=== PATIENT | female | born 1965 | race African-American/Black ===

== ENCOUNTER 2017-07-03 15:04 | Emergency (ER) | payer MEDICAID ==
--- OUTSIDE RECORDS SUMMARY | 2017-07-03 15:06 | XMS REPORT | Clinical Summary ---
:1965 Author Organization [facility] Address [address] [place] [address] Phone Care Team Providers Name Role Phone Unavailable Primary Care Provider Unavailable Allergies Active Allergy Reactions Severity Noted Date Comments Morphine Rash Low Sulfa (Sulfonamide Antibiotics) Rash Low Current Medications Prescription Sig. Disp. Refills Start Date End Date Status amLODIPine (NORVASC) Take 10 mg by Active 10 MG tablet mouth daily. metFORMIN Take 500 mg by Active (GLUCOPHAGE) 500 MG mouth 2 (two) tablet times daily with breakfast and dinner. DULoxetine Take 30 mg by Active (CYMBALTA) 30 MG mouth every capsule morning. DULoxetine Take 60 mg by Active (CYMBALTA) 60 MG mouth nightly. capsule aspirin 81 MG EC Take 81 mg by Active tablet mouth daily. atorvastatin Take 1 tablet (40 90 tablet 1 09/01/2015 08/31/2016 (LIPITOR) 40 MG mg total) by tablet mouth daily. Active Problems Problem Noted Date CVA (cerebral vascular accident) (HCC) 09/08/2015 Right-sided muscle weakness 09/01/2015 Aphasia 09/01/2015 Type 2 diabetes mellitus (HCC) 08/31/2015 HTN (hypertension) 08/31/2015 Metabolic syndrome 08/31/2015 Morbid obesity ([facility]) 08/31/2015 History of gastric surgery 08/31/2015 History of MA (myocardial infarction) 08/31/2015 H/O section 08/31/2015 Smoking history 08/31/2015 Acute CVA (cerebrovascular accident) ([facility]) 08/30/2015 Social History Tobacco Use Types Packs/Day Years Used Date Never Smoker Alcohol Use Drinks/Week oz/Week Comments No Sex Assigned at Date Recorded Not on file Last Filed Vital Signs Not on file Plan of Treatment Not on file Results RHYTHM STRIP - SCAN (11/22/2016 7:50 AM)after 07/02/2016
--- NOTE | 2017-07-03 15:47 | EKG ---
Test Date: 2017-07-03 Test Time: 15:30:56 Inventory Planner: TAJ MEASUREMENT RESULTS: Intervals: Rate: 67 [place]: 178 QRSD: 102 QT: 458 QTc: 483 [place]: P: 57 IL: 178 QRS: 0 T: 92 INTERPRETIVE STATEMENTS: Normal sinus rhythm Voltage criteria for left ventricular hypertrophy Non specific ST abnormality T wave abnormality, consider lateral ischemia Prolonged QT Abnormal ECG Compared to ECG 05/09/2017 16:43:22 no significant change from previous ECG Electronically Signed On 07-03-17 15:46:33 CDT by Jamal Alvarado
[2017-07-03 15:48] LABS: Absolute Lymphocytes (CBC) 2.3 K/uL (0.7-4.9); Absolute Monocytes 0.3 K/uL (0.1-1.3); Absolute Neutrophil 4.2 K/uL (1.8-8.0); Basophils % 0.9 % (0-1.3); Eosinophils % 1.6 % (0-4.4); Hematocrit 38.9 % (36.0-45.0); Lymphocytes % 32.4 % (15.3-44.8); MCV 84.7 fL (80-100)
[2017-07-03 15:56] LABS: Protime INR 1.06
[2017-07-03 15:57] LABS: Bicarbonate 23 mEq/L (21-31); Glucose Level 94 mg/dL (65-120); Potassium 3.8 mEq/L (3.6-5.0); Sodium Level 140 mEq/L (135-145)
[2017-07-03 16:01] LABS: BUN Blood Urea Nitrogen 13 mg/dL (6-20); Creatine Phosphokinase 176 IU/L (22-269)
--- NOTE | 2017-07-03 16:03 | RAD REPORT ---
EXAM DESCRIPTION: RAD - Chest Single View - 07/03/2017 3:42 pm CLINICAL HISTORY: Chest pain COMPARISON: May 09 TECHNIQUE: AP portable chest image was obtained 1536 hours . FINDINGS: Lungs are clear. Heart and vasculature are normal. No measurable pleural effusion and no p neumothorax. No gross bony abnormality seen. No acute aortic findings suspected. IMPRESSION: No acute cardiopulmonary process. No significant interval change.
[2017-07-03 16:06] LABS: CKMB Creatine Kinase MB 2.3 ng/ml (0.3-4.0)
[2017-07-03] MEDS ORDERED: NITROGLYCERIN 0.4 MG/TAB SL ONE (16:26)
[2017-07-03] MEDS ORDERED: ONDANSETRON 4 MG/2 ML VIAL ONE (16:27)
[2017-07-03] MEDS ORDERED: FENTANYL CITR 100 MCG/2 ML ONE (17:15)
--- NOTE | 2017-07-03 17:54 | ER ---
Nurse's Notes [facility] Name: Che Helton Age: 51 yrs Sex: Female : 1965 Arrival Date: 07/03/2017 Time: 15:08 Bed 30 Private MD: Diagnosis: Chest pain, unspecified Presentation: 07/03 15:12 Presenting complaint: Patient states: chest pain for the past 3 days with sob, worse ch when laying flat. Transition of care: patient was not received from another setting of care. Onset of symptoms was June 30, 2017. Initial Sepsis Screen: Does the patient meet any 2 criteria? No. Patient's initial sepsis screen is negative. Does the patient have a suspected source of infection? No. Patient's initial sepsis screen is negative. Care prior to arrival: None. 15:12 Method Of Arrival: Ambulatory 15:12 Acuity: NELY 3 ch Triage Assessment: 15:15 General: Appears in no apparent distress. comfortable, Behavior is calm, cooperative, ch appropriate for age. Pain: Complains of pain in chest. 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 ch Historical: - Allergies: 15:15 Morphine; ch 15:15 Sulfa (Sulfonamide Antibiotics); ch - Home Meds: 15:15 amlodipine 10 mg tab 1 tab once daily [Active]; metformin 500 mg Oral tab 1 tab 2 times ch per day [Active]; aspirin 81 mg Oral chew 1 tab once daily [Active]; Cymbalta oral 30mg in the morning, 60mg at night oral [Active]; Plavix oral [Active]; carvedilol oral oral [Active]; multivitamin with minerals oral oral [Active]; b 12 [Active]; - PMHx: 15:15 ADD/ADHD; Anxiety; Depression; Diabetes - NIDDM; Hyperlipidemia; Hypertension; ch Myocardial infarction; stroke; 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 - Social history:: Smoking status: Patient uses tobacco products, smokes one-half pack cigarettes per day. Screenin:28 Abuse screen: Denies threats or abuse. Nutritional screening: No deficits noted. mb3 Tuberculosis screening: No symptoms or risk factors identified. Fall Risk IV access (20 points). Total Faulkner Fall Scale indicates No Risk (0-24 pts). Assessment: 16:15 General: Appears in no apparent distress. comfortable, Behavior is calm, cooperative, mb3 appropriate for age. Pain: Complains of pain in chest Pain radiates to left arm Pain currently is 10 out of 10 on a pain scale. Pain began 2-3 days ago. Neuro: No deficits noted. Cardiovascular: Reports chest pain, Heart tones S1 S2 present Capillary refill < 3 seconds Pulses are all present. Rhythm is regular Chest pain. Respiratory: No deficits noted. Airway is patent Breath sounds are clear bilaterally. GI: Abdomen is flat, Bowel sounds present X 4 quads. Abd is soft Abd is non tender X 4 quads Reports nausea. : No signs and/or symptoms were reported regarding the genitourinary system. EENT: No signs and/or symptoms were reported regarding the EENT system. 16:15 Musculoskeletal: No signs and/or symptoms reported regarding the musculoskeletal system.mb3 18:03 Reassessment: Patient and/or family updated on plan of care and expected duration. Pain mb3 level reassessed. Patient is alert, oriented x 3, equal unlabored respirations, skin warm/dry/pink. Patient states feeling better. Patient states symptoms have improved. Vital Signs: 15:15 BP 151 / 79; Pulse 72; Resp 16; Temp 97.2; Pulse Ox 100% on R/A; Weight 95.25 kg; ch Height 5 ft. 3 in. (160.02 cm); Pain 10/10; 16:30 BP 126 / 78; Pulse 83; Resp 16; Pulse Ox 100% ; Pain 10/10; mb3 17:26 BP 140 / 87; Pulse 78; Resp 16; Pulse Ox 97% on R/A; mb3 18:03 BP 139 / 62; Pulse 72; Resp 18; Pulse Ox 97% on R/A; Pain 3/10; mb3 15:15 Body Mass Index 37.20 (95.25 kg, 160.02 cm) ED Course: 15:08 Patient arrived in ED. sb2 15:13 Triage completed. 15:15 Arm band placed on left wrist. Patient placed in an exam room, on a stretcher. 15:21 Berta Morgan FNP-C is [facility]. kb 15:21 Michele Adams MD is Attending Physician. kb 15:30 Patient has correct armband on for positive identification. Placed in gown. Bed in low mb3 position. Call light in reach. Side rails up X 1. director biologics on. Pulse ox on. NIBP on. 15:41 X-ray completed. Portable x-ray completed in exam room. Patient tolerated procedure jb2 well. 15:42 XRAY Chest (1 view) In Process Unspecified. EDMS 15:49 Gentry Vernon, RN is Primary Nurse. mb3 16:15 Inserted saline lock: 20 gauge in left forearm, using aseptic technique. Patient mb3 maintains SpO2 saturation greater than 95% on room air. 17:25 EKG done, by alternative energy technician. reviewed by Michele Adams MD. dt2 18:26 No provider procedures requiring assistance completed. mb3 18:26 IV discontinued, intact, bleeding controlled, No redness/swelling at site. Pressure mb3 dressing applied. Administered Medications: 16:27 Drug: Nitroglycerin 0.4 mg Route: Sublingual; mb3 18:05 Follow up: Response: No adverse reaction mb3 16:30 Drug: Zofran 4 mg Route: IVP; Site: left forearm; mb3 18:05 Follow up: Response: No adverse reaction; Nausea is decreased mb3 17:25 Not Given (Patient Refused): Nitroglycerin 0.4 mg Sublingual once mb3 17:25 Drug: fentaNYL (PF) 50 mcg Route: IVP; Site: left forearm; mb3 18:04 Follow up: Response: No adverse reaction; Pain is decreased mb3 Outcome: 17:53 Discharge ordered by . kb 18:27 Discharged to home ambulatory, with family. mb3 18:27 Condition: stable 18:27 Discharge instructions given to patient, family, Instructed on discharge instructions, follow up and referral plans. Demonstrated understanding of instructions, follow-up care. 18:27 Patient left the ED. mb3 Signatures: Dispatcher [employer] EDMS Berta Morgan, YONATHAN ALVES-Sena Grimes, RN RN Lei Jay jb2 Symone Paez sb2 Jackeline Kaplan dt2 Gentry Vernon, RN RN mb3
--- NOTE | 2017-07-03 17:54 | EDPHYS ---
Physician Documentation [facility] Name: Che Helton Age: 51 yrs Sex: Female : 1965 Arrival Date: 07/03/2017 Time: 15:08 Bed 30 Private MD: ED Physician Michele Adams HPI: 07/03 17:00 This 51 yrs old Black Female presents to ER via Ambulatory with complaints of Chest kb Pain, Shortness Of Breath. 17:00 The patient or guardian reports chest pain that is located primarily in the substernal kb area. Onset: 3 day(s) ago, and became worse today. The pain does not radiate. Associated signs and symptoms: Pertinent positives: shortness of breath. The chest pain is described as aching. Duration: The patient or guardian reports a single episode, that is still ongoing. Modifying factors: The symptoms are alleviated by nothing. the symptoms are aggravated by laying flat. Severity of pain: At its worst the pain was moderate in the emergency department the pain is unchanged. The patient has not experienced similar symptoms in the past. The patient has not recently seen a physician. 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 ch Historical: - Allergies: 15:15 Morphine; ch 15:15 Sulfa (Sulfonamide Antibiotics); ch - Home Meds: 15:15 amlodipine 10 mg tab 1 tab once daily [Active]; metformin 500 mg Oral tab 1 tab 2 times ch per day [Active]; aspirin 81 mg Oral chew 1 tab once daily [Active]; Cymbalta oral 30mg in the morning, 60mg at night oral [Active]; Plavix oral [Active]; carvedilol oral oral [Active]; multivitamin with minerals oral oral [Active]; b 12 [Active]; - PMHx: 15:15 ADD/ADHD; Anxiety; Depression; Diabetes - NIDDM; Hyperlipidemia; Hypertension; ch Myocardial infarction; stroke; 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 - Social history:: Smoking status: Patient uses tobacco products, smokes one-half pack cigarettes per day. ROS: 16:59 Constitutional: Negative for fever, chills, and weight loss, Abdomen/GI: Negative for kb abdominal pain, nausea, vomiting, diarrhea, and constipation, Back: Negative for injury and pain, : Negative for injury, bleeding, discharge, and swelling, MS/Extremity: Negative for injury and deformity, Skin: Negative for injury, rash, and discoloration, Neuro: Negative for headache, weakness, numbness, tingling, and seizure. 16:59 Cardiovascular: Positive for chest pain, Negative for edema, orthopnea, palpitations, paroxysmal nocturnal dyspnea. 16:59 Respiratory: Positive for shortness of breath, Negative for cough, dyspnea on exertion, hemoptysis, orthopnea, pleurisy, sputum production, wheezing. Exam: 16:59 Constitutional: This is a well developed, well nourished patient who is awake, alert, kb and in no acute distress. Head/Face: Normocephalic, atraumatic. ENT: Nares patent. No nasal discharge, no septal abnormalities noted. Tympanic membranes are normal and external auditory canals are clear. Oropharynx with no redness, swelling, or masses, exudates, or evidence of obstruction, uvula midline. Mucous membranes moist. Neck: Trachea midline, no thyromegaly or masses palpated, and no cervical lymphadenopathy. Supple, full range of motion without nuchal rigidity, or vertebral point tenderness. No Meningismus. Chest/axilla: Normal chest wall appearance and motion. Nontender with no deformity. No lesions are appreciated. Cardiovascular: Regular rate and rhythm with a normal S1 and S2. No gallops, murmurs, or rubs. Normal PMI, no JVD. No pulse deficits. Respiratory: Lungs have equal breath sounds bilaterally, clear to auscultation and percussion. No rales, rhonchi or wheezes noted. No increased work of breathing, no retractions or nasal flaring. Abdomen/GI: Soft, non-tender, with normal bowel sounds. No distension or tympany. No guarding or rebound. No evidence of tenderness throughout. Skin: Warm, dry with normal turgor. Normal color with no rashes, no lesions, and no evidence of cellulitis. MS/ Extremity: Pulses equal, no cyanosis. Neurovascular intact. Full, normal range of motion. Neuro: Awake and alert, GCS 15, oriented to person, place, time, and situation. Cranial nerves II-XII grossly intact. Motor strength 5/5 in all extremities. Sensory grossly intact. Cerebellar exam normal. Normal gait. Vital Signs: 15:15 BP 151 / 79; Pulse 72; Resp 16; Temp 97.2; Pulse Ox 100% on R/A; Weight 95.25 kg; ch Height 5 ft. 3 in. (160.02 cm); Pain 10/10; 16:30 BP 126 / 78; Pulse 83; Resp 16; Pulse Ox 100% ; Pain 10/10; mb3 17:26 BP 140 / 87; Pulse 78; Resp 16; Pulse Ox 97% on R/A; mb3 18:03 BP 139 / 62; Pulse 72; Resp 18; Pulse Ox 97% on R/A; Pain 3/10; mb3 15:15 Body Mass Index 37.20 (95.25 kg, 160.02 cm) ch MDM: 15:21 Patient medically screened. kb 16:59 Data reviewed: vital signs, nurses notes. Data interpreted: Pulse oximetry: on room air kb is 100 %. Interpretation: normal. 17:01 The patient was not given aspirin in the Emergency Department. Patient reports taking kb aspirin within the past 24 hours. Counseling: I had a detailed discussion with the patient and/or guardian regarding: the historical points, exam findings, and any diagnostic results supporting the discharge/admit diagnosis, lab results, radiology results, the need for further work-up and treatment in the hospital. ED course: Pt would rather go home, does not want to be admitted. Will repeat EKG and cardiac enzymes. . 17:54 ED course: Pt reports that she feels better after fentanyl.. kb 07/03 15:22 Order name: Basic Metabolic Panel kb 07/03 15:22 Order name: BNP kb 07/03 15:22 Order name: CBC with Diff; Complete Time: 15:50 kb 07/03 15:22 Order name: Ckmb; Complete Time: 16:07 kb 07/03 15:22 Order name: CPK; Complete Time: 16:07 kb 07/03 15:22 Order name: Magnesium; Complete Time: 16:07 kb 07/03 15:22 Order name: PT-INR; Complete Time: 16:12 kb 07/03 15:22 Order name: Ptt, Activated; Complete Time: 16:12 kb 07/03 15:22 Order name: Troponin (emerg Dept Use Only); Complete Time: 16:05 kb 07/03 15:22 Order name: XRAY Chest (1 view); Complete Time: 16:04 kb 07/03 15:23 Order name: Basic Metabolic Panel; Complete Time: 16:07 EDMS 07/03 15:23 Order name: BNP B-Type Natriuretic Peptide; Complete Time: 16:20 EDMS 07/03 17:03 Order name: Troponin (emerg Dept Use Only); Complete Time: 17:53 kb 07/03 15:22 Order name: EKG; Complete Time: 15:23 kb 07/03 15:22 Order name: Cardiac monitoring; Complete Time: 16:00 kb 07/03 15:22 Order name: EKG - Nurse/Tech; Complete Time: 16:00 kb 07/03 15:22 Order name: IV Saline Lock; Complete Time: 15:59 kb 07/03 15:22 Order name: Labs collected and sent; Complete Time: 15:59 kb 07/03 15:22 Order name: O2 Per Protocol; Complete Time: 15:59 kb 07/03 15:22 Order name: O2 Sat Monitoring; Complete Time: 15:59 kb 07/03 15:22 Order name: Urine Dipstick-Ancillary (obtain specimen) kb 07/03 17:03 Order name: EKG; Complete Time: 17:03 kb 07/03 17:03 Order name: EKG - Nurse/Tech; Complete Time: 17:26 kb Administered Medications: 16:27 Drug: Nitroglycerin 0.4 mg Route: Sublingual; mb3 18:05 Follow up: Response: No adverse reaction mb3 16:30 Drug: Zofran 4 mg Route: IVP; Site: left forearm; mb3 18:05 Follow up: Response: No adverse reaction; Nausea is decreased mb3 17:25 Not Given (Patient Refused): Nitroglycerin 0.4 mg Sublingual once mb3 17:25 Drug: fentaNYL (PF) 50 mcg Route: IVP; Site: left forearm; mb3 18:04 Follow up: Response: No adverse reaction; Pain is decreased mb3 Disposition: 22:34 Co-signature as Attending Physician, Michele Adams MD I agree with the assessment and kdr plan of care. Disposition: 07/03/17 17:53 Discharged to Home. Impression: Chest pain, unspecified. - Condition is Stable. - Discharge Instructions: Nonspecific Chest Pain, [id number]. - Medication Reconciliation Form, Thank You Letter, Antibiotic Education, Prescription Opioid Use form. - Follow up: Emergency Department; When: As needed; Reason: Worsening of condition. Follow up: Private Physician; When: 2 - 3 days; Reason: Recheck today's complaints, Continuance of care, Re-evaluation by your physician. Signatures: Dispatcher [employer] EDWY Berta Morgan, KETTLE OPERATOR HEAD-C KETTLE OPERATOR HEAD-Ckb Sena Beck, RN RN Michele Adams MD MD [facility] Gentry Vernon RN RN mb3 Corrections: (The following items were deleted from the chart) 18:27 17:53 07/03/2017 17:53 Discharged to Home. Impression: Chest pain, unspecified. mb3 Condition is Stable. Forms are Medication Reconciliation Form, Thank You Letter, Antibiotic Education, Prescription Opioid Use. Follow up: Emergency Department; When: As needed; Reason: Worsening of condition. Follow up: Private Physician; When: 2 - 3 days; Reason: Recheck today's complaints, Continuance of care, Re-evaluation by your physician. kb
[2017-07-03 18:40] VITALS: TEMP 97.2
[2017-07-03 18:43] VITALS: O2SAT 97
[2017-07-03 18:45] VITALS: BP 139/62
--- NOTE | 2017-07-04 06:06 | EKG ---
Test Date: 2017-07-03 Test Time: 17:11:28 Economics Faculty Member: TAJ MEASUREMENT RESULTS: Intervals: Rate: 73 [place]: 170 QRSD: 80 QT: 452 QTc: 497 [place]: P: 63 [place]: 170 QRS: -5 T: 81 INTERPRETIVE STATEMENTS: Normal sinus rhythm Voltage criteria for left ventricular hypertrophy Prolonged QT Abnormal ECG Compared to ECG 07/03/2017 15:30:56 ST (T wave) deviation no longer present T-wave abnormality no longer present Possible ischemia no longer present Electronically Signed On 07-04-17 06:05:24 CDT by Jamal Alvarado
== END 2017-07-03 18:27 | disposition home or self-care (01) ==
LOC: ER 15:04
DX: R07.9 Chest pain, unspecified (principal); I10 Essential (primary) hypertension; E11.9 Type 2 diabetes mellitus without complications; E78.5 Hyperlipidemia, unspecified; I25.2 Old myocardial infarction; F17.210 Nicotine dependence, cigarettes, uncomplicated; F41.9 Anxiety disorder, unspecified; F32.9 Major depressive disorder, single episode, unspecified; Z79.01 Long term (current) use of anticoagulants; Z79.82 Long term (current) use of aspirin; Z88.2 Allergy status to sulfonamides; Z88.5 Allergy status to narcotic agent
CPT/HCPCS: 36415; 71045; 80048; 82550; 82553; 83735; 83880; 84484; 85025; 85610; 85730; 93005; 96374; 96375; 99285; J2405; J3010

== ENCOUNTER 2017-08-21 21:43 | Emergency (ER) | payer MEDICAID ==
--- OUTSIDE RECORDS SUMMARY | 2017-08-21 21:45 | XMS REPORT | Clinical Summary ---
:1965 Author Organization [facility] Address [address] [place] [address] Phone Care Team Providers Name Role Phone [...] (hypertension) 08/31/2015 Metabolic syndrome 08/31/2015 Morbid obesity ([facility]) 08/31/2015 History of gastric surgery 08/31/2015 History of [place] (myocardial infarction) 08/31/2015 H/O section 08/31/2015 Smoking history 08/31/2015 Acute CVA (cerebrovascular accident) ([facility]) 08/30/2015 Social History Tobacco Use Types Packs/Day Years Used Date Never Smoker Alcohol Use Drinks/Week oz/Week Comments No Sex Assigned at Date Recorded Not on file Last Filed Vital Signs Not on file Plan of Treatment Not on file Results RHYTHM STRIP - SCAN (11/22/2016 7:50 AM)after 08/20/2016
[2017-08-21 22:37] LABS: Absolute Lymphocytes (CBC) 3.4 K/uL (0.7-4.9); Absolute Monocytes 0.5 K/uL (0.1-1.3); Absolute Neutrophil 9.3 K/uL (1.8-8.0); Basophils % 0.8 % (0-1.3); Eosinophils % 0.7 % (0-4.4); Hematocrit 38.4 % (36.0-45.0); Lymphocytes % 25.3 % (15.3-44.8); MCH 28.3 pg (27.0-35.0); MCV 84.7 fL (80-100); MPV 9.2 fL (7.6-11.3); RBC Red Blood Cell Count 4.54 M/uL (3.86-4.86)
[2017-08-21 22:38] LABS: Protime INR 1.03
[2017-08-21 22:49] LABS: Potassium 3.9 mmol/L (3.5-5.1)
[2017-08-21] MEDS ORDERED: NA CHLORIDE 0.9% 50 ML IV ONE (22:57)
[2017-08-21] MEDS ORDERED: MORPHINE 4 MG/ML SYR ONE (22:57)
--- NOTE | 2017-08-22 01:35 | EDPHYS ---
Physician Documentation [facility] Name: Che Helton Age: 51 yrs Sex: Female : 1965 Arrival Date: 08/21/2017 Time: 21:46 Bed 28 Private MD: Davis Cosme E ED Physician Tom Domínguez HPI: 08/22 01:27 This 51 yrs old Black Female presents to ER via EMS with complaints of Chest Pain > 30 gs y/o. 01:27 The patient or guardian reports chest pain that is located primarily in the anterior gs chest wall. Onset: just prior to arrival, 1 hour(s) ago. The pain does not radiate. Associated signs and symptoms: Pertinent negatives: diaphoresis, nausea, vomiting. The chest pain is described as a heaviness. Duration: The patient or guardian reports multiple episodes, that are intermittent, that wax and wane, with no pattern. Severity of pain: At its worst the pain was moderate in the emergency department the pain has improved markedly. The patient has experienced similar episodes in the past, a few times, says recent cath negative. 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 - Hysterectomy mb3 Historical: - Allergies: 21:54 Sulfa (Sulfonamide Antibiotics); mb3 - Home Meds: 21:54 amlodipine 25 mg tab 1 tab once daily [Active]; aspirin 81 mg Oral chew 1 tab once mb3 daily [Active]; Cymbalta 30mg in the morning, 60mg at night Oral [Active]; multivitamin with minerals Oral [Active]; metformin 500 mg Oral tab 1 tab 2 times per day [Active]; Plavix 150 mg Oral 1 tab once daily [Active]; - PMHx: 21:54 ADD/ADHD; Anxiety; Depression; Diabetes - NIDDM; Hyperlipidemia; Hypertension; stroke; mb3 Myocardial infarction; - PSHx: 21:54 Hysterectomy; Gastric Bypass; mb3 - Immunization history:: Adult Immunizations up to date. - Social history:: Smoking status: Patient uses tobacco products, smokes one-half pack cigarettes per day. - Ebola Screening: : Patient denies travel to an Ebola-affected area in the 21 days before illness onset No symptoms or risks identified at this time. ROS: 08/22 01:27 All other systems are negative. gs Exam: 01:27 Head/Face: Normocephalic, atraumatic. Eyes: Pupils equal round and reactive to light, gs extra-ocular motions intact. Lids and lashes normal. Conjunctiva and sclera are non-icteric and not injected. Cornea within normal limits. Periorbital areas with no swelling, redness, or edema. ENT: Nares patent. No nasal discharge, no septal abnormalities noted. Tympanic membranes are normal and external auditory canals are clear. Oropharynx with no redness, swelling, or masses, exudates, or evidence of obstruction, uvula midline. Mucous membranes moist. Neck: Trachea midline, no thyromegaly or masses palpated, and no cervical lymphadenopathy. Supple, full range of motion without nuchal rigidity, or vertebral point tenderness. No Meningismus. Chest/axilla: Normal chest wall appearance and motion. Nontender with no deformity. No lesions are appreciated. Cardiovascular: Regular rate and rhythm with a normal S1 and S2. No gallops, murmurs, or rubs. Normal PMI, no JVD. No pulse deficits. Respiratory: Lungs have equal breath sounds bilaterally, clear to auscultation and percussion. No rales, rhonchi or wheezes noted. No increased work of breathing, no retractions or nasal flaring. Abdomen/GI: Soft, non-tender, with normal bowel sounds. No distension or tympany. No guarding or rebound. No evidence of tenderness throughout. Back: No spinal tenderness. No costovertebral tenderness. Full range of motion. Skin: Warm, dry with normal turgor. Normal color with no rashes, no lesions, and no evidence of cellulitis. MS/ Extremity: Pulses equal, no cyanosis. Neurovascular intact. Full, normal range of motion. Neuro: Awake and alert, GCS 15, oriented to person, place, time, and situation. Cranial nerves II-XII grossly intact. Motor strength 5/5 in all extremities. Sensory grossly intact. Cerebellar exam normal. Normal gait. : Constitutional: The patient appears alert, awake. : ECG was reviewed by the Attending Physician. Vital Signs: 08/21 21:55 BP 119 / 66; Pulse 66; Resp 18; Temp 98.6; Pulse Ox 99% on R/A; Weight 97.52 kg; Height mb3 5 ft. 3 in. (160.02 cm); Pain 9/10; 23:40 BP 128 / 67; Pulse 58; Resp 18; Pulse Ox 100% on R/A; 3 08/22 00:22 BP 141 / 67; Pulse 58; Resp 18; Pulse Ox 100% on R/A; 3 01:50 BP 142 / 69; Pulse 62; Resp 18; Pulse Ox 100% on R/A; Pain 0/10; 3 08/21 21:55 Body Mass Index 38.09 (97.52 kg, 160.02 cm) [facility] MDM: 08/21 22:03 Patient medically screened. 08/22 01:27 Differential diagnosis: abnormal EKG, acute myocardial infarction, chest wall pain, gs pleurisy. Data reviewed: vital signs, nurses notes. Response to treatment: the patient's symptoms have resolved after treatment, and as a result, I will discharge patient. 08/21 22:04 Order name: Basic Metabolic Panel; Complete Time: 23:14 08/21 22:04 Order name: CBC with Diff; Complete Time: 23:14 08/21 22:04 Order name: PT-INR; Complete Time: 23:14 08/21 22:04 Order name: Troponin (emerg Dept Use Only); Complete Time: 23:14 08/21 22:04 Order name: XRAY Chest (1 view) 08/21 23:36 Order name: Troponin (emerg Dept Use Only); Complete Time: 01:20 08/21 22:04 Order name: EKG; Complete Time: 22:04 08/21 22:04 Order name: Cardiac monitoring; Complete Time: 22:14 08/21 22:04 Order name: EKG - Nurse/Tech; Complete Time: 22:14 08/21 22:04 Order name: IV Saline Lock; Complete Time: 22:14 08/21 22:04 Order name: Labs collected and sent; Complete Time: 22:14 08/21 22:04 Order name: O2 Per Protocol; Complete Time: 22:14 08/21 22:04 Order name: O2 Sat Monitoring; Complete Time: 22:14 EC: Rate is 69 beats/min. Rhythm is regular. [place] interval is normal. QRS interval is normal. QT interval is prolonged. Clinical impression: NSR w/ Non-specific ST/T Changes. No change from previous ECG on July 03, 2017. Interpreted by me. Administered Medications: 08/21 23:02 Drug: morphine 4 mg Route: IVP; Site: left forearm; mb3 08/22 01:49 Follow up: Response: No adverse reaction mb3 Disposition: 08/22/17 01:34 Discharged to Home. Impression: Chest pain, unspecified. - Condition is Stable. - Discharge Instructions: Nonspecific Chest Pain, Managing Your High Blood Pressure. - Medication Reconciliation Form, Thank You Letter, Antibiotic Education, Prescription Opioid Use, Family Work Release form. - Follow up: Private Physician; When: 1 - 2 days; Reason: Re-evaluation by your physician. Signatures: Dispatcher [employer] EDMS Tom Domínguez MD MD Gentry Vernon RN RN mb3 Corrections: (The following items were deleted from the chart) 01:52 01:34 08/22/2017 01:34 Discharged to Home. Impression: Chest pain, unspecified. mb3 Condition is Stable. Forms are Medication Reconciliation Form, Thank You Letter, Antibiotic Education, Prescription Opioid Use. Follow up: Private Physician; When: 1 - 2 days; Reason: Re-evaluation by your physician. gs
--- NOTE | 2017-08-22 01:35 | ER ---
Nurse's Notes [facility] Name: Che Helton Age: 51 yrs Sex: Female : 1965 Arrival Date: 08/21/2017 Time: 21:46 Bed 28 Private MD: Davis Cosme E Diagnosis: Chest pain, unspecified Presentation: 08/21 21:47 Presenting complaint: Patient states: Chest pain started at 2100, radiating to left mb3 arm, does c/o nausea at the time of onset, ems gave meds. Transition of care: patient was not received from another setting of care. Onset of symptoms was August 21, 2017 at 21:00. Risk Assessment: Do you want to hurt yourself or someone else? Patient reports no desire to harm self or others. Initial Sepsis Screen: Does the patient meet any 2 criteria? No. Patient's initial sepsis screen is negative. Does the patient have a suspected source of infection? No. Patient's initial sepsis screen is negative. Care prior to arrival: Medication(s) given: zofran 4 mg, Morphine 4 mg IV initiated. 20 GA, in the left forearm, Glucose check: 111. 21:47 Method Of Arrival: EMS: [facility] mb3 21:47 Acuity: NELY 3 mb3 Triage Assessment: 21:57 General: Appears uncomfortable, obese, well groomed, Behavior is calm, cooperative, mb3 appropriate for age. Pain: Complains of pain in chest Pain radiates to left arm Pain currently is 9 out of 10 on a pain scale. EENT: No signs and/or symptoms were reported regarding the EENT system. Neuro: Level of Consciousness is awake, alert, obeys commands, Oriented to person, place, time, situation, Appropriate for age. Cardiovascular: Reports chest pain, nausea, Heart tones S1 S2 present Capillary refill < 3 seconds Patient's skin is warm and dry. Pulses are all present. Rhythm is regular. Respiratory: No deficits noted. Airway is patent Respiratory effort is even, unlabored, Respiratory pattern is regular, symmetrical, Breath sounds are clear bilaterally. GI: Abdomen is round obese, Bowel sounds present X 4 quads. Abd is soft and non tender X 4 quads. Reports nausea. : No signs and/or symptoms were reported regarding the genitourinary system. Derm: No signs and/or symptoms reported regarding the dermatologic system. Musculoskeletal: No signs and/or symptoms reported regarding the musculoskeletal system. 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 - Hysterectomy mb3 Historical: - Allergies: 21:54 Sulfa (Sulfonamide Antibiotics); mb3 - Home Meds: 21:54 amlodipine 25 mg tab 1 tab once daily [Active]; aspirin 81 mg Oral chew 1 tab once mb3 daily [Active]; Cymbalta 30mg in the morning, 60mg at night Oral [Active]; multivitamin with minerals Oral [Active]; metformin 500 mg Oral tab 1 tab 2 times per day [Active]; Plavix 150 mg Oral 1 tab once daily [Active]; - PMHx: 21:54 ADD/ADHD; Anxiety; Depression; Diabetes - NIDDM; Hyperlipidemia; Hypertension; stroke; mb3 Myocardial infarction; - PSHx: 21:54 Hysterectomy; Gastric Bypass; mb3 - Immunization history:: Adult Immunizations up to date. - Social history:: Smoking status: Patient uses tobacco products, smokes one-half pack cigarettes per day. - Ebola Screening: : Patient denies travel to an Ebola-affected area in the 21 days before illness onset No symptoms or risks identified at this time. Screenin:07 Abuse screen: Denies threats or abuse. Nutritional screening: No deficits noted. mb3 Tuberculosis screening: No symptoms or risk factors identified. Fall Risk None identified. Assessment: 22:04 Reassessment: see triage assessment. Pain: Pain began suddenly, 1 hour ago. mb3 23:45 Reassessment: Patient and/or family updated on plan of care and expected duration. Pain mb3 level reassessed. Patient is alert, oriented x 3, equal unlabored respirations, skin warm/dry/pink. Patient states feeling better. Patient states symptoms have improved. 08/22 00:23 Reassessment: Patient and/or family updated on plan of care and expected duration. Pain mb3 level reassessed. Patient is alert, oriented x 3, equal unlabored respirations, skin warm/dry/pink. Patient states symptoms have improved. Vital Signs: 08/21 21:55 BP 119 / 66; Pulse 66; Resp 18; Temp 98.6; Pulse Ox 99% on R/A; Weight 97.52 kg; Height mb3 5 ft. 3 in. (160.02 cm); Pain 9/10; 23:40 BP 128 / 67; Pulse 58; Resp 18; Pulse Ox 100% on R/A; mb3 08/22 00:22 BP 141 / 67; Pulse 58; Resp 18; Pulse Ox 100% on R/A; mb3 01:50 BP 142 / 69; Pulse 62; Resp 18; Pulse Ox 100% on R/A; Pain 0/10; mb3 08/21 21:55 Body Mass Index 38.09 (97.52 kg, 160.02 cm) mb3 ED Course: 08/21 21:46 Patient arrived in ED. mb3 21:50 Triage completed. mb3 22:03 Tom Domínguez MD is Attending Physician. gs 22:07 Patient has correct armband on for positive identification. Bed in low position. Call mb3 light in reach. Side rails up X 1. personnel monitor on. Pulse ox on. NIBP on. 22:07 Maintain EMS IV. Dressing intact. Good blood return noted. Site clean \T\ dry. Gauge \T\ mb 3 site: 20 ga to left forearm. Patient maintains SpO2 saturation greater than 95% on room air. 22:13 Gentry Vernon, JULIEN is Primary Nurse. mb3 22:14 XRAY Chest (1 view) Sent. mb3 22:18 Davis Cosme MD is Private Physician. am2 22:18 X-ray completed. Portable x-ray completed in exam room. Patient tolerated procedure kc2 well. 22:19 XRAY Chest (1 view) In Process Unspecified. EDUT 08/22 01:51 Arm band placed on right wrist. mb3 01:51 No provider procedures requiring assistance completed. IV discontinued, intact, mb3 bleeding controlled, No redness/swelling at site. Pressure dressing applied. Administered Medications: 08/21 23:02 Drug: morphine 4 mg Route: IVP; Site: left forearm; mb3 08/22 01:49 Follow up: Response: No adverse reaction mb3 Outcome: 01:34 Discharge ordered by . gs 01:49 Discharged to home ambulatory, with family. mb3 01:49 Condition: stable 01:49 Discharge instructions given to patient, Instructed on discharge instructions, follow up and referral plans. Demonstrated understanding of instructions, follow-up care. 01:52 Patient left the ED. mb3 Signatures: Dispatcher [employer] EDUT Senia Manzanares kc2 Katey Donis am2 Tom Domínguez MD MD gs Gnetry Vernon, JULIEN RN mb3
[2017-08-22 01:55] VITALS: TEMP 98.6
[2017-08-22 01:57] VITALS: O2SAT 100
[2017-08-22 01:59] VITALS: BP 142/69
--- NOTE | 2017-08-22 06:54 | EKG ---
Test Date: 2017-08-21 Test Time: 21:46:07 Business Services Director: MERRILL MEASUREMENT RESULTS: Intervals: Rate: 69 CA: 152 QRSD: 90 QT: 458 QTc: 490 Dresher: P: 58 CA: 152 QRS: -10 T: 95 INTERPRETIVE STATEMENTS: Normal sinus rhythm Possible Left atrial enlargement Left ventricular hypertrophy T wave abnormality, consider lateral ischemia Abnormal ECG Compared to ECG 07/03/2017 17:11:28 T-wave abnormality now present Possible ischemia now present Prolonged QT interval no longer present Electronically Signed On 08-22-17 06:54:06 CDT by Jamal Alvarado
--- NOTE | 2017-08-22 08:14 | RAD REPORT ---
EXAM DESCRIPTION: RAD - Chest Single View - 08/21/2017 10:20 pm CLINICAL HISTORY: Chest pain radiating to the left arm COMPARISON: July 03 TECHNIQUE: AP portable chest image was obtained 2208 hours . FINDINGS: Lungs are clear. Heart is upper normal. Pulmonary vasculature within normal limits. Heart size is fractionally increased over the comparison. No measurable pleural effusion and no pneumothora x. No gross bony abnormality seen. No acute aortic findings suspected. IMPRESSION: No acute cardiopulmonary process. Heart size is fractionally increased over comparison. No other findings of failure or volume overload .
== END 2017-08-22 01:52 | disposition home or self-care (01) ==
LOC: ER 21:43
DX: R07.9 Chest pain, unspecified (principal); Z88.2 Allergy status to sulfonamides; I25.2 Old myocardial infarction; F17.210 Nicotine dependence, cigarettes, uncomplicated; I10 Essential (primary) hypertension; E11.9 Type 2 diabetes mellitus without complications; Z79.84 Long term (current) use of oral hypoglycemic drugs; E78.5 Hyperlipidemia, unspecified
CPT/HCPCS: 36415; 71045; 80048; 84484; 85025; 85610; 93005; 96374; 99285

== ENCOUNTER 2017-11-04 19:37 | Observation (INO) | payer MEDICAID ==
--- OUTSIDE RECORDS SUMMARY | 2017-11-04 19:39 | XMS REPORT | Clinical Summary ---
:1965 Author Organization [facility] Address [address] [place] [address] Phone Care Team Providers Name Role Phone Unavailable Primary Care Provider Unavailable Allergies Active Allergy Reactions Severity Noted Date Comments Morphine Rash Low Sulfa (Sulfonamide Antibiotics) Rash Low Current Medications Prescription Sig. Disp. Refills Start Date End Date Status amLODIPine (NORVASC) 10 Take 10 mg by mouth Active MG tablet daily. metFORMIN (GLUCOPHAGE) Take 500 mg by mouth Active 500 MG tablet 2 (two) times daily with breakfast and dinner. DULoxetine (CYMBALTA) 30 Take 30 mg by mouth Active MG capsule every morning. DULoxetine (CYMBALTA) 60 Take 60 mg by mouth Active MG capsule nightly. aspirin 81 MG EC tablet Take 81 mg by mouth Active daily. Active Problems Problem Noted Date CVA (cerebral vascular accident) (HCC) 09/08/2015 Right-sided muscle weakness 09/01/2015 Aphasia 09/01/2015 Type 2 diabetes mellitus (HCC) 08/31/2015 HTN (hypertension) 08/31/2015 Metabolic syndrome 08/31/2015 Morbid obesity (HCC) 08/31/2015 History of gastric surgery 08/31/2015 History of W[place] (myocardial infarction) 08/31/2015 H/O section 08/31/2015 Smoking history 08/31/2015 Acute CVA (cerebrovascular accident) (HCC) 08/30/2015 Social History Tobacco Use Types Packs/Day Years Used Date Never Smoker Alcohol Use Drinks/Week oz/Week Comments No Sex Assigned at Date Recorded Not on file Last Filed Vital Signs Not on file Plan of Treatment Not on file Results RHYTHM STRIP - SCAN (11/22/2016 7:50 AM)after 11/03/2016
[2017-11-04] MEDS ORDERED: ONDANSETRON 4 MG/2 ML VIAL ONE (20:53)
[2017-11-04] MEDS ORDERED: MORPHINE 4 MG/ML SYR ONE (20:53)
--- NOTE | 2017-11-04 21:00 | RAD REPORT ---
EXAM DESCRIPTION: RAD - Chest Single View - 11/04/2017 8:54 pm CLINICAL HISTORY: Cough;Chest pain Chest pain. COMPARISON: Chest Single View dated 08/21/2017; Chest Single View dated 07/03/2017; Chest Single View d ated 05/09/2017; Chest Single View dated 03/12/2017 FINDINGS: Portable technique limits examination quality. Ill-defined opacity is present in the right lung base, suspicious for developing pneumonia. The heart is mildly prominent size. No displaced fractures. IMPRESSION: Mild right lung base pulmonary opacity is suspicious for a developing pneumonia.
[2017-11-04 21:02] LABS: Absolute Lymphocytes (CBC) 2.3 K/uL (0.7-4.9); Absolute Monocytes 0.3 K/uL (0.1-1.3); Absolute Neutrophil 4.1 K/uL (1.8-8.0); Basophils % 0.7 % (0-1.3); Eosinophils % 2.5 % (0-4.4); Lymphocytes % 33.6 % (15.3-44.8); MCH 28.9 pg (27.0-35.0); MCV 86.7 fL (80-100); MPV 8.7 fL (7.6-11.3); Monocytes % 4.1 % (3.3-12.3); RBC Red Blood Cell Count 4.39 M/uL (3.86-4.86)
[2017-11-04 21:06] LABS: Protime INR 0.97
--- NOTE | 2017-11-04 21:08 | ER ---
Nurse's Notes [facility] Name: Che Helton Age: 51 yrs Sex: Female : 1965 Arrival Date: 11/04/2017 Time: 19:41 Bed 30 Private MD: Cassidy Lnua C Diagnosis: Chest pain on breathing;Fever, unspecified;Pneumonia due to other specified bacteria;Type 2 diabetes mellitus Presentation: 11/04 19:48 Presenting complaint: Patient states: that she is having cough, congestion with green sputum, runny nose, sneezing, left ear pain, sore throat and fever. States that she is having chest pain with deep breathing and also a headache. Transition of care: patient was not received from another setting of care. Onset of symptoms was November 01, 2017. Risk Assessment: Do you want to hurt yourself or someone else? Patient reports no desire to harm self or others. Initial Sepsis Screen: Does the patient meet any 2 criteria? No. Patient's initial sepsis screen is negative. Does the patient have a suspected source of infection? No. Patient's initial sepsis screen is negative. Care prior to arrival: Medication(s) given: Tylenol, last at 1830. 19:48 Method Of Arrival: Ambulatory 19:48 Acuity: NELY 3 Triage Assessment: 19:52 Headache History: The patient has had previous headaches and this one is similar to previous episodes. General: Appears uncomfortable, Behavior is calm, cooperative, appropriate for age. Pain: Complains of pain in right ear, left ear, chest and neck Pain currently is 10 out of 10 on a pain scale. Quality of pain is described as aching, Pain began 2-3 days ago. Is continuous, Also complains of nausea. EENT: Reports pain in left ear and right ear and throat. Neuro: Level of Consciousness is awake, alert, obeys commands, Oriented to person, place, time, situation, Reports headache. Cardiovascular: Reports chest pain, with deep breathing only. Respiratory: Reports shortness of breath cough that is pain with cough pain with respiration Airway is patent Trachea midline Respiratory effort is even, unlabored, Respiratory pattern is regular, symmetrical. GI: Reports diarrhea, nausea, vomiting. : No deficits noted. Derm: Skin is pink, warm \T\ dry. Musculoskeletal: Circulation, motion, and sensation intact. Capillary refill < 3 seconds. 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 fc Historical: - Allergies: :52 Sulfa (Sulfonamide Antibiotics); fc - Home Meds: :52 amlodipine 25 mg tab 1 tab once daily [Active]; aspirin 81 mg Oral chew 1 tab once fc daily [Active]; Cymbalta 30mg in the morning, 60mg at night Oral [Active]; metformin 500 mg Oral tab 1 tab 2 times per day [Active]; multivitamin with minerals Oral daily [Active]; Plavix 75 mg oral tab 1 tab once daily [Active]; Seroquel 25 mg Oral tab 1 tab nightly [Active]; - PMHx: 19:52 ADD/ADHD; Anxiety; Depression; Diabetes - NIDDM; Hyperlipidemia; Hypertension; stroke; fc Myocardial infarction; - PSHx: :52 Hysterectomy; Gastric Bypass; left foot surg; ; Knee surgery; fc - Immunization history:: Last tetanus immunization: unknown. - Social history:: Smoking status: Patient uses tobacco products, smokes one-half pack cigarettes per day. - Ebola Screening: : Patient negative for fever greater than or equal to 101.5 degrees Fahrenheit, and additional compatible Ebola Virus Disease symptoms Patient denies exposure to infectious person Patient denies travel to an Ebola-affected area in the 21 days before illness onset. Screenin:08 Abuse screen: Denies threats or abuse. Denies injuries from another. Nutritional kr2 screening: No deficits noted. Tuberculosis screening: No symptoms or risk factors identified. Fall Risk None identified. Assessment: 20:00 General: Appears in no apparent distress. uncomfortable, well groomed, Behavior is kr2 calm, cooperative. Pain: Complains of pain in chest Pain does not radiate. Pain currently is 4 out of 10 on a pain scale. at worst was 8 out of 10 on a pain scale. Quality of pain is described as sharp, Is intermittent, Alleviated by rest, Aggravated by laughing, breathing. Neuro: Level of Consciousness is awake, alert, obeys commands, Oriented to person, place, time, situation. Cardiovascular: Capillary refill < 3 seconds in bilateral fingers Patient's skin is warm and dry. Respiratory: Reports cough that is productive, pain with cough pain with respiration Airway is patent Respiratory effort is even, unlabored, Respiratory pattern is regular, symmetrical. GI: Abdomen is non-distended, obese. : Denies burning with urination. EENT: Oral mucosa is moist. Derm: Skin is intact, is healthy with good turgor, Skin is pink, warm \T\ dry. Musculoskeletal: Circulation, motion, and sensation intact. 21:00 Reassessment: Patient appears in no apparent distress at this time. Patient and/or kr2 family updated on plan of care and expected duration. Pain level reassessed. Patient is alert, oriented x 3, equal unlabored respirations, skin warm/dry/pink. Patient states feeling better. Patient states symptoms have improved. 21:51 Reassessment: Patient appears in no apparent distress at this time. Patient and/or kr2 family updated on plan of care and expected duration. Pain level reassessed. Patient is alert, oriented x 3, equal unlabored respirations, skin warm/dry/pink. Patient taken to CT via stretcher by bench technician, Rocephin infusion paused. 22:48 Reassessment: Patient appears in no apparent distress at this time. Patient and/or kr2 family updated on plan of care and expected duration. Pain level reassessed. Patient is alert, oriented x 3, equal unlabored respirations, skin warm/dry/pink. Patient denies pain at this time. Vital Signs: 19:54 BP 132 / 74; Pulse 72; Resp 20; Temp 98.7(O); Pulse Ox 100% on R/A; Weight 99.79 kg fc (R); Height 5 ft. 3 in. (160.02 cm) (R); Pain 10/10; 21:00 BP 166 / 66; Pulse 70; Resp 17; Pulse Ox 97% on R/A; kr2 22:38 BP 142 / 76; Pulse 72; Resp 18; Temp 98.6; Pulse Ox 97% on R/A; kr2 19:54 Body Mass Index 38.97 (99.79 kg, 160.02 cm) ED Course: 19:41 Patient arrived in ED. am2 19:41 Cassidy Luna FNP is Private Physician. am2 19:50 Triage completed. 19:54 Arm band placed on Patient placed in an exam room, on a stretcher. 20:00 Patient has correct armband on for positive identification. Placed in gown. Bed in low kr2 position. Call light in reach. Side rails up X 1. rn recovery on. Pulse ox on. NIBP on. Door closed. Lights dimmed. Warm blanket given. Head of bed elevated. 20:03 Wang Olivas MD is Attending Physician. [facility] 20:40 EKG done, by ED staff, reviewed by Wang Olivas MD. Inserted saline lock: 22 gauge in kr2 left antecubital area, using aseptic technique. Blood collected. 20:54 XRAY Chest (1 view) In Process Unspecified. EDMS 20:55 X-ray completed. Portable x-ray completed in exam room. Patient tolerated procedure bb2 well. 21:00 Urine collected: clean catch specimen, clear. kr2 21:06 True Vazquez MD is Hospitalizing Provider. [facility] 21:23 Venus Tran RN is Primary Nurse. kr2 22:01 CT completed. Patient tolerated procedure well. Patient moved to CT. Patient moved back jg6 from CT. 22:43 No provider procedures requiring assistance completed. Patient admitted, IV remains in kr2 place. Administered Medications: 20:55 Drug: Zofran 4 mg Route: IVP; Site: left antecubital; kr2 21:48 Follow up: Response: No adverse reaction kr2 20:58 Drug: morphine 4 mg Route: IVP; Site: left antecubital; kr2 21:48 Follow up: Response: No adverse reaction; Pain is decreased kr2 21:40 Drug: Rocephin - (cefTRIAXone) 2 grams Route: IVPB; Infused Over: 30 mins; Site: left kr2 antecubital; 22:40 Follow up: Response: No adverse reaction; IV Status: Completed infusion kr2 22:41 Drug: Zithromax 500 mg Route: IVPB; Infused Over: 1 hrs; Site: right antecubital; kr2 22:47 Follow up: IV Status: Infusion continued upon admission kr2 Outcome: 21:06 Decision to Hospitalize by Provider. [facility] 22:44 Admitted to Tele kr2 22:44 Condition: stable 22:44 Instructed on the need for admit, Demonstrated understanding of instructions. 22:49 Patient left the ED. kr2 Signatures: Dispatcher [employer] EDWang Xiao MD MD cha Chretien, Felicia, RN RN Katey Acosta formerly [facility] Venus Tran, JULIEN RN kr2 Catherine Arellano bb2 Yasmine Hernandez6
--- NOTE | 2017-11-04 21:08 | EDPHYS ---
Physician Documentation [facility] Name: Che Helton Age: 51 yrs Sex: Female : 1965 Arrival Date: 11/04/2017 Time: 19:41 Bed 30 Private MD: Cassidy Luna C ED Physician Wang Olivas HPI: 11/04 20:24 This 51 yrs old Black Female presents to ER via Ambulatory with complaints of Headache, ernie Chest Congestion, Back Pain, Fever. 20:24 The patient complains of pain to the forehead. 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/A - Hysterectomy fc Historical: - Allergies: 19:52 Sulfa (Sulfonamide Antibiotics); fc - Home Meds: 19:52 amlodipine 25 mg tab 1 tab once daily [Active]; aspirin 81 mg Oral chew 1 tab once fc daily [Active]; Cymbalta 30mg in the morning, 60mg at night Oral [Active]; metformin 500 mg Oral tab 1 tab 2 times per day [Active]; multivitamin with minerals Oral daily [Active]; Plavix 75 mg oral tab 1 tab once daily [Active]; Seroquel 25 mg Oral tab 1 tab nightly [Active]; - PMHx: 19:52 ADD/ADHD; Anxiety; Depression; Diabetes - NIDDM; Hyperlipidemia; Hypertension; stroke; fc Myocardial infarction; - PSHx: 19:52 Hysterectomy; Gastric Bypass; left foot surg; ; Knee surgery; fc - Immunization history:: Last tetanus immunization: unknown. - Social history:: Smoking status: Patient uses tobacco products, smokes one-half pack cigarettes per day. - Ebola Screening: : Patient negative for fever greater than or equal to 101.5 degrees Fahrenheit, and additional compatible Ebola Virus Disease symptoms Patient denies exposure to infectious person Patient denies travel to an Ebola-affected area in the 21 days before illness onset. ROS: 20:25 Constitutional: Negative for fever, chills, and weight loss, Eyes: Negative for injury, ernie pain, redness, and discharge, ENT: Negative for injury, pain, and discharge, Neck: Negative for injury, pain, and swelling, Cardiovascular: Negative for chest pain, palpitations, and edema, Abdomen/GI: Negative for abdominal pain, nausea, vomiting, diarrhea, and constipation, Back: Negative for injury and pain, : Negative for injury, bleeding, discharge, and swelling, MS/Extremity: Negative for injury and deformity, Skin: Negative for injury, rash, and discoloration, Psych: Negative for depression, anxiety, suicide ideation, homicidal ideation, and hallucinations, Allergy/Immunology: Negative for hives, rash, and allergies, Endocrine: Negative for neck swelling, polydipsia, polyuria, polyphagia, and marked weight changes, Hematologic/Lymphatic: Negative for swollen nodes, abnormal bleeding, and unusual bruising. 20:25 Respiratory: Positive for dyspnea on exertion, pleurisy, shortness of breath. 20:25 MS/extremity: Negative for Exam: 20:28 Constitutional: This is a well developed, well nourished patient who is awake, alert, ernie and in no acute distress. Head/Face: Normocephalic, atraumatic. Eyes: Pupils equal round and reactive to light, extra-ocular motions intact. Lids and lashes normal. Conjunctiva and sclera are non-icteric and not injected. Cornea within normal limits. Periorbital areas with no swelling, redness, or edema. ENT: Nares patent. No nasal discharge, no septal abnormalities noted. Tympanic membranes are normal and external auditory canals are clear. Oropharynx with no redness, swelling, or masses, exudates, or evidence of obstruction, uvula midline. Mucous membranes moist. Chest/axilla: Normal chest wall appearance and motion. Nontender with no deformity. No lesions are appreciated. Cardiovascular: Regular rate and rhythm with a normal S1 and S2. No gallops, murmurs, or rubs. Normal PMI, no JVD. No pulse deficits. Respiratory: Lungs have equal breath sounds bilaterally, clear to auscultation and percussion. No rales, rhonchi or wheezes noted. No increased work of breathing, no retractions or nasal flaring. Abdomen/GI: Soft, non-tender, with normal bowel sounds. No distension or tympany. No guarding or rebound. No evidence of tenderness throughout. Back: No spinal tenderness. No costovertebral tenderness. Full range of motion. Skin: Warm, dry with normal turgor. Normal color with no rashes, no lesions, and no evidence of cellulitis. MS/ Extremity: Pulses equal, no cyanosis. Neurovascular intact. Full, normal range of motion. Neuro: Awake and alert, GCS 15, oriented to person, place, time, and situation. Cranial nerves II-XII grossly intact. Motor strength 5/5 in all extremities. Sensory grossly intact. Cerebellar exam normal. Normal gait. Psych: Awake, alert, with orientation to person, place and time. Behavior, mood, and affect are within normal limits. 20:28 Neck: External neck: is normal, no acute changes, ROM/movement: is normal, no acute changes, Meningeal signs: are not present, Kernig's sign is negative, Brudzinski's sign is negative, nuchal rigidity, is not appreciated, is present. Vital Signs: 19:54 BP 132 / 74; Pulse 72; Resp 20; Temp 98.7(O); Pulse Ox 100% on R/A; Weight 99.79 kg fc (R); Height 5 ft. 3 in. (160.02 cm) (R); Pain 10/10; 21:00 BP 166 / 66; Pulse 70; Resp 17; Pulse Ox 97% on R/A; kr2 22:38 BP 142 / 76; Pulse 72; Resp 18; Temp 98.6; Pulse Ox 97% on R/A; kr2 19:54 Body Mass Index 38.97 (99.79 kg, 160.02 cm) MDM: 20:[address] [facility] 20:[address] [facility] 20:29 Data reviewed: vital signs, nurses notes, lab test result(s), EKG, radiologic studies, [facility] CT scan, plain films. 11/04 20:24 Order name: Basic Metabolic Panel [facility] 11/04 20:24 Order name: CBC with Diff [facility] 11/04 20:24 Order name: Ckmb [facility] 11/04 20:24 Order name: CPK [facility] 11/04 20:24 Order name: LFT's [facility] 11/04 20:24 Order name: Magnesium [facility] 11/04 20:24 Order name: NT PRO-BNP [facility] 11/04 20:24 Order name: PT-INR; Complete Time: 21:15 [facility] 11/04 20:24 Order name: Ptt, Activated; Complete Time: 21:15 [facility] 11/04 20:24 Order name: Troponin (emerg Dept Use Only) [facility] 11/04 20:24 Order name: Blood Culture Adult (2) [facility] 11/04 20:24 Order name: Lipase [facility] 11/04 20:24 Order name: Urine Culture [facility] 11/04 20:24 Order name: Basic Metabolic Panel EDDC 11/04 20:24 Order name: XRAY Chest (1 view); Complete Time: 21:15 [facility] 11/04 20:24 Order name: CT Chest For PE Angio [facility] 11/04 20:24 Order name: CBC with Automated Diff EDMS 11/04 21:10 Order name: Urine Dipstick--Ancillary (enter results) rg2 11/04 21:21 Order name: CBC with Automated Diff EDMS 11/04 21:21 Order name: CBC with Automated Diff EDMS 11/04 21:21 Order name: Comprehensive Metabolic Panel EDMS 11/04 21:21 Order name: Comprehensive Metabolic Panel EDDC 11/04 21:21 Order name: Lipid Profile EDMS 11/04 21:21 Order name: Lipid Profile EDMS 11/04 21:21 Order name: Magnesium EDMS 11/04 21:21 Order name: Magnesium EDMS 11/04 21:21 Order name: Phosphorus EDMS 11/04 21:21 Order name: Phosphorus EDMS 11/04 21:21 Order name: Chest Pa And Lat (2 Views) EDDC 11/04 21:56 Order name: CBC Smear Scan EDDC 11/04 20:24 Order name: EKG; Complete Time: 20:25 [facility] 11/04 20:24 Order name: Cardiac monitoring; Complete Time: 20:58 [facility] 11/04 20:24 Order name: EKG - Nurse/Tech; Complete Time: 20:58 [facility] 11/04 20:24 Order name: IV Saline Lock; Complete Time: 20:58 [facility] 11/04 20:24 Order name: Labs collected and sent; Complete Time: 20:58 [facility] 11/04 20:24 Order name: O2 Per Protocol; Complete Time: 20:58 [facility] 11/04 20:24 Order name: O2 Sat Monitoring; Complete Time: 20:58 [facility] 11/04 20:24 Order name: Urine Dipstick-Ancillary (obtain specimen); Complete Time: 21:06 [facility] 11/04 21:21 Order name: Chest Pa And Lat (2 Views) [facility] 11/04 22:13 Order name: CT EDMS Administered Medications: 20:55 Drug: Zofran 4 mg Route: IVP; Site: left antecubital; kr2 21:48 Follow up: Response: No adverse reaction kr2 20:58 Drug: morphine 4 mg Route: IVP; Site: left antecubital; kr2 21:48 Follow up: Response: No adverse reaction; Pain is decreased kr2 21:40 Drug: Rocephin - (cefTRIAXone) 2 grams Route: IVPB; Infused Over: 30 mins; Site: left kr2 antecubital; 22:40 Follow up: Response: No adverse reaction; IV Status: Completed infusion kr2 22:41 Drug: Zithromax 500 mg Route: IVPB; Infused Over: 1 hrs; Site: right antecubital; kr2 22:47 Follow up: IV Status: Infusion continued upon admission kr2 Disposition: 11/04/17 21:06 Hospitalization ordered by True Vazquez for Observation. Preliminary diagnosis are Chest pain on breathing, Fever, unspecified, Pneumonia due to other specified bacteria, Type 2 diabetes mellitus. - Bed requested for Telemetry/MedSurg (observation). - Status is Observation. kr2 - Condition is Fair. - Problem is new. - Symptoms have improved. UTI on Admission? No Signatures: Dispatcher [employer] EDMS Vargas Medrano rg2 Wang Olivas MD MD cha Chretien, Felicia, RN RN Venus Tran RN RN kr2 Corrections: (The following items were deleted from the chart) 21:07 21:06 Hospitalization Ordered by True Vazquez MD for Inpatient Admission. Preliminary ernie diagnosis is Chest pain on breathing; Fever, unspecified; Pneumonia due to other specified bacteria. Bed requested for Telemetry/MedSurg (Inpatient). Status is Inpatient Admission. Condition is Fair. Problem is new. Symptoms have improved. UTI on Admission? No. ernie 21:15 21:07 11/04/2017 21:06 Hospitalization Ordered by True Vazquez MD for Inpatient ernie Admission. Preliminary diagnosis is Chest pain on breathing; Fever, unspecified; Pneumonia due to other specified bacteria; Type 2 diabetes mellitus. Bed requested for Telemetry/MedSurg (Inpatient). Status is Inpatient Admission. Condition is Fair. Problem is new. Symptoms have improved. UTI on Admission? No. ernie 21:59 21:15 11/04/2017 21:06 Hospitalization Ordered by True Vazquez MD for Observation. rg2 Preliminary diagnosis is Chest pain on breathing; Fever, unspecified; Pneumonia due to other specified bacteria; Type 2 diabetes mellitus. Bed requested for Telemetry/MedSurg (observation). Status is Observation. Condition is Fair. Problem is new. Symptoms have improved. UTI on Admission? No. ernie 22:49 21:59 11/04/2017 21:06 Hospitalization Ordered by True Vazquez MD for Observation. kr2 Preliminary diagnosis is Chest pain on breathing; Fever, unspecified; Pneumonia due to other specified bacteria; Type 2 diabetes mellitus. Bed requested for Telemetry/MedSurg (observation). Status is Observation. Condition is Fair. Problem is new. Symptoms have improved. UTI on Admission? No. rg2
[2017-11-04] MEDS ORDERED: ACETAMINOPHEN 500 MG TAB PO PRN (21:16)
[2017-11-04] MEDS ORDERED: ONDANSETRON 4 MG/2 ML VIAL IV PRN (21:16)
[2017-11-04] MEDS ORDERED: GABAPENTIN 400 MG CAP PO PRN (21:19)
[2017-11-04 21:33] LABS: ALT/SGPT 21 U/L (12-78); AST/SGOT 15 U/L (15-37); Albumin 3.8 g/dL (3.4-5.0); Alkaline Phosphatase 114 U/L (45-117); BUN Blood Urea Nitrogen 11 mg/dL (7-18); Bicarbonate 28 mmol/L (21-32); Bilirubin Direct < 0.1 mg/dL (0-0.2); Bilirubin Total 0.2 mg/dL (0.2-1.0); CKMB Creatine Kinase MB 1.8 ng/mL (0.3-3.6); Creatine Phosphokinase 216 U/L (26-192); Glucose Level 87 mg/dL (74-106); Lipase 253 U/L (73-393); Magnesium 2.2 mg/dL (1.8-2.4); NT PRO-BNP 43 pg/mL (<125); Protein, Total 8.3 g/dL (6.4-8.2); Sodium Level 143 mmol/L (136-145); Troponin (Emerg Dept Use Only) < 0.02 ng/mL (0.0-0.045)
[2017-11-04 21:35] LABS: Urine Blood NEGATIVE (NEG); Urine Glucose NEGATIVE (NEG); Urine Protein NEGATIVE (NEG); Urine Specific Gravity 1.025 (1.005-1.030); Urine pH 6.5 (5.0-7.0)
[2017-11-04] MEDS ORDERED: NA CHLORIDE 0.9% 100 ML IV ONE (21:39)
[2017-11-04] MEDS ORDERED: CEFTRIAXONE/SWI 1gm 2 GM/20 ML SYR ONE (21:39)
[2017-11-04] MEDS ORDERED: AZITHROMYCIN 500 MG/250 ML BAG ONE (21:39)
[2017-11-04 21:56] LABS: Anisocytosis 1+; Blood Morphology Comment NOTED (NOT SEEN); Platelet Estimate ADEQ; Urine White Blood Cell Casts OK
[2017-11-04] MEDS ORDERED: NA CHLORIDE 0.9% 1,000 ML IV SCH (22:00)
--- NOTE | 2017-11-04 22:12 | RAD REPORT ---
EXAM DESCRIPTION: CT - Chest For Pe Angio - 11/04/2017 10:01 pm CLINICAL HISTORY: Chest pain. Chest pain;Cough COMPARISON: CTANGIO CHEST FOR PE dated 01/17/2015 TECHNIQUE: CT angiogram of the pulmonary arteries was performed with MIP. All CT scans are performed using dose optimization technique as appropriate and may include automated exposure control or mA/KV adjustment according to patient size. FINDINGS: No evidence of pulmonary thromboembolism. No acute aortic finding demonstrated. Mild linear atelectasis is present in the left lung base anteriorly. No focal consolidation typical o f pneumonia seen. No significant pericardial or pleural fluid. No concerning bony finding. IMPRESSION: No evidence of pulmonary thromboembolism. Mild linear subsegmental atelectasis in the anterior left lung base.
[2017-11-05 00:21] VITALS: TEMP 97.8; BMI 38.7
[2017-11-05] MEDS: HYDROCODONE/APAP 10/325 TAB PO PRN ×2 (00:31→06:53)
[2017-11-05 03:15] VITALS: O2SAT 95
[2017-11-05 04:23] LABS: Absolute Monocytes 0.4 K/uL (0.1-1.3); Absolute Neutrophil 3.9 K/uL (1.8-8.0); Basophils % 1.3 % (0-1.3); Eosinophils % 2.6 % (0-4.4); Hematocrit 34.4 % (36.0-45.0); Lymphocytes % 39.8 % (15.3-44.8); MCH 28.7 pg (27.0-35.0); MCV 85.7 fL (80-100); MPV 9.2 fL (7.6-11.3); Monocytes % 4.7 % (3.3-12.3); RBC Red Blood Cell Count 4.02 M/uL (3.86-4.86)
[2017-11-05 04:43] LABS: Albumin 3.4 g/dL (3.4-5.0); Bilirubin Total 0.1 mg/dL (0.2-1.0); Magnesium 2.3 mg/dL (1.8-2.4); Phosphorus 2.9 mg/dL (2.5-4.9); Potassium 3.9 mmol/L (3.5-5.1); Protein, Total 7.4 g/dL (6.4-8.2)
[2017-11-05] MEDS: AZITHROMYCIN IV 250 MG in NA CHLORIDE 0.9% 250 ML IVPB SCH ×2 (06:00→09:00)
[2017-11-05] MEDS ORDERED: QUETIAPINE 25 MG TAB PO PRN (08:00)
[2017-11-05] MEDS ORDERED: CEFTRIAXONE 1 GM/NS 50 ML 1 GM/50 ML BAG IV SCH (08:00)
[2017-11-05] MEDS ORDERED: HYDROCODONE/APAP 7.5/325 MG TAB PO PRN (08:00)
[2017-11-05] MEDS ORDERED: CEFTRIAXONE/SWI 1gm 1 GM/10 ML SYR IV SCH (08:00)
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
[2017-11-05] MEDS ORDERED: METFORMIN HCL 500 MG TAB PO SCH (09:00)
[2017-11-05] MEDS ORDERED: CARVEDILOL 25 MG TAB PO SCH (09:00)
[2017-11-05] MEDS ORDERED: MULTIVITAMIN TAB PO SCH (09:00)
[2017-11-05] MEDS ORDERED: DULOXETINE 30 MG CAP PO SCH ×2 (09:00→21:00)
[2017-11-05] MEDS ORDERED: AMLODIPINE 10 MG TAB PO SCH (09:00)
[2017-11-05] MEDS ORDERED: ENOXAPARIN 40 MG/0.4 ML SQ SCH (09:00)
[2017-11-05] MEDS ORDERED: CLOPIDOGREL 75 MG TABLET PO SCH (09:00)
[2017-11-05] MEDS ORDERED: ASPIRIN 81 MG CHEWABLE TABLET PO SCH (09:00)
[2017-11-05] MEDS ORDERED: POTASSIUM CL SA 10 MEQ TAB PO ONE (09:00)
--- NOTE | 2017-11-05 11:03 | EKG ---
Test Date: 2017-11-04 Test Time: 20:53:26 Deputy Fire Marshal: JESSICA MEASUREMENT RESULTS: Intervals: Rate: 61 AL: 184 QRSD: 102 QT: 458 QTc: 461 Colton: P: 43 AL: 184 QRS: -13 T: 84 INTERPRETIVE STATEMENTS: Normal sinus rhythm Voltage criteria for left ventricular hypertrophy ST elevation, consider early repolarization, pericarditis, or injury T wave abnormality, consider lateral ischemia Abnormal ECG Compared to ECG 08/21/2017 21:46:07 ST (T wave) deviation now present T-wave abnormality still present Possible ischemia still present Electronically Signed On 11-05-17 11:00:47 CDT by Giovanni Brewster
[2017-11-05 11:05] VITALS: BP 164/80
[2017-11-05] MEDS ORDERED: ATORVASTATIN 20 MG TAB PO SCH (21:00)
--- NOTE | 2017-11-06 05:26 | DS ---
Date of Discharge: 11/05/2017 Admitting Diagnoses: 1.Chest pain. 2.Costochondritis. 3.Depressive disorder. 4.Gastroesophageal reflux disease. 5.Essential hypertension. 6.History of cerebrovascular accident. 7.History of coronary artery disease. 8.Morbid obesity. 9.Tobacco abuse. 10.Diabetes mellitus type 2. 11.Transient ischemic attack. Discharge Diagnoses: 1.Chest pain, acute coronary syndrome ruled out, atypical chest pain. 2.Costochondritis. 3.Obesity, BMI 38.8. 4.Major depressive disorder. 5.Gastroesophageal reflux disease without esophagitis. 6.Essential hypertension. 7.History of transient ischemic attack, cerebrovascular accident. No residual deficit. 8.History of coronary artery disease, [place] artery, and [place] heart without angina. 9.Nicotine dependence with cigarette smoking. 10.Diabetes mellitus type 2, non-insulin requiring with hyperglycemia. Hospital Course: The patient is a 51-year-old female who comes in with multiple admissions for [facility] complaints of chest pain on inspiration. The patient had some musculoskeletal pain on the right s paz underneath her right breast with deep inspiration. The patient had a CT angio done, which showed no evidence of PE. Did show some mild linear subsegmental atelectasis in the anterior left lung bas e. Chest x-ray showed mild right lung base pulmonary opacity suspicion for developing pneumonia. Th e patient was started on IV antibiotics. Her troponin level was negative. This was not felt to be a cute coronary syndrome or CT. The patient did have improvement in her condition. Her white count re mained stable. Her UA was negative. Blood cultures pending at the time of discharge, however, no si gns of fever or sepsis. The patient otherwise was doing well, saturating well on room air. Her coug h and congestion had improved. No longer having any cough. The patient was then cleared for dischar ge. Followup: To followup with her PCP in 2-3 days. Return to ER for worsening condition. Have repeat chest x-ray in 1 to 2 weeks. Medications: As per medication reconciliation list. Diet: Diabetic diet. Activity: As tolerated. Physical Examination: General: Awake, alert, oriented x3, not in any acute distress. Obese female. CV: S1, S2. No murmurs. Respiratory: Moving air well bilaterally. No wheezing. Gastrointestinal: Abdomen is soft, nontender, nondistended. Positive bowel sounds. Extremities: No clubbing, cyanosis, or edema. Neurologic: Nonfocal. SA/MODL Voice ID: [id number] Report ID: [id number]
== END 2017-11-05 11:30 | disposition home or self-care (01) ==
LOC: ER 19:37 → ERHOLD 21:22 → INTOOBSV 21:22 → 4TH 22:05
PROVIDERS: ADMIT Hospitalist; ATTEND Hospitalist
DX: M94.0 Chondrocostal junction syndrome [Tietze] (principal); E66.9 Obesity, unspecified; Z68.38 Body mass index [BMI] 38.0-38.9, adult; F32.9 Major depressive disorder, single episode, unspecified; K21.9 Gastro-esophageal reflux disease without esophagitis; I10 Essential (primary) hypertension; I25.10 Atherosclerotic heart disease of native coronary artery without angina pectoris; E11.9 Type 2 diabetes mellitus without complications; Z86.73 Personal history of transient ischemic attack (TIA), and cerebral infarction without residual deficits; F17.210 Nicotine dependence, cigarettes, uncomplicated; Z88.2 Allergy status to sulfonamides
CPT/HCPCS: 36415; 71045; 71275; 80048; 80053; 80061; 80076; 81003; 82550; 82553; 82962; 83690; 83735; 83880; 84100; 84484; 85025; 85610; 85730; 87040; 87086; 87088; 93005; 94760; 99285; G0378; J0456; J0696; J1650; J2405; J7030; Q9967

== ENCOUNTER 2017-12-12 14:33 | Emergency (ER) | payer MEDICAID ==
--- OUTSIDE RECORDS SUMMARY | 2017-12-12 14:34 | XMS REPORT | Clinical Summary ---
:1965 Author Organization [facility] Address [address] [place] [address] Phone Care Team Providers Name Role Phone [...] (hypertension) 08/31/2015 Metabolic syndrome 08/31/2015 Morbid obesity ([facility]) 08/31/2015 History of gastric surgery 08/31/2015 History of NH (myocardial infarction) 08/31/2015 H/O section 08/31/2015 Smoking history 08/31/2015 Acute CVA (cerebrovascular accident) ([facility]) 08/30/2015 Social History Tobacco Use Types Packs/Day Years Used Date Never Smoker Alcohol Use Drinks/Week oz/Week Comments No Sex Assigned at Date Recorded Not on file Last Filed Vital Signs Not on file Plan of Treatment Not on file Results Not on fileafter 12/11/2016
--- NOTE | 2017-12-12 14:58 | RAD REPORT ---
EXAM DESCRIPTION: CT - Ct Stroke Brain Wo Cont - 12/12/2017 2:47 pm CLINICAL HISTORY: Left-sided numbness/weakness since 9:30 a.m. COMPARISON: April 2017 TECHNIQUE: Computed axial tomography of the head was obtained. IV contrast was not requested. All CT scans are performed using dose optimization technique as appropriate and may include automated exposure control or mA/KV adjustment according to patient size. FINDINGS: An intracranial bleed is not seen . The ventricles are normal in caliber. No extra-axial fluid collection is noted. Fluid within the sinuses/ mastoids is not seen. IMPRESSION: No acute intracranial abnormality is seen. If patient's symptoms persist MRI of the bra in would be recommended. Exam was discussed with Dr Xiong in the Emergency Room at 2:50 p.m. 12/12/2017
[2017-12-12 15:03] LABS: Absolute Lymphocytes (CBC) 2.4 K/uL (0.7-4.9); Absolute Monocytes 0.3 K/uL (0.1-1.3); Absolute Neutrophil 4.9 K/uL (1.8-8.0); Basophils % 0.7 % (0-1.3); Eosinophils % 2.1 % (0-4.4); Hematocrit 35.2 % (36.0-45.0); Lymphocytes % 30.6 % (15.3-44.8); MCH 28.9 pg (27.0-35.0); MCV 85.9 fL (80-100); MPV 8.6 fL (7.6-11.3); Monocytes % 3.8 % (3.3-12.3)
[2017-12-12 15:10] LABS: Protime INR 1.03
[2017-12-12] MEDS ORDERED: NA CHLORIDE 0.9% 1,000 ML ONE (15:18)
[2017-12-12 15:25] LABS: BUN Blood Urea Nitrogen 10 mg/dL (7-18); Bicarbonate 25 mmol/L (21-32); Glucose Level 94 mg/dL (74-106); Sodium Level 144 mmol/L (136-145); Troponin (Emerg Dept Use Only) 0.02 ng/mL (0.0-0.045)
--- NOTE | 2017-12-12 15:27 | RAD REPORT ---
EXAM DESCRIPTION: Justin Single View12/12/2017 3:13 pm CLINICAL HISTORY: Cardiomegaly/code stroke COMPARISON: none FINDINGS: The lungs appear clear of acute infiltrate. The heart is mildly to moderately enlarged IMPRESSION: No acute abnormalities displayed
[2017-12-12] MEDS ORDERED: DEXAMETHASONE 10 MG/ML VIAL ONE (15:57)
[2017-12-12] MEDS ORDERED: MORPHINE 4 MG/ML SYR ONE (15:57)
--- NOTE | 2017-12-12 17:12 | EDPHYS ---
Physician Documentation [facility] Name: Che Helton Age: 52 yrs Sex: Female : 1965 Arrival Date: 12/12/2017 Time: 14:36 Bed 25 Private MD: ED Physician Giovanni Xiong HPI: 12/12 14:54 This 52 yrs old Black Female presents to ER via EMS with complaints of weakness. rn 14:54 The patient presents to the emergency department with weakness of the left upper rn extremity, left lower extremity. Onset: The symptoms/episode began/occurred this morning, at an unknown time. Associated signs and symptoms: Pertinent positives: headache, weakness, Pertinent negatives: fever, neck stiffness, syncope, double vision, visual field changes, loss of vision. Severity of symptoms: At their worst the symptoms were moderate in the emergency department the symptoms are unchanged. Current symptoms: paralysis or paresis, that is moderate. The patient has experienced a previous episode. Reports woke up this morning around 0930 with headache, weakness of left arm and leg, no trauma, no syncope, reports previous stroke with right sided weakness. Also reports pain to LUE and LLE. No back pain. . 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 LMP N/A - Post-menopause tl3 Historical: - Allergies: 14:42 Sulfa (Sulfonamide Antibiotics); tl3 - Home Meds: 14:42 amlodipine 25 mg tab 1 tab once daily [Active]; aspirin 81 mg Oral chew 1 tab once tl3 daily [Active]; Cymbalta 30mg in the morning, 60mg at night Oral [Active]; metformin 500 mg Oral tab 1 tab 2 times per day [Active]; multivitamin with minerals Oral daily [Active]; Plavix 75 mg Oral tab 1 tab once daily [Active]; Seroquel 25 mg Oral tab 1 tab nightly [Active]; - PMHx: 14:42 ADD/ADHD; Depression; Anxiety; Diabetes - NIDDM; Hypertension; Hyperlipidemia; tl3 Myocardial infarction; stroke; - Immunization history:: Adult Immunizations up to date. - Social history:: Smoking status: unknown. - Ebola Screening: : No symptoms or risks identified at this time. - Family history:: not pertinent. - Hospitalizations: : No recent hospitalization is reported. ROS: 14:54 Constitutional: Negative for fever, chills, and weight loss, Eyes: Negative for injury, rn pain, redness, and discharge, Neck: Negative for injury, pain, and swelling, Cardiovascular: Negative for chest pain, palpitations, and edema, Respiratory: Negative for shortness of breath, cough, wheezing, and pleuritic chest pain, Abdomen/GI: Negative for abdominal pain, nausea, vomiting, diarrhea, and constipation, MS/Extremity: Negative for injury and deformity, Skin: Negative for injury, rash, and discoloration, Neuro: Negative for seizure Exam: 14:54 Constitutional: This is a well developed, well nourished patient who is awake, alert, rn and in no acute distress. Head/Face: Normocephalic, atraumatic. Eyes: Pupils equal round and reactive to light, extra-ocular motions intact. Lids and lashes normal. Conjunctiva and sclera are non-icteric and not injected. Cornea within normal limits. Periorbital areas with no swelling, redness, or edema. Cardiovascular: Regular rate and rhythm with a normal S1 and S2. No gallops, murmurs, or rubs. Normal PMI, no JVD. No pulse deficits. Respiratory: Lungs have equal breath sounds bilaterally, clear to auscultation and percussion. No rales, rhonchi or wheezes noted. No increased work of breathing, no retractions or nasal flaring. Abdomen/GI: Soft, non-tender MS/ Extremity: Pulses equal, no cyanosis. Neuro: Awake and alert, GCS 15, oriented to person, place, time, and situation. Cranial nerves II-XII grossly intact. Motor strength 4/5 LUE and LLE with drift, 5/5 RUE/RLE. Sensory grossly intact. Vital Signs: 14:42 BP 146 / 81; Pulse 62; Resp 18; Pulse Ox 99% on R/A; tl3 15:38 BP 143 / 73; Pulse 64; Resp 18; Pulse Ox 100% on R/A; tl3 17:01 BP 149 / 60; Pulse 64; Resp 18; Pulse Ox 99% ; tl3 NIH Stroke Scale Scores: 14:35 NIHSS Score: 0 tl3 MDM: 14:40 Patient medically screened. rn 14:50 ED course: NIH 2 for LUE/LLE weakness. CT head no acute findings per radiology. Onset rn was when awoke this morning, around 0930, outside of TPA window, no TPA indicated.. 15:39 ED course: Spoke again with patient to update her of her studies, she has now changed rn her story after telling her ct head looks ok and I recommend transfer to [facility] for further neurological evaluation. Patient states "I am not having a stroke", states that ROM limited due to pain, when forces through pain, no weakness exhibited on reeval, states that only needs pain meds and she will be better. Told her we could try and get MRI brain and if normal, possibly radiculopathy. No change in ECG compared to previous and normal trop. Denies chest pain. I do not feel at this time this is radiated cardiac pain. . 17:08 Data reviewed: vital signs, nurses notes, lab test result(s), EKG, radiologic studies, rn CT scan, and as a result, I will discharge patient. Counseling: I had a detailed discussion with the patient and/or guardian regarding: the historical points, exam findings, and any diagnostic results supporting the discharge/admit diagnosis, lab results, radiology results, the need for outpatient follow up, to return to the emergency department if symptoms worsen or persist or if there are any questions or concerns that arise at home. Response to treatment: the patient's symptoms have resolved after treatment, the patient's condition has returned to base line, the patient is now symptom free, and as a result, I will discharge patient. Special discussion: I discussed with the patient/guardian in detail that at this point there is no indication for admission to the hospital. It is understood, however, that if the symptoms persist or worsen the patient needs to return immediately for re-evaluation. ED course: Pt refuses MRI, states steroids and morphine resolved pain and she is claustrophobic, refuses MRI, states wants to go home, will dc with steroids and pain meds. . 12/12 14:38 Order name: Troponin (emerg Dept Use Only) rn 12/12 14:38 Order name: Basic Metabolic Panel; Complete Time: 15:34 rn 12/12 14:38 Order name: CBC with Diff; Complete Time: 15:15 rn 12/12 14:38 Order name: Protime (+inr); Complete Time: 15:15 rn 12/12 14:38 Order name: Ptt, Activated; Complete Time: 15:15 rn 12/12 14:39 Order name: Troponin (Emerg Dept Use Only); Complete Time: 15:34 EDMS 12/12 14:38 Order name: CT Stroke Brain w/o Contrast; Complete Time: 15:10 rn 12/12 14:38 Order name: EKG; Complete Time: 14:39 rn 12/12 15:11 Order name: Chest Single View; Complete Time: 15:34 EDMS 12/12 14:38 Order name: Accucheck; Complete Time: 15:00 rn 12/12 14:38 Order name: Cardiac monitoring; Complete Time: 15:00 rn 12/12 14:38 Order name: EKG - Nurse/Tech; Complete Time: 15:00 rn 12/12 14:38 Order name: IV Saline Lock; Complete Time: 15:00 rn 12/12 14:38 Order name: Labs collected and sent; Complete Time: 15:01 rn 12/12 14:38 Order name: NPO; Complete Time: 15:01 rn 12/12 14:38 Order name: O2 Per Protocol; Complete Time: 15:01 rn 12/12 14:38 Order name: O2 Sat Monitoring; Complete Time: 15:01 rn Administered Medications: 15:15 Drug: NS 0.9% 500 ml Route: IV; Rate: bolus; Site: left antecubital; Delivery: Primary tl3 tubing; 15:40 Follow up: Rate change 124 ml/hr; IV Status: Completed infusion; IV Intake: 500ml tl3 16:03 Drug: morphine 4 mg Route: IVP; Infused Over: 2 mins; Site: left antecubital; tl3 17:03 Follow up: Response: Pain is decreased tl3 16:04 Drug: Decadron - Dexamethasone 10 mg Route: IVP; Infused Over: 2 mins; Site: left tl3 antecubital; 17:03 Follow up: Response: No adverse reaction tl3 Point of Care Testing: Blood Glucose: 14:50 Blood Glucose: 102 mg/dL; tl3 Ranges: Critical Glucose Levels:Adult <50 mg/dl or >400 mg/dl <40 mg/dl or >180 mg/dl Disposition: 12/12/17 17:11 Discharged to Home. Impression: Radiculopathy, Paresthesia of skin. - Condition is Stable. - Discharge Instructions: Paresthesia, Peripheral Neuropathy, Radicular Pain. - Prescriptions for Tylenol- Codeine #3 300-30 mg Oral Tablet - take 1 tablet by ORAL route every 6 hours As needed; 15 tablet. Medrol (Galileo) 4 mg Oral Tablets, Dose Pack - take 1 tablet by ORAL route as directed - follow package instructions; 1 packet. - Medication Reconciliation Form, Thank You Letter, Antibiotic Education, Prescription Opioid Use, Family Work Release form. - Follow up: Private Physician; When: As needed; Reason: Recheck today's complaints, Re-evaluation by your physician. - Problem is new. - Symptoms have improved. NIH Stroke Scale - NIH Stroke Score Date: 12/12/2017 Time: 14:35 Total Score = 0 1a. Level of Consciousness (LOC) - 0(Alert) 1b. Level of Consciousness (LOC) (Year \\T\\ Age) - 0(Both) 1c. LOC Commands (Open \\T\\ Closes Eyes/Engineering Lecturer) - 0(Both) 2. Best Gaze (Lateral Gaze Paresis) - 0(Normal) 3. Visual Field Loss - 0(No visual loss) 4. Facial Palsy - 0(Normal) 5a. Left Arm: Motor (10-second hold) - 0(No drift) 5b. Right Arm: Motor (10-second hold) - 0(No drift) 6a. Left Leg: Motor (5-second hold - always test supine) - 0(No drift) 6b. Right Leg: Motor (5-second hold - always test supine) - 0(No drift) 7. Limb Ataxia (finger/nose \\T\\ heel/ron - test with eyes open) - 0(Absent) 8. Sensory Loss (pinprick arms/legs/face) - 0(Normal) 9. Best Language: Aphasia (description/naming/reading) - 0(No aphasia) 10. Dysarthria (speech clarity - read or repeat words) - 0(Normal) 11. Extinction and Inattention (visual/tactile/auditory/spatial/personal) - 0(No abnormality) Initials: tl3 Signatures: Dispatcher [employer] Giovanni Burton MD MD rn Lowrey, Tammy, RN RN tl3 Corrections: (The following items were deleted from the chart) 17:25 17:11 12/12/2017 17:11 Discharged to Home. Impression: Radiculopathy; tl3 Paresthesia of skin. Condition is Stable. Forms are Medication Reconciliation Form, Thank You Letter, Antibiotic Education, Prescription Opioid Use. Follow up: Private Physician; When: As needed; Reason: Recheck today's complaints, Re-evaluation by your physician. Problem is new. Symptoms have improved. rn
--- NOTE | 2017-12-12 17:12 | ER ---
Nurse's Notes [facility] Name: Che Helton Age: 52 yrs Sex: Female : 1965 Arrival Date: 12/12/2017 Time: 14:36 Bed 25 Private MD: Diagnosis: Radiculopathy;Paresthesia of skin Presentation: 12/12 14:37 Presenting complaint: EMS states: pt woke up with a headache with left sided pain and tl3 weakness. Transition of care: patient was not received from another setting of care. Onset of symptoms was December 12, 2017 at 09:30. Risk Assessment: Do you want to hurt yourself or someone else? Patient reports no desire to harm self or others. Initial Sepsis Screen: Does the patient meet any 2 criteria? No. Patient's initial sepsis screen is negative. Does the patient have a suspected source of infection? No. Patient's initial sepsis screen is negative. Care prior to arrival: None. 14:37 Method Of Arrival: EMS: [facility] tl3 14:37 Acuity: NELY 2 tl3 Triage Assessment: 14:42 General: Appears uncomfortable, Behavior is calm, cooperative, appropriate for age. tl3 Pain: Complains of pain in left arm Pain began 3 hours ago. EENT: No signs and/or symptoms were reported regarding the EENT system. Neuro: Level of Consciousness is awake, alert, obeys commands, Oriented to person, place, time, situation, Appropriate for age Speech is normal, Facial symmetry appears normal. Cardiovascular: Patient's skin is warm and dry. Respiratory: Airway is patent Respiratory effort is even, unlabored, Respiratory pattern is regular, symmetrical. GI: No signs and/or symptoms were reported involving the gastrointestinal system. : No signs and/or symptoms were reported regarding the genitourinary system. Derm: No signs and/or symptoms reported regarding the dermatologic system. Musculoskeletal: No signs and/or symptoms reported regarding the musculoskeletal system. ADZ WORKER: 14:42 LMP N/A - Post-menopause tl3 Historical: - Allergies: 14:42 Sulfa (Sulfonamide Antibiotics); tl3 - Home Meds: 14:42 amlodipine 25 mg tab 1 tab once daily [Active]; aspirin 81 mg Oral chew 1 tab once tl3 daily [Active]; Cymbalta 30mg in the morning, 60mg at night Oral [Active]; metformin 500 mg Oral tab 1 tab 2 times per day [Active]; multivitamin with minerals Oral daily [Active]; Plavix 75 mg Oral tab 1 tab once daily [Active]; Seroquel 25 mg Oral tab 1 tab nightly [Active]; - PMHx: 14:42 ADD/ADHD; Depression; Anxiety; Diabetes - NIDDM; Hypertension; Hyperlipidemia; tl3 Myocardial infarction; stroke; - Immunization history:: Adult Immunizations up to date. - Social history:: Smoking status: unknown. - Ebola Screening: : No symptoms or risks identified at this time. - Family history:: not pertinent. - Hospitalizations: : No recent hospitalization is reported. Screenin:46 Abuse screen: Denies threats or abuse. Nutritional screening: No deficits noted. tl3 Tuberculosis screening: No symptoms or risk factors identified. Fall Risk None identified. 15:08 Patient has been NPO before screening. The patient is alert, able to follow commands. tl3 The patient does not exhibit slurred or garbled speech The patient is not exhibiting difficulty speaking. The patient does not exhibit difficulty understanding words. The patient is able to swallow own secretions with no drooling or need for suction. Patient tolerated one teaspoon of water. No drooling, immediate coughing, gurgling, or clearing of the throat was noted. The patient tolerated 90mL of water. No drooling, immediate coughing, gurgling, or clearing of the throat was noted. The patient passed the bedside swallow screening. Oral medications may be given as ordered. Contact Physician for further diet orders. Provider notified of bedside swallow screening results: Giovanni Xiong MD. Assessment: 14:46 Reassessment: No changes from previously documented assessment. tl3 15:38 Reassessment: Patient appears in no apparent distress at this time. No changes from tl3 previously documented assessment. Patient and/or family updated on plan of care and expected duration. Pain level reassessed. Patient is alert, oriented x 3, equal unlabored respirations, skin warm/dry/pink. pt has no needs at this time, Dr Xiong at bedside discussing POC. 17:01 Reassessment: Patient appears in no apparent distress at this time. No changes from tl3 previously documented assessment. Patient and/or family updated on plan of care and expected duration. Pain level reassessed. Patient is alert, oriented x 3, equal unlabored respirations, skin warm/dry/pink. pt reported that her IV site was becoming painful, IV removed, dressing placed. Vital Signs: 14:42 BP 146 / 81; Pulse 62; Resp 18; Pulse Ox 99% on R/A; tl3 15:38 BP 143 / 73; Pulse 64; Resp 18; Pulse Ox 100% on R/A; tl3 17:01 BP 149 / 60; Pulse 64; Resp 18; Pulse Ox 99% ; tl3 NIH Stroke Scale Scores: 14:35 NIHSS Score: 0 tl3 ED Course: 14:[address] tl3 14:36 Patient arrived in ED. rn 14:37 Hannah Rosales, JULIEN is Primary Nurse. tl3 14:40 Triage completed. tl3 14:40 Giovanni Xiong MD is Attending Physician. rn 14:42 Arm band placed on left wrist. tl3 14:45 CT Stroke Brain w/o Contrast In Process Unspecified. EDMS 14:46 Patient has correct armband on for positive identification. Placed in gown. Bed in low tl3 position. sharepoint web developer on. Pulse ox on. NIBP on. 14:54 Inserted saline lock: 22 gauge in left antecubital area, using aseptic technique. Blood ss collected. 15:04 EKG done, by waste transportation technician. reviewed by Giovanni Xiong MD. at1 15:08 Warm blanket given. tl3 15:08 No provider procedures requiring assistance completed. tl3 15:13 Chest Single View In Process Unspecified. EDMS 17:01 IV discontinued, intact, bleeding controlled, No redness/swelling at site. Pressure tl3 dressing applied. Administered Medications: 15:15 Drug: NS 0.9% 500 ml Route: IV; Rate: bolus; Site: left antecubital; Delivery: Primary tl3 tubing; 15:40 Follow up: Rate change 124 ml/hr; IV Status: Completed infusion; IV Intake: 500ml tl3 16:03 Drug: morphine 4 mg Route: IVP; Infused Over: 2 mins; Site: left antecubital; tl3 17:03 Follow up: Response: Pain is decreased tl3 16:04 Drug: Decadron - Dexamethasone 10 mg Route: IVP; Infused Over: 2 mins; Site: left tl3 antecubital; 17:03 Follow up: Response: No adverse reaction tl3 Point of Care Testing: Blood Glucose: 14:50 Blood Glucose: 102 mg/dL; tl3 Ranges: Intake: 15:40 IV: 500ml; Total: 500ml. tl3 Outcome: 17:11 Discharge ordered by . rn 17:20 Discharged to home ambulatory. tl3 17:20 Condition: stable 17:20 Discharge instructions given to patient, Instructed on discharge instructions, follow up and referral plans. medication usage, Demonstrated understanding of instructions, follow-up care, medications, Prescriptions given X 2. 17:25 Patient left the ED. tl3 NIH Stroke Scale - NIH Stroke Score Date: 12/12/2017 Time: 14:35 Total Score = 0 1a. Level of Consciousness (LOC) - 0(Alert) 1b. Level of Consciousness (LOC) (Year \T\ Age) - 0(Both) 1c. LOC Commands (Open \T\ Closes Eyes/Vice President Risk Management) - 0(Both) 2. Best Gaze (Lateral Gaze Paresis) - 0(Normal) 3. Visual Field Loss - 0(No visual loss) 4. Facial Palsy - 0(Normal) 5a. Left Arm: Motor (10-second hold) - 0(No drift) 5b. Right Arm: Motor (10-second hold) - 0(No drift) 6a. Left Leg: Motor (5-second hold - always test supine) - 0(No drift) 6b. Right Leg: Motor (5-second hold - always test supine) - 0(No drift) 7. Limb Ataxia (finger/nose \T\ heel/ron - test with eyes open) - 0(Absent) 8. Sensory Loss (pinprick arms/legs/face) - 0(Normal) 9. Best Language: Aphasia (description/naming/reading) - 0(No aphasia) 10. Dysarthria (speech clarity - read or repeat words) - 0(Normal) 11. Extinction and Inattention (visual/tactile/auditory/spatial/personal) - 0(No abnormality) Initials: tl3 Signatures: Dispatcher [employer] EDMS Giovanni Xiong MD MD rn Smirch, Shelby, RN RN ss Katey Rodriguez, instructor painting EKG Tat1 Hannah Rosales RN RN tl3 Corrections: (The following items were deleted from the chart) 14:48 14:[address] tl3 tl3 14:58 14:57 Inserted saline lock: 22 gauge in left antecubital area, using aseptic ss technique. Blood collected. ss
[2017-12-12 17:31] VITALS: BP 149/60; O2SAT 99
--- NOTE | 2017-12-13 06:51 | EKG ---
Test Date: 2017-12-12 Test Time: 15:02:01 Carbon Lamp Cleaner: JACQUELINE MEASUREMENT RESULTS: Intervals: Rate: 61 DC: 178 QRSD: 104 QT: 498 QTc: 501 [place]: P: 47 DC: 178 QRS: -9 T: 114 INTERPRETIVE STATEMENTS: Normal sinus rhythm Voltage criteria for left ventricular hypertrophy ST elevation, consider early repolarization, pericarditis, or injury T wave abnormality, consider lateral ischemia Prolonged QT Abnormal ECG Compared to ECG 11/04/2017 20:53:26 Prolonged QT interval now present ST (T wave) deviation still present T-wave abnormality still present Possible ischemia still present Electronically Signed On 12-13-17 06:49:15 CDT by Giovanni Brewster
== END 2017-12-12 17:25 | disposition home or self-care (01) ==
LOC: ER 14:33
DX: M54.10 Radiculopathy, site unspecified (principal); I10 Essential (primary) hypertension; E78.5 Hyperlipidemia, unspecified; E11.9 Type 2 diabetes mellitus without complications; I25.2 Old myocardial infarction; F32.9 Major depressive disorder, single episode, unspecified; F41.9 Anxiety disorder, unspecified; Z79.01 Long term (current) use of anticoagulants; Z79.82 Long term (current) use of aspirin; Z88.2 Allergy status to sulfonamides; Z86.73 Personal history of transient ischemic attack (TIA), and cerebral infarction without residual deficits
CPT/HCPCS: 36415; 70450; 71045; 80048; 82962; 84484; 85025; 85610; 85730; 93005; 96374; 96375; 99285; J1100; J7030

== ENCOUNTER 2018-01-29 13:47 | Emergency (ER) | payer MEDICAID ==
--- OUTSIDE RECORDS SUMMARY | 2018-01-29 13:55 | XMS REPORT | Clinical Summary ---
:1965 Author Organization [facility] Address [address] [place] [address] Care Team Providers Name Role Phone Jael Lozano MD Primary Care Provider Allergies Active Allergy Reactions Severity Noted Date Comments Morphine Rash Low Sulfa (Sulfonamide Antibiotics) Rash Low Medications Medication Sig Dispensed Refills Start Date End Date Status amLODIPine (NORVASC) Take 10 mg by mouth 0 Active 10 MG tablet daily. metFORMIN Take 500 mg by 0 Active (GLUCOPHAGE) 500 MG mouth 2 (two) times tablet daily with breakfast and dinner. DULoxetine (CYMBALTA) Take 30 mg by mouth 0 Active 30 MG capsule every morning. DULoxetine (CYMBALTA) Take 60 mg by mouth 0 Active 60 MG capsule nightly. aspirin 81 MG EC Take 81 mg by mouth 0 Active tablet daily. Active Problems Problem Noted Date CVA (cerebral vascular accident) 09/08/2015 Right-sided muscle weakness 09/01/2015 Aphasia 09/01/2015 Type 2 diabetes mellitus 08/31/2015 HTN (hypertension) 08/31/2015 Metabolic syndrome 08/31/2015 Morbid obesity 08/31/2015 History of gastric surgery 08/31/2015 History of MO (myocardial infarction) 08/31/2015 H/O section 08/31/2015 Smoking history 08/31/2015 Acute CVA (cerebrovascular accident) 08/30/2015 Social History Tobacco Use Types Packs/Day Years Used Date Never Smoker Alcohol Use Drinks/Week oz/Week Comments No Sex Assigned at Date Recorded Not on file Job Start Date Occupation Industry Not on file Not on file Not on file Travel History Travel Start Travel End No recent travel history available. Last Filed Vital Signs Not on file Plan of Treatment Not on file Results Not on fileafter 01/28/2017 Insurance Payer Benefit Plan / Group Subscriber ID Type Phone Address [place] xxxxxxxxx Advance Directives For more information, please contact:[address] [phone] Code Status Date Activated Date Inactivated Comments Full Code 09/07/2015 9:59 PM 09/08/2015 3:23 PM This code status was determined by: Patient Full Code 08/30/2015 7:48 PM 09/01/2015 2:01 PM This code status was determined by: Patient
[2018-01-29] MEDS ORDERED: MEPERIDINE HCL 25 MG/0.5 ML ONE (14:29)
[2018-01-29] MEDS ORDERED: CYCLOBENZAPRINE 10 MG TAB ONE (14:29)
[2018-01-29] MEDS ORDERED: DEXAMETHASONE 10 MG/ML VIAL ONE (14:30)
--- NOTE | 2018-01-29 15:33 | EKG ---
Test Date: 2018-01-29 Test Time: 13:47:33 Merchandising Director: AG/V MEASUREMENT RESULTS: Intervals: Rate: 72 OR: 180 QRSD: 98 QT: 452 QTc: 494 [place]: P: 60 OR: 180 QRS: -12 T: 76 INTERPRETIVE STATEMENTS: Normal sinus rhythm Voltage criteria for left ventricular hypertrophy Prolonged QT Abnormal ECG Compared to ECG 12/12/2017 15:02:01 ST (T wave) deviation no longer present T-wave abnormality no longer present Possible ischemia no longer present Electronically Signed On 01-29-18 15:32:46 LIVESTOCK SPECULATOR by Jamal Alvarado
--- NOTE | 2018-01-29 16:12 | RAD REPORT ---
EXAM DESCRIPTION: RAD - Chest Single View - 01/29/2018 3:47 pm CLINICAL HISTORY: Chest pain COMPARISON: December 12 TECHNIQUE: AP portable chest image was obtained 1515 hours . FINDINGS: Lungs are clear. Lung markings are similar to comparison. Heart and vasculature are normal . No measurable pleural effusion and no pneumothorax. No acute bony abnormality seen. No acute aortic findings suspected. IMPRESSION: No acute cardiopulmonary process. No significant interval change.
--- NOTE | 2018-01-29 16:15 | RAD REPORT ---
EXAM DESCRIPTION: RAD - Lumbar Spine 3 Views - 01/29/2018 3:47 pm CLINICAL HISTORY: Back pain radiating to the left lower extremity COMPARISON: June 2016 FINDINGS: A three-view lumbar spine examination was performed. Lumbar bodies are normal in height an d alignment. No fracture or acute bony process seen. No disc space narrowing. Mid and lower lumbar fa cet degenerative change present. This is not substantially different from comparison. No pars defects identified. IMPRESSION: No acute bone or disc finding. Facet degenerative changes present in the lower lumbar sp ine. Concerns for disc herniation, central canal abnormality or occult bone process can be addressed with MR imaging.
--- NOTE | 2018-01-29 16:30 | ER ---
Nurse's Notes [facility] Name: Che Helton Age: 52 yrs Sex: Female : 1965 Arrival Date: 01/29/2018 Time: 13:49 Bed 24 Private MD: Diagnosis: Chest pain, unspecified;Radiculopathy, lumbar region Presentation: 01/29 13:50 Presenting complaint: EMS states: Intermittent substernal chest pain since she woke up aj1 this morning at 0745. Patient also reports lower back pain that radiates down the left leg that started after she was lifting something. Transition of care: patient was not received from another setting of care. Onset of symptoms was January 29, 2018 at 07:45. Risk Assessment: Do you want to hurt yourself or someone else? Patient reports no desire to harm self or others. Initial Sepsis Screen: Does the patient meet any 2 criteria? No. Patient's initial sepsis screen is negative. Does the patient have a suspected source of infection? No. Patient's initial sepsis screen is negative. Care prior to arrival: None. 13:50 Method Of Arrival: EMS: [facility] 13:50 Acuity: NELY 3 aj1 Triage Assessment: 13:54 General: Appears in no apparent distress. comfortable, Behavior is calm, cooperative, aj1 appropriate for age. Pain: Complains of pain in low back area and mid-sternal area Pain radiates to left leg Pain currently is 10 out of 10 on a pain scale. Quality of pain is described as sharp, Pain began 6 hours ago Is intermittent. EENT: No signs and/or symptoms were reported regarding the EENT system. Cardiovascular: Patient's skin is warm and dry. Historical: - Allergies: 13:54 Sulfa (Sulfonamide Antibiotics); aj1 - Home Meds: 13:54 amlodipine 25 mg tab 1 tab once daily [Active]; aspirin 81 mg Oral chew 1 tab once aj1 daily [Active]; Cymbalta 30mg in the morning, 60mg at night Oral [Active]; metformin 500 mg Oral tab 1 tab 2 times per day [Active]; multivitamin with minerals Oral daily [Active]; Plavix 75 mg Oral tab 1 tab once daily [Active]; Seroquel 25 mg Oral tab 1 tab nightly [Active]; - PMHx: 13:54 ADD/ADHD; Anxiety; Depression; Diabetes - NIDDM; Hyperlipidemia; Hypertension; aj1 Myocardial infarction; stroke; - PSHx: 13:54 gastric sleeve; amputation left great toe; ; foot surgery; aj1 - Immunization history:: Flu vaccine is not up to date. - Social history:: Smoking status: Patient uses tobacco products, 4 cigarettes per day. - Ebola Screening: : Patient denies travel to an Ebola-affected area in the 21 days before illness onset. - Family history:: not pertinent. - Hospitalizations: : No recent hospitalization is reported. Screenin:56 Abuse screen: Denies threats or abuse. Denies injuries from another. Nutritional aj1 screening: No deficits noted. Tuberculosis screening: No symptoms or risk factors identified. 16:38 Fall Risk None identified. aj1 Assessment: 13:56 General: Appears in no apparent distress. comfortable, Behavior is calm, cooperative, aj1 appropriate for age. Pain: Complains of pain in mid-sternal area and low back area Pain radiates to left leg Pain currently is 10 out of 10 on a pain scale. Quality of pain is described as sharp, Pain began 6 hours ago Is intermittent. Neuro: Level of Consciousness is awake, alert, obeys commands. Cardiovascular: Reports chest pain, Heart tones S1 S2 present Patient's skin is warm and dry. Rhythm is sinus rhythm. Respiratory: Airway is patent Respiratory effort is even, unlabored, Respiratory pattern is regular, symmetrical, Breath sounds with wheezes bilaterally. GI: No signs and/or symptoms were reported involving the gastrointestinal system. : No signs and/or symptoms were reported regarding the genitourinary system. EENT: No signs and/or symptoms were reported regarding the EENT system. Derm: No signs and/or symptoms reported regarding the dermatologic system. Skin is pink, warm \T\ dry. normal. Musculoskeletal: No signs and/or symptoms reported regarding the musculoskeletal system. Circulation, motion, and sensation intact. 15:02 Reassessment: Patient appears in no apparent distress at this time. No changes from aj1 previously documented assessment. Patient and/or family updated on plan of care and expected duration. Pain level reassessed. Patient is alert, oriented x 3, equal unlabored respirations, skin warm/dry/pink. 16:15 Reassessment: Patient appears in no apparent distress at this time. No changes from aj1 previously documented assessment. Patient and/or family updated on plan of care and expected duration. Pain level reassessed. Patient is alert, oriented x 3, equal unlabored respirations, skin warm/dry/pink. 17:16 Reassessment: Patient appears in no apparent distress at this time. No changes from aj1 previously documented assessment. Patient and/or family updated on plan of care and expected duration. Pain level reassessed. Patient is alert, oriented x 3, equal unlabored respirations, skin warm/dry/pink. Vital Signs: 13:54 BP 121 / 81; Pulse 65; Resp 16; Temp 98.4; Pulse Ox 99% on R/A; Weight 99.79 kg (R); aj1 Height 5 ft. 3 in. (160.02 cm) (R); Pain 10/10; 15:02 BP 122 / 70; Pulse 72; Resp 18; Pulse Ox 100% on R/A; aj1 16:15 BP 131 / 60; Pulse 65; Resp 18; Pulse Ox 100% on R/A; aj1 13:54 Body Mass Index 38.97 (99.79 kg, 160.02 cm) aj1 ED Course: 13:49 Patient arrived in ED. aj1 13:51 Triage completed. aj1 13:54 Arm band placed on. aj1 13:56 Patient has correct armband on for positive identification. desk monitor on. Pulse aj1 ox on. NIBP on. 13:56 No provider procedures requiring assistance completed. Initial lab(s) drawn, by co, aj1 sent to lab. Inserted saline lock: 20 gauge in left antecubital area, using aseptic technique. Blood collected. Patient maintains SpO2 saturation greater than 95% on room air. 14:00 Giovanni Xinog MD is Attending Physician. rn 14:00 EKG done, by design technician. 14:10 Tessa Dos Santos, JULIEN is Primary Nurse. aj1 17:16 IV discontinued, intact, bleeding controlled, No redness/swelling at site. Pressure aj1 dressing applied. Administered Medications: 14:37 Drug: Decadron - Dexamethasone 10 mg Route: IVP; Site: left antecubital; aj1 16:39 Follow up: Response: No adverse reaction aj1 14:38 Drug: Flexeril 10 mg Route: PO; aj1 16:39 Follow up: Response: No adverse reaction aj1 14:38 Drug: Demerol 25 mg Route: IVP; Site: left antecubital; aj1 16:39 Follow up: Response: No adverse reaction aj1 Outcome: 16:30 Discharge ordered by . rn 17:17 Discharged to home ambulatory. aj1 17:17 Condition: good 17:17 Discharge instructions given to patient, Instructed on discharge instructions, follow up and referral plans. no drinking with medication, no driving heavy equipment, medication usage, Demonstrated understanding of instructions, follow-up care, medications, Prescriptions given X 3. 17:18 Patient left the ED. aj1 Signatures: Tessa Dos Santos RN RN aj1 Giovanni Xiong MD MD rn Harrell, Venessa
--- NOTE | 2018-01-29 16:31 | EDPHYS ---
Physician Documentation [facility] Name: Che Helton Age: 52 yrs Sex: Female : 1965 Arrival Date: 01/29/2018 Time: 13:49 Bed 24 Private MD: ED Physician Giovanni Xiong HPI: 01/29 14:22 This 52 yrs old Black Female presents to ER via EMS with complaints of Chest Pain. rn 14:22 The patient or guardian reports chest pain that is located primarily in the chest rn diffusely. Onset: today. The pain does not radiate. The chest pain is described as aching. Severity of pain: At its worst the pain was mild in the emergency department the pain has improved. The patient has experienced similar episodes in the past. The patient has not recently seen a physician. 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 + low back pain that radiates down left leg, no weakness or bowel/bladder issues. . Historical: - Allergies: 13:54 Sulfa (Sulfonamide Antibiotics); aj1 - Home Meds: 13:54 amlodipine 25 mg tab 1 tab once daily [Active]; aspirin 81 mg Oral chew 1 tab once aj1 daily [Active]; Cymbalta 30mg in the morning, 60mg at night Oral [Active]; metformin 500 mg Oral tab 1 tab 2 times per day [Active]; multivitamin with minerals Oral daily [Active]; Plavix 75 mg Oral tab 1 tab once daily [Active]; Seroquel 25 mg Oral tab 1 tab nightly [Active]; - PMHx: 13:54 ADD/ADHD; Anxiety; Depression; Diabetes - NIDDM; Hyperlipidemia; Hypertension; aj1 Myocardial infarction; stroke; - PSHx: 13:54 gastric sleeve; amputation left great toe; ; foot surgery; aj1 - Immunization history:: Flu vaccine is not up to date. - Social history:: Smoking status: Patient uses tobacco products, 4 cigarettes per day. - Ebola Screening: : Patient denies travel to an Ebola-affected area in the 21 days before illness onset. - Family history:: not pertinent. - Hospitalizations: : No recent hospitalization is reported. ROS: 14:22 Constitutional: Negative for fever, chills, and weight loss, Eyes: Negative for injury, rn pain, redness, and discharge, Cardiovascular: Negative for palpitations, and edema, Respiratory: Negative for shortness of breath, cough, wheezing, and pleuritic chest pain, Abdomen/GI: Negative for abdominal pain, nausea, vomiting, diarrhea, and constipation, Back: + low back pain MS/Extremity: Negative for injury and deformity, Skin: Negative for injury, rash, and discoloration, Neuro: Negative for headache, weakness, numbness, tingling, and seizure. Exam: 14:22 Constitutional: This is a well developed, well nourished patient who is awake, alert, rn and in no acute distress. Head/Face: Normocephalic, atraumatic. Eyes: Pupils equal round and reactive to light, extra-ocular motions intact. Lids and lashes normal. Conjunctiva and sclera are non-icteric and not injected. Cornea within normal limits. Periorbital areas with no swelling, redness, or edema. Cardiovascular: Regular rate and rhythm with a normal S1 and S2. No pulse deficits. Respiratory: Lungs have equal breath sounds bilaterally, clear to auscultation. No increased work of breathing, no retractions or nasal flaring. Abdomen/GI: soft, non-tender Back: No spinal tenderness. Skin: Warm, dry MS/ Extremity: Pulses equal, no cyanosis. Neurovascular intact. Full, normal range of motion. Equal circumference. Neuro: Awake and alert, GCS 15, oriented to person, place, time, and situation. Cranial nerves II-XII grossly intact. Motor strength 5/5 in all extremities. Sensory grossly intact. Vital Signs: 13:54 BP 121 / 81; Pulse 65; Resp 16; Temp 98.4; Pulse Ox 99% on R/A; Weight 99.79 kg (R); aj1 Height 5 ft. 3 in. (160.02 cm) (R); Pain 10/10; 15:02 BP 122 / 70; Pulse 72; Resp 18; Pulse Ox 100% on R/A; aj1 16:15 BP 131 / 60; Pulse 65; Resp 18; Pulse Ox 100% on R/A; aj1 13:54 Body Mass Index 38.97 (99.79 kg, 160.02 cm) aj1 MDM: 14:00 Patient medically screened. rn 16:29 Differential diagnosis: anxiety, costochondritis, gastroesophageal reflux disease rn (GERD), pleurisy, pneumothorax. Data reviewed: vital signs, nurses notes, lab test result(s), EKG, radiologic studies, plain films, and as a result, I will discharge patient. Counseling: I had a detailed discussion with the patient and/or guardian regarding: the historical points, exam findings, and any diagnostic results supporting the discharge/admit diagnosis, lab results, radiology results, the need for outpatient follow up, to return to the emergency department if symptoms worsen or persist or if there are any questions or concerns that arise at home. Special discussion: Based on the patient's history, exam, and Dx evaluation, there is no indication for emergent intervention or inpatient Tx. It is understood by the patient/guardian that if the Sx's persist or worsen they need to return immediately for re-evaluation. I discussed with the patient/guardian in detail that at this point there is no indication for admission to the hospital. It is understood, however, that if the symptoms persist or worsen the patient needs to return immediately for re-evaluation. 01/29 14:03 Order name: Troponin (emerg Dept Use Only) rn 01/29 15:04 Order name: Troponin (Emerg Dept Use Only); Complete Time: 15:24 EDIN 01/29 16:11 Order name: Urine Dipstick--Ancillary (enter results) 01/29 16:11 Order name: Urine --Ancillary (enter results) 01/29 16:49 Order name: Urine --Ancillary EDIN 01/29 16:49 Order name: Urine Dipstick-Ancillary EDIN 01/29 14:03 Order name: EKG; Complete Time: 14:03 rn 01/29 14:03 Order name: XRAY Chest (1 view) rn 01/29 14:07 Order name: XRAY Lumbar Spine (3 Views) rn 01/29 16:14 Order name: RAD; Complete Time: 16:28 EDIN 01/29 16:15 Order name: RAD; Complete Time: 16:28 EDIN 01/29 14:03 Order name: IV Start; Complete Time: 14:10 rn 01/29 14:03 Order name: EKG - Nurse/Tech; Complete Time: 14:10 rn Administered Medications: 14:37 Drug: Decadron - Dexamethasone 10 mg Route: IVP; Site: left antecubital; aj1 16:39 Follow up: Response: No adverse reaction aj1 14:38 Drug: Flexeril 10 mg Route: PO; aj1 16:39 Follow up: Response: No adverse reaction aj1 14:38 Drug: Demerol 25 mg Route: IVP; Site: left antecubital; aj1 16:39 Follow up: Response: No adverse reaction aj1 Disposition: 01/29/18 16:30 Discharged to Home. Impression: Chest pain, unspecified, Radiculopathy, lumbar region. - Condition is Stable. - Discharge Instructions: Nonspecific Chest Pain, Lumbosacral Radiculopathy. - Prescriptions for Tylenol- Codeine #3 300-30 mg Oral Tablet - take 1 tablet by ORAL route every 6 hours As needed; 15 tablet. Cyclobenzaprine 10 mg Oral Tablet - take 1 tablet by ORAL route every 8 hours As needed; 20 tablet. Medrol (Galileo) 4 mg Oral Tablets, Dose Pack - take 1 tablet by ORAL route as directed - follow package instructions; 1 packet. - Medication Reconciliation Form, Thank You Letter, Antibiotic Education, Prescription Opioid Use form. - Follow up: Private Physician; When: As needed; Reason: Recheck today's complaints, Re-evaluation by your physician. - Problem is new. - Symptoms have improved. Signatures: Dispatcher [employer] Tessa Spencer RN RN aj1 Giovanni Xiong MD MD yarn texture machine operator: (The following items were deleted from the chart) 17:18 16:30 01/29/2018 16:30 Discharged to Home. Impression: Chest pain, unspecified; aj1 Radiculopathy, lumbar region. Condition is Stable. Forms are Medication Reconciliation Form, Thank You Letter, Antibiotic Education, Prescription Opioid Use. Follow up: Private Physician; When: As needed; Reason: Recheck today's complaints, Re-evaluation by your physician. Problem is new. Symptoms have improved. rn
[2018-01-29 16:48] LABS: Urine Blood NEGATIVE (NEG); Urine Glucose NEGATIVE (NEG); Urine Protein NEGATIVE (NEG); Urine pH 5.5 (5.0-7.0)
[2018-01-29 17:38] VITALS: TEMP 98.4
[2018-01-29 17:39] VITALS: O2SAT 100
[2018-01-29 17:40] VITALS: BP 131/60
== END 2018-01-29 17:18 | disposition home or self-care (01) ==
LOC: ER 13:47
DX: M54.16 Radiculopathy, lumbar region (principal); R07.9 Chest pain, unspecified; R94.31 Abnormal electrocardiogram [ECG] [EKG]; E11.9 Type 2 diabetes mellitus without complications; E78.5 Hyperlipidemia, unspecified; I10 Essential (primary) hypertension; I25.2 Old myocardial infarction; F32.9 Major depressive disorder, single episode, unspecified; F41.9 Anxiety disorder, unspecified; F90.9 Attention-deficit hyperactivity disorder, unspecified type; F17.210 Nicotine dependence, cigarettes, uncomplicated; Z79.84 Long term (current) use of oral hypoglycemic drugs; Z79.02 Long term (current) use of antithrombotics/antiplatelets; Z79.82 Long term (current) use of aspirin; Z79.899 Other long term (current) drug therapy; Z86.73 Personal history of transient ischemic attack (TIA), and cerebral infarction without residual deficits
CPT/HCPCS: 36415; 71045; 72100; 81003; 81025; 84484; 93005; 96374; 96375; 99285; J1100; J2175

== ENCOUNTER 2018-03-04 14:46 | Emergency (ER) | payer MEDICAID, OTHER ==
--- OUTSIDE RECORDS SUMMARY | 2018-03-04 14:50 | XMS REPORT | Clinical Summary ---
:1965 Author Organization [facility] Address [address] [place] [address] Care Team Providers Name Role Phone Jael [...] History of gastric surgery 08/31/2015 History of [place] (myocardial infarction) 08/31/2015 H/O section 08/31/2015 Smoking [...] Not on file Results Not on fileafter 03/03/2017 Insurance Payer Benefit Plan / Group Subscriber ID Type Phone Address [place] xxxxxxxxx Advance Directives For more information, please contact:[address] [phone] Code Status Date Activated Date Inactivated Comments Full Code 09/07/2015 9:59 PM 09/08/2015 3:23 PM This code status was determined by: Patient Full Code 08/30/2015 7:48 PM 09/01/2015 2:01 PM This code status was determined by: Patient
--- OUTSIDE RECORDS SUMMARY | 2018-03-04 14:50 | XMS REPORT ---
:1965 Author Organization [employer] Care Team Providers Name Role Phone Orlando Burnett Provider Role Unavailable Allergies No Known Allergies Problems Problem Type Condition Code Onset Dates Condition Status Problem Mixed hyperlipidemia E78.2 Active Problem Depression with anxiety F41.8 Active Problem Seasonal allergies J30.2 Active Problem GERD without esophagitis K21.9 Active Problem Controlled type 2 diabetes mellitus E11.9 Active without complication, without long-term current use of insulin Problem History of CVA (cerebrovascular Z86.73 Active accident) without residual deficits Problem HTN (hypertension), benign I10 Active Problem Chronic pain syndrome G89.4 Active Problem Bipolar affective disorder, current F31.30 Active episode depressed, current episode severity unspecified Problem Neuropathy G62.9 Active Medications No Known Medications Results No Known Results Summary Purpose [employer] Submission
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
[2018-03-04] MEDS ORDERED: KETOROLAC 30 MG/ML INJ ONE (15:56)
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
[2018-03-04 17:53] VITALS: TEMP 98.2
[2018-03-04 17:54] VITALS: O2SAT 100
[2018-03-04 17:56] VITALS: BP 146/94
== END 2018-03-04 16:23 | disposition home or self-care (01) ==
LOC: ER 14:46
DX: M54.2 Cervicalgia (principal); M54.5 Low back pain; V49.40XA Driver injured in collision with unspecified motor vehicles in traffic accident, initial encounter; Y92.481 Parking lot as the place of occurrence of the external cause; E11.9 Type 2 diabetes mellitus without complications; E78.5 Hyperlipidemia, unspecified; I10 Essential (primary) hypertension; I25.2 Old myocardial infarction; F32.9 Major depressive disorder, single episode, unspecified; F41.9 Anxiety disorder, unspecified; Z79.82 Long term (current) use of aspirin; Z79.84 Long term (current) use of oral hypoglycemic drugs; Z79.02 Long term (current) use of antithrombotics/antiplatelets; Z79.899 Other long term (current) drug therapy; Z86.73 Personal history of transient ischemic attack (TIA), and cerebral infarction without residual deficits; Z72.0 Tobacco use
CPT/HCPCS: 72125; 72131; 96372; 99284

== ENCOUNTER 2018-04-14 17:14 | Observation (INO) | payer OTHER ==
--- OUTSIDE RECORDS SUMMARY | 2018-04-14 17:16 | XMS REPORT | Clinical Summary ---
:1965 Author Organization [facility] Address [address] [place] [address] Care Team Providers Name Role Phone Jael [...] History of gastric surgery 08/31/2015 History of RI (myocardial infarction) 08/31/2015 H/O section 08/31/2015 Smoking [...] Not on file Results Not on fileafter 04/13/2017 Insurance Payer Benefit Plan / Group Subscriber ID Type Phone Address [place] xxxxxxxxx Advance Directives For more information, please contact:[address] [phone] Code Status Date Activated Date Inactivated Comments Full Code 09/07/2015 9:59 PM 09/08/2015 3:23 PM This code status was determined by: Patient Full Code 08/30/2015 7:48 PM 09/01/2015 2:01 PM This code status was determined by: Patient
[2018-04-14 17:59] LABS: Absolute Lymphocytes (CBC) 2.4 K/uL (0.7-4.9); Absolute Monocytes 0.3 K/uL (0.1-1.3); Absolute Neutrophil 4.8 K/uL (1.8-8.0); Basophils % 0.6 % (0-1.3); Hematocrit 37.6 % (36.0-45.0); Lymphocytes % 31.5 % (15.3-44.8); MPV 8.8 fL (7.6-11.3); Monocytes % 3.8 % (3.3-12.3); RBC Red Blood Cell Count 4.43 M/uL (3.86-4.86)
[2018-04-14 18:08] LABS: Protime INR 1.05
[2018-04-14 18:19] LABS: ALT/SGPT 17 U/L (12-78); AST/SGOT 12 U/L (15-37); Albumin 3.4 g/dL (3.4-5.0); Alkaline Phosphatase 102 U/L (45-117); BUN Blood Urea Nitrogen 9 mg/dL (7-18); Bicarbonate 24 mmol/L (21-32); Bilirubin Direct < 0.1 mg/dL (0-0.2); Bilirubin Total 0.3 mg/dL (0.2-1.0); Glucose Level 95 mg/dL (74-106); Magnesium 1.7 mg/dL (1.8-2.4); NT PRO-BNP 57 pg/mL (<125); Potassium 3.6 mmol/L (3.5-5.1); Protein, Total 7.3 g/dL (6.4-8.2); Sodium Level 142 mmol/L (136-145); Troponin (Emerg Dept Use Only) < 0.02 ng/mL (0.0-0.045)
--- NOTE | 2018-04-14 18:30 | EDPHYS ---
Physician Documentation [facility] Name: Che Helton Age: 52 yrs Sex: Female : 1965 Arrival Date: 04/14/2018 Time: 17:17 Bed 8 Private MD: ED Physician Wang Olivas HPI: 04/14 18:25 This 52 yrs old Black Female presents to ER via EMS with complaints of Chest Pain > 30 ernie y/o, Shortness Of Breath. 18:25 The patient or guardian reports chest pain that is located primarily in the substernal ernie area. Onset: this morning. The pain does not radiate. Associated signs and symptoms: The patient has no apparent associated signs or symptoms. The chest pain is described as a heaviness. Modifying factors: The symptoms are alleviated by nothing. the symptoms are aggravated by nothing. Severity of pain: At its worst the pain was mild moderate in the emergency department the pain has improved mildly. 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 tw2 Historical: - Allergies: 17:28 Sulfa (Sulfonamide Antibiotics); tw2 - Home Meds: 17:28 Seroquel 25 mg Oral tab 1 tab nightly [Active]; amlodipine 25 mg tab 1 tab once daily tw2 [Active]; aspirin 81 mg Oral chew 1 tab once daily [Active]; Cymbalta 30mg in the morning, 60mg at night Oral [Active]; metformin 500 mg Oral tab 1 tab 2 times per day [Active]; multivitamin with minerals Oral daily [Active]; Plavix 75 mg Oral tab 1 tab once daily [Active]; - PMHx: 17:28 ADD/ADHD; Anxiety; Depression; Diabetes - NIDDM; Hyperlipidemia; Hypertension; tw2 Myocardial infarction; stroke; - PSHx: 17:28 amputation left great toe; ; gastric sleeve; foot surgery; tw2 - Immunization history:: Adult Immunizations. - Social history:: Smoking status: . - Ebola Screening: : Patient denies travel to an Ebola-affected area in the 21 days before illness onset. - Family history:: not pertinent. ROS: 18:25 Constitutional: Negative for fever, chills, and weight loss, Eyes: Negative for injury, ernie pain, redness, and discharge, ENT: Negative for injury, pain, and discharge, Neck: Negative for injury, pain, and swelling, Respiratory: Negative for shortness of breath, cough, wheezing, and pleuritic chest pain, Abdomen/GI: Negative for abdominal pain, nausea, vomiting, diarrhea, and constipation, Back: Negative for injury and pain, : Negative for injury, bleeding, discharge, and swelling, MS/Extremity: Negative for injury and deformity, Skin: Negative for injury, rash, and discoloration, Neuro: Negative for headache, weakness, numbness, tingling, and seizure, Psych: Negative for depression, anxiety, suicide ideation, homicidal ideation, and hallucinations, Allergy/Immunology: Negative for hives, rash, and allergies, Endocrine: Negative for neck swelling, polydipsia, polyuria, polyphagia, and marked weight changes, Hematologic/Lymphatic: Negative for swollen nodes, abnormal bleeding, and unusual bruising. 18:25 Cardiovascular: Positive for chest pain, of the chest. Exam: 18:25 Constitutional: This is a well developed, well nourished patient who is awake, alert, ernie and in no acute distress. Head/Face: Normocephalic, atraumatic. Eyes: Pupils equal round and reactive to light, extra-ocular motions intact. Lids and lashes normal. Conjunctiva and sclera are non-icteric and not injected. Cornea within normal limits. Periorbital areas with no swelling, redness, or edema. ENT: Nares patent. No nasal discharge, no septal abnormalities noted. Tympanic membranes are normal and external auditory canals are clear. Oropharynx with no redness, swelling, or masses, exudates, or evidence of obstruction, uvula midline. Mucous membranes moist. Neck: Trachea midline, no thyromegaly or masses palpated, and no cervical lymphadenopathy. Supple, full range of motion without nuchal rigidity, or vertebral point tenderness. No Meningismus. Chest/axilla: Normal chest wall appearance and motion. Nontender with no deformity. No lesions are appreciated. Cardiovascular: Regular rate and rhythm with a normal S1 and S2. No gallops, murmurs, or rubs. Normal PMI, no JVD. No pulse deficits. Respiratory: Lungs have equal breath sounds bilaterally, clear to auscultation and percussion. No rales, rhonchi or wheezes noted. No increased work of breathing, no retractions or nasal flaring. Abdomen/GI: Soft, non-tender, with normal bowel sounds. No distension or tympany. No guarding or rebound. No evidence of tenderness throughout. Back: No spinal tenderness. No costovertebral tenderness. Full range of motion. Skin: Warm, dry with normal turgor. Normal color with no rashes, no lesions, and no evidence of cellulitis. MS/ Extremity: Pulses equal, no cyanosis. Neurovascular intact. Full, normal range of motion. Neuro: Awake and alert, GCS 15, oriented to person, place, time, and situation. Cranial nerves II-XII grossly intact. Motor strength 5/5 in all extremities. Sensory grossly intact. Cerebellar exam normal. Normal gait. Psych: Awake, alert, with orientation to person, place and time. Behavior, mood, and affect are within normal limits. Vital Signs: 17:19 BP 137 / 86; Pulse 65; Resp 19; Temp 98.4(O); Pulse Ox 95% on R/A; Pain 10/10; tw2 18:08 BP 116 / 76; Pulse 78; Resp 17; Pulse Ox 98% on R/A; tw2 18:28 Weight 99.79 kg (R); tw2 19:00 BP 108 / 88; Pulse 70; Resp 18; Pulse Ox 97% on R/A; Pain 0/10; aa1 20:23 BP 109 / 61; Pulse 74; Resp 20; Temp 98.5; Pulse Ox 96% on R/A; aa1 MDM: 18:15 Patient medically screened. [facility] 18:25 Data reviewed: vital signs, nurses notes, lab test result(s), EKG, radiologic studies, ernie plain films. 04/14 17:41 Order name: Basic Metabolic Panel; Complete Time: 18:23 tw2 04/14 17:41 Order name: CBC with Diff; Complete Time: 18:18 tw2 04/14 17:41 Order name: LFT's; Complete Time: 18:23 tw2 04/14 17:41 Order name: Magnesium; Complete Time: 18:23 tw2 04/14 17:41 Order name: NT PRO-BNP; Complete Time: 18:23 tw2 04/14 17:41 Order name: PT-INR; Complete Time: 18:53 tw2 04/14 17:41 Order name: Troponin (emerg Dept Use Only); Complete Time: 18:23 tw2 04/14 17:41 Order name: XRAY Chest (1 view); Complete Time: 18:53 tw2 04/14 17:41 Order name: EKG; Complete Time: 17:43 tw2 04/14 17:41 Order name: Cardiac monitoring; Complete Time: 17:42 tw2 04/14 17:41 Order name: EKG - Nurse/Tech; Complete Time: 17:42 tw2 04/14 17:41 Order name: IV Saline Lock; Complete Time: 17:42 tw2 04/14 17:41 Order name: Labs collected and sent; Complete Time: 17:50 tw2 04/14 17:41 Order name: O2 Per Protocol; Complete Time: 17:42 tw2 04/14 17:41 Order name: O2 Sat Monitoring; Complete Time: 17:42 tw2 Administered Medications: 18:33 Drug: Lopressor 25 mg Route: PO; tw2 18:44 Follow up: Response: No adverse reaction tw2 18:33 Drug: Zofran 4 mg Route: IVP; Site: left forearm; tw2 18:43 Follow up: Response: No adverse reaction tw2 18:35 Drug: morphine 4 mg Route: IVP; Site: left forearm; tw2 18:43 Follow up: Response: No adverse reaction; Pain is decreased tw2 18:42 Drug: Magnesium Sulfate 1 grams Route: IVPB; Infused Over: 1 hrs; Site: left forearm; tw2 19:40 Follow up: IV Status: Completed infusion aa1 18:42 Drug: Lovenox 1 mg/kg Route: Sub-Q; Site: left lower abdomen; tw2 18:44 Follow up: Response: No adverse reaction tw2 Disposition: 04/14/18 18:29 Hospitalization ordered by Celestine Donohue for Observation. Preliminary diagnosis are Other chest pain, Type 2 diabetes mellitus, Essential (primary) hypertension, Obesity, unspecified, Hypomagnesemia. - Bed requested for Telemetry/MedSurg (observation). - Status is Observation. aa1 - Condition is Fair. - Problem is new. - Symptoms have improved. UTI on Admission? No Signatures: Dispatcher [employer] EDMS Quita Alex RN RN mw Kern, Alissa, RN RN aa1 Wang Olivas MD MD cha Wise, Tara, RN RN tw2 Corrections: (The following items were deleted from the chart) 18:38 18:29 Hospitalization Ordered by [facility] for Observation. Preliminary ernie diagnosis is Other chest pain; Type 2 diabetes mellitus; Essential (primary) hypertension; Obesity, unspecified. Bed requested for Telemetry/MedSurg (observation). Status is Observation. Condition is Fair. Problem is new. Symptoms have improved. UTI on Admission? No. ernie 19:24 18:38 04/14/2018 18:29 Hospitalization Ordered by [facility] for Observation. mw Preliminary diagnosis is Other chest pain; Type 2 diabetes mellitus; Essential (primary) hypertension; Obesity, unspecified; Hypomagnesemia. Bed requested for Telemetry/MedSurg (observation). Status is Observation. Condition is Fair. Problem is new. Symptoms have improved. UTI on Admission? No. ernie 20:54 19:24 04/14/2018 18:29 [facility] aa1 Preliminary diagnosis is Other chest pain; Type 2 diabetes mellitus; Essential (primary) hypertension; Obesity, unspecified; Hypomagnesemia. Bed requested for Telemetry/MedSurg (observation). Status is Observation. Condition is Fair. Problem is new. Symptoms have improved. UTI on Admission? No. mw
--- NOTE | 2018-04-14 18:30 | ER ---
Nurse's Notes [facility] Name: Che Helton Age: 52 yrs Sex: Female : 1965 Arrival Date: 04/14/2018 Time: 17:17 Bed 8 Private MD: Diagnosis: Other chest pain;Type 2 diabetes mellitus;Essential (primary) hypertension;Obesity, unspecified;Hypomagnesemia Presentation: 04/14 17:07 Presenting complaint: EMS states: pt started having a headache last night, started tw2 having chest pain this morning and is feeling SOB, she has htn, takes her medication she states, we gave 81mg x4. Transition of care: patient was not received from another setting of care. Onset of symptoms was April 14, 2018. Risk Assessment: Do you want to hurt yourself or someone else? Patient reports no desire to harm self or others. Initial Sepsis Screen: Does the patient meet any 2 criteria? No. Patient's initial sepsis screen is negative. Does the patient have a suspected source of infection? No. Patient's initial sepsis screen is negative. Care prior to arrival: Medication(s) given: ASA, 81 mg, x 4, IV initiated. 20 GA, in the left forearm. 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 tw2 Historical: - Allergies: 17:28 Sulfa (Sulfonamide Antibiotics); tw2 - Home Meds: 17:28 Seroquel 25 mg Oral tab 1 tab nightly [Active]; amlodipine 25 mg tab 1 tab once daily tw2 [Active]; aspirin 81 mg Oral chew 1 tab once daily [Active]; Cymbalta 30mg in the morning, 60mg at night Oral [Active]; metformin 500 mg Oral tab 1 tab 2 times per day [Active]; multivitamin with minerals Oral daily [Active]; Plavix 75 mg Oral tab 1 tab once daily [Active]; - PMHx: 17:28 ADD/ADHD; Anxiety; Depression; Diabetes - NIDDM; Hyperlipidemia; Hypertension; tw2 Myocardial infarction; stroke; - PSHx: 17:28 amputation left great toe; ; gastric sleeve; foot surgery; tw2 - Immunization history:: Adult Immunizations. - Social history:: Smoking status: . - Ebola Screening: : Patient denies travel to an Ebola-affected area in the 21 days before illness onset. - Family history:: not pertinent. Screenin:26 Abuse screen: Denies threats or abuse. Denies injuries from another. Nutritional tw2 screening: No deficits noted. Tuberculosis screening: No symptoms or risk factors identified. Fall Risk None identified. Assessment: 17:19 General: Appears in no apparent distress. obese, Behavior is cooperative, appropriate tw2 for age. Pain: Complains of pain in chest. Pain: Pain does not radiate. Pain began suddenly. Neuro: Level of Consciousness is awake, alert, obeys commands, Oriented to person, place, time, situation. Cardiovascular: Reports chest pain, shortness of breath, Heart tones S1 S2 Capillary refill < 3 seconds. Respiratory: Airway is patent Respiratory effort is even, unlabored, Respiratory pattern is regular, symmetrical, Breath sounds are clear bilaterally. GI: No signs and/or symptoms were reported involving the gastrointestinal system. Abdomen is round non-distended, obese, Reports nausea. : No signs and/or symptoms were reported regarding the genitourinary system. EENT: No signs and/or symptoms were reported regarding the EENT system. Derm: No signs and/or symptoms reported regarding the dermatologic system. 18:09 Reassessment: Patient appears in no apparent distress at this time. No changes from tw2 previously documented assessment. Patient and/or family updated on plan of care and expected duration. Pain level reassessed. Patient is alert, oriented x 3, equal unlabored respirations, skin warm/dry/pink. 19:05 Reassessment: Patient appears in no apparent distress at this time. Patient and/or aa1 family updated on plan of care and expected duration. Pain level reassessed. Patient is alert, oriented x 3, equal unlabored respirations, skin warm/dry/pink. Awaiting bed assignment Patient denies pain at this time. 20:35 Reassessment: Patient appears in no apparent distress at this time. Patient is alert, aa1 oriented x 3, equal unlabored respirations, skin warm/dry/pink. Report given to JULIEN Faustin on 2nd floor Patient states feeling better. Vital Signs: 17:19 BP 137 / 86; Pulse 65; Resp 19; Temp 98.4(O); Pulse Ox 95% on R/A; Pain 10/10; tw2 18:08 BP 116 / 76; Pulse 78; Resp 17; Pulse Ox 98% on R/A; tw2 18:28 Weight 99.79 kg (R); tw2 19:00 BP 108 / 88; Pulse 70; Resp 18; Pulse Ox 97% on R/A; Pain 0/10; aa1 20:23 BP 109 / 61; Pulse 74; Resp 20; Temp 98.5; Pulse Ox 96% on R/A; aa1 ED Course: 17:10 Placed in gown. Bed in low position. Side rails up X2. laboratory monitor on. Pulse ox on. tw2 NIBP on. Warm blanket given. 17:10 Maintain EMS IV. Dressing intact. Good blood return noted. Site clean \T\ dry. Gauge \T\ tw 2 site: 20 g LEFT FA. Patient maintains SpO2 saturation greater than 95% on room air. 17:17 Patient arrived in ED. tw2 17:19 Triage completed. tw2 17:19 Arm band placed on. tw2 17:25 Adamaris Escamilla RN is Primary Nurse. tw2 18:15 Wang Olivas MD is Attending Physician. ernie 18:28 Celestine Donohue DO is Hospitalizing Provider. ernie 18:29 XRAY Chest (1 view) In Process Unspecified. EDMS 19:07 Report given to JULIEN Vaughan. tw2 20:25 No provider procedures requiring assistance completed. Patient admitted, IV remains in aa1 place. Administered Medications: 18:33 Drug: Lopressor 25 mg Route: PO; tw2 18:44 Follow up: Response: No adverse reaction tw2 18:33 Drug: Zofran 4 mg Route: IVP; Site: left forearm; tw2 18:43 Follow up: Response: No adverse reaction tw2 18:35 Drug: morphine 4 mg Route: IVP; Site: left forearm; tw2 18:43 Follow up: Response: No adverse reaction; Pain is decreased tw2 18:42 Drug: Magnesium Sulfate 1 grams Route: IVPB; Infused Over: 1 hrs; Site: left forearm; tw2 19:40 Follow up: IV Status: Completed infusion aa1 18:42 Drug: Lovenox 1 mg/kg Route: Sub-Q; Site: left lower abdomen; tw2 18:44 Follow up: Response: No adverse reaction tw2 Outcome: 18:29 Decision to Hospitalize by Provider. ernie 20:54 Admitted to Tele accompanied by tech, via wheelchair, room 211, with chart, Report aa1 called to JULIEN Faustin 20:54 Condition: stable 20:54 Discharge instructions given to patient, Instructed on the need for admit, Demonstrated understanding of instructions. 20:54 Patient left the ED. aa1 Signatures: Dispatcher [employer] EDAlexus Gonsalez, RN RN aa1 Wang Olivas MD MD cha Wise, Tara, RN RN tw2
--- NOTE | 2018-04-14 18:34 | RAD REPORT ---
EXAM DESCRIPTION: RAD - Chest Single View - 04/14/2018 6:28 pm CLINICAL HISTORY: CHEST PAIN Chest pain. COMPARISON: Chest Single View dated 01/29/2018; Chest Single View dated 12/12/2017; Chest Single View dated 11/04/2017; Chest Single View dated 08/21/2017 FINDINGS: Portable technique limits examination quality. The lungs are grossly clear. The heart is normal in size. No displaced fractures. IMPRESSION: No acute intrathoracic process suspected.
[2018-04-14] MEDS ORDERED: ONDANSETRON 4 MG/2 ML VIAL ONE (18:43)
[2018-04-14] MEDS ORDERED: ENOXAPARIN 100 MG/ML SYR SQ ONE (18:43)
[2018-04-14] MEDS ORDERED: METOPROLOL TAR 25 MG TAB ONE (18:43)
[2018-04-14] MEDS ORDERED: MORPHINE 4 MG/ML SYR ONE (18:43)
[2018-04-14] MEDS ORDERED: MAGNESIUM SULFATE 1 gm IVPB 1 GM/100 ML BAG IV ONE (18:43)
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
[2018-04-14] MEDS ORDERED: GLUCAGON 1 MG/VIAL IM PRN (20:53)
[2018-04-14] MEDS ORDERED: D50W 25 GM/50 ML SYRINGE IV PRN (20:53)
[2018-04-14] MEDS ORDERED: ATORVASTATIN 80 MG TAB PO SCH (21:00)
[2018-04-14] MEDS: INSULIN -REGULAR HUMAN 50 UNIT/0.5 ML ML SQ SCH (21:00)
[2018-04-14] MEDS: TRAMADOL HCL 50 MG TAB PO PRN (21:49)
[2018-04-14 22:00] VITALS: BMI 43.7
[2018-04-15 00:40] LABS: Urine Appearance CLEAR; Urine Bilirubin NEGATIVE (NEG); Urine Blood NEGATIVE (NEG); Urine Color YELLOW; Urine Glucose NEGATIVE (NEG); Urine Protein NEGATIVE (NEG); Urine Urobilinogen 0.2 mg/dL (0.2-1.0)
[2018-04-15 01:08] LABS: Urine Microscopic Reflex NO UMIC
[2018-04-15] MEDS: TRAMADOL HCL 50 MG TAB PO PRN (02:51)
[2018-04-15] MEDS ORDERED: KETOROLAC 30 MG/ML INJ IV ONE (04:15)
[2018-04-15] MEDS ORDERED: INFLUENZA VACCINE (for 3y+) 0.5 ML DOSE IMVAC ONE (06:00)
[2018-04-15 06:17] LABS: Absolute Lymphocytes (CBC) 2.9 K/uL (0.7-4.9); Absolute Monocytes 0.3 K/uL (0.1-1.3); Absolute Neutrophil 4.1 K/uL (1.8-8.0); Basophils % 0.4 % (0-1.3); Hematocrit 34.5 % (36.0-45.0); Lymphocytes % 38.6 % (15.3-44.8); Monocytes % 4.1 % (3.3-12.3); RBC Red Blood Cell Count 3.97 M/uL (3.86-4.86)
[2018-04-15 06:31] LABS: ALT/SGPT 16 U/L (12-78); AST/SGOT 13 U/L (15-37); Albumin 3.3 g/dL (3.4-5.0); Alkaline Phosphatase 91 U/L (45-117); BUN Blood Urea Nitrogen 15 mg/dL (7-18); Bicarbonate 27 mmol/L (21-32); Glucose Level 116 mg/dL (74-106); HDL Cholesterol 34 mg/dL (40-60); LDL Cholesterol, Calculated 114 (<130); Magnesium 2.2 mg/dL (1.8-2.4); Potassium 3.9 mmol/L (3.5-5.1); Protein, Total 6.8 g/dL (6.4-8.2); Sodium Level 144 mmol/L (136-145)
[2018-04-15 06:45] LABS: Bilirubin Total < 0.1 mg/dL (0.2-1.0)
[2018-04-15] MEDS: INSULIN -REGULAR HUMAN 50 UNIT/0.5 ML ML SQ SCH ×2 (07:30→11:30)
--- NOTE | 2018-04-15 08:46 | EKG ---
Test Date: 2018-04-15 Test Time: 03:25:01 Centrifugal Supervisor: GREGORIO MEASUREMENT RESULTS: Intervals: Rate: 66 CA: 190 QRSD: 110 QT: 454 QTc: 475 Huntley: P: 66 CA: 190 QRS: 20 T: 88 INTERPRETIVE STATEMENTS: Normal sinus rhythm Voltage criteria for left ventricular hypertrophy T wave abnormality, consider lateral ischemia Prolonged QT Abnormal ECG Compared to ECG 04/14/2018 17:21:17 Atrial premature complex(es) no longer present Ventricular premature complex(es) no longer present T-wave abnormality still present Possible ischemia still present Electronically Signed On 04-15-18 08:45:50 FIRESTOP/CONTAINMENT WORKER by Giovanni Brewster
--- NOTE | 2018-04-15 08:49 | EKG ---
Test Date: 2018-04-14 Test Time: 17:21:17 Carpenters Helper: RED MEASUREMENT RESULTS: Intervals: Rate: 71 OH: 176 QRSD: 96 QT: 448 QTc: 486 Doucette: P: 22 OH: 176 QRS: 1 T: 88 INTERPRETIVE STATEMENTS: Sinus rhythm with premature supraventricular complexes with occasional premature ventricular complexes Voltage criteria for left ventricular hypertrophy T wave abnormality, consider lateral ischemia Prolonged QT Abnormal ECG Compared to ECG 01/29/2018 13:47:33 Atrial premature complex(es) now present Ventricular premature complex(es) now present T-wave abnormality now present Possible ischemia now present Electronically Signed On 04-15-18 08:46:12 SENIOR SALES ASSOCIATE by Giovanni Brewster
[2018-04-15] MEDS ORDERED: ENOXAPARIN 40 MG/0.4 ML SQ SCH ×2 (09:00→17:00)
[2018-04-15] MEDS ORDERED: ASPIRIN 81 MG CHEWABLE TABLET PO SCH (09:00)
[2018-04-15] MEDS ORDERED: POTASSIUM CL SA 10 MEQ TAB PO ONE (09:00)
--- NOTE | 2018-04-15 10:36 | ECHO ---
HEIGHT: 5 ft 3 in WEIGHT: 246 lb 13 oz DATE OF STUDY: 04/15/[address]: Geetha Centeno MD 2-DIMENSIONAL: YES M.MODE: YES DOPPLER: YES COLOR FLOW: YES TDS: NO PORTABLE: NO DEFINITY: NO BUBBLE STUDY: NO DIAGNOSIS: CHEST PAIN CARDIAC HISTORY: CATHERIZATION: NO SURGERY: NO PROSTHETIC VALVE: NO PACEMAKER: NO MEASUREMENTS (cm) DIASTOLIC (NORMALS) SYSTOLIC (NORMALS) IVSd 1.4 (0.6-1.2) LA Diam 4.1 (1.9-4.0) LVEF 69% LVIDd 3.9 (3.5-5.7) LVIDs 2.5 (2.0-3.5) %FS 38% LVPWd 1.5 (0.6-1.2) Ao Diam 2.7 (2.0-3.7) 2 DIMENSIONAL ASSESSMENT: RIGHT ATRIUM: NORMAL LEFT ATRIUM: DILATED RIGHT VENTRICLE: NORMAL LEFT VENTRICLE: LEFT VENTRICULAR HYPERTROPHY TRICUSPID VALVE: NORMAL MITRAL VALVE: NORMAL PULMONIC VALVE: NORMAL AORTIC VALVE: NORMAL PERICARDIAL EFFUSION: NONE AORTIC ROOT: NORMAL LEFT VENTRICULAR WALL MOTION: DECREASED LEFT VENTRICULAR COMPLIANCE. DOPPLER/COLOR FLOW: MILD MITRAL REGURGITATION AND TRICUSPID REGURGITATION. COMMENTS: MILD MITRAL REGURGITATION AND TRICUSPID REGURGITATION. LEFT VENTRICULAR HYPERTROPHY. NORMAL EJECTION FRACTION. LEFT ATRIAL ENLARGEMENT. DECREASED LEFT VENTRICULAR COMPLIANCE. TECHNOLOGIST: DAVE MCNEILL RDCS
[2018-04-15] MEDS ORDERED: MORPHINE 2 MG/ML SYR IV ONE (10:37)
[2018-04-15] MEDS ORDERED: CLOPIDOGREL 75 MG TABLET PO SCH (11:00)
[2018-04-15 11:47] VITALS: O2SAT 93
[2018-04-15 12:31] VITALS: BP 104/61; TEMP 97.3
--- NOTE | 2018-04-15 22:43 | CON ---
Date of Consultation: 04/15/2018 Reason For Consultation: Shortness of breath and chest pain. History Of Present Illness: Ms. Helton is a 52-year-old woman. She has a history of myocardial infa rction, CVA, diabetes, hypertension, dyslipidemia, gastric sleeve, left toe amputation, ADD, anxiety, and depression. Had a normal cardiac workup in February of 2017 including an echocardiogram and a st ress test. Came in with chest pain over the left anterior chest and shoulder area with some shortnes s of breath but no nausea, vomiting, diaphoresis, PND, orthopnea, pedal edema, palpitations, or synco pe. She has already ruled out for CT. Allergies: INCLUDE SULFA. Past Medical History: As stated above. Review of Systems: Negative. Social History: Negative. Family History: Negative. Medications: Include Norvasc, Seroquel, aspirin, Cymbalta, metformin, and Plavix. Physical Examination: Vital Signs: Ms. Helton's vital signs were stable. She was afebrile. HEENT: Negative. Neck: Supple without bruit. Chest: Clear. Cardiac: Exam revealed a regular rhythm and rate with an S4 gallops. No murmurs or rubs. Abdomen: Benign. Extremities: Revealed no clubbing, cyanosis. She had trace edema. Diagnostic Data: As stated earlier. Impression And Plan: Congestive heart failure, possibly diastolic, acute on chronic. I think she ne eds to continue her Norvasc, but also think she needs to be on a daily Lasix. I do not see the need of repeating another Lexiscan based on her EKG and troponin and her symptoms. She had a negative one approximately 1 year ago. Echocardiogram is still pending. Her other issues include hypertension, which is well controlled; diabetes, well controlled; dyslipidemia, well controlled. I do not have an y details about her myocardial infarction or stroke, but I will investigate that further. I would li ke to see her and follow her in the office in the next 2 weeks if she goes home today. LISA/SELENA Voice ID: [id number] Report ID: [id number]
--- NOTE | 2018-04-16 00:28 | DS ---
Date of Discharge: 04/15/2018 Appellate Conferee: Dr. Brewster with Cardiology. Procedures: None. Discharge Diagnoses: 1.Chest pain. Acute coronary syndrome ruled out. 2.Dyslipidemia. 3.Morbid obesity, body mass index 43.7. 4.Shortness of breath. 5.Diabetes mellitus type 2, with long-term use of insulin, with hyperglycemia. 6.Essential hypertension, stable. 7.Nicotine dependence with cigarette smoking. Counseled. Hospital Course: The patient is a 52-year-old female with past medical history of diabetes, dyslipid emia, hypertension, tobacco use, comes in with chest pain. The patient was admitted to the hospital for further workup. Her cardiac enzymes were negative. Her cholesterol panel showed mildly elevated triglyceride levels. Told that she did not have any electrolyte abnormalities. Echocardiogram was done to rule out wall motion abnormalities and showed EF of 69%. She did have some mild mitral regur gitation and tricuspid regurgitation. She was found to have left ventricular hypertrophy, left atria l enlargement, and decreased left ventricular compliance. She had mild diastolic dysfunction. EKG d id not show any acute ST elevation. The patient was evaluated by Cardiology and was then cleared for discharge. The patient was counseled regarding her weight and need for changes in her diet and exer cise regimen. She may benefit from gastric bypass surgery as her BMI is over 43. Overall, the patie nt did well. Her symptoms resolved. She was feeling significantly better and did not have any furth er chest pain. The patient's medications were adjusted due to findings on the echocardiogram. She w as then cleared for discharge by Cardiology and was sent home in a stable condition. Activity: As tolerated. Medications: As per medication reconciliation list. Followup: Follow up with primary care physician in 2 to 3 days. Follow up with r d internship, Dr. Jah garner, in 2 weeks. Return to ER for worsening condition. Diet: Diabetic, 1500 mL fluid restriction. Activity: As tolerated. Physical Examination: General: Awake, alert, and oriented x3. No acute distress. CV: S1, S2. No murmurs. Respiratory: Moving air well bilaterally. No wheezing or stridor. Gastrointestinal: Abdomen is soft, nontender, and nondistended. Positive bowel sounds. Extremities: No clubbing, cyanosis, or edema. Neurologic: Nonfocal. SA/MODL Voice ID: [id number] Report ID: [id number]
[2018-04-16] MEDS ORDERED: QUETIAPINE 25 MG TAB PO SCH (09:00)
[2018-04-16] MEDS ORDERED: AMLODIPINE 10 MG TAB PO SCH (09:00)
[2018-04-16] MEDS ORDERED: DULOXETINE 30 MG CAP PO SCH (09:00)
== END 2018-04-15 12:40 | disposition home or self-care (01) ==
LOC: ER 17:14 → ERHOLD 18:56 → 2ND 20:41
PROVIDERS: ADMIT Family Medicine; ATTEND Internal Medicine
DX: R07.9 Chest pain, unspecified (principal); E78.5 Hyperlipidemia, unspecified; E66.01 Morbid (severe) obesity due to excess calories; Z68.41 Body mass index [BMI] 40.0-44.9, adult; R06.02 Shortness of breath; E11.65 Type 2 diabetes mellitus with hyperglycemia; I10 Essential (primary) hypertension; F17.210 Nicotine dependence, cigarettes, uncomplicated; Z88.2 Allergy status to sulfonamides; Z23 Encounter for immunization; Z98.84 Bariatric surgery status; Z86.73 Personal history of transient ischemic attack (TIA), and cerebral infarction without residual deficits
CPT/HCPCS: 36415; 71045; 80048; 80053; 80061; 80076; 81003; 82962; 83036; 83735; 83880; 84100; 84484; 85025; 85610; 93005; 93306; 94760; 96365; 96372; 96375; 99285; G0008; G0378; J1650; J2270; J2405; J3475; Q2035

== ENCOUNTER 2018-05-02 00:12 | Emergency (ER) | payer OTHER ==
--- OUTSIDE RECORDS SUMMARY | 2018-05-02 00:15 | XMS REPORT | Clinical Summary ---
:1965 Author Organization [facility] Address [address] [place] [address] Care Team Providers Name Role Phone Jael [...] History of gastric surgery 08/31/2015 History of IA (myocardial infarction) 08/31/2015 H/O section 08/31/2015 Smoking [...] Not on file Results Not on fileafter 05/01/2017 Insurance Payer Benefit Plan / Group Subscriber ID Type Phone Address [place] xxxxxxxxx Advance Directives For more information, please contact:[address] [phone] Code Status Date Activated Date Inactivated Comments Full Code 09/07/2015 9:59 PM 09/08/2015 3:23 PM This code status was determined by: Patient Full Code 08/30/2015 7:48 PM 09/01/2015 2:01 PM This code status was determined by: Patient
--- OUTSIDE RECORDS SUMMARY | 2018-05-02 00:15 | XMS REPORT ---
:1965 Author Organization [facility] Address [address] [place] [address] [address] [place] [address] Care Team Providers Name Role Phone Unavailable Unavailable Unavailable Problems This patient has no known problems. Allergies, Adverse Reactions, Alerts This patient has no known allergies or adverse reactions. Medications This patient has no known medications.
[2018-05-02] MEDS ORDERED: HYDROCODONE/APAP 7.5/325 MG TAB ONE (01:51)
--- NOTE | 2018-05-02 02:11 | ER ---
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 Pt states that she has dizzy spells for the last two months, was hospitalized here overnight on the 15 of April. Transition of care: patient was not received from another setting of care. Onset of symptoms was May 02, 2018 at 00:41. Risk Assessment: Do you want to hurt yourself or someone else? Patient reports no desire to harm self or others. Initial Sepsis Screen: Does the patient meet any 2 criteria? No. Patient's initial sepsis screen is negative. Does the patient have a suspected source of infection? No. Patient's initial sepsis screen is negative. Care prior to arrival: None. 00:39 Method Of Arrival: Wheelchair tl3 00:39 Acuity: NELY 3 tl3 Triage Assessment: 00:44 General: Appears uncomfortable, well groomed, well developed, Behavior is cooperative, tl3 appropriate for age, anxious. Pain: Complains of pain in left knee. PSYCHOLOGICAL STRESS EVALUATOR: 00:44 LMP N/A - Hysterectomy tl3 Historical: - Allergies: 00:44 Sulfa (Sulfonamide Antibiotics); tl3 - Home Meds: 00:44 amlodipine 25 mg tab 1 tab once daily [Active]; aspirin 81 mg Oral chew 1 tab once tl3 daily [Active]; Cymbalta 30mg in the morning, 60mg at night Oral [Active]; metformin 500 mg Oral tab 1 tab 2 times per day [Active]; multivitamin with minerals Oral daily [Active]; Plavix 75 mg Oral tab 1 tab once daily [Active]; Seroquel 25 mg Oral tab 1 tab nightly [Active]; metoprolol tartrate 25 mg Oral tab 1 tab once daily [Active]; - PMHx: 00:44 ADD/ADHD; Anxiety; Depression; Diabetes - NIDDM; Hyperlipidemia; Hypertension; tl3 Myocardial infarction; stroke; - PSHx: 00:44 amputation left great toe; gastric sleeve; ; tl3 - Immunization history:: Adult Immunizations up to date. - Social history:: Smoking status: Patient uses tobacco products, smokes one-half pack cigarettes per day. - Ebola Screening: : No symptoms or risks identified at this time. Screenin:53 Abuse screen: Denies threats or abuse. Denies injuries from another. Nutritional mg2 screening: No deficits noted. Tuberculosis screening: No symptoms or risk factors identified. Fall Risk Fall in past 12 months (25 points). Gait- Weak (10 pts.). Assessment: 01:49 General: Appears in no apparent distress. comfortable, Behavior is calm, cooperative. mg2 Pain: Complains of pain in left third toe and left knee Pain does not radiate. Pain currently is 5 out of 10 on a pain scale. Quality of pain is described as aching, Pain began gradually, Is intermittent, Alleviated by rest, cold application. Neuro: Level of Consciousness is awake, alert, obeys commands, Oriented to person, place, time, situation. Neuro: Reports dizziness. Cardiovascular: Capillary refill < 3 seconds Patient's skin is warm and dry. Respiratory: Airway is patent Respiratory effort is even, unlabored, Respiratory pattern is regular, symmetrical. GI: No signs and/or symptoms were reported involving the gastrointestinal system. : No signs and/or symptoms were reported regarding the genitourinary system. EENT: No signs and/or symptoms were reported regarding the EENT system. Derm: Skin is intact, is healthy with good turgor, Skin is pink, warm \T\ dry. normal. Musculoskeletal: Circulation, motion, and sensation intact. Capillary refill < 3 seconds, Swelling present in left knee. Injury Description: swelling. Vital Signs: 00:44 BP 120 / 79; Pulse 78; Resp 18; Temp 98.1(O); Pulse Ox 100% ; Weight 102.06 kg; Height tl3 5 ft. 3 in. (160.02 cm); 01:54 BP 119 / 80; Pulse 78; Resp 18; Pulse Ox 98% on R/A; Pain 5/10; mg2 02:39 BP 122 / 77; Pulse 78; Resp 18; Pulse Ox 100% on R/A; Pain 2/10; mg2 00:44 Body Mass Index 39.86 (102.06 kg, 160.02 cm) tl3 ED Course: 00:13 Patient arrived in ED. am2 00:13 Davis Cosme MD is Private Physician. am2 00:41 Triage completed. tl3 00:44 Arm band placed on left wrist. tl3 01:23 Ottoniel Ray, RN is Primary Nurse. mg2 01:25 [facility]orro [facility]C [facility] snw 01:25 True Gutierrez MD is Attending Physician. snw 01:46 Knee Left 3 View XRAY In Process Unspecified. EDMS 01:47 Foot Left 3 View XRAY In Process Unspecified. EDMS 01:54 Patient has correct armband on for positive identification. Door closed. Warm blanket mg2 given. Ice pack to injury. 01:54 No provider procedures requiring assistance completed. Patient did not have IV access mg2 during this emergency room visit. 02:09 Davis Cosme MD is Referral Physician. snw 02:39 Lico wrap to left knee. mg2 Administered Medications: 01:44 Drug: Evans (7.5 mg-325 mg) 1 tabs Route: PO; mg2 02:23 Follow up: Response: No adverse reaction; Marked relief of symptoms mg2 Outcome: 02:11 Discharge ordered by . snw 02:40 Discharged to home via wheelchair, with friend. mg2 02:40 Condition: stable 02:40 Discharge instructions given to patient, friend, Instructed on discharge instructions, follow up and referral plans. medication usage, Demonstrated understanding of instructions, follow-up care, medications, Prescriptions given X 1. 02:40 Patient left the ED. mg2 Signatures: Dispatcher [employer] EDMS Llay Chamorro FNP-C MARKING MACHINE TENDER-Csnw Katey Donis am2 Hannah Rosales RN RN tl3 Ottoniel Ray, JULIEN RN mg2
--- NOTE | 2018-05-02 02:12 | EDPHYS ---
Physician Documentation [facility] Name: Che Helton Age: 52 yrs Sex: Female : 1965 Arrival Date: 05/02/2018 Time: 00:13 Bed 27 Private MD: Davis Cosme E ED Physician True Gutierrez HPI: 05/02 02:12 This 52 yrs old Black Female presents to ER via Wheelchair with complaints of Knee Pain.snw 02:12 The patient presents with an injury, pain, tenderness. The complaints affect the left snw knee and dorsum of left foot. Context: The problem was sustained at home, resulted from the patient falling, while walking, the patient can partially bear weight, the patient is able to ambulate. Onset: The symptoms/episode began/occurred suddenly, just prior to arrival. Associated signs and symptoms: The patient has no apparent associated signs or symptoms. Severity of symptoms: At their worst the symptoms were moderate. It is unknown whether or not the patient has had similar symptoms in the past. The patient has been recently seen by a physician:. Pt alert and Ox3, GCS 15, no LOC. 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:44 LMP N/A - Hysterectomy tl3 Historical: - Allergies: 00:44 Sulfa (Sulfonamide Antibiotics); tl3 - Home Meds: 00:44 amlodipine 25 mg tab 1 tab once daily [Active]; aspirin 81 mg Oral chew 1 tab once tl3 daily [Active]; Cymbalta 30mg in the morning, 60mg at night Oral [Active]; metformin 500 mg Oral tab 1 tab 2 times per day [Active]; multivitamin with minerals Oral daily [Active]; Plavix 75 mg Oral tab 1 tab once daily [Active]; Seroquel 25 mg Oral tab 1 tab nightly [Active]; metoprolol tartrate 25 mg Oral tab 1 tab once daily [Active]; - PMHx: 00:44 ADD/ADHD; Anxiety; Depression; Diabetes - NIDDM; Hyperlipidemia; Hypertension; tl3 Myocardial infarction; stroke; - PSHx: 00:44 amputation left great toe; gastric sleeve; ; tl3 - Immunization history:: Adult Immunizations up to date. - Social history:: Smoking status: Patient uses tobacco products, smokes one-half pack cigarettes per day. - Ebola Screening: : No symptoms or risks identified at this time. ROS: 01:33 Constitutional: Negative for fever, chills, and weight loss, Eyes: Negative for injury, snw pain, redness, and discharge, ENT: Negative for injury, pain, and discharge, Neck: Negative for injury, pain, and swelling, Cardiovascular: Negative for chest pain, palpitations, and edema, Respiratory: Negative for shortness of breath, cough, wheezing, and pleuritic chest pain, Abdomen/GI: Negative for abdominal pain, nausea, vomiting, diarrhea, and constipation, Back: Negative for injury and pain, : Negative for injury, bleeding, discharge, and swelling, Skin: Negative for injury, rash, and discoloration, Neuro: Negative for headache, weakness, numbness, tingling, and seizure, Psych: Negative for depression, anxiety, suicide ideation, homicidal ideation, and hallucinations. 01:33 MS/extremity: Positive for injury or acute deformity, contusion, pain, of the left third toe and left knee. Exam: 01:32 Constitutional: This is a well developed, well nourished patient who is awake, alert, snw and in no acute distress. Head/Face: Normocephalic, atraumatic. Eyes: Pupils equal round and reactive to light, extra-ocular motions intact. Lids and lashes normal. Conjunctiva and sclera are non-icteric and not injected. Cornea within normal limits. Periorbital areas with no swelling, redness, or edema. ENT: Nares patent. No nasal discharge, no septal abnormalities noted. Tympanic membranes are normal and external auditory canals are clear. Oropharynx with no redness, swelling, or masses, exudates, or evidence of obstruction, uvula midline. Mucous membranes moist. Neck: Trachea midline, no thyromegaly or masses palpated, and no cervical lymphadenopathy. Supple, full range of motion without nuchal rigidity, or vertebral point tenderness. No Meningismus. Chest/axilla: Normal chest wall appearance and motion. Nontender with no deformity. No lesions are appreciated. Cardiovascular: Regular rate and rhythm with a normal S1 and S2. No gallops, murmurs, or rubs. Normal PMI, no JVD. No pulse deficits. Respiratory: Lungs have equal breath sounds bilaterally, clear to auscultation and percussion. No rales, rhonchi or wheezes noted. No increased work of breathing, no retractions or nasal flaring. Abdomen/GI: Soft, non-tender, with normal bowel sounds. No distension or tympany. No guarding or rebound. No evidence of tenderness throughout. Back: No spinal tenderness. No costovertebral tenderness. Full range of motion. Skin: Warm, dry with normal turgor. Normal color with no rashes, no lesions, and no evidence of cellulitis. Neuro: Awake and alert, GCS 15, oriented to person, place, time, and situation. Cranial nerves II-XII grossly intact. Motor strength 5/5 in all extremities. Sensory grossly intact. Cerebellar exam normal. Normal gait. Psych: Awake, alert, with orientation to person, place and time. Behavior, mood, and affect are within normal limits. 01:32 Musculoskeletal/extremity: Extremities: grossly normal except: noted in the left knee: contusion, ecchymosis, tenderness, noted in the left third toe: contusion, ecchymosis, swelling, tenderness, ROM: intact in all extremities, Circulation is intact in all extremities. Compartment Syndrome exam of affected extremity: is normal. Vital Signs: 00:44 BP 120 / 79; Pulse 78; Resp 18; Temp 98.1(O); Pulse Ox 100% ; Weight 102.06 kg; Height tl3 5 ft. 3 in. (160.02 cm); 01:54 BP 119 / 80; Pulse 78; Resp 18; Pulse Ox 98% on R/A; Pain 5/10; mg2 02:39 BP 122 / 77; Pulse 78; Resp 18; Pulse Ox 100% on R/A; Pain 2/10; mg2 00:44 Body Mass Index 39.86 (102.06 kg, 160.02 cm) tl3 MDM: 01:40 Patient medically screened. snw 02:12 Data reviewed: vital signs, nurses notes. Data interpreted: Pulse oximetry: on room air snw is 98 %. Interpretation: normal. Counseling: I had a detailed discussion with the patient and/or guardian regarding: the historical points, exam findings, and any diagnostic results supporting the discharge/admit diagnosis, the presence of at least one elevated blood pressure reading (>120/80) during this emergency department visit, radiology results, the need for outpatient follow up, to return to the emergency department if symptoms worsen or persist or if there are any questions or concerns that arise at home. Special discussion: I have referred the patient to see his PCP for further evaluation of high blood pressure. Based on the history and exam findings, there is no indication for further emergent testing or inpatient evaluation. I discussed with the patient/guardian the need to see the orthopedic surgeon for further evaluation of the symptoms. I discussed with the patient/guardian the need to see the primary care provider for further evaluation of the symptoms. 05/02 01:26 Order name: Knee Left 3 View XRAY snw 05/02 01:32 Order name: Foot Left 3 View XRAY snw 05/02 01:32 Order name: Ice pack; Complete Time: 01:38 snw 05/02 02:09 Order name: Lico wrap-joint; Complete Time: 02:39 snw Administered Medications: 01:44 Drug: [place] (7.5 mg-325 mg) 1 tabs Route: PO; mg2 02:23 Follow up: Response: No adverse reaction; Marked relief of symptoms mg2 Disposition: 05/02/18 02:11 Discharged to Home. Impression: Pain in left knee, Contusion of toe without damage to nail, Fall on same level from slipping, tripping and stumbling with subsequent striking against other object. - Condition is Stable. - Discharge Instructions: Elastic Bandage and RICE, Musculoskeletal Pain, Knee Pain, Cryotherapy, [id number], Heat Therapy. - Prescriptions for Tylenol- Codeine #3 300-30 mg Oral Tablet - take 2 tablets by ORAL route every 6 hours As needed; 14 tablet. - Work release form, Medication Reconciliation Form, Thank You Letter, Antibiotic Education, Prescription Opioid Use form. - Follow up: Davis Cosme MD; When: 1 - 2 days; Reason: Recheck today's complaints, Continuance of care, Re-evaluation by your physician. Follow up: Emergency Department; When: As needed; Reason: Worsening of condition. Addendum: 05/06/2018 20:38 Co-signature as Attending Physician, True Gutierrez MD. m a2 Signatures: Dispatcher [employer] EDMS Laly Chamorro, PCA ASSISTED LIVING-C PCA ASSISTED LIVING-Csnw True Gutierrez MD MD ma2 Hannah Rosales RN RN tl3 [place], Ottoniel, RN RN mg2 Corrections: (The following items were deleted from the chart) 05/02 02:40 02:11 05/02/2018 02:11 Discharged to Home. Impression: Pain in left knee; Contusion of mg2 toe without damage to nail; Fall on same level from slipping, tripping and stumbling with subsequent striking against other object. Condition is Stable. Forms are Medication Reconciliation Form, Thank You Letter, Antibiotic Education, Prescription Opioid Use. Follow up: Davis Cosme; When: 1 - 2 days; Reason: Recheck today's complaints, Continuance of care, Re-evaluation by your physician. Follow up: Emergency Department; When: As needed; Reason: Worsening of condition. snw
[2018-05-02 02:46] VITALS: TEMP 98.1
[2018-05-02 02:48] VITALS: BP 122/77; O2SAT 100
--- NOTE | 2018-05-02 08:18 | RAD REPORT ---
EXAM DESCRIPTION: RAD - Knee Left 3 View - 05/02/2018 1:49 am CLINICAL HISTORY: Pain;Smash injury COMPARISON: Knee Left 3 View dated 07/12/2016; Knee Left 3 View dated 06/25/2016 FINDINGS: Small suprapatellar joint effusion is noted. Medial joint compartment space arthritic denise ges are present. No acute fracture or dislocation evident.
--- NOTE | 2018-05-02 08:20 | RAD REPORT ---
EXAM DESCRIPTION: RAD - Foot Left 3 View - 05/02/2018 1:52 am CLINICAL HISTORY: SMASH INJURY Pain and swelling COMPARISON: Foot Left 3 View dated 12/20/2015; Foot Left 3 View dated 09/27/2013 FINDINGS: Prior partial amputation of the first and second toes noted. Old healed traumatic findings involving the second and third metatarsal seen with extensive radiopaque foreign bodies present, unc hanged. Prominent posterior and plantar calcaneal spurs. No acute fracture seen.
== END 2018-05-02 02:40 | disposition home or self-care (01) ==
LOC: ER 00:12
DX: S90.122A Contusion of left lesser toe(s) without damage to nail, initial encounter (principal); W01.10XA Fall on same level from slipping, tripping and stumbling with subsequent striking against unspecified object, initial encounter; Y93.9 Activity, unspecified; Y92.9 Unspecified place or not applicable; E11.9 Type 2 diabetes mellitus without complications; F41.8 Other specified anxiety disorders; I10 Essential (primary) hypertension; E78.5 Hyperlipidemia, unspecified; F17.210 Nicotine dependence, cigarettes, uncomplicated
CPT/HCPCS: 99284

== ENCOUNTER 2018-05-13 20:22 | Emergency (ER) | payer OTHER ==
--- OUTSIDE RECORDS SUMMARY | 2018-05-13 20:24 | XMS REPORT | Clinical Summary ---
:1965 Author Organization [facility] Address [address] [place] [address] Care Team Providers Name Role Phone Jael [...] Not on file Results Not on fileafter 05/12/2017 Insurance Payer Benefit Plan / Group Subscriber ID Type Phone Address [place] MED[place]ID [place] xxxxxxxxx Advance Directives For more information, please contact:[address] [phone] Code Status Date Activated Date Inactivated Comments Full Code 09/07/2015 9:59 PM 09/08/2015 3:23 PM This code status was determined by: Patient Full Code 08/30/2015 7:48 PM 09/01/2015 2:01 PM This code status was determined by: Patient
--- OUTSIDE RECORDS SUMMARY | 2018-05-13 20:25 | XMS REPORT ---
:1965 Author Organization [facility] Address [address] [place] [address] [address] [place] [address] Care Team Providers Name Role Phone Unavailable Unavailable Unavailable Problems This patient has no known problems. Allergies, Adverse Reactions, Alerts This patient has no known allergies or adverse reactions. Medications This patient has no known medications.
[2018-05-13 21:40] LABS: Absolute Lymphocytes (CBC) 2.2 K/uL (0.7-4.9); Absolute Monocytes 0.3 K/uL (0.1-1.3); Absolute Neutrophil 4.9 K/uL (1.8-8.0); Basophils % 0.9 % (0-1.3); Eosinophils % 1.4 % (0-4.4); Hematocrit 38.6 % (36.0-45.0); Lymphocytes % 28.8 % (15.3-44.8); MPV 8.9 fL (7.6-11.3); Monocytes % 3.9 % (3.3-12.3); RBC Red Blood Cell Count 4.44 M/uL (3.86-4.86)
[2018-05-13 21:41] LABS: Protime INR 0.98
--- NOTE | 2018-05-13 21:41 | RAD REPORT ---
EXAM DESCRIPTION: Justin Single View05/13/2018 9:14 pm CLINICAL HISTORY: Chest pain COMPARISON: March 2018 FINDINGS: The lungs appear clear of acute infiltrate. The heart is mildly enlarged IMPRESSION: No acute abnormalities displayed
[2018-05-13 21:50] LABS: ALT/SGPT 18 U/L (12-78); AST/SGOT 14 U/L (15-37); Albumin 3.7 g/dL (3.4-5.0); Alkaline Phosphatase 112 U/L (45-117); BUN Blood Urea Nitrogen 8 mg/dL (7-18); Bicarbonate 26 mmol/L (21-32); Bilirubin Direct < 0.1 mg/dL (0-0.2); Bilirubin Total 0.2 mg/dL (0.2-1.0); Glucose Level 112 mg/dL (74-106); Magnesium 1.9 mg/dL (1.8-2.4); NT PRO-BNP 33 pg/mL (<125); Potassium 4.2 mmol/L (3.5-5.1); Protein, Total 7.7 g/dL (6.4-8.2); Sodium Level 143 mmol/L (136-145); Troponin (Emerg Dept Use Only) < 0.02 ng/mL (0.0-0.045)
[2018-05-13] MEDS ORDERED: NITROGLYCERIN 1 GM PKT TD ONE (22:02)
[2018-05-13] MEDS ORDERED: MORPHINE 4 MG/ML SYR ONE (22:35)
[2018-05-13] MEDS ORDERED: ONDANSETRON 4 MG/2 ML VIAL ONE (22:35)
--- NOTE | 2018-05-13 23:58 | EDPHYS ---
Physician Documentation [facility] Name: Che Helton Age: 52 yrs Sex: Female : 1965 Arrival Date: 05/13/2018 Time: 20:40 Bed 26 Private MD: Davis oCsme E ED Physician Rene Blank HPI: 05/14 06:15 This 52 yrs old Black Female presents to ER via Wheelchair with complaints of Chest tw4 Pain. 06:15 The patient or guardian reports chest pain that is located primarily in the anterior tw4 chest wall, left. Onset: today. The pain does not radiate. Associated signs and symptoms: The patient has no apparent associated signs or symptoms. The chest pain is described as dull, a heaviness. Duration: The patient or guardian reports a single episode. Modifying factors: The symptoms are alleviated by nothing. the symptoms are aggravated by nothing. Severity of pain: At its worst the pain was moderate in the emergency department the pain is unchanged. The patient has experienced similar episodes in the past, chronically. 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: 05/13 21:12 LMP N/A - Hysterectomy mg2 Historical: - Allergies: 21:29 Sulfa (Sulfonamide Antibiotics); mg2 - Home Meds: 21:29 amlodipine 25 mg tab 1 tab once daily [Active]; aspirin 81 mg Oral chew 1 tab once mg2 daily [Active]; Cymbalta 30mg in the morning, 60mg at night Oral [Active]; metformin 500 mg Oral tab 1 tab 2 times per day [Active]; metoprolol tartrate 25 mg Oral tab 1 tab once daily [Active]; multivitamin with minerals Oral daily [Active]; Plavix 75 mg Oral tab 1 tab once daily [Active]; Seroquel 25 mg Oral tab 1 tab nightly [Active]; - PMHx: 21:29 ADD/ADHD; Anxiety; Depression; Diabetes - NIDDM; Hyperlipidemia; Hypertension; mg2 Myocardial infarction; stroke; - PSHx: 21:29 Hysterectomy; gastric sleeve; left big toe amputation; mg2 - Immunization history:: Flu vaccine is up to date. - Social history:: Smoking status: Patient uses tobacco products, 5 sticks a day, Patient/guardian denies using alcohol, street drugs, IV drugs. - Ebola Screening: : No symptoms or risks identified at this time. ROS: 05/14 06:15 Constitutional: Negative for fever, chills, and weight loss, ENT: Negative for injury, tw4 pain, and discharge, Respiratory: Negative for shortness of breath, cough, wheezing, and pleuritic chest pain, Abdomen/GI: Negative for abdominal pain, nausea, vomiting, diarrhea, and constipation. Back: Negative for injury and pain, MS/Extremity: Negative for injury and deformity, Skin: Negative for injury, rash, and discoloration, Neuro: Negative for headache, weakness, numbness, tingling, and seizure. Cardiovascular: Positive for chest pain, Negative for edema. Exam: 06:15 Constitutional: This is a well developed, well nourished patient who is awake, alert, tw4 and in no acute distress. Head/Face: Normocephalic, atraumatic. Chest/axilla: Normal chest wall appearance and motion. Nontender with no deformity. No lesions are appreciated. Cardiovascular: Regular rate and rhythm with a normal S1 and S2. No gallops, murmurs, or rubs. Normal PMI, no JVD. No pulse deficits. Respiratory: Lungs have equal breath sounds bilaterally, clear to auscultation and percussion. No rales, rhonchi or wheezes noted. No increased work of breathing, no retractions or nasal flaring. Abdomen/GI: Soft, non-tender, with normal bowel sounds. No distension or tympany. No guarding or rebound. No evidence of tenderness throughout. Back: No spinal tenderness. No costovertebral tenderness. Full range of motion. MS/ Extremity: Pulses equal, no cyanosis. Neurovascular intact. Full, normal range of motion. Neuro: Awake and alert, GCS 15, oriented to person, place, time, and situation. Cranial nerves II-XII grossly intact. Motor strength 5/5 in all extremities. Sensory grossly intact. Cerebellar exam normal. Normal gait. Vital Signs: 05/13 21:12 BP 128 / 75; Pulse 88; Resp 18; Pulse Ox 94% ; Weight 102.06 kg; Height 5 ft. 3 in. mg2 (160.02 cm); Pain 10/10; 22:36 BP 103 / 62; Pulse 88; Resp 18; Temp 98.7; Pulse Ox 98% ; lt1 23:02 BP 99 / 67; Pulse 77; Resp 20; Pulse Ox 95% on R/A; ca1 23:21 BP 107 / 69; Pulse 70; Resp 18; Pulse Ox 95% on R/A; Pain 2/10; mg2 21:12 Body Mass Index 39.86 (102.06 kg, 160.02 cm) mg2 MDM: 20:57 Patient medically screened. 05/14 06:15 Differential diagnosis: acute myocardial infarction, pulmonary embolus, stable angina. Data reviewed: vital signs, nurses notes. Data interpreted: cardiac monitor technician: rhythm is normal sinus rhythm, Pulse oximetry:. Counseling: I had a detailed discussion with the patient and/or guardian regarding: the historical points, exam findings, and any diagnostic results supporting the discharge/admit diagnosis, lab results, radiology results. Refusal of service: The patient/guardian displays adequate decision making capability and despite a detailed discussion of alternatives, benefits, risks, and consequences refuses: Admission to the hospital for further work-up and treatment. 05/13 20:49 Order name: Basic Metabolic Panel; Complete Time: 23:18 [facility] 05/13 23:18 Interpretation: GLUC 112. tw4 05/13 20:49 Order name: CBC with Diff; Complete Time: 21:58 mg2 05/13 20:49 Order name: LFT's; Complete Time: 21:58 [facility] 05/13 21:58 Interpretation: Normal except: AST 14; GLOB 4.0; A/G 0.9. tw4 05/13 20:49 Order name: Magnesium [facility] 05/13 20:49 Order name: NT PRO-BNP [facility] 05/13 20:49 Order name: PT-INR [facility] 05/13 20:49 Order name: Troponin (emerg Dept Use Only) [facility] 05/13 20:49 Order name: XRAY Chest (1 view) [facility] 05/13 20:49 Order name: EKG; Complete Time: 20:50 mg2 05/13 21:58 Order name: Extremity Venous Uni Ltd US tw4 05/13 20:49 Order name: Cardiac monitoring; Complete Time: 21:23 mg2 05/13 20:49 Order name: EKG - Nurse/Tech; Complete Time: 21:23 mg2 05/13 20:49 Order name: IV Saline Lock; Complete Time: 21:23 mg2 05/13 20:49 Order name: Labs collected and sent; Complete Time: 21:23 mg2 05/13 20:49 Order name: O2 Per Protocol; Complete Time: 21:23 mg2 05/13 20:49 Order name: O2 Sat Monitoring; Complete Time: :23 mg2 EC:18 Rate is 94 beats/min. Rhythm is regular with Unifocal PVCs. QRS [place] is Normal. AR tw4 interval is normal. QRS interval is normal. QT interval is normal. No Q waves. T waves are Normal. No ST changes noted. Clinical impression: Normal ECG. Interpreted by me. Reviewed by me. Administered Medications: 05/13 21:54 Drug: Nitro-Bid Ointment 2 % 0.5 inches Route: Transdermal; Site: anterior chest wall; mg2 23:40 Follow up: Response: No adverse reaction; Marked relief of symptoms mg2 21:58 Not Given (Duplicate Order): Nitro-Bid Ointment 2 % 0.5 inches Transdermal once mg2 22:33 Drug: Zofran 4 mg Route: IVP; Site: left antecubital; mg2 23:39 Follow up: Response: No adverse reaction; Marked relief of symptoms mg2 22:34 Drug: morphine 4 mg Route: IVP; Site: left antecubital; mg2 23:39 Follow up: Response: No adverse reaction; Marked relief of symptoms mg2 Disposition: 05/13/18 23:57 Patient has left against medical advice. Impression: Other chest pain. - Patients states they are going to Home. - Condition is Stable. - Discharge Instructions: Nonspecific Chest Pain. Follow up: Davis Cosme MD; When: Upon discharge from the Emergency Department; Reason: If symptoms return, Recheck today's complaints, Continuance of care. - Problem is new. - Symptoms have improved. Signatures: Dispatcher [employer] Rene Lynch MD MD tw4 Ottoniel Ray RN RN mg2 Corrections: (The following items were deleted from the chart) 05/14 00:03 05/13 23:57 05/13/2018 23:57 Patients has left against medical advice. Impression: mg2 Other chest pain. Patient states they are going to Home. Condition is Stable. Follow up: Davis Cosme; When: Upon discharge from the Emergency Department; Reason: If symptoms return, Recheck today's complaints, Continuance of care. Problem is new. Symptoms have improved. tw4
--- NOTE | 2018-05-13 23:58 | ER ---
Nurse's Notes [facility] Name: Che Helton Age: 52 yrs Sex: Female : 1965 Arrival Date: 05/13/2018 Time: 20:40 Bed 26 Private MD: Davis Cosme E Diagnosis: Other chest pain Presentation: 05/13 21:10 Presenting complaint: Patient states: i have chest pain since 6 pm radiating to my left mg2 arm. i was here last week for fall and today i noticed swelling at the back of my left knee. Transition of care: patient was not received from another setting of care. Onset of symptoms was May 13, 2018 at 18:00. Risk Assessment: Do you want to hurt yourself or someone else? Patient reports no desire to harm self or others. Initial Sepsis Screen: Does the patient meet any 2 criteria? No. Patient's initial sepsis screen is negative. Does the patient have a suspected source of infection? No. Patient's initial sepsis screen is negative. Care prior to arrival: None. 21:10 Method Of Arrival: Wheelchair mg2 21:10 Acuity: NELY 2 mg2 Triage Assessment: 21:30 General: Appears in no apparent distress. comfortable, Behavior is calm, cooperative. mg2 Pain: Complains of pain in chest and left knee Pain radiates to left arm Pain currently is 10 out of 10 on a pain scale. Quality of pain is described as aching, Pain began gradually, 3 hours ago. Is intermittent. EENT: No signs and/or symptoms were reported regarding the EENT system. Neuro: Level of Consciousness is awake, alert, obeys commands, Oriented to person, place, time, situation. Cardiovascular: Capillary refill < 3 seconds Patient's skin is warm and dry. Cardiovascular: Chest pain is described as severe. Respiratory: Airway is patent Respiratory effort is even, unlabored, Respiratory pattern is regular, symmetrical. GI: No signs and/or symptoms were reported involving the gastrointestinal system. : No signs and/or symptoms were reported regarding the genitourinary system. Derm: Skin is intact, is healthy with good turgor, Skin is pink, warm \T\ dry. normal. Musculoskeletal: Circulation, motion, and sensation intact. Capillary refill < 3 seconds. 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 LMP N/A - Hysterectomy mg2 Historical: - Allergies: 21:29 Sulfa (Sulfonamide Antibiotics); mg2 - Home Meds: 21:29 amlodipine 25 mg tab 1 tab once daily [Active]; aspirin 81 mg Oral chew 1 tab once mg2 daily [Active]; Cymbalta 30mg in the morning, 60mg at night Oral [Active]; metformin 500 mg Oral tab 1 tab 2 times per day [Active]; metoprolol tartrate 25 mg Oral tab 1 tab once daily [Active]; multivitamin with minerals Oral daily [Active]; Plavix 75 mg Oral tab 1 tab once daily [Active]; Seroquel 25 mg Oral tab 1 tab nightly [Active]; - PMHx: 21:29 ADD/ADHD; Anxiety; Depression; Diabetes - NIDDM; Hyperlipidemia; Hypertension; mg2 Myocardial infarction; stroke; - PSHx: 21:29 Hysterectomy; gastric sleeve; left big toe amputation; mg2 - Immunization history:: Flu vaccine is up to date. - Social history:: Smoking status: Patient uses tobacco products, 5 sticks a day, Patient/guardian denies using alcohol, street drugs, IV drugs. - Ebola Screening: : No symptoms or risks identified at this time. Screenin:13 Abuse screen: Denies threats or abuse. Denies injuries from another. Nutritional mg2 screening: No deficits noted. Tuberculosis screening: No symptoms or risk factors identified. Fall Risk IV access (20 points). Assessment: 21:31 Reassessment: pls see triage assessment. mg2 23:59 Reassessment: patient is for admission but she refused because she has a cardiology mg2 appointment on May 16, 2018. . AMA form signed by the patient. risk explained. discharged in stable condition. Patient denies pain at this time. Patient states feeling better. Vital Signs: 21:12 BP 128 / 75; Pulse 88; Resp 18; Pulse Ox 94% ; Weight 102.06 kg; Height 5 ft. 3 in. mg2 (160.02 cm); Pain 10/10; 22:36 BP 103 / 62; Pulse 88; Resp 18; Temp 98.7; Pulse Ox 98% ; lt1 23:02 BP 99 / 67; Pulse 77; Resp 20; Pulse Ox 95% on R/A; ca1 23:21 BP 107 / 69; Pulse 70; Resp 18; Pulse Ox 95% on R/A; Pain 2/10; mg2 21:12 Body Mass Index 39.86 (102.06 kg, 160.02 cm) mg2 ED Course: 20:40 Patient arrived in ED. es 20:41 Davis Cosme MD is Private Physician. es 20:48 Ottoniel Ray RN is Primary Nurse. mg2 20:57 Rene Blank MD is Attending Physician. tw4 21:12 Triage completed. mg2 21:12 X-ray completed. Portable x-ray completed in exam room. Patient tolerated procedure ml well. 21:13 Arm band placed on. mg2 21:14 XRAY Chest (1 view) In Process Unspecified. EDMS 21:29 No provider procedures requiring assistance completed. Inserted saline lock: 22 gauge mg2 in left forearm, using aseptic technique. Blood collected. 21:32 Patient has correct armband on for positive identification. nuclear monitoring technician on. Pulse mg2 ox on. NIBP on. 22:14 Extremity Venous Uni Ltd US In Process Unspecified. EDMS 23:56 Davis Cosme MD is Referral Physician. tw4 05/14 00:02 IV discontinued, intact, bleeding controlled, No redness/swelling at site. Pressure mg2 dressing applied. Patient maintains SpO2 saturation greater than 95% on room air. Administered Medications: 05/13 21:54 Drug: Nitro-Bid Ointment 2 % 0.5 inches Route: Transdermal; Site: anterior chest wall; mg2 23:40 Follow up: Response: No adverse reaction; Marked relief of symptoms mg2 21:58 Not Given (Duplicate Order): Nitro-Bid Ointment 2 % 0.5 inches Transdermal once mg2 22:33 Drug: Zofran 4 mg Route: IVP; Site: left antecubital; mg2 23:39 Follow up: Response: No adverse reaction; Marked relief of symptoms mg2 22:34 Drug: morphine 4 mg Route: IVP; Site: left antecubital; mg2 23:39 Follow up: Response: No adverse reaction; Marked relief of symptoms mg2 Outcome: 05/14 00:02 AMA AMA form signed mg2 Condition: stable Discharge instructions given to patient, Instructed on discharge instructions, follow up and referral plans. Demonstrated understanding of instructions, follow-up care. 00:03 Patient left the ED. mg2 Signatures: Dispatcher [employer] EDMS Letitia Skinner Melissa Rene Blank MD MD tw4 Ottoniel Ray RN RN mg2 Acob, Ethel, RN RN ca1 Ward, Dalia lt1
[2018-05-14 00:37] VITALS: TEMP 98.7
[2018-05-14 00:38] VITALS: O2SAT 95
[2018-05-14 00:39] VITALS: BP 107/69
--- NOTE | 2018-05-14 07:42 | EKG ---
Test Date: 2018-05-13 Test Time: 20:48:31 Embossograph Operator: BRADEN MEASUREMENT RESULTS: Intervals: Rate: 94 NJ: 176 QRSD: 100 QT: 386 QTc: 482 [place]: P: 71 NJ: 176 QRS: -16 T: 82 INTERPRETIVE STATEMENTS: Sinus rhythm with occasional premature supraventricular complexes Voltage criteria for left ventricular hypertrophy Prolonged QT Abnormal ECG Compared to ECG 04/15/2018 03:25:01 Supreventricular premature complex(es) now present T-wave abnormality no longer present Possible ischemia no longer present Electronically Signed On 05-14-18 07:42:11 CDT by Jamal Alvarado
--- NOTE | 2018-05-14 08:17 | RAD REPORT ---
EXAM DESCRIPTION: USExtremvic Venous Uni Ltd3 10:14 pm CLINICAL HISTORY: left leg pain COMPARISON: 2014 FINDINGS: Left common femoral, superficial femoral, popliteal and posterior tibial veins are compre ssible and demonstrate augmentation. Doppler demonstrates good flow. IMPRESSION: No evidence of deep venous thrombosis involving the left lower extremity.
== END 2018-05-14 00:03 | disposition left against medical advice (07) ==
LOC: ER 20:22
DX: R07.89 Other chest pain (principal); I10 Essential (primary) hypertension; E11.9 Type 2 diabetes mellitus without complications; E78.5 Hyperlipidemia, unspecified; F41.9 Anxiety disorder, unspecified; F32.9 Major depressive disorder, single episode, unspecified; F90.9 Attention-deficit hyperactivity disorder, unspecified type; I25.2 Old myocardial infarction; Z72.0 Tobacco use; Z79.01 Long term (current) use of anticoagulants; Z79.82 Long term (current) use of aspirin
CPT/HCPCS: 36415; 71045; 80048; 80076; 83735; 83880; 84484; 85025; 85610; 93005; 93971; 96374; 96375; 99285; J2405

== ENCOUNTER 2018-06-01 10:26 | Emergency (ER) | payer OTHER ==
[2018-06-01] MEDS ORDERED: HYDROCODONE/APAP 10/325 TAB ONE (11:23)
[2018-06-01] MEDS ORDERED: ONDANSETRON 4 MG (ODT) TAB ONE (11:24)
--- NOTE | 2018-06-01 12:27 | EDPHYS ---
Physician Documentation [facility] Name: Che Helton Age: 52 yrs Sex: Female : 1965 Arrival Date: 06/01/2018 Time: 10:29 Bed 19 Private MD: Unknown, Unknown ED Physician Wang Olivas HPI: 06/01 11:00 This 52 yrs old Black Female presents to ER via Ambulatory with complaints of Knee ernie Pain, Toe Injury. 11:00 The patient presents with pain, that is acute. The complaints affect the left foot, ernie plantar aspect of left second toe. Context: The problem was sustained at an unknown location, resulted from a chronic condition, secondary to an old injury. Onset: The symptoms/episode began/occurred 3 week(s) ago. Modifying factors: The symptoms are alleviated by elevation of extremity, the symptoms are aggravated by movement, wearing shoes, walking. Associated signs and symptoms: The patient has no apparent associated signs or symptoms. Severity of symptoms: At their worst the symptoms were mild, moderate, in the emergency department the symptoms are unchanged. Historical: - Allergies: 10:34 Sulfa (Sulfonamide Antibiotics); la1 - PMHx: 10:34 ADD/ADHD; Anxiety; Depression; Diabetes - NIDDM; Hyperlipidemia; Hypertension; la1 Myocardial infarction; stroke; - Immunization history:: Adult Immunizations up to date. - Social history:: Smoking status: Patient uses tobacco products, smokes one-half pack cigarettes per day. - Ebola Screening: : No symptoms or risks identified at this time. ROS: 11:02 Constitutional: Negative for fever, chills, and weight loss, Eyes: Negative for injury, ernie pain, redness, and discharge, ENT: Negative for injury, pain, and discharge, Neck: Negative for injury, pain, and swelling, Cardiovascular: Negative for chest pain, palpitations, and edema, Respiratory: Negative for shortness of breath, cough, wheezing, and pleuritic chest pain, Abdomen/GI: Negative for abdominal pain, nausea, vomiting, diarrhea, and constipation, Back: Negative for injury and pain, : Negative for injury, bleeding, discharge, and swelling, Skin: Negative for injury, rash, and discoloration, Neuro: Negative for headache, weakness, numbness, tingling, and seizure, Psych: Negative for depression, anxiety, suicide ideation, homicidal ideation, and hallucinations, Allergy/Immunology: Negative for hives, rash, and allergies, Endocrine: Negative for neck swelling, polydipsia, polyuria, polyphagia, and marked weight changes, Hematologic/Lymphatic: Negative for swollen nodes, abnormal bleeding, and unusual bruising. 11:02 MS/extremity: Positive for laceration, tenderness, of the posterior aspect of left knee and dorsum of left foot. Exam: 11:02 Constitutional: This is a well developed, well nourished patient who is awake, alert, ernie and in no acute distress. Head/Face: Normocephalic, atraumatic. Eyes: Pupils equal round and reactive to light, extra-ocular motions intact. Lids and lashes normal. Conjunctiva and sclera are non-icteric and not injected. Cornea within normal limits. Periorbital areas with no swelling, redness, or edema. ENT: Nares patent. No nasal discharge, no septal abnormalities noted. Tympanic membranes are normal and external auditory canals are clear. Oropharynx with no redness, swelling, or masses, exudates, or evidence of obstruction, uvula midline. Mucous membranes moist. Neck: Trachea midline, no thyromegaly or masses palpated, and no cervical lymphadenopathy. Supple, full range of motion without nuchal rigidity, or vertebral point tenderness. No Meningismus. Chest/axilla: Normal chest wall appearance and motion. Nontender with no deformity. No lesions are appreciated. Cardiovascular: Regular rate and rhythm with a normal S1 and S2. No gallops, murmurs, or rubs. Normal PMI, no JVD. No pulse deficits. Respiratory: Lungs have equal breath sounds bilaterally, clear to auscultation and percussion. No rales, rhonchi or wheezes noted. No increased work of breathing, no retractions or nasal flaring. Abdomen/GI: Soft, non-tender, with normal bowel sounds. No distension or tympany. No guarding or rebound. No evidence of tenderness throughout. Back: No spinal tenderness. No costovertebral tenderness. Full range of motion. Skin: Warm, dry with normal turgor. Normal color with no rashes, no lesions, and no evidence of cellulitis. Neuro: Awake and alert, GCS 15, oriented to person, place, time, and situation. Cranial nerves II-XII grossly intact. Motor strength 5/5 in all extremities. Sensory grossly intact. Cerebellar exam normal. Normal gait. Psych: Awake, alert, with orientation to person, place and time. Behavior, mood, and affect are within normal limits. 11:02 Musculoskeletal/extremity: ROM: intact in all extremities, full active range of motion, full passive range of motion, Circulation is intact in all extremities. Sensation intact. Compartment Syndrome exam of affected extremity: is normal. DVT Exam: negative Homans' sign noted on exam, no appreciated bluish discoloration, no erythema, no increased warmth, pain, swelling, tenderness. Vital Signs: 10:34 BP 121 / 79; Pulse 95; Resp 18; Temp 97.6; Pulse Ox 98% on R/A; Weight 102.97 kg; la1 Height 5 ft. 3 in. (160.02 cm); Pain 10/10; 12:00 BP 116 / 68; Pulse 80; Resp 18; Pulse Ox 99% on R/A; em 10:34 Body Mass Index 40.21 (102.97 kg, 160.02 cm) la1 MDM: 10:37 Patient medically screened. [facility] 11:50 Data reviewed: vital signs, nurses notes, lab test result(s), radiologic studies, plain [facility] films, ultrasound. 06/01 11:44 Order name: Glucose, Ancillary Testing; Complete Time: 11:50 EDCO 06/01 11:06 Order name: US Extremity Venous Unilateral Ltd [facility] 06/01 11:09 Order name: Blood Glucose Level; Complete Time: 11:42 [facility] Administered Medications: 11:14 Drug: [place] 10 mg-325 mg 1 tabs Route: PO; em 12:00 Follow up: Response: No adverse reaction; Pain is decreased em 11:14 Drug: Zofran 4 mg Route: PO; em 12:56 Follow up: Response: No adverse reaction; Nausea is decreased em Point of Care Testing: Blood Glucose: 11:41 Blood Glucose: 108 mg/dL; em Ranges: Critical Glucose Levels:Adult <50 mg/dl or >400 mg/dl <40 mg/dl or >180 mg/dl Disposition: 06/01/18 12:26 Discharged to Home. Impression: Pain in left toe(s) - 2nd, callus formation, Type 2 diabetes mellitus, Lipomatosis, not elsewhere classified. - Condition is Stable. - Discharge Instructions: Corns and Calluses, Type 2 Diabetes Mellitus, Diagnosis, Adult, Musculoskeletal Pain, Type 2 Diabetes Mellitus, Diagnosis, Adult, [id number], Foot Pain. - Prescriptions for Tylenol- Codeine #3 300-30 mg Oral Tablet - take 2 tablets by ORAL route every 6 hours As needed; 26 tablet. - Medication Reconciliation Form, Thank You Letter, Antibiotic Education, Prescription Opioid Use form. - Follow up: Private Physician; When: 2 - 3 days; Reason: Recheck today's complaints, Continuance of care, Re-evaluation by your physician. Follow up: Dr. Trip Carson; When: 2 - 3 days; Reason: Recheck today's complaints, Continuance of care, Re-evaluation by your physician. - Problem is new. - Symptoms have improved. Signatures: Dispatcher [employer] Wang Woo MD MD cha Munoz, Edgar, SUPERVISOR TILE AND MOTTLE SUPERVISOR TILE AND MOTTLE Cristian Grace RN RN la1 Corrections: (The following items were deleted from the chart) 12:57 12:26 06/01/2018 12:26 Discharged to Home. Impression: Pain in left toe(s) - 2nd, em callus formation; Type 2 diabetes mellitus; Lipomatosis, not elsewhere classified. Condition is Stable. Discharge Instructions: Corns and Calluses, Type 2 Diabetes Mellitus, Diagnosis, Adult, Musculoskeletal Pain, Type 2 Diabetes Mellitus, Diagnosis, Adult, [id number], Foot Pain. Prescriptions for Tylenol-Codeine #3 300-30 mg Oral Tablet - take 2 tablets by ORAL route every 6 hours As needed; 26 tablet. and Forms are Medication Reconciliation Form, Thank You Letter, Antibiotic Education, Prescription Opioid Use. Follow up: Private Physician; When: 2 - 3 days; Reason: Recheck today's complaints, Continuance of care, Re-evaluation by your physician. Follow up: Dr. Trip Carson; When: 2 - 3 days; Reason: Recheck today's complaints, Continuance of care, Re-evaluation by your physician. Problem is new. Symptoms have improved. ernie
--- NOTE | 2018-06-01 12:27 | ER ---
Nurse's Notes [facility] Name: Che Helton Age: 52 yrs Sex: Female : 1965 Arrival Date: 06/01/2018 Time: 10:29 Bed 19 Private MD: Unknown, Unknown Diagnosis: Pain in left toe(s)-2nd, callus formation;Type 2 diabetes mellitus;Lipomatosis, not elsewhere classified Presentation: 06/01 10:33 Presenting complaint: Patient states: I have had my left great toe amputated in 2004 la1 and now my second toe is turning black, also, I was here a few weeks ago after a fall and had a hematoma to my left knee and now there is a knot behind it. Transition of care: patient was not received from another setting of care. Onset of symptoms was June 01, 2018. Risk Assessment: Do you want to hurt yourself or someone else? Patient reports no desire to harm self or others. Initial Sepsis Screen: Does the patient meet any 2 criteria? No. Patient's initial sepsis screen is negative. Does the patient have a suspected source of infection? No. Patient's initial sepsis screen is negative. Care prior to arrival: None. 10:33 Method Of Arrival: Ambulatory la1 10:33 Acuity: NELY 3 la1 Historical: - Allergies: 10:34 Sulfa (Sulfonamide Antibiotics); la1 - PMHx: 10:34 ADD/ADHD; Anxiety; Depression; Diabetes - NIDDM; Hyperlipidemia; Hypertension; la1 Myocardial infarction; stroke; - Immunization history:: Adult Immunizations up to date. - Social history:: Smoking status: Patient uses tobacco products, smokes one-half pack cigarettes per day. - Ebola Screening: : No symptoms or risks identified at this time. Screenin:49 Abuse screen: Denies threats or abuse. Nutritional screening: No deficits noted. em Tuberculosis screening: No symptoms or risk factors identified. Fall Risk None identified. Assessment: 11:00 General: Appears in no apparent distress. comfortable, Behavior is calm, cooperative, em Denies fever. Pain: Complains of pain in plantar aspect of left second toe Pain currently is 10 out of 10 on a pain scale. Neuro: Level of Consciousness is awake, alert, obeys commands, Oriented to person, place, time, situation. Cardiovascular: Capillary refill < 3 seconds Patient's skin is warm and dry. Respiratory: Airway is patent Respiratory effort is even, unlabored, Respiratory pattern is regular, symmetrical, Breath sounds are clear bilaterally. Derm: Skin is intact, is healthy with good turgor, Skin is pink, warm \T\ dry. Musculoskeletal: Amputation of left first toe. Capillary refill < 3 seconds, Range of motion: intact in all extremities. 11:15 Reassessment: I agree with previous assessment. hb 12:00 Reassessment: Patient appears in no apparent distress at this time. Patient and/or em family updated on plan of care and expected duration. Pain level reassessed. Patient is alert, oriented x 3, equal unlabored respirations, skin warm/dry/pink. rates pain 7/10 Patient states feeling better. Vital Signs: 10:34 BP 121 / 79; Pulse 95; Resp 18; Temp 97.6; Pulse Ox 98% on R/A; Weight 102.97 kg; la1 Height 5 ft. 3 in. (160.02 cm); Pain 10/10; 12:00 BP 116 / 68; Pulse 80; Resp 18; Pulse Ox 99% on R/A; em 10:34 Body Mass Index 40.21 (102.97 kg, 160.02 cm) la1 ED Course: 10:29 Patient arrived in ED. ag5 10:30 Unknown, Unknown is Private Physician. ag5 10:34 Triage completed. la1 10:35 Arm band placed on left wrist. la1 10:36 Wang Olivas MD is Attending Physician. ernie 10:49 Patient has correct armband on for positive identification. Bed in low position. Call em light in reach. Side rails up X2. 10:57 Braydon Gamino LVN is Primary Nurse. em 12:24 Trip Carson DPM is Referral Physician. ernie 12:29 US Extremity Venous Unilateral Ltd In Process Unspecified. EDMS 12:33 Ultrasound completed. Patient tolerated well. Notified ED Physician jae. sg3 12:52 No provider procedures requiring assistance completed. Patient did not have IV access em during this emergency room visit. Administered Medications: 11:14 Drug: [place] 10 mg-325 mg 1 tabs Route: PO; em 12:00 Follow up: Response: No adverse reaction; Pain is decreased em 11:14 Drug: Zofran 4 mg Route: PO; em 12:56 Follow up: Response: No adverse reaction; Nausea is decreased em Point of Care Testing: Blood Glucose: 11:41 Blood Glucose: 108 mg/dL; em Ranges: Outcome: 12:26 Discharge ordered by MD. klein 12:52 Discharged to home ambulatory. em 12:52 Condition: good 12:52 Discharge instructions given to patient, Instructed on discharge instructions, follow up and referral plans. medication usage, Demonstrated understanding of instructions, follow-up care, medications, Prescriptions given X 1. 12:57 Patient left the ED. em Signatures: Dispatcher [employer] Wang Woo MD MD cha Munoz, Edgar, MAT REPAIRER MAT REPAIRER em Cristian Ratliff RN RN la1 Estefanía Silver RN RN Sherin Meyers 3 Jeff Perry 5
[2018-06-01 13:03] VITALS: TEMP 97.6
[2018-06-01 13:04] VITALS: BP 116/68; O2SAT 99
--- NOTE | 2018-06-01 15:07 | RAD REPORT ---
EXAM DESCRIPTION: US - Extremity Venous Uni Ltd - 06/01/2018 12:30 pm CLINICAL HISTORY: PAIN Leg swelling and edema. COMPARISON: <Comparisons> FINDINGS: Left lower extremity venous system was interrogated with Doppler technique. Normal flow, c ompressibility and augmentation was noted. There is no DVT present. IMPRESSION: No evidence of left lower extremity deep venous thrombosis.
== END 2018-06-01 12:57 | disposition home or self-care (01) ==
LOC: ER 10:26
DX: M79.675 Pain in left toe(s) (principal); L84 Corns and callosities; E11.9 Type 2 diabetes mellitus without complications; E88.2 Lipomatosis, not elsewhere classified; E78.5 Hyperlipidemia, unspecified; F90.9 Attention-deficit hyperactivity disorder, unspecified type; F41.9 Anxiety disorder, unspecified; F32.9 Major depressive disorder, single episode, unspecified; I10 Essential (primary) hypertension; I25.2 Old myocardial infarction; Z88.2 Allergy status to sulfonamides; F17.210 Nicotine dependence, cigarettes, uncomplicated
CPT/HCPCS: 82962; 93971; 99283

== ENCOUNTER 2018-06-24 19:17 | Emergency (ER) | payer OTHER ==
--- OUTSIDE RECORDS SUMMARY | 2018-06-24 19:19 | XMS REPORT | Clinical Summary ---
:1965 Author Organization [facility] Address [address] [place] [address] Care Team Providers Name Role Phone Jael [...] History of gastric surgery 08/31/2015 History of [place] (myocardial infarction) 08/31/2015 H/O section 08/31/2015 Smoking [...] Not on file Results Not on fileafter 06/23/2017 Insurance Payer Benefit Plan / Group Subscriber ID Type Phone Address [place] xxxxxxxxx Advance Directives For more information, please contact:[address] [phone] Code Status Date Activated Date Inactivated Comments Full Code 09/07/2015 9:59 PM 09/08/2015 3:23 PM This code status was determined by: Patient Full Code 08/30/2015 7:48 PM 09/01/2015 2:01 PM This code status was determined by: Patient
--- OUTSIDE RECORDS SUMMARY | 2018-06-24 19:19 | XMS REPORT ---
:1965 Author Organization [facility] Address [address] [place] [place] [address] Care Team Providers Name Role Phone Unavailable Unavailable Unavailable Problems This patient has no known problems. Allergies, Adverse Reactions, Alerts This patient has no known allergies or adverse reactions. Medications This patient has no known medications.
[2018-06-24 20:55] LABS: Absolute Lymphocytes (CBC) 0.8 K/uL (0.7-4.9); Absolute Monocytes 0.1 K/uL (0.1-1.3); Absolute Neutrophil 4.8 K/uL (1.8-8.0); Basophils % 0.3 % (0-1.3); Eosinophils % 1.4 % (0-4.4); Hematocrit 39.8 % (36.0-45.0); Lymphocytes % 13.2 % (15.3-44.8); Monocytes % 2.6 % (3.3-12.3); RBC Red Blood Cell Count 4.55 M/uL (3.86-4.86)
[2018-06-24 20:58] LABS: Protime INR 1.06
[2018-06-24 21:13] LABS: ALT/SGPT 21 U/L (12-78); AST/SGOT 15 U/L (15-37); Albumin 3.9 g/dL (3.4-5.0); Alkaline Phosphatase 113 U/L (45-117); BUN Blood Urea Nitrogen 8 mg/dL (7-18); Bicarbonate 24 mmol/L (21-32); Bilirubin Direct < 0.1 mg/dL (0-0.2); Bilirubin Total 0.4 mg/dL (0.2-1.0); CKMB Creatine Kinase MB < 1.0 ng/mL (0.3-3.6); Creatine Phosphokinase 179 U/L (26-192); Glucose Level 85 mg/dL (74-106); NT PRO-BNP 37 pg/mL (<125); Potassium 3.9 mmol/L (3.5-5.1); Protein, Total 8.2 g/dL (6.4-8.2); Sodium Level 142 mmol/L (136-145); Troponin (Emerg Dept Use Only) < 0.02 ng/mL (0.0-0.045)
[2018-06-24] MEDS ORDERED: IBUPROFEN 400 MG TAB ONE (21:32)
[2018-06-24] MEDS ORDERED: MORPHINE 2 MG/ML SYR ONE (21:32)
--- NOTE | 2018-06-24 22:14 | EDPHYS ---
Physician Documentation [facility] Name: Che Helton Age: 52 yrs Sex: Female : 1965 Arrival Date: 06/24/2018 Time: 19:20 Bed 8 Private MD: ED Physician Rene Blank HPI: 06/25 01:48 This 52 yrs old Black Female presents to ER via EMS with complaints of Non-Productive tw4 Cough, Fever, Headache. 01:48 The patient or guardian reports cough, with no sputum. tw4 01:49 Onset: The symptoms/episode began/occurred this morning. Severity of symptoms: At their tw4 worst the symptoms were very mild, in the emergency department the symptoms are unchanged. Modifying factors: The symptoms are alleviated by nothing, the symptoms are aggravated by nothing. Associated signs and symptoms: The patient has no apparent associated signs or symptoms. The patient has not experienced similar symptoms in the past. 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:24 LMP N/A - Hysterectomy aa1 Historical: - Allergies: 19:29 Sulfa (Sulfonamide Antibiotics); aa1 - Home Meds: 19:29 amlodipine 25 mg tab 1 tab once daily [Active]; aspirin 81 mg Oral chew 1 tab once aa1 daily [Active]; Cymbalta 30mg in the morning, 60mg at night Oral [Active]; metformin 500 mg Oral tab 1 tab 2 times per day [Active]; metoprolol tartrate 25 mg Oral tab 1 tab once daily [Active]; multivitamin with minerals Oral daily [Active]; Plavix 75 mg Oral tab 1 tab once daily [Active]; Seroquel 25 mg Oral tab 1 tab nightly [Active]; Nitrostat 0.4 mg SL subl 1 tab every 5 minutes [Active]; [place] Oral as needed [Active]; atorvastatin oral oral nightly [Active]; - PMHx: 19:29 ADD/ADHD; Anxiety; Depression; Diabetes - NIDDM; Hyperlipidemia; Hypertension; aa1 Myocardial infarction; stroke; - PSHx: 19:29 Hysterectomy; gastric sleeve; L great toe amputation; aa1 - Immunization history:: Pneumococcal vaccine is up to date, Flu vaccine is up to date. - Social history:: Smoking status: Patient uses tobacco products, smokes one-half pack cigarettes per day. - Ebola Screening: : Patient denies exposure to infectious person Patient denies travel to an Ebola-affected area in the 21 days before illness onset. ROS: 06/25 01:49 Constitutional: Negative for fever, chills, and weight loss, Eyes: Negative for injury, tw4 pain, redness, and discharge. Exam: 03:57 Constitutional: This is a well developed, well nourished patient who is awake, alert, tw4 and in no acute distress. Head/Face: Normocephalic, atraumatic. Chest/axilla: Normal chest wall appearance and motion. Nontender with no deformity. No lesions are appreciated. Cardiovascular: Regular rate and rhythm with a normal S1 and S2. No gallops, murmurs, or rubs. Normal PMI, no JVD. No pulse deficits. Respiratory: Lungs have equal breath sounds bilaterally, clear to auscultation and percussion. No rales, rhonchi or wheezes noted. No increased work of breathing, no retractions or nasal flaring. Abdomen/GI: Soft, non-tender, with normal bowel sounds. No distension or tympany. No guarding or rebound. No evidence of tenderness throughout. Back: No spinal tenderness. No costovertebral tenderness. Full range of motion. MS/ Extremity: Pulses equal, no cyanosis. Neurovascular intact. Full, normal range of motion. Neuro: Awake and alert, GCS 15, oriented to person, place, time, and situation. Cranial nerves II-XII grossly intact. Motor strength 5/5 in all extremities. Sensory grossly intact. Cerebellar exam normal. Normal gait. Vital Signs: 06/24 19:24 BP 138 / 71; Pulse 94; Resp 18; Temp 98.9(O); Pulse Ox 98% on R/A; Weight 105.23 kg; aa1 Height 5 ft. 3 in. (160.02 cm); Pain 10/10; 21:03 BP 150 / 107; Pulse 94; Resp 18; Temp 100.2(O); Pulse Ox 100% on R/A; Pain 10/10; aa1 21:38 BP 139 / 78; Pulse 95; Resp 20; Pulse Ox 95% on R/A; Pain 7/10; aa1 22:36 BP 116 / 66; Pulse 94; Resp 18; Temp 98.7; Pulse Ox 96% on R/A; Pain 6/10; aa1 19:24 Body Mass Index 41.10 (105.23 kg, 160.02 cm) aa1 MDM: 19:30 Patient medically screened. tw4 06/25 03:57 Differential Diagnosis: Bronchitis Influenza. Data reviewed: vital signs, nurses notes. tw4 Data interpreted: Pulse oximetry: Interpretation: normal. Counseling: I had a detailed discussion with the patient and/or guardian regarding: the historical points, exam findings, and any diagnostic results supporting the discharge/admit diagnosis, lab results, radiology results. Special discussion: I discussed with the patient/guardian in detail that at this point there is no indication for admission to the hospital. It is understood, however, that if the symptoms persist or worsen the patient needs to return immediately for re-evaluation. 04:26 Test interpretation: by ED physician or midlevel provider: ECG. Medication response: tw4 morphine relieved the patient's pain. Symptoms have resolved. Response to treatment: the patient's symptoms have mildly improved after treatment, and as a result, I will discharge patient. 06/24 19:34 Order name: Troponin (emerg Dept Use Only) tw 06/24 19:34 Order name: Blood Culture Adult (2) tw4 06/24 19:34 Order name: BMP tw 06/24 19:34 Order name: CBC with Diff tw4 06/24 19:34 Order name: Ckmb; Complete Time: 22:10 tw 06/24 19:34 Order name: CPK tw 06/24 19:34 Order name: Hepatic Function tw 06/24 19:34 Order name: Magnesium tw 06/24 19:34 Order name: NT PRO-BNP; Complete Time: 22:10 tw4 06/24 19:34 Order name: PT-INR; Complete Time: 22:10 tw4 06/24 19:34 Order name: Ptt, Activated tw 06/24 19:35 Order name: Troponin (Emerg Dept Use Only) EDOH 06/24 19:35 Order name: Blood Culture EDOH 06/24 19:35 Order name: Basic Metabolic Panel; Complete Time: 22:09 EDOH 06/24 19:34 Order name: XRAY Chest Pa And Lat (2 Views) tw 06/24 19:34 Order name: Cardiac monitoring; Complete Time: 20:03 tw4 06/24 19:34 Order name: EKG - Nurse/Tech; Complete Time: 20:03 tw4 06/24 19:34 Order name: IV Saline Lock; Complete Time: 20:48 tw4 06/24 19:34 Order name: Labs collected and sent; Complete Time: 20:48 tw4 06/24 19:34 Order name: O2 Per Protocol; Complete Time: 20:04 tw4 06/24 19:34 Order name: O2 Sat Monitoring; Complete Time: 20:04 tw4 06/24 19:35 Order name: CBC with Automated Diff; Complete Time: 22:10 EDMS 06/24 21:24 Order name: Flu mt EC:57 Rate is 91 beats/min. Rhythm is regular. QRS [place] is Normal. [place] interval is normal. QRS tw4 interval is normal. QT interval is normal. No Q waves. T waves are Normal. No ST changes noted. Clinical impression: NSR w/ Non-specific ST/T Changes. Interpreted by me. Reviewed by me. Administered Medications: 06/24 21:22 Drug: Motrin 800 mg Route: PO; aa1 22:22 Follow up: Response: No adverse reaction; Temperature is decreased aa1 21:22 Drug: morphine 2 mg Route: IVP; Site: left forearm; aa1 22:22 Follow up: Response: No adverse reaction; Pain is decreased aa1 Disposition: 06/25 04:27 Chart complete. tw4 Disposition: 06/24/18 22:13 Discharged to Home. Impression: Bronchitis, not specified as acute or chronic. - Condition is Stable. - Discharge Instructions: Acute Bronchitis, Adult, Upper Respiratory Infection, Adult. - Prescriptions for Tessalon Perles 100 mg Oral Capsule - take 1 capsule by ORAL route every 8 hours As needed; 15 capsule. Zithromax Z- [place] 250 mg Oral Tablet - take 1 tablet by ORAL route as directed for 5 days Day 1 - take two (2) tablets one time. Day 2, 3, 4 , 5 take one (1) tablet once daily.; 6 tablet. - Medication Reconciliation Form, Thank You Letter, Antibiotic Education, Prescription Opioid Use form. - Follow up: Private Physician; When: Upon discharge from the Emergency Department; Reason: If symptoms return, Recheck today's complaints, Continuance of care. - Problem is new. - Symptoms have improved. Signatures: Dispatcher [employer] EDAlexus Paz RN RN aa1 Rene Blank MD MD tw4 Corrections: (The following items were deleted from the chart) 06/24 22:48 22:13 06/24/2018 22:13 Discharged to Home. Impression: Bronchitis, not specified as aa1 acute or chronic. Condition is Stable. Forms are Medication Reconciliation Form, Thank You Letter, Antibiotic Education, Prescription Opioid Use. Follow up: Private Physician; When: Upon discharge from the Emergency Department; Reason: If symptoms return, Recheck today's complaints, Continuance of care. Problem is new. Symptoms have improved. tw4
--- NOTE | 2018-06-24 22:14 | ER ---
Nurse's Notes [facility] Name: Che Helton Age: 52 yrs Sex: Female : 1965 Arrival Date: 06/24/2018 Time: 19:20 Bed 8 Private MD: Diagnosis: Bronchitis, not specified as acute or chronic Presentation: 06/24 19:23 Presenting complaint: Patient states: she woke up this am with a severe headache and a aa1 dry cough. States she then began running fever as well and temp at home of 101.1. Describes headache as pressure behind her eyes. Reports her chest also began to hurt so she took NTG SL x 2 at approx 1400. Also reports taking ASA 81 mg PO and Tylenol 1 gm PO. Upon arrival to ED pt reports pain still 10/10 and reports she feels like her head is going to explode. Transition of care: patient was not received from another setting of care. Onset of symptoms was June 24, 2018. Risk Assessment: Do you want to hurt yourself or someone else? Patient reports no desire to harm self or others. Initial Sepsis Screen: Does the patient meet any 2 criteria? HR > 90 bpm. Does the patient have a suspected source of infection? No. Patient's initial sepsis screen is negative. Care prior to arrival: None. 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 LMP N/A - Hysterectomy aa1 Historical: - Allergies: 19:29 Sulfa (Sulfonamide Antibiotics); aa1 - Home Meds: 19:29 amlodipine 25 mg tab 1 tab once daily [Active]; aspirin 81 mg Oral chew 1 tab once aa1 daily [Active]; Cymbalta 30mg in the morning, 60mg at night Oral [Active]; metformin 500 mg Oral tab 1 tab 2 times per day [Active]; metoprolol tartrate 25 mg Oral tab 1 tab once daily [Active]; multivitamin with minerals Oral daily [Active]; Plavix 75 mg Oral tab 1 tab once daily [Active]; Seroquel 25 mg Oral tab 1 tab nightly [Active]; Nitrostat 0.4 mg SL subl 1 tab every 5 minutes [Active]; [place] Oral as needed [Active]; atorvastatin oral oral nightly [Active]; - PMHx: 19:29 ADD/ADHD; Anxiety; Depression; Diabetes - NIDDM; Hyperlipidemia; Hypertension; aa1 Myocardial infarction; stroke; - PSHx: 19:29 Hysterectomy; gastric sleeve; L great toe amputation; aa1 - Immunization history:: Pneumococcal vaccine is up to date, Flu vaccine is up to date. - Social history:: Smoking status: Patient uses tobacco products, smokes one-half pack cigarettes per day. - Ebola Screening: : Patient denies exposure to infectious person Patient denies travel to an Ebola-affected area in the 21 days before illness onset. Screenin:24 Abuse screen: Denies threats or abuse. Denies injuries from another. Nutritional aa1 screening: No deficits noted. Tuberculosis screening: No symptoms or risk factors identified. Fall Risk None identified. Assessment: 19:24 General: Appears in no apparent distress. comfortable, Behavior is calm, cooperative, aa1 appropriate for age. Pain: Complains of pain in face and scalp Pain currently is 10 out of 10 on a pain scale. Quality of pain is described as pressure, throbbing, Pain began this morning Is continuous. Neuro: Level of Consciousness is awake, alert, obeys commands, Oriented to person, place, time, situation, Moves all extremities. Full function Speech is normal. Cardiovascular: Heart tones S1 S2 present Capillary refill < 3 seconds Clubbing of nail beds is absent JVD is absent Patient's skin is warm and dry. Rhythm is regular Chest pain is described as vague, is located in anterior chest wall began 8 hrs ago is aggravated by cough. Respiratory: Reports cough that is non-productive, Airway is patent Respiratory effort is even, unlabored, Respiratory pattern is regular, symmetrical, Breath sounds are clear bilaterally. GI: No signs and/or symptoms were reported involving the gastrointestinal system. : No signs and/or symptoms were reported regarding the genitourinary system. EENT: No signs and/or symptoms were reported regarding the EENT system. Derm: Skin is intact, is healthy with good turgor, Skin is pink, warm \T\ dry. Musculoskeletal: Circulation, motion, and sensation intact. Capillary refill < 3 seconds. 20:29 Reassessment: Patient appears in no apparent distress at this time. Patient and/or aa1 family updated on plan of care and expected duration. Pain level reassessed. Patient is alert, oriented x 3, equal unlabored respirations, skin warm/dry/pink. Pt taken to x-ray at this time. Labs sent. 21:03 Reassessment: Patient appears in no apparent distress at this time. Patient and/or aa1 family updated on plan of care and expected duration. Pain level reassessed. Patient is alert, oriented x 3, equal unlabored respirations, skin warm/dry/pink. Pt back from x-ray. Requesting pain medication for headache; MD notified. 21:37 Reassessment: Patient appears in no apparent distress at this time. Patient and/or aa1 family updated on plan of care and expected duration. Pain level reassessed. Patient is alert, oriented x 3, equal unlabored respirations, skin warm/dry/pink. Awaiting lab results. 21:44 Reassessment: Pt states she is hungry and requesting sandwich. aa1 22:36 Reassessment: Patient appears in no apparent distress at this time. Patient is alert, aa1 oriented x 3, equal unlabored respirations, skin warm/dry/pink. Discussed d/c \T\ f/u instructions with pt \T\ family; denies questions or concerns at this time. Ambulates to lobby with steady gait. Patient states feeling better. Patient states symptoms have improved. Vital Signs: 19:24 BP 138 / 71; Pulse 94; Resp 18; Temp 98.9(O); Pulse Ox 98% on R/A; Weight 105.23 kg; aa1 Height 5 ft. 3 in. (160.02 cm); Pain 10/10; 21:03 BP 150 / 107; Pulse 94; Resp 18; Temp 100.2(O); Pulse Ox 100% on R/A; Pain 10/10; aa1 21:38 BP 139 / 78; Pulse 95; Resp 20; Pulse Ox 95% on R/A; Pain 7/10; aa1 22:36 BP 116 / 66; Pulse 94; Resp 18; Temp 98.7; Pulse Ox 96% on R/A; Pain 6/10; aa1 19:24 Body Mass Index 41.10 (105.23 kg, 160.02 cm) aa ED Course: 19:20 Patient arrived in ED. aa1 19:24 Arm band placed on right wrist. aa1 19:24 Patient has correct armband on for positive identification. Bed in low position. Call aa1 light in reach. Side rails up X2. whey department operator on. Pulse ox on. NIBP on. Warm blanket given. 19:24 EKG done, by ED staff, reviewed by Rene Blank MD. aa1 19:26 Triage completed. aa1 19:30 Rene Blank MD is Attending Physician. tw4 20:03 Alexus Mahmood RN is Primary Nurse. aa1 20:12 Missed attempt(s): 22 gauge in left forearm. Bleeding controlled, band aid applied, oe catheter tip intact. 20:13 Missed attempt(s): 22 gauge in right antecubital area. Bleeding controlled, band aid oe applied, catheter tip intact. 20:19 Missed attempt(s): 20 gauge in left antecubital area. Bleeding controlled, band aid aa1 applied, catheter tip intact. 20:24 Initial lab(s) drawn, by me, sent to lab. First set of blood cultures drawn by me. aa1 Inserted saline lock: 22 gauge in left forearm, using aseptic technique. Blood collected. 20:37 XRAY Chest Pa And Lat (2 Views) In Process Unspecified. EDMS 22:36 No provider procedures requiring assistance completed. IV discontinued, intact, aa1 bleeding controlled, No redness/swelling at site. Pressure dressing applied. Administered Medications: 21:22 Drug: Motrin 800 mg Route: PO; aa1 22:22 Follow up: Response: No adverse reaction; Temperature is decreased aa1 21:22 Drug: morphine 2 mg Route: IVP; Site: left forearm; aa1 22:22 Follow up: Response: No adverse reaction; Pain is decreased aa1 Outcome: 22:13 Discharge ordered by . tw4 22:36 Discharged to home ambulatory, with family. aa1 22:36 Condition: good 22:36 Discharge instructions given to patient, family, Instructed on discharge instructions, follow up and referral plans. medication usage, Demonstrated understanding of instructions, follow-up care, medications, Prescriptions given X 2. 22:38 Patient left the ED. aa1 Signatures: Dispatcher [employer] EDMS Alexus Mahmood, JULIEN VICTORIA aa1 Gil Shelley Terrence, MD MD tw4 Corrections: (The following items were deleted from the chart) 22:52 22:48 Patient left the ED. aa1 aa1
[2018-06-25 00:46] VITALS: TEMP 100.2
[2018-06-25 00:48] VITALS: BP 139/78; O2SAT 95
--- NOTE | 2018-06-25 07:27 | RAD REPORT ---
EXAM DESCRIPTION: RAD - Chest Pa And Lat (2 Views) - 06/24/2018 8:38 pm CLINICAL HISTORY: Cough, shortness of breath COMPARISON: May 13 TECHNIQUE: PA and lateral views of the chest were obtained. FINDINGS: The lungs are clear. Heart size is normal and central vasculature is within normal limit s. No pleural effusion or pneumothorax seen. No acute bony finding noted. No aortic abnormality. IMPRESSION: No acute cardiopulmonary process.
--- NOTE | 2018-06-25 16:51 | EKG ---
Test Date: 2018-06-24 Test Time: 19:21:46 Supervisor Yard: DEVAN MEASUREMENT RESULTS: Intervals: Rate: 91 OK: 174 QRSD: 92 QT: 386 QTc: 474 [place]: P: 68 OK: 174 QRS: -2 T: 87 INTERPRETIVE STATEMENTS: Normal sinus rhythm Biatrial enlargement Left ventricular hypertrophy T wave abnormality, consider lateral ischemia Abnormal ECG Compared to ECG 05/13/2018 20:48:31 Atrial abnormality now present Atrial premature complex(es) no longer present Prolonged QT interval no longer present Electronically Signed On 06-25-18 16:50:55 CDT by Jamal Alvarado
== END 2018-06-24 22:48 | disposition home or self-care (01) ==
LOC: ER 19:17
DX: J40 Bronchitis, not specified as acute or chronic (principal); I10 Essential (primary) hypertension; E11.9 Type 2 diabetes mellitus without complications; E78.5 Hyperlipidemia, unspecified; F32.9 Major depressive disorder, single episode, unspecified; F41.9 Anxiety disorder, unspecified; F90.9 Attention-deficit hyperactivity disorder, unspecified type; I25.2 Old myocardial infarction; F17.210 Nicotine dependence, cigarettes, uncomplicated; Z79.01 Long term (current) use of anticoagulants; Z79.82 Long term (current) use of aspirin; Z88.2 Allergy status to sulfonamides; Z86.73 Personal history of transient ischemic attack (TIA), and cerebral infarction without residual deficits
CPT/HCPCS: 36415; 71046; 80048; 80076; 82550; 82553; 83735; 83880; 84484; 85025; 85610; 85730; 87040; 87804; 93005; 96374; 99285; J2270

== ENCOUNTER 2018-10-07 16:39 | Emergency (ER) | payer OTHER ==
--- OUTSIDE RECORDS SUMMARY | 2018-10-07 16:43 | XMS REPORT | Clinical Summary ---
:1965 Author Organization [facility] Address [address] [place] [address] Care Team Providers Name Role Phone Jael [...] History of gastric surgery 08/31/2015 History of DE (myocardial infarction) 08/31/2015 H/O section 08/31/2015 Smoking [...] Not on file Results Not on fileafter 10/06/2017 Insurance Payer Benefit Plan / Group Subscriber ID Type Phone Address [place] xxxxxxxxx Advance Directives For more information, please contact:[address] [phone] Code Status Date Activated Date Inactivated Comments Full Code 09/07/2015 9:59 PM 09/08/2015 3:23 PM This code status was determined by: Patient Full Code 08/30/2015 7:48 PM 09/01/2015 2:01 PM This code status was determined by: Patient
--- OUTSIDE RECORDS SUMMARY | 2018-10-07 16:43 | XMS REPORT ---
:1965 [facility] Address [address] [place] [address] [address] [place] [address] Care Team Providers Name Role Phone Unavailable Unavailable Unavailable Problems This patient has no known problems. Allergies, Adverse Reactions, Alerts This patient has no known allergies or adverse reactions. Medications This patient has no known medications.
[2018-10-07] MEDS ORDERED: LEVALBUTEROL 1.25 MG/3 ML NEB ONE (17:08)
[2018-10-07] MEDS ORDERED: HYDROCODONE/CHLORPHEN 5 ML/OSYR ONE (17:46)
--- NOTE | 2018-10-07 17:56 | EDPHYS ---
Physician Documentation [facility] Name: Che Helton Age: 52 yrs Sex: Female : 1965 Arrival Date: 10/07/2018 Time: 16:42 Bed 8 Private MD: ED Physician Giovanni Xiong HPI: 10/07 17:07 This 52 yrs old Black Female presents to ER via Ambulatory with complaints of Headache, rn Congestion, cough. 17:07 The patient or guardian reports cough. Onset: The symptoms/episode began/occurred 2 rn week(s) ago. Severity of symptoms: At their worst the symptoms were moderate, in the emergency department the symptoms are unchanged. Modifying factors: The symptoms are alleviated by nothing, the symptoms are aggravated by nothing. The patient has experienced similar episodes in the past. Reports cough, green sputum, began 2 weeks ago, smokes, significant other with similar cough and got better. Feels generalized weakness and fatigue. No hemoptysis. . Historical: - Allergies: 16:56 Sulfa (Sulfonamide Antibiotics); la1 - PMHx: 16:56 ADD/ADHD; Anxiety; Depression; Diabetes - NIDDM; Hyperlipidemia; Hypertension; la1 Myocardial infarction; stroke; - Immunization history:: Adult Immunizations up to date. - Social history:: Smoking status: Patient uses tobacco products, smokes one-half pack cigarettes per day. - Ebola Screening: : No symptoms or risks identified at this time. - Family history:: not pertinent. - Hospitalizations: : No recent hospitalization is reported. ROS: 17:09 Constitutional: + subjective fever and chills Eyes: Negative for injury, pain, redness, rn and discharge, Neck: Negative for injury, pain, and swelling, Cardiovascular: Negative for chest pain, palpitations, and edema, Respiratory: + cough Abdomen/GI: Negative for abdominal pain, diarrhea, and constipation, + post-tussive emesis MS/Extremity: Negative for injury and deformity, Skin: Negative for injury, rash, and discoloration, Neuro: Negative for headache, numbness, tingling, and seizure. Exam: 17:09 Constitutional: This is a well developed, well nourished patient who is awake, alert, rn and in no acute distress. Head/Face: Normocephalic, atraumatic. Eyes: Pupils equal round and reactive to light, extra-ocular motions intact. Lids and lashes normal. Conjunctiva and sclera are non-icteric and not injected. Cornea within normal limits. Periorbital areas with no swelling, redness, or edema. ENT: MMM, no stridor, mild pharyngeal erythema Neck: Trachea midline, no thyromegaly or masses palpated, and no cervical lymphadenopathy. Supple, full range of motion without nuchal rigidity, or vertebral point tenderness. No Meningismus. Cardiovascular: Regular rate and rhythm. No pulse deficits. Respiratory: No increased work of breathing, no retractions or nasal flaring. Faint wheezing. Abdomen/GI: soft, non-tender MS/ Extremity: Pulses equal, no cyanosis. Neurovascular intact. Full, normal range of motion. Equal circumference. Neuro: Awake and alert, GCS 15 Vital Signs: 16:56 Pulse 98; Resp 16; Temp 98.4; Pulse Ox 99% on R/A; Weight 104.33 kg; Height 5 ft. 3 in. la1 (160.02 cm); 16:57 BP 168 / 99; la1 18:17 BP 145 / 88; Pulse 91; Resp 17; Temp 98; Pulse Ox 99% on R/A; rv 16:56 Body Mass Index 40.74 (104.33 kg, 160.02 cm) la1 MDM: 17:02 Patient medically screened. rn 17:53 Differential Diagnosis: Bronchitis Upper Respiratory Infection Pneumonia. Differential rn Diagnosis: Viral Syndrome. Data reviewed: vital signs, nurses notes, radiologic studies, plain films, and as a result, I will discharge patient. Test interpretation: by ED physician or midlevel provider: plain radiologic studies, CXR without focal consolidation/pneumonia, negative for pneumothorax. Counseling: I had a detailed discussion with the patient and/or guardian regarding: the historical points, exam findings, and any diagnostic results supporting the discharge/admit diagnosis, the presence of at least one elevated blood pressure reading (>120/80) during this emergency department visit, radiology results, the need for outpatient follow up, to return to the emergency department if symptoms worsen or persist or if there are any questions or concerns that arise at home. Response to treatment: the patient's symptoms have mildly improved after treatment, and as a result, I will discharge patient. Special discussion: I discussed with the patient/guardian in detail that at this point there is no indication for admission to the hospital. It is understood, however, that if the symptoms persist or worsen the patient needs to return immediately for re-evaluation. 10/07 17:07 Order name: XRAY Chest Pa And Lat (2 Views); Complete Time: 18:17 rn 10/07 17:44 Order name: EKG Electrocardiogram EDMS Administered Medications: 07:50 Drug: Tussionex Pennkinetic ER 5 ml Route: PO; rv 18:16 Follow up: Response: No adverse reaction; Marked relief of symptoms rv 17:10 Drug: Xopenex 1.25 mg Route: Inhalation; rv 18:17 Follow up: Response: Marked relief of symptoms rv Disposition: 10/07/18 17:55 Discharged to Home. Impression: Bronchitis, not specified as acute or chronic, Cough. - Condition is Stable. - Discharge Instructions: Steps to Quit Smoking, Cough, Adult. - Prescriptions for Zithromax Z- Galileo 250 mg Oral Tablet - take 1 tablet by ORAL route as directed for 5 days Day 1 - take two (2) tablets one time. Day 2, 3, 4 , 5 take one (1) tablet once daily.; 6 tablet. Albuterol Sulfate 90 mcg/actuation - inhale 1-2 puff by INHALATION route every 4-6 hours; 1 Inhaler. Guaifenesin AC 10- 100 mg/5 mL Oral Liquid - take 10 milliliter by ORAL route every 4 hours As needed; 240 milliliter. - Medication Reconciliation Form, Thank You Letter, Antibiotic Education, Prescription Opioid Use form. - Follow up: Private Physician; When: As needed; Reason: Recheck today's complaints, Re-evaluation by your physician. - Problem is an ongoing problem. - Symptoms have improved. Signatures: Dispatcher [employer] EDMS Giovanni Xiong MD MD rn Attema, Lee RN RN la1 Foster Mcdonald RN RN rv Corrections: (The following items were deleted from the chart) 18:18 17:55 10/07/2018 17:55 Discharged to Home. Impression: Bronchitis, not specified as rv acute or chronic; Cough. Condition is Stable. Discharge Instructions: Steps to Quit Smoking, Cough, Adult. Prescriptions for Zithromax Z-Galileo 250 mg Oral Tablet - take 1 tablet by ORAL route as directed for 5 days Day 1 - take two (2) tablets one time. Day 2, 3, 4 , 5 take one (1) tablet once daily.; 6 tablet, Albuterol Sulfate 90 mcg/actuation - inhale 1-2 puff by INHALATION route every 4-6 hours; 1 Inhaler, Guaifenesin AC 10-100 mg/5 mL Oral Liquid - take 10 milliliter by ORAL route every 4 hours As needed; 240 milliliter. and Forms are Medication Reconciliation Form, Thank You Letter, Antibiotic Education, Prescription Opioid Use. Follow up: Private Physician; When: As needed; Reason: Recheck today's complaints, Re-evaluation by your physician. Problem is an ongoing problem. Symptoms have improved. rn
--- NOTE | 2018-10-07 17:56 | ER ---
Nurse's Notes [facility] Name: Che Helton Age: 52 yrs Sex: Female : 1965 Arrival Date: 10/07/2018 Time: 16:42 Bed 8 Private MD: Diagnosis: Bronchitis, not specified as acute or chronic;Cough Presentation: 10/07 16:55 Presenting complaint: Patient states: Cough, congestion, OLSON, vomiting, symptoms started la1 2 weeks ago. Transition of care: patient was not received from another setting of care. Onset of symptoms was October 07, 2018. Risk Assessment: Do you want to hurt yourself or someone else? Patient reports no desire to harm self or others. Initial Sepsis Screen: Does the patient meet any 2 criteria? No. Patient's initial sepsis screen is negative. Does the patient have a suspected source of infection? No. Patient's initial sepsis screen is negative. Care prior to arrival: None. 16:55 Method Of Arrival: Ambulatory la1 16:55 Acuity: NELY 3 la1 Triage Assessment: 17:25 Headache History: Denies prior headaches. General: Appears in no apparent distress. rv comfortable. Pain: Pain currently is 5 out of 10 on a pain scale. Pain began suddenly, Also complains of no other associated symptoms. Historical: - Allergies: 16:56 Sulfa (Sulfonamide Antibiotics); la1 - PMHx: 16:56 ADD/ADHD; Anxiety; Depression; Diabetes - NIDDM; Hyperlipidemia; Hypertension; la1 Myocardial infarction; stroke; - Immunization history:: Adult Immunizations up to date. - Social history:: Smoking status: Patient uses tobacco products, smokes one-half pack cigarettes per day. - Ebola Screening: : No symptoms or risks identified at this time. - Family history:: not pertinent. - Hospitalizations: : No recent hospitalization is reported. Screenin:24 Abuse screen: Denies threats or abuse. Denies injuries from another. Nutritional rv screening: No deficits noted. Tuberculosis screening: No symptoms or risk factors identified. Fall Risk None identified. Assessment: 17:23 General: Appears in no apparent distress. comfortable, Behavior is calm, cooperative. rv Pain: Complains of pain in HEAD. Neuro: Level of Consciousness is awake, alert, obeys commands, Oriented to person, place, time, situation, Reports headache. Cardiovascular: Patient's skin is warm and dry. Respiratory: Airway is patent. Respiratory: Reports cough that is. GI: No signs and/or symptoms were reported involving the gastrointestinal system. : No signs and/or symptoms were reported regarding the genitourinary system. EENT: No signs and/or symptoms were reported regarding the EENT system. Derm: Skin is intact. Musculoskeletal: No signs and/or symptoms reported regarding the musculoskeletal system. Vital Signs: 16:56 Pulse 98; Resp 16; Temp 98.4; Pulse Ox 99% on R/A; Weight 104.33 kg; Height 5 ft. 3 in. la1 (160.02 cm); 16:57 BP 168 / 99; la1 18:17 BP 145 / 88; Pulse 91; Resp 17; Temp 98; Pulse Ox 99% on R/A; rv 16:56 Body Mass Index 40.74 (104.33 kg, 160.02 cm) la1 ED Course: 16:42 Patient arrived in ED. as 16:44 Laly Chamorro FNP-C is PHCP. snw 16:44 Giovanni Xiong MD is Attending Physician. snw 16:55 Arm band placed on left wrist. la1 16:56 Triage completed. la1 17:02 Giovanni Xiong MD is Attending Physician. rn 17:08 Foster Mcdonald RN is Primary Nurse. rv 17:25 Patient has correct armband on for positive identification. Bed in low position. Call rv light in reach. Side rails up X2. Adult w/ patient. credentialer on. Pulse ox on. NIBP on. 17:34 EKG done, by neurology technologist. reviewed by Giovanni Xiong MD. at1 17:45 XRAY Chest Pa And Lat (2 Views) In Process Unspecified. EDMS 18:17 No provider procedures requiring assistance completed. Patient did not have IV access rv during this emergency room visit. Administered Medications: 07:50 Drug: Tussionex Pennkinetic ER 5 ml Route: PO; rv 18:16 Follow up: Response: No adverse reaction; Marked relief of symptoms rv 17:10 Drug: Xopenex 1.25 mg Route: Inhalation; rv 18:17 Follow up: Response: Marked relief of symptoms rv Outcome: 17:55 Discharge ordered by . rn 18:17 Discharged to home ambulatory, with family. rv 18:17 Condition: improved 18:17 Discharge instructions given to patient, family, Instructed on discharge instructions, follow up and referral plans. medication usage, Demonstrated understanding of instructions, follow-up care, medications, Prescriptions given X 3. 18:18 Patient left the ED. rv Signatures: Dispatcher [employer] EDMS Laly Chamorro, EPOXY FABRICATION SUPERVISOR-C EPOXY FABRICATION SUPERVISOR-Csnw Rowan Hernandez Roman, MD MD rn Gonzales, Amanda, entry level mechanical engineer EKG Tat1 Cristian Ratliff RN RN la1 Foster Mcdonald, RN RN rv
--- NOTE | 2018-10-07 18:08 | RAD REPORT ---
EXAM DESCRIPTION: RAD - Chest Pa And Lat (2 Views) - 10/07/2018 5:43 pm CLINICAL HISTORY: COUGH Chest pain. COMPARISON: <Comparisons> FINDINGS: The lungs are clear. The heart is normal in size. No displaced fractures. IMPRESSION: No acute or concerning finding suspected.
[2018-10-07 21:00] VITALS: O2SAT 99
[2018-10-07 21:02] VITALS: BP 145/88; TEMP 98
--- NOTE | 2018-10-08 09:50 | EKG ---
Test Date: 2018-10-07 Test Time: 17:26:39 Mica Splitter: TAJ MEASUREMENT RESULTS: Intervals: Rate: 69 TN: 174 QRSD: 98 QT: 456 QTc: 488 [place]: P: 62 TN: 174 QRS: -13 T: 94 INTERPRETIVE STATEMENTS: Normal sinus rhythm Voltage criteria for left ventricular hypertrophy T wave abnormality, consider lateral ischemia Prolonged QT Abnormal ECG Compared to ECG 06/24/2018 19:21:46 Prolonged QT interval now present Atrial abnormality no longer present T-wave abnormality still present Possible ischemia still present Electronically Signed On 10-08-18 09:49:34 CDT by Jamal Alvarado
== END 2018-10-07 18:18 | disposition home or self-care (01) ==
LOC: ER 16:39
DX: J40 Bronchitis, not specified as acute or chronic (principal); F41.9 Anxiety disorder, unspecified; F32.9 Major depressive disorder, single episode, unspecified; E11.9 Type 2 diabetes mellitus without complications; E78.5 Hyperlipidemia, unspecified; I10 Essential (primary) hypertension; I25.2 Old myocardial infarction; F17.210 Nicotine dependence, cigarettes, uncomplicated; Z88.2 Allergy status to sulfonamides
CPT/HCPCS: 71046; 93005; 99285

== ENCOUNTER 2018-10-26 01:14 | Emergency (ER) | payer OTHER ==
--- OUTSIDE RECORDS SUMMARY | 2018-10-26 01:16 | XMS REPORT | Clinical Summary ---
:1965 Author Organization [facility] Address [address] [place] [address] Care Team Providers Name Role Phone Jael [...] History of gastric surgery 08/31/2015 History of MT (myocardial infarction) 08/31/2015 H/O section 08/31/2015 Smoking [...] Not on file Results Not on fileafter 10/25/2017 Insurance Payer Benefit Plan / Group Subscriber ID Type Phone Address [place] MED[place]ID [place] xxxxxxxxx Advance Directives For more information, please contact:[address] [phone] Code Status Date Activated Date Inactivated Comments Full Code 09/07/2015 9:59 PM 09/08/2015 3:23 PM This code status was determined by: Patient Full Code 08/30/2015 7:48 PM 09/01/2015 2:01 PM This code status was determined by: Patient
--- OUTSIDE RECORDS SUMMARY | 2018-10-26 01:16 | XMS REPORT ---
:1965 Author [facility] Address [address] [place] [address] [address] [place] [address] Care Team Providers Name Role Phone Unavailable Unavailable Unavailable Problems This patient has no known problems. Allergies, Adverse Reactions, Alerts This patient has no known allergies or adverse reactions. Medications This patient has no known medications.
--- OUTSIDE RECORDS SUMMARY | 2018-10-26 01:16 | XMS REPORT | Summary of Care ---
:1965 Author Organization [facility] Address [address] [place] [address] Care Team Providers Name Role Phone Edmund Perez Unavailable Alexus Traore Primary Care Provider Reason for Visit Reason Comments Refill Request Rx Concern/Question Encounter Details Date Type Department Care Team Description 10/15/2018 Telephone [facility] Cristina Short MD Refill Request; Rx Cardiology- [address] Concern/Question [address] [place] [phone] Allergies Active Allergy Reactions Severity Noted Date Comments Sulfa (Sulfonamide Antibiotics) Anaphylaxis 01/10/2016 documented as of this encounter (statuses as of 10/16/2018) Medications Medication Sig Dispensed Refills Start Date End Date Status aspirin 81 mg Take 81 mg by 0 Active chewable tablet mouth daily. atorvastatin Take 40 mg by 0 Active (LIPITOR) 40 mg mouth at tablet bedtime. DULoxetine Take 30 mg by 0 Active (CYMBALTA) 30 mg mouth daily. capsule metFORMIN Take 500 mg 0 Active (GLUCOPHAGE) 1,000 by mouth 2 mg tablet (two) times daily with meals. clopidogrel Take 1 tablet 30 tablet 0 01/12/2016 Active (PLAVIX) 75 mg by mouth tablet daily. gabapentin Take 1 90 capsule 0 01/12/2016 Active (NEURONTIN) 300 mg capsule by capsule mouth 3 (three) times daily. amitriptyline 25 mg Take 25 mg by 0 Active tablet mouth at bedtime as needed for Insomnia. HYDROcodone-acetami Take 1 tablet 0 Active nophen (NORCO) by mouth 10-325 mg tablet every 6 (six) hours as needed for Pain (scale 7-10). QUEtiapine Take 50 mg by 0 Active (SEROQUEL) 50 mg mouth daily. tablet nitroglycerin 0.[address] Place 1 1 Bottle 5 04/18/2018 Active mg sublingual tablet under tabletIndications: the tongue Chest pain, every 5 unspecified type (five) minutes as needed for Chest pain. diltiazem (CARDIZEM Take 1 30 capsule 3 10/16/2018 Active CD) 180 mg 24 hr capsule by capsuleIndications: mouth daily. Chest pain, unspecified type diltiazem (CARDIZEM Take 1 30 capsule 3 04/18/2018 10/16/2018 Discontinued CD) 180 mg 24 hr capsule by capsuleIndications: mouth daily. Chest pain, unspecified type documented as of this encounter (statuses as of 10/16/2018) Active Problems Problem Noted Date Essential hypertension 03/17/2016 Dyslipidemia 03/17/2016 Coronary-myocardial bridge 03/17/2016 Type 2 diabetes mellitus without complication, without long-term current 03/17 use of insulin Tobacco abuse 03/17/2016 Morbid obesity with body mass index of 40.0-49.9 01/11/2016 Chest pain 01/10/2016 documented as of this encounter (statuses as of 10/16/2018) Resolved Problems Problem Noted Date Resolved Date Obesity (BMI 30-39.9) 02/13/2016 07/02/2018 Morbid obesity with body mass index of 50 or higher 01/11/2016 07/02/2018 documented as of this encounter (statuses as of 10/16/2018) Social History Tobacco Use Types Packs/Day Years Used Date Current Every Day Smoker Cigarettes 0.25 8 Smokeless Tobacco: Never Used Alcohol Use Drinks/Week oz/Week Comments No 0 Standard drinks or equivalent 0.0 Sex Assigned at Date Recorded Not on file Job Start Date Occupation Industry Not on file Not on file Not on file Travel History Travel Start Travel End No recent travel history available. documented as of this encounter Last Filed Vital Signs Not on filedocumented in this encounter Plan of Treatment Date Type Specialty Care Team Description 01/05/2019 Office Visit Cardiology Cristina Short MD [address] [place] [address] [place] [id number] [phone] Health Maintenance Due Date Last Done Comments PNEUMOCOCCAL 0-64 YEARS COMBINED 12/02/1971 SERIES (1 of 1 - PPSV23) EYE EXAM 12/02/1975 URINE MICROALBUMIN 12/02/1975 FOOT EXAM 12/02/1983 DTaP,Tdap,and Td Vaccines (1 - 1984 Tdap) PAP SMEAR 1986 MAMMOGRAM 2005 COLONOSCOPY 12/02/2015 Zoster Recombinant Vaccine 12/02/2015 (SHINGRIX) (1 of 2) HgA1C 07/09/2016 01/10/2016 LDL-C 01/10/2017 01/11/2016 INFLUENZA VACCINE (#1) 2018 CREATININE (SERUM) 07/17/2019 07/16/2018, 09/30/2017, 12/19/2016, Additional history exists documented as of this encounter Implants Implanted Type Area Mobile Equipment Mechanic Device Shelf Model / Identifier Expiration Date Serial / Lot Phalinx Cannulated [facility] [id number] / Implanted: Qty: 1 on 07/22/2018 by Andrew Romero Jr., DPM at [facility] [employer] 0 / 0 Kwire 0.9mm X 102mm [facility] [id number] / Implanted: Qty: 1 on 07/22/2018 by Andrew Romero Jr., DPM at [facility] [employer] 0 / 0 documented as of this encounter Results Not on filedocumented in this encounter Visit Diagnoses Diagnosis Chest pain, unspecified type documented in this encounter Insurance Payer Benefit Plan / Subscriber ID Effective Dates Phone Address Type Group [facility] [id number] 2018-Presen PPO/POS HEALTHCARE t PPO/POS [facility] xxxxxxxxx 2018-[place]en Medicaid COMM PLAN - PLUS t MANAGED MEDICAID documented as of this encounter
[2018-10-26] MEDS ORDERED: NA CHLORIDE 0.9% 1,000 ML ONE (01:18)
[2018-10-26] MEDS ORDERED: ONDANSETRON 4 MG/2 ML VIAL ONE (01:32)
[2018-10-26] MEDS ORDERED: MORPHINE 4 MG/ML SYR ONE (01:32)
[2018-10-26 01:43] LABS: Absolute Lymphocytes (CBC) 2.7 K/uL (0.7-4.9); Basophils % 0.9 % (0-1.3); Hematocrit 38.1 % (36.0-45.0); Lymphocytes % 34.3 % (15.3-44.8); MPV 9.6 fL (7.6-11.3); RBC Red Blood Cell Count 4.45 M/uL (3.86-4.86)
[2018-10-26 01:57] LABS: Albumin 4.5 g/dL (3.4-5.0); Bilirubin Direct 0.1 mg/dL (0-0.2); Bilirubin Total 0.3 mg/dL (0.2-1.0); Potassium 3.6 mmol/L (3.5-5.1); Protein, Total 8.3 g/dL (6.4-8.2)
[2018-10-26] MEDS ORDERED: MEPERIDINE HCL 50 MG/ML ONE ×2 (02:02→03:13)
--- NOTE | 2018-10-26 03:04 | ER ---
Nurse's Notes [facility] Name: Che Helton Age: 52 yrs Sex: Female : 1965 Arrival Date: 10/26/2018 Time: 01:16 Bed 8 Private MD: Diagnosis: Lower abdominal pain, unspecified Presentation: 10/26 01:00 Presenting complaint: EMS states: Reports right lower abdominal pain that started at ea midnight. Pt reports pain is sharp and constant. Reports urinary frequency and pain radiates to back. Transition of care: patient was not received from another setting of care. Onset of symptoms was October 26, 2018. Risk Assessment: Do you want to hurt yourself or someone else? Patient reports no desire to harm self or others. Initial Sepsis Screen: Does the patient meet any 2 criteria? No. Patient's initial sepsis screen is negative. Does the patient have a suspected source of infection? No. Patient's initial sepsis screen is negative. Care prior to arrival: Medication(s) given: Nalbuphine 10 mg IV initiated. 20 GA, in the left antecubital area. 01:00 Method Of Arrival: EMS: [facility] ea 01:00 Acuity: NELY 3 ea Triage Assessment: 01:00 General: Appears uncomfortable, Behavior is appropriate for age. Pain: Complains of ea pain in right lower quadrant Pain radiates to low back area. Neuro: Level of Consciousness is awake, alert, obeys commands, Oriented to person, place, time, situation. Cardiovascular: Patient's skin is warm and dry. Respiratory: Airway is patent Respiratory effort is even, unlabored, Respiratory pattern is regular, symmetrical. GI: Abdomen is non-distended, Reports lower abdominal pain. Derm: Skin is normal, Skin temperature is warm. Historical: - Allergies: 01:32 Sulfa (Sulfonamide Antibiotics); ea - Home Meds: 01:32 amlodipine 25 mg tab 1 tab once daily [Active]; aspirin 81 mg Oral chew 1 tab once ea daily [Active]; atorvastatin Oral nightly [Active]; Cymbalta 30mg in the morning, 60mg at night Oral [Active]; metformin 500 mg Oral tab 1 tab 2 times per day [Active]; metoprolol tartrate 25 mg Oral tab 1 tab once daily [Active]; multivitamin with minerals Oral daily [Active]; Nitrostat 0.4 mg SL subl 1 tab every 5 minutes [Active]; [place] Oral as needed [Active]; Plavix 75 mg Oral tab 1 tab once daily [Active]; Seroquel 25 mg Oral tab 1 tab nightly [Active]; - PMHx: 01:32 stroke; Myocardial infarction; Hypertension; Hyperlipidemia; Diabetes - NIDDM; ea Depression; Anxiety; ADD/ADHD; - PSHx: 01:32 Hysterectomy; gastric sleeve; ea - Immunization history:: Adult Immunizations up to date. - Social history:: Smoking status: unknown. - Family history:: not pertinent. - Ebola Screening: : No symptoms or risks identified at this time. - Hospitalizations: : No recent hospitalization is reported. Screenin:29 Abuse screen: Denies threats or abuse. Nutritional screening: No deficits noted. ea Tuberculosis screening: No symptoms or risk factors identified. Fall Risk IV access (20 points). Assessment: 01:00 Reassessment: see triage assessment. ea 02:35 Reassessment: Patient and/or family updated on plan of care and expected duration. Pain ea level reassessed. Patient is alert, oriented x 3, equal unlabored respirations, skin warm/dry/pink. 03:26 Reassessment: Patient and/or family updated on plan of care and expected duration. Pain ea level reassessed. Patient is alert, oriented x 3, equal unlabored respirations, skin warm/dry/pink. Discharge instruction given to patient, verbalized the understanding of instruction. Pt left ED per wheelchair, accompanied by significant other, pt tolerating well. Vital Signs: 01:00 BP 109 / 75; Pulse 78; Resp 20; Temp 97.9; Pulse Ox 100% ; Weight 107.95 kg; Height 5 ea ft. 3 in. (160.02 cm); Pain 10/10; 02:30 BP 116 / 78; Pulse 87; Resp 18; Pulse Ox 99% ; ea 03:15 BP 123 / 77; Pulse 90; Resp 18; Pulse Ox 100% ; ea 03:20 Temp 98; ea 01:00 Body Mass Index 42.16 (107.95 kg, 160.02 cm) ea ED Course: 01:00 Patient has correct armband on for positive identification. Bed in low position. Call ea light in reach. Side rails up X2. 01:16 Patient arrived in ED. rv 01:18 Giovanni Xiong MD is Attending Physician. rn 01:28 Sapna Torres RN is Primary Nurse. ea 01:28 Inserted saline lock: 20 gauge in right antecubital area, using aseptic technique. IV ea inserted per Nicolas VICTORIA. 01:33 Arm band placed on right wrist. Patient placed in an exam room, on a stretcher, on ea pulse oximetry. 01:37 Triage completed. ea 01:37 Radiology exam delayed due to lab results not completed at this time. (BUN/Creatinine). nj 02:[address] nj 02:15 CT completed. Patient tolerated procedure well. Patient moved back from CT. nj 02:29 CT Abd/Pelvis - IV Contrast Only In Process Unspecified. EDMS 03:20 IV discontinued, intact, bleeding controlled, No redness/swelling at site. Pressure ea dressing applied. 03:27 No provider procedures requiring assistance completed. ea Administered Medications: 01:30 Drug: NS 0.9% 1000 ml Route: IV; Rate: 1000 ml; Site: right antecubital; rv 03:10 Follow up: Response: No adverse reaction; IV Status: Completed infusion; IV Intake: ea 1000ml 01:33 Drug: Zofran 4 mg Route: IVP; Site: right antecubital; rv 03:05 Follow up: Response: No adverse reaction ea 01:34 Drug: morphine 4 mg Route: IVP; Site: right antecubital; rv 01:34 Follow up: rass 0 rv 02:04 Follow up: Response: No adverse reaction; Pain is unchanged, physician notified; RASS: rv Alert and Calm (0) 02:04 Drug: Demerol 50 mg {Note: rass 0.} Route: IVP; Site: right antecubital; rv 03:05 Follow up: Response: No adverse reaction; RASS: Alert and Calm (0) ea 03:12 Drug: Demerol 50 mg Route: IVP; Site: right antecubital; ea 03:12 Follow up: Response: RASS: Alert and Calm (0) ea 03:25 Follow up: Response: No adverse reaction; RASS: Alert and Calm (0) ea Intake: 03:10 IV: 1000ml; Total: 1000ml. ea Outcome: 03:02 Discharge ordered by . rn 03:27 Discharged to home via wheelchair, with significant other. ea 03:27 Condition: stable 03:27 Discharge instructions given to patient, Instructed on discharge instructions, follow up and referral plans. Demonstrated understanding of instructions, follow-up care. 03:29 Patient left the ED. ea Signatures: Dispatcher [employer] Giovanni Burton MD MD rn Jordan, Nathan nj Antunez, Elena, RN RN ea Vicente, Ronaldo, RN RN rv
--- NOTE | 2018-10-26 03:05 | EDPHYS ---
Physician Documentation [facility] Name: Che Helton Age: 52 yrs Sex: Female : 1965 Arrival Date: 10/26/2018 Time: 01:16 Bed 8 Private MD: ED Physician Giovanni Xiong HPI: 10/26 01:19 This 52 yrs old Black Female presents to ER via Unassigned with complaints of abdominal rn pain. 01:19 The patient presents with abdominal pain right lower quadrant. Onset: The rn symptoms/episode began/occurred 1 hour(s) ago. The symptoms do not radiate. Associated signs and symptoms: Pertinent positives: nausea and vomiting, Pertinent negatives: blood in stools, constipation, diarrhea, dysuria, fever. The symptoms are described as sharp, stabbing. Modifying factors: The symptoms are alleviated by nothing, the symptoms are aggravated by movement, touching the area. Severity of pain: At its worst the pain was moderate in the emergency department the pain is unchanged. The patient has experienced similar episodes in the past. The patient has not recently seen a physician. Reports sudden onset RLQ abd pain, began 1 hour [employer], reports chronic nausea/vomiting, attributes it to gastric sleeve. Significant other reports "has been like this whole time i've known her". States RLQ pain is new, no blood in stool. No diarrhea/constipation.. Historical: - Allergies: 01:32 Sulfa (Sulfonamide Antibiotics); ea - Home Meds: 01:32 amlodipine 25 mg tab 1 tab once daily [Active]; aspirin 81 mg Oral chew 1 tab once ea daily [Active]; atorvastatin Oral nightly [Active]; Cymbalta 30mg in the morning, 60mg at night Oral [Active]; metformin 500 mg Oral tab 1 tab 2 times per day [Active]; metoprolol tartrate 25 mg Oral tab 1 tab once daily [Active]; multivitamin with minerals Oral daily [Active]; Nitrostat 0.4 mg SL subl 1 tab every 5 minutes [Active]; [place] Oral as needed [Active]; Plavix 75 mg Oral tab 1 tab once daily [Active]; Seroquel 25 mg Oral tab 1 tab nightly [Active]; - PMHx: 01:32 stroke; Myocardial infarction; Hypertension; Hyperlipidemia; Diabetes - NIDDM; ea Depression; Anxiety; ADD/ADHD; - PSHx: 01:32 Hysterectomy; gastric sleeve; ea - Immunization history:: Adult Immunizations up to date. - Social history:: Smoking status: unknown. - Family history:: not pertinent. - Ebola Screening: : No symptoms or risks identified at this time. - Hospitalizations: : No recent hospitalization is reported. ROS: 01:19 Constitutional: Negative for fever, chills, and weight loss, Eyes: Negative for injury, rn pain, redness, and discharge, Neck: Negative for injury, pain, and swelling, Cardiovascular: Negative for chest pain, palpitations, and edema, Respiratory: Negative for shortness of breath, cough, wheezing, and pleuritic chest pain, Abdomen/GI: + abd pain, nausea/vomiting : Negative for injury, bleeding, discharge, and swelling, MS/Extremity: Negative for injury and deformity, Skin: Negative for injury, rash, and discoloration, Neuro: Negative for headache, weakness, numbness, tingling, and seizure. Exam: 01:19 Constitutional: This is a well developed, well nourished patient who is awake, alert rn Head/Face: Normocephalic, atraumatic. Eyes: Pupils equal round and reactive to light, extra-ocular motions intact. Lids and lashes normal. Conjunctiva and sclera are non-icteric and not injected. Cornea within normal limits. Periorbital areas with no swelling, redness, or edema. ENT: dry MM Cardiovascular: Regular rate and rhythm. No pulse deficits. Respiratory: No increased work of breathing, no retractions or nasal flaring. Abdomen/GI: Soft, + RLQ tenderness, no rebound MS/ Extremity: Pulses equal, no cyanosis. Neurovascular intact. Full, normal range of motion. Equal circumference. Neuro: Awake and alert, GCS 15, oriented to person, place, time, and situation. Cranial nerves II-XII grossly intact. Motor strength 5/5 in all extremities. Sensory grossly intact. Cerebellar exam normal. Vital Signs: 01:00 BP 109 / 75; Pulse 78; Resp 20; Temp 97.9; Pulse Ox 100% ; Weight 107.95 kg; Height 5 ea ft. 3 in. (160.02 cm); Pain 10/10; 02:30 BP 116 / 78; Pulse 87; Resp 18; Pulse Ox 99% ; ea 03:15 BP 123 / 77; Pulse 90; Resp 18; Pulse Ox 100% ; ea 03:20 Temp 98; ea 01:00 Body Mass Index 42.16 (107.95 kg, 160.02 cm) ea MDM: 01:18 Patient medically screened. rn 03:01 Differential diagnosis: appendicitis, diverticulitis, non-specific abd pain, rn pancreatitis, Ureterolithiasis. Data reviewed: vital signs, nurses notes, lab test result(s), radiologic studies, CT scan, and as a result, I will discharge patient. Counseling: I had a detailed discussion with the patient and/or guardian regarding: the historical points, exam findings, and any diagnostic results supporting the discharge/admit diagnosis, lab results, radiology results, the need for outpatient follow up, to return to the emergency department if symptoms worsen or persist or if there are any questions or concerns that arise at home. Response to treatment: the patient's symptoms have mildly improved after treatment, and as a result, I will discharge patient. Special discussion: Based on the patient's Hx, exam, and Dx evaluation, there is no indication for emergent surgery or inpatient Tx. It is understood by the patient/guardian that if the Sx's persist or worsen they need to return immediately for re-evaluation. I discussed with the patient/guardian in detail that at this point there is no indication for admission to the hospital. It is understood, however, that if the symptoms persist or worsen the patient needs to return immediately for re-evaluation. 03:01 ED course: CT no acute findings, normal vitals, improved with pain meds. . rn 10/26 01:19 Order name: Basic Metabolic Panel; Complete Time: rn 10/26 01:19 Order name: CBC with Diff; Complete Time: rn 10/26 01:19 Order name: Creatinine for Radiology; Complete Time: : rn 10/26 01:19 Order name: Hepatic Function; Complete Time: rn 10/26 01:19 Order name: Lipase; Complete Time: rn 10/26 01:19 Order name: IV Saline Lock; Complete Time: rn 10/26 01:19 Order name: Labs collected and sent; Complete Time: rn 10/26 01:19 Order name: CT Abd/Pelvis - IV Contrast Only rn Administered Medications: 01:30 Drug: NS 0.9% 1000 ml Route: IV; Rate: 1000 ml; Site: right antecubital; rv 03:10 Follow up: Response: No adverse reaction; IV Status: Completed infusion; IV Intake: ea 1000ml 01:33 Drug: Zofran 4 mg Route: IVP; Site: right antecubital; rv 03:05 Follow up: Response: No adverse reaction ea 01:34 Drug: morphine 4 mg Route: IVP; Site: right antecubital; rv 01:34 Follow up: rass 0 rv 02:04 Follow up: Response: No adverse reaction; Pain is unchanged, physician notified; RASS: rv Alert and Calm (0) 02:04 Drug: Demerol 50 mg {Note: rass 0.} Route: IVP; Site: right antecubital; rv 03:05 Follow up: Response: No adverse reaction; RASS: Alert and Calm (0) ea 03:12 Drug: Demerol 50 mg Route: IVP; Site: right antecubital; ea 03:12 Follow up: Response: RASS: Alert and Calm (0) ea 03:25 Follow up: Response: No adverse reaction; RASS: Alert and Calm (0) ea Disposition: 10/26/18 03:02 Discharged to Home. Impression: Lower abdominal pain, unspecified. - Condition is Stable. - Discharge Instructions: Abdominal Pain, Adult, Pain Without a Known Cause. - Medication Reconciliation Form, Thank You Letter, Antibiotic Education, Prescription Opioid Use form. - Follow up: Private Physician; When: As needed; Reason: Recheck today's complaints, Re-evaluation by your physician. - Problem is new. - Symptoms have improved. Signatures: Dispatcher [employer] EDMS Giovanni Xiong MD MD rn Antunez, Elena, RN RN Foster Pemberton RN RN rv Corrections: (The following items were deleted from the chart) 01:22 01:19 Constitutional: Negative for fever, chills, and weight loss, Eyes: Negative for rn injury, pain, redness, and discharge, Neck: Negative for injury, pain, and swelling, Cardiovascular: Negative for chest pain, palpitations, and edema, Respiratory: Negative for shortness of breath, cough, wheezing, and pleuritic chest pain, Abdomen/GI: + abd pain, nausea/vomiting MS/Extremity: Negative for injury and deformity, Skin: Negative for injury, rash, and discoloration, Neuro: Negative for headache, weakness, numbness, tingling, and seizure, rn 03:29 03:02 10/26/2018 03:02 Discharged to Home. Impression: Lower abdominal pain, ea unspecified. Condition is Stable. Forms are Medication Reconciliation Form, Thank You Letter, Antibiotic Education, Prescription Opioid Use. Follow up: Private Physician; When: As needed; Reason: Recheck today's complaints, Re-evaluation by your physician. Problem is new. Symptoms have improved. rn
[2018-10-26 04:03] VITALS: BP 123/77; O2SAT 100
[2018-10-26 04:04] VITALS: TEMP 98
--- NOTE | 2018-10-27 11:10 | RAD REPORT ---
EXAM DESCRIPTION: CT - Abdomen Pelvis W Contrast - 10/26/2018 6:40 am CLINICAL HISTORY: The patient is 52 years old and is Female; RLQ abd pain TECHNIQUE: Axial computed tomography images of the abdomen and pelvis with intravenous contrast. S agittal and coronal reformatted images were created and reviewed. This CT exam was performed using one or more of the following dose reduction techniques: automated exposure control, adjustment of t he mA and/or kV according to patient size, and/or use of iterative reconstruction technique. COMPARISON: No relevant prior studies available. FINDINGS: LUNG BASES: Unremarkable. No mass. No consolidation. ABDOMEN: LIVER: The liver is mildly fatty. GALLBLADDER AND BILE DUCTS: No calcified stones. No ductal dilation. PANCREAS: No ductal dilation. No mass. SPLEEN: Unremarkable. ADRENALS: Unremarkable. No mass. KIDNEYS AND URETERS: Unremarkable. No solid mass. No hydronephrosis. STOMACH AND BOWEL: Postsurgical change of the stomach is noted. The small bowel is normal in elizabeth iber. The distal small bowel is fluid-filled. Stool is noted throughout the colon. There is no mucosa l thickening or evidence of bowel obstruction. PELVIS: APPENDIX: The appendix is normal in caliber without surrounding inflammation. BLADDER: Unremarkable. No mass. REPRODUCTIVE: Unremarkable as visualized. ABDOMEN and PELVIS: INTRAPERITONEAL SPACE: Unremarkable. No free air. No significant fluid collection. BONES/JOINTS: No acute fracture. SOFT TISSUES: The soft tissues are normal. VASCULATURE: Unremarkable. No abdominal aortic aneurysm. LYMPH NODES: Unremarkable. No enlarged lymph nodes. IMPRESSION: No acute findings on this contrasted CT of the abdomen and pelvis to explain the patient 's symptoms. Electronically signed by: Loulou Crespo MD 10/26/2018 2:42 AM CDT Due to temporary technical issues with the PACS/Fluency reporting system, reports are being signed by the in house radiologist as a courtesy to ensure prompt reporting. The interpreting radiologist is f ully responsible for the content of the report.
== END 2018-10-26 03:29 | disposition home or self-care (01) ==
LOC: ER 01:14
DX: R10.30 Lower abdominal pain, unspecified (principal); I25.2 Old myocardial infarction; I10 Essential (primary) hypertension; E78.5 Hyperlipidemia, unspecified; E11.9 Type 2 diabetes mellitus without complications; F41.8 Other specified anxiety disorders; Z88.2 Allergy status to sulfonamides
CPT/HCPCS: 96361; 85025; 80048; 36415; 80076; 83690; 74177; 96375; 96374; 99284; Q9967; J2175 ×2; J7030; J2405

== ENCOUNTER 2018-12-12 16:00 | Emergency (ER) | payer OTHER ==
[2018-12-12] MEDS ORDERED: ASPIRIN 81 MG CHEWABLE TABLET ONE (16:28)
[2018-12-12] MEDS ORDERED: DIAZEPAM 2 MG TABLET ONE (16:28)
--- NOTE | 2018-12-12 17:18 | EKG ---
Test Date: 2018-12-12 Test Time: 16:07:49 Mac Operator: RED MEASUREMENT RESULTS: Intervals: Rate: 91 WI: 182 QRSD: 98 QT: 412 QTc: 506 [place]: P: 76 WI: 182 QRS: 5 T: 81 INTERPRETIVE STATEMENTS: Sinus rhythm with occasional premature atrial complexes Right atrial enlargement Moderate voltage criteria for LVH, may be normal variant Prolonged QT Abnormal ECG Compared to ECG 10/07/2018 17:26:39 Atrial premature complex(es) now present Atrial abnormality now present Electronically Signed On 12-12-18 17:17:59 CDT by Jamal Alvarado
--- NOTE | 2018-12-12 17:36 | RAD REPORT ---
EXAM DESCRIPTION: US - Extremity Venous Uni Ltd - 12/12/2018 5:01 pm CLINICAL HISTORY: SWELLING Leg swelling and edema. COMPARISON: <Comparisons> FINDINGS: Left lower extremity venous system was interrogated with Doppler technique. Normal flow, c ompressibility and augmentation was noted. There is no DVT present. IMPRESSION: No evidence of left lower extremity deep venous thrombosis.
--- NOTE | 2018-12-12 17:37 | RAD REPORT ---
EXAM DESCRIPTION: RAD - Chest Pa And Lat (2 Views) - 12/12/2018 5:14 pm CLINICAL HISTORY: CHEST PAIN Chest pain. COMPARISON: Chest Pa And Lat (2 Views) dated 10/07/2018; Chest Pa And Lat (2 Views) dated 06/24/2018; Chest Single View dated 05/13/2018; Chest Single View dated 04/14/2018 FINDINGS: The lungs are clear. The heart is normal in size. No displaced fractures. IMPRESSION: No acute or concerning finding suspected.
--- NOTE | 2018-12-12 18:22 | ER ---
Nurse's Notes [facility] Name: Che Helton Age: 53 yrs Sex: Female : 1965 Arrival Date: 12/12/2018 Time: 16:02 Bed 5 Private MD: Diagnosis: Pain in left leg;Chest pain, unspecified Presentation: 12/12 16:10 Presenting complaint: Patient states: bump behind L knee that began 1 month ago, but ss began hurting 1 week ago when another bump appeared. Pt states, "I also have a little bit of chest pain, but I don't know if that's because of this going on, or what.". Transition of care: patient was not received from another setting of care. Onset of symptoms is unknown. Risk Assessment: Do you want to hurt yourself or someone else? Patient reports no desire to harm self or others. Initial Sepsis Screen: Does the patient meet any 2 criteria? No. Patient's initial sepsis screen is negative. Does the patient have a suspected source of infection? No. Patient's initial sepsis screen is negative. Care prior to arrival: None. 16:10 Acuity: NELY 3 ss 16:10 Method Of Arrival: Ambulatory ss Historical: - Allergies: 16:14 Sulfa (Sulfonamide Antibiotics); ss - Home Meds: 16:14 amlodipine 25 mg tab 1 tab once daily [Active]; aspirin 81 mg Oral chew 1 tab once ss daily [Active]; atorvastatin Oral nightly [Active]; Cymbalta 30mg in the morning, 60mg at night Oral [Active]; metformin 500 mg Oral tab 1 tab 2 times per day [Active]; metoprolol tartrate 25 mg Oral tab 1 tab once daily [Active]; multivitamin with minerals Oral daily [Active]; Nitrostat 0.4 mg SL subl 1 tab every 5 minutes [Active]; Gantt Oral as needed [Active]; Plavix 75 mg Oral tab 1 tab once daily [Active]; Seroquel 25 mg Oral tab 1 tab nightly [Active]; - PMHx: 16:14 ADD/ADHD; Anxiety; Diabetes - NIDDM; Hyperlipidemia; Depression; Hypertension; ss Myocardial infarction; stroke; - PSHx: 16:14 Hysterectomy; gastric sleeve; ss - Immunization history:: Adult Immunizations up to date. - Social history:: Smoking status: Patient uses tobacco products, smokes one-half pack cigarettes per day. - Ebola Screening: : Patient denies exposure to infectious person Patient denies travel to an Ebola-affected area in the 21 days before illness onset. Screenin:43 Abuse screen: Denies threats or abuse. Denies injuries from another. Nutritional ph screening: No deficits noted. Tuberculosis screening: No symptoms or risk factors identified. Fall Risk None identified. Assessment: 16:41 General: Appears in no apparent distress. comfortable, obese, well groomed, Behavior is ph calm, cooperative, appropriate for age, Denies fever. Pain: Complains of pain in posterior aspect of left knee Pain does not radiate. Neuro: Level of Consciousness is awake, alert, obeys commands, Oriented to person, place, time, situation. Cardiovascular: Reports chest pain, Denies lightheadedness, nausea, shortness of breath, Capillary refill < 3 seconds in bilateral fingers Patient's skin is warm and dry. Chest pain is described as mild, is located in substernal area. Respiratory: Airway is patent Respiratory effort is even, unlabored, Respiratory pattern is regular, symmetrical. Derm: Skin is intact, is healthy with good turgor, Skin is pink, warm \\T\\ dry. Musculoskeletal: Circulation, motion, and sensation intact. Range of motion: intact in all extremities, Swelling present in posterior aspect of left knee. 17:40 Reassessment: Patient appears in no apparent distress at this time. Patient and/or hb family updated on plan of care and expected duration. Pain level reassessed. Patient is alert, oriented x 3, equal unlabored respirations, skin warm/dry/pink. Vital Signs: 16:14 BP 152 / 61; Pulse 87; Resp 17; Pulse Ox 100% on R/A; Weight 105.23 kg; Height 5 ft. 3 ss in. (160.02 cm); Pain 9/10; 17:30 BP 99 / 71; Pulse 81; Resp 16; Pulse Ox 100% on R/A; hb 18:30 BP 127 / 68; Pulse 84; Resp 18; Temp 97.9; Pulse Ox 100% on R/A; ph 16:14 Body Mass Index 41.10 (105.23 kg, 160.02 cm) ED Course: 16:02 Patient arrived in ED. as 16:07 Laly Chamorro FNP-C [facility]. snw 16:07 Tom Domínguez MD is Attending Physician. snw 16:10 Yanna Mays, RN is Primary Nurse. ph 16:13 Triage completed. ss 16:14 Arm band placed on right wrist. ss 16:27 EKG done, by electrical assembly technician. reviewed by Laly MCMANUS. 3 16:43 Patient has correct armband on for positive identification. Placed in gown. Bed in low ph position. Side rails up X 1. Pulse ox on. NIBP on. Door closed. Noise minimized. Warm blanket given. Head of bed elevated. 16:48 Patient maintains SpO2 saturation greater than 95% on room air. ph 17:02 US Extremity Venous Unilateral Ltd In Process Unspecified. EDMS 17:14 Chest Pa And Lat (2 Views) XRAY In Process Unspecified. EDMS 18:42 No provider procedures requiring assistance completed. Patient did not have IV access ph during this emergency room visit. Administered Medications: 16:36 Drug: Valium 2 mg Route: PO; ph 18:41 Follow up: Response: No adverse reaction ph 16:37 Drug: Aspirin Chewable Tablet 324 mg Route: PO; ph 18:41 Follow up: Response: No adverse reaction ph 18:35 Drug: Gantt 5 mg-325 mg 1 tabs Route: PO; ph 18:42 Follow up: Response: No adverse reaction ph Outcome: 18:21 Discharge ordered by MD. snw 18:43 Discharged to home ambulatory, with significant other. ph 18:43 Condition: good 18:43 Discharge instructions given to patient, Instructed on discharge instructions, follow up and referral plans. Demonstrated understanding of instructions, follow-up care. 18:44 Patient left the ED. ph Signatures: Dispatcher [employer] EDMS Laly Chamorro FNP-C APPLICATION ASSISTANT-Csnw Rowan Hernandez Shelby, RN RN Yanna Mays, JULIEN RN ph Estefanía Silver, JULIEN RN Naya Clay 3
--- NOTE | 2018-12-12 18:22 | EDPHYS ---
Physician Documentation [facility] Name: Che Helton Age: 53 yrs Sex: Female : 1965 Arrival Date: 12/12/2018 Time: 16:02 Bed 5 Private MD: ED Physician Tom Domínguez HPI: 12/12 16:20 This 53 yrs old Black Female presents to ER via Ambulatory with complaints of Leg Pain, snw Chest Pain. 16:20 The patient presents with pain, that is acute, tenderness. The complaints affect the snw posterior aspect of left knee. Context: The problem was sustained at an unknown site, resulted from an unknown cause, the patient can fully bear weight, the patient is able to ambulate. Onset: The symptoms/episode began/occurred gradually, 1 week(s) ago, and became persistent. Associated signs and symptoms: The patient has no apparent associated signs or symptoms. Severity of symptoms: At their worst the symptoms were mild. It is unknown whether or not the patient has had similar symptoms in the past. It is unknown whether or not the patient has recently seen a physician. Historical: - Allergies: 16:14 Sulfa (Sulfonamide Antibiotics); ss - Home Meds: 16:14 amlodipine 25 mg tab 1 tab once daily [Active]; aspirin 81 mg Oral chew 1 tab once ss daily [Active]; atorvastatin Oral nightly [Active]; Cymbalta 30mg in the morning, 60mg at night Oral [Active]; metformin 500 mg Oral tab 1 tab 2 times per day [Active]; metoprolol tartrate 25 mg Oral tab 1 tab once daily [Active]; multivitamin with minerals Oral daily [Active]; Nitrostat 0.4 mg SL subl 1 tab every 5 minutes [Active]; [place] Oral as needed [Active]; Plavix 75 mg Oral tab 1 tab once daily [Active]; Seroquel 25 mg Oral tab 1 tab nightly [Active]; - PMHx: 16:14 ADD/ADHD; Anxiety; Diabetes - NIDDM; Hyperlipidemia; Depression; Hypertension; ss Myocardial infarction; stroke; - PSHx: 16:14 Hysterectomy; gastric sleeve; ss - Immunization history:: Adult Immunizations up to date. - Social history:: Smoking status: Patient uses tobacco products, smokes one-half pack cigarettes per day. - Ebola Screening: : Patient denies exposure to infectious person Patient denies travel to an Ebola-affected area in the 21 days before illness onset. ROS: 16:19 Constitutional: Negative for fever, chills, and weight loss, Eyes: Negative for injury, snw pain, redness, and discharge, ENT: Negative for injury, pain, and discharge, Neck: Negative for injury, pain, and swelling, Respiratory: Negative for shortness of breath, cough, wheezing, and pleuritic chest pain, Abdomen/GI: Negative for abdominal pain, nausea, vomiting, diarrhea, and constipation, Back: Negative for injury and pain, : Negative for injury, bleeding, discharge, and swelling, Skin: Negative for injury, rash, and discoloration, Neuro: Negative for headache, weakness, numbness, tingling, and seizure. 16:19 Cardiovascular: Positive for chest pain. 16:19 MS/extremity: Positive for tenderness, swelling posterior to left knee. Exam: 16:18 Constitutional: This is a well developed, well nourished patient who is awake, alert, snw and in no acute distress. Head/Face: Normocephalic, atraumatic. Eyes: Pupils equal round and reactive to light, extra-ocular motions intact. Lids and lashes normal. Conjunctiva and sclera are non-icteric and not injected. Cornea within normal limits. Periorbital areas with no swelling, redness, or edema. ENT: Nares patent. No nasal discharge, no septal abnormalities noted. Tympanic membranes are normal and external auditory canals are clear. Oropharynx with no redness, swelling, or masses, exudates, or evidence of obstruction, uvula midline. Mucous membranes moist. Neck: Trachea midline, no thyromegaly or masses palpated, and no cervical lymphadenopathy. Supple, full range of motion without nuchal rigidity, or vertebral point tenderness. No Meningismus. Chest/axilla: Normal chest wall appearance and motion. Nontender with no deformity. No lesions are appreciated. Cardiovascular: Regular rate and rhythm with a normal S1 and S2. No gallops, murmurs, or rubs. Normal PMI, no JVD. No pulse deficits. Respiratory: Lungs have equal breath sounds bilaterally, clear to auscultation and percussion. No rales, rhonchi or wheezes noted. No increased work of breathing, no retractions or nasal flaring. Abdomen/GI: Soft, non-tender, with normal bowel sounds. No distension or tympany. No guarding or rebound. No evidence of tenderness throughout. Back: No spinal tenderness. No costovertebral tenderness. Full range of motion. Skin: Warm, dry with normal turgor. Normal color with no rashes, no lesions, and no evidence of cellulitis. Neuro: Awake and alert, GCS 15, oriented to person, place, time, and situation. Cranial nerves II-XII grossly intact. Motor strength 5/5 in all extremities. Sensory grossly intact. Cerebellar exam normal. Normal gait. Psych: Awake, alert, with orientation to person, place and time. Behavior, mood, and affect are within normal limits. 16:18 Musculoskeletal/extremity: Extremities: grossly normal except: noted in the posterior aspect of left knee: swelling, tenderness, + pedal pulse, + surgical changes, left great toe amputation, ROM: intact in all extremities, Circulation is intact in all extremities. Sensation intact. Vital Signs: 16:14 BP 152 / 61; Pulse 87; Resp 17; Pulse Ox 100% on R/A; Weight 105.23 kg; Height 5 ft. 3 ss in. (160.02 cm); Pain 9/10; 17:30 BP 99 / 71; Pulse 81; Resp 16; Pulse Ox 100% on R/A; hb 18:30 BP 127 / 68; Pulse 84; Resp 18; Temp 97.9; Pulse Ox 100% on R/A; ph 16:14 Body Mass Index 41.10 (105.23 kg, 160.02 cm) ss MDM: 16:07 Patient medically screened. snw 18:23 Data reviewed: vital signs, nurses notes. Data interpreted: Pulse oximetry: on room air snw is 100 %. Interpretation: normal. Counseling: I had a detailed discussion with the patient and/or guardian regarding: the historical points, exam findings, and any diagnostic results supporting the discharge/admit diagnosis, radiology results, the need for outpatient follow up, to return to the emergency department if symptoms worsen or persist or if there are any questions or concerns that arise at home. Special discussion: Based on the history and exam findings, there is no indication for further emergent testing or inpatient evaluation. I discussed with the patient/guardian the need to see the primary care provider for further evaluation of the symptoms. 12/12 16:17 Order name: Flu; Complete Time: 17:08 snw 12/12 16:17 Order name: US Extremity Venous Unilateral Ltd; Complete Time: 18:09 snw 12/12 16:17 Order name: Chest Pa And Lat (2 Views) XRAY; Complete Time: 18:09 snw 12/12 16:55 Order name: EKG Electrocardiogram; Complete Time: 16:56 EDMS Administered Medications: 16:36 Drug: Valium 2 mg Route: PO; ph 18:41 Follow up: Response: No adverse reaction ph 16:37 Drug: Aspirin Chewable Tablet 324 mg Route: PO; ph 18:41 Follow up: Response: No adverse reaction ph 18:35 Drug: [place] 5 mg-325 mg 1 tabs Route: PO; ph 18:42 Follow up: Response: No adverse reaction ph Disposition: 12/13 15:10 Co-signature as Attending Physician, Tom Domínguez MD. Disposition: 12/12/18 18:21 Discharged to Home. Impression: Pain in left leg, Chest pain, unspecified. - Condition is Stable. - Discharge Instructions: Nonspecific Chest Pain, Leg Cramps, Heat Therapy. - Medication Reconciliation Form, Thank You Letter, Antibiotic Education, Prescription Opioid Use form. - Follow up: Emergency Department; When: As needed; Reason: Worsening of condition. Signatures: Dispatcher [employer] EDMS Laly Chamorro, GROCERY WORKER-C GROCERY WORKER-Csnw Jessi Becker RN RN Yanna Mays RN RN ph Starr, Gregory, MD MD Corrections: (The following items were deleted from the chart) 12/12 18:44 18:21 12/12/2018 18:21 Discharged to Home. Impression: Pain in left leg; Chest pain, ph unspecified. Condition is Stable. Forms are Medication Reconciliation Form, Thank You Letter, Antibiotic Education, Prescription Opioid Use. Follow up: Emergency Department; When: As needed; Reason: Worsening of condition. snw
[2018-12-12] MEDS ORDERED: HYDROCODONE/APAP 5/325 MG TAB ONE (18:25)
[2018-12-12 18:52] VITALS: O2SAT 100
[2018-12-12 18:55] VITALS: BP 127/68; TEMP 97.9
== END 2018-12-12 18:44 | disposition home or self-care (01) ==
LOC: ER 16:00
DX: R07.9 Chest pain, unspecified (principal); M79.605 Pain in left leg; E11.9 Type 2 diabetes mellitus without complications; I10 Essential (primary) hypertension; F41.8 Other specified anxiety disorders; I25.2 Old myocardial infarction; F17.210 Nicotine dependence, cigarettes, uncomplicated; Z88.2 Allergy status to sulfonamides
CPT/HCPCS: 71046; 87804; 93005; 93971; 99284

== ENCOUNTER 2019-02-14 19:19 | Emergency (ER) | payer OTHER ==
--- OUTSIDE RECORDS SUMMARY | 2019-02-14 19:22 | XMS REPORT ---
:1965 Author Organization [employer] Care Team Providers Name Role Phone Long Sullivan Provider Role Unavailable Allergies No Known Allergies Problems Problem Type Condition Code Onset Dates Condition Status Problem Depression with anxiety F41.8 Active Problem HTN (hypertension), benign I10 Active Problem Chronic pain syndrome G89.4 Active Problem Constipation, unspecified K59.00 Active constipation type Problem History of CVA (cerebrovascular Z86.73 Active accident) without residual deficits Problem Primary osteoarthritis of left knee M17.12 Active Problem Bipolar affective disorder, current F31.30 Active episode depressed, current episode severity unspecified Problem Neuropathy G62.9 Active Problem GERD without esophagitis K21.9 Active Problem Controlled type 2 diabetes mellitus E11.9 Active without complication, without long-term current use of insulin Assessment Synovial cyst of popliteal space M71.22 Active [Razo], left knee Problem Mixed hyperlipidemia E78.2 Active Assessment Primary osteoarthritis of left knee M17.12 Active Problem Seasonal allergies J30.2 Active Medications No Known Medications Results No Known Results Summary Purpose [facility] Submission
--- OUTSIDE RECORDS SUMMARY | 2019-02-14 19:22 | XMS REPORT ---
:1965 Author Organization [employer] Care Team Providers Name Role Phone Jayleen Burnetth Provider Role Unavailable Allergies, Adverse Reactions, Alerts Substance Reaction Event Type N.K.D.A. Info Not Available Non Drug Allergy Problems Problem Type Condition Code Onset Dates Condition Status Problem Seasonal allergies J30.2 Active Problem Chronic pain syndrome G89.4 Active Problem Depression with anxiety F41.8 Active Problem History of CVA (cerebrovascular Z86.73 Active accident) without residual deficits Assessment Neuropathy G62.9 Active Problem GERD without esophagitis K21.9 Active Assessment History of CVA (cerebrovascular Z86.73 Active accident) without residual deficits Assessment Constipation, unspecified K59.00 Active constipation type Problem Constipation, unspecified K59.00 Active constipation type Problem Neuropathy G62.9 Active Problem HTN (hypertension), benign I10 Active Problem Controlled type 2 diabetes mellitus E11.9 Active without complication, without long-term current use of insulin Problem Bipolar affective disorder, current F31.30 Active episode depressed, current episode severity unspecified Assessment Seasonal allergies J30.2 Active Assessment Mixed hyperlipidemia E78.2 Active Assessment Chronic pain syndrome G89.4 Active Assessment Controlled type 2 diabetes mellitus E11.9 Active without complication, without long-term current use of insulin Assessment Depression with anxiety F41.8 Active Assessment Bipolar affective disorder, current F31.30 Active episode depressed, current episode severity unspecified Assessment GERD without esophagitis K21.9 Active Assessment HTN (hypertension), benign I10 Active Problem Mixed hyperlipidemia E78.2 Active Medications Medication Code Code Instructions Start End Status Dosage System Date Date Amlodipine ND 26950740530 10 MG Orally Active 1 tablet Besylate Once a day Cyclobenzaprine ND 49666704404 10 MG Orally Active 1 tablet HCl Three times a as needed day Simvastatin ND 68074718995 20 MG Orally Active 1 tablet Once a day in the evening Metformin HCl ND 29191054660 1000 MG Orally Active 1 tablet Twice a day with a meal Alprazolam ND 07716058910 2 MG Orally Active 1 tablet Twice a day Diclofenac Sodium [facility] [address]-14 100 MG Orally Active 1 tablet Once a day with food or milk Oxcarbazepine [facility] 93985583737 300 MG Orally Active 1 tablet Twice a day Linzess [facility] 60261270718 290 MCG Orally Feb 05April Active 1 capsule Once a day 2018 11, at least 2020 30 minutes before the first meal of the day on an empty stomach Plavix [facility] 02285644758 75 MG Orally Active 1 tablet Once a day Nexium [facility] 73276986598 40 MG Orally Active 1 capsule Once a day Duloxetine HCl [facility] 62284531834 30 MG Orally Active 1 capsule Once a day Hydrocodone-Acetam [facility] [address]-54 7.5-500 MG Active as inophen Orally directed Quetiapine [facility] 00069522782 100 MG Orally Active 1 tablet Fumarate Once a day Results No Known Results Summary Purpose [employer] Submission
--- OUTSIDE RECORDS SUMMARY | 2019-02-14 19:22 | XMS REPORT ---
:1965 Author Organization [employer] Care Team Providers Name Role Phone SullivanLong Provider Role Unavailable Allergies, Adverse Reactions, Alerts Substance Reaction Event Type Sulfa Info Not Available Drug Allergy Problems Problem Type Condition Code [...] without long-term current use of insulin Assessment Primary osteoarthritis of left knee M17.12 Active Assessment Acute pain of left knee M25.562 Active Problem Mixed hyperlipidemia E78.2 Active Assessment Synovial cyst of popliteal space M71.22 Active [Razo], left knee Problem Seasonal allergies J30.2 Active Medications Medication Code Code Instructions Start End Status Dosage System Date Date Gabapentin [facility] [address]-93 Active not defined Linzess [facility] 92990267085 290 MCG Orally Feb 05April Active 1 capsule Once a day 2018 at least 2020 30 minutes before the first meal of the day on an empty stomach Oxcarbazepine [facility] 71646283097 300 MG Orally Active 1 tablet Twice a day Quetiapine [facility] 79625789251 100 MG Orally Active 1 tablet Fumarate Once a day Diclofenac Sodium [facility] [address]-80 100 MG Orally Active 1 tablet Once a day with food or milk Plavix [facility] 38182957957 75 MG Orally Active 1 tablet Once a day Cyclobenzaprine [facility] 52250186478 10 MG Orally Active 1 tablet HCl Three times a as needed day Simvastatin [facility] 12260792388 20 MG Orally Active 1 tablet Once a day in the evening Amoxicillin-Pot [facility] [address]-81 Active not Clavulanate defined Alprazolam [facility] 68688204682 2 MG Orally Active 1 tablet Twice a day Amlodipine [facility] 46819314071 10 MG Orally Active 1 tablet Besylate Once a day Hydrocodone-Acetam [facility] [address]-24 7.5-500 MG Active as inophen Orally directed Duloxetine HCl [facility] 48210304039 30 MG Orally Active 1 capsule Once a day Meloxicam [facility] 95322403008 7.5 MG Orally Feb 09Mar 11, Active 1 tablet Once a day 2018 2019 Metformin HCl [facility] 85635660141 1000 MG Orally Active 1 tablet Twice a day with a meal Nexium [facility] 05205110063 40 MG Orally Active 1 capsule Once a day Diltiazem HCl ER [facility] [address]-87 Active not Coated Beads defined Results No Known Results Summary Purpose [employer] Submission
--- OUTSIDE RECORDS SUMMARY | 2019-02-14 19:22 | XMS REPORT ---
:1965 [facility] Address [address] [place] [address] [address] [place] [address] Care Team Providers Name Role Phone Unavailable Unavailable Unavailable Problems This patient has no known problems. Allergies, Adverse Reactions, Alerts This patient has no known allergies or adverse reactions. Medications This patient has no known medications.
--- OUTSIDE RECORDS SUMMARY | 2019-02-14 19:22 | XMS REPORT ---
:1965 Author Organization [employer] Care Team Providers Name Role Phone Lex Orlando Provider Role Unavailable Allergies, Adverse Reactions, Alerts Substance Reaction Event Type N.K.D.A. Info Not Available Non Drug Allergy Problems Problem Type Condition Code Onset Dates Condition Status Problem Mixed hyperlipidemia E78.2 Active Problem Depression with anxiety F41.8 Active Problem Seasonal allergies J30.2 Active Assessment Acute non-recurrent maxillary J01.00 Active sinusitis Assessment Synovial cyst of popliteal space M71.22 Active [Razo], left knee Problem GERD without esophagitis K21.9 Active Problem Controlled type 2 diabetes mellitus E11.9 Active without complication, without long-term current use of insulin Problem History of CVA (cerebrovascular Z86.73 Active accident) without residual deficits Problem HTN (hypertension), benign I10 Active Problem Chronic pain syndrome G89.4 Active Problem Bipolar affective disorder, current F31.30 Active episode depressed, current episode severity unspecified Problem Neuropathy G62.9 Active Medications Medication Code Code Instructions Start End Status Dosage System Date Date Oxcarbazepine [facility] 64607247530 300 MG Orally Active 1 tablet Twice a day Cyclobenzaprine ND 23022937952 10 MG Orally Active 1 tablet HCl Three times a as needed day Plavix ND 53206222372 75 MG Orally Active 1 tablet Once a day Metformin HCl ND 12630605618 1000 MG Orally Active 1 tablet Twice a day with a meal Alprazolam ND 01624555506 2 MG Orally Active 1 tablet Twice a day Quetiapine ND 24812660980 100 MG Orally Active 1 tablet Fumarate Once a day Diclofenac Sodium [facility] [address]-93 100 MG Orally Active 1 tablet Once a day with food or milk Amoxicillin-Pot ND 37224297027 875-125 MG Jan 21Jan Active 1 tablet Clavulanate Orally every 2018 07, 12 hrs 2019 Nexium ND 81398013516 40 MG Orally Active 1 capsule Once a day Simvastatin ND 04855563822 20 MG Orally Dec 30, Active 1 tablet Once a day 2017 in the evening Duloxetine HCl [facility] 66361683737 30 MG Orally Active 1 capsule Once a day Hydrocodone-Acetam [facility] [address]-68 7.5-500 MG Active as inophen Orally directed Amlodipine [facility] 20665168082 10 MG Orally Active 1 tablet Besylate Once a day Results No Known Results Summary Purpose [employer]ClinicalWorks Submission
--- OUTSIDE RECORDS SUMMARY | 2019-02-14 19:23 | XMS REPORT ---
:1965 Author Organization eClinicalWorks Care Team Providers Name Role Phone Orlando Burnett Provider Role Unavailable Allergies No Known Allergies Problems Problem Type Condition Code Onset Dates Condition Status Problem Depression with anxiety F41.8 Active Problem HTN (hypertension), benign I10 Active Problem Chronic pain syndrome G89.4 Active Assessment Constipation, unspecified K59.00 Active constipation type Problem Mixed hyperlipidemia E78.2 Active Problem Seasonal allergies J30.2 Active Problem Constipation, unspecified K59.00 Active constipation [...] complication, without long-term current use of insulin Medications Medication Code Code Instructions Start End Date Status Dosage System Date Amitiza [facility][NOTE 3] 80280105098 24 MCG Orally Feb 13, Active 1 capsule Twice a day 2018 with food and water Linzess [facility][NOTE 3] 79255747342 290 MCG Orally Feb 05April Inactive 1 capsule Once a day 2018 at least 30 minutes before the first meal of the day on an empty stomach Results No Known Results Summary Purpose eClinicalWorks Submission
--- NOTE | 2019-02-14 20:28 | ER ---
Nurse's Notes [facility] Name: Che Helton Age: 53 yrs Sex: Female : 1965 Arrival Date: 02/14/2019 Time: 19:22 Bed 8 Private MD: Diagnosis: Chest pain, unspecified;Type 2 diabetes mellitus;Dyspnea Presentation: 02/14 19:32 Presenting complaint: Patient states: Chest pain and shortness of breath since 1400 aj1 today. Patient also reports pain to left arm. Transition of care: patient was not received from another setting of care. Onset of symptoms was February 14, 2019. Risk Assessment: Do you want to hurt yourself or someone else? Patient reports no desire to harm self or others. Initial Sepsis Screen: Does the patient meet any 2 criteria? HR > 90 bpm. No. Patient's initial sepsis screen is negative. Does the patient have a suspected source of infection? No. Patient's initial sepsis screen is negative. Care prior to arrival: None. 19:32 Method Of Arrival: Wheelchair aj1 19:32 Acuity: NELY 3 aj1 Triage Assessment: 19:34 General: Appears in no apparent distress. comfortable, Behavior is calm, cooperative, aj1 appropriate for age. Pain: Complains of pain in chest and left arm Pain currently is 9 out of 10 on a pain scale. Neuro: Level of Consciousness is awake, alert, obeys commands. Cardiovascular: Patient's skin is warm and dry. Respiratory: Airway is patent Respiratory effort is even, unlabored, Respiratory pattern is regular, symmetrical. CREDIT INTERN: 19:34 LMP N/A - Hysterectomy aj1 Historical: - Allergies: 19:34 Sulfa (Sulfonamide Antibiotics); aj1 - Home Meds: 19:34 amlodipine 25 mg tab 1 tab once daily [Active]; aspirin 81 mg Oral chew 1 tab once aj1 daily [Active]; atorvastatin Oral nightly [Active]; Cymbalta 30mg in the morning, 60mg at night Oral [Active]; metformin 500 mg Oral tab 1 tab 2 times per day [Active]; metoprolol tartrate 25 mg Oral tab 1 tab once daily [Active]; multivitamin with minerals Oral daily [Active]; Nitrostat 0.4 mg SL subl 1 tab every 5 minutes [Active]; [place] Oral as needed [Active]; Plavix 75 mg Oral tab 1 tab once daily [Active]; Seroquel 25 mg Oral tab 1 tab nightly [Active]; - PMHx: 19:34 ADD/ADHD; Anxiety; Depression; Diabetes - NIDDM; Hyperlipidemia; Hypertension; aj1 Myocardial infarction; stroke; - Immunization history:: Flu vaccine is not up to date. - Social history:: Smoking status: Patient uses tobacco products, smokes one-half pack cigarettes per day. - Ebola Screening: : Patient denies travel to an Ebola-affected area in the 21 days before illness onset. - Family history:: not pertinent. Screenin:55 Abuse screen: Denies threats or abuse. Nutritional screening: No deficits noted. jd3 Tuberculosis screening: No symptoms or risk factors identified. Fall Risk Ambulatory Aid- None/Bed Rest/Nurse Assist (0 pts). Gait- Normal/Bed Rest/Wheelchair (0 pts) Mental Status- Oriented to own ability (0 pts). Total Faulkner Fall Scale indicates No Risk (0-24 pts). Assessment: 19:54 General: Appears in no apparent distress. uncomfortable, Behavior is calm, cooperative, jd3 appropriate for age. Pain: Complains of pain in chest Pain radiates to head and left arm Pain began 30 min ago. Neuro: Level of Consciousness is awake, alert, obeys commands, Oriented to person, place, time, situation. Cardiovascular: Heart tones S1 S2 present Capillary refill < 3 seconds Patient's skin is warm and dry. Respiratory: Airway is patent Respiratory effort is even, unlabored, Respiratory pattern is regular, symmetrical, Breath sounds are clear bilaterally. Denies cough, shortness of breath. GI: Abdomen is round non-distended, Reports nausea, Patient currently denies diarrhea, vomiting. : No signs and/or symptoms were reported regarding the genitourinary system. EENT: No signs and/or symptoms were reported regarding the EENT system. Derm: Skin is intact, Skin is dry, Skin is normal, Skin temperature is warm. Musculoskeletal: Circulation, motion, and sensation intact. Range of motion: intact in all extremities. 20:55 Reassessment: Patient appears in no apparent distress at this time. No changes from jd3 previously documented assessment. Patient and/or family updated on plan of care and expected duration. Pain level reassessed. Patient is alert, oriented x 3, equal unlabored respirations, skin warm/dry/pink. 22:08 Reassessment: Patient appears in no apparent distress at this time. Patient and/or jd3 family updated on plan of care and expected duration. Pain level reassessed. Patient is alert, oriented x 3, equal unlabored respirations, skin warm/dry/pink. pt reported she wanted to leave AMA. provider notified. pt signed AMA form. Vital Signs: 19:34 BP 127 / 87; Pulse 100; Resp 20; Temp 98.2; Pulse Ox 100% on R/A; Weight 109.32 kg (R); aj1 Height 5 ft. 3 in. (160.02 cm) (R); Pain 9/10; 22:10 BP 122 / 64; Pulse 82; Resp 19 S; Pulse Ox 97% on R/A; jd3 19:34 Body Mass Index 42.69 (109.32 kg, 160.02 cm) aj1 ED Course: 19:22 Patient arrived in ED. cf2 19:33 Triage completed. aj1 19:34 Arm band placed on Patient placed in an exam room. aj1 19:53 True Gutierrez MD is Attending Physician. ma2 19:53 Paul Willoughby, JULIEN is Primary Nurse. jd3 19:56 Patient has correct armband on for positive identification. Bed in low position. Call jd3 light in reach. Side rails up X 1. Adult w/ patient. monitor car operator on. Pulse ox on. NIBP on. 19:56 Patient maintains SpO2 saturation greater than 95% on room air. jd3 19:59 Attending Physician role handed off by True Gutierrez MD ernie 19:59 Wang Olivas MD is Attending Physician. ernie 20:26 True Vazquez MD is Hospitalizing Provider. ernie 20:35 XRAY Chest (1 view) In Process Unspecified. EDMS 21:55 Missed attempt(s): 20 gauge Bleeding controlled, band aid applied, catheter tip intact. oe 22:10 No provider procedures requiring assistance completed. Patient did not have IV access jd3 during this emergency room visit. 22:10 Missed attempt(s): 22 gauge in left forearm. Bleeding controlled, band aid applied, oe catheter tip intact. Administered Medications: 22:12 Not Given (pt left AMA): NS 0.9% 1000 ml IV at 125 ml/hr continuous jd3 22:12 Not Given (pt left AMA): NS 0.9% 500 ml IV at bolus once jd3 22:12 Not Given (pt left AMA): Aspirin Chewable Tablet 162 mg PO once jd3 22:12 Not Given (pt left AMA): Zofran 4 mg IVP once; over 2 minutes jd3 22:12 Not Given (pt left AMA): morphine 4 mg IVP once; RASS on ADMIN: Combtv4, Very Agttd3, jd3 Agttd2, Rstlss1, AlertClm0, Drwsy-1, Lt Sdtn-2, Mod Sdtn-3, Dp Sdtn-4, UnArsble-5 Outcome: 20:28 Decision to Hospitalize by Provider. [facility] 22:10 AMA AMA form signed j 22:10 Condition: stable 22:10 Instructed on follow up and referral plans. Demonstrated understanding of instructions. 22:12 Patient left the ED. jd3 Signatures: Dispatcher [employer] EDTessa Sheridan, RN RN aj1 Wang Olivas MD MD cha Espinosa, Orlando oe Davies, Jonathon, RN RN jd3 True Gutierrez MD MD ky2 Nalini Shen2 Corrections: (The following items were deleted from the chart) 22:12 21:55 Missed attempt(s): 20 gauge Bleeding controlled, band aid applied, catheter tip oe intact. oe
--- NOTE | 2019-02-14 20:29 | EDPHYS ---
Physician Documentation [facility] Name: Che Helton Age: 53 yrs Sex: Female : 1965 Arrival Date: 02/14/2019 Time: 19:22 Bed 8 Private MD: ED Physician Wang Olivas HPI: 02/14 20:09 This 53 yrs old Black Female presents to ER via Wheelchair with complaints of Chest ernie Pain, Arm Pain, Leg Pain, Headache. 20:09 The patient or guardian reports chest pain that is located primarily in the substernal ernie area, anterior chest wall. Onset: 6 hour(s) ago. The pain does not radiate. Associated signs and symptoms: Pertinent positives: shortness of breath. The chest pain is described as a pressure. Duration: The patient or guardian reports a single episode, that is still ongoing. Severity of pain: At its worst the pain was mild moderate in the emergency department the pain is unchanged. The patient has not experienced similar symptoms in the past. 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 LMP N/A - Hysterectomy aj1 Historical: - Allergies: 19:34 Sulfa (Sulfonamide Antibiotics); aj1 - Home Meds: 19:34 amlodipine 25 mg tab 1 tab once daily [Active]; aspirin 81 mg Oral chew 1 tab once aj1 daily [Active]; atorvastatin Oral nightly [Active]; Cymbalta 30mg in the morning, 60mg at night Oral [Active]; metformin 500 mg Oral tab 1 tab 2 times per day [Active]; metoprolol tartrate 25 mg Oral tab 1 tab once daily [Active]; multivitamin with minerals Oral daily [Active]; Nitrostat 0.4 mg SL subl 1 tab every 5 minutes [Active]; [place] Oral as needed [Active]; Plavix 75 mg Oral tab 1 tab once daily [Active]; Seroquel 25 mg Oral tab 1 tab nightly [Active]; - PMHx: 19:34 ADD/ADHD; Anxiety; Depression; Diabetes - NIDDM; Hyperlipidemia; Hypertension; aj1 Myocardial infarction; stroke; - Immunization history:: Flu vaccine is not up to date. - Social history:: Smoking status: Patient uses tobacco products, smokes one-half pack cigarettes per day. - Ebola Screening: : Patient denies travel to an Ebola-affected area in the 21 days before illness onset. - Family history:: not pertinent. ROS: 20:09 Constitutional: Negative for fever, chills, and weight loss, Eyes: Negative for injury, ernie pain, redness, and discharge, ENT: Negative for injury, pain, and discharge, Neck: Negative for injury, pain, and swelling, Respiratory: Negative for shortness of breath, cough, wheezing, and pleuritic chest pain, Abdomen/GI: Negative for abdominal pain, nausea, vomiting, diarrhea, and constipation, Back: Negative for injury and pain, : Negative for injury, bleeding, discharge, and swelling, MS/Extremity: Negative for injury and deformity, Skin: Negative for injury, rash, and discoloration, Neuro: Negative for headache, weakness, numbness, tingling, and seizure, Psych: Negative for depression, anxiety, suicide ideation, homicidal ideation, and hallucinations, Allergy/Immunology: Negative for hives, rash, and allergies, Endocrine: Negative for neck swelling, polydipsia, polyuria, polyphagia, and marked weight changes, Hematologic/Lymphatic: Negative for swollen nodes, abnormal bleeding, and unusual bruising. 20:09 Cardiovascular: Positive for chest pain. Exam: 20:09 Constitutional: This is a well developed, well nourished patient who is awake, alert, ernie and in no acute distress. Head/Face: Normocephalic, atraumatic. Eyes: Pupils equal round and reactive to light, extra-ocular motions intact. Lids and lashes normal. Conjunctiva and sclera are non-icteric and not injected. Cornea within normal limits. Periorbital areas with no swelling, redness, or edema. ENT: Nares patent. No nasal discharge, no septal abnormalities noted. Tympanic membranes are normal and external auditory canals are clear. Oropharynx with no redness, swelling, or masses, exudates, or evidence of obstruction, uvula midline. Mucous membranes moist. Neck: Trachea midline, no thyromegaly or masses palpated, and no cervical lymphadenopathy. Supple, full range of motion without nuchal rigidity, or vertebral point tenderness. No Meningismus. Chest/axilla: Normal chest wall appearance and motion. Nontender with no deformity. No lesions are appreciated. Cardiovascular: Regular rate and rhythm with a normal S1 and S2. No gallops, murmurs, or rubs. Normal PMI, no JVD. No pulse deficits. Respiratory: Lungs have equal breath sounds bilaterally, clear to auscultation and percussion. No rales, rhonchi or wheezes noted. No increased work of breathing, no retractions or nasal flaring. Abdomen/GI: Soft, non-tender, with normal bowel sounds. No distension or tympany. No guarding or rebound. No evidence of tenderness throughout. Back: No spinal tenderness. No costovertebral tenderness. Full range of motion. Female : Normal external genitalia. Skin: Warm, dry with normal turgor. Normal color with no rashes, no lesions, and no evidence of cellulitis. MS/ Extremity: Pulses equal, no cyanosis. Neurovascular intact. Full, normal range of motion. Neuro: Awake and alert, GCS 15, oriented to person, place, time, and situation. Cranial nerves II-XII grossly intact. Motor strength 5/5 in all extremities. Sensory grossly intact. Cerebellar exam normal. Normal gait. Psych: Awake, alert, with orientation to person, place and time. Behavior, mood, and affect are within normal limits. 20:09 Musculoskeletal/extremity: DVT Exam: No signs of deep vein thrombosis. no pain, no swelling, no tenderness, negative Homans' sign noted on exam, no appreciated bluish discoloration, no erythema, no increased warmth. Vital Signs: 19:34 BP 127 / 87; Pulse 100; Resp 20; Temp 98.2; Pulse Ox 100% on R/A; Weight 109.32 kg (R); aj1 Height 5 ft. 3 in. (160.02 cm) (R); Pain 9/10; 22:10 BP 122 / 64; Pulse 82; Resp 19 S; Pulse Ox 97% on R/A; jd3 19:34 Body Mass Index 42.69 (109.32 kg, 160.02 cm) aj1 MDM: 19:59 Patient medically screened. [facility] 20:11 Data reviewed: vital signs, nurses notes, lab test result(s), EKG, radiologic studies, ernie plain films. 02/14 20: Order name: Basic Metabolic Panel [facility] 02/14 20: Order name: CBC with Diff [facility] 02/14 20: Order name: LFT's [facility] 02/14 20: Order name: Magnesium [facility] 02/14 20:01 Order name: NT PRO-BNP [facility] 02/14 20:01 Order name: PT-INR [facility] 02/14 20:01 Order name: Troponin (emerg Dept Use Only) [facility] 02/14 20: Order name: XRAY Chest (1 view); Complete Time: 21:26 [facility] 02/14 20: Order name: Blood Culture Adult (2) [facility] 02/14 20:01 Order name: Lipase [facility] 02/14 20: Order name: EKG; Complete Time: 20:03 [facility] 02/14 20: Order name: Cardiac monitoring; Complete Time: 21:29 [facility] 02/14 20: Order name: EKG - Nurse/Tech; Complete Time: 21:30 [facility] 02/14 20: Order name: IV Saline Lock; Complete Time: 21:30 [facility] 02/14 20: Order name: Labs collected and sent; Complete Time: 21:30 [facility] 02/14 20: Order name: O2 Per Protocol; Complete Time: 21:30 [facility] 02/14 20: Order name: O2 Sat Monitoring; Complete Time: 21:30 [facility] Administered Medications: 22:12 Not Given (pt left AMA): NS 0.9% 1000 ml IV at 125 ml/hr continuous jd3 22:12 Not Given (pt left AMA): NS 0.9% 500 ml IV at bolus once jd3 22:12 Not Given (pt left AMA): Aspirin Chewable Tablet 162 mg PO once jd3 22:12 Not Given (pt left AMA): Zofran 4 mg IVP once; over 2 minutes jd3 22:12 Not Given (pt left AMA): morphine 4 mg IVP once; RASS on ADMIN: Combtv4, Very Agttd3, jd3 Agttd2, Rstlss1, AlertClm0, Drwsy-1, Lt Sdtn-2, Mod Sdtn-3, Dp Sdtn-4, UnArsble-5 Disposition: 02/14/19 22:10 Patient has left against medical advice. Impression: Chest pain, unspecified, Type 2 diabetes mellitus, Dyspnea. - Patients states they are going to Home. - Condition is Undetermined. - Discharge Instructions: Nonspecific Chest Pain, Type 2 Diabetes Mellitus, Diagnosis, Adult, Nonspecific Chest Pain, [id number], Aspirin and Your Heart, Type 2 Diabetes Mellitus, Diagnosis, Adult, [id number]. Follow up: Private Physician; When: Upon discharge from the Emergency Department; Reason: Recheck today's complaints, Continuance of care, Re-evaluation by your physician. - Problem is new. - Symptoms have improved. Signatures: Dispatcher [employer] Tessa Spencer RN RN aj1 Quita Alex RN Wang Auguste MD MD cha Davies, Jonathon, RN RN jd3 Corrections: (The following items were deleted from the chart) 21:22 20:28 Hospitalization Ordered by True Vazquez MD for Observation. Preliminary diagnosis is Chest pain, unspecified; Type 1 diabetes mellitus; Essential (primary) hypertension. Bed requested for Telemetry/MedSurg (observation). Status is Observation. Condition is Stable. Problem is new. Symptoms have improved. UTI on Admission? No. ernie 22:09 21:22 02/14/2019 20:28 Hospitalization Ordered by True Vazquez MD for Observation. ernie Preliminary diagnosis is Chest pain, unspecified; Type 1 diabetes mellitus; Essential (primary) hypertension. Bed requested for Telemetry/MedSurg (observation). Status is Observation. Condition is Stable. Problem is new. Symptoms have improved. UTI on Admission? No. mw 22:12 22:10 02/14/2019 22:10 Patients has left against medical advice. Impression: Chest jd3 pain, unspecified; Type 2 diabetes mellitus; Dyspnea. Patient states they are going to Home. Condition is Undetermined. Follow up: Private Physician; When: Upon discharge from the Emergency Department; Reason: Recheck today's complaints, Continuance of care, Re-evaluation by your physician. Problem is new. Symptoms have improved. ernie
--- NOTE | 2019-02-14 20:56 | RAD REPORT ---
EXAM DESCRIPTION: Justin Single View02/14/2019 8:34 pm CLINICAL HISTORY: Chest pain COMPARISON: November 2018 FINDINGS: Lungs appear grossly clear. Heart is normal size
[2019-02-14 22:05] LABS: Absolute Lymphocytes (CBC) 3.1 K/uL (0.7-4.9); Basophils % 0.9 % (0-1.3); Hematocrit 42.5 % (36.0-45.0); Lymphocytes % 34.2 % (15.3-44.8); MPV 8.7 fL (7.6-11.3); RBC Red Blood Cell Count 4.89 M/uL (3.86-4.86)
[2019-02-14 22:20] LABS: ALT/SGPT 22 U/L (12-78); AST/SGOT 12 U/L (15-37); Albumin 3.8 g/dL (3.4-5.0); Alkaline Phosphatase 122 U/L (45-117); BUN Blood Urea Nitrogen 16 mg/dL (7-18); Bicarbonate 24 mmol/L (21-32); Bilirubin Direct < 0.1 mg/dL (0-0.2); Bilirubin Total 0.1 mg/dL (0.2-1.0); Glucose Level 106 mg/dL (74-106); Lipase 242 U/L (73-393); Magnesium 2.5 mg/dL (1.8-2.4); NT PRO-BNP 80 pg/mL (<125); Potassium 4.3 mmol/L (3.5-5.1); Sodium Level 141 mmol/L (136-145); Troponin (Emerg Dept Use Only) < 0.02 ng/mL (0.0-0.045)
[2019-02-14 22:36] VITALS: BP 122/64; O2SAT 97
--- NOTE | 2019-02-16 20:50 | EKG ---
Test Date: 2019-02-14 Test Time: 20:50:11 Dominatrix: DEVAN MEASUREMENT RESULTS: Intervals: Rate: 86 NH: 166 QRSD: 104 QT: 418 QTc: 500 [place]: P: 70 NH: 166 QRS: -16 T: 107 INTERPRETIVE STATEMENTS: Sinus rhythm with occasional premature ventricular complexes Biatrial enlargement Left ventricular hypertrophy T wave abnormality, consider lateral ischemia Prolonged QT Abnormal ECG Compared to ECG 12/12/2018 16:07:49 Ventricular premature complex(es) now present T-wave abnormality now present Possible ischemia now present Atrial premature complex(es) no longer present Electronically Signed On 02-16-19 20:47:02 [employer] by Giovanni Brewster
== END 2019-02-14 22:12 | disposition left against medical advice (07) ==
LOC: ER 19:19 → ERHOLD 21:10 → UNDOADMOB 21:10 → UNDODISOB 23:43
DX: R07.9 Chest pain, unspecified (principal); E11.9 Type 2 diabetes mellitus without complications; R06.00 Dyspnea, unspecified; Z88.2 Allergy status to sulfonamides; E78.5 Hyperlipidemia, unspecified; F41.8 Other specified anxiety disorders
CPT/HCPCS: 36415; 71045; 80048; 80076; 83690; 83735; 83880; 84484; 85025; 85610; 93005; 99284

== ENCOUNTER 2019-03-25 04:09 | Emergency (ER) | payer OTHER ==
--- OUTSIDE RECORDS SUMMARY | 2019-03-25 04:11 | XMS REPORT ---
:1965 [facility] Address [address] [place] [address] [address] [place] [address] Care Team Providers Name Role Phone Unavailable Unavailable Unavailable Problems This patient has no known problems. Allergies, Adverse Reactions, Alerts This patient has no known allergies or adverse reactions. Medications This patient has no known medications.
--- OUTSIDE RECORDS SUMMARY | 2019-03-25 04:12 | XMS REPORT ---
[...] End Status Dosage System Date Date Oxcarbazepine [facility] 19181797185 300 MG Orally Active 1 tablet Twice a day Cyclobenzaprine ND 15139868613 10 MG Orally Active 1 tablet HCl Three times a as needed day Plavix ND 43400596969 75 MG Orally Active 1 tablet Once a day Metformin HCl ND 12507179361 1000 MG Orally Active 1 tablet Twice a day with a meal Alprazolam ND 94528963879 2 MG Orally Active 1 tablet Twice a day Quetiapine ND 45348478727 100 MG Orally Active 1 tablet Fumarate Once a day Diclofenac Sodium [facility] [address]-88 100 MG Orally Active 1 tablet Once a day with food or milk Amoxicillin-Pot ND 43751655720 875-125 MG Jan 21Jan Active 1 tablet Clavulanate Orally every 2018 07, 12 hrs 2019 Nexium ND 35788575235 40 MG Orally Active 1 capsule Once a day Simvastatin ND 59906823599 20 MG Orally Dec 30, Active 1 tablet Once a day 2017 in the evening Duloxetine HCl [facility] 33000090944 30 MG Orally Active 1 capsule Once a day Hydrocodone-Acetam [facility] [address]-57 7.5-500 MG Active as inophen Orally directed Amlodipine [facility] 41010659141 10 MG Orally Active 1 tablet Besylate Once a day Results No Known Results Summary Purpose eClinicalWorks Submission
--- OUTSIDE RECORDS SUMMARY | 2019-03-25 04:12 | XMS REPORT ---
[...] Status Dosage System Date Date Amlodipine ND 77503712988 10 MG Orally Active 1 tablet Besylate Once a day Cyclobenzaprine ND 24024028157 10 MG Orally Active 1 tablet HCl Three times a as needed day Simvastatin ND 80038987998 20 MG Orally Active 1 tablet Once a day in the evening Metformin HCl ND 83417196869 1000 MG Orally Active 1 tablet Twice a day with a meal Alprazolam ND 20091501919 2 MG Orally Active 1 tablet Twice a day Diclofenac Sodium [facility] [address]-58 100 MG Orally Active 1 tablet Once a day with food or milk Oxcarbazepine [facility] 70965950649 300 MG Orally Active 1 tablet Twice a day Linzess [facility] 26655045470 290 MCG Orally Feb 05April Active 1 capsule Once a day 2018 11, at least 2020 30 minutes before the first meal of the day on an empty stomach Plavix [facility] 02716191855 75 MG Orally Active 1 tablet Once a day Nexium [facility] 21823779287 40 MG Orally Active 1 capsule Once a day Duloxetine HCl [facility] 04677189187 30 MG Orally Active 1 capsule Once a day Hydrocodone-Acetam [facility] [address]-05 7.5-500 MG Active as inophen Orally directed Quetiapine [facility] 46308808037 100 MG Orally Active 1 tablet Fumarate Once a day Results No Known Results Summary Purpose eClinicalWorks Submission
--- OUTSIDE RECORDS SUMMARY | 2019-03-25 04:13 | XMS REPORT ---
:1965 Author Organization eClinicalWorks Care Team Providers Name Role Phone Long Sullivan Provider Role Unavailable Allergies, Adverse Reactions, Alerts [...] without long-term current use of insulin Assessment Lipoma of left lower extremity D17.24 Active Assessment Synovial cyst of popliteal space M71.22 Active [Razo], left knee Assessment Acute pain of left knee M25.562 Active Problem Mixed hyperlipidemia E78.2 Active Assessment Primary osteoarthritis of left knee M17.12 Active Problem Seasonal allergies J30.2 Active Medications Medication Code Code Instructions Start End Status Dosage System Date Date Diclofenac Sodium [facility] [address]-57 100 MG Orally Active 1 tablet Once a day with food or milk Simvastatin [facility] 30551053594 20 MG Orally Active 1 tablet Once a day in the evening Gabapentin [facility] [address]-74 Active not defined Diltiazem HCl ER [facility] [address]-90 Active not Coated Beads defined Oxcarbazepine [facility] 97677376510 300 MG Orally Active 1 tablet Twice a day Hydrocodone-Acetam [facility] [address]-97 7.5-500 MG Active as inophen Orally directed Nexium [facility] 18750115705 40 MG Orally Active 1 capsule Once a day Metformin HCl [facility] 35724891995 1000 MG Orally Active 1 tablet Twice a day with a meal Amitiza [facility] 81482693985 24 MCG Orally Dec 20, Active 1 capsule Twice a day 2018 with food and water Amoxicillin-Pot [facility] [address]-39 Active not Clavulanate defined Meloxicam [facility] 16353575435 7.5 MG Orally Feb 09Feb Active 1 tablet Once a day 2018 Quetiapine [facility] 73471642650 100 MG Orally Active 1 tablet Fumarate Once a day Cyclobenzaprine [facility] 84038769743 10 MG Orally Active 1 tablet HCl Three times a as needed day Duloxetine HCl [facility] 02807463388 30 MG Orally Active 1 capsule Once a day Plavix [facility] 55985065868 75 MG Orally Active 1 tablet Once a day Results No Known Results Summary Purpose eClinicalWorks Submission
--- OUTSIDE RECORDS SUMMARY | 2019-03-25 04:13 | XMS REPORT ---
[...] End Status Dosage System Date Date Gabapentin [facility] [address]-34 Active not defined Linzess [facility] 60641417523 290 MCG Orally Feb 05April Active 1 capsule Once a day 2018 at least 2020 30 minutes before the first meal of the day on an empty stomach Oxcarbazepine [facility] 62542385211 300 MG Orally Active 1 tablet Twice a day Quetiapine [facility] 55505340991 100 MG Orally Active 1 tablet Fumarate Once a day Diclofenac Sodium [facility] [address]-90 100 MG Orally Active 1 tablet Once a day with food or milk Plavix [facility] 34912718708 75 MG Orally Active 1 tablet Once a day Cyclobenzaprine [facility] 20181040121 10 MG Orally Active 1 tablet HCl Three times a as needed day Simvastatin [facility] 99079680736 20 MG Orally Active 1 tablet Once a day in the evening Amoxicillin-Pot [facility] [address]-63 Active not Clavulanate defined Alprazolam [facility] 65758260073 2 MG Orally Active 1 tablet Twice a day Amlodipine [facility] 61381237066 10 MG Orally Active 1 tablet Besylate Once a day Hydrocodone-Acetam [facility] [address]-28 7.5-500 MG Active as inophen Orally directed Duloxetine HCl [facility] 37034345932 30 MG Orally Active 1 capsule Once a day Meloxicam [facility] 36351716155 7.5 MG Orally Feb 09Mar 11, Active 1 tablet Once a day 2018 2019 Metformin HCl [facility] 47390181599 1000 MG Orally Active 1 tablet Twice a day with a meal Nexium [facility] 11878620842 40 MG Orally Active 1 capsule Once a day Diltiazem HCl ER [facility] [address]-16 Active not Coated Beads defined Results No Known Results Summary Purpose eClinicalWorks Submission
--- OUTSIDE RECORDS SUMMARY | 2019-03-25 04:13 | XMS REPORT ---
:1965 Author Organization eClinicalWorks Care Team Providers Name Role Phone Long Sullivan Provider Role Unavailable Allergies No Known Allergies Problems Problem Type Condition Code Onset Dates Condition Status Problem Depression with anxiety F41.8 Active Problem HTN (hypertension), benign I10 Active Problem Chronic pain syndrome G89.4 Active Problem Mixed hyperlipidemia E78.2 Active Problem Seasonal [...] without long-term current use of insulin Medications No Known Medications Results No Known Results Summary Purpose eClinicalWorks Submission
--- OUTSIDE RECORDS SUMMARY | 2019-03-25 04:13 | XMS REPORT ---
[...] Medications Results No Known Results Summary Purpose eClinicalPurpleTeal Submission
--- OUTSIDE RECORDS SUMMARY | 2019-03-25 04:13 | XMS REPORT ---
[...] End Date Status Dosage System Date Amitiza [facility] 94480664573 24 MCG Orally Feb 13, Active 1 capsule Twice a day 2018 with food and water Linzess [facility] 65309065526 290 MCG Orally Feb 05April Inactive 1 capsule Once a day 2018 at least 30 minutes before the first meal of the day on an empty stomach Results No Known Results Summary Purpose eClinicalWorks Submission
[2019-03-25 04:41] LABS: Absolute Lymphocytes (CBC) 2.2 K/uL (0.7-4.9); Basophils % 0.5 % (0-1.3); Hematocrit 37.9 % (36.0-45.0); Lymphocytes % 29.2 % (15.3-44.8); MPV 8.9 fL (7.6-11.3); RBC Red Blood Cell Count 4.42 M/uL (3.86-4.86)
[2019-03-25 04:50] LABS: Protime INR 1.04
[2019-03-25] MEDS ORDERED: KETOROLAC 30 MG/ML INJ ONE (04:56)
[2019-03-25] MEDS ORDERED: ONDANSETRON 4 MG (ODT) TAB ONE (04:56)
[2019-03-25 04:57] LABS: ALT/SGPT 30 U/L (12-78); AST/SGOT 16 U/L (15-37); Alkaline Phosphatase 114 U/L (45-117); BUN Blood Urea Nitrogen 10 mg/dL (7-18); Bicarbonate 26 mmol/L (21-32); Bilirubin Direct 0.1 mg/dL (0-0.2); Bilirubin Total 0.2 mg/dL (0.2-1.0); Glucose Level 110 mg/dL (74-106); Magnesium 2.1 mg/dL (1.8-2.4); NT PRO-BNP 223 pg/mL (<125); Potassium 3.9 mmol/L (3.5-5.1); Protein, Total 8.2 g/dL (6.4-8.2); Sodium Level 143 mmol/L (136-145); Troponin (Emerg Dept Use Only) < 0.02 ng/mL (0.0-0.045)
--- NOTE | 2019-03-25 06:33 | EKG ---
Test Date: 2019-03-25 Test Time: 04:15:51 [employer] Brusher: MERRILL MEASUREMENT RESULTS: Intervals: Rate: 72 [place]: 178 QRSD: 106 QT: 436 QTc: 477 [place]: P: 76 [place]: 178 QRS: -7 T: 95 INTERPRETIVE STATEMENTS: Normal sinus rhythm LVH with secondary repolarization changes Prolonged QT Abnormal ECG Compared to ECG 02/14/2019 20:50:11 Atrial premature complex(es) no longer present Electronically Signed On 03-25-19 06:33:23 [employer]GRAM[employer] by Jamal Alvarado
--- NOTE | 2019-03-25 06:50 | EDPHYS ---
Physician Documentation [facility] Name: Che Helton Age: 53 yrs Sex: Female : 1965 Arrival Date: 03/25/2019 Time: 04:12 Bed 23 Private MD: ED Physician Rene Blank HPI: 03/25 04:48 This 53 yrs old Black Female presents to ER via EMS with complaints of Chest Pain > 30 tw4 y/o. 04:48 The patient or guardian reports chest pain that is located primarily in the anterior tw4 chest wall. Onset: today. The pain does not radiate. Associated signs and symptoms: Pertinent positives: headache, Pertinent negatives: None. The chest pain is described as dull. Duration: The patient or guardian reports multiple episodes, that are intermittent. Modifying factors: The symptoms are alleviated by nothing. the symptoms are aggravated by nothing. Severity of pain: At its worst the pain was moderate in the emergency department the pain has improved. The patient has experienced similar episodes in the past, chronically. DEVELOPMENT ENG: 06:59 LMP N/A - Post-menopause ch Historical: - Allergies: 04:16 Sulfa (Sulfonamide Antibiotics); ch - Home Meds: 04:16 amlodipine 25 mg tab 1 tab once daily [Active]; aspirin 81 mg Oral chew 1 tab once ch daily [Active]; atorvastatin Oral nightly [Active]; Cymbalta 30mg in the morning, 60mg at night Oral [Active]; metformin 500 mg Oral tab 1 tab 2 times per day [Active]; metoprolol tartrate 25 mg Oral tab 1 tab once daily [Active]; multivitamin with minerals Oral daily [Active]; Nitrostat 0.4 mg SL subl 1 tab every 5 minutes [Active]; [place] Oral as needed [Active]; Plavix 75 mg Oral tab 1 tab once daily [Active]; Seroquel 25 mg Oral tab 1 tab nightly [Active]; - PMHx: 04:16 ADD/ADHD; Anxiety; Depression; Diabetes - NIDDM; Hyperlipidemia; Hypertension; ch Myocardial infarction; stroke; Bipolar disorder; - Immunization history:: Adult Immunizations up to date, Flu vaccine is up to date. - Coronavirus screen:: The patient has NOT traveled to [place], [place], or [place] in the past 14 days. The patient has NOT had contact with known/suspected case of Coronavirus?. - Social history:: Smoking status: Patient reports the use of cigarette tobacco products, Patient/guardian denies using alcohol, street drugs. - Ebola Screening: : Patient negative for fever greater than or equal to 101.5 degrees Fahrenheit, and additional compatible Ebola Virus Disease symptoms Patient denies exposure to infectious person Patient denies travel to an Ebola-affected area in the 21 days before illness onset No symptoms or risks identified at this time. ROS: 04:48 Constitutional: Negative for fever, chills, and weight loss, Eyes: Negative for injury, tw4 pain, redness, and discharge, Neck: Negative for injury, pain, and swelling, Respiratory: Negative for shortness of breath, cough, wheezing, and pleuritic chest pain, Abdomen/GI: Negative for abdominal pain, nausea, vomiting, diarrhea, and constipation, : Negative for injury, bleeding, discharge, and swelling, MS/Extremity: Negative for injury and deformity, Skin: Negative for injury, rash, and discoloration. 04:48 Cardiovascular: Positive for chest pain, Negative for edema, orthopnea, palpitations, paroxysmal nocturnal dyspnea. 04:48 Neuro: Positive for headache, Negative for altered mental status, dizziness, gait disturbance, hearing loss, loss of consciousness, numbness, seizure activity, speech changes, syncope, near syncope, tingling, tinnitus, tremor, visual changes. Exam: 04:48 Constitutional: This is a well developed, well nourished patient who is awake, alert, tw4 and in no acute distress. Head/Face: Normocephalic, atraumatic. Chest/axilla: Normal chest wall appearance and motion. Nontender with no deformity. No lesions are appreciated. Cardiovascular: Regular rate and rhythm with a normal S1 and S2. No gallops, murmurs, or rubs. Normal PMI, no JVD. No pulse deficits. Respiratory: Lungs have equal breath sounds bilaterally, clear to auscultation and percussion. No rales, rhonchi or wheezes noted. No increased work of breathing, no retractions or nasal flaring. Abdomen/GI: Soft, non-tender, with normal bowel sounds. No distension or tympany. No guarding or rebound. No evidence of tenderness throughout. Back: No spinal tenderness. No costovertebral tenderness. Full range of motion. MS/ Extremity: Pulses equal, no cyanosis. Neurovascular intact. Full, normal range of motion. Neuro: Awake and alert, GCS 15, oriented to person, place, time, and situation. Cranial nerves II-XII grossly intact. Motor strength 5/5 in all extremities. Sensory grossly intact. Cerebellar exam normal. Normal gait. Vital Signs: 04:16 BP 159 / 90; Pulse 78; Resp 16; Temp 98.8; Pulse Ox 99% on R/A; Pain 10/10; ch 05:06 BP 170 / 86; Pulse 71; Resp 16; Pulse Ox 98% on R/A; Pain 8/10; ch 05:32 BP 176 / 111; Pulse 89; Resp 20; Pulse Ox 95% on R/A; Pain 10/10; ch 06:11 BP 151 / 67; Pulse 89; Resp 20; Pulse Ox 100% on R/A; ch 06:53 Temp 98.8(O); ch 06:58 BP 158 / 76; Pulse 90; Resp 16; Temp 98.8; Pulse Ox 99% on R/A; Pain 4/10; ch MDM: 04:17 Patient medically screened. tw4 03/26 05:31 Differential diagnosis: acute pericarditis, coronary artery disease pulmonary embolus, tw4 stable angina, thoracic aortic disection. HEART Score: History: Moderately Suspicious (1), ECG: Non specific repolarization disturbance / LBTB / PM (1), Age: > 45 and < 65 years (1), Risk Factors: 1 or 2 risk factors (1), Troponin: < or = 1 x Normal Limit (0), Total Score = 4. The patient was given aspirin in the Emergency Department. Data reviewed: vital signs, nurses notes. Data interpreted: Pulse oximetry: Interpretation: normal. Test interpretation: by ED physician or midlevel provider: ECG, plain radiologic studies. Counseling: I had a detailed discussion with the patient and/or guardian regarding: the historical points, exam findings, and any diagnostic results supporting the discharge/admit diagnosis, lab results, radiology results. Medication response: Toradol relieved patient's pain. The symptoms have resolved. Response to treatment: and as a result, I will discharge patient. Special discussion: Based on the patient's history, exam, and Dx evaluation, there is no indication for emergent intervention or inpatient Tx. It is understood by the patient/guardian that if the Sx's persist or worsen they need to return immediately for re-evaluation. I discussed with the patient/guardian in detail that at this point there is no indication for admission to the hospital. It is understood, however, that if the symptoms persist or worsen the patient needs to return immediately for re-evaluation. ED course: repeat troponin #2 negative. 03/25 04:31 Order name: Basic Metabolic Panel in 03/25 04:31 Order name: CBC with Diff in 03/25 04:31 Order name: LFT's in 03/25 04:31 Order name: Magnesium in 03/25 04:31 Order name: NT PRO-BNP in 03/25 04:31 Order name: PT-INR in 03/25 04:31 Order name: Troponin (emerg Dept Use Only) in 03/25 04:31 Order name: XRAY Chest (1 view) in 03/25 04:31 Order name: EKG; Complete Time: 04:32 in 03/25 06:14 Order name: Troponin (emerg Dept Use Only) 03/25 04:31 Order name: Cardiac monitoring; Complete Time: 04:32 in 03/25 04:31 Order name: EKG - Nurse/Tech; Complete Time: 04:31 in 03/25 04:31 Order name: Labs collected and sent; Complete Time: 04:31 in 03/25 04:31 Order name: O2 Per Protocol; Complete Time: 04:31 in 03/25 04:31 Order name: O2 Sat Monitoring; Complete Time: 04:31 mt EC/29 04:48 Rate is 72 beats/min. Rhythm is regular. QRS [place] is Normal. OK interval is normal. QRS tw4 interval is normal. QT interval is normal. No Q waves. T waves are Inverted in leads I, aVL. No ST changes noted. Clinical impression: NSR w/ Non-specific ST/T Changes, Abnormal EKG without significant change, and No change from prior ECG. Interpreted by me. Reviewed by me. Administered Medications: 04:55 Drug: Zofran 4 mg Route: PO; ch 05:50 Follow up: Response: No adverse reaction ch 04:55 Drug: TORadol 30 mg Route: IM; Site: right vastus lateralis; ch 05:50 Follow up: Response: No adverse reaction; No change in condition 05:02 Not Given (no IV access): Zofran 4 mg IVP once; over 2 minutes 05:03 Not Given (no IV access): TORadol 30 mg IVP once Disposition: 03/25/19 06:49 Discharged to Home. Impression: Other chest pain, Migraine with aura, not intractable. - Condition is Stable. - Discharge Instructions: Migraine Headache, Pain Without a Known Cause, Nonspecific Chest Pain, [id number]. - Prescriptions for Fiorinal 50- 325-40 mg Oral Capsule - take 1 capsule by ORAL route every 4 hours As needed - not to exceed 6 capsules per day; 20 capsule. Imitrex 25 mg Oral Tablet - take 1 tablet by ORAL route one time - x 1 dose with fluids as early as possible after the onset of a migraine attack; if headache returns, the dose may be repeated after 2 hours, not to exceed a total daily dose of 8 tablets;. Zofran 4 mg Oral Tablet - take 1 tablet by ORAL route every 12 hours As needed; 6 tablet. - Family Work Release, SBAR form, Medication Reconciliation Form, Thank You Letter, Antibiotic Education, Prescription Opioid Use form. - Follow up: Private Physician; When: Upon discharge from the Emergency Department; Reason: Recheck today's complaints, Continuance of care. - Problem is new. - Symptoms have improved. Signatures: Dispatcher [employer] EDSena Borges, JULIEN Silva, [place] Rene Horner MD MD tw4 Corrections: (The following items were deleted from the chart) 06:59 06:49 03/25/2019 06:49 Discharged to Home. Impression: Other chest pain; Migraine with ch aura, not intractable. Condition is Stable. Discharge Instructions: Migraine Headache, Pain Without a Known Cause, Nonspecific Chest Pain, [id number]. Prescriptions for Fiorinal 50-325-40 mg Oral Capsule - take 1 capsule by ORAL route every 4 hours As needed - not to exceed 6 capsules per day; 20 capsule, Imitrex 25 mg Oral Tablet - take 1 tablet by ORAL route one time - x 1 dose with fluids as early as possible after the onset of a migraine attack; if headache returns, the dose may be repeated after 2 hours, not to exceed a total daily dose of 8 tablets;, Zofran 4 mg Oral Tablet - take 1 tablet by ORAL route every 12 hours As needed; 6 tablet. and Forms are SBAR form, Medication Reconciliation Form, Thank You Letter, Antibiotic Education, Prescription Opioid Use. Follow up: Private Physician; When: Upon discharge from the Emergency Department; Reason: Recheck today's complaints, Continuance of care. Problem is new. Symptoms have improved. tw4
--- NOTE | 2019-03-25 06:50 | ER ---
Nurse's Notes [facility] Name: Che Helton Age: 53 yrs Sex: Female : 1965 Arrival Date: 03/25/2019 Time: 04:12 Bed 23 Private MD: Diagnosis: Other chest pain;Migraine with aura, not intractable Presentation: 03/25 04:12 Presenting complaint: Patient states: headache for two days, tonight having chest ch pains. has had two NM before. Transition of care: patient was not received from another setting of care. Onset of symptoms was March 23, 2019. Risk Assessment: Do you want to hurt yourself or someone else? Patient reports no desire to harm self or others. Initial Sepsis Screen: Does the patient meet any 2 criteria? No. Patient's initial sepsis screen is negative. Does the patient have a suspected source of infection? No. Patient's initial sepsis screen is negative. Care prior to arrival: None. 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: 06:59 LMP N/A - Post-menopause Historical: - Allergies: 04:16 Sulfa (Sulfonamide Antibiotics); ch - Home Meds: 04:16 amlodipine 25 mg tab 1 tab once daily [Active]; aspirin 81 mg Oral chew 1 tab once ch daily [Active]; atorvastatin Oral nightly [Active]; Cymbalta 30mg in the morning, 60mg at night Oral [Active]; metformin 500 mg Oral tab 1 tab 2 times per day [Active]; metoprolol tartrate 25 mg Oral tab 1 tab once daily [Active]; multivitamin with minerals Oral daily [Active]; Nitrostat 0.4 mg SL subl 1 tab every 5 minutes [Active]; [place] Oral as needed [Active]; Plavix 75 mg Oral tab 1 tab once daily [Active]; Seroquel 25 mg Oral tab 1 tab nightly [Active]; - PMHx: 04:16 ADD/ADHD; Anxiety; Depression; Diabetes - NIDDM; Hyperlipidemia; Hypertension; ch Myocardial infarction; stroke; Bipolar disorder; - Immunization history:: Adult Immunizations up to date, Flu vaccine is up to date. - Coronavirus screen:: The patient has NOT traveled to [place], [place], or [place] in the past 14 days. The patient has NOT had contact with known/suspected case of Coronavirus?. - Social history:: Smoking status: Patient reports the use of cigarette tobacco products, Patient/guardian denies using alcohol, street drugs. - Ebola Screening: : Patient negative for fever greater than or equal to 101.5 degrees Fahrenheit, and additional compatible Ebola Virus Disease symptoms Patient denies exposure to infectious person Patient denies travel to an Ebola-affected area in the 21 days before illness onset No symptoms or risks identified at this time. Screenin:06 Abuse screen: Denies threats or abuse. Denies injuries from another. Nutritional ch screening: No deficits noted. Tuberculosis screening: No symptoms or risk factors identified. Fall Risk None identified. Assessment: 05:06 Reassessment: Patient appears in no apparent distress at this time. Patient and/or ch family updated on plan of care and expected duration. Pain level reassessed. Patient is alert, oriented x 3, equal unlabored respirations, skin warm/dry/pink. General: Appears in no apparent distress. uncomfortable, Behavior is calm, cooperative, appropriate for age. Pain: Complains of pain in head and chest Pain does not radiate. Pain currently is 8 out of 10 on a pain scale. Pain began gradually, 2-3 days ago. Neuro: No deficits noted. Level of Consciousness is awake, alert, obeys commands, Oriented to person, place, time, situation, Coining Press Operator are equal bilaterally Moves all extremities. Full function Speech is normal, Facial symmetry appears normal, Facial symmetry: tongue is midline, Pupils are PERRLA, Reports headache. Cardiovascular: Heart tones S1 S2 present Capillary refill < 3 seconds in bilateral fingers toes Clubbing of nail beds is absent Patient's skin is warm and dry. Pulses are all present. Edema is absent. Rhythm is sinus rhythm Chest pain is described as Pain is 7 out of 10 on a pain scale. began 1 day ago. Respiratory: Airway is patent Respiratory effort is even, unlabored, Breath sounds are clear bilaterally. GI: No signs and/or symptoms were reported involving the gastrointestinal system. Abdomen is round obese. : No signs and/or symptoms were reported regarding the genitourinary system. Derm: Skin is intact, Skin is dry, Skin is normal, black. Musculoskeletal: No signs and/or symptoms reported regarding the musculoskeletal system. 05:32 Reassessment: Patient appears in no apparent distress at this time. No changes from previously documented assessment. Patient and/or family updated on plan of care and expected duration. Pain level reassessed. pt states she feels the same. 06:11 Reassessment: Patient appears in no apparent distress at this time. ch 06:29 Reassessment: Patient appears in no apparent distress at this time. repeat troponin ch drawn now. pt verb understanding of wait for results. Vital Signs: 04:16 BP 159 / 90; Pulse 78; Resp 16; Temp 98.8; Pulse Ox 99% on R/A; Pain 10/10; ch 05:06 BP 170 / 86; Pulse 71; Resp 16; Pulse Ox 98% on R/A; Pain 8/10; ch 05:32 BP 176 / 111; Pulse 89; Resp 20; Pulse Ox 95% on R/A; Pain 10/10; ch 06:11 BP 151 / 67; Pulse 89; Resp 20; Pulse Ox 100% on R/A; ch 06:53 Temp 98.8(O); ch 06:58 BP 158 / 76; Pulse 90; Resp 16; Temp 98.8; Pulse Ox 99% on R/A; Pain 4/10; ch ED Course: 04:12 Patient arrived in ED. ch 04:13 Triage completed. ch 04:16 Rene Blank MD is Attending Physician. tw4 04:20 Arm band placed on left wrist. Patient placed in an exam room, on a stretcher, on patient monitor, on pulse oximetry. EKG completed in triage. Results shown to MD. 04:30 Missed attempt(s): 20 gauge in left antecubital area. mt 04:30 EKG done, by ED staff, reviewed by Rene Blank MD. mt 04:34 No provider procedures requiring assistance completed. Missed attempt(s): 22 gauge in left antecubital area. 04:45 Missed attempt(s): 24 gauge in right forearm. antecubital area. Bleeding controlled, band aid applied, catheter tip intact. 04:45 Patient maintains SpO2 saturation greater than 95% on room air. ch 04:49 Sena Beck, RN is Primary Nurse. ch 05:06 Patient has correct armband on for positive identification. Bed in low position. Call light in reach. Side rails up X2. Adult w/ patient. bus driver/monitor on. Pulse ox on. NIBP on. Warm blanket given. Pillow given. 05:14 XRAY Chest (1 view) In Process Unspecified. EDMS 06:29 Repeat lab(s) drawn. by me, sent to lab. Inserted saline lock: 24 gauge in right hand, ch using aseptic technique. Blood collected. 06:58 No apparent distress. Resting quietly. ch 06:58 IV discontinued, intact, bleeding controlled, No redness/swelling at site. Pressure ch dressing applied. Administered Medications: 04:55 Drug: Zofran 4 mg Route: PO; ch 05:50 Follow up: Response: No adverse reaction ch 04:55 Drug: TORadol 30 mg Route: IM; Site: right vastus lateralis; ch 05:50 Follow up: Response: No adverse reaction; No change in condition ch 05:02 Not Given (no IV access): Zofran 4 mg IVP once; over 2 minutes ch 05:03 Not Given (no IV access): TORadol 30 mg IVP once ch Outcome: 06:49 Discharge ordered by MD. abbott 06:58 Discharged to home via wheelchair, with family. 06:58 Condition: stable 06:58 Discharge instructions given to patient, family, Instructed on discharge instructions, follow up and referral plans. medication usage, Demonstrated understanding of instructions, follow-up care, medications, Prescriptions given X 3. 06:59 Patient left the ED. Signatures: Dispatcher [employer] Sena Dominguez, Lynn Morrison RN, ch, mt, Terrence, MD MD tw4
[2019-03-25 07:24] VITALS: TEMP 98.8
[2019-03-25 07:29] VITALS: BP 158/76; O2SAT 99
--- NOTE | 2019-03-25 08:00 | RAD REPORT ---
EXAM DESCRIPTION: Justin Single View03/25/2019 5:13 am CLINICAL HISTORY: Chest pain COMPARISON: January 2019 FINDINGS: The upper lobe vessels are prominent indicative of pulmonary venous hypertension The lungs appear clear of acute infiltrate. The heart is borderline enlarged
== END 2019-03-25 06:59 | disposition home or self-care (01) ==
LOC: ER 04:09
DX: G43.109 Migraine with aura, not intractable, without status migrainosus (principal); I10 Essential (primary) hypertension; E11.9 Type 2 diabetes mellitus without complications; E78.5 Hyperlipidemia, unspecified; F31.9 Bipolar disorder, unspecified; F90.9 Attention-deficit hyperactivity disorder, unspecified type; I25.2 Old myocardial infarction; Z79.01 Long term (current) use of anticoagulants; Z79.82 Long term (current) use of aspirin
CPT/HCPCS: 36415; 71045; 80048; 80076; 83735; 83880; 84484; 85025; 85610; 93005; 96372; 99285

== ENCOUNTER 2019-11-14 04:31 | Emergency (ER) | payer OTHER ==
--- OUTSIDE RECORDS SUMMARY | 2019-11-14 04:32 | XMS REPORT | Clinical Summary ---
:1965 Author Organization [facility] Address [address] [place] [address] Care Team Providers Name Role Phone Lynnette Lozano MD Primary Care Provider Allergies Active Allergy Reactions Severity Noted Date Comments Morphine Rash Low Sulfa (Sulfonamide Antibiotics) Rash Low Medications Medication Sig Dispensed Refills Start Date End Date Status amLODIPine (NORVASC) Take 10 mg by mouth 0 Active 10 MG tablet daily. metFORMIN Take 500 mg by 0 Activ e (GLUCOPHAGE) 500 MG mouth 2 (two) times [...] History of gastric surgery 08/31/2015 History of [place] (myocardial infarction) 08/31/2015 H/O section 08/31/2015 Smoking [...] Not on file Results Not on fileafter 11/13/2018 Insurance Payer Benefit Plan / Group Subscriber ID Type Phone A sergio BELLE MEDICAID MEDICAID BELLE xxxxxxxxx Advance Directives For more information, please contact:[address] [phone] Code Status Date Activated Date Inactivated Comments Full Code 09/07/2015 9:59 PM 09/08/2015 3:23 PM This code status was determined by: Patient Full Code 08/30/2015 7:48 PM 09/01/2015 2:01 PM This code status was determined by: Patient
--- OUTSIDE RECORDS SUMMARY | 2019-11-14 04:33 | XMS REPORT | Continuity of Care Document ---
:1965 Author Organization [facility] t Address [address] [place] [address] Care Team Providers Name Role Phone Lynnette Lozano MD Primary Care Physician Srinivasa FRANCISCO S Attending Clinician Han DOTY Attending Clinician Yasmeen DOTY T Attending Clinician Doctor Unassigned, Name Attending Clinician Unavailable Problems Condition Condition Condition Status Onset Resolution Last Treating Co mments Source Name Details Category Date Date Treatment Clinician Date CVA CVA Disease Active [facility] (cerebral (cerebral 09-07 [facility] - vascular vascular 00:00: Medica l accident) accident) 00 Cent er Right-side Right-side Disease Active [facility] d muscle d muscle 08-31kes - weakness weakness 00:00: Medica l 00 Center Aphasia Aphasia Disease Active [facility] 08-31 [facility] Type 2 Type [address] [facility] diabetes diabetes 08-30kes - mellitus mellitus 00:00: Medica l 00 Center HTN HTN Disease Active [facility] (hypertens (hypertens 08-30 [place] kes - ion) ion) 00:00: Medical 00 Center Metabolic Metabolic Disease Active [facility] syndrome syndrome 7-06 [facility] - 00:[facility] Medical 00 Center Morbid Morbid Disease Active [facility] obesity obesity 08-30 [facility] - 00:[facility]: Medical 00 Center History of History of Disease Active [facility] gastric gastric 08-30 [facility] - surgery surgery 00:00: Medical 00 [place] History of History of Disease Active [facility] MT MT 08-30 [facility] - (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 00:00: Pa dical l l 00 Center infarction infarction ) ) H/O H/O Disease Active [facility] 08[facility]30 [facility] - section section 00:00: Medical 00 [place] Smoking Smoking Disease Active [facility] history history 08-30 [facility] - 00:00: Medical 00 [place] Acute CVA Acute CVA Disease Active [facility] (cerebrova (cerebrova 08-29 [place] kes - scular scular 00:00: Medical accident) accident) 00 Cent er Mixed Mixed Diagnosis Active [facility] hyperlipid hyperlipid [place] kes - emia emia [facility] Depression Depression Diagnosis Active [facility] with [facility] Seasonal Seasonal Diagnosis Active [facility] allergies allergies [facility] - Memoria [facility] GERD GERD Diagnosis Active [facility] without without [facility] - esophagiti esophagiti Me moria s s l [facility] Controlled Controlled Problem Active [facility] type 2 type 2 [facility] - diabetes diabetes Memori a mellitus mellitus l without without Outpati complicati complicati en t on, on, Clinics without without long-term long-term current current use of use of insulin insulin History of History of Problem Active [facility] CVA CVA [facility] - (cerebrova (cerebrova Me moria scular scular l accident) accident) Outp ati without without ent residual residual Clinic s deficits deficits HTN HTN Diagnosis Active [facility] (hypertens (hypertens [place] kes - ion), ion), Memoria benign benign l [facility] Chronic Chronic Diagnosis Active [facility] t pain pain [facility] - syndrome syndrome Memori a [facility] Bipolar Bipolar Diagnosis Active [facility] t affective affective [facility] - disorder, disorder, [place] current current l episode episode Outpati depressed, depressed, en t current current Clinics episode episode severity severity unspecifie unspecifie d d Neuropathy Neuropathy Problem Active [facility] - [facility] Outpat[facility] ent Clinics Constipati Constipati Problem Active [facility] on, on, [facility]ukes - unspecifie unspecifie Me moria d d l constipati constipati Ou tpati on type on type ent Clinics Primary Primary Problem Active [facility] osteoarthr osteoarthr [place] kes - itis of itis of [facility] left knee left knee l Outpati ent Clinics Need for Need for Diagnosis Active [facility] influenza influenza Luke s - vaccinatio vaccinatio Me moria n n l Outpati ent Clinics Noncomplia Noncomplia Diagnosis Active [facility] nce nce [facility]ukes - w/medicati w/medicati Me moria on on l treatment treatment Outp ati due to due to ent intermit intermit Clinic s use of use of medication medication Nonintract Nonintract Diagnosis Active [facility] able able [facility] - headache, headache, [place] unspecifie unspecifie l d d Outpati chronicity chronicity en t pattern, pattern, Clinic s unspecifie unspecifie d headache d headache type type Allergies, Adverse Reactions, Alerts Allergy Allergy Status Severity Reaction(s) Onset Inactive Treating Comm ents Source Name Type Date Date Clinician Sulfa Adverse Active Info Not [facility] Reaction Available [facility] Morphine Drug Active Rash [facility] Allergy [facility] Sulfa Drug Active Rash [facility] (Sulfona Allergy [facility] ics) Social History Social Habit Start Date Stop Date Quantity Comments Source Sex Assigned At [facility] Smoking Status Start Date Stop Date Source Never smoker [facility] edical [place] Medications Ordered Filled Start Stop Current Ordering Indication Dosage Frequency Signature Comments Components Source Medication Medication Date Date Medication? Clinician (SIG) Name Name aspirin 81 Yes 81mg QD Take [address] MG EC - by mouth [facility] - tablet 10:46: daily. Medical 19 Center amLODIPine Yes 10mg QD Take [address] (NORVASC) 7- by mouth [facility] - 10 MG 15:50: daily. Medical tablet 02 Center metFORMIN Yes 500mg Take [address] [facility] (GLUCOPHAGE 7-06 mg by [facility]ukes - ) 500 MG 15:50: mouth 2 Medica l tablet 02 (two) Center times daily with breakfast and dinner. DULoxetine Yes 30mg QD Take [address] (CYMBALTA) 7-06 by mouth [facility] - 30 MG 15:50: every Medical capsule 02 morning. [place] DULoxetine Yes 60mg QD Take [address] (CYMBALTA) 7 by mouth [facility] - 60 MG 15:50: nightly. Medical capsule 02 Center Metformin Metformin Yes [place] [address] [facility] HCl HCl [place] with a [facility] - meal Memoria l Outpati ent Clinics Diltiazem Diltiazem Yes [place] TK [address] HCl ER HCl ER [place] D [facility] - Coated Coated Memoria [place] Outpati ent Clinics Oxcarbazepi Oxcarbazepi Yes [place] [address] ne ne [place] [facility] - Memoria l Outpati ent Clinics Duloxetine Duloxetine Yes [place] [address] [facility] HCl HCl [place] [facility] - Memoria l Outpati ent Clinics Sumatriptan Sumatriptan Yes [place] [address] [facility] Succinate Succinate [place] at least 2 Lukes - hours Memoria between l doses as Outpati needed ent Clinics Nexium Nexium Yes [place] [address] [facility] [place] [facility] - Memoria l Outpati ent Clinics Butalbital- Butalbital- Yes [place] [address] [facility] ASA-Caffein ASA-Caffein [place] as needed [facility]ukes - e e Memoria l Outpati ent Clinics Quetiapine Quetiapine Yes [place] [address] [facility] Fumarate Fumarate [place] [facility] - Memoria l Outpati ent Clinics Plavix Plavix Yes [place] 1 tablet [facility] [place] [facility] ent Clinics Hydrocodone Hydrocodone Yes [place] as [facility] -Acetaminop -Acetaminop [place] directed Lukes - hen hen Memoria l Outpati ent Clinics Diclofenac Diclofenac Yes [place] [address] [facility] Sodium Sodium [place] with food [facility]ukes - or milk Memoria l Outpati ent Clinics Ondansetron Ondansetron Yes [place] [address] [facility] [place] on the Lukes - tongue and Memoria allow to l dissolve Outpati ent Clinics Cyclobenzap Cyclobenzap Yes [place] [address] rine HCl rine HCl [place] as needed L ukes - Memoria l Outpati ent Clinics Gabapentin Gabapentin Yes [place] [address] [facility] [place] [facility] - Memoria l Outpati ent Clinics Dyazide Dyazide Yes [place] [address] [place] in the Lukes - morning [facility] l [facility] Amitriptyli Amitriptyli Yes [place] [address] [facility] ne HCl ne HCl [place] at bedtime [place] [facility] Atorvastati Atorvastati Yes [place] [address] [facility] n Calcium n Calcium [place] Lu s - [facility] l [facility] Linzess Linzess Yes [place] [address] [place] at least [facility]ukes - 30 minutes Memoria before the l first meal Outpati of the day ent on an Clinics empty stomach Amitiza Amitiza Yes [place] [address] [place] with food [facility] Alprazolam Alprazolam Yes [place] [address] [facility] [place] [facility]ukes - [facility] Immunizations Ordered Filled Immunization Date Status Comments Sour e Immunization Name Name Flucelvax - Flucelvax - 2019-04-[address] [facility] [address] [facility] - multidose vial multidose vial 00:00:00 [facility] Outpatient Clinics Procedures This patient has no known procedures. Encounters Start End Encounter Admission Attending Care Care Encounter Source Date/Time Date/Time Type Type Clinicians Facility Department ID 2019-11-01 2019-11-01 Emergency Srinivasa RUST [id number] 21:14:00 22:39:00 Jennifer Guevara [id number] [place] [id number] [place] [id number] 2019-08-10 2019-08-10 Refill Han RIMARQUITA [id number] 00:00:00 00:00:00 Cristina Guevara [id number] [place] [id number] Professio [phone] [address] 2019-07-15 2019-07-15 [facility] [id number] 13:15:00 13:15:00 3FLOZ [place] [facility] Family Medicine [facility] 2019-07-14 2019-07-14 Telemedici Han RUST [id number] 07:59:51 08:19:51 ne Visit Cristina Guevara [id number] [place] [id number] Professio [phone] [facility]9 [facility] 2019-06-25 2019-06-25 Telephone [facility] [id number] 00:00:00 00:00:00 Cristina Guevara [id number] [place] [id number] Professio [phone] [address] 2019-06-24 2019-06-24 [facility] [id number] 09:31:59 09:46:59 ne Visit Jfl Willem Guevara [id number] [place] [id number] Professio [id number] [address] 2019-06-24 2019-06-24 Telephone [facility] [id number] 00:00:00 00:00:00 Cristina Guevara [id number] [place] [id number] Professio [phone] [address] 2019-06-19 2019-06-19 Orders Doctor REDDY [id number] 00:00:00 00:00:00 Only Unassigned, WILLIE [id number] [place] [facility] [id number] [facility] 2019-06-17 2019-06-17 [facility] [id number] 07:59:54 08:29:54 ne Visit Strahil T Ismael [id number] [place] [id number] Professio [id number] [address] 2019-05-11 2019-05-11 Outpatient [place] [id number] CED[facility]IC 15:30:00 15:30:00 t [facility] Clin[facility] 2019-05-04 2019-05-04 Out[place] [id number] [address] 09:30:00 09:30:00 t [facility] - [facility] ent [facility] 2019-04-30 2019-04-30 Refill [facility] [id number] 00:00:00 00:00:00 Fabriziojimenez Ismael [id number] [place] [id number] Profess [id number] [address] 2019-04-27 2019-04-27 [facility] [place] [id number] 15:30:00 15:30:00 t [facility] 2019-04-20 2019-04-20 Telephone [facility] [id number] 00:00:00 00:00:00 Cristina Guevara [id number] [place] [id number] [facility] [phone] [address] 2019-04-16 2019-04-16 Outpatient [facility] [place] [id number] 13:00:00 13:00:00 t [employer] [place] [facility] 2019-04-15 2019-04-15 Office [facility] [id number] 13:55:26 14:36:48 Visit Cristina Guevara [id number] [place] [id number] [facility] [phone] [address] 2019-04-15 2019-04-15 Orders Doctor BLAKELY [id number] 00:00:00 00:00:00 Only Unassigned, WILLIE [id number] [place] [facility] [id number] [facility] 2019-04-08 2019-04-08 [facility] [id number] 16:19:00 16:19:00 t [facility] ent Clinics 2019-04-07 2019-04-07 [facility] [id number] 08:00:00 08:00:00 t [facility] ent [facility] 2019-04-02 2019-04-02 [facility] [id number] 11:30:00 11:30:00 t [facility] 2019-03-31 2019-03-31 [facility] [id number] 16:13:00 16:13:00 t [facility] 2019-03-26 2019-03-26 [facility] [id number] 13:16:00 13:16:00 t [facility] 2019-03-26 2019-03-26 [facility] [id number] 12:59:00 12:59:00 t [facility] Clinic of [facility] 2019-03-05 2019-03-05 [facility] [id number] 08:38:00 08:38:00 t [facility] Clinic of [facility] 2019-03-04 2019-03-04 [facility] [id number] 09:30:00 09:30:00 t [facility] Clinic of [facility] 2019-03-03 2019-03-03 [facility] [id number] 16:25:00 16:25:00 t [facility] Clinic of Clinic of [facility] 2019-02-26 2019-02-26 [facility] [id number] 09:10:00 09:10:00 t [facility] ent Clinics 2019-02-13 2019-02-13 [facility] [id number] 13:36:00 13:36:00 t [facility] 2019-02-11 2019-02-11 [facility] [id number] 11:21:00 11:21:00 t [facility] Clinic of [facility] Clinics 2019-02-09 2019-02-09 [facility] [id number] 14:30:00 14:30:00 t [facility] ent [facility] 2019-02-05 2019-02-05 [facility] [id number] 13:45:00 13:45:00 t [facility] 2019-01-28 2019-01-28 [facility] [id number] 07:54:00 07:54:00 t [facility] ent Clinics 2019-01-26 2019-01-26 [facility] [id number] 15:10:00 15:10:00 [facility] ent [facility] 2019-01-21 2019-01-21 [facility] [id number] 13:00:00 13:00:00 [facility] ent [facility] 2018-12-24 2018-12-24 Refjj Short RUST [id number] 00:00:00 00:00:00 Cristina Guevara [id number] [place] [id number] [facility] [phone] [address] 2018-02-03 2018-02-03 [facility] [id number] 16:06:00 16:06:[address] Luke s - Drive Family Memoria Family Medicine l Medicine Outpati ent Clinics Results This patient has no known results.
--- OUTSIDE RECORDS SUMMARY | 2019-11-14 04:33 | XMS REPORT | Summary of Care ---
:1965 Author Organization [facility] Address [address] [place] [address] Care Team Providers Name Role Phone Ana Unavailable Shanon Traore Primary Care Provider Reason for Visit Reason Comments Refill Request Encounter Details Date Type Department Care Team Description 08/10/2019 Refill [facility] Cardiology- Amrit Short MD Refill Request [address] [facility], [address] [place] [address] [place] [address] [phone] Allergies Active Allergy Reactions Severity Noted Date Comments Sulfa (Sulfonamide Antibiotics) Anaphylaxis 6 documented as of this encounter (statuses as of 08/18/2019) Medications Medication Sig Dispensed Refills Start Date End Date Status aspirin 81 mg chewable Take 81 mg by 0 Active tablet mouth daily. atorvastatin (LIPITOR) Take 40 mg by 0 Active 40 mg tablet mouth at bedtime. DULoxetine (CYMBALTA) Take 30 mg by 0 Active 30 mg capsule mouth daily. metFORMIN (GLUCOPHAGE) Take 500 mg by 0 Active 1,000 mg tablet mouth 2 (two) times daily with meals. gabapentin (NEURONTIN) Take 1 capsule by 90 capsule 0 01/12/20 16 Active 300 mg capsule mouth 3 (three) times daily. Additional information Patient taking differently: 300 mg Oral TIDPRN, Pain (scale 1-3), Pain (scale 4-6), Neuropathy pain, Reported on 12/18/2016 2:03 PM amitriptyline 25 mg Take 25 mg by 0 Active tablet mouth at bedtime as needed for Insomnia. HYDROcodone-acetamino Take 1 tablet by 0 Active phen (NORCO) 10-325 mouth every 6 mg tablet (six) hours as needed for Pain (scale 7-10). QUEtiapine (SEROQUEL) Take 50 mg by 0 Active 50 mg tablet mouth daily. nitroglycerin 0.[address] 1 tablet 1 Bottle 5 04/18/19 Active sublingual under the tongue 19 tabletIndications: every 5 (five) Chest pain, minutes as needed unspecified type for Chest pain. diclofenac 75 mg EC Take 1 tablet by 60 tablet 1 12/25/19 Active tabletIndications: mouth 2 (two) 19 Acute pain of left times daily with knee meals. clopidogreL 75 mg Take 1 tablet by 30 tablet 5 04/30/19 Active tablet mouth daily. 20 diltiazem 360 mg 24 Take 1 capsule by 30 capsule 5 06/25/19 Active hr mouth daily. 20 capsuleIndications: Chest pain, unspecified type triamterene-hydrochlo Take 1 capsule by 90 capsule 0 08/18/19 Active rothiazide 37.5-25 mg mouth every 20 per morning. capsuleIndications: Essential hypertension triamterene-hydrochlo Take 1 capsule by 30 capsule 3 04/15/19 Discontinued rothiazide 37.5-25 mg mouth every 20 020 (Reorder) per morning. capsuleIndications: Essential hypertension documented as of this encounter (statuses as of 08/18/2019) Active Problems Problem Noted Date LEN (obstructive sleep apnea) 07/14/2019 Essential hypertension 03/17/2016 Dyslipidemia 03/17/2016 Coronary-myocardial bridge 03/17/2016 Type 2 diabetes mellitus without complication, without long-term current 03/17/2016 use of insulin Tobacco abuse 03/17/2016 Morbid obesity with body mass index of 40.0-49.9 01/10 Chest pain 01/10/2016 documented as of this encounter (statuses as of 08/18/2019) Resolved Problems Problem Noted Date Resolved Date Obesity (BMI 30-39.9) 02/13/2016 07/02/2018 Morbid obesity with body mass index of 50 or higher 01/11/20 16 07/02/2018 documented as of this encounter (statuses as of 08/18/2019) Social History Tobacco Use Types Packs/Day Years [...] filedocumented in this encounter Plan of Treatment Health Maintenance Due Date Last Done Comments PNEUMOCOCCAL 0-64 YEARS COMBINED 12/02/1971 SERIES (1 of 1 - PPSV23) EYE EXAM 12/02/1975 URINE MICROALBUMIN 12/02/1975 DTaP,Tdap,and Td Vaccines (1 - 1976 Tdap) Depression Screening 1977 FOOT EXAM 12/02/1983 PAP SMEAR 1986 Breast Cancer Screening 2005 (MAMMOGRAM) COLONOSCOPY 12/02/2015 Zoster Recombinant Vaccine 12/02/2015 (SHINGRIX) (1 of 2) HgA1C 07/09/2016 01/10/2016 LDL-C 01/10/2017 01/11/2016 INFLUENZA VACCINE (Season Ended) 2019 CREATININE (SERUM) 12/21/2019 12/20/2018, 07/16/2018, 09/30/2017, Additional history exists documented as of this encounter Implants Implanted Type Area Deli Cutter Slicer Device Shelf Model / Identifier Expiration Date Ser ial / Lot Phalinx Cannulated [facility] [id number] / Implanted: Qty: 1 on 07/22/2018 by Andrew Romero Jr., DPM at [facility] [employer] 0 / [address] Kwire 0[address] [facility] [id number] / Implanted: Qty: 1 on 07/22/2018 by Andrew Romero Jr., DPM at [facility] [employer] 0 / 0 documented as of this encounter Results Not on filedocumented in this encounter Visit Diagnoses Diagnosis Essential hypertension Unspecified essential hypertension documented in this encounter Insurance Payer Benefit Plan / Subscriber ID Effective Dates Phone Addre [facility] xxxxxxxxx 2018-Present Medicaid COMM PLAN - PLUS MANAGED MEDICAID [facility] xxxxxxxxx 2019-Present Medicaid COMM PLAN - MANAGED MEDICAID documented as of this encounter
--- OUTSIDE RECORDS SUMMARY | 2019-11-14 04:33 | XMS REPORT | Summary of Care ---
:1965 Author Organization [facility] - Health Address [address] [place] [id number] Care Team Providers Name Role Phone Ana Unavailable Shanon Traore Primary Care Provider Reason for Visit Reason Comments Abscess right axilla Auth/Cert Status Reason Specialty Diagnoses / Referred By Referred To Procedures Contact Contact Emergency Medicine [facility] Em ergency Dept [address] [place] [address] Fax: Encounter Details Date Type Department Care Team Description 11/01/2019 Emergency [facility]-Emergency Jennifer Bernabe S, PAC Abscess of right Department [address] [facility] [facility] [address] gage (Primary Dx) [address] [place], [place] [address] [address] [address] [phone] [place] [id number] [phone] Allergies Active Allergy Reactions Severity Noted Date Comments Sulfa (Sulfonamide Antibiotics) Anaphylaxis 6 documented as of this encounter (statuses as of 11/01/2019) Medications Medication Sig Dispensed Refills Start Date [...] capsule mouth 3 (three) times daily. Additional Information Patient taking differently: 300 mg Oral TIDPRN, Pain (scale 1-3), Pain (scale 4-6), Neuropathy pain, Reported on 12/18/2016 2:03 PM amitriptyline 25 mg Take 25 mg by mouth 0 Active tablet at bedtime as needed for Insomnia. HYDROcodone-acetaminophe Take 1 tablet by 0 Active n (NORCO) 10-325 mg mouth every 6 (six) tablet hours as needed for Pain (scale 7-10). QUEtiapine (SEROQUEL) 50 Take 50 mg by mouth 0 Active mg tablet daily. nitroglycerin 0.[address] 1 tablet under 1 Bottle 5 04/18/19 19 Active sublingual the tongue every 5 tabletIndications: Chest (five) minutes as pain, unspecified type needed for Chest pain. diclofenac 75 mg EC Take 1 tablet by 60 tablet 1 12/24/2018 Active tabletIndications: Acute mouth 2 (two) times pain of left knee daily with meals. clopidogreL 75 mg tablet Take 1 tablet by 30 tablet 5 04/30/19 20 Active mouth daily. diltiazem 360 mg 24 hr Take 1 capsule by 30 capsule 5 06/25/19 20 Active capsuleIndications: mouth daily. Chest pain, unspecified type triamterene-hydrochlorot Take 1 capsule by 90 capsule 0 2019 Active hiazide 37.5-25 mg per mouth every morning. capsuleIndications: Essential hypertension clindamycin 150 mg Take 3 capsules by 90 capsule 0 11/01/2019 11/11/2019 Active capsuleIndications: mouth 3 (three) Abscess of right axilla times daily for 10 days. documented as of this encounter (statuses as of 11/01/2019) Active Problems Problem Noted Date LEN (obstructive sleep apnea) 07/14/2019 Essential hypertension 03/17/2016 Dyslipidemia 03/17/2016 Coronary-myocardial bridge 03/17/2016 Type 2 diabetes mellitus without complication, without long-term current 03/17/2016 use of insulin Tobacco abuse 03/17/2016 Morbid obesity with body mass index of 40.0-49.9 01/10 Chest pain 01/10/2016 documented as of this encounter (statuses as of 11/01/2019) Resolved Problems Problem Noted Date Resolved Date Obesity (BMI 30-39.9) 02/13/2016 07/02/2018 Morbid obesity with body mass index of 50 or higher 01/11/20 16 07/02/2018 documented as of this encounter (statuses as of 11/01/2019) Social History Tobacco Use Types Packs/Day Years Used Date Current Every Day Smoker Cigarettes 0.25 8 Smokeless Tobacco: Never Used Alcohol Use Drinks/Week oz/Week Comments No 0 Standard drinks or equivalent 0.0 Sex Assigned at Date Recorded Not on file COVID-19 Exposure Response Date Recorded In the last month, have you been in contact with No / Unsure 11/01/2019 9:06 PM CDT someone who was confirmed or suspected to have Coronavirus / COVID-19? documented as of this encounter Last Filed Vital Signs Vital Sign Reading Time Taken Comments Blood Pressure 155/95 11/01/2019 9:11 PM CDT Pulse 93 11/01/2019 9:11 PM CDT Temperature 37.3 C (99.2 F) 11/01/2019 9:11 PM CDT Respiratory Rate 17 11/01/2019 9:11 PM CDT Oxygen Saturation 99% 11/01/2019 9:11 PM CDT Inhaled Oxygen Concentration - - Weight 111.1 kg (245 lb) 11/01/2019 9:11 PM CDT Height 160 cm (5' 3") 11/01/2019 9:11 PM CDT Body Mass Index 43.4 11/01/2019 9:11 PM CDT documented in this encounter Discharge Instructions Jennifer Flower, PAC - 11/01/2019DIAGNOSIS 1. Right armpit abscess NO LIFE-THREATENING FINDINGS ON TODAY'S EXAM. PROCEDURES IN THE ER TODAY: none MEDICATIONS ADMINISTERED IN THE ER TODAY: Clindamycin 450mg [place] 5/325mg YOUR PRESCRIPTIONS AND [id number] MEDICATION RECOMMENDATIONS: Clindamycin 450 mg SPECIAL CARE INSTRUCTIONS: 1. Keep wound clean and dry, and keep it covered until it has completely healed. 2. Clean wound and change bandage 2-3 times a day. 3. Continue taking antibiotics until they are completed. 4. Follow up with a surgeon if you don't feel like the abscess is healing. 5. Return to the ER if your abscess starts getting worse again or if you develop fever or vomiting. FOLLOW-UP RECOMMENDATIONS: RECOMMEND FOLLOW-UP WITH A PRIMARY CARE PROVIDER OR SPECIALIST IN 2-5 DAYS, ESPECIALLY IF NO IMPROVEMENT IN SYMPTOMS. TO FOLLOW-UP WITHIN THE [facility], TRY THESE OPTIONS (CLINIC APPOINTMENTS AVAILABLE ON KRBO-HA-BYET BASIS): 1. SCHEDULE AN APPOINTMENT ONLINE AT [email or web address] 2. OR CALL THE [facility] AT OR 3. OR CALL YOUR [facility] PHYSICIAN'S OFFICE DIRECTLY IF YOU ARE ALREADY AN ESTABLISHED [facility] PATIENT. OR, YOU MAY FOLLOW-UP WITH A PROVIDER OF YOUR CHOICE, SUCH : 1. A PHYSICIAN OF YOUR CHOICE 2. [facility], . LOCATIONS IN [facility] 3. [facility], [address] [place], [place]; [phone] RETURN TO ER FOR WORSENING OF SYMPTOMS. AttachmentsThe following attachments cannot be sent through Care Everywhere. Abscess, Antibiotic Treatment Only ([place] Citizen)documented in this encounter ED Notes Karlie Kapadia RN - 11/01/2019 9:07 PM CDTCC: Pt presents to ER with abscess on right axillary. Pt stated she noticed it Saturday and it has just gotten worse. Painful to touch. Pt denies any drainage or fever. 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 MEDS: See hx LMP: Hysterectomy Tetanus: Not UTD Awake, alert, oriented, resp reg unlabored, skin warm, color appropriate for race, moves all ext without difficulty, amb without assist Appears in no distress documented in this encounter Miscellaneous Notes ED Nurse Note - Melani Ndiaye RN - 11/01/2019 10:28 PM CDTPt given printed and verbal discharge instructions regarding abscess, encouraged hydration, Prescriptions provided Clindamycin Discussed ibuprofen and to take with food to avoid GI distress. Discussed antibiotic therapy and to take until all completed unless adverse reaction occurs - if occurs, discontinue medication and follow up with pcp/seek medical attention Pt verbalized understanding of instructions, pt awake alert oriented, resp reg unlabored, skin w/d, color appropriate for race, moves all ext well,pt encouraged to follow up with PCP. Advised to seek medical attention for new/prolonged/worsening of symptoms, Symptoms stable No adverse reaction to meds given in ER noted upon discharge Awake, alert oriented, resp reg unlabored, skin w/d, pt leaving amb with steady gait, in no apparent distress, documented in this encounter Plan of Treatment Health Maintenance Due Date Last Done Comments PNEUMOCOCCAL 0-64 YEARS COMBINED 12/02/1971 SERIES (1 of 1 - PPSV23) EYE EXAM 12/02/1975 URINE MICROALBUMIN 12/02/1975 Depression Screening 1977 FOOT EXAM 12/02/1983 DTaP,Tdap,and Td Vaccines (1 - 1984 Tdap) PAP SMEAR 1986 Breast Cancer Screening 2005 (MAMMOGRAM) COLON CANCER SCREENING ANNUAL 12/02/2015 FIT/FOBT COLON CANCER SCREENING FIT DNA 12/02/2015 EVERY 3 YEARS COLON CANCER SCREENING 12/02/2015 SIGMOIDOSCOPY EVERY 5 YEARS COLONOSCOPY 12/02/2015 Colorectal Cancer Screening 12/02/2015 Zoster Recombinant Vaccine 12/02/2015 (SHINGRIX) (1 of 2) HgA1C 07/09/2016 01/10/2016 LDL-C 01/10/2017 01/11/2016 INFLUENZA VACCINE (#1) 2019 CREATININE (SERUM) 12/21/2019 12/20/2018, 07/16/2018, 09/30/2017, Additional history exists documented as of this encounter Implants Implanted Type Area 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 Device Shelf Model / Identifier Expiration Date Ser ial / Lot Phalinx Cannulated [facility] [id number] / Implanted: Qty: 1 on 07/22/2018 by Andrew Romero Jr., DPM at [facility] [employer] 0 / 0 Kwire 0.9mm X 102mm [facility] [id number] / Implanted: Qty: 1 on 07/22/2018 by Andrew Romero Jr., DPM at [facility] [employer] 0 / 0 documented as of this encounter Procedures Procedure Name Priority Date/Time Associated Diagnosis Comme nts NOTICE OF PRIVACY Routine 11/01/2019 9:02 PM CDT PRACTICES CONSENT/REFUSAL FOR Routine 11/01/2019 9:02 PM CDT DIAGNOSIS AND TREATMENT documented in this encounter Results Not on filedocumented in this encounter Visit Diagnoses Diagnosis Abscess of right axilla - Primary Cellulitis and abscess of upper arm and forearm documented in this encounter Administered Medications Medication Order MAR Action Action Date Dose Rate Site clindamycin (CLEOCIN HCL) capsule Given 11/01/2019 10:29 PM CDT 450 mg 450 mg 450 mg, Oral, ONCE, 1 dose, 11/01/19 at 2330, THEODORE, Reason for Anti-Infective: Documented Infection, Documented Infection Site: Skin / Soft Tissue, Duration of Therapy: 10 days, Restricted use approved by: ADC PROVIDER HYDROcodone-acetaminophen (NORCO 5) 5-325 Given 2019 10:29 PM CDT 1 tablet mg tablet 1 tablet 1 tablet, Oral, ONCE, 1 dose, 11/01/19 at 2330, THEODORE documented in this encounter Insurance Payer Benefit Plan / Subscriber ID Effective Dates Phone Addre ss Type Group [facility] [id number] 2018-Present Medicaid COMM PLAN - PLUS MANAGED MEDICAID documented as of this encounter
[2019-11-14] MEDS ORDERED: NA CHLORIDE 0.9% 1,000 ML ONE (05:23)
[2019-11-14] MEDS ORDERED: MORPHINE 4 MG/ML SYR ONE (05:23)
[2019-11-14] MEDS ORDERED: ONDANSETRON 4 MG/2 ML VIAL ONE (05:23)
[2019-11-14 05:31] LABS: Absolute Lymphocytes (CBC) 3.2 K/uL (0.7-4.9); Basophils % 0.7 % (0-1.3); Hematocrit 36.5 % (36.0-45.0); Lymphocytes % 41.1 % (15.3-44.8); MPV 8.9 fL (7.6-11.3); RBC Red Blood Cell Count 4.25 M/uL (3.86-4.86)
[2019-11-14 05:50] LABS: ALT/SGPT 35 U/L (12-78); AST/SGOT 23 U/L (15-37); Alkaline Phosphatase 120 U/L (45-117); BUN Blood Urea Nitrogen 18 mg/dL (7-18); Bicarbonate 25 mmol/L (21-32); Bilirubin Direct < 0.1 mg/dL (0-0.2); Bilirubin Total 0.2 mg/dL (0.2-1.0); Glucose Level 96 mg/dL (74-106); Lipase 198 U/L (73-393); Potassium 3.8 mmol/L (3.5-5.1); Protein, Total 8.8 g/dL (6.4-8.2); Sodium Level 142 mmol/L (136-145)
[2019-11-14 06:06] LABS: Urine Blood NEGATIVE (NEG); Urine Glucose NEGATIVE (NEG); Urine Protein NEGATIVE (NEG); Urine Specific Gravity >1.030 (1.005-1.030); Urine pH 5.5 (5.0-7.0)
--- NOTE | 2019-11-14 06:26 | ER ---
[facility]'s [facility] Name: Che Hel[facility] Age: 53 yrs Sex: Female : 1965 Arrival Date: 11/14/2019 Time: 04:32 Bed 17 Private MD: Orlando Burnett Diagnosis: Sciatica;Flank Pain Presentation: 11/13 04:45 Chief complaint: Patient states: low back pain that shoots down her legs that started wh today. Coronavirus screen: Client denies travel out of the [place] in the last 14 days. At this time, the client does not indicate any symptoms associated with coronavirus-19. Ebola Screen: Patient negative for fever greater than or equal to 101.5 degrees Fahrenheit, and additional compatible Ebola Virus Disease symptoms Patient denies exposure to infectious person. Initial Sepsis Screen: Does the patient meet any 2 criteria? No. Patient's initial sepsis screen is negative. Does the patient have a suspected source of infection? No. Patient's initial sepsis screen is negative. Risk Assessment: Do you want to hurt yourself or someone else? Patient reports no desire to harm self or others. Onset of symptoms was November 14, 2019. 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 - Social history:: Smoking status: Patient reports the use of cigarette tobacco products, smokes one-half pack cigarettes per day. Screenin:47 Abuse screen: Denies threats or abuse. Denies injuries from another. Nutritional screening: No deficits noted. Tuberculosis screening: No symptoms or risk factors identified. Fall Risk None identified. Assessment: 04:48 General: Appears in no apparent distress. Behavior is calm, cooperative, appropriate for age. Pain: Complains of pain in low back Pain radiates to legs Pain currently is 9 out of 10 on a pain scale. Quality of pain is described as shooting. Neuro: Level of Consciousness is awake, alert, obeys commands, Oriented to person, place, time, situation, Appropriate for age. Cardiovascular: Capillary refill < 3 seconds. Respiratory: Airway is patent Respiratory effort is even, unlabored, Respiratory pattern is regular, symmetrical. GI: Abdomen is round non-distended. : No signs and/or symptoms were reported regarding the genitourinary system. EENT: No signs and/or symptoms were reported regarding the EENT system. Derm: Skin is intact, is healthy with good turgor, Skin is pink, warm \T\ dry. normal. Musculoskeletal: Circulation, motion, and sensation intact. 06:06 Reassessment: Patient appears in no apparent distress at this time. No changes from previously documented assessment. Patient and/or family updated on plan of care and expected duration. Pain level reassessed. Patient is alert, oriented x 3, equal unlabored respirations, skin warm/dry/pink. Vital Signs: 04:45 BP 117 / 81; Pulse 82; Resp 18; Temp 98.2; Pulse Ox 99% ; Weight 106.59 kg; Height 5 wh ft. 3 in. (160.02 cm); Pain 9/10; 06:07 BP 135 / 70; Pulse 68; Resp 18; Pulse Ox 97% ; wh 04:45 Body Mass Index 41.63 (106.59 kg, 160.02 cm) ED Course: 04:32 Patient arrived in ED. am2 04:32 Orlando Burnett DO is Private Physician. am2 04:38 Tonny Ronquillo MD is Attending Physician. [facility] 04:45 Isa Gray is Primary Nurse. 04:46 Triage completed. 04:48 Patient has correct armband on for positive identification. Bed in low position. Call light in reach. Side rails up X 1. Pulse ox on. NIBP on. 04:49 Arm band placed on right wrist. 05:09 Radiology exam delayed due to ER attempting to start an IV at this time. kw1 05:10 Missed attempt(s): 20 gauge in right antecubital area. Bleeding controlled, band aid wh applied, catheter tip intact. 05:17 Radiology exam delayed due to ER still attempting to start an IV for pain medication. [address] when the patient is ready to be transported. 05:46 CT Abd/Pelvis - Without Contrast In Process Unspecified. EDMS 06:40 No provider procedures requiring assistance completed. IV discontinued, intact, wh bleeding controlled, No redness/swelling at site. Administered Medications: 05:19 Drug: NS 0.9% 1000 ml Route: IV; Rate: 1000 ml; Site: left antecubital; 06:41 Follow up: Response: No adverse reaction; IV Status: Completed infusion 05:21 Drug: morphine 4 mg {Note: RASS 0.} Route: IVP; Site: left antecubital; 05:47 Follow up: Response: No adverse reaction; Pain is decreased; RASS: Alert and Calm (0) 05:23 Drug: Zofran (Ondansetron) 4 mg Route: IVP; Site: left antecubital; 05:47 Follow up: Response: No adverse reaction; Nausea is decreased Outcome: 06:25 Discharge ordered by mh7 06:41 Discharged to home via wheelchair, with family. 06:41 Condition: stable 06:41 Discharge instructions given to patient, Instructed on discharge instructions, follow up and referral plans. medication usage, POC Demonstrated understanding of instructions, follow-up care, medications, POC Prescriptions given X 1. 06:41 Patient left the ED. Signatures: Dispatcher [employer] EDMS Katey Donis Winsy Елена Arthur1 Tonny Ronquillo MD MD mh7 Corrections: (The following items were deleted from the chart) 05:24 05:10 Missed attempt(s): 20 gauge in left antecubital area. Bleeding controlled, band wh aid applied, catheter tip intact.
--- NOTE | 2019-11-14 06:26 | EDPHYS ---
Physician Documentation [facility] Name: Che Helton Age: 53 yrs Sex: Female : 1965 Arrival Date: 11/14/2019 Time: 04:32 Bed 17 Private MD: Jayleen Burnetth ED Physician Tonny Ronquillo HPI: 11/13 05:02 This 53 yrs old Black Female presents to ER via Wheelchair with complaints of Low Back mh7 Pain. 05:02 The patient presents with pain. mh7 05:02 The patient presents with pain that is acute, with no known mechanism of injury. The mh7 symptoms are located in the lumbar area and right flank. The pain radiates to the right leg. The problem was sustained from unknown cause. Onset: The symptoms/episode began/occurred 2 day(s) ago. Modifying factors: The patient symptoms are alleviated by nothing, the patient symptoms are aggravated by movement, walking. Associated signs and symptoms: Pertinent negatives: abdominal pain, chest pain, constipation, dysuria, fever, headache, hematuria, incontinence, nausea, numbness, tingling, urinary retention, vomiting, weakness. Severity of symptoms: At their worst the symptoms were moderate, yesterday, in the emergency department the symptoms have improved, moderately. 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 - Social history:: Smoking status: Patient reports the use of cigarette tobacco products, smokes one-half pack cigarettes per day. ROS: 05:02 Constitutional: Negative for fever, chills, and weight loss, Eyes: Negative for injury, mh7 pain, redness, and discharge, ENT: Negative for injury, pain, and discharge, Neck: Negative for injury, pain, and swelling, Cardiovascular: Negative for chest pain, palpitations, and edema, Respiratory: Negative for shortness of breath, cough, wheezing, and pleuritic chest pain, Abdomen/GI: Negative for abdominal pain, nausea, vomiting, diarrhea, and constipation, : Negative for injury, bleeding, discharge, and swelling, Skin: Negative for injury, rash, and discoloration, Neuro: Negative for headache, weakness, numbness, tingling, and seizure, Psych: Negative for depression, anxiety, suicide ideation, homicidal ideation, and hallucinations, Allergy/Immunology: Negative for hives, rash, and allergies, Endocrine: Negative for neck swelling, polydipsia, polyuria, polyphagia, and marked weight changes, Hematologic/Lymphatic: Negative for swollen nodes, abnormal bleeding, and unusual bruising. Exam: 05:02 Head/Face: Normocephalic, atraumatic. Eyes: Pupils equal round and reactive to light, mh7 extra-ocular motions intact. Lids and lashes normal. Conjunctiva and sclera are non-icteric and not injected. Cornea within normal limits. Periorbital areas with no swelling, redness, or edema. Neck: Trachea midline, no thyromegaly or masses palpated, and no cervical lymphadenopathy. Supple, full range of motion without nuchal rigidity, or vertebral point tenderness. No Meningismus. Chest/axilla: Normal chest wall appearance and motion. Nontender with no deformity. No lesions are appreciated. Cardiovascular: Regular rate and rhythm with a normal S1 and S2. No gallops, murmurs, or rubs. Normal PMI, no JVD. No pulse deficits. Respiratory: Lungs have equal breath sounds bilaterally, clear to auscultation and percussion. No rales, rhonchi or wheezes noted. No increased work of breathing, no retractions or nasal flaring. 05:02 Abdomen/GI: Soft, non-tender, with normal bowel sounds. No distension or tympany. No guarding or rebound. No evidence of tenderness throughout. 05:02 Skin: Warm, dry with normal turgor. Normal color with no rashes, no lesions, and no evidence of cellulitis. MS/ Extremity: Pulses equal, no cyanosis. Neurovascular intact. Full, normal range of motion. Neuro: Awake and alert, GCS 15, oriented to person, place, time, and situation. Cranial nerves II-XII grossly intact. Motor strength 5/5 in all extremities. Sensory grossly intact. Cerebellar exam normal. Normal gait. Psych: Awake, alert, with orientation to person, place and time. Behavior, mood, and affect are within normal limits. 05:02 Constitutional: The patient appears in no acute distress, alert, awake, uncomfortable. 05:02 Back: pain, that is mild, of the lumbar area, ROM is normal, normal spinal alignment noted, CVA tenderness, that is moderate, is noted on the right, vertebral tenderness, is appreciated at lumbar area, muscle spasm, is appreciated in the lumbar area and right low back, Straight leg raises: pain bilaterally. Vital Signs: 04:45 BP 117 / 81; Pulse 82; Resp 18; Temp 98.2; Pulse Ox 99% ; Weight 106.59 kg; Height 5 wh ft. 3 in. (160.02 cm); Pain 9/10; 06:07 BP 135 / 70; Pulse 68; Resp 18; Pulse Ox 97% ; wh 04:45 Body Mass Index 41.63 (106.59 kg, 160.02 cm) wh MDM: 04:[address] [facility] 06:22 Differential diagnosis: arthritis, strain, fracture, sciatica, contusion, Herniated mh7 disc UTI, Nephrolithiasis, Pyelonephritis. Data reviewed: vital signs, nurses notes, old medical records, lab test result(s), CBC, electrolytes, urinalysis, radiologic studies, CT scan. Data interpreted: Pulse oximetry: on room air is 97 %. Interpretation: normal. Counseling: I had a detailed discussion with the patient and/or guardian regarding: the historical points, exam findings, and any diagnostic results supporting the discharge/admit diagnosis, lab results, radiology results, the need for outpatient follow up, to return to the emergency department if symptoms worsen or persist or if there are any questions or concerns that arise at home. Response to treatment: the patient's symptoms have resolved after treatment, the patient's blood pressure is in an acceptable range, mental status has returned to baseline, the patient no longer shows bradycardia, the patient is not short of breath, the patient is not tachycardic, the patient's pain is gone, the patient's temperature has normalized. 11/13 04:55 Order name: Basic Metabolic Panel; Complete Time: 06:08 [facility] 11/13 04:55 Order name: CBC with Diff; Complete Time: 05:43 [facility] 11/13 04:55 Order name: Hepatic Function; Complete Time: 06: [facility] 11/13 04:55 Order name: Lipase; Complete Time: 06:08 [facility] 11/13 05:01 Order name: CT Abd/Pelvis - Without Contrast [facility] 11/13 05:47 Order name: Urine Dipstick--Ancillary (enter results); Complete Time: 06:08 3 11/13 04:55 Order name: IV Saline Lock; Complete Time: 05:24 [facility] 11/13 04:55 Order name: Labs collected and sent; Complete Time: 05:24 [facility] 11/13 04:55 Order name: Urine Dipstick-Ancillary (obtain specimen); Complete Time: 05:47 [facility] Administered Medications: 05:19 Drug: NS 0.9% 1000 ml Route: IV; Rate: 1000 ml; Site: left antecubital; 06:41 Follow up: Response: No adverse reaction; IV Status: Completed infusion 05:21 Drug: morphine 4 mg {Note: RASS 0.} Route: IVP; Site: left antecubital; 05:47 Follow up: Response: No adverse reaction; Pain is decreased; RASS: Alert and Calm (0) 05:23 Drug: Zofran (Ondansetron) 4 mg Route: IVP; Site: left antecubital; 05:47 Follow up: Response: No adverse reaction; Nausea is decreased Disposition: 11/14/19 06:25 Discharged to Home. Impression: Sciatica, Flank Pain. - Condition is Stable. - Discharge Instructions: Sciatica, [id number], Flank Pain, [id number]. - Prescriptions for Robaxin 500 mg Oral Tablet - take 2 tablet by ORAL route every 6 hours As needed; 40 tablet. - Medication Reconciliation Form, Thank You Letter, Antibiotic Education, Prescription Opioid Use form. - Follow up: Private Physician; When: 1 - 2 days; Reason: Worsening of condition, Recheck today's complaints, Continuance of care, Re-evaluation by your physician. - Problem is an acute exacerbation. - Symptoms have improved. Signatures: Dispatcher [employer] Isa Benoit Maurice, MD MD mh7 Corrections: (The following items were deleted from the chart) 06:41 06:25 11/14/2019 06:25 Discharged to Home. Impression: Sciatica; Flank Pain. Condition wh is Stable. Forms are Medication Reconciliation Form, Thank You Letter, Antibiotic Education, Prescription Opioid Use. Follow up: Private Physician; When: 1 - 2 days; Reason: Worsening of condition, Recheck today's complaints, Continuance of care, Re-evaluation by your physician. Problem is an acute exacerbation. Symptoms have improved. mh7
[2019-11-14 06:58] VITALS: TEMP 98.2
[2019-11-14 07:02] VITALS: BP 135/70; O2SAT 97
--- NOTE | 2019-11-14 11:28 | RAD REPORT ---
EXAM DESCRIPTION: CT - Abdomen Pelvis Wo Contrast - 11/14/2019 6:19 am CLINICAL HISTORY: FLANK PAIN COMPARISON: 10/26/2018 TECHNIQUE: CT of the abdomen and pelvis without IV contrast. Evaluation of the solid organs and vasc ulature is suboptimal due to lack of IV contrast. FINDINGS: Lung Bases: The visualized lung bases are clear. Bones: No destructive bone lesions identified. Abdomen: Liver: The liver has normal size and decreased density. Gallbladder: No calcified gallstones. Spleen, Pancreas, and Adrenal Glands: The spleen, pancreas, and adrenal glands are unremarkable. Kidneys: The kidneys have normal size without evidence of hydronephrosis. No obstructing ureteral elizabeth culi. Vasculature: The aorta and IVC have normal caliber and position. Stomach: Prior gastric bypass. Other: No free intraperitoneal air. No free fluid or lymphadenopathy. Pelvis: Bladder: Urinary bladder is unremarkable. Bowel: No dilated loops of large or small bowel. Appendix: Normal appendix. Pelvis: Prior hysterectomy. IMPRESSION: 1. No acute inflammatory or obstructive process identified. This exam was performed according to our departmental dose-optimization program, which includes autom ated exposure control, adjustment of the mA and/or kV according to patient size and/or use of iterati ve reconstruction technique. Electronically signed by: Nilton Little 11/14/2019 6:11 AM CDT Due to temporary technical issues with the PACS/Fluency reporting system, reports are being signed by the in house radiologist without review as a courtesy to ensure prompt reporting. The interpreting r adiologist is fully responsible for the content of the report.
== END 2019-11-14 06:41 | disposition home or self-care (01) ==
LOC: ER 04:31
DX: M54.30 Sciatica, unspecified side (principal); R10.9 Unspecified abdominal pain; I10 Essential (primary) hypertension; F17.210 Nicotine dependence, cigarettes, uncomplicated; Z88.2 Allergy status to sulfonamides; Z98.84 Bariatric surgery status
CPT/HCPCS: 96361; 85025; 80048; 36415; 80076; 81003; 83690; 74176; 96375; 96374; 99284; J7030; J2405

== ENCOUNTER 2019-12-08 16:27 | Emergency (ER) | payer OTHER ==
--- OUTSIDE RECORDS SUMMARY | 2019-12-08 16:39 | XMS REPORT | Clinical Summary ---
:1965 Author Organization [facility] Address [address] [place] [address] Care Team Providers Name Role Phone Lynnette [...] History of gastric surgery 08/31/2015 History of [place] (myocardial infarction) 08/31/2015 H/O section 08/31/2015 Smoking history 08/31/2015 Acute CVA (cerebrovascular accident) 08/30/2015 Social History Tobacco Use Types Packs/Day Years Used Date Never Smoker Alcohol Use Drinks/Week oz/Week Comments No Sex Assigned at Date Recorded Not on file Last Filed Vital Signs Not on file Plan of Treatment Not on file Results Not on fileafter 12/07/2018 Insurance Payer Benefit Plan / Subscriber ID Effective Dates Phone Addre ss Type Group BELLE MEDICAID MEDICAID BELLE [id number] 2015-Present Advance Directives For more information, please contact: [phone] Code Status Date Activated Date Inactivated Comments Full Code 09/07/2015 9:59 PM 09/08/2015 3:23 PM This code status was determined by: Patient Full Code 08/30/2015 7:48 PM 09/01/2015 2:01 PM This code status was determined by: Patient
--- OUTSIDE RECORDS SUMMARY | 2019-12-08 16:40 | XMS REPORT | Continuity of Care Document ---
:1965 Author Organization [facility] t Address [address] [place] [address] Care Team Providers Name Role Phone Lynnette Lozano MD Primary Care Physician Srinivasa FRANCISCO S Attending Clinician Han DOTY Attending Clinician Yasmeen DOTY, T Attending Clinician Doctor Unassigned, Name Attending [...] [facility] - surgery surgery 00:00: Medical 00 [place] History of History of Disease Active [facility] [place] [facility] - (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 00:00: Mt dical l l 00 Center infarction infarction ) ) H/O H/O Disease Active [facility]30 [facility] - section section 00:00: Medical 00 [place] Smoking Smoking Disease Active [facility] history history 08-30 [facility] - 00:00: Medical 00 [place] Acute CVA Acute CVA Disease Active [facility] (cerebrova (cerebrova 08-29 [place] kes - scular scular 00:00: Medical accident) accident) 00 Cent er Mixed Mixed Diagnosis Active [facility] hyperlipid hyperlipid [place] kes - emia emia [facility] Depression Depression Diagnosis Active [facility] Seasonal Seasonal Diagnosis Active [facility] allergies allergies Luke s - Memoria [facility] GERD GERD Diagnosis Active [facility] without without Lukes - esophagiti esophagiti Me moria s s l [facility] Controlled Controlled Problem Active [...] - ion), ion), Memoria benign benign l [facility] Chronic Chronic Diagnosis Active [facility] pain pain [facility] - syndrome syndrome Memori a [facility] Bipolar Bipolar Diagnosis Active [...] [place] kes - itis of itis of [facility] left knee left knee l [...] Not [facility] Reaction [facility] Morphine Drug Active Rash [facility] Allergy [facility] Sulfa Drug Active Rash [facility] (Sulfona [facility] ics) Social History Social Habit Start Date Stop Date Quantity Comments Source Sex Assigned At [facility] Alcohol intake 2015-09-08 2015-09-08 Current [facility] es - 00:00:00 00:00:00 non-drinker of Medical Ce nter alcohol (finding) Smoking Status Start Date Stop Date Source Never smoker [facility] edical [place] Medications Ordered Filled Start Stop Current Ordering Indication Dosage Frequency Signature Comments Components Source Medication Medication Date Date Medication? Clinician (SIG) Name Name amLODIPine Yes 10mg QD Take [address] (NORVASC) 7-14 by mouth L[facility] - 10 MG 13:23: daily. Medical tablet 19 Center metFORMIN Yes 500mg Take [address] [facility] [address] (GLUCOPHAGE 7-14 mg by Lukes - ) 500 MG 13:23: mouth 2 Medica l tablet 19 (two) Center times daily with breakfast and dinner. DULoxetine Yes 30mg QD Take [address] (CYMBALTA) 7-14 by mouth [facility] - 30 MG 13:23: every Medical capsule 19 morning. Center DULoxetine 0 Yes 60mg QD Take [address] (CYMBALTA) 7-14 by mouth [facility] - 60 MG 13:23: nightly. Medical capsule 19 Center aspirin 81 Yes 81mg QD Take [address] MG EC 7-14 by mouth [facility] - tablet 13:23: daily. Medical 19 Center Metformin Metformin Yes [place] 1 tablet [...] ne ne [place] [facility] - [facility] l [facility] Duloxetine Duloxetine Yes [place] [address] [facility] HCl HCl [place] [facility] - [facility] l [facility] Sumatriptan Sumatriptan Yes [place] [address] [facility] Succinate Succinate [place] at least 2 [facility] - hours Memoria between l doses as Outpati needed ent Clinics Nexium Nexium Yes [place] [address] [facility] [place] [facility] - [facility] l Outpati ent Clinics Butalbital- Butalbital- Yes [place] [address] ASA-Caffein ASA-Caffein [place] as needed [facility] - e e [facility]oria l [facility] Quetiapine Quetiapine Yes [place] [address] [facility] Fumarate Fumarate [place] [facility] - [facility] l Outpati ent Clinics Plavix Plavix Yes [place] 1 tablet [facility] [place] [facility] Hydrocodone Hydrocodone Yes [place] as [facility] -Acetaminop -Acetaminop [place] directed [facility] - hen hen Memoria l [facility] Diclofenac Diclofenac Yes [place] [address] [facility] Sodium Sodium [place] with food [facility]ukes - or milk Memoria l Outpati ent Clinics Ondansetron Ondansetron Yes [place] [address] [facility] [place] on the Lukes - tongue and Memoria allow to l dissolve [facility] Cyclobenzap Cyclobenzap Yes [place] [address] [address] rine HCl rine HCl [place] as needed L ukes - Memoria l [facility] Gabapentin Gabapentin Yes [place] [address] [facility] [place] [facility] - [facility] Dyazide Dyazide Yes [place] [address] [place] in the [facility] - morning Memoria l [facility] Amitriptyli Amitriptyli Yes [place] [address] [facility] ne HCl ne HCl [place] at bedtime [facility] Atorvastati Atorvastati Yes [place] [address] [facility] n Calcium n Calcium [place] Luke s - [facility] l [facility]ics Linzess Linzess Yes [place] [address] [place] at least [facility]ukes - 30 minutes Memoria before the l first meal Outpati of the day ent on an Clinics empty stomach Amitiza Amitiza Yes [place] [address] [place] with food [facility]ukes - and water Memoria l [facility] Alprazolam Alprazolam Yes [place] [address] [facility] [place] [facility] - [facility]oria l [facility] Immunizations Ordered Filled Immunization Date Status Comments [facility] e Immunization Name Name Flucelvax - Flucelvax - 2019-04-[address] [facility] - multidose vial multidose vial 00:00:00 [facility] Outpatient Clinics Procedures This patient has no known procedures. Encounters Start End Encounter Admission Attending Care Care Encounter Source Date/Time Date/Time Type Type Clinicians Facility Department ID 2019-11-01 2019-11-01 Emergency Srinivasa [facility] [id number] 21:14:00 22:39:00 Jennifer Guevara [id number] [place] [id number] [employer] [id number] 2019-08-10 2019-08-10 Refill Han [facility] [id number] 00:00:00 00:00:00 Cristina Guevara [id number] [place] [id number] [facility] [phone] [address] 2019-07-15 2019-07-15 [facility] [id number] 13:15:00 13:15:00 t [facility] Medicine Outpati ent Clinics 2019-07-14 2019-07-14 Telemedici [facility] [id number] 07:59:51 08:19:51 ne Visit Cristina Guevara [id number] [place] [id number] Professio [phone] formerly [facility] 059 [facility] 2019-06-25 2019-06-25 Telephone [facility] [id number] 00:00:00 00:00:00 Amritzoltanjimenez [place] [id number] [place] [id number] Professio [phone] [facility] 2019-06-24 2019-06-24 [facility] [id number] 09:31:59 09:46:59 ne Visit Mamadou Willem Ismael [id number] [place] [id number] Professio [phone] [address] 2019-06-24 2019-06-24 [facility] [id number] 00:00:00 00:00:00 Fabriziojimenez Ismael [id number] [place] [id number] Professio [phone] [facility] 2019-06-19 2019-06-19 Orders Doctor REDDY [id number] 00:00:00 00:00:00 Only Unassigned, WILLIE [id number] [place] [facility] [id number] 2019-06-17 2019-06-17 [facility]ic [facility] [id number] 07:59:54 08:29:54 ne Visit Mamadou Guevara [id number] [place] [id number] Professio [phone] [facility] 2019-05-11 2019-05-11 [facility] [id number] 15:30:00 15:30:00 t [facility] - [facility] ent Clinics 2019-05-04 2019-05-04 Outpatient [facility] [place] [id number] 09:30:00 09:30:00 t [facility] - [facility] 2019-04-30 2019-04-30 Refill [facility] [id number] 00:00:00 00:00:00 Cristina Castilloton [id number] [place] [id number] Professio [phone] nal 059 [facility] 2019-04-27 2019-04-27 Outpatient [facility] [place] [id number] [facility] [address] 15:30:00 15:30:00 t [facility] 2019-04-20 2019-04-20 [facility]phone [facility] [id number] 00:00:00 00:00:00 Fabriziojimenez [place] [id number] [place] [id number] Professio [phone] [address] 2019-04-16 2019-04-16 [facility] [id number] [facility] [address] 13:00:00 13:00:00 t Tirendo Armstrong s [facility] ent [facility] 2019-04-15 2019-04-15 Office [facility] [id number] 13:55:26 14:36:48 Visit Fabriziojimenez Ismael [id number] [place] [id number] Professio [phone] [facility] 2019-04-15 2019-04-15 Orders Doctor BLAKELY [id number] 00:00:00 00:00:00 Only Unassigned, WILLIE [id number] [place] [facility] [phone] [facility] 2019-04-08 2019-04-08 [facility] [id number] 16:19:00 16:19:00 t [facility] 2019-04-07 2019-04-07 [facility] [id number] 08:00:00 08:00:00 t [facility] 2019-04-02 2019-04-02 [facility] [id number] [address] 11:30:00 11:30:00 t [facility] 2019-03-31 2019-03-31 [facility] [id number] 16:13:00 16:13:00 t [facility] 2019-03-26 2019-03-26 [facility] [id number] 13:16:00 13:16:00 t [facility] 2019-03-26 2019-03-26 [facility] [id number] 12:59:00 12:59:00 t [facility] 2019-03-05 2019-03-05 [facility] [id number] 08:38:00 08:38:00 t [facility] 2019-03-04 2019-03-04 [facility] [id number] 09:30:00 09:30:00 t [facility] 2019-03-03 2019-03-03 [facility] [id number] 16:25:00 16:25:00 t Bone [facility] 2019-02-26 2019-02-26 [facility] [id number] 09:10:00 09:10:00 t [facility] ent Clinics 2019-02-13 2019-02-13 [facility] [id number] 13:36:00 13:36:00 t [facility] 2019-02-11 2019-02-11 [facility] [id number] 11:21:00 11:21:00 t [facility] ent Clinics 2019-02-09 2019-02-09 [facility] [id number] 14:30:00 14:30:00 t [facility] Clinics 2019-02-05 2019-02-05 [facility] [id number] 13:45:00 13:45:00 t [facility] 2019-01-28 2019-01-28 [facility] [id number] 07:54:00 07:54:00 t [facility] 2019-01-26 2019-01-26 [facility] [id number] 15:10:00 15:10:00 t [facility] 2019-01-21 2019-01-21 [facility] [id number] 13:00:00 13:00:00 [facility] 2018-12-24 2018-12-24 VIDA Feng [id number] 00:00:00 00:00:00 Cristina Guevara [id number] [place] [id number] [facility] [phone] [address] 2018-02-03 2018-02-03 Outpatient [place] [place] [id number] 16:06:00 16:06:00 t Tirendo Armstrong s invino [facility] Medicine Outpati ent Clinics Results This patient has no known results.
--- NOTE | 2019-12-08 17:53 | ER ---
Nurse's Notes [facility] Name: Che Helton Age: 54 yrs Sex: Female : 1965 Arrival Date: 12/08/2019 Time: 16:30 Bed Waiting Private MD: Orlando Burnett Diagnosis: Presentation: 12/07 16:31 Chief complaint: Patient states: "I am having chest pain that started today. worse when jd3 I get up and am moving.". Coronavirus screen: At this time, the client does not indicate any symptoms associated with coronavirus-19. Ebola Screen: Patient negative for fever greater than or equal to 101.5 degrees Fahrenheit, and additional compatible Ebola Virus Disease symptoms. Initial Sepsis Screen: Does the patient meet any 2 criteria? No. Patient's initial sepsis screen is negative. Does the patient have a suspected source of infection? No. Patient's initial sepsis screen is negative. Risk Assessment: Do you want to hurt yourself or someone else? Patient reports no desire to harm self or others. Onset of symptoms was December 07, 2019. 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 - Social history:: Smoking status: Patient reports the use of cigarette tobacco products, smokes one-half pack cigarettes per day. Vital Signs: 16:33 BP 119 / 82; Pulse 92; Resp 20 S; Temp 98.2(O); Pulse Ox 100% on R/A; Weight 104.33 kg jd3 (R); Height 5 ft. 3 in. (160.02 cm) (R); Pain 10/10; 16:33 Body Mass Index 40.74 (104.33 kg, 160.02 cm) jd3 ED Course: 16:30 Patient arrived in ED. mr 16:30 Orlando Burnett DO is Private Physician. mr 16:32 Triage completed. jd3 16:36 Arm band placed on. jd3 16:43 EKG completed in triage. Results shown to MD. jd3 17:45 Patient's name was called from ER lobby. No response. jd3 17:52 Patient's name was called from ER lobby. No response. jd3 Administered Medications: No medications were administered Outcome: 17:52 Patient left the ED. jd3 Signatures: Christy Bonilla Jonathon, RN RN jd3
[2019-12-08 17:59] VITALS: BP 119/82; TEMP 98.2; O2SAT 100
--- NOTE | 2019-12-10 07:07 | EKG ---
Test Date: 2019-12-08 Test Time: 16:44:27 Cat Hooker: GOVIND MEASUREMENT RESULTS: Intervals: Rate: 89 FL: 170 QRSD: 98 QT: 394 QTc: 479 [place]: P: 72 FL: 170 QRS: 3 T: 78 INTERPRETIVE STATEMENTS: Normal sinus rhythm Biatrial enlargement Left ventricular hypertrophy Prolonged QT Abnormal ECG Compared to ECG 03/25/2019 04:15:51 Atrial abnormality now present Electronically Signed On 12-10-19 07:04:11 CDT by Giovanni Brewster
== END 2019-12-08 17:52 | disposition left against medical advice (07) ==
LOC: ER 16:27
DX: Z53.21 Procedure and treatment not carried out due to patient leaving prior to being seen by health care provider (principal)
CPT/HCPCS: 93005; 99281

== ENCOUNTER 2020-02-23 16:41 | Emergency (ER) | payer OTHER ==
--- OUTSIDE RECORDS SUMMARY | 2020-02-23 16:44 | XMS REPORT | Clinical Summary ---
:1965 Author Organization [facility] Address [address] [place] [address] Care Team Providers Name Role Phone Lynnette [...] Not on file Results Not on fileafter 02/22/2019 Insurance Payer Benefit Plan / Subscriber ID Effective Dates Phone Addre ss Type Group BEL[place] MEDICAID MEDICAID [place] [id number] 2015-Present Advance Directives For more information, please contact: [phone] Code Status Date Activated Date Inactivated Comments Full Code 09/07/2015 9:59 PM 09/08/2015 3:23 PM This code status was determined by: Patient Full Code 08/30/2015 7:48 PM 09/01/2015 2:01 PM This code status was determined by: Patient
--- OUTSIDE RECORDS SUMMARY | 2020-02-23 16:44 | XMS REPORT | Continuity of Care Document ---
:1965 Author Organization [facility] t Address [address] [place] [address] Care Team Providers Name Role Phone Lynnette Lozano MD Primary Care Physician aHn DOTY Attending Clinician Problems Condition Condition Condition Status Onset Resolution Last Treating Co mments Source Name Details Category Date Date Treatment Clinician Date CVA CVA Disease Active [facility] ([facility]rebral (cerebral 09-07 [facility] - vascular vascular 00:00: Medica l accident) accident) 00 Cent er Right-side Right-side Disease Active [facility] muscle d muscle 08-31 [facility] weakness weakness 00:[facility]: Medica l 00 [place] Aphasia Aphasia Disease Active [facility] 08[facility]31 [facility] Center Type 2 Type [address] [facility] diabetes diabetes 08-30 [facility] - mellitus mellitus 00:00: Medica l 00 Center HTN HTN Disease Active [facility] (hypertens (hypertens 08-30 [facility] - ion) ion) 00:00: Medical 00 Center Metabolic Metabolic Disease Active [facility] syndrome syndrome 08-30 [facility] - 00:[facility]: Medical 00 [place] Morbid Morbid Disease Active [facility] obesity obesity 08-30 [facility] - 00:00: Medical 00 [place] History of History of Disease Active [facility] gastric gastric 08-30 [facility] - surgery surgery 00:00: Medical 00 [place] History of History of Disease Active [facility] HI HI 08-30 [facility] (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 00:00: Pa dical [facility] 00 [place] infarction infarction ) ) H/O H/O Disease Active [facility] 08-30 [facility] section section 00:00: Medical 00 [place] Smoking Smoking Disease Active [facility] history history 08-30 [facility] - 00:00: Medical [address] [place] [address] Acute CVA Acute CVA Disease Active [facility] (cerebrova (cerebrova 08-29 [facility] - scular scular 00:00: Medical accident) accident) 00 Cent er Allergies, Adverse Reactions, Alerts Allergy Allergy Status Severity Reaction(s) Onset Inactive Treating Comm ents Source Name Type Date Date Clinician Sulfa Adverse Active Info Not [facility] Reaction Available [facility] Morphine Drug Active Rash [facility] Allergy [facility] Sulfa Drug Active Rash [facility] (Sulfona Allergy [facility] Antibiot [place] ics) Social History Social Habit Start Date Stop Date Quantity Comments Source Sex Assigned At [facility] Alcohol intake 2015-09-08 2015-09-08 Current [facility] es - 00:00:00 00:00:00 non-drinker of Medical Ce nter alcohol (finding) Smoking Status Start Date Stop Date Source Never smoker [facility] edical [place] Medications Ordered Filled Start Stop Current Ordering [...] every Medical capsule 19 morning. Center DULoxetine Yes 60mg QD Take 60 mg [...] [facility] ent Clinics Dyazide Dyazide Yes [place] [address] [place] in the [facility] - morning [facility] ent Clinics Amitriptyli Amitriptyli Yes [place] [address] ne HCl ne HCl [place] at bedtime [place] - [facility] ent Clinics Atorvastati Atorvastati Yes [place] [address] [facility] n Calcium n Calcium [place] Lu s - [facility] l [facility] ent Clinics Linzess Linzess Yes [place] [address] [place] at least [facility] - 30 minutes Memoria before the l first meal Outpati of the day ent on an Clinics empty stomach Amitiza Amitiza Yes [place] [address] [place] with food [facility] - and water Memoria l [facility] ent Clinics Alprazolam Alprazolam Yes [place] [address] [facility] ent Clinics Immunizations Ordered Filled Immunization Date Status Comments [facility] e Immunization Name Name Flucelvax - Flucelvax - 2019-04-[address] [facility] - multidose vial multidose vial 00:00:00 [facility] Outpatient Clinics Procedures This patient has no known procedures. Encounters Start End Encounter Admission Attending Care Care Encounter Source Date/Time Date/Time Type Type Clinicians Facility Department ID 2020-02-01 2020-02-01 Outpatient [facility] [id number] [facility] 2020-01-29 2020-01-29 Outpatient [facility] [id number] [facility] 2020-01-27 2020-01-27 Outpatient [facility] [id number] [facility] 2020-01-26 2020-01-26 Outpatient [facility] [id number] [facility] 2020-01-07 2020-01-07 Outpatient [facility] [id number] [facility] 2020-01-06 2020-01-06 Outpatient [facility] [id number] [facility] 2019-12-24 2019-12-24 Telephone [facility] [id number] 00:00:00 00:00:00 Cristina Guevara [id number] [place] [id number] Professio [id number] [address] 2019-12-22 2019-12-22 Office [facility] [id number] 16:16:32 16:44:34 Visit Cristina Guevara [id number] [place] [id number] Professio [id number] [address] 2019-12-17 2019-12-17 Outpatient [facility] [id number] [facility] 2019-12-14 2019-12-14 Outpatient [facility] [id number] [facility] ent Clinics 2019-07-15 2019-07-15 [facility] [id number] 13:15:00 13:15:00 t [employer] [place] [employer] [facility] ent Clinics 2019-05-11 2019-05-11 [facility] [id number] 15[facility]30:00 15:30:00 t [facility] ent Clinics 2019-05-04 2019-05-04 [facility] [id number] 09:30:00 09:30:00 t [facility] ent [facility] 2019-04-27 2019-04-27 [facility] [id number] 15:30:00 15:30:00 t [facility] 2019-04-16 2019-04-16 [facility] [id number] 13:00:00 13:00:00 t [employer] [facility] 2019-04-08 2019-04-08 [facility] [id number] 16:19:00 16:19:00 t [facility] ent [facility] 2019-04-07 2019-04-07 [facility] [id number] 08:00:00 08:00:00 t [facility] 2019-04-02 2019-04-02 [facility] [id number] 11:30:00 11:30:00 t [place] [facility] 2019-03-31 2019-03-31 [facility] [id number] 16:13:00 16:13:00 t [facility] 2019-03-26 2019-03-26 [facility] [id number] 13:16:00 13:16:00 [facility] 2019-03-26 2019-03-26 [facility] [id number] 12:59:00 12:59:00 t [facility] ent [facility] 2019-03-05 2019-03-05 [facility] [id number] 08:38:00 08:38:00 t [facility] 2019-03-04 2019-03-04 [facility] [id number] 09:30:00 09:30:00 t [facility] ent Clinics 2019-03-03 2019-03-03 [facility] [id number] 16:25:00 16:25:00 t [facility] ent [facility] 2019-02-26 2019-02-26 [facility] [id number] 09:10:00 09:10:00 t [facility] ent Clinics 2019-02-13 2019-02-13 [facility] [id number] 13:36:00 13:36:00 t [employer] [facility] 2019-02-11 2019-02-11 [facility] [id number] 11:21:00 11:21:00 t [facility] ent Clinics 2019-02-09 2019-02-09 [facility] [id number] 14:30:00 14:30:00 t [facility] ent [facility] 2019-02-05 2019-02-05 [facility] [id number] 13:45:00 13:45:00 t [place] [employer] [facility] ent [facility] 2019-01-28 2019-01-28 [facility] [id number] 07:54:00 07:54:00 t [facility] ent [facility] 2019-01-26 2019-01-26 [facility] [id number] 15:10:00 15:10:00 t [employer] [facility] [facility] ent [facility] 2019-01-21 2019-01-21 [facility] [id number] 13:00:00 13:00:00 t [employer] [facility] ent Clinics 2018-02-03 2018-02-03 Outpatient [place] [id number] 16:06:00 16:06:00 t [facility] [place] t3[place] [facility] Outpati ent Clinics Results This patient has no known results.
--- OUTSIDE RECORDS SUMMARY | 2020-02-23 16:45 | XMS REPORT | Summary of Care ---
:1965 Author Organization [facility] Address [address] [place] [address] Care Team Providers Name Role Phone Ana Unavailable Shanon Traore Primary Care Provider Encounter Details Date Type Department Care Team Description 12/08/2019 Orders Only [facility] Doctor Unassigned, No [address] [facility] [place] [address] [address] [place] [address] Allergies Active Allergy Reactions Severity Noted Date Comments Sulfa (Sulfonamide Antibiotics) Anaphylaxis 6 documented as of this encounter (statuses as of 12/08/2019) Medications Medication Sig Dispensed Refills Start Date [...] on 12/18/2016 2:03 PM amitriptyline 25 mg tablet Take 25 mg by mouth at 0 Active bedtime as needed for Insomnia. HYDROcodone-acetaminophen Take 1 tablet by mouth 0 Active (NORCO) 10-325 mg tablet every 6 (six) hours as needed for Pain (scale 7-10). QUEtiapine (SEROQUEL) 50 mg Take 50 mg by mouth 0 Active tablet daily. nitroglycerin 0.[address] 1 tablet under the 1 Bottle 5 03/29 Active sublingual tongue every 5 (five) tabletIndications: Chest minutes as needed for pain, unspecified type Chest pain. diclofenac 75 mg EC Take 1 tablet by mouth 2 60 tablet 1 12/24 Active tabletIndications: Acute (two) times daily with pain of left knee meals. clopidogreL 75 mg tablet Take 1 tablet by mouth 30 tablet 5 Active daily. diltiazem 360 mg 24 hr Take 1 capsule by mouth 30 capsule 5 Active capsuleIndications: Chest daily. pain, unspecified type triamterene-hydrochlorothiaz Take 1 capsule by mouth 90 capsule 0 08/18/2019 Active paz 37.5-25 mg per every morning. capsuleIndications: Essential hypertension documented as of this encounter (statuses as of 12/08/2019) Active Problems Problem Noted Date LEN (obstructive sleep apnea) 07/14/2019 Essential hypertension 03/17/2016 Dyslipidemia 03/17/2016 Coronary-myocardial bridge 03/17/2016 Type 2 diabetes mellitus without complication, without long-term current 03/17/2016 use of insulin Tobacco abuse 03/17/2016 Morbid obesity with body mass index of 40.0-49.9 01/10 Chest pain 01/10/2016 documented as of this encounter (statuses as of 12/08/2019) Resolved Problems Problem Noted Date Resolved Date Obesity (BMI 30-39.9) 02/13/2016 07/02/2018 Morbid obesity with body mass index of 50 or higher 01/11/20 16 07/02/2018 documented as of this encounter (statuses as of 12/08/2019) Social History Tobacco Use Types Packs/Day Years Used Date Current Every Day Smoker Cigarettes 0.25 8 Smokeless Tobacco: Never Used Alcohol Use Drinks/Week oz/Week Comments No 0 Standard drinks or equivalent 0.0 Sex Assigned at Date Recorded Not on file documented as of this encounter Last Filed [...] of this encounter Implants Implanted Type Area Histology Assistant Device Shelf Model / Identifier Expiration Date Ser ial / Lot Phalinx Cannulated [facility] [id number] / Implanted: Qty: 1 on 07/22/2018 by Andrew Romero Jr., DPM at [facility] [employer] 0 / 0 Kwire 0.9mm X 102mm [facility] [id number] / Implanted: Qty: 1 on 07/22/2018 by Andrew Romero Jr., DPM at [facility] [employer] 0 / 0 documented as of this encounter Procedures Procedure Name Priority Date/Time Associated Diagnosis Comme nts CONSENT/REFUSAL FOR Routine 12/08/2019 6:07 PM CDT DIAGNOSIS AND TREATMENT documented in this encounter Results Not on filedocumented in this encounter Insurance Payer Benefit Plan / Subscriber ID Effective Dates Phone Addre ss Type Group [facility] [id number] 2018-Present Medicaid COMM PLAN - PLUS MANAGED MEDICAID [facility] [id number] 2019-Present Medicaid COMM PLAN - MANAGED MEDICAID documented as of this encounter
--- OUTSIDE RECORDS SUMMARY | 2020-02-23 16:46 | XMS REPORT ---
:1965 Author Organization [facility] Address [address] , [address] [place] [address] Care Team Providers Name Role Phone [place] Unavailable [phone] PROBLEMS Type Condition ICD9-CM AST20-GR Onset Condition SNOMED Code Notes Code Code Dates Status Problem Controlled type 2 E11.9 Active 562724475 diabetes mellitus without complication, without long-term current use of insulin Problem Bipolar affective F31.30 Active 160140328 disorder, current episode depressed, current episode severity unspecified Problem Depression with F41.8 Active 86887451 anxiety Problem Chronic pain G89.4 Active 086589740 syndrome Problem HTN I10 Active 87105240 (hypertension), benign Problem Primary M17.12 Active 931879521702988 osteoarthritis of left knee Problem Seasonal J30.2 Active 504705547 allergies Problem Hypercalcemia E83.52 Active 40538237 Problem Mixed E78.2 Active 158004998 hyperlipidemia Problem Neuropathy G62.9 Active 752130400 Problem GERD without K21.9 Active 864403623 esophagitis Problem History of CVA Z86.73 Active 663378279 (cerebrovascular accident) without residual deficits Problem Constipation, K59.00 Active 00017327 unspecified constipation type ALLERGIES Allergen (clinical drug Drug/Non Drug Allergy Reaction Allergy Type Onset Date Status ingredient) documented on EMR Sulfa Unknown Drug Allergy Active ENCOUNTERS from 1965 to 2019-12-21 Encounter Location Date Provider Diagnosis [facility] [address] Nov, Long khoury oste[facility] [address] of left knee M17.12 ; [place], [place] Acute pain of l eft knee [address] M25.562 ; Synov ial cyst of popliteal sp joseph [Razo], left k nee M71.22 and Lipo ma of left lower extr emity D17.24 IMMUNIZATIONS Vaccine Route Administration Date Status Flucelvax - multidose vial IM Intramuscular Apr 16, 2019 Admi nistered Euflexxa Unknown May 11, 2019 Administered Euflexxa Unknown May 04, 2019 Administered Euflexxa Unknown April 27, 2019 Administered Kenalog (Triamcinolone) IM Intramuscular Jan 21, 2019 Adminis tered Kenalog (Triamcinolone) IM Intramuscular Dec 30, 2017 Adminis tered SOCIAL HISTORY Tobacco Use: Social History Observation Description Date Details (start date - stop date) Current Smoker Sex Assigned At : Social History Observation Description Sex Assigned At Unknown PHQ9 Question Answer Notes Little interest or pleasure in doing things Several days Feeling down, depressed, or hopeless Several days Trouble falling or staying asleep or sleeping too much Sever al days Feeling tired or having little energy Several days Poor appetite or overeating More than half the days Feeling bad about yourself, or that you are a failure, More than half the days or have let yourself or your family down Trouble concentrating on things, such as reading the Several days newspaper or watching television Moving or speaking so slowly that other people could Not at all have noticed; or the opposite, being so fidgety or restless that you have been moving around a lot more than usual Total Score 9 Interpretation Mild Depression Thoughts that you would be better off or of Not at all hurting yourself in some way Alcohol Screen Question Answer Notes Did you have a drink containing alcohol in the past Yes year? Points 1 Interpretation Negative How often did you have 6 or more drinks on one Never (0 poin ts) occasion in the past year? How many drinks did you have on a typical day when 1 or 2 (0 points) you were drinking in the past year? How often did you have a drink containing alcohol in Monthly or less (1 point) the past year? Tobacco Use/Smoking Question Answer Notes Additional Findings: Tobacco User Moderate cigarette smoker (10-19 cigs/day) Are you a current smoker How many cigarettes a day do you smoke? 6-10 How often do you smoke cigarettes? every day REASON FOR REFERRAL No Information VITAL SIGNS Height 63 in 22 Oct, 2020 Weight 258 lbs Nov, Temperature 96.9 degrees Fahrenheit Nov, BMI 45.70 kg/m2 Nov, Blood pressure systolic 136 mm Hg Nov, Blood pressure diastolic 84 mm Hg Nov, MEDICATIONS Medication SIG (Take, Route, Start Date End Date Status Frequency, Duration) Metformin HCl 1000 MG 1 tablet with a meal Active Orally Twice a day for 30 days Clopidogrel Bisulfate Active Plavix 75 MG 1 tablet Orally Once a Activ e day for 30 days Cyclobenzaprine HCl 10 MG 1 tablet as needed Active Orally Three times a day Amitiza 24 MCG 1 capsule with food and Ac tive water Orally Twice a day Nexium 40 MG 1 capsule Orally Once a Acti ve day for 30 days Clindamycin HCl Not-Taking Gabapentin 300 MG 1 capsule Orally TID Ac tive Amitriptyline HCl 25 MG 1 tablet at bedtime Active Orally Once a day Duloxetine HCl 30 MG 1 capsule Orally Once a Active day Hydrocodone-Acetaminophen as directed Orally Active 7.5-500 MG Atorvastatin Calcium 40 MG 1 tablet Orally Once a Active day for 30 Diclofenac Sodium 100 MG 1 tablet with food or Active milk Orally Once a day Lidocaine Active Dyazide 37.5-25 MG 1 capsule in the morning Active Orally Once a day Quetiapine Fumarate 100 MG 1 tablet Orally Once a Active day Triamterene-HCTZ Active Diltiazem HCl ER Beads Activ e Diltiazem HCl ER Coated Beads TK 1 C PO D Oral Active 180 MG Amitiza 24 MCG TAKE ONE CAPSULE BY Active MOUTH TWICE DAILY WITH FOOD AND WATER for 30 Sumatriptan Succinate 25 MG 1 tablet at least 2 Active hours between doses as needed Orally Twice a day Ondansetron 4 MG 1 tablet on the tongue A ctive and allow to dissolve Orally Once a day for 30 day(s) Whfttnyjlh-DNR-Zyjqbtdc 1 capsule as needed Active 50-325-40 MG Orally every 4 hrs Linzess 290 MCG 1 capsule at least 30 Act alf minutes before the first meal of the day on an empty stomach Orally Once a day for 90 Oxcarbazepine 300 MG 1 tablet Orally Twice a Active day PROCEDURES No Information RESULTS No Results REASON FOR VISIT left knee pain MEDICAL (GENERAL) HISTORY Type Description Date Medical History Bipolar affective disorder, current epis ode depressed, current episode severity unsp ecified Medical History Depression with anxiety Medical History HTN (hypertension), benign Medical History GERD without esophagitis Medical History Mixed hyperlipidemia Medical History Seasonal allergies Medical History Controlled type 2 diabetes mellitus with out complication, without long-term current use of insulin Medical History Chronic pain syndrome Medical History Neuropathy Medical History history of stroke Medical History history of heart attack Medical History sees pain management Surgical History Gastric Sleeve 2015 Surgical History Left Foot 2018 Surgical History Fibroid Cysts 2017 Surgical History left knee(Jenny) 2011 Surgical History left foot Jenny 2013 Hospitalization History chest pain 03/2018 Hospitalization History [facility] -chest pains 12/08/19 Goals Section No Information Health Concerns No Information MEDICAL EQUIPMENT No Information MENTAL STATUS No Information FUNCTIONAL STATUS No Information ASSESSMENTS Encounter Date Diagnosis Notes Nov, Primary osteoarthritis of left knee (ICD -10 - M17.12) Nov, Synovial cyst of popliteal space [Razo] , left knee (ICD-10 - M71.22) Nov, Acute pain of left knee (ICD-10 - M25.56 2) Nov, Lipoma of left lower extremity (ICD-10 - D17.24) PLAN OF TREATMENT Medication Medication Name Sig Start Date Stop Date Atorvastatin Calcium 40 MG 1 tablet Orally Once a day for 30 Treatment Notes Assessment Notes Clinical Notes Primary osteoarthritis of left knee -continue with conservat alf treatment measures including NSAIDs and home exercise program-MRI negative for meniscal pathology and demonstrates possible lipoma in area of swelling/mass-will proceed with kenalog/viscosupplementation injections of the left knee-f/u when approved for the visco injections Lipoma of left lower extremity -with continue with observati on at this time Next Appt Details f/u for left knee kenalog/viscosupplemen tation Reason: Provider Name:Orlando Burnett 2020-01-05 1 0:45:00 AM, [address], [address], [place], [address], Provider Name:Orlando Burnett 2020-01-12 0 2:30:00 PM, [address], [address], [place], [address], Insurance Providers Payer Name Payer Payer Insured Patient Coverage Coverage End Address Phone Name Relationship to Start Date Godfrey e Insured [facility] [phone] [facility] [address] [address] [facility] [phone]
--- OUTSIDE RECORDS SUMMARY | 2020-02-23 16:46 | XMS REPORT | Summary of Care ---
:1965 Author Organization [facility] Address [address] [place] [id number] Care Team Providers Name Role Phone Ana Unavailable Shanon Traore Primary Care Provider Reason for Referral MRI/CAT Scan (Routine) Status Reason Specialty Diagnoses / Referred By Referred To Procedures Contact Contact New Request Diagnostic Diagnoses Chest pain, unspecified type Cristina Short, Radiology Procedures CT CHEST PULMONARY ANGIOGRAM [address] [place] [address] [address] [place] [address] Reason for Visit Reason Comments Follow-up 5mo/ Hospital Follow up Encounter Details Date Type Department Care Team Description 12/22/2019 Office Visit [facility] Cristina Short M D Chest pain, unspecified type (Primary Dx ); Cardiology- [address] Essential hypertension; [address] [place] [address] Coronary-myocardial bridge; [facility], [address] Morbid obesity with body mass index of 4 0.0-49.9; [place], [place] [address] Dyslipidemia; [id number] LEN (obstructive sleep apnea); [phone] Type 2 di abetes mellitus without complication, without long-term current use of insulin Allergies Active Allergy Reactions Severity Noted Date Comments Sulfa (Sulfonamide Antibiotics) Anaphylaxis 6 documented as of this encounter (statuses as of 12/22/2019) Medications Medication Sig Dispensed Refills Start Date [...] 0 Active 50 mg tablet mouth daily. diclofenac 75 mg EC Take 1 tablet [...] every 20 per morning. capsuleIndications: Essential hypertension oxcarbazepine Take by mouth. 0 Active (TRILEPTAL ORAL) nitroglycerin 0.[address] 1 tablet 1 Bottle 5 12/22/19 Active sublingual under the tongue 20 tabletIndications: every 5 (five) Chest pain, minutes as needed unspecified type for Chest pain. pantoprazole 40 mg EC Take 1 tablet by 30 tablet 3 12/22/19 Active tabletIndications: mouth daily. 20 Chest pain, unspecified type nitroglycerin 0.[address] 1 tablet 1 Bottle 5 04/18/1911/26 Discontinued sublingual under the tongue 19 020 (R eorder) tabletIndications: every 5 (five) Chest pain, minutes as needed unspecified type for Chest pain. documented as of this encounter (statuses as of 12/22/2019) Active Problems Problem Noted Date LEN (obstructive sleep apnea) 07/14/2019 Essential hypertension 03/17/2016 Dyslipidemia 03/17/2016 Coronary-myocardial bridge 03/17/2016 Type 2 diabetes mellitus without complication, without long-term current 03/17/2016 use of insulin Tobacco abuse 03/17/2016 Morbid obesity with body mass index of 40.0-49.9 01/10 Chest pain 01/10/2016 documented as of this encounter (statuses as of 12/22/2019) Resolved Problems Problem Noted Date Resolved Date Obesity (BMI 30-39.9) 02/13/2016 07/02/2018 Morbid obesity with body mass index of 50 or higher 01/11/20 16 07/02/2018 documented as of this encounter (statuses as of 12/22/2019) Social History Tobacco Use Types Packs/Day Years Used Date Current Every Day Smoker Cigarettes 0.25 8 Smokeless Tobacco: Never Used Alcohol Use Drinks/Week oz/Week Comments No 0 Standard drinks or equivalent 0.0 Financial Resource Strain Answer Date Recorded How hard is it for you to pay for the very basics like Not h pretty at all 12/09/2019 food, housing, medical care, and heating? Food Insecurity Answer Date Recorded Within the past 12 months, you worried that your food would Never true 12/09/2019 run out before you got money to buy more. Within the past 12 months, the food you bought just didn't N ever true 12/09/2019 last and you didn't have money to get more. Transportation Needs Answer Date Recorded In the past 12 months, has lack of transportation kept you f rom No 12/09/2019 medical appointments or from getting medications? In the past 12 months, has lack of transportation kept you f rom No 12/09/2019 meetings, work, or getting things needed for daily living? Sex Assigned at Date Recorded Not on file COVID-19 Exposure Response Date Recorded In the last month, have you been in contact with No / Unsure 12/22/2019 4:16 PM CDT someone who was confirmed or suspected to have Coronavirus / COVID-19? documented as of this encounter Last Filed Vital Signs Vital Sign Reading Time Taken Comments Blood Pressure 131/76 12/22/2019 4:22 PM CDT Pulse 77 12/22/2019 4:22 PM CDT Temperature - - Respiratory Rate 19 12/22/2019 4:22 PM CDT Oxygen Saturation 100% 12/22/2019 4:22 PM CDT Inhaled Oxygen Concentration - - Weight 118.3 kg (260 lb 12.8 oz) 12/22/2019 4:22 PM CDT Height 160 cm (5' 3") 12/22/2019 4:22 PM CDT Body Mass Index 46.2 12/22/2019 4:22 PM CDT documented in this encounter Progress Notes Cristina Short MD - 12/22/2019 4:40 PM CDT CARDIOLOGY CLINIC NOTE 12/22/2019 Reason for Referral/Presenting Complaint: HTN, chest pain PCP: Alexus Traore History of Present Illness: Che Helton is a 54 years old female with history of morbid obesity, stroke, HTN, HLD, DM, and myocardial bridge. She has been seen by [facility] cardiology for chest pain with [facility] in 2016 showing LAD myocardial bridge. She has been having chronic intermittent chest pain. She was admitted to [facility] for chest pain. We stopped metoprolol and started cardizem. Stopped amlodipine. She was doing well for a while. Previous visit her BP was elevated. We increased cardizem and added dyazide. Her BP is normal now. BP 120-130s/60s. Not getting C-PAP yet. In 11/2019 she was admitted to [facility] for chest pain. ID ruled out. Yesterday she started to have chestpain at night, intermittent, pressure, radiating to the left arm, rated 9/10, worse with deep breath, dyspnea when lying flat, associated with headache. Review of Systems: General: (-) fever, (-) chills, (+) weight change, (-) dizziness, (-) fatigue Skin: (-) rash HEENT: (+) headache, (-) change in vision Neck: (-) difficulty swallowing Heme: negative Resp: (-) cough, (+) dyspnea on exertion Cardio: (-) chest pain, (-) palpitations, (-) syncope GI: (-) vomiting, (-) diarrhea : negative Endo: (+) diabetes, (-) thyroid disease Neuro: (-) numbness, (-) tingling, (-) weakness Back: (-) pain TIFFANIE: (-) muscle pain, (-) claudication Psych: (-) anxiety, (-) depression Past Medical History: Past Medical History: Diagnosis Date Coronary-myocardial bridge DM (diabetes mellitus) High cholesterol HTN (hypertension) Obesity (BMI 30-39.9) Stroke august 2015 tPa was given Current Medications: Current Outpatient Medications Medication Sig Dispense Refill nitroglycerin 0.[address] 1 tablet under the tongue every 5 (five) minutes as needed for Chest pain. 1 Bottle 5 pantoprazole 40 mg EC tablet Take 1 tablet by mouth daily. 30 tablet 3 triamterene-hydrochlorothiazide 37.5-25 mg per capsule Take 1 capsule by mouth every morning. 90capsule 0 diltiazem 360 mg 24 hr capsule Take 1 capsule by mouth daily. 30 capsule 5 clopidogreL 75 mg tablet Take 1 tablet by mouth daily. 30 tablet 5 diclofenac 75 mg EC tablet Take 1 tablet by mouth 2 (two) times daily with meals. 60 tablet 1 QUEtiapine (SEROQUEL) 50 mg tablet Take 50 mg by mouth daily. amitriptyline 25 mg tablet Take 25 mg by mouth at bedtime as needed for Insomnia. gabapentin (NEURONTIN) 300 mg capsule Take 1 capsule by mouth 3 (three) times daily. (Patient taking differently: Take 300 mg by mouth 3 (three) times daily as needed for Pain (scale 1-3) or Pain (scale 4-6) (Neuropathy pain).) 90 capsule 0 aspirin 81 mg chewable tablet Take 81 mg by mouth daily. atorvastatin (LIPITOR) 40 mg tablet Take 40 mg by mouth at bedtime. DULoxetine (CYMBALTA) 30 mg capsule Take 30 mg by mouth daily. metFORMIN (GLUCOPHAGE) 1,000 mg tablet Take 500 mg by mouth 2 (two) times daily with meals. oxcarbazepine (TRILEPTAL ORAL) Take by mouth. HYDROcodone-acetaminophen (NORCO) 10-325 mg tablet Take 1 tablet by mouth every 6 (six) hours asneeded for Pain (scale 7-10). No current facility-administered medications for this visit. Social History: Social History Socioeconomic History Marital status: Spouse name: Not on file Number of children: Not on file Years of education: Not on file Highest education level: Not on file Occupational History Not on file Social Needs Financial resource strain: Not hard at all Food insecurity Worry: Never true Inability: Never true Transportation needs Medical: No Non-medical: No Tobacco Use Smoking status: Current Every Day Smoker Packs/day: 0.25 Years: 8.00 Pack years: 2.00 Types: Cigarettes Smokeless tobacco: Never Used Substance and Sexual Activity Alcohol use: No Alcohol/week: 0.0 standard drinks Drug use: No Sexual activity: Yes control/protection: Other-see comments Comment: Hysterectomy Lifestyle Physical activity Days per week: Not on file Minutes per session: Not on file Stress: Not on file Relationships Social connections Talks on phone: Not on file Gets together: Not on file Attends yazidi service: Not on file Active member of club or organization: Not on file Attends meetings of clubs or organizations: Not on file Relationship status: Not on file Intimate partner violence Fear of current or ex partner: Not on file Emotionally abused: Not on file Physically abused: Not on file Forced sexual activity: Not on file Other Topics Concern Not on file Social History Narrative Not on file Family History Family History Problem Relation Age of Onset Hypertension Mother Diabetes Mother CHF (congestive heart failure) Father 68 ID Arrhythmia Daughter 20 of "QT" Physical Examination: Vitals: 12/22/19 1622 BP: 131/76 BP Location: Left arm Patient Position: Sitting BP CUFF SIZE: Adult Large Pulse: 77 Resp: 19 SpO2: 100% Weight: 260 lb 12.8 oz (118.3 kg) Height: 5' 3" (1.6 m) Constitutional: alert and oriented x 3 (person, place and date/time); no apparent distress, obese ENT: normocephalic atraumatic, supple, no lymphadenopathy, no bruits, no JVD Lungs: clear to auscultation bilaterally Cardiovascular: S1, S2 normal, regular; no murmurs, rubs or gallops GI: soft; non-tender; non-distended; normoactive bowel sounds : not examined Musculoskeletal: Extremities: no clubbing, cyanosis, or edema Skin: no rashes Neuro: no focal deficits Cardiovascular testing: EKG: Normal sinus rhythm. LVH. Echocardiogram: Normal LV size with moderate LVH Preserved LV systolic function. Diastolic function is pseudonormal Mild LA enlargement Insufficient Tricuspid regurgitation jet to estimate RVSP. Cardiac Cath: 2015 No obstructive CAD. LAD bridge. [place]--04/2018 Chest pain--Venous duplex neg Assessment/Plan: ICD-10-CM ICD-9-CM 1. Chest pain, unspecified type R07.9 786.50 2. Essential hypertension I10 401.9 3. Coronary-myocardial bridge Q24.5 746.85 4. Morbid obesity with body mass index of 40.0-49.9 E66.01 278.01 5. Dyslipidemia E78.5 272.4 6. LEN (obstructive sleep apnea) G47.33 327.23 7. Type 2 diabetes mellitus without complication, without long-term current use of insulin E11.9 250.00 Chest pain--uncertain etiology. Worse with deep breath. Will get CT chest angiogram to assess pulmonary etiology. Will add Protonix. Advised non cardiac evaluation--GI. PRN NTG--did not help during last admission. If NTG helps, will add Imdur. Myocardial bridge--continue cardizem. LEN--refer to sleep clinic. C-PAP will help with BP control. HTN--Now controlled. Will continue cardizem at 360 mg daily. Will continue dyazide 37.5/25 mg daily.Daily BP log. Low salt diet. HLD--on lipitor Morbid obesity--discussed diet, exercise and weight loss. RTC 3 months. Patient was counseled for lifestyle modifications including: diet, exercise and weight loss. Cristina Short MD, FACC, SIOBHAN Redevelopment Manager, Division of Cardiology [facility] documented in this encounter Plan of Treatment Date Type Specialty Care Team Description 03/23/2020 Office Visit Cardiology Cristina Short M D [address] [facility] [address] [place] [address] [phone] Name Type Priority Associated Diagnoses Order S chedule CT CHEST PULMONARY IMAGING Routine Chest pain, unspecifie d 1 Occurrences starting ANGIOGRAM type 12/22/2019 unti l 02/21/2020 Health Maintenance Due Date Last Done Comments [...] Recombinant Vaccine 12/02/2015 (SHINGRIX) (1 of 2) LDL-C 01/10/2017 01/11/2016 INFLUENZA VACCINE (#1) 2019 HgA1C 06/07/2020 12/08/2019, 01/10/2016 CREATININE (SERUM) 12/08/2020 12/09/2019, 12/08/2019, 12/20/2018, Additional history exists documented as of this encounter Implants Implanted Type Area Product Development Engineer Device Shelf Model / Identifier Expiration Date Ser ial / Lot Phalinx Cannulated [facility] [id number] / Implanted: Qty: 1 on 07/22/2018 by Andrew Romero Jr., DPM at [facility] [employer] 0 / 0 Kwire 0.9mm X 102mm [facility] [id number] / Implanted: Qty: 1 on 07/22/2018 by Andrew Romero Jr., DPM at [facility] [employer] 0 / 0 documented as of this encounter Results Not on filedocumented in this encounter Visit Diagnoses Diagnosis Chest pain, unspecified type - Primary Essential hypertension Unspecified essential hypertension 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
--- OUTSIDE RECORDS SUMMARY | 2020-02-23 16:46 | XMS REPORT ---
:[address] [facility] Address [address], [address] [place] [address] Care Team Providers Name Role Phone Burnett Unavailable [phone] PROBLEMS Type Condition ICD9-CM [id number] Onset Condition SNOMED Code Notes Code Code Dates Status Problem Controlled type 2 E11.9 Active 861063889 diabetes mellitus without complication, without long-term current use of insulin Problem Bipolar affective F31.30 Active 911110308 disorder, current episode depressed, current episode severity unspecified Problem Depression with F41.8 Active 70827701 anxiety Problem Chronic pain G89.4 Active 907740861 syndrome Problem HTN I10 Active 59968350 (hypertension), benign Problem Primary M17.12 Active [id number] osteoarthritis of left knee Problem Seasonal J30.2 Active 731468736 allergies Problem Hypercalcemia E83.52 Active 75522113 Problem Mixed E78.2 Active 337257955 hyperlipidemia Problem Neuropathy G62.9 Active 762930278 Problem GERD without K21.9 Active 595422450 esophagitis Problem History of CVA Z86.73 Active 268306500 (cerebrovascular accident) without residual deficits Problem Constipation, K59.00 Active 45235825 unspecified constipation type ALLERGIES Allergen (clinical drug Drug/Non Drug Allergy Reaction Allergy Type Onset Date Status ingredient) documented on EMR Sulfa Unknown Drug Allergy Active ENCOUNTERS from 1965 to 2019-12-14 Encounter Location Date Provider Diagnosis [facility] [address] [place] Nov, Orlando Burnett Bipolar a [address] [place], disorder, [place] [address] episode depres sed, current episode severity unspec ified F31.30 ; Nonint ractable headache, unspe cified chronicity shira wilson, unspecified hea dache type R51 ; Depr ession with anxiety F4 1.8 ; HTN (hypertensi on), benign I10 ; Co ntrolled type 2 diabetes mellitus withou t complication, w ithout long-term curre nt use of insulin E11. 9 ; Mixed hyperlipi demia E78.2 ; Seasona l allergies J30.2 ; Chronic pain sy ndrome G89.4 ; Neuropa thy G62.9 ; History of CVA (cerebrovascula r accident) witho ut residual defici ts Z86.73 ; GERD w ithout esophagitis K21 .9 ; Constipation, unspecified constipation ty pe K59.00 ; Noncom pliance w/medication tr eatment due to intermit use of medication Z91. 14 and Hypercalcemia E 83.52 IMMUNIZATIONS Vaccine Route Administration Date Status Flucelvax [...] No Information VITAL SIGNS Height 63 in Nov, Weight 258.9 lbs Nov, Temperature 96.8 degrees Fahrenheit Nov, BMI 45.86 kg/m2 Nov, Oximetry 96 % Nov, Respiratory Rate 18 /min Nov, Blood pressure systolic 134 mm Hg Nov, Blood pressure diastolic 60 mm Hg Nov, MEDICATIONS Medication SIG (Take, Route, Start Date End Date Status Frequency, Duration) Sumatriptan Succinate 25 MG 1 tablet at least 2 hours Active between doses as needed Orally Twice a day Amitiza 24 MCG TAKE ONE CAPSULE BY MOUTH Active TWICE DAILY WITH FOOD AND WATER for 30 Ondansetron 4 MG 1 tablet on the tongue and Active allow to dissolve Orally Once a day for 30 day(s) Diltiazem HCl ER Coated Beads TK 1 C PO D Oral Active 180 MG Pcqsmrnhhp-YSM-Bliprpmq 1 capsule as needed Orally Active 50-325-40 MG every 4 hrs Gabapentin 300 MG 1 capsule Orally TID Ac tive Linzess 290 MCG 1 capsule at least 30 Act alf minutes before the first meal of the day on an empty stomach Orally Once a day for 90 Hydrocodone-Acetaminophen as directed Orally Active 7.5-500 MG Amitiza 24 MCG 1 capsule with food and Ac tive water Orally Twice a day Quetiapine Fumarate 100 MG 1 tablet Orally Once a day Active Dyazide 37.5-25 MG 1 capsule in the morning Active Orally Once a day Plavix 75 MG 1 tablet Orally Once a day A ctive for 30 days Metformin HCl 1000 MG 1 tablet with a meal Active Orally Twice a day for 30 days Cyclobenzaprine HCl 10 MG 1 tablet as needed Orally Active Three times a day Duloxetine HCl 30 MG 1 capsule Orally Once a Active day Diclofenac Sodium 100 MG 1 tablet with food or milk Active Orally Once a day Oxcarbazepine 300 MG 1 tablet Orally Twice a Active day Atorvastatin Calcium 40 MG 1 tablet Orally Once a day Active for 90 days Nexium 40 MG 1 capsule Orally Once a Acti ve day for 30 days Amitriptyline HCl 25 MG 1 tablet at bedtime Orally Active Once a day PROCEDURES No Information RESULTS No Results REASON FOR VISIT [facility], f/u for chest pain & stress. In office. MEDICAL (GENERAL) HISTORY Type Description Date Medical [...] stroke Medical History history of heart attack Surgical History Gastric Sleeve 2015 Surgical History Left Foot 2017 Surgical History Fibroid Cysts 2017 Surgical History left knee(Jenny) 2012 Surgical History left foot [place] 2014 Hospitalization History chest pain 03/2018 Goals Section No Information Health Concerns No Information MEDICAL EQUIPMENT No Information MENTAL STATUS No Information FUNCTIONAL STATUS No Information ASSESSMENTS Encounter Date Diagnosis Notes Nov, Bipolar affective disorder, current epis ode depressed, current episode severity unspecified (ICD-10 - F 31.30) Nov, Constipation, unspecified constipation t ype (ICD-10 - K59.00) Nov, GERD without esophagitis (ICD-10 - K21.9 ) Nov, Depression with anxiety (ICD-10 - F41.8) Nov, Hypercalcemia (ICD-10 - E83.52) Nov, Nonintractable headache, unspecified chr onicity pattern, unspecified headache type (ICD-10 - R51) Nov, Noncompliance w/medication treatment due to intermit use of medication (ICD-10 - Z91.14) Nov, Chronic pain syndrome (ICD-10 - G89.4) Nov, History of CVA (cerebrovascular accident ) without residual deficits (ICD-10 - Z86.73) Nov, Neuropathy (ICD-10 - G62.9) Nov, Controlled type 2 diabetes mellitus with out complication, without long-term current use of insulin (ICD-10 - E11.9) Nov, HTN (hypertension), benign (ICD-10 - I10 ) Nov, Seasonal allergies (ICD-10 - J30.2) Nov, Mixed hyperlipidemia (ICD-10 - E78.2) PLAN OF TREATMENT Medication Medication Name Sig Start Date Stop Date Quetiapine Fumarate 100 MG 1 tablet Orally Once a day Atorvastatin Calcium 40 MG 1 tablet Orally Once a day for 90 days Amitiza 24 MCG 1 capsule with food and water Orally Twice a day Hydrocodone-Acetaminophen 7.5-500 MG as directed Orally Plavix 75 MG 1 tablet Orally Once a day for 30 days Diltiazem HCl ER Coated Beads 180 MG TK 1 C PO D Oral Metformin HCl 1000 MG 1 tablet with a meal Orally Twice a day for 30 days Gabapentin 300 MG 1 capsule Orally TID Duloxetine HCl 30 MG 1 capsule Orally Once a day Nexium 40 MG 1 capsule Orally Once a day for 30 days Dyazide 37.5-25 MG 1 capsule in the morning Orally Once a day Cyclobenzaprine HCl 10 MG 1 tablet as needed Orally Three times a day Diclofenac Sodium 100 MG 1 tablet with food or milk Orally Once a day Oxcarbazepine 300 MG 1 tablet Orally Twice a day Amitriptyline HCl 25 MG 1 tablet at bedtime Orally Once a day Treatment Notes Assessment Notes Clinical Notes Bipolar affective disorder, current Managed by [facility]. episode depressed, current episode severity unspecified Nonintractable headache, ED Course reviewed with patient. unspecified chronicity pattern, Education given. Keep OLSON Abiola ry. unspecified headache type Discussed medication overuse OLSON. Monitor medications intake. Discussed DDX. F/u Cardio, BP adjustments. Depression with anxiety Managed by [facility]. No rx for Benzo from [facility]. Patient verbalized understnading. Last Xanax >30 days ago. , -- Depression Education: Depression is a brain disease that makes you sad, but it is different than normal sadness. Depressed people feel down most of the time for at least 2 weeks. They also have at least one of these 2 symptoms: 1. They no longer enjoy or care about doing the things they used to like to do. 2. They feel sad, down, hopeless, or cranky most of the day, almost every day. It can also make you: lose or gain weight; sleep too much or too little; fell tired or like you have no energy; feel guilty or like you are worth nothing; forget things or feel confused; and think about or suicide. Medication and/or seeing a counselor (such as a psychiatrist, psychologist, nurse or social sciences department chair) may be necessary to treat depression. Both treatments take time to work. If you ever feel like you might hurt yourself or some else, then call your doctor or call 911 or go to the ER. HTN (hypertension), benign Instructed to measure BP at home and bring in log. Education given. Managed by Cardio. Education given. Controlled type 2 diabetes mellitus Controlled. Continue cu rrent without complication, without regimen. Diabetes Education long-term current use of insulin Diabetes is a disorder that disrupts the way your body uses glucose (sugar). It is a chronic medication condition that requires regular monitoring and treatment throughout your life. Treatment includes: lifestyle modification, self-care measures, and medication. Fortunately, these treatments can keep the blood sugar levels close to normal and minimize the risk of developing complications. The primary blood test to measure the progress of diabetes is the Hemoglobin A1c. Normal levels is less than 7.0 but less than 6.5 is considered excellent control. Fasting blood sugars should be in the range of 80-120 while random blood sugars should range below 200 especially after meals. Carbohydrate (sugar) intake for diabetics should be below 45 grams per meal and 15 grams per snack. Diabetic preventive care is vital to prevent complications, so it is important to have yearly diabetic eye and foot exams with specialists. If your diabetes is not controlled, then contact your doctor to further address.Medication may need to be adjusted and/or added. Mixed hyperlipidemia Changed to Lipitor. Tolerating well. Education given. Hyperlipidemia Education: Hyperlipidemia refers to increased levels of lipids(fats) in the blood, including cholesterol and triglycerides. This can significantly increase your risk of developing coronary artery disease and peripheral artery disease. This can cause chest pain, heart attack, stroke, and fatigue. Treatment is recommended to decrease your risk. Treatment includes: lifestyle modification, low salt/low fat diet, exercise, tobacco cessation, low alcohol intake and sometimes medication. Blood tests (TC,TG, HDL, LDL) are utilized to determine treatment regimens. TC(Total cholesterol) should be below 200. TG(Total Triglycerides) should be below 150. HDL(Good cholesterol) should be above 40. LDL(Bad Cholesterol) should be below 130(if you have one risk factor) or less than 100( if you have more than one risk factor or have DM/CAD/PVD). Compliance with medication and treatment is vital. If you have questions, talk to your doctor. Chronic pain syndrome Managed by [facility]. Neuropathy Managed by [facility]. GERD without esophagitis Refill given. 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 Patient verbalized understanding. Constipation, unspecified Refill given. Samples given. Side constipation type effect discussed. Hypercalcemia Discussed DDX. Education givne. Asymptomatic. Encouraged to make dietary changes. Will repeat Treatment Notes Test Name Order Date Lipid Panel With LDL/HDL Ratio 2019-12-14 PTH, Intact 2019-12-14 Calcium, Ionized, Serum 2019-12-14 Microalbumin/Creat Ratio, Random Ur 2019-12-14 Hemoglobin A1c 2019-12-14 Comp. Metabolic Panel (14) (CMP) 2019-12-14 CBC With Differential/Platelet 2019-12-14 TSH reflex to T4F 2019-12-14 Next Appt Details 4 Weeks + Labs 1 week Reason: Provider Name:Long Sullivan 2019-12-17 0 2:00:00 PM, [address] [facility] , [address], [place], [address], Provider Name:Orlando Burnett 2020-01-05 1 0:45:00 AM, [address], [address], [place], [address], Provider Name:Orlando Burnett 2020-01-12 0 2:30:00 PM, [address], [address], [place], [address], Insurance Providers Payer Name Payer Payer Insured Patient Coverage Coverage End Address Phone Name Relationship to Start Date Godfrey e Insured [facility] [phone] [facility] [id number] [address] [facility] [id number]
--- OUTSIDE RECORDS SUMMARY | 2020-02-23 16:46 | XMS REPORT | Summary of Care ---
:1965 Author Organization [facility] Address [address] [place] [address] Care Team Providers Name Role Phone Ana Unavailable Shanon Traore Primary Care Provider Reason for Referral MRI/CAT Scan (Routine) Status Reason Specialty Diagnoses / Referred By Referred To Procedures Contact Contact New Request Diagnostic Diagnoses Chest pain, unspecified type Cristina Short, Radiology Procedures CT CHEST PULMONARY ANGIOGRAM [address] [place] [address] [address] [place] [address] Reason for Visit Reason Comments Follow-up 5mo/ Hospital Follow up Encounter Details Date Type Department Care Team Description 12/22/2019 Office Visit [facility] Cristina Short M D Chest pain, unspecified type (Primary Dx ); Cardiology- [address] Essential hypertension; [address] [place] [address] Coronary-myocardial bridge; [facility], [address] Morbid obesity with body mass index of 4 0.0-49.9; [place], [place] [address] Dyslipidemia; [address] LEN (obstructive sleep apnea); [phone] Type 2 di abetes mellitus without complication, [...] myocardial bridge. She has been seen by [facility] cardiology for chest pain with [facility] in 2016 showing LAD myocardial bridge. She has been having chronic intermittent chest pain. She was admitted to [facility] for chest pain. We stopped metoprolol and started cardizem. Stopped amlodipine. She was doing well for a while. Previous visit her BP was elevated. We increased cardizem and added dyazide. Her BP is normal now. BP 120-130s/60s. Not getting C-PAP yet. In 11/2019 she was admitted to [facility] for chest pain. AR ruled out. Yesterday she started to have [...] file Gets together: Not on file Attends gnosticist service: Not on file Active member of [...] Mother CHF (congestive heart failure) Father 68 [place] Arrhythmia Daughter 20 of "QT" Physical Examination: [...] weight loss. Cristina Short MD, FACC, SIOBHAN Environmental Engineer Scientist, Division of Cardiology [facility] documented in this encounter Plan of Treatment Date Type Specialty Care Team Description 03/23/2020 Office Visit Cardiology Cristina Short M D [address] [facility] [address] [place] [address] [phone] Name Type Priority Associated Diagnoses Order S [...] of this encounter Implants Implanted Type Area Credit Analyst Device Shelf Model / Identifier Expiration Date Ser ial / Lot Phalinx Cannulated [facility] [id number] / Implanted: Qty: 1 on 07/22/2018 by Andrew Romero Jr., DPM at [facility] [employer] 0 / 0 Kwire 0.9mm X 102mm [facility] [id number] / Implanted: Qty: 1 on 07/22/2018 by Andrew Romero Jr., DPM at [facility] [employer] 0 / 0 [...] Effective Dates Phone Addre ss Type Group [facility] STAR [id number] 2018-Present Medicaid COMM PLAN - PLUS MANAGED MEDICAID documented as of this encounter
--- OUTSIDE RECORDS SUMMARY | 2020-02-23 16:46 | XMS REPORT | Summary of Care ---
:1965 Author Organization [facility] [employer] Address [address] [place] [address] Care Team Providers Name Role Phone Ana Unavailable Shanon Traore Primary Care Provider Reason for Visit Reason Comments Results echo Encounter Details Date Type Department Care Team Description 12/10/2019 Telephone [facility] Cardiology- Amrit Short MD Results (echo) [place] [address] [facility] [address] [facility], [address] [place] [address] [place] [address] [phone] Allergies Active Allergy Reactions Severity Noted Date Comments Sulfa (Sulfonamide Antibiotics) Anaphylaxis 6 documented as of this encounter (statuses as of 12/10/2019) Medications Medication Sig Dispensed Refills Start Date [...] mg per every morning. capsuleIndications: Essential hypertension oxcarbazepine (TRILEPTAL Take by mouth. 0 Active ORAL) documented as of this encounter (statuses as of 12/10/2019) Active Problems Problem Noted Date LEN (obstructive sleep apnea) 07/14/2019 Essential hypertension 03/17/2016 Dyslipidemia 03/17/2016 Coronary-myocardial bridge 03/17/2016 Type 2 diabetes mellitus without complication, without long-term current 03/17/2016 use of insulin Tobacco abuse 03/17/2016 Morbid obesity with body mass index of 40.0-49.9 01/10 Chest pain 01/10/2016 documented as of this encounter (statuses as of 12/10/2019) Resolved Problems Problem Noted Date Resolved Date Obesity (BMI 30-39.9) 02/13/2016 07/02/2018 Morbid obesity with body mass index of 50 or higher 01/11/20 16 07/02/2018 documented as of this encounter (statuses as of 12/10/2019) Social History Tobacco Use Types Packs/Day Years [...] been in contact with No / Unsure 12/08/2019 6:07 PM CDT someone who was confirmed or suspected to have Coronavirus / COVID-19? documented as of this encounter Last Filed Vital Signs Not on filedocumented in this encounter Miscellaneous Notes Telephone Encounter - Shayy Monroy RN - 12/10/2019 4:16 PM CDT Patient notified of results/recommendations, understanding was verbalized via teach back. Appointment scheduled for 12/21. ECHO showed septum thickening. Recommend f/u with me in weeks. documented in this encounter Plan of Treatment Date Type Specialty Care Team Description 12/22/2019 Office Visit Cardiology Cristina Short M D [address] [place] [address] [phone] Health Maintenance Due Date Last Done Comments [...] of this encounter Implants Implanted Type Area Motor Equipment Sergeant Device Shelf Model / Identifier Expiration Date Ser ial / Lot Phalinx Cannulated [facility] [id number] / Implanted: Qty: 1 on 07/22/2018 by Andrew Romero Jr., DPM at [facility] [employer] 0 / 0 Kwire 0.9mm X 102mm [facility] [id number] / Implanted: Qty: 1 on 07/22/2018 by Andrew Romero Jr., DPM at [facility] [employer] 0 / 0 documented as of this encounter Results Not on filedocumented in this encounter Insurance Payer Benefit Plan / Subscriber ID Effective Dates Phone Addre ss Type Group [facility] STAR [id number] 2018-Present Medicaid COMM PLAN - PLUS MANAGED MEDICAID [facility] STAR [id number] 2019-Present Medicaid COMM PLAN - MANAGED MEDICAID documented as of this encounter
--- OUTSIDE RECORDS SUMMARY | 2020-02-23 16:46 | XMS REPORT | Summary of Care ---
:1965 Author Organization [facility] - [facility] Address [address] [place] [address] Care Team Providers Name Role Phone Ana Unavailable Shanon Traore Primary Care Provider Reason for Referral (Routine) Status Reason Specialty Diagnoses / Referred By Referred To Procedures Contact Contact New Request Echocardiograph Diagnoses Chest pain, unspecified type Han, Qiangjun, Procedures ECHO ROUTINE W/DOPPLER COLOR [address] [facility] [address] [place] [address] Radiology Services (STAT) Status Reason Specialty Diagnoses / Referred By Referred To Procedures Contact Contact New Request Diagnostic Diagnoses Chest pain, unspecified type Louisa Fulton, Radiology Procedures XR CHEST [address] [facility]. [address] [place] [address] Reason for Visit Reason Comments Chest Pain Auth/Cert Status Reason Specialty Diagnoses / Referred By Referred To Procedures Contact Contact Emergency Medicine Adc Em ergency Dept [address] [place] [address] Fax: Encounter Details Date Type Department Care Team Description 12/08/2019 - Emergency ADC Medicine Surgery Gaurav Fulton lluma, DO [address] [facility]. [address] [place], [place] [id number] Chest pain 12/09/2019 Unit Ilana Beal MD [address] [place] [id number] [phone] [place] [address] [place], [place] [id number] Allergies Active Allergy Reactions Severity Noted Date Comments Sulfa (Sulfonamide Antibiotics) Anaphylaxis 6 documented as of this encounter (statuses as of 12/09/2019) Medications Medication Sig Dispensed Refills Start Date [...] as of this encounter (statuses as of 12/09/2019) Active Problems Problem Noted Date LEN (obstructive sleep apnea) 07/14/2019 Essential hypertension 03/17/2016 Dyslipidemia 03/17/2016 Coronary-myocardial bridge 03/17/2016 Type 2 diabetes mellitus without complication, without long-term current 03/17/2016 use of insulin Tobacco abuse 03/17/2016 Morbid obesity with body mass index of 40.0-49.9 01/10 Chest pain 01/10/2016 documented as of this encounter (statuses as of 12/09/2019) Resolved Problems Problem Noted Date Resolved Date Obesity (BMI 30-39.9) 02/13/2016 07/02/2018 Morbid obesity with body mass index of 50 or higher 01/11/20 16 07/02/2018 documented as of this encounter (statuses as of 12/09/2019) Social History Tobacco Use Types Packs/Day Years Used Date Current Every Day Smoker Cigarettes 0.25 8 Smokeless Tobacco: Never Used Tobacco Cessation: Ready to Quit: Yes; C ounseling Given: Yes Alcohol Use Drinks/Week oz/Week Comments No 0 [...] Sign Reading Time Taken Comments Blood Pressure 101/51 12/09/2019 11:26 AM CDT Pulse 75 12/09/2019 11:26 AM CDT Temperature 36.4 C (97.5 F) 12/09/2019 11:26 AM CDT Respiratory Rate 20 12/09/2019 11:26 AM CDT Oxygen Saturation 100% 12/09/2019 11:26 AM CDT Inhaled Oxygen Concentration - - Weight 118 kg (260 lb 1.6 oz) 12/09/2019 3:40 AM CDT Height - - Body Mass Index 46.07 11/01/2019 9:11 PM CDT documented in this encounter Discharge Instructions AttachmentsThe following attachments cannot be sent through Care Everywhere. Angina, Unstable (Egyptian)Chest Pain, Uncertain Cause (Egyptian)documented in this encounter Progress Notes Sheila Raphael, TIFFANIE - 12/09/2019 9:05 AM CDTSubjective Patient ID: Che Helton is a 54 year old female. Care Management Social Functional Assessment Patient Name: Che Helton Age: [age] year old Sex: female Previous admit date: N/A Current diagnosis and co-morbidities: Chest pain Readmission Questions: Was patient discharged from any acute care hospital within the last 30 days: No Social Functional Assessment: Primary language spoken/preferred: Egyptian Mental Status: Alert & Oriented to Person,Place & Time Information given by: Self Patient's support system: Child Name and number of support system: Nafisa Logan dtr [phone] Primary Director Social: Self MPOA: No Living Arrangement: Home Address of living arrangement : [address] [place] [address] [id number] [facility] [address] Persons living in home: Self Barriers to returning home: None Baseline functional status- ambulation: Independent Functional status-baseline personal care: Independent Baseline functional status- driving: Independent Baseline functional status- grocery shopping: Requires minimal to moderate assistance Functional status-baseline housekeeping: Requires minimal to moderate assistance Functional status-baseline meal prep: Requires minimal to moderate assistance Current functional status same as prior: Yes Do you have a PCP?: Yes Name of PCP: Dr Burnett [facility] Agency: No Provider Services: Yes Provider Agency: Assurance Provider agency days and hours: 54 hours per week, daily care DME Company: No Equipment: None Hemodialysis: No Community resources utilized: None Funding Resources: Medicaid HMO Prescription coverage plan: Medicaid unlimited slots Pharmacy where meds are filled: Other Other pharmacy: [facility] Anticipated services prior to disharge: Continue Medical Eval Expected mode of discharge transportation: Same as support system Additional Recommendations for DC: Medical clearance Additional info required for discharge planning: Pending medical evaluation Recommended discharge plan: Home SFA Complete: Social Functional Assessment complete: Yes Alcohol Use Screening (AUDIT-C) How often do you have a drink containing alcohol?: Never SCORE: 0 Did patient elect to have resources provided: No Role of Care Management explained. Any issues or concerns with obtaining/affording your medications at home: no. Are you or your support system able to cone picker medications at discharge: yes. Review of Systems Objective Physical Exam Assessment/Plan Home. Provider services will resume TIFFANIE Rogers Software Architect - Care Management [facility] [phone] [email or web address] documented in this encounter H&P Notes Ilana Beal MD - 12/08/2019 9:44 PM CDT MEDICINE ADMIT H&P Date of Service: 12/08/2019 CHIEF COMPLAINT: chest pain History of Present Illness Patient is a 54 year old Black or female who presents with complaints of chest paindescribed as pressure and is similar to chest pain with last myocardial infarction. Symptoms started on today at 4 pm. Symptoms occurring at rest and with exertion. Pain with radiation to left arm.Patient has not attempted self treatment. Symptoms are worse with exertion. Other symptoms includediaphoresis, nausea, palpitations and shortness of breath. Patient denies vomiting. Symptoms are unchanged. [facility] in [address] Short. PAST MEDICAL HISTORY Past Medical History: Diagnosis Date Coronary-myocardial bridge DM (diabetes mellitus) High cholesterol HTN (hypertension) Obesity (BMI 30-39.9) Stroke august 2015 tPa was given Past Surgical History: Procedure Laterality Date SECTION HAMMERTOE CORRECTION Left 07/22/2018 Surgeon: Andrew Romero Jr., DPM; Location: [facility] OR [facility] LAPAROSCOPIC GASTRIC SLEEVE (SHX) February 2015 OTHER Uterine ablation WOUND DEBRIDEMENT N/A 10/02/2017 Surgeon: Chris Alvarado MD; Location: [facility] OR [facility] Family History Problem Relation Age of Onset Hypertension Mother Diabetes Mother CHF (congestive heart failure) Father 68 [place] Arrhythmia Daughter 20 of "QT" ALLERGIES Allergies Allergen Reactions Sulfa (Sulfonamide Antibiotics) Anaphylaxis MEDICATIONS No current facility-administered medications on file prior to encounter. Current Outpatient Medications on File Prior to Encounter Medication Sig Dispense Refill triamterene-hydrochlorothiazide 37.5-25 mg per capsule Take 1 capsule by mouth every morning. 90capsule 0 diltiazem 360 mg 24 hr capsule Take 1 capsule by mouth daily. 30 capsule 5 clopidogreL 75 mg tablet Take 1 tablet by mouth daily. 30 tablet 5 diclofenac 75 mg EC tablet Take 1 tablet by mouth 2 (two) times daily with meals. 60 tablet 1 nitroglycerin 0.[address] 1 tablet under the tongue every 5 (five) minutes as needed for Chest pain. 1 Bottle 5 QUEtiapine (SEROQUEL) 50 mg tablet Take 50 mg by mouth daily. amitriptyline 25 mg tablet Take 25 mg by mouth at bedtime as needed for Insomnia. HYDROcodone-acetaminophen (NORCO) 10-325 mg tablet Take 1 tablet by mouth every 6 (six) hours asneeded for Pain (scale 7-10). gabapentin (NEURONTIN) 300 mg capsule Take 1 [...] mouth 2 (two) times daily with meals. SOCIAL HISTORY Social History Socioeconomic History Marital status: Spouse name: Not on file Number of children: Not on file Years of education: Not on file Highest education level: Not on file Occupational History Not on file Social Needs Financial resource strain: Not on file Food insecurity Worry: Not on file Inability: Not on file Transportation needs Medical: Not on file Non-medical: Not on file Tobacco Use Smoking status: Current Every Day [...] file Gets together: Not on file Attends [employer] service: Not on file Active member of [...] file Social History Narrative Not on file REVIEW OF SYSTEMS (-)=Negative,(+)=Positive General: (-) fever, (-) chills, (-) fatigue, (-) malaise Skin: (-) rash HEENT: (-) headache, (-) nasal discharge, (-) sore throat Neck: (-) difficulty swallowing Heme: (-) bleeding disorder Resp: as stated in the HPI Cardio: as stated in the HPI GI: (+) nausea, (-) abdominal pain, (-) diarrhea, (-) constipation : (-) dysuria Endo: (-) diabetes, (-) thyroid disease Neuro: (-) numbness, (-) tingling Back: (-) pain TIFFANIE: (-) muscle pain, (-) joint pain Psych: (-) anxiety, (-) depression PHYSICAL EXAMINATION Vitals: 12/08/19 1930 12/08/19199912/08/19 2100 12/08/192123 BP: 130/72 133/69 111/60 124/70 Pulse: 77 77 83 82 Resp: 18 13 21 21 Temp: 35.9 C (96.7 F) TempSrc: Temporal Artery SpO2: 97% 95% 94% 98% Weight: General: alert and oriented; no apparent distress HEENT: normocephalic atraumatic Lungs: clear to auscultation bilaterally Cardio: S1, S2 normal; no murmurs, rubs or gallops Abdomen: soft; non-tender; non-distended; normoactive bowel sounds : not examined Rectal: not examined Extremities: no clubbing, cyanosis, or edema, left first toe amputation Skin: no rashes Neuro: cranial nerves II through XII grossly intact LABS - reviewed IMAGING - reviewed EKG- reviewed ASSESSMENT/PLAN Assessment: Chest pain r/o ACS H/O CAD Diabetes Mellitus type 2, controlled Hypertension, controlled Transaminitis Morbid Obesity with BMI of 40.74 Plan: Place in obs tele Consult cardiology Serial troponins ASA Oxygen, NITRO and MORPHINE PRN CMP in AM Reconcile home medications. Hold metformin and diclofenac. NSAIDs contraindicated in this patient SSI as needed for glucose control Further recommendations will depend on patient's hospital course Above assessment and plan discussed at length with the patient, patient expressed full understanding. Questions and concerns addressed. Advanced Care Planning The surrogate decision maker: Nafisa Schultz [phone] Code Status: home health care worker spent:16 minutes Tobacco user: Nicotine patch offered documented in this encounter Consult Notes Cristina Short MD - 12/09/2019 8:53 AM CDTAssociated Order(s): CONSULT CARDIOLOGY [facility] Cardiology Consult PCP: Alexus Traore Date of Service: 12/09/2019 CHIEF COMPLAINT/reason for consult: chest pain HISTORY OF PRESENT ILLNESS Che Helton is a 54 years old female with history of morbid obesity, stroke, HTN, HLD, DM, and myocardial bridge. She has been seen by [facility] cardiology for chest pain with [facility] in 2016 showing LAD myocardial bridge. She has been doing well with PO Cardizem. Yesterday while at rest, she experienced left sided chest pain, pressure, 10/10, radiating to the left arm, associated with SOB and sweating, lasting hours, improved with pain medication in ER. Tried NTG but without any improvement. C/o worsening chest pain with activity. No acute EKG changes. Troponin negative x 3. PAST MEDICAL HISTORY Past Medical History: Diagnosis Date Coronary-myocardial bridge DM (diabetes mellitus) High cholesterol HTN (hypertension) Obesity (BMI 30-39.9) Stroke august 2015 tPa was given Past Surgical History: Procedure Laterality Date SECTION HAMMERTOE CORRECTION Left 07/22/2018 Surgeon: Andrew Romero Jr., EMERY; Location: [facility] OR [facility] LAPAROSCOPIC GASTRIC SLEEVE (SHX) February 2015 OTHER Uterine ablation WOUND DEBRIDEMENT N/A 10/02/2017 Surgeon: Chris Alvarado MD; Location: [facility] OR [facility] Family History Problem Relation Age of Onset Hypertension Mother Diabetes Mother CHF (congestive heart failure) Father 68 [place] Arrhythmia Daughter 20 of "QT" ALLERGIES Allergies Allergen Reactions Sulfa (Sulfonamide Antibiotics) Anaphylaxis MEDICATIONS No current facility-administered medications on file prior to encounter. Current Outpatient Medications on File Prior to Encounter Medication Sig Dispense Refill oxcarbazepine (TRILEPTAL ORAL) Take by mouth. triamterene-hydrochlorothiazide 37.5-25 mg per capsule Take 1 capsule by mouth every morning. 90capsule 0 diltiazem 360 mg 24 hr capsule Take 1 capsule by mouth daily. 30 capsule 5 clopidogreL 75 mg tablet Take 1 tablet by mouth daily. 30 tablet 5 diclofenac 75 mg EC tablet Take 1 tablet by mouth 2 (two) times daily with meals. 60 tablet 1 nitroglycerin 0.[address] 1 tablet under the tongue every 5 (five) minutes as needed for Chest pain. 1 Bottle 5 QUEtiapine (SEROQUEL) 50 mg tablet Take 50 mg by mouth daily. amitriptyline 25 mg tablet Take 25 mg by mouth at bedtime as needed for Insomnia. HYDROcodone-acetaminophen (NORCO) 10-325 mg tablet Take 1 tablet by mouth every 6 (six) hours asneeded for Pain (scale 7-10). gabapentin (NEURONTIN) 300 mg capsule Take 1 [...] mouth 2 (two) times daily with meals. SOCIAL HISTORY Social History Socioeconomic History Marital status: Spouse [...] file Gets together: Not on file Attends [employer] service: Not on file Active member of [...] file Social History Narrative Not on file REVIEW OF SYSTEMS General: (-) fever, (-) chills, (-) weight change, (-) dizziness, (-) fatigue Skin: (-) rash HEENT: (-) headache, (-) change in vision Neck: (-) difficulty swallowing Heme: negative Resp: (-) cough, (-) dyspnea on exertion Cardio: (+) chest pain, (-) palpitations, (-) syncope GI: (-) vomiting, (-) diarrhea : negative Endo: (+) diabetes, (-) thyroid disease Neuro: (-) numbness, (-) tingling, (-) weakness Back: (-) pain TIFFANIE: (-) muscle pain, (-) claudication Psych: (-) anxiety, (-) depression PHYSICAL EXAMINATION Vitals: 12/08/19 2124 12/08/19 2304 12/09/19 0340 12/09/19 0747 BP: 124/70 112/50 92/41 109/48 Pulse: 82 105 89 78 Resp: Temp: 35.9 C (96.7 F) 36.2 C (97.2 F) 36.1 C (97 F) 36.2 C (97.2 F) TempSrc: Temporal Artery Temporal Artery Temporal Artery Tympanic SpO2: 98% 94% 96% 94% Weight: 118 kg (260 lb 1.6 oz) Constitutional: alert and oriented x 3 (person, place and date/time); no apparent distress, obese ENT: normocephalic atraumatic, supple, no lymphadenopathy, no bruits, no JVD Lungs: clear to auscultation bilaterally Cardiovascular: S1, S2 normal, regular; no murmurs, rubs or gallops GI: soft; non-tender; non-distended; normoactive bowel sounds : not examined Musculoskeletal: Extremities: no clubbing, cyanosis, or edema Skin: no rashes Neuro: no focal deficits LABS - reviewed pertinent labs as below: CBC BMP PT/INR WBC (10*3/L) Date Value 12/08/2019 6.33 NA (mmol/L) Date Value 12/09/2019 140 No results found for: PT PLT (10*3/L) Date Value 12/08/2019 287 K (mmol/L) Date Value 12/09/2019 3.7 INR (no units) Date Value 12/08/2019 1.1 HGB (g/dL) Date Value 12/08/2019 12.3 BUN (mg/dL) Date Value 12/09/2019 16 HCT (%) Date Value 12/08/2019 38.1 CREATININE (mg/dL) Date Value 12/09/2019 1.06 (H) LIPID PROFILE GLUCOSE (mg/dL) Date Value 12/09/2019 143 (H) CHOL (mg/dL) Date Value 01/11/2016 160 TSH LDL CHOL (mg/dL) Date Value 01/11/2016 96 TSH (mIU/L) Date Value 12/18/2016 3.87 CARDIAC ENZYMES HDL (mg/dL) Date Value 01/11/2016 30 (L) CK (U/L) Date Value 01/29/2015 151 (H) TRIG (mg/dL) Date Value 01/11/2016 171 (H) LFTs CK-MB (ng/mL) Date Value 01/29/2015 0.63 AST(SGOT) (U/L) Date Value 12/09/2019 40 TROPONIN I (ng/mL) Date Value 12/09/2019 <0.012 ALT(SGPT) (U/L) Date Value 07/16/2018 31 ALTv (U/L) Date Value 12/09/2019 44 (H) No results found for: BNP IMAGING - reviewed, pertinent results as below: CXR--clear EKG: normal sinus rhythm, ?lateral infarct, LVH ASSESSMENT/PLAN Principal Problem: Chest pain Active Problems: Morbid obesity with body mass index of 40.0-49.9 Essential hypertension Dyslipidemia Coronary-myocardial bridge Type 2 diabetes mellitus without complication, without long-term current use of insulin Tobacco abuse LEN (obstructive sleep apnea) Chest pain--Atypical, no response to NTG. Chest pain lasting hours without acute EKG changes or troponin elevation. Will get ECHO to assess LVEF and wall motion. Consider pain control per primary team.Doubt angina. LEN--referred to sleep clinic. HTN--Now controlled. Will continue cardizem at 360 mg daily. Will continue dyazide 37.5/25 mg daily.Daily BP log. Low salt diet. HLD--on lipitor Myocardial bridge--continue cardizem. Morbid obesity--discussed diet, exercise and weight loss. Thank you for allowing us to participate in the care of your patient. Please feel free to contact usfor any questions or if we can be of further assistance. Cristina Short MD, FACC, SIOBHAN Breaker Mechanic, Division of Cardiology [facility] documented in this encounter ED Notes Torri Monroy, - 12/08/2019 7:55 PM CDT Patient signed out pending results of labs and reeval. Patient states her chest pain is improving.. Was worse with activity when it started around 1600 today. Has h/o htn, dm, lipids, obesity, tobacco abuse and h/o CAD but no stents. Last had cardiac cath in December 2015. Patient had asa 81mg captain assistant so given 81mg x 3 here in the EC. Given ntg for pain as well. She is a patient of Dr. Short. Initial troponin negative. Creatinine and glucose ok. Will admit to medicine for continued management. Recent Results (from the past 24 hour(s)) TROPONIN I Collection Time: 12/08/19 6:34 PM Result Value Ref Range TROPONIN I <0.012 <=0.034 ng/mL aPTT Collection Time: 12/08/19 6:34 PM Result Value Ref Range APTT Patient 25 23 - 38 Seconds PROTHROMBIN TIME / INR Collection Time: 12/08/19 6:34 PM Result Value Ref Range PROTIME PATIENT 13.3 12.0 - 14.7 Seconds INR 1.1 COMP. METABOLIC PANEL (16259) Collection Time: 12/08/19 6:34 PM Result Value Ref Range NA 139 135 - 145 mmol/L K 4.1 3.5 - 5.0 mmol/L CL 105 98 - 108 mmol/L CO2 TOTAL 25 23 - 31 mmol/L AGAP 9 2 - 16 BUN 13 7 - 23 mg/dL GLUCOSE 103 70 - 110 mg/dL CREATININE 0.87 0.50 - 1.04 mg/dL TOTAL BILI 0.6 0.1 - 1.1 mg/dL CALCIUM 10.2 8.6 - 10.6 mg/dL T PROTEIN 8.6 (H) 6.3 - 8.2 g/dL ALBUMIN 4.4 3.5 - 5.0 g/dL ALK PHOS 113 34 - 122 U/L ALTv 55 (H) 5 - 35 U/L AST(SGOT) 59 (H) 13 - 40 U/L eGFR Calculation (Non-) 67.9 mL/min/1.73m2 eGFR Calculation () 82.2 mL/min/1.73m2 LIPASE, SERUM Collection Time: 12/08/19 6:34 PM Result Value Ref Range LIPASE 202 0 - 220 U/L CBC WITH DIFF Collection Time: 12/08/19 6:34 PM Result Value Ref Range WBC 6.33 4.30 - 11.10 10*3/L RBC 4.38 3.93 - 5.25 10*6/L HGB 12.3 11.6 - 15.0 g/dL HCT 38.1 35.7 - 45.2 % MCV 87.0 80.6 - 95.5 fL MCH 28.1 25.9 - 32.8 pg MCHC 32.3 31.6 - 35.1 g/dL RDW-SD 45.6 39.0 - 49.9 fL RDW-CV 14.3 12.0 - 15.5 % PLT 287 166 - 358 10*3/L MPV 10.3 9.5 - 12.9 fL NRBC/100 WBC 0.0 0.0 - 10.0 /100 WBCs NRBC x10^3 <0.01 10*3/L GRAN MAT (NEUT) % 59.8 % IMM GRAN % 0.30 % LYMPH % 33.3 % MONO % 4.4 % EOS % 1.7 % BASO % 0.5 % GRAN MAT x10^3(ANC) 3.78 1.88 - 7.09 10*3/uL IMM GRAN x10^3 <0.03 0.00 - 0.06 10*3/uL LYMPH x10^3 2.11 1.32 - 3.29 10*3/uL MONO x10^3 0.28 (L) 0.33 - 0.92 10*3/uL EOS x10^3 0.11 0.03 - 0.39 10*3/uL BASO x10^3 0.03 0.01 - 0.07 10*3/uL Hannah Gallegos RN - 12/08/2019 6:21 PM CDTPatient states she takes ASA 81mg daily Hannah Gallegos RN - 12/08/2019 6:16 PM CDTPatient arrived via private car with c/o CP that started today at about 4pm. Patient states that the pain is going down her left arm. Patient describes the CP as a "pressure". Louisa Nuñez DO - 12/08/2019 6:07 PM CDT EMERGENCY DEPARTMENT ENCOUNTER [facility] Patient Name: Che Helton Date of : 1965 54 year old Exam Room:TX6/TX6 Primary Care Physician: Alexus Traore Pre- Hospital Patient Escorted by: Self [9] Mode of Arrival: Personal means [1] EMS Treatment Prior to ED Arrival: Chief Complaint Chief Complaint Patient presents with Chest Pain HPI 54-year-old female with a past medical history of hypertension, CAD with DE at age 24, hyperlipidemia, diabetes presenting with chest pain that started at 4 PM. Patient states the pain is substernal with radiation down the left arm. She additionally attests to tingling in the lower extremities. Patient states that she sees Dr. Short for cardiology. She hasn't had a heart catheterization in greater than3 years or stress test greater than 2 years. She still has persistent chest pain. Rated as mild to moderate described as pressure. Past Medical History / Immunizations Past Medical History: Diagnosis Date Coronary-myocardial bridge DM (diabetes mellitus) High cholesterol HTN (hypertension) Obesity (BMI 30-39.9) Stroke august 2015 tPa was given Past Surgical History Past Surgical History: Procedure Laterality Date SECTION HAMMERTOE CORRECTION Left 07/22/2018 Surgeon: Andrew Romero Jr., DPM; Location: [facility] OR [facility] LAPAROSCOPIC GASTRIC SLEEVE (SHX) February 2015 OTHER Uterine ablation WOUND DEBRIDEMENT N/A 10/02/2017 Surgeon: Chris Alvarado MD; Location: [facility] OR [facility] Allergies Allergies Allergen Reactions Sulfa (Sulfonamide Antibiotics) Anaphylaxis Social History Tobacco Use Current Every Day Smoker; Smoked an average of 0.25 packs/day for 8 years; Smoked: Cigarettes. Smokeless Tobacco: Never used smokeless tobacco. Alcohol Use No. Drug Use No. Sexual Activity Sexually active; Control/Protection: Other-see comments. Comments: Hysterectomy Review of Systems Review of Systems Constitutional: Negative for chills, fatigue and fever. HENT: Negative for sore throat. Eyes: Negative for pain. Respiratory: Positive for chest tightness. Negative for cough, shortness of breath and stridor. Breasts: Negative for pain. Cardiovascular: Positive for chest pain. Negative for palpitations. Gastrointestinal: Negative for abdominal pain, constipation and diarrhea. Genitourinary: Negative for bladder incontinence, vaginal discharge and difficulty urinating. Musculoskeletal: Negative for back pain. Skin: Negative for color change and wound. Neurological: Negative for dizziness, seizures, weakness, light-headedness and headaches. Physical Exam BP 122/82 | Pulse 86 | Temp 36.4 C (97.6 F) (Oral) | Resp 20 | Wt 104.3 kg (230 lb) | SpO2 98% | BMI 40.74 kg/m Physical Exam Vitals signs and nursing note reviewed. Constitutional: General: She is not in acute distress. Appearance: She is well-developed. She is obese. She is not diaphoretic. HENT: Head: Normocephalic and atraumatic. Right Ear: External ear normal. Left Ear: External ear normal. Nose: Nose normal. Eyes: General: No scleral icterus. Conjunctiva/sclera: Conjunctivae normal. Pupils: Pupils are equal, round, and reactive to light. Neck: Musculoskeletal: Normal range of motion and neck supple. Cardiovascular: Rate and Rhythm: Normal rate and regular rhythm. Occasional extrasystoles are present. Heart sounds: Normal heart sounds. Pulmonary: Effort: Pulmonary effort is normal. Breath sounds: Normal breath sounds. Abdominal: General: Bowel sounds are normal. Palpations: Abdomen is soft. Tenderness: There is no abdominal tenderness. Musculoskeletal: Normal range of motion. Skin: General: Skin is warm and dry. Neurological: Mental Status: She is alert and oriented to person, place, and time. Cranial Nerves: No cranial nerve deficit. Deep Tendon Reflexes: Reflexes are normal and symmetric. Psychiatric: Behavior: Behavior normal. Thought Content: Thought content normal. Labs No results found for this or any previous visit (from the past 24 hour(s)). Imaging No results found for this visit on 12/08/19. Orders and Treatments Orders Placed This Encounter Procedures XR CHEST 1 VW TROPONIN I aPTT PROTHROMBIN TIME / INR COMP. METABOLIC PANEL (09972) LIPASE, SERUM CBC WITH DIFF O2 Per Protocol No orders of the defined types were placed in this encounter. Procedures See ED Procedure Note Notes & MDM Patient was evaluated for an emergency medical condition related to Chest Pain . Differential diagnoses considered by presenting complaints but not limited to: ACS, Chest pain, atypical angina, PE and others. EKG: Time 1821. Rate 87. Sinus rhythm with PVCs and PACs. QTC prolonged at 510, right atrial enlargement possible T-wave abnormalities in lateral leads. Interpreted Rhythm Strip Interpretation: 86 Normal Sinus Rhythm Pulse Oximetry room air Assessment: 54-year-old female with multiple risk factors for ACS. Labs and imaging ordered. Patient signed out to Dr. Monroy at shift change. Plan for ACS rule out. Diagnosis ICD-10-CM ICD-9-CM 1. Chest pain, unspecified type R07.9 786.50 Disposition & Follow Up ED Disposition None Patient's Medications START taking these medications No medications on file CONTINUE taking these medications which have NOT CHANGED AMITRIPTYLINE 25 MG TABLET Take 25 mg by mouth at bedtime as needed for Insomnia. ASPIRIN 81 MG CHEWABLE TABLET Take 81 mg by mouth daily. ATORVASTATIN (LIPITOR) 40 MG TABLET Take 40 mg by mouth at bedtime. CLOPIDOGREL 75 MG TABLET Take 1 tablet by mouth daily. DICLOFENAC 75 MG EC TABLET Take 1 tablet by mouth 2 (two) times daily with meals. DILTIAZEM 360 MG 24 HR CAPSULE Take 1 capsule by mouth daily. DULOXETINE (CYMBALTA) 30 MG CAPSULE Take 30 mg by mouth daily. GABAPENTIN (NEURONTIN) 300 MG CAPSULE Take 1 capsule by mouth 3 (three) times daily. HYDROCODONE-ACETAMINOPHEN (NORCO) 10-325 MG TABLET Take 1 tablet by mouth every 6 (six) hours asneeded for Pain (scale 7-10). METFORMIN (GLUCOPHAGE) 1,000 MG TABLET Take 500 mg by mouth 2 (two) times daily with meals. NITROGLYCERIN 0.[address] 1 tablet under the tongue every 5 (five) minutes as needed for Chest pain. QUETIAPINE (SEROQUEL) 50 MG TABLET Take 50 mg by mouth daily. TRIAMTERENE-HYDROCHLOROTHIAZIDE 37.5-25 MG PER CAPSULE Take 1 capsule by mouth every morning. START taking Modified Medications as Prescribed No medications on file STOP taking these medications No medications on file Louisa Fulton DO 12/08/2019 6:33 PM ACTIVE COVID-19 PANDEMIC. documented in this encounter Miscellaneous Notes Care Plan - Hailey Meza RN - 12/09/2019 11:27 AM CDT Problem: Discharge Planning Goal: Absence of venous thromboembolism Outcome: Progressing as expected Goal: Adequate for discharge Outcome: Progressing as expected Goal: Adequate to move to next level of care Outcome: Progressing as expected Goal: Knowledge of medication management Outcome: Progressing as expected Problem: Cardiac Output - Decreased Goal: Absence of signs and symptoms of decreased cardiac output Outcome: Progressing as expected Problem: Falls, Risk of Goal: Absence of falls Outcome: Progressing as expected Problem: Pain Goal: Control of pain at or below patient's documented comfort goal Outcome: Progressing as expected Goal: Reduction in pain sensation Outcome: Progressing as expected Problem: Skin integrity Impaired (Risk or Actual) Goal: Wound healing Outcome: Progressing as expected Goal: Prevention of new skin breakdown Outcome: Progressing as expected Problem: Tissue Perfusion, Cardiopulmonary - Altered Goal: Circulatory function within specified parameters Outcome: Progressing as expected are Plan - Megan Garcia RN - 12/09/2019 1:39 AM CDT Problem: Discharge Planning Goal: Absence of venous thromboembolism Outcome: Progressing as expected Goal: Adequate for discharge Outcome: Progressing as expected Goal: Adequate to move to next level of care Outcome: Progressing as expected Goal: Knowledge of medication management Outcome: Progressing as expected Problem: Cardiac Output - Decreased Goal: Absence of signs and symptoms of decreased cardiac output Outcome: Progressing as expected Problem: Falls, Risk of Goal: Absence of falls Outcome: Progressing as expected Problem: Pain Goal: Control of pain at or below patient's documented comfort goal Outcome: Progressing as expected Goal: Reduction in pain sensation Outcome: Progressing as expected Problem: Skin integrity Impaired (Risk or Actual) Goal: Wound healing Outcome: Progressing as expected Goal: Prevention of new skin breakdown Outcome: Progressing as expected Problem: Tissue Perfusion, Cardiopulmonary - Altered Goal: Circulatory function within specified parameters Outcome: Progressing as expected D Nurse Note - Eleonora Hoskins RN - 12/08/2019 9:13 PM CDTPatient [facility]. Patient agrees to admission, discussed plan of care with patient. Patient is awake, A&Ox4, resp reg unlabored on RA, color appropriate for race, PIV intact x1 to left AC. No adverse reaction to medications administered while in ED. Belongings with patient to unit. D Nurse Note - Eleonora Hoskins RN - 12/08/2019 8:58 PM CDTNurse Report Report given to JULIEN Guzman on Med Surg. Chief complaint, assessment findings and orders reviewed.Plan of care discussed with nurse. ELEONORA HOSKINS RN D Nurse Note - Eleonora Hoskins RN - 12/08/2019 8:42 PM CDT Attempted to call patient report at this time, receiving nurse unavailable. Was advised nurse was inanother patients room and would call back for report shortly. documented in this encounter Plan of Treatment Name Type Priority Associated Diagnoses Date/Ti me LAB ONLY COVID LAB Routine Chest pain, unspecified 7:34 PM INTERPRETATION type CDT Name Type Priority Associated Diagnoses Order S chedule LAB ONLY COVID LAB Routine Chest pain, unspecified ON CE for 1 Occurrences INTERPRETATION type starting 11/25 until 0, 1 completed TROPONIN I LAB Routine EVERY 6 HOURS ( START TIME ADJUSTABLE ) START TIME ADJUSTABLE for 3 Occurrences sta rting 12/08/2019 unti l 12/09/2019, 2 completed Health Maintenance Due Date Last Done Comments [...] 01/11/2016 INFLUENZA VACCINE (#1) 2019 CREATININE (SERUM) 12/07/2020 12/08/2019, 12/20/2018, 07/16/2018, Additional history exists documented as of this encounter Implants Implanted Type Area General Ophthalmologist Device Shelf Model / Identifier Expiration Date Ser ial / Lot Phalinx Cannulated [facility] [id number] / Implanted: Qty: 1 on 07/22/2018 by Andrew Romero Jr., DPM at [facility] [employer] 0 / 0 Kwire 0.9mm X 102mm [facility] [id number] / Implanted: Qty: 1 on 07/22/2018 by Andrew Romero Jr., DPM at [facility] [employer] 0 / 0 documented as of this encounter Procedures Procedure Name Priority Date/Time Associated Diagnosis Comme nts POCT GLUCOSE Routine 12/09/2019 11:26 Results for this (AUTOMATED) AM CDT procedure are i n the results section. POCT GLUCOSE Routine 12/09/2019 7:47 Results for this (AUTOMATED) AM CDT procedure are i n the results section. COMP. METABOLIC PANEL Routine 12/09/2019 5:15 Re sults for this ([id number]) AM CDT procedure are i n the results section. TROPONIN I Routine 12/09/2019 5:15 Results for this AM CDT procedure are i n the results section. TROPONIN I Routine 12/09/2019 12:40 Results for this AM CDT procedure are i n the results section. COVID-19 (ID NOW STAT 12/08/2019 7:34 Chest pain, Results for this RAPID TESTING) PM CDT unspecified type procedure are in the results section. XR CHEST 1 VW STAT 12/08/2019 6:46 Chest pain, Results fo r this PM CDT unspecified type procedure a re in the results section. ACTIVATED PARTIAL STAT 12/08/2019 6:34 Chest pain, Result s for this THRMPLAS NEERAJ PM CDT unspecified type procedure a re in the results section. PROTHROMBIN TIME / STAT 12/08/2019 6:34 Chest pain, Resul ts for this INR PM CDT unspecified type procedure a re in the results section. GLYCOSYLATED Add-on 12/08/2019 6:34 Results for this HEMOGLOBIN (A1C) PM CDT procedure a re in the results section. CBC WITH DIFF STAT 12/08/2019 6:34 Chest pain, Results fo r this PM CDT unspecified type procedure a re in the results section. COMP. METABOLIC PANEL STAT 12/08/2019 6:34 Chest pain, Re sults for this ([id number]) PM CDT unspecified type procedure a re in the results section. TROPONIN I STAT 12/08/2019 6:34 Chest pain, Results for this PM CDT unspecified type procedure a re in the results section. LIPASE STAT 12/08/2019 6:34 Chest pain, Results for this PM CDT unspecified type procedure a re in the results section. EKG-12 LEAD STAT 12/08/2019 6:21 PM CDT NOTICE OF PRIVACY Routine 12/08/2019 6:09 PRACTICES PM CDT documented in this encounter Results POCT GLUCOSE (AUTOMATED) (12/09/2019 11:26 AM CDT) Pathologist Sig nature POCT GLU 138 (H) 70 - 110 mg/dL [facility] Specimen Blood Performing Organization Address City/[facility] Phone Number [facility] CLIA: [id number] [place] [address] POCT GLUCOSE (AUTOMATED) (12/09/2019 7:47 AM CDT) Pathologist Sig nature POCT GLU 149 (H) 70 - 110 mg/dL [facility] Specimen Blood Performing Organization Address [facility] Phone Number [facility] CLIA: [id number] [place], [place] [address] LABORATORY [address] [facility] COMP. METABOLIC PANEL ([id number]) (12/09/2019 5:15 AM CDT) NA 140 135 - 145 [facility] mmol/L [facility] K 3.7 3.5 - 5.0 [facility] mmol/L [facility] CL 106 98 - 108 mmol/L [facility] CO2 TOTAL 25 23 - 31 mmol/L [facility] AGAP 9 2 - 16 [facility] BUN 16 7 - 23 mg/dL [facility] GLUCOSE 143 (H) 70 - 110 mg/dL [facility] CREATININE 1.06 (H) 0.50 - 1.04 [facility] mg/dL HOSPITAL LAB[facility]ATORY TOTAL BILI 0.3 0.1 - 1.1 mg/dL [facility] CALCIUM 9.7 8.6 - 10.6 [facility] mg/dL [facility] T PROTEIN 7.1 6.3 - 8.2 g/dL [facility] ALBUMIN 3.7 3.5 - 5.0 g/dL [facility] ALK PHOS 92 34 - 122 U/L [facility] ALTv 44 (H) 5 - 35 U/L [facility] AST(SGOT) 40 13 - 40 U/L [facility] eGFR Calculation 54.0 mL/min/1.73m2 [facility] (Non-[facility] LABORATORY Citizen Of [place]) eGFR Calculation 65.5 mL/min/1.73m2 [facility] () [facility] Specimen Blood - LINE, VENOUS Narrative Performed At Association of Glomerular Filtration Rate (GFR) [facility] and Staging of Kidney Disease* + + +- + | GFR (mL/min/1.73 m2) | With Kidney Damage | Without Kidney Damage + + +- + | >90 | Stage one | Normal + + +- + | 60-89 | Stage two | Decreased GFR + + +- + | 30-59 | Stage three | Stage three + + +- + | 15-29 | Stage four | Stage four + + +- + | <15 (or dialysis) | Stage five | Stage five + + +- + *Each stage assumes the associated GFR level has been in effect for at least three months. Stages 1 to 5, with or without kidney disease, indicate chronic kidney disease. Notes: Determination of stages one and two (with eGFR >59mL/min/1.73 m2) requires estimation of kidney damage for at least three months as defined by structural or functional abnormalities of the kidney, manifested by either: Pathological abnormalities or Markers of kidney damage (including abnormalities in the composition of the blood or urine or abnormalities in imaging tests). Performing Organization Address City/State/Zipcode Phone Number [facility] CLIA: [id number] [place] [address] TROPONIN I (12/09/2019 5:15 AM CDT) Pathologist Sig nature TROPONIN I <0.012 <=0.034 ng/mL [facility] Specimen Blood - LINE, VENOUS Narrative Performed At Equal or Less than 0.034 ng/ml---Normal [facility] Note: Cardiac troponin begins to rise 3-4 hours after the onset of ischemia. Repeat in 4-6 hours if the sample was drawn within 3-4 hours of the onset of the symptom and found normal. Between 0.035 and 0.120 ng/mL--- Borderline. Questionable myocardial injury or necros is Note: Serial measurement may be necessary to confirm or exclude the diagnosis of myocardial injury or necrosis; Clinical correlation (symptoms, EKGs, imaging studies, and others) required; Repeat in 4-6 hours if clinically indicated. Equal or Higher than 0.121 ng/mL---Abnormal. Myocardial Injury or Necrosis Likely Biotin has been reported to cause a negative bias, interpret results relative to patient's use of biotin. Performing Organization Address [facility] Phone Number [facility] CLIA: [id number] [place] [address] [place] [address] Drive TROPONIN I (12/09/2019 12:40 AM CDT) [facility] TROPONIN I <0.012 <=0.034 ng/mL [facility] Specimen Blood - LINE, VENOUS Narrative Performed At Equal or Less than 0.034 ng/ml---Normal [facility] Note: Cardiac troponin begins to rise 3-4 hours after the onset of ischemia. Repeat in 4-6 hours if the sample was drawn within 3-4 hours of the onset of the symptom and found normal. Between 0.035 and 0.120 ng/mL--- Borderline. Questionable myocardial injury or necros is Note: Serial measurement may be necessary to confirm or exclude the diagnosis of myocardial injury or necrosis; Clinical correlation (symptoms, EKGs, imaging studies, and others) required; Repeat in 4-6 hours if clinically indicated. Equal or Higher than 0.121 ng/mL---Abnormal. Myocardial Injury or Necrosis Likely Biotin has been reported to cause a negative bias, interpret results relative to patient's use of biotin. Performing Organization Address [facility] Phone Number [facility] CLIA: [id number] [place] [address] [place] [address] Drive COVID-19 (ID NOW RAPID TESTING) (12/08/2019 7:34 PM CDT) SARS-CoV-2 Rapid ID Not Detected Not Detected [facility] Specimen Swab - NASOPHARYNGEAL SWAB Narrative Performed At ID NOW COVID-19 Assay is an isothermal nucleic [facility] acid amplification test intended for the qualitative detection of nucleic acid from SARS-CoV-2 viral RNA in nasopharyngeal (PROPOSAL ANALYST) specimens. It is used under Emergency Use Authorization (EUA) by FDA. The limit of detection (LOD) of the assay is 125 Genome Equivalents/mL. A positive result is indicative of the presence of SARS-CoV-2 RNA. Clinical correlation with patient history and other diagnostic information is necessary to determine patient infection status. A negative (Not Detected) result does not preclude SARS-CoV-2 infection. In patients with clinical symptoms and other tests that are consistent with SARS-CoV-2 infection, negative results should be treated as presumptive negative and a new specimen should be tested with alternative PCR molecular test. Invalid: Please collect a new specimen for repeat patient testing if clinically indicated. Performing Organization Address City/State/Zipcode Phone Number [facility] CLIA: [id number] [place] [address] XR CHEST 1 VW (12/08/2019 6:46 PM CDT) Specimen Impressions Performed At Impression: PACS/VR/DOSE No acute abnormalities evident. RL: [id number] End of Report Electronically signed by Trip Alvarez MD at 020 8:08 PM Narrative Performed At Ordering Physician: LOUISA FULTON PACS/VR/DOSE History: Chest pain Technique: Chest, single view Comparison: December 20, 2018 Findings: The lungs are clear. No pleural effusion s are evident. Heart size is normal, allowing for the AP technique. The superior me diastinal silhouette is unremarkable for age and projection. No acute bony abnormalities are evident. Procedure Note [facility], Radiant Results Inft User - 2019 8:10 PM CDT Ordering Physician: LOUISA FULTON History: Chest pain Technique: Chest, single view Comparison: December 20, 2018 Findings: The lungs are clear. No pleural effusion s are evident. Heart size is normal, allowing for the AP technique. T he superior mediastinal silhouette is unremarkable for age and projection. No acute bony abnormalities are evident. IMPRESSION Impression: No acute abnormalities evident. RL: [id number] End of Report Performing Organization Address City/State/Zipcode Phone Number PACS/VR/DOSE GLYCOSYLATED HEMOGLOBIN (A1C) (12/08/2019 6:34 PM CDT) Pathologist Sig nature HGB A1C 6.7 (H) 4.0 - 6.0 % [facility] Specimen Blood - VENOUS Narrative Performed At %A1C (NGSP) Interpretation (ADA) [facility] 4.8-5.6 Normal or (Non-Diabetic Ra nge) 5.7-6.4 Increased Risk (Pre-Diabet ic) >6.5 Diabetes Indicated Performing Organization Address City/[facility]/Zipcode Phone Number [facility] CLIA: [id number] [place] [address] CBC WITH DIFF (12/08/2019 6:34 PM CDT) Pathologist Sig nature WBC 6.33 4.30 - 11.10 [facility] 10*3/L [facility] RBC 4.38 3.93 - 5.25 [facility] 10*6/L [facility] HGB 12.3 11.6 - 15.0 [facility] g/dL [facility] HCT 38.1 35.7 - 45.2 % [facility] MCV 87.0 80.6 - 95.5 fL [facility] MCH 28.1 25.9 - 32.8 pg [facility] MCHC 32.3 31.6 - 35.1 [facility] g/dL [facility] RDW-SD 45.6 39.0 - 49.9 fL [facility] RDW-CV 14.3 12.0 - 15.5 % [facility] PLT 287 166 - 358 [facility] 10*3/L [facility] MPV 10.3 9.5 - 12.9 fL [facility] NRBC/100 WBC 0.0 0.0 - 10.0 /100 [facility] WBCs [facility] NRBC x10^3 <0.01 10*3/L [facility] GRAN MAT (NEUT) % 59.8 % [facility] IMM GRAN % 0.30 % [facility] LYMPH % 33.3 % [facility] MONO % 4.4 % [facility] EOS % 1.7 % [facility] BASO % 0.5 % [facility] GRAN MAT x10^3(ANC) 3.78 1.88 - 7.09 [facility] 10*3/uL HOSPITAL LAB[facility]ATORY IMM GRAN x10^3 <0.03 0.00 - 0.06 [facility] 10*3/uL HOS[facility]ITAL LAB[facility]ORY LYMPH x10^3 2.11 1.32 - 3.29 [facility] 10*3/uL HOSPITAL LAB[facility]ORY MONO x10^3 0.28 (L) 0.33 - 0.92 [facility] 10*3/uL [facility] EOS x10^3 0.11 0.03 - 0.39 [facility] 10*3/uL HOSPITAL LAB[facility]ATORY BASO x10^3 0.03 0.01 - 0.07 [facility] 10*3/uL [facility] Specimen Blood - VENOUS Performing Organization Address City/[facility]/Zipcode Phone Number [facility] CLIA: [id number] [place] [address] [place] [address] LIPASE, SERUM (12/08/2019 6:34 PM CDT) Pathologist Sig [place] LIPASE 202 0 - 220 U/L [facility] Specimen Blood - VENOUS Performing Organization Address City/[facility] Phone Number [facility] CLIA: [id number] [place] [address] [place] [address] COMP. METABOLIC PANEL ([id number]) (12/08/2019 6:34 PM CDT) Pathologist Sig [place] NA 139 135 - 145 [facility] mmol/L [facility] K 4.1 3.5 - 5.0 [facility] mmol/L [facility] CL 105 98 - 108 mmol/L [facility] CO2 TOTAL 25 23 - 31 mmol/L [facility] AGAP 9 2 - 16 [facility] BUN 13 7 - 23 mg/dL [facility] GLUCOSE 103 70 - 110 mg/dL [facility] CREATININE 0.87 0.50 - 1.04 [facility] mg/dL [facility] TOTAL BILI 0.6 0.1 - 1.1 mg/dL [facility] CALCIUM 10.2 8.6 - 10.6 [facility] mg/dL [facility] T PROTEIN 8.6 (H) 6.3 - 8.2 g/dL [facility] ALBUMIN 4.4 3.5 - 5.0 g/dL [facility] ALK PHOS 113 34 - 122 U/L [facility] ALTv 55 (H) 5 - 35 U/L [facility] AST(SGOT) 59 (H) 13 - 40 U/L [facility] eGFR Calculation 67.9 mL/min/1.73m2 [facility] (Non-[facility] LABORATORY Citizen Of [place]) eGFR Calculation 82.2 mL/min/1.73m2 [facility] () [facility] Specimen Blood - VENOUS Narrative Performed At [facility] [place] of Glomerular Filtration Rate (GFR) [facility] and Staging of Kidney Disease* + + +- + | GFR (mL/min/1.73 m2) | With Kidney Damage | Without Kidney Damage + + +- + | >90 | Stage one | Normal + + +- + | 60-89 | Stage two | Decreased GFR + + +- + | 30-59 | Stage three | Stage three + + +- + | 15-29 | Stage four | Stage four + + +- + | <15 (or dialysis) | Stage five | Stage five + + +- + *Each stage assumes the associated GFR level has been in effect for at least three months. Stages 1 to 5, with or without kidney disease, indicate chronic kidney disease. Notes: Determination of stages one and two (with eGFR >59mL/min/1.73 m2) requires estimation of kidney damage for at least three months as defined by structural or functional abnormalities of the kidney, manifested by either: Pathological abnormalities or Markers of kidney damage (including abnormalities in the composition of the blood or urine or abnormalities in imaging tests). Performing Organization Address City/State/Zipcode Phone Number [facility] CLIA: [id number] [place] [address] PROTHROMBIN TIME / INR (12/08/2019 6:34 PM CDT) Pathologist [facility] PROTIME PATIENT 13.3 12.0 - 14.7 [facility] LABORATORY INR 1.1Comment: Normal [facility] INR <1.1; Warfarin [facility] Therapeutic range LABORATORY 2.0 to 3.0 or 2.5 to 3.5, depending upon the indications. Specimen Blood - VENOUS Performing Organization Address [facility] Phone Number [facility] CLIA: [id number] [place] [address] aPTT (12/08/2019 6:34 PM CDT) Pathologist Sig nature APTT Patient 25 23 - 38 Seconds [facility] Specimen Blood - VENOUS Narrative Performed At The [facility] patient population mean normal value [facility] for aPTT is 30 seconds. Performing Organization Address [facility] Phone Number [facility] CLIA: [id number] [place] [address] TROPONIN I (12/08/2019 6:34 PM CDT) Pathologist Sig nature TROPONIN I <0.012 <=0.034 ng/mL [facility] Specimen Blood - VENOUS Narrative Performed At Equal or Less than 0.034 ng/ml---Normal [facility] Note: Cardiac troponin begins to rise 3-4 hours after the onset of ischemia. Repeat in 4-6 hours if the sample was drawn within 3-4 hours of the onset of the symptom and found normal. Between 0.035 and 0.120 ng/mL--- Borderline. Questionable myocardial injury or necros is Note: Serial measurement may be necessary to confirm or exclude the diagnosis of myocardial injury or necrosis; Clinical correlation (symptoms, EKGs, imaging studies, and others) required; Repeat in 4-6 hours if clinically indicated. Equal or Higher than 0.121 ng/mL---Abnormal. Myocardial Injury or Necrosis Likely Biotin has been reported to cause a negative bias, interpret results relative to patient's use of biotin. 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 Dyslipidemia Other and unspecified hyperlipidemia Essential hypertension Unspecified essential hypertension Morbid obesity with body mass index of 4 0.0-49.9 LEN (obstructive sleep apnea) Obstructive sleep apnea (adult) (pediatr ic) Tobacco abuse Tobacco use disorder Type 2 diabetes mellitus without complic ation, without long-term current use of insulin documented in this encounter Administered Medications Medication Order MAR Action Action Date Dose Rate Site acetaminophen (TYLENOL) tablet 650 mg 650 mg, Oral, Q6HPRN, Starting 12/07 at 2213, Until Discontinued, Routine, Pain (scale 1-3) aspirin chewable tablet 81 mg Given 12/09/2019 8:25 AM CDT 81 mg 81 mg, Oral, DAILY, First dose on Sat12/09/19 at 0900, Until Discontinued, Routine clopidogreL (PLAVIX) tablet 75 mg Given 12/09/2019 8:25 AM CDT 75 mg 75 mg, Oral, DAILY, First dose on Sat12/09/19 at 0900, Until Discontinued, Routine dextrose 50 % in water (D50W) injection 25 mL 25 mL, Slow IV Push, PRN, Starting Sat at 2227, Until Discontinued, THEODORE, Blood Glucose < or = 70 mg/dL and patien t is unable to swallow or has mental status changes. diltiazem XR (DILT-XR) capsule 360 mg Given 12/09/2019 8:26 AM CDT 360 mg 360 mg, Oral, DAILY, First dose on Sat12/09/19 at 0900, Until Discontinued DULoxetine (CYMBALTA) capsule 30 mg Given 12/09/2019 8:25 AM CDT 30 mg 30 mg, Oral, DAILY, First dose on Sat12/09/19 at 0900, Until Discontinued, Routine gabapentin (NEURONTIN) capsule 300 mg Given 12/09/2019 8:25 AM CDT 300 mg 300 mg, Oral, TIDPRN, Starting Sat12/09/19 at 0210, Until Discontinued, Routine, Neuropathy pain glucagon (GLUCAGEN DIAGNOSTIC KIT) injec tion 1 mg 1 mg, Intramuscular, PRN, Starting Sat at 2227, Until Discontinued, THEODORE, Blood Glucose < or = 70 mg/dL and patient is unable to swallow or has mental changes. HYDROcodone-acetaminophen (NORCO 5) 5-325 Given 2019 8:28 AM CDT 1 tablet mg tablet 1 tablet 1 tablet, Oral, Q6HPRN, Starting Sat12/08/19 at 2213, Until Sat12/10/19 at 2212, Routine, Pain (scale 4-6), Hold for SBP<110, DBP<60, RR<12, and/or drowsiness/sedation Given 12/09/2019 1:06 AM CDT 1 tablet morpHINE injection 2 mg 2 mg, Slow IV Push, Q4HPRN, Starting Sat12/08/19 at 2214, Until Sat12/09/19 at 2213, Routine, Pain (scale 7-10), Hold for SBP<110, DB P<60, RR<12, and/or drowsiness/sedation nicotine (NICODERM) 14 mg/24 hr patch 1 Patch 1 Patch, Topical, Administer over 24 Sean rs, [id number], Starting Sat12/08/19 at 2246, Until Discontinued, Routine, smoking cessation nitroglycerin (NITROSTAT) sublingual tablet Given 11/25 7:36 PM CDT 0.4 mg 0.4 mg 0.4 mg, Sublingual, Q5MIN PRN, 3 doses, Starting Sat12/08/19 at 1929, Until Discontinued, THEODORE, Chest pain nitroglycerin (NITROSTAT) sublingual tab let 0.4 mg 0.4 mg, Sublingual, Q5MIN PRN, Starting Sat12/08/19 at 2230, Until Discontinued, Routine, Chest pain ondansetron (ZOFRAN (PF)) injection 4 mg 4 mg, Slow IV Push, Q6HPRN, Starting Sat12/08/19 at 2 214, Until Discontinued, Routine, Nausea and Vomiting (N/V) QUEtiapine (SEROQUEL) tablet 50 mg 50 mg, Oral, DAILY, First dose on Sat at 0900, Until Discontinued, Routine Sliding Scale Insulin-Regular + Fsbg April ting Subcutaneous, AC+HS, First dose on Sat12/09/19 at 073 0, Until Discontinued, Routine triamterene-hydrochlorothiazid (MAXZIDE-25) Given 11/25 8:25 AM CDT 1 tablet 37.5-25 mg tablet 1 tablet 1 tablet, Oral, DAILY, First dose on Sat12/09/19 at 0900, Until Discontinued Medication Order MAR Action Action Date Dose Rate Site aspirin chewable tablet 243 mg Given 12/08/2019 7:34 PM CDT 243 mg 243 mg, Oral, ONCE, 1 dose, 12/08/19 at 2030, Routine morpHINE injection 2 mg Given 12/08/2019 9:58 PM CDT 2 mg 2 mg, Slow IV Push, ONCE, 1 dose, 12/08/19 at 2245, Routine morpHINE injection 4 mg Given 12/08/2019 6:51 PM CDT 4 mg 4 mg, Slow IV Push, ONCE, 1 dose, 12/08/19 at 2000, STAT ondansetron (ZOFRAN (PF)) injection 4 mg Given 12/08/2019 6:51 PM CDT 4 mg 4 mg, Slow IV Push, ONCE, 1 dose, 12/08/19 at 2000, THEODORE documented in this encounter Additional Health Concerns Infection Onset Date Last Indicated Resolved Time COVID-19 Rule Out 12/08/2019 12/08/2019 12/08/2019 8: 01 PM CDT documented as of this encounter Insurance Payer Benefit Plan / Subscriber ID Effective Dates Phone Addre ss Type Group [facility] [id number] 2018-Present Medicaid COMM PLAN - PLUS MANAGED MEDICAID documented as of this encounter
--- OUTSIDE RECORDS SUMMARY | 2020-02-23 16:47 | XMS REPORT | Summary of Care ---
:1965 Author Organization [facility] Address [address] [place] [id number] Care Team Providers Name Role Phone Ana Unavailable Shanon Traore Primary Care Provider Reason for Visit Reason Comments Refill Request Encounter Details Date Type Department Care Team Description 12/24/2019 Telephone [facility] Cardiology- Amrit Pimentel MD Refill Request [address] [facility], [address] [place] [address] [place] [address] [phone] Allergies Active Allergy Reactions Severity Noted Date Comments Sulfa (Sulfonamide Antibiotics) Anaphylaxis 6 documented as of this encounter (statuses as of 12/25/2019) Medications Medication Sig Dispensed Refills Start Date [...] mouth at bedtime as needed for Insomnia. HYDROcodone-acetaminoph Take 1 tablet by 0 Active en (NORCO) 10-325 mg mouth every 6 tablet (six) hours as needed for Pain (scale 7-10). QUEtiapine (SEROQUEL) Take 50 mg by 0 Active 50 mg tablet mouth daily. diclofenac 75 mg EC Take 1 tablet by 60 tablet 1 Active tabletIndications: mouth 2 (two) 9 Acute pain of left knee times daily with meals. diltiazem 360 mg 24 hr Take 1 capsule by 30 capsule 5 06/25/19 2 Active capsuleIndications: mouth daily. 0 Chest pain, unspecified type triamterene-hydrochloro Take 1 capsule by 90 capsule 0 02 Active thiazide 37.5-25 mg per mouth every 0 capsuleIndications: morning. Essential hypertension oxcarbazepine Take by mouth. 0 Active (TRILEPTAL ORAL) nitroglycerin 0.[address] 1 tablet 1 Bottle 5 Active sublingual under the tongue 0 tabletIndications: every 5 (five) Chest pain, unspecified minutes as needed type for Chest pain. pantoprazole 40 mg EC Take 1 tablet by 30 tablet 3 Active tabletIndications: mouth daily. 0 Chest pain, unspecified type clopidogreL 75 mg Take 1 tablet by 30 tablet 5 Active tablet mouth daily. 0 clopidogreL 75 mg Take 1 tablet by 30 tablet 5 12/24 Discontinued tablet mouth daily. 0 0 documented as of this encounter (statuses as of 12/25/2019) Active Problems Problem Noted Date LEN (obstructive sleep apnea) 07/14/2019 Essential hypertension 03/17/2016 Dyslipidemia 03/17/2016 Coronary-myocardial bridge 03/17/2016 Type 2 diabetes mellitus without complication, without long-term current 03/17/2016 use of insulin Tobacco abuse 03/17/2016 Morbid obesity with body mass index of 40.0-49.9 01/10 Chest pain 01/10/2016 documented as of this encounter (statuses as of 12/25/2019) Resolved Problems Problem Noted Date Resolved Date Obesity (BMI 30-39.9) 02/13/2016 07/02/2018 Morbid obesity with body mass index of 50 or higher 01/11/20 16 07/02/2018 documented as of this encounter (statuses as of 12/25/2019) Social History Tobacco Use Types Packs/Day Years [...] this encounter Miscellaneous Notes Telephone Encounter - Alfred Pryor RN - 12/25/2019 2:02 PM CDT Requested Prescriptions Signed Prescriptions Disp Refills clopidogreL 75 mg tablet 30 tablet 5 Sig: Take 1 tablet by mouth daily. Authorizing Provider: MARIANELA PIMENTEL Ordering User: ALFRED PRYOR Sent per guidelines. elephone Encounter - Jackeline Manzanares - 12/24/2019 3:33 PM CDT Che Helton is a 54 year old female Pharmacy is calling to get a refill on the following rx: Disp Refills Start End WAQAS clopidogreL 75 mg tablet 30 tablet 5 04/30/2019 -- Sig: Take 1 tablet by mouth daily. Sent to pharmacy as: clopidogreL 75 mg tablet (PLAVIX) Class: eRX Route: Oral Order: [id number] Date/Time Signed: 04/30/2019 15:45 E-Prescribing Status: Receipt confirmed by pharmacy (04/30/2019 3:45 PM TACO MAKER) Pharmacy [id number] - [place], [place] - [address] documented in this encounter Plan of Treatment Date Type Specialty Care Team Description 12/28/2019 Hospital Encounter Radiology Marianela Pimentel MD [address] [phone] 03/23/2020 Office Visit Cardiology Marianela Pimentel M D [address] [address] [phone] Health Maintenance Due Date Last Done Comments [...] of this encounter Implants Implanted Type Area Compliance And Control Analyst Device Shelf Model / Identifier Expiration Date Ser ial / Lot Phalinx Cannulated [facility] [id number] / Implanted: Qty: 1 on 07/22/2018 by Andrew Romero Jr., DPM at [facility] [employer] 0 / 0 Kwire 0.9mm X 102mm [facility] [id number] / Implanted: Qty: 1 on 07/22/2018 by Andrew Romero Jr., DPM at [facility] [employer] 0 / 0 documented as of this encounter Results Not on filedocumented in this encounter Insurance Payer Benefit Plan / Subscriber ID Effective Dates Phone Addre ss Type Group [facility] [id number] 2018-Present Medicaid COMM PLAN - PLUS MANAGED MEDICAID documented as of this encounter
--- OUTSIDE RECORDS SUMMARY | 2020-02-23 16:47 | XMS REPORT ---
:1965 Author Organization [facility] Address [address] [place] [address] Care Team Providers Name Role Phone Sullivan Unavailable [phone] PROBLEMS Type Condition ICD9-CM [id number] Onset Condition SNOMED Code Notes Code Code Dates Status Problem Controlled type 2 E11.9 Active 216832967 diabetes mellitus without complication, without long-term current use of insulin Problem Bipolar affective F31.30 Active 568627484 disorder, current episode depressed, current episode severity unspecified Problem Depression with F41.8 Active 75730317 anxiety Problem Chronic pain G89.4 Active 972124162 syndrome Problem HTN I10 Active 34853477 (hypertension), benign Problem Primary M17.12 Active 221854951654833 osteoarthritis of left knee Problem Seasonal J30.2 Active 587028035 allergies Problem Hypercalcemia E83.52 Active 22218711 Problem Mixed E78.2 Active 939749838 hyperlipidemia Problem Neuropathy G62.9 Active 716781699 Problem GERD without K21.9 Active 697199960 esophagitis Problem History of CVA Z86.73 Active 468149994 (cerebrovascular accident) without residual deficits Problem Constipation, K59.00 Active 10888939 unspecified constipation type ALLERGIES Allergen (clinical drug Drug/Non Drug Allergy Reaction Allergy Type Onset Date Status ingredient) documented on EMR Sulfa Unknown Drug Allergy Active ENCOUNTERS from 1965 to 2020-01-27 Encounter Location Date Provider Diagnosis [facility] [address], [place] [address] IMMUNIZATIONS Vaccine Route Administration Date Status Flucelvax [...] REASON FOR REFERRAL No Information VITAL SIGNS No information MEDICATIONS Medication SIG (Take, Route, Notes Start Date End Date Status Frequency, Duration) Amitiza 24 MCG TAKE ONE CAPSULE BY A ctive MOUTH TWICE DAILY WITH FOOD AND WATER for 30 Amitriptyline HCl 25 MG 1 tablet at bedtime Active Orally Once a day Zqklbcmqae-JBQU-Xwbdnlgz 1 tablet as needed Jan, Active 50-325-40 MG Orally every 8 hrs PRN Severe OLSON Dyazide 37.5-25 MG 1 capsule in the Active morning Orally Once a day Diltiazem HCl ER Beads Ac tive Oxcarbazepine 300 MG 1 tablet Orally Active Twice a day Lidocaine Active Hydrocodone-Acetaminophen as directed Orally Active 7.5-500 MG Plavix 75 MG 1 tablet Orally Once Ac tive a day for 30 days Cyclobenzaprine HCl 10 MG 1 tablet as needed Active Orally Three times a day Triamterene-HCTZ Active Quetiapine Fumarate 100 MG 1 tablet Orally Once Active a day Ondansetron 4 MG 1 tablet on the Act alf tongue and allow to dissolve Orally Once a day for 30 day(s) Atorvastatin Calcium 40 MG 1 tablet Orally Once Active a day for 30 Duloxetine HCl 30 MG 1 capsule Orally Active Once a day Diltiazem HCl ER Coated TK 1 C PO D Oral Active Beads 180 MG Atorvastatin Calcium 80 MG 1 tablet Orally Once Active a day for 90 days Clindamycin HCl Not-Takin g Amitiza 24 MCG 1 capsule with food A ctive and water Orally Twice a day Linzess 290 MCG 1 capsule at least A ctive 30 minutes before the first meal of the day on an empty stomach Orally Once a day for 90 Gabapentin 300 MG 1 capsule Orally TID Active Clopidogrel Bisulfate Act alf Nudzahvfyi-FRA-Ylfjabbd 1 capsule as needed Active 50-325-40 MG Orally every 4 hrs Nexium 40 MG 1 capsule Orally Active Once a day for 30 days Metformin HCl 1000 MG 1 tablet with a meal Active Orally Twice a day for 30 days Diclofenac Sodium 100 MG 1 tablet with food Active or milk Orally Once a day Sumatriptan Succinate 25 1 tablet at least 2 Active MG hours between doses as needed Orally Twice a day PROCEDURES No Information RESULTS No Results REASON FOR VISIT injection MEDICAL (GENERAL) HISTORY Type Description Date Medical [...] sees pain management Surgical History Gastric Sleeve 2016 Surgical History Left Foot 2018 Surgical History Fibroid Cysts 2017 Surgical History left knee([place]) 2012 Surgical History left foot Jenny 2014 Hospitalization History chest pain 03/2018 Hospitalization History [facility] -chest pains 12/08/19 Goals Section No Information Health Concerns No Information MEDICAL EQUIPMENT No Information MENTAL STATUS No Information FUNCTIONAL STATUS No Information ASSESSMENTS No Information PLAN OF TREATMENT Medication Medication Name Sig Start Date Stop Date Nexium 40 MG 1 capsule Orally Once a day for 30 days Diclofenac Sodium 100 MG 1 tablet with food or milk Orally Once a day Diltiazem HCl ER Coated Beads 180 TK 1 C PO D Oral MG Metformin HCl 1000 MG 1 tablet with a meal Orally Twice a day for 30 days Duloxetine HCl 30 MG 1 capsule Orally Once a day Plavix 75 MG 1 tablet Orally Once a day for 30 days Cyclobenzaprine HCl 10 MG 1 tablet as needed Orally Three times a day Atorvastatin Calcium 80 MG 1 tablet Orally Once a day for 90 days Quetiapine Fumarate 100 MG 1 tablet Orally Once a day Jipldoqkat-CRQQ-Njazxaqg 50-325-40 1 tablet as needed Orally Jan, MG every 8 hrs PRN Severe OLSON Gabapentin 300 MG 1 capsule Orally TID Amitiza 24 MCG 1 capsule with food and water Orally Twice a day Amitriptyline HCl 25 MG 1 tablet at bedtime Orally Once a day Dyazide 37.5-25 MG 1 capsule in the morning Orally Once a day Oxcarbazepine 300 MG 1 tablet Orally Twice a day Hydrocodone-Acetaminophen 7.5-500 as directed Orally MG Next Appt Details Provider Name:Long Sullivan 2020-01-29 1 0:00:00 AM, [address], [place], [address], Provider Name:Long Sullivan 2020-02-02 0 9:30:00 AM, [address], [place], [address], Provider Name:Orlando Burnett, 2020-04-19 0 1:20:00 PM, [address], [address], [place], [address], Provider Name:Orlando Burnett, 2020-04-26 0 1:10:00 PM, [address], [address], [place], [address], Insurance Providers Payer Name Payer Payer Insured Patient Coverage Coverage End Address Phone Name Relationship to Start Date Godfrey e Insured [facility] [phone] [facility] [id number] [facility] [address] [facility] [address]
--- OUTSIDE RECORDS SUMMARY | 2020-02-23 16:47 | XMS REPORT ---
:1965 Author Organization [facility] Address [address], [address] [place] [address] Care Team Providers Name Role Phone Sullivan Unavailable [phone] PROBLEMS Type Condition ICD9-CM [id number] Onset Condition SNOMED Code Notes Code Code Dates Status Problem Controlled type 2 E11.9 Active 930298924 diabetes mellitus without complication, without long-term current use of insulin Problem Bipolar affective F31.30 Active 308319906 disorder, current episode depressed, current episode severity unspecified Problem Depression with F41.8 Active 04981152 anxiety Problem Chronic pain G89.4 Active 742679825 syndrome Problem HTN I10 Active 00153081 (hypertension), benign Problem Primary M17.12 Active 693641373276708 osteoarthritis of left knee Problem Seasonal J30.2 Active 108462997 allergies Problem Hypercalcemia E83.52 Active 42261584 Problem Mixed E78.2 Active 992818372 hyperlipidemia Problem Neuropathy G62.9 Active 357079257 Problem GERD without K21.9 Active 838103435 esophagitis Problem History of CVA Z86.73 Active 368513467 (cerebrovascular accident) without residual deficits Problem Constipation, K59.00 Active 79948109 unspecified constipation type ALLERGIES Allergen (clinical drug Drug/Non Drug Allergy Reaction Allergy Type Onset Date Status ingredient) documented on EMR Sulfa Unknown Drug Allergy Active ENCOUNTERS from 1965 to 2020-01-06 Encounter Location Date Provider Diagnosis [facility] [address], [place] [address] IMMUNIZATIONS Vaccine Route Administration Date Status Flucelvax [...] No information MEDICATIONS Medication SIG (Take, Route, Start Date [...] Orally Once a day for 30 day(s) Bpzxlkhelz-SNX-Livaeuyf 1 capsule as needed Active 50-325-40 MG Orally every 4 hrs Linzess 290 MCG 1 capsule at least 30 Act alf minutes before the first meal of the day on an empty stomach Orally Once a day for 90 Oxcarbazepine 300 MG 1 tablet Orally Twice a Active day PROCEDURES No Information RESULTS No Results REASON FOR VISIT Update MEDICAL (GENERAL) HISTORY Type Description Date Medical [...] History Fibroid Cysts 2017 Surgical History left knee([place]) 2011 Surgical History left foot [place] 2013 Hospitalization History chest pain 03/2018 Hospitalization History [facility] -chest pains 12/08/19 Goals Section No Information Health Concerns No Information MEDICAL EQUIPMENT No Information MENTAL STATUS No Information FUNCTIONAL STATUS No Information ASSESSMENTS No Information PLAN OF TREATMENT Medication Medication Name Sig Start Date Stop Date Atorvastatin Calcium 40 MG 1 tablet Orally Once a day for 30 Next Appt Details Provider Name:Long Beckhamga, 2020-01-08 0 9:00:00 AM, [address], [place], [address], Provider Name:Orlando Lex, 2020-01-12 0 2:30:00 PM, [address], [place], [address], Insurance Providers Payer Name Payer Payer Insured Patient Coverage Coverage End Address Phone Name Relationship to Start Date Godfrey e Insured [facility] [phone] [facility] [address] [place] [facility] [address]
--- OUTSIDE RECORDS SUMMARY | 2020-02-23 16:47 | XMS REPORT ---
:1965 Author Organization [facility] Address [address], [address] [place] [address] Care Team Providers Name Role Phone Sullivan Unavailable [phone] PROBLEMS Type Condition ICD9-CM [id number] Onset Condition SNOMED Code Notes Code Code Dates Status Problem Controlled type 2 E11.9 Active 383712161 diabetes mellitus without complication, without long-term current use of insulin Problem Bipolar affective F31.30 Active 601876042 disorder, current episode depressed, current episode severity unspecified Problem Depression with F41.8 Active 68500406 anxiety Problem Chronic pain G89.4 Active 601282176 syndrome Problem HTN I10 Active 61582796 (hypertension), benign Problem Primary M17.12 Active 841517340321599 osteoarthritis of left knee Problem Seasonal J30.2 Active 889529370 allergies Problem Hypercalcemia E83.52 Active 69704124 Problem Mixed E78.2 Active 148562240 hyperlipidemia Problem Neuropathy G62.9 Active 805104012 Problem GERD without K21.9 Active 525909519 esophagitis Problem History of CVA Z86.73 Active 525020498 (cerebrovascular accident) without residual deficits Problem Constipation, K59.00 Active 47068097 unspecified constipation type ALLERGIES Allergen (clinical drug Drug/Non Drug Allergy Reaction Allergy Type Onset Date Status ingredient) documented on EMR Sulfa Unknown Drug Allergy Active ENCOUNTERS from 1965 to 2020-02-01 Encounter Location Date Provider Diagnosis [facility] [address] Jan, [place] [address] IMMUNIZATIONS Vaccine Route Administration Date Status Flucelvax [...] Start Date End Date Status Frequency, Duration) Atorvastatin Calcium 80 MG 1 tablet Orally Once Active a day for 90 days Dyazide 37.5-25 MG 1 capsule in the Active morning Orally Once a day Quetiapine Fumarate 100 MG 1 tablet Orally Once Active a day Amitiza 24 MCG 1 capsule with food A ctive and water Orally Twice a day Linzess 290 MCG 1 capsule at least A ctive 30 minutes before the first meal of the day on an empty stomach Orally Once a day for 90 Amitiza 24 MCG TAKE ONE CAPSULE BY A ctive MOUTH TWICE DAILY WITH FOOD AND WATER for 30 Ondansetron 4 MG 1 tablet on the Act laf tongue and allow to dissolve Orally Once a day for 30 day(s) Hydrocodone-Acetaminophen as directed Orally Active 7.5-500 MG Sumatriptan Succinate 25 1 tablet at least 2 Active MG hours between doses as needed Orally Twice a day Lidocaine Active Clopidogrel Bisulfate Act alf Ccekmfcsnj-OGDI-Kdbzczai 1 tablet as needed Jan, Active 50-325-40 MG Orally every 8 hrs PRN Severe OLSON Metformin HCl 1000 MG 1 tablet with a meal Active Orally Twice a day for 30 days Triamterene-HCTZ Active Amitriptyline HCl 25 MG 1 tablet at bedtime Active Orally Once a day Atorvastatin Calcium 40 MG 1 tablet Orally Once Active a day for 30 Oxcarbazepine 300 MG 1 tablet Orally Active Twice a day Hhjqawqaof-TDN-Ybtyghfp 1 capsule as needed Active 50-325-40 MG Orally every 4 hrs Duloxetine HCl 30 MG 1 capsule Orally Active Once a day Cyclobenzaprine HCl 10 MG 1 tablet as needed Active Orally Three times a day Gabapentin 300 MG 1 capsule Orally TID Active Diclofenac Sodium 100 MG 1 tablet with food Active or milk Orally Once a day Clindamycin HCl Not-Takin g Diltiazem HCl ER Coated TK 1 C PO D Oral Active Beads 180 MG Nexium 40 MG 1 capsule Orally Active Once a day for 30 days Plavix 75 MG 1 tablet Orally Once Ac tive a day for 30 days Diltiazem HCl ER Beads Ac tive PROCEDURES No Information RESULTS No Results REASON FOR VISIT Doppler calf MEDICAL (GENERAL) HISTORY Type Description Date Medical [...] History Fibroid Cysts 2017 Surgical History left knee([place]) 2012 Surgical History left foot [place] 2014 Hospitalization History chest pain 03/2018 Hospitalization History [facility] -chest pains 12/08/19 Goals Section No Information Health Concerns No Information MEDICAL EQUIPMENT No Information MENTAL STATUS No Information FUNCTIONAL STATUS No Information ASSESSMENTS No Information PLAN OF TREATMENT Next Appt Details Provider Name:Orlando Burnett, 2020-04-19 0 1:20:00 PM, [address], [address], [place], [address], Provider Name:Orlando Burnett, 2020-04-26 0 1:10:00 PM, [address], [address], [place], [address], Insurance Providers Payer Name Payer Payer Insured Patient Coverage Coverage End Address Phone Name Relationship to Start Date Godfrey e Insured [facility] [phone] [facility] [address] [facility] [address] formerly [facility] [phone]
--- OUTSIDE RECORDS SUMMARY | 2020-02-23 16:47 | XMS REPORT ---
:1965 Author Organization [facility] Address [address], [address] [place] [address] Care Team Providers Name Role Phone Sullivan Unavailable [phone] PROBLEMS Type Condition ICD9-CM [id number] Onset Condition SNOMED Code Notes Code Code Dates Status Problem Controlled type 2 E11.9 Active 199852625 diabetes mellitus without complication, without long-term current use of insulin Problem Bipolar affective F31.30 Active 733530455 disorder, current episode depressed, current episode severity unspecified Problem Depression with F41.8 Active 93840745 anxiety Problem Chronic pain G89.4 Active 607461913 syndrome Problem HTN I10 Active 75595449 (hypertension), benign Problem Primary M17.12 Active 715762694343573 osteoarthritis of left knee Problem Seasonal J30.2 Active 179665872 allergies Problem Hypercalcemia E83.52 Active 54612366 Problem Mixed E78.2 Active 540603092 hyperlipidemia Problem Neuropathy G62.9 Active 180272619 Problem GERD without K21.9 Active 879219336 esophagitis Problem History of CVA Z86.73 Active 716933256 (cerebrovascular accident) without residual deficits Problem Constipation, K59.00 Active 44221064 unspecified constipation type ALLERGIES Allergen (clinical drug Drug/Non Drug Allergy Reaction Allergy Type Onset Date Status ingredient) documented on EMR Sulfa Unknown Drug Allergy Active ENCOUNTERS from 1965 to 2020-02-01 Encounter Location Date Provider Diagnosis [facility] [address] Jan, Long Sullivan Pain in joint of left [facility] [address] [place] knee M25.562 ; Primary [place], [place] osteoarthritis of left [address] knee M17.12 ; A cute pain of left kn ee M25.562 ; Synov ial cyst of popliteal [...] No Information VITAL SIGNS Height 63 in Jan, Weight 258 lbs Jan, BMI 45.7 kg/m2 Jan, Blood pressure systolic 120 mm Hg Jan, Blood pressure diastolic 85 mm Hg Jan, MEDICATIONS Medication SIG (Take, Route, Notes Start [...] day Lidocaine Active Clopidogrel Bisulfate Act alf Ghffbijfvk-YQDI-Gjyglyra 1 tablet as needed Jan, Active 50-325-40 [...] 1 tablet Orally Active Twice a day Oxqcgrslux-UKE-Nkovorgm 1 capsule as needed Active 50-325-40 MG [...] Information RESULTS No Results REASON FOR VISIT FU LEFT KNEE PAIN- WANTS BURSA DRAINED MEDICAL (GENERAL) HISTORY Type Description Date Medical [...] left knee([place]) 2011 Surgical History left foot [place] 2013 Hospitalization History chest pain 03/2018 Hospitalization History [facility] -chest pains 12/08/19 Goals Section No Information Health Concerns No Information MEDICAL EQUIPMENT No Information MENTAL STATUS No Information FUNCTIONAL STATUS No Information ASSESSMENTS Encounter Date Diagnosis Assessment Notes Treatment Notes Treatm ent Clinical Notes Jan, Pain in joint of left knee (ICD-10 - M25.562) Jan, Primary -continue with osteoarthritis of conservative left knee (ICD-10 - treatment measures M17.12) including NSAIDs and home exercise program -past MRI negative for meniscal pathology and demonstrates possible lipoma in area of swelling/mass -will work up new mass/cyst of the posterior leg at this time Jan, Acute pain of left knee (ICD-10 - M25.562) Jan, Synovial cyst of popliteal space [Razo], left knee (ICD-10 - M71.22) Jan, Lipoma of left lower -given smaller extremity (ICD-10 - mass, cyst noted D17.24) at this time, will further evaluate starting with ultrasound and possible repeat MRI of the left knee, calf -f/u after completion of the studies to discuss definitive treatment PLAN OF TREATMENT Treatment Notes Assessment Notes Clinical Notes Primary osteoarthritis of left knee -continue with conservat alf treatment measures including NSAIDs and home exercise program-past MRI negative for meniscal pathology and demonstrates possible lipoma in area of swelling/mass-will work up new mass/cyst of the posterior leg at this time Lipoma of left lower extremity -given smaller mass, cyst not ed at this time, will further evaluate starting with ultrasound and possible repeat MRI of the left knee, calf-f/u after completion of the studies to discuss definitive treatment Treatment Notes Test Name Order Date X-RAY EXAM KNEE 1 OR 2 VIEWS ([id number]) 2020-02-01 X-RAY EXAM KNEE STANDING VIEW ([id number]) 2020-02-01 Extremity Venous [facility] 2020-02-01 Next Appt Details f/u after ultrasound of left leg Reason: Provider Name:Orlando Burnett, 2020-04-19 0 1:20:00 PM, [address], [address], [place], [address], Provider Name:Orlando Burnett, 2020-04-26 0 1:10:00 PM, [address], [address], [place], [address], Insurance Providers Payer Name Payer Payer Insured Patient Coverage Coverage End Address Phone Name Relationship to Start Date Godfrey e Insured [phone] [facility] [address] [facility] [id number]
--- OUTSIDE RECORDS SUMMARY | 2020-02-23 16:47 | XMS REPORT ---
:1965 Author Organization [facility] Address [address], [address] [place] [address] Care Team Providers Name Role Phone Burnett Unavailable [phone] PROBLEMS Type Condition ICD9-CM [id number] Onset Condition SNOMED Code Notes Code Code Dates Status Problem Controlled type 2 E11.9 Active 727451931 diabetes mellitus without complication, without long-term current use of insulin Problem Bipolar affective F31.30 Active 305701723 disorder, current episode depressed, current episode severity unspecified Problem Depression with F41.8 Active 22445845 anxiety Problem Chronic pain G89.4 Active 331325551 syndrome Problem HTN I10 Active 91925480 (hypertension), benign Problem Primary M17.12 Active 776061896485428 osteoarthritis of left knee Problem Seasonal J30.2 Active 654813271 allergies Problem Hypercalcemia E83.52 Active 17714304 Problem Mixed E78.2 Active 962580040 hyperlipidemia Problem Neuropathy G62.9 Active 536852301 Problem GERD without K21.9 Active 198942914 esophagitis Problem History of CVA Z86.73 Active 176755064 (cerebrovascular accident) without residual deficits Problem Constipation, K59.00 Active 54848344 unspecified constipation type ALLERGIES Allergen (clinical drug Drug/Non Drug Allergy Reaction Allergy Type Onset Date Status ingredient) documented on EMR Sulfa Unknown Drug Allergy Active ENCOUNTERS from 1965 to 2020-01-26 Encounter Location Date Provider Diagnosis [facility] [address] Jan, Orlando Burnett Bipolar a [address] [place], [place] [address] episode depres sed, current episode severity unspec [...] VITAL SIGNS Height 63 in Jan, Weight 263.0 lbs Jan, Temperature 98.1 degrees Fahrenheit Jan, BMI 46.58 kg/m2 Jan, Oximetry 98 % Jan, Respiratory Rate 18 /min Jan, Blood pressure systolic 132 mm Hg Jan, Blood pressure diastolic 65 mm Hg Jan, MEDICATIONS Medication SIG (Take, Route, Notes Start Date End Date Status Frequency, Duration) Amitiza 24 MCG TAKE ONE CAPSULE BY A ctive MOUTH TWICE DAILY WITH FOOD AND WATER for 30 Amitriptyline HCl 25 MG 1 tablet at bedtime Active Orally Once a day Wgoirlckpi-NUGK-Jnfbukuj 1 tablet as needed Jan, Active 50-325-40 [...] Orally TID Active Clopidogrel Bisulfate Act alf Ibdfmepxbh-YXT-Pbpnnbma 1 capsule as needed Active 50-325-40 MG [...] Information RESULTS No Results REASON FOR VISIT Follow up with lab/s MEDICAL (GENERAL) HISTORY Type Description Date Medical [...] knee([place]) 2011 Surgical History left foot [place] 2014 Hospitalization History chest pain 03/2018 Hospitalization History [facility] -chest pains 12/08/19 Goals Section No Information Health Concerns No Information MEDICAL EQUIPMENT No Information MENTAL STATUS No Information FUNCTIONAL STATUS No Information ASSESSMENTS Encounter Date Diagnosis Assessment Notes Treatment Notes Treatm ent Clinical Notes Jan, Bipolar affective Managed by [facility] disorder, [facility]. episode depressed, current episode severity unspecified (ICD-10 - F31.30) Jan, Nonintractable ED Course reviewed headache, with patient. unspecified Education given. chronicity pattern, Keep OLSON Diary. unspecified headache Discussed medication type (ICD-10 - R51) overuse OLSON. Monitor medications intake. Discussed DDX. F/u Cardio, BP adjustments. Rx for Butal/APAP/Caff given. Side effect discussed. Jan, Depression with Managed by [facility] anxiety (ICD-10 - [place]. No rx for F41.8) [place] [facility] Patient verbalized understnading. Last Xanax >30 days [...] as a psychiatrist, psychologist, nurse or social work lecturer) may be necessary to treat depression. Both treatments take time to work. If you ever feel like you might hurt yourself or some else, then call your doctor or call 911 or go to the ER. Jan, HTN (hypertension), Instructed to benign (ICD-10 - measure BP at home I10) and bring in log. Education given. Managed by Cardio. Education given. Jan, Controlled type 2 Controlled. diabetes mellitus Continue current without regimen. Diabetes complication, Education Diabetes without long-term is a disorder that current use of disrupts the way insulin (ICD-10 - your body uses E11.9) glucose (sugar). It is a chronic medication [...] may need to be adjusted and/or added. Jan, Mixed hyperlipidemia Changed to Lipitor. (ICD-10 - E78.2) Tolerating well. Education given. Hyperlipidemia Education: Hyperlipidemia [...] you have questions, talk to your doctor. Jan, Seasonal allergies (ICD-10 - J30.2) Jan, Chronic pain Managed by [facility]. syndrome (ICD-10 - G89.4) Jan, Neuropathy (ICD-10 - Managed by [facility]. G62.9) Jan, History of CVA (cerebrovascular accident) without residual deficits (ICD-10 - Z86.73) Jan, GERD without Refill given. esophagitis (ICD-10 Educated on long - K21.9) term impact. Patient verbalized understanding. Jan, Constipation, Refill given. unspecified Samples given. Side constipation type effect discussed. (ICD-10 - K59.00) Jan, Noncompliance w/medication treatment due to intermit use of medication (ICD-10 - Z91.14) Jan, Hypercalcemia Discussed DDX. (ICD-10 - E83.52) Education givne. Asymptomatic. Encouraged to make dietary changes. Will repeat Jan, Other -- Medication reviewed and updated. -- Dietary and Lifestyle modifications addressed regarding diet, exercise and weight managemen t. -- Treatment options, risks and benefits, side effects reviewed in detail. -- Advised on signs/symptoms to monitor and when to call clinic and/or visit the nearest ER. Patient verbalized understanding and agreeable with plan. PLAN OF TREATMENT Medication Medication Name Sig [...] MG 1 tablet Orally Once a day Oumgjyyrce-MMYJ-Czwoduit 50-325-40 1 tablet as needed Orally Jan, 2020 MG every 8 hrs PRN Severe OLSON [...] day Hydrocodone-Acetaminophen 7.5-500 as directed Orally MG Treatment Notes Assessment Notes Clinical Notes Bipolar affective disorder, current Managed by [facility]. episode depressed, current episode severity unspecified Nonintractable headache, ED Course reviewed with patient. unspecified chronicity pattern, Education given. Keep OLSON Abiola ry. unspecified headache type Discussed medication overuse OLSON. Monitor medications intake. Discussed DDX. F/u Cardio, BP adjustments. Rx for Butal/APAP/Caff given. Side effect discussed. Depression with anxiety Managed by [facility]. No rx for [place] from [facility]. Patient verbalized understnading. Last Xanax >30 days [...] as a psychiatrist, psychologist, nurse or social work lecturer) may be necessary to treat depression. Both [...] GERD without esophagitis Refill given. Educated on prison impact. Patient verbalized understanding. Constipation, unspecified Refill given. Samples given. Side constipation type effect discussed. Hypercalcemia Discussed DDX. Education givne. Asymptomatic. Encouraged to make dietary changes. Will repeat Treatment Notes Test Name Order Date Lipid Panel With LDL/HDL Ratio 2020-01-26 PTH, Intact 2020-01-26 Calcium, Ionized, Serum 2020-01-26 Microalbumin/Creat Ratio, Random Ur 2020-01-26 Hemoglobin A1c 2020-01-26 Comp. Metabolic Panel (14) (CMP) 2020-01-26 CBC With Differential/Platelet 2020-01-26 TSH reflex to T4F 2020-01-26 Next Appt Details 3 month TV + Labs 1 week before Reason: Provider Name:Long Sullivan, 2020-02-02 0 9:30:00 AM, [address] [facility] , [address], [place], [address], Provider Name:Orlnado Lex, 2020-04-19 0 1:20:00 PM, [address], [address], [place], [address], Provider Name:Orlandomargarita Burnett, 2020-04-26 0 1:10:00 PM, [address], [address], [place], [address], Insurance Providers Payer Name Payer Payer Insured Patient Coverage Coverage End Address Phone Name Relationship to Start Date Godfrey e Insured [facility] [phone] [facility] [address] [address] [facility] [phone]
--- OUTSIDE RECORDS SUMMARY | 2020-02-23 16:47 | XMS REPORT ---
:1965 Author Organization [facility] Address [address] [place] [address] Care Team Providers Name Role Phone Sullivan Unavailable [phone] PROBLEMS Type Condition ICD9-CM [id number] Onset Condition SNOMED Code Notes Code Code Dates Status Problem Controlled type 2 E11.9 Active 610582332 diabetes mellitus without complication, without long-term current use of insulin Problem Bipolar affective F31.30 Active 189684373 disorder, current episode depressed, current episode severity unspecified Problem Depression with F41.8 Active 13574433 anxiety Problem Chronic pain G89.4 Active 534952297 syndrome Problem HTN I10 Active 17007758 (hypertension), benign Problem Primary M17.12 Active 839624560185321 osteoarthritis of left knee Problem Seasonal J30.2 Active 085446547 allergies Problem Hypercalcemia E83.52 Active 99262424 Problem Mixed E78.2 Active 145262330 hyperlipidemia Problem Neuropathy G62.9 Active 442936370 Problem GERD without K21.9 Active 525034062 esophagitis Problem History of CVA Z86.73 Active 219044419 (cerebrovascular accident) without residual deficits Problem Constipation, K59.00 Active 92290736 unspecified constipation type ALLERGIES Allergen (clinical drug Drug/Non Drug Allergy Reaction Allergy Type Onset Date Status ingredient) documented on EMR Sulfa Unknown Drug Allergy Active ENCOUNTERS from 1965 to 2020-01-28 Encounter Location Date Provider Diagnosis [facility] [address] Jan, [place] [address] IMMUNIZATIONS Vaccine Route Administration Date Status Flucelvax [...] at bedtime Active Orally Once a day Ssvqguwxjl-ICOD-Bhlojybk 1 tablet as needed Jan, Active 50-325-40 [...] Orally TID Active Clopidogrel Bisulfate Act alf Hdaypnbmlw-RZF-Sjqasaam 1 capsule as needed Active 50-325-40 MG [...] Information RESULTS No Results REASON FOR VISIT Pain/Bursa MEDICAL (GENERAL) HISTORY Type Description Date Medical [...] History Fibroid Cysts 2017 Surgical History left knee([place]) 2012 Surgical History left foot [place] 2014 [...] MG 1 tablet Orally Once a day Sogrgguzuv-TZBL-Xozsndcg 50-325-40 1 tablet as needed Orally Jan, [...] AM, [address], [place], [address], Provider Name:Long Sullivan 2020-02-02 0 9:30:00 AM, [address], [place], [address], Provider Name:Orlando Burnett, 2020-04-19 0 1:20:00 PM, [address], [address], [place], [address], Provider Name:Orlando Burnett 2020-04-26 0 1:10:00 PM, [address], [address], [place], [address], Insurance Providers Payer Name Payer Payer Insured Patient Coverage Coverage End Address Phone Name Relationship to Start Date Godfrey e Insured [facility] [phone] [facility] [address] [address] [facility] [address]
--- NOTE | 2020-02-23 17:34 | RAD REPORT ---
EXAM DESCRIPTION: RAD - C Spine Ap/Lat - 02/23/2020 5:22 pm CLINICAL HISTORY: Neck pain FINDINGS: No fracture or dislocation is seen. Minimal spondylosis involves mid and distal cervical spine
--- NOTE | 2020-02-23 17:35 | RAD REPORT ---
EXAM DESCRIPTION: RAD - Shoulder Right 2 View - 02/23/2020 5:21 pm CLINICAL HISTORY: Right shoulder pain FINDINGS: No fracture or dislocation is seen. Mild to moderate osteoarthritis involves the AC joint consisting of osteophytes and joint space narrowing
[2020-02-23] MEDS ORDERED: MORPHINE 4 MG/ML SYR ONE (17:41)
[2020-02-23] MEDS ORDERED: dexAMETHasone 10 MG/ML VIAL ONE (17:41)
--- NOTE | 2020-02-23 17:43 | EDPHYS ---
Physician Documentation [facility] Name: Che Helton Age: 54 yrs Sex: Female : 1965 Arrival Date: 02/23/2020 Time: 16:44 Bed 26 Private MD: ED Physician Giovanni Xiong HPI: 02/22 17:02 This 54 yrs old Black Female presents to ER via Unassigned with complaints of right arm rn pain. 17:02 The patient or guardian complains of pain, that is acute. The complaints affect the rn anterior aspect of right shoulder, right bicep, right antecubital area and dorsal aspect of right forearm. 17:05 Onset: The symptoms/episode began/occurred yesterday. Modifying factors: The symptoms rn are alleviated by remaining still, the symptoms are aggravated by movement, lifting weight. Severity of symptoms: At their worst the symptoms were moderate, in the emergency department the symptoms are unchanged. The patient has not experienced similar symptoms in the past. The patient has not recently seen a physician. Reports began yesterday with right shoulder and upper arm pain, no pain when at rest, worse and pain comes on with rotation and lifting right arm. No injury or recent overuse that patient can recall. No weakness. No chest pain or sob. + hx of back problems and radiculopathy but states no previous problems with right arm in past. . Historical: - Allergies: 17:05 Sulfa (Sulfonamide Antibiotics); vg1 17:05 PENICILLINS; vg1 - Home Meds: 17:05 atorvastatin Oral nightly [Active]; Cymbalta 30mg in the morning, 60mg at night Oral vg1 [Active]; metformin 500 mg Oral tab 1 tab 2 times per day [Active]; Seroquel 25 mg Oral tab 1 tab nightly [Active]; Plavix 75 mg Oral tab 1 tab once daily [Active]; [place] Oral as needed [Active]; multivitamin with minerals Oral daily [Active]; metoprolol tartrate 25 mg Oral tab 1 tab once daily [Active]; - PMHx: 17:05 ADD/ADHD; Bipolar disorder; Anxiety; Depression; Diabetes - NIDDM; Hyperlipidemia; vg1 Hypertension; Myocardial infarction; stroke; - Immunization history:: Adult Immunizations up to date, Flu vaccine status is unknown. - Social history:: Smoking status: unknown. - Family history:: not pertinent. - Hospitalizations: : No recent hospitalization is reported. ROS: 17:05 Constitutional: Negative for fever, chills, and weight loss, Eyes: Negative for injury, rn pain, redness, and discharge, Neck: Negative for injury, pain, and swelling, Cardiovascular: Negative for chest pain, palpitations, and edema, Respiratory: Negative for shortness of breath, cough, wheezing, and pleuritic chest pain, Abdomen/GI: Negative for abdominal pain, nausea, vomiting, diarrhea, and constipation, Back: Negative for injury and pain, MS/Extremity: Negative for injury and deformity, Skin: Negative for injury, rash, and discoloration, Neuro: Negative for headache, weakness, numbness, tingling, and seizure. Exam: 17:05 Constitutional: This is a well developed, well nourished patient who is awake, alert, rn and in no acute distress. Head/Face: Normocephalic, atraumatic. Neck: Trachea midline, no masses palpated, and no cervical lymphadenopathy. Supple, full range of motion without nuchal rigidity, or vertebral point tenderness. No Meningismus. Chest/axilla: Normal chest wall appearance and motion. Nontender with no deformity. No lesions are appreciated. Cardiovascular: Regular rate and rhythm. No pulse deficits. Respiratory: No increased work of breathing, no retractions or nasal flaring. Abdomen/GI: soft, non-tender Skin: Warm, dry MS/ Extremity: Pulses equal, no cyanosis. NV intact. No focal tenderness. + painful ROM with rotation of right shoulder and elevation. No pain with ROM or palpation of wrist or elbow. No skin changes. Neuro: Awake and alert, GCS 15, oriented to person, place, time, and situation. Cranial nerves II-XII grossly intact. Motor strength 5/5 in all extremities. Sensory grossly intact. 17:09 ECG was reviewed by the Attending Physician. rn Vital Signs: 16:50 BP 131 / 59; Pulse 85; Resp 18; Pulse Ox 96% on R/A; Weight 109.77 kg; Height 5 ft. 3 vg1 in. (160.02 cm); Pain 10/10; 16:50 Body Mass Index 42.87 (109.77 kg, 160.02 cm) vg1 MDM: 16:47 Patient medically screened. rn 17:40 Differential diagnosis: arthritis, radiculopathy. Data reviewed: vital signs, nurses rn notes, radiologic studies, plain films, and as a result, I will discharge patient. Counseling: I had a detailed discussion with the patient and/or guardian regarding: the historical points, exam findings, and any diagnostic results supporting the discharge/admit diagnosis, radiology results, the need for outpatient follow up, to return to the emergency department if symptoms worsen or persist or if there are any questions or concerns that arise at home. Response to treatment: the patient's symptoms have mildly improved after treatment, and as a result, I will discharge patient. Special discussion: I discussed with the patient/guardian in detail that at this point there is no indication for admission to the hospital. It is understood, however, that if the symptoms persist or worsen the patient needs to return immediately for re-evaluation. 02/22 16:46 Order name: XRAY Shoulder RIGHT 2 view; Complete Time: 17:40 rn 02/22 16:46 Order name: XRAY C Spine Ap/lat; Complete Time: 17:40 rn 02/22 16:46 Order name: EKG; Complete Time: 16:47 rn 02/22 16:46 Order name: EKG - Nurse/Tech; Complete Time: 17:05 rn EC:09 Rate is 83 beats/min. Rhythm is regular. QRS [place] is Normal. NV interval is normal. QRS rn interval is normal. QT interval is normal. No Q waves. T waves are Normal. No ST changes noted. Clinical impression: NSR w/ Non-specific ST/T Changes. Interpreted by me. Reviewed by me. Administered Medications: 17:37 Drug: morphine 4 mg {Note: rass 0.} Route: IM; Site: right vastus lateralis; vg1 18:19 Follow up: Response: RASS: Alert and Calm (0) vg1 17:38 Drug: Decadron 10 mg Route: IM; Site: right vastus lateralis; vg1 18:19 Follow up: Response: No adverse reaction vg1 Disposition: 02/23/20 17:42 Discharged to Home. Impression: Primary osteoarthritis, right shoulder, Radiculopathy, cervical region. - Condition is Stable. - Discharge Instructions: Arthritis, Cervical Radiculopathy. - Prescriptions for Medrol ([place]) 4 mg Oral Tablets, Dose Pack - take 1 tablet by ORAL route as directed - follow package instructions; 1 packet. - Medication Reconciliation Form, Thank You Letter, Antibiotic Education, Prescription Opioid Use form. - Follow up: Private Physician; When: As needed; Reason: Recheck today's complaints, Re-evaluation by your physician. - Problem is new. - Symptoms have improved. Signatures: Dispatcher [employer] EDGiovanni Howell MD MD rn David, JULIEN Cavanaugh RN vg1 Corrections: (The following items were deleted from the chart) 18:22 17:42 02/23/2020 17:42 Discharged to Home. Impression: Primary osteoarthritis, right vg1 shoulder; Radiculopathy, cervical region. Condition is Stable. Forms are Medication Reconciliation Form, Thank You Letter, Antibiotic Education, Prescription Opioid Use. Follow up: Private Physician; When: As needed; Reason: Recheck today's complaints, Re-evaluation by your physician. Problem is new. Symptoms have improved. rn
--- NOTE | 2020-02-23 17:43 | ER ---
Nurse's Notes [facility] Name: Che Helton Age: 54 yrs Sex: Female : 1965 Arrival Date: 02/23/2020 Time: 16:44 Bed 26 Private MD: Diagnosis: Primary osteoarthritis, right shoulder;Radiculopathy, cervical region Presentation: 02/22 16:50 Chief complaint: EMS states: Numbness and weakness in Right shoulder that radiates to vg1 right of neck. Limited ROM in right shoulder. Pain began yesterday around 1500 and is gradually becoming worse. 16:50 Method Of Arrival: EMS: [facility] vg1 16:50 Coronavirus screen: Client denies travel out of the [place] in the last 14 days. Ebola vg1 Screen: Patient negative for fever greater than or equal to 101.5 degrees Fahrenheit, and additional compatible Ebola Virus Disease symptoms. Initial Sepsis Screen: Does the patient meet any 2 criteria? No. Patient's initial sepsis screen is negative. Does the patient have a suspected source of infection? No. Patient's initial sepsis screen is negative. Risk Assessment: Do you want to hurt yourself or someone else? Patient reports no desire to harm self or others. Onset of symptoms was February 22, 2020. 16:50 Acuity: NELY 3 vg1 Triage Assessment: 16:50 General: Appears in no apparent distress. comfortable, Behavior is calm, cooperative. vg1 Historical: - Allergies: 17:05 Sulfa (Sulfonamide Antibiotics); vg1 17:05 PENICILLINS; vg1 - Home Meds: 17:05 atorvastatin Oral nightly [Active]; Cymbalta 30mg in the morning, 60mg at night Oral vg1 [Active]; metformin 500 mg Oral tab 1 tab 2 times per day [Active]; Seroquel 25 mg Oral tab 1 tab nightly [Active]; Plavix 75 mg Oral tab 1 tab once daily [Active]; [place] Oral as needed [Active]; multivitamin with minerals Oral daily [Active]; metoprolol tartrate 25 mg Oral tab 1 tab once daily [Active]; - PMHx: 17:05 ADD/ADHD; Bipolar disorder; Anxiety; Depression; Diabetes - NIDDM; Hyperlipidemia; vg1 Hypertension; Myocardial infarction; stroke; - Immunization history:: Adult Immunizations up to date, Flu vaccine status is unknown. - Social history:: Smoking status: unknown. - Family history:: not pertinent. - Hospitalizations: : No recent hospitalization is reported. Screenin:50 Abuse screen: Denies threats or abuse. Nutritional screening: No deficits noted. vg1 Tuberculosis screening: No symptoms or risk factors identified. Fall Risk No fall in past 12 months (0 pts). No secondary diagnosis (0 pts). No IV (0 pts). Ambulatory Aid- None/Bed Rest/Nurse Assist (0 pts). Gait- Normal/Bed Rest/Wheelchair (0 pts) Mental Status- Oriented to own ability (0 pts). Total Faulkner Fall Scale indicates No Risk (0-24 pts). Assessment: 16:50 General: Appears in no apparent distress. comfortable, Behavior is calm, cooperative. vg1 Pain: Complains of pain in Right shoulder and right side of neck Pain radiates to to right side of neck Pain currently is 10 out of 10 on a pain scale. 16:50 Neuro: Level of Consciousness is awake, alert, obeys commands, Oriented to person, vg1 place, time, situation, [employer] Sales Representative are equal bilaterally. Cardiovascular: Capillary refill < 3 seconds in bilateral fingers. Respiratory: Airway is patent Respiratory effort is even, unlabored, Respiratory pattern is regular, symmetrical. GI: No signs and/or symptoms were reported involving the gastrointestinal system. : No signs and/or symptoms were reported regarding the genitourinary system. EENT: No signs and/or symptoms were reported regarding the EENT system. Derm: Skin is intact, is healthy with good turgor. Musculoskeletal: Range of motion: limited in right shoulder. Vital Signs: 16:50 BP 131 / 59; Pulse 85; Resp 18; Pulse Ox 96% on R/A; Weight 109.77 kg; Height 5 ft. 3 vg1 in. (160.02 cm); Pain 10/10; 16:50 Body Mass Index 42.87 (109.77 kg, 160.02 cm) vg1 ED Course: 16:44 Patient arrived in ED. rn 16:47 Giovanni Xiong MD is Attending Physician. rn 16:50 Arm band placed on. vg1 16:50 Patient has correct armband on for positive identification. Placed in gown. Call light vg1 in reach. Side rails up X 1. Adult w/ patient. Pulse ox on. NIBP on. 17:00 Afshan Hernandez, RN is Primary Nurse. vg1 17:03 Triage completed. vg1 17:05 EKG done, by ED staff, reviewed by Giovanni Xiong MD. jb1 17:10 Patient moved to radiology via wheelchair. vg1 17:18 XRAY Shoulder RIGHT 2 view In Process Unspecified. EDMS 17:18 XRAY C Spine Ap/lat In Process Unspecified. EDMS 17:23 Patient moved back from radiology. vg1 18:19 No provider procedures requiring assistance completed. Patient did not have IV access vg1 during this emergency room visit. Administered Medications: 17:37 Drug: morphine 4 mg {Note: rass 0.} Route: IM; Site: right vastus lateralis; vg1 18:19 Follow up: Response: RASS: Alert and Calm (0) vg1 17:38 Drug: Decadron 10 mg Route: IM; Site: right vastus lateralis; vg1 18:19 Follow up: Response: No adverse reaction vg1 Outcome: 17:42 Discharge ordered by . rn 18:19 Discharged to home via wheelchair, with family. vg1 18:19 Condition: stable 18:19 Discharge instructions given to patient, Instructed on discharge instructions, follow up and referral plans. medication usage, Demonstrated understanding of instructions, follow-up care, medications, Prescriptions given X 1. 18:22 Patient left the ED. vg1 Signatures: Dispatcher [employer] ED Gabino Gallegos jb1 Giovanni Xiong MD MD rn Garcia, Victoria RN RN vg1 Corrections: (The following items were deleted from the chart) 30 00:31 12 18:19 Discharge instructions given to patient, Instructed on discharge vg1 instructions, follow up and referral plans. medication usage, Demonstrated understanding of instructions, follow-up care, medications, vg1
[2020-02-23 18:29] VITALS: BP 131/59; O2SAT 96
--- NOTE | 2020-02-26 16:17 | EKG ---
Test Date: 2020-02-23 Test Time: 16:55:27 Software Architect: MANGO MEASUREMENT RESULTS: Intervals: Rate: 83 [place]: 172 QRSD: 102 QT: 408 QTc: 479 [place]: P: 59 [place]: 172 QRS: -16 T: 80 INTERPRETIVE STATEMENTS: Sinus rhythm with sinus arrhythmia with occasional premature ventricular complexes Voltage criteria for left ventricular hypertrophy Abnormal ECG Compared to ECG 12/08/2019 16:44:27 Ventricular premature complex(es) now present Atrial abnormality no longer present Prolonged QT interval no longer present Electronically Signed On 02-26-20 16:10:15 PHYSICIAN SUPPORT COORDINATOR by Giovanni Brewster
== END 2020-02-23 18:22 | disposition home or self-care (01) ==
LOC: ER 16:41
DX: M19.011 Primary osteoarthritis, right shoulder (principal); M54.12 Radiculopathy, cervical region; I10 Essential (primary) hypertension; F31.9 Bipolar disorder, unspecified; E11.9 Type 2 diabetes mellitus without complications; Z79.01 Long term (current) use of anticoagulants; Z88.0 Allergy status to penicillin; Z88.2 Allergy status to sulfonamides
CPT/HCPCS: 93005; 72040; 73030; 96372; 99284; J1100

== ENCOUNTER 2020-04-17 15:11 | Emergency (ER) | payer OTHER ==
--- OUTSIDE RECORDS SUMMARY | 2020-04-17 15:24 | XMS REPORT | Clinical Summary ---
:1965 Author Organization [facility] Address [address] [place] [address] Care Team Providers Name Role Phone Lynnette [...] History of gastric surgery 08/31/2015 History of [place] (myocardial infarction) 08/31/2015 H/O section 08/31/2015 Smoking history 08/31/2015 Acute CVA (cerebrovascular accident) 08/30/2015 Social History Tobacco Use Types Packs/Day Years Used Date Never Smoker Alcohol Use Drinks/Week oz/Week Comments No Sex Assigned at Date Recorded Not on file Last Filed Vital Signs Not on file Plan of Treatment Not on file Results Not on fileafter 04/17/2019 Insurance Payer Benefit Plan / Subscriber ID Effective Dates Phone Addre ss Type Group [place] MED[place] MEDICAID [place] [id number] 2015-Present Advance Directives For more information, please contact: [phone] Code Status Date Activated Date Inactivated Comments Full Code 09/07/2015 9:59 PM 09/08/2015 3:23 PM This code status was determined by: Patient Full Code 08/30/2015 7:48 PM 09/01/2015 2:01 PM This code status was determined by: Patient
--- OUTSIDE RECORDS SUMMARY | 2020-04-17 15:25 | XMS REPORT | Continuity of Care Document ---
:1965 Author Organization [facility] t Address [address] [place] [address] Care Team Providers Name Role Phone Lynnette Lozano MD Primary Care Physician Han DOTY Attending Clinician Problems Condition Condition Condition [...] Center Aphasia Aphasia Disease Active [facility] 00 Center HTN HTN Disease Active [facility] (hypertens (hypertens 08-30 [facility] kes - ion) ion) 00:00: Medical 00 Center Metabolic Metabolic Disease Active [facility] syndrome syndrome 08-30 [facility] Morbid Morbid Disease Active [facility] obesity obesity 08-30kes - 00:00: Medical 00 [place] History of History of Disease Active [facility] gastric gastric 08-30 [facility] - surgery surgery 00:00: Medical [address] [place] [address] History of History of Disease Active [facility] UT UT 08-30 [facility] (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 00:00: Vt dical l l 00 Pimento infarction infarction ) ) H/O H/O Disease Active [facility]30 [facility] - section section 00:00: Medical [address] [place] [address] Smoking Smoking Disease Active [facility] history history 08-30 kes - 00:00: Medical 00 [place]imento Type 2 Type [address] [facility] diabetes diabetes 08-30 [facility] mellitus mellitus 00:00: Medica l 00 [place]imento Acute CVA Acute CVA Disease Active [facility] (cerebrova (cerebrova 08-29 [facility] scular 00:00: Medical accident) accident) 00 Cent er Allergies, Adverse Reactions, Alerts Allergy Allergy Status Severity Reaction(s) Onset Inactive Treating Comm ents Source Name Type Date Date Clinician Morphine Drug Active Rash [facility] Sulfa Drug Active Rash [facility] St (Sulfona Allergy [facility] Antibiot Pimento ics) Sulfa Adverse Active Info Not [facility] Reaction Available [facility] ent Clinics Social History Social Habit Start Date Stop Date Quantity Comments Source Sex Assigned At [facility] Alcohol intake 2015-09-08 2015-09-08 Current [facility] es - 00:00:00 00:00:00 non-drinker of Medical Ce nter alcohol (finding) Smoking Status Start Date Stop Date Source Never smoker [facility] edical Pimento Medications Ordered Filled Start Stop Current Ordering [...] mouth [facility] 13:[facility] Metformin Metformin Yes [place] 1 tablet [...] [address] [facility] ent Clinics Dyazide Dyazide Yes [place] [address] [facility] in the [facility] - morning [facility] ent Clinics Amitriptyli Amitriptyli Yes [place] [address] ne HCl ne HCl Burn[place] at bedtime Salix s [facility] ent Clinics Atorvastati Atorvastati Yes [place] [address] n Calcium n Calcium Burnett Salix s [facility] ent Clinics Linzess Linzess Yes [place] [address] [facility] at least [facility] - 30 minutes Memoria before the l first meal Outpati of the day ent on an Clinics empty stomach Amitiza Amitiza Yes [place] [address] [facility] with food [facility] - and water [facility] ent Clinics Alprazolam Alprazolam Yes [place] [address] ent Clinics Immunizations Ordered Filled Immunization Date Status Comments [facility] e Immunization Name Name Flucelvax - Flucelvax - 2019-04-[address] - multidose vial multidose vial 00:00:00 [facility] Outpatient Clinics Procedures This patient has no known procedures. Encounters Start End Encounter Admission Attending Care Care Encounter Source Date/Time Date/Time Type Type Clinicians Facility Department ID 2020-03-21 2020-03-21 Outpatient [facility] [id number] [facility] 2020-03-21 2020-03-21 Outpatient [facility] [id number] [facility] 2020-02-01 2020-02-01 Out[facility] [id number] [facility] 2020-01-29 2020-01-29 Outpatient [facility] [id number] [facility] 2020-01-27 2020-01-27 Out[facility] [id number] [facility] 2020-01-26 2020-01-26 Out[facility] [id number] [facility] 2020-01-07 2020-01-07 Out[facility] [id number] [facility] 2020-01-06 2020-01-06 Outpatient [facility] [id number] [facility] 2019-12-24 2019-12-24 Telephone [facility] [id number] 00:00:00 00:00:00 Cristina Guevara [id number] [place] [id number] Professio [id number] [address] 2019-12-22 2019-12-22 Office [facility] [id number] 16:16:32 16:44:34 Visit Cristina Guevara [id number] [place] [id number] Professio [id number] [address] 2019-12-17 2019-12-17 Outpatient [facility] [id number] [facility] 2019-12-14 2019-12-14 Outpatient [facility] [id number] [facility] 2019-07-15 2019-07-15 [facility] [id number] [address] 13:15:00 13:15:00 t DNA Direct [facility] Outpati ent Clinics 2019-05-11 2019-05-11 [facility] [id number] 15:30:00 15:30:00 t Bone Bone and [facility] Clinic of [facility] ent Clinics 2019-05-04 2019-05-04 [facility] [id number] 09:30:00 09:30:00 t Bone Bone and [facility] 2019-04-27 2019-04-27 [facility] [id number] 15:30:00 15:30:00 t Bone Bone and [facility] ent [facility] 2019-04-16 2019-04-16 [facility] [id number] 13:00:00 13:00:00 t Wisner [employer] [facility] 2019-04-08 2019-04-08 [facility] [id number] 16:19:00 16:19:00 t Bone Bone and [facility] - [facility] ent [facility] 2019-04-07 2019-04-07 [facility] [id number] 08:00:00 08:00:00 t Bone Bone and [facility] ent [facility] 2019-04-02 2019-04-02 [facility] [id number] 11:30:00 11:30:00 t Wisner Wisner [facility] 2019-03-31 2019-03-31 [facility] [id number] 16:13:00 16:13:00 t Bone Bone and [facility] ent [facility] 2019-03-26 2019-03-26 [facility] [id number] 13:16:00 13:16:00 t [facility] [employer] [facility] 2019-03-26 2019-03-26 [facility] [id number] 12:59:00 12:59:00 t Bone Bone and [facility] 2019-03-05 2019-03-05 [facility] [id number] 08:38:00 08:38:00 t Bone Bone and [facility] ent [facility] 2019-03-04 2019-03-04 [facility] [id number] 09:30:00 09:30:00 t Bone Bone and [facility] 2019-03-03 2019-03-03 [facility] [id number] 16:25:00 16:25:00 t Bone Bone and [facility] 2019-02-26 2019-02-26 [facility] [id number] 09:10:00 09:10:00 t Bone Bone and [facility] 2019-02-13 2019-02-13 [facility] [id number] 13:36:00 13:36:00 t ICONOGRAFICO [employer] [facility] 2019-02-11 2019-02-11 [facility] [id number] 11:21:00 11:21:00 t Bone Bone and [facility] 2019-02-09 2019-02-09 [facility] [id number] 14:30:00 14:30:00 t Bone Bone and [facility] 2019-02-05 2019-02-05 [facility] [id number] 13:45:00 13:45:00 t Audioms [facility] 2019-01-28 2019-01-28 [facility] [id number] 07:54:00 07:54:00 t Bone Bone and [facility] ent Clinics 2019-01-26 2019-01-26 [facility] [id number] 15:10:00 15:10:00 t DNA Direct [facility] 2019-01-21 2019-01-21 Outpatient [facility] [id number] 13:00:00 13:00:00 Strategic [employer] [facility] 2018-02-03 2018-02-03 Out[facility] [place] [id number] 16:06:00 16:06:00 Strategic [employer] [facility] Results This patient has no known results.
--- NOTE | 2020-04-17 17:14 | ER ---
Nurse's Notes [facility] Name: Che Helton Age: 54 yrs Sex: Female : 1965 Arrival Date: 04/17/2020 Time: 15:14 Bed 18 Private MD: Orlando Burnett Diagnosis: Sciatica, right side Presentation: 04/17 15:24 Chief complaint: Patient states: Lower back pain, more on the R, radiating on the R ca1 leg, toes tingling since yesterday. Coronavirus screen: Client denies travel out of the [place] in the last 14 days. At this time, the client does not indicate any symptoms associated with coronavirus-19. Ebola Screen: Patient negative for fever greater than or equal to 101.5 degrees Fahrenheit, and additional compatible Ebola Virus Disease symptoms Patient denies exposure to infectious person. Patient denies travel to an Ebola-affected area in the 21 days before illness onset. No symptoms or risks identified at this time. Initial Sepsis Screen: Does the patient meet any 2 criteria? No. Patient's initial sepsis screen is negative. Does the patient have a suspected source of infection? No. Patient's initial sepsis screen is negative. Risk Assessment: Do you want to hurt yourself or someone else? Patient reports no desire to harm self or others. Onset of symptoms was April 17, 2020. 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 - Social history:: Smoking status: Patient reports the use of cigarette tobacco products, smokes one-half pack cigarettes per day. Screenin:55 Abuse screen: Denies threats or abuse. Nutritional screening: No deficits noted. jd3 Tuberculosis screening: No symptoms or risk factors identified. Fall Risk None identified. Assessment: 17:13 Reassessment: got an appointment for her PCP tomorrow. iw 18:30 General: Appears in no apparent distress. comfortable, Behavior is calm, cooperative, jd3 appropriate for age. Pain: Complains of pain in right leg Quality of pain is described as aching. Neuro: Level of Consciousness is awake, alert, obeys commands, Oriented to person, place, time, situation. Cardiovascular: Denies chest pain, Capillary refill < 3 seconds Patient's skin is warm and dry. Respiratory: Airway is patent Respiratory effort is even, unlabored, Respiratory pattern is regular, symmetrical, Denies cough, shortness of breath. GI: No signs and/or symptoms were reported involving the gastrointestinal system. : No signs and/or symptoms were reported regarding the genitourinary system. EENT: No signs and/or symptoms were reported regarding the EENT system. Derm: Skin is intact, Skin is dry, Skin is normal, Skin temperature is warm. Musculoskeletal: Circulation, motion, and sensation intact. Range of motion: intact in all extremities. 18:55 Reassessment: Patient and/or family updated on plan of care and expected duration. Pain jd3 level reassessed. Patient is alert, oriented x 3, equal unlabored respirations, skin warm/dry/pink. even and steady gait to meet up with family at front of ER for discharge. Vital Signs: 15:24 BP 139 / 64; Pulse 80; Resp 16 S; Temp 97.4(TE); Pulse Ox 99% on R/A; Weight 105.69 kg ca1 (R); Height 5 ft. 3 in. (160.02 cm) (R); Pain 10/10; 18:56 Pulse 80; Resp 16 S; Pulse Ox 99% on R/A; jd3 15:24 Body Mass Index 41.27 (105.69 kg, 160.02 cm) ca1 ED Course: 15:14 Patient arrived in ED. ag5 15:14 Orlando Burnett DO is Private Physician. ag5 15:25 Triage completed. ca1 15:26 Arm band placed on right wrist. ca1 17:51 Jam Bates PA is PHCP. jmm 17:51 Giovanni Xiong MD is Attending Physician. jmm 18:30 Paul Willoughby RN is Primary Nurse. jd3 18:56 Patient has correct armband on for positive identification. Bed in low position. Call jd3 light in reach. Side rails up X 1. Pulse ox on. NIBP on. 18:56 No provider procedures requiring assistance completed. Patient did not have IV access jd3 during this emergency room visit. Administered Medications: 18:37 Drug: Dilaudid 1 mg Route: IM; Site: right deltoid; jd3 18:57 Follow up: Response: No adverse reaction; RASS: Alert and Calm (0) jd3 18:37 Drug: Zofran (Ondansetron) 4 mg Route: PO; jd3 18:57 Follow up: Response: No adverse reaction jd3 Outcome: 17:13 Patient left the ED. iw 18:32 Discharge ordered by . flako 18:56 Discharged to home ambulatory, with family. jd3 18:56 Condition: stable 18:56 Discharge instructions given to patient, Instructed on discharge instructions, follow up and referral plans. medication usage, Demonstrated understanding of instructions, follow-up care, medications, Prescriptions given X 1. 18:57 Patient left the ED. jd3 Signatures: Jam Bates PA PA jmm Williams, Irene, RN RN iw Davies, Jonathon, RN RN jd3 Acob, Cheryl, RN RN ca1 Gaskin, Ajare [facility]
[2020-04-17 17:53] VITALS: BP 139/64; TEMP 97.4; O2SAT 99
--- NOTE | 2020-04-17 18:33 | EDPHYS ---
Physician Documentation [facility] Name: Che Helton Age: 54 yrs Sex: Female : 1965 Arrival Date: 04/17/2020 Time: 15:14 Bed 18 Private MD: Orlando Burnett ED Physician Giovanni Xiong HPI: 04/17 18:25 This 54 yrs old Black Female presents to ER via Ambulatory with complaints of Back jmm Pain, Leg Pain. 18:25 The patient presents with pain that is acute. Onset: The symptoms/episode jmm began/occurred 1 day(s) ago. The pain radiates to the right leg. Associated signs and symptoms: Pertinent negatives: abdominal pain, chest pain, constipation, dysuria, fever, headache, hematuria, incontinence, nausea, numbness, tingling, urinary retention, vomiting, weakness. Modifying factors: The patient symptoms are alleviated by nothing, the patient symptoms are aggravated by movement. This is a 54 years old female with a history of anxiety, bipolar, depression, DM, that presents to the ED with complaints of right sided back pain which radiates down her right leg. Patient denies injury, bowel or bladder issue. 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 - Social history:: Smoking status: Patient reports the use of cigarette tobacco products, smokes one-half pack cigarettes per day. ROS: 18:25 Constitutional: Negative for fever, chills, and weight loss, Cardiovascular: Negative jmm for chest pain, palpitations, and edema, Respiratory: Negative for shortness of breath, cough, wheezing, and pleuritic chest pain. 18:25 Back: Positive for pain with movement. 18:25 All other systems are negative. Exam: 18:25 Constitutional: This is a well developed, well nourished patient who is awake, alert, jmm and in no acute distress. Head/Face: atraumatic. Eyes: EOMI, no conjunctival erythema appreciated ENT: Moist Mucus Membranes Neck: Trachea midline, Supple Chest/axilla: Normal chest wall appearance and motion. Cardiovascular: Regular rate and rhythm. No edema appreciated Respiratory: Normal respirations, no respiratory distress appreciated Abdomen/GI: Non distended, soft 18:25 Back: right lower lumbar pain on palpation. 18:25 Musculoskeletal/extremity: ROM: intact in all extremities. 18:25 Skin: Appearance: Color: normal in color. 18:25 Neuro: Orientation: is normal, Mentation: is normal, Memory: is normal. 18:25 Psych: Behavior/mood is pleasant, cooperative. Vital Signs: 15:24 BP 139 / 64; Pulse 80; Resp 16 S; Temp 97.4(TE); Pulse Ox 99% on R/A; Weight 105.69 kg ca1 (R); Height 5 ft. 3 in. (160.02 cm) (R); Pain 10/10; 18:56 Pulse 80; Resp 16 S; Pulse Ox 99% on R/A; jd3 15:24 Body Mass Index 41.27 (105.69 kg, 160.02 cm) ca1 MDM: 18:23 Patient medically screened. [facility] 18:31 Data reviewed: vital signs, nurses notes. Counseling: I had a detailed discussion with flako the patient and/or guardian regarding: the historical points, exam findings, and any diagnostic results supporting the discharge/admit diagnosis, the need for outpatient follow up, to return to the emergency department if symptoms worsen or persist or if there are any questions or concerns that arise at home. ED course: I do not suspect cord compression or cauda equina. Patient is advised to follow up with pcp and otherwise given strict return precautions. Patient understood and agrees with the plan of care. . Administered Medications: 18:37 Drug: Dilaudid 1 mg Route: IM; Site: right deltoid; jd3 18:57 Follow up: Response: No adverse reaction; RASS: Alert and Calm (0) jd3 18:37 Drug: Zofran (Ondansetron) 4 mg Route: PO; jd3 18:57 Follow up: Response: No adverse reaction jd3 Disposition: 04/18 08:18 Co-signature as Attending Physician, Giovanni Xiong MD. rn Disposition: 04/17/20 18:32 Discharged to Home. Impression: Sciatica, right side. - Condition is Stable. - Discharge Instructions: Sciatica. - Prescriptions for Zanaflex 4 mg Oral Tablet - take 1 tablet by ORAL route every 8 hours As needed; 20 tablet. - Work release form, Family Work Release, Medication Reconciliation Form, Thank You Letter, Antibiotic Education, Prescription Opioid Use form. - Follow up: Private Physician; When: 2 - 3 days; Reason: Recheck today's complaints, Continuance of care, Re-evaluation by your physician. Signatures: Jam Bates PA PA jmm Williams, Irene, RN RN iw Giovanni Xiong MD MD rn Davies, Jonathon, RN RN jd3 Accleo, Ethel RN RN ca1 Corrections: (The following items were deleted from the chart) 04/17 17:13 17:13 04/17/2020 17:13 Patient left the facility before being seen by provider. Reason iw stated they are leaving due to (see nurse's notes). iw 17:46 17:13 04/17/2020 17:13 Patient left the facility before being seen by provider. Reason iw stated they are leaving due to (see nurse's notes). iw 18:57 18:32 04/17/2020 18:32 Discharged to Home. Impression: Sciatica, right side. Condition jd3 is Stable. Forms are Medication Reconciliation Form, Thank You Letter, Antibiotic Education, Prescription Opioid Use. Follow up: Private Physician; When: 2 - 3 days; Reason: Recheck today's complaints, Continuance of care, Re-evaluation by your physician. flako
[2020-04-17] MEDS ORDERED: HYDROMORPHONE HCL 1 MG/ML INJ ONE (18:50)
[2020-04-17] MEDS ORDERED: ONDANSETRON 4 MG (ODT) TAB ONE (18:50)
== END 2020-04-17 18:57 | disposition home or self-care (01) ==
LOC: ER 15:11
DX: M54.31 Sciatica, right side (principal); I10 Essential (primary) hypertension; F17.210 Nicotine dependence, cigarettes, uncomplicated; Z88.0 Allergy status to penicillin; Z88.2 Allergy status to sulfonamides
CPT/HCPCS: 96372; 99283; J1170

== ENCOUNTER 2020-05-14 05:32 | Emergency (ER) | payer OTHER ==
--- OUTSIDE RECORDS SUMMARY | 2020-05-14 05:35 | XMS REPORT | Continuity of Care Document ---
:1965 Author Organization [facility] t Address [address] [place] [address] Care Team Providers Name Role Phone Lynnette [...] Metabolic Disease Active [facility] syndrome syndrome 08-30kes - 00:00: Medical 00 Center Morbid Morbid Disease Active [facility] obesity obesity 08-30 - 00:00: Medical 00 [place] History of History of Disease Active [facility] gastric gastric 08-30 [facility] - surgery surgery 00:00: Medical [address] [place] [address] History of History of Disease Active [facility] [place] 08-30 [facility] (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 00:00: Me dical l l 00 [place] infarction infarction ) ) H/O H/O Disease Active [facility]30 [facility] - section section 00:00: Medical [address] [place] [address] Smoking Smoking Disease Active [facility] history history 08-30 kes - 00:00: Medical 00 [place] Type 2 Type [address] [facility] diabetes diabetes 08-30 [facility] mellitus mellitus 00:00: Medica l 00 [place] Acute CVA Acute CVA Disease Active [facility] (cerebrova (cerebrova 08-29 [facility] scular scular 00:00: Medical accident) accident) 00 Cent er Allergies, Adverse Reactions, Alerts Allergy Allergy Status Severity Reaction(s) Onset Inactive Treating Comm ents Source Name Type Date Date Clinician Morphine Drug Active Rash [facility] Allergy [facility] Sulfa Drug Active Rash [facility] St (Sulfona Allergy [facility] Antibiot [place] ics) Sulfa Adverse Active Info Not [facility] Reaction Available [facility] Clinics Social History Social Habit Start Date Stop Date Quantity Comments Source Sex Assigned At [facility] Alcohol intake 2015-09-08 2015-09-08 Current [facility] es - 00:00:00 00:00:00 non-drinker of Medical Ce nter alcohol (finding) Smoking Status Start Date Stop Date Source Never smoker [facility] edical [place] Medications Ordered Filled Start Stop Current Ordering [...] [place] [address] [facility] HCl HCl Burntet with a [facility] - meal Memoria l [...] [place] [address] ASA-Caffein ASA-Caffein Bunrett as needed [facility] - e e Memoria [...] [address] [facility] Clinics Dyazide Dyazide Yes [place] [address] Burnett in the [facility]ukes - morning [facility] ent Clinics Amitriptyli Amitriptyli Yes [place] [address] ne HCl ne HCl Burnett at bedtime [place] - [facility] ent Clinics Atorvastati Atorvastati Yes [place] [address] n Calcium n Calcium Burnett Lu s - [facility] l [facility] ent Clinics Linzess Linzess Yes [place] [address] Burnett at least [facility] - 30 minutes Memoria before the l first meal Outpati of the day ent on an Clinics empty stomach Amitiza Amitiza Yes [place] [address] [facility]ett with food [facility] - and water [facility]ics Alprazolam Alprazolam Yes [place] [address] [facility]ett [facility] l [facility] ent Clinics Immunizations Ordered Filled Immunization Date Status Comments [facility] e Immunization Name Name Flucelvax - Flucelvax - 2019-04-[address] [facility] - multidose vial multidose vial 00:00:00 [facility] Outpatient Clinics Procedures This patient has no known procedures. Encounters Start End Encounter Admission Attending Care Care Encounter Source Date/Time Date/Time Type Type Clinicians Facility Department ID 2020-05-11 2020-05-11 Outpatient [facility] [id number] [facility] 2020-05-10 2020-05-10 Outpatient [facility] [id number] [facility] 2020-05-02 2020-05-02 Outpatient [facility] [id number] [facility] 2020-04-26 2020-04-[address] [facility] [id number] 00:00:00 00:00:00 Cristina Guevara [id number] [place] [id number] Professio [phone] nal 059 [facility] 2020-04-26 2020-04-26 [facility] [id number] 00:00:00 00:00:00 Cristina Castilloton [id number] [place] [id number] Proflouiseio [phone] nal 059 [facility] 2020-03-31 2020-03-31 Outpatient [facility] [id number] [facility] 2020-03-21 2020-03-21 Outpatient [facility] [id number] [facility] 2020-03-21 2020-03-21 Outpatient [facility] [id number] [facility] 2020-02-01 2020-02-01 Outpatient [facility] [id number] [facility] 2020-01-29 2020-01-29 Outpatient [facility] [id number] [facility] 2020-01-27 2020-01-27 Outpatient [facility] [id number] [facility] 2020-01-26 2020-01-26 Outpatient [facility] [id number] [facility] 2020-01-07 2020-01-07 Outpatient [facility] [id number] [facility] 2020-01-06 2020-01-06 Outpatient [facility] [id number] [facility] 2019-12-24 2019-12-24 [facility] [id number] 00:00:00 00:00:00 Cristina Guevara [id number] [place] [id number] Professio [phone] [address] 2019-12-22 2019-12-22 Office [facility], [facility] [id number] 16:16:32 16:44:34 Visit Cristina Guevara [id number] [place] [id number] Professio [phone] [address] 2019-12-17 2019-12-17 [facility] [id number] [facility] 00[facility]:[address] [facility] 2019-12-14 2019-12-14 [facility] [id number] [facility] 00:[facility]00 kes - [facility] 2019-07-15 2019-07-15 [facility] [id number] 13:15:00 13:15:00 t [place] [facility] 2019-05-11 2019-05-11 [facility] [id number] 15:30:00 15:30:00 t [facility] 2019-05-04 2019-05-04 [facility] [id number] 09:30:00 09:30:00 t [facility] 2019-04-27 2019-04-27 [facility] [id number] 15:30:00 15:30:00 t [facility] 2019-04-16 2019-04-16 [facility] [id number] 13:00:00 13:00:00 t [employer] [facility] 2019-04-08 2019-04-08 [facility] [id number] 16:19:00 16:19:00 t [facility] 2019-04-07 2019-04-07 [facility] [id number] 08:00:00 08:00:00 t Bone [facility] 2019-04-02 2019-04-02 [facility] [id number] 11:30:00 11:30:00 t [employer] [facility] 2019-03-31 2019-03-31 [facility] [id number] 16:13:00 16:13:00 t [facility] 2019-03-26 2019-03-26 [facility] [id number] 13:16:00 13:16:00 t [employer] [facility] 2019-03-26 2019-03-26 [facility] [id number] 12:59:00 12:59:00 t Bone [facility] 2019-03-05 2019-03-05 [facility] [id number] 08:38:00 08:38:00 t Bone [facility] 2019-03-04 2019-03-04 [facility] [id number] 09:30:00 09:30:00 t Bone [facility] 2019-03-03 2019-03-03 [facility] [id number] 16:25:00 16:25:00 t Bone [facility] 2019-02-26 2019-02-26 [facility] [id number] 09:10:00 09:10:00 t Bone [facility] ent Clinics 2019-02-13 2019-02-13 [facility] [id number] 13:36:00 13:36:00 t [facility] Clinics 2019-02-11 2019-02-11 [facility] [id number] 11:21:00 11:21:00 t Bone [facility] ent Clinics 2019-02-09 2019-02-09 [facility] [id number] 14:30:00 14:30:00 t Bone [facility] Clin[facility] 2019-02-05 2019-02-05 [facility] [id number] 13:45:00 13:45:00 t [facility] ent Clinics 2019-01-28 2019-01-28 [facility] [id number] 07:54:00 07:54:00 t Bone [facility] and [facility] ent Clinics 2019-01-26 2019-01-26 [facility] [id number] 15:10:00 15:10:00 t [facility] ent Clinics 2019-01-21 2019-01-21 [facility] [id number] 13:00:00 13:00:00 t [facility] ent Clinics 2018-02-03 2018-02-03 [facility] [id number] 16:06:00 16:06:00 [facility] Results This patient has no known results.
--- NOTE | 2020-05-14 07:28 | ER ---
Nurse's Notes [facility] Name: Che Helton Age: 54 yrs Sex: Female : 1965 Arrival Date: 05/14/2020 Time: 05:35 Bed 5 Private MD: Orlando Burnett Diagnosis: Fall due to bumping against object;Pain in left knee;Low back pain;Obesity, unspecified Presentation: 05/14 05:48 Chief complaint: Patient states: fell getting out of bed this morning. Pt states left dm5 knee and back hurt. pain rated at 9/10. Pt states that she normally has sciatic pain and it has been doing better until this morning. Coronavirus screen: Client denies travel out of the [place] in the last 14 days. At this time, the client does not indicate any symptoms associated with coronavirus-19. Ebola Screen: Patient negative for fever greater than or equal to 101.5 degrees Fahrenheit, and additional compatible Ebola Virus Disease symptoms Patient denies exposure to infectious person. Patient denies travel to an Ebola-affected area in the 21 days before illness onset. No symptoms or risks identified at this time. Initial Sepsis Screen: Does the patient meet any 2 criteria? No. Patient's initial sepsis screen is negative. Does the patient have a suspected source of infection? No. Patient's initial sepsis screen is negative. Risk Assessment: Do you want to hurt yourself or someone else? Patient reports no desire to harm self or others. Onset of symptoms was May 14, 2020. 05:48 Method Of Arrival: Ambulatory 5 05:48 Acuity: NELY 4 dm5 Triage Assessment: 05:52 General: Appears in no apparent distress. Behavior is calm, cooperative. Pain: dm5 Complains of pain in low back area and left knee Pain currently is 9 out of 10 on a pain scale. Neuro: No deficits noted. Cardiovascular: No deficits noted. Respiratory: Airway is patent Respiratory effort is even, unlabored, Respiratory pattern is regular, symmetrical. Derm: Skin is pink, warm \T\ dry. 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 N/A - Hysterectomy jd3 Historical: - Allergies: 05:52 PENICILLINS; dm5 05:52 Sulfa (Sulfonamide Antibiotics); dm5 05:53 PENICILLINS; ea 05:53 Sulfa (Sulfonamide Antibiotics); ea - Home Meds: 05:52 Cymbalta 30mg in the morning, 60mg at night Oral [Active]; metformin 500 mg Oral tab 1 dm5 tab 2 times per day [Active]; amlodipine 25 mg tab 1 tab once daily [Active]; aspirin 81 mg Oral chew 1 tab once daily [Active]; atorvastatin Oral nightly [Active]; metoprolol tartrate 25 mg Oral tab 1 tab once daily [Active]; multivitamin with minerals Oral daily [Active]; Winfield Oral as needed [Active]; Plavix 75 mg Oral tab 1 tab once daily [Active]; Seroquel 25 mg Oral tab 1 tab nightly [Active]; 05:53 Seroquel 25 mg Oral tab 1 tab nightly [Active]; Plavix 75 mg Oral tab 1 tab once daily ea [Active]; Winfield Oral as needed [Active]; multivitamin with minerals Oral daily [Active]; Nitrostat 0.4 mg SL subl 1 tab every 5 minutes [Active]; metoprolol tartrate 25 mg Oral tab 1 tab once daily [Active]; metformin 500 mg Oral tab 1 tab 2 times per day [Active]; Cymbalta 30mg in the morning, 60mg at night Oral [Active]; atorvastatin Oral nightly [Active]; aspirin 81 mg Oral chew 1 tab once daily [Active]; amlodipine 25 mg tab 1 tab once daily [Active]; - PMHx: 05:52 ADD/ADHD; Anxiety; Bipolar disorder; Depression; Diabetes - NIDDM; Hyperlipidemia; dm5 Hypertension; Myocardial infarction; stroke; 05:53 stroke; Myocardial infarction; Hypertension; Hyperlipidemia; Diabetes - NIDDM; ea Depression; Bipolar disorder; Anxiety; ADD/ADHD; - PSHx: 05:52 Gastric Sleeve; Left greater toe amputation; ; Hysterectomy; dm5 - Immunization history:: Adult Immunizations unknown, Pneumococcal vaccine is up to date, Flu vaccine is not up to date. It has been more than one year since last vaccine. - Social history:: Smoking status: Patient denies any tobacco usage or history of. Screenin:50 Abuse screen: Denies threats or abuse. Nutritional screening: No deficits noted. ea Tuberculosis screening: No symptoms or risk factors identified. Fall Risk Fall in past 12 months (25 points). Assessment: 05:54 General: Appears in no apparent distress. Behavior is calm, cooperative, appropriate ea for age. Neuro: Level of Consciousness is awake, alert, obeys commands, Oriented to person, place, time. Cardiovascular: Patient's skin is warm and dry. Respiratory: Airway is patent Respiratory effort is even, unlabored, Respiratory pattern is regular, symmetrical. Derm: Skin is pink, warm \T\ dry. 07:27 General: Appears in no apparent distress. Behavior is calm, cooperative, appropriate jd3 for age. Pain: Complains of pain in back and left knee Quality of pain is described as aching, tender. Neuro: Level of Consciousness is awake, alert, obeys commands, Oriented to person, place, time, situation. Cardiovascular: Denies chest pain, Capillary refill < 3 seconds Patient's skin is warm and dry. Respiratory: Airway is patent Respiratory effort is even, unlabored, Respiratory pattern is regular, symmetrical. GI: No signs and/or symptoms were reported involving the gastrointestinal system. : No signs and/or symptoms were reported regarding the genitourinary system. EENT: No signs and/or symptoms were reported regarding the EENT system. Derm: Skin is intact, Skin is dry, Skin is normal, Skin temperature is warm. Musculoskeletal: Circulation, motion, and sensation intact. Range of motion: intact in all extremities. 09:06 Reassessment: Patient appears in no apparent distress at this time. Patient and/or jd3 family updated on plan of care and expected duration. Pain level reassessed. Patient is alert, oriented x 3, equal unlabored respirations, skin warm/dry/pink. Vital Signs: 05:54 BP 140 / 92; Pulse 80; Resp 18; Temp 97.8; Pulse Ox 98% ; ea 07:28 BP 142 / 89; Pulse 92; Resp 17 S; Pulse Ox 97% on R/A; jd3 09:10 BP 139 / 90; Pulse 88; Resp 16 S; Pulse Ox 97% on R/A; jd3 ED Course: 05:35 Patient arrived in ED. am4 05:35 Orlando Burnett DO is Private Physician. am4 05:50 Triage completed. dm5 05:51 Arm band placed on right wrist. Patient placed in an exam room, on a stretcher, on ea pulse oximetry. 05:51 Patient has correct armband on for positive identification. Bed in low position. Call ea light in reach. Side rails up X2. 06:21 Tonny Ronquillo MD is Attending Physician. [facility] 07:11 Attending Physician role handed off by Tonny Ronquillo MD [facility] 07:11 Wang Olivas MD is Attending Physician. ernie 07:22 Paul Willoughby, RN is Primary Nurse. jd3 07:26 Orlando Burnett DO is Referral Physician. ernie 07:35 CT Lumbar Spine Wo Con In Process Unspecified. EDMS 07:37 Knee Left 3 View XRAY In Process Unspecified. EDMS 09:10 No provider procedures requiring assistance completed. Patient did not have IV access jd3 during this emergency room visit. Administered Medications: 07:27 Drug: Winfield 5 mg-325 mg 1 tabs Route: PO; jd3 09:11 Follow up: Response: No adverse reaction; RASS: Alert and Calm (0) jd3 Outcome: 07:27 Discharge ordered by MD. ernie 09:10 Discharged to home via wheelchair, with friend. jd3 09:10 Condition: stable 09:10 Discharge instructions given to patient, Instructed on discharge instructions, follow up and referral plans. Demonstrated understanding of instructions, follow-up care. 09:11 Patient left the ED. jd3 Signatures: Dispatcher [employer] Cyndy Stringer, RN RN dm5 Wang Olivas MD MD cha Antunez, Elena, RN RN ea Davies, Jonathon, Tonny Arvizu RN, MD MD Milly Evans [facility]
--- NOTE | 2020-05-14 07:29 | EDPHYS ---
Physician Documentation [facility] Name: Che Helton Age: 54 yrs Sex: Female : 1965 Arrival Date: 05/14/2020 Time: 05:35 Bed 5 Private MD: Orlando Burnett ED Physician Wang Olivas HPI: 05/14 07:02 This 54 yrs old Black Female presents to ER via Ambulatory with complaints of Fall mh7 Injury. 07:02 Details of fall: The patient fell from an upright position, while walking. Onset: The mh7 symptoms/episode began/occurred this morning, today. Associated injuries: The patient sustained injury to the low back, pain, pain with movement, tenderness, left knee, painful injury. Severity of symptoms: At their worst the symptoms were moderate, earlier today, in the emergency department the symptoms are unchanged. 07:03 States that she fell after getting out of bed this morning. She states that she was mh7 walking and her left knee gave out causing her to fall to the floor. She has had similar problems with the knee in the past.. 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 LMP N/A - Hysterectomy jd3 Historical: - Allergies: 05:52 PENICILLINS; dm5 05:52 Sulfa (Sulfonamide Antibiotics); dm5 05:53 PENICILLINS; ea 05:53 Sulfa (Sulfonamide Antibiotics); ea - Home Meds: 05:52 Cymbalta 30mg in the morning, 60mg at night Oral [Active]; metformin 500 mg Oral tab 1 dm5 tab 2 times per day [Active]; amlodipine 25 mg tab 1 tab once daily [Active]; aspirin 81 mg Oral chew 1 tab once daily [Active]; atorvastatin Oral nightly [Active]; metoprolol tartrate 25 mg Oral tab 1 tab once daily [Active]; multivitamin with minerals Oral daily [Active]; Brentford Oral as needed [Active]; Plavix 75 mg Oral tab 1 tab once daily [Active]; Seroquel 25 mg Oral tab 1 tab nightly [Active]; 05:53 Seroquel 25 mg Oral tab 1 tab nightly [Active]; Plavix 75 mg Oral tab 1 tab once daily ea [Active]; Brentford Oral as needed [Active]; multivitamin with minerals Oral daily [Active]; Nitrostat 0.4 mg SL subl 1 tab every 5 minutes [Active]; metoprolol tartrate 25 mg Oral tab 1 tab once daily [Active]; metformin 500 mg Oral tab 1 tab 2 times per day [Active]; Cymbalta 30mg in the morning, 60mg at night Oral [Active]; atorvastatin Oral nightly [Active]; aspirin 81 mg Oral chew 1 tab once daily [Active]; amlodipine 25 mg tab 1 tab once daily [Active]; - PMHx: 05:52 ADD/ADHD; Anxiety; Bipolar disorder; Depression; Diabetes - NIDDM; Hyperlipidemia; dm5 Hypertension; Myocardial infarction; stroke; 05:53 stroke; Myocardial infarction; Hypertension; Hyperlipidemia; Diabetes - NIDDM; ea Depression; Bipolar disorder; Anxiety; ADD/ADHD; - PSHx: 05:52 Gastric Sleeve; Left greater toe amputation; ; Hysterectomy; dm5 - Immunization history:: Adult Immunizations unknown, Pneumococcal vaccine is up to date, Flu vaccine is not up to date. It has been more than one year since last vaccine. - Social history:: Smoking status: Patient denies any tobacco usage or history of. ROS: 07:03 Constitutional: Negative for fever, chills, and weight loss, Eyes: Negative for injury, mh7 pain, redness, and discharge, ENT: Negative for injury, pain, and discharge, Neck: Negative for injury, pain, and swelling, Cardiovascular: Negative for chest pain, palpitations, and edema, Respiratory: Negative for shortness of breath, cough, wheezing, and pleuritic chest pain, Abdomen/GI: Negative for abdominal pain, nausea, vomiting, diarrhea, and constipation, : Negative for injury, bleeding, discharge, and swelling, Skin: Negative for injury, rash, and discoloration, Neuro: Negative for headache, weakness, numbness, tingling, and seizure, Psych: Negative for depression, anxiety, suicide ideation, homicidal ideation, and hallucinations, Allergy/Immunology: Negative for hives, rash, and allergies, Endocrine: Negative for neck swelling, polydipsia, polyuria, polyphagia, and marked weight changes, Hematologic/Lymphatic: Negative for swollen nodes, abnormal bleeding, and unusual bruising. Exam: 07:03 Constitutional: This is a well developed, well nourished patient who is awake, alert, mh7 and in no acute distress. Head/Face: Normocephalic, atraumatic. Eyes: Pupils equal round and reactive to light, extra-ocular motions intact. Lids and lashes normal. Conjunctiva and sclera are non-icteric and not injected. Cornea within normal limits. Periorbital areas with no swelling, redness, or edema. Neck: Trachea midline, no thyromegaly or masses palpated, and no cervical lymphadenopathy. Supple, full range of motion without nuchal rigidity, or vertebral point tenderness. No Meningismus. Chest/axilla: Normal chest wall appearance and motion. Nontender with no deformity. No lesions are appreciated. Cardiovascular: Regular rate and rhythm with a normal S1 and S2. No gallops, murmurs, or rubs. Normal PMI, no JVD. No pulse deficits. Respiratory: Lungs have equal breath sounds bilaterally, clear to auscultation and percussion. No rales, rhonchi or wheezes noted. No increased work of breathing, no retractions or nasal flaring. Abdomen/GI: Soft, non-tender, with normal bowel sounds. No distension or tympany. No guarding or rebound. No evidence of tenderness throughout. 07:03 Neuro: Awake and alert, GCS 15, oriented to person, place, time, and situation. Cranial nerves II-XII grossly intact. Motor strength 5/5 in all extremities. Sensory grossly intact. Cerebellar exam normal. Normal gait. Psych: Awake, alert, with orientation to person, place and time. Behavior, mood, and affect are within normal limits. 07:03 Back: pain, that is moderate, ROM is painful, with all movement, normal spinal alignment noted, CVA tenderness, is absent, vertebral tenderness, is appreciated at lumbar, muscle spasm, is not present, Straight leg raises: of both lower extremities does not illicit pain. 07:03 Musculoskeletal/extremity: Extremities: noted in the left knee: pain, tenderness, ROM: intact in all extremities, Circulation is intact in all extremities. Pulses: are normal with no appreciated deficits, Sensation intact. Compartment Syndrome exam of affected extremity: is normal. no numbness, no tingling, no sensation deficit, no palor, no weak pulses, Joints: the left knee displays painful range of motion, tenderness, Weight bearing: able to fully bear weight, Tendon exam: specific tendon testing normal through active and passive range of motion Vital Signs: 05:54 BP 140 / 92; Pulse 80; Resp 18; Temp 97.8; Pulse Ox 98% ; ea 07:28 BP 142 / 89; Pulse 92; Resp 17 S; Pulse Ox 97% on R/A; jd3 09:10 BP 139 / 90; Pulse 88; Resp 16 S; Pulse Ox 97% on R/A; jd3 MDM: 07:11 Patient medically screened. [facility] 07:28 Differential diagnosis: contusion, fracture, sprain, strain. Data reviewed: vital ernie signs, nurses notes, radiologic studies, CT scan, plain films. Data interpreted: tanner rotary drum continuous process: rate is 80 beats/min, rhythm is regular, Pulse oximetry: on room air is 98 %. Test interpretation: by ED physician or midlevel provider: plain radiologic studies. Counseling: I had a detailed discussion with the patient and/or guardian regarding: the historical points, exam findings, and any diagnostic results supporting the discharge/admit diagnosis, radiology results, the need for outpatient follow up, for definitive care, a family practitioner, a orthopedic surgeon. 05/14 07:01 Order name: Knee Left 3 View XRAY 7 05/14 07:02 Order name: CT Lumbar Spine Wo Con 7 Administered Medications: 07:27 Drug: Brentford 5 mg-325 mg 1 tabs Route: PO; jd3 09:11 Follow up: Response: No adverse reaction; RASS: Alert and Calm (0) jd3 Disposition: 05/14/20 07:27 Discharged to Home. Impression: Fall due to bumping against object, Pain in left knee, Low back pain, Obesity, unspecified. - Condition is Stable. - Discharge Instructions: Joint Pain, Arthritis, Obesity, Adult, Knee Pain, Back Injury Prevention, [id number], Cryotherapy, Obesity, Adult, [id number]. - Medication Reconciliation Form, Thank You Letter, Antibiotic Education, Prescription Opioid Use, Family Work Release form. - Follow up: Orlando Burnett, ; When: 2 - 3 days; Reason: Recheck today's complaints, Continuance of care, Re-evaluation by your physician. - Problem is new. - Symptoms have improved. Signatures: Dispatcher [employer] EDMS Cyndy Zurita, JULIEN RN dm5 Wang Olivas MD MD cha Antunez, Elena, RN RN ea Davies, Jonathon, RN RN jd3 Tonny Ronquillo MD MD mh7 Corrections: (The following items were deleted from the chart) 09:11 07:27 05/14/2020 07:27 Discharged to Home. Impression: Fall due to bumping against jd3 object; Pain in left knee; Low back pain; Obesity, unspecified. Condition is Stable. Forms are Medication Reconciliation Form, Thank You Letter, Antibiotic Education, Prescription Opioid Use. Follow up: Orlando Burnett; When: 2 - 3 days; Reason: Recheck today's complaints, Continuance of care, Re-evaluation by your physician. Problem is new. Symptoms have improved. ernie
[2020-05-14] MEDS ORDERED: HYDROCODONE/APAP 5/325 MG TAB ONE (07:40)
--- NOTE | 2020-05-14 07:49 | RAD REPORT ---
EXAM DESCRIPTION: CT - Spine Lumbar Wo Con - 05/14/2020 7:36 am CLINICAL HISTORY: Radiculopathy. trauma COMPARISON: Spine Lumbar Wo Con dated 03/04/2018; Spine Lumbar Wo Con dated 07/12/2016 TECHNIQUE: Axial noncontrast CT imaging of the lumbar spine was performed with coronal and sagittal re-formatted images. All CT scans are performed using dose optimization technique as appropriate and may include automated exposure control or mA/KV adjustment according to patient size. FINDINGS: No acute lumbar spine fracture seen. No aggressive marrow pattern or malalignment. Paraspinal tissues are normal in thickness. No paraspinal abscess or hematoma seen. Moderate lower lumbar spondylosis with facet hypertrophy seen. No severe canal stenosis identified. IMPRESSION: No acute lumbar spine abnormality is detected. Consider MRI follow-up for assessment of disc disease if clinically desired.
[2020-05-14 09:35] VITALS: BP 139/90; O2SAT 97
--- NOTE | 2020-05-14 11:31 | RAD REPORT ---
EXAM DESCRIPTION: RAD - Knee Left 3 View - 05/14/2020 7:37 am CLINICAL HISTORY: trauma Pain and swelling COMPARISON: Knee Left 3 View dated 05/02/2018; Knee Left 3 View dated 07/12/2016; Shoulder Right 2 Vie w dated 02/23/2020 FINDINGS: No acute fracture or dislocation seen. No significant joint effusion.
== END 2020-05-14 09:11 | disposition home or self-care (01) ==
LOC: ER 05:32
DX: M25.562 Pain in left knee (principal); E66.9 Obesity, unspecified; W18.30XA Fall on same level, unspecified, initial encounter; Y93.01 Activity, walking, marching and hiking; Y92.003 Bedroom of unspecified non-institutional (private) residence as the place of occurrence of the external cause; Z88.0 Allergy status to penicillin; Z88.2 Allergy status to sulfonamides; Z79.01 Long term (current) use of anticoagulants; Z79.82 Long term (current) use of aspirin; I10 Essential (primary) hypertension; F31.9 Bipolar disorder, unspecified; E11.9 Type 2 diabetes mellitus without complications; I25.2 Old myocardial infarction; E78.5 Hyperlipidemia, unspecified
CPT/HCPCS: 72131; 99283

== ENCOUNTER 2020-06-13 17:33 | Emergency (ER) | payer OTHER ==
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
[2020-06-13 20:59] LABS: Urine Blood Negative (Negative); Urine Glucose Negative (Negative); Urine Protein 1+ (Negative); Urine Specific Gravity >=1.030 (1.005-1.030)
[2020-06-13] MEDS ORDERED: HYDROCODONE/APAP 10/325 TAB ONE (21:00)
[2020-06-13] MEDS ORDERED: IBUPROFEN 200 MG TAB PO ONE (21:22)
[2020-06-13] MEDS ORDERED: DIAZEPAM 5 MG TABLET ONE (21:22)
[2020-06-13] MEDS ORDERED: IBUPROFEN 400 MG TAB ONE (21:22)
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
[2020-06-13 22:41] VITALS: TEMP 98.5; O2SAT 99
[2020-06-13 22:46] VITALS: BP 151/79
== END 2020-06-13 21:42 | disposition home or self-care (01) ==
LOC: ER 17:33
DX: S16.1XXA Strain of muscle, fascia and tendon at neck level, initial encounter (principal); S29.012A Strain of muscle and tendon of back wall of thorax, initial encounter; V49.49XA Driver injured in collision with other motor vehicles in traffic accident, initial encounter; Z88.0 Allergy status to penicillin; Z88.2 Allergy status to sulfonamides; I10 Essential (primary) hypertension; F17.210 Nicotine dependence, cigarettes, uncomplicated
CPT/HCPCS: 70450; 71250; 72125; 81003; 99284

== ENCOUNTER 2020-08-18 16:24 | Emergency (ER) | payer OTHER ==
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
--- NOTE | 2020-08-18 19:07 | EDPHYS ---
Physician Documentation [facility] Name: Che Helton Age: 54 yrs Sex: Female : 1965 Arrival Date: 08/18/2020 Time: 16:28 Bed 13 Private MD: ED Physician True Gutierrez HPI: 08/18 18:50 This 54 yrs old Black Female presents to ER via Ambulatory with complaints of Suture jmm Recheck - PAIN. 18:50 The patient presents with pain. Onset: The symptoms/episode began/occurred gradually. jmm Patient is s/p bakers cyst removal. Believes she has 3 sutures retained causing her pain. Denies fever, redness, swelling. . 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 - Social history:: Smoking status: Patient reports the use of cigarette tobacco products, smokes one-half pack cigarettes per day. ROS: 18:50 Constitutional: Negative for fever, chills, and weight loss, Cardiovascular: Negative jmm for chest pain, palpitations, and edema, Respiratory: Negative for shortness of breath, cough, wheezing, and pleuritic chest pain. 18:50 MS/extremity: Positive for pain. 18:50 All other systems are negative. Exam: 18:50 Constitutional: This is a well developed, well nourished patient who is awake, alert, jmm and in no acute distress. Head/Face: atraumatic. Eyes: EOMI, no conjunctival erythema appreciated ENT: Moist Mucus Membranes Neck: Trachea midline, Supple Chest/axilla: Normal chest wall appearance and motion. Cardiovascular: Regular rate and rhythm. No edema appreciated Respiratory: Normal respirations, no respiratory distress appreciated Abdomen/GI: Non distended, soft Back: Normal ROM Skin: General appearance color normal 18:50 Neuro: Awake and alert, normal gait Psych: Behavior is normal, Mood is normal, Patient is cooperative and pleasant 18:50 Musculoskeletal/extremity: healing surgical incision noted to the left popliteal region, retained sutures palpated. Vital Signs: 16:34 BP 163 / 97; Pulse 100; Resp 18 S; Temp 98.5(TE); Pulse Ox 98% on R/A; Weight 107.95 kg jd3 (R); Height 5 ft. 3 in. (160.02 cm) (R); Pain 10/10; 16:34 Body Mass Index 42.16 (107.95 kg, 160.02 cm) jd3 Procedures: 19:04 Foreign Body Removal: suture, from the left leg, by tweezers, The patient tolerated the jmm removal well. MDM: 18:50 Patient medically screened. jmm 19:04 Data reviewed: vital signs, nurses notes. Counseling: I had a detailed discussion with jmm the patient and/or guardian regarding: the historical points, exam findings, and any diagnostic results supporting the discharge/admit diagnosis. 19:04 Counseling: I had a detailed discussion with the patient and/or guardian regarding: the jmm need for outpatient follow up, to return to the emergency department if symptoms worsen or persist or if there are any questions or concerns that arise at home. ED course: A small amout of purulent drainage expressed upon removal of sutures. 08/18 18:51 Order name: Wound Care; Complete Time: 18:56 [facility] Administered Medications: No medications were administered Disposition: 08/18/20 19:07 Discharged to Home. Impression: Encounter for removal of sutures. - Condition is Stable. - Discharge Instructions: Suture Removal, Care After. - Prescriptions for Clindamycin HCl 300 mg Oral Capsule - take 1 capsule by ORAL route every 6 hours for 10 days; 40 capsule. - Medication Reconciliation Form, Thank You Letter, Antibiotic Education, Prescription Opioid Use form. - Follow up: Private Physician; When: 2 - 3 days; Reason: Recheck today's complaints, Continuance of care, Re-evaluation by your physician. Signatures: Jam Bates PA PA jmm Davies, Jonathon, RN RN jd3 Alexia Vaughn RN RN tr6 Corrections: (The following items were deleted from the chart) 19:18 19:07 08/18/2020 19:07 Discharged to Home. Impression: Encounter for removal of tr6 sutures. Condition is Stable. Forms are Medication Reconciliation Form, Thank You Letter, Antibiotic Education, Prescription Opioid Use. Follow up: Private Physician; When: 2 - 3 days; Reason: Recheck today's complaints, Continuance of care, Re-evaluation by your physician. flako
--- NOTE | 2020-08-18 19:07 | ER ---
Nurse's Notes [facility] Name: Che Helton Age: 54 yrs Sex: Female : 1965 Arrival Date: 08/18/2020 Time: 16:28 Bed 13 Private MD: Diagnosis: Encounter for removal of sutures Presentation: 08/18 16:31 Chief complaint: Patient states: "I had surgery on the back of my left knee and they jd3 took out sutures and left some in and now they have grown over and are causing some pain.". Coronavirus screen: At this time, the client does not indicate any symptoms associated with coronavirus-19. Ebola Screen: Patient negative for fever greater than or equal to 101.5 degrees Fahrenheit, and additional compatible Ebola Virus Disease symptoms. Initial Sepsis Screen: Does the patient meet any 2 criteria? No. Patient's initial sepsis screen is negative. Does the patient have a suspected source of infection? No. Patient's initial sepsis screen is negative. Risk Assessment: Do you want to hurt yourself or someone else? Patient reports no desire to harm self or others. Onset of symptoms was August 16, 2020. 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 - Social history:: Smoking status: Patient reports the use of cigarette tobacco products, smokes one-half pack cigarettes per day. Screenin:55 Abuse screen: Denies threats or abuse. Denies injuries from another. Nutritional tr6 screening: No deficits noted. Tuberculosis screening: No symptoms or risk factors identified. Fall Risk None identified. Assessment: 18:53 General: Appears in no apparent distress. Behavior is calm, cooperative, appropriate tr6 for age. Pain: Complains of pain in behind left knee. Neuro: No deficits noted. Cardiovascular: No deficits noted. Respiratory: No deficits noted. GI: No deficits noted. : No deficits noted. EENT: No deficits noted. Derm: Skin is intact, Wound noted behind left knee, surgical incision. Musculoskeletal: No deficits noted. Vital Signs: 16:34 BP 163 / 97; Pulse 100; Resp 18 S; Temp 98.5(TE); Pulse Ox 98% on R/A; Weight 107.95 kg jd3 (R); Height 5 ft. 3 in. (160.02 cm) (R); Pain 10/10; 16:34 Body Mass Index 42.16 (107.95 kg, 160.02 cm) [facility] ED Course: 16:28 Patient arrived in ED. 16:32 Triage completed. jd3 16:35 Arm band placed on. j 18:38 Jam Bates PA is PHCP. [facility] 18:38 True Gutierrez MD is Attending Physician. hernán 18:50 Alexia Vaughn, JULIEN is Primary Nurse. tr6 18:55 Patient has correct armband on for positive identification. Bed in low position. Side tr6 rails up X 1. Door closed. Noise minimized. Visitors limited. Lights dimmed. Moved to private room. Diet: Patient is NPO. 18:55 No provider procedures requiring assistance completed. Patient did not have IV access tr6 during this emergency room visit. Dressings: 4X4s X 1; behind left knee. Administered Medications: No medications were administered Outcome: 19:07 Discharge ordered by . flako 19:17 Discharged to home ambulatory. tr6 19:17 Condition: good 19:17 Discharge instructions given to patient, Instructed on discharge instructions, follow up and referral plans. medication usage, safety practices, Demonstrated understanding of instructions, follow-up care, medications, Prescriptions given X 1. 19:18 Patient left the ED. tr6 Signatures: Jam Bates PA PA jmm Davies, Jonathon, RN RN Alexia Croft RN RN trRaquel Cherry Corrections: (The following items were deleted from the chart) 16:33 16:31 Onset of symptoms was August 18, 2020 [place] [id number]
[2020-08-18 19:28] VITALS: BP 163/97; TEMP 98.5; O2SAT 98
== END 2020-08-18 19:18 | disposition home or self-care (01) ==
LOC: ER 16:24
DX: Z48.02 Encounter for removal of sutures (principal)

== ENCOUNTER 2020-09-19 14:54 | Emergency (ER) | payer OTHER ==
[2011-11-07 15:55] VITALS: BP 150/80
--- OUTSIDE RECORDS SUMMARY | 2020-09-19 15:01 | XMS REPORT | Continuity of Care Document ---
:1965 Author Organization [facility] t Address [address] [place] [address] Care Team Providers Name Role Phone Lynnette Lozano MD Primary Care Physician Han DOTY Attending Clinician Yvonne SMYTH R Attending Clinician Jazz DOTY, K Attending Clinician Problems Condition [...] syndrome 08-30 [facility] 00 [place] Morbid Morbid Disease Active [facility] obesity obesity 08-30 [facility] - 00:00: Medical 00 [place] History of History of Disease Active [facility] gastric gastric 08-30 [facility] - surgery surgery 00:00: Medical 00 [place] History of History of Disease Active [facility] ND ND 08-30 [facility] (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 00:00: Nh dical l l 00 [place] infarction infarction ) ) H/O H/O Disease Active [facility] 08-30 [facility] - section section 00:00: Medical [address] [place] [address] Smoking Smoking Disease Active [facility] history history 08-30 [facility] - 00:00: Medical 00 [place] Type 2 Type [address] [facility] diabetes diabetes 08-30 [facility] mellitus mellitus 00:00: Medica [address] Acute CVA Acute CVA Disease Active [facility] (cerebrova (cerebrova 08-29 [facility] scular scular 00:00: Medical accident) accident) 00 [facility] Allergies, Adverse Reactions, Alerts Allergy Allergy Status Severity Reaction(s) Onset Inactive Treating Comm ents Source Name Type Date Date Clinician Morphine Drug Active Rash [facility] Allergy [facility] Sulfa Drug Active Rash [facility] (Sulfona Allergy [facility] Antibiot [place] ics) Sulfa Adverse Active Info Not [facility] Reaction Available [facility] Social History Social Habit Start Date Stop Date Quantity Comments Source Sex Assigned At [facility] Alcohol intake 2015-09-08 2015-09-08 Current [facility] es - 00:00:00 00:00:00 non-drinker of Medical Ce nter alcohol (finding) Smoking Status Start Date Stop Date Source Never smoker [facility] edical [place] Medications Ordered Filled Start Stop Current Ordering Indication Dosage Frequency Signature Comments Components Source Medication Medication Date Date Medication? Clinician (SIG) Name Name amLODIPine Yes 10mg QD Take [address] (NORVASC) 7-14 by mouth [facility] - 10 MG 13:23: daily. Medical tablet [address] [place] [address] metFORMIN Yes 500mg Take [address] [...] nightly. Medical capsule 19 Center aspirin 81 2015-0 Yes 81mg QD Take [address] MG EC 7-14 by mouth [facility] - tablet 13:23: daily. [address] Alprazolam Alprazolam Yes [place] 1 tablet [facility] [...] tongue and Memoria allow to l dissolve [facility] Cyclobenzap Cyclobenzap Yes [place] [address] rine HCl rine HCl [place] as needed [facility] Gabapentin Gabapentin Yes [place] [address] [facility] [place] [facility] Dyazide Dyazide Yes [place] [address] [place] in the [facility] - morning [facility] Amitriptyli Amitriptyli Yes [place] [address] ne HCl ne HCl [place] at bedtime [place] [facility] Atorvastati Atorvastati Yes [place] [address] [facility] [facility] n Calcium n Calcium [place] Lu s - [facility] Linzess Linzess Yes [place] [address] [place] at least [facility] - 30 minutes Memoria before the l first meal Outpati of the day ent on an Clinics empty stomach Amitiza Amitiza Yes [place] [address] [place] with food [facility] - and water [facility] l [facility] Immunizations Ordered Filled Immunization Date Status Comments [facility] e Immunization Name Name Flucelvax - Flucelvax - 2019-04-[address] [facility] - multidose vial multidose vial 00:00:00 [facility] Procedures This patient has no known procedures. Encounters Start End Encounter Admission Attending Care Care Encounter Source Date/Time Date/Time Type Type Clinicians Facility Department ID 2020-09-12 2020-09-12 Telephone [facility] [id number] 00:00:00 00:00:00 Cristina Guevara [id number] [place] [id number] Professio [id number] [facility] 059 [facility] 2020-08-01 2020-08-01 [facility] [id number] 16:53:00 20:11:00 Cassandra Guevara [id number] [place] [id number] [place] [id number] 2020-08-01 2020-08-01 Telephone GAGAN Schulz [id number] 00:00:00 00:00:00 [facility] [id number] [facility] [id number] 2020-07-20 2020-07-20 [address]med[id number] 12:21:31 12:36:31 ne Visit [facility] [id number] [facility] [id number] 2020-05-19 2020-05-19 Outpatient [facility] [id number] [facility] 2020-05-11 2020-05-11 Outpatient [facility] [id number] [facility] 2020-05-10 2020-05-10 Out[facility] [id number] [facility] 2020-05-09 2020-05-09 Out[facility] [id number] [facility] 2020-05-02 2020-05-02 Out[facility] [id number] [facility] 2020-03-31 2020-03-31 Outpatient [facility] [id number] [facility] 2020-03-21 2020-03-21 Outpatient [facility] [id number] [facility] 2020-03-21 2020-03-21 Outpatient [facility] [id number] [facility] 2020-02-01 2020-02-01 [id number] 2020-01-29 2020-01-29 Outpatient [facility] [id number] [facility] 2020-01-27 2020-01-27 Outpatient [facility] [id number] [facility] 2020-01-26 2020-01-26 Outpatient [facility] [id number] [facility] 2020-01-07 2020-01-07 Outpatient [facility] [id number] [facility] 2020-01-06 2020-01-06 Outpatient [facility] [id number] [facility] 2019-12-17 2019-12-17 Outpatient [facility] [id number] [facility] 2019-12-14 2019-12-14 Outpatient [facility] [id number] [facility] 2019-07-15 2019-07-15 [facility] [id number] 13:15:00 13:15:00 t Manifact [facility] Clinics 2019-05-11 2019-05-11 [facility] [id number] 15:30:00 15:30:00 t [facility] 2019-05-04 2019-05-04 [facility] [id number] 09:30:00 09:30:00 t [facility] 2019-04-27 2019-04-27 [facility] [id number] 15:30:00 15:30:00 t [facility] 2019-04-16 2019-04-16 [facility] [id number] 13:00:00 13:00:00 [place] [facility] 2019-04-08 2019-04-08 [facility] [id number] 16:19:00 16:19:00 t [facility] 2019-04-07 2019-04-07 [facility] [id number] 08:00:00 08:00:00 t [facility] 2019-04-02 2019-04-02 [facility] [id number] 11:30:00 11:30:00 t [place] [facility] 2019-03-31 2019-03-31 [facility] [id number] 16:13:00 16:13:00 t [facility] 2019-03-26 2019-03-26 [facility] [id number] 13:16:00 13:16:00 [facility] 2019-03-26 2019-03-26 [facility] [id number] 12:59:00 12:59:00 t [facility] 2019-03-05 2019-03-05 [facility] [id number] 08:38:00 08:38:00 t [facility] 2019-03-04 2019-03-04 [facility] [id number] 09:30:00 09:30:00 t [facility] ent [facility] 2019-03-03 2019-03-03 [facility] [id number] 16:25:00 16:25:00 t [facility] 2019-02-26 2019-02-26 [facility] [id number] 09:10:00 09:10:00 t [facility] ent Clinics 2019-02-13 2019-02-13 [facility] [id number] 13:36:00 13:36:00 t [place] [facility] 2019-02-11 2019-02-11 [facility] [id number] 11:21:00 11:21:00 t [facility] ent Clinics 2019-02-09 2019-02-09 [facility] [id number] 14:30:00 14:30:00 t [facility] ent Clinics 2019-02-05 2019-02-05 [facility] [id number] 13:45:00 13:45:00 [facility] 2019-01-28 2019-01-28 [facility] [id number] 07:54:00 07:54:00 t [facility] ent Clinics 2019-01-26 2019-01-26 [facility] [id number] 15:10:00 15:10:00 [facility] 2019-01-21 2019-01-21 [facility] [id number] 13:00:00 13:00:00 t [facility] 2018-02-03 2018-02-03 Outpatient [facility] Corm[facility] [id number] [facility] 16:06:00 16:06:00 t Convert[facility] ent Clinics Results This patient has no known results.
[2020-09-19 15:47] LABS: Protime INR 1.08
[2020-09-19 15:48] LABS: Absolute Lymphocytes (CBC) 1.9 K/uL (0.7-4.9); Hematocrit 37.9 % (36.0-45.0); Lymphocytes % 35.6 % (15.3-44.8); MPV 8.3 fL (7.6-11.3); RBC Red Blood Cell Count 4.53 M/uL (3.86-4.86)
[2020-09-19 15:56] LABS: BUN Blood Urea Nitrogen 8 mg/dL (7-18); Bicarbonate 25 mmol/L (21-32); Glucose Level 151 mg/dL (74-106); NT PRO-BNP 85 pg/mL (<125); Potassium 3.6 mmol/L (3.5-5.1); Sodium Level 142 mmol/L (136-145); Troponin (Emerg Dept Use Only) 0.03 ng/mL (0.0-0.045)
--- NOTE | 2020-09-19 16:08 | RAD REPORT ---
EXAM DESCRIPTION: RAD - Chest Single View - 09/19/2020 3:56 pm CLINICAL HISTORY: CHEST PAIN COMPARISON: February 2019 TECHNIQUE: AP portable chest image was obtained 09/19/2020 3:56 pm . FINDINGS: Lungs are clear. Heart and vasculature are normal. No measurable pleural effusion and no p neumothorax. No acute bony abnormality seen. No acute aortic findings suspected. IMPRESSION: No acute cardiopulmonary process. No significant change from comparison study.
[2020-09-19] MEDS ORDERED: HYDROCODONE/APAP 10/325 TAB ONE (17:34)
--- NOTE | 2020-09-20 12:39 | EKG ---
Test Date: 2020-09-19 Test Time: 15:02:00 Confectionery Cooker: KYLER MEASUREMENT RESULTS: Intervals: Rate: 102 ID: [id number] QRSD: 86 QT: 402 QTc: 523 [place]: P: 74 ID: [id number] QRS: -6 T: 79 INTERPRETIVE STATEMENTS: Sinus tachycardia with premature supraventricular complexes and fusion complexes Right atrial enlargement Voltage criteria for left ventricular hypertrophy Cannot rule out Septal infarct, age undetermined Prolonged QT Abnormal ECG Compared to ECG 02/23/2020 16:55:27 Atrial premature complex(es) now present Fusion complex(es) now present Atrial abnormality now present Myocardial infarct finding now present Prolonged QT interval now present Sinus rhythm no longer present Sinus arrhythmia no longer present Ventricular premature complex(es) no longer present Electronically Signed On 09-20-20 12:37:39 CDT by Giovanni Brewster
--- NOTE | 2020-09-20 17:29 | ER ---
Nurse's Notes [facility] Name: Che Helton Age: 54 yrs Sex: Female : 1965 Arrival Date: 09/19/2020 Time: 14:58 Bed 17 Private MD: Diagnosis: Chest pain, unspecified;Radiculopathy, lumbosacral region Presentation: 09/19 15:31 Chief complaint: EMS states: they were called to patients residence for chest pain. ap3 Coronavirus screen: At this time, the client does not indicate any symptoms associated with coronavirus-19. Ebola Screen: No symptoms or risks identified at this time. Initial Sepsis Screen: Does the patient meet any 2 criteria? No. Patient's initial sepsis screen is negative. Does the patient have a suspected source of infection? No. Patient's initial sepsis screen is negative. Risk Assessment: Do you want to hurt yourself or someone else? Patient reports no desire to harm self or others. Onset of symptoms was September 19, 2020. 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 LMP N/A - Post-menopause ap3 Historical: - Allergies: 15:36 PENICILLINS; ap3 15:36 Sulfa (Sulfonamide Antibiotics); ap3 - Home Meds: 15:36 amlodipine 25 mg tab 1 tab once daily [Active]; aspirin 81 mg Oral chew 1 tab once ap3 daily [Active]; atorvastatin Oral nightly [Active]; Cymbalta 30mg in the morning, 60mg at night Oral [Active]; metformin 500 mg Oral tab 1 tab 2 times per day [Active]; metoprolol tartrate 25 mg Oral tab 1 tab once daily [Active]; multivitamin with minerals Oral daily [Active]; Nitrostat 0.4 mg SL subl 1 tab every 5 minutes [Active]; [place] Oral as needed [Active]; Plavix 75 mg Oral tab 1 tab once daily [Active]; Seroquel 25 mg Oral tab 1 tab nightly [Active]; - PMHx: 15:36 ADD/ADHD; Anxiety; Bipolar disorder; Depression; Diabetes - NIDDM; Hyperlipidemia; ap3 Hypertension; Myocardial infarction; stroke; - Immunization history:: Adult Immunizations up to date, Client reports receiving the 2nd dose of the Covid vaccine, last week. - Family history:: not pertinent. - Social history:: Smoking status: unknown. - Hospitalizations: : No recent hospitalization is reported. Screenin:33 Abuse screen: Denies threats or abuse. Nutritional screening: No deficits noted. ap3 Tuberculosis screening: No symptoms or risk factors identified. Fall Risk None identified. Assessment: 15:33 General: Appears in no apparent distress. comfortable, Behavior is calm, cooperative, ap3 appropriate for age. Pain: Complains of pain in mid-sternal area Pain radiates to left arm Quality of pain is described as pressure, Pain began 2-3 days ago. Is continuous, Alleviated by rest. Neuro: Level of Consciousness is awake, alert, obeys commands, Oriented to person, place, time, situation, Appropriate for age. Cardiovascular: Reports chest pain, Denies shortness of breath, Capillary refill < 3 seconds Patient's skin is warm and dry. Respiratory: Airway is patent Respiratory effort is even, unlabored, Respiratory pattern is regular, symmetrical, Breath sounds are clear bilaterally. GI: No signs and/or symptoms were reported involving the gastrointestinal system. : No signs and/or symptoms were reported regarding the genitourinary system. EENT: No signs and/or symptoms were reported regarding the EENT system. Derm: No signs and/or symptoms reported regarding the dermatologic system. Vital Signs: 15:31 BP 160 / 80; Pulse 106; Resp 17; Pulse Ox 97% on R/A; ap3 16:03 Pulse 84; Resp 19; Pulse Ox 100% on R/A; ap3 ED Course: 14:58 Patient arrived in ED. em1 15:03 Giovanni Xiong MD is Attending Physician. rn 15:08 Katey Chiang RN is Primary Nurse. ap3 15:33 Triage completed. ap3 15:35 Arm band placed on right wrist. ap3 15:37 Patient has correct armband on for positive identification. Bed in low position. Call ap3 light in reach. Side rails up X2. regional marketing manager on. Pulse ox on. NIBP on. Door closed. Noise minimized. Warm blanket given. 15:47 Inserted saline lock: 20 gauge in right antecubital area, using aseptic technique. ap3 Blood collected. 15:56 XRAY Chest (1 view) In Process Unspecified. EDMS 17:31 No provider procedures requiring assistance completed. Patient did not have IV access ph during this emergency room visit. Administered Medications: 17:30 Drug: [place] (HYDROcodone-acetaminophen) 10 mg-325 mg 1 tabs Route: PO; ph Outcome: 16:26 Discharge ordered by . rn 17:31 Discharged to home via wheelchair, with significant other. ph 17:31 Condition: good 17:31 Discharge instructions given to patient, Instructed on discharge instructions, follow up and referral plans. Demonstrated understanding of instructions, follow-up care. 17:31 Patient left the ED. ph Signatures: Dispatcher [employer] EDMS Giovanni Xiong MD MD rn Benoit Hernandez em1 Yanna Mays RN RN ph Katey Chiang RN RN ap3
--- NOTE | 2020-09-20 17:29 | EDPHYS ---
Physician Documentation [facility] Name: Che Helton Age: 54 yrs Sex: Female : 1965 Arrival Date: 09/19/2020 Time: 14:58 Bed 17 Private MD: ED Physician Giovanni Xiong HPI: 09/19 15:10 This 54 yrs old Black Female presents to ER via Unassigned with complaints of chest rn pain. 15:10 The patient or guardian reports chest pain that is located primarily in the substernal rn area. Onset: 2 day(s) ago. The pain does not radiate. Associated signs and symptoms: Pertinent positives: None. Pertinent negatives: abdominal pain, cough, headache, shortness of breath, syncope, vomiting. 15:11 The chest pain is described as aching, a heaviness. Duration: The patient or guardian rn reports multiple episodes, that are intermittent. Modifying factors: The symptoms are alleviated by nothing. the symptoms are aggravated by nothing. Severity of pain: At its worst the pain was moderate in the emergency department the pain has improved. The patient has experienced similar episodes in the past. The patient has not recently seen a physician. Patient reports 2 days of central chest pain, no radiation, does feel tingling in left fingers but no pain in the arm. Denies trauma. Denies infection. Reports just had a second Moderna vaccine shot last week. 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 LMP N/A - Post-menopause ap3 Historical: - Allergies: 15:36 PENICILLINS; ap3 15:36 Sulfa (Sulfonamide Antibiotics); ap3 - Home Meds: 15:36 amlodipine 25 mg tab 1 tab once daily [Active]; aspirin 81 mg Oral chew 1 tab once ap3 daily [Active]; atorvastatin Oral nightly [Active]; Cymbalta 30mg in the morning, 60mg at night Oral [Active]; metformin 500 mg Oral tab 1 tab 2 times per day [Active]; metoprolol tartrate 25 mg Oral tab 1 tab once daily [Active]; multivitamin with minerals Oral daily [Active]; Nitrostat 0.4 mg SL subl 1 tab every 5 minutes [Active]; [place] Oral as needed [Active]; Plavix 75 mg Oral tab 1 tab once daily [Active]; Seroquel 25 mg Oral tab 1 tab nightly [Active]; - PMHx: 15:36 ADD/ADHD; Anxiety; Bipolar disorder; Depression; Diabetes - NIDDM; Hyperlipidemia; ap3 Hypertension; Myocardial infarction; stroke; - Immunization history:: Adult Immunizations up to date, Client reports receiving the 2nd dose of the Covid vaccine, last week. - Family history:: not pertinent. - Social history:: Smoking status: unknown. - Hospitalizations: : No recent hospitalization is reported. ROS: 15:11 Constitutional: Negative for fever, chills, and weight loss, Eyes: Negative for injury, rn pain, redness, and discharge, Neck: Negative for injury, pain, and swelling, Cardiovascular: Negative for palpitations, and edema, Respiratory: Negative for cough, wheezing Abdomen/GI: Negative for abdominal pain, nausea, vomiting, diarrhea, and constipation, Back: Negative for injury and pain, : Negative for injury, bleeding, discharge, and swelling, MS/Extremity: Negative for injury and deformity, Skin: Negative for injury, rash, and discoloration, Neuro: Negative for headache, weakness, numbness, tingling, and seizure. 15:11 All other systems are negative. rn Exam: 15:11 Constitutional: This is a well developed, well nourished patient who is awake, alert, rn and in no acute distress. Head/Face: Normocephalic, atraumatic. Eyes: Periorbital areas with no swelling, redness, or edema. Cardiovascular: Regular rate and rhythm, no pulse deficits. Respiratory: Speaking full sentences, unlabored. No increased work of breathing, no retractions or nasal flaring. Abdomen/GI: Soft, nontender, nondistended Skin: Warm, dry MS/ Extremity: Pulses equal, no cyanosis. Neuro: Awake and alert, GCS 15 Vital Signs: 15:31 BP 160 / 80; Pulse 106; Resp 17; Pulse Ox 97% on R/A; ap3 16:03 Pulse 84; Resp 19; Pulse Ox 100% on R/A; ap3 MDM: 15:03 Patient medically screened. rn 16:24 Differential diagnosis: acute pericarditis, anxiety, coronary artery disease chest wall rn pain, costochondritis, esophagitis, gastritis, gastroesophageal reflux disease (GERD), pleurisy, pneumothorax. Data reviewed: vital signs, nurses notes, lab test result(s), EKG, radiologic studies, plain films, and as a result, I will. 16:25 Counseling: I had a detailed discussion with the patient and/or guardian regarding: the rn historical points, exam findings, and any diagnostic results supporting the discharge/admit diagnosis, lab results, radiology results, the need for outpatient follow up, to return to the emergency department if symptoms worsen or persist or if there are any questions or concerns that arise at home. Response to treatment: the patient's symptoms have mildly improved after treatment, and as a result, I will discharge patient. Special discussion: Based on the patient's history, exam, and Dx evaluation, there is no indication for emergent intervention or inpatient Tx. It is understood by the patient/guardian that if the Sx's persist or worsen they need to return immediately for re-evaluation. I discussed with the patient/guardian in detail that at this point there is no indication for admission to the hospital. It is understood, however, that if the symptoms persist or worsen the patient needs to return immediately for re-evaluation. ED course: No acute finding on EKG or blood work or chest x-ray. Similar complaints in the past without acute findings on chart review. No oxygen requirement, stable vitals, will DC home with return precautions. 09/19 15:08 Order name: Basic Metabolic Panel 09/19 15:08 Order name: CBC with Diff rn 09/19 15:08 Order name: NT PRO-BNP; Complete Time: 16: 09/19 15:08 Order name: PT-INR; Complete Time: 16: 09/19 15:08 Order name: Troponin (emerg Dept Use Only); Complete Time: 16:17 rn 09/19 15:09 Order name: Basic Metabolic Panel; Complete Time: 16:17 EDMS 09/19 15:08 Order name: XRAY Chest (1 view); Complete Time: 16:17 09/19 15:08 Order name: EKG; Complete Time: 15: 09/19 15:08 Order name: Cardiac monitoring; Complete Time: 15: rn 09/19 15:08 Order name: EKG - Nurse/Tech; Complete Time: 15: 09/19 15:08 Order name: IV Saline Lock; Complete Time: 15: rn 09/19 15:08 Order name: Labs collected and sent; Complete Time: 15:30 rn 09/19 15:09 Order name: CBC with Automated Diff; Complete Time: 16:17 EDMS 09/19 15:08 Order name: O2 Per Protocol; Complete Time: 15:09 rn 09/19 15:08 Order name: O2 Sat Monitoring; Complete Time: 15:09 rn Administered Medications: 17:30 Drug: [place] (HYDROcodone-acetaminophen) 10 mg-325 mg 1 tabs Route: PO; ph Disposition Summary: 09/19/20 16:26 Discharge Ordered Location: Home rn Problem: new rn Symptoms: have improved rn Condition: Stable rn Diagnosis - Chest pain, unspecified rn - Radiculopathy, lumbosacral region rn Followup: rn - With: Private Physician - When: As needed - Reason: Recheck today's complaints, Re-evaluation by your physician Discharge Instructions: - Discharge Summary Sheet rn - Nonspecific Chest Pain, Adult rn - Lumbosacral Radiculopathy rn - Pain Without a Known Cause rn Forms: - Medication Reconciliation Form rn - Thank You Letter rn - Antibiotic alternative energy technician - Prescription Opioid Use rn Signatures: Dispatcher [employer] Giovanni Burton MD MD rn Hall, Patricia RN RN ph Katey Chiang, RN RN ap3
== END 2020-09-19 17:31 | disposition home or self-care (01) ==
LOC: ER 14:54
DX: M54.17 Radiculopathy, lumbosacral region (principal); I10 Essential (primary) hypertension; E11.9 Type 2 diabetes mellitus without complications; F31.9 Bipolar disorder, unspecified; Z79.01 Long term (current) use of anticoagulants; Z79.82 Long term (current) use of aspirin; Z88.0 Allergy status to penicillin; Z88.2 Allergy status to sulfonamides
CPT/HCPCS: 36415; 71045; 80048; 83880; 84484; 85025; 85610; 93005

== ENCOUNTER 2021-01-21 16:07 | Emergency (ER) | payer OTHER ==
--- OUTSIDE RECORDS SUMMARY | 2021-01-21 16:10 | XMS REPORT | Continuity of Care Document ---
:1965 Author Organization [facility] [place] t Address [address] [place] [address] [place] [address] Care Team Providers Name Role Phone Chayito Dickey Primary Care Physician Vicky SCHULZ Attending Clinician Unavailable LOREN Attending Clinician Unavailable Leroy NICHOLSON Attending Clinician Unavailable Chayito Dickey Attending Clinician Chayito TOMAS Attending Clinician Unavailable Raquel LYMAN Attending Clinician Unavailable Loren DOTY Attending Clinician Shanon Fragoso Attending Clinician Vicky Schluz MD Attending Clinician AME, K.H. Attending Clinician Unavailable Willem BADILLO Attending Clinician Unavailable Willem BADILLO Attending Clinician Unavailable Chayito SANCHEZ III Attending Clinician Unavailable Vicky SCHULZ Admitting Clinician Unavailable Payers Payer Name Policy Type Policy Number Effective Date Expiration Date S ronnell [facility] [id number] 2018 PLUS 00:00:00 [facility] [id number] 2010 2018 MEDICAID 00:00:00 00:00:00 Problems Condition Condition Condition Status Onset Resolution Last Treating Co mments Source Name Details Category Date Date Treatment Clinician Date Knee mass, Knee mass, Disease Active Overview : [facility] left 4-28 Formattin ity of 00:00: g of this [place] 00 note Medical might be Branch different from the original. Added automatic ally from request for surgery [id number] LEN LEN Disease Active Univers (obstructi (obstructi -19 it y of ve sleep ve sleep 00:00: [place] apnea) apnea) 00 Medical Branch Essential Essential Disease Active Uni vers hypertensi hypertensi -21 it y of on on 00:: Medical Branch Dyslipidem Dyslipidem Disease Active U nivers ia ia - ity of 00:00: [place] [facility] Coronary-m Coronary-m Disease Active U nivers yocardial yocardial - ity of bridge bridge 00:00: [place] [facility] Type 2 Type 2 Disease Active Univers diabetes diabetes 21 ity of mellitus mellitus 00:00: [place] without without 00 Medical complicati complicati Br anch on, on, without without long-term long-term current current use of use of insulin insulin Tobacco Tobacco Disease Active Univers abuse abuse - ity of 00:00: [place] [facility] Morbid Morbid Disease Active 2015-02 Univers obesity obesity 1-16 ity of with body with body 00:00: [facility] s mass index mass index 00 Me dical of of Branch 40.0-49.9 40.0-49.9 Chest pain Chest pain Disease Active 2015-02 U nivers 1-15 ity of 00:00: [place] [facility] Aphasia Aphasia Disease Active Univers 08-31 ity of 00:00: [place] [facility] Right-side Right-side Disease Active U nivers d muscle d muscle 08-31 ity of weakness weakness 00:00: [place] [facility] H/O H/O Disease Active Univers 08-30 ity of section section 00:00: [place] [facility] History of History of Disease Active U nivers [place] 08-30 ity of (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 Medical infarction infarction Br anch ) ) Metabolic Metabolic Disease Active Uni vers syndrome syndrome 08-30 ity of 00:00: [place] 00 Medical Branch Acute CVA Acute CVA Disease Active Uni vers (cerebrova (cerebrova 08-29 it y of scular scular 00:00: [place] accident) accident) 00 [facility] Branch Allergies, Adverse Reactions, Alerts Allergy Allergy Status Severity Reaction(s) Onset Inactive Treating Comm ents Source Name Type Date Date Clinician Morphine Propensi Active Itching 2015-02 Unive rs ty to 1-15 ity of adverse 00:00: [place] reaction 00 Medical s Branch SULFA Drug Active Anaphylaxis 2015-02 Unive rs (SULFONA Class 1-15 ity of MIDE 00:00: [place] ANTIBIOT 00 Medical ICS) Branch MORPHINE DRUG Active ITCHING 2015-02 Univers INGREDI 1-15 ity of 00:00: [place] 00 Medical Branch Sulfa Propensi Active Anaphylaxis 2015-02 Uni vers (Sulfona ty to 1-15 ity of mide adverse 00:00: [place] Antibiot reaction 00 Medica l ics) s Branch Sulfa Adverse Active Info Not [facility] Reaction Available [facility] Social History Social Habit Start Date Stop Date Quantity Comments Source History of tobacco Cigarette Smoker University of use [facility] Exposure to Not sure University of SARS-CoV-2 (event) [facility] Alcohol intake 2020-12-08 2020-12-08 0 /d University of 00:00:00 00:00:00 [facility] Branch History SDOH 2019-12-09 2019-12-09 5 University o f Financial 00:00:00 00:00:00 [place] [facility] History SDWV Food 2019-12-09 2019-12-09 1 Univers ity of Worry 00:00:00 00:00:00 [facility] History [facility] Food 2019-12-09 2019-12-09 1 Univers ity of Scarcity 00:00:00 00:00:00 [place] [facility] History SDOH 2019-12-09 2019-12-09 2 University o f Transport Med 00:00:00 00:00:00 [facility] al Branch History SDOH 2019-12-09 2019-12-09 2 University o f Transport Non-Med 00:00:00 00:00:00 [facility] [place] Branch Cigarettes smoked 2016-01-10 2016-01-10 Univers ity of current (pack per 00:00:00 00:00:00 [facility] [place] ) - Reported Branch Cigarette 2016-01-10 2016-01-10 University of pack-years 00:00:00 00:00:00 [facility] Tobacco use and 2016-01-10 2016-01-10 Never used Universit y of exposure 00:00:00 00:00:00 [facility] Sex [birth year] Universit y of 00:00:00 00:00:00 [facility] Smoking Status Start Date Stop Date Source Current every day smoker 2016-01-10 00:00:00 Uni versity of [facility] Medications Ordered Filled Start Stop Current Ordering Indication Dosage Frequency Signature Comments Components Source Medication Medication Date Date Medication? Clinician (SIG) Name Name gustavo 2020-02 Yes [id number] Apply to Univers ne 0-14 area(s) 2 ity of acetonide 00:00: (two) [place] 0.1 % cream 00 times Medical daily. Branch naziaamcinolo 2020-02 Yes [id number] Apply to Univers ne 0-14 area(s) 2 ity of acetonide 00:00: (two) [place] 0.1 % cream 00 times Medical daily. Branch triamterene 2020-02 Yes [id number] 1{capsu Take 1 Univers -hydrochlor 0-12 le} capsule by it y of othiazide 00:00: mouth [place] 37.5-25 mg 00 every Medical per capsule morning. Bran ch triamterene 2020-02 Yes [id number] 1{capsu Take 1 Univers -hydrochlor 0-12 le} capsule by it y of othiazide 00:00: mouth [place] 37.5-25 mg 00 every Medical per capsule morning. Bran ch aspirin 81 Yes 81mg Take 81 mg U nivers mg chewable 9-28 by mouth ity of tablet 16:55: daily. [address] atorvastati Yes 40mg Take 40 mg Univers n (LIPITOR) 9-28 by mouth ity of 40 mg 16:55: at [place] [address] bedtime. Medical Branch DULoxetine Yes 30mg Take 30 mg U nivers (CYMBALTA) 9-28 by mouth ity o f 30 mg 16:55: daily. [address] amitriptyli Yes 25mg Take 25 mg Univers ne 25 mg 9-28 by mouth ity of tablet 16:55: at bedtime [place] [id number] as needed Medical for Branch Insomnia. QUEtiapine Yes 50mg Take 50 mg U nivers (SEROQUEL) 9 by mouth ity o f 50 mg 16:55: daily. [place] tablet Medical Branch oxcarbazepi Yes Take by Un ines ne 9 mouth. ity of (TRILEPTAL 16:55: [place] ORAL) Medical Branch DULoxetine Yes 60mg Take 60 mg U nivers (CYMBALTA) 11-22 by mouth ity o f 60 mg 16:55: daily. [place] capsule Medical Branch aspirin 81 Yes 81mg Take 81 mg U nivers mg chewable 11-22 by mouth ity of tablet 16:55: daily. [place] [address] Medical Branch atorvastati Yes 40mg Take 40 mg Univers n (LIPITOR) 11-22 by mouth ity of 40 mg 16:55: at [place] [address] bedtime. Medical Branch DULoxetine Yes 30mg Take 30 mg U nivers (CYMBALTA) 11-22 by mouth ity o f 30 mg 16:55: daily. [place] [address] Medical Branch amitriptyli Yes 25mg Take 25 mg Univers ne 25 mg 11-22 by mouth ity of tablet 16:55: at bedtime [place] [address] as needed Medical for Branch Insomnia. QUEtiapine Yes 50mg Take 50 mg U nivers (SEROQUEL) 11-22 by mouth ity o f 50 mg 16:55: daily. [place] tablet Medical Branch oxcarbazepi Yes Take by Un ines ne 11-22 mouth. ity of (TRILEPTAL 16:55: [place] ORAL) Medical Branch DULoxetine Yes 60mg Take 60 mg U nivers (CYMBALTA) 28 by mouth ity o f 60 mg 16:55: daily. [place] capsule Medical Branch metFORMIN Yes [id number] 1000mg Take 1 Univers 1,000 mg 9-03 tablet by ity of tablet 00:00: mouth 2 [place] (two) Medical times Branch daily with meals. metFORMIN Yes [id number] 1000mg Take 1 Univers 1,000 mg 9-03 tablet by ity of tablet 00:00: mouth 2 [place] 00 (two) Medical times Branch daily with meals. diltiazem Yes [id number] 360mg Take 1 U nivers 360 mg 24 3-03 capsule by ity of hr capsule 00:00: mouth [place] 00 daily. Medical Branch diltiazem Yes [id number] 360mg Take 1 U nivers 360 mg 24 3-03 capsule by ity of hr capsule 00:00: mouth [place] 00 daily. Medical Branch nitroglycer 2019-[id number] 1 Univers in 0.4 mg 0-27 tablet ity of sublingual 00:00: [place] 00 tongue Medical every 5 Branch (five) minutes as needed for Chest pain. pantoprazol 2019-02 Yes [id number] 40mg Take 1 Univers e 40 mg EC 0-27 tablet by ity of tablet 00:00: mouth [place] 00 daily. Medical Branch nitroglycer 2019-[id number] 1 Univers in 0.4 mg 0-27 tablet ity of sublingual 00:00: [place] 00 tongue Medical every 5 Branch (five) minutes as needed for Chest pain. pantoprazol 2019-02 Yes [id number] 40mg Take 1 Univers e 40 mg EC 0-27 tablet by ity of tablet 00:00: mouth [place] 00 daily. Medical Branch gabapentin 2015-02 Yes 300mg Take 1 Univ ers (NEURONTIN) 1-17 capsule by it y of 300 mg 00:00: mouth 3 [place] capsule 00 (three) Medical times Branch daily. gabapentin 2015-02 Yes 300mg Take 1 Univ ers (NEURONTIN) 1-17 capsule by it y of 300 mg 00:00: mouth 3 [place] capsule 00 (three) Medical times Branch daily. Ondansetron Ondansetron Yes [place] 1 tablet [facility] [...] Calcium [facility] Jeanniezess Cocos Yes [place] [address] [facility] at least [facility] - 30 minutes Memoria before the l first meal Outpati of the day ent on an Clinics empty stomach Amitiza Amitiza Yes [place] [address] [facility] with food [facility] - and water [facility] Clinics Alprazolam Alprazolam Yes [place] [address] [facility] Metformin Metformin Yes [place] [address] HCl HCl [place] with a [facility] - meal [facility] Diltiazem Diltiazem Yes [place] TK [address] HCl ER HCl ER [place] D [facility] Coated Coated [facility]s [facility] Oxcarbazepi Oxcarbazepi Yes [place] 1 [...] S t [place] [facility] Hydrocodone Hydrocodone Yes [place] as [facility] -Acetaminop -Acetaminop [place] directed [facility] Diclofenac Diclofenac Yes [place] [address] Sodium Sodium [place] with food [facility] - or milk [facility] Immunizations Ordered Filled Immunization Date Status Comments Sourc e Immunization Name Name SARS-COV-2 COVID-19 2020-09-07 Completed Unive rsity of MODERNA VACCINE 00:00:00 [facility] SARS-COV-2 COVID-19 2020-09-07 Completed Unive rsity of MODERNA VACCINE 00:00:00 [facility] SARS-COV-2 COVID-19 2020-08-08 Completed Unive rsity of MODERNA VACCINE 00:00:00 [facility] SARS-COV-2 COVID-19 2020-08-08 Completed Unive rsity of MODERNA VACCINE 00:00:00 [facility] Flucelvax - Flucelvax - 2019-04-[address] [facility] - multidose vial multidose vial 00:00:00 [facility] Vital Signs Vital Name Observation Time Observation Value Comments Source Systolic blood 2020-12-08 17:48:00 149 mm[Hg] Univer sity of pressure [facility] Diastolic blood 2020-12-08 17:48:00 81 mm[Hg] Unive rsity of pressure [facility] Heart rate 2020-12-08 17:47:00 82 /min [facility] Body temperature 2020-12-08 17:47:00 36.94 [place] [facility] Body height 2020-12-08 17:47:00 160 cm [facility] Body weight 2020-12-08 17:47:00 124.694 kg [facility] BMI 2020-12-08 17:47:00 48.70 kg/m2 [facility] Oxygen saturation in 2020-12-08 17:47:00 98 /min [facility] blood by [facility] Pulse oximetry Branch Procedures This patient has no known procedures. Encounters Start End Encounter Admission Attending Care Care Encounter Source Date/Time Date/Time Type Type Clinicians Facility Department ID 2020-12-25 Emergency [facility] [id number] Univers 23:42:02 [facility] 2020-12-[address] [facility] SPL [id number] Univers 17:18:11 [facility] Emergency [facility] [id number] Univers 22:47:17 [facility] 2020-12-23 Emergency [facility] [id number] Univers 16:11:18 [facility] 2021-06-07 2021-06-07 Outpatient R LOREN, [facility] [id number] Univers 15:40:00 15:40:00 CRISTINA [id number] [facility] 2021-01-13 2021-01-13 Outpatient R BHARAT, [facility] [id number] Univers 10:00:00 10:00:00 SUDHIR [id number] [facility] 2020-12-08 2020-12-08 Office Thom, [facility] [id number] Univers 12:34:35 13:29:[address] [facility] [id number] i Tiesha [id number] Emmanuel as Too?Blea [id number] [address] Medical Office Building 2020-12-08 2020-12-08 Outpatient R THOM, [facility] [id number] Univers 12:30:00 12:30:00 LACIE [id number] [facility] 2020-12-08 2020-12-08 Outpatient R THOM, [facility] [id number] Univers 12:30:00 12:30:00 LACIE [facility] 2020-12-06 2020-12-06 Outpatient R LOREN, [facility] [id number] Univers 16:00:00 16:00:00 CRISTINA [id number] [facility] 2020-12-06 2020-12-06 Outpatient R LOREN, [facility] [id number] Univers 16:00:00 16:00:00 CRISTINA [facility] 2020-12-05 2020-12-05 Outpatient R LOREN, [facility] [id number] Univers 14:20:00 14:20:00 CRISTINA [id number] [facility] 2020-12-05 2020-12-05 Outpatient R LOREN, [facility] [id number] Univers 14:20:00 14:20:00 CRISTINA [facility] 2020-11-30 2020-11-30 Outpatient R LOREN, [facility] [id number] Univers 13:40:00 13:40:00 CRISTINA [id number] vic o f [facility] 2020-11-22 2020-11-22 Outpatient R [facility] [id number] Univers 17:00:00 17:00:00 [id number] [facility] 2020-11-22 2020-11-22 Outpatient R NURA, [facility] [id number] Univers 17:00:00 17:00:00 JONNA ho o hong [facility] 2020-11-03 2020-11-03 Outpatient R [facility] [id number] Univers 19:25:00 19:25:00 [id number] [facility] 2020-11-03 2020-11-03 Outpatient R NURA, [facility] [id number] Univers 19:25:00 19:25:00 JONNA ho o hong [facility] 2020-10-27 2020-10-27 Outpatient R THOM, [facility] [id number] Univers 13:30:00 13:30:00 LACIE [id number] [facility] 2020-10-27 2020-10-27 Outpatient R THOM, [facility] [id number] Univers 13:30:00 13:30:00 LACIE [facility] 2020-09-12 2020-09-12 [facility] [id number] 00:00:00 00:00:00 Cristina Guevara [id number] [place] [id number] Professio [id number] [facility] 059 [facility] 2020-08-01 2020-08-01 Emergency [facility] [id number] 16:53:00 20:11:00 Cassandra Guevara [id number] [place] [id number] [place] [id number] 2020-08-01 2020-08-01 Telephone GAGAN Schulz [id number] 00:00:00 00:00:00 Jacknevicky Robison [facility] [id number] CLINICS [id number] 2020-07-20 2020-07-20 TelemedicGAGAN Van [id number] 12:21:31 12:36:31 [facility] [id number] CLINICS [id number] 2020-07-20 2020-07-20 [facility] [id number] Univers 11:45:00 11:45:00 [facility] 2020-07-13 2020-07-13 Outpatient [facility] [id number] Univers 13:30:00 13:30:00 [id number] [facility] 2020-07-13 2020-07-13 Outpatient R [facility] [id number] Univers 13:30:00 13:30:00 [facility] 2020-06-22 2020-06-22 [facility] [id number] Univers 11:30:00 11:30:00 [facility] [id number] 2020-06-22 2020-06-22 [facility] [id number] Univers 11:30:00 11:30:00 [facility] 2020-06-14 2020-06-14 Outpatient R LOREN [facility] [id number] Univers 13:40:00 13:40:00 CRISTINA [id number] ity o f [facility] 2020-06-13 2020-06-13 [facility] [id number] Univers 13:06:54 13:06:54 [facility] 2020-05-31 2020-05-31 [facility] [id number] Univers 14:00:00 14:00:00 SENDIL [id number] [facility] 2020-05-31 2020-05-31 [facility] [id number] Univers 14:00:00 14:00:00 SENDIL [facility] 2020-05-19 2020-05-19 Outpatient Shanon KUSUM [facility] [id number] Univers 13:15:00 13:15:00 KATIE [id number] [facility] 2020-05-19 2020-05-19 Outpatient Shanon KUSUM [facility] [id number] Univers 13:15:00 13:15:00 KATIE [facility] 2020-05-19 2020-05-19 Outpatient [facility]LMLC [facility] [id number] [facility] 2020-05-11 2020-05-11 Outpatient STLMLC [facility] [id number] [facility] 2020-05-10 2020-05-10 Outpatient STLMLC [facility] [id number] [facility] 2020-05-09 2020-05-09 Outpatient STLMLC [facility] [id number] [facility] 2020-05-02 2020-05-02 Outpatient STLMLC [facility] [id number] [facility] 2020-03-31 2020-03-31 Outpatient STLMLC [facility]LMLC [id number] [facility] 2020-03-23 2020-03-23 Outpatient LOREN [facility] [id number] Univers 15:00:00 15:00:00 [facility] [id number] [facility] 2020-03-23 2020-03-23 Outpatient Shanon PIMENTEL [facility] [id number] Univers 15:00:00 15:00:00 [facility]INA [facility] 2020-03-21 2020-03-21 Outpatient STLMLC STL[facility] [id number] [facility] 2020-03-21 2020-03-21 Outpatient STLMLC [facility] [id number] [facility] 2020-02-01 2020-02-01 Outpatient STLMLC [facility] [id number] [facility] 2020-01-29 2020-01-29 Outpatient STLMLC [facility] [id number] [facility] 2020-01-27 2020-01-27 Outpatient STLMLC [facility] [id number] [facility] 2020-01-26 2020-01-26 Outpatient STLMLC [facility] [id number] [facility] 2020-01-07 2020-01-07 Outpatient [facility]LMLC [facility] [id number] [facility] 2020-01-06 2020-01-06 Outpatient STLMLC [facility] [id number] [facility] 2020-01-04 2020-01-04 Outpatient R LOREN, [facility] [id number] Univers 00:00:00 00:00:00 [facility]STINA [facility] 2020-01-04 2020-01-04 Outpatient R LOREN, [facility] [id number] Univers 00:00:00 00:00:00 [facility]RISTINA [facility] 2019-12-28 2019-12-28 Outpatient R LOREN, [facility] [id number] Univers 15:30:00 15:30:00 CRISTINA [facility] 2019-12-28 2019-12-28 Outpatient R LOREN, [facility] [id number] Univers 00:00:00 00:00:00 ALLYNINA [facility]otiperry [facility] 2019-12-22 2019-12-22 Outpatient R LOREN [facility] [id number] Univers 16:40:00 16:40:00 CRISTINA [id number] vic pitts [facility] 2019-12-22 2019-12-22 Outpatient R LOREN, [facility] [id number] Univers 16:40:00 16:40:00 ALLYNINA ho o f [facility] 2019-12-17 2019-12-17 Outpatient STLMLC [facility] [id number] [facility] 2019-12-14 2019-12-14 Outpatient STLMLC [facility] [id number] [facility] 2019-07-15 2019-07-15 [facility] [id number] 13:15:00 13:15:00 t wishkicker [facility] Outpat[facility] ent Clinics 2019-07-14 2019-07-14 Outpatient R LOREN, [facility] [id number] Univers 13:20:00 13:20:00 CRISTINA [id number] vic pitts [facility] 2019-07-14 2019-07-14 Outpatient R LOREN [facility] [id number] Univers 13:20:00 13:20:00 ALLYHARRYCODY vic pitts [facility] 2019-06-24 2019-06-24 Outpatient R LIAN BADILLO [facility] [id number] Univers 13:30:00 13:30:00 LIAN BADILLO 2003 [id number] [facility] 2019-06-24 2019-06-24 Outpatient R LIAN BADILLO [facility] [id number] Univers 13:30:00 13:30:00 LIAN BADILLO [facility] 2019-06-17 2019-06-17 Outpatient R LIAN BADILLO [facility] [id number] Univers 10:00:00 10:00:00 LIAN BADILLO 2003 [id number] [facility] 2019-06-17 2019-06-17 Outpatient R LIAN BADILLO [facility] [id number] Univers 10:00:00 10:00:00 LIAN BADILLO [facility] 2019-05-11 2019-05-11 [facility] [id number] 15:30:00 15:30:00 t [facility] 2019-05-04 2019-05-04 [facility] [id number] 09:30:00 09:30:00 t [facility] 2019-04-27 2019-04-27 [facility] [id number] 15:30:00 15:30:00 t [facility] 2019-04-16 2019-04-16 [facility] [id number] 13:00:00 13:00:00 t wishkicker [facility] 2019-04-08 2019-04-08 [facility] [id number] 16:19:00 16:19:00 t [facility] 2019-04-07 2019-04-07 [facility] [id number] 08:00:00 08:00:00 t [facility] 2019-04-02 2019-04-02 [facility] [id number] 11:30:00 11:30:00 t wishkicker [facility] 2019-03-31 2019-03-31 [facility] [id number] 16:13:00 16:13:00 t [facility] 2019-03-26 2019-03-26 Outpatient [facility] [place] [id number] [facility] 13:16:00 13:16:[address] [facility] - [facility] 2019-03-26 2019-03-26 [facility] [id number] 12:59:00 12:59:00 t [facility] 2019-03-05 2019-03-05 [facility] [id number] 08:38:00 08:38:00 t [facility] 2019-03-04 2019-03-04 [facility] [id number] 09:30:00 09:30:00 t [facility] 2019-03-03 2019-03-03 [facility] [id number] 16:25:00 16:25:00 t [facility] 2019-02-26 2019-02-26 [facility] [id number] 09:10:00 09:10:00 t [facility] 2019-02-13 2019-02-13 [facility] [id number] 13:36:00 13:36:00 t [facility] 2019-02-11 2019-02-11 [facility] [id number] 11:21:00 11:21:00 t [facility] 2019-02-09 2019-02-09 [facility] [id number] 14:30:00 14:30:00 t [facility] 2019-02-05 2019-02-05 [facility] [id number] 13:45:00 13:45:00 t wishkicker [facility] 2019-01-28 2019-01-28 [facility] [id number] 07:54:00 07:54:00 t [facility] Joint [facility] Clinic of [facility] of [facility] ent Clinics 2019-01-26 2019-01-26 [facility] [id number] 15:10:00 15:10:00 t wishkicker [facility] ent Clinics 2019-01-21 2019-01-21 [facility] [id number] 13:00:00 13:00:00 t wishkicker [facility] ent Clinics 2018-02-03 2018-02-03 [facility] [id number] 16:06:00 16:06:00 t wishkicker [facility] 2015-01-29 2015-01-29 Emergency X DANIEL III, [facility] ERT [id number] [facility] 15:16:12 17:44:00 CHARLEEN ho of [facility] Results This patient has no known results.
[2021-01-21 17:23] LABS: Absolute Lymphocytes (CBC) 2.3 K/uL (0.7-4.9); Basophils % 0.6 % (0-1.3); Hematocrit 37.7 % (36.0-45.0); Lymphocytes % 32.9 % (15.3-44.8); MPV 8.7 fL (7.6-11.3); RBC Red Blood Cell Count 4.42 M/uL (3.86-4.86)
[2021-01-21 17:29] LABS: Protime INR 1.02
[2021-01-21 17:36] LABS: Potassium 3.8 mmol/L (3.5-5.1)
[2021-01-21] MEDS ORDERED: FENTANYL CITR 100 MCG/2 ML ONE (17:38)
[2021-01-21] MEDS ORDERED: ONDANSETRON 4 MG/2 ML VIAL ONE (17:40)
--- NOTE | 2021-01-21 17:52 | RAD REPORT ---
EXAM DESCRIPTION: CT - Head C Spine Cap W Con - 01/21/2021 5:31 pm CLINICAL HISTORY: Trauma, head and neck injury. Chest, abdomen and pelvis pain. slip and fall COMPARISON: Head C Spine Cap Wo Con dated 06/13/2020 TECHNIQUE: CT head without contrast. CT cervical spine without contrast with coronal and sagittal reformatted images. CT chest, abdomen and pelvis with coronal and sagittal reformatted images of the spine. All CT scans are performed using dose optimization technique as appropriate and may include automated exposure control or mA/KV adjustment according to patient size. FINDINGS: CT HEAD WITHOUT CONTRAST: No intracranial hemorrhage, hydrocephalus or extra-axial fluid collection. No acute large vascular te rritory infarct. The paranasal sinuses and mastoids are clear. The calvarium is intact. CT CERVICAL SPINE WITHOUT CONTRAST: No fracture or subluxation. The prevertebral soft tissues are normal in thickness. CT CHEST, ABDOMEN, PELVIS: Thorax: Chest Wall: No abnormal mass Lungs: No acute abnormality. Pleura: No effusions or pneumothorax. Inessa/Mediastinum: No lymphadenopathy. Aorta/Pulmonary Arteries: Unremarkable Heart: Normal size. Abdomen/Pelvis: Liver: Hepatic steatosis. Biliary: No biliary ductal dilatation. Stomach: Partial gastrectomy. Duodenum: No significant focal abnormality. Pancreas: No significant abnormality. Spleen: No significant abnormality. Adrenal: No suspicious lesions. Kidney/ureter: No hydronephrosis. No renal calculi. Retroperitoneum: No retroperitoneal adenopathy. Vascular: No aneurysm. Bowel: No significant focal abnormality. Peritoneum: No ascites or free air. Bladder: Grossly unremarkable. Reproductive: No adnexal masses. Bones: No acute fracture. Other: n/a IMPRESSION: 1. No evidence of significant trauma to the head or neck. 2. No evidence of significant trauma to the chest, abdomen, or pelvis.
--- NOTE | 2021-01-21 18:22 | EDPHYS ---
Physician Documentation [facility] Name: Che Helton Age: 55 yrs Sex: Female : 1965 Arrival Date: 01/21/2021 Time: 16:12 Bed 19 Private MD: ED Physician Wang Olivas HPI: 01/21 16:20 This 55 yrs old Black Female presents to ER via EMS with complaints of Fall. cp 16:20 Details of fall: The patient fell from an upright position, while walking, and struck a cp tile surface. Onset: The symptoms/episode began/occurred just prior to arrival. Associated injuries: The patient sustained upper back injury, pain, injury to the low back, pain. Patient brought to ED by EMS after reported slip and fall in bathroom at home. Patient reports striking back of head and back. 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 - Social history:: Smoking status: Patient reports the use of cigarette tobacco products, Patient/guardian denies using alcohol, street drugs, IV drugs, caffeine. ROS: 16:25 Back: Positive for pain at rest, pain with movement. cp 16:25 Constitutional: Negative for body aches, chills, fever, poor PO intake. cp 16:25 Respiratory: Negative for cough, shortness of breath, wheezing. 16:25 Abdomen/GI: Negative for abdominal pain, nausea, vomiting, and diarrhea. 16:25 Neuro: Negative for altered mental status, numbness, syncope, weakness. 16:25 All other systems are negative. Exam: 16:30 Constitutional: The patient appears in no acute distress, alert, awake, non-toxic, well cp developed, well nourished, obese. 16:30 Head/Face: Normocephalic, atraumatic. cp 16:30 Eyes: Periorbital structures: appear normal, Pupils: equal, round, and reactive to light and accomodation, Extraocular movements: intact throughout, Conjunctiva: normal, no exudate, no injection, Lids and lashes: appear normal, bilaterally. 16:30 ENT: External ear(s): are unremarkable, Nose: is normal, Mouth: Lips: moist, Oral mucosa: moist, Posterior pharynx: Airway: no evidence of obstruction, patent. 16:30 Neck: C-spine: vertebral tenderness, that is mild, appreciated at C6 and C7, crepitus, is not appreciated, ROM/movement: limited range of motion, is not appreciated, nuchal rigidity, is not appreciated. 16:30 Chest/axilla: Inspection: normal. 16:30 Cardiovascular: Rate: normal, Rhythm: regular. 16:30 Respiratory: the patient does not display signs of respiratory distress, Respirations: normal, no use of accessory muscles, no retractions, labored breathing, is not present, Breath sounds: are clear throughout, no decreased breath sounds, no stridor, no wheezing. 16:30 Abdomen/GI: Inspection: obese Palpation: abdomen is soft and non-tender, in all quadrants. 16:30 Back: pain, that is moderate, of the thoracic area and lumbar area, ROM is painful, with all movement. 16:30 Musculoskeletal/extremity: Exam is negative for decreased range of motion, deformity, injury, Extremities: all appear grossly normal, with no appreciated pain with palpation. 16:30 Neuro: Orientation: to person, place \T\ time. Mentation: is normal, Motor: moves all fours, strength is normal, Sensation: is normal. Vital Signs: 14:08 BP 134 / 78; Pulse 86; Resp 18; Temp 98.4; Pulse Ox 100% ; Weight 117.93 kg; Height 5 sl2 ft. 3 in. (160.02 cm); 16:30 BP 120 / 67; Pulse 74; Resp 18; Pulse Ox 100% on R/A; sl2 17:00 BP 132 / 54; Pulse 74; Resp 18; Temp 98.4; Pulse Ox 100% ; sl2 18:00 BP 138 / 61; Pulse 82; Resp 18; Pulse Ox 99% on R/A; sl2 14:08 Body Mass Index 46.06 (117.93 kg, 160.02 cm) 2 MDM: 16:17 Patient medically screened. cp 17:00 Differential diagnosis: closed head injury, contusion, fracture, laceration, multiple cp trauma. 18:20 Data reviewed: vital signs, nurses notes, lab test result(s), radiologic studies, CT cp scan. 18:20 Counseling: I had a detailed discussion with the patient and/or guardian regarding: the cp historical points, exam findings, and any diagnostic results supporting the discharge/admit diagnosis, lab results, radiology results. ED course: VSS. Radiology studies negative for acute trauma. Will discharge to home for continued monitoring. 01/21 16:18 Order name: Basic Metabolic Panel; Complete Time: 18:02 01/21 18:02 Interpretation: Normal except: CL 110; GLUC 119; GFR 80. cp 01/21 16:18 Order name: CBC with Diff; Complete Time: 18:02 01/21 16:18 Order name: Type And Screen 01/21 16:20 Order name: PT-INR 01/21 16:20 Order name: Ptt, Activated cp 01/21 16:20 Order name: Protime (+INR); Complete Time: 18:02 EDMS 01/21 16:18 Order name: CT Traumagram (Head C Spine CAP W Con); Complete Time: 18:02 01/21 16:18 Order name: Labs collected and sent; Complete Time: 17:14 01/21 16:20 Order name: PTT, Activated Partial Thromb; Complete Time: 18:02 EDMS 01/21 18:33 Order name: Antibody Identification EDMS Administered Medications: 17:38 Drug: Zofran (Ondansetron) 4 mg Route: IVP; Site: right hand; sl2 17:40 Drug: fentaNYL (PF) 25 mcg Route: IVP; Site: right hand; sl2 17:57 Drug: fentaNYL (PF) 25 mcg Route: IVP; Site: right hand; sl2 Disposition: 18:30 Chart complete. 01/22 09:23 Co-signature as Attending Physician, Wang Olivas MD I agree with the assessment and ernie plan of care. Disposition Summary: 01/21/21 18:21 Discharge Ordered Location: Home cp Problem: new cp Symptoms: have improved cp Condition: Stable cp Diagnosis - Fall on same level, unspecified cp - Dorsalgia, unspecified cp Followup: cp - With: Private Physician - When: 2 - 3 days - Reason: Recheck today's complaints Discharge Instructions: - Discharge Summary Sheet cp - Acute Back Pain, Adult cp - Fall Prevention in the Home, Adult cp Forms: - Medication Reconciliation Form cp - Thank You Letter cp - Antibiotic Education cp - Prescription Opioid Use cp Prescriptions: - Lidoderm 5 % Topical adhesive patch,medicated - apply 1 patch by TOPICAL route once daily; 1 box; Refills: 0, Product Selection cp Permitted - Cyclobenzaprine 10 mg Oral Tablet - take 1 tablet by ORAL route every 8 hours As needed; 15 tablet; Refills: 0, cp Product Selection Permitted - Diclofenac Sodium 75 mg Oral Tablet Sustained Release - take 1 tablet by ORAL route 2 times per day; 30 tablet; Refills: 0, Product cp Selection Permitted Signatures: Dispatcher [employer] EDMS Wang Olivas MD MD cha Page, Corey PA PA cp Floridalma Olson RN RN sl2 Corrections: (The following items were deleted from the chart) 01/21 18:17 18:14 This 55 yrs old Black Female presents to ER via EMS with complaints of Fall. cp cp
--- NOTE | 2021-01-21 18:22 | ER ---
Nurse's Notes [facility] Name: Che Helton Age: 55 yrs Sex: Female : 1965 Arrival Date: 01/21/2021 Time: 16:12 Bed 19 Private MD: Diagnosis: Fall on same level, unspecified;Dorsalgia, unspecified Presentation: 01/21 14:08 Chief complaint: Patient states: SLIP AND FALL - MID BACK PAIN, HEAD PAIN: Patient AAO sl2 x 3, presents to ED via [facility] - slip and fell at home - hit her head - denies LOC. 14:08 Coronavirus screen: Vaccine status: Patient reports receiving the 2nd dose of the covid sl2 vaccine. Ebola Screen: Patient negative for fever greater than or equal to 101.5 degrees Fahrenheit, and additional compatible Ebola Virus Disease symptoms Patient denies exposure to infectious person. Patient denies travel to an Ebola-affected area in the 21 days before illness onset. No symptoms or risks identified at this time. Initial Sepsis Screen: Does the patient meet any 2 criteria? No. Patient's initial sepsis screen is negative. Does the patient have a suspected source of infection? No. Patient's initial sepsis screen is negative. Risk Assessment: Do you want to hurt yourself or someone else? Patient reports no desire to harm self or others. Onset of symptoms was January 21, 2021. 14:08 Method Of Arrival: EMS: [facility] 14:08 Acuity: NELY 2 sl2 Triage Assessment: 16:21 General: Appears uncomfortable, obese, well groomed, well developed, Behavior is calm, sl2 cooperative, appropriate for age. Pain: Complains of pain in Back Pain does not radiate. Pain currently is 8 out of 10 on a pain scale. Quality of pain is described as aching, sharp, Pain began suddenly. 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 - Social history:: Smoking status: Patient reports the use of cigarette tobacco products, Patient/guardian denies using alcohol, street drugs, IV drugs, caffeine. Screenin:48 Abuse screen: Denies threats or abuse. Denies injuries from another. Nutritional iw screening: No deficits noted. Tuberculosis screening: No symptoms or risk factors identified. Fall Risk None identified. Assessment: 18:47 Reassessment: Patient appears in no apparent distress at this time. Patient and/or iw family updated on plan of care and expected duration. Pain level reassessed. Patient is alert, oriented x 3, equal unlabored respirations, skin warm/dry/pink. Patient states feeling better. Patient states symptoms have improved. Vital Signs: 14:08 BP 134 / 78; Pulse 86; Resp 18; Temp 98.4; Pulse Ox 100% ; Weight 117.93 kg; Height 5 2 ft. 3 in. (160.02 cm); 16:30 BP 120 / 67; Pulse 74; Resp 18; Pulse Ox 100% on R/A; sl2 17:00 BP 132 / 54; Pulse 74; Resp 18; Temp 98.4; Pulse Ox 100% ; sl2 18:00 BP 138 / 61; Pulse 82; Resp 18; Pulse Ox 99% on R/A; sl2 14:08 Body Mass Index 46.06 (117.93 kg, 160.02 cm) 2 ED Course: 16:12 Patient arrived in ED. 2 16:14 Floridalma Olson, JULIEN is Primary Nurse. 2 16:17 Wang Blackmon PA is PHCP. cp 16:17 Wang Olivas MD is Attending Physician. cp 16:20 Triage completed. 2 16:21 Arm band placed on. sl2 17:14 Patient has correct armband on for positive identification. Placed in gown. Bed in low mh5 position. Call light in reach. Side rails up X2. Adult w/ patient. Warm blanket given. athletic monitor on. Pulse ox on. NIBP on. 17:14 PTT, Activated Partial Thromb Sent. mh5 17:14 Protime (+INR) Sent. 5 17:14 Ptt, Activated Sent. 5 17:14 PT-INR Sent. 5 17:14 Basic Metabolic Panel Sent. 5 17:14 CBC with Diff Sent. mh5 17:14 Type And Screen Sent. [facility] 17:15 Initial lab(s) drawn, by ED staff, sent to lab. T\T\S collected, blood band applied to mh5 patient. Inserted saline lock: 22 gauge in right wrist, using aseptic technique. Blood collected. 17:31 CT Traumagram (Head C Spine CAP W Con) In Process Unspecified. EDMS 18:47 No provider procedures requiring assistance completed. IV discontinued, intact, iw bleeding controlled, No redness/swelling at site. Pressure dressing applied. Administered Medications: 17:38 Drug: Zofran (Ondansetron) 4 mg Route: IVP; Site: right hand; sl2 17:40 Drug: fentaNYL (PF) 25 mcg Route: IVP; Site: right hand; sl2 17:57 Drug: fentaNYL (PF) 25 mcg Route: IVP; Site: right hand; sl2 Outcome: 18:21 Discharge ordered by MD. cp 18:47 Discharged to home via wheelchair, with friend. iw 18:47 Condition: good 18:47 Discharge instructions given to patient, Instructed on discharge instructions, follow up and referral plans. medication usage, Demonstrated understanding of instructions, follow-up care, medications, Prescriptions given X 3. 18:48 Patient left the ED. iw Signatures: Dispatcher [employer] EDStarr Killian, RN RN iw Wang Blackmon PA PA cp Martinez, Maria [facility] Floridalma Olson, RN RN sl2
[2021-01-21 18:56] VITALS: TEMP 98.4
[2021-01-21 18:58] VITALS: BP 138/61; O2SAT 99
== END 2021-01-21 18:48 | disposition home or self-care (01) ==
LOC: ER 16:07
DX: M54.50 Low back pain, unspecified (principal); W01.0XXA Fall on same level from slipping, tripping and stumbling without subsequent striking against object, initial encounter; Y92.002 Bathroom of unspecified non-institutional (private) residence as the place of occurrence of the external cause
CPT/HCPCS: 85025; 80048; 36415; 86900; 86850; 85610; 82565; 86870; 86901; 85730; 70450; 72125; 71260; 74177; 96375; 96374; 99285; Q9967; J3010; J2405

== ENCOUNTER 2021-03-16 14:37 | Observation (INO) | payer OTHER ==
--- OUTSIDE RECORDS SUMMARY | 2021-03-16 14:42 | XMS REPORT | Continuity of Care Document ---
:1965 Author Organization [facility] t Address [address] [place] [address] [place] [address] Care Team Providers Name Role Phone THOM, Chayito Primary Care Physician Unavailable Nickie SCHULZ Attending Clinician Unavailable LOREN Attending Clinician Unavailable Chayito TOMAS Attending Clinician Unavailable Leroy NICHOLSON Attending Clinician Unavailable Chayito Dickey Attending Clinician Raquel LYMAN Attending Clinician Unavailable Loren DOTY Attending Clinician Shanon Fragoso Attending Clinician Nickie Schulz MD Attending Clinician AME, K.H. Attending Clinician Unavailable Willem BADILLO Attending Clinician Unavailable Willem BADILLO Attending Clinician Unavailable Chayito SANCHEZ III Attending Clinician Unavailable Nickie SCHULZ Admitting Clinician Unavailable Payers Payer Name Policy Type Policy Number Effective Date Expiration Date [facility] [id number] 2018 PLUS 00:00:00 [facility] [id number] 2010 2018 MEDICAID 00:00:00 00:00:00 Problems Condition Condition Condition Status Onset Resolution Last Treating Co mments Source Name Details Category Date Date Treatment Clinician Date Knee mass, Knee mass, Disease Active Overview : Univers left left 4-28 Formattin ity of 00:00: g of this [place] note Medical might be Branch different from the original. Added automatic ally from request for surgery [id number] LEN LEN Disease Active Univers (obstructi (obstructi 5-19 it y of ve sleep ve sleep 00:00: [place] apnea) apnea) 00 Medical Branch Essential Essential Disease Active Uni vers hypertensi hypertensi -21 it y of on on 00:00: [place] 00 Medical Branch Dyslipidem Dyslipidem Disease Active U nivers ia ia -21 ity of 00:00: [place] [facility] Coronary-m Coronary-m Disease Active U nivers yocardial yocardial -21 ity of bridge bridge 00:00: [place] [facility] Type 2 Type 2 Disease Active Univers diabetes diabetes -21 ity of mellitus mellitus 00:00: [place] without without 00 Medical complicati complicati Br anch on, on, without without long-term long-term current current use of use of insulin insulin Tobacco Tobacco Disease Active Univers abuse abuse -21 ity of 00:00: [place] [facility] Morbid Morbid Disease Active 2015-02 Univers obesity obesity 1-16 ity of with body with body 00:00: [facility] s mass index mass index 00 Me dical of of Branch 40.0-49.9 40.0-49.9 Chest pain Chest pain Disease Active 2015-02 U nivers 1-15 ity of 00:00: [place] [facility] Aphasia Aphasia Disease Active Univers 07 ity of 00:00: [place] 00 Medical Branch Right-side Right-side Disease Active U nivers d muscle d muscle 08-31 ity of weakness weakness 00:00: [place] [facility] H/O H/O Disease Active Univers 08-30 ity of section section 00:00: [place] 00 Medical Branch History of History of Disease Active U nivers IA IA 08-30 ity of (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 Medical infarction infarction Br anch ) ) Metabolic Metabolic Disease Active Uni vers syndrome syndrome 08-30 ity of 00:00: [place] 00 Medical Branch Acute CVA Acute CVA Disease Active Uni vers (cerebrova (cerebrova 08-29 it y of scular scular 00:00: [place] accident) accident) 00 Medi elizabeth Branch Allergies, Adverse Reactions, Alerts Allergy Allergy [...] Not [facility] Reaction Available [facility] Social History Social Habit Start Date Stop Date Quantity Comments Source History of tobacco Cigarette Smoker University of use [facility] Exposure to Not sure University of SARS-CoV-2 (event) [facility] Alcohol intake 2020-12-08 2020-12-08 0 /d University of 00:00:00 00:00:00 [place] [facility] History SDOH 2019-12-09 2019-12-09 5 University o f Financial 00:00:00 00:00:00 [place] [facility] History SDOH Food 2019-12-09 2019-12-09 1 Univers ity of Worry 00:00:00 00:00:00 [place] [facility] [place] History SDOH Food 2019-12-09 2019-12-09 1 Univers ity of Scarcity 00:00:00 00:00:00 [place] [facility] History SDOH 2019-12-09 2019-12-09 2 University o f Transport Med 00:00:00 00:00:00 [facility] [place] [facility] al Branch History SDOH 2019-12-09 2019-12-09 2 University o f Transport Non-Med 00:00:00 00:00:00 [facility] Cigarettes smoked 2016-01-10 2016-01-10 Univers ity of current (pack per 00:00:00 00:00:00 [facility] ) - Reported Branch Cigarette 2016-01-10 2016-01-10 University of pack-years 00:00:00 00:00:00 [facility] Tobacco use and 2016-01-10 2016-01-10 Never used Universit y of exposure 00:00:00 00:00:00 [facility] Sex [birth year] Universit y of 00:00:00 00:00:00 [facility] Smoking Status Start Date Stop Date Source Current every day smoker 2016-01-10 00:00:00 Uni versity of [facility] Medications Ordered Filled Start Stop Current Ordering Indication Dosage Frequency Signature Comments Components Source Medication Medication Date Date Medication? Clinician (SIG) Name Name gustavo 2020-02 Yes [id number] Apply to [facility] ne 0-14 area(s) 2 ity of acetonide 00:00: (two) [place] 0.1 % cream 00 times Medical daily. Branch triamcinolo 2020-02 Yes [id number] Apply to [facility] ne 0-14 area(s) 2 ity of acetonide 00:00: (two) [place] 0.1 % cream 00 times Medical daily. Branch triamterene 2020-02 Yes [id number] 1{capsu Take 1 Univers -hydrochlor 0-12 le} capsule by it y of othiazide 00:00: mouth [place] 37.5-25 mg 00 every Medical per capsule morning. Bran ch triamterene 2020-02 Yes [id number] 1{capsu Take 1 Univers -hydrochlor 0-12 le} capsule by it y of othiazide 00:00: mouth [place] 37.5-25 mg 00 every Medical per capsule morning. Bran ch aspirin 81 Yes 81mg Take 81 mg U nivers mg chewable 9-28 by mouth ity of tablet 16:55: daily. [address] atorvastati Yes 40mg Take 40 mg Univers n (LIPITOR) 9-28 by mouth ity of 40 mg 16:55: at [place] [address] bedtime. Medical Branch DULoxetine Yes 30mg Take 30 mg U nivers (CYMBALTA) 9-28 by mouth ity o f 30 mg 16:55: daily. [place] [address] Medical Branch amitriptyli Yes 25mg Take 25 mg Univers ne 25 mg 9-28 by mouth ity of tablet 16:55: at bedtime [place] [address] as needed Medical for Branch Insomnia. QUEtiapine 2021-0 Yes 50mg Take 50 mg U nivers (SEROQUEL) 11-22 by mouth ity o f 50 mg 16:55: daily. [place] tablet Medical Branch oxcarbazepi Yes Take by Un ines ne 11-22 mouth. ity of (TRILEPTAL 16:55: [place] ORAL) Medical Branch DULoxetine Yes 60mg Take 60 mg U nivers (CYMBALTA) 11-22 by mouth ity o f 60 mg 16:55: daily. [place] capsule Medical Branch aspirin 81 0 Yes 81mg Take 81 mg U nivers mg chewable 11-22 by mouth ity of tablet 16:55: daily. [place] [address] Medical Branch atorvastati Yes 40mg Take 40 mg Univers n (LIPITOR) 11-22 by mouth ity of 40 mg 16:55: at [place] [address] bedtime. Medical Branch DULoxetine Yes 30mg Take 30 mg U nivers (CYMBALTA) 11-22 by mouth ity o f 30 mg 16:55: daily. [place] capsule Medical Branch amitriptyli Yes 25mg Take 25 mg Univers ne 25 mg 11-22 by mouth ity of tablet 16:55: at bedtime [place] [address] as needed Medical for Branch Insomnia. QUEtiapine Yes 50mg Take 50 mg U nivers (SEROQUEL) 11-22 by mouth ity o f 50 mg 16:55: daily. [place] tablet Medical Branch oxcarbazepi Yes Take by Un ines ne 11-22 mouth. ity of (TRILEPTAL 16:55: [place] ORAL) Medical Branch DULoxetine Yes 60mg Take 60 mg U nivers (CYMBALTA) 11-22 by mouth ity o f 60 mg 16:55: daily. [place] capsule Medical Branch metFORMIN 0 Yes [id number] 1000mg Take 1 Univers 1,000 mg 9-03 tablet by ity of tablet 00:00: mouth 2 (two) Medical times Branch daily with meals. metFORMIN 0 Yes [id number] 1000mg Take 1 Univers 1,000 mg 9-03 tablet by ity of tablet 00:00: mouth 2 (two) Medical times Branch daily with meals. diltiazem Yes [id number] 360mg Take 1 U nivers 360 mg 24 3-03 capsule by ity of hr capsule 00:00: mouth [place] 00 daily. Medical Branch diltiazem Yes [id number] 360mg Take 1 U nivers 360 mg 24 3-03 capsule by ity of hr capsule 00:00: mouth [place] 00 daily. Medical Branch nitroglycer 2019-[id number] 1 Univers in 0.4 mg 0-27 tablet ity of sublingual 00:00: [place] tablet 00 tongue Medical every 5 Branch (five) minutes as needed for Chest pain. pantoprazol 2019-02 Yes [id number] 40mg Take 1 Univers e 40 mg EC 0-27 tablet by ity of tablet 00:00: mouth [place] 00 daily. Medical Branch nitroglycer 2019-[id number] 1 Univers in 0.4 mg 0-27 tablet ity of sublingual 00:00: [place] tablet 00 tongue Medical every 5 Branch (five) minutes as needed for Chest pain. pantoprazol 2019-02 Yes [id number] 40mg Take 1 Univers e 40 mg [...] s [facility] Henry Sepulvedas Yes [place] [address] [...] or milk Memoria [facility] Outpat[facility] ent Clinics Immunizations Ordered Filled Immunization Date Status Comments Sourc e Immunization Name Name SARS-COV-2 COVID-19 2020-09-07 Completed Unive rsity of MODERNA VACCINE 00:00:00 [facility] SARS-COV-2 COVID-19 2020-09-07 Completed Unive rsity of MODERNA VACCINE 00:00:00 [facility] SARS-COV-2 COVID-19 2020-08-08 Completed Unive rsity of MODERNA VACCINE 00:00:00 [facility] SARS-COV-2 COVID-19 2020-08-08 Completed Unive rsity of MODERNA VACCINE 00:00:00 [facility] Flucelvax - Flucelvax - 2019-04-[address] [facility] - multidose vial multidose vial 00:00:00 [facility] Vital Signs Vital Name Observation Time Observation Value Comments Source Systolic blood 2020-12-08 17:48:00 149 mm[Hg] Univer sity of pressure [facility] Diastolic blood 2020-12-08 17:48:00 81 mm[Hg] Unive rsity of pressure [facility] Heart rate 2020-12-08 17:47:00 82 /min [facility] Body temperature 2020-12-08 17:47:00 36.94 [facility] height 2020-12-08 17:47:00 160 cm [facility] Body weight 2020-12-08 17:47:00 124.694 kg [facility] BMI 2020-12-08 17:47:00 48.70 kg/m2 [facility] Oxygen saturation in 2020-12-08 17:47:00 98 /min [facility] blood by [facility] Pulse oximetry Branch Procedures This patient has no known procedures. Encounters Start End Encounter Admission Attending Care Care Encounter Source Date/Time Date/Time Type Type Clinicians Facility Department ID 2020-12-25 Emergency [facility] [id number] Univers 23:42:02 [facility] 2020-12-25 Outpatient JAZZ [facility] SPL [id number] Univers 17:18:11 [facility] 2020-12-23 Emergency [facility] [id number] Univers 22:47:17 [facility] 2020-12-23 Emergency [facility] [id number] Univers 16:11:18 [facility] 2021-06-07 2021-06-07 Outpatient R LOREN, [facility] [id number] Univers 15:40:00 15:40:00 CRISTINA [id number] ity o [facility] 2021-01-25 2021-01-25 Outpatient R THOM, [facility] [id number] Univers 11:00:00 11:00:00 LACIE [id number] [facility] 2021-01-25 2021-01-25 Outpatient R TOHM, [facility] [id number] Univers 11:00:00 11:00:00 LACIE [facility] 2021-01-13 2021-01-13 Outpatient Shanon NICHOLSON, [facility] [id number] Univers 10:00:00 10:00:00 SUDHIR [id number] [facility] 2020-12-08 2020-12-08 [facility] [id number] Univers 12:34:35 13:29:22 Visit Lacie Stratton Yovigo [id number] i [facility] [place] [id number] Emmanuel as Too?Blea [phone] In shakir [address] Medical Office Building 2020-12-08 2020-12-08 Outpatient R THOM, [facility] [id number] Univers 12:30:00 12:30:00 LACIE [id number] [facility] 2020-12-08 2020-12-08 Outpatient R THOM, [facility] [id number] Univers 12:30:00 12:30:00 LACIE [facility] 2020-12-06 2020-12-06 Outpatient R LOREN, [facility] [id number] Univers 16:00:00 16:00:00 CRISTINA [id number] [facility] o [facility] 2020-12-06 2020-12-06 Outpatient R LOREN, [facility] [id number] Univers 16:00:00 16:00:00 CRISTINA ho o [facility] 2020-12-05 2020-12-05 Outpatient R LOREN, [facility] [id number] Univers 14:20:00 14:20:00 CRISTINA [id number] ity o [facility] 2020-12-05 2020-12-05 Outpatient R LOREN, [facility] [id number] Univers 14:20:00 14:20:00 CRISTINA ho o [facility] 2020-11-30 2020-11-30 Outpatient R LOREN, [facility] [id number] Univers 13:40:00 13:40:00 CRISTINA [id number] ity o [facility] 2020-11-22 2020-11-22 Outpatient R [facility] [id number] Univers 17:00:00 17:00:00 [id number] [facility] 2020-11-22 2020-11-22 Outpatient R NURA, [facility] [id number] Univers 17:00:00 17:00:00 JONNA perry o [facility] 2020-11-03 2020-11-03 Outpatient R [facility] [id number] Univers 19:25:00 19:25:00 [id number] [facility] 2020-11-03 2020-11-03 Outpatient R NURA, [facility] [id number] Univers 19:25:00 19:25:00 JONNA ho o [facility] 2020-10-27 2020-10-27 Outpatient R THOM, [facility] [id number] Univers 13:30:00 13:30:00 LACIE [id number] [facility] 2020-10-27 2020-10-27 Outpatient R THOM, [facility] [id number] Univers 13:30:00 13:30:00 LACIE [facility] 2020-09-12 2020-09-12 [place] [facility] [id number] 00:00:00 00:00:00 Cristina Guevara [id number] [place] [id number] [place] [id number] [facility] [address] [facility] 2020-08-01 2020-08-01 Emergency [facility] [id number] 16:53:00 20:11:00 Cassandra Guevara [id number] [place] [id number] [place] [id number] 2020-08-01 2020-08-01 Telephone VIKAS Schulz [id number] 00:00:00 00:00:00 [facility] [employer] [id number] [facility] [id number] 201 2020-07-20 2020-07-20 [employer] [facility] [id number] 12:21:31 12:36:31 ne Visit [facility] [id number] [facility] [id number] 2020-07-20 2020-07-20 Outpatient R JAZZ [facility] [id number] Univers 11:45:00 11:45:00 KATIE [facility] 2020-07-13 2020-07-13 Outpatient [facility] [id number] Univers 13:30:00 13:30:00 [id number] [facility] 2020-07-13 2020-07-13 Outpatient R [facility] [id number] Univers 13:30:00 13:30:00 [facility] 2020-06-22 2020-06-22 Outpatient R JAZZ [facility] [id number] Univers 11:30:00 11:30:00 KATIE [id number] [facility] 2020-06-22 2020-06-22 Outpatient R JAZZ [facility] [id number] Univers 11:30:00 11:30:00 KATIE [facility] 2020-06-14 2020-06-14 Outpatient R LOREN [facility] [id number] Univers 13:40:00 13:40:00 CRISTINA [id number] ity o f [facility] 2020-06-13 2020-06-13 Outpatient R JAZZ [facility] [id number] Univers 13:06:54 13:06:54 LUDWIK [facility] 2020-05-31 2020-05-31 Outpatient Shanon AME [facility] [id number] Univers 14:00:00 14:00:00 SENDIL [id number] [facility] 2020-05-31 2020-05-31 Outpatient Shanon MCCLOUD, [facility] [id number] Univers 14:00:00 14:00:00 SENDIL [facility] 2020-05-19 2020-05-19 Outpatient Shanon JAZZ [facility] [id number] Univers 13:15:00 13:15:00 [facility] [id number] [facility] 2020-05-19 2020-05-19 [facility] [id number] Univers 13:15:00 13:15:00 KATIE [facility] 2020-05-19 2020-05-19 Outpatient [facility] [id number] [facility] 2020-05-11 2020-05-11 Outpatient [facility]LML[facility] [id number] [facility] 2020-05-10 2020-05-10 Outpatient [facility]ML[facility] [id number] [facility] 2020-05-09 2020-05-09 Outpatient [facility]ML[facility] [id number] [facility] 2020-05-02 2020-05-02 Outpatient [facility]ML[facility] [id number] [facility] 2020-03-31 2020-03-31 Outpatient [facility]ML[facility] [id number] [facility] 2020-03-23 2020-03-23 Outpatient LOREN [facility] [id number] Univers 15:00:00 15:00:00 CRISTINA [id number] [facility] 2020-03-23 2020-03-23 Outpatient R LOREN, [facility] [id number] Univers 15:00:00 15:00:00 CRISTINA ho [facility] 2020-03-21 2020-03-21 Outpatient [facility]LMLC [facility] [id number] [facility] 2020-03-21 2020-03-21 Outpatient [facility]LMLC [facility] [id number] [facility] 2020-02-01 2020-02-01 Outpatient [facility]LMLC [facility] [id number] [facility] 2020-01-29 2020-01-29 Outpatient [facility]ML[facility] [id number] [facility] 2020-01-27 2020-01-27 Outpatient [facility]LMLC [facility] [id number] [facility] 2020-01-26 2020-01-26 Outpatient [facility]LMLC [facility] [id number] [facility] 2020-01-07 2020-01-07 Outpatient [facility]LMLC [facility] [id number] [facility] 2020-01-06 2020-01-06 Outpatient [facility]LMLC [facility] [id number] [facility] 2020-01-04 2020-01-04 Outpatient R LOREN, [facility] [id number] Univers 00:00:00 00:00:00 CRISTINA [id number] [place] [facility] 2020-01-04 2020-01-04 Outpatient R LOREN, [facility] [id number] Univers 00:00:00 00:00:00 ALLYNINA ho [facility] 2019-12-28 2019-12-28 Outpatient R LOREN, [facility] [id number] Univers 15:30:00 15:30:00 CRISTINA ity o [facility] 2019-12-28 2019-12-28 Outpatient R LOREN, [facility] [id number] Univers 00:00:00 00:00:00 CRISTINA ho o [facility] 2019-12-22 2019-12-22 Outpatient R LOREN, [facility] [id number] Univers 16:40:00 16:40:00 CRISTINA [id number] vic o [facility] 2019-12-22 2019-12-22 Outpatient R LOREN, [facility] [id number] Univers 16:40:00 16:40:00 CRISTINA ho o [facility] 2019-12-17 2019-12-17 Outpatient [facility]LMLC [facility] [id number] [facility]00 [facility] Outpati ent Clinics 2019-12-14 2019-12-14 Outpatient STLMLC [facility]ML[facility] [id number] [facility] 2019-07-15 2019-07-15 [facility] [id number] 13:15:00 13:15:00 Roomtag [facility] Medicine Medicine Outpati ent Clinics 2019-07-14 2019-07-14 Outpatient R LOREN, [facility] [id number] Univers 13:20:00 13:20:00 CRISTINA [id number] jyotiperry o [facility] 2019-07-14 2019-07-14 Outpatient R LOREN, [facility] [id number] Univers 13:20:00 13:20:00 CRISTINA ho o [facility] 2019-06-24 2019-06-24 Outpatient R LIAN BADILLO [facility] [id number] Univers 13:30:00 13:30:00 LIAN BADILLO 2003 [facility] 2019-06-24 2019-06-24 Outpatient R LIAN BADILLO [facility] [id number] Univers 13:30:00 13:30:00 LIAN BADILLO [facility] 2019-06-17 2019-06-17 Outpatient R LIAN BADILLO [facility] [id number] Univers 10:00:00 10:00:00 LIAN BADILLO 2003 [facility] 2019-06-17 2019-06-17 Outpatient R LIAN BADILLO [facility] [id number] Univers 10:00:00 10:00:00 LIAN BADILLO [facility] 2019-05-11 2019-05-11 [facility] [id number] 15:30:00 15:30:00 [facility] ent Clinics 2019-05-04 2019-05-04 [facility] [id number] 09:30:00 09:30:00 t [facility] ent Clinics 2019-04-27 2019-04-27 [facility] [id number] 15:30:00 15:30:00 t [facility] ent [facility] 2019-04-16 2019-04-16 [facility] [id number] 13:00:00 13:00:00 t [employer] [facility] 2019-04-08 2019-04-08 [facility] [id number] 16:19:00 16:19:00 t [facility] ent [facility] 2019-04-07 2019-04-07 [facility] [id number] 08:00:00 08:00:00 t [facility] ent [facility] 2019-04-02 2019-04-02 [facility] [id number] 11:30:00 11:30:00 t [employer] [facility] ent [facility] 2019-03-31 2019-03-31 [facility] [id number] 16:13:00 16:13:00 t [facility] 2019-03-26 2019-03-26 [facility] [id number] 13:16:00 13:16:00 [facility] [employer] [facility] 2019-03-26 2019-03-26 [facility] [id number] 12:59:00 12:59:00 t [facility] 2019-03-05 2019-03-05 [facility] [id number] 08:38:00 08:38:00 t [facility] ent [facility] 2019-03-04 2019-03-04 [facility] [id number] 09:30:00 09:30:00 t [facility] ent [facility] 2019-03-03 2019-03-03 [facility] [id number] 16:25:00 16:25:00 t [facility] ent [facility] 2019-02-26 2019-02-26 [facility] [id number] 09:10:00 09:10:00 t [facility] ent Clinics 2019-02-13 2019-02-13 [facility] [id number] 13:36:00 13:36:00 t [facility] [employer] [facility] 2019-02-11 2019-02-11 [facility] [id number] 11:21:00 11:21:00 [facility] ent Clinics 2019-02-09 2019-02-09 [facility] [id number] [address] 14:30:00 14:30:00 [facility] ent Clinics 2019-02-05 2019-02-05 [facility] [id number] 13:45:00 13:45:00 t [place] [facility] ent Clinics 2019-01-28 2019-01-28 [facility] [id number] [address] 07:54:00 07:54:00 t [facility] [place] ent Clinics 2019-01-26 2019-01-26 [facility] [id number] 15:10:00 15:10:00 t [facility] ent Clinics 2019-01-21 2019-01-21 [facility] [id number] 13:00:00 13:00:00 t [employer] [facility] ent Clinics 2018-02-03 2018-02-03 [facility] [id number] 16:06:00 16:06:00 t [employer] [facility] ent Clinics 2015-01-29 2015-01-29 Emergency X DANIEL III, [facility] ERT [id number] [employer] 15:16:12 17:44:00 CHARLEEN ho of [facility] Results This patient has no known results.
[2021-03-16] MEDS ORDERED: NA CHLORIDE 0.9% 1,000 ML ONE (15:07)
[2021-03-16] MEDS ORDERED: NA CHLORIDE 0.9% 500 ML ONE (15:08)
--- NOTE | 2021-03-16 15:20 | RAD REPORT ---
EXAM DESCRIPTION: CT - Head Brain Wo Cont - 03/16/2021 3:08 pm CLINICAL HISTORY: Dizziness;Headache Headache, drowsiness COMPARISON: Ct Stroke Brain Wo Cont dated 12/12/2017; Ct Stroke Brain Wo Cont dated 05/09/2017 TECHNIQUE: All CT scans are performed using dose optimization technique as appropriate and may inclu de automated exposure control or mA/KV adjustment according to patient size. FINDINGS: No intracranial hemorrhage, hydrocephalus or extra-axial fluid collection.No areas of brai n edema or evidence of midline shift. The paranasal sinuses and mastoids are clear. The calvarium is intact. IMPRESSION: No acute intracranial abnormality.
--- NOTE | 2021-03-16 15:31 | RAD REPORT ---
EXAM DESCRIPTION: RAD - Chest Single View - 03/16/2021 3:25 pm CLINICAL HISTORY: CHEST PAIN Chest pain. COMPARISON: Chest Single View dated 09/19/2020; Chest Single View dated 03/25/2019; Chest Single View dated 02/14/2019; Chest Pa And Lat (2 Views) dated 12/12/2018 FINDINGS: Portable technique limits examination quality. The lungs are grossly clear. The heart is upper limit of normal in size. No displaced fractures. IMPRESSION: No acute intrathoracic process suspected.
[2021-03-16] MEDS ORDERED: MORPHINE 4 MG/ML SYR ONE (15:45)
[2021-03-16] MEDS ORDERED: ONDANSETRON 4 MG/2 ML VIAL ONE (15:45)
[2021-03-16 15:46] LABS: Absolute Lymphocytes (CBC) 2.2 K/uL (0.7-4.9); Hematocrit 35.9 % (36.0-45.0); Lymphocytes % 29.9 % (15.3-44.8); MPV 8.1 fL (7.6-11.3); RBC Red Blood Cell Count 4.18 M/uL (3.86-4.86)
[2021-03-16 15:56] LABS: Protime INR 1.03
[2021-03-16 16:03] LABS: ALT/SGPT 46 U/L (12-78); AST/SGOT 26 U/L (15-37); Albumin 3.6 g/dL (3.4-5.0); Alkaline Phosphatase 132 U/L (45-117); BUN Blood Urea Nitrogen 14 mg/dL (7-18); Bicarbonate 23 mmol/L (21-32); Bilirubin Direct < 0.1 mg/dL (0-0.2); Bilirubin Total 0.3 mg/dL (0.2-1.0); Glucose Level 146 mg/dL (74-106); Magnesium 2.1 mg/dL (1.8-2.4); NT PRO-BNP 51 pg/mL (<125); Potassium 3.8 mmol/L (3.5-5.1); Sodium Level 139 mmol/L (136-145)
--- NOTE | 2021-03-16 17:12 | EDPHYS ---
Physician Documentation [facility] Name: Che Helton Age: 55 yrs Sex: Female : 1965 Arrival Date: 03/16/2021 Time: 14:40 Bed 16 Private MD: ED Physician Wang Olivas HPI: 03/16 17:04 This 55 yrs old Black Female presents to ER via Ambulatory with complaints of Chest ernie Pain, Headache. 17:04 The patient or guardian reports chest pain that is located primarily in the substernal ernie area. Onset: 1 day(s) ago. The pain does not radiate. Associated signs and symptoms: Pertinent positives: dizziness, headache, lightheadedness, nausea. The chest pain is described as a heaviness, a pressure. Duration: The patient or guardian reports a single episode, that is still ongoing, but improving. Modifying factors: The symptoms are alleviated by nothing. the symptoms are aggravated by nothing. Severity of pain: At its worst the pain was moderate in the emergency department the pain has improved mildly. The patient has experienced similar episodes in the past, several times. 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 - Social history:: Smoking status: Patient reports the use of cigarette tobacco products, smokes one-half pack cigarettes per day. - Family history:: not pertinent. ROS: 17:04 Constitutional: Negative for fever, chills, and weight loss, Eyes: Negative for injury, ernie pain, redness, and discharge, ENT: Negative for injury, pain, and discharge, Neck: Negative for injury, pain, and swelling, Respiratory: Negative for shortness of breath, cough, wheezing, and pleuritic chest pain, Abdomen/GI: Negative for abdominal pain, nausea, vomiting, diarrhea, and constipation, Back: Negative for injury and pain, : Negative for injury, bleeding, discharge, and swelling, Skin: Negative for injury, rash, and discoloration, Neuro: Negative for headache, weakness, numbness, tingling, and seizure, Psych: Negative for depression, anxiety, suicide ideation, homicidal ideation, and hallucinations, Allergy/Immunology: Negative for hives, rash, and allergies, Endocrine: Negative for neck swelling, polydipsia, polyuria, polyphagia, and marked weight changes, Hematologic/Lymphatic: Negative for swollen nodes, abnormal bleeding, and unusual bruising. 17:04 Cardiovascular: Positive for chest pain, of the chest. 17:04 MS/extremity: Positive for decreased range of motion, pain, swelling, tenderness, of the anterior aspect of right shoulder and posterior aspect of right shoulder, sp covid vaccine yesterday. Exam: 17:04 Constitutional: This is a well developed, well nourished patient who is awake, alert, ernie and in no acute distress. Head/Face: Normocephalic, atraumatic. Eyes: Pupils equal round and reactive to light, extra-ocular motions intact. Lids and lashes normal. Conjunctiva and sclera are non-icteric and not injected. Cornea within normal limits. Periorbital areas with no swelling, redness, or edema. ENT: Nares patent. No nasal discharge, no septal abnormalities noted. Tympanic membranes are normal and external auditory canals are clear. Oropharynx with no redness, swelling, or masses, exudates, or evidence of obstruction, uvula midline. Mucous membranes moist. Neck: Trachea midline, no thyromegaly or masses palpated, and no cervical lymphadenopathy. Supple, full range of motion without nuchal rigidity, or vertebral point tenderness. No Meningismus. Chest/axilla: Normal chest wall appearance and motion. Nontender with no deformity. No lesions are appreciated. Cardiovascular: Regular rate and rhythm with a normal S1 and S2. No gallops, murmurs, or rubs. Normal PMI, no JVD. No pulse deficits. Respiratory: Lungs have equal breath sounds bilaterally, clear to auscultation and percussion. No rales, rhonchi or wheezes noted. No increased work of breathing, no retractions or nasal flaring. Abdomen/GI: Soft, non-tender, with normal bowel sounds. No distension or tympany. No guarding or rebound. No evidence of tenderness throughout. Back: No spinal tenderness. No costovertebral tenderness. Full range of motion. Female : Normal external genitalia. Skin: Warm, dry with normal turgor. Normal color with no rashes, no lesions, and no evidence of cellulitis. Neuro: Awake and alert, GCS 15, oriented to person, place, time, and situation. Cranial nerves II-XII grossly intact. Motor strength 5/5 in all extremities. Sensory grossly intact. Cerebellar exam normal. Normal gait. Psych: Awake, alert, with orientation to person, place and time. Behavior, mood, and affect are within normal limits. 17:04 Musculoskeletal/extremity: ROM: limited active range of motion due to pain, limited passive range of motion due to pain, in the anterior aspect of right shoulder and posterior aspect of right shoulder, Sensation intact. Compartment Syndrome exam of affected extremity: is normal. DVT Exam: negative Homans' sign noted on exam, no appreciated bluish discoloration, no erythema, no increased warmth, pain, swelling, tenderness. 17:15 ECG was reviewed by the Attending Physician. ernie Vital Signs: 14:51 BP 140 / 75; Pulse 87; Resp 20; Temp 98.8; Pulse Ox 97% on R/A; Weight 110.22 kg; ll1 Height 5 ft. 3 in. (160.02 cm); Pain 10/10; 15:20 BP 155 / 100; Pulse 87; Resp 20 S; Pulse Ox 100% on R/A; jg9 15:30 BP 167 / 93; Pulse 78; Resp 13 S; Pulse Ox 100% on R/A; jg9 16:00 BP 161 / 96; Pulse 80; Resp 22 S; Pulse Ox 98% on R/A; jg9 16:30 BP 160 / 88; Pulse 77; Resp 21 S; Pulse Ox 97% on R/A; jg9 17:00 BP 162 / 80; Pulse 81; Resp 17 S; Pulse Ox 100% on R/A; jg9 17:30 BP 164 / 86; Pulse 82; Resp 19 S; Pulse Ox 100% on R/A; jg9 18:30 BP 143 / 80; Pulse 68; Resp 14 S; Pulse Ox 98% on R/A; jg9 18:45 BP 149 / 70; Pulse 66; Resp 15 S; Pulse Ox 99% on R/A; jg9 14:51 Body Mass Index 43.05 (110.22 kg, 160.02 cm) ll1 NIH Stroke Scale Scores: 17:04 NIHSS Score: 0 ernie MDM: 14:58 Patient medically screened. ernie 17:07 Differential diagnosis: abnormal EKG, acute myocardial infarction, anxiety, chest wall ernie pain, costochondritis, pancreatitis, pneumonia, pneumothorax, pulmonary embolus, stable angina, unstable angina. HEART Score: History: Moderately Suspicious (1), ECG: Non specific repolarization disturbance / LBTB / PM (1), Age: > 45 and < 65 years (1), Risk Factors: > or = 3 Risk factors for atherosclerotic disease (2), [Hypercholesterolemia] [Hypertension] [DM] [+ Family HX] [Obesity] Troponin: < or = 1 x Normal Limit (0), Total Score = 5. The patient was given aspirin in the Emergency Department. The patient's deep vein thrombosis risk score was calculated as follows: Total Score: 0. This patient was found to be at low risk for a deep vein thrombosis by using the Well's assessment criteria. The patient's pulmonary embolism risk score was calculated as follows: Total Score: 0-2 points. This patient was found to be at low risk for a pulmonary embolism by using the Well's assessment criteria. PENNY Risk Score: 1 - Three or more CAD risk factors, 1 - ASA use in past 7 days, 1 - Recent [<24hrs] Severe Angina, TOTAL SCORE = 3. Data reviewed: vital signs, nurses notes, lab test result(s), EKG, radiologic studies, plain films. 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 Test interpretation: by ED physician or midlevel provider: ECG, plain radiologic studies. Counseling: I had a detailed discussion with the patient and/or guardian regarding: the historical points, exam findings, and any diagnostic results supporting the discharge/admit diagnosis, lab results, radiology results, the need for further work-up and treatment in the hospital. 03/16 14:57 Order name: Basic Metabolic Panel; Complete Time: 16:46 ernie 03/16 14:57 Order name: CBC with Diff; Complete Time: 16:46 ernie 03/16 14:57 Order name: LFT's; Complete Time: 16:46 ernie 03/16 14:57 Order name: Magnesium; Complete Time: 16:46 [facility] 03/16 14:57 Order name: NT PRO-BNP; Complete Time: 16:46 [facility] 03/16 14:57 Order name: Troponin HS; Complete Time: 16:46 [facility] 03/16 14:57 Order name: XRAY Chest (1 view); Complete Time: 16:46 [facility] 03/16 14:58 Order name: CT Head Brain wo Cont; Complete Time: 16:46 [facility] 03/16 14:58 Order name: D-Dimer; Complete Time: 16:46 [facility] 03/16 15:51 Order name: Protime (+INR); Complete Time: 16:46 [facility] 03/16 17:04 Order name: SARS-COV-2 RT PCR (Document "Date of Onset" if Symptomatic) [facility] 03/16 14:57 Order name: EKG; Complete Time: 14:57 [facility] 03/16 14:57 Order name: Cardiac monitoring; Complete Time: 15:02 [facility] 03/16 14:57 Order name: EKG - Nurse/Tech; Complete Time: 15:02 [facility] 03/16 14:57 Order name: IV Saline Lock; Complete Time: 15:35 [facility] 03/16 14:57 Order name: Labs collected and sent; Complete Time: 15:35 [facility] 03/16 14:57 Order name: O2 Per Protocol; Complete Time: 19:55 [facility] 03/16 14:57 Order name: O2 Sat Monitoring; Complete Time: 15:02 [facility] EC:15 Rate is 87 beats/min. Rhythm is regular. QRS Jackson is Normal. IN interval is normal. QRS ernie interval is normal. QT interval is prolonged at 519 msec. No Q waves. T waves are Normal. No ST changes noted. Clinical impression: NSR w/ Non-specific ST/T Changes and No evidence of ischemia. Interpreted by me. Reviewed by me. Administered Medications: 15:35 Drug: NS 0.9% 500 ml Route: IV; Rate: bolus; Site: left forearm; jg9 16:10 Follow up: IV Status: Completed infusion; IV Intake: 500ml jg9 15:46 Drug: Zofran (Ondansetron) 4 mg Route: IVP; Site: left forearm; jg9 16:57 Follow up: Response: No adverse reaction jg9 15:48 Drug: morphine 4 mg Route: IVP; Site: left forearm; jg9 16:57 Follow up: Response: No adverse reaction; Pain is decreased jg9 16:10 Drug: NS 0.9% 1000 ml Route: IV; Rate: 125 ml/hr; Site: left forearm; jg9 17:30 Drug: Tylenol 650 mg Route: PO; jg9 18:33 Follow up: Response: No adverse reaction jg9 17:30 Drug: morphine 2 mg Route: IVP; Site: left forearm; jg9 18:33 Follow up: Response: No adverse reaction; Pain is decreased jg9 17:31 Drug: Lovenox (enoxaparin) 100 mg Route: Sub-Q; Site: left lower abdomen; jg9 18:34 Follow up: Response: No adverse reaction jg9 17:32 Drug: Lopressor (metoprolol TARTRATE) 50 mg Route: PO; jg9 18:34 Follow up: Response: Blood pressure is unchanged jg9 17:33 Drug: Aspirin Chewable Tablet 243 mg Route: PO; jg9 18:34 Follow up: Response: No adverse reaction jg9 17:34 Not Given (Patient Refused): Zofran (Ondansetron) 4 mg IVP once; over 2 minutes jg9 17:34 Drug: Pepcid (famotidine) 20 mg Route: IVP; Site: left forearm; jg9 18:32 Follow up: Response: No adverse reaction jg9 18:51 Drug: morphine 2 mg {Note: RASS-0.} Route: IVP; Site: left forearm; jg9 Disposition Summary: 03/16/21 17:11 Hospitalization Ordered Hospitalization Status: Observation ernie Provider: Celestine Donohue cha Location: Telemetry/MedSurg (observation) ernie Condition: Fair ernie Problem: new ernie Symptoms: have improved ernie Bed/Room Type: Standard ernie Room Assignment: 214(03/16/21 20:10) cg Diagnosis - Chest pain, unspecified ernie - Type 2 diabetes mellitus with hyperglycemia ernie - Obesity, unspecified ernie - Abnormal electrocardiogram [ECG] [EKG] ernie - Abnormal levels of other serum enzymes - troponin ernie Forms: - Medication Reconciliation Form ernie - SBAR form ernie NIH Stroke Scale - NIH Stroke Score Date: 03/16/2021 Time: 17:04 Total Score = 0 1a. Level of Consciousness (LOC) - 0(Alert) 1b. Level of Consciousness (LOC) (Month \\T\\ Age) - 0(Both) 1c. LOC Commands (Open \\T\\ Closes Eyes/Transitional Care Liaison) - 0(Both) 2. Best Gaze (Lateral Gaze Paresis) - 0(Normal) 3. Visual Field Loss - 0(No visual loss) 4. Facial Palsy - 0(Normal) 5a. Left Arm: Motor (10-second hold) - 0(No drift) 5b. Right Arm: Motor (10-second hold) - 0(No drift) 6a. Left Leg: Motor (5-second hold - always test supine) - 0(No drift) 6b. Right Leg: Motor (5-second hold - always test supine) - 0(No drift) 7. Limb Ataxia (finger/nose \\T\\ heel/ron - test with eyes open) - 0(Absent) 8. Sensory Loss (pinprick arms/legs/face) - 0(Normal) 9. Best Language: Aphasia (description/naming/reading) - 0(No aphasia) 10. Dysarthria (speech clarity - read or repeat words) - 0(Normal) 11. Extinction and Inattention (visual/tactile/auditory/spatial/personal) - 0(No abnormality) Initials: ernie Signatures: Dispatcher [employer] EDMS Wang Olivas MD MD cha Garcia, Cindy, RN RN cg Jigar Hall RN RN ll1 Hope Meier RN RN jg9 Corrections: (The following items were deleted from the chart) 15:51 14:57 PROTIME (+INR)+COAG.LAB.BRZ ordered. [facility] EDMS 20:10 17:11 [facility]
--- NOTE | 2021-03-16 17:12 | ER ---
Nurse's Notes [facility] Name: Che Helton Age: 55 yrs Sex: Female : 1965 Arrival Date: 03/16/2021 Time: 14:40 Bed 16 Private MD: Diagnosis: Chest pain, unspecified;Type 2 diabetes mellitus with hyperglycemia;Obesity, unspecified;Abnormal electrocardiogram [ECG] [EKG];Abnormal levels of other serum enzymes-troponin Presentation: 03/16 14:51 Chief complaint: Patient states: Got 3rd covid shot to R arm yesterday. Started having ll1 body aches, OLSON, SOB, fatigue, CP, low grade fever last night. Lump noted to R arm where she got her shot. Coronavirus screen: Vaccine status: Patient reports receiving the 2nd dose of the covid vaccine. Client denies travel out of the [place] in the last 14 days. difficulty breathing, fatigue, fever, headache, muscle pain, Client presents with at least one sign or symptom that may indicate coronavirus-19. Standard/surgical mask placed on the client. Ebola Screen: Patient denies travel to an Ebola-affected area in the 21 days before illness onset. Initial Sepsis Screen: Does the patient meet any 2 criteria? No. Patient's initial sepsis screen is negative. Does the patient have a suspected source of infection? Yes: Productive cough/pneumonia. Risk Assessment: Do you want to hurt yourself or someone else? Patient reports no desire to harm self or others. Onset of symptoms was March 15, 2021. 14:51 Method Of Arrival: Ambulatory ll1 14:51 Acuity: NELY 3 ll1 Triage Assessment: 15:25 General: Appears in no apparent distress. Behavior is calm. jg9 15:25 Pain: Complains of pain in chest. 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 - Social history:: Smoking status: Patient reports the use of cigarette tobacco products, smokes one-half pack cigarettes per day. - Family history:: not pertinent. Screenin:37 Abuse screen: Denies threats or abuse. Denies injuries from another. Nutritional jg9 screening: No deficits noted. Tuberculosis screening: No symptoms or risk factors identified. Fall Risk None identified. Assessment: 15:00 Pain: Complains of pain in chest Pain radiates to left arm Pain currently is 8 out of jg9 10 on a pain scale. Pain began during the night pain woke her up. Cardiovascular: Reports chest pain, diaphoresis, shortness of breath. 16:14 Reassessment: Patient reports mild improvement in chest discomfort. jg9 20:42 Reassessment: Attempted to give report, told to call back. ll3 Vital Signs: 14:51 BP 140 / 75; Pulse 87; Resp 20; Temp 98.8; Pulse Ox 97% on R/A; Weight 110.22 kg; ll1 Height 5 ft. 3 in. (160.02 cm); Pain 10/10; 15:20 BP 155 / 100; Pulse 87; Resp 20 S; Pulse Ox 100% on R/A; jg9 15:30 BP 167 / 93; Pulse 78; Resp 13 S; Pulse Ox 100% on R/A; jg9 16:00 BP 161 / 96; Pulse 80; Resp 22 S; Pulse Ox 98% on R/A; jg9 16:30 BP 160 / 88; Pulse 77; Resp 21 S; Pulse Ox 97% on R/A; jg9 17:00 BP 162 / 80; Pulse 81; Resp 17 S; Pulse Ox 100% on R/A; jg9 17:30 BP 164 / 86; Pulse 82; Resp 19 S; Pulse Ox 100% on R/A; jg9 18:30 BP 143 / 80; Pulse 68; Resp 14 S; Pulse Ox 98% on R/A; jg9 18:45 BP 149 / 70; Pulse 66; Resp 15 S; Pulse Ox 99% on R/A; jg9 14:51 Body Mass Index 43.05 (110.22 kg, 160.02 cm) ll1 NIH Stroke Scale Scores: 17:04 NIHSS Score: 0 ernie ED Course: 14:40 Patient arrived in ED. 14:46 Hope Meier, RN is Primary Nurse. jg9 14:51 Arm band placed on Patient placed in an exam room, on a stretcher. ll1 14:53 Triage completed. ll1 14:56 Wang Olivas MD is Attending Physician. ernie 15:08 CT Head Brain wo Cont In Process Unspecified. EDMS 15:25 XRAY Chest (1 view) In Process Unspecified. EDMS 15:30 Patient requests pain medication. jg9 15:30 Inserted saline lock: 22 gauge in left forearm, using aseptic technique. jg9 15:38 Patient has correct armband on for positive identification. conveyor monitor on. jg9 16:14 Resting quietly. jg9 16:14 Patient maintains SpO2 saturation greater than 95% on room air. jg9 16:56 Resting quietly. jg9 16:56 Verbal reassurance given. patient reported some change in pain. jg9 17:10 Celestine Donohue DO is Hospitalizing Provider. ernie 21:19 No provider procedures requiring assistance completed. tk1 21:19 Patient admitted, IV remains in place. No redness/swelling at site. tk1 Administered Medications: 15:35 Drug: NS 0.9% 500 ml Route: IV; Rate: bolus; Site: left forearm; jg9 16:10 Follow up: IV Status: Completed infusion; IV Intake: 500ml jg9 15:46 Drug: Zofran (Ondansetron) 4 mg Route: IVP; Site: left forearm; jg9 16:57 Follow up: Response: No adverse reaction jg9 15:48 Drug: morphine 4 mg Route: IVP; Site: left forearm; jg9 16:57 Follow up: Response: No adverse reaction; Pain is decreased jg9 16:10 Drug: NS 0.9% 1000 ml Route: IV; Rate: 125 ml/hr; Site: left forearm; jg9 17:30 Drug: Tylenol 650 mg Route: PO; jg9 18:33 Follow up: Response: No adverse reaction jg9 17:30 Drug: morphine 2 mg Route: IVP; Site: left forearm; jg9 18:33 Follow up: Response: No adverse reaction; Pain is decreased jg9 17:31 Drug: Lovenox (enoxaparin) 100 mg Route: Sub-Q; Site: left lower abdomen; jg9 18:34 Follow up: Response: No adverse reaction jg9 17:32 Drug: Lopressor (metoprolol TARTRATE) 50 mg Route: PO; jg9 18:34 Follow up: Response: Blood pressure is unchanged jg9 17:33 Drug: Aspirin Chewable Tablet 243 mg Route: PO; jg9 18:34 Follow up: Response: No adverse reaction jg9 17:34 Not Given (Patient Refused): Zofran (Ondansetron) 4 mg IVP once; over 2 minutes jg9 17:34 Drug: Pepcid (famotidine) 20 mg Route: IVP; Site: left forearm; jg9 18:32 Follow up: Response: No adverse reaction jg9 18:51 Drug: morphine 2 mg {Note: RASS-0.} Route: IVP; Site: left forearm; jg9 Intake: 16:10 IV: 500ml; Total: 500ml. jg9 Outcome: 17:11 Decision to Hospitalize by Provider. ernie 21:19 Admitted to Med/surg accompanied by tech, via stretcher, room 214, with chart, Report tk1 called to julien Mendez 21:20 Patient left the ED. tk1 NIH Stroke Scale - NIH Stroke Score Date: 03/16/2021 Time: 17:04 Total Score = 0 1a. Level of Consciousness (LOC) - 0(Alert) 1b. Level of Consciousness (LOC) (Month \T\ Age) - 0(Both) 1c. LOC Commands (Open \T\ Closes Eyes/Apparel Fashion Designer) - 0(Both) 2. Best Gaze (Lateral Gaze Paresis) - 0(Normal) 3. Visual Field Loss - 0(No visual loss) 4. Facial Palsy - 0(Normal) 5a. Left Arm: Motor (10-second hold) - 0(No drift) 5b. Right Arm: Motor (10-second hold) - 0(No drift) 6a. Left Leg: Motor (5-second hold - always test supine) - 0(No drift) 6b. Right Leg: Motor (5-second hold - always test supine) - 0(No drift) 7. Limb Ataxia (finger/nose \T\ heel/ron - test with eyes open) - 0(Absent) 8. Sensory Loss (pinprick arms/legs/face) - 0(Normal) 9. Best Language: Aphasia (description/naming/reading) - 0(No aphasia) 10. Dysarthria (speech clarity - read or repeat words) - 0(Normal) 11. Extinction and Inattention (visual/tactile/auditory/spatial/personal) - 0(No abnormality) Initials: ernie Signatures: Dispatcher [employer] EDWang Xiao MD MD cha Rivera, Christy mr Jigar Hall, RN RN ll1 Itzel Restrepo, JULIEN RN ll3 Hope Meier, RN RN jg9 Rossana Goddard tk1
[2021-03-16] MEDS ORDERED: METOPROLOL TAR 50 MG TAB ONE (17:22)
[2021-03-16] MEDS ORDERED: ACETAMINOPHEN 325 MG TABLET ONE (17:22)
[2021-03-16] MEDS ORDERED: MORPHINE 2 MG/ML SYR ONE ×2 (17:22→18:50)
[2021-03-16] MEDS ORDERED: FAMOTIDINE 20 MG/2 ML VIAL IV ONE (17:23)
[2021-03-16] MEDS ORDERED: ENOXAPARIN 100 MG/ML SYR SQ ONE (17:23)
[2021-03-16] MEDS ORDERED: ASPIRIN 81 MG CHEWABLE TABLET ONE (17:24)
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
[2021-03-16] MEDS ORDERED: TRAMADOL HCL 50 MG TAB PO PRN (21:28)
[2021-03-16] MEDS ORDERED: ATORVASTATIN 40 MG TAB PO SCH (21:28)
[2021-03-16] MEDS ORDERED: LORAZEPAM 0.5 MG TABLET PO PRN (21:28)
[2021-03-16] MEDS: INSULIN -REGULAR HUMAN 50 UNIT/0.5 ML ML SQ SCH (21:28)
[2021-03-16] MEDS ORDERED: ONDANSETRON 4 MG/2 ML VIAL IV PRN (21:28)
[2021-03-16] MEDS ORDERED: ACETAMINOPHEN 500 MG TAB PO PRN (21:28)
[2021-03-16] MEDS ORDERED: HYDROCODONE/APAP 7.5/325 MG TAB PO PRN (21:28)
[2021-03-16] MEDS: METOPROLOL TAR 25 MG TAB PO SCH (21:28)
[2021-03-16 23:09] LABS: CKMB Creatine Kinase MB 1.8 ng/mL (1.0-3.6)
[2021-03-16 23:15] LABS: Troponin High Sensitivity 111.1 pg/mL (<58.9)
[2021-03-17] MEDS ORDERED: MORPHINE 2 MG/ML SYR IV PRN (03:16)
[2021-03-17 04:01] LABS: Absolute Lymphocytes (CBC) 2.6 K/uL (0.7-4.9); Hematocrit 34.2 % (36.0-45.0); Lymphocytes % 42.6 % (15.3-44.8); MPV 8.7 fL (7.6-11.3); RBC Red Blood Cell Count 3.92 M/uL (3.86-4.86)
[2021-03-17 04:24] LABS: CKMB Creatine Kinase MB 2.2 ng/mL (1.0-3.6)
[2021-03-17 04:42] LABS: ALT/SGPT 45 U/L (12-78); AST/SGOT 28 U/L (15-37); Albumin 3.2 g/dL (3.4-5.0); Alkaline Phosphatase 123 U/L (45-117); BUN Blood Urea Nitrogen 15 mg/dL (7-18); Bicarbonate 25 mmol/L (21-32); Bilirubin Total 0.1 mg/dL (0.2-1.0); Glucose Level 136 mg/dL (74-106); HDL Cholesterol 30 mg/dL (40-60); Magnesium 2.1 mg/dL (1.8-2.4); Potassium 4.1 mmol/L (3.5-5.1); Protein, Total 7.5 g/dL (6.4-8.2); Sodium Level 140 mmol/L (136-145)
[2021-03-17 04:56] LABS: LDL, Direct 91 mg/dL (100-129)
--- NOTE | 2021-03-17 06:00 | P.DS ---
Admission Date: 03/16/21 Discharge Date: 03/17/21 Primary Care Provider: Dr. Han Sood cardiology Disposition: ROUTINE DISCHARGE Discharge Condition: GOOD Reason for Admission: Chest pain Consultations: Cardiology-Dr. Brewster Procedures: COVID: negative CXR: COMPARISON: Chest Single View dated 09/19/2020; Chest Single View dated 03/25/2019; Chest Single View dated 02/14/2019; Chest Pa And Lat (2 Views) dated 12/12/2018 FINDINGS: Portable technique limits examination quality. The lungs are grossly clear. The heart is upper limit of normal in size. No displaced fractures. IMPRESSION: No acute intrathoracic process suspected. CT Head: COMPARISON: Ct Stroke Brain Wo Cont dated 12/12/2017; Ct Stroke Brain Wo Cont dated 05/09/2017 TECHNIQUE: All CT scans are performed using dose optimization technique as appropriate and may include automated exposure control or mA/KV adjustment according to patient size. FINDINGS: No intracranial hemorrhage, hydrocephalus or extra-axial fluid collection.No areas of brain edema or evidence of midline shift. The paranasal sinuses and mastoids are clear. The calvarium is intact. IMPRESSION: No acute intracranial abnormality. Medical Problem list: Chest pain Status post COVID-vaccine to the right arm with some induration Diabetes mellitus type 2 [id number] Hypertension Hyperlipidemia BPD History of CVA Brief History of Present Illness: 55-year-old -[place] female with history of diabetes most type II, hypertension, hyperlipidemia, bipolar disorder, previous CVA presents emergency department for chest pain. Patient reports that she received her third COVID booster yesterday to her right arm ever since then has been having headache followed by tightness in the chest radiating to left arm. Patient was evaluated in the emergency department labs were significant for initial high-sensitivity troponin 130.2 glucose 146 COVID-negative chest x-ray unremarkable CT head brain negative. Patient was admitted for further evaluation.. Hospital Course: Patient presented with chest pain. Patient had elevated troponin likely inflammatory and ischemic demand. Patient was monitored overnight. Troponin improved. Case discussed with cardiology. Patient with prior heart catheterization in 2019 which showed normal coronaries. Cardiology reported recent echocardiogram unremarkable. No need for further intervention at this ti me. Patient can be discharged home. At discharge patient will continue with aspirin 81 mg daily, Plavix 75 mg daily, Lipitor 40 mg daily, Norvasc 10 mg daily, and metoprolol 12.5 mg 1 pill twice daily. Recommend follow-up with cardiology in 1 to 2 weeks to follow-up this hospitalization. Patient with hypertension. Blood pressure stable. At discharge she will continue with Norvasc 10 mg daily and metoprolol 12.5 mg 1 pill twice daily. Recommend to maintain blood pressure less than 130/80. Further adjustment may be required if blood pressure remains above 140/90. This can be done with the help of her PCP or cardiology. Patient had Moderna COVID-vaccine shot to the right arm. Some pain and induration noted to the area. Patient may take ibuprofen 400 mg and/or Tylenol up to 3 times a day as needed for pain. Patient may place ice to the area to help with swelling. This can be monitored as an outpatient. Patient with diabetes mellitus type 2. Overall stable. At discharge she will continue with metformin 500 mg 1 pill twice daily. Patient with depression. At discharge we will continue with Cymbalta 30 mg daily and Seroquel 25 mg daily. Patient with hyperlipidemia. At discharge patient will continue with Lipitor 40 mg daily. Vital Signs/Physical Exam: Temp Pulse Resp BP Pulse Ox 97.6 F 77 18 129/60 98 03/17/21 00:00 03/17/21 00:00 03/17/21 05:17 03/17/21 00:00 03/17/21 05:17 General: Alert, In no apparent distress, Oriented x3, Cooperative HEENT: Atraumatic Neck: Supple Respiratory: Clear to auscultation bilaterally, Normal air movement Cardiovascular: Normal pulses, Regular rate/rhythm Gastrointestinal: Normal bowel sounds, No tenderness, No masses, No rebound, No guarding Musculoskeletal: No erythema, No tenderness, No warmth Integumentary: No erythema, No warmth, No cyanosis, Other (Mild tenderness to the area of COVID shot on the right side) Neurological: Normal speech, Normal strength at 5/5 x4 extr, Normal tone, Normal affect Laboratory Data at Discharge: WBC 6.10 K/uL (4.3-10.9) D 03/17/21 03:18 Hgb 11.0 g/dL (12.0-15.0) L 03/17/21 03:18 Hct 34.2 % (36.0-45.0) L 03/17/21 03:18 Plt Count 249 K/uL (152-406) 03/17/21 03:18 PT 11.9 SECONDS (9.5-12.5) 03/16/21 15:30 PT Cancelled 03/16/21 15:30 INR 1.03 03/16/21 15:30 INR Cancelled 03/16/21 15:30 Sodium 140 mmol/L (136-145) 03/17/21 03:18 Potassium 4.1 mmol/L (3.5-5.1) 03/17/21 03:18 BUN 15 mg/dL (7-18) 03/17/21 03:18 Creatinine 1.05 mg/dL (0.55-1.3) 03/17/21 03:18 Glucose 136 mg/dL (74-106) H 03/17/21 03:18 Magnesium 2.1 mg/dL (1.8-2.4) 03/17/21 03:18 Total Bilirubin 0.1 mg/dL (0.2-1.0) L 03/17/21 03:18 AST 28 U/L (15-37) 03/17/21 03:18 ALT 45 U/L (12-78) 03/17/21 03:18 Alkaline Phosphatase 123 U/L (45-117) H 03/17/21 03:18 Triglycerides 411 mg/dL (<150) H 03/17/21 03:18 Cholesterol 165 mg/dL (<200) 03/17/21 03:18 LDL Cholesterol Direct 91 mg/dL (100-129) L 03/17/21 03:18 HDL Cholesterol 30 mg/dL (40-60) L 03/17/21 03:18 Cholesterol/HDL Ratio 5.50 03/17/21 03:18 Home Medications: Aspirin Chewable [Aspirin Chewable*] 81 mg PO DAILY 04/14/18 Clopidogrel Bisulfate [Plavix*] 75 mg PO DAILY 04/14/18 Duloxetine HCl [Cymbalta] 30 mg PO DAILY 04/14/18 Metformin ER [Glucophage ER*] 500 mg PO BID 04/14/18 Multivitamin [Multivitamins] 1 cap PO DAILY 04/14/18 Quetiapine Fumarate [Seroquel] 25 mg PO DAILY 04/14/18 Atorvastatin Calcium 40 mg PO BEDTIME #30 tablet 04/15/18 Metoprolol Tartrate [Lopressor*] 12.5 mg PO BID #30 tab 04/15/18 Amlodipine [Norvasc*] 10 mg PO DAILY #30 tab 03/17/21 New Medications: Amlodipine [Norvasc*] 10 mg PO DAILY #30 tab Physician Discharge Instructions: Patient presented with chest pain. Patient had elevated troponin likely inflammatory and ischemic demand. Patient was monitored overnight. Troponin improved. Case discussed with cardiology. Patient with prior heart catheterization in 2019 which showed normal coronaries. Cardiology reported recent echocardiogram unremarkable. No need for further intervention at this time. Patient can be discharged home. At discharge patient will continue with aspirin 81 mg daily, Plavix 75 mg daily, Lipitor 40 mg daily, Norvasc 10 mg daily, and metoprolol 12.5 mg 1 pill twice daily. Recommend follow-up with cardiology in 1 to 2 weeks to follow-up this hospitalization. Patient with hypertension. Blood pressure stable. At discharge she will continue with Norvasc 10 mg daily and metoprolol 12.5 mg 1 pill twice daily. Recommend to maintain blood pressure less than 130/80. Further adjustment may be required if blood pressure remains above 140/90. This can be done with the help of her PCP or cardiology. Patient had Moderna COVID-vaccine shot to the right arm. Some pain and induration noted to the area. Patient may take ibuprofen 400 mg and/or Tylenol up to 3 times a day as needed for pain. Patient may place ice to the area to help with swelling. This can be monitored as an outpatient. Patient with diabetes mellitus type 2. Overall stable. At discharge she will continue with metformin 500 mg 1 pill twice daily. Patient with depression. At discharge we will continue with Cymbalta 30 mg daily and Seroquel 25 mg daily. Patient with hyperlipidemia. At discharge patient will continue with Lipitor 40 mg daily. Diet: ADA Activity: Ad huber Followup: ARMANDO ROBERTS [Primary Care Provider] - Time spent managing pt's care (in minutes): 55
[2021-03-17] MEDS: INSULIN -REGULAR HUMAN 50 UNIT/0.5 ML ML SQ SCH (07:30)
[2021-03-17] MEDS: METOPROLOL TAR 25 MG TAB PO SCH (07:42)
[2021-03-17] MEDS ORDERED: ENOXAPARIN 40 MG/0.4 ML SQ SCH (09:00)
[2021-03-17] MEDS ORDERED: ASPIRIN EC 81 MG TAB PO SCH (09:00)
[2021-03-17 09:51] VITALS: BP 130/68; TEMP 97.3
[2021-03-17 11:48] VITALS: O2SAT 95
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
--- NOTE | 2021-03-18 15:18 | EKG ---
Test Date: 2021-03-16 Test Time: 15:01:50 [employer] Professor: EVELYN MEASUREMENT RESULTS: Intervals: Rate: 87 GA: 182 QRSD: 98 QT: 432 QTc: 519 [place]: P: 67 GA: 182 QRS: -8 T: 45 INTERPRETIVE STATEMENTS: Sinus rhythm with occasional premature ventricular complexes Right atrial enlargement Voltage criteria for left ventricular hypertrophy T wave abnormality, consider lateral ischemia Prolonged QT Abnormal ECG Compared to ECG 09/19/2020 15:02:00 Ventricular premature complex(es) now present T-wave abnormality now present Possible ischemia now present Sinus tachycardia no longer present Atrial premature complex(es) no longer present Fusion complex(es) no longer present Myocardial infarct finding no longer present Electronically Signed On 03-18-21 15:15:01 MENTAL HEALTH PRACTITIONER by Giovanni Brewster
--- NOTE | 2021-03-20 07:19 | ECHO ---
HEIGHT: 5 ft 3 in WEIGHT: 243 lb 0 oz DATE OF STUDY: 02/14/[address]: Celestine Donohue DO 2-DIMENSIONAL: YES M.MODE: YES DOPPLER: YES COLOR FLOW: YES TDS: PORTABLE: DEFINITY: BUBBLE STUDY: DIAGNOSIS: CHEST PAIN CARDIAC HISTORY: CATHERIZATION: SURGERY: PROSTHETIC VALVE: PACEMAKER: MEASUREMENTS (cm) DIASTOLIC (NORMALS) SYSTOLIC (NORMALS) IVSd 1.4 (0.6-1.2) LA Diam 3.9 (1.9-4.0) LVEF 63% LVIDd 4.3 (3.5-5.7) LVIDs 2.9 (2.0-3.5) %FS 34% LVPWd 1.3 (0.6-1.2) Ao Diam 2.7 (2.0-3.7) 2 DIMENSIONAL ASSESSMENT: RIGHT ATRIUM: NORMAL LEFT ATRIUM: NORMAL RIGHT VENTRICLE: NORMAL LEFT VENTRICLE: LEFT VENTRICULAR HYPERTROPHY TRICUSPID VALVE: NORMAL MITRAL VALVE: NORMAL PULMONIC VALVE: NORMAL AORTIC VALVE: NORMAL PERICARDIAL EFFUSION: NONE AORTIC ROOT: NORMAL LEFT VENTRICULAR WALL MOTION: NORMAL DOPPLER/COLOR FLOW: NORMAL COMMENTS: LEFT VENTRICULAR HYPERTROPHY. NORMAL EJECTION FRACTION. NO WALL MOTION ABNORMALITY. TECHNOLOGIST: JAMIE WHELAN
== END 2021-03-17 11:05 | disposition home or self-care (01) ==
LOC: ER 14:37 → ERHOLD 17:36 → 2ND 20:12
PROVIDERS: ADMIT Family Medicine; ATTEND Family Medicine
DX: R07.9 Chest pain, unspecified (principal); E11.9 Type 2 diabetes mellitus without complications; I10 Essential (primary) hypertension; E78.5 Hyperlipidemia, unspecified; M79.601 Pain in right arm; R23.4 Changes in skin texture; F31.9 Bipolar disorder, unspecified; I69.951 Hemiplegia and hemiparesis following unspecified cerebrovascular disease affecting right dominant side; R51.9 Headache, unspecified; G47.30 Sleep apnea, unspecified; I25.10 Atherosclerotic heart disease of native coronary artery without angina pectoris; I25.2 Old myocardial infarction; F41.8 Other specified anxiety disorders; J44.9 Chronic obstructive pulmonary disease, unspecified; F17.210 Nicotine dependence, cigarettes, uncomplicated; Z71.6 Tobacco abuse counseling; Z79.02 Long term (current) use of antithrombotics/antiplatelets; Z79.82 Long term (current) use of aspirin; Z79.899 Other long term (current) drug therapy; Z88.2 Allergy status to sulfonamides; Z86.711 Personal history of pulmonary embolism; Z89.412 Acquired absence of left great toe; Z98.84 Bariatric surgery status; Z20.822 Contact with and (suspected) exposure to COVID-19; Z82.49 Family history of ischemic heart disease and other diseases of the circulatory system; Z83.3 Family history of diabetes mellitus
CPT/HCPCS: 96361; 93005; 93306; 85025 ×2; 80048; 36415; 83721; 83735 ×2; 82550 ×2; 85610; 80061; 82947 ×2; 85379; 80076; 84443; 83036; 84484 ×2; 82553 ×2; 84439; 80053; 83880; 70450; 71045; 96375; 96372; 96374; 99285; U0003; J1650 ×2; J2270 ×3; J7040; J7030; J2405; G0378

== ENCOUNTER 2021-05-09 20:40 | Emergency (ER) | payer OTHER ==
--- OUTSIDE RECORDS SUMMARY | 2021-05-09 20:46 | XMS REPORT | Continuity of Care Document ---
:1965 Author Organization [facility] t Address [address] [place] [address] Care Team Providers Name Role Phone THOM, Chayito Primary Care Physician Unavailable Jean Burnett Attending Clinician Unavailable CAROLINE Attending Clinician Unavailable Chayito GARCIA Attending Clinician Unavailable Chayito Dickey Attending Clinician Han DOTY Attending Clinician Shanon Fragoso Attending Clinician Jazz DOTY, K Attending Clinician Payers Payer Name Policy Type Policy Number Effective Date Expiration Date Sawyer reynaga [facility] [id number] 2018 00:00:00 PLUS Problems Condition Condition Condition Status Onset Resolution Last Treating Co mments Source Name Details Category Date Date Treatment Clinician Date Knee mass, Knee mass, Disease Active Overview : Univers left left 4-28 Formattin ity of 00:00: g of this [place] 00 note Medical might be Branch different from the original. Added automatic ally from request for surgery [id number] LEN LEN Disease Active Univers (obstructi (obstructi 5-19 it y of ve sleep ve sleep 00:00: [place] apnea) apnea) 00 Medical Branch Essential Essential Disease Active Uni vers hypertensi hypertensi 1-21 it y of on on 00:00: [place] 00 Medical Branch Dyslipidem Dyslipidem Disease Active U nivers ia ia 03-17 ity of 00:00: [place] 00 Medical Branch Coronary-m Coronary-m Disease Active U nivers yocardial yocardial 03-17 ity of bridge bridge 00:00: 00 Medical Branch Type 2 Type 2 Disease Active Univers diabetes diabetes 03-17 ity of mellitus mellitus 00:00: [place] without without 00 Medical complicati complicati Br anch on, on, without without long-term long-term current current use of use of insulin insulin Tobacco Tobacco Disease Active Univers abuse abuse 03-17 ity of 00:00: [place] 00 Medical Branch Morbid Morbid Disease Active 2015-02 Univers obesity obesity 16 ity of with [facility] mass index 00 Me dical of of Branch 40.0-49.9 40.0-49.9 Chest pain Chest pain Disease Active 2015-02 U nivers 15 ity of 00:00: [place] [facility] Aphasia Aphasia Disease Active Univers 08-31 ity of 00:00: [place] 00 Medical Branch Right-side Right-side Disease Active U nivers d muscle d muscle 08-31 ity of weakness weakness 00:00: Medical Branch H/O H/O Disease Active Univers 08-30 ity of section section 00:00: [place] 00 Medical Branch History of History of Disease Active [place]ivers [place] 08-30 ity of (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 Medical infarction infarction Br anch ) ) Metabolic Metabolic Disease Active Uni vers syndrome syndrome 08-30 ity of 00:00: [place] 00 Medical Branch Acute CVA Acute CVA Disease Active Uni vers (cerebrova (cerebrova 08-29 it y of scular scular 00:00: [place] accident) accident) 00 [facility] Branch Allergies, Adverse Reactions, Alerts Allergy Allergy Status Severity Reaction(s) Onset Inactive Treating Comm ents Source Name Type Date Date Clinician Morphine Propensi Active Itching 2015-02 Unive rs ty to 1-15 ity of adverse 00:00: [place] reaction 00 Medical s Branch MORPHINE DRUG Active ITCHING 2015-02 Univers INGREDI 115 ity of 00:00: [place] 00 [facility] Branch SULFA Drug Active Anaphylaxis 2015- Unive rs (SULFONA Class 1-15 ity of MIDE 00:00: [place] ANTIBIOT 00 Medical ICS) Branch Sulfa Propensi Active Anaphylaxis 2015-02 Uni vers (Sulfona ty to 1-15 ity of mide adverse 00:00: [place] Antibiot reaction 00 Medica l ics) s Branch Sulfa Adverse Active Info Not [facility] Reaction Available [facility] Social History Social Habit Start Date Stop Date Quantity Comments Source History of tobacco Cigarette Smoker [facility] Exposure to Not sure University of SARS-CoV-2 (event) [facility] Alcohol intake 2021-04-06 2021-04-06 0 /d University of 00:00:00 00:00:00 [facility] Branch History SDOH 2019-12-09 2019-12-09 5 University o f Financial 00:00:00 00:00:00 [place] [facility] History SDMD Food 2019-12-09 2019-12-09 1 Univers ity of Worry 00:00:00 00:00:00 [place] [facility] History SDOH Food 2019-12-09 2019-12-09 1 Univers ity of Scarcity 00:00:00 00:00:00 [place] [facility] History SDOH 2019-12-09 2019-12-09 2 University o f Transport Med 00:00:00 00:00:00 [facility] Branch History SDOH 2019-12-09 2019-12-09 2 University o f Transport Non-Med 00:00:00 00:00:[address] [facility] [place] Branch Cigarettes smoked 2016-01-10 2016-01-10 Univers ity of current (pack per 00:00:00 00:00:[address] [facility]) - Reported Branch Cigarette 2016-01-10 2016-01-10 University of pack-years 00:00:00 00:00:00 [facility] Tobacco use and 2016-01-10 2016-01-10 Never used Universit y of exposure 00:00:00 00:00:00 [facility] Sex Ass[birth year] Universit y of 00:00:00 00:00:00 [facility] Smoking Status Start Date Stop Date Source Current every day smoker 2016-01-10 00:00:00 Uni versity of [place] [facility] Medications Ordered Filled Start Stop Current Ordering Indication Dosage Frequency Signature Comments Components Source Medication Medication Date Date Medication? Clinician (SIG) Name Name atorvastati 2021- No 40mg Take 40 mg Univers n (LIPITOR) 2-10 -10 by mouth ity of 40 mg 14:41: 00:00 at [place] tablet 54 :00 bedtime. Medical Branch QUEtiapine 2021- No 50mg Take 50 mg Univers (SEROQUEL) 2-10 10 by mouth ity of 50 mg 14:04: 00:00 daily. [place] tablet 31 :00 Medical Branch oxcarbazepi 2021- No Take by U nivers ne -10 -10 mouth. ity of (TRILEPTAL 14:04: 00:00 [place] ORAL) 31 :00 Medical Branch metFORMIN Yes [id number] 1000mg Take 1 Univers 1,000 mg 2-10 tablet by ity of tablet 00:00: mouth 2 [place] 00 (two) Medical times Branch daily with meals. atorvastati Yes [id number] 40mg Take 1 Univers n (LIPITOR) 2-10 tablet by ity of 40 mg 00:00: mouth at [place] tablet 00 bedtime. Medical Branch OXcarbazepi Yes Univer s ne 300 mg 2-07 ity of tablet 00:00: [place] 00 Medical Branch QUEtiapine 0 Yes Univers 200 mg 2-07 ity of tablet 00:00: [place] 00 Medical Branch Diclofenac Yes APPLY Univer s Sodium 1 % 1-25 TOPICALLY ity of gel 00:00: TO THE [place] 00 AFFECTED Medical AREA FOUR Branch TIMES DAILY FOR 25 DAYS HYDROcodone Yes 1{tbl} Take 1 Un ines -acetaminop 1-25 tablet by ity of hen 7.5-325 00:00: mouth 2 [place] as mg per 00 (two) Medical tablet times Branch daily. amLODIPine Yes TAKE 1 Unive rs 10 mg 1-21 TABLET BY ity of tablet 00:00: MOUTH [place] 00 DAILY FOR Medical HYPERTENSI Branch ON cyclobenzap 2020-02 Yes TAKE 1 Univ ers rine 10 mg 1-30 TABLET BY ity of tablet 00:00: MOUTH [place] 00 TWICE Medical DAILY FOR Branch 14 DAYS triamcinolo 2020-02 Yes [id number] Apply to Univers ne 0-14 area(s) 2 ity of acetonide 00:00: (two) [place] 0.1 % cream 00 times Medical daily. Branch triamterene 2020-02 Yes [id number] 1{capsu Take 1 Univers -hydrochlor 0-12 le} capsule by it y of othiazide 00:00: mouth [place] 37.5-25 mg 00 every Medical per capsule morning. [facility] aspirin 81 Yes 81mg Take 81 mg U nivers mg chewable 928 by mouth ity of tablet 16:55: daily. [address] DULoxetine Yes 30mg Take 30 mg U nivers (CYMBALTA) 9 by mouth ity o f 30 mg 16:55: daily. [address] amitriptyli Yes 25mg Take 25 mg Univers ne 25 mg 11-22 by mouth ity of tablet 16:55: at bedtime [place] [id number] as needed Medical for Branch Insomnia. DULoxetine Yes 60mg Take 60 mg U nivers (CYMBALTA) 9 by mouth ity o f 60 mg 16:55: daily. [address] Branch metFORMIN 2021- No [id number] 1000mg Take 1 Univers 1,000 mg 9-03 02-10 tablet by ity o f tablet 00:00: 00:00 mouth 2 [place] 00 :00 (two) Medical times Branch daily with meals. diltiazem Yes [id number] 360mg Take 1 U nivers 360 mg 24 3-03 capsule by ity of hr capsule 00:00: mouth [place] 00 daily. Medical Branch nitroglycer 2019-[id number] 1 Univers in 0.4 mg 0-27 tablet ity of sublingual 00:00: [place] 00 tongue Medical every 5 Branch (five) minutes as needed for Chest pain. pantoprazol 2019-02 Yes [id number] 40mg Take 1 Univers e 40 mg EC 0-27 tablet by ity of tablet 00:00: mouth [place] 00 daily. Medical Branch gabapentin 2015-02 Yes 300mg Take 1 Univ ers (NEURONTIN) 1-17 capsule by it y of 300 mg 00:00: mouth 3 [place] capsule 00 (three) Medical times Branch daily. Metformin Metformin Yes [place] 1 tablet [facility] Linzess Jeanniezess Yes [place] [address] [facility] Immunizations Ordered Filled Immunization Date Status Comments [facility] e Immunization Name Name Influenza Virus 2021-04-06 Completed Universit y of Vaccine Quad IM, 00:00:00 [facility] dical Preserv and ABX Branch Free 6 MO-64 YRS SARS-COV-2 COVID-19 2021-03-15 Completed Unive rsity of MODERNA VACCINE 00:00:00 [facility] SARS-COV-2 COVID-19 2020-09-07 Completed Unive rsity of MODERNA VACCINE 00:00:00 [facility] SARS-COV-2 COVID-19 2020-08-08 Completed Unive rsity of MODERNA VACCINE 00:00:00 [facility] Flucelvax - Flucelvax - 2019-04-[address] [facility] - multidose vial multidose vial 00:00:00 [facility] Vital Signs Vital Name Observation Time Observation Value Comments Source Systolic blood 2021-04-06 20:11:00 141 mm[Hg] Univer sity of pressure [facility] Diastolic blood 2021-04-06 20:11:00 71 mm[Hg] Unive rsity of pressure [facility] Heart rate 2021-04-06 20:10:00 81 /min [facility] Body temperature 2021-04-06 20:10:00 36.89 [facility] Body height 2021-04-06 20:10:00 160 cm [facility] Body weight 2021-04-06 20:10:00 124.921 kg [facility] BMI 2021-04-06 20:10:00 48.78 kg/m2 [facility] Oxygen saturation in 2021-04-06 20:10:00 99 /min University Arterial blood by [facility] Pulse oximetry Branch Procedures Procedure Date / Time Performed Performing Clinician Lizandro e FLU VACC ([id number]), 2021-04-06 20:43:21 Lacie Garcia [facility] 2-64 YRS, .5ML, IM, Medical Bran ch QUAD (FLUCELVAX) Encounters Start End Encounter Admission Attending Care Care Encounter Source Date/Time Date/Time Type Type Clinicians Facility Department ID 2021-03-22 [facility] 12:[facility] [place] [address] [facility] 2021-03-22 [facility] 12:34:26 [place] [address] [facility] 2021-03-22 [facility] 12:07:[facility] [place] [address] [facility] 2021-03-22 [facility] [id number] 11:56:38 [place] [address] [facility] 2021-03-22 [facility] 11:36:33 [place] [address] [facility] 2021-03-22 [facility] [id number] 11:21:57 [place] [address] [facility] 2021-03-22 [facility] [id number] 11:08:32 [place] [address] [facility] 2021-03-22 [facility], [facility] [id number] 11:07:34 [place] [address] [facility] 2021-03-22 [facility], [facility] [id number] 11:05:30 [place] [address] [facility] 2021-03-22 Outpatient Burnett, [facility]LMLC [facility] [id number] 11:04:[facility] [address] [facility]pat[facility] Clinics 2021-05-04 2021-05-04 Outpatient Shanon VELAZQUEZ [facility] [id number] Univers 10:30:00 10:30:00 [place] [id number] [facility] 2021-05-04 2021-05-04 Outpatient Shanon VELAZQUEZ [facility] [id number] Univers 10:30:00 10:30:00 [place] [facility] 2021-05-03 2021-05-03 Outpatient Shanon VELAZQUEZ [facility] [id number] Univers 13:00:00 13:00:00 [place] [id number] [facility] 2021-05-03 2021-05-03 Outpatient Shanon VELAZQUEZ [facility] [id number] Univers 13:00:00 13:00:00 SPRING [facility] 2021-04-28 2021-04-28 Outpatient Shanon GARCIA [facility] [id number] Univers 13:00:00 13:00:00 LACIE [id number] [facility] 2021-04-28 2021-04-28 Outpatient Shanon GARCIA [facility] [id number] Univers 13:00:00 13:00:00 LACIE [facility] 2021-04-27 2021-04-27 Outpatient Shanon GARCIA [facility] [id number] Univers 14:30:00 15:19:29 LACIE [facility] 2021-04-27 2021-04-27 Outpatient Shanon GARCIA [facility] [id number] Univers 14:00:00 14:00:00 LACIE [id number] [facility] 2021-04-26 2021-04-26 Outpatient Shanon GARCIA [facility] [id number] Univers 12:30:00 12:30:00 LACIE [id number] [facility] 2021-04-26 2021-04-26 Outpatient Shanon GARCIA [facility] [id number] Univers 12:30:00 12:30:00 LACIE [facility] 2021-04-06 2021-04-[address] [facility] [id number] Univers 14:00:00 15:51:55 Visit Lacie RODRIGUEZ [id number] [place] [id number] [place] as DINORAH?BLEA [id number] [facility] [address] MEDICAL OFFICE BUILDING 2021-04-06 2021-04-06 [facility] [id number] Univers 14:00:00 15:51:55 LACIE ho [facility] 2020-09-12 2020-09-12 Telephone [facility] [id number] 00:00:00 00:00:00 Cristina Guevara [id number] [place] [id number] [facility] [id number] [facility] 2020-08-01 2020-08-01 Emergency [facility] [id number] 16:53:00 20:11:00 Cassandra Guevara [id number] [place] [id number] [place] [id number] 2020-08-01 2020-08-01 Telephone Jazz [place] [id number] 00:00:00 00:00:00 [employer] HE[facility] [id number] [facility] [id number] 2020-07-20 2020-07-20 Telemedici Jazz [facility] [id number] 12:21:31 12:36:31 ne Visit Rapportv[employer] [address] [employer] HEALTH [id number] [facility] [id number] 2020-05-19 2020-05-19 [address] [facility] [id number] [facility]00 Wei Oliavres ent Clinics 2020-05-11 2020-05-[address] [facility] [id number] [facility] 2020-05-10 2020-05-10 Outpatient [facility] [id number] [facility] 2020-05-09 2020-05-09 Outpatient [facility] [id number] [facility] 2020-05-02 2020-05-02 Outpatient [facility] [id number] [facility] 2020-03-31 2020-03-31 Outpatient [facility] [id number] [facility] 2020-03-21 2020-03-21 Outpatient [facility] [id number] [facility] 2020-03-21 2020-03-21 Outpatient [facility] [id number] [facility] 2020-02-01 2020-02-01 Outpatient [facility] [id number] [facility] 2020-01-29 2020-01-29 Outpatient [facility] [id number] [facility] 2020-01-27 2020-01-27 Outpatient [facility] [id number] [facility] 2020-01-26 2020-01-26 Outpatient [facility] [id number] [facility] 2020-01-07 2020-01-07 Outpatient [facility] [id number] [facility] 2020-01-06 2020-01-06 [facility] [id number] [facility] 2019-12-17 2019-12-[address] [facility] [id number] [facility] 00[facility]00 [facility] 2019-12-14 2019-12-14 [facility] [id number] [facility] 00:[facility]00 [facility] 2019-07-15 2019-07-15 [facility] [id number] 13:15:00 13:15:00 t [employer] [facility] 2019-05-11 2019-05-11 [facility] [id number] 15:30:00 15:30:00 t Bone [facility] 2019-05-04 2019-05-04 [facility] [id number] 09:30:00 09:30:00 t [facility] 2019-04-27 2019-04-27 [facility] [id number] 15:30:00 15:30:00 t Bone [facility] 2019-04-16 2019-04-16 [facility] [id number] 13:00:00 13:00:00 t [employer] [facility] 2019-04-08 2019-04-08 [facility] [id number] 16:19:00 16:19:00 t Bone [facility] 2019-04-07 2019-04-07 [facility] [id number] 08:00:00 08:00:00 t Bone [facility] 2019-04-02 2019-04-02 [facility] [id number] 11:30:00 11:30:[address] [facility] 2019-03-31 2019-03-31 [facility] [id number] 16:13:00 16:13:00 t Bone [facility] 2019-03-26 2019-03-26 [facility] [id number] 13:16:00 13:16:[address] [facility] 2019-03-26 2019-03-26 [facility] [id number] 12:59:00 12:59:00 t Bone [facility] and [facility] 2019-03-05 2019-03-05 [facility] [id number] 08:38:00 08:38:00 t Bone [facility] and [facility] 2019-03-04 2019-03-04 [facility] [id number] 09:30:00 09:30:00 t Bone [facility] 2019-03-03 2019-03-03 [facility] [id number] 16:25:00 16:25:00 t Bone [facility] and [facility] 2019-02-26 2019-02-26 [facility] [id number] 09:10:00 09:10:00 t Bone Bone and [facility] 2019-02-13 2019-02-13 [facility] [id number] 13:36:00 13:36:00 t Panther [employer] [facility] 2019-02-11 2019-02-11 [facility] [id number] 11:21:00 11:21:00 t Bone [facility] 2019-02-09 2019-02-09 [facility] [id number] 14:30:00 14:30:00 t Bone [facility] and [facility] 2019-02-05 2019-02-05 [facility] [id number] 13:45:00 13:45:00 t [employer] [facility] ent [facility] 2019-01-28 2019-01-28 [facility] [id number] 07:54:00 07:54:00 t Bone [facility] and [facility] 2019-01-26 2019-01-26 [facility] [id number] 15:10:00 15:10:00 t [employer] [facility] ent Clinics 2019-01-21 2019-01-21 [facility] [id number] 13:00:00 13:00:00 t [employer] [facility] ent Clinics 2018-02-03 2018-02-03 [facility] [id number] 16:06:00 16:06:00 t [employer] [facility] ent Clinics Results This patient has no known results.
--- NOTE | 2021-05-09 21:32 | RAD REPORT ---
EXAM DESCRIPTION: CT - Head Brain Wo Cont - 05/09/2021 9:20 pm CLINICAL HISTORY: DIZZINESS Headache, drowsiness COMPARISON: Head Brain Wo Cont dated 03/16/2021; Ct Stroke Brain Wo Cont dated 12/12/2017 TECHNIQUE: All CT scans are performed using dose optimization technique as appropriate and may inclu de automated exposure control or mA/KV adjustment according to patient size. FINDINGS: No intracranial hemorrhage, hydrocephalus or extra-axial fluid collection.No areas of brai n edema or evidence of midline shift. The paranasal sinuses and mastoids are clear. The calvarium is intact. IMPRESSION: No acute intracranial abnormality.
--- NOTE | 2021-05-09 22:03 | RAD REPORT ---
EXAM DESCRIPTION: RAD - Chest Single View - 05/09/2021 9:41 pm CLINICAL HISTORY: CHEST PAIN Chest pain. COMPARISON: Chest Single View dated 03/16/2021; Chest Single View dated 09/19/2020; Chest Single View dated 03/25/2019; Chest Single View dated 02/14/2019 FINDINGS: Portable technique limits examination quality. The lungs are grossly clear. The heart is mildly enlarged in size. No displaced fractures. IMPRESSION: No acute intrathoracic process suspected.
--- NOTE | 2021-05-09 22:03 | RAD REPORT ---
EXAM DESCRIPTION: RAD - Sacrum And Coccyx - 05/09/2021 9:41 pm CLINICAL HISTORY: PAIN COMPARISON: Lumbar Spine 3 Views dated 01/29/2018; Lumbar Spine 3 Views dated 06/26/2016; Lumbar Spine 3 Views dated 06/27/2015; Lumbar Spine 3 Views dated 06/06/2015 FINDINGS: No acute fracture is suspected.
[2021-05-09] MEDS ORDERED: MORPHINE 4 MG/ML SYR ONE (22:12)
[2021-05-09] MEDS ORDERED: ONDANSETRON 4 MG/2 ML VIAL ONE (22:12)
[2021-05-09] MEDS ORDERED: MECLIZINE HCL 12.5 MG TAB ONE (22:12)
[2021-05-09 22:13] LABS: Absolute Lymphocytes (CBC) 2.9 K/uL (0.7-4.9); Hematocrit 36.6 % (36.0-45.0); Lymphocytes % 27.5 % (15.3-44.8); RBC Red Blood Cell Count 4.27 M/uL (3.86-4.86)
[2021-05-09 22:19] LABS: Protime INR 1.03
[2021-05-09 22:36] LABS: ALT/SGPT 41 U/L (12-78); AST/SGOT 26 U/L (15-37); Albumin 3.8 g/dL (3.4-5.0); Alkaline Phosphatase 129 U/L (45-117); BUN Blood Urea Nitrogen 19 mg/dL (7-18); Bicarbonate 23 mmol/L (21-32); Bilirubin Direct < 0.1 mg/dL (0-0.2); Bilirubin Total 0.2 mg/dL (0.2-1.0); Glucose Level 104 mg/dL (74-106); Magnesium 2.3 mg/dL (1.8-2.4); NT PRO-BNP 89 pg/mL (<125); Potassium 4.1 mmol/L (3.5-5.1); Protein, Total 8.4 g/dL (6.4-8.2); Sodium Level 141 mmol/L (136-145)
[2021-05-09] MEDS ORDERED: ASPIRIN 81 MG CHEWABLE TABLET ONE (23:36)
--- NOTE | 2021-05-09 23:51 | EDPHYS ---
Physician Documentation [facility] Name: Che Helton Age: 55 yrs Sex: Female : 1965 Arrival Date: 05/09/2021 Time: 20:43 Bed 16 Private MD: ED Physician Tonny Ronquillo HPI: 05/09 21:05 This 55 yrs old Black Female presents to ER via Wheelchair with complaints of Numbness cp Of Hand, Fall Injury, Chest Pain, Dizziness. 21:05 The patient or guardian reports chest pain that is located primarily in the substernal cp area. 21:05 Onset: 2 hour(s) ago. The pain does not radiate. Associated signs and symptoms: cp Pertinent positives: dizziness, headache, shortness of breath, Pertinent negatives: abdominal pain, cough, diaphoresis, lower extremity pain, lower extremity swelling, syncope. 21:05 The chest pain is described as a heaviness. Duration: The patient or guardian reports a cp single episode, that is still ongoing, and unchanged. 21:05 Patient reports episode of dizziness that caused her to fall and land onto buttocks. cp Patient c/o pain to coccyx area. 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/A - unknown sm5 Historical: - Allergies: 05/09 20:53 PENICILLINS; ab2 20:53 Sulfa (Sulfonamide Antibiotics); ab2 - Home Meds: 22:04 amlodipine 25 mg tab 1 tab once daily [Active]; aspirin 81 mg Oral chew 1 tab once sm5 daily [Active]; atorvastatin Oral nightly [Active]; Cymbalta 30mg in the morning, 60mg at night Oral [Active]; metformin 500 mg Oral tab 1 tab 2 times per day [Active]; metoprolol tartrate 25 mg Oral tab 1 tab once daily [Active]; multivitamin with minerals Oral daily [Active]; Nitrostat 0.4 mg SL subl 1 tab every 5 minutes [Active]; [place] Oral as needed [Active]; Plavix 75 mg Oral tab 1 tab once daily [Active]; Seroquel 25 mg Oral tab 1 tab nightly [Active]; - PMHx: 20:53 ADD/ADHD; stroke; Myocardial infarction; Hypertension; Hyperlipidemia; Diabetes - ab2 NIDDM; Depression; Bipolar disorder; Anxiety; - PSHx: 20:53 gastric sleeve; knee sx; section; ab2 - Immunization history:: Adult Immunizations up to date. - Social history:: Smoking status: Patient reports the use of cigarette tobacco products, denies chronic smoking, but will smoke occasionally. ROS: 21:10 Constitutional: Negative for body aches, chills, fever, poor PO intake. cp 21:10 Eyes: Negative for injury, pain, redness, and discharge. cp 21:10 Neck: Negative for pain with movement, pain at rest, stiffness. 21:10 Cardiovascular: Positive for chest pain, Negative for edema, palpitations. 21:10 Respiratory: Positive for shortness of breath, at rest. Negative for cough, wheezing. 21:10 Abdomen/GI: Negative for abdominal pain, nausea, vomiting, and diarrhea. 21:10 Back: Negative for pain at rest, pain with movement. 21:10 : Negative for urinary symptoms. 21:10 Neuro: Positive for dizziness, headache, Negative for altered mental status, loss of consciousness, syncope, weakness. 21:10 All other systems are negative. Exam: 21:10 ECG was reviewed by the Attending Physician. cp 21:15 Constitutional: The patient appears in no acute distress, alert, awake, cp non-diaphoretic, non-toxic, well developed, well nourished, obese, uncomfortable. 21:15 Head/Face: Normocephalic, atraumatic. cp 21:15 Eyes: Periorbital structures: appear normal, Conjunctiva: normal, no exudate, no injection, Sclera: no appreciated abnormality, Lids and lashes: appear normal, bilaterally. 21:15 ENT: External ear(s): are unremarkable, Nose: is normal, Mouth: Lips: moist, Oral mucosa: moist, Posterior pharynx: Airway: no evidence of obstruction, patent. 21:15 Neck: ROM/movement: is normal, is supple, without pain, no range of motions limitations. 21:15 Chest/axilla: Inspection: normal. 21:15 Cardiovascular: Rate: normal, Rhythm: regular, Edema: is not appreciated, JVD: is not appreciated. 21:15 Respiratory: the patient does not display signs of respiratory distress, Respirations: normal, no use of accessory muscles, no retractions, labored breathing, is not present, Breath sounds: are clear throughout, no decreased breath sounds, no stridor, no wheezing. 21:15 Abdomen/GI: Inspection: abdomen appears normal, Palpation: abdomen is soft and non-tender, in all quadrants. 21:15 Back: vertebral tenderness, is appreciated at sacrum and coccyx. 21:15 Neuro: Orientation: to person, place \\T\\ time. Mentation: is normal, Cerebellar function: is grossly normal, Motor: moves all fours, strength is normal, Sensation: is normal. Vital Signs: 20:50 BP 134 / 64; Pulse 90; Resp 16; Temp 98.1(TE); Pulse Ox 100% on R/A; Weight 121.56 kg; ab2 Height 5 ft. 3 in. (160.02 cm); Pain 9/10; 22:28 BP 118 / 61; Pulse 81; Resp 18 S; Pulse Ox 94% on R/A; as6 05/10 00:04 BP 149 / 97; Pulse 85; Resp 18; Pulse Ox 99% on R/A; sm5 05/09 20:50 Body Mass Index 47.47 (121.56 kg, 160.02 cm) ab2 MDM: 05/09 21:05 Patient medically screened. cp 22:00 Differential diagnosis: acute myocardial infarction, pericarditis, pleurisy, pneumonia, cp pneumothorax, pulmonary embolus, stable angina, unstable angina. 05/10 00:12 The patient was given aspirin in the Emergency Department. cp 00:12 Data reviewed: vital signs, nurses notes, lab test result(s), EKG, radiologic studies, cp plain films. Test interpretation: by ED physician or midlevel provider: ECG, plain radiologic studies. Counseling: I had a detailed discussion with the patient and/or guardian regarding: the historical points, exam findings, and any diagnostic results supporting the discharge/admit diagnosis, lab results, radiology results, recommendation to admit for observation due to elevated troponin and symptom of chest pain. Discussed risks of without further evaluation. 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 Response to treatment: Pain improved with meds. 05/09 21:03 Order name: Basic Metabolic Panel cp 05/09 21: Order name: CBC with Diff; Complete Time: 23:29 cp 05/09 21:03 Order name: LFT's; Complete Time: 23:29 cp 05/09 23:29 Interpretation: Normal except: ALK 129; TP 8.4; GLOB 4.6; A/G 0.8. cp 05/09 21:03 Order name: Magnesium; Complete Time: 23:29 cp 05/09 21:03 Order name: NT PRO-BNP; Complete Time: 23:29 cp 05/09 21:03 Order name: PT-INR; Complete Time: 23:29 cp 05/09 21:03 Order name: Troponin HS; Complete Time: 22:43 cp 05/09 23:30 Interpretation: Abnormal: Troponin HS 140.60. cp 05/09 21:03 Order name: XRAY Chest (1 view); Complete Time: 23:29 cp 05/09 21:03 Order name: XRAY Sacrum And Coccyx; Complete Time: 23:29 cp 05/09 21:03 Order name: CT Head Brain wo Cont; Complete Time: 23:29 cp 05/09 21:04 Order name: Basic Metabolic Panel; Complete Time: 23:29 EDMS 05/09 23:29 Interpretation: Normal except: CL 113; BUN 19; GFR 55. cp 05/09 23:45 Order name: COVID-19/FLU A+B (Document "Date of Onset" if Symptomatic) sm5 05/09 23:48 Order name: COVID-19/FLU A+B EDMS 05/09 21:03 Order name: EKG; Complete Time: 21:04 cp 05/09 21:03 Order name: Cardiac monitoring; Complete Time: 21:06 cp 05/09 21:03 Order name: EKG - Nurse/Tech; Complete Time: 21:06 cp 05/09 21:03 Order name: IV Saline Lock; Complete Time: 22:15 cp 05/09 21:03 Order name: Labs collected and sent; Complete Time: 22:15 cp 05/09 21:03 Order name: O2 Per Protocol; Complete Time: 21:06 cp 05/09 21:03 Order name: O2 Sat Monitoring; Complete Time: 21:06 cp EC/15 21:10 Rate is 84 beats/min. Rhythm is regular. TN interval is normal. QRS interval is normal. cp QT interval is prolonged at 416 msec. T waves are Inverted in leads I, aVL, aVR. Interpreted by me. Reviewed by me. Administered Medications: 22:16 Drug: Meclizine 25 mg Route: PO; 5 22:16 Drug: Zofran (Ondansetron) 4 mg Route: IVP; Site: right hand; sm5 22:16 Drug: morphine 4 mg Route: IVP; Site: right hand; sm5 23:35 Drug: Aspirin Chewable Tablet 324 mg Route: PO; 5 Disposition: 05/10 01:08 Co-signature as Attending Physician, Tonny Ronquillo MD. [facility] Disposition Summary: 05/10/21 00:15 Left Against Medical Advice Location: Home(05/10/21 00:15) cp Problem: new(05/10/21 00:15) cp Symptoms: have improved(05/10/21 00:15) cp Condition: Stable(05/10/21 00:15) cp Diagnosis - Angina pectoris, unspecified(05/10/21 00:15) cp - Fall on same level, unspecified(05/10/21 00:15) cp - Dizziness and giddiness(05/10/21 00:15) cp Followup: cp - With: Private Physician - When: Today - Reason: Recheck today's complaints Signatures: Dispatcher [employer] EDMS Cristian Ratliff, CLAYTONC IT PORTFOLIO MANAGER-Cla1 Wang Blackmon PA PA cp Tonny Ronquillo MD MD [facility] Sherin Salcedo RN RN 5 Doyle Aldridge2 Corrections: (The following items were deleted from the chart) 05/09 23:51 23:50 Cristian Ratliff cp la1 05/10 00:05/09 23:50 Observation cp cp 05/10 00:05/09 23:50 Telemetry/MedSurg (observation) cp cp 05/10 00:11 05/09 23:50 Stable cp cp 05/10 00:05/09 23:50 new cp cp 05/10 00:05/09 23:50 have improved cp cp 05/10 00:11 05/09 23:50 Standard cp cp 05/10 00:11 05/09 23:50 cp cp 05/10 00:11 05/09 23:50 Angina pectoris, unspecified cp cp 05/10 00:11 05/09 23:50 Fall on same level, unspecified cp cp 05/10 00:11 05/09 23:50 Dizziness and giddiness cp cp 05/10 00:11 05/09 23:51 SamanthasoniaderrickPrince laMilan cp 05/10 18:19 05/09 21:05 Associated signs and symptoms: Pertinent positives: dizziness, Pertinent cp negatives: abdominal pain, cough, diaphoresis, lower extremity pain, lower extremity swelling, shortness of breath, syncope, cp
--- NOTE | 2021-05-09 23:51 | ER ---
Nurse's Notes [facility] Name: Che Helton Age: 55 yrs Sex: Female : 1965 Arrival Date: 05/09/2021 Time: 20:43 Bed 16 Private MD: Diagnosis: Angina pectoris, unspecified;Fall on same level, unspecified;Dizziness and giddiness Presentation: 05/09 20:50 Chief complaint: Patient states: "I have had a headache and chest pain for a few hours ab2 and I fell about 45 minutes ago because I got dizzy and I think I broke my butt." Pt c/o chest pain, SOB and coccyx pain. Pt denies hitting head when falling or LOC. Coronavirus screen: Vaccine status: Patient reports receiving the 2nd dose of the covid vaccine. Client denies travel out of the [place] in the last 14 days. At this time, the client does not indicate any symptoms associated with coronavirus-19. Ebola Screen: Patient negative for fever greater than or equal to 101.5 degrees Fahrenheit, and additional compatible Ebola Virus Disease symptoms Patient denies exposure to infectious person. Patient denies travel to an Ebola-affected area in the 21 days before illness onset. No symptoms or risks identified at this time. Initial Sepsis Screen: Does the patient meet any 2 criteria? No. Patient's initial sepsis screen is negative. Does the patient have a suspected source of infection? No. Patient's initial sepsis screen is negative. Risk Assessment: Do you want to hurt yourself or someone else? Patient reports no desire to harm self or others. Onset of symptoms is unknown. 20:50 Method Of Arrival: Wheelchair ab2 20:50 Acuity: NELY 3 ab2 Triage Assessment: 20:54 General: Appears in no apparent distress. comfortable, Behavior is calm, cooperative, ab2 appropriate for age. Pain: Complains of pain in head and chest. Neuro: Reports dizziness, headache. Cardiovascular: Reports chest pain, shortness of breath. Injury Description: Pt fell onto coccyx. 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 N/A - unknown sm5 Historical: - Allergies: 05/09 20:53 PENICILLINS; ab2 20:53 Sulfa (Sulfonamide Antibiotics); ab2 - Home Meds: 22:04 amlodipine 25 mg tab 1 tab once daily [Active]; aspirin 81 mg Oral chew 1 tab once sm5 daily [Active]; atorvastatin Oral nightly [Active]; Cymbalta 30mg in the morning, 60mg at night Oral [Active]; metformin 500 mg Oral tab 1 tab 2 times per day [Active]; metoprolol tartrate 25 mg Oral tab 1 tab once daily [Active]; multivitamin with minerals Oral daily [Active]; Nitrostat 0.4 mg SL subl 1 tab every 5 minutes [Active]; [place] Oral as needed [Active]; Plavix 75 mg Oral tab 1 tab once daily [Active]; Seroquel 25 mg Oral tab 1 tab nightly [Active]; - PMHx: 20:53 ADD/ADHD; stroke; Myocardial infarction; Hypertension; Hyperlipidemia; Diabetes - ab2 NIDDM; Depression; Bipolar disorder; Anxiety; - PSHx: 20:53 gastric sleeve; knee sx; section; ab2 - Immunization history:: Adult Immunizations up to date. - Social history:: Smoking status: Patient reports the use of cigarette tobacco products, denies chronic smoking, but will smoke occasionally. Screenin:03 Abuse screen: Denies threats or abuse. Denies injuries from another. Nutritional sm5 screening: No deficits noted. Tuberculosis screening: No symptoms or risk factors identified. Fall Risk Fall in past 12 months (25 points). No secondary diagnosis (0 pts). IV access (20 points). Ambulatory Aid- None/Bed Rest/Nurse Assist (0 pts). Gait- Normal/Bed Rest/Wheelchair (0 pts) Mental Status- Oriented to own ability (0 pts). Total Faulkner Fall Scale indicates High Risk Score (45 or more points). Fall prevention measures have been instituted. Side Rails Up X 2 Placed Close to Nursing Station Frequent Obs/Assessments Occuring. Assessment: 22:50 General: Appears in no apparent distress. Behavior is cooperative, appropriate for age. sm5 Pain: Complains of pain in chest and head. Neuro: Level of Consciousness is awake, alert, obeys commands, Oriented to person, place, time, situation, Reports dizziness, headache. Cardiovascular: Reports chest pain, Capillary refill < 3 seconds Patient's skin is warm and dry. Rhythm is regular. Respiratory: No deficits noted. Airway is patent Trachea midline Respiratory effort is even, unlabored. Musculoskeletal: Reports pain in sacrum. 05/10 00:15 Reassessment: pt stating she does not want to be admitted to the hospital and will call [facility] her dr in the morning. DANA Aburto made aware. AMA paperwork signed, IV removed. pt instructed to return back to the emergency room if she has continuing symptoms. Vital Signs: 05/09 20:50 BP 134 / 64; Pulse 90; Resp 16; Temp 98.1(TE); Pulse Ox 100% on R/A; Weight 121.56 kg; ab2 Height 5 ft. 3 in. (160.02 cm); Pain 9/10; 22:28 BP 118 / 61; Pulse 81; Resp 18 S; Pulse Ox 94% on R/A; as6 05/10 00:04 BP 149 / 97; Pulse 85; Resp 18; Pulse Ox 99% on R/A; sm5 05/09 20:50 Body Mass Index 47.47 (121.56 kg, 160.02 cm) ab2 ED Course: 05/09 20:43 Patient arrived in ED. kc5 20:53 Triage completed. ab2 20:55 Sherin Salcedo, JULIEN is Primary Nurse. sm5 20:55 Arm band placed on right wrist. ab2 20:56 Wang Blackmon PA is PHCP. cp 20:56 Tonny Ronquillo MD is Attending Physician. cp 21:20 CT Head Brain wo Cont In Process Unspecified. EDMS 21:22 Missed attempt(s): 22 gauge in left hand. Bleeding controlled, band aid applied, sm5 catheter tip intact. 21:41 XRAY Chest (1 view) In Process Unspecified. EDMS 21:41 XRAY Sacrum And Coccyx In Process Unspecified. EDMS 22:03 Patient has correct armband on for positive identification. Placed in gown. Bed in low sm5 position. Call light in reach. Side rails up X2. 22:03 Inserted saline lock: 22 gauge in right hand, using aseptic technique. Blood collected. sm5 22:15 Troponin HS Sent. sm5 22:15 PT-INR Sent. sm5 22:15 NT PRO-BNP Sent. sm5 22:15 Magnesium Sent. sm5 22:15 LFT's Sent. sm5 22:15 CBC with Diff Sent. sm5 22:15 Basic Metabolic Panel Sent. sm5 22:16 Basic Metabolic Panel Sent. sm5 23:49 Cristian Ratliff is Hospitalizing Provider. cp 23:51 Prince Matthews MD is Hospitalizing Provider. la1 23:56 COVID-19/FLU A+B (Document "Date of Onset" if Symptomatic) Sent. sm5 23:56 COVID-19/FLU A+B Sent. sm5 05/10 00:17 No provider procedures requiring assistance completed. IV discontinued, intact, sm5 bleeding controlled, No redness/swelling at site. Pressure dressing applied. Administered Medications: 05/09 22:16 Drug: Meclizine 25 mg Route: PO; sm5 22:16 Drug: Zofran (Ondansetron) 4 mg Route: IVP; Site: right hand; sm5 22:16 Drug: morphine 4 mg Route: IVP; Site: right hand; sm5 23:35 Drug: Aspirin Chewable Tablet 324 mg Route: PO; 5 Outcome: 23:50 Decision to Hospitalize by Provider. cp 05/10 00:17 AMA AMA form signed 5 Condition: stable Instructed on need to return to emergency department if she has continuing symptoms 00:18 Patient left the ED. 5 Signatures: Dispatcher [employer] EDMS Cristian Ratliff, SPRAY DRIER OPERATOR-C SPRAY DRIER OPERATOR-Cla1 Wang Blackmon PA PA cp Slawson, Ashby, RN RN as6 Ai Phillips kc5 Sherin Salcedo RN RN sm5 Doyle Aldridge ab2 Corrections: (The following items were deleted from the chart) 05/09 20:55 20:50 Chief complaint: Patient states: "I have had a headache and chest pain for a few ab2 hours and I fell about 45 minutes ago because I got dizzy and I think I broke my butt." Pt c/o chest pain, SOB and coccyx pain. ab2
[2021-05-10 00:33] VITALS: BP 149/97; O2SAT 99
[2021-05-10 00:38] VITALS: TEMP 98.1
[2021-05-10 01:02] LABS: SARS-COV-2 RT PCR NEGATIVE (NEGATIVE)
--- NOTE | 2021-05-10 07:23 | EKG ---
Test Date: 2021-05-09 Test Time: 21:04:41 Cl[place] In: MEASUREMENT RESULTS: Intervals: Rate: 84 WA: 168 QRSD: 94 QT: 416 QTc: 491 [place]: P: 71 WA: 168 QRS: 17 T: 52 INTERPRETIVE STATEMENTS: Sinus rhythm with occasional premature ventricular complexes Right atrial enlargement Voltage criteria for left ventricular hypertrophy Prolonged QT Abnormal ECG Compared to ECG 03/16/2021 15:01:50 T-wave abnormality no longer present Possible ischemia no longer present Electronically Signed On 05-10-21 07:21:58 CDT by Giovanni Brewster
== END 2021-05-10 00:18 | disposition left against medical advice (07) ==
LOC: ER 20:40
DX: R20.0 Anesthesia of skin (principal); R42 Dizziness and giddiness; I20.8 Other forms of angina pectoris; W18.30XA Fall on same level, unspecified, initial encounter; Z88.1 Allergy status to other antibiotic agents; Z88.0 Allergy status to penicillin; F17.210 Nicotine dependence, cigarettes, uncomplicated
CPT/HCPCS: 0240U; 36415; 70450; 71045; 72220; 80048; 80076; 83735; 83880; 84484; 85025; 85610; 93005; 96374; 96375; 99284; J2405; J8597

== ENCOUNTER 2021-05-10 10:28 | Inpatient (IN) | payer OTHER ==
--- OUTSIDE RECORDS SUMMARY | 2021-05-10 10:32 | XMS REPORT | Continuity of Care Document ---
:1965 Author Organization [facility] t Address [address] [place] [address] Care Team Providers Name Role Phone THOM, Chayito Primary Care Physician Unavailable Jean Burnett Attending Clinician Unavailable CAROLINE Attending Clinician Unavailable Chayito GARCIA Attending Clinician Unavailable Chayito Dickey Attending Clinician Han DOTY Attending Clinician Shanon Fragoso Attending Clinician Jazz DOTY, K Attending Clinician Payers Payer Name Policy Type Policy Number Effective Date Expiration Date Sawyer reynaga [facility] [id number] 2018 00:00:00 PLUS Problems Condition Condition Condition Status Onset Resolution Last Treating Co mments Source Name Details Category Date Date Treatment Clinician Date Knee mass, Knee mass, Disease Active Overview : Univers left left 4-28 Formattin ity of 00:00: g of this [place] 00 note Medical might be Branch different from the original. Added automatic ally from request for surgery [id number] LEN LEN Disease Active Univers (obstructi (obstructi 5-19 it y of ve sleep ve sleep 00:00: [place] apnea) apnea) 00 Medical Branch Essential Essential Disease Active Uni vers hypertensi hypertensi 1-21 it y of on on 00:00: [place] 00 Medical Branch Dyslipidem Dyslipidem Disease Active [...] ity of with body with [facility] mass index mass index 00 Me [...] of History of Disease Active U nivers SC SC 08-30 ity of (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 00 Medical infarction infarction Br anch ) ) Metabolic Metabolic Disease Active Uni vers syndrome syndrome 08-30 ity of 00:00: [place] 00 Medical Branch Acute CVA Acute CVA Disease Active Uni vers (cerebrova (cerebrova 08-29 it y of scular scular 00:00: [place] accident) accident) 00 [facility] Branch Allergies, Adverse Reactions, Alerts Allergy Allergy Status Severity Reaction(s) Onset Inactive Treating Comm ents Source Name Type Date Date Clinician Morphine Propensi Active Itching 2015-02 Unive rs ty to 1-15 ity of adverse 00:00: [place] reaction 00 Medical s Branch MORPHINE DRUG Active ITCHING 2015-02 Univers INGREDI 115 ity of 00:00: [place] 00 [facility] Branch SULFA Drug Active Anaphylaxis 2015- Unive [...] History of tobacco Cigarette Smoker [facility] Exposure to Not sure University of SARS-CoV-2 (event) [facility] Alcohol intake 2021-04-06 2021-04-06 0 /d University of 00:00:00 00:00:00 [facility] Branch History SDOH 2019-12-09 2019-12-09 5 University o f Financial 00:00:00 00:00:00 [place] [facility] History SDAL Food 2019-12-09 2019-12-09 1 Univers ity of Worry 00:00:00 00:00:00 [place] [facility] History SDOH Food 2019-12-09 2019-12-09 1 Univers ity of Scarcity 00:00:00 00:00:00 [place] [facility] History SDOH 2019-12-09 2019-12-09 2 University o f Transport Med 00:00:00 00:00:00 [facility] Branch History SDOH 2019-12-09 2019-12-09 2 University o f Transport Non-Med 00:00:00 00:00:00 [facility] Branch Cigarettes smoked 2016-01-10 2016-01-10 Univers ity of current (pack per 00:00:00 00:00:00 [facility]) - Reported Branch Cigarette 2016-01-10 2016-01-10 University of pack-years 00:00:00 00:00:00 [facility] Tobacco use and 2016-01-10 2016-01-10 Never used Universit y of exposure 00:00:00 00:00:00 [facility] Sex [birth year] Universit y of 00:00:00 00:00:00 [facility] Smoking Status Start Date Stop [...] ORAL) 31 :00 Medical Branch metFORMIN Yes [id number] 1000mg Take 1 Univers 1,000 mg 2-10 tablet by ity of tablet 00:00: mouth 2 [place] 00 (two) Medical times Branch daily with meals. atorvastati Yes [id number] 40mg Take 1 Univers n (LIPITOR) 2-10 tablet by ity of 40 mg 00:00: mouth at [place] tablet 00 bedtime. Medical Branch OXcarbazepi Yes Univer s ne 300 mg 2-07 ity of tablet 00:00: [place] 00 Medical Branch QUEtiapine 0 Yes Univers 200 mg 2-07 ity of tablet 00:00: [place] 00 Medical Branch Diclofenac Yes APPLY Univer s Sodium 1 % 1-25 TOPICALLY ity of gel 00:00: TO THE [place] 00 AFFECTED Medical AREA FOUR Branch TIMES [...] TABLET BY ity of tablet 00:00: MOUTH [place] 00 TWICE Medical DAILY FOR Branch 14 DAYS triamcinolo 2020-02 Yes [id number] Apply to Univers ne 0-14 area(s) 2 ity of acetonide 00:00: (two) [place] 0.1 % cream 00 times Medical daily. Branch triamterene 2020-02 Yes [id number] 1{capsu Take 1 Univers -hydrochlor 0-12 le} capsule by it y of othiazide 00:00: mouth [place] 37.5-25 mg 00 every Medical per capsule morning. [facility] aspirin 81 Yes 81mg Take 81 mg U nivers mg chewable 928 by mouth ity of tablet 16:55: daily. [address] DULoxetine Yes 30mg Take 30 mg U nivers (CYMBALTA) 9 by mouth ity o f 30 mg 16:55: daily. [address] amitriptyli Yes 25mg Take 25 mg Univers ne 25 mg 11-22 by mouth ity of tablet 16:55: at bedtime [place] [id number] as needed Medical for Branch Insomnia. DULoxetine Yes 60mg Take 60 mg U nivers (CYMBALTA) 9 by mouth ity o f 60 mg 16:55: daily. [address] Branch metFORMIN 2021- No [id number] 1000mg Take 1 Univers 1,000 mg 9-03 02-10 tablet by ity o f tablet 00:00: 00:00 mouth 2 [place] 00 :00 (two) Medical times Branch daily with meals. diltiazem Yes [id number] 360mg Take 1 U nivers 360 mg 24 3-03 capsule by ity of hr capsule 00:00: mouth [place] 00 daily. Medical Branch nitroglycer 2019-[id number] 1 Univers in 0.4 mg 0-27 tablet ity of sublingual 00:00: [place] the [place] tablet 00 tongue Medical every 5 Branch (five) minutes as needed for Chest pain. pantoprazol 2019-02 Yes [id number] 40mg Take 1 Univers e 40 mg [...] Filled Immunization Date Status Comments [facility] e Immunization Name Name Influenza Virus 2021-04-06 Completed Universit y of Vaccine Quad IM, 00:00:00 [facility] dical Preserv and ABX Branch Free 6 MO-64 YRS SARS-COV-2 COVID-19 2021-03-15 Completed Unive rsity of MODERNA VACCINE 00:00:00 [facility] SARS-COV-2 COVID-19 2020-09-07 Completed Unive rsity of MODERNA VACCINE 00:00:00 [facility] SARS-COV-2 COVID-19 2020-08-08 Completed Unive rsity of MODERNA VACCINE 00:00:00 [facility] Flucelvax - Flucelvax - 2019-04-[address] [facility] - multidose vial multidose vial 00:00:00 [facility] Vital Signs Vital Name Observation Time Observation Value Comments Source Systolic blood 2021-04-06 20:11:00 141 mm[Hg] Univer sity of pressure [facility] Diastolic blood 2021-04-06 20:11:00 71 mm[Hg] Unive rsity of pressure [facility] Heart rate 2021-04-06 20:10:00 81 /min [facility] Body temperature 2021-04-06 20:10:00 36.89 Crystal [facility] height 2021-04-06 20:10:00 160 cm [facility] Body weight 2021-04-06 20:10:00 124.921 kg [facility] BMI 2021-04-06 20:10:00 48.78 kg/m2 [facility] Oxygen saturation in 2021-04-06 20:10:00 99 /min University Arterial blood by [facility] Pulse oximetry Branch Procedures Procedure Date / Time Performed Performing Clinician Lizandro e FLU VACC ([id number]), 2021-04-06 20:43:21 Lacie Garcia [facility] 2-64 YRS, .5ML, IM, Medical Bran ch QUAD (FLUCELVAX) Encounters Start End Encounter Admission Attending Care Care Encounter Source Date/Time Date/Time Type Type Clinicians Facility Department ID 2021-03-22 Out[facility] Burn[facility], [facility] 12:[facility] [place] [address] [facility] 2021-03-22 [facility] Burn[facility], [facility] 12[facility]34:26 [place] [address] [facility] 2021-03-22 [facility] 12:07:40 [place] [address] [facility] 2021-03-22 Out[facility] Burn[facility], [facility] [id number] [facility] 11:56:38 [place] [address] [facility] 2021-03-22 Out[facility] Burn[facility], [facility] 11:36:33 [place] [address] [facility] 2021-03-22 Out[facility] Burn[facility], [facility] [id number] 11:21:57 [place] [address] [facility] 2021-03-22 Out[facility] Burn[facility], [facility] [id number] 11:08:32 [place] [address] [facility] 2021-03-22 Out[facility] Burnett, [facility] [id number] 11:07:34 [place] [address] [facility] 2021-03-22 Outpatient Burnett, [facility] [id number] 11:05:30 [place] [address] [facility] 2021-03-22 Outpatient Burnett, [facility] [id number] 11:04:39 [facility] [address] [facility] 2021-05-04 2021-05-04 Outpatient Shanon VELAZQUEZ [facility] [id number] Univers 10:30:00 10:30:00 [place] [id number] [facility] 2021-05-04 2021-05-04 Outpatient Shanon VELAZQUEZ [facility] [id number] Univers 10:30:00 10:30:00 [facility] 2021-05-03 2021-05-03 Outpatient Shanon VELAZQUEZ [facility] [id number] Univers 13:00:00 13:00:00 [place] [id number] [facility] 2021-05-03 2021-05-03 Outpatient Shanon VELAZQUEZ [facility] [id number] Univers 13:00:00 13:00:00 [facility] 2021-04-28 2021-04-28 Outpatient Shanon GARCIA [facility] [id number] Univers 13:00:00 13:00:00 LACIE [id number] [facility] 2021-04-28 2021-04-28 Outpatient Shanon GARCIA [facility] [id number] Univers 13:00:00 13:00:00 LACIE [facility] 2021-04-27 2021-04-27 Outpatient Shanon GARCIA [facility] [id number] Univers 14:30:00 15:19:29 LACIE [facility] 2021-04-27 2021-04-27 Outpatient Shanon GARCIA [facility] [id number] Univers 14:00:00 14:00:00 LACIE [id number] [facility] 2021-04-26 2021-04-26 Outpatient Shanon GARCIA [facility] [id number] Univers 12:30:00 12:30:00 LACIE [id number] [facility] 2021-04-26 2021-04-26 Outpatient Shanon GARCIA [facility] [id number] Univers 12:30:00 12:30:00 LACIE [facility] 2021-04-06 2021-04-06 [email or web address] [id number] Univers 14:00:00 15:51:55 Visit Lacie RODRIGUEZ [id number] [place] [id number] Emmanuel as DINORAH?BLEA [id number] [facility] [address] MEDICAL OFFICE BUILDING 2021-04-06 2021-04-06 [facility] [id number] Univers 14:00:00 15:51:55 LACIE ho [facility] 2020-09-12 2020-09-12 Telephone [facility] [id number] 00:00:00 00:00:00 Cristina Guevara [id number] [place] [id number] [facility] [id number] [facility] 2020-08-01 2020-08-01 Emergency [facility] [id number] 16:53:00 20:11:00 Cassandra Guevara [id number] [place] [id number] [place] [id number] 2020-08-01 2020-08-01 Telephone Jazz [place] [id number] 00:00:00 00:00:00 [employer] HEALTH [id number] [facility] [id number] 2020-07-20 2020-07-[address] [facility] [id number] 12:21:31 12:36:31 ne [facility] HE[facility] [id number] [facility] [id number] 2020-05-19 2020-05-19 [facility] [id number]00 Wei Olivares [facility] Clinics 2020-05-11 2020-05-11 [facility] [id number] [facility] 2020-05-10 2020-05-10 Outpatient [facility] [id number] [facility] 2020-05-09 2020-05-09 Outpatient [facility] [id number] [facility] 2020-05-02 2020-05-02 Outpatient [facility] [id number] [facility] 2020-03-31 2020-03-31 Outpatient [facility] [id number] [facility] 2020-03-21 2020-03-21 Outpatient [facility] [id number] [facility] 2020-03-21 2020-03-21 Outpatient [facility] [id number] [facility] 2020-02-01 2020-02-01 Outpatient [facility] [id number] [facility] 2020-01-29 2020-01-29 Outpatient [facility] [id number] [facility] 2020-01-27 2020-01-27 Outpatient [facility] [id number] [facility] 2020-01-26 2020-01-26 Outpatient [facility] [id number] [facility] 2020-01-07 2020-01-07 Outpatient [facility] [id number] [facility] 2020-01-06 2020-01-06 Out[facility] [id number] 2019-12-17 2019-12-17 [facility] [id number] [facility]00 [facility] 2019-12-14 2019-12-14 [facility] [id number] [facility] 00[facility]00 [facility] 2019-07-15 2019-07-15 [facility] [id number] 13:15:00 13:15:[address] [facility] 2019-05-11 2019-05-11 [facility] [id number] 15:30:00 15:30:00 [facility] [place] 2019-05-04 2019-05-04 [facility] [id number] 09:30:00 09:30:00 t [facility] 2019-04-27 2019-04-27 [facility] [id number] 15:30:00 15:30:00 t [facility] [place] 2019-04-16 2019-04-16 [facility] [id number] 13:00:00 13:00:[address] [facility] 2019-04-08 2019-04-08 [facility] [id number] 16:19:00 16:19:00 t [facility] 2019-04-07 2019-04-07 [facility] [id number] 08:00:00 08:00:00 t [facility] [place] 2019-04-02 2019-04-02 [facility] [id number] 11:30:00 11:30:00 t [employer] 2019-03-31 2019-03-31 [facility] [id number] 16:13:00 16:13:00 t [facility] 2019-03-26 2019-03-26 [facility] [id number] 13:16:00 13:16:00 t [employer] [facility] 2019-03-26 2019-03-26 [facility] [id number] 12:59:00 12:59:00 t [facility] 2019-03-05 2019-03-05 [facility] [id number] 08:38:00 08:38:00 t [facility] 2019-03-04 2019-03-04 [facility] [id number] 09:30:00 09:30:00 t [facility] 2019-03-03 2019-03-03 [facility] [id number] 16:25:00 16:25:00 t [facility] 2019-02-26 2019-02-26 [facility] [id number] 09:10:00 09:10:00 t [facility] 2019-02-13 2019-02-13 [facility] [id number] 13:36:00 13:36:00 t [place] [facility] 2019-02-11 2019-02-11 [facility] [id number] 11:21:00 11:21:00 t Bone [facility] [place] 2019-02-09 2019-02-09 [facility] [id number] 14:30:00 14:30:00 t Bone [facility] [place] 2019-02-05 2019-02-05 [facility] [id number] 13:45:00 13:45:00 t jigl s [employer] [facility] 2019-01-28 2019-01-28 [facility] [id number] 07:54:00 07:54:00 t [facility] [place] 2019-01-26 2019-01-26 [facility] [id number] 15:10:00 15:10:00 t jigl s [employer] [facility] Clinics 2019-01-21 2019-01-21 [facility] [id number] 13:00:00 13:00:00 t jigl s [employer] [facility] ent Clinics 2018-02-03 2018-02-03 [facility] [id number] 16:06:00 16:06:00 t [employer] [facility] ent Clinics Results This patient has no known results.
[2021-05-10] MEDS ORDERED: ASPIRIN 81 MG CHEWABLE TABLET ONE (10:50)
[2021-05-10 10:57] LABS: Absolute Lymphocytes (CBC) 2.6 K/uL (0.7-4.9); Hematocrit 35.7 % (36.0-45.0); Lymphocytes % 28.2 % (15.3-44.8); MPV 8.1 fL (7.6-11.3)
[2021-05-10] MEDS ORDERED: MORPHINE 2 MG/ML SYR ONE (11:23)
[2021-05-10 12:04] LABS: Potassium 4.3 mmol/L (3.5-5.1)
[2021-05-10 12:05] LABS: Troponin High Sensitivity 131.2 pg/mL (<58.9)
--- NOTE | 2021-05-10 12:29 | ER ---
Nurse's Notes [facility] Name: Che Helton Age: 55 yrs Sex: Female : 1965 Arrival Date: 05/10/2021 Time: 10:31 Bed 6 Private MD: Diagnosis: Chest pain, unspecified;Elevated troponin;Obesity due to excess calories;Diabetes;History of HTN;History of HLD Presentation: 05/10 10:40 Chief complaint: Patient states: "Chest pain that started yesterday". Coronavirus ag7 screen: Client denies travel out of the [place] in the last 14 days. At this time, the client does not indicate any symptoms associated with coronavirus-19. Ebola Screen: No symptoms or risks identified at this time. Initial Sepsis Screen: Does the patient meet any 2 criteria? No. Patient's initial sepsis screen is negative. Does the patient have a suspected source of infection? No. Patient's initial sepsis screen is negative. Risk Assessment: Do you want to hurt yourself or someone else? Patient reports no desire to harm self or others. Onset of symptoms was May 09, 2021. 10:40 Method Of Arrival: Ambulatory ag7 10:40 Acuity: NELY 3 ag7 Historical: - Allergies: 10:42 PENICILLINS; ag7 10:42 Sulfa (Sulfonamide Antibiotics); ag7 - Home Meds: 10:42 amlodipine 25 mg tab 1 tab once daily [Active]; aspirin 81 mg Oral chew 1 tab once ag7 daily [Active]; atorvastatin Oral nightly [Active]; Cymbalta 30mg in the morning, 60mg at night Oral [Active]; metformin 500 mg Oral tab 1 tab 2 times per day [Active]; metoprolol tartrate 25 mg Oral tab 1 tab once daily [Active]; multivitamin with minerals Oral daily [Active]; Nitrostat 0.4 mg SL subl 1 tab every 5 minutes [Active]; [place] Oral as needed [Active]; Plavix 75 mg Oral tab 1 tab once daily [Active]; Seroquel 25 mg Oral tab 1 tab nightly [Active]; - PMHx: 10:42 ADD/ADHD; Anxiety; Bipolar disorder; Depression; Diabetes - NIDDM; Hyperlipidemia; ag7 Hypertension; Myocardial infarction; stroke; - PSHx: 10:42 section; gastric sleeve; knee sx; ag7 - Immunization history:: Adult Immunizations up to date, Client reports receiving the 2nd dose of the Covid vaccine, Flu vaccine is up to date. - Social history:: Smoking status: Patient reports the use of cigarette tobacco products, denies chronic smoking, but will smoke occasionally. Screenin:40 Abuse screen: Denies threats or abuse. Nutritional screening: No deficits noted. tw2 Tuberculosis screening: No symptoms or risk factors identified. Fall Risk None identified. Assessment: 11:54 Reassessment: Patient appears in no apparent distress at this time. Patient and/or tw2 family updated on plan of care and expected duration. Pain level reassessed. Patient is alert, oriented x 3, equal unlabored respirations, skin warm/dry/pink. 12:33 Reassessment: Patient and/or family updated on plan of care and expected duration. Pain ap3 level reassessed. Patient is alert, oriented x 3, equal unlabored respirations, skin warm/dry/pink. 14:10 Reassessment: Patient and/or family updated on plan of care and expected duration. Pain ap3 level reassessed. Patient is alert, oriented x 3, equal unlabored respirations, skin warm/dry/pink. 14:28 Reassessment: attempted report to the receiving unit. Receiving nurse will return call [facility] for report. Vital Signs: 10:40 BP 135 / 51; Pulse 72; Resp 20 S; Temp 97.7; Pulse Ox 94% on R/A; Weight 121.56 kg; ag7 Height 5 ft. 3 in. (160.02 cm); Pain 10/10; 10:55 BP 135 / 51; Pulse 66; Pulse Ox 96% on R/A; ap3 11:53 BP 112 / 64; Pulse 66; Resp 20; Pulse Ox 97% on R/A; tw2 12:33 BP 104 / 69; Pulse 75; Pulse Ox 95% on R/A; ap3 14:10 BP 132 / 46; Pulse 70; Pulse Ox 97% on R/A; ap3 10:40 Body Mass Index 47.47 (121.56 kg, 160.02 cm) ag7 ED Course: 10:31 Patient arrived in ED. ds1 10:36 Redd Hathaway DO is Attending Physician. ms3 10:38 Prokisch, Katey, RN is Primary Nurse. ap3 10:40 Bed in low position. thinner sprayer on. Pulse ox on. NIBP on. tw2 10:42 Triage completed. ag7 10:44 Arm band placed on right wrist. ag7 10:49 Patient maintains SpO2 saturation greater than 95% on room air. tw2 12:27 Prince Matthews MD is Hospitalizing Provider. ms3 14:38 Report given to jeff. ap3 Administered Medications: 10:49 Drug: Aspirin Chewable Tablet 324 mg Route: PO; tw2 12:34 Follow up: Response: No adverse reaction ap3 11:23 Drug: morphine 2 mg Route: IVP; Site: right hand; ap3 12:34 Follow up: Response: No adverse reaction; Pain is decreased ap3 Outcome: 12:28 Decision to Hospitalize by Provider. ms3 15:15 Patient left the ED. aa5 Signatures: Maddison De La Garza ds1 Samantha Guerra RN RN aa5 Adamaris Escamilla RN RN tw2 Katey Chiang RN RN ap3 Redd Hathaway DO DO ms3 Tessa Mcgee, JULIEN RN ag7 Corrections: (The following items were deleted from the chart) 10:44 10:40 BP 135 / 51; Pulse 72bpm; Pulse Ox 94% RA; Temp 97.7F; 121.56 kg; Height 5 ft. 3 ag7 in.; BMI: 47.4; Pain 10/10; ag7 14:30 12:28 Reassessment: attempted report to the receiving unit. Receiving nurse will return ap3 call for report. ap3
--- NOTE | 2021-05-10 12:29 | EDPHYS ---
Physician Documentation [facility] Name: Che Helton Age: 55 yrs Sex: Female : 1965 Arrival Date: 05/10/2021 Time: 10:31 Bed 6 Private MD: ED Physician Redd Hathaway HPI: 05/10 10:42 This 55 yrs old Black Female presents to ER via Ambulatory with complaints of Chest ms3 Pain. 10:42 The patient or guardian reports chest pain that is located primarily in the substernal ms3 area. Onset: 1 day(s) ago. The pain does not radiate. Associated signs and symptoms: Pertinent positives: diaphoresis, nausea. The chest pain is described as tight. Modifying factors: The symptoms are alleviated by nothing. the symptoms are aggravated by nothing. 55-year-old female with past medical history of stroke, ADD, anxiety, bipolar, depression, diabetes, hypertension, hyperlipidemia presents for chest pain has been ongoing since yesterday. Patient was seen in the emergency department last night and observation was recommended and of the emergency department. Patient states her pain is currently 10/10 described as being tight. Patient denies alleviating or inciting factors. Patient endorses nausea, shortness of breath, diaphoresis.. Historical: - Allergies: 10:42 PENICILLINS; ag7 10:42 Sulfa (Sulfonamide Antibiotics); ag7 - Home Meds: 10:42 amlodipine 25 mg tab 1 tab once daily [Active]; aspirin 81 mg Oral chew 1 tab once ag7 daily [Active]; atorvastatin Oral nightly [Active]; Cymbalta 30mg in the morning, 60mg at night Oral [Active]; metformin 500 mg Oral tab 1 tab 2 times per day [Active]; metoprolol tartrate 25 mg Oral tab 1 tab once daily [Active]; multivitamin with minerals Oral daily [Active]; Nitrostat 0.4 mg SL subl 1 tab every 5 minutes [Active]; Pierce Oral as needed [Active]; Plavix 75 mg Oral tab 1 tab once daily [Active]; Seroquel 25 mg Oral tab 1 tab nightly [Active]; - PMHx: 10:42 ADD/ADHD; Anxiety; Bipolar disorder; Depression; Diabetes - NIDDM; Hyperlipidemia; ag7 Hypertension; Myocardial infarction; stroke; - PSHx: 10:42 section; gastric sleeve; knee sx; ag7 - Immunization history:: Adult Immunizations up to date, Client reports receiving the 2nd dose of the Covid vaccine, Flu vaccine is up to date. - Social history:: Smoking status: Patient reports the use of cigarette tobacco products, denies chronic smoking, but will smoke occasionally. ROS: 10:42 Constitutional: Negative for fever, and chills. Eyes: Negative for injury, pain, ms3 redness, and discharge, Neck: Negative for injury, pain, and swelling, Respiratory: Negative for shortness of breath, cough, wheezing, and pleuritic chest pain, Abdomen/GI: Negative for abdominal pain, nausea, vomiting, diarrhea, and constipation, Back: Negative for injury and pain, MS/Extremity: Negative for injury and deformity, Skin: Negative for injury, rash, and discoloration, Neuro: Negative for headache, weakness, numbness, tingling. Psych: Negative for depression, anxiety, suicide ideation, homicidal ideation, and hallucinations. 10:42 Cardiovascular: Positive for chest pain. 10:42 Respiratory: Positive for shortness of breath. Exam: 09:39 ECG was reviewed by the Attending Physician. ms3 10:42 Constitutional: This is a well developed, well nourished patient who is awake, alert, ms3 and in no acute distress. Head/Face: Normocephalic, atraumatic. Neck: Trachea midline, no cervical lymphadenopathy. Supple, full range of motion without nuchal rigidity, or vertebral point tenderness. No Meningismus. Chest/axilla: Normal chest wall appearance and motion. Nontender with no deformity. Cardiovascular: Regular rate and rhythm with a normal S1 and S2. No gallops, murmurs, or rubs. Normal PMI, no JVD. No pulse deficits. Respiratory: Lungs have equal breath sounds bilaterally, clear to auscultation and percussion. No rales, rhonchi or wheezes noted. No increased work of breathing, no retractions or nasal flaring. Abdomen/GI: Soft, non-tender, with normal bowel sounds. No distension or tympany. No guarding or rebound. No evidence of tenderness throughout. MS/ Extremity: Pulses equal, no cyanosis. Neurovascular intact. Full, normal range of motion. Neuro: Awake and alert, GCS 15, oriented to person, place, time, and situation. Cranial nerves II-XII grossly intact. Motor strength 5/5 in all extremities. Sensory grossly intact. Cerebellar exam normal. Normal gait. Psych: Awake, alert, with orientation to person, place and time. Behavior, mood, and affect are within normal limits. Vital Signs: 10:40 BP 135 / 51; Pulse 72; Resp 20 S; Temp 97.7; Pulse Ox 94% on R/A; Weight 121.56 kg; ag7 Height 5 ft. 3 in. (160.02 cm); Pain 10/10; 10:55 BP 135 / 51; Pulse 66; Pulse Ox 96% on R/A; ap3 11:53 BP 112 / 64; Pulse 66; Resp 20; Pulse Ox 97% on R/A; tw2 12:33 BP 104 / 69; Pulse 75; Pulse Ox 95% on R/A; ap3 14:10 BP 132 / 46; Pulse 70; Pulse Ox 97% on R/A; ap3 10:40 Body Mass Index 47.47 (121.56 kg, 160.02 cm) ag7 MDM: 09:39 Data interpreted: electronic device monitor: rate is 70 beats/min, rhythm is normal sinus rhythm. ms3 10:40 Patient medically screened. ms3 12:23 Differential diagnosis: abnormal EKG, acute myocardial infarction, stable angina, ms3 unstable angina. HEART Score: History: Slightly Suspicious (0), ECG: Non specific repolarization disturbance / LBTB / PM (1), Age: > 45 and < 65 years (1), Risk Factors: > or = 3 Risk factors for atherosclerotic disease (2), Troponin: > 1 and < 3 x normal limit (1), Total Score = 5. The patient was given aspirin in the Emergency Department. Data reviewed: vital signs, nurses notes, lab test result(s), EKG, radiologic studies. Test interpretation: by ED physician or midlevel provider: ECG. Counseling: I had a detailed discussion with the patient and/or guardian regarding: the historical points, exam findings, and any diagnostic results supporting the discharge/admit diagnosis, lab results, radiology results, the need for further work-up and treatment in the hospital. ED course: Discussed case with Dr Matthews and he accepts patient as observation. Patient understands/ agrees with plan. All questions answered. Patient remains in stable condition.. 05/10 10:42 Order name: Basic Metabolic Panel; Complete Time: 12:11 ms3 05/10 10:42 Order name: CBC with Diff; Complete Time: 11:16 ms3 05/10 10:42 Order name: Troponin HS; Complete Time: 12:11 ms3 05/10 12:26 Order name: COVID 19 CPL (Document "Date of Onset" if Symptomatic) aa5 05/10 13:12 Order name: Hemoglobin A1c EDND 05/10 13:12 Order name: Lipid Profile EDND 05/10 10:42 Order name: EKG; Complete Time: 10:43 ms3 05/10 10:42 Order name: Cardiac monitoring; Complete Time: 10:49 ms3 05/10 10:42 Order name: EKG - Nurse/Tech; Complete Time: 10:49 ms3 05/10 10:42 Order name: IV Saline Lock; Complete Time: 10:49 ms3 05/10 10:42 Order name: Labs collected and sent; Complete Time: 10:49 ms3 05/10 13:17 Order name: Rest Stress Cardiac Imaging EDND 05/10 10:42 Order name: O2 Per Protocol; Complete Time: 10:49 ms3 05/10 10:42 Order name: O2 Sat Monitoring; Complete Time: 10:49 ms3 EC:39 Rate is 70 beats/min. Rhythm is regular. QRS [place] is Normal. Clinical impression: NSR ms3 w/ Non-specific ST/T Changes. Interpreted by me. Administered Medications: 10:49 Drug: Aspirin Chewable Tablet 324 mg Route: PO; tw2 12:34 Follow up: Response: No adverse reaction ap3 11:23 Drug: morphine 2 mg Route: IVP; Site: right hand; ap3 12:34 Follow up: Response: No adverse reaction; Pain is decreased ap3 Disposition Summary: 05/10/21 12:28 Hospitalization Ordered Hospitalization Status: Observation ms3 Provider: Prince Byron ms3 Location: Telemetry/MedSurg (observation) ms3 Condition: Stable ms3 Problem: new ms3 Symptoms: are unchanged ms3 Bed/Room Type: Standard ms3 Room Assignment: 208(05/10/21 14:20) bd Diagnosis - Chest pain, unspecified ms3 - Elevated troponin ms3 - Obesity due to excess calories ms3 - Diabetes ms3 - History of HTN ms3 - History of HLD ms3 Forms: - Medication Reconciliation Form ms3 - SBAR form ms3 Signatures: Dispatcher [employer] Haily Hogan Tara, RN RN tw2 Katey Chiang RN RN ap3 Redd Hathaway DO DO ms3 Tessa Mcgee RN RN ag7 Corrections: (The following items were deleted from the chart) 14:20 12:28 ms3 bd
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
[2021-05-10] MEDS: NITROGLYCERIN 0.4 MG/TAB SL PRN ×2 (15:54→16:05)
[2021-05-10 16:17] VITALS: BMI 47.5
[2021-05-10] MEDS ORDERED: ACETAMINOPHEN 325 MG TABLET PO PRN (17:30)
[2021-05-10] MEDS: HYDROCODONE/APAP 5/325 MG TAB PO PRN (20:22)
[2021-05-10] MEDS: METOPROLOL TAR 25 MG TAB PO SCH (20:23)
[2021-05-10] MEDS: ATORVASTATIN 40 MG TAB PO SCH (20:23)
[2021-05-11] MEDS ORDERED: REGADENOSON 0.4 MG/5 ML SYR IV ONE (08:30)
--- NOTE | 2021-05-11 14:03 | TREADPHA ---
DX: CHEST PAIN Date of Study: 05/11/2021 Ht: 5' 3 " Wt: 268 lb 0 oz Consulting Physician: YOSVANY MEDICATIONS: ASPIRIN, NORCO, NORVASC, LIPITOR, PLAVIX, LOPRESSOR, CYMBALTA, SEROQUEL HISTORY: HYPERTENSION PHYSICIAL EXAMINATION: RESTING B.P.: 150/77 RESTING H.R.: 70 RESTING EKG: SINUS WITH LEFT VENTRICULAR HYPERTROPHY PROTOCOL: PHARMACOLOGIC EXERCISE TIME: 3:30 B.P. AT PEAK STRESS: 163/69 IMPRESSION: LEXISCAN INJECTED. CARDIOLITE INJECTED (SEE NUCLEAR REPORT). COMPLAINTS OF CHEST PAIN AND TIGHTNESS. NO ARRHYTHMIAS. NO VENTRICULAR TACHYCARDIA OR VENTRICULAR TACHYCARDIA. NO ELECTROCARDIOGRAM CHANGES WITH LEXISCAN.
--- NOTE | 2021-05-11 14:04 | RAD REPORT ---
EXAM DESCRIPTION: NM - Rest Stress Cardiac Imaging - 05/11/2021 1:54 pm CLINICAL HISTORY: Chest pain COMPARISON: Cardiac stress imaging 03/27/2016 TECHNIQUE: The patient was administered 10.2 mCi of Tc 99m Sestamibi prior to resting SPECT imaging of the heart. The patient was then administered 31.1 mCi of Tc 99m Sestamibi following exercise or ph armacologic stress. Multiplanar SPECT images were reviewed. FINDINGS: The end diastolic volume is 150 ml, the end systolic volume is 75 ml, and the ejection fra ction is 50 %. End-diastolic volume was 132 mL within 56% ejection fraction on the 2017 study. In the base and midportion of the left ventricular anterolateral wall there is mildly decreased activ ity on stress imaging that is not seen on the rest sequencing. This is a new finding from 2017 and be lieved to be stress ischemia and not breast attenuation artifact. Elsewhere there is no area of stres s ischemia identifiable. No large area of scarred myocardium seen. IMPRESSION: Small focus of stress ischemia is evident in the anterolateral wall mid and base portion of the left ventricle. End-diastolic volume was enlarged at 150 mL with ejection fraction of 50%. EDV was 132 mL with 56% ej ection fraction on the 2017 study.
[2021-05-11] MEDS: METOPROLOL TAR 25 MG TAB PO SCH ×2 (14:45→20:41)
[2021-05-11] MEDS: ASPIRIN 81 MG CHEWABLE TABLET PO SCH (14:45)
[2021-05-11] MEDS: DULOXETINE 30 MG CAP PO SCH (14:45)
[2021-05-11] MEDS: AMLODIPINE 10 MG TAB PO SCH (14:46)
[2021-05-11] MEDS: CLOPIDOGREL 75 MG TABLET PO SCH (14:49)
[2021-05-11] MEDS: QUETIAPINE 25 MG TAB PO SCH (14:49)
[2021-05-11] MEDS: HYDROCODONE/APAP 5/325 MG TAB PO PRN (14:50)
--- NOTE | 2021-05-11 15:27 | P.PN ---
Subjective Date of Service: 05/11/21 Chief Complaint: Chest pain Subjective: No new changes (Patient had a positive stress test.) Physical Examination - Vital Signs Temperature: 96.7 F Blood Pressure: 198/82 Pulse: 70 Respirations: 19 Pulse Ox (%): 100 - Physical Exam General: In no apparent distress, Obese HEENT: Atraumatic, Normocephalic Respiratory: Normal air movement Cardiovascular: Regular rate/rhythm, Normal S1 S2 Neurological: Normal speech, Normal affect Assessment And Plan - Current Problems (Diagnosis) (1) Chest pain Onset Date: 12/15/14 Current Visit: No Status: Acute Qualifiers: (2) Depressive disorder Onset Date: 12/15/14 Current Visit: No Status: Acute (3) Dyslipidemia Onset Date: 04/15/18 Current Visit: No Status: Acute (4) GERD (gastroesophageal reflux disease) Onset Date: 05/10/17 Current Visit: No Status: Acute (5) History of completed stroke Current Visit: No Status: Acute (6) Morbid obesity Onset Date: 03/13/17 Current Visit: No Status: Acute (7) Diabetes mellitus Onset Date: 09/24/16 Current Visit: No Status: Chronic Qualifiers: (8) GERD (gastroesophageal reflux disease) Current Visit: No Status: Chronic Qualifiers: (9) HTN (hypertension) Onset Date: 09/24/16 Current Visit: No Status: Chronic (10) History of CVA (cerebrovascular accident) Onset Date: 09/24/16 Current Visit: No Status: Chronic Physician Review Additional Text: Assessment Patient is a 55-year-old -Micron[place] female with a past medical history of morbid obesity, CVA, hypertension and hyperlipidemia. She is currently being admitted after she returned to the ER complaining of chest pain ongoing for the past few days. Her initial troponin was elevated. Since her admission, she has had aspirin and morphine which provided partial relief of her pain. Normal coronary angiogram in 2019, and 2012 as per records available. Chest pain CVA Hypertension Hyperlipidemia Type 2 diabetes mellitus Tobacco smoking Morbid obesity Plan: Change admission status to inpatient She will need a coronary angiogram Appreciate assistance from cardiology Resume home anti-anginal regimen Resume DAPT and high intensity statin Continue DVT ppx
[2021-05-11 18:17] LABS: Protime INR 1.07
--- NOTE | 2021-05-11 20:06 | CON ---
Date of Consultation: 05/11/2021 Reason For Consultation: Chest pain. History Of Present Illness: A 55-year-old female, morbidly obese, history of hypertension, diabetes, dyslipidemia, presented with chest pain and chest pressure on activities and while at rest, has been getting worse lately, and she is active smoker, half pack per day. She has been chest pain free sin ce admission and had a stress test today. Past Medical History: As outlined above in the HPI. Medications: Refer to reconciliation sheet for detailed list. Allergies: SULFA. Family History: No premature coronary artery disease or cancer. Social History: She is a smoker half pack per day. Does not drink and does use any drugs. Review of Systems: All systems reviewed are negative except as mentioned in the HPI. Physical Examination: Vital Signs: Reviewed. Head and Neck: Pupils are equal and reactive to light. Intact eye movements. No JVD. No cervical lymphadenopathy. Neck is supple. Thyroid is not enlarged. Lungs: Clear to auscultation bilaterally. No rhonchi, rales, or crackles. No accessory muscle use. Heart: Regular rate and rhythm. No extra sounds. Abdomen: Soft, nontender. Bowel sounds positive. No organomegaly. No masses or hernia. No rigidi ty or rebound. Extremities: No clubbing or cyanosis. Intact pulses. Skin: No rashes. Neuro: alert, awake, and oriented x3. No acute focal deficits appreciated. Investigations: Hemoglobin is 11.8. Troponin is 110, down from 131. Creatinine is 1.12. Lexiscan stress test showed stress-induced ischemia of the anterolateral wall. Assessment And Recommendations: 1.Chest pain with borderline elevated troponin and positive stress test with multiple risk factors. Keep n.p.o. past midnight. Plan for coronary angiogram tomorrow morning. Continue aspirin and the patient needs better blood pressure control, and please obtain an echocardiogram. 2.Hypertension. Blood pressure is uncontrolled. She will benefit from hydrochlorothiazide 25 mg da nate. 3.Dyslipidemia. Continue Lipitor. SR/MODL Voice ID: [id number] Report ID: [id number]
[2021-05-11] MEDS: ATORVASTATIN 40 MG TAB PO SCH (20:41)
[2021-05-12] MEDS ORDERED: LIDOCAINE 1% 20 ML MDV ONE (06:17)
[2021-05-12] MEDS ORDERED: HEPA 1000U/500MLS 2,000 UNIT/1,000 ML BAG IV ONE (06:17)
[2021-05-12] MEDS ORDERED: HEPARIN 5000 UNIT/ML 1 ML VIAL ONE (10:16)
[2021-05-12] MEDS ORDERED: FENTANYL CITR 100 MCG/2 ML ONE (10:16)
[2021-05-12] MEDS ORDERED: HEPARIN 10,000 UNIT/10 ML VIAL IV ONE (10:17)
[2021-05-12] MEDS ORDERED: MIDAZOLAM HCL 2 MG/2 ML INJ ONE (10:17)
[2021-05-12] MEDS ORDERED: VERAPAMIL HCL 10 MG/4 ML VIAL IV ONE (10:17)
[2021-05-12] MEDS ORDERED: ATROPINE SULF 1 MG/10 ML SYR IV ONE (10:18)
[2021-05-12] MEDS ORDERED: NITROGLYCERIN/D5W 25 MG/250 ML BTL IV ONE (10:18)
[2021-05-12] MEDS ORDERED: NA CHLORIDE 0.9% 500 ML ONE (10:18)
--- NOTE | 2021-05-12 10:50 | P.PN ---
Subjective Date of Service: 05/12/21 Chief Complaint: Chest pain Subjective: No new changes (NPO for coronary angiogram today.) Physical Examination - Vital Signs Temperature: 96.9 F Blood Pressure: 160/74 Pulse: 61 Respirations: 18 Pulse Ox (%): 96 - Physical Exam General: Alert, In no apparent distress, Cooperative, Obese HEENT: Atraumatic, Normocephalic Respiratory: Normal air movement, Other (Breathing not laboured ) Neurological: Normal speech, Normal affect Assessment And Plan - Current Problems (Diagnosis) (1) Chest pain Onset Date: 12/15/14 Current Visit: No Status: Acute Qualifiers: (2) Depressive disorder Onset Date: 12/15/14 Current Visit: No Status: Acute (3) Dyslipidemia Onset Date: 04/15/18 Current Visit: No Status: Acute (4) GERD (gastroesophageal reflux disease) Onset Date: 05/10/17 Current Visit: No Status: Acute (5) History of completed stroke Current Visit: No Status: Acute (6) Morbid obesity Onset Date: 03/13/17 Current Visit: No Status: Acute (7) Diabetes mellitus Onset Date: 09/24/16 Current Visit: No Status: Chronic Qualifiers: (8) GERD (gastroesophageal reflux disease) Current Visit: No Status: Chronic Qualifiers: (9) HTN (hypertension) Onset Date: 09/24/16 Current Visit: No Status: Chronic (10) History of CVA (cerebrovascular accident) Onset Date: 09/24/16 Current Visit: No Status: Chronic Physician Review Additional Text: Assessment Patient is a 55-year-old -Banglades[place] female with a past medical history of morbid obesity, CVA, hypertension and hyperlipidemia. She is currently being admitted after she returned to the ER complaining of chest pain ongoing for the past few days. Her initial troponin was elevated, and has a positive stress test. Chest pain CVA Hypertension Hyperlipidemia Type 2 diabetes mellitus Tobacco smoking Morbid obesity Plan: NPO for coronary angiogram Continue DAPT, high intensity statin and anti-anginal regimen Continue DVT ppx
[2021-05-12 13:55] VITALS: O2SAT 99
[2021-05-12] MEDS: CLOPIDOGREL 75 MG TABLET PO SCH (15:06)
[2021-05-12] MEDS: ASPIRIN 81 MG CHEWABLE TABLET PO SCH (15:06)
[2021-05-12] MEDS: HYDROCODONE/APAP 5/325 MG TAB PO PRN ×2 (15:07→20:19)
[2021-05-12] MEDS: DULOXETINE 30 MG CAP PO SCH (15:07)
[2021-05-12] MEDS: QUETIAPINE 25 MG TAB PO SCH (15:07)
[2021-05-12] MEDS: AMLODIPINE 10 MG TAB PO SCH (15:07)
[2021-05-12] MEDS: METOPROLOL TAR 25 MG TAB PO SCH ×2 (15:13→20:20)
[2021-05-12] MEDS: ATORVASTATIN 40 MG TAB PO SCH (20:20)
[2021-05-12 20:21] VITALS: BP 112/72
[2021-05-12 21:17] VITALS: TEMP 97
--- NOTE | 2021-05-12 21:55 | PN ---
Date of Progress Note: 05/12/2021 Subjective: Seen by bedside, doing well. No further chest pain, status post coronary angiogram done by myself today and her coronary arteries are normal. Review of Systems: There is no chest pain, shortness of breath, orthopnea, cough, nausea, vomiting, diarrhea. No abdomi nal pain. All other systems reviewed are negative. Physical Examination: Vital Signs: Reviewed. Head and Neck: Pupils are equal, reactive to light. Intact eye movements. No JVD. No cervical lym phadenopathy. Neck is supple. Thyroid is not enlarged. Lungs: Clear to auscultation bilaterally. No rhonchi, rales, or crackles. No accessory muscle use. Heart: Regular rate and rhythm. No extra sounds. Abdomen: Soft, nontender. Bowel sounds positive. No organomegaly. No masses or hernia. Extremities: No clubbing, cyanosis. Intact pulses. Skin: No rash. Neurologic: Alert, awake, oriented x3. No deficits appreciated. Investigations: Labs were reviewed. Assessment And Recommendations: Chest pain. She had normal coronary angiogram today. Chest pain is noncardiac. From my perspective, patient can be released home and she can follow as an outpatient. Cardiology will sign off. SR/MODL Voice ID: [id number] Report ID: [id number]
--- NOTE | 2021-05-12 23:04 | OP ---
Date of Procedure: 05/12/2021 Surgeon: YVETTE YEPEZ Procedure Performed: Selective coronary angiogram. Indication: Chest pain. Elevated troponin, abnormal stress test. Access: Right radial artery 6-[place] closed with TR band. Complications: None. Bleeding: Less than 10 mL. Description Of Procedure: After risks, benefits, alternatives were explained, patient agreed to proc eed and signed informed consent. Patient was brought into cardiac catheterization laboratory, preppe d and draped in usual sterile fashion. Then, we accessed right radial artery using a pediatric micro puncture kit, given fentanyl, Versed in incremental doses to achieve adequate moderate sedation. Tot al sedation time was 20 minutes and then after placing the 6-[place] slender sheath, I took a 5-[place] Rolfe 4.0 Catheter into the aortic root over a J-wire, engaged the left main, right coronary artery, took standard views and then removed the catheter and sheath, placed TR band with good hemostasis. Findings: 1.Left main is large and normal. 2.LAD, large and normal, normal diagonal branches. 3.Left circumflex, large and normal. 4.RCA is large dominant, normal. Conclusion: Normal coronary arteries and noncardiac chest pain. Plan: Search for other causes of chest pain and lifestyle modifications recommended. SR/MODL Voice ID: [id number] Report ID: [id number]
--- NOTE | 2021-05-13 06:15 | P.DS ---
Admission Date: 05/11/21 Discharge Date: 05/12/21 Disposition: ROUTINE DISCHARGE Discharge Condition: GOOD Reason for Admission: Chest pain - Problems (1) Chest pain Onset Date: 12/15/14 Status: Acute Qualifiers: (2) Depressive disorder Onset Date: 12/15/14 Status: Acute (3) Dyslipidemia Onset Date: 04/15/18 Status: Acute (4) GERD (gastroesophageal reflux disease) Onset Date: 05/10/17 Status: Acute (5) History of completed stroke Status: Acute (6) Morbid obesity Onset Date: 03/13/17 Status: Acute (7) Diabetes mellitus Onset Date: 09/24/16 Status: Chronic Qualifiers: (8) GERD (gastroesophageal reflux disease) Status: Chronic Qualifiers: (9) HTN (hypertension) Onset Date: 09/24/16 Status: Chronic (10) History of CVA (cerebrovascular accident) Onset Date: 09/24/16 Status: Chronic Brief History of Present Illness: Patient is a 55-year-old -[place] female with a known past medical history of hypertension hyperlipidemia and type 2 diabetes mellitus. She returns to the hospital complaining of chest pain. She initially presented here yesterday complaining of a nonexertional chest pain that started while she was sitting and watching TV. She described as a 10 out of 10 pain. She stated here shortly and left as she did not want to be admitted. She now returns today complaining of unrelieved chest pain. Patient did not take any nitroglycerin at home. As per chart review, her 2D echo was normal with a preserved EF. She had a coronary angiogram a couple years ago which revealed patent coronaries. Patient patient admits to tobacco smoking, smoking half a pack per day. No history of illicit drug use such as cocaine. Hospital Course: Patient is a 55-year-old -[place] female with a past medical history of morbid obesity, CVA, hypertension and hyperlipidemia. She is currently being admitted after she returned to the ER complaining of chest pain ongoing for the past few days. Her initial troponin was elevated. She had a positive stress test. Coronary angiogram revealed patent vessels. She will be discharged today on 05/12/2021. Vital Signs/Physical Exam: Temp Pulse Resp BP Pulse Ox 97 F 72 16 112/72 99 05/12/21 20:00 05/12/21 20:20 05/12/21 20:00 05/12/21 20:20 05/12/21 20:00 Laboratory Data at Discharge: WBC 9.20 K/uL (4.3-10.9) 05/10/21 10:45 Hgb 11.8 g/dL (12.0-15.0) L 05/10/21 10:45 Hct 35.7 % (36.0-45.0) L 05/10/21 10:45 Plt Count 298 K/uL (152-406) 05/10/21 10:45 PT 11.8 SECONDS (9.5-12.5) 05/11/21 17:49 INR 1.07 05/11/21 17:49 APTT 26.5 SECONDS (24.3-36.9) 05/11/21 17:49 APTT Cancelled 05/11/21 17:49 Sodium 142 mmol/L (136-145) 05/10/21 10:45 Potassium 4.3 mmol/L (3.5-5.1) 05/10/21 10:45 BUN 19 mg/dL (7-18) H 05/10/21 10:45 Creatinine 1.12 mg/dL (0.55-1.3) 05/10/21 10:45 Glucose 126 mg/dL (74-106) H 05/10/21 10:45 Triglycerides 94 mg/dL (<150) 05/11/21 05:39 Cholesterol 180 mg/dL (<200) 05/11/21 05:39 HDL Cholesterol 51 mg/dL (40-60) 05/11/21 05:39 Cholesterol/HDL Ratio 3.53 05/11/21 05:39 Home Medications: Aspirin Chewable [Aspirin Chewable*] 81 mg PO DAILY 04/14/18 Clopidogrel Bisulfate [Plavix*] 75 mg PO DAILY 04/14/18 Duloxetine HCl [Cymbalta] 30 mg PO DAILY 04/14/18 Metformin ER [Glucophage ER*] 500 mg PO BID 04/14/18 Multivitamin [Multivitamins] 1 cap PO DAILY 04/14/18 Quetiapine Fumarate [Seroquel] 25 mg PO DAILY 04/14/18 Atorvastatin Calcium 40 mg PO BEDTIME #30 tablet 04/15/18 Metoprolol Tartrate [Lopressor*] 12.5 mg PO BID #30 tab 04/15/18 Amlodipine [Norvasc*] 10 mg PO DAILY #30 tab 03/17/21 Diet: AHA Activity: Ad huber Followup: ARMANDO ROBERTS [Primary Care Provider] - 1-2 Weeks
--- NOTE | 2021-05-15 08:38 | EKG ---
Test Date: 2021-05-10 Test Time: 09:39:19 Floorperson: GOVIND MEASUREMENT RESULTS: Intervals: Rate: 70 NV: 178 QRSD: 104 QT: 444 QTc: 479 Conger: P: 64 NV: 178 QRS: -6 T: -22 INTERPRETIVE STATEMENTS: Sinus rhythm with frequent premature ventricular complexes Voltage criteria for left ventricular hypertrophy ST elevation, consider early repolarization, pericarditis, or injury Abnormal ECG Compared to ECG 05/09/2021 21:04:41 ST (T wave) deviation now present Atrial abnormality no longer present Prolonged QT interval no longer present Electronically Signed On 05-15-21 08:24:58 CDT by Giovanni Brewster
== END 2021-05-12 21:10 | disposition home or self-care (01) | DRG 287 ==
LOC: ER 10:28 → ERHOLD 12:31 → 2ND 14:56 → OBSVTOIN 05-11 15:24
PROVIDERS: ADMIT Internal Medicine; ATTEND Internal Medicine
PROC: B201YZZ Plain Radiography of Multiple Coronary Arteries using Other Contrast (ICD-10-PCS; principal; 2021-05-12)
DX: R07.89 Other chest pain (principal); Z68.42 Body mass index [BMI] 45.0-49.9, adult; R77.8 Other specified abnormalities of plasma proteins; R94.39 Abnormal result of other cardiovascular function study; F17.210 Nicotine dependence, cigarettes, uncomplicated; Z86.73 Personal history of transient ischemic attack (TIA), and cerebral infarction without residual deficits; E78.5 Hyperlipidemia, unspecified; K21.9 Gastro-esophageal reflux disease without esophagitis; E11.9 Type 2 diabetes mellitus without complications; F32.A Depression, unspecified; I10 Essential (primary) hypertension; E66.01 Morbid (severe) obesity due to excess calories; Z88.2 Allergy status to sulfonamides; Z89.412 Acquired absence of left great toe
CPT/HCPCS: 0240U; 36415; 70450; 71045; 72220; 76937; 78452; 80048; 80061; 80076; 82947; 83036; 83735; 83880; 84484; 85025; 85610; 85730; 93005; 93017; 93454; 96374; 96375; 99284; A9500; C1893; G0378; J1644; J2250; J2270; J2405; J2785; J3010; J7040; J8597

== ENCOUNTER 2021-06-01 13:06 | Observation (INO) | payer OTHER ==
--- OUTSIDE RECORDS SUMMARY | 2021-06-01 13:11 | XMS REPORT | Continuity of Care Document ---
:1965 Author Organization [facility] t Address [address] [place] [address] [place] [address] Care Team Providers Name Role Phone Chayito TOMAS Primary Care Physician Unavailable Jean Burnett Attending Clinician Unavailable LOREN Attending Clinician Unavailable Sawyer VICENTE Attending Clinician Unavailable Flynn DOTY Attending Clinician Sawyer Vicente MD Attending Clinician Loren DOTY Attending Clinician CAROLINE Attending Clinician Unavailable Chayito TOMAS Attending Clinician Unavailable Chayito Dickey Attending Clinician Shanon Fragoso Attending Clinician iVcky Schulz MD Attending Clinician FLYNN Admitting Clinician Unavailable Payers Payer Name Policy Type Policy Number Effective Date Expiration Date Sawyer reynaga [facility] BRYSON SCHMIDT [id number] 2018 00:00:00 PLUS Problems Condition Condition Condition Status Onset Resolution Last Treating Co mments Source Name Details Category Date Date Treatment Clinician Date Leukocytos Leukocytos Disease Active U nivers is, is, 3-10 ity of unspecifie [place] type d type 00 Medical [facility] Elevated Elevated Disease Active Unive rs alkaline alkaline 3-10 ity of phosphatas phosphatas 00:[place] e [place] e level 00 Medical Branch Knee mass, Knee mass, Disease Active Overview : Univers left left 4-28 Formattin ity of 00:00: g of this [place] 00 note Medical might be Branch different from the original. Added automatic ally from request for surgery [id number] LEN LEN Disease Active Univers (obstructi (obstructi 5-19 it y of ve sleep ve sleep 00:00: [place] apnea) apnea) Medical Branch Essential Essential Disease Active Uni vers hypertensi hypertensi 1-21 it y of on on 00:00: Medical Branch Dyslipidem Dyslipidem Disease Active U nivers ia ia 1-21 ity of 00:00: [place] [facility] Coronary-m Coronary-m Disease Active U nivers yocardial yocardial 1-21 ity of bridge bridge 00:00: [place] [facility] Type 2 Type 2 Disease Active Univers diabetes diabetes 1-21 ity of mellitus mellitus 00:00: [place] without without 00 Medical complicati complicati Br anch on, on, without without long-term long-term current current use of use of insulin insulin Tobacco Tobacco Disease Active Univers abuse abuse 1-21 ity of 00:00: [place] [facility] Morbid Morbid Disease Active 2015-02 Univers obesity obesity 1-16 ity of with body with body 00:00[place] mass index mass index 00 Me dical of of Branch 40.0-49.9 40.0-49.9 Chest pain Chest pain Disease Active 2015-02 U nivers 1-15 ity of 00:00: [place] [facility] Aphasia Aphasia Disease Active Univers 7-07 ity of 00:00: [place] [facility] Right-side Right-side Disease Active U nivers d muscle d muscle 7-07 ity of weakness weakness 00:00: [place] [facility] H/O H/O Disease Active Univers 08-30 ity of section section 00:00: [place] 00 Medical Branch History of History of Disease Active U nivers NM NM 08-30 ity of (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 00:[place] l 00 Medical infarction infarction Br anch ) ) Metabolic Metabolic Disease Active Uni vers syndrome syndrome 08-30 ity of 00:00: [place] 00 Medical Branch Acute CVA Acute CVA Disease Active Uni vers (cerebrova (cerebrova 08-29 it y of scular scular 00:00: [place] accident) accident) 00 [facility] Branch Allergies, Adverse Reactions, Alerts Allergy Allergy Status Severity Reaction(s) Onset Inactive Treating Comm ents Source Name Type Date Date Clinician Morphine Propensi Active Itching 2015-02 Unive rs ty to 1-15 ity of adverse 00:00: [place] reaction 00 Medical s Branch MORPHINE DRUG Active ITCHING 2015-02 Univers INGREDI 1-15 ity of 00:00: [place] 00 Medical Branch SULFA Drug Active Anaphylaxis 2015-02 Unive [...] History of tobacco Cigarette Smoker University [facility] Exposure to Not sure Manson of SARS-CoV-2 (event) [facility] Alcohol intake 2021-04-27 2021-04-27 0 /d University of 00:00:00 00:00:00 [facility] History SDOH 2019-12-09 2019-12-09 5 University o f Financial 00:00:00 00:00:00 [facility] History SDLA Food 2019-12-09 2019-12-09 1 Univers ity of Worry 00:00:00 00:00:00 [facility] History SDLA Food 2019-12-09 2019-12-09 1 Univers ity of Scarcity 00:00:00 00:00:00 [place] [facility] History SDOH 2019-12-09 2019-12-09 2 University o f Transport Med 00:00:00 00:00:00 [place] [facility] History SDOH 2019-12-09 2019-12-09 2 University o f Transport Non-Med 00:00:00 00:00:00 [facility] Cigarettes smoked 2016-01-10 2016-01-10 Univers ity of current (pack per 00:00:00 00:00:[address] [facility] ) - Reported Branch Cigarette 2016-01-10 2016-01-10 University of pack-years 00:00:00 00:00:00 [place] [facility] Tobacco use and 2016-01-10 2016-01-10 Never used Universit y of exposure 00:00:00 00:00:00 [place] [facility] [birth year] Universit y of 00:00:00 00:00:00 [place] [facility] Smoking Status Start Date Stop Date Source Current every day smoker 2016-01-10 00:00:00 Uni versity of [place] [facility] Medications Ordered Filled Start Stop Current Ordering Indication Dosage Frequency Signature Comments Components Source Medication Medication Date Date Medication? Clinician (SIG) Name Name HYDROcodone 2021- No 1{tbl} 1 tablet, Univers -acetaminop 05-17 Oral, ity of hen (NORCO 02:45: 01:36 ONCE, 1 [place] as 5) 5-325 mg 00 :00 dose, On Medi elizabeth tablet 1 Tue Branch tablet 05/16/21 at 2145, [place] nitroglycer 2021- No .4mg 0.4 mg, Un ines in 05-17 Sublingual ity of (NITROSTAT) 02:45: 01:37 , ONCE, 1 [place] sublingual 00 :00 dose, On Medic al tablet 0.4 Tue Branch mg 05/16/21 at 2145, [place] iopamidol 2021- No [id number] 100mL 100 mL, Univers (ISOVUE 05-17 Intravenou ity o f 370-500 mL) 01:45: 00:38 s, ONCE, 1 [place] injection 00 :00 dose, On Medica l 100 mL Tue Branch 05/16/21 at 2045, Routine ondansetron 2021- No 4mg 4 mg, Slow Univers (ZOFRAN 05-17 IV Push, ity of (PF)) 00:30: 23:23 ONCE, 1 [place] injection 4 00 :00 dose, On Medi elizabeth mg Sat Branch 05/16/21 at 1930, [place] acetaminoph 2021- No 650mg 650 mg, U nivers en 05-17 Oral, ity of (TYLENOL) 00:30: 23:22 ONCE, 1 [place] tablet 650 00 :00 dose, On Medic al mg Sat Branch 05/16/21 at 1930, [place] FENTanyl PF 2021- No 75ug 75 mcg, Un ines (SUBLIMAZE 05-17 Slow IV ity o f (PF)) 00:30: 23:23 Push, [place] injection 00 :00 ONCE, 1 Medical 75 mcg dose, On Branch [facility] 05/16/21 at 1930, STAT furosemide 2021- Yes [id number] 20mg Take 1 Univers 20 mg 05-16 tablet by ity of tablet 00:00: 04:59 mouth [place] 00 :00 every Medical morning Branch for 7 days. atorvastati 2021- No 40mg Take 40 mg Univers n (LIPITOR) 2-10 02-10 by mouth ity of 40 mg 14:41: 00:00 at [place] tablet 54 :00 bedtime. Medical Branch QUEtiapine 2021- No 50mg Take 50 mg Univers (SEROQUEL) 2-10 02-10 by mouth ity of 50 mg 14:04: 00:00 daily. [place] tablet 31 :00 Medical Branch oxcarbazepi 2021- No Take by U nivers ne 2- 02-10 mouth. ity of (TRILEPTAL 14:04: 00:00 [place] ORAL) 31 :00 Medical Branch metFORMIN Yes [id number] 1000mg Take 1 Univers 1,000 mg 2-10 tablet by ity of tablet 00:00: mouth 2 [place] 00 (two) Medical times Branch daily with meals. atorvastati Yes [id number] 40mg Take 1 Univers n (LIPITOR) 2-10 tablet by ity of 40 mg 00:00: mouth at [place] tablet 00 bedtime. Medical Branch metFORMIN Yes [id number] 1000mg Take 1 Univers 1,000 mg 2-10 tablet by ity of tablet 00:00: mouth 2 [place] 00 (two) Medical times Branch daily with meals. atorvastati 2021-0 Yes [id number] 40mg Take 1 Univers n (LIPITOR) 2-10 tablet by ity of 40 mg 00:00: mouth at [place] tablet 00 bedtime. Medical Branch metFORMIN 2021-0 Yes [id number] 1000mg Take 1 Univers 1,000 mg 2-10 tablet by ity of tablet 00:00: mouth 2 [place] 00 (two) Medical times Branch daily with meals. atorvastati 2021-0 Yes [id number] 40mg Take 1 Univers n (LIPITOR) 2-10 tablet by ity of 40 mg 00:00: mouth at [place] tablet 00 bedtime. Medical Branch OXcarbazepi 2021-0 Yes Univer s ne 300 mg 2-07 ity of tablet 00:00: [place] [facility] QUEtiapine 2021-0 Yes Univers 200 mg 2-07 ity of tablet 00:00: [place] [facility] OXcarbazepi 2021-0 Yes Univer s ne 300 mg 2-07 ity of tablet 00:00: [place] [facility] QUEtiapine 2021-0 Yes Univers 200 mg 2-07 ity of tablet 00:00: [place] [facility] OXcarbazepi 2021-0 Yes Univer s ne 300 mg 2-07 ity of tablet 00:00: [place] [facility] QUEtiapine 2021-0 Yes Univers 200 mg 2-07 ity of tablet 00:00: [place] [facility] Diclofenac 2021-0 Yes APPLY Univer s Sodium 1 % 1-25 TOPICALLY ity of gel 00:00: TO THE [place] AFFECTED Medical AREA FOUR Branch TIMES DAILY FOR 25 DAYS HYDROcodone 2021-0 Yes 1{tbl} Take 1 Un ines -acetaminop 1-25 tablet by ity of hen 7.5-325 00:00: mouth 2 [place] as mg per 00 (two) Medical tablet times Branch daily. Diclofenac 2021-0 Yes APPLY Univer s Sodium 1 % 1-25 TOPICALLY ity of gel 00:00: TO THE [place] AFFECTED Medical AREA FOUR Branch TIMES DAILY FOR 25 DAYS HYDROcodone 2021-0 Yes 1{tbl} Take 1 Un ines -acetaminop 1-25 tablet by ity of hen 7.5-325 00:00: mouth 2 [place] as mg per 00 (two) Medical tablet times Branch daily. Diclofenac Yes APPLY Univer s Sodium 1 % 1-25 TOPICALLY ity of gel 00:00: TO THE [place] 00 AFFECTED Medical AREA FOUR Branch TIMES [...] 00 DAILY FOR Medical HYPERTENSI Branch ON amLODIPine Yes TAKE 1 Unive rs 10 mg 1-21 TABLET BY ity of tablet 00:00: MOUTH [place] 00 DAILY FOR Medical HYPERTENSI Branch ON amLODIPine Yes TAKE 1 Unive rs 10 mg 1-21 TABLET BY ity of tablet 00:00: MOUTH [place] 00 DAILY FOR Medical HYPERTENSI Branch ON cyclobenzap 2020-02 Yes TAKE 1 Univ ers rine 10 mg 1-30 TABLET BY ity of tablet 00:00: MOUTH [place] 00 TWICE Medical DAILY FOR Branch 14 DAYS cyclobenzap 2020-02 Yes TAKE 1 Univ ers rine 10 mg 1-30 TABLET BY ity of tablet 00:00: MOUTH [place] 00 TWICE Medical DAILY FOR Branch 14 DAYS cyclobenzap 2020-02 Yes TAKE 1 Univ ers rine 10 mg 1-30 TABLET BY ity of tablet 00:00: MOUTH [place] 00 TWICE Medical DAILY FOR Branch 14 DAYS triamcinolo 2020-02 Yes [id number] Apply to Univers ne 0-14 area(s) 2 ity of acetonide 00:00: (two) [place] 0.1 % cream 00 times Medical daily. Branch triamcinolo 2020-02 Yes [id number] Apply to Univers ne 0-14 area(s) 2 ity of acetonide 00:00: (two) [place] 0.1 % cream 00 times Medical daily. Branch triamcinolo 2020-02 Yes [id number] Apply to Univers ne 0-14 area(s) 2 ity of acetonide 00:00: (two) [place] 0.1 % cream 00 times Medical daily. Branch triamterene 2020-02 Yes [id number] 1{capsu Take 1 Univers -hydrochlor 0-12 le} capsule by it y of othiazide 00:00: mouth [place] 37.5-25 mg 00 every Medical per capsule morning. [facility] triamterene 2020-02 Yes [id number] 1{capsu Take 1 Univers -hydrochlor 0-12 le} capsule by it y of othiazide 00:00: mouth [place] 37.5-25 mg 00 every Medical per capsule morning. [facility] triamterene 2020-02 Yes [id number] 1{capsu Take 1 Univers -hydrochlor 0-12 le} capsule by it y of othiazide 00:00: mouth [place] 37.5-25 mg 00 every Medical per capsule morning. [facility] aspirin 81 Yes 81mg Take 81 mg U nivers mg chewable 9-28 by mouth ity of tablet 16:55: daily. [address] DULoxetine Yes 30mg Take 30 mg U nivers (CYMBALTA) 9-28 by mouth ity o f 30 mg 16:55: daily. [address] amitriptyli Yes 25mg Take 25 mg Univers ne 25 mg 9-28 by mouth ity of tablet 16:55: at bedtime [place] [address] as needed Medical for Branch Insomnia. DULoxetine Yes 60mg Take 60 mg U nivers (CYMBALTA) 9-28 by mouth ity o f 60 mg 16:55: daily. [address] aspirin 81 Yes 81mg Take 81 mg U nivers mg chewable 9-28 by mouth ity of tablet 16:55: daily. [address] DULoxetine Yes 30mg Take 30 mg U nivers (CYMBALTA) 9-28 by mouth ity o f 30 mg 16:55: daily. [address] amitriptyli Yes 25mg Take 25 mg Univers ne 25 mg 9-28 by mouth ity of tablet 16:55: at bedtime [place] [address] as needed Medical for Branch Insomnia. DULoxetine Yes 60mg Take 60 mg U nivers (CYMBALTA) 9-28 by mouth ity o f 60 mg 16:55: daily. [place] [address] Medical Branch aspirin 81 Yes 81mg Take 81 mg U nivers mg chewable 11-22 by mouth ity of tablet 16:55: daily. [place] [address] Medical Branch DULoxetine Yes 30mg Take 30 mg U nivers (CYMBALTA) 11-22 by mouth ity o f 30 mg 16:55: daily. [place] [address] Medical Branch amitriptyli Yes 25mg Take 25 mg Univers ne 25 mg 11-22 by mouth ity of tablet 16:55: at bedtime [place] [address] as needed Medical for Branch Insomnia. DULoxetine Yes 60mg Take 60 mg U nivers (CYMBALTA) 11-22 by mouth ity o f 60 mg 16:55: daily. [place] [address] Medical Branch metFORMIN 2022- No [id number] 1000mg Take 1 Univers 1,000 mg 10-28 02-10 tablet by ity o f tablet 00:00: 00:00 mouth 2 [place] 00 :00 (two) Medical times Branch daily with meals. diltiazem Yes [id number] 360mg Take 1 U nivers 360 mg 24 3-03 capsule by ity of hr capsule 00:00: mouth [place] 00 daily. Medical Branch diltiazem Yes [id number] 360mg Take 1 U nivers 360 mg 24 3-03 capsule by ity of hr capsule 00:00: mouth [place] 00 daily. Medical Branch diltiazem Yes [id number] 360mg Take 1 U nivers 360 mg 24 3-03 capsule by ity of hr capsule 00:00: mouth [place] 00 daily. Medical Branch nitroglycer 2019-[id number] 1 Univers in 0.4 mg 0-27 tablet ity of sublingual 00:00: [place] the [place] tablet 00 tongue Medical every 5 Branch (five) minutes as needed for Chest pain. pantoprazol 2019-02 Yes [id number] 40mg Take 1 Univers e 40 mg EC 0-27 tablet by ity of tablet 00:00: mouth [place] 00 daily. Medical Branch nitroglycer 2019-[id number] 1 Univers in 0.4 mg 0-27 tablet ity of sublingual 00:00: [place] the [place] tablet 00 tongue Medical every 5 Branch (five) minutes as needed for Chest pain. pantoprazol 2019-02 Yes [id number] 40mg Take 1 Univers e 40 mg EC 0-27 tablet by ity of tablet 00:00: mouth [place] 00 daily. Medical Branch nitroglycer 2019-[id number] 1 Univers in 0.4 mg 0-27 tablet ity of sublingual 00:00: [place] the [place] tablet 00 tongue Medical every 5 Branch (five) minutes as needed for Chest pain. pantoprazol 2019-02 Yes [id number] 40mg Take 1 Univers e 40 mg [...] capsule 00 (three) Medical times Branch daily. Diltiazem Diltiazem Yes [place] TK 1 C [...] S t [facility] Hydrocodone Hydrocodone Yes [place] as [facility] -Acetaminop -Acetaminop Burnett directed [facility] Diclofenac Diclofenac Yes [place] [address] Sodium Sodium Burnett with food [facility] or milk [facility] Ondansetron Ondansetron Yes [place] [address] Burnett on the [facility] - tongue and Memoria allow to l dissolve [facility] Cyclobenzap Cyclobenzap Yes [place] [address] rine HCl rine HCl Burnett as needed [facility] Gabapentin Gabapentin Yes [place] [address] [facility] Dyazide Dyazide Yes [place] [address] [facility] in the [facility] - morning Memoria l [facility]ics Amitriptyli Amitriptyli Yes [place] [address] ne HCl ne HCl Burnett at bedtime [facility] Atorvastati Atorvastati Yes [place] [address] n Calcium n Calcium [facility] Linzess Linzess Yes [place] [address] [facility] at least [facility] - 30 minutes Memoria before the l first meal Outpati of the day ent on an Clinics empty stomach Amitiza Amitiza Yes [place] [address] [facility] with food [facility] - and water [facility] l [facility] Alprazolam Alprazolam Yes [place] [address] [facility] Metformin Metformin Yes [place] [address] HCl HCl Burnett with a [facility] - meal [facility]oria [facility] Immunizations Ordered Filled Immunization Date Status Comments [facility] e Immunization Name Name Influenza Virus 2021-04-06 Completed Universit y of Vaccine Quad IM, 00:00:00 [facility] dical Preserv and ABX Branch Free 6 MO-64 YRS Influenza Virus 2021-04-06 Completed Universit y of Vaccine Quad IM, 00:00:00 [facility] dical Preserv and ABX Branch Free 6 MO-64 YRS Influenza Virus 2021-04-06 Completed Universit y of Vaccine Quad IM, 00:00:00 [facility] dical Preserv and ABX Branch Free 6 MO-64 YRS SARS-COV-2 COVID-19 2021-03-15 Completed Unive rsity of MODERNA VACCINE 00:00:00 [facility] Branch SARS-COV-2 COVID-19 2021-03-15 Completed Unive rsity of MODERNA VACCINE 00:00:00 [facility] Branch SARS-COV-2 COVID-19 2021-03-15 Completed Unive rsity of MODERNA VACCINE 00:00:00 [facility] Branch SARS-COV-2 COVID-19 2020-09-07 Completed Unive rsity of MODERNA VACCINE 00:00:00 [facility] Branch SARS-COV-2 COVID-19 2020-09-07 Completed Unive rsity of MODERNA VACCINE 00:00:00 [facility] SARS-COV-2 COVID-19 2020-09-07 Completed Unive rsity of MODERNA VACCINE 00:00:00 [facility] Branch SARS-COV-2 COVID-19 2020-08-08 Completed Unive rsity of MODERNA VACCINE 00:00:00 [facility] Branch SARS-COV-2 COVID-19 2020-08-08 Completed Unive rsity of MODERNA VACCINE 00:00:00 [facility] SARS-COV-2 COVID-19 2020-08-08 Completed Unive rsity of MODERNA VACCINE 00:00:00 [facility] Flucelvax - Flucelvax - 2019-04-[address] [facility] - multidose vial multidose vial 00:00:00 [facility] Vital Signs Vital Name Observation Time Observation Value Comments Source Systolic blood 2021-05-17 03:00:00 132 mm[Hg] Univer sity of pressure [facility] Diastolic blood 2021-05-17 03:00:00 66 mm[Hg] Unive rsity of pressure [facility] Heart rate 2021-05-17 03:00:00 98 /min [facility] Respiratory rate 2021-05-17 03:00:00 23 /min Univ ersity of [place] [facility] Oxygen saturation in 2021-05-17 03:00:00 97 /min University of Arterial blood by [facility] Pulse oximetry Branch Body temperature 2021-05-16 22:50:[address] [facility] Body height 2021-05-16 22:50:00 160 cm Universi ty [facility] Body weight 2021-05-16 22:50:00 121.564 kg Universi [facility] BMI 2021-05-16 22:50:00 47.47 kg/m2 Universi [facility] Systolic blood 2021-04-06 20:11:00 141 mm[Hg] Univer sity of [facility] Diastolic blood 2021-04-06 20:11:00 71 [facility]Hg[facility] 2021-04-06 20:10:00 81 /min [facility] Body temperature 2021-04-06 20:10:[address] [facility] [place] [facility] Body height 2021-04-06 20:10:00 160 cm Universi [facility] Body weight 2021-04-06 20:10:00 124.921 kg [facility] BMI 2021-04-06 20:10:00 48.78 kg/m2 [facility] Oxygen saturation in 2021-04-06 20:10:00 99 /min University of Arterial blood by [facility] Pulse oximetry [place] Procedures Procedure Date / Time Performing Clinician Source Performed TROPONIN I 2021-05-17 02:04:00 Carol Vicente [facility] CT ANGIOGRAM CHEST 2021-05-17 00:42:49 Reg Pruett [facility] XR CHEST 1 VW 2021-05-16 23:47:00 Reg Pruett [facility] LIPASE 2021-05-16 23:44:00 Reg Pruett [facility] COMP. METABOLIC PANEL 2021-05-16 23:44:00 Reg Pruett [facility] ([id number]) [facility] N-TERMINAL PRO-BNP 2021-05-16 23:44:00 Reg Pruett [facility] TROPONIN I 2021-05-16 22:57:00 Reg Pruett [facility] CBC WITH DIFF 2021-05-16 22:57:00 Reg Pruett [facility] o [facility] [place] [facility] PROTHROMBIN TIME / INR 2021-05-16 22:57:00 Reg Pruett [facility] ACTIVATED PARTIAL 2021-05-16 22:57:00 Reg Pruett [facility] THRMPLAS [facility] COVID-19 (ID NOW RAPID 2021-05-16 22:57:00 Reg Pruett [facility] TESTING) [facility] CONSENT/REFUSAL FOR 2021-05-16 22:44:12 [facility]igned, [facility] Name [facility] Branch FLU VACC ([id number]), 2021-04-06 20:43:21 Lacie Tomas [facility] 2-64 YRS, .5ML, IM, Medical Bran ch QUAD (FLUCELVAX) Encounters Start End Encounter Admission Attending Care Care Encounter Source Date/Time Date/Time Type Type Clinicians Facility Department ID 2021-03-22 Out[facility], [facility] [id number] 12:43:31 [place] [address] [facility] 2021-03-22 Out[facility] Burn[facility], [facility] [id number] 12:34:26 [place] [address] [facility] 2021-03-22 Outpatient Burnett, [facility] [id number] 12:07:40 [place] [address] [facility] 2021-03-22 Outpatient Burnett, [facility] [id number] 11:56:38 [place] [address] [facility] 2021-03-22 Outpatient Burnett, [facility] [id number] 11:36:33 [place] [address] [facility] 2021-03-22 Outpatient Burnett, [facility] [id number] 11:21:57 [place] [address] [facility] 2021-03-22 Outpatient Burnett, [facility] [id number] 11:08:32 [place] [address] [facility] 2021-03-22 Outpatient Burnett, [facility] [id number] 11:07:34 [place] [address] [facility] 2021-03-22 Outpatient Burnett, [facility] [id number] 11:05:30 [place] [address] [facility] 2021-03-22 Outpatient Burnett, [facility] [id number] 11:04:39 [place] [address] [facility] 2021-06-07 2021-06-07 Outpatient R LOREN, [facility] [id number] Univers 15:40:00 15:40:00 CRISTINA [id number] ity o [facility] [place] 2021-06-01 2021-06-01 Outpatient R LOREN, [facility] [id number] Univers 14:40:00 14:40:00 CRISTINA [id number] ity o [facility] [place] 2021-06-01 2021-06-01 Outpatient R LOREN, [facility] [id number] Univers 14:40:00 14:40:00 CRISTINA [facility] 2021-05-16 2021-05-16 Emergency X JHON [facility] ERT [id number] Univers 17:47:00 22:54:00 CAROL ho [facility] 2021-05-16 2021-05-16 Emergency Reg Pruett [facility] [id number] Univers 17:47:00 22:54:00 Carol Vicente [id number] ity of [place] [id number] [facility] SHANIKO [id number] [facility] 084 Branch 2021-05-15 2021-05-15 Telephone Loren, [facility] [id number] Univers 00:00:00 00:00:00 Cristina MADRIGAL [id number] ity of [facility] [id number] [id number] [facility] 059 [facility] 2021-05-04 2021-05-04 Outpatient Shanon VELAZQUEZ [facility] [id number] Univers 10:30:00 10:30:00 [place] [id number] [facility] [place] [facility] 2021-05-04 2021-05-04 Outpatient Shanon VELAZQUEZ [facility] [id number] Univers 10:30:00 10:30:00 [place] [facility] [place] [facility] 2021-05-03 2021-05-03 Outpatient Shanon VELAZQUEZ [facility] [id number] Univers 13:00:00 13:00:00 SPRING [id number] [facility] 2021-05-03 2021-05-03 Outpatient Shanon VELAZQUEZ [facility] [id number] Univers 13:00:00 13:00:00 SPRING [facility] 2021-04-28 2021-04-28 Outpatient Shanon TOMAS [facility] [id number] Univers 13:00:00 13:00:00 LACIE Stallworth [facility] 2021-04-28 2021-04-28 Outpatient Shanon TOMAS [facility] [id number] Univers 13:00:00 13:00:00 LACIE [facility] 2021-04-27 2021-04-27 Outpatient Shanon TOMAS [facility] [id number] Univers 14:30:00 15:19:29 LACIE [facility] 2021-04-27 2021-04-27 Outpatient Shanon TOMAS [facility] [id number] Univers 14:00:00 14:00:00 LACIE Jordan303 [facility] 2021-04-26 2021-04-26 Outpatient R THOM [facility] [id number] Univers 12:30:00 12:30:00 LACIE Jordan302 [facility] 2021-04-26 2021-04-26 [facility] [id number] Univers 12:30:00 12:30:00 LACIE [facility] 2021-04-06 2021-04-06 [facility] [id number] Univers 14:00:00 15:51:55 Visit Lacie Stratton [facility] [id number] i ty of FERRIDAY [id number] Emmanuel as DINORAH?BLEA [id number] Ma shakir TAYLOR [address] [place] [address] MEDICAL OFFICE BUILDING 2021-04-06 2021-04-06 Outpatient R THOM, [facility] [id number] Univers 14:00:00 15:51:55 LACIE ho [facility] 2020-09-12 2020-09-12 Telephone [facility] [id number] 00:00:00 00:00:00 Cristina Madrigal [id number] Todd [id number] [facility] [id number] [facility] 2020-08-01 2020-08-01 Emergency [facility] [id number] 16:53:00 20:11:00 Cassandra Claudio Ismael [id number] [place] [id number] [facility] [id number] 2020-08-01 2020-08-01 [facility] [id number] 00:00:00 00:00:00 [facility] [id number] [facility] [id number] [id number] 2020-07-20 2020-07-20 [facility] [id number] 12:21:31 12:36:31 ne Visit [employer] Enriqueta Chobani [id number] [facility] [id number] [id number] 2020-05-19 2020-05-19 Outpatient [facility] [id number] [facility] 2020-05-11 2020-05-11 Outpatient [facility] [id number] [facility] 2020-05-10 2020-05-10 [id number] 2020-05-09 2020-05-09 Outpatient [facility] [id number] [facility] 2020-05-02 2020-05-02 Outpatient [facility] [id number] [facility] 2020-03-31 2020-03-31 Outpatient [facility] [id number] [facility] 2020-03-21 2020-03-21 Outpatient [facility] [id number] [facility] 2020-03-21 2020-03-21 Outpatient [facility] [id number] [facility] 2020-02-01 2020-02-01 Outpatient [facility] [id number] [facility] 2020-01-29 2020-01-29 Outpatient [facility] [id number] [facility] 2020-01-27 2020-01-27 Outpatient [facility] [id number] [facility] 2020-01-26 2020-01-26 Outpatient [facility] [id number] [facility] 2020-01-07 2020-01-07 Outpatient [facility] [id number] [facility] 2020-01-06 2020-01-06 Outpatient [facility] [id number] [facility] 2019-12-17 2019-12-17 Outpatient [facility] [id number] [facility] 2019-12-14 2019-12-14 Outpatient [facility] [id number] [facility]00 [facility] 2019-07-15 2019-07-15 [facility] [id number] [facility] 13:15:00 13:15:00 [facility] 2019-05-11 2019-05-11 [facility] [id number] 15:30:00 15:30:00 [facility] 2019-05-04 2019-05-04 [facility] [id number] [facility] 09:30:00 09:30:00 [facility] 2019-04-27 2019-04-27 [facility] [id number] 15:30:00 15:30:00 [facility] 2019-04-16 2019-04-16 [facility] [id number] [facility] 13:00:00 13:00:00 [facility] 2019-04-08 2019-04-08 [facility] [id number] [facility] 16:19:00 16:19:00 [facility] 2019-04-07 2019-04-07 [facility] [id number] 08:00:00 08:00:00 [facility] 2019-04-02 2019-04-02 [facility] [id number] [facility] 11:30:00 11:30:00 [facility] 2019-03-31 2019-03-31 [facility] [id number] [facility] 16:13:00 16:13:00 [facility] 2019-03-26 2019-03-26 [facility] [id number] 13:16:00 13:16:00 [facility] 2019-03-26 2019-03-26 [facility] [id number] 12:59:00 12:59:00 [facility] 2019-03-05 2019-03-05 [facility] [id number] 08:38:00 08:38:00 [facility] 2019-03-04 2019-03-04 [facility] [id number] 09:30:00 09:30:00 [facility] 2019-03-03 2019-03-03 [facility] [id number] 16:25:00 16:25:00 t [facility] 2019-02-26 2019-02-26 [facility] [id number] 09:10:00 09:10:00 [facility] 2019-02-13 2019-02-13 [facility] [id number] 13:36:00 13:36:00 t [facility] 2019-02-11 2019-02-11 [facility] [id number] 11:21:00 11:21:00 [facility] Clin[facility] 2019-02-09 2019-02-09 [facility] [id number] 14:30:00 14:30:00 [facility] ent Clinics 2019-02-05 2019-02-05 [facility] [id number] 13:45:00 13:45:00 t [facility] ent Clinics 2019-01-28 2019-01-28 [facility] [id number] 07:54:00 07:54:00 [facility] ent Clinics 2019-01-26 2019-01-26 [facility] [id number] 15:10:00 15:10:00 t [facility] 2019-01-21 2019-01-21 [facility] [id number] 13:00:00 13:00:00 t [facility] 2018-02-03 2018-02-03 [facility] [id number] 16:06:00 16:06:00 t [facility] Results Test Description Test Time Test Comments Results Result Comments Source TROPONIN I 2021-05-17 02:53:26 Test Item Value Reference Range Interpretation Comme nts TROPONIN I (test code = 0.011 ng/mL See_Comment [Au tomated message] The 2347554271) system which ge nerated this result tra nsmitted reference range : <=0.034. The reference r zain was not used to int erpret this result as normal/abnormal . JOSR (test code = JOSR) Reference (Normal) Range (defined by the 99th percentile reference limit): <= 0.034 ng/mL Note: Cardiac troponin begins to rise 3-4 hours after the onset of ischemia. Repeat in 4-6 hours if the sample was drawn within 3-4 hours of the onset of the symptom and found normal. Diagnosis of myocardial injury is made with acute changes in cTn concentrations with at least one serial sample above the 99th percentile upper reference limit (URL), taken together with the patient's clinical presentation. Biotin has been reported to cause a negative bias, interpret results relative to patient's use of biotin. Lab Interpretation Normal (test code = 72029-0) [id number] 00:18:06 Test Item Value Reference Range Interpretation Comments NT-proBNP (test code 215 pg/mL See_Comment H [Autom ated = 8923975351) message] The system which generated this result transmitted reference range : <=125. The reference range was not used to interpret this result as normal/abnormal . JOSR (test code = JOSR) Biotin has been reported to cause a negative bias, interpret results relative to patient's use of biotin. Lab Interpretation Abnormal (test code = 41362-1) [facility] Center[facility]OLIC PANEL (72053)2021-05-17 00:09:25 Test Item Value Reference Range Interpretation Comments NA (test code = 140 mmol/L 135-145 8318988805) K (test code = 4.4 mmol/L 3.5-5.0 2738941359) CL (test code = 110 mmol/L 98-108 H 2891650526) CO2 TOTAL (test code = 24 mmol/L 23-31 6877835711) AGAP (test code = 2-16 6557647242) BUN (test code = 14 mg/dL 7-23 3779872082) GLUCOSE (test code = 117 mg/dL 70-110 H 6427688406) CREATININE (test code = 0.91 mg/dL 0.50-1.04 3193990265) TOTAL BILI (test code = 0.3 mg/dL 0.1-1.8 6328825673) CALCIUM (test code = 9.2 mg/dL 8.6-10.6 0114620653) T PROTEIN (test code = 7.2 g/dL 6.3-8.2 5264546923) ALBUMIN (test code = 4.2 g/dL 3.5-5.0 6086011238) ALK PHOS (test code = 110 U/L 34-122 5651619151) ALTv (test code = 22 U/L 535 1742-6) AST(SGOT) (test code = 22 U/L 13-40 6694775803) eGFR (test code = mL/min/1.73m2 2418215234) JOSR (test code = JOSR) Association of Glomerular Filtration Rate (GFR) and Staging of Kidney Disease* + --+ --+ ------+| GFR (mL/min/1.73 m2) ?| With Kidney Damage ?| ?Without Kidney Damage+ --------+ --------+ +| ?>90 ?| ?Stage one ?| ? Normal ?+ ---+ ---+ -------+| ?60-89 ?| ?Stage two ?| ? Decreased GFR ? + --+ --+ ------+| ?30-59 ?| ?Stage three ?| ? Stage three ? + --+ --+ ------+| ?15-29 ?| ?Stage four ? | ? Stage four ?+ ---+ ---+ -------+| ?<15 (or dialysis) ? ?| ?Stage five ? | ? Stage five ?+ ---+ ---+ -------+ *Each stage assumes the associated GFR level has been in effect for at least three months. ?Stages 1 to 5, with or without kidney disease, indicate chronic kidney disease. Notes: Determination of stages one and two (with eGFR >59mL/min/1.73 m2) requires estimation of kidney damage for at least three months as defined by structural or functional abnormalities of the kidney, manifested by either:Pathological abnormalities or Markers of kidney damage (including abnormalities in the composition of the blood or urine or abnormalities in imaging tests). Lab Interpretation Abnormal (test code = 56623-4) [facility] Center[facility]2022-[facility] 00:09:05 Test Item Value Reference Range Interpretation Comments LIPASE (test code = 7278480781) 173 U/L 0-220 Lab Interpretation (test code = Normal 07727-3) [facility] CenterTR[facility]IN [id number] 23:46:37 Test Item Value Reference Interpretation Comments Range TROPONIN I (test 0.025 ng/mL See_Comment [Automated code = 9165424049) message] The system which generated this result transmitted reference range : <=0.034. The reference range was not used to interpret this result as normal/abnormal . JOSR (test code = Reference (Normal) JOSR) Range (defined by the 99th percentile reference limit): <= 0.034 ng/mL Note: Cardiac troponin begins to rise 3-4 hours after the onset of ischemia. Repeat in 4-6 hours if the sample was drawn within 3-4 hours of the onset of the symptom and found normal. Diagnosis of myocardial injury is made with acute changes in cTn concentrations with at least one serial sample above the 99th percentile upper reference limit (URL), taken together with the patient's clinical presentation. Biotin has been reported to cause a negative bias, interpret results relative to patient's use of biotin. Lab Interpretation Normal (test code = 18786-1) [facility] CenterACTIVATED PARTIAL THRMPLAS [id number] 23:23:51 Test Item Value Reference Range Interpretation Comments APTT Patient (test See_Comment [Automat ed code = 3173-2) message] The system which generated this result transmitted reference range : 23 - 38 Seconds . The reference range was not used to interpr et this result as normal/abnormal . JOSR (test code = JOSR) The [facility] patient population mean normal value for aPTT is 30 seconds. Lab Interpretation Normal (test code = 73641-0) [facility] CenterPROTHROMBIN TIME / [id number] 23:21:49 Test Item Value Reference Range Interpretation Comments PROTIME PATIENT (test See_Comment [Auto mated message] code = 5964-2) The system [facility] generated this result transmitted ref erence range: 12.0 - 1 4.7 Seconds. The re ference range was not u sed to interpret this result as normal/abnor mal. INR (test code = 6301-6) Nor mal INR <1.1; Warfarin Therap eutic range 2.0 to 3. 0 or 2.5 to 3.5, dep ending upon the indica tions. Lab Interpretation (test Normal code = 96238-8) [facility] CenterCBC WITH [id number] 23:18:27 Test Item Value Reference Range Interpretation Comments WBC (test code = See_Comment [Automated message] 6690-2) The system [facility] h generated this result transmitted ref erence range: 4.30 - 1 1.10 10*3/?L. The re ference range was not u sed to interpret this result as normal/abnor mal. RBC (test code = See_Comment [Automated message] 789-8) The system [facility] generated this result transmitted ref erence range: 3.93 - 5 .25 10*6/?L. The re ference range was not u sed to interpret this result as normal/abnor mal. HGB (test code = 12.6 g/dL 11.6-15.0 718-7) HCT (test code = 38.8 % 35.7-45.2 4544-3) MCV (test code = 87.4 fL 80.6-95.5 787-2) MCH (test code = 28.4 pg 25.9-32.8 785-6) MCHC (test code = 32.5 g/dL 31.6-35.1 786-4) RDW-SD (test code 44.0 fL 39.0-49.9 = 93286-2) RDW-CV (test code 13.7 % 12.0-15.5 = 788-0) PLT (test code = See_Comment [Automated message] 777-3) The system [facility] generated this result transmitted ref erence range: 166 - 35 8 10*3/?L. The re ference range was not u sed to interpret this result as normal/abnor mal. MPV (test code = 10.6 fL 9.5-12.9 75221-2) NRBC/100 WBC (test See_Comment [Automat ed message] code = 1427234969) The syste m which generated this result transmitted ref erence range: 0.0 - 10 .0 /100 WBCs. The refer ence range was not u sed to interpret this result as normal/abnor mal. NRBC x10^3 (test <0.01 See_Comment [Automated message] code = 1029806751) The syste m which generated this result transmitted ref erence range: 10*3/?L. The reference range was not used to interpr et this result as normal/abnormal . GRAN MAT (NEUT) % 66.5 % (test code = 770-8) IMM GRAN % (test 0.40 % code = 0029587265) LYMPH % (test code 28.7 % = 736-9) MONO % (test code 3.6 % = 5905-5) EOS % (test code = 0.6 % 713-8) BASO % (test code 0.2 % = 706-2) GRAN MAT 6.52 10*3/uL 1.88-7.09 x10^3(ANC) (test code = 1564634601) IMM GRAN x10^3 0.04 10*3/uL 0.00-0.06 (test code = 4657139694) LYMPH x10^3 (test 2.81 10*3/uL 1.32-3.29 code = 731-0) MONO x10^3 (test 0.35 10*3/uL 0.33-0.92 code = 742-7) EOS x10^3 (test 0.06 10*3/uL 0.03-0.39 code = 711-2) BASO x10^3 (test <0.03 0.01-0.07 code = 704-7) [facility]"
[2021-06-01] MEDS ORDERED: ONDANSETRON 4 MG/2 ML VIAL ONE (14:45)
[2021-06-01] MEDS ORDERED: MORPHINE 4 MG/ML SYR ONE ×2 (14:45→20:10)
--- NOTE | 2021-06-01 15:02 | RAD REPORT ---
EXAM DESCRIPTION: CT - Head Brain Wo Cont - 06/01/2021 2:49 pm CLINICAL HISTORY: HEADACHE COMPARISON: Head Brain Wo Cont dated 05/09/2021; Ct Stroke Brain Wo Cont dated 05/09/2017 TECHNIQUE: Axial 5 mm thick images of the head were obtained without IV contrast. All CT scans are performed using dose optimization technique as appropriate and may include automated exposure control or mA/KV adjustment according to patient size. FINDINGS: No intracranial hemorrhage, mass, edema or shift of mid-line structures. No acute infarcti on changes seen. No abnormal extra-axial fluid collections. Ventricles are normal. Physiologic calcif ications are present along the falx. Mastoid air cells and visualized portions of the paranasal sinuses are clear. No acute bony findings. Intracranial findings are similar to the prior studies. IMPRESSION: Negative non-contrast CT head examination.
--- NOTE | 2021-06-01 15:17 | RAD REPORT ---
EXAM DESCRIPTION: RAD - Chest Single View - 06/01/2021 3:11 pm CLINICAL HISTORY: CHEST PAIN COMPARISON: Portable 05/09/2021 TECHNIQUE: AP portable chest image was obtained 06/01/2021 3:11 pm . FINDINGS: No focal lung parenchymal process. Under penetrated portable technique and large body habi tus result in increased with opacification over each lower lung field. An acute lung parenchymal proc ess is not seen. Heart and vasculature are normal. No measurable pleural effusion and no pneumothorax . No acute bony abnormality seen. No acute aortic findings suspected. IMPRESSION: No acute cardiopulmonary process.
[2021-06-01 15:26] LABS: Hematocrit 33.8 % (36.0-45.0); Lymphocytes % 25.3 % (15.3-44.8); MPV 8.1 fL (7.6-11.3)
[2021-06-01 15:29] LABS: Protime INR 1.04
[2021-06-01 15:57] LABS: ALT/SGPT 25 U/L (12-78); AST/SGOT 18 U/L (15-37); Albumin 3.3 g/dL (3.4-5.0); Alkaline Phosphatase 106 U/L (45-117); BUN Blood Urea Nitrogen 8 mg/dL (7-18); Bicarbonate 25 mmol/L (21-32); Bilirubin Direct 0.1 mg/dL (0-0.2); Bilirubin Total 0.3 mg/dL (0.2-1.0); Glucose Level 131 mg/dL (74-106); NT PRO-BNP 390 pg/mL (<125); Potassium 3.9 mmol/L (3.5-5.1); Protein, Total 7.4 g/dL (6.4-8.2); Sodium Level 144 mmol/L (136-145)
[2021-06-01 16:03] LABS: Troponin High Sensitivity 154.4 pg/mL (<58.9)
--- NOTE | 2021-06-01 17:04 | RAD REPORT ---
EXAM DESCRIPTION: CT - Angio Aorta For Dissection - 06/01/2021 4:40 pm CLINICAL HISTORY: back pain;Chest pain COMPARISON: None. TECHNIQUE: Dynamically enhanced 3 mm thick images of the chest, abdomen, and upper pelvis were obtai joann during administration of approximately 150mL Isovue 370 IV contrast. Sagittal and coronal reconst ruction images were generated using MIP and reviewed. Exam utilizes a protocol to evaluate entire cou rse of the aorta. All CT scans are performed using dose optimization technique as appropriate and may include automated exposure control or mA/KV adjustment according to patient size. FINDINGS: Aorta is normal in diameter with no dissection or other acute aortic findings. Reconstruct ion images show no significant findings. Aortic arch is 3 vessel configuration with no origins stenos is. Vertebral artery origins are unremarkable. Subclavian arteries as imaged are unremarkable. Most o f the right subclavian artery is obscured by the dense contrast within the subclavian vein. Pulmonary arteries are normal as well. Heart size is prominent. No pericardial effusion or pericardia l thickening. Left ventricular myocardial thickness not outside of range of normal. No mass or infiltrate in the lung parenchyma. No pleural thickening, pleural effusion or pneumothorax . No abnormal mediastinal or hilar mass or lymphadenopathy seen. No chest wall mass or abnormal axillar y lymphadenopathy. Celiac, SMA and renal arteries show no suspicious findings. Solid abdominal viscera and bowel show no acute findings. Liver shows diffuse fatty infiltration. Postsurgical changes noted to stomach. Appen lucas is normal. Uterus is absent. Ovaries are absent, atrophic or obscured by adjacent isodense bowel. No mass or abnormal lymphadenopathy. No free air, free fluid or inflammatory stranding. No urinary bladder abnormality. IMPRESSION: Negative CT scan of the aorta. No other significant findings on chest, abdomen and upper pelvis examination.Nonacute findings detail ed in the body of the report.
--- NOTE | 2021-06-01 17:21 | EDPHYS ---
Physician Documentation [facility] Name: hCe Helton Age: 55 yrs Sex: Female : 1965 Arrival Date: 06/01/2021 Time: 13:08 Bed 24 Private MD: ED Physician Michele Adams HPI: 06/01 14:30 This 55 yrs old Black Female presents to ER via Ambulatory with complaints of Low Back cp Pain, Chest Pain, Headache. 14:30 The patient or guardian reports chest pain that is located primarily in the anterior cp chest wall. 14:30 The pain radiates to the back. Onset: this morning. Duration: The patient or guardian cp reports a single episode, that is still ongoing. The patient has experienced similar episodes in the past, chronically. 14:30 Patient reports back pain with recent fall "a few days ago". 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 - Social history:: Smoking status: Patient denies any tobacco usage or history of. ROS: 14:35 Constitutional: Negative for body aches, chills, fever, poor PO intake. cp 14:35 Eyes: Negative for injury, pain, redness, and discharge. cp 14:35 ENT: Negative for drainage from ear(s), ear pain, sore throat, difficulty swallowing, difficulty handling secretions. 14:35 Cardiovascular: Positive for chest pain, Negative for edema, palpitations. 14:35 Respiratory: Positive for shortness of breath, Negative for cough, wheezing. 14:35 Abdomen/GI: Negative for abdominal pain, nausea, vomiting, and diarrhea. 14:35 Back: Positive for pain at rest, pain with movement. 14:35 Neuro: Positive for headache, Negative for altered mental status, syncope, weakness. 14:35 All other systems are negative. Exam: 13:25 ECG was reviewed by the Attending Physician. cp 14:40 Constitutional: The patient appears in no acute distress, alert, awake, cp non-diaphoretic, non-toxic, well developed, well nourished, obese. 14:40 Head/Face: Normocephalic, atraumatic. cp 14:40 Eyes: Periorbital structures: appear normal, Pupils: equal, round, and reactive to light and accomodation, Extraocular movements: intact throughout, Conjunctiva: normal, no exudate, no injection, Sclera: no appreciated abnormality, Lids and lashes: appear normal, bilaterally. 14:40 ENT: External ear(s): are unremarkable, Nose: is normal, Mouth: Lips: moist, Oral mucosa: pink and intact, moist, Posterior pharynx: Airway: no evidence of obstruction, patent. 14:40 Neck: ROM/movement: is normal, is supple, without pain, no range of motions limitations. 14:40 Chest/axilla: Inspection: normal. 14:40 Cardiovascular: Rate: normal, Rhythm: regular, Edema: is not appreciated, JVD: is not appreciated. 14:40 Respiratory: the patient does not display signs of respiratory distress, Respirations: normal, no use of accessory muscles, no retractions, labored breathing, is not present, Breath sounds: are clear throughout, no decreased breath sounds, no stridor, no wheezing. 14:40 Abdomen/GI: Inspection: obese Palpation: abdomen is soft and non-tender, in all quadrants. 14:40 Back: CVA tenderness, is absent, vertebral tenderness, is not appreciated. 14:40 Skin: cellulitis, is not appreciated, no rash present. 14:40 Neuro: Orientation: to person, place \\T\\ time. Mentation: is normal, Motor: moves all fours, strength is normal, Sensation: is normal. Vital Signs: 13:24 BP 182 / 90; Pulse 77; Resp 17; Temp 97.0(TE); Pulse Ox 98% on R/A; Weight 121.56 kg; ab2 Height 5 ft. 3 in. (160.02 cm); Pain 7/10; 16:15 BP 165 / 71; Pulse 80; Resp 23; Pulse Ox 96% on R/A; ld1 17:44 BP 166 / 84; Pulse 90; Resp 18; Pulse Ox 96% on R/A; ld1 21:29 BP 132 / 75; Pulse 88; Resp 18; Temp 99.0; Pulse Ox 98% on R/A; Pain 2/10; oscar 21:47 BP 147 / 89; Pulse 88; Resp 16; Pulse Ox 99% on R/A; oscar 13:24 Body Mass Index 47.47 (121.56 kg, 160.02 cm) ab2 MDM: 14:25 Patient medically screened. cp 15:00 Differential diagnosis: abnormal EKG, acute myocardial infarction, acute pericarditis, cp pulmonary embolus, stable angina, thoracic aortic disection, unstable angina. 17:20 Data reviewed: vital signs, nurses notes, lab test result(s), EKG, radiologic studies, cp CT scan, plain films. 17:20 Test interpretation: by ED physician or midlevel provider: ECG, plain radiologic cp studies. Physician consultation: True Vazquez MD was called at 17:20, was contacted at 17:20, regarding admission, to the telemetry unit. patient's condition. 06/01 14:29 Order name: Basic Metabolic Panel; Complete Time: 16:07 cp 06/01 16:07 Interpretation: Normal except: CL 113; GLUC 131. cp 06/01 14:29 Order name: CBC with Diff; Complete Time: 16:07 cp 06/01 16:07 Interpretation: Normal except: HGB 11.3; HCT 33.8. cp 06/01 14:29 Order name: LFT's; Complete Time: 16:07 cp 06/01 14:29 Order name: Magnesium; Complete Time: 16:07 cp 06/01 14:29 Order name: NT PRO-BNP; Complete Time: 16:07 cp 06/01 14:29 Order name: PT-INR; Complete Time: 16:07 cp 06/01 14:29 Order name: Troponin HS; Complete Time: 16:07 cp 06/01 16:07 Interpretation: Abnormal: Troponin HS 154.4. cp 06/01 17:32 Order name: SARS-COV-2 RT PCR (Document "Date of Onset" if Symptomatic) em1 06/01 18:52 Order name: Basic Metabolic Panel EDAR 06/01 18:52 Order name: Basic Metabolic Panel EDAR 06/01 18:52 Order name: CBC with Automated Diff EDMS 06/01 18:52 Order name: CBC with Automated Diff EDMS 06/01 18:52 Order name: Lipid Profile EDMS 06/01 18:52 Order name: Lipid Profile EDMS 06/01 13:28 Order name: EKG - Nurse/Tech; Complete Time: 13:28 ab2 06/01 14:29 Order name: XRAY Chest (1 view); Complete Time: 16:07 cp 06/01 14:29 Order name: EKG; Complete Time: 14:30 cp 06/01 14:29 Order name: Cardiac monitoring; Complete Time: 14:42 cp 06/01 14:29 Order name: IV Saline Lock; Complete Time: 15:18 cp 06/01 14:29 Order name: CT Head Brain wo Cont; Complete Time: 16:07 cp 06/01 16:08 Interpretation: Report reviewed. cp 06/01 14:39 Order name: CT Aorta for Dissection; Complete Time: 17:14 cp 06/01 18:52 Order name: Heart Healthy EDMS 06/01 18:52 Order name: Echo with Doppler EDMS 06/01 18:52 Order name: Troponin High Sensitivity EDMS 06/01 18:52 Order name: Troponin High Sensitivity EDMS 06/01 18:52 Order name: Troponin High Sensitivity EDMS 06/01 14:29 Order name: Labs collected and sent; Complete Time: 15:18 cp 06/01 14:29 Order name: O2 Per Protocol; Complete Time: 14:42 cp 06/01 14:29 Order name: O2 Sat Monitoring; Complete Time: 14:42 cp EC:25 Rate is 92 beats/min. Rhythm is regular. WV interval is normal. QRS interval is normal. cp QT interval is prolonged. T waves are Inverted in lead aVL. Interpreted by me. Reviewed by me. Administered Medications: 15:18 Drug: morphine 4 mg Route: IVP; Site: right forearm; ld1 15:18 Drug: Zofran (Ondansetron) 4 mg Route: IVP; Site: right forearm; ld1 17:28 Drug: Aspirin Chewable Tablet 324 mg Route: PO; ld1 17:28 Drug: Lovenox (enoxaparin) 1 mg/kg Route: Sub-Q; Site: abdomen; ld1 Disposition: 19:17 Co-signature as Attending Physician, Michele Adams MD I agree with the assessment and kdr plan of care. Disposition Summary: 06/01/21 17:21 Hospitalization Ordered Hospitalization Status: Inpatient Admission cp Provider: True Vazquez cp Location: Telemetry/MedSurg (Inpatient) cp Condition: Stable cp Problem: new cp Symptoms: have improved cp Bed/Room Type: Standard cp Room Assignment: 218(06/01/21 21:28) cg Diagnosis - Chest pain, unspecified cp Forms: - Medication Reconciliation Form cp - SBAR form cp Signatures: Dispatcher [employer] EDMS Michele Adams MD MD kdr Page, Corey, PA PA cp Stephanie Hernandez RN RN cg Marlyn Yadav RN RN ld1 Nichole Maxwell RN RN Doyle Sheffield Corrections: (The following items were deleted from the chart) 21:28 17:21 cp cg
--- NOTE | 2021-06-01 17:21 | ER ---
Nurse's Notes [facility] Name: Che Helton Age: 55 yrs Sex: Female : 1965 Arrival Date: 06/01/2021 Time: 13:08 Bed 24 Private MD: Diagnosis: Chest pain, unspecified Presentation: 06/01 13:24 Chief complaint: Patient states: "I woke up this morning with a bad headache, then ab2 began having chest pain. I also fell a few days ago and my back is hurting." Pt denies SOB. Coronavirus screen: Vaccine status: Patient reports receiving the 2nd dose of the covid vaccine. Client denies travel out of the [place] in the last 14 days. At this time, the client does not indicate any symptoms associated with coronavirus-19. Ebola Screen: Patient negative for fever greater than or equal to 101.5 degrees Fahrenheit, and additional compatible Ebola Virus Disease symptoms Patient denies exposure to infectious person. Patient denies travel to an Ebola-affected area in the 21 days before illness onset. No symptoms or risks identified at this time. Initial Sepsis Screen: Does the patient meet any 2 criteria? No. Patient's initial sepsis screen is negative. Does the patient have a suspected source of infection? No. Patient's initial sepsis screen is negative. Risk Assessment: Do you want to hurt yourself or someone else? Patient reports no desire to harm self or others. Onset of symptoms is unknown. 13:24 Method Of Arrival: Ambulatory ab2 13:24 Acuity: NELY 3 ab2 Triage Assessment: 13:27 General: Appears in no apparent distress. uncomfortable, Behavior is calm, cooperative, ab2 appropriate for age. Pain: Complains of pain in head and chest Pain radiates to left arm Pain currently is 7 out of 10 on a pain scale. Neuro: No deficits noted. Level of Consciousness is awake, alert, obeys commands, Oriented to person, place, time, situation, Appropriate for age Manager Games are equal bilaterally Moves all extremities. Gait is steady, Speech is normal, Facial symmetry appears normal, Reports headache. Cardiovascular: Reports chest pain, Denies shortness of breath, Patient's skin is warm and dry. Rhythm is sinus rhythm. Respiratory: No deficits noted. Airway is patent Respiratory effort is even, unlabored, Respiratory pattern is regular, symmetrical. GI: No deficits noted. No signs and/or symptoms were reported involving the gastrointestinal system. : No deficits noted. No signs and/or symptoms were reported regarding the genitourinary system. Derm: Skin is intact, Skin is pink, warm \\T\\ dry. 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 - Social history:: Smoking status: Patient denies any tobacco usage or history of. Screenin:19 Abuse screen: Denies threats or abuse. Denies injuries from another. Nutritional ld1 screening: No deficits noted. Tuberculosis screening: No symptoms or risk factors identified. Fall Risk None identified. Assessment: 15:19 General: Appears in no apparent distress. comfortable, Behavior is calm, cooperative, ld1 appropriate for age. Pain: Complains of pain in back and chest Pain does not radiate. Pain currently is 6 out of 10 on a pain scale. Quality of pain is described as throbbing, Pain began gradually, Is continuous. Neuro: Level of Consciousness is awake, alert, obeys commands, Oriented to person, place, time, situation. Cardiovascular: Capillary refill < 3 seconds Patient's skin is warm and dry. Rhythm is sinus rhythm. Respiratory: Airway is patent Respiratory effort is even, unlabored. GI: Abdomen is round non-distended, obese. : No signs and/or symptoms were reported regarding the genitourinary system. EENT: No signs and/or symptoms were reported regarding the EENT system. Derm: No signs and/or symptoms reported regarding the dermatologic system. Musculoskeletal: Reports pain in back. 17:44 Reassessment: Patient appears in no apparent distress at this time. No changes from ld1 previously documented assessment. Patient and/or family updated on plan of care and expected duration. Pain level reassessed. Patient is alert, oriented x 3, equal unlabored respirations, skin warm/dry/pink. 21:23 Reassessment: Refer to [facility] for VS and additional charting as [facility] and the ER oscar charting do not communicate. 21:25 Reassessment: I recv'd report on the pt \\T\\ 1900, from the mid-shift nurse. The pt is to oscar be admitted to the hospital, but no bed is available, at present. The pt was medicated for her OLSON and back pain \\T\\ 2011. She is anxious to "get a room", but I cautioned her, as it may take some time. She is compliant, but anxious to have her own room, upstairs. 21:30 Reassessment: The pt has been assigned a bed upstairs, 218, and registration has been oscar called. Report will be called yesenia. 21:48 Reassessment: I am calling report on the pt, to the 2nd floor. oscar 21:54 Reassessment: The pt has been "flipped" and report called. The pt will be taken up via oscar w/c when there is time. Vital Signs: 13:24 BP 182 / 90; Pulse 77; Resp 17; Temp 97.0(TE); Pulse Ox 98% on R/A; Weight 121.56 kg; ab2 Height 5 ft. 3 in. (160.02 cm); Pain 7/10; 16:15 BP 165 / 71; Pulse 80; Resp 23; Pulse Ox 96% on R/A; ld1 17:44 BP 166 / 84; Pulse 90; Resp 18; Pulse Ox 96% on R/A; ld1 21:29 BP 132 / 75; Pulse 88; Resp 18; Temp 99.0; Pulse Ox 98% on R/A; Pain 2/10; oscar 21:47 BP 147 / 89; Pulse 88; Resp 16; Pulse Ox 99% on R/A; oscar 13:24 Body Mass Index 47.47 (121.56 kg, 160.02 cm) ab2 ED Course: 13:08 Patient arrived in ED. as 13:26 Triage completed. ab2 13:28 Arm band placed on right wrist. ab2 14:22 Wang Blackmon PA is PHCP. cp 14:22 Michele Adams MD is Attending Physician. cp 14:47 Marlyn Yadav, RN is Primary Nurse. ld1 14:51 CT Head Brain wo Cont In Process Unspecified. EDMS 15:13 XRAY Chest (1 view) In Process Unspecified. EDMS 15:19 Patient has correct armband on for positive identification. Placed in gown. Bed in low ld1 position. Call light in reach. Side rails up X2. cigarette filter inspector on. Pulse ox on. NIBP on. Door closed. Noise minimized. Warm blanket given. 15:19 No provider procedures requiring assistance completed. Inserted saline lock: 20 gauge ld1 in right forearm, using aseptic technique. Patient maintains SpO2 saturation greater than 95% on room air. 16:43 CT Aorta for Dissection In Process Unspecified. EDMS 17:20 True Vazquez MD is Hospitalizing Provider. cp 17:37 SARS-COV-2 RT PCR (Document "Date of Onset" if Symptomatic) Sent. ld1 Administered Medications: 15:18 Drug: morphine 4 mg Route: IVP; Site: right forearm; ld1 15:18 Drug: Zofran (Ondansetron) 4 mg Route: IVP; Site: right forearm; ld1 17:28 Drug: Aspirin Chewable Tablet 324 mg Route: PO; ld1 17:28 Drug: Lovenox (enoxaparin) 1 mg/kg Route: Sub-Q; Site: abdomen; ld1 Outcome: 17:21 Decision to Hospitalize by Provider. cp 21:24 Condition: stable oscar 22:13 Patient left the ED. tw5 Signatures: Dispatcher [employer] Rowan Castaneda Corey, DANA PA cp Marlyn Yadav, RN RN Alexia Damon tw5 Nichole Maxwell RN RN bo Bleininger, Alexis ab2
[2021-06-01] MEDS ORDERED: ENOXAPARIN 100 MG/ML SYR SQ ONE (17:28)
[2021-06-01] MEDS ORDERED: ASPIRIN 81 MG CHEWABLE TABLET ONE (17:28)
[2021-06-01] MEDS ORDERED: ALPRAZOLAM 0.25 MG TABLET PO PRN (18:46)
[2021-06-01] MEDS: ENOXAPARIN 40 MG/0.4 ML SQ SCH (20:00)
[2021-06-01] MEDS: MORPHINE 4 MG/ML SYR IV PRN (20:08)
[2021-06-01] MEDS: METOPROLOL TAR 50 MG TAB PO SCH (22:53)
[2021-06-01 23:32] VITALS: BMI 47.2
[2021-06-02] MEDS: MORPHINE 4 MG/ML SYR IV PRN ×3 (00:28→11:08)
[2021-06-02 04:37] VITALS: O2SAT 99
[2021-06-02 05:48] LABS: Absolute Lymphocytes (CBC) 2.4 K/uL (0.7-4.9); Hematocrit 31.5 % (36.0-45.0); Lymphocytes % 34.8 % (15.3-44.8); MPV 8.6 fL (7.6-11.3); RBC Red Blood Cell Count 3.65 M/uL (3.86-4.86)
[2021-06-02 06:12] LABS: Potassium 3.7 mmol/L (3.5-5.1)
[2021-06-02 06:16] LABS: Troponin High Sensitivity 140.2 pg/mL (<58.9)
--- NOTE | 2021-06-02 07:47 | EKG ---
Test Date: 2021-06-01 Test Time: 13:18:32 Administrative Assistant Office Manager: MEASUREMENT RESULTS: Intervals: Rate: 92 UT: 174 QRSD: 86 QT: 410 QTc: 507 [place]: P: 66 UT: 174 QRS: -11 T: 62 INTERPRETIVE STATEMENTS: Sinus rhythm with occasional premature ventricular complexes Right atrial enlargement Voltage criteria for left ventricular hypertrophy Prolonged QT Abnormal ECG Compared to ECG 05/10/2021 09:39:19 Atrial abnormality now present Prolonged QT interval now present ST (T wave) deviation no longer present Electronically Signed On 06-02-21 07:46:05 CDT by Giovanni Brewster
[2021-06-02] MEDS ORDERED: ACETAMIN/CAFFEINE/BUTALB TAB PO ONE (08:53)
[2021-06-02] MEDS ORDERED: lisinopriL 10 MG TAB PO SCH (09:00)
[2021-06-02] MEDS ORDERED: ASPIRIN EC 81 MG TAB PO SCH (09:00)
[2021-06-02] MEDS: ENOXAPARIN 40 MG/0.4 ML SQ SCH (09:06)
[2021-06-02] MEDS: METOPROLOL TAR 50 MG TAB PO SCH (09:22)
[2021-06-02] MEDS ORDERED: ACETAMIN/CAFFEINE/BUTALB TAB PO PRN (12:00)
--- NOTE | 2021-06-02 12:31 | ECHO ---
HEIGHT: 5 ft 3 in WEIGHT: 267 lb 0 oz DATE OF STUDY: 06/02/[address]: True Vazquez MD 2-DIMENSIONAL: YES M.MODE: YES DOPPLER: YES COLOR FLOW: YES TDS: NO PORTABLE: YES DEFINITY: NO BUBBLE STUDY: NO DIAGNOSIS: CHEST PAIN RULE OUT ACS CARDIAC HISTORY: CATHERIZATION:YES SURGERY: NO PROSTHETIC VALVE: NO PACEMAKER: NO MEASUREMENTS (cm) DIASTOLIC (NORMALS) SYSTOLIC (NORMALS) IVSd 1.1 (0.6-1.2) LA Diam 2.8 (1.9-4.0) LVEF 71% LVIDd 3.9 (3.5-5.7) LVIDs 2.3 (2.0-3.5) %FS 40% LVPWd 1.2 (0.6-1.2) Ao Diam 2.4 (2.0-3.7) 2 DIMENSIONAL ASSESSMENT: RIGHT ATRIUM: NORMAL LEFT ATRIUM: NORMAL RIGHT VENTRICLE: NORMAL LEFT VENTRICLE: NORMAL TRICUSPID VALVE: NORMAL MITRAL VALVE: NORMAL PULMONIC VALVE: NORMAL AORTIC VALVE: NORMAL PERICARDIAL EFFUSION: NONE AORTIC ROOT: NORMAL LEFT VENTRICULAR WALL MOTION: NORMAL DOPPLER/COLOR FLOW: NORMAL COMMENTS: NORMAL 2D ECHOCARDIOGRAM WITH DOPPLER. NO WALL MOTION ABNORMALITY. NO EFFUSION. TECHNOLOGIST: Michael PRYOR
[2021-06-02 16:55] VITALS: BP 151/59; TEMP 96.8
== END 2021-06-02 17:50 | disposition home or self-care (01) ==
LOC: ER 13:06 → ERHOLD 18:46 → 2ND 21:37
PROVIDERS: ADMIT Hospitalist; ATTEND Hospitalist
DX: R07.9 Chest pain, unspecified (principal); M54.50 Low back pain, unspecified; R51.9 Headache, unspecified; I10 Essential (primary) hypertension; E11.9 Type 2 diabetes mellitus without complications; I25.2 Old myocardial infarction; E78.5 Hyperlipidemia, unspecified; F31.9 Bipolar disorder, unspecified; F32.A Depression, unspecified; F90.9 Attention-deficit hyperactivity disorder, unspecified type; Z86.73 Personal history of transient ischemic attack (TIA), and cerebral infarction without residual deficits; Z98.84 Bariatric surgery status; Z88.0 Allergy status to penicillin; Z88.2 Allergy status to sulfonamides; Z20.822 Contact with and (suspected) exposure to COVID-19
CPT/HCPCS: 93005; 93306; 85025 ×2; 80048 ×2; 36415; 83735; 85610; 80061; 80076; 84484 ×3; 83880; 70450; 71275; 74175; 71045; 96375; 96372; 96374; 99285; U0003; Q9967; J1650 ×2; J2405; G0378 ×3

== ENCOUNTER 2021-07-07 20:22 | Observation (INO) | payer OTHER ==
--- OUTSIDE RECORDS SUMMARY | 2021-07-07 20:26 | XMS REPORT | Continuity of Care Document ---
:1965 Author Organization [facility] t Address [address] [place] [address] [place] [address] Care Team Providers Name Role Phone Chayito Dickey Primary Care Physician Jean Burnett Attending Clinician Unavailable Chayito Dickey Attending Clinician Han DOTY Attending Clinician Shanon Fragoso Attending Clinician Nickie Schulz MD Attending Clinician Payers Payer Name Policy Type Policy Number Effective Date Expiration Date S ource Problems Condition Condition Condition Status Onset Resolution [...] Added automatic ally from request for surgery [id number] LEN LEN Disease Active Univers (obstructi (obstructi 5-19 it y of ve sleep ve sleep 00:00: [place] apnea) apnea) 00 Medical Branch Essential Essential Disease Active Uni vers hypertensi hypertensi 1-21 it y of on on 00:00: Medical Branch Dyslipidem Dyslipidem Disease Active U nivers ia ia -21 ity of 00:00: Medical Branch Coronary-m Coronary-m Disease Active U nivers yocardial yocardial -21 ity of bridge bridge 00:00: [place] [facility] Type 2 Type 2 Disease Active Univers diabetes diabetes 1-21 ity of mellitus mellitus 00:00: [place] without without 00 Medical complicati complicati Br anch on, on, without without long-term long-term current current use of use of insulin insulin Tobacco Tobacco Disease Active Univers abuse abuse 1-21 ity of 00:00: Medical Branch Morbid Morbid Disease Active 2015-02 Univers obesity obesity 1-16 ity of with body with [facility] 00[facility]00[facility] index mass index 00 Me dical of of Branch 40.0-49.9 40.0-49.9 Chest pain Chest pain Disease Active 2015-02 U nivers 1-15 ity of 00:00: Medical Branch Aphasia Aphasia Disease Active Univers 7-07 ity of 00:00: [place] [facility] Right-side Right-side Disease Active U nivers d muscle d muscle 08-31 ity of weakness weakness 00:00: [place] [facility] H/O H/O Disease Active Univers 08-30 ity of section section 00:00: [place] [facility] History of History of Disease Active U nivers [place] 7 ity of (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 Medical infarction infarction Br anch ) ) Metabolic Metabolic Disease Active Uni vers syndrome syndrome -06 ity of 00:00: [place] 00 Medical Branch Acute CVA Acute CVA Disease Active Uni vers (cerebrova (cerebrova 08-29 it y of scular scular 00:00: [place] accident) accident) 00 [facility] Branch Allergies, Adverse Reactions, Alerts Allergy Allergy Status Severity Reaction(s) Onset Inactive Treating Comm ents Source Name Type Date Date Clinician Sulfa Propensi Active Anaphylaxis 2015-02 Uni vers (Sulfona ty to -15 ity of mide adverse 00:00: [place] Antibiot reaction 00 Medica l ics) s Branch Morphine Propensi Active Itching 2015-02 Unive rs ty to 15 ity of adverse 00:00: [place] reaction 00 Medical s Branch Sulfa Adverse Active Info Not Common Reaction Available [facility] Social History Social Habit Start Date Stop Date Quantity Comments Source History of tobacco Cigarette Smoker University of use [facility] Exposure to 2021-06-25 2021-07-05 Not sure University of SARS-CoV-2 (event) 00:00:00 14:31:00 [facility] Alcohol intake 2021-07-05 2021-07-05 0 /d University of 00:00:00 00:00:00 [place] [facility] History SDOH 2019-12-09 2019-12-09 5 University o f Financial 00:00:00 00:00:00 [place] [facility] History SDNM Food 2019-12-09 2019-12-09 1 Univers ity of Worry 00:00:00 00:00:00 [place] [facility] History SDNM Food 2019-12-09 2019-12-09 1 Univers ity of Scarcity 00:00:00 00:00:00 [place] [facility] History SDOH 2019-12-09 2019-12-09 2 University o f Transport Med 00:00:00 00:00:00 [place] Medic al Branch History SDOH 2019-12-09 2019-12-09 2 University o f Transport Non-Med 00:00:00 00:00:00 [facility] Branch Cigarettes smoked 2016-01-10 2016-01-10 Univers ity of current (pack per 00:00:00 00:00:00 [facility]) - Reported Branch Cigarette 2016-01-10 2016-01-10 University of pack-years 00:00:00 00:00:00 [facility] Tobacco use and 2016-01-10 2016-01-10 Never used Universit y of exposure 00:00:00 00:00:00 [facility] Sex [birth year] At [birth year] Universit y of 00:00:00 00:00:00 [facility] Smoking Status Start Date Stop Date Source Current every day smoker 2016-01-10 00:00:00 Uni versity of [facility] Medications Ordered Filled Start Stop Current Ordering Indication Dosage Frequency Signature Comments Components Source Medication Medication Date Date Medication? Clinician (SIG) Name Name metoprolol Yes 25mg Take 25 mg U nivers tartrate 25 4-08 by mouth 2 it y of mg tablet 00:00: (two) [place] 00 times Medical daily. Branch butalbital- Yes Univer s acetaminoph 4-08 ity of en-caff 00:00: [place] 50-325-40 00 Medical mg tablet Branch ALPRAZolam Yes .25mg Take 0.25 U nivers 0.25 mg 4-08 mg by ity of tablet 00:00: mouth 3 [place] 00 (three) Medical times [place] daily as needed. metoprolol Yes 25mg Take 25 mg U nivers tartrate 25 4-08 by mouth 2 it y of mg tablet 00:00: (two) [place] 00 times Medical daily. Branch butalbital- Yes Univer s acetaminoph 4-08 ity of en-caff 00:00: [place] 50-325-40 00 Medical mg tablet Branch ALPRAZolam Yes .25mg Take 0.25 U nivers 0.25 mg 4-08 mg by ity of tablet 00:00: mouth 3 [place] 00 (three) Medical times [place] daily as needed. metFORMIN Yes [id number] 1000mg Take 1 Univers 1,000 mg 2-10 tablet by ity of tablet 00:00: mouth 2 [place] 00 (two) Medical times [place] daily with meals. atorvastati Yes [id number] 40mg Take 1 Univers n (LIPITOR) 2-10 tablet by ity of 40 mg 00:00: mouth at [place] tablet 00 bedtime. Medical Branch metFORMIN Yes [id number] 1000mg Take 1 Univers 1,000 mg 2-10 tablet by ity of tablet 00:00: mouth 2 00 (two) Medical times Branch daily with meals. atorvastati Yes [id number] 40mg Take 1 Univers n (LIPITOR) 2-10 tablet by ity of 40 mg 00:00: mouth at [place] tablet 00 bedtime. Medical Branch OXcarbazepi Yes Univer s ne 300 mg 2-07 ity of tablet 00:00: [place] [facility] QUEtiapine Yes Univers 200 mg 2-07 ity of tablet 00:00: [place] [facility] OXcarbazepi Yes Univer s ne 300 mg 2-07 ity of tablet 00:00: Medical Branch QUEtiapine Yes Univers 200 mg 2-07 ity of tablet 00:00: [place] [facility] Diclofenac Yes APPLY Univer s [...] TABLET BY ity of tablet 00:00: MOUTH 00 DAILY FOR Medical HYPERTENSI Branch ON amLODIPine Yes TAKE 1 Unive rs 10 mg 1-21 TABLET BY ity of tablet 00:00: MOUTH 00 DAILY FOR Medical HYPERTENSI Branch ON cyclobenzap 2020-02 Yes TAKE 1 Univ ers rine 10 mg 1-30 TABLET BY ity of tablet 00:00: MOUTH 00 TWICE Medical DAILY FOR Branch 14 DAYS cyclobenzap 2020-02 Yes TAKE 1 Univ ers rine 10 mg 1-30 TABLET BY ity of tablet 00:00: MOUTH [place] 00 TWICE Medical DAILY FOR Branch 14 DAYS triamcinolo 2020-02 Yes [id number] Apply to Univers ne 0-14 area(s) 2 ity of acetonide 00:00: (two) [place] 0.1 % cream 00 times Medical daily. Branch triamcinolo 2020-02 Yes [id number] Apply to Univers ne 0-14 area(s) 2 ity of acetonide 00:00: (two) [place] 0.1 % cream 00 times Medical daily. Branch triamterene 2020-02 Yes [id number] 1{capsu Take 1 Univers -hydrochlor 0-12 le} capsule by it y of othiazide 00:00: mouth [place] 37.5-25 mg 00 every Medical per capsule morning. Bran ch triamterene 2020-02 Yes [id number] 1{capsu Take 1 Univers -hydrochlor 0-12 le} capsule by it y of othiazide 00:00: mouth [place] 37.5-25 mg 00 every Medical per capsule morning. Bran ch aspirin 81 Yes 81mg Take 81 mg U nivers mg chewable 9-28 by mouth ity of tablet 16:55: daily. [address] DULoxetine Yes 30mg Take 30 mg U nivers (CYMBALTA) 9-28 by mouth ity o f 30 mg 16:55: daily. [address] amitriptyli Yes 25mg Take 25 mg Univers ne 25 mg 9-28 by mouth ity of tablet 16:55: at bedtime [place] [address] as needed Medical for Branch Insomnia. DULoxetine Yes 60mg Take 60 mg U nivers (CYMBALTA) 9-28 by mouth ity o f 60 mg 16:55: daily. [address] aspirin 81 Yes 81mg Take 81 mg U nivers mg chewable 9-28 by mouth ity of tablet 16:55: daily. [address] DULoxetine Yes 30mg Take 30 mg U nivers (CYMBALTA) 9-28 by mouth ity o f 30 mg 16:55: daily. [place] capsule 38 Medical Branch amitriptyli Yes 25mg Take 25 mg Univers ne 25 mg 11-22 by mouth ity of tablet 16:55: at bedtime as needed Medical for Branch Insomnia. DULoxetine Yes 60mg Take 60 mg U nivers (CYMBALTA) 11-22 by mouth ity o f 60 mg 16:55: daily. capsule 38 Medical Branch diltiazem Yes [id number] 360mg Take 1 U nivers 360 mg 24 3-03 capsule by ity of hr capsule 00:00: mouth [place] 00 daily. Medical Branch diltiazem Yes [id number] 360mg Take 1 U nivers 360 mg 24 3-03 capsule by ity of hr capsule 00:00: mouth [place] 00 daily. Medical Branch nitroglycer 2019-[id number] 1 Univers in 0.4 mg 0-27 tablet ity of sublingual 00:00: [place] tablet 00 tongue Medical every 5 Branch (five) minutes as needed for Chest pain. pantoprazol 2019-02 Yes [id number] 40mg Take 1 Univers e 40 mg EC 0-27 tablet by ity of tablet 00:00: mouth [place] 00 daily. Medical Branch nitroglycer 2019-[id number] 1 Univers in 0.4 mg 0-27 tablet ity of sublingual 00:00: [place] tablet 00 tongue Medical every 5 Branch (five) minutes as needed for Chest pain. pantoprazol 2019-02 Yes [id number] 40mg Take 1 Univers e 40 mg [...] daily. Metformin Metformin Yes [place] 1 tablet Common HCl HCl Burnett with a Spirit meal - [facility] Diltiazem Diltiazem Yes [place] TK 1 C PO Common HCl ER HCl ER Burnett D Spirit Coated Coated - [facility] Oxcarbazepi Oxcarbazepi Yes [place] 1 tablet Common ne ne Burnett [facility] Duloxetine Duloxetine Yes [place] 1 capsule Common HCl HCl Burnett [facility] Sumatriptan Sumatriptan Yes [place] 1 tablet Common Succinate Succinate Burnett at least 2 Spirit hours - [facility] between St doses as [facility] Nexium Nexium Yes [place] 1 capsule Comm on Burnett [facility] Butalbital- Butalbital- Yes [place] 1 capsule Common ASA-Caffein ASA-Caffein Burnett as needed Spirit e e [facility] Quetiapine Quetiapine Yes [place] 1 tablet Common Fumarate Fumarate Burnett [facility] Plavix Plavix Yes [place] 1 tablet Commo n Burnett [facility] Hydrocodone Hydrocodone Yes [place] as Common -Acetaminop -Acetaminop Burnett directed Spirit hen hen [facility] Diclofenac Diclofenac Yes [place] 1 tablet Common Sodium Sodium Burnett with food Spiri t or milk - [facility] Ondansetron Ondansetron Yes [place] 1 tablet Common Burnett on the Spirit tongue and - [facility] allow to [facility] Cyclobenzap Cyclobenzap Yes [place] 1 tablet Common rine HCl rine HCl Burnett as needed S pirit [facility] Gabapentin Gabapentin Yes [place] 1 capsule Common Burnett [facility] Dyazide Dyazide Yes [place] 1 capsule Co mmon Burnett in the Spirit morning - [facility] Amitriptyli Amitriptyli Yes [place] 1 tablet Common ne HCl ne HCl Burnett at bedtime Spir [facility] Atorvastati Atorvastati Yes [place] 1 tablet Common n Calcium n Calcium Burnett Spir [facility] Linzess Linzess Yes [place] 1 capsule Co mmon Burnett at least Spirit 30 minutes - [facility] before the St first meal [facility] empty stomach Amitiza Amitiza Yes [place] 1 capsule Co mmon Burnett with food Spirit and water [facility] Alprazolam Alprazolam Yes [place] 1 tablet Common Burnett Spirit - [facility] Immunizations Ordered Filled Immunization Date Status Comments Sour e Immunization Name Name Influenza Virus 2021-04-06 Completed Universit y of Vaccine Quad IM, 00:00:00 [place] Me dical Preserv and ABX Branch Free 6 MO-64 YRS Influenza Virus 2021-04-06 Completed Universit y of Vaccine Quad IM, 00:00:00 [facility] dical Preserv and ABX Branch Free 6 MO-64 YRS SARS-COV-2 COVID-19 2021-03-15 Completed Unive rsity of MODERNA VACCINE 00:00:00 [facility] SARS-COV-2 COVID-19 2021-03-15 Completed Unive rsity of MODERNA VACCINE 00:00:00 [facility] SARS-COV-2 COVID-19 2020-09-07 Completed Unive rsity of MODERNA VACCINE 00:00:00 [facility] SARS-COV-2 COVID-19 2020-09-07 Completed Unive rsity of MODERNA VACCINE 00:00:00 [facility] SARS-COV-2 COVID-19 2020-08-08 Completed Unive rsity of MODERNA VACCINE 00:00:00 [facility] SARS-COV-2 COVID-19 2020-08-08 Completed Unive rsity of MODERNA VACCINE 00:00:00 [facility] Flucelvax - Flucelvax - 2019-04-16 Completed Common Spiri t - multidose vial multidose vial 00:00:00 [facility] Vital Signs Vital Name Observation Time Observation Value Comments Source Systolic blood 2021-07-05 21:08:00 148 mm[Hg] Univer sity of pressure [facility] Diastolic blood 2021-07-05 21:08:00 90 mm[Hg] Unive rsity of pressure [facility] Heart rate 2021-07-05 21:08:00 89 /min [facility] Body temperature 2021-07-05 19:44:00 36.56 [facility] Body height 2021-07-05 19:44:00 160 cm [facility] Body weight 2021-07-05 19:44:00 130.137 kg [facility] BMI 2021-07-05 19:44:00 50.82 kg/m2 [facility] Oxygen saturation in 2021-07-05 19:44:00 99 /min University Arterial blood by [facility] Pulse oximetry Branch Procedures This patient has no known procedures. Encounters Start End Encounter Admission Attending Care Care Encounter Source Date/Time Date/Time Type Type Clinicians Facility Department ID 2021-03-22 Outpatient Burnett, STLMLC STLMLC [id number] Common 12:43:31 [place] [address] [facility] 2021-03-22 Outpatient [place], STLMLC STLMLC [id number] Common 12:34:26 [place] [address] [facility] 2021-03-22 Outpatient [place]ett, STLMLC STLMLC [id number] Common 12:07:40 [place] [address] [facility] 2021-03-22 Outpatient Burnett, STLMLC STLMLC [id number] Common 11:56:38 [place] [address] [facility] 2021-03-22 Outpatient Burnett, STLMLC STLMLC [id number] Common 11:36:33 [place] [address] [facility] 2021-03-22 Outpatient Burnett, STLMLC STLMLC [id number] Common 11:21:57 [place] [address] [facility] 2021-03-22 Outpatient Burnett, STLMLC STLMLC [id number] Common 11:08:32 [place] [address] [facility] 2021-03-22 Outpatient Burnett, STLMLC STLMLC [id number] Common 11:07:34 [place] [address] [facility] 2021-03-22 Outpatient Burnett, STLMLC STLMLC [id number] Common 11:05:30 [place] [address] [facility] 2021-03-22 Outpatient Burnett, STLMLC STLMLC [id number] Common 11:04:39 [place] [address] [facility] 2021-07-05 2021-07-05 Office [employer] [id number] [place] [address] 15:00:00 15:38:09 Visit Lacie RODRIGUEZ [id number] i ty of [place]LIN [id number] Emmanuel as DINORAH?BLEA [phone] Nm shakir LAWRENCE [address] [place] [address] MEDICAL OFFICE BUILDING 2020-09-12 2020-09-12 Telephone [facility] [id number] 00:00:00 00:00:00 Amritsathish Guevara [id number] [place] [id number] Professio [id number] nal 059 [facility] 2020-08-01 2020-08-01 Emergency [facility] [id number] 16:53:00 20:11:00 Cassandra Shanon Guevara [id number] [place] [id number] [place] [id number] 2020-08-01 2020-08-01 Telephone [facility] [id number] 00:00:00 00:00:00 [facility] [id number] CLINICS [id number] 201 2020-07-20 2020-07-20 [facility] [id number] 12:21:31 12:36:31 ne Visit [employer] [id number] CLINICS [id number] 201 2020-05-19 2020-05-19 Outpatient STLMLC STLMLC [id number] Common 00:00:00 00:00:00 [facility] 2020-05-11 2020-05-11 Outpatient STLMLC STLMLC [id number] Common 00:00:00 00:00:00 [facility] 2020-05-10 2020-05-10 Outpatient STLMLC STLMLC [id number] Common 00:00:00 00:00:00 [facility] 2020-05-09 2020-05-09 Outpatient STLMLC STLMLC [id number] Common 00:00:00 00:00:00 [facility] 2020-05-02 2020-05-02 Outpatient STLMLC STLMLC [id number] Common 00:00:00 00:00:00 [facility] 2020-03-31 2020-03-31 Outpatient STLMLC STLMLC [id number] Common 00:00:00 00:00:00 [facility] 2020-03-21 2020-03-21 Outpatient STLMLC STLMLC [id number] Common 00:00:00 00:00:00 [facility] 2020-03-21 2020-03-21 Outpatient STLMLC STLMLC [id number] Common 00:00:00 00:00:00 [facility] 2020-02-01 2020-02-01 Outpatient STLMLC STLMLC [id number] Common 00:00:00 00:00:00 [facility] 2020-01-29 2020-01-29 Outpatient STLMLC STLMLC [id number] Common 00:00:00 00:00:00 [facility] 2020-01-27 2020-01-27 Outpatient STLMLC STLMLC [id number] Common 00:00:00 00:00:00 [facility] 2020-01-26 2020-01-26 Outpatient STLMLC STLMLC [id number] Common 00:00:00 00:00:00 [facility] 2020-01-07 2020-01-07 Outpatient STLMLC STLMLC [id number] Common 00:00:00 00:00:00 [facility] 2020-01-06 2020-01-06 Outpatient STLMLC STLMLC [id number] Common 00:00:00 00:00:00 [facility] 2019-12-17 2019-12-17 Outpatient STLMLC STLMLC [id number] Common 00:00:00 00:00:00 [facility] 2019-12-14 2019-12-14 Outpatient STLMLC STLMLC [id number] Common 00:00:00 00:00:00 [facility] 2019-07-15 2019-07-15 [id number] Common 13:15:00 13:15:00 t FOBO Spir it [facility] 2019-05-11 2019-05-11 [facility] [id number] Common 15:30:00 15:30:00 t [facility] Sp[facility] t [facility] 2019-05-04 2019-05-04 [facility] [id number] Common 09:30:00 09:30:00 t [facility] Bone and Spiri t and Joint [facility] - [facility] 2019-04-27 2019-04-27 [facility] [id number] Common 15:30:00 15:30:00 t [facility] Bone and Spiri t and Joint Joint - [facility] 2019-04-16 2019-04-16 [facility] [id number] Common 13:00:00 13:00:[address] [facility] 2019-04-08 2019-04-08 [facility] [id number] Common 16:19:00 16:19:00 t Bone Bone and Spiri t and Joint [facility] - [facility] 2019-04-07 2019-04-07 [facility] [id number] Common 08:00:00 08:00:00 t [facility] Bone and Spiri t and Joint [facility] - [facility] 2019-04-02 2019-04-02 [facility] [id number] Common 11:30:00 11:30:00 t FOBO Spir it [employer] [facility] 2019-03-31 2019-03-31 [facility] [id number] Common 16:13:00 16:13:00 t Bone Bone and Spiri t and Joint [facility] - [facility] 2019-03-26 2019-03-26 [facility] [id number] Common 13:16:00 13:16:00 [place] [address] Sp[address] Drive [facility] 2019-03-26 2019-03-26 [facility] [id number] Common 12:59:00 12:59:00 t Bone Bone and Spiri t and Joint [facility] - [facility] 2019-03-05 2019-03-05 [facility] [id number] Common 08:38:00 08:38:00 t Bone Bone and Spiri t and Joint [facility] - [facility] 2019-03-04 2019-03-04 [facility] [id number] Common 09:30:00 09:30:00 t Bone Bone and Spiri t and Joint [facility] - [facility] 2019-03-03 2019-03-03 [facility] [id number] Common 16:25:00 16:25:00 t Bone Bone and Spiri t and Joint [facility] - [facility] 2019-02-26 2019-02-26 [facility] [id number] Common 09:10:00 09:10:00 t Bone Bone and Spiri t and Joint [facility] 2019-02-13 2019-02-13 Out[facility] [id number] Common 13:36:00 13:36:00 t Kn[place] it [employer] [facility] 2019-02-11 2019-02-11 Out[facility] [id number] Common 11:21:00 11:21:00 t Bone Bone and Spiri t and Joint [facility] - [facility] 2019-02-09 2019-02-09 Out[facility] [id number] Common 14:30:00 14:30:00 t Bone Bone and Spiri t and Joint [facility] 2019-02-05 2019-02-05 Out[facility] [id number] Common 13:45:00 13:45:[address] [facility] 2019-01-28 2019-01-28 Outpatient Casa Cormiert [id number] Common 07:54:00 07:54:00 t Bone Bone and Spiri t and Joint [facility] 2019-01-26 2019-01-26 Outpatient [place] [id number] Common 15:10:00 15:10:00 t [place] [address] Spir [address] Drive [facility] 2019-01-21 2019-01-21 Outpatient [place] [id number] Common 13:00:00 13:00:00 t [place] [address] Spir it Drive [facility] 2018-02-03 2018-02-03 Outpatient [place] [id number] Common 16:06:00 16:06:00 t [place] [address] Spir [address] Drive [facility] Results This patient has no known results.
[2021-07-07] MEDS ORDERED: ONDANSETRON 4 MG/2 ML VIAL ONE (20:46)
[2021-07-07] MEDS ORDERED: MORPHINE 4 MG/ML SYR ONE (20:46)
[2021-07-07 21:01] LABS: Hematocrit 37.5 % (36.0-45.0); Lymphocytes % 32.2 % (15.3-44.8); MPV 8.9 fL (7.6-11.3); Protime INR 1.02; RBC Red Blood Cell Count 4.46 M/uL (3.86-4.86)
--- NOTE | 2021-07-07 21:11 | RAD REPORT ---
EXAM DESCRIPTION: RAD - Chest Single View - 07/07/2021 8:56 pm CLINICAL HISTORY: CHEST PAIN Chest pain. COMPARISON: Chest Single View dated 06/01/2021; Chest Single View dated 05/09/2021; Chest Single View d ated 03/16/2021; Chest Single View dated 09/19/2020 FINDINGS: Portable technique limits examination quality. The lungs are grossly clear. The heart is normal in size. No displaced fractures. IMPRESSION: No acute intrathoracic process suspected.
[2021-07-07 21:13] LABS: Bicarbonate 27 mmol/L (21-32); Potassium 3.7 mmol/L (3.5-5.1); Sodium Level 141 mmol/L (136-145)
[2021-07-07 21:14] LABS: ALT/SGPT 55 U/L (12-78); AST/SGOT 25 U/L (15-37); Albumin 3.6 g/dL (3.4-5.0); Alkaline Phosphatase 126 U/L (45-117); BUN Blood Urea Nitrogen 11 mg/dL (7-18); Bilirubin Total 0.2 mg/dL (0.2-1.0); Glomerular Filtration Rate 55 ml/min (=/>90); Glucose Level 122 mg/dL (74-106); Magnesium 1.9 mg/dL (1.8-2.4); NT PRO-BNP 144 pg/mL (<125); Protein, Total 7.9 g/dL (6.4-8.2)
[2021-07-07 21:42] LABS: Bilirubin Direct < 0.1 mg/dL (0-0.2)
[2021-07-07 21:43] LABS: Troponin High Sensitivity 365.5 pg/mL (<58.9)
[2021-07-07] MEDS ORDERED: HYDROMORPHONE HCL 1 MG/ML INJ ONE (22:05)
[2021-07-07 23:21] LABS: Urine Blood Negative (Negative); Urine Glucose Negative (Negative); Urine Protein Negative (Negative); Urine pH 5.5 (5.0-7.0)
--- NOTE | 2021-07-07 23:23 | ER ---
Nurse's Notes [facility] Name: Che Helton Age: 55 yrs Sex: Female : 1965 Arrival Date: 07/07/2021 Time: 20:28 Bed 4 Private MD: Diagnosis: Angina pectoris, unspecified;Headache;Dizziness and giddiness Presentation: 07/07 20:56 Chief complaint: EMS states: pt has a headache starting this morning, then around 1940 sm5 pt started having chest pressure and blurred vision. Coronavirus screen: At this time, the client does not indicate any symptoms associated with coronavirus-19. Ebola Screen: No symptoms or risks identified at this time. Initial Sepsis Screen: Does the patient meet any 2 criteria? No. Patient's initial sepsis screen is negative. Does the patient have a suspected source of infection? No. Patient's initial sepsis screen is negative. Risk Assessment: Do you want to hurt yourself or someone else? Patient reports no desire to harm self or others. Onset of symptoms was July 07, 2021. 20:56 Method Of Arrival: EMS: [facility] 20:56 Acuity: NELY 3 sm5 Triage Assessment: 20:58 General: Appears in no apparent distress. Behavior is cooperative, appropriate for age. sm5 Pain: Complains of pain in head, chest. Neuro: Milner Agitation-Sedation Scale (RASS): 0 - Alert and Calm Level of Consciousness is awake, alert, obeys commands, Oriented to person, place, time, situation, Reports blurred vision headache. Cardiovascular: Reports since chest pressure Capillary refill < 3 seconds Patient's skin is warm and dry. Respiratory: No deficits noted. Airway is patent Trachea midline Respiratory effort is even, unlabored. GI: Abdomen is obese, Abd is soft and non tender. 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 - Social history:: Smoking status: Patient reports the use of cigarette tobacco products, smokes .25 packs per day. Screenin:59 Abuse screen: Denies threats or abuse. Denies injuries from another. Nutritional 5 screening: No deficits noted. Tuberculosis screening: No symptoms or risk factors identified. Fall Risk None identified. Assessment: 21:00 Reassessment: see triage assessment. 5 22:00 Reassessment: No changes from previously documented assessment. Patient and/or family [facility] updated on plan of care and expected duration. Pain level reassessed. 07/08 00:41 Reassessment: Report given to Josselyn VICTORIA on med surg floor. ke1 Vital Signs: 07/07 20:56 BP 158 / 75; Pulse 95; Resp 15; Temp 98.8(TE); Pulse Ox 99% on R/A; Weight 126.1 kg; sm5 Height 5 ft. 3 in. (160.02 cm); Pain 10/10; 21:00 BP 140 / 102; Pulse 86; Resp 21; Pulse Ox 100% on R/A; sm5 22:33 BP 136 / 72; Pulse 91; Resp 22; Pulse Ox 97% on R/A; sm5 20:56 Body Mass Index 49.24 (126.10 kg, 160.02 cm) 5 ED Course: 20:28 Patient arrived in ED. mw2 20:28 Wang Blackmon PA is PHCP. cp 20:28 Redd Hathaway DO is Attending Physician. cp 20:34 Sherin Salcedo, JULIEN is Primary Nurse. 5 20:40 Inserted saline lock: 20 gauge in right antecubital area, using aseptic technique. 5 Blood collected. 20:54 Basic Metabolic Panel Sent. 5 20:54 CBC with Diff Sent. sm5 20:54 LFT's Sent. sm5 20:55 Magnesium Sent. sm5 20:55 NT PRO-BNP Sent. 5 20:55 PT-INR Sent. 5 20:55 Troponin HS Sent. 5 20:57 Triage completed. 5 20:58 XRAY Chest (1 view) In Process Unspecified. EDNE 20:59 Arm band placed on right wrist. EKG completed in triage. Results shown to MD. 5 20:59 Patient has correct armband on for positive identification. Placed in gown. Bed in low sm5 position. Call light in reach. Side rails up X2. Client placed on continuous cardiac and pulse oximetry monitoring. NIBP monitoring applied. 21:43 Notified ED physician of a critical lab result(s). troponin 365.5. tw5 22:30 CT Aorta for Dissection In Process Unspecified. EDMS 22:30 CT Head Brain wo Cont In Process Unspecified. EDMS 23:07 COVID-19 SARS RT PCR (Document "Date of Onset" if Symptomatic) Sent. ke1 23:21 Edilberto Xiong MD is Hospitalizing Provider. cp 23:26 Urine Microscopic Only Sent. oe 23:26 UDS Sent. oe 23:47 Kal Serrano MD is Hospitalizing Provider. [facility] 07/08 01:17 No provider procedures requiring assistance completed. Patient admitted, IV remains in [address] Administered Medications: 07/07 20:48 Drug: morphine 4 mg Route: IVP; Site: right antecubital; 5 22:18 Follow up: Response: Pain is unchanged, physician notified [facility] 20:48 Drug: Zofran (Ondansetron) 4 mg Route: IVP; Site: right antecubital; 5 22:18 Follow up: Response: No adverse reaction [facility] 22:21 Drug: Dilaudid (HYDROmorphone) 1 mg Route: IVP; Site: right antecubital; 5 07/08 00:03 Drug: XANax (alprazolam) Tablet 0.25 mg Route: PO; 5 Medication: 07/07 20:59 VIS not applicable for this client. [facility] Outcome: 23:22 Decision to Hospitalize by Provider. 07/08 01:17 Admitted to Med/surg accompanied by tech, via wheelchair, with chart. 5 Condition: stable Instructed on the need for admit. 01:18 Patient left the ED. 5 Signatures: Dispatcher [employer] EDMS Cristian Ratliff, CLAYTONC UNDERCOAT SPRAYER-Cla1 Wang Blackmon PA PA cp Gil Shelley oe Vicky Clemente mw2 Alexia Jeff tw5 Sherin Salcedo RN RN 5 Maureen Tam, RN RN ke1 Corrections: (The following items were deleted from the chart) 07/07 20:59 20:58 Neuro: Milner Agitation-Sedation Scale (RASS): 0 - Alert and Calm Level of sm5 Consciousness is awake, alert, obeys commands, Oriented to person, place, time, situation, Reports blurred vision sm5
--- NOTE | 2021-07-07 23:23 | EDPHYS ---
Physician Documentation [facility] Name: Che Helton Age: 55 yrs Sex: Female : 1965 Arrival Date: 07/07/2021 Time: 20:28 Bed 4 Private MD: ED Physician Redd Hathaway HPI: 07/07 20:45 This 55 yrs old Black Female presents to ER via EMS with complaints of Chest Pain. cp 20:45 The patient or guardian reports chest pain that is located primarily in the substernal cp area. 20:45 Onset: 1 hour(s) ago. The pain does not radiate. Associated signs and symptoms: cp Pertinent positives: dizziness, headache, shortness of breath, Pertinent negatives: abdominal pain, cough, diaphoresis, lower extremity pain, lower extremity swelling, syncope. The chest pain is described as constant. Duration: The patient or guardian reports a single episode, that is still ongoing, and worsening. 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 - Social history:: Smoking status: Patient reports the use of cigarette tobacco products, smokes .25 packs per day. ROS: 20:50 Constitutional: Negative for body aches, chills, fever, poor PO intake. cp 20:50 Eyes: Negative for injury, pain, redness, and discharge. cp 20:50 ENT: Negative for drainage from ear(s), ear pain, sore throat, difficulty swallowing, difficulty handling secretions. 20:50 Neck: Negative for pain with movement, pain at rest, stiffness. 20:50 Cardiovascular: Positive for chest pain, Negative for edema, palpitations. 20:50 Respiratory: Positive for shortness of breath, Negative for cough, wheezing. 20:50 Abdomen/GI: Negative for vomiting, diarrhea, constipation. 20:50 Skin: Negative for rash. 20:50 Neuro: Positive for dizziness, headache, Negative for altered mental status, numbness, syncope, weakness. 20:50 All other systems are negative. Exam: 20:33 ECG was reviewed by the Attending Physician. cp 20:55 Constitutional: The patient appears in no acute distress, alert, awake, cp non-diaphoretic, non-toxic, well developed, well nourished, obese, uncomfortable. 20:55 Head/Face: Normocephalic, atraumatic. cp 20:55 Eyes: Periorbital structures: appear normal, Conjunctiva: normal, no exudate, no injection, Sclera: no appreciated abnormality, Lids and lashes: appear normal, bilaterally. 20:55 ENT: External ear(s): are unremarkable, Nose: is normal, Mouth: Lips: moist, Oral mucosa: pink and intact, moist, Posterior pharynx: Airway: no evidence of obstruction, patent. 20:55 Neck: ROM/movement: is normal, is supple, without pain, no range of motions limitations. 20:55 Chest/axilla: Inspection: normal. 20:55 Cardiovascular: Rate: normal, Rhythm: regular, Edema: is not appreciated, JVD: is not appreciated. 20:55 Respiratory: the patient does not display signs of respiratory distress, Respirations: normal, no use of accessory muscles, no retractions, labored breathing, is not present, Breath sounds: are clear throughout, no decreased breath sounds, no stridor, no wheezing. 20:55 Abdomen/GI: Inspection: obese Palpation: abdomen is soft and non-tender, in all quadrants. 20:55 Back: ROM is normal, CVA tenderness, is absent. 20:55 Neuro: Orientation: to person, place \\T\\ time. Mentation: is normal, Motor: moves all fours, strength is normal, Sensation: is normal. Vital Signs: 20:56 BP 158 / 75; Pulse 95; Resp 15; Temp 98.8(TE); Pulse Ox 99% on R/A; Weight 126.1 kg; sm5 Height 5 ft. 3 in. (160.02 cm); Pain 10/10; 21:00 BP 140 / 102; Pulse 86; Resp 21; Pulse Ox 100% on R/A; sm5 22:33 BP 136 / 72; Pulse 91; Resp 22; Pulse Ox 97% on R/A; sm5 20:56 Body Mass Index 49.24 (126.10 kg, 160.02 cm) [facility] MDM: 20:59 Patient medically screened. 21:00 Differential diagnosis: abnormal EKG, acute myocardial infarction, acute pericarditis, cp pancreatitis, pericarditis, pleurisy, pneumonia, pneumothorax, pulmonary embolus, stable angina, thoracic aortic disection, unstable angina. 23:10 Data reviewed: vital signs, nurses notes, lab test result(s), EKG, radiologic studies, cp CT scan, plain films, I have discussed the patient's presentation/case with the attending Emergency Department Physician;. 23:10 Physician consultation: Uli Nicole MD was contacted at 23:00, regarding patient's cp condition, recommends admission for continued observation, serial troponins. 23:15 Physician consultation: Cristian Ratliff was contacted at 23:15, regarding admission, to the telemetry unit. patient's condition. 07/07 20:35 Order name: Basic Metabolic Panel; Complete Time: 21:44 07/07 21:44 Interpretation: Normal except: CL 109; GLUC 122; GFR 55. 07/07 20:35 Order name: CBC with Diff; Complete Time: 21:29 07/07 22:19 Interpretation: Reviewed. 07/07 20:35 Order name: LFT's; Complete Time: 21:44 07/07 22:10 Interpretation: Normal except: ALK 126; A/G 0.8; GLOB 4.3. 07/07 20:35 Order name: Magnesium; Complete Time: 21:44 07/07 20:35 Order name: NT PRO-BNP; Complete Time: 21:44 07/07 20:35 Order name: PT-INR; Complete Time: 21:29 07/07 20:35 Order name: Troponin HS; Complete Time: 21:44 07/07 22:10 Interpretation: Troponin HS 365.5; Reviewed. 07/07 20:35 Order name: XRAY Chest (1 view); Complete Time: 21:29 07/07 21:29 Interpretation: Report review. 07/07 21:44 Order name: UDS 07/07 21:47 Order name: CT Aorta for Dissection 07/07 21:47 Order name: CT Head Brain wo Cont 07/07 22:55 Order name: COVID-19 SARS RT PCR (Document "Date of Onset" if Symptomatic) cp 07/07 22:55 Order name: Urine Microscopic Only cp 07/07 23:21 Order name: Urine Dipstick-Ancillary EDMS 07/07 20:35 Order name: EKG; Complete Time: 20:36 cp 07/07 20:35 Order name: Cardiac monitoring; Complete Time: 20:54 cp 07/07 20:35 Order name: EKG - Nurse/Tech; Complete Time: 20:54 cp 07/07 20:35 Order name: IV Saline Lock; Complete Time: 20:54 cp 07/07 20:35 Order name: Labs collected and sent; Complete Time: 20:54 cp 07/07 20:35 Order name: O2 Per Protocol; Complete Time: 20:54 cp 07/07 20:35 Order name: O2 Sat Monitoring; Complete Time: 20:54 cp 07/07 22:55 Order name: Urine Dipstick-Ancillary (obtain specimen); Complete Time: 23:26 cp EC:33 Rate is 92 beats/min. Rhythm is regular. RI interval is normal. QRS interval is cp prolonged at 104 msec. T waves are Inverted in leads I, aVL. Interpreted by me. Reviewed by me. Administered Medications: 20:48 Drug: morphine 4 mg Route: IVP; Site: right antecubital; 5 22:18 Follow up: Response: Pain is unchanged, physician notified 5 20:48 Drug: Zofran (Ondansetron) 4 mg Route: IVP; Site: right antecubital; 5 22:18 Follow up: Response: No adverse reaction [facility] 22:21 Drug: Dilaudid (HYDROmorphone) 1 mg Route: IVP; Site: right antecubital; 5 07/08 00:03 Drug: XANax (alprazolam) Tablet 0.25 mg Route: PO; 5 Disposition: 05:04 Co-signature as Attending Physician, Redd TRAN was immediately available on-site ms3 in the Emergency Department for consultation in the care of the patient.. Disposition Summary: 07/07/21 23:22 Hospitalization Ordered Hospitalization Status: Observation cp Location: Telemetry/MedSurg (Inpatient) cp Condition: Stable cp Problem: new cp Symptoms: have improved cp Bed/Room Type: Standard cp Provider: Kal Serrano(07/07/21 23:47) la1 Room Assignment: 217(07/08/21 00:14) cg Diagnosis - Angina pectoris, unspecified cp - Headache cp - Dizziness and giddiness cp Forms: - Medication Reconciliation Form cp - SBAR form cp Signatures: Dispatcher [employer] EDCristian Wade, AUTOMATIC DRILL OPERATOR-C AUTOMATIC DRILL OPERATOR-Cla1 Wang Blackmon PA PA cp Garcia, Cindy, RN RN cg Redd Hathaway DO DO ms3 Sherin Salcedo RN RN sm5 Corrections: (The following items were deleted from the chart) 07/07 23:47 23:22 Edilberto Xiong cp la1 07/08 00:14 07/07 23:22 cp cg
[2021-07-07 23:46] LABS: Urine Bacteria <20 /HPF (<20); Urine RBC <5 /HPF (NONE SEEN)
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
[2021-07-08] LABS: Barbiturates POSITIVE (NEGATIVE); Benzodiazepines POSITIVE (NEGATIVE); Cocaine NEGATIVE (NEGATIVE); METHAMPHETAM NEGATIVE (NEGATIVE); Methadone NEGATIVE (NEGATIVE); Opiates POSITIVE (NEGATIVE); Phencyclidine NEGATIVE (NEGATIVE); THC Cannibis NEGATIVE (NEGATIVE)
[2021-07-08] MEDS ORDERED: ALPRAZOLAM 0.25 MG TABLET ONE (00:06)
[2021-07-08] MEDS ORDERED: ONDANSETRON 4 MG/2 ML VIAL IV PRN (00:45)
[2021-07-08] MEDS: HYDROMORPHONE HCL 0.5 MG/0.5 ML INJ IV PRN ×4 (01:29→19:42)
[2021-07-08 01:35] LABS: Absolute Lymphocytes (CBC) 2.8 K/uL (0.7-4.9); Hematocrit 36.8 % (36.0-45.0); Lymphocytes % 37.5 % (15.3-44.8); MPV 8.6 fL (7.6-11.3); RBC Red Blood Cell Count 4.37 M/uL (3.86-4.86)
[2021-07-08 01:43] VITALS: BMI 51.3
[2021-07-08 02:15] LABS: Albumin 3.6 g/dL (3.4-5.0); Bilirubin Total 0.1 mg/dL (0.2-1.0); Potassium 3.8 mmol/L (3.5-5.1); Protein, Total 7.7 g/dL (6.4-8.2)
[2021-07-08] MEDS: METOPROLOL TAR 25 MG TAB PO SCH ×2 (05:01→17:13)
[2021-07-08] MEDS ORDERED: POTASSIUM CL SA 10 MEQ TAB PO ONE (06:00)
[2021-07-08] MEDS: INSULIN -REGULAR HUMAN 50 UNIT/0.5 ML ML SQ SCH ×4 (07:30→20:06)
[2021-07-08] MEDS: ENOXAPARIN 40 MG/0.4 ML SQ SCH (07:56)
[2021-07-08] MEDS: ASPIRIN EC 81 MG TAB PO SCH ×2 (07:57→07:59)
[2021-07-08] MEDS: AMLODIPINE 10 MG TAB PO SCH (08:00)
--- NOTE | 2021-07-08 08:20 | P.PN ---
Subjective Date of Service: 07/08/21 Chief Complaint: Chest pain Subjective: No new changes, Improving Physical Examination - Vital Signs Temperature: 97.5 F Blood Pressure: 151/76 Pulse: 80 Respirations: 19 Pulse Ox (%): 99 - Physical Exam General: Alert, Oriented x3 HEENT: Atraumatic, Normocephalic Neck: Supple Respiratory: Normal air movement Cardiovascular: Regular rate/rhythm, Normal S1 S2 Gastrointestinal: Soft and benign Musculoskeletal: No swelling - Studies Laboratory Data (last 24 hrs) 07/07/21 20:40: PT 11.2, INR 1.02 07/07/21 20:40: WBC 6.3, Hgb 12.4, Hct 37.5, Plt Count 260 07/07/21 20:40: Sodium 141, Potassium 3.7, BUN 11, Creatinine 1.17, Glucose 122 H, Magnesium 1.9, Total Bilirubin 0.2, AST 25, ALT 55, Alkaline Phosphatase 126 H Assessment And Plan - Plan Assessment: NSTEMI Diabetes type [id number] Hypertension Hyperlipidemia Plan: NSTEMI: Work-up has been negative so far. Still has episode of discomfort in chest. Will continue routine surveillance and antiulcer regimen. Diabetes type [id number]: ACHS Accu-Chek, sliding scale insulin. Hypertension: Continue home meds. Hyperlipidemia: Continue home meds DVT PPX: Lovenox. Code status: Full. Discharge Plan: Home. Plan to discharge in: Next 24 Hours
[2021-07-08] MEDS ORDERED: HYDROMORPHONE HCL 0.5 MG/0.5 ML INJ IV ONE (12:45)
--- NOTE | 2021-07-08 15:54 | RAD REPORT ---
EXAM DESCRIPTION: CT - Angio Aorta For Dissection - 07/08/2021 4:02 am CLINICAL HISTORY: 55 years, Female, chest pain COMPARISON: 06/11/2021. TECHNIQUE: Multiple transaxial tomograms from the thoracic and abdominal aorta from the lung apex to the ischial tuberosities performed before and after the administration of large postvoid contrast fo r complete opacification of the thoracic, abdominal aorta and iliac arteries utilizing 3 mm slice thi ckness at 3 mm interval reconstruction. 2-D and 3-D multiplanar reformats, volume rendering technique and maximum intensity projection images were generated and reviewed. This exam was performed according to our departmental dose-optimization protocol, which includes auto mated exposure control, adjustment of the mA and/or kV according to patient size and/or use of iterat alf reconstruction technique. FINDINGS: Thoracic aorta: The thoracic aorta demonstrate to be within normal limits. There is no evidence for significant aneur ysm/or dissection allowing for the motion at the ascending aortic root. There is normal branching pat tern of the great vessels. No evidence for significant stenosis/or occlusion of mild aspect. Abdominal aorta: The abdominal aorta demonstrate to be normal. There is no evidence for aneurysm and/or dissection. The visceral branches demonstrate to be normal with no evidence for significant stenosis/or occlusion . There are single bilateral renal arteries. Bilateral iliac arteries demonstrate to be normal with n o evidence for stenosis. Chest: The lung parenchyma demonstrate to be clear. No significant pulmonary nodules and/or masses ar e identified. The trachea mainstem bronchus demonstrate to be unremarkable. There is no pleural/or pe ricardial effusions. The heart is normal in size. There are no coronary artery calcifications. The ce ntral pulmonary arteries demonstrate to be normal with no significant major filling defects that will suggest pulmonary embolus . There is no significant mediastinal and/or hilar lymphadenopathy. The ax illary regions demonstrate to be clear. The bone windows demonstrate no significant skeletal lesions. Abdomen and pelvis: The liver demonstrate decreased attenuation corresponding to fatty infiltration. Otherwise liver, spleen, adrenal glands, pancreas demonstrate to be unremarkable. The gallbladder was partially distended with no gross abnormalities. The kidneys demonstrate normal uptake of contrast media with no evidence for hydronephrosis and/or ne phrolithiasis. The unopacified stomach demonstrated presence of a surgical suture line corresponding to gastric bypa ss sleeve. Otherwise the unopacified stomach, small bowel and large bowel demonstrate to be unremarka ble. There is no bowel dilatation and/or free air. The appendix is unremarkable.. The urinary bladder demonstrate to be within normal limits. The uterus is absent. There are no adnexa l masses. There is no retroperitoneal lymphadenopathy. There is no evidence for ascites. The bone win dows demonstrate no significant skeletal lesions. IMPRESSION: The thoracic and abdominal aorta demonstrate no evidence for significant aneurysm/or dis section. Hepatic steatosis. Status post gastric bypass sleeve. Status post hysterectomy. Electronically signed by: Gabino Garcia MD 07/07/2021 10:58 PM CDT Due to temporary technical issues with the PACS/Fluency reporting system, reports are being signed by the in house radiologists without review as a courtesy to insure prompt reporting. The interpreting radiologist is fully responsible for the content of the report.
--- NOTE | 2021-07-08 15:55 | RAD REPORT ---
EXAM DESCRIPTION: CT - Head Brain Wo Cont - 07/08/2021 4:02 am CLINICAL HISTORY: 55 years Female Headache, new or worsening TECHNIQUE: Contiguous axial CT images obtained through the brain without IV contrast. Coronal and sa gittal reformats also provided. This CT exam was performed according to our departmental dose-optimization program, which includes on e or more of the following dose reduction techniques: automated exposure control, adjustment of the m A and/or kV according to patient size, and/or use of iterative reconstruction technique. COMPARISON: 06/01/2021 FINDINGS: There is no intracranial hemorrhage, extra-axial collection, or acute transcortical infarc tion. The ventricles are normal in size and contour without mass-effect or midline shift. Osseous structures are normal. The paranasal sinuses and mastoid air cells are clear. IMPRESSION: No acute intracranial abnormalities. Electronically signed by: Maria Luisa Lopez MD 07/07/2021 10:56 PM CDT Due to temporary technical issues with the PACS/Fluency reporting system, reports are being signed by the in house radiologists without review as a courtesy to insure prompt reporting. The interpreting radiologist is fully responsible for the content of the report.
[2021-07-08] MEDS ORDERED: ALPRAZOLAM 0.25 MG TABLET PO PRN (18:15)
[2021-07-08] MEDS ORDERED: ATORVASTATIN 40 MG TAB PO SCH (21:00)
[2021-07-08] MEDS: DIPHENHYDRAMINE 50 MG/ML VIAL IV PRN (21:26)
--- NOTE | 2021-07-08 21:40 | CON ---
Date of Consultation: 07/08/2021 Reason For Consultation: Chest pain. History Of Present Illness: This 55-year-old female with history diabetes, hypertension, dyslipidemi a had multiple ER visits with chest pain and borderline troponin leak. She claimed that she is havin g headache, feeling sick, and chest pain as well so she presented to the emergency room. Workup reve aled mild troponin leak. Other than that, has been negative. Past Medical History: As outlined above in HPI. Medications: Refer to reconciliation sheet for detailed list. Allergies: PENICILLIN AND SULFA. Family History: No premature coronary artery disease or cancer. Social History: She smokes a pack of cigarettes per day. Does not drink or use any drugs. Review of Systems: All systems reviewed and were negative except as mentioned in HPI. Physical Examination: Vital Signs: Blood pressure on arrival was 185/86, now it is 124/54, breathing at 16, temperature is 97.1, heart rate is 80, saturating 97% room air. General: Pleasant, middle aged, morbidly obese. No apparent distress. Head and Neck: Pupils are equal, reactive to light. Intact eye movements. No JVD. No cervical lym phadenopathy. Supple. Thyroid is not enlarged. Lungs: Clear to auscultation bilaterally. No rhonchi, rales, or crackles. No accessory muscle use. Heart: Regular rate and rhythm. No extra sounds. Abdomen: Soft, nontender. Bowel sounds positive. No organomegaly. No masses or hernia. No rigidi ty or rebound. Extremities: No edema, clubbing, or cyanosis. Intact pulses. Skin: No rashes. Neurologic: Alert, awake, and oriented x3. No focal deficits appreciated. Laboratory Data: Labs were reviewed. Assessment And Recommendation: 1.Chest pain with mild troponin leak. She had a recent coronary angiogram last month with totally n ormal coronary arteries. This pain is likely noncardiac in nature. It could be coronary artery spas ms. I would recommend to adjust the dose of beta yvette, go up to 100 mg twice a day and then monit or clinically. No further cardiac tests are needed or recommended at this time. 2.Mild troponin leak, chronic all her hospitalizations. She has mild troponin leak, but normal jadon nary arteries on coronary angiogram done recently. Again, recommend aggressive risk factor modificat ion. Increase beta yvette, quit smoking, baby aspirin daily, diabetes control, and blood pressure c ontrol. Thank you for the consult. /SELENA Voice ID: [id number] Report ID: [id number]
[2021-07-09] MEDS: METOPROLOL TAR 25 MG TAB PO SCH (05:03)
[2021-07-09] MEDS: HYDROMORPHONE HCL 0.5 MG/0.5 ML INJ IV PRN ×2 (05:08→10:22)
[2021-07-09] MEDS: INSULIN -REGULAR HUMAN 50 UNIT/0.5 ML ML SQ SCH ×2 (07:30→11:30)
[2021-07-09] MEDS: AMLODIPINE 10 MG TAB PO SCH (07:47)
[2021-07-09] MEDS: DIPHENHYDRAMINE 50 MG/ML VIAL IV PRN (07:47)
[2021-07-09] MEDS: ENOXAPARIN 40 MG/0.4 ML SQ SCH (07:47)
[2021-07-09] MEDS: ASPIRIN EC 81 MG TAB PO SCH (07:47)
--- NOTE | 2021-07-09 12:44 | P.DS ---
Admission Date: 07/08/21 Discharge Date: 07/09/21 Disposition: ROUTINE DISCHARGE Discharge Condition: GOOD Reason for Admission: Chest pain Brief History of Present Illness: 55-year-old female patient with history of diabetes type 2no [id number], hypertension, hyperlipidemia and multiple ER visits for chest pain with elevated troponin presents emergency department for chest pain. Patient reports her pain began this afternoon described as pressure-like radiating down the right arm. Patient had heart catheterization performed on 05/15/2021 that demonstrated normal coronary arteries, also had echocardiogram which was within normal limits performed on 06/02/2021. Patient was evaluated in the emergency department her initial troponin is 365.5 other labs are unremarkable patient had CT scan of her head as well as CT dissection protocol both were negative for any acute findings ED provider discussed case with cardiology who recommends observing patient in the hospital overnight and trending troponin. Hospital Course: Patient was observed in the hospital for possible rule out of ACS. She was evaluated by cardiology and after review of her labs and imaging and prior hospitalizations was determined that since she had clean coronary arteries about a month prior to this hospitalization that chest pain is noncardiac. Troponin leak continues to be a concern but this is mild in nature. She was asked to have dose of metoprolol adjusted from 25 mg p.o. twice daily 200 mg p.o. daily for the extended release version. She will follow-up with cardiology as an outpatient for management of her cardiac issue. She did have nonspecific vague pain all over the body that was addressed with doses of pain medication and this was resolved significantly. She is discharged in stable condition to follow-up with cardiology as outpatient and also her primary care doctor as scheduled. Vital Signs/Physical Exam: Temp Pulse Resp BP Pulse Ox 98.5 F 72 18 139/72 100 07/09/21 08:00 07/09/21 08:00 07/09/21 10:22 07/09/21 08:00 07/09/21 10:22 General: Alert, Oriented x3 HEENT: Atraumatic, Normocephalic Neck: Supple Respiratory: Normal air movement Cardiovascular: Regular rate/rhythm, Normal S1 S2 Gastrointestinal: Soft and benign Musculoskeletal: No swelling Neurological: Normal speech, Normal strength at 5/5 x4 extr Laboratory Data at Discharge: WBC 7.3 K/uL (4.3-10.9) D 07/08/21 01:26 Hgb 12.3 g/dL (12.0-15.0) 07/08/21 01:26 Hct 36.8 % (36.0-45.0) 07/08/21 01:26 Plt Count 246 K/uL (152-406) 07/08/21 01:26 PT 11.2 SECONDS (9.5-12.5) 07/07/21 20:40 INR 1.02 07/07/21 20:40 Sodium 140 mmol/L (136-145) 07/09/21 05:11 Potassium 4.0 mmol/L (3.5-5.1) 07/09/21 05:11 BUN 9 mg/dL (7-18) 07/09/21 05:11 Creatinine 0.89 mg/dL (0.55-1.3) 07/09/21 05:11 Glucose 122 mg/dL (74-106) H 07/09/21 05:11 Magnesium 1.9 mg/dL (1.8-2.4) 07/07/21 20:40 Total Bilirubin 0.1 mg/dL (0.2-1.0) L 07/08/21 01:26 AST 20 U/L (15-37) 07/08/21 01:26 ALT 50 U/L (12-78) 07/08/21 01:26 Alkaline Phosphatase 122 U/L (45-117) H 07/08/21 01:26 Home Medications: Aspirin Chewable [Aspirin Chewable*] 81 mg PO DAILY 04/14/18 Duloxetine HCl [Cymbalta] 30 mg PO DAILY 04/14/18 Metformin ER [Glucophage ER*] 1,000 mg PO BID 04/14/18 Multivitamin [Multivitamins] 1 cap PO DAILY 04/14/18 Quetiapine Fumarate [Seroquel] 200 mg PO BEDTIME 04/14/18 Amlodipine [Norvasc*] 10 mg PO DAILY #30 tab 03/17/21 Duloxetine HCl [Cymbalta] 60 mg PO BEDTIME 06/01/21 Gabapentin 300 mg PO TIDP PRN 07/08/21 OXcarbazepine [Trileptal*] 150 mg PO BID 07/08/21 Triamterene/Hydrochlorothiazid [Triamterene-Hctz 37.5-25 mg Tb] 1 each PO DAILY 07/08/21 Metoprolol Tartrate [Lopressor] 100 mg PO DAILY 30 Days #30 tablet 07/09/21 New Medications: Metoprolol Tartrate [Lopressor] 100 mg PO DAILY 30 Days #30 tablet Physician Discharge Instructions: PROBLEM: (list out Acute Problems for the Current visit) GOAL: Clear understanding of disease process INSTRUCTIONS: Diet: AHA Activity: Ad huber DME DME: Date Ordered: Name of Company: [employer] Services Needed: Name of Company: Date or Referral: IMMUNIZATION Influenza Vaccine Indicated: Influenza Vaccine Given: Date Given: Pneumonia Vaccine Indicated: No Pneumonia Vaccine Given: Date Given: Diet: AHA Activity: Ad huber Followup: NONE,NONE [Primary Care Provider] -
[2021-07-09 12:51] VITALS: BP 116/66; TEMP 98.7
[2021-07-09 14:30] VITALS: O2SAT 97
--- NOTE | 2021-07-10 10:08 | EKG ---
Test Date: 2021-07-07 Test Time: 20:28:10 [employer]: RED MEASUREMENT RESULTS: Intervals: Rate: 92 KS: 178 QRSD: 104 QT: 404 QTc: 499 [place]: P: 66 KS: 178 QRS: -14 T: 102 INTERPRETIVE STATEMENTS: Sinus rhythm with frequent premature ventricular complexes Right atrial enlargement Voltage criteria for left ventricular hypertrophy T wave abnormality, consider lateral ischemia Abnormal ECG Compared to ECG 06/01/2021 13:18:32 T-wave abnormality now present Possible ischemia now present Prolonged QT interval no longer present Electronically Signed On 07-10-21 10:03:03 CDT by Giovanni Brewster
== END 2021-07-09 14:00 | disposition home or self-care (01) ==
LOC: ER 20:22 → ERHOLD 07-08 00:18 → 2ND 07-08 00:42
PROVIDERS: ADMIT Internal Medicine Nephrology; ATTEND Internal Medicine Nephrology
DX: R07.89 Other chest pain (principal); E11.9 Type 2 diabetes mellitus without complications; I10 Essential (primary) hypertension; R51.9 Headache, unspecified; R77.8 Other specified abnormalities of plasma proteins; R52 Pain, unspecified; R42 Dizziness and giddiness; E78.5 Hyperlipidemia, unspecified; I25.2 Old myocardial infarction; I69.951 Hemiplegia and hemiparesis following unspecified cerebrovascular disease affecting right dominant side; F41.8 Other specified anxiety disorders; F31.9 Bipolar disorder, unspecified; N93.9 Abnormal uterine and vaginal bleeding, unspecified; E66.9 Obesity, unspecified; Z68.43 Body mass index [BMI] 50.0-59.9, adult; F17.210 Nicotine dependence, cigarettes, uncomplicated; Z71.6 Tobacco abuse counseling; Z86.711 Personal history of pulmonary embolism; Z20.822 Contact with and (suspected) exposure to COVID-19; Z79.84 Long term (current) use of oral hypoglycemic drugs; Z79.82 Long term (current) use of aspirin; Z79.899 Other long term (current) drug therapy; Z88.0 Allergy status to penicillin; Z88.2 Allergy status to sulfonamides; Z89.412 Acquired absence of left great toe; Z98.84 Bariatric surgery status; Z82.49 Family history of ischemic heart disease and other diseases of the circulatory system; Z83.3 Family history of diabetes mellitus
CPT/HCPCS: 36415; 70450; 71045; 71275; 74175; 80048; 80053; 80076; 80307; 81003; 81015; 82947; 83735; 83880; 84484; 85025; 85610; 93005; 96374; 96375; 99285; G0378; J1170; J1200; J1650; J2405; Q9967; U0003

== ENCOUNTER 2021-10-09 20:59 | Emergency (ER) | payer OTHER ==
--- OUTSIDE RECORDS SUMMARY | 2021-10-09 21:03 | XMS REPORT | Continuity of Care Document ---
:1965 Author Organization [facility] t Address [address] [place] [address] Care Team Providers Name Role Phone LORENZO ELISCOTTIE PULIDO Primary Care Physician Unavailable Orlando Burnett Attending Clinician Unavailable EULALIO ARAYA Attending Clinician Unavailable CRISTINA PIMENTEL Attending Clinician Unavailable Lacie Dickey Attending Clinician Cristina Pimentel MD Attending Clinician Cassandra Fragoso Attending Clinician Sathya Schulz MD Attending Clinician Payers Payer Name Policy Type Policy Number Effective Date Expiration Date [employer] [id number] [facility] PLUS [id number] 2018 00:00:00 Problems Condition Condition Condition Status Onset [...] Formattin ity of 00:00: g of this 00 note Medical might be Branch different from the original. Added automatic ally from request for surgery [id number] LEN LEN Disease Active Univers (obstructi (obstructi 5-19 it y of ve sleep ve sleep 00:00: [place] apnea) apnea) 00 Medical Branch Essential Essential Disease Active Uni vers hypertensi hypertensi 1-21 it y of on on 00:00: Medical Branch Dyslipidem Dyslipidem Disease Active U nivers ia ia 1-21 ity of 00:00: Medical Branch Coronary-m Coronary-m Disease Active U nivers yocardial yocardial 1-21 ity of bridge bridge 00:00: Medical Branch Type 2 Type 2 Disease [...] U nivers 1-15 ity of 00:00: [place] 00 Medical Branch Aphasia Aphasia Disease Active Univers 707 ity of 00:00: [place] 00 Medical Branch Right-side Right-side Disease Active U yehuda d muscle d muscle 08-31 ity of weakness weakness 00:00: [place] 00 Medical Branch H/O H/O Disease Active Univers 08-30 ity of section section 00:00: [place] 00 Medical Branch History of History of Disease Active U yehuda AR AR 08-30 ity of (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 [place] 00 Medical infarction infarction Br anch ) ) Metabolic Metabolic Disease Active Uni vers syndrome syndrome 08-30 ity of 00:00: [place] 00 Medical Branch Acute CVA Acute CVA Disease Active Uni vers (cerebrova (cerebrova 08-29 it y of scular scular 00:00: [place] accident) accident) [address] [facility] elizabeth Branch Allergies, Adverse Reactions, Alerts Allergy Allergy Status Severity Reaction(s) Onset Inactive Treating Comm ents Source Name Type Date Date Clinician Morphine Propensi Active Itching 2015-02 Unive rs ty to 1-15 ity of adverse 00:00: [place] reaction 00 Medical s Branch Sulfa Propensi Active Anaphylaxis 2015-02 Uni vers (Sulfona ty to 1-15 ity of mide adverse 00:00: [place] Antibiot reaction 00 Medica l ics) s Branch MORPHINE DRUG Active ITCHING 2015-02 Univers INGREDI 1-15 ity of 00:00: [place] 00 Medical Branch SULFA Drug Active Anaphylaxis 2015-02 Unive rs (SULFONA Class 1-15 ity of MIDE 00:00: [place] ANTIBIOT 00 Medical ICS) Branch MORPHINE Allergy Active Low Rash [facility] SULFA Allergy Active Low [facility] Sulfa Adverse Active Info Not Common Reaction Available Spiri t - [facility] Social History Social Habit Start Date Stop Date Quantity Comments Source History of tobacco Cigarette Smoker University of use [facility] Exposure to 2021-06-25 2021-07-05 Not sure University SARS-CoV-2 (event) 00:00:00 14:31:00 [facility] Alcohol intake 2021-07-05 2021-07-05 0 /d University of 00:00:00 00:00:00 [place] [facility] History SDOH 2019-12-09 2019-12-09 5 University o f Financial 00:00:00 00:00:00 [place] [facility] History SDOH Food 2019-12-09 2019-12-09 1 Univers ity of Worry 00:00:00 00:00:00 [place] [facility] History SDOH Food 2019-12-09 2019-12-09 1 Univers ity of Scarcity 00:00:00 00:00:00 [place] [facility] History [facility] 2019-12-09 2019-12-09 2 University o f Transport Med 00:00:00 00:00:00 [place] Medic al Branch History [facility] 2019-12-09 2019-12-09 2 [place] o f Transport Non-Med 00:00:00 00:00:00 [facility] Branch Cigarettes smoked 2016-01-10 2016-01-10 Univers ity of current (pack per 00:00:00 00:00:00 [facility] ) - Reported Branch Cigarette 2016-01-10 2016-01-10 University of pack-years 00:00:00 00:00:00 [facility] Tobacco use and 2016-01-10 2016-01-10 Never used Universit y of exposure 00:00:00 00:00:00 [facility] Sex [birth year] Universit y of 00:00:00 00:00:00 [facility] Smoking Status Start Date Stop Date Source Current every day smoker 2016-01-10 00:00:00 Uni versity of [facility] Medications Ordered Filled Start Stop Current Ordering Indication Dosage Frequency Signature Comments Components Source Medication Medication Date Date Medication? Clinician (SIG) Name Name metoprolol Yes 25mg Take 25 mg U nivers tartrate 25 4-08 by mouth 2 it y of mg tablet 00:00: (two) [place] 00 times Medical daily. Branch butalbital- Yes Univer s acetaminoph 4-08 ity of en-caff 00:00: [place] 50-325-40 00 Medical mg tablet Branch ALPRAZolam Yes .25mg Take 0.25 U nivers 0.25 mg 4-08 mg by ity of tablet 00:00: mouth 3 [place] 00 (three) Medical times Branch daily as needed. metoprolol 0 Yes 25mg Take 25 mg U nivers tartrate 25 4-08 by mouth 2 it y of mg tablet 00:00: (two) [place] 00 times Medical daily. Branch butalbital- 2021-0 Yes Univer s acetaminoph 4-08 ity of en-caff 00:00: [place] 50-325-40 00 Medical mg tablet Branch ALPRAZolam 2021-0 Yes .25mg Take 0.25 U nivers 0.25 mg 4-08 mg by ity of tablet 00:00: mouth 3 00 (three) Medical times Branch daily as needed. metFORMIN Yes [id number] 1000mg Take 1 Univers 1,000 mg 2-10 tablet by ity of tablet 00:00: mouth 2 [place] (two) Medical times Branch daily with meals. atorvastati Yes [id number] 40mg Take 1 Univers n (LIPITOR) 2-10 tablet by ity of 40 mg 00:00: mouth at [place] tablet 00 bedtime. Medical Branch metFORMIN 2021-0 Yes [id number] 1000mg Take 1 Univers 1,000 mg 2-10 tablet by ity of tablet 00:00: mouth 2 [place] (two) Medical times Branch daily with meals. atorvastati 2021-0 Yes [id number] 40mg Take 1 Univers n (LIPITOR) 2-10 tablet by ity of 40 mg 00:00: mouth at [place] tablet 00 bedtime. Medical Branch QUEtiapine 2021-0 Yes Univers 200 mg 2-07 ity of tablet 00:00: Medical Branch OXcarbazepi 2021-0 Yes Univer s ne 300 mg 2-07 ity of tablet 00:00: Medical Branch QUEtiapine 2021-0 Yes Univers 200 mg 2-07 ity of tablet 00:00: Medical Branch OXcarbazepi 2021-0 Yes Univer s ne 300 mg 2-07 ity of tablet 00:00: [place] [facility] Diclofenac 2021-0 Yes APPLY Univer s Sodium 1 % 1-25 TOPICALLY ity of gel 00:00: TO THE [place] 00 AFFECTED Medical AREA FOUR Branch TIMES DAILY FOR 25 DAYS HYDROcodone 2021-0 Yes 1{tbl} Take 1 Un ines -acetaminop 1-25 tablet by ity of hen 7.5-325 00:00: mouth 2 [place] as mg per 00 (two) Medical tablet times Branch daily. Diclofenac Yes APPLY Univer s Sodium 1 % 1-25 TOPICALLY ity of gel 00:00: TO THE [place] 00 AFFECTED Medical AREA FOUR Branch TIMES [...] FOR Branch 14 DAYS triamcinolo 2020-02 Yes [id number] Apply to Univers ne 0-14 area(s) 2 ity of acetonide 00:00: (two) [place] 0.1 % cream 00 times Medical daily. Branch triamcinolo 2020-02 Yes [id number] Apply to Univers ne 0-14 area(s) 2 ity of acetonide 00:00: (two) [place] 0.1 % cream 00 times Medical daily. Branch triamterene 2020-02 Yes [id number] 1{capsu Take 1 Univers -hydrochlor 0-12 le} capsule by it y of othiazide 00:00: mouth [place] 37.5-25 mg 00 every Medical per capsule morning. Bran ch triamterene 2020-02 Yes [id number] 1{capsu Take 1 Univers -hydrochlor 0-12 le} capsule by it y of othiazide 00:00: mouth [place] 37.5-25 mg 00 every Medical per capsule morning. Bran ch aspirin 81 2021-0 Yes 81mg Take 81 mg U nivers mg chewable 9-28 by mouth ity of tablet 16:55: daily. [place] [address] Medical Branch DULoxetine Yes 30mg Take 30 mg U nivers (CYMBALTA) 9-28 by mouth ity o f 30 mg 16:55: daily. [place] [address] Medical Branch amitriptyli Yes 25mg Take 25 mg Univers ne 25 mg 9-28 by mouth ity of tablet 16:55: at bedtime [place] [address] as needed Medical for Branch Insomnia. DULoxetine Yes 60mg Take 60 mg U nivers (CYMBALTA) 9-28 by mouth ity o f 60 mg 16:55: daily. [place] [address] Medical Branch aspirin 81 Yes 81mg Take 81 mg U nivers mg chewable - by mouth ity of tablet 16:55: daily. [place] [address] Medical Branch DULoxetine Yes 30mg Take 30 mg U nivers (CYMBALTA) 9-28 by mouth ity o f 30 mg 16:55: daily. [place] [address] Medical Branch amitriptyli Yes 25mg Take 25 mg Univers ne 25 mg 9-28 by mouth ity of tablet 16:55: at bedtime [place] [address] as needed Medical for Branch Insomnia. DULoxetine Yes 60mg Take 60 mg U nivers (CYMBALTA) 9-28 by mouth ity o f 60 mg 16:55: daily. [place] [address] Medical Branch diltiazem Yes [id number] 360mg Take 1 U nivers 360 mg 24 3-03 capsule by ity of hr capsule 00:00: mouth [place] 00 daily. Medical Branch diltiazem Yes [id number] 360mg Take 1 U nivers 360 mg 24 3-03 capsule by ity of hr capsule 00:00: mouth [place] 00 daily. Medical Branch nitroglycer 2019-[id number] 1 Univers in 0.4 mg 0-27 tablet ity of sublingual 00:00: [place] tablet 00 tongue Medical every 5 Branch (five) minutes as needed for Chest pain. pantoprazol 2019-02 Yes [id number] 40mg Take 1 Univers e 40 mg EC 0-27 tablet by ity of tablet 00:00: mouth [place] 00 daily. Medical Branch nitroglycer 2019-[id number] 1 Univers in 0.4 mg 0-27 tablet ity of sublingual 00:00: [place] tablet 00 tongue Medical every 5 Branch (five) minutes as needed for Chest pain. pantoprazol 2019-02 Yes [id number] 40mg Take 1 Univers e 40 mg [...] HCl HCl Burnett with a Spirit meal [facility] Diltiazem Diltiazem Yes [place] TK 1 C PO Common HCl ER HCl ER Burnett D Spirit Coated Coated - [facility] Oxcarbazepi Oxcarbazepi Yes [place] 1 tablet Common ne ne Burnett [facility] Duloxetine Duloxetine Yes [place] 1 capsule Common HCl HCl Burnett [facility] Sumatriptan Sumatriptan Yes [place] 1 tablet Common Succinate Succinate Burnett at least 2 Spirit hours - [facility] between [facility] doses as [facility] Nexium Nexium Yes [place] 1 capsule Comm on Burnett [facility] Butalbital- Butalbital- Yes [place] 1 capsule Common ASA-Caffein ASA-Caffein Burnett as needed Spirit e e - [facility] Quetiapine Quetiapine Yes [place] 1 tablet Common Fumarate Fumarate Burnett Spirit [facility] Plavix Plavix Yes [place] 1 tablet Commo n Burnett [facility] Hydrocodone Hydrocodone Yes [place] as Common -Acetaminop -Acetaminop Burnett directed Spirit hen hen [facility] Diclofenac Diclofenac Yes [place] 1 tablet Common Sodium Sodium Burnett with food Spiri t or milk - [facility] Ondansetron Ondansetron Yes [place] 1 tablet Common Burnett on the Spirit tongue and - [facility]I allow to [facility] Cyclobenzap Cyclobenzap Yes [place] 1 tablet Common rine HCl rine HCl Burnett as needed S pirit [facility] Gabapentin Gabapentin Yes [place] 1 capsule Common Burnett Spirit [facility] Dyazide Dyazide Yes [place] 1 capsule Co mmon Burnett in the Spirit morning - [facility] Amitriptyli Amitriptyli Yes [place] 1 tablet Common ne HCl ne HCl Burnett at bedtime Spir it [facility] Atorvastati Atorvastati Yes [place] 1 tablet Common n Calcium n Calcium Burnett Spir [facility] Linzess Linzess Yes [place] 1 capsule Co mmon Burnett at least Spirit 30 minutes - [facility] before the St first meal [facility] empty stomach Amitiza Amitiza Yes [place] 1 capsule Co mmon Burnett with food Spirit and water - [facility] Alprazolam Alprazolam Yes [place] 1 tablet Common Burnett Spirit [facility] Immunizations Ordered Filled Immunization Date Status Comments [facility] e Immunization Name Name Influenza Virus 2021-04-06 Completed Universit y of Vaccine Quad IM, 00:00:00 [facility] dical Preserv and ABX Branch Free 6 MO-64 YRS Influenza Virus 2021-04-06 Completed Universit y of Vaccine Quad IM, 00:00:00 [facility] dical Preserv and ABX Branch Free 6 MO-64 YRS SARS-COV-2 COVID-19 2021-03-15 Completed Unive rsity of MODERNA VACCINE 00:00:00 [facility] SARS-COV-2 COVID-19 2021-03-15 Completed Unive rsity of MODERNA VACCINE 00:00:00 [facility] SARS-COV-2 COVID-19 2020-09-07 Completed Unive rsity of MODERNA VACCINE 00:00:00 [facility] SARS-COV-2 COVID-19 2020-09-07 Completed Unive rsity of MODERNA VACCINE 00:00:00 [facility] SARS-COV-2 COVID-19 2020-08-08 Completed Unive rsity of MODERNA VACCINE 00:00:00 [facility] SARS-COV-2 COVID-19 2020-08-08 Completed Unive rsity of MODERNA VACCINE 00:00:00 [facility] Flucelvax - Flucelvax - 2019-04-16 Completed Common Spiri t - multidose vial multidose vial 00:00:00 [facility] Vital Signs Vital Name Observation Time Observation Value Comments Source Systolic blood 2021-07-05 21:08:00 148 mm[Hg] Univer sity of pressure [facility] Diastolic blood 2021-07-05 21:08:00 90 mm[Hg] Unive rsity of pressure [facility] Heart rate 2021-07-05 21:08:00 89 /min [facility] Body temperature 2021-07-05 19:44:00 [facility].56 [facility] Body height 2021-07-05 19:44:00 160 cm [facility] Body weight 2021-07-05 19:44:00 130.137 kg [facility] BMI 2021-07-05 19:44:00 50.82 kg/m2 [facility] Oxygen saturation in 2021-07-05 19:44:00 99 /min [facility] blood by [facility] Pulse oximetry Branch Procedures This patient has no known procedures. Encounters Start End Encounter Admission Attending Care Care Encounter Source Date/Time Date/Time Type Type Clinicians Facility Department ID 2021-07-12 Outpatient Burnett, [facility] [id number] Common 16:16:00 [place] [facility] 2021-03-22 Outpatient Burnett, [facility] [id number] Common 12:43:31 [place] [facility] 2021-03-22 [facility] [id number] Common 12:34:26 [place] [facility] 2021-03-22 [facility] [id number] Common 12:07:40 [place] [address] [facility] 2021-03-22 [facility] [id number] Common 11:56:38 [place] [address] [facility] 2021-03-22 Outpatient Burnett, [facility] [id number] Common 11:36:33 [place] [address] [facility] 2021-03-22 [facility] [id number] Common 11:21:57 [place] [address] [facility] 2021-03-22 Outpatient Burnett, [facility] [id number] Common 11:08:32 [place] [address] [facility] 2021-03-22 Outpatient Burnett, [facility] [id number] Common 11:07:34 [place] [address] [facility] 2021-03-22 [facility] [id number] Common 11:05:30 [place] [address] [facility] 2021-03-22 [facility] [id number] Common 11:04:39 [place] [address] [facility] 2021-08-30 2021-08-30 [id number] [facility] 00:00:00 00:00:00 2021-08-23 2021-08-23 Outpatient EL [facility] [id number] SL 00:00:00 23:59:00 EULALIO 2021-08-21 2021-08-21 Outpatient EL SL SL [id number] SLWH 00:00:00 00:00:00 2021-08-11 2021-08-11 Outpatient Shanon [facility] [id number] Univers 13:20:00 13:20:00 CRISTINA pitts [facility] 2021-07-12 2021-07-12 [facility] [id number] Common 00:00:00 00:00:00 [facility] 2021-07-05 2021-07-05 [facility] [id number] Univers 15:00:00 15:38:09 Visit Lacie RODRIGUEZ [id number] [place] [id number] Emmanuel as DINORAH?BLEA [id number] Vt shakir [address] MEDICAL OFFICE BUILDING 2020-09-12 2020-09-12 Telephone [facility] [id number] 00:00:00 00:00:00 Cristina Castilloton [id number] [place] [id number] Professio [id number] nal 059 [facility] 2020-08-01 2020-08-01 Emergency [facility] [id number] 16:53:00 20:11:00 Cassandra Guevara [id number] [place] [id number] [place] [id number] 2020-08-01 2020-08-01 [facility] [id number] 00:00:00 00:00:00 [employer] [id number] CLINICS [id number] 2020-07-20 2020-07-20 [facility] [id number] 12:21:31 12:36:31 ne Visit [facility] [employer] [id number] [facility] [id number] 2020-05-19 2020-05-19 Outpatient STLMLC ST[facility] [id number] Common 00:00:00 00:00:00 [facility] 2020-05-11 2020-05-11 Outpatient STLMLC STLMLC [id number] Common 00:00:00 00:00:00 [facility] 2020-05-10 2020-05-10 Outpatient STLMLC STLMLC [id number] Common 00:00:00 00:00:00 [facility] 2020-05-09 2020-05-09 Outpatient STLMLC STLMLC [id number] Common 00:00:00 00:00:00 [facility] 2020-05-02 2020-05-02 Outpatient STLMLC STLMLC [id number] Common 00:00:00 00:00:00 [facility] 2020-03-31 2020-03-31 Outpatient STLMLC STLMLC [id number] Common 00:00:00 00:00:00 [facility] 2020-03-21 2020-03-21 Outpatient STLMLC STLMLC [id number] Common 00:00:00 00:00:00 [facility] 2020-03-21 2020-03-21 Outpatient STLMLC STLMLC [id number] Common 00:00:00 00:00:00 [facility] 2020-02-01 2020-02-01 Outpatient STLMLC STLMLC [id number] Common 00:00:00 00:00:00 [facility] 2020-01-29 2020-01-29 Outpatient STLMLC STLMLC [id number] Common 00:00:00 00:00:00 [facility] 2020-01-27 2020-01-27 Outpatient STLMLC STLMLC [id number] Common 00:00:00 00:00:00 [facility] 2020-01-26 2020-01-26 Outpatient STLMLC STLMLC [id number] Common 00:00:00 00:00:00 [facility] 2020-01-07 2020-01-07 Outpatient STLMLC STLMLC [id number] Common 00:00:00 00:00:00 [facility] 2020-01-06 2020-01-06 Outpatient STLMLC STLMLC [id number] Common 00:00:00 00:00:00 [facility] 2019-12-17 2019-12-17 Outpatient STLMLC STLMLC [id number] Common 00:00:00 00:00:00 [facility] 2019-12-14 2019-12-14 Outpatient STLMLC STLMLC [id number] Common 00:00:00 00:00:00 [facility] 2019-07-15 2019-07-15 [id number] Common 13:15:00 13:15:[address] [facility] 2019-05-11 2019-05-11 Out[facility] [id number] Common 15:30:00 15:30:00 [facility] - [facility] 2019-05-04 2019-05-04 [facility] [id number] Common 09:30:00 09:30:00 t [facility] Sp[facility] t [facility] - [facility] 2019-04-27 2019-04-27 [facility] [id number] Common 15:30:00 15:30:00 t [facility] Sp[facility] t and Joint [facility] - [facility] 2019-04-16 2019-04-16 Out[facility] [id number] Common 13:00:00 13:00:[address] [employer] [address] [facility] 2019-04-08 2019-04-08 Out[facility] [id number] Common 16:19:00 16:19:00 t [facility] Bone and Spiri t and Joint [facility] - [facility] 2019-04-07 2019-04-07 Out[facility] [id number] Common 08:00:00 08:00:00 t [facility] Sp[facility] t and Joint [facility] - [facility] 2019-04-02 2019-04-02 Out[facility] [id number] Common 11:30:00 11:30:00 t [employer] Spir it Drive [facility] 2019-03-31 2019-03-31 Out[facility] [id number] Common 16:13:00 16:13:00 t [facility] Bone and Sp[facility] t and Joint [facility] - [facility] 2019-03-26 2019-03-26 Out[facility] [id number] Common 13:16:00 13:16:[address] [employer] [address] [facility] 2019-03-26 2019-03-26 Out[facility] [id number] Common 12:59:00 12:59:00 t [facility] Bone and Spiri t and Joint [facility] - [facility] 2019-03-05 2019-03-05 Outpatient [facility] [id number] Common 08:38:00 08:38:00 t [facility] Sp[facility] t and Joint [facility] - [facility] 2019-03-04 2019-03-04 Out[facility] [id number] Common 09:30:00 09:30:00 t [facility] Bone and Spiri t and Joint [facility] - [facility] 2019-03-03 2019-03-03 Out[facility] [id number] Common 16:25:00 16:25:00 t Bone Bone and Spiri t and Joint [facility] - [facility] 2019-02-26 2019-02-26 Out[facility] [id number] Common 09:10:00 09:10:00 t [facility] Bone and Spiri t and Joint [facility] - [facility] 2019-02-13 2019-02-13 Outpatient [facility] [id number] Common 13:36:00 13:36:00 [employer] Spir it Drive [facility] 2019-02-11 2019-02-11 Outpatient [facility] [id number] Common 11:21:00 11:21:00 t [facility] Bone and Spiri t and Joint [facility] - [facility] 2019-02-09 2019-02-09 Outpatient [facility] [id number] Common 14:30:00 14:30:00 t [facility] Bone and Spiri t and Joint [facility] - [facility] 2019-02-05 2019-02-05 Outpatient [facility] [id number] Common 13:45:00 13:45:00 t [employer] Spir it Drive [facility] 2019-01-28 2019-01-28 Outpatient [facility] [id number] Common 07:54:00 07:54:00 t [facility] Bone and Spiri t and Joint [facility] - [facility] 2019-01-26 2019-01-26 Outpatient [place] [id number] Common 15:10:00 15:10:[address] [facility] 2019-01-21 2019-01-21 Outpatient [place] [id number] Common 13:00:00 13:00:[address] [facility] 2018-02-03 2018-02-03 Outpatient [place] [id number] Common 16:06:00 16:06:[address] [facility] Results This patient has no known results.
[2021-10-09] MEDS ORDERED: ONDANSETRON 4 MG/2 ML VIAL ONE (22:16)
[2021-10-09] MEDS ORDERED: MORPHINE 4 MG/ML SYR ONE (22:16)
[2021-10-09] MEDS ORDERED: NA CHLORIDE 0.9% 1,000 ML ONE (22:16)
[2021-10-09 22:33] LABS: Absolute Lymphocytes (CBC) 2.8 K/uL (0.7-4.9); Hematocrit 37.4 % (36.0-45.0); Lymphocytes % 34.8 % (15.3-44.8); MCV 83.6 fL (80-100); MPV 8.7 fL (7.6-11.3); RBC Red Blood Cell Count 4.48 M/uL (3.86-4.86)
[2021-10-09 23:00] LABS: Albumin 3.7 g/dL (3.4-5.0); Bilirubin Total 0.2 mg/dL (0.2-1.0); Potassium 3.4 mmol/L (3.5-5.1); Protein, Total 8.2 g/dL (6.4-8.2)
[2021-10-09 23:15] LABS: Urine Blood Negative (Negative); Urine Glucose Negative (Negative); Urine Protein Negative (Negative); Urine pH 5.5 (5.0-7.0)
[2021-10-09 23:45] LABS: Urine Bacteria <20 /HPF (<20); Urine RBC <5 /HPF (None Seen)
--- NOTE | 2021-10-10 00:44 | EDPHYS ---
Physician Documentation [facility] Name: Che Helton Age: 55 yrs Sex: Female : 1965 Arrival Date: 10/09/2021 Time: 21:09 Bed 2 Private MD: ED Physician Tonny Ronquillo HPI: 10/09 21:38 This 55 yrs old Black Female presents to ER via EMS with complaints of Back Pain, mh7 Headache. 21:38 The patient complains of pain in the right flank. The pain does not radiate. Onset: The mh7 symptoms/episode began/occurred yesterday. Modifying factors: The symptoms are alleviated by nothing. the symptoms are aggravated by movement, palpation/percussion. Associated signs and symptoms: Pertinent positives: dysuria, headache, nausea, vomiting, Pertinent negatives: diarrhea, dizziness, fever, urinary frequency, hematuria, pain radiating to the lower extremities. Severity of pain: At its worst the pain was moderate this morning, in the emergency department the pain has improved moderately. [employer]: 21:12 LMP N/A - Hysterectomy bb Historical: - Allergies: 21:12 PENICILLINS; bb 21:12 Sulfa (Sulfonamide Antibiotics); bb - PMHx: 21:12 ADD/ADHD; Anxiety; Bipolar disorder; cardiac arrest; Depression; Diabetes - NIDDM; bb Hyperlipidemia; Hypertension; Myocardial infarction; stroke; - PSHx: 21:12 section; gastric sleeve; knee sx; bb - Immunization history:: Moderna x 3. - Social history:: Smoking status: Patient reports the use of cigarette tobacco products. ROS: 21:38 Constitutional: Negative for fever, chills, and weight loss, Eyes: Negative for injury, mh7 pain, redness, and discharge, ENT: Negative for injury, pain, and discharge, Neck: Negative for injury, pain, and swelling, Cardiovascular: Negative for chest pain, palpitations, and edema, Respiratory: Negative for shortness of breath, cough, wheezing, and pleuritic chest pain, MS/Extremity: Negative for injury and deformity, Skin: Negative for injury, rash, and discoloration. 21:38 Psych: Negative for depression, anxiety, suicide ideation, homicidal ideation, and hallucinations, Allergy/Immunology: Negative for hives, rash, and allergies, Endocrine: Negative for neck swelling, polydipsia, polyuria, polyphagia, and marked weight changes, Hematologic/Lymphatic: Negative for swollen nodes, abnormal bleeding, and unusual bruising. 21:38 Neuro: Negative for altered mental status, dizziness, gait disturbance, hearing loss, loss of consciousness, numbness, seizure activity, speech changes, syncope, near syncope, tingling, tinnitus, tremor, visual changes, weakness. Exam: 21:38 Head/Face: Normocephalic, atraumatic. Eyes: Pupils equal round and reactive to light, mh7 extra-ocular motions intact. Lids and lashes normal. Conjunctiva and sclera are non-icteric and not injected. Cornea within normal limits. Periorbital areas with no swelling, redness, or edema. Neck: Trachea midline, no thyromegaly or masses palpated, and no cervical lymphadenopathy. Supple, full range of motion without nuchal rigidity, or vertebral point tenderness. No Meningismus. Chest/axilla: Normal chest wall appearance and motion. Nontender with no deformity. No lesions are appreciated. Cardiovascular: Regular rate and rhythm with a normal S1 and S2. No gallops, murmurs, or rubs. Normal PMI, no JVD. No pulse deficits. Respiratory: Lungs have equal breath sounds bilaterally, clear to auscultation and percussion. No rales, rhonchi or wheezes noted. No increased work of breathing, no retractions or nasal flaring. Abdomen/GI: Soft, non-tender, with normal bowel sounds. No distension or tympany. No guarding or rebound. No evidence of tenderness throughout. 21:38 Skin: Warm, dry with normal turgor. Normal color with no rashes, no lesions, and no evidence of cellulitis. MS/ Extremity: Pulses equal, no cyanosis. Neurovascular intact. Full, normal range of motion. Neuro: Awake and alert, GCS 15, oriented to person, place, time, and situation. Cranial nerves II-XII grossly intact. Motor strength 5/5 in all extremities. Sensory grossly intact. Cerebellar exam normal. Normal gait. Psych: Awake, alert, with orientation to person, place and time. Behavior, mood, and affect are within normal limits. 21:38 Constitutional: The patient appears in no acute distress, alert, awake, uncomfortable. 21:38 Back: normal spinal alignment noted, CVA tenderness, that is moderate, is noted on the right, vertebral tenderness, is not appreciated, muscle spasm, is not present. Vital Signs: 21:09 BP 123 / 60; Pulse 71; Resp 18 S; Temp 98.1(O); Pulse Ox 100% on R/A; Weight 118.39 kg; bb Height 5 ft. 3 in. (160.02 cm) (R); Pain 10/10; 10/10 01:56 BP 114 / 68; Pulse 70; Resp 16; Pulse Ox 99% on R/A; Pain 0/10; kl 10/09 21:09 Body Mass Index 46.23 (118.39 kg, 160.02 cm) bb MDM: 00:42 Differential diagnosis: nephrolithiasis, pyelonephritis, UTI. Data reviewed: [facility] signs, nurses notes, lab test result(s), CBC, electrolytes, urinalysis, radiologic studies, CT scan. Data interpreted: Pulse oximetry: on room air is 100 %. Interpretation: normal. Counseling: I had a detailed discussion with the patient and/or guardian regarding: the historical points, exam findings, and any diagnostic results supporting the discharge/admit diagnosis, lab results, radiology results, the need for outpatient follow up, to return to the emergency department if symptoms worsen or persist or if there are any questions or concerns that arise at home. Response to treatment: the patient's symptoms have resolved after treatment, the patient's blood pressure is in an acceptable range, mental status has returned to baseline, the patient no longer shows bradycardia, the patient is not short of breath, the patient is not tachycardic, the patient's pain is gone, the patient's temperature has normalized, the patient is now symptom free, patient is well hydrated. 00:44 Patient medically screened. [facility] 10/09 21:30 Order name: CBC with Diff; Complete Time: 22:35 [facility] 10/09 21:30 Order name: CMP; Complete Time: 23:07 [facility] 10/09 21:30 Order name: Lipase; Complete Time: 23:07 [facility] 10/09 21:30 Order name: CT Abd/Pelvis - Without Contrast [facility] 10/09 21:30 Order name: Urine Microscopic Only; Complete Time: 23:47 [facility] 10/09 23:16 Order name: Urine Dipstick-Ancillary; Complete Time: 23:47 [facility] 10/09 21:30 Order name: IV Saline Lock; Complete Time: 22:25 [facility] 10/09 21:30 Order name: Labs collected and sent; Complete Time: 22:25 [facility] 10/09 21:30 Order name: Urine Dipstick-Ancillary (obtain specimen) [facility] Administered Medications: 10/09 22:40 Drug: morphine 4 mg Route: IVP; Infused Over: 4 mins; Site: left antecubital; kl 22:45 Drug: NS 0.9% 1000 ml Route: IV; Rate: 1 bolus; Site: left antecubital; kl 22:52 Drug: Zofran (Ondansetron) 4 mg Route: IVP; Site: left antecubital; Disposition Summary: 10/10/21 00:44 Discharge Ordered Location: Home [facility] Problem: new [facility] Symptoms: have improved [facility] Condition: Stable [facility] Diagnosis - Flank Pain, Right [facility] - Dehydration [facility] - Headache [facility] Followup: [facility] - With: Private Physician - When: 1 - 2 days - Reason: Worsening of condition, Recheck today's complaints, Continuance of care, Re-evaluation by your physician Discharge Instructions: - Discharge Summary Sheet [facility] - Dehydration, Adult [facility] - General Headache Without Cause [facility] - Flank Pain, Adult, [id number] [facility] Forms: - Medication Reconciliation Form [facility] - Thank You Letter [facility] - Antibiotic Education [facility] - Prescription Opioid Use [facility] Prescriptions: - ondansetron 4 mg Oral tablet,disintegrating - place 1 tablet by TRANSLINGUAL route every 8 hours As needed; 12 tablet; [facility] Refills: 0, Product Selection Permitted Signatures: Dispatcher [employer] Елена Daniels, RN Nichole Young RN RN bb Holmes, Maurice, MD MD [facility]
--- NOTE | 2021-10-10 00:44 | ER ---
Nurse's Notes [facility] Name: Che Helton Age: 55 yrs Sex: Female : 1965 Arrival Date: 10/09/2021 Time: 21:09 Bed 2 Private MD: Diagnosis: Flank Pain, Right;Dehydration;Headache Presentation: 10/09 21:09 Chief complaint: EMS states: they were toned out for report of pt with lower back pain bb and a headache starting this afternoon. Coronavirus screen: At this time, the client does not indicate any symptoms associated with coronavirus-19. Ebola Screen: No symptoms or risks identified at this time. Initial Sepsis Screen: Does the patient meet any 2 criteria? No. Patient's initial sepsis screen is negative. Does the patient have a suspected source of infection? No. Patient's initial sepsis screen is negative. Risk Assessment: Do you want to hurt yourself or someone else? Patient reports no desire to harm self or others. Onset of symptoms was October 09, 2021. 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 - Social history:: Smoking status: Patient reports the use of cigarette tobacco products. Screenin:00 Abuse screen: Denies threats or abuse. Nutritional screening: No deficits noted. kl Tuberculosis screening: No symptoms or risk factors identified. Fall Risk None identified. Assessment: 23:00 General: Appears distressed, uncomfortable, Behavior is calm, cooperative, appropriate kl for age. Pain: Complains of pain in right flank. Neuro: No deficits noted. Milner Agitation-Sedation Scale (RASS): 0 - Alert and Calm Level of Consciousness is awake, alert, obeys commands, Oriented to person, place, time, situation, [employer] are equal bilaterally Moves all extremities. Gait is steady, Speech is normal, Facial symmetry appears normal. Vital Signs: 21:09 BP 123 / 60; Pulse 71; Resp 18 S; Temp 98.1(O); Pulse Ox 100% on R/A; Weight 118.39 kg; bb Height 5 ft. 3 in. (160.02 cm) (R); Pain 10/10; 10/10 01:56 BP 114 / 68; Pulse 70; Resp 16; Pulse Ox 99% on R/A; Pain 0/10; kl 10/09 21:09 Body Mass Index 46.23 (118.39 kg, 160.02 cm) bb ED Course: 10/09 21:09 Patient arrived in ED. bb 21:12 Triage completed. bb 21:12 Arm band placed on Patient placed in an exam room, on a stretcher, on monitor and storage bin tender, bb on pulse oximetry. Family accompanied patient. 21:14 Tonny Ronquillo MD is Attending Physician. 7 22:[address] 7 22:42 CT Abd/Pelvis - Without Contrast In Process Unspecified. EDWY 22:52 Urine Microscopic Only Sent. kl 22:52 CMP Sent. kl 22:52 Lipase Sent. 10/10 01:57 Patient has correct armband on for positive identification. kl 01:57 No provider procedures requiring assistance completed. IV discontinued, intact, kl bleeding controlled, No redness/swelling at site. Pressure dressing applied. Administered Medications: 10/09 22:40 Drug: morphine 4 mg Route: IVP; Infused Over: 4 mins; Site: left antecubital; kl 22:45 Drug: NS 0.9% 1000 ml Route: IV; Rate: 1 bolus; Site: left antecubital; kl 22:52 Drug: Zofran (Ondansetron) 4 mg Route: IVP; Site: left antecubital; Medication: 10/10 01:57 VIS not applicable for this client. Outcome: 00:44 Discharge ordered by . [facility] 01:00 Discharged to home ambulatory. 01:00 Condition: improved 01:00 Discharge instructions given to patient, Instructed on discharge instructions, follow up and referral plans. medication usage, Demonstrated understanding of instructions, follow-up care, medications, Prescriptions given X 1. 01:58 Patient left the ED. Signatures: Dispatcher [employer] Елена Daniels RN RN Nichole Clayton RN RN bb Tonny Ronquillo MD MD mh7 Catherine Lo RN RN bm7
[2021-10-10 03:23] VITALS: TEMP 98.1
[2021-10-10 03:26] VITALS: BP 114/68; O2SAT 99
--- NOTE | 2021-10-10 09:56 | RAD REPORT ---
EXAM DESCRIPTION: CT - Abdomen Pelvis Wo Contrast - 10/10/2021 6:43 am CLINICAL HISTORY: Flank pain, kidney stone suspected. COMPARISON: CTA of the chest, abdomen, and pelvis from July 07, 2021. TECHNIQUE: Serial axial CT images were obtained from above the diaphragm through the pubic symphysis without administration of intravenous or oral contrast. All CT scans are performed using dose optimization techniques as appropriate, including automated exp osure control and/or standardized protocols, where dose is adjusted for indication for exam and body habitus. FINDINGS: Thoracic: No significant abnormality. Hepatobiliary: Diffuse hepatic steatosis. Hepatomegaly, measuring 20.6 cm in length. No obvious severo rning hepatic lesion identified in the absence of intravenous contrast. The gallbladder is unremarkab le. No biliary ductal dilatation. Pancreas: Unremarkable. Spleen: Unremarkable. Gastrointestinal: Prior gastric sleeve surgery. No evidence of bowel obstruction or perienteric infla mmation. The appendix is normal. Adrenals: No abnormality identified in either adrenal gland. Renal: No obvious parenchymal abnormality in either kidney in the absence of intravenous contrast. No hydronephrosis or urolithiasis. Bladder/Reproductive: Unremarkable appearance of the urinary bladder by CT technique. Hysterectomy. Vascular/Lymphatics: No lymphadenopathy identified by CT size criteria. Abdominal aorta is normal in caliber. Few small calcified pelvic phleboliths, not to be confused with distal ureteral calculi. Musculoskeletal: No concerning osseous lesion identified. Fluid / peritoneum: No significant free fluid. No free intraperitoneal air identified. IMPRESSION: 1. No acute abnormality identified by radiograph. 2. No hydronephrosis or urolithiasis. 3. Hepatic steatosis and hepatomegaly. Electronically signed by: Marleny Cordova MD 10/09/2021 11:14 PM CDT Due to temporary technical issues with the PACS/Fluency reporting system, reports are being signed by the in house radiologists without review as a courtesy to insure prompt reporting. The interpreting radiologist is fully responsible for the content of the report.
== END 2021-10-10 01:58 | disposition home or self-care (01) ==
LOC: ER 20:59
DX: R51.9 Headache, unspecified (principal); E86.0 Dehydration; R10.9 Unspecified abdominal pain; E11.9 Type 2 diabetes mellitus without complications; I10 Essential (primary) hypertension; Z88.0 Allergy status to penicillin; Z88.2 Allergy status to sulfonamides
CPT/HCPCS: 85025; 36415; 83690; 80053; 74176; J7030; J2405; 81003; 81015

== ENCOUNTER 2022-02-13 13:41 | Inpatient (IN) | payer OTHER ==
--- OUTSIDE RECORDS SUMMARY | 2022-02-13 13:45 | XMS REPORT | Continuity of Care Document ---
:1965 Author Organization Formerly [facility] t Address [address] [place] [address] [place] [address] Care Team Providers Name Role Phone ELI VENTURA Primary Care Physician Unavailable Orlando Burnett Attending Clinician Unavailable SATHYA SCHULZ Attending Clinician Unavailable Troy DOTY, Eulalio Foster Attending Clinician EULALIO ARAYA Attending Clinician Unavailable Amelia Borrego RN Attending Clinician Unavailable CRISTINA PIMENTEL Attending Clinician Unavailable Terrence VICTORIA, Joslyn Claudio Attending Clinician LACIE Chin Attending Clinician Unavailable Lacie Dickey Attending Clinician Doctor Unassigned, [place] Attending Clinician Unavailable CAROL VICENTE Attending Clinician Unavailable Iris Pruett MD Attending Clinician Carol Vicente MD Attending Clinician Han DOTY, Cristina Attending Clinician SPRING VELAZQUEZ Attending Clinician Unavailable Andreas OUTDOOR POWER EQUIPMENT MECHANIC, Kasie Attending Clinician Nura HENDERSONP, Елена García Attending Clinician ЕЛЕНА BURRIS Attending Clinician Unavailable Brynn Hernandez RN Attending Clinician Unavailable Only, Ang Db Test Attending Clinician Unavailable Lab, Ang - Db Attending Clinician Unavailable Cassandra Fragoso Attending Clinician Sathya Schulz MD Attending Clinician Tori Chand RN Attending Clinician Unavailable Faye Callahan MD Attending Clinician Only, Adc Test Attending Clinician Unavailable Maximo VICTORIA, Noa Hough Attending Clinician Unavailable [facility] Attending Clinician Unavailable Caleb DOTY, Estephania K.H. Attending Clinician ESTEPHANIA MCCLOUD K.H. Attending Clinician Unavailable Serg Fulton DO Attending Clinician Ilana Beal MD Attending Clinician [phone] Jennifer Treadwell Attending Clinician MAMADOU ARANA Attending Clinician Unavailable MAMADOU ARANA Attending Clinician Unavailable Mamadou Arana MD Attending Clinician CHARLEEN SANCHEZ III Attending Clinician Unavailable SATHYA SCHULZ Admitting Clinician Unavailable IRIS PRUETT Admitting Clinician Unavailable Sathya Schulz MD Admitting Clinician Ilana Beal MD Admitting Clinician [phone] Payers Payer Name Policy Type Policy Number Effective Date Expiration Date Sawyer reynaga [facility] [id number] 2018 PLUS 00:00:00 FOR[facility]LY [id number] [place]IC[place] [id number] 2020 Common HEALTHCARE 00:00:00 [id number] 2010 2018 HEALTHCARE 00:00:00 00:00:00 MEDICAID Problems Condition Condition Condition Status Onset Resolution [...] Formattin ity of 00:00: g of this note Medical might be Branch different from the original. Added automatic ally from request for surgery [id number] LEN LEN Disease Active Univers (obstructi (obstructi 5-19 it y of ve sleep ve sleep 00:00: [place] apnea) apnea) 00 Medical Branch Essential Essential Disease Active Uni vers hypertensi hypertensi 1-21 it y of on on 00:00: Medical Branch Dyslipidem Dyslipidem Disease Active U nivers ia ia 1-21 ity of 00:00: [place] [facility] Coronary-m Coronary-m Disease Active U nivers yocardial yocardial 1-21 ity of bridge bridge 00:00: [place] Medical [facility] Tobacco Tobacco Disease Active Univers abuse abuse 1-21 ity of 00:00: Medical Branch Morbid Morbid Disease Active 2015-02 Univers obesity obesity 1-16 ity of with body with body 00:[place] mass [place] mass index 00 [place] dical of of Branch 40.0-49.9 40.0-49.9 Chest pain Chest pain Disease Active 2015-02 U nivers 1-15 ity of 00:00: [place] [address] Medical Branch CVA CVA Disease Active [facility] (cerebral (cerebral 09-07 [facility] vascular vascular 00:00: Medica l accident) accident) 00 Cent er Right-side Right-side Disease Active [facility] d muscle d muscle 08-31kes weakness weakness [facility] [place] Aphasia Aphasia Disease Active [facility] 08-31kes 00:00: Medical [address] [place] [address] Type 2 Type [address] diabetes diabetes 08-30 mellitus mellitus 00:00: [facility] [place] HTN HTN Disease Active [facility] (hypertens (hypertens 08-30 [place] kes ion) ion) 00:00: [address] Metabolic Metabolic Disease Active [facility] syndrome syndrome 08-30 00:00: Medical [address] [place] [address] Morbid Morbid Disease Active [facility] obesity obesity 08-30kes 00:00: [address] History of History of Disease Active [facility] gastric gastric 08-30 [facility] surgery surgery 00:00: [address] History of History of Disease Active [facility] MS MS 08-30[facility] (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 00:00: Ks dical [address] infarction infarction ) ) H/O H/O Disease Active [facility] 08-30 [facility] section section 00:00: [facility] 00 [place] Smoking Smoking Disease Active [facility] history history 08-30 00:00: Medical 00 [place] Acute CVA Acute CVA Disease Active [facility] (cerebrova (cerebrova 08-29 [place] kes scular scular 00:00: Medical accident) accident) 00 Cent er [id number] Controlled Problem Active Co mmon type 2 Spirit diabetes - [facility] mellitus [facility] without [facility] complicati Medica l on, Center without long-term current use of insulin [id number] Bipolar Problem Active Commo n affective Spirit disorder, - [facility] episode [facility] depressed, Medica l current Center episode severity unspecifie d [id number] Depression Problem Active Com mon with Spirit anxiety - [facility] [id number] Chronic Problem Active Commo n pain Spirit syndrome - [facility] [id number] HTN Problem Active Common (hypertens Spirit ion), - CHI benign [facility] [id number] Primary Problem Active Comm on osteoarthr Spirit itis of - CHI left knee [facility] [id number] Seasonal Problem Active Comm on allergies Spirit - [facility] [id number] Hypercalce Problem Active Com mon marcin [facility] [id number] Mixed Problem Active Common hyperlipid Spirit emia - [facility] [id number] Neuropathy Problem Active Co mmon Spirit - [facility] [id number] GERD Problem Active Common without Spirit esophagiti - CHI s [facility] [id number] History of Problem Active Co mmon CVA Spirit (cerebrova - CHI scular St accident) [facility] without Medical residual Center deficits [id number] Constipati Problem Active Com mon on, Spirit unspecifie - [facility] d [facility] constipati [facility] on type Medical Center Allergies, Adverse Reactions, Alerts Allergy Allergy Status [...] ICS) Branch MORPHINE Allergy Active Low Rash [facility] Morphine Drug Active Rash [facility] Sulfa Drug Active Rash [facility] (Sulfona Allergy [facility] Medical Antibiot Center ics) SULFA Allergy Active Low Rash [facility] (SULFONA [facility] Medical ANTIBIOT Center ICS) 0 Drug Active Unknown Common allergy [facility] Social History Social Habit Start Date Stop Date Quantity Comments Source History of Tobacco Current Smoker Co mmon Spirit - Use [facility] Exposure to 2021-06-25 2021-07-05 Not sure University of SARS-CoV-2 (event) 00:00:00 14:31:00 [place] [facility] History SDOH 2019-12-09 2019-12-09 5 University o f Financial 00:00:00 00:00:00 [place] [facility] History [facility] Food 2019-12-09 2019-12-09 1 Univers ity of Worry 00:00:00 00:00:00 [place] [facility] History SDNM Food 2019-12-09 2019-12-09 1 Univers ity of Scarcity 00:00:00 00:00:00 [place] [facility] History [facility] 2019-12-09 2019-12-09 2 University o f Transport Med 00:00:00 00:00:00 [place] Medic al Branch History [facility] 2019-12-09 2019-12-09 2 University o f Transport Non-Med 00:00:00 00:00:00 [facility] Cigarettes smoked 2016-01-10 2016-01-10 Univers ity of current (pack per 00:00:00 00:00:00 [facility] ) - Reported Branch Cigarette 2016-01-10 2016-01-10 University of pack-years 00:00:00 00:00:00 [facility] Tobacco use and 2016-01-10 2016-01-10 Never used Universit y of exposure 00:00:00 00:00:00 [facility] Alcohol intake 2015-09-08 2015-09-08 [address] [facility] [place] es 00:00:00 00:00:00 non-drinker of Medical nter alcohol (finding) Sex [birth year] [facility] kes 00:00:00 00:00:00 [facility] Smoking Status Start Date Stop Date Source Current Smoker 2020-05-09 00:00:00 Common Spiri t - [facility] Never smoker [facility] Medications Ordered Filled Start Stop Current [...] by ity of tablet 00:00: mouth 3 [place] (three) Medical times Branch daily as needed. metoprolol 0 Yes 25mg Take 25 mg U nivers tartrate 25 4-08 by mouth 2 it y of mg tablet 00:00: (two) [place] 00 times Medical daily. Branch butalbital- 0 Yes Dayron s acetaminoph 4-08 ity of en-caff 00:00: [place] 50-325-40 00 Medical mg tablet Branch ALPRAZolam 2021-0 Yes .25mg Take 0.25 U nivers 0.25 mg 4-08 mg by ity of tablet 00:00: mouth 3 [place] 00 (three) Medical times Branch daily as needed. metFORMIN Yes [id number] 1000mg Take 1 Univers 1,000 mg 2-10 tablet by ity of tablet 00:00: mouth 2 [place] (two) Medical times Branch daily with meals. atorvastati 0 Yes [id number] 40mg Take 1 Univers n (LIPITOR) 2-10 tablet by ity of 40 mg 00:00: mouth at [place] tablet 00 bedtime. Medical Branch metFORMIN 2021-0 Yes [id number] 1000mg Take 1 Univers 1,000 mg 2-10 tablet by ity of tablet 00:00: mouth 2 [place] 00 (two) Medical times Branch daily with meals. atorvastati 0 Yes [id number] 40mg Take 1 Univers n (LIPITOR) 2-10 tablet by ity of 40 mg 00:00: mouth at [place] tablet 00 bedtime. Medical Branch OXcarbazepi 2021-0 Yes Univer s ne 300 mg 2-07 ity of tablet 00:00: [place] 00 Medical Branch QUEtiapine 2021-0 Yes Univers 200 mg 2-07 ity of tablet 00:00: 00 Medical Branch OXcarbazepi 2021-0 Yes Univer s ne 300 mg 2-07 ity of tablet 00:00: Medical Branch QUEtiapine 2021-0 Yes Univers 200 mg 2-07 ity of tablet 00:00: [place] 00 Medical Branch Diclofenac 2021-0 Yes APPLY Dayron s Sodium 1 % 1-25 TOPICALLY ity of gel 00:00: TO THE AFFECTED Medical AREA FOUR Branch TIMES DAILY FOR 25 DAYS HYDROcodone Yes 1{tbl} Take 1 Un ines -acetaminop 1-25 tablet by ity of hen 7.5-325 00:00: mouth 2 [place] as mg per 00 (two) Medical tablet times Branch daily. Diclofenac Yes APPLY Univer s Sodium 1 % 1-25 TOPICALLY ity of gel 00:00: TO THE [place] AFFECTED Medical AREA FOUR Branch TIMES DAILY [...] FOR Branch 14 DAYS triamcinolo 2020-02 Yes [id number] Apply to Univers ne 0-14 area(s) 2 ity of acetonide 00:00: (two) [place] 0.1 % cream 00 times Medical daily. Branch triamcinolo 2020-02 Yes [id number] Apply to Univers ne 0-14 area(s) 2 ity of acetonide 00:00: (two) [place] 0.1 % cream 00 times Medical daily. Branch triamterene 2020-02 Yes [id number] 1{capsu Take 1 Univers -hydrochlor 0-12 le} capsule by it y of othiazide 00:00: mouth [place] 37.5-25 mg 00 every Medical per capsule morning. [facility] triamterene 2020-02 Yes [id number] 1{capsu Take 1 Univers -hydrochlor 0-12 le} capsule by it y of othiazide 00:00: mouth [place] 37.5-25 mg 00 every Medical per capsule morning. [facility] aspirin 81 Yes 81mg Take 81 mg U nivers mg chewable 9-28 by mouth ity of tablet 16:55: daily. [address] DULoxetine Yes 30mg Take 30 mg U nivers (CYMBALTA) 9-28 by mouth ity o f 30 mg 16:55: daily. [address] amitriptyli Yes 25mg Take 25 mg Univers ne 25 mg 9-28 by mouth ity of tablet 16:55: at bedtime [place] [address] as needed Medical for Branch Insomnia. DULoxetine Yes 60mg Take 60 mg U nivers (CYMBALTA) 9-28 by mouth ity o f 60 mg 16:55: daily. [address] aspirin 81 Yes 81mg Take 81 mg U nivers mg chewable 9-28 by mouth ity of tablet 16:55: daily. [address] DULoxetine Yes 30mg Take 30 mg U nivers (CYMBALTA) 9-28 by mouth ity o f 30 mg 16:55: daily. [address] amitriptyli Yes 25mg Take 25 mg Univers ne 25 mg 9-28 by mouth ity of tablet 16:55: at bedtime [place] [address] as needed Medical for Branch Insomnia. DULoxetine Yes 60mg Take 60 mg U nivers (CYMBALTA) 9-28 by mouth ity o f 60 mg 16:55: daily. [address] Ibuprofen Ibuprofen No TID Ibuprofen 600 MG 600 MG 3-29 600 MG 00:00: 00 diltiazem Yes [id number] 360mg Take 1 U nivers 360 mg 24 3-03 capsule by ity of hr capsule 00:00: mouth [place] 00 daily. [facility] diltiazem Yes [id number] 360mg Take 1 U nivers 360 mg 24 3-03 capsule by ity of hr capsule 00:00: mouth [place] 00 daily. [facility] nitroglycer 2019-[id number] 1 Univers in 0.4 mg 0-27 tablet ity of sublingual 00:00: [place] tablet 00 tongue Medical every 5 Branch (five) minutes as needed for Chest pain. pantoprazol 2019-02 Yes [id number] 40mg Take 1 Univers e 40 mg EC 0-27 tablet by ity of tablet 00:00: mouth [place] 00 daily. Medical Branch nitroglycer 2019-[id number] 1 Univers in 0.4 mg 0-27 tablet ity of sublingual 00:00: [place] tablet 00 tongue Medical every 5 Branch (five) minutes as needed for Chest pain. pantoprazol 2019-02 Yes [id number] 40mg Take 1 Univers e 40 mg EC 0-27 tablet by ity of tablet 00:00: mouth [place] 00 daily. Medical Branch Euflexxa Euflexxa 2020-0 No 2mL Commo n 3-16 Spirit 00:00: - [facility] Euflexxa Euflexxa 2020-0 No 2mL Commo n 3-09 Spirit 00:00: - [facility] Euflexxa Euflexxa 2020-0 No 2mL Commo n 3-02 Spirit 00:00: - [facility] Kenalog Kenalog 2018-1 No 40mg Common (Triamcinol (Triamcinol 1-27 S pirit one) one) 00:00: - [facility] Kenalog Kenalog 2017- No 40mg Common (Triamcinol (Triamcinol 1-05 S pirit one) one) 00:00: - [facility] gabapentin 2015-02 Yes 300mg Take 1 Univ ers (NEURONTIN) 1-17 capsule by it y of 300 mg 00:00: mouth 3 [place] capsule 00 (three) Medical times Branch daily. gabapentin 2015-02 Yes 300mg Take 1 Univ ers (NEURONTIN) 1-17 capsule by it y of 300 mg 00:00: mouth 3 [place] capsule 00 (three) Medical times Branch daily. amLODIPine Yes 10mg QD Take [address] (NORVASC) 7-14 by mouth [facility] 10 MG 13:23: daily. Medical tablet 19 Center metFORMIN Yes 500mg Take [address] (GLUCOPHAGE 7-14 mg by [facility] ) 500 MG 13:23: mouth 2 Medica l tablet 19 (two) Center times daily with breakfast and dinner. DULoxetine Yes 30mg QD Take [address] (CYMBALTA) 7-14 by mouth [facility] 30 MG 13:23: every Medical capsule 19 morning. Center DULoxetine Yes 60mg QD Take [address] (CYMBALTA) 7-14 by mouth [facility] 60 MG 13:23: nightly. Medical capsule 19 Center aspirin 81 Yes 81mg QD Take [address] MG EC 7-14 by mouth [facility] tablet 13:23: daily. [place] [address] Center Metformin Metformin Yes [place] 1 tablet Common HCl HCl Burnett with a Spirit meal - [facility] Diltiazem Diltiazem Yes [place] TK 1 C PO Common HCl ER HCl ER Burnett D Spirit Coated Coated - CHI Beads Beads [facility] Oxcarbazepi Oxcarbazepi Yes [place] 1 tablet Common ne ne Burnett [facility] Duloxetine Duloxetine Yes [place] 1 capsule Common HCl HCl Burnett Spirit [facility] Sumatriptan Sumatriptan Yes [place] 1 tablet Common Succinate Succinate Burnett at least 2 Spirit hours - [facility]I between [facility] doses as [facility] needed [facility] Center Nexium Nexium Yes [place] 1 capsule Comm on Burnett [facility] Butalbital- Butalbital- Yes [place] 1 capsule Common ASA-Caffein ASA-Caffein Burnett as needed Spirit e e - [facility] Quetiapine Quetiapine Yes [place] 1 tablet Common Fumarate Fumarate Burnett Spirit [facility] Plavix Plavix Yes [place] 1 tablet Commo n Burnett [facility] Hydrocodone Hydrocodone Yes [place] as Common -Acetaminop -Acetaminop Burnett directed Spirit hen hen [facility] Diclofenac Diclofenac Yes [place] 1 tablet Common Sodium Sodium Burnett with food Spiri t or milk - [facility] Ondansetron Ondansetron Yes [place] 1 tablet Common Burnett on the Spirit tongue and - CHI allow to [facility] Cyclobenzap Cyclobenzap Yes [place] 1 tablet Common rine HCl rine HCl Burnett as needed S pirit - [facility] Gabapentin Gabapentin Yes [place] 1 capsule Common Burnett [facility] Dyazide Dyazide Yes [place] 1 capsule Co mmon Burnett in the Spirit morning - [facility] Amitriptyli Amitriptyli Yes [place] 1 tablet Common ne HCl ne HCl Burnett at bedtime Spir it [facility] Atorvastati Atorvastati Yes [place] 1 tablet Common n Calcium n Calcium Burnett Spir [facility] Linzess Linzess Yes [place] 1 capsule Co mmon Burnett at least Spirit 30 minutes - CHI before the St first meal [facility] of the day Medical on an Center empty stomach Amitiza Amitiza Yes [place] 1 capsule Co mmon Burnett with food Spirit and water - [facility] Alprazolam Alprazolam Yes [place] 1 tablet Common Burnett Spirit - [facility] NexIUM 40 NexIUM 40 No 1{capsu QD NexIUM 40 MG MG le} MG OneTouch OneTouch No OneTouch Ultra Ultra Ultra Control - Control - Control - Butalbital- Butalbital- No 1{capsu 6xD Butalbital ASA-Caffein ASA-Caffein le_as_n -ASA-Caffe e 50-325-40 e 50-325-40 eeded} ine MG MG 50-325-40 MG OneTouch OneTouch No OneTouch Ultra 2 Ultra 2 Ultra 2 w/Device w/Device w/Device Butalbital- Butalbital- No 1{table Butalbital APAP-Caffei APAP-Caffei t_as_ne -APAP-Caff ne ne eded} eine 50-325-40 50-325-40 50-325-40 MG MG MG tiZANidine tiZANidine No tiZANidine HCl HCl HCl Adjustable Adjustable No Adjustable Lancing Lancing Lancing Device - Device - Device - Amitriptyli Amitriptyli No 1{table QD Amitriptyl ne HCl 25 ne HCl 25 t_at_be ine HCl 25 MG MG dtime} MG SUMAtriptan SUMAtriptan No BID SUMAtripta Succinate Succinate n 25 MG 25 MG Succinate 25 MG HYDROcodone HYDROcodone No HYDROcodon -Acetaminop -Acetaminop e-Acetamin hen 7.5-500 hen 7.5-500 ophen MG MG 7.5-500 MG DULoxetine DULoxetine No 1{capsu QD DULoxetine HCl 30 MG HCl 30 MG le} HCl 30 MG AquaLance AquaLance No AquaLance Lancets 30G Lancets 30G Lancets - - 30G - Atorvastati Atorvastati No 1{table QD Atorvastat n Calcium n Calcium t} in Calcium 40 MG 40 MG 40 MG Diclofenac Diclofenac No 1{table QD Diclofenac Sodium 100 Sodium 100 t_with_ Sodium 100 MG MG food_or MG _milk} Alcohol Alcohol No Alcohol Prep 70 % Prep 70 % Prep 70 % Clindamycin Clindamycin No Clindamyci HCl HCl n HCl metFORMIN metFORMIN No 1{table BID metFORMIN HCl 1000 MG HCl 1000 MG t_with_ HCl 1000 a_meal} MG Plavix 75 Plavix 75 No 1{table QD Plavix 75 MG MG t} MG Amitiza 24 Amitiza 24 No Amitiza 24 MCG MCG MCG dilTIAZem dilTIAZem No dilTIAZem HCl ER HCl ER HCl ER Beads Beads Beads metFORMIN metFORMIN No 1{table BID metFORMIN HCl 1000 MG HCl 1000 MG t_with_ HCl 1000 a_meal} MG OXcarbazepi OXcarbazepi No 1{table BID OXcarbazep ne 300 MG ne 300 MG t} ine 300 MG Lidocaine Lidocaine No Lidocaine Linzess 290 Linzess 290 No QD Linzess MCG MCG 290 MCG Triamterene Triamterene No Triamteren -HCTZ -HCTZ e-HCTZ Cyclobenzap Cyclobenzap No 1{table TID Cyclobenza rine HCl 10 rine HCl 10 t_as_ne dina HCl MG MG eded} 10 MG OneTouch OneTouch No OneTouch Ultra - Ultra - Ultra - QUEtiapine QUEtiapine No 1{table QD QUEtiapine Fumarate Fumarate t} Fumarate 100 MG 100 MG 100 MG Ondansetron Ondansetron No 1{table QD Ondansetro 4 MG 4 MG t_on_ n 4 MG e_tongu e_and_a llow_to _dissol ve} dilTIAZem dilTIAZem No dilTIAZem HCl ER HCl ER HCl ER Coated Coated Coated Beads 180 Beads 180 Beads 180 MG MG MG Atorvastati Atorvastati No 1{table QD Atorvastat n Calcium n Calcium t} in Calcium 80 MG 80 MG 80 MG Gabapentin Gabapentin No 1{capsu TID Gabapentin 300 MG 300 MG le} 300 MG Clopidogrel Clopidogrel No Clopidogre Bisulfate Bisulfate l Bisulfate Amitiza 24 Amitiza 24 No BID Amitiza 24 MCG MCG MCG Dyazide Dyazide No 1{capsu QD Dyazide 37.5-25 MG 37.5-25 MG le_in_t 37.5-25 MG he_morn ing} Immunizations Ordered Filled Immunization Date Status Comments [facility] e Immunization Name Name Influenza Virus 2021-04-06 Completed Universit y of Vaccine Quad IM, 00:00:00 [facility] dical Preserv and ABX Branch Free 6 MO-64 YRS Influenza Virus 2021-04-06 Completed Universit y of Vaccine Quad IM, 00:00:00 [facility] dical Preserv and ABX Branch Free 6 MO-64 YRS SARS-COV-2 COVID-19 2021-03-15 Completed Unive rsity of MODERNA VACCINE 00:00:00 [facility] SARS-COV-2 COVID-19 2021-03-15 Completed Unive rsity of MODERNA VACCINE 00:00:00 [facility] SARS-COV-2 COVID-19 2020-09-07 Completed Unive rsity of MODERNA VACCINE 00:00:00 [facility] SARS-COV-2 COVID-19 2020-09-07 Completed Unive rsity of MODERNA VACCINE 00:00:00 [facility] SARS-COV-2 COVID-19 2020-08-08 Completed Unive rsity of MODERNA VACCINE 00:00:00 [facility] SARS-COV-2 COVID-19 2020-08-08 Completed Unive rsity of MODERNA VACCINE 00:00:00 [facility] Flucelvax - Flucelvax - 2019-04-16 Completed Common Spiri t - multidose vial multidose vial 14:09:00 [facility] Flucelvax - Flucelvax - 2019-04-16 Completed Common Spiri t - multidose vial multidose vial 00:00:00 [facility] Vital Signs Vital Name Observation Time Observation Value Comments Source Systolic blood 2021-07-05 21:08:00 148 mm[Hg] Univer sity of pressure [facility] Diastolic blood 2021-07-05 21:08:00 90 mm[Hg] Unive rsity of pressure [facility] Heart rate 2021-07-05 21:08:00 89 /min [facility] Body temperature 2021-07-05 19:44:00 [facility].56 [facility] height 2021-07-05 19:44:00 160 cm [facility] Body weight 2021-07-05 19:44:00 130.137 kg [facility] BMI 2021-07-05 19:44:00 50.82 kg/m2 [facility] Oxygen saturation in 2021-07-05 19:44:00 99 /min [facility] Arterial blood by [facility] Pulse oximetry Branch Procedures This patient has no known procedures. Encounters Start End Encounter Admission Attending Care Care Encounter Source Date/Time Date/Time Type Type Clinicians Facility Department ID 2021-07-12 Outpatient [place], STLMLC STLMLC [id number] Common 16:16:00 [facility] [address] [facility] 2021-03-22 Outpatient [place], STLMLC STLMLC [id number] Common 12:43:31 [place] [address] [facility] 2021-03-22 Outpatient [place], STLMLC STLMLC [id number] Common 12:34:26 [facility] [address] [facility] 2021-03-22 Outpatient [place], STLMLC STLMLC [id number] Common 12:07:40 [place] [address] [facility] 2021-03-22 Outpatient [place], STLMLC STLMLC [id number] Common 11:56:38 [place] [address] [facility] 2021-03-22 Outpatient [place], STLMLC STLMLC [id number] Common 11:36:33 [place] [address] [facility] 2021-03-22 Outpatient [place], STLMLC STLMLC [id number] Common 11:21:57 [place] [address] [facility] 2021-03-22 Outpatient [place], STLMLC STLMLC [id number] Common 11:08:32 [place] [address] [facility] 2021-03-22 Outpatient [place]ett, STLC [facility] [id number] Common 11:07:34 [place] [address] [facility] 2021-03-22 [facility] [id number] Common 11:05:30 [place] [address] [facility] 2021-03-22 Outpatient [place]ett, [facility] [id number] Common 11:04:39 [place] [address] [facility] 2020-12-25 Emergency [facility] [id number] Univers 23:42:02 [facility] 2020-12-25 Outpatient JAZZ, [facility] SPL [id number] Univers 17:18:11 SATHYA [facility] 2020-12-23 Emergency [facility] [id number] Univers 22:47:17 [facility] 2020-12-23 Emergency [facility] [id number] Univers 16:11:18 [facility] 2021-08-30 2021-08-30 Outpatient [facility] [id number] [facility] 00:00:00 00:00:00 2021-08-23 2021-08-23 [facility] Troy [facility] [id number] 23:59:00 23:59:00 Encounter [facility] 2021-08-23 2021-08-23 Outpatient MERLYN ARAYA [facility] [id number] [facility] 00:00:00 23:59:00 EULALIO 2021-08-21 2021-08-21 Outpatient [facility] [id number] [facility] 00:00:00 00:00:00 2021-08-12 2021-08-12 Telephone Borrego, [facility] [id number] 00:00:00 00:00:00 [facility] 2021-08-11 2021-08-11 Outpatient Shanon PIMENTEL [facility] [id number] Univers 13:20:00 13:20:00 CRISTINA meza [facility] 2021-08-11 2021-08-11 Outpatient R HAN, [facility] [id number] Univers 13:20:00 13:20:00 CRISTINA meza [facility] 2021-08-11 2021-08-11 Telephone Edilberto [facility] [id number] 00:00:[facility] 00:00:00 Joslyn jhaverivicenta Claudio [facility] 2021-07-12 2021-07-12 (TEL) [facility] [id number] Co mmon 00:00:00 00:00:00 [facility] - [facility] 2021-07-05 2021-07-05 Outpatient R RADHA, [facility] [id number] Univers 15:00:00 15:38:09 LACIE ho [facility] 2021-07-05 2021-07-05 Office [facility] 1.2.840.114 [id number] Univers 15:00:00 15:38:09 Visit Lacie Stratton [address] [employer] 350.1.13.10 i ty of [place] 4.2.7.2.686 Emmanuel as TOO?BLEA [phone] [address] MEDICAL OFFICE BUILDING 2021-06-29 2021-06-29 Orders Doctor REDDY 1.2.840.114 [id number] Univers 00:00:00 00:00:00 Only Unassigned, JASON 350.1.13.10 ity of [place] [facility] 4.2.7.2.686 Emmanuel as [phone] [address] 2021-06-07 2021-06-07 Outpatient R HAN, [facility] [id number] Univers 15:40:00 15:40:00 [facility] meza [facility] 2021-06-01 2021-06-01 Outpatient R HAN, [facility] [id number] Univers 14:40:00 14:40:00 CRISTINA meza [facility] 2021-06-01 2021-06-01 Telephone [facility] 1.2.715.303 [id number] Univers 00:00:00 00:00:00 [facility] 350.1.13.10 i ty of [place] 4.2.7.2.686 Emmanuel as TOO?BLEA [phone] [place] shakir CASTILLO [address] MEDICAL OFFICE BUILDING 2021-05-16 2021-05-16 Emergency X ANNITASONYA [facility] ERT [id number] Univers 17:47:00 22:54:00 CAROL [facility] 2021-05-16 2021-05-16 Emergency Iris Pruett [facility] 1.2.840. 114 [id number] Univers 17:47:00 22:54:00 Caorl Vicente [place] 350.1.13.10 ity of [place] [phone] [facility] [address] [place] 2021-05-15 2021-05-15 Baudette [facility]AD[facility] 1.2.329.040 [id number] Univers 00:00:00 00:00:00 Cristina [place] 350.1.13.10 ity [facility] [place].2.7.2.686 [place] [facility] [phone] [place]s sarahrachel MARTÍNEZ 059 [facility] 2021-05-04 2021-05-04 Outpatient Shanon VELAZQUEZ [facility] [id number] Univers 10:30:00 10:30:00 [facility] 2021-05-03 2021-05-03 Outpatient Shanon VELAZQUEZ [facility] [id number] Univers 13:00:00 13:00:00 SPRING [facility] 2021-04-28 2021-04-28 Outpatient Shanon TOMAS [facility] [id number] Univers 13:00:00 13:00:[address] [facility] 2021-04-27 2021-04-27 Outpatient Shanon TOMAS [facility] [id number] Univers 14:30:00 15:19:29 LACIE [facility] 2021-04-26 2021-04-26 Outpatient Shanon TOMAS [facility] [id number] Univers 12:30:00 12:30:00 [facility] 2021-04-06 2021-04-06 Office [facility] 1.2.840.114 [id number] Univers 14:00:00 15:51:55 Visit Lacie Stratton HEALTH 350.1.13.10 i ty of [place] 4.2.7.2.686 Emmanuel as TOO?BLEA [phone] [facility] 044 [facility] OFFICE [facility] 2021-04-06 2021-04-06 Outpatient R RADHA, [facility] [id number] Univers 14:00:00 15:51:55 LACIE ho [facility] 2021-04-06 2021-04-06 Outpatient R RADHA, [facility] [id number] Univers 14:00:00 14:00:00 LACIE ho [facility] 2021-04-05 2021-04-05 Outpatient R RADHA, [facility] [id number] Univers 14:00:00 14:00:00 LACIE perry [facility] 2021-01-25 2021-01-25 Outpatient R RADHA, [facility] [id number] Univers 11:00:00 11:00:[address] [facility] 2020-12-08 2020-12-08 Office [facility] 1.2.840.114 [id number] Univers 12:34:35 13:29:22 Visit Lacie Stratton Health 350.1.13.10 i ty of [place] 4.2.7.2.686 Emmanuel as Too?Blea [phone] [address] Office [facility] 2020-12-08 2020-12-08 Outpatient R RADHA, [facility] [id number] Univers 12:30:00 12:30:00 LACIE ho [facility] 2020-12-06 2020-12-06 Office [facility] 1.2.840.114 [id number] Univers 15:42:45 16:02:45 Visit Cristina Guevara 350.1.13.10 ity of [place]2.7.2.[place] Profess[place] [phone] [facility] 059 [facility] 2020-12-06 2020-12-06 Outpatient R HAN, [facility] [id number] Univers 16:00:00 16:00:00 CRISTINA pitts [facility] 2020-12-05 2020-12-05 [facility] [id number] Univers 14:20:00 14:20:00 CRISTINA pitts [facility] 2020-11-23 2020-11-23 Outpatient PRIV PRIV [id number] [facility] 00:00:00 00:00:00 [id number] Medica l 2020-11-22 2020-11-22 Urgent Kasie Johns [facility] 1.2.840.114 [id number] Univers 16:50:10 17:10:10 Care Елена [facility] 350.1.13.10 ity of [place] 4.2.7.2.686 Emmanuel as Too?Blea [phone] [facility] [address] [place] Medical Office [facility] 2020-11-22 2020-11-22 Outpatient R NURA [facility] [id number] Univers 17:00:00 17:00:00 ЕЛЕНА meza [facility] 2020-11-10 2020-11-10 Telephone [facility] 1.2.911.410 [id number] [facility] 00:00:00 00:00:00 Lacie Stratton Health 350.1.13.10 i ty of [place] 4.2.7.2.686 Emmanuel as Too?Blea [phone] [facility] [address] [place] Medical Office [facility] 2020-11-05 2020-11-05 Telephone REDDY Hernandez 1.2.129.071 [id number] [facility] 00:00:00 00:00:00 Brynn TAPIA 350.1.13.10 i ty of HOSPITAL 4.2.7.2.686 Emmanuel as [phone] [address] 2020-11-03 2020-11-03 Laboratory Only, Ang Db Test [facility] 1.2.8 40.114 [id number] Univers 19:12:03 19:27:03 Only Елена [facility] 350.1.13.10 ity of [place] 4.2.7.2.686 Emmanuel as Too?Blea [phone] Me shakir castillo 370 [facility] Office [facility] 2020-11-03 2020-11-03 Outpatient R NURA, [facility] [id number] Univers 19:25:00 19:25:00 ЕЛЕНА pitts [facility] 2020-10-27 2020-10-27 Office [facility] 1.2.840.114 [id number] Univers 13:55:52 15:49:42 Visit Lacie Stratton Health 350.1.13.10 i ty of [place] 4.2.7.2.686 Emmanuel as Too?Blea [phone] [place]s shakir castillo 044 [facility] Office [facility] 2020-10-27 2020-10-27 Eddy Current Inspector Lab, Ang - Db [facility] 1.2.840.1 14 [id number] Univers 15:25:48 15:40:48 Visit Lacie Tomas [facility] 350.1.13.10 ity of [place] 4.2.7.2.686 Emmanuel as Too?Blea [phone] Ks shakir castillo 353 [facility] Office [facility] 2020-10-27 2020-10-27 Outpatient R RADHA, [facility] [id number] Univers 13:30:00 13:30:00 LACIEMARIANNA ho [facility] 2020-09-12 2020-09-12 Telephone [facility] 1.2.602.630 [id number] 00:00:00 00:00:00 Cristina Castilloton 350.1.13.10 [place] 4.2.7.2.686 Professio [phone] [address] 2020-09-12 2020-09-12 Telephone [facility] 1.2.139.136 [id number] Univers 00:00:00 00:00:00 Fabriziojun [place] 350.1.13.10 ity of [place].7.[place] Profess[place] [phone] [address] 2020-08-01 2020-08-01 Emergency [facility] 1.2.710.665 [id number] 16:53:00 20:11:00 Cassandra R [place] 350.1.13.10 [place] 4.2.7.2.686 [place] [phone] 084 2020-08-01 2020-08-01 Emergency [facility] 1.2.312.044 [id number] [facility] 16:53:00 20:11:00 Cassandra Guevara 350.1.13.10 i ty of [place] 4.2.7.2.686 [place] [phone] [facility] [address] 2020-08-01 2020-08-01 Telephone Chipamado, [facility] 1.2.840.114 [id number] 00:00:00 00:00:00 [employer] 350.1.13.10 CLINICS 4.2.7.2.686 [id number] 201 2020-08-01 2020-08-01 Telephone Chipam[place], [facility] 1.2.840.114 [id number] Univers 00:00:00 00:00:00 [facility] 350.1.13.10 ity of CLINICS 4.2.7.2.686 [place] [phone] [facility] [address] 2020-07-20 2020-07-20 Telemedici Jazz [facility] 1.2.840.114 [id number] 12:21:31 12:36:31 ne Visit [employer] 350.1.13.10 CLINICS 4.2.7.2.686 [id number] 2020-07-20 2020-07-20 Telemedici Jazz[facility] 1.2.840.114 [id number] [facility] 12:21:31 12:36:31 ne Visit RPM [employer] 350.1.13.10 ity of CLINICS 4.2.7.2.686 [place] [id number] [facility] [address] 2020-07-20 2020-07-20 Outpatient Shanon SCHULZ [facility] [id number] Univers 11:45:00 11:45:00 HANNAK ity of [facility] 2020-07-19 2020-07-19 Telephone Jazz [facility] 1.2.840.114 [id number] Univers 00:00:00 00:00:00 Sathya Robison JENNIFER 350.1.13.10 ity of [facility] 4.2.7.2.686 [place] [phone] [facility] [address] 2020-07-15 2020-07-15 Hospital Molly Schulz 1.2.071.151 [id number] Univers 07:17:00 13:04:00 Encounter Sathya Tapia 350.1.13.10 ity of [facility] 4.2.7.2.686 Emmanuel as [phone] [facility] [address] 2020-07-15 2020-07-15 Surgery Molly Schulz 1.2.840.114 [id number] Univers 09:44:00 12:25:00 Sathya Tapia 350.1.13.10 i ty of [facility] 4.2.7.2.686 Emmanuel as [phone] [facility] [address] 2020-07-15 2020-07-15 Anesthesia Tori Chand 1.2.840. 114 [id number] Univers 10:25:00 12:15:00 Event Faye Callahan Jason 350.1.13.10 ity of [facility] 4.2.7.2.686 Emmanuel as [phone] [facility] [address] 2020-07-13 2020-07-13 Laboratory Only, Adc Test [facility] 1.2.840. 114 [id number] Univers 14:32:53 14:47:53 Only Sathya Schulz 350.1.13.10 ity [facility] 4.2.7.2.686 [place] [phone] [facility] [address] 2020-07-13 2020-07-13 Outpatient R [facility] [id number] Univers 13:30:00 13:30:00 ity of [facility] 2020-07-13 2020-07-13 Orders Doctor BLAKELY 1.2.840.114 [id number] Univers 00:00:00 00:00:00 Only UnassJASON dean 350.1.13.10 ity of [place] [facility] 4.2.7.2.686 Emmanuel as [phone] [facility] [address] 2020-07-06 2020-07-06 Telephone Maximo Umana 1.2.840.114 [id number] Univers 00:00:00 00:00:00 , Noa Hough Ignacio 350.1.13.10 ity of [place].2.7.2.686 [place] [phone] [facility] [address] 2020-06-23 2020-06-23 Orders Doctor REDDY 1.2.840.114 [id number] Univers 00:00:00 00:00:00 Only Unassigned, JASON 350.1.13.10 ity of [place] [facility] 4.2.7.2.686 Emmanuel as [phone] [facility] [address] [place] 2020-06-22 2020-06-22 Eddy Current Inspector [facility] 1.2.840.114 [id number] Univers 12:57:30 13:44:59 Visit Sathya Schulz [address] [employer] [address] [employer] 350.1.13.10 ity of CLINICS 4.2.7.2.686 [place] [phone] [facility] [address] 2020-06-22 2020-06-22 Office VIKAS Schulz 1.2.840.114 [id number] Univers 11:41:57 12:56:42 [facility] [address] [employer] [address] [employer] 350.1.13.10 ity of CLINICS 4.2.7.2.686 [place] [phone] [facility] [address] 2020-06-22 2020-06-22 Outpatient Shanon SCHULZ [facility] [id number] Univers 11:30:00 11:30:00 HANNAK ity of [facility] 2020-06-22 2020-06-22 Orders Doctor REDDY 1.2.840.114 [id number] Univers 00:00:00 00:00:00 Only Unassigned, JASON 350.1.13.10 ity of [place] [facility] 4.2.7.2.686 Emmanuel as [phone] [facility] [address] [place] 2020-06-21 2020-06-21 Orders Doctor REDDY 1.2.840.114 [id number] Univers 00:00:00 00:00:00 Only Unassigned, JASON 350.1.13.10 ity of [place] [facility] 4.2.7.2.686 Emmanuel as [phone] [address] 2020-06-20 2020-06-20 Telephone [facility] 1.2.131.077 [id number] Univers 00:00:00 00:00:00 Sendlydia Archer Ismael 350.1.13.10 ity of [place]2.7.2.686 [place] Profess[place] [phone] Ks dical nal 059 [facility] 2020-06-15 2020-06-15 Telephone [facility] 1.2.840.114 [id number] Univers 00:00:00 00:00:00 Sathya K SPECIALTY 350.1.13.10 ity of CARE 4.2.7.2.686 [place] CENTER AT [phone] Ks dicrachel VICTORPerry 201 [facility] 2020-06-13 2020-06-13 [facility] 1.2.382.102 [id number] Univers 13:07:04 23:59:00 Encounter Sathya K SPECIALTY 350.1.13.10 ity of CARE 4.2.7.2.686 [place] CENTER AT [phone] Ks dicrachel URIBE 802 [facility] 2020-06-13 2020-06-13 Outpatient R [facility] [id number] Univers 13:06:54 13:06:54 SATHYA ity of [facility] 2020-06-13 2020-06-13 [facility] 1.2.015.342 [id number] Univers 13:06:54 13:06:54 Encounter Hannak K SPECIALTY 350.1.13.10 ity of CARE 4.2.7.2.686 [place] CENTER AT [phone] Ks dicrachel URIBE 802 [facility] 2020-06-10 2020-06-10 Orders Doctor BLAKELY 1.2.840.114 [id number] Univers 00:00:00 00:00:00 Only Unassigned, JASON 350.1.13.10 ity of [place] [facility] 4.2.7.2.686 Emmanuel as [phone] [address] 2020-06-07 2020-06-07 Refill [facility] 1.2.840.114 [id number] Univers 00:00:00 00:00:00 Cristina Guevara 350.1.13.10 ity of [place].2.7.2.[place] Profess[place] [phone] Ks dical nal 059 [facility] 2020-06-01 2020-06-01 Telephone [facility]AD[facility] 1.2.840.114 [id number] Univers 00:00:00 00:00:00 Sathya Fu SPECIALTY 350.1.13.10 ity of CARE 4.2.7.2.686 [place] CENTER AT [phone] Ks shakir URIBE [address] [place] [address] 2020-05-31 2020-05-31 Office [facility] 1.2.840.114 [id number] Univers 13:58:50 14:29:43 Visit Estephania Guevara 350.1.13.10 ity [facility] 4.2.7.2.686 [place] Profess[place] [phone] [facility] nal [address] [place] [address] 2020-05-31 2020-05-31 Outpatient Shanon MCCLOUD [facility] [id number] Univers 14:00:00 14:00:00 SENDLYDIA ho [facility] 2020-05-19 2020-05-19 Office [facility] 1.2.840.114 [id number] Univers 13:08:36 14:28:05 Visit Sathya Fu SPECIALTY 350.1.13.10 ity of C[place] 4.2.7.2.686 [place] CENTER AT [phone] Ks shakir CHADPerry [address] [place] [address] 2020-05-19 2020-05-19 Outpatient Shanon SCHULZ [facility] [id number] Univers 13:15:00 13:15:00 SATHYA ho [facility] 2020-05-19 2020-05-19 Letter [facility] 1.2.840.114 [id number] Univers 00:00:00 00:00:00 (Out) Sathya Fu SPECIALTY 350.1.13.10 ity of C[place] 4.2.7.2.686 [place] CENTER AT [phone] Ks shakir BONILLAY [address] [facility] 2020-05-19 2020-05-19 Orders Doctor REDDY 1.2.840.114 [id number] Univers 00:00:00 00:00:00 Only Unassigned, JASON 350.1.13.10 ity of [place] [facility] 4.2.7.2.686 Emmanuel as [phone] [facility] [address] 2020-05-19 2020-05-19 Outpatient STLMLC STLMLC [id number] Common 00:00:00 00:00:00 [facility] 2020-05-11 2020-05-11 Orders Doctor REDDY 1.2.840.114 [id number] Univers 00:00:00 00:00:00 Only Unassigned, JASON 350.1.13.10 ity of [place] [facility] 4.2.7.2.686 Emmanuel as [phone] [facility] [address] [place] 2020-05-11 2020-05-11 Outpatient STLMLC STLMLC [id number] Common 00:00:00 00:00:00 [facility] 2020-05-10 2020-05-10 Outpatient STLMLC STLMLC [id number] Common 00:00:00 00:00:00 [facility] 2020-05-09 2020-05-09 Outpatient STLMLC STLMLC [id number] Common 00:00:00 00:00:00 [facility] 2020-05-02 2020-05-02 Outpatient STLMLC STLMLC [id number] Common 00:00:00 00:00:00 [facility] 2020-04-26 2020-04-26 Telephone VIDA Pimentel 1.2.726.961 [id number] Univers 00:00:00 00:00:00 Cristina Guevara 350.1.13.10 ity of [place]2.7.2.[place] [phone] Ks shakir nal [address] [facility] 2020-04-26 2020-04-26 Diana P[facility]elADV[facility] 1.2.840.114 [id number] Univers 00:00:00 00:00:00 Cristina [place] 350.1.13.10 [place] 4.2.7.2.686 Christos Renteria [phone] [place] 434399 [facility] 2020-03-31 2020-03-31 Outpatient STLMLC STLMLC [id number] Common 00:00:00 00:00:00 [facility] 2020-03-23 2020-03-23 Outpatient [facility] [id number] Univers 15:00:00 15:00:00 CRISTINA montesperry derrick hong [facility] 2020-03-21 2020-03-21 Outpatient STLMLC STLMLC [id number] Common 00:00:00 00:00:00 [facility] 2020-03-21 2020-03-21 Outpatient STLMLC STLMLC [id number] Common 00:00:00 00:00:00 [facility] 2020-02-01 2020-02-01 Outpatient STLMLC STLMLC [id number] Common 00:00:00 00:00:00 [facility] 2020-01-29 2020-01-29 Outpatient STLMLC STLMLC [id number] Common 00:00:00 00:00:00 [facility] 2020-01-27 2020-01-27 Outpatient STLMLC STLMLC [id number] Common 00:00:00 00:00:00 [facility] 2020-01-26 2020-01-26 Outpatient STLMLC STLMLC [id number] Common 00:00:00 00:00:00 [facility] 2020-01-07 2020-01-07 Outpatient STLMLC STLMLC [id number] Common 00:00:00 00:00:00 [facility] 2020-01-06 2020-01-06 Outpatient STLMLC STLMLC [id number] Common 00:00:00 00:00:00 [facility] 2020-01-04 2020-01-04 Outpatient Shanon [facility] [id number] [facility] 00:00:00 00:00:00 CRISTINA ho o f [facility] 2019-12-28 2019-12-28 Outpatient R [facility] [id number] Univers 00:00:00 00:00:00 CRISTINA ho o f [facility] 2019-12-24 2019-12-24 Telephone [facility] 1.2.816.481 [id number] Univers 00:00:00 00:00:00 Cristina [place] 350.1.13.10 ity of [place] [phone] Ks dical nal [address] [place] [address] 2019-12-22 2019-12-22 Office [facility] 1.2.840.114 [id number] Univers 16:16:32 16:44:34 Visit Cristina Castilloton 350.1.13.10 ity of [place]2.7.2.686 [place] [phone] Ks dicwy nal [address] [place] [address] 2019-12-22 2019-12-22 Outpatient [facility] [id number] Univers 16:40:00 16:40:00 CRISTINA pitts [facility] 2019-12-17 2019-12-17 Outpatient STLMLC STLMLC [id number] Common 00:00:00 00:00:00 [facility] 2019-12-14 2019-12-14 Outpatient STLMLC STLMLC [id number] Common 00:00:00 00:00:00 [facility] 2019-12-10 2019-12-10 Telephone [facility] 1.2.224.849 [id number] Univers 00:00:00 00:00:00 Cristina [place] 350.1.13.10 ity of [place] [phone] Ks dicwy nal 9 [facility] 2019-12-08 2019-12-09 Emergency Serg Fulton [facility] 1.2.840. 114 [id number] Univers 18:15:00 16:02:00 Ilana Beal [place] 350.1.13.10 ity of [place] 4.2.7.2.686 [facility] [phone] [facility] [address] [place] 2019-12-08 2019-12-08 Orders Doctor REDDY 1.2.840.114 [id number] Univers 00:00:00 00:00:00 Only Unassigned, JASON 350.1.13.10 ity of [place] [facility] 4.2.7.2.686 Emmanuel as [phone] [facility] [address] 2019-11-01 2019-11-01 Emergency [facility] 1.2.063.914 [id number] Univers 21:14:00 22:39:00 Jennifer S Ismael 350.1.13.10 i ty of [place] 4.2.7.2.686 [facility] [phone] [place] [id number] [place] 2019-08-10 2019-08-10 [facility] [id number] Univers 00:00:00 00:00:00 Cristina Guevara 350.1.13.10 it[place]2.[place] [phone] [place] [address] [place] [address] 2019-07-15 2019-07-15 Outpatient [facility] [id number] Common 13:15:00 13:15:00 [employer] [facility] 2019-07-14 2019-07-14 Outpatient R HAN [facility] [id number] Univers 13:20:00 13:20:00 CRISTINA ho o f [facility] 2019-07-14 2019-07-14 Telemedici [facility] 1.2.840.114 [id number] Univers 07:59:51 08:19:51 ne Visit Cristina Guevara 350.1.13.10 [place] [phone] [place] 9 [facility] 2019-06-25 2019-06-25 Telephone [facility] [id number] Univers 00:00:00 00:00:00 [place] 350.1.13.10 ity [place]2.[place] [phone] [place] [id number] [facility] 2019-06-24 2019-06-24 Outpatient R MAMADOU ARANA [facility] [id number] Univers 13:30:00 13:30:00 PHYLLIS ARANAL ity [facility] 2019-06-24 2019-06-24 Telemedici [facility] [id number] Univers 09:31:59 09:46:59 ne Visit [facility] [place] 350.1.13.10 [place] [phone] [address] 2019-06-24 2019-06-24 Telephone [facility] [id number] Univers 00:00:00 00:00:00 [facility] 350.1.13.10 ity of [id number] [phone] [address] 2019-06-19 2019-06-19 Orders Doctor REDDY [id number] Univers 00:00:00 00:00:00 Only Unassigned, JASON [id number] ity of [place] [facility] [id number] Emmanuel as [phone] [address] 2019-06-17 2019-06-17 Outpatient R MAMADOU ARANA [facility] [id number] Univers 10:00:00 10:00:[address] [facility] 2019-06-17 2019-06-17 Telemedici [facility] [id number] Univers 07:59:54 08:29:54 ne Visit [facility] [place] [id number] [id number] [phone] [address] 2019-05-11 2019-05-11 Out[facility] [id number] Common 15:30:00 15:30:00 t Bone Bone and Spiri t and Joint [facility] - [facility] 2019-05-04 2019-05-04 Outpatient [facility] [facility] 29 [id number] Common 09:30:00 09:30:00 t Bone Bone and Spiri t and Joint Joint - [facility] 2019-04-30 2019-04-30 Refill [facility] [id number] Univers 00:00:00 00:00:00 Cristina Guevara [id number] [id number] [phone] [place] dical nal 9 [facility] 2019-04-27 2019-04-27 Outpatient [facility] 29 [id number] Common 15:30:00 15:30:00 t Bone Bone and Spiri t and Joint Joint - [facility] 2019-04-20 2019-04-20 Telephone [facility] [id number] Univers 00:00:00 00:00:00 Cristina Guevara [id number] [id number] [phone] [place] dicwy nal 9 [facility] 2019-04-16 2019-04-16 Outpatient [facility] [facility] [id number] Common 13:00:00 13:00:[address] [employer] [address] Family - [facility] 2019-04-15 2019-04-15 Office [facility] [id number] Univers 13:55:26 14:36:48 Visit Cristina Guevara [id number] [id number] [phone] [place] dicwy nal 059 [facility] 2019-04-15 2019-04-15 Orders Doctor BLAKELY [id number] [id number] Univers 00:00:00 00:00:00 Only Unassigned, JASON [id number] ity of [facility] [id number] Emmanuel as [phone] [address] 2019-04-08 2019-04-08 Outpatient [place] [id number] Common 16:19:00 16:19:00 t Bone Bone and Spiri t and Joint Joint - [facility] 2019-04-07 2019-04-07 Outpatient [facility] [id number] Common 08:00:00 08:00:00 t Bone Bone and Spiri t and Joint Joint - [facility] 2019-04-06 2019-04-06 Diana Pimentel VAMARQUITA 1.2.840.114 [id number] Univers 00:00:00 00:00:00 Cristina Guevara [id number] [id number] [facility] [phone] [place] sarahal nal 059 [facility] 2019-04-02 2019-04-02 Outpatient [facility] [id number] Common 11:30:00 11:30:00 t [employer] [facility] it Drive [facility] 2019-04-02 2019-04-02 VIDA Feng [id number] Univers 00:00:00 00:00:00 Cristina Guevara [id number] ity [facility] [id number] [phone] [place] dical nal 059 [facility] 2019-03-31 2019-03-31 Outpatient [facility] 29 [id number] Common 16:13:00 16:13:00 t Bone Bone and Spiri t and Joint Joint - [facility] 2019-03-26 2019-03-26 Outpatient [facility] [id number] Common 13:16:00 13:16:00 t [place] [employer] [address] [facility] 2019-03-26 2019-03-26 Outpatient [facility] 29 [id number] Common 12:59:00 12:59:00 t Bone Bone and Spiri t and Joint Joint - [facility] 2019-03-05 2019-03-05 [facility] [id number] Common 08:38:00 08:38:00 t Bone Bone and Spiri t and Joint Joint - [facility] 2019-03-04 2019-03-04 Out[facility] [id number] Common 09:30:00 09:30:00 t Bone Bone and Spiri t and Joint Joint - [facility] 2019-03-03 2019-03-03 Out[facility] [id number] Common 16:25:00 16:25:00 t Bone Bone and Spiri t and Joint Joint - [facility] 2019-02-26 2019-02-26 Out[facility] [id number] Common 09:10:00 09:10:00 t Bone Bone and Spiri t and Joint Joint - [facility] 2019-02-13 2019-02-13 Outpatient [facility] [id number] Common 13:36:00 13:36:[address] [employer] [address] [facility] 2019-02-11 2019-02-11 Outpatient [facility] [id number] Common 11:21:00 11:21:00 t Bone Bone and Spiri t and Joint Joint - [facility] 2019-02-09 2019-02-09 Outpatient [facility] [id number] Common 14:30:00 14:30:00 t Bone Bone and Spiri t and Joint Joint - [facility] 2019-02-09 2019-02-09 Orders Doctor BLAKELY [id number] [id number] Univers 00:00:00 00:00:00 Only Unassigned, JASON [id number] ity of [place] [facility] [id number] Emmanuel as [phone] [place] [address] [place] 2019-02-05 2019-02-05 Outpatient [facility] [id number] Common 13:45:00 13:45:[address] Family [facility] 2019-01-28 2019-01-28 Outpatient [facility] [id number] Common 07:54:00 07:54:00 t Bone Bone and Spiri t and Joint Joint - [facility] 2019-01-26 2019-01-26 Outpatient [facility] [id number] Common 15:10:00 15:10:[address] Family [facility] 2019-01-21 2019-01-21 Outpatient [facility] [id number] Common 13:00:00 13:00:[address] [facility] 2018-12-24 2018-12-24 Refill Han [facility] [id number] [facility] 00:00:00 00:00:00 Cristina Guevara [id number] [id number] [phone] [place] dical nal 9 [facility] 2018-10-15 2018-10-15 Baudette [facility]AD[facility] [id number] Univers 00:00:00 00:00:00 Fabriziojimenez [place] [id number] [id number] [phone] [place] dical nal 9 [facility] 2018-02-03 2018-02-03 Outpatient [facility] [id number] Common 16:06:00 16:06:[address] [facility] 2015-01-29 2015-01-29 Emergency X DANIEL III, [facility] ERT [id number] Univers 15:16:12 17:44:00 CHARLEEN ho of [facility] Results This patient has no known results.
--- NOTE | 2022-02-13 14:08 | RAD REPORT ---
EXAM DESCRIPTION: CT - Abdomen Pelvis Wo Contrast - 02/13/2022 1:59 pm CLINICAL HISTORY: Abdominal pain. right flank pain COMPARISON: Abdomen Pelvis Wo Contrast dated 10/09/2021 TECHNIQUE: CT imaging of the abdomen and pelvis was performed without contrast. Solid organ, bowel a nd vascular assessment is limited due to lack of IV and oral contrast. All CT scans are performed using dose optimization technique as appropriate and may include automated exposure control or mA/KV adjustment according to patient size. FINDINGS: The lower lung monroy are clear.Postsurgical changes are present about the stomach. The liver, spleen, pancreas, adrenal glands and kidneys are within normal limits for a limited non-co ntrast examination. No bowel obstruction, free air, free fluid or abscess. Large volume of stool is retained throughout t he colon. The appendix is normal. The osseous structures are within normal limits. IMPRESSION: No acute intra-abdominal or pelvic findings. Moderate retained stool throughout the colo n. A limited non-contrast examination was performed as detailed.
--- NOTE | 2022-02-13 14:11 | RAD REPORT ---
EXAM DESCRIPTION: RAD - Chest Single View - 02/13/2022 2:05 pm CLINICAL HISTORY: CHEST PAIN Chest pain. COMPARISON: Chest Single View dated 07/07/2021; Chest Single View dated 06/01/2021; Chest Single View d ated 05/09/2021; Chest Single View dated 03/16/2021 FINDINGS: Portable technique limits examination quality. The lungs are grossly clear. The heart is normal in size. No displaced fractures. IMPRESSION: No acute intrathoracic process suspected.
[2022-02-13 14:15] LABS: Urine Blood Negative (Negative); Urine Glucose Negative (Negative); Urine Protein Negative (Negative); Urine pH 5.5 (5.0-7.0)
[2022-02-13 14:24] LABS: Urine Bacteria None Seen /HPF (<20); Urine Mucus Slight /HPF (None Seen); Urine RBC <5 /HPF (None Seen)
[2022-02-13] MEDS ORDERED: KETOROLAC 30 MG/ML INJ ONE (14:25)
[2022-02-13 14:49] LABS: Absolute Lymphocytes (CBC) 2.4 K/uL (0.7-4.9); Lymphocytes % 35.9 % (15.3-44.8); RBC Red Blood Cell Count 4.49 M/uL (3.86-4.86)
[2022-02-13 15:03] LABS: Magnesium 2.1 mg/dL (1.6-2.4); Potassium 4.8 mmol/L (3.5-5.1)
[2022-02-13 15:05] LABS: Troponin High Sensitivity 233.6 pg/mL (<58.9)
--- NOTE | 2022-02-13 15:17 | ER ---
Nurse's Notes [facility] Name: Che Helton Age: 56 yrs Sex: Female : 1965 Arrival Date: 02/13/2022 Time: 13:45 Bed 18 Private MD: Diagnosis: Chest pain, unspecified;Elevated Troponin;Nausea;Constipation Presentation: 02/13 13:45 Chief complaint: Chief complaint: EMS states: patient called 911 for chest pain and ko1 right arm pain/tingling. 13:49 Coronavirus screen: At this time, the client does not indicate any symptoms associated ko1 with coronavirus-19. Ebola Screen: No symptoms or risks identified at this time. Initial Sepsis Screen: Does the patient meet any 2 criteria? No. Patient's initial sepsis screen is negative. Does the patient have a suspected source of infection? No. Patient's initial sepsis screen is negative. Risk Assessment: Do you want to hurt yourself or someone else? Patient reports no desire to harm self or others. Onset of symptoms was February 13, 2022. 13:49 Method Of Arrival: EMS: [facility] ko1 13:49 Acuity: NELY 2 ko1 Triage Assessment: 13:52 General: Appears distressed, uncomfortable, Behavior is calm, cooperative, appropriate ko1 for age. Pain: Complains of pain in chest. Historical: - Allergies: 13:52 Sulfa (Sulfonamide Antibiotics); ko1 13:52 PENICILLINS; ko1 - PMHx: 13:52 ADD/ADHD; Anxiety; Bipolar disorder; cardiac arrest; Depression; Diabetes - NIDDM; ko1 Hyperlipidemia; Hypertension; Myocardial infarction; stroke; - PSHx: 13:52 section; gastric sleeve; knee sx; ko1 - Immunization history:: Adult Immunizations unknown. - Social history:: Smoking status: Patient denies any tobacco usage or history of. Screenin:[address] [facility] ED Fall Risk Assessment (Adult) History of falling in the last 3 months, ko1 including since admission No falls in past 3 months (0 pts). Humpty Dumpty Scale Fall Assessment Tool (age< 18yrs) Age 13 years and above (1 pt). Abuse screen: Denies threats or abuse. Denies injuries from another. Nutritional screening: No deficits noted. Tuberculosis screening: No symptoms or risk factors identified. Fall Risk No fall in past 12 months (0 pts). IV access (20 points). Assessment: 13:53 Neuro: No deficits noted. Cardiovascular: Reports chest pain. Respiratory: No deficits ko1 noted. GI: No deficits noted. : No deficits noted. EENT: No deficits noted. Derm: No deficits noted. Musculoskeletal: No deficits noted. Vital Signs: 13:49 BP 141 / 68 RA Supine (auto/lg); Pulse 87; Resp 18; Temp 98(O); Pulse Ox 98% on R/A; ko1 Weight 113.85 kg (R); Height 5 ft. 3 in. (160.02 cm) (R); Pain 9/10; 14:20 BP 138 / 68; Pulse 78; Pulse Ox 98% ; ko1 14:32 BP 132 / 55; Pulse 72; Pulse Ox 99% ; ko1 15:03 BP 128 / 56; Pulse 74; Resp 16; Pulse Ox 99% ; Pain 8/10; ko1 17:59 BP 111 / 55; Pulse 92; Pulse Ox 100% ; ko1 13:49 Body Mass Index 44.46 (113.85 kg, 160.02 cm) ko1 ED Course: 13:45 Patient arrived in ED. ms3 13:46 Monique Abreu, RN is Primary Nurse. ko1 13:52 Triage completed. ko1 13:52 Arm band placed on right wrist. ko1 13:53 Redd Hathaway DO is Attending Physician. ms3 13:53 Patient has correct armband on for positive identification. Fall risk band placed. Bed ko1 in low position. Call light in reach. Side rails up X2. Client placed on continuous cardiac and pulse oximetry monitoring. NIBP monitoring applied. traffic monitor specialist on. 13:53 Maintain EMS IV. Dressing intact. Site clean \T\ dry. Gauge \T\ site: 20g left AC. IV is ko 1 patent, is intact, without good blood return, Flushed left antecubital with 5 ml normal saline. Patient maintains SpO2 saturation greater than 95% on room air. 14:00 CT Abd/Pelvis - Without Contrast In Process Unspecified. EDMS 14:00 No provider procedures requiring assistance completed. IV discontinued, intact, ko1 bleeding controlled, No redness/swelling at site. Pressure dressing applied. 14:07 XRAY Chest (1 view) In Process Unspecified. EDMS 14:16 Urine Microscopic Only Sent. ko1 14:20 Inserted saline lock: 20 gauge in right antecubital area, using aseptic technique. ko1 Blood collected. 15:12 UDS Sent. ko1 15:15 Edilberto Xiong MD is Hospitalizing Provider. ms3 17:56 Report given to JULIEN Mcfarlane. ko1 Administered Medications: 14:31 Drug: Ketorolac 10 mg Route: IVP; Site: right antecubital; ko1 14:49 Follow up: Response: No adverse reaction ko1 14:49 Follow up: Response: Pain is decreased ko1 18:37 Not Given (Other Intervention Used; patient transferredd): morphine 2 mg IVP once over ko1 4 mins Medication: 17:58 VIS not applicable for this client. ko1 Outcome: 15:16 Decision to Hospitalize by Provider. ms3 17:56 Admitted to Tele accompanied by tech, via wheelchair, room 411. ko1 17:56 Condition: good 17:56 Instructed on the need for admit, Demonstrated understanding of instructions. 18:38 Patient left the ED. ko1 Signatures: Dispatcher [employer] EDMS Redd Hathaway DO DO ms3 Monique Abreu RN RN ko1 Corrections: (The following items were deleted from the chart) 13:52 13:45 Chief complaint: ko1 ko1
--- NOTE | 2022-02-13 15:17 | EDPHYS ---
Physician Documentation [facility] Name: Che Helton Age: 56 yrs Sex: Female : 1965 Arrival Date: 02/13/2022 Time: 13:45 Bed 18 Private MD: ED Physician Redd Hathaway HPI: 02/13 13:49 This 56 yrs old Black Female presents to ER via Unassigned with complaints of chest ms3 pain, flank pain. 13:49 The patient or guardian reports chest pain that is located primarily in the substernal ms3 area. Onset: this morning. The pain radiates to the right arm. Associated signs and symptoms: The patient has no apparent associated signs or symptoms. The chest pain is described as squeezing. Duration: The patient or guardian reports a single episode, that is still ongoing. Modifying factors: The symptoms are alleviated by nothing. the symptoms are aggravated by nothing. Severity of pain: At its worst the pain was severe in the emergency department the pain is unchanged. EMS care prior to arrival includes: aspirin. Historical: - Allergies: 13:52 Sulfa (Sulfonamide Antibiotics); ko1 13:52 PENICILLINS; ko1 - PMHx: 13:52 ADD/ADHD; Anxiety; Bipolar disorder; cardiac arrest; Depression; Diabetes - NIDDM; ko1 Hyperlipidemia; Hypertension; Myocardial infarction; stroke; - PSHx: 13:52 section; gastric sleeve; knee sx; ko1 - Immunization history:: Adult Immunizations unknown. - Social history:: Smoking status: Patient denies any tobacco usage or history of. ROS: 13:49 Constitutional: Negative for fever, and chills. Neck: Negative for injury, pain, and ms3 swelling. 13:49 MS/Extremity: Negative for injury and deformity, Skin: Negative for injury, rash, and discoloration. 13:49 Cardiovascular: Positive for chest pain. 13:49 Abdomen/GI: Positive for constipation. 13:49 Back: Positive for flank pain, on the right. 13:49 All other systems are negative. Exam: 13:49 Constitutional: This is a well developed, well nourished patient who is awake, alert, ms3 and in no acute distress. Head/Face: Normocephalic, atraumatic. Eyes: Pupils equal round and reactive to light, extra-ocular motions intact. Lids and lashes normal. Conjunctiva and sclera are non-icteric and not injected. Periorbital areas with no swelling, redness, or edema. Neck: Trachea midline, no cervical lymphadenopathy. Supple, full range of motion without nuchal rigidity, or vertebral point tenderness. No Meningismus. Chest/axilla: Normal chest wall appearance and motion. Nontender with no deformity. Cardiovascular: Regular rate and rhythm with a normal S1 and S2. No gallops, murmurs, or rubs. Normal PMI, no JVD. No pulse deficits. Respiratory: Lungs have equal breath sounds bilaterally, clear to auscultation and percussion. No rales, rhonchi or wheezes noted. No increased work of breathing, no retractions or nasal flaring. Abdomen/GI: Soft, non-tender, with normal bowel sounds. No distension or tympany. No guarding or rebound. No evidence of tenderness throughout. Skin: Warm, dry with normal turgor. Normal color with no rashes, no lesions, and no evidence of cellulitis. MS/ Extremity: Pulses equal, no cyanosis. Neurovascular intact. Full, normal range of motion. 13:49 ECG was reviewed by the Attending Physician. Vital Signs: 13:49 BP 141 / 68 RA Supine (auto/lg); Pulse 87; Resp 18; Temp 98(O); Pulse Ox 98% on R/A; ko1 Weight 113.85 kg (R); Height 5 ft. 3 in. (160.02 cm) (R); Pain 9/10; 14:20 BP 138 / 68; Pulse 78; Pulse Ox 98% ; ko1 14:32 BP 132 / 55; Pulse 72; Pulse Ox 99% ; ko1 15:03 BP 128 / 56; Pulse 74; Resp 16; Pulse Ox 99% ; Pain 8/10; ko1 17:59 BP 111 / 55; Pulse 92; Pulse Ox 100% ; ko1 13:49 Body Mass Index 44.46 (113.85 kg, 160.02 cm) ko1 MDM: 13:45 Patient medically screened. ms3 13:53 Differential diagnosis: abnormal EKG, acute myocardial infarction, coronary artery ms3 disease chest wall pain, kidney stone vs constipation. 15:16 HEART Score: History: Slightly Suspicious (0), ECG: Non specific repolarization ms3 disturbance / LBTB / PM (1), Age: > 45 and < 65 years (1), Risk Factors: > or = 3 Risk factors for atherosclerotic disease (2), [Hypercholesterolemia] [Hypertension] [DM] Troponin: > 1 and < 3 x normal limit (1), Total Score = 5. Data reviewed: vital signs, nurses notes, lab test result(s), EKG, radiologic studies, and as a result, I will admit patient. 02/13 13:46 Order name: Basic Metabolic Panel; Complete Time: 15:05 ms3 02/13 13:46 Order name: CBC with Diff ms3 02/13 13:46 Order name: Magnesium; Complete Time: 15:05 ms3 02/13 13:46 Order name: Troponin HS; Complete Time: 15:05 ms3 02/13 13:47 Order name: Lipase; Complete Time: 15:05 ms3 02/13 13:47 Order name: Urine Microscopic Only; Complete Time: 15:04 ms3 02/13 13:46 Order name: XRAY Chest (1 view); Complete Time: 14:12 ms3 02/13 13:47 Order name: CT Abd/Pelvis - Without Contrast; Complete Time: 14:12 ms3 02/13 14:15 Order name: Urine Dipstick-Ancillary; Complete Time: 15:04 EDMS 02/13 15:05 Order name: UDS; Complete Time: 16:00 ms3 02/13 15:29 Order name: SARS-COV-2 Antigen Rapid; Complete Time: 16:00 bd 02/13 17:52 Order name: Hemoglobin A1c EDMS 02/13 17:54 Order name: Lipid Profile EDMA 02/13 18:03 Order name: Glucose, Ancillary Testing EDMA 02/13 13:46 Order name: EKG; Complete Time: 13:47 ms3 02/13 13:46 Order name: Cardiac monitoring; Complete Time: 13:49 ms3 02/13 13:46 Order name: EKG - Nurse/Tech; Complete Time: 13:49 ms3 02/13 13:46 Order name: IV Saline Lock; Complete Time: 13:49 ms3 02/13 13:46 Order name: Labs collected and sent; Complete Time: 14:49 ms3 02/13 13:46 Order name: O2 Per Protocol; Complete Time: 13:49 ms3 02/13 13:46 Order name: O2 Sat Monitoring; Complete Time: 13:49 ms3 02/13 13:47 Order name: Urine Dipstick-Ancillary (obtain specimen); Complete Time: 14:15 ms3 02/13 17:14 Order name: CONS Physician Consult EDMS EC:49 Rate is 78 beats/min. Rhythm is regular. QRS [place] is Normal. SC interval is normal. QRS ms3 interval is normal. Clinical impression: NSR w/ Non-specific ST/T Changes. No change from previous ECG on July 07, 2021. Interpreted by me. Reviewed by me. Administered Medications: 14:31 Drug: Ketorolac 10 mg Route: IVP; Site: right antecubital; ko1 14:49 Follow up: Response: No adverse reaction ko1 14:49 Follow up: Response: Pain is decreased ko1 18:37 Not Given (Other Intervention Used; patient transferredd): morphine 2 mg IVP once over ko1 4 mins Disposition Summary: 02/13/22 15:16 Hospitalization Ordered Hospitalization Status: Inpatient Admission ms3 Provider: Edilberto Xiong ms3 Location: Telemetry/MedSur (Inpatient) ms3 Condition: Stable ms3 Problem: new ms3 Symptoms: are unchanged ms3 Bed/Room Type: Standard ms3 Room Assignment: 411(02/13/22 17:19) dw Diagnosis - Chest pain, unspecified ms3 - Elevated Troponin ms3 - Nausea ms3 - Constipation ms3 Forms: - Medication Reconciliation Form ms3 - SBAR form ms3 Signatures: Dispatcher [employer] EDMA Sangeeta Larson RN RN Redd Greer DO DO ms3 Monique Abreu RN RN ko1 Corrections: (The following items were deleted from the chart) 13:56 13:49 Rate is 78 beats/min. Rhythm is regular. QRS [place] is Normal. SC interval is ms3 normal. QRS interval is normal. Clinical impression: NSR w/ Non-specific ST/T Changes. Interpreted by me. Reviewed by me. ms3 17:19 15:16 ms3 dw
[2022-02-13 15:30] LABS: MPV 8.8 fL (7.6-11.3)
[2022-02-13 15:45] LABS: Barbiturates NEGATIVE (NEGATIVE); Benzodiazepines POSITIVE (NEGATIVE); Cocaine NEGATIVE (NEGATIVE); METHAMPHETAM NEGATIVE (NEGATIVE); Methadone NEGATIVE (NEGATIVE); Opiates NEGATIVE (NEGATIVE); Phencyclidine NEGATIVE (NEGATIVE); THC Cannibis NEGATIVE (NEGATIVE)
[2022-02-13 15:54] LABS: SARS-CoV-2 Antigen Rapid Res Negative (Negative)
[2022-02-13] MEDS ORDERED: ASPIRIN 81 MG CHEWABLE TABLET PO ONE (17:15)
[2022-02-13] MEDS ORDERED: GABAPENTIN 300 MG CAP PO PRN (17:15)
[2022-02-13] MEDS ORDERED: ACETAMINOPHEN 325 MG TABLET PO PRN (17:15)
[2022-02-13] MEDS ORDERED: ONDANSETRON 4 MG/2 ML VIAL IV PRN (17:20)
[2022-02-13] MEDS ORDERED: HYDROCODONE/APAP 10/325 TAB ONE (17:20)
[2022-02-13] MEDS ORDERED: FLEET ENEMA ADULT PR ONE (17:22)
[2022-02-13] MEDS: HYDROCODONE/APAP 10/325 TAB PO PRN (17:23)
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
[2022-02-13] MEDS ORDERED: HEPARIN/D5W 25,000 UNIT/500 ML BAG IV PRN (18:00)
[2022-02-13 19:10] LABS: Magnesium 1.9 mg/dL (1.6-2.4); Phosphorus 2.8 mg/dL (2.5-4.9); Thyroid Stimulating Hormone 2.11 uIU/mL (0.358-3.740)
[2022-02-13] MEDS: DULOXETINE 30 MG CAP PO SCH (20:15)
[2022-02-13] MEDS: QUETIAPINE 100MG TAB PO SCH (20:15)
[2022-02-13] MEDS: INSULIN -REGULAR HUMAN 50 UNIT/0.5 ML ML SQ SCH (20:15)
[2022-02-13] MEDS: OXcarbazepine 150 MG TAB PO SCH (20:16)
[2022-02-13 20:21] LABS: Blood Morphology Comment NOT SEEN (NOT SEEN); Platelet Estimate ADEQ; White Blood Cell Scan OK (OK)
[2022-02-13] MEDS ORDERED: HOME MED 1 EA UNK (Duloxetine Hcl [Cymbalta] 60 MG Capsule.Dr) PO SCH (21:00)
[2022-02-13 21:52] VITALS: BMI 44.4
[2022-02-13 23:16] LABS: Protime INR 1.04
[2022-02-14] MEDS: HYDROCODONE/APAP 10/325 TAB PO PRN ×3 (03:50→16:41)
[2022-02-14 03:59] LABS: Absolute Lymphocytes (CBC) 2.4 K/uL (0.7-4.9); Hematocrit 32.8 % (36.0-45.0); Lymphocytes % 38.9 % (15.3-44.8); MCV 87.1 fL (80-100); MPV 8.7 fL (7.6-11.3); RBC Red Blood Cell Count 3.76 M/uL (3.86-4.86)
[2022-02-14 04:11] LABS: Potassium 3.7 mmol/L (3.5-5.1)
[2022-02-14] MEDS: PANTOPRAZOLE 40MG TABLET PO SCH (05:46)
[2022-02-14] MEDS: INSULIN -REGULAR HUMAN 50 UNIT/0.5 ML ML SQ SCH ×4 (07:30→20:43)
[2022-02-14] MEDS ORDERED: INFLUENZA VACCINE (for 6+ mo) 0.5 ML DOSE IMVAC ONE (08:00)
[2022-02-14] MEDS: NICOTINE 21 MG/PAT TD SCH (08:04)
[2022-02-14] MEDS: METOPROLOL TAR 50 MG TAB PO SCH (08:05)
[2022-02-14] MEDS: ASPIRIN 81 MG CHEWABLE TABLET PO SCH (08:06)
[2022-02-14] MEDS: MULTIVITAMIN TAB PO SCH (08:06)
[2022-02-14] MEDS: AMLODIPINE 10 MG TAB PO SCH (08:06)
[2022-02-14] MEDS: MAXZIDE (HCTZ 25/TRIAMTERENE 37.5MG) TAB PO SCH (08:57)
[2022-02-14] MEDS: OXcarbazepine 150 MG TAB PO SCH (08:58)
[2022-02-14] MEDS ORDERED: DULOXETINE 30 MG CAP PO SCH (09:00)
[2022-02-14] MEDS ORDERED: POTASSIUM CL SA 10 MEQ TAB PO ONE (09:00)
[2022-02-14] MEDS ORDERED: HOME MED 1 EA UNK (Metoprolol Tartrate [Lopressor] 100 MG Tablet) PO SCH (09:00)
[2022-02-14] MEDS ORDERED: HOME MED 1 EA UNK (Multivitamin [Multivitamins] Capsule) PO SCH (09:00)
[2022-02-14] MEDS ORDERED: POLYETHYL GLY 3350 17 GM/DOSE PO ONE (09:42)
[2022-02-14] MEDS ORDERED: FLEET ENEMA ADULT PR ONE (09:43)
[2022-02-14] MEDS: LACTULOSE 20 GM/30 ML UCUP PO PRN (13:39)
--- NOTE | 2022-02-14 14:00 | EKG ---
Test Date: 2022-02-13 Test Time: 13:44:14 Fitness Director: NICOLE MEASUREMENT RESULTS: Intervals: Rate: 78 NM: 188 QRSD: 106 QT: 436 QTc: 497 [place]: P: 78 NM: 188 QRS: -20 T: 98 INTERPRETIVE STATEMENTS: Normal sinus rhythm Voltage criteria for left ventricular hypertrophy T wave abnormality, consider lateral ischemia Abnormal ECG Compared to ECG 07/07/2021 20:28:10 Ventricular premature complex(es) no longer present Atrial abnormality no longer present T-wave abnormality still present Possible ischemia still present Electronically Signed On 02-14-22 13:59:30 SPRAY PAINTER by Uli Nicole
--- NOTE | 2022-02-14 17:48 | P.PN ---
Date of Service: 02/14/22 Subjective: substernal chest pain persists but improved also with right flank pain small BM with enema last night no new/worsening symptoms ROS: 10 point ROS as noted above, otherwise negative Physical exam GEN: Alert, oriented, uncomfortable appearing HEENT: Normal conjunctiva, sclera anicteric CV: Regular rate and rhythm, no edema Pulm: Non-labored respirations on room air ABD: Soft, tender to light palpation over R MSK: No joint tenderness Integumentary: No rashes Neuro: Normal speech, normal affect Problem List Chest pain Abdominal pain Constipation DM2 with neuropathy Anxiety/Bipolar disorder h/o GA HTN GERD trop mildly elevated, trending down cath earlier in year was ok; hep drip started on admission cardiology consulted - given prior GA / cardiac history and elevated trop check d-dimer enema last night, another ordered for today suspect most problems due to constipation, chest pain not as severe as prior GA continue bowel regimen CT With other concerning findings continue vehicle monitor technician glc levels Time Spent Managing Pts Care (In Minutes): 35
--- NOTE | 2022-02-14 19:59 | CON ---
Date of Consultation: 02/14/2022 Reason For Consultation: Chest pain. History Of Present Illness: This is a -[id number]-zie female with history of diabetes, depressio n, cardiac arrest in the past, dyslipidemia, hypertension, CVA, and smoker who presents with chest pa in in the substernal area, squeezing type radiating to the left upper extremity, resolved and she has been chest pain free since admission. Of note, patient had coronary angiogram done in April 2021 th at was totally normal. Past Medical History: As outlined above in the HPI. Medications: Refer to reconciliation sheet for detailed list. Allergies: PENICILLIN AND SULFA. Family History: No premature coronary artery disease or cancer. Social History: She is an everyday smoker and drinks on occasion. Does not use any drugs. Review of Systems: All systems reviewed and were negative except for mentioned in HPI. Physical Examination: Vital Signs: Reviewed. Head And Neck: Pupils are equal and reactive to light. Intact eye movements. No JVD. No cervical lymphadenopathy. Neck is supple. Thyroid is not enlarged. Lungs: Clear to auscultation bilaterally. No rhonchi, wheezing, or crackles. No accessory muscle u se. Heart: Regular rate and rhythm. No extra sounds. Abdomen: Soft, nontender. Bowel sounds positive. No organomegaly. No masses or hernia. No rigidi ty or rebound. Extremities: No edema, clubbing, or cyanosis. Intact pulses. Skin: No rashes. Neuro: Alert, awake, and oriented x3. No acute focal deficits appreciated. Lymph Nodes: No cervical or axillary lymphadenopathy. Assessment And Recommendations: 1.Chest pain with borderline elevated troponin. Patient had normal coronary angiogram back in April of this year. This is likely noncardiac pain and this troponin leak is demand ischemia likely. I r ecommend an echocardiogram and plan accordingly. 2.Hyperlipidemia. Continue statin. 3.Hypertension. Blood pressure is controlled. SR/MODL Voice ID: [id number] Report ID: [id number]
[2022-02-14] MEDS: DULOXETINE 30 MG CAP PO SCH (20:42)
[2022-02-14] MEDS: ATORVASTATIN 40 MG TAB PO SCH (20:42)
[2022-02-14] MEDS: QUETIAPINE 100MG TAB PO SCH (20:42)
[2022-02-14] MEDS ORDERED: MORPHINE 2 MG/ML SYR IV ONE (22:27)
[2022-02-15] MEDS: HYDROCODONE/APAP 10/325 TAB PO PRN ×3 (02:44→20:01)
[2022-02-15] MEDS: LACTULOSE 20 GM/30 ML UCUP PO PRN ×2 (04:21→20:02)
[2022-02-15 05:56] LABS: Absolute Lymphocytes (CBC) 2.6 K/uL (0.7-4.9); Hematocrit 35.8 % (36.0-45.0); Lymphocytes % 42.8 % (15.3-44.8); MCV 87.2 fL (80-100); MPV 8.7 fL (7.6-11.3); RBC Red Blood Cell Count 4.11 M/uL (3.86-4.86)
[2022-02-15] MEDS: PANTOPRAZOLE 40MG TABLET PO SCH (05:57)
[2022-02-15 06:17] LABS: Albumin 3.5 g/dL (3.4-5.0); Bilirubin Total 0.2 mg/dL (0.2-1.0); Magnesium 2.4 mg/dL (1.6-2.4); Potassium 4.4 mmol/L (3.5-5.1); Protein, Total 7.8 g/dL (6.4-8.2)
[2022-02-15] MEDS: INSULIN -REGULAR HUMAN 50 UNIT/0.5 ML ML SQ SCH ×4 (07:30→21:00)
[2022-02-15] MEDS ORDERED: LUBIPROSTONE 24 MCG CAP PO SCH (08:00)
[2022-02-15] MEDS: ASPIRIN 81 MG CHEWABLE TABLET PO SCH (08:52)
[2022-02-15] MEDS: MAXZIDE (HCTZ 25/TRIAMTERENE 37.5MG) TAB PO SCH (08:52)
[2022-02-15] MEDS: DOCUSATE NA 100 MG CAP PO SCH ×2 (08:52→20:02)
[2022-02-15] MEDS: NICOTINE 21 MG/PAT TD SCH (08:53)
[2022-02-15] MEDS: METOPROLOL TAR 50 MG TAB PO SCH (08:53)
[2022-02-15] MEDS: AMLODIPINE 10 MG TAB PO SCH (08:53)
[2022-02-15] MEDS: allopurinoL 100 MG TAB PO SCH (08:53)
[2022-02-15] MEDS: MULTIVITAMIN TAB PO SCH (08:53)
[2022-02-15] MEDS ORDERED: MOVANTIK 12.5 MG PO SCH (09:00)
[2022-02-15 09:36] VITALS: O2SAT 98
--- NOTE | 2022-02-15 10:50 | RAD REPORT ---
EXAM DESCRIPTION: CT - Chest For Pe Angio - 02/15/2022 10:33 am CLINICAL HISTORY: Chest pain. substernal pain, to R arm, r/o PE COMPARISON: Chest For Pe Angio dated 11/04/2017; Angio Aorta For Dissection dated 07/07/2021 TECHNIQUE: CT angiogram of the pulmonary arteries was performed with MIP. All CT scans are performed using dose optimization technique as appropriate and may include automated exposure control or mA/KV adjustment according to patient size. FINDINGS: No evidence of pulmonary thromboembolism. No acute aortic finding demonstrated. The lungs are clear. No significant pericardial or pleural fluid. No concerning bony finding. IMPRESSION: No evidence of pulmonary thromboembolism. No acute lung findings.
--- NOTE | 2022-02-15 10:52 | RAD REPORT ---
EXAM DESCRIPTION: CTAbdomen Pelvis W Contrast - 02/15/2022 10:33 am CLINICAL HISTORY: Abdominal pain. r/o obstruction COMPARISON: Abdomen Pelvis W Contrast dated 10/26/2018; CT ABD PELVIS W CONTRAST dated 09/17/2014; CT ABD PELVIS W CONTRAST dated 06/24/2013 TECHNIQUE: Biphasic CT imaging of the abdomen and pelvis was performed with 100 ml non-ionic IV cont rast. All CT scans are performed using dose optimization technique as appropriate and may include automated exposure control or mA/KV adjustment according to patient size. FINDINGS: The lung bases are clear.Postsurgical changes about the stomach. The liver demonstrates mild fatty infiltration. Spleen, pancreas, adrenal glands and kidneys are with in normal limits. No bowel obstruction, free air, free fluid or abscess. The appendix is normal. No evidence of signi ficant lymphadenopathy. No suspicious bony findings. IMPRESSION: No acute intra-abdominal or pelvic finding.
[2022-02-15] MEDS: LINZESS 290 MCG PO SCH (12:28)
[2022-02-15] MEDS ORDERED: MORPHINE 2 MG/ML SYR IV ONE (16:00)
[2022-02-15] MEDS ORDERED: FLEET ENEMA ADULT PR ONE (20:02)
[2022-02-15] MEDS: ATORVASTATIN 40 MG TAB PO SCH (21:14)
[2022-02-15] MEDS: QUETIAPINE 100MG TAB PO SCH (21:14)
[2022-02-15] MEDS: DULOXETINE 30 MG CAP PO SCH (21:14)
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
[2022-02-16] MEDS: HYDROCODONE/APAP 10/325 TAB PO PRN ×2 (04:08→10:56)
[2022-02-16] MEDS: PANTOPRAZOLE 40MG TABLET PO SCH (06:25)
[2022-02-16] MEDS ORDERED: NALOXEGOL OXALATE 12.5 MG TABLET PO SCH ×2 (07:00→09:00)
[2022-02-16] MEDS: INSULIN -REGULAR HUMAN 50 UNIT/0.5 ML ML SQ SCH (07:30)
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
[2022-02-16] MEDS: LINZESS 290 MCG PO SCH (08:16)
[2022-02-16] MEDS: NICOTINE 21 MG/PAT TD SCH (08:17)
[2022-02-16] MEDS: MAXZIDE (HCTZ 25/TRIAMTERENE 37.5MG) TAB PO SCH (08:17)
[2022-02-16] MEDS: MULTIVITAMIN TAB PO SCH (08:17)
[2022-02-16] MEDS: ASPIRIN 81 MG CHEWABLE TABLET PO SCH (08:17)
[2022-02-16] MEDS: AMLODIPINE 10 MG TAB PO SCH (08:18)
[2022-02-16] MEDS: allopurinoL 100 MG TAB PO SCH (08:20)
[2022-02-16] MEDS: DOCUSATE NA 100 MG CAP PO SCH (08:20)
[2022-02-16] MEDS: METOPROLOL TAR 50 MG TAB PO SCH (08:20)
[2022-02-16] MEDS ORDERED: INFLUENZA VACCINE (for 6+ mo) 0.5 ML DOSE IMVAC ONE (09:00)
[2022-02-16 09:17] VITALS: BP 120/58; TEMP 97.8
== END 2022-02-16 12:31 | disposition home or self-care (01) | DRG 392 ==
LOC: ER 13:41 → ERHOLD 17:11 → 4TH 18:07
PROVIDERS: ADMIT Hospitalist; ATTEND Hospitalist
DX: K59.03 Drug induced constipation (principal); I24.8 Other forms of acute ischemic heart disease; Z68.41 Body mass index [BMI] 40.0-44.9, adult; E66.09 Other obesity due to excess calories; I10 Essential (primary) hypertension; E78.5 Hyperlipidemia, unspecified; E11.40 Type 2 diabetes mellitus with diabetic neuropathy, unspecified; K21.9 Gastro-esophageal reflux disease without esophagitis; F41.9 Anxiety disorder, unspecified; T40.2X5A Adverse effect of other opioids, initial encounter; G89.29 Other chronic pain; M79.671 Pain in right foot; F31.9 Bipolar disorder, unspecified; I25.2 Old myocardial infarction; F17.200 Nicotine dependence, unspecified, uncomplicated; R07.9 Chest pain, unspecified; Z23 Encounter for immunization; Z88.1 Allergy status to other antibiotic agents; Z88.0 Allergy status to penicillin; Z86.73 Personal history of transient ischemic attack (TIA), and cerebral infarction without residual deficits; Z98.84 Bariatric surgery status; Z79.82 Long term (current) use of aspirin; Z79.899 Other long term (current) drug therapy; Z86.711 Personal history of pulmonary embolism; Z89.412 Acquired absence of left great toe; Z20.822 Contact with and (suspected) exposure to COVID-19
CPT/HCPCS: 36415; 71045; 71275; 74176; 74177; 80048; 80053; 80061; 80307; 81003; 81015; 82947; 83036; 83690; 83735; 83880; 84100; 84439; 84443; 84484; 85025; 85379; 85610; 85730; 87811; 90471; 93005; 96374; 99285; J1644; J2270; Q2035; Q9967

== ENCOUNTER 2022-02-19 16:19 | Emergency (ER) | payer OTHER ==
--- OUTSIDE RECORDS SUMMARY | 2022-02-19 16:34 | XMS REPORT | Continuity of Care Document ---
:1965 Author Organization [facility] t Address [address] [place] [id number] Care Team Providers Name Role Phone ELI VENTURA Primary Care Physician Unavailable [place] Burnett Attending Clinician Unavailable SATHYA SCHULZ Attending Clinician Unavailable Troy DOTY, Eulalio Foster Attending Clinician EULALIO ARAYA Attending Clinician Unavailable Amelia Borrego RN Attending Clinician Unavailable CRISTINA PIMENTEL Attending Clinician Unavailable Terrence VICTORIA, Joslyn Claudio Attending Clinician LACIE Chin Attending Clinician Unavailable Lacie Dickey Attending Clinician Doctor Unassigned, Kalaheo Attending Clinician Unavailable CAROL VICENTE Attending Clinician Unavailable Iris Pruett MD Attending Clinician Carol Vicente MD Attending Clinician Han DOTY, Cristina Attending Clinician SPRING VELAZQUEZ Attending Clinician Unavailable Andreas MANAGER OF PHARMACY, Kasie Attending Clinician Fatuma HENDERSONP, Елена García Attending Clinician ЕЛЕНА BURRIS Attending Clinician Unavailable Brynn Hernandez RN Attending Clinician Unavailable Only, Ang Db Test Attending Clinician Unavailable Lab, Ang - Db Attending Clinician Unavailable Cassandra Fragoso Attending Clinician Sathya Schulz MD Attending Clinician Tori Chand RN Attending Clinician Unavailable Faye Callahan MD Attending Clinician Only, Adc Test Attending Clinician Unavailable Maximo VICTORIA, Noa Hough Attending Clinician Unavailable [facility] Attending Clinician Unavailable Ame DOTY, Estephania K.H. Attending Clinician ESTEPHANIA MCCLOUD K.H. Attending Clinician Unavailable Serg Fulton DO Attending Clinician Ilana Beal MD Attending Clinician [phone] Jennifer Treadwell Attending Clinician MAMADOU ARANA Attending Clinician Unavailable MAMADOU ARANA Attending Clinician Unavailable Mamadou Arana MD Attending Clinician CHARLEEN SANCHEZ III Attending Clinician Unavailable SATHYA SCHULZ Admitting Clinician Unavailable IRIS PRUETT Admitting Clinician Unavailable Sathya Schulz MD Admitting Clinician Ilana Beal MD Admitting Clinician [phone] Payers Payer Name Policy Type Policy Number Effective Date Expiration Date [facility]yer [facility] [id number] 2018 PLUS 00:00:00 [id number] [place] [id number] 2020 Common HEALTHCARE 00:00:00 [id number] 2010 2018 HEALTHCARE 00:00:00 00:00:00 MEDICAID Problems [...] Added automatic ally from request for surgery [id number] LEN LEN Disease Active Univers (obstructi (obstructi 5-19 it y of ve sleep ve sleep 00:00: [place] apnea) apnea) 00 Medical Branch Essential Essential Disease Active Uni vers hypertensi hypertensi 1-21 it y of on on 00:00: Medical Branch Dyslipidem Dyslipidem Disease Active U nivers ia ia 1-21 ity of 00:00: [place] [facility] Coronary-m Coronary-m Disease Active U nivers yocardial yocardial 1-21 ity of bridge bridge 00:00: [place] [facility] Tobacco Tobacco Disease Active Univers abuse abuse 1-21 ity of 00:00: Medical Branch Morbid Morbid Disease Active 2015-02 Univers obesity obesity 1-16 ity of with body with body 00:00[place] mass index mass index 00 Me dical of of Branch 40.0-49.9 40.0-49.9 Chest pain Chest pain Disease Active 2015-02 U nivers 1-15 ity of 00:00: [place] [address] Medical Branch CVA CVA Disease Active [facility] (cerebral (cerebral 09-07 Luke s vascular vascular 00:00: Medica l accident) accident) 00 Cent er Right-side Right-side Disease Active [facility] d muscle d muscle 08-31kes weakness weakness [facility] [place] Aphasia Aphasia Disease Active [facility] 08-31kes 00:00: Medical [address] [place] [address] Type 2 Type [address] diabetes diabetes 08-30 mellitus mellitus 00:00: [facility] [place] HTN HTN Disease Active [facility] (hypertens (hypertens 08-30 [place] kes ion) ion) 00:00: [address] Metabolic Metabolic Disease Active [facility] syndrome syndrome 08-30 00:00: Medical [address] [place] [address] Morbid Morbid Disease Active [facility] obesity obesity 08-30kes 00:00: [address] History of History of Disease Active [facility] gastric gastric 08-30 [facility] surgery surgery 00:00: [address] History of History of Disease Active C [facility] ND ND 08-30[facility] (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 00:00: Oh dical [address] infarction infarction ) ) H/O H/O Disease Active [facility] 08-30 [facility] section section 00:00: [facility] 00 [place] Smoking Smoking Disease Active [facility] history history 08-30 00:00: Medical 00 [place] Acute CVA Acute CVA Disease Active [facility] (cerebrova (cerebrova 08-29 [place] kes scular scular 00:00: Medical accident) accident) 00 Cent er [id number] Controlled Problem Active Co mmon type 2 Spirit diabetes - [facility] mellitus [facility] without [facility] complicati Medica l on, Center without long-term current use of insulin [id number] Bipolar Problem Active Commo n affective Spirit disorder, - [facility] current [facility] episode [facility] depressed, Medica l current Center episode severity unspecifie d [id number] Depression Problem Active Com mon with Spirit anxiety - [facility] [id number] Chronic Problem Active Commo n pain Spirit syndrome - [facility] [id number] HTN Problem Active Common (hypertens Spirit ion), - CHI benign [facility] [id number] Primary Problem Active Comm on osteoarthr Spirit itis of - CHI left knee [facility] [id number] Seasonal Problem Active Comm on allergies Spirit - [facility] [id number] Hypercalce Problem Active Com mon marcin [facility] [id number] Mixed Problem Active Common hyperlipid Spirit emia - CH[facility] [id number] Neuropathy Problem Active Co mmon Spirit - [facility] [id number] GERD Problem Active Common without Spirit esophagiti - CHI s [facility] [id number] History of Problem Active Co mmon CVA Spirit (cerebrova - CHI scular St accident) [facility] without Medical residual Center deficits [id number] Constipati Problem Active Com mon on, Spirit unspecifie - [facility] d [facility] constipati [facility] on type Medical Center Allergies, Adverse [...] Branch MORPHINE Allergy Active Low Rash [facility] SULFA Allergy Active Low Rash [facility] (SULFONA kes [facility] Medical ANTIBIOT Center ICS) Morphine Drug Active Rash [facility] Sulfa Drug Active Rash [facility] (Sulfona Allergy [facility] Medical Antibiot Center ics) 0 Drug Active Unknown Common allergy [facility] Social History Social Habit Start Date Stop Date Quantity Comments Source History of Tobacco Current Smoker Co mmon Spirit - Use [facility] Exposure to 2021-06-25 2021-07-05 Not sure University of SARS-CoV-2 (event) 00:00:00 14:31:00 [place] [facility] History SDOH 2019-12-09 2019-12-09 5 University o f Financial 00:00:00 00:00:00 [place] [facility] History [facility] Food 2019-12-09 2019-12-09 1 Univers ity of Worry 00:00:00 00:00:00 [place] [facility] History SDVT Food 2019-12-09 2019-12-09 1 Univers ity of Scarcity 00:00:00 00:00:00 [place] [facility] History [facility] 2019-12-09 2019-12-09 2 University o f Transport Med 00:00:00 00:00:00 [place] Medic al Branch History [facility] 2019-12-09 2019-12-09 2 University o f Transport Non-Med 00:00:00 00:00:00 [facility] [place] Cigarettes smoked 2016-01-10 2016-01-10 Univers ity of current (pack per 00:00:00 00:00:00 [facility] ) - Reported Branch Cigarette 2016-01-10 2016-01-10 University of pack-years 00:00:00 00:00:00 [facility] Tobacco use and 2016-01-10 2016-01-10 Never used Universit y of exposure 00:00:00 00:00:00 [facility] Alcohol intake 2015-09-08 2015-09-[address] [facility] [address] [place] es 00:00:00 00:00:00 non-drinker of Medical nter alcohol (finding) Sex Ass[birth year] [facility] kes 00:00:00 00:00:00 [facility] Smoking Status Start Date Stop Date Source Current Smoker 2020-05-09 00:00:00 Common Spiri t - [facility] Never smoker [facility] Medications Ordered Filled Start Stop Current [...] by ity of tablet 00:00: mouth 3 [place] (three) Medical times Branch daily as needed. metoprolol 0 Yes 25mg Take 25 mg U nivers tartrate 25 4-08 by mouth 2 it y of mg tablet 00:00: (two) [place] 00 times Medical daily. Branch butalbital- 0 Yes Dayron s acetaminoph 4-08 ity of en-caff 00:00: [place] 50-325-40 00 Medical mg tablet Branch ALPRAZolam 2021-0 Yes .25mg Take 0.25 U nivers 0.25 mg 4-08 mg by ity of tablet 00:00: mouth 3 [place] 00 (three) Medical times Branch daily as needed. metFORMIN Yes [id number] 1000mg Take 1 Univers 1,000 mg 2-10 tablet by ity of tablet 00:00: mouth 2 [place] (two) Medical times Branch daily with meals. atorvastati 0 Yes [id number] 40mg Take 1 Univers n (LIPITOR) 2-10 tablet by ity of 40 mg 00:00: mouth at [place] tablet 00 bedtime. Medical Branch metFORMIN 2021-0 Yes [id number] 1000mg Take 1 Univers 1,000 mg 2-10 tablet by ity of tablet 00:00: mouth 2 [place] 00 (two) Medical times Branch daily with meals. atorvastati 0 Yes [id number] 40mg Take 1 Univers n (LIPITOR) 2-10 [...] 200 mg 2-07 ity of tablet 00:00: [place] 00 Medical Branch Diclofenac 2021-0 Yes APPLY [...] TOPICALLY ity of gel 00:00: TO THE [place] AFFECTED Medical AREA FOUR Branch TIMES DAILY [...] FOR Branch 14 DAYS triamcinolo 2020-02 Yes [id number] Apply to Univers ne 0-14 area(s) 2 ity of acetonide 00:00: (two) [place] 0.1 % cream 00 times Medical daily. Branch triamcinolo 2020-02 Yes [id number] Apply to Univers ne 0-14 area(s) 2 ity of acetonide 00:00: (two) [place] 0.1 % cream 00 times Medical daily. Branch triamterene 2020-02 Yes [id number] 1{capsu Take 1 Univers -hydrochlor 0-12 le} capsule by it y of othiazide 00:00: mouth [place] 37.5-25 mg 00 every Medical per capsule morning. [facility] triamterene 2020-02 Yes [id number] 1{capsu Take 1 Univers -hydrochlor 0-12 le} capsule by it y of othiazide 00:00: mouth [place] 37.5-25 mg 00 every Medical per capsule morning. [facility] aspirin 81 Yes 81mg Take 81 mg U nivers mg chewable 9-28 by mouth ity of tablet 16:55: daily. [address] DULoxetine Yes 30mg Take 30 mg U nivers (CYMBALTA) 9-28 by mouth ity o f 30 mg 16:55: daily. [address] amitriptyli Yes 25mg Take 25 mg Univers ne 25 mg 9-28 by mouth ity of tablet 16:55: at bedtime [place] [address] as needed Medical for Branch Insomnia. DULoxetine Yes 60mg Take 60 mg U nivers (CYMBALTA) 9-28 by mouth ity o f 60 mg 16:55: daily. [address] aspirin 81 Yes 81mg Take 81 mg U nivers mg chewable 9-28 by mouth ity of tablet 16:55: daily. [address] DULoxetine Yes 30mg Take 30 mg U nivers (CYMBALTA) 9-28 by mouth ity o f 30 mg 16:55: daily. [address] amitriptyli Yes 25mg Take 25 mg Univers ne 25 mg 9-28 by mouth ity of tablet 16:55: at bedtime [place] [address] as needed Medical for Branch Insomnia. DULoxetine Yes 60mg Take 60 mg U nivers (CYMBALTA) 9-28 by mouth ity o f 60 mg 16:55: daily. [address] Ibuprofen Ibuprofen No TID Ibuprofen 600 MG 600 MG 3-29 600 MG 00:00: 00 diltiazem Yes [id number] 360mg Take 1 U nivers 360 mg 24 3-03 capsule by ity of hr capsule 00:00: mouth [place] 00 daily. [facility] [place] [facility] diltiazem Yes [id number] 360mg Take 1 U nivers 360 mg 24 3-03 capsule by ity of hr capsule 00:00: mouth [place] 00 daily. [facility] [place] [facility] nitroglycer 2019-[id number] 1 Univers in 0.4 mg 0-27 tablet ity of sublingual 00:00: [place] tablet 00 tongue Medical every 5 Branch (five) minutes as needed for Chest pain. pantoprazol 2019-02 Yes [id number] 40mg Take 1 Univers e 40 mg EC 0-27 tablet by ity of tablet 00:00: mouth [place] 00 daily. Medical Branch nitroglycer 2019-[id number] 1 Univers in 0.4 mg 0-27 tablet ity of sublingual 00:00: [place] tablet 00 tongue Medical every 5 Branch (five) minutes as needed for Chest pain. pantoprazol 2019-02 Yes [id number] 40mg Take 1 Univers e 40 mg EC 0-27 tablet by ity of tablet 00:00: mouth [place] 00 daily. Medical Branch Euflexxa Euflexxa 2020-0 No 2mL Commo n 3-16 Spirit 00:00: - [facility] Euflexxa Euflexxa 2020-0 No 2mL Commo n 3-09 Spirit 00:00: - [facility] Euflexxa Euflexxa 2020-0 No 2mL Commo n 3-02 Spirit 00:00: - [facility] Kenalog Kenalog 2018-1 No 40mg Common (Triamcinol (Triamcinol 1-27 S pirit one) one) 00:00: - [facility] Kenalog Kenalog 2017- No 40mg Common (Triamcinol (Triamcinol 1-05 S pirit one) one) 00:00: - [facility] gabapentin 2015-02 Yes 300mg Take 1 Univ [...] times daily with breakfast and dinner. DULoxetine 2015-0 Yes 30mg QD Take 30 mg C [...] 7-14 by mouth [facility] tablet 13:23: daily. Medical [address] [place] [address] amLODIPine 2015-0 Yes 10mg QD Take 10 mg C [...] MG 13:23: every Medical capsule 19 morning. [place] DULoxetine Yes 60mg QD Take [address] (CYMBALTA) 7-14 by mouth [facility] 60 MG 13:23: nightly. Medical capsule 19 [place] aspirin 81 Yes 81mg QD Take [address] MG EC 7-14 by mouth [facility] tablet 13:23: daily. [address] Metformin Metformin Yes [place] 1 tablet Common HCl HCl Burnett with a Spirit meal - [facility] Diltiazem Diltiazem Yes [place] TK 1 C PO Common HCl ER HCl ER Burnett D Spirit Coated Coated - [facility] B[facility] Oxcarbazepi Oxcarbazepi Yes [place] 1 tablet Common ne ne Burnett Spirit [facility] Duloxetine Duloxetine Yes [place] 1 capsule Common HCl HCl Burnett Spirit [facility] Sumatriptan Sumatriptan Yes [place] 1 tablet Common Succinate Succinate Burnett at least 2 Spirit hours - [facility]I between [facility] doses as [facility] Nexium Nexium Yes [place] 1 capsule Comm on Burnett Spirit [facility] Butalbital- Butalbital- Yes [place] 1 capsule Common ASA-Caffein ASA-Caffein Burnett as needed Spirit e e - [facility] Quetiapine Quetiapine Yes [place] 1 tablet Common Fumarate Fumarate Burnett [facility] Plavix Plavix Yes [place] 1 tablet Commo n Burnett [facility] Hydrocodone Hydrocodone Yes [place] as Common -Acetaminop -Acetaminop Burnett directed Spirit hen hen [facility] Diclofenac Diclofenac Yes [place] 1 tablet Common Sodium Sodium Burnett with food Spiri t or milk [facility] Ondansetron Ondansetron Yes [place] 1 tablet Common Burnett on the [facility] tongue and - CHI allow to [facility] Cyclobenzap Cyclobenzap Yes [place] 1 tablet Common rine HCl rine HCl Burnett as needed S pirit [facility] Gabapentin Gabapentin Yes [place] 1 capsule Common Burnett [facility] Dyazide Dyazide Yes [place] 1 capsule Co mmon Burnett in the Spirit morning [facility] Amitriptyli Amitriptyli Yes [place] 1 tablet Common ne HCl ne HCl Burnett at bedtime Spir [facility] Atorvastati Atorvastati Yes [place] 1 tablet Common n Calcium n Calcium Burnett Spir [facility] Linzess Linzess Yes [place] 1 capsule Co mmon Burnett at least Spirit 30 minutes - CHI before the St first meal [facility] of the day Medical on an Center empty stomach Amitiza Amitiza Yes [place] 1 capsule Co mmon Burnett with food [facility] and water [facility] Alprazolam Alprazolam Yes [place] 1 tablet Common Burnett [facility] NexIUM 40 NexIUM 40 No [...] Immunizations Ordered Filled Immunization Date Status Comments [facility] e Immunization Name Name Influenza Virus 2021-04-06 Completed Universit y of Vaccine Quad IM, 00:00:00 [facility] dical Preserv and ABX Branch Free 6 MO-64 YRS Influenza Virus 2021-04-06 Completed Universit y of Vaccine Quad IM, 00:00:00 [facility] dical Preserv and ABX Branch Free 6 MO-64 YRS SARS-COV-2 COVID-19 2021-03-15 Completed Unive rsity of MODERNA VACCINE 00:00:00 [facility] SARS-COV-2 COVID-19 2021-03-15 Completed Unive rsity of MODERNA VACCINE 00:00:00 [facility] SARS-COV-2 COVID-19 2020-09-07 Completed Unive rsity of MODERNA VACCINE 00:00:00 [place] Med ical Branch SARS-COV-2 COVID-19 2020-09-07 Completed Unive rsity of MODERNA VACCINE 00:00:00 [facility] Branch SARS-COV-2 COVID-19 2020-08-08 Completed Unive rsity of MODERNA VACCINE 00:00:00 [facility] Branch SARS-COV-2 COVID-19 2020-08-08 Completed Unive rsity of MODERNA VACCINE 00:00:00 [facility] Flucelvax - Flucelvax - 2019-04-16 Completed Common Spiri t - multidose vial multidose vial 14:09:00 [facility] Flucelvax - Flucelvax - 2019-04-16 Completed Common Spiri t - multidose vial multidose vial 00:00:00 [facility] Vital Signs Vital Name Observation Time Observation Value Comments Source Systolic blood 2021-07-05 21:08:00 148 mm[Hg] Univer sity of pressure [facility] Diastolic blood 2021-07-05 21:08:00 90 mm[Hg] Unive rsity of pressure [facility] Heart rate 2021-07-05 21:08:00 89 /min [facility] Body temperature 2021-07-05 19:44:00 36.56 [facility] height 2021-07-05 19:44:00 160 cm [facility] Body weight 2021-07-05 19:44:00 130.137 kg [facility] BMI 2021-07-05 19:44:00 50.82 kg/m2 [facility] Oxygen saturation in 2021-07-05 19:44:00 99 /min [facility] blood by [facility] Pulse oximetry Branch Procedures This patient has no known procedures. Encounters Start End Encounter Admission Attending Care Care Encounter Source Date/Time Date/Time Type Type Clinicians Facility Department ID 2021-07-12 [facility] [id number] Common 16:16:00 [place] [facility] 2021-03-22 Outpatient Lex [facility] [id number] Common 12:43:31 [place] [facility] 2021-03-22 Outpatient Burnett, STLMLC STLMLC [id number] Common 12:34:26 [place] [address] [facility] 2021-03-22 Outpatient Burnett, STLMLC STLMLC [id number] Common 12:07:40 [place] [address] [facility] 2021-03-22 Outpatient Burnett, STLMLC STLMLC [id number] Common 11:56:38 [place] [address] [facility] 2021-03-22 Outpatient Burnett, STLMLC STLMLC [id number] Common 11:36:33 [place] [address] [facility] 2021-03-22 Outpatient Burnett, STLMLC STLMLC [id number] Common 11:21:57 [place] [address] [facility] 2021-03-22 Outpatient Burnett, STLMLC STLMLC [id number] Common 11:08:32 [place] [address] [facility] 2021-03-22 Outpatient Burnett, STLMLC STLMLC [id number] Common 11:07:34 [place] [address] [facility] 2021-03-22 Outpatient Burnett, STLMLC STLMLC [id number] Common 11:05:30 [place] [address] [facility] 2021-03-22 Outpatient Burnett, STLMLC STLMLC [id number] Common 11:04:39 [place] [address] [facility] 2020-12-25 Emergency [facility] [id number] Univers 23:42:02 [facility] 2020-12-25 Outpatient BELLAI, [facility] SPL [id number] Univers 17:18:11 SATHYA [facility] 2020-12-23 Emergency [facility] [id number] Univers 22:47:17 [facility] 2020-12-23 Emergency [facility] [id number] Univers 16:11:18 [facility] 2021-08-30 2021-08-30 Outpatient EL [facility] [id number] [facility] 00:00:00 00:00:00 2021-08-23 2021-08-23 [facility] [id number] 23:59:00 23:59:00 Encounter [place] [facility] 2021-08-23 2021-08-23 [facility] [id number] 23:59:00 23:59:00 Encounter [facility] 2021-08-23 2021-08-23 Outpatient EL TROY [facility] [id number] [facility] 00:00:00 23:59:00 EULALIO 2021-08-21 2021-08-21 Outpatient EL [facility] [id number] [facility] 00:00:00 00:00:00 2021-08-12 2021-08-12 [facility] [id number] 00:00:00 00:00:00 [facility] 2021-08-12 2021-08-12 Telephone [facility] [id number] 00:00:00 00:00:00 [facility] 2021-08-11 2021-08-11 Outpatient R HAN, [facility] [id number] Univers 13:20:00 13:20:00 AMRITJIMENEZ vic [facility] 2021-08-11 2021-08-11 Outpatient R HAN, [facility] [id number] Univers 13:20:00 13:20:00 BANNERJIMENEZ montesy o [facility] 2021-08-11 2021-08-11 Telephone [facility] [id number] 00:00:00 00:00:00 Joslyn jhaveri Kristi R Medic al [place] 2021-08-11 2021-08-11 Telephone [facility] [id number] 00:00:00 00:00:00 Joslyn jhaveri Kristi R Medic al [place] 2021-07-12 2021-07-12 (TEL) [facility] [id number] Co mmon 00:00:00 00:00:00 Spirit - [facility] 2021-07-05 2021-07-05 Outpatient R RADHA, [facility] [id number] Univers 15:00:00 15:38:09 LACIE ho [facility] 2021-07-05 2021-07-05 [facility] [id number] Univers 15:00:00 15:38:09 Visit Lacie [place] [facility] [id number] i ty [facility] [id number] Emmanuel as TOO?BLEA [id number] [address] MEDICAL OFFICE [facility] 2021-06-29 2021-06-29 Orders Doctor REDDY [id number] Univers 00:00:00 00:00:00 Only Unassigned, JASNO [id number] ity of [facility] [id number] Emmanuel as [id number] [address] 2021-06-07 2021-06-07 [facility] [id number] Univers 15:40:00 15:40:00 CRISTINA jyotiperry o [facility] 2021-06-01 2021-06-01 [facility] [id number] Univers 14:40:00 14:40:00 CRISTINA jyotiperry o [facility] 2021-06-01 2021-06-01 [facility]phone [facility] [id number] Univers 00:00:00 00:00:00 Lacie [place] HEALTH [id number] i ty of [place] 4.2.7.2.686 Emmanuel as TOO?BLEA [id number] [address] MEDICAL OFFICE [facility] 2021-05-16 2021-05-16 Emergency X JHON MTMARQUITA ERT [id number] Univers 17:47:00 22:54:00 CAROL ho [facility] 2021-05-16 2021-05-[address] [facility] [id number] Univers 17:47:00 22:54:00 Carol Vicente S [place] [id number] ity of [place] 4[place]2.7.2.686 [place] [id number] [facility] 084 [place] 2021-05-15 2021-05-15 [facility] [id number] Univers 00:00:00 00:00:00 Crist[facility] [id number] ity [facility] [id number] [place] [facility] [id number] Oh shakir MARTÍNEZ 059 [facility] 2021-05-04 2021-05-04 Outpatient Shanon VELAZQUEZ [facility] [id number] Univers 10:30:00 10:30:00 [facility] 2021-05-03 2021-05-03 Outpatient Shanon VELAZQUEZ [facility] [id number] Univers 13:00:00 13:00:00 [facility] 2021-04-28 2021-04-28 Outpatient Shanon TOMAS [facility] [id number] Univers 13:00:00 13:00:00 [facility] 2021-04-27 2021-04-27 [facility] [id number] Univers 14:30:00 15:19:29 [facility] 2021-04-26 2021-04-26 Outpatient [facility] [id number] Univers 12:30:00 12:30:00 [facility] 2021-04-06 2021-04-06 Office [facility] 1.2.840.114 [id number] Univers 14:00:00 15:51:55 Visit [facility] 350.1.13.10 i ty of [place] 4.2.7.2.686 Emmanuel as TOO?BLEA [phone] Oh shakir GANDARAEY [address] [place] MEDICAL OFFICE [facility] 2021-04-06 2021-04-06 Outpatient Shanon TOMAS [facility] [id number] Univers 14:00:00 15:51:55 LACIE [facility] 2021-04-06 2021-04-06 Outpatient [facility] [id number] Univers 14:00:00 14:00:00 LACIE ho [facility] 2021-04-05 2021-04-05 Outpatient R RADHA, [facility] [id number] Univers 14:00:00 14:00:00 LACIE ho [facility] 2021-01-25 2021-01-25 Outpatient R RADHA, [facility] [id number] Univers 11:00:00 11:00:00 LACIE ho [facility] 2020-12-08 2020-12-08 Office Radha, [facility] 1.2.840.114 [id number] Univers 12:34:35 13:29:22 Visit Lacie Stratton [facility] 350.1.13.10 i Tiesha 4.2.7.2.686 Emmanuel as Too?Blea [phone] Oh sarahfl kney [address] [place] Medical Office [facility] 2020-12-08 2020-12-08 Outpatient R [facility] [id number] Univers 12:30:00 12:30:00 LACIE ho [facility] 2020-12-06 2020-12-06 Office Han, [facility] 1.2.840.114 [id number] Univers 15:42:45 16:02:45 Visit Fabriziojimenez [place] 350.1.13.10 [place] [phone] Oh shakir martínez [address] [facility] 2020-12-06 2020-12-06 Outpatient R HAN, [facility] [id number] Univers 16:00:00 16:00:00 FABRIZIOJIMENEZ vic o [facility] 2020-12-05 2020-12-05 Outpatient R HAN, [facility] [id number] Univers 14:20:00 14:20:00 CRISTINA ho o f [facility] 2020-11-23 2020-11-23 Outpatient PRIV PRIV [id number] 4-2 [facility] 00:00:00 00:00:00 [id number] Medica l 2020-11-22 2020-11-[address] [facility] 1.2.840.114 [id number] Univers 16:50:10 17:10:10 Care Fatuma, Елена J [facility] 350.1.13.10 ity of [place] 4.2.7.2.686 Emmanuel as Too?Blea [phone] [address] Medical Office [facility] 2020-11-22 2020-11-[address] [facility] [id number] Univers 17:00:00 17:00:00 ЕЛЕНА meza hong [facility] 2020-11-10 2020-11-10 Telephone [facility] 1.2.682.626 [id number] [facility] 00:00:00 00:00:00 Lacie A Health 350.1.13.10 i ty of [place] 4.2.7.2.686 Emmanuel as Too?Blea [phone] [address] Office [facility] 2020-11-05 2020-11-05 Telephone REDDY Hernandez 1.2.506.205 [id number] [facility] 00:00:00 00:00:00 Brynn TAPIA 350.1.13.10 i ty of HOSPITAL 4.2.7.2.686 Emmanuel as [phone] [address] 2020-11-03 2020-11-03 Laboratory Only, Ang Db Test [facility] 1.2.8 40.114 [id number] Univers 19:12:03 19:27:03 Only Елена [facility] 350.1.13.10 ity of [place] 4.2.7.2.686 Emmanuel as Too?Blea [phone] [address] Medical Office [facility] 2020-11-03 2020-11-[address] [facility] [id number] Univers 19:25:00 19:25:00 ЕЛЕНА meza hong [facility] 2020-10-27 2020-10-27 [facility] 1.2.840.114 [id number] Univers 13:55:52 15:49:42 Visit Lacie [facility] 350.1.13.10 i ty of [place] 4.2.7.2.686 Emmanuel as Too?Blea [phone] Me dical kney 044 [facility] 2020-10-27 2020-10-27 Bad Work [facility] Lab, Ang - Db [facility] 1.2.840.1 14 [id number] Univers 15:25:48 15:40:48 Visit Lacie Tomas 350.1.13.10 ity of [place] 4.2.7.2.686 Emmanuel as Too?Blea [phone] Oh dical kney 353 [facility] 2020-10-27 2020-10-27 Outpatient R RADHA [facility] [id number] Univers 13:30:00 13:30:00 LACIE itperry [facility] 2020-09-12 2020-09-12 Telephone [facility] 1.2.935.968 [id number] Univers 00:00:00 00:00:00 Cristina Castilloton 350.1.13.10 ity of [employer] [place] [phone] Oh dical nal 059 [facility] 2020-09-12 2020-09-12 Telephone [facility] 1.2.805.547 [id number] 00:00:00 00:00:00 Qiangjun [place] 350.1.13.10 [employer] 4.2.7.2.686 Professio [phone] [address] 2020-08-01 2020-08-01 Emergency [facility] 1.2.464.027 [id number] Univers 16:53:00 20:11:00 Cassandra R [place] 350.1.13.10 i ty of [employer] [place].2.[place] [phone] [facility] [address] [place] 2020-08-01 2020-08-01 Emergency [facility] 1.2.461.225 [id number] 16:53:00 20:11:00 Cassandra R [place] 350.1.13.10 [employer] 4.2.7.2.686 [place] [phone] [facility] 2020-08-01 2020-08-01 Telephone GAGAN Schulz 1..840.114 8 [id number] Univers 00:00:00 00:00:00 Ludwik K Y HEALTH 350.1.13.10 ity of CLINICS [place].2.[place] [phone] [facility] [address] 2020-08-01 2020-08-01 Telephone VIKAS Schulz 1.2.840.114 [id number] 00:00:00 00:00:00 Sathya Robison HEALTH 350.1.13.10 CLINICS [id number] 2020-07-20 2020-07-20 TelemedicVIKAS Van 1.2.840.114 [id number] Univers 12:21:31 12:36:31 ne Visit Sathya RODRIGUEZ 350.1.13.10 ity of CLINICS [place].2.7.2.[place] [phone] [facility] [address] 2020-07-20 2020-07-20 Telemedic Jazz [facility] 1.2.840.114 [id number] 12:21:31 12:36:31 ne Visit Sathya RODRIGUEZ 350.1.13.10 CLINICS 4.2.7.2.686 [id number] 2020-07-20 2020-07-20 Outpatient Shanon SCHULZ [facility] [id number] Univers 11:45:00 11:45:00 SATHYA ity [facility] 2020-07-19 2020-07-19 Telephone VIKAS Schulz 1.2.840.114 [id number] Univers 00:00:00 00:00:00 Sathya Robison HEALTH 350.1.13.10 ity of CL[place]ICS [place] [phone] [facility] [address] 2020-07-15 2020-07-15 Hospital Molly Schulz 1.2.226.272 [id number] Univers 07:17:00 13:04:00 Encounter Sathya Tapia 350.1.13.10 ity of Hospital 4.2.7.2.686 Emmanuel as [phone] [facility] [address] 2020-07-15 2020-07-15 Surgery Molly Schulz 1.2.840.114 [id number] Univers 09:44:00 12:25:00 Sathya Tapia 350.1.13.10 i ty of Hospital 4.2.7.2.686 Emmanuel as [phone] [facility] [address] 2020-07-15 2020-07-15 Anesthesia Mannie Tori Barnes 1.2.840. 114 [id number] Univers 10:25:00 12:15:00 Event Faye Callahan Jason 350.1.13.10 ity of [facility] 4.2.7.2.686 Emmanuel as [phone] [facility] [address] 2020-07-13 2020-07-13 Laboratory Only, Adc Test [facility] 1.2.840. 114 [id number] Univers 14:32:53 14:47:53 Only Sathya Schulz 350.1.13.10 ity of [employer] [place].2.[place].2.[place] [phone] [facility] [address] 2020-07-13 2020-07-13 Outpatient R [facility] [id number] Univers 13:30:00 13:30:00 ity of [facility] 2020-07-13 2020-07-13 Orders Doctor REDDY 1.2.840.114 [id number] Univers 00:00:00 00:00:00 Only Unassigned, JASON 350.1.13.10 ity of [place] [facility] 4.2.7.2.686 Emmanuel as [phone] [facility] [address] 2020-07-06 2020-07-06 Telephone Maximo Umana 1.2.840.114 [id number] Univers 00:00:00 00:00:00 , Noa Pierre 350.1.13.10 ity of [place].2.7.2.[place] [phone] [facility] [address] 2020-06-23 2020-06-23 Orders Doctor REDDY 1.2.840.114 [id number] Univers 00:00:00 00:00:00 Only Unassigned, JASON 350.1.13.10 ity of [place] [facility] 4.2.7.2.686 Emmanuel as [phone] [facility] [address] [place] 2020-06-22 2020-06-22 Bad Work Gatherer [facility] 1.2.840.114 [id number] Univers 12:57:30 13:44:59 Visit Sathya Schulz 350.1.13.10 ity of CLINICS 4.2.7.2.[place] [phone] [facility] [address] 2020-06-22 2020-06-22 Office VIKAS Schulz 1.2.840.114 [id number] [facility] 11:41:57 12:56:42 Visit [facility] 350.1.13.10 ity of CLINICS 4.2.[place].2.[place] [phone] [facility] [address] 2020-06-22 2020-06-22 Outpatient R JAZZ [facility] [id number] [facility] 11:30:00 11:30:00 [facility] 2020-06-22 2020-06-22 Orders Doctor REDDY 1.2.840.114 [id number] Univers 00:00:00 00:00:00 Only Unassigned, JASON 350.1.13.10 ity of [place] [facility] 4.2.7.2.686 Emmanuel as [phone] [facility] [address] [place] 2020-06-21 2020-06-21 Orders Doctor REDDY 1.2.840.114 [id number] Univers 00:00:00 00:00:00 Only Unassigned, JASON 350.1.13.10 ity of [place] [facility] 4.2.7.2.686 Emmanuel as [phone] [facility] [address] [place] 2020-06-20 2020-06-20 Telephone [facility] 1.2.272.131 [id number] Univers 00:00:00 00:00:00 Estephania Guevara 350.1.13.10 ity of [employer] [place].2.[place].2.[place] [phone] Oh [facility] 059 [facility] 2020-06-15 2020-06-[address] [facility] 1.2.840.114 [id number] Univers 00:00:00 00:00:00 Ludwik K SPECIALTY 350.1.13.10 ity of C[place] AT [phone] Oh dical VICTORY 201 [facility] 2020-06-13 2020-06-13 [facility] 1.2.618.076 [id number] Univers 13:07:04 23:59:00 Encounter Ludwik K SPECIALTY 350.1.13.10 ity of C[place]2.[place].2.[place] AT [phone] Oh dical VICTORY 802 [facility] 2020-06-13 2020-06-13 Outpatient R [facility] [id number] Univers 13:06:54 13:06:54 LUDWIK ity of [facility] 2020-06-13 2020-06-13 [facility] 1.2.109.713 [id number] Univers 13:06:54 13:06:54 Encounter Dantek K SPECIALTY 350.1.13.10 ity of C[place]2.[place].2.[place] [phone] Oh dicrachel URIBE 802 [facility] 2020-06-10 2020-06-10 Orders Doctor REDDY 1.2.840.114 [id number] Univers 00:00:00 00:00:00 Only Unassigned, JASON 350.1.13.10 ity of [place] [facility] 4.2.7.2.686 Emmanuel as [phone] [address] 2020-06-07 2020-06-07 [facility] 1.2.840.114 [id number] Univers 00:00:00 00:00:00 Cristian Guevara 350.1.13.10 ity of [employer] 4.2.7.2.[place] [phone] Oh dical nal 059 [facility] 2020-06-01 2020-06-01 Telephone [facility] 1.2.840.114 [id number] Univers 00:00:00 00:00:00 Dantek K SPECIALTY 350.1.13.10 ity of CARE [place].2.7.2.[place] C[place] AT [phone] Oh dical VICTORY 201 [facility] 2020-05-31 2020-05-31 Office [facility] 1.2.840.114 [id number] Univers 13:58:50 14:29:43 Visit Estephania Guevara 350.1.13.10 ity of [employer] 4.2.7.2.[place] [phone] Oh dical nal 059 [facility] 2020-05-31 2020-05-31 Outpatient R [facility] [id number] Univers 14:00:00 14:00:00 SENDIL itperry [facility] 2020-05-19 2020-05-19 Office [facility] 1.2.840.114 [id number] Univers 13:08:36 14:28:05 Visit Sathya Fu SPECIALTY 350.1.13.10 ity of C[place].2.[place] [phone] Oh dical VICTORY [address] [place] [address] 2020-05-19 2020-05-19 Outpatient R JAZZ [facility] [id number] Univers 13:15:00 13:15:00 SATHYA ho [facility] 2020-05-19 2020-05-19 Letter [facility] 1.2.840.114 [id number] Univers 00:00:00 00:00:00 (Out) Sathya Fu SPECIALTY 350.1.13.10 ity of C[place]2.[place].2.[place] [phone] Oh dical VICTORY 201 [facility] 2020-05-19 2020-05-19 Orders Doctor BLAKELY 1.2.840.114 [id number] Univers 00:00:00 00:00:00 Only Unassigned, JASON 350.1.13.10 ity of [place] [facility] 4.2.7.2.686 Emmanuel as [phone] [address] 2020-05-19 2020-05-19 Outpatient STLMLC STLMLC [id number] Common 00:00:00 00:00:00 [facility] 2020-05-11 2020-05-11 Orders Doctor REDDY 1.2.840.114 [id number] Univers 00:00:00 00:00:00 Only Unassigned, JASON 350.1.13.10 [facility] 4.2.7.2.686 Emmanuel as [phone] [place] [address] [address] 2020-05-11 2020-05-11 Outpatient STLMLC STLMLC [id number] Common 00:00:00 00:00:00 [facility] 2020-05-10 2020-05-10 Outpatient STLMLC STLMLC [id number] Common 00:00:00 00:00:00 [facility] 2020-05-09 2020-05-09 Outpatient STLMLC STLMLC [id number] Common 00:00:00 00:00:00 [facility] 2020-05-02 2020-05-02 Outpatient STLMLC STLMLC [id number] Common 00:00:00 00:00:00 [facility] 2020-04-26 2020-04-26 [facility]iddhartha [facility] 1.2.315.973 [id number] Univers 00:00:00 00:00:00 Cristina Guevara 350.1.13.10 ity of [employer] [place].2.[place].2.[place] [phone] Oh dical nal 9 [facility] 2020-04-26 2020-04-26 Refill [facility] 1.2.840.114 [id number] Univers 00:00:00 00:00:00 Cristina [place] 350.1.13.10 ity of [employer] [place].2.[place].2.[place] [phone] Oh dical nal 9 [facility] 2020-03-31 2020-03-31 Outpatient STLMLC STLMLC [id number] Common 00:00:00 00:00:00 [facility] 2020-03-23 2020-03-23 [facility] [id number] Univers 15:00:00 15:00:00 QIANGJIMENEZ jyotiy o f [facility] 2020-03-21 2020-03-21 Outpatient STLMLC STLMLC [id number] Common 00:00:00 00:00:00 [facility] 2020-03-21 2020-03-21 Outpatient STLMLC STLMLC [id number] Common 00:00:00 00:00:00 [facility] 2020-02-01 2020-02-01 Outpatient STLMLC STLMLC [id number] Common 00:00:00 00:00:00 [facility] 2020-01-29 2020-01-29 Outpatient STLMLC STLMLC [id number] Common 00:00:00 00:00:00 [facility] 2020-01-27 2020-01-27 Outpatient STLMLC STLMLC [id number] Common 00:00:00 00:00:00 [facility] 2020-01-26 2020-01-26 Outpatient STLMLC STLMLC [id number] Common 00:00:00 00:00:00 [facility] 2020-01-07 2020-01-07 Outpatient STLMLC STLMLC [id number] Common 00:00:00 00:00:00 [facility] 2020-01-06 2020-01-06 Outpatient STLMLC STLMLC [id number] Common 00:00:00 00:00:00 [facility] 2020-01-04 2020-01-04 Outpatient R HAN [facility] [id number] Univers 00:00:00 00:00:00 FABRIZIOJIMENEZ vic o [facility] 2019-12-28 2019-12-28 Outpatient R HAN [facility] [id number] Univers 00:00:00 00:00:00 FABRIZIOJIMENEZ jyotiy o [facility] 2019-12-24 2019-12-24 [facility]hartha [facility] 1.2.415.367 [id number] Univers 00:00:00 00:00:00 Cristina Guevara 350.1.13.10 [place] 4.2.7.2.686 Christos Renteria [phone] [address] 2019-12-22 2019-12-22 Office [facility] 1.2.840.114 [id number] Univers 16:16:32 16:44:34 Visit Fabriziojimenez Ismael 350.1.13.10 ity of [employer] 4.2.7.2.[place] [phone] [address] 2019-12-22 2019-12-22 Outpatient [facility] [id number] Univers 16:40:00 16:40:00 FABRIZIOJIMENEZ jyotiy o f [facility] 2019-12-17 2019-12-17 Outpatient STLMLC STLMLC [id number] Common 00:00:00 00:00:00 [facility] 2019-12-14 2019-12-14 Outpatient STLMLC STLMLC [id number] Common 00:00:00 00:00:00 [facility] 2019-12-10 2019-12-10 Telephone [facility] 1.2.349.383 [id number] Univers 00:00:00 00:00:00 Amritzoltanjimenez Ismael 350.1.13.10 ity of [employer] 4.2.7.2.[place] [phone] [address] 2019-12-08 2019-12-[address] [facility] 1.2.840. 114 [id number] Univers 18:15:00 16:02:00 Ilana Beal 350.1.13.10 ity of [employer] [place].2.[place].2.[place] [phone] [facility] [address] [place] 2019-12-08 2019-12-08 Orders Doctor REDDY 1.2.840.114 [id number] Univers 00:00:00 00:00:00 Only Unassigned, JASON 350.1.13.10 [facility] 4.2.7.2.686 Emmanuel as [phone] [facility] [address] 2019-11-01 2019-11-01 Emergency [facility] 1.2.053.767 [id number] Univers 21:14:00 22:39:00 Jennifer S [place] 350.1.13.10 i ty of [employer] [place].2.7.2.[place] [phone] [facility] [address] [place] [address] 2019-08-10 2019-08-10 Refill [facility] 1.2.840.114 [id number] Univers 00:00:00 00:00:00 Cristina [place] 350.1.13.10 ity of [employer] [place].2.7.2.[place] [phone] [address] 2019-07-15 2019-07-15 Outpatient [facility] [id number] Common 13:15:00 13:15:00 t [employer] [address] [facility] 2019-07-14 2019-07-14 Outpatient R HAN [facility] [id number] Univers 13:20:00 13:20:00 CRISTINA ho o f [facility] 2019-07-14 2019-07-14 Telemedici [facility] 1.2.840.114 [id number] Univers 07:59:51 08:19:51 ne Visit Cristina Guevara 350.1.13.10 ity of [employer] 4.2.7.2.[place] [phone] [address] 2019-06-25 2019-06-25 Telephone [facility] 1.2.303.137 [id number] Univers 00:00:00 00:00:00 Cristina Guevara 350.1.13.10 ity of [employer] 4.2.7.2.[place] [phone] [address] 2019-06-24 2019-06-24 Outpatient R MAMADOU ARANA [facility] [id number] Univers 13:30:00 13:30:00 MAMADOU ARANA ity [facility] 2019-06-24 2019-06-24 Telemedici [facility] 1.2.840.114 [id number] Univers 09:31:59 09:46:59 ne Visit Mamadou Guevara 350.1.13.10 ity of [employer] 4.2.7.2.[place] [phone] Oh dical nal 085 [facility] 2019-06-24 2019-06-24 Telephone [facility] 1.2.058.123 [id number] Univers 00:00:00 00:00:00 Cristina Guevara 350.1.13.10 ity of [employer] 4.2.7.2.[place] [phone] Oh dical nal 059 [facility] 2019-06-19 2019-06-19 Orders Doctor REDDY 1.2.840.114 [id number] Univers 00:00:00 00:00:00 Only Unassigned, JASON 350.1.13.10 ity of [facility] 4.2.7.2.686 Emmanuel as [phone] [address] 2019-06-17 2019-06-17 Outpatient R MAMADOU ARANA [facility] [id number] Univers 10:00:00 10:00:00 MAMADOU ARANA ity of [facility] 2019-06-17 2019-06-[address] [facility] 1.2.840.114 [id number] Univers 07:59:54 08:29:54 ne Visit Mamadou Guevara 350.1.13.10 ity of [employer] 4.2.7.2.[place] [phone] Oh dical nal 085 [facility] 2019-05-11 2019-05-11 Outpatient [place] [id number] Common 15:30:00 15:30:00 t Bone Bone [facility] Spiri t [facility] 2019-05-04 2019-05-04 Outpatient [place] 29 [id number] Common 09:30:00 09:30:00 t Bone Bone [facility] Spiri t [facility] 2019-04-30 2019-04-30 Refill [facility] 1.2.840.114 [id number] Univers 00:00:00 00:00:00 Cristina Guevara 350.1.13.10 ity of [employer] 4.2.7.2.[place] [phone] Oh dical nal 059 [facility] 2019-04-27 2019-04-27 Outpatient [facility] 29 [id number] Common 15:30:00 15:30:00 t Bone Bone and Spiri t and [facility] 2019-04-20 2019-04-20 Telephone [facility] 1.2.782.161 [id number] Univers 00:00:00 00:00:00 Cristina Guevara 350.1.13.10 ity of [employer] 4.2.7.2.[place] [phone] Oh dical nal 059 [facility] 2019-04-16 2019-04-16 Outpatient [facility] 29 [id number] Common 13:00:00 13:00:00 t [employer] [facility] 2019-04-15 2019-04-15 Office [facility] 1.2.840.[id number] [place] [address] 13:55:26 14:36:48 Visit Cristina Guevara 350.1.13.10 ity of [employer] 4.2.7.2.[place] [phone] [facility] nal 9 [facility] 2019-04-15 2019-04-15 Orders Doctor BLAKELY 1.2.840.114 [id number] Univers 00:00:00 00:00:00 Only Unassigned, JASON 350.1.13.10 ity of [facility] 4.2.7.2.686 Emmanuel as [phone] [address] 2019-04-08 2019-04-08 Outpatient [facility] [id number] Common 16:19:00 16:19:00 t Bone Bone and Spiri t and [facility] 2019-04-07 2019-04-07 Outpatient [facility] 29 [id number] Common 08:00:00 08:00:00 t Bone Bone and Spiri t and [facility] 2019-04-06 2019-04-06 Refill [facility] 1.2.840.114 [id number] [facility] 00:00:00 00:00:00 Cristina Castilloton 350.1.13.10 [facility] 4.2.7.2.686 [place] [facility] [phone] Oh dical nal 059 [facility] 2019-04-02 2019-04-02 [facility] [id number] Common 11:30:00 11:30:00 t [employer] [facility] it [facility] 2019-04-02 2019-04-02 [id number] [facility] 00:00:00 00:00:00 Cristina [place] [id number] [facility] [id number] [place] [phone] Oh dicfl nal 9 [facility] 2019-03-31 2019-03-31 [facility] [id number] Common 16:13:00 16:13:00 t [facility] 2019-03-26 2019-03-26 [facility] [id number] Common 13:16:00 13:16:00 t [employer] [facility] it [facility] 2019-03-26 2019-03-26 [facility] [id number] Common 12:59:00 12:59:00 t [facility] 2019-03-05 2019-03-05 [facility] [id number] Common 08:38:00 08:38:00 t [facility] Sp[facility] t [facility] 2019-03-04 2019-03-04 [facility] [id number] Common 09:30:00 09:30:00 t [facility] Sp[facility] t [facility] 2019-03-03 2019-03-03 [facility] [id number] Common 16:25:00 16:25:00 t Bone Bone and Spiri t and Joint [facility] 2019-02-26 2019-02-26 [facility] [id number] Common 09:10:00 09:10:00 t Bone Bone [facility] Spiri t and Joint [facility] [facility] 2019-02-13 2019-02-13 [id number] Common 13:36:00 13:36:[address] [facility] 2019-02-11 2019-02-11 [id number] Common 11:21:00 11:21:00 t [facility] 2019-02-09 2019-02-09 [id number] Common 14:30:00 14:30:00 t [facility] Sp[facility] t [facility] 2019-02-09 2019-02-09 Orders Doctor REDDY [id number] Univers 00:00:00 00:00:00 Only Unassigned, JASON [id number] ity of [place] [facility] [id number] Emmanuel as [phone] [place] [id number] [place] 2019-02-05 2019-02-05 [id number] Common 13:45:00 13:45:00 [place] [address] [facility] 2019-01-28 2019-01-28 [facility] [id number] Common 07:54:00 07:54:00 t [facility] Bone [facility] Spiri t and Joint [facility] 2019-01-26 2019-01-26 [id number] Common 15:10:00 15:10:[address] [facility] 2019-01-21 2019-01-21 [id number] Common 13:00:00 13:00:00 [employer] [address] [facility] 2018-12-24 2018[facility]12-24 [facility] [id number] Univers 00:00:00 00:00:00 Cristina Guevara [id number] ity of [employer] [id number] [phone] [place] [id number] [facility] 2018-10-15 2018-10-15 [facility] [id number] Univers 00:00:00 00:00:00 Cristina Guevara [id number] ity of [employer] [id number] [phone] [place] [id number] [facility] 2018-02-03 2018-02-03 [id number] Common 16:06:00 16:06:00 Charge Payment [address] [facility] 2015-01-29 2015-01-29 Emergency X DANIEL III, [facility] ERT [id number] Univers 15:16:12 17:44:00 CHARLEEN ho [facility] Results This patient has no known results.
--- NOTE | 2022-02-19 17:37 | ER ---
Nurse's Notes [facility] Name: Che Helton Age: 56 yrs Sex: Female : 1965 Arrival Date: 02/19/2022 Time: 16:21 Bed IW8 Private MD: Diagnosis: Presentation: 02/19 16:22 Chief complaint: Patient states: C/O constipation since Saturday. Coronavirus screen: At ld1 this time, the client does not indicate any symptoms associated with coronavirus-19. Ebola Screen: No symptoms or risks identified at this time. Initial Sepsis Screen: Does the patient meet any 2 criteria? No. Patient's initial sepsis screen is negative. Does the patient have a suspected source of infection? No. Patient's initial sepsis screen is negative. Risk Assessment: Do you want to hurt yourself or someone else? Patient reports no desire to harm self or others. Onset of symptoms was February 19, 2022. 16:22 Method Of Arrival: EMS: [facility] ld1 16:22 Acuity: NELY 3 ld1 Triage Assessment: 16:23 General: Appears in no apparent distress. comfortable, Behavior is calm, cooperative, ld1 appropriate for age. Pain: Complains of pain in abdomen Pain does not radiate. Pain currently is 10 out of 10 on a pain scale. Quality of pain is described as throbbing, Pain began suddenly. EENT: No signs and/or symptoms were reported regarding the EENT system. Neuro: Level of Consciousness is awake, alert, obeys commands, Oriented to person, place, time, situation. Cardiovascular: Capillary refill < 3 seconds Patient's skin is warm and dry. Respiratory: Airway is patent Respiratory effort is even, unlabored. GI: Abdomen is flat, non-distended, Reports lower abdominal pain, upper abdominal pain. GI: Reports constipation. : No signs and/or symptoms were reported regarding the genitourinary system. Derm: No signs and/or symptoms reported regarding the dermatologic system. Historical: - Allergies: 16:23 PENICILLINS; ld1 16:23 Sulfa (Sulfonamide Antibiotics); ld1 - PMHx: 16:23 ADD/ADHD; Anxiety; Bipolar disorder; cardiac arrest; Depression; Diabetes - NIDDM; ld1 Hyperlipidemia; Hypertension; Myocardial infarction; stroke; - PSHx: 16:23 section; gastric sleeve; knee sx; ld1 - Immunization history:: Adult Immunizations up to date, Client reports receiving the 2nd dose of the Covid vaccine. - Social history:: Smoking status: Patient denies any tobacco usage or history of. Patient/guardian denies using alcohol. Assessment: 17:32 Reassessment: Pt c/o wait time, Stating "I haven't been seen at all." Notified patient ld1 that she has been seen and requested pt to come to triage to be checked out. Pt refused, continuing to yell in lobby. Eloped at this time. Vital Signs: 16:22 BP 103 / 61; Pulse 110; Resp 18; Temp 98.6(O); Pulse Ox 99% on R/A; Weight 140.61 kg; ld1 Height 5 ft. 4 in. (162.56 cm); Pain 8/10; 16:22 Body Mass Index 53.21 (140.61 kg, 162.56 cm) ld1 ED Course: 16:21 Patient arrived in ED. ld1 16:23 Triage completed. ld1 16:23 Arm band placed on right wrist. ld1 17:02 Wang Olivas MD is Attending Physician. ernie Administered Medications: No medications were administered Outcome: 17:36 Patient left the ED. ld1 Signatures: Wang Olivas MD MD cha Dibbern, Lauren RN RN ld1 Corrections: (The following items were deleted from the chart) 17:32 16:21 Chief complaint: ld1 ld1
[2022-02-19 17:59] VITALS: BP 103/61; TEMP 98.6; O2SAT 99
== END 2022-02-19 17:36 | disposition left against medical advice (07) ==
LOC: ER 16:19
DX: Z02.9 Encounter for administrative examinations, unspecified (principal)
CPT/HCPCS: 99282

== ENCOUNTER 2022-03-13 13:09 | Observation (INO) | payer OTHER ==
--- OUTSIDE RECORDS SUMMARY | 2022-03-13 13:15 | XMS REPORT | Continuity of Care Document ---
:1965 Author Organization [facility] t Address [address] [place] [address] Care Team Providers Name Role Phone ELI VENTURA Primary Care Physician Unavailable Orlando Burnett Attending Clinician Unavailable SATHYA SCHULZ Attending Clinician Unavailable KIM LERMA Attending Clinician Unavailable Ludwig Coronado Attending Clinician Kim Lerma MD Attending Clinician Eulalio Simmons MD Attending Clinician EULALIO SIMMONS Attending Clinician Unavailable Amelia Borrego RN Attending Clinician Unavailable CRISTINA SHORT Attending Clinician Unavailable Joslyn Ocampo RN Attending Clinician LACIE Chin Attending Clinician Unavailable Lacie Dickey Attending Clinician Doctor Unassigned, Gaastra Attending Clinician Unavailable CAROL VICENTE Attending Clinician Unavailable Iris Pruett MD Attending Clinician Carol Vicente MD Attending Clinician Han DOTY, Cristina Attending Clinician SPRING VELAZQUEZ Attending Clinician Unavailable Andreas PEARL DIVER, Kasie Attending Clinician Nura ALVES, Елена García Attending Clinician ЕЛЕНА LYMAN Attending Clinician Unavailable Brynn Hernandez RN Attending Clinician Unavailable Only, Ang Db Test Attending Clinician Unavailable Lab, Ang - Db Attending Clinician Unavailable Cassandra Fragoso Attending Clinician Sathya Schulz MD Attending Clinician Tori Chand RN Attending Clinician Unavailable Faye Callahan MD Attending Clinician Only, Adc Test Attending Clinician Unavailable Noa Marsh RN Attending Clinician Unavailable [facility] Attending Clinician Unavailable Ame DOTY, Estephania K.H. Attending Clinician ESTEPHANIA MCCLOUD K.H. Attending Clinician Unavailable Serg Fulton DO Attending Clinician Ilana Beal MD Attending Clinician [phone] Jennifer Treadwell Attending Clinician MAMADOU ARANA Attending Clinician Unavailable MAMADOU ARANA Attending Clinician Unavailable Mamadou Arana MD Attending Clinician CHARLEEN SANCHEZ III Attending Clinician Unavailable SATHYA SCHULZ Admitting Clinician Unavailable LUDWIG PALMER Admitting Clinician Unavailable IRIS PRUETT Admitting Clinician Unavailable Jazz DOTY, Sathya Fu Admitting Clinician Lian DOTY, Ilana Mcintyre Admitting Clinician Payers Payer Name Policy Type Policy Number Effective Date Expiration Date Sawyer reynaga [facility] [id number] 2018 PLUS 00:00[id number] [place] [id number] 2020 Common HEALTHCARE 00:00:00 [facility] [id number] 2010 2018 HEALTHCARE 00:00:00 00:00:00 MEDICAID Problems [...] Added automatic ally from request for surgery [id number] LEN LEN Disease Active Univers (obstructi (obstructi [...] pain Chest pain Disease Active 2015-02 U yehuda 1-15 ity of 00:00: [place] [id number] Medical Branch CVA CVA Disease Active [facility] (cerebral (cerebral [address] [facility] [address] vascular vascular 00:00: Medica l accident) accident) 00 Cent er Right-side Right-side Disease Active [facility] muscle d muscle 08-31 [facility] weakness [facility] [place] Aphasia Aphasia Disease Active [facility] 00:00: Medical 00 [place] Type 2 Type [address] [facility] diabetes diabetes 08-30 [facility] mellitus mellitus [facility] [address] HTN HTN Disease Active [facility] (hypertens (hypertens 08-30 [place] kes ion) ion) 00:00: Medical 00 [place] Metabolic Metabolic Disease Active [facility] syndrome syndrome 08-30kes 00:00: Medical 00 [place] Morbid Morbid Disease Active [facility] obesity obesity 08-30 [facility] 00:00: Medical 00 [place] History of History of Disease Active [facility] gastric gastric 08-30 [facility] surgery surgery 00:00: Medical 00 Center History of History of Disease Active [facility] ND ND 08-30kes (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 00:00: Ga dical l l 00 Center infarction infarction ) ) H/O H/O Disease Active [facility] 08-30[facility] section section 00:00: Medical 00 Center Smoking Smoking Disease Active [facility] history history 08-30 [facility] 00:00: Medical 00 [place] Acute CVA Acute CVA Disease Active [facility] (cerebrova (cerebrova 08-29 [place] kes scular scular 00:00: Medical accident) accident) 00 Cent er [id number] Controlled Problem Active Co mmon type 2 Spirit diabetes - [facility] mellitus [facility] without [facility] complicati Medica l on, Center without long-term current use of insulin [id number] Bipolar Problem Active Commo n affective Spirit disorder, - [facility] episode [facility] depressed, Medica l current Center episode severity unspecifie d [id number] Depression Problem Active Com mon with Spirit anxiety - [facility] [id number] Chronic Problem Active Commo n pain Spirit syndrome - [facility] [id number] HTN Problem Active Common (hypertens Spirit ion), - CHI benign [facility] [id number] Primary Problem Active Comm on osteoarthr Spirit itis of [facility] left knee [facility] [id number] Seasonal Problem Active Comm on allergies Spirit - [facility] [id number] Hypercalce Problem Active Com mon macrin Spirit - [facility] [id number] Mixed Problem Active Common hyperlipid Spirit emia [facility] [id number] Neuropathy Problem Active Co mmon Spirit - [facility] [id number] GERD Problem Active Common without Spirit esophagiti - [facility] [id number] History of Problem Active Co mmon CVA Spirit (cerebrova - [facility] scular St accident) [facility] without Medical [facility] Center deficits [id number] Constipati Problem Active Com mon on, Spirit unspecifie - [facility] d St constipati [facility] on type Medical Center Allergies, Adverse Reactions, [...] 00:00: [place] ANTIBIOT 00 Medical ICS) Branch Morphine Drug Active Rash [facility] [place] [facility] Sulfa Drug Active Rash [facility] (Sulfona Allergy [facility] Medical Antibiot Center ics) 0 Drug Active Unknown Common allergy [facility] MORPHINE Allergy Active Low Rash [facility] SULFA Allergy Active Low Rash [facility] (SULFONA [facility] Medical ANTIBIOT Center ICS) Social History Social Habit Start Date Stop Date Quantity Comments Source History of Tobacco Current Smoker Co mmon Spirit - Use [facility] Exposure to 2022-02-12 2022-02-22 Not sure University of SARS-CoV-2 (event) 00:00:00 18:30:00 [place] [facility] History SDOH 2019-12-09 2019-12-09 5 University o f Financial 00:00:00 00:00:00 [place] [facility] History SDOH Food 2019-12-09 2019-12-09 1 Univers ity of Worry 00:00:00 00:00:00 [place] [facility] History SDOH Food 2019-12-09 2019-12-09 1 Univers ity of Scarcity 00:00:00 00:00:00 [place] [facility] History SDOH 2019-12-09 2019-12-09 2 University o f Transport Med 00:00:00 00:00:00 [place] Medic al Branch History SDOH 2019-12-09 2019-12-09 2 University o f Transport Non-Med 00:00:00 00:00:00 [facility] Branch Cigarettes smoked 2016-12-18 2016-12-18 Univers ity of current (pack per 00:00:00 00:00:00 [facility]) - Reported Branch Cigarette 2016-12-18 2016-12-18 University of pack-years 00:00:00 00:00:00 [facility] Tobacco use and 2016-12-18 2016-12-18 Smokeless Universit y of exposure 00:00:00 00:00:00 tobacco non-user [facility] [place] [facility] Alcohol intake 2015-09-08 2015-09-08 Current [facility] es 00:00:00 00:00:00 non-drinker of Medical nter alcohol (finding) Sex Ass[birth year] [facility] kes 00:00:00 00:00:00 [facility] Smoking Status Start Date Stop Date Source Smokes tobacco daily 2016-12-18 00:00:00 Univers ity of [facility] Never smoker [facility] Medications Ordered Filled Start Stop Current Ordering Indication Dosage Frequency Signature Comments Components Source Medication Medication Date Date Medication? Clinician (SIG) Name Name aspirin 2021-02- No 324mg 324 mg, Unive rs chewable 2-30 12-30 Oral, ity of tablet 324 03:00: 02:32 ONCE, 1 Emmanuel as mg 00 :00 dose, On Medical Ruthann Branch 02/22/22 at 2100, [place] FENTanyl PF 2021-02- No 50ug 50 mcg, Un ines (SUBLIMAZE 2 12-30 Slow IV ity o f (PF)) 03:00: 02:33 Push, [place] injection 00 :00 ONCE, 1 Medical 50 mcg dose, On Branch Ruthann 02/22/22 at 2100, [place] proMETHazin 2021-02- No 12.5mg 12.5 mg, Univers e 2- 12-30 IV ity of (PHENERGAN) 02:45: 02:34 Piggyback, [place] 12.5 mg in 00 :00 ONCE, 1 Medica l NaCl 0.9% dose, On Branch (NS) 50 mL Ruthann IV 02/22/22 piggyback at 2044, [place] iopamidol 2021-02- No [id number] 77mL 77 mL, U nivers (ISOVUE 2 12- Intravenou ity o f 370-500 mL) 02:45: 02:45 s, ONCE, 1 [place] injection 00 :00 dose, On Medica l 77 mL Ruthann Branch 02/22/22 at 5, Routine lactulose 2021-02 Yes [id number] 30mL Take 30 mL Univers 10 gram/15 2-29 by mouth 3 ity of mL oral 00:00: (three) [place] solution 00 times Medical daily as Branch needed for Constipati on. sucralfate 2021-02 Yes [id number] 1g Take 1 U nivers 1 gram 2-29 tablet by ity of tablet 00:00: mouth [place] 00 before Medical meals and Branch at bedtime. metoprolol 0 Yes 25mg Take 25 mg U nivers tartrate 25 4-08 by mouth 2 it y of mg tablet 00:00: (two) [place] 00 times Medical daily. Branch butalbital- 0 Yes Univer s acetaminoph 4-08 ity of en-caff 00:00: [place] 50-325-40 00 Medical mg tablet Branch ALPRAZolam 0 Yes .25mg Take 0.25 U nivers 0.25 mg 4-08 mg by ity of tablet 00:00: mouth 3 [place] 00 (three) Medical times Branch daily as needed. metoprolol 2021-0 Yes 25mg Take 25 mg U nivers tartrate 25 4-08 by mouth 2 it y of mg tablet 00:00: (two) times Medical daily. Branch butalbital- 0 Yes Univer s acetaminoph 4-08 ity of en-caff 00:00: [place] 50-325-40 00 Medical mg tablet Branch ALPRAZolam 0 Yes .25mg Take 0.25 U nivers 0.25 mg 4-08 mg by ity of tablet 00:00: mouth 3 (three) Medical times Branch daily as needed. metoprolol 0 Yes 25mg Take 25 mg U nivers tartrate 25 4-08 by mouth 2 it y of mg tablet 00:00: (two) times Medical daily. Branch butalbital- 0 Yes Univer s acetaminoph 4-08 ity of en-caff 00:00: [place] 50-325-40 00 Medical mg tablet Branch ALPRAZolam Yes .25mg Take 0.25 U nivers 0.25 mg 4-08 mg by ity of tablet 00:00: mouth 3 (three) Medical times Branch daily as needed. metFORMIN 2021-0 Yes [id number] 1000mg Take 1 Univers 1,000 mg 2-10 tablet by ity of tablet 00:00: mouth 2 (two) Medical times Branch daily with meals. atorvastati 2021-0 Yes [id number] 40mg Take 1 Univers n (LIPITOR) 2-10 tablet by ity of 40 mg 00:00: mouth at [place] tablet 00 bedtime. Medical Branch metFORMIN 2021-0 Yes [id number] 1000mg Take 1 Univers 1,000 mg 2-10 tablet by ity of tablet 00:00: mouth 2 (two) Medical times Branch daily with meals. atorvastati 2021-0 Yes [id number] 40mg Take 1 Univers n (LIPITOR) 2-10 tablet by ity of 40 mg 00:00: mouth at [place] tablet 00 bedtime. Medical Branch metFORMIN 2021-0 Yes [id number] 1000mg Take 1 Univers 1,000 mg 2-10 tablet by ity of tablet 00:00: mouth 2 (two) Medical times Branch daily with meals. atorvastati 2021-0 Yes [id number] 40mg Take 1 Univers n (LIPITOR) 2-10 tablet by ity of 40 mg 00:00: mouth at [place] [facility] 00 bedtime. Medical Branch OXcarbazepi 2021-0 Yes [...] mg 2-07 ity of tablet 00:00: [place] [facility] Diclofenac 2021-0 Yes APPLY Univer [...] DAILY FOR Medical HYPERTENSI Branch ON amLODIPine 2021-0 Yes TAKE 1 Unive rs 10 mg 1-21 TABLET BY ity of tablet 00:00: MOUTH [place] 00 DAILY FOR Medical HYPERTENSI Branch ON amLODIPine 0 Yes TAKE 1 Unive rs 10 mg [...] FOR Branch 14 DAYS triamcinolo 2020-02 Yes [id number] Apply to Univers ne 0-14 area(s) 2 ity of acetonide 00:00: (two) [place] 0.1 % cream 00 times Medical daily. Branch triamcinolo 2020-02 Yes [id number] Apply to Univers ne 0-14 area(s) 2 ity of acetonide 00:00: (two) [place] 0.1 % cream 00 times Medical daily. Branch triamcinolo 2020-02 Yes [id number] Apply to Univers ne 0-14 area(s) 2 ity of acetonide 00:00: (two) [place] 0.1 % cream 00 times Medical daily. Branch triamterene 2020-02 Yes [id number] 1{capsu Take 1 Univers -hydrochlor 0-12 le} capsule by it y of othiazide 00:00: mouth [place] 37.5-25 mg 00 every Medical per capsule morning. Bran ch triamterene 2020-02 Yes [id number] 1{capsu Take 1 Univers -hydrochlor 0-12 le} capsule by it y of othiazide 00:00: mouth [place] 37.5-25 mg 00 every Medical per capsule morning. Bran ch triamterene 2020-02 Yes [id number] 1{capsu Take 1 Univers -hydrochlor 0-12 le} capsule by it y of othiazide 00:00: mouth [place] 37.5-25 mg 00 every Medical per capsule morning. [facility] aspirin 81 Yes 81mg Take 81 mg U nivers mg chewable 9-28 by mouth ity of tablet 16:55: daily. [address] DULoxetine Yes 30mg Take 30 mg U nivers (CYMBALTA) 9-28 by mouth ity o f 30 mg 16:55: daily. [address] amitriptyli Yes 25mg Take 25 mg Univers ne 25 mg 9-28 by mouth ity of tablet 16:55: at bedtime [place] [address] as needed Medical for Branch Insomnia. DULoxetine Yes 60mg Take 60 mg U nivers (CYMBALTA) 9-28 by mouth ity o f 60 mg 16:55: daily. [address] aspirin 81 Yes 81mg Take 81 mg U nivers mg chewable 9-28 by mouth ity of tablet 16:55: daily. [address] DULoxetine Yes 30mg Take 30 mg U nivers (CYMBALTA) 9-28 by mouth ity o f 30 mg 16:55: daily. [address] amitriptyli Yes 25mg Take 25 mg Univers ne 25 mg 9-28 by mouth ity of tablet 16:55: at bedtime [place] [address] as needed Medical for Branch Insomnia. DULoxetine Yes 60mg Take 60 mg U nivers (CYMBALTA) 9-28 by mouth ity o f 60 mg 16:55: daily. [address] aspirin 81 Yes 81mg Take 81 mg U nivers mg chewable 9-28 by mouth ity of tablet 16:55: daily. [address] DULoxetine Yes 30mg Take 30 mg U nivers (CYMBALTA) 9-28 by mouth ity o f 30 mg 16:55: daily. [address] amitriptyli Yes 25mg Take 25 mg Univers ne 25 mg 9-28 by mouth ity of tablet 16:55: at bedtime [place] [address] as needed Medical for Branch Insomnia. DULoxetine Yes 60mg Take 60 mg U nivers (CYMBALTA) 9-28 by mouth ity o f 60 mg 16:55: daily. [place] capsule 38 Medical Branch Ibuprofen Ibuprofen No TID Ibuprofen 600 MG 600 MG 3-29 600 MG 00:00: 00 diltiazem Yes [id number] 360mg Take 1 U nivers 360 mg 24 3-03 capsule by ity of hr capsule 00:00: mouth [place] 00 daily. Medical Branch diltiazem Yes [id number] 360mg Take 1 U nivers 360 mg 24 3-03 capsule by ity of hr capsule 00:00: mouth [place] 00 daily. Medical Branch diltiazem Yes [id number] 360mg Take 1 U nivers 360 mg 24 3-03 capsule by ity of hr capsule 00:00: mouth [place] 00 daily. Medical Branch nitroglycer 2019- Yes [id number] .4mg Place 1 Univers in 0.4 mg 0-27 tablet ity of sublingual 00:00: under the [place] tablet 00 tongue Medical every 5 Branch (five) minutes as needed for Chest pain. pantoprazol 2019-02 Yes [id number] 40mg Take 1 Univers e 40 mg EC 0-27 tablet by ity of tablet 00:00: mouth [place] 00 daily. Medical Branch nitroglycer 2019-[id number] 1 Univers in 0.4 mg 0-27 tablet ity of sublingual 00:00: under the [place] tablet 00 tongue Medical every 5 Branch (five) minutes as needed for Chest pain. pantoprazol 2019-02 Yes [id number] 40mg Take 1 Univers e 40 mg EC 0-27 tablet by ity of tablet 00:00: mouth [place] 00 daily. Medical Branch nitroglycer 2019-[id number] 1 Univers in 0.4 mg 0-27 tablet ity of sublingual 00:00: under the [place] tablet 00 tongue Medical every 5 Branch (five) minutes as needed for Chest pain. pantoprazol 2019- Yes [id number] 40mg Take 1 Univers e 40 mg EC 0-27 tablet by ity of tablet 00:00: mouth [place] 00 daily. Medical Branch Euflexxa Euflexxa No 2mL Commo n 3-16 Spirit 00:00: - [facility] Euflexxa Euflexxa 2020-0 No 2mL Commo n 3-09 Spirit 00:00: - [facility] Euflexxa Euflexxa 2020-0 No 2mL Commo n 3-02 Spirit 00:00: - [facility] Tomas Marin 2019-1 No 40mg Common (Triamcinol (Triamcinol 1-27 S pirit one) one) 00:00: - [facility] Tomas Kenalog 2017-1 No 40mg Common (Triamcinol (Triamcinol 1-05 S pirit one) one) 00:00: - [facility] gabapentin 2015-02 Yes 300mg Take [...] 10 MG 13:23: daily. Medical tablet 19 [place] metFORMIN Yes 500mg Take [address] (GLUCOPHAGE 7-14 mg by [facility] ) 500 MG 13:23: mouth 2 Medica l tablet 19 (two) Center times daily with breakfast and dinner. DULoxetine Yes 30mg QD Take [address] (CYMBALTA) 7-14 by mouth [facility] 30 MG 13:23: every Medical capsule 19 morning. [place] DULoxetine Yes 60mg QD Take [address] (CYMBALTA) 7-14 by mouth [facility] 60 MG 13:23: nightly. Medical capsule 19 Center aspirin 81 Yes 81mg QD Take [address] MG EC 7-14 by mouth [facility]ukes tablet 13:23: daily. Medical [address] [place] [address] amLODIPine 2016-0 Yes 10mg QD Take [address] (NORVASC) 7-14 by mouth [facility] 10 MG 13:23: daily. Medical tablet 19 [place] metFORMIN 2016-0 Yes 500mg Take [address] (GLUCOPHAGE 7-14 mg by [facility] ) 500 MG 13:23: mouth 2 Medica l tablet 19 (two) Center times daily with breakfast and dinner. DULoxetine 2016-0 Yes 30mg QD Take [address] (CYMBALTA) 7-14 by mouth [facility] 30 MG 13:23: every Medical capsule 19 morning. Center DULoxetine 2016-0 Yes 60mg QD Take [address] (CYMBALTA) 7-14 by mouth [facility] 60 MG 13:23: nightly. Medical capsule 19 [place] aspirin 81 2015-0 Yes 81mg QD Take [address] MG EC 7-14 by mouth [facility]ukes tablet 13:23: daily. [address] amLODIPine 2015-0 Yes 10mg QD Take [address] (NORVASC) 7-14 by mouth [facility]ukes 10 MG 13:23: daily. Medical tablet 19 [place] metFORMIN 2015-0 Yes 500mg Take [address] (GLUCOPHAGE 7-14 mg by [facility] ) 500 MG 13:23: mouth 2 Medica l tablet 19 (two) Center times daily with breakfast and dinner. DULoxetine 2016-0 Yes 30mg QD Take [address] (CYMBALTA) 7-14 by mouth [facility] 30 MG 13:23: every Medical capsule 19 morning. [place] DULoxetine 2015-0 Yes 60mg QD Take [address] (CYMBALTA) 7-14 by mouth [facility] 60 MG 13:23: nightly. Medical capsule 19 [place] aspirin 81 2015-0 Yes 81mg QD Take [address] MG EC 7-14 by mouth [facility]ukes tablet 13:23: daily. [address] Metformin Metformin Yes [place] 1 tablet Common HCl HCl Burnett with a Spirit meal - [facility] Diltiazem Diltiazem Yes [place] TK 1 C PO Common HCl ER HCl ER Burnett D Spirit Coated Coated - [facility] Oxcarbazepi Oxcarbazepi Yes [place] 1 tablet Common ne ne Burnett Spirit [facility] Duloxetine Duloxetine Yes [place] 1 capsule Common HCl HCl Burn[place] Spirit - [facility] Sumatriptan Sumatriptan Yes [place] 1 tablet Common Succinate Succinate Burnett at least 2 Spirit hours - [facility]I between St doses as [facility] Medical [place] Nexium Nexium Yes [place] 1 capsule Comm on Burnett [facility] Butalbital- Butalbital- Yes [place] 1 capsule Common ASA-Caffein ASA-Caffein Burnett as needed Spirit e e [facility] Quetiapine Quetiapine Yes [place] 1 tablet Common Fumarate Fumarate Burnett [facility] Plavix Plavix Yes [place] 1 tablet Commo n Burnett [facility] Hydrocodone Hydrocodone Yes [place] as Common -Acetaminop -Acetaminop Burnett directed [facility] hen hen [facility] Diclofenac Diclofenac Yes [place] 1 tablet Common Sodium Sodium Burnett with food Spiri t or milk [facility] Ondansetron Ondansetron Yes [place] 1 tablet Common Burnett on the Spirit tongue and - CHI allow to [facility] Cyclobenzap Cyclobenzap Yes [place] 1 tablet Common rine HCl rine HCl Burnett as needed S pirit [facility] Gabapentin Gabapentin Yes [place] 1 capsule Common Burnett [facility] Dyazide Dyazide Yes [place] 1 capsule Co mmon Burnett in the Spirit morning - [facility] Amitriptyli Amitriptyli Yes [place] 1 tablet Common ne HCl ne HCl Burnett at bedtime Spir [facility] Atorvastati Atorvastati Yes [place] 1 tablet Common n Calcium n Calcium Burnett Spir [facility] Linzess Linzess Yes [place] 1 capsule Co mmon Burnett at least Spirit 30 minutes - CHI before the St first meal [facility] of the day Medical on an [place] empty stomach Amitiza Amitiza Yes [place] 1 capsule Co mmon Burnett with food Spirit and water [facility] Alprazolam Alprazolam Yes [place] 1 tablet Common Burnett [facility] NexIUM 40 NexIUM [...] Immunizations Ordered Filled Immunization Date Status Comments [facility] e Immunization Name Name Influenza Virus 2021-04-06 Completed Universit y of Vaccine Quad IM, 00:00:00 [facility] [place] [facility] dical Preserv and ABX Branch Free 6 MO-64 YRS Influenza Virus 2021-04-06 Completed Universit y of Vaccine Quad IM, 00:00:00 [facility] [place] [facility] dical Preserv and ABX Branch Free 6 MO-64 YRS Influenza Virus 2021-04-06 Completed Universit y of Vaccine Quad IM, 00:00:00 [place] Me dical Preserv and ABX Branch Free 6 MO-64 YRS SARS-COV-2 COVID-19 2021-03-15 Completed Unive rsity of MODERNA VACCINE 00:00:00 [facility] ical Branch SARS-COV-2 COVID-19 2021-03-15 Completed Unive rsity of MODERNA VACCINE 00:00:00 [facility] ical Branch SARS-COV-2 COVID-19 2021-03-15 Completed Unive rsity of MODERNA 12+ YRS 00:00:00 [facility] ical VACCINE Branch SARS-COV-2 COVID-19 2020-09-07 Completed Unive rsity of MODERNA VACCINE 00:00:00 [facility] ical Branch SARS-COV-2 COVID-19 2020-09-07 Completed Unive rsity of MODERNA VACCINE 00:00:00 [facility] ical Branch SARS-COV-2 COVID-19 2020-09-07 Completed Unive rsity of MODERNA 12+ YRS 00:00:00 [facility] ical VACCINE Branch SARS-COV-2 COVID-19 2020-08-08 Completed Unive rsity of MODERNA VACCINE 00:00:00 [facility] ical Branch SARS-COV-2 COVID-19 2020-08-08 Completed Unive rsity of MODERNA VACCINE 00:00:00 [facility] ical Branch SARS-COV-2 COVID-19 2020-08-08 Completed Unive rsity of MODERNA 12+ YRS 00:00:00 [facility] ica VACCINE Branch Flucelvax - Flucelvax - 2019-04-16 Completed Common Spiri t - multidose vial multidose vial 14:09:00 [facility] Flucelvax - Flucelvax - 2019-04-16 Completed Common Spiri t - multidose vial multidose vial 00:00:00 [facility] Vital Signs Vital Name Observation Time Observation Value Comments Source Heart rate 2022-02-23 03:30:00 92 /min [facility] Respiratory rate 2022-02-23 03:30:00 20 /min [facility] Oxygen saturation in 2022-02-23 03:30:00 100 /min [facility] Arterial blood by [facility] Pulse oximetry Branch Systolic blood 2022-02-23 02:00:00 133 mm[Hg] Univer sity of [facility] Diastolic blood 2022-02-23 02:00:00 44 mm[Hg] Unive rsity of [facility] Body temperature 2022-02-23 00:33:00 36.83 [facility] Body height 2022-02-23 00:33:00 160 cm Universi ty of [facility] Body weight 2022-02-23 00:33:00 114.76 kg Universi ty [facility] BMI 2022-02-23 00:33:00 44.82 kg/m2 Universi ty [facility] Systolic blood 2021-07-05 21:08:00 148 mm[Hg] Univer sity of [facility] Diastolic blood 2021-07-05 21:08:00 90 mm[facility]Hg] [facility] Heart rate 2021-07-05 21:08:00 89 /min [facility] Body temperature 2021-07-05 19:44:00 36.56 [facility] Body height 2021-07-05 19:44:00 160 cm [facility] Body weight 2021-07-05 19:44:00 130.137 kg Universi [facility] BMI 2021-07-05 19:44:00 50.82 kg/m2 [facility] Oxygen saturation in 2021-07-05 19:44:00 99 /min [facility] Arterial blood by [facility] Pulse oximetry Branch Procedures Procedure Date / Time Performed Performing Clinician Maribel e COMP. METABOLIC PANEL 2022-02-23 02:20:00 Ludwig Palmer [facility] ([id number]) [facility] EKG-12 LEAD 2022-02-23 02:19:34 Ludwig Palmer [facility] XR CHEST 1 VW 2022-02-23 01:49:05 Ludwig Palmer [facility] CT ABDOMEN PELVIS W 2022-02-23 01:47:59 Ludwig Palmer [facility] URINALYSIS 2022-02-23 01:13:00 Ludwgi Palmer [facility] LIPASE 2022-02-23 01:03:[address] [facility] TROPONIN I 2022-02-23 01:03:[address] [facility] CBC WITH DIFF 2022-02-23 01:03:[address] [facility] N-TERMINAL PRO-BNP 2022-02-23 01:03:00 Ludwig Palmer [facility] NOTICE OF PRIVACY 2022-02-23 00:12:08 Doctor Unassigned, No Univ [facility] PRACTICES Name Medical Branch CONSENT/REFUSAL FOR 2022-02-23 00:08:56 Doctor Unassigned, No [facility] AND Name Medical Branch TREATMENT Encounters Start End Encounter Admission Attending Care Care Encounter Source Date/Time Date/Time Type Type Clinicians Facility Department ID 2021-07-12 Outpatient Burnett, STLMLC STLMLC [id number] Common 16:16:00 [place] [address] [facility] 2021-03-22 Outpatient Burnett, STLMLC STLMLC [id number] Common 12:43:31 [place] [address] [facility] 2021-03-22 Outpatient Burnett, STLMLC STLMLC [id number] Common 12:34:26 [place] [address] [facility] 2021-03-22 Outpatient Burnett, STLMLC STLMLC [id number] Common 12:07:40 [place] [address] [facility] 2021-03-22 Outpatient Burnett, STLMLC STLMLC [id number] Common 11:56:38 [place] [address] [facility] 2021-03-22 Outpatient Burnett, STLMLC STLMLC [id number] Common 11:36:33 [place] [address] [facility] 2021-03-22 Outpatient Burnett, STLMLC STLMLC [id number] Common 11:21:57 [place] [address] [facility] 2021-03-22 Outpatient Burnett, STLMLC STLMLC [id number] Common 11:08:32 [place] [address] [facility] 2021-03-22 Outpatient Burnett, STLMLC STLMLC [id number] Common 11:07:34 [place] [address] [facility] 2021-03-22 [facility] [id number] Common 11:05:30 [place] [address] [facility] 2021-03-22 Outpatient Burnett, [facility] [id number] Common 11:04:39 [place] [address] [facility] 2020-12-25 Emergency [facility] [id number] Univers 23:42:02 ity [facility] 2020-12-25 Outpatient JAZZ [facility] SPL [id number] Univers 17:18:11 [facility] Emergency [facility] [id number] Univers [facility]:47[facility] 2020-12-23 Emergency [facility] [id number] Univers 16:11:18 [facility] 2022-02-22 2022-02-22 Emergency X FLORENTIN [facility] ERT [id number] Univers 18:34:00 21:44:00 KIM [facility] 2022-02-22 2022-02-22 Emergency Ludwig Palmer [facility] 1.2.840. 114 [id number] Univers 18:34:00 21:44:00 Kim Lerma 350.1.13.10 [facility] 4.2.7.2.686 [facility] [phone] [place] [address] Branch 2021-08-30 2021-08-30 Outpatient EL [facility] [id number] [facility] 00:00:00 00:00:00 2021-08-23 2021-08-23 [facility] [id number] 23:59:00 23:59:00 Encounter [place] [facility] 2021-08-23 2021-08-23 [facility] [id number] 23:59:00 23:59:00 Encounter [facility] 2021-08-23 2021-08-23 Outpatient MERLYN SIMMONS [facility] [id number] [facility] 00:00:00 23:59:00 EULALIO 2021-08-21 2021-08-21 Outpatient EL [facility] [id number] [facility] 00:00:00 00:00:00 2021-08-12 2021-08-12 Telephone Elmo [facility] [id number] 00:00:00 00:00:00 [facility] 2021-08-12 2021-08-12 [facility] [id number] 00:00:00 00:00:00 [facility] 2021-08-11 2021-08-11 Outpatient R HAN, [facility] [id number] Univers 13:20:00 13:20:00 [facility] 2021-08-11 2021-08-11 Outpatient R HAN, [facility] [id number] [facility] 13:20:00 13:20:00 [facility] 2021-08-11 2021-08-11 Telephone [facility] [id number] 00:00:00 00:00:00 Joslyn jhaveri nelida Kristi R Medic [facility] 2021-08-11 2021-08-11 Telephone [facility] [id number] [facility] [address] 00:00:00 00:00:00 Joslyn jhaveri nelida Kristi Medic [facility] 2021-07-12 2021-07-12 (TEL) [facility] [id number] Co mmon 00:00:00 00:00:00 [facility] 2021-07-05 2021-07-05 Outpatient R RADHA, [facility] [id number] Univers 15:00:00 15:38:09 LACIE ho [facility] 2021-07-05 2021-07-05 Office Radha, [facility] 1.2.840.114 [id number] Univers 15:00:00 15:38:09 Visit [facility] 350.1.13.10 i ty of [place] 4.2.7.2.686 Emmanuel as TOO?BLEA [phone] [address] MEDICAL OFFICE [facility] 2021-06-29 2021-06-29 Orders Doctor REDDY 1.2.840.114 [id number] Univers 00:00:00 00:00:00 Only Unassigned, JASON 350.1.13.10 ity of [place] [facility] 4.2.7.2.686 Emmanuel as [phone] [facility] [address] [place] 2021-06-07 2021-06-07 Outpatient R HAN [facility] [id number] Univers 15:40:00 15:40:00 CRISTINA ity o [facility] 2021-06-01 2021-06-01 Outpatient [facility] [id number] Univers 14:40:00 14:40:00 CRISTINA jyotiy o [facility] 2021-06-01 2021-06-01 Telephone [facility] [id number] Univers 00:00:00 00:00:00 [facility] 350.1.13.10 i ty of [place] 4.2.7.2.686 Emmanuel as TOO?BLEA [phone] [address] MEDICAL OFFICE [facility] 2021-05-16 2021-05-16 Emergency X JHON AKMARQUITA ERT [id number] Univers 17:47:00 22:54:00 CAROL ity [facility] 2021-05-16 2021-05-16 Emergency Iris Pruett [facility] 1.2.840. 114 [id number] Univers 17:47:00 22:54:00 Carol Vicente S [place] 350.1.13.10 ity of [place] [phone] [facility] [address] [place] 2021-05-15 2021-05-15 Telephone [facility] 1.2.267.601 [id number] Univers 00:00:00 00:00:00 [facility] 350.1.13.10 it[place] of [place] [facility] [phone] [facility] 059 [facility] 2021-05-04 2021-05-04 Outpatient Shanon VELAZQUEZ [facility] [id number] Univers 10:30:00 10:30:00 SPRING [facility] 2021-05-03 2021-05-03 Outpatient Shanon VELAZQUEZ [facility] [id number] Univers 13:00:00 13:00:00 SPRING perry [facility] 2021-04-28 2021-04-28 Outpatient Shanon GARCIA [facility] [id number] Univers 13:00:00 13:00:00 LACIE perry [facility] 2021-04-27 2021-04-27 Outpatient Shanon GARCIA [facility] [id number] Univers 14:30:00 15:19:29 LACIE [facility] 2021-04-26 2021-04-26 Outpatient Shanon GARCIA [facility] [id number] Univers 12:30:00 12:30:00 LACIE [facility] 2021-04-06 2021-04-06 Office [facility] 1.2.840.114 [id number] Univers 14:00:00 15:51:55 Visit [facility] [employer] 350.1.13.10 i ty [facility] 4.2.7.2.686 Emmanuel as TOO?BLEA [phone] [address] MEDICAL OFFICE [facility] 2021-04-06 2021-04-06 Outpatient Shanon [facility] [id number] Univers 14:00:00 15:51:55 LACIE [facility] 2021-04-06 2021-04-06 Outpatient Shanon GARCIA [facility] [id number] Univers 14:00:00 14:00:00 LACIE [facility] 2021-04-05 2021-04-05 Outpatient Shanon [facility] [id number] Univers 14:00:00 14:00:00 LACIE [facility] 2021-01-25 2021-01-25 Outpatient Shanon [facility] [id number] Univers 11:00:00 11:00:00 [facility] 2020-12-08 2020-12-08 Office [facility] 1.2.840.114 [id number] Univers 12:34:35 13:29:22 Visit Lacie Roldan 350.1.13.10 i ty of [place] 4.2.7.2.686 Emmanuel as Too?Blea [phone] [facility] [address] [place] Medical Office [facility] 2020-12-08 2020-12-08 Outpatient R [facility] [id number] Univers 12:30:00 12:30:00 LACIE vic [facility] 2020-12-06 2020-12-06 Office [facility] 1.2.840.114 [id number] Univers 15:42:45 16:02:45 Visit Cristina [place] 350.1.13.10 [place] Profess[place] [phone] [facility] 059 [facility] 2020-12-06 2020-12-06 Outpatient R [facility] [id number] Univers 16:00:00 16:00:[address] [facility] 2020-12-05 2020-12-05 Outpatient R [facility] [id number] Univers 14:20:00 14:20:00 [facility] 2020-11-23 2020-11-23 Outpatient PRIV PRIV [id number] [facility] 00:00:00 00:00:00 [id number] Medica l 2020-11-22 2020-11-22 Urgent Kasie Johns [facility] 1.2.840.114 [id number] Univers 16:50:10 17:10:10 Care Елена Lyman [facility] 350.1.13.10 ity of [place] 4.2.7.2.686 Emmanuel as Too?Blea [phone] [facility] [address] [place] Medical Office [facility] 2020-11-22 2020-11-22 Outpatient R [facility] [id number] Univers 17:00:00 17:00:00 ЕЛЕНА meza [facility] 2020-11-10 2020-11-10 Telephone [facility] 1.2.900.272 [id number] Univers 00:00:00 00:00:00 Lacie [facility] 350.1.13.10 i ty of [place] 4.2.7.2.686 Emmanuel as Too?Blea [phone] [facility] 044 [facility] Office [facility] 2020-11-05 2020-11-05 Telephone REDDY Hernandez 1.2.521.844 [id number] Univers 00:00:00 00:00:00 Brynn TAPIA 350.1.13.10 i ty of [facility] 4.2.7.2.686 Emmanuel as [phone] [address] 2020-11-03 2020-11-03 Laboratory Only, Ang Db Test [facility] 1.2.8 40.114 [id number] Univers 19:12:03 19:27:03 Only Елена Lyman [facility] 350.1.13.10 ity of [place] 4.2.7.2.686 Emmanuel as Too?Blea [phone] [facility] 370 [facility] Office [facility] 2020-11-03 2020-11-03 Outpatient R NURA [facility] [id number] Univers 19:25:00 19:25:00 ЕЛЕНА pitts [facility] 2020-10-27 2020-10-27 Office [facility] 1.2.840.114 [id number] Univers 13:55:52 15:49:42 Visit Lacie [facility] 350.1.13.10 i ty of [place] 4.2.7.2.686 Emmanuel as Too?Blea [phone] [facility] 044 [facility] Office [facility] 2020-10-27 2020-10-27 Press Box Custodian Lab, Ang - Db [facility] 1.2.840.1 14 [id number] Univers 15:25:48 15:40:48 Visit Lacie [facility] 350.1.13.10 ity of [place] 4.2.7.2.686 Emmanuel as Too?Blea [phone] [facility] 353 [facility] Office [facility] 2020-10-27 2020-10-27 Outpatient R [facility] [id number] Univers 13:30:00 13:30:00 LACIE itperry of [facility] 2020-09-12 2020-09-12 Telephone [facility] 1.2.729.925 [id number] Univers 00:00:00 00:00:00 Cristina [place] 350.1.13.10 ity of [place] Profess[place] [phone] [address] 2020-09-12 2020-09-12 [facility] 1.2.742.026 [id number] 00:00:00 00:00:00 Amritngjimenez [place] 350.1.13.10 [place] 4.2.7.2.686 Professio [phone] [address] 2020-08-01 2020-08-01 [facility] 1.2.432.636 [id number] [facility] 16:53:00 20:11:00 Cassandra R [place] 350.1.13.10 i ty of [place].7.2.[place] [phone] [facility] [address] [place] 2020-08-01 2020-08-01 [facility] 1.2.528.538 [id number] 16:53:00 20:11:00 Cassandra R [place] 350.1.13.10 [place] 4.2.7.2.686 [place] [phone] [facility] 2020-08-01 2020-08-01 Telephone GAGAN Schulz 1.2.840.114 [id number] Univers 00:00:00 00:00:00 Grav[place] Jack 350.1.13.10 ity of [place] [phone] [facility] [address] 2020-08-01 2020-08-01 Telephone GAGAN Schulz 1.2.840.114 [id number] 00:00:00 00:00:00 [employer] HEALTH 350.1.13.10 CLINICS 4.2.7.2.686 [id number] 201 2020-07-20 2020-07-20 TelemedicVIKAS VanIT 1.2.840.114 [id number] Univers 12:21:31 12:36:31 ne Visit Sathya ROLDAN 350.1.13.10 ity of [place].2.[place] [phone] [facility] [address] 2020-07-20 2020-07-20 Telemedic VIKAS Schulz 1.2.840.114 [id number] 12:21:31 12:36:31 ne Visit Sathya Robison HEALTH 350.1.13.10 CLINICS 4.2.7.2.686 [id number] 2020-07-20 2020-07-20 Outpatient R JAZZ [facility] [id number] Univers 11:45:00 11:45:00 HANNAK ity [facility] 2020-07-19 2020-07-19 Telephone VIKAS Schulz 1.2.840.114 [id number] Univers 00:00:00 00:00:00 Sathya Robison [employer] 350.1.13.10 ity of [place] [phone] [facility] [address] 2020-07-15 2020-07-15 Hospital [facility] 1.2.044.277 [id number] Univers 07:17:00 13:04:00 Encounter Sathya Nickie Fordy 350.1.13.10 ity of [facility] 4.2.7.2.686 Emmanuel as [phone] [facility] 104 [address] 2020-07-15 2020-07-15 Surgery [place] Molly 1.2.840.114 [id number] Univers 09:44:00 12:25:00 Sathya Nickie Fordy 350.1.13.10 i ty of Hospital 4.2.7.2.686 Emmanuel as [phone] [facility] 103 [address] 2020-07-15 2020-07-15 Anesthesia Tori Chand 1.2.840. 114 [id number] Univers 10:25:00 12:15:00 Event Faye Callahan 350.1.13.10 ity of Hospital 4.2.7.2.686 Emmanuel as [phone] [facility] [address] 2020-07-13 2020-07-13 Laboratory Only, Adc Test [facility] 1.2.840. 114 [id number] Univers 14:32:53 14:47:53 Only Sathya Schulz 350.1.13.10 ity of [place].2.[place] [phone] [facility] 353 [address] 2020-07-13 2020-07-13 Outpatient R [facility] [id number] Univers 13:30:00 13:30:00 ity of [facility] 2020-07-13 2020-07-13 Orders Doctor REDDY 1.2.840.114 [id number] Univers 00:00:00 00:00:00 Only Unassigned, JASON 350.1.13.10 ity of [place] [facility] 4.2.7.2.686 Emmanuel as [phone] [facility] 009 [address] 2020-07-06 2020-07-06 Telephone Maximo Umana 1.2.840.114 [id number] Univers 00:00:00 00:00:00 , Noa Pierre 350.1.13.10 ity of [place]2.7.2.[place] [phone] [facility] 086 [address] 2020-06-23 2020-06-23 Orders Doctor REDDY 1.2.840.114 [id number] Univers 00:00:00 00:00:00 Only Unassigned, JASON 350.1.13.10 ity of [place] [facility] 4.2.7.2.686 Emmanuel as [phone] [facility] [address] 2020-06-22 2020-06-22 Press Box Custodian [facility] 1.2.840.114 [id number] Univers 12:57:30 13:44:59 Visit Sathya Schulz [facility] 350.1.13.10 ity of [place] 4[place]2.[place].2.[place] [phone] [facility] [address] 2020-06-22 2020-06-22 Office GAGAN Schulz 1.2.840.114 [id number] Univers 11:41:57 12:56:42 Visit Sathya Fu [facility] 350.1.13.10 ity of [place] 4[place]2.[place].2.[place] [id number] [facility] [address] 2020-06-22 2020-06-22 Outpatient R JAZZ [facility] [id number] Univers 11:30:00 11:30:00 SATHYA ity of [facility] 2020-06-22 2020-06-22 Orders Doctor REDDY 1.2.840.114 [id number] Univers 00:00:00 00:00:00 Only Unassigned, JASON 350.1.13.10 ity of [place] [facility] 4.2.7.2.686 Emmanuel as [phone] [address] 2020-06-21 2020-06-21 Orders Doctor BLAKELY 1.2.840.114 [id number] Univers 00:00:00 00:00:00 Only Unassigned, JASON 350.1.13.10 ity of [place] [facility] 4.2.7.2.686 Emmanuel as [phone] [address] 2020-06-20 2020-06-[address] [facility] 1.2.444.486 [id number] Univers 00:00:00 00:00:00 Estephania Guevara 350.1.13.10 ity of [place] [phone] Ga shakir [facility] 059 [facility] 2020-06-15 2020-06-15 Telephone [facility] 1.2.840.114 [id number] Univers 00:00:00 00:00:00 Sathya Fu SPECIALTY 350.1.13.10 ity of [place] CENTER AT [phone] Ga shakir BONILLAY 201 [facility] 2020-06-13 2020-06-13 Hospital [facility] 1.2.249.963 [id number] Univers 13:07:04 23:59:00 Encounter Sathya Fu SPECIALTY 350.1.13.10 ity of C[place]2.[place].2.[place] CENTER AT [phone] Ga dicrachel BON[place]AY 802 [facility] 2020-06-13 2020-06-13 Outpatient R JAZZ [facility] [id number] Univers 13:06:54 13:06:54 SATHYA ity of [facility] 2020-06-13 2020-06-13 [facility] 1.2.392.952 [id number] Univers 13:06:54 13:06:54 Encounter Sathya Fu SPECIALTY 350.1.13.10 ity of [place].2.[place] CENTER AT [phone] Ga sarahrachel URIBE 802 [facility] 2020-06-10 2020-06-10 Orders Doctor REDDY 1.2.840.114 [id number] Univers 00:00:00 00:00:00 Only Unassigned, JASON 350.1.13.10 ity of [place] [facility] 4.2.7.2.686 Emmanuel as [phone] [address] 2020-06-07 2020-06-07 Refill [facility] 1.2.840.114 [id number] Univers 00:00:00 00:00:00 Cristina Guevara 350.1.13.10 ity of [place].2.[place] [phone] Ga dical nal 059 [facility] 2020-06-01 2020-06-01 Telephone [facility] 1.2.840.114 [id number] Univers 00:00:00 00:00:00 Sathya Fu SPECIALTY 350.1.13.10 ity of C[place].2.[place] CENTER AT [phone] Ga dicrachel BONILLAY 201 [facility] 2020-05-31 2020-05-31 Office Ame [facility] 1.2.840.114 [id number] Univers 13:58:50 14:29:43 Visit Estephania Guevara 350.1.13.10 ity of [place] 4.2.7.2.[place] [phone] Ga dical nal 059 [facility] 2020-05-31 2020-05-31 Outpatient R AME [facility] [id number] Univers 14:00:00 14:00:00 SENDIL ity [facility] 2020-05-19 2020-05-19 Office Jazz [facility] 1.2.840.114 [id number] Univers 13:08:36 14:28:05 Visit Sathya Fu SPECIALTY 350.1.13.10 ity of C[place]2.[place].2.[place] CENTER AT [phone] Ga shakir [address] 2020-05-19 2020-05-19 Outpatient R JAZZ [facility] [id number] Univers 13:15:00 13:15:00 SATHYA montesy [facility] 2020-05-19 2020-05-19 Outpatient STLMLC STLMLC [id number] Common 00:00:00 00:00:00 [facility] 2020-05-19 2020-05-19 Letter [facility] 1.2.840.114 [id number] Univers 00:00:00 00:00:00 (Out) Sathya Fu SPECIALTY 350.1.13.10 ity of [place].2.[place] CENTER AT [phone] Ga shakir URIBE [address] [place] [address] 2020-05-19 2020-05-19 Orders Doctor REDDY 1.2.840.114 [id number] Univers 00:00:00 00:00:00 Only Unassigned, JASON 350.1.13.10 ity of [facility] 4.2.7.2.686 Emmanuel as [phone] [place] [address] [address] 2020-05-11 2020-05-11 Outpatient STLMLC STLMLC [id number] Common 00:00:00 00:00:00 [facility] 2020-05-11 2020-05-11 Orders Doctor REDDY 1.2.840.114 [id number] Univers 00:00:00 00:00:00 Only Unassigned, JASON 350.1.13.10 ity of [place] [facility] 4.2.7.2.686 Emmanuel as [phone] [address] 2020-05-10 2020-05-10 Outpatient STLMLC STLMLC [id number] Common 00:00:00 00:00:00 [facility] 2020-05-09 2020-05-09 Outpatient STLMLC STLMLC [id number] Common 00:00:00 00:00:00 [facility] 2020-05-02 2020-05-02 Outpatient STLMLC STLMLC [id number] Common 00:00:00 00:00:00 [facility] 2020-04-26 2020-04-26 [facility]a [facility] 1.2.032.461 [id number] Univers 00:00:00 00:00:00 Fabriziojun [place] 350.1.13.10 ity of [place].2.[place] [phone] Ga dical nal [address] [place] [address] 2020-04-26 2020-04-26 Refill [facility] 1.2.840.114 [id number] Univers 00:00:00 00:00:00 Qiangjun [place] 350.1.13.10 ity of [place] 4[place]2.7.2.[place] [phone] Ga dical nal [address] [place] [address] 2020-03-31 2020-03-31 Outpatient STLMLC STLMLC [id number] Common 00:00:00 00:00:00 [facility] 2020-03-23 2020-03-23 Outpatient [facility] [id number] Univers 15:00:00 15:00:00 CRISTINA ity o f [facility] 2020-03-21 2020-03-21 Outpatient STLMLC STLMLC [id number] Common 00:00:00 00:00:00 [facility] 2020-03-21 2020-03-21 Outpatient STLMLC STLMLC [id number] Common 00:00:00 00:00:00 [facility] 2020-02-01 2020-02-01 Outpatient [facility]LML[facility] ST[facility] [id number] Common 00:00:00 00:00:00 [facility] 2020-01-29 2020-01-29 Outpatient [facility] ST[facility] [id number] Common 00:00:00 00:00:00 [facility] 2020-01-27 2020-01-27 Outpatient STLMLC STL[facility]C [id number] Common 00:00:00 00:00:00 [facility] 2020-01-26 2020-01-26 Outpatient STLMLC STL[facility]C [id number] Common 00:00:00 00:00:00 [facility] 2020-01-07 2020-01-07 Outpatient STLMLC STLMLC [id number] Common 00:00:00 00:00:00 [facility] 2020-01-06 2020-01-06 Outpatient STLMLC STLMLC [id number] Common 00:00:00 00:00:00 [facility] 2020-01-04 2020-01-04 Outpatient R HAN, [facility] [id number] Univers 00:00:00 00:00:00 CRISTINA ho o [facility] 2019-12-28 2019-12-28 Outpatient R HAN, [facility] [id number] Univers 00:00:00 00:00:00 CRISTINA ho o f [facility] 2019-12-24 2019-12-24 Telephone [facility] [id number] Univers 00:00:00 00:00:00 Cristina Guevara [id number] [id number] [phone] [place]ical [place] [address] [place] [address] 2019-12-22 2019-12-22 Office [facility] 1.2.840.114 [id number] Univers 16:16:32 16:44:34 Visit Cristina Castilloton [id number] [id number] [phone] Ga dical nal 9 [facility] 2019-12-22 2019-12-22 Outpatient R HAN, [facility] [id number] Univers 16:40:00 16:40:00 FABRIZIOJIMENEZ ity o f [facility] 2019-12-17 2019-12-17 Outpatient STLMLC STLMLC [id number] Common 00:00:00 00:00:00 [facility] 2019-12-14 2019-12-14 Outpatient STLMLC STLMLC [id number] Common 00:00:00 00:00:00 [facility] 2019-12-10 2019-12-10 Siddhartha Short [facility] [id number] Univers 00:00:00 00:00:00 Amritzoltanjimenez [place] [id number] [id number] [phone] [place] dicny [place]al [address] [place] [address] 2019-12-08 2019-12-09 Emergency Serg Fulton [facility] 1.2.840. 114 [id number] Univers 18:15:00 16:02:00 Ilana Beal [id number] [id number] [phone] [place] [address] [place] 2019-12-08 2019-12-08 Orders Doctor REDDY 1.2.840.114 [id number] Univers 00:00:00 00:00:00 Only Unassigned, JASON [id number] ity of [facility] 4.2.7.2.686 Emmanuel as [phone] [facility] [address] [place] 2019-11-01 2019-11-01 Emergency Srinivasa [facility] [id number] Univers 21:14:00 22:39:00 Jenniferdavid Guevara 350.1.13.10 i [place] [phone] [address] 2019-08-10 2019-08-10 Refjj Short [facility] 1.2.840.114 [id number] Univers 00:00:00 00:00:00 Cristina Guevara [id number] [place] [phone] Me dical nal 9 [facility] 2019-07-15 2019-07-15 Out[facility] [id number] Common 13:15:00 13:15:[address] [facility] 2019-07-14 2019-07-14 [facility] [id number] Univers 13:20:00 13:20:00 FABRIZIOJIMENEZ ity o f [facility] 2019-07-14 2019-07-14 Telemedici [facility] 1.2.840.114 [id number] Univers 07:59:51 08:19:51 ne Visit Cristina Guevara [id number] [place] [phone] [address] 2019-06-25 2019-06-25 Telephone [facility] [id number] Univers 00:00:00 00:00:00 Cristina Guevara 350.1.13.10 [place] [phone] [facility] nal [address] [place] [address] 2019-06-24 2019-06-24 Outpatient R MAMADOU ARANA [facility] [id number] Univers 13:30:00 13:30:00 MAMADOU ARANA ity of [facility] 2019-06-24 2019-06-24 [facility]medici [facility] 1.2.840.114 [id number] Univers 09:31:59 09:46:59 ne Visit Mamadou Guevara 350.1.13.10 [id number] [phone] [facility] nal 085 [facility] 2019-06-24 2019-06-24 Telephone [facility] [id number] Univers 00:00:00 00:00:00 Cristina Castilloton [id number] [id number] [phone] [facility] nal 9 [facility] 2019-06-19 2019-06-19 Orders Doctor REDDY 1.2.840.114 [id number] Univers 00:00:00 00:00:00 Only Unassigned, JASON 350.1.13.10 ity of [facility] 4.2.7.2.686 Emmanuel as [phone] [address] 2019-06-17 2019-06-17 Outpatient R MAMADOU ARANA [facility] [id number] Univers 10:00:00 10:00:00 MAMADOU ARANA ity of [facility] 2019-06-17 2019-06-17 Telemedici Yasmeen [facility] 1.2.840.114 [id number] Univers 07:59:54 08:29:54 ne Visit Luciwimarry Guevara 350.1.13.10 [place] [phone] Ga dical nal 085 [facility] 2019-05-11 2019-05-11 Out[facility] [id number] Common 15:30:00 15:30:00 t [facility] 2019-05-04 2019-05-04 Outpatient [facility] [id number] Common 09:30:00 09:30:00 t [facility] 2019-04-30 2019-04-30 Refill Han AKMARQUITA 1.2.840.114 [id number] Univers 00:00:00 00:00:00 Cristina Guevara 350.1.13.10 [place] [phone] Ga dical nal 059 [facility] 2019-04-27 2019-04-27 Outpatient [facility] [id number] Common 15:30:00 15:30:00 t Bone Bone and Spiri t and [facility] 2019-04-20 2019-04-20 Telephone Han AKMARQUITA [id number] Univers 00:00:00 00:00:00 Cristina Guevara 350.1.13.10 [place] [phone] Ga dical nal 059 [facility] 2019-04-16 2019-04-16 Outpatient [facility] [id number] Common 13:00:00 13:00:[address] [facility] 2019-04-15 2019-04-15 Office Han [facility] 1.2.840.114 [id number] Univers 13:55:26 14:36:48 Visit Cristina Guevara 350.1.13.10 [place] [phone] Ga dicny nal 9 [facility] 2019-04-15 2019-04-15 Orders Doctor BLAKELY 1.2.840.114 [id number] Univers 00:00:00 00:00:00 Only Unassigned, JASON 350.1.13.10 ity of [facility] 4.2.7.2.686 Emmanuel as [phone] [place] [address] [place] 2019-04-08 2019-04-08 Outpatient [facility] [id number] Common 16:19:00 16:19:00 t Bone Bone and Spiri t and Joint [facility] - [facility] 2019-04-07 2019-04-07 Outpatient [facility] [id number] Common 08:00:00 08:00:00 t Bone Bone and Spiri t and Joint [facility] - [facility] 2019-04-06 2019-04-06 [facility] 1.2.840.114 [id number] Univers 00:00:00 00:00:00 Cristina Guevara 350.1.13.10 [place] [phone] Ga dical nal 059 [facility] 2019-04-02 2019-04-02 Outpatient [facility] [id number] Common 11:30:00 11:30:[address] [facility] 2019-04-02 2019-04-02 [facility] 1.2.840.114 [id number] Univers 00:00:00 00:00:[address] [facility] [place] 4.2.[place].2.686 Christos Renteria [phone] [place] [address]1159 [facility] 2019-03-31 2019-03-31 Outpatient [facility] [id number] Common 16:13:00 16:13:00 t Bone Bone and Spiri t and Joint [facility] - [facility] 2019-03-26 2019-03-26 Outpatient [facility] [id number] Common 13:16:00 13:16:00 t [place] [facility] it Drive [facility] 2019-03-26 2019-03-26 Outpatient [facility] [id number] Common 12:59:00 12:59:00 t Bone Bone and Spiri t and Joint [facility] - [facility] 2019-03-05 2019-03-05 Outpatient [facility] [id number] Common 08:38:00 08:38:00 t Bone Bone and Spiri t and Joint [facility] 2019-03-04 2019-03-04 Outpatient [facility] [id number] Common 09:30:00 09:30:00 t Bone Bone and Spiri t and Joint [facility] 2019-03-03 2019-03-03 Outpatient [facility] [id number] Common 16:25:00 16:25:00 t Bone Bone and Spiri t and Joint [facility] 2019-02-26 2019-02-26 Outpatient [facility] [id number] Common 09:10:00 09:10:00 t Bone Bone and Spiri t and Joint [facility] - [facility] 2019-02-13 2019-02-13 Outpatient [facility] [id number] Common 13:36:00 13:36:[address] [facility] 2019-02-11 2019-02-11 Outpatient [facility] [id number] Common 11:21:00 11:21:00 t Bone Bone and Spiri t and Joint [facility] - [facility] 2019-02-09 2019-02-09 Outpatient [facility] [id number] Common 14:30:00 14:30:00 t Bone Bone and Spiri t and Joint [facility] - [facility] 2019-02-09 2019-02-09 Orders Doctor REDDY 1.2.840.114 [id number] Univers 00:00:00 00:00:00 Only Unassigned, JASON 350.1.13.10 ity of [facility] 4.2.7.2.686 Emmanuel as [phone] [place] [address] [place] 2019-02-05 2019-02-05 Outpatient Brazamarilys Cormiert [id number] Common 13:45:00 13:45:[address] [facility] 2019-01-28 2019-01-28 Outpatient [facility] [id number] Common 07:54:00 07:54:00 t Bone Bone and Spiri t and Joint [facility] 2019-01-26 2019-01-26 Outpatient [facility] [id number] Common 15:10:00 15:10:[address] [facility] 2019-01-21 2019-01-21 Outpatient [facility] Csa[facility] [id number] Common 13:00:00 13:00:[address] [facility] 2018-12-24 2018-12-24 VIDA Feng 1.2.840.114 [id number] Univers 00:00:00 00:00:00 Cristina Guevara 350.1.13.10 ity [facility] [place] [phone] [address] 2018-10-15 2018-10-15 Telephone [facility] [id number] Univers 00:00:00 00:00:00 Cristina Guevara 350.1.13.10 [facility] 4.2.7.2.686 Christos Pooleio [phone] Ga dical nal 059 [facility] 2018-02-03 2018-02-03 Outpatient [facility] [id number] Common 16:06:00 16:06:00 [place] [address] [facility] 2015-01-29 2015-01-29 Emergency X DANIEL III, [facility] ERT [id number] Univers 15:16:12 17:44:00 CHARLEEN ho [facility] Results Test Description Test Time Test Comments Results Result Comments Source COMP. METABOLIC PANEL (18096) 2022-02-23 02:47:57 Test Item Value Reference Range Interpretation Comme nts NA (test code = 2091446473) 141 mmol/L 135-145 K (test code = 9307149455) 4.1 mmol/L 3.5-5.0 CL (test code = 1696633578) 108 mmol/L 98-108 CO2 TOTAL (test code = 9138700765) 23 mmol/L 23-31 AGAP (test code = 6246825649) 2-16 BUN (test code = 0782689383) 15 mg/dL 7-23 GLUCOSE (test code = 4992275657) 104 mg/dL 70-110 CREATININE (test code = 1.18 mg/dL 0.50-1.04 H 1570110107) TOTAL BILI (test code = 0.4 mg/dL 0.1-1.6 8890828072) CALCIUM (test code = 2777572157) 9.8 mg/dL 8.6-10.6 T PROTEIN (test code = 1591302822) 8.0 g/dL 6.3-8.2 ALBUMIN (test code = 6679630133) 4.5 g/dL 3.5-5.0 ALK PHOS (test code = 3589982774) 117 U/L 34-122 ALTv (test code = 1742-6) 42 U/L 5-35 H AST(SGOT) (test code = 1571261315) 48 U/L 13-40 H eGFR (test code = 7787211789) mL/min/1.73m2 JOSR (test code = JOSR) Association of Glomerular Filtration Rate (GFR) and Staging of Kidney Disease* + +-------- + ------+| GFR (mL/min/1.73 m2) ?| With Kidney Damage ?| ?Without Kidney Damage+ +-- + +| ?>90 ?| ?Stage one ?| ? Normal ?+ +------- + -------+| ?60-89 ?| ?Stage two ?| ? Decreased GFR ? + +-------- + ------+| ?30-59 ?| ?Stage three ?| ? Stage three ? + +-------- + ------+| ?15-29 ?| ?Stage four ? | ? Stage four ?+ +------- + -------+| ?<15 (or dialysis) ? ?| ?Stage five ? | ? Stage five ?+ +------- + -------+ *Each stage assumes the associated GFR [...] or abnormalities in imaging tests). Lab Interpretation (test code = Abnormal 74765-2) [facility] [id number] 01:55:29 Test Item Value Reference Interpretation Comments Range TROPONIN I (test 0.029 ng/mL See_Comment [Automated code = 5914509950) message] The system which generated this result [...] biotin. Lab Interpretation Normal (test code = 86564-4) [facility] [id number] 01:52:12 Test Item Value Reference Range Interpretation Comments NT-proBNP (test code 131 pg/mL See_Comment H [Autom ated = 5408114284) message] The system which generated this result transmitted reference range : <=125. The reference range was not used to interpret this result as normal/abnormal . JORS (test code = JOSR) Biotin has been reported to cause a negative bias, interpret results relative to patient's use of biotin. Lab Interpretation Abnormal (test code = 75613-9) [facility] 01:43:29 Test Item Value Reference Range Interpretation Comments LIPASE (test code = 6000982856) 284 U/L 0-220 H Lab Interpretation (test code = Abnormal 38016-7) [facility] WITH [id number] 01:30:47 Test Item Value Reference Range Interpretation Comments WBC (test code = See_Comment [Automated 3658-2) message] The sy stem which generated this result transmitted reference range : 4.30 - 11.10 10*3/?L. The reference range was not used to interpret this result as normal/abnormal . RBC (test code = See_Comment [Automated 583-8) message] The sy stem which generated this result transmitted reference range : 3.93 - 5.25 10*6/?L. The reference range was not used to interpret this result as normal/abnormal . HGB (test code = 12.5 g/dL 11.6-15.0 718-7) HCT (test code = 38.6 % 35.7-45.2 4544-3) MCV (test code = 87.3 fL 80.6-95.5 787-2) MCH (test code = 28.3 pg 25.9-32.8 785-6) MCHC (test code = 32.4 g/dL 31.6-35.1 786-4) RDW-SD (test code = 43.1 fL 39.0-49.9 82823-3) RDW-CV (test code = 13.3 % 12.0-15.5 788-0) PLT (test code = See_Comment [Automated 777-3) message] The sy stem which generated this result transmitted reference range : 166 - 358 10*3/ ?L. The reference r zain was not used to interpret this result as normal/abnormal . MPV (test code = 11.0 fL 9.5-12.9 13949-1) NRBC/100 WBC (test See_Comment [Automat ed code = 1703209615) message] The system which generated this result transmitted reference range : 0.0 - 10.0 /100 WBCs. The refer ence range was not u sed to interpret th is result as normal/abnormal . NRBC x10^3 (test code See_Comment [Auto mated = 7535255201) message] The s ystem which generated this result transmitted reference range : 10*3/?L. The reference range was not used to interpret this result as normal/abnormal . GRAN MAT (NEUT) % 56.5 % (test code = 770-8) IMM GRAN % (test code 0.10 % = 7437684005) LYMPH % (test code = 37.7 % 736-9) MONO % (test code = 3.6 % 5905-5) EOS % (test code = 1.7 % 713-8) BASO % (test code = 0.4 % 706-2) GRAN MAT x10^3(ANC) 3.94 10*3/uL 1.88-7.09 (test code = 2904805052) IMM GRAN x10^3 (test 0.00-0.06 code = 9355169419) LYMPH x10^3 (test code 2.63 10*3/uL 1.32-3.29 = 731-0) MONO x10^3 (test code 0.25 10*3/uL 0.33-0.92 L = 742-7) EOS x10^3 (test code = 0.12 10*3/uL 0.03-0.39 711-2) BASO x10^3 (test code 0.03 10*3/uL 0.01-0.07 = 704-7) Lab Interpretation Abnormal (test code = 42924-2) [facility]"
[2022-03-13] MEDS ORDERED: METOCLOPRAMIDE 10 MG/2mL INJ ONE (13:48)
[2022-03-13] MEDS ORDERED: DIPHENHYDRAMINE 50 MG/ML VIAL ONE (13:49)
[2022-03-13] MEDS ORDERED: FLEET ENEMA ADULT PR ONE (13:49)
[2022-03-13] MEDS ORDERED: NA CHLORIDE 0.9% 50 ML IV ONE (13:52)
[2022-03-13 14:06] LABS: Absolute Lymphocytes (CBC) 1.9 K/uL (0.7-4.9); Hematocrit 37.9 % (36.0-45.0); Lymphocytes % 33.5 % (15.3-44.8); MCV 86.4 fL (80-100); MPV 8.1 fL (7.6-11.3); RBC Red Blood Cell Count 4.38 M/uL (3.86-4.86)
--- NOTE | 2022-03-13 14:15 | RAD REPORT ---
EXAM DESCRIPTION: RAD - Chest Single View - 03/13/2022 2:04 pm CLINICAL HISTORY: DYSPNEA COMPARISON: Chest Single View dated 02/13/2022; Chest Single View dated 07/07/2021; Chest Single View dated 06/01/2021; Chest Single View dated 05/09/2021; Abdomen Single View dated 03/13/2022 FINDINGS: Lines: None. Lungs: No evidence of edema or pneumonia. Hazy basilar opacities favored to be related to underpenetr ation from body habitus. Pleural: No significant pleural effusions or pneumothorax. Cardiac: The heart size is within normal limits. Mediastinum: Within normal limits. Bones: No acute fractures. Other: None IMPRESSION: No acute cardiopulmonary disease.
--- NOTE | 2022-03-13 14:18 | RAD REPORT ---
EXAM DESCRIPTION: RAD - Abdomen Single View - 03/13/2022 2:05 pm CLINICAL HISTORY: ABD PAIN COMPARISON: Abdomen Pelvis W Contrast dated 02/15/2022 FINDINGS: Nonobstructive bowel gas pattern. No acute osseous abnormality.Visualized lungs are unrema rkable.No abnormal calcifications. Surgical changes from partial gastrectomy. Moderate colonic stool. IMPRESSION: Nonobstructive bowel gas pattern. Moderate colonic stool.
[2022-03-13 15:08] LABS: Albumin 3.6 g/dL (3.4-5.0); Bilirubin Total 0.3 mg/dL (0.2-1.0); Potassium 3.6 mmol/L (3.5-5.1); Protein, Total 8.6 g/dL (6.4-8.2)
[2022-03-13 15:15] LABS: Troponin High Sensitivity 742.2 pg/mL (<58.9)
--- NOTE | 2022-03-13 16:33 | ER ---
Nurse's Notes [facility] Name: Che Helton Age: 56 yrs Sex: Female : 1965 Arrival Date: 03/13/2022 Time: 13:12 Bed 14 Private MD: Diagnosis: Subsequent non-ST elevation (NSTEMI) myocardial infarction;Constipation Presentation: 03/13 13:15 Chief complaint: Patient states: SOB and chest pain that began last night. Pt also aa5 reports back pain. Reports last BM was 1 week ago. Coronavirus screen: shortness of breath. Ebola Screen: Patient denies travel to an Ebola-affected area in the 21 days before illness onset. Initial Sepsis Screen: Does the patient meet any 2 criteria? No. Patient's initial sepsis screen is negative. Does the patient have a suspected source of infection? No. Patient's initial sepsis screen is negative. Risk Assessment: Do you want to hurt yourself or someone else? Patient reports no desire to harm self or others. Onset of symptoms was February 2022. 13:15 Method Of Arrival: Ambulatory aa5 13:15 Acuity: NELY 3 aa5 Historical: - Allergies: 13:16 PENICILLINS; aa5 13:16 Sulfa (Sulfonamide Antibiotics); aa5 - PMHx: 13:16 ADD/ADHD; Anxiety; Bipolar disorder; cardiac arrest; Depression; Diabetes - NIDDM; aa5 Hyperlipidemia; Hypertension; Myocardial infarction; stroke; - PSHx: 13:16 section; gastric sleeve; knee sx; aa5 - Immunization history:: Adult Immunizations unknown. - Social history:: Smoking status: Patient reports the use of cigarette tobacco products, denies chronic smoking, but will smoke occasionally. - Family history:: not pertinent. Screenin:31 [facility] ED Fall Risk Assessment (Adult) History of falling in the last 3 months, kc6 including since admission No falls in past 3 months (0 pts) Confusion or Disorientation No (0 pts) Intoxicated or Sedated No (0 pts) Impaired Gait No (0 pts) Mobility Assist Device Used No (0 pt) Altered Elimination No (0 pt) Score/Fall Risk Level 0 - 2 = Low Risk Oriented to surroundings, Maintained a safe environment, Educated pt \T\ family on fall prevention, incl call for assistance when getting out of bed, Assessed \T\ reinforced patient's understanding of fall precautions, Hourly rounding (assess needs \T\ fall precautionary measures) done. Abuse screen: Denies threats or abuse. Denies injuries from another. Nutritional screening: No deficits noted. Tuberculosis screening: No symptoms or risk factors identified. Assessment: 13:29 General: Appears in no apparent distress. comfortable, Behavior is calm, cooperative, kc6 appropriate for age. Pain: Complains of pain in mid-sternal area Pain does not radiate. Pain currently is 9 out of 10 on a pain scale. Quality of pain is described as heavy, squeezing, Pain began 2-3 days ago. Is continuous, Alleviated by nothing. Aggravated by increased activity, Also complains of no other associated symptoms. Neuro: Milner Agitation-Sedation Scale (RASS): 0 - Alert and Calm Level of Consciousness is awake, alert, obeys commands, Oriented to person, place, time, situation, Appropriate for age. Cardiovascular: Heart tones S1 S2 present Capillary refill < 3 seconds Rhythm is sinus rhythm. Respiratory: Reports shortness of breath Airway is patent Trachea midline Respiratory effort is even, unlabored, Respiratory pattern is regular, symmetrical, Breath sounds are clear bilaterally. : No signs and/or symptoms were reported regarding the genitourinary system. EENT: No signs and/or symptoms were reported regarding the EENT system. Derm: No signs and/or symptoms reported regarding the dermatologic system. Skin is intact, Skin is pink, warm \T\ dry. Musculoskeletal: No signs and/or symptoms reported regarding the musculoskeletal system. Circulation, motion, and sensation intact. Capillary refill < 3 seconds, Range of motion: intact in all extremities. 13:29 GI: Abdomen is flat, non-distended, stated her last bowel movement was a week and a kc6 half ago. Bowel sounds present X 4 quads. Abd is soft and non tender X 4 quads. Reports constipation. 14:30 Reassessment: Patient appears in no apparent distress at this time. No changes from kc6 previously documented assessment. Patient and/or family updated on plan of care and expected duration. Pain level reassessed. Patient is alert, oriented x 3, equal unlabored respirations, skin warm/dry/pink. Reassessment: client assisted to the bathroom. stated she was able to have a bowel movement and feels better. 15:00 Reassessment: client assisted to the bathroom. stated she was able to have a bowel kc6 movement and feels better. 15:30 Reassessment: Patient appears in no apparent distress at this time. No changes from kc6 previously documented assessment. Patient and/or family updated on plan of care and expected duration. Pain level reassessed. Patient is alert, oriented x 3, equal unlabored respirations, skin warm/dry/pink. 16:30 Reassessment: Patient appears in no apparent distress at this time. No changes from kc6 previously documented assessment. Patient and/or family updated on plan of care and expected duration. Pain level reassessed. Patient is alert, oriented x 3, equal unlabored respirations, skin warm/dry/pink. 16:42 Reassessment: client reports chest pain 10/[address] Parham notified. Nitro kc6 and Aspirin administered. 16:50 Reassessment: client reports continued chest pain 10/10. second nitro administered. kc6 17:30 Reassessment: Patient appears in no apparent distress at this time. No changes from kc6 previously documented assessment. Patient and/or family updated on plan of care and expected duration. Pain level reassessed. Patient is alert, oriented x 3, equal unlabored respirations, skin warm/dry/pink. 18:30 Reassessment: Patient appears in no apparent distress at this time. No changes from kc6 previously documented assessment. Patient and/or family updated on plan of care and expected duration. Pain level reassessed. Patient is alert, oriented x 3, equal unlabored respirations, skin warm/dry/pink. Vital Signs: 13:15 BP 147 / 79; Pulse 90; Resp 16 S; Temp 98.2(TE); Pulse Ox 98% on R/A; Weight 111.58 kg aa5 (R); Height 5 ft. 3 in. (160.02 cm) (R); 13:15 BP 120 / 102; Pulse 92; Resp 22 S; Pulse Ox 98% on R/A; kc6 14:15 BP 131 / 75; Pulse 79; Resp 20 S; Pulse Ox 97% on R/A; kc6 15:00 BP 109 / 68; Pulse 91; Resp 21 S; Pulse Ox 98% on R/A; kc6 15:15 BP 123 / 71; Pulse 86; Resp 30 S; Pulse Ox 95% on R/A; kc6 16:15 BP 129 / 61; Pulse 85; Resp 25 S; Pulse Ox 100% on R/A; kc6 16:42 BP 135 / 52; Pulse 94; Resp 17 S; Pulse Ox 100% on R/A; Pain 10/10; kc6 16:50 BP 94 / 47; Pulse 100; Resp 22 S; Pulse Ox 99% on R/A; Pain 10/10; kc6 16:55 BP 116 / 56; Pulse 93; Resp 22 S; Pulse Ox 97% on R/A; Pain 8/10; kc6 17:30 BP 109 / 70; Pulse 79; Resp 19 S; Pulse Ox 100% on R/A; kc6 18:30 BP 141 / 83; Pulse 80; Resp 17 S; Pulse Ox 98% on R/A; kc6 19:39 BP 136 / 62; Pulse 85; Resp 23 S; Pulse Ox 97% on R/A; as6 13:15 Body Mass Index 43.58 (111.58 kg, 160.02 cm) aa5 ED Course: 13:12 Patient arrived in ED. rg4 13:15 Arm band placed on. aa5 13:16 Triage completed. aa5 13:20 Ludwin Parham MD is Attending Physician. rt 13:29 Elham Ndiaye, JULIEN is Primary Nurse. kc6 13:32 Patient has correct armband on for positive identification. Bed in low position. Call kc6 light in reach. Side rails up X2. 13:55 Inserted saline lock: 22 gauge in right forearm, using aseptic technique. Blood bp collected. 14:06 Chest Single View XRAY In Process Unspecified. EDMS 14:06 Abdomen 1 View XRAY In Process Unspecified. EDMS 16:32 Shiraz Salinas MD is Hospitalizing Provider. rt 17:46 SARS-COV-2 Antigen Rapid Sent. kc6 19:40 No provider procedures requiring assistance completed. Patient admitted, IV remains in as6 place. Administered Medications: 14:20 Not Given (pharm stated on back order): Magnesium Citrate Liquid 300 ml PO once kc6 14:20 Drug: Fleet Enema (sodium phosphate) 133 ml Route: VT; kc6 15:20 Follow up: Response: No adverse reaction kc6 14:20 Drug: Reglan (metoCLOPramide) 10 mg {Note: put in 50 mL of NS.} Route: IVP; Site: right kc6 forearm; 15:20 Follow up: Response: No adverse reaction; Nausea is decreased kc6 14:20 Drug: Benadryl (diphenhydrAMINE) 25 mg Route: IVP; Site: right forearm; kc6 15:20 Follow up: Response: No adverse reaction kc6 16:42 Drug: Aspirin 325 mg Route: PO; kc6 17:07 Follow up: Response: No adverse reaction kc6 16:42 Drug: Nitroglycerin 0.4 mg Route: Sublingual; kc6 16:50 Drug: Nitroglycerin 0.4 mg Route: Sublingual; kc6 17:40 Follow up: Response: No adverse reaction; Pain is decreased kc6 Medication: 19:40 VIS not applicable for this client. as6 Outcome: 16:33 Decision to Hospitalize by Provider. rt 19:40 Admitted to Med/surg accompanied by tech, via wheelchair, room 212, with chart. as6 19:40 Condition: stable 19:40 Instructed on the need for admit. 19:53 Patient left the ED. as6 Signatures: Dispatcher [employer] EDMS Samantha Guerra RN RN Lucie Mcrae Brian, RN RN bp Slawson, Ashby, RN RN as6 Elham Ndiaye RN RN kc6 Ludwin Parham MD MD rt Corrections: (The following items were deleted from the chart) 14:21 14:20 Reglan (metoCLOPramide) 10 mg IVP in right forearm kc6 kc6 15:48 13:29 GI: No signs and/or symptoms were reported involving the gastrointestinal system. kc6 kc6
--- NOTE | 2022-03-13 16:33 | EDPHYS ---
Physician Documentation [facility] Name: Che Helton Age: 56 yrs Sex: Female : 1965 Arrival Date: 03/13/2022 Time: 13:12 Bed 14 Private MD: ED Physician Ludwin Parham HPI: 03/13 14:12 This 56 yrs old Black Female presents to ER via Ambulatory with complaints of Shortness rt Of Breath, Chest Pain, Back Pain. 14:12 Patient presents to the ED with multiple complaints. The patient states that she woke rt up having a substernal chest pain as well as a shortness of breath. Patient reports a mild right-sided headache, not as severe as previous migraines. Patient states that she also has not had a bowel movement in about 1 week. Of note, the patient had a recent admission to the hospital for similar symptoms, was noted that she had a normal heart catheterization within the past year, troponins were trended. The constipation was thought to be due to opiate induced constipation. The patient reports taking her medications, ever, she states that they are not working as well as they have been previously. She denies other acute complaints at this time, symptoms are moderate in severity, no other aggravating or alleviating factors.. Historical: - Allergies: 13:16 PENICILLINS; aa5 13:16 Sulfa (Sulfonamide Antibiotics); aa5 - PMHx: 13:16 ADD/ADHD; Anxiety; Bipolar disorder; cardiac arrest; Depression; Diabetes - NIDDM; aa5 Hyperlipidemia; Hypertension; Myocardial infarction; stroke; - PSHx: 13:16 section; gastric sleeve; knee sx; aa5 - Immunization history:: Adult Immunizations unknown. - Social history:: Smoking status: Patient reports the use of cigarette tobacco products, denies chronic smoking, but will smoke occasionally. - Family history:: not pertinent. ROS: 14:12 Constitutional: Negative for fever, chills, and weight loss, Eyes: Negative for injury, rt pain, redness, and discharge, ENT: Negative for injury, pain, and discharge, MS/Extremity: Negative for injury and deformity, Skin: Negative for injury, rash, and discoloration, Neuro: Negative for headache, weakness, numbness, tingling, and seizure, Psych: Negative for depression, anxiety, suicide ideation, homicidal ideation, and hallucinations. 14:12 Cardiovascular: Positive for chest pain, Negative for edema. 14:12 Respiratory: Positive for shortness of breath, Negative for cough. 14:12 Abdomen/GI: Positive for constipation, Negative for diarrhea. 14:12 Neuro: Positive for headache, Negative for altered mental status. Exam: 14:12 Constitutional: This is a well developed, well nourished patient who is awake, alert, rt and in no acute distress. Head/Face: Normocephalic, atraumatic. Eyes: Pupils equal round and reactive to light, extra-ocular motions intact. Lids and lashes normal. Conjunctiva and sclera are non-icteric and not injected. Cornea within normal limits. Periorbital areas with no swelling, redness, or edema. Neck: Trachea midline, no thyromegaly or masses palpated, and no cervical lymphadenopathy. Supple, full range of motion without nuchal rigidity, or vertebral point tenderness. No Meningismus. Chest/axilla: Normal chest wall appearance and motion. Nontender with no deformity. No lesions are appreciated. Cardiovascular: Regular rate and rhythm with a normal S1 and S2. No gallops, murmurs, or rubs. Normal PMI, no JVD. No pulse deficits. Respiratory: Lungs have equal breath sounds bilaterally, clear to auscultation and percussion. No rales, rhonchi or wheezes noted. No increased work of breathing, no retractions or nasal flaring. Abdomen/GI: Soft, non-tender, with normal bowel sounds. No distension or tympany. No guarding or rebound. No evidence of tenderness throughout. Skin: Warm, dry with normal turgor. Normal color with no rashes, no lesions, and no evidence of cellulitis. MS/ Extremity: Pulses equal, no cyanosis. Neurovascular intact. Full, normal range of motion. Neuro: Awake and alert, GCS 15, oriented to person, place, time, and situation. Cranial nerves II-XII grossly intact. Motor strength 5/5 in all extremities. Sensory grossly intact. Cerebellar exam normal. Normal gait. Psych: Awake, alert, with orientation to person, place and time. Behavior, mood, and affect are within normal limits. 14:45 ECG was reviewed by the Attending Physician. rt 17:15 ECG was reviewed by the Attending Physician. rt Vital Signs: 13:15 BP 147 / 79; Pulse 90; Resp 16 S; Temp 98.2(TE); Pulse Ox 98% on R/A; Weight 111.58 kg aa5 (R); Height 5 ft. 3 in. (160.02 cm) (R); 13:15 BP 120 / 102; Pulse 92; Resp 22 S; Pulse Ox 98% on R/A; kc6 14:15 BP 131 / 75; Pulse 79; Resp 20 S; Pulse Ox 97% on R/A; kc6 15:00 BP 109 / 68; Pulse 91; Resp 21 S; Pulse Ox 98% on R/A; kc6 15:15 BP 123 / 71; Pulse 86; Resp 30 S; Pulse Ox 95% on R/A; kc6 16:15 BP 129 / 61; Pulse 85; Resp 25 S; Pulse Ox 100% on R/A; kc6 16:42 BP 135 / 52; Pulse 94; Resp 17 S; Pulse Ox 100% on R/A; Pain 10/10; kc6 16:50 BP 94 / 47; Pulse 100; Resp 22 S; Pulse Ox 99% on R/A; Pain 10/10; kc6 16:55 BP 116 / 56; Pulse 93; Resp 22 S; Pulse Ox 97% on R/A; Pain 8/10; kc6 17:30 BP 109 / 70; Pulse 79; Resp 19 S; Pulse Ox 100% on R/A; kc6 18:30 BP 141 / 83; Pulse 80; Resp 17 S; Pulse Ox 98% on R/A; kc6 19:39 BP 136 / 62; Pulse 85; Resp 23 S; Pulse Ox 97% on R/A; as6 13:15 Body Mass Index 43.58 (111.58 kg, 160.02 cm) aa5 MDM: 13:39 Patient medically screened. rt 16:33 Differential diagnosis: Angina, IN, pneumonia, pneumothorax, constipation, bowel rt obstruction. Data reviewed: vital signs, nurses notes, lab test result(s), EKG, radiologic studies. Consideration of Admission/Observation Patient was admitted/placed on observation. Management of patient was discussed with the following: Hospitalist: Agrees to admit. Teradata Developer: Spoke to cardiology, recommends troponin trending, will consult in the morning. I considered the following discharge prescriptions or medication management in the emergency department Medications were administered in the Emergency Department. See MAR. Independent interpretation of the following test(s) in the Emergency Department X-Ray: My interpretation is Moderate mount of stool to above transverse colon. Response to treatment: the patient's symptoms have markedly improved after treatment. 03/13 13:38 Order name: CBC with Diff; Complete Time: 14:23 rt 03/13 13:38 Order name: CMP; Complete Time: 15:18 rt 03/13 13:38 Order name: Troponin High Sensitivity; Complete Time: 15:18 rt 03/13 13:38 Order name: Magnesium; Complete Time: 15:18 rt 03/13 13:38 Order name: BNP; Complete Time: 15:18 rt 03/13 13:38 Order name: Lipase; Complete Time: 15:18 rt 03/13 13:38 Order name: Chest Single View XRAY; Complete Time: 14:23 rt 03/13 17:27 Order name: SARS-COV-2 Antigen Rapid 03/13 18:05 Order name: SARS-COV-2 Antigen Rapid [facility] 03/13 19:02 Order name: Phosphorus [facility] 03/13 19:02 Order name: Creatine Phosphokinase [facility] 03/13 19:02 Order name: T4 Free [facility] 03/13 19:02 Order name: Magnesium [facility] 03/13 19:02 Order name: Thyroid Stimulating Hormone [facility] 03/13 13:38 Order name: Abdomen 1 View XRAY; Complete Time: 14:23 rt EC:45 Rate is 90 beats/min. Rhythm is regular, Normal Sinus Rhythm with No ectopy. QRS [place] rt is Normal. RI interval is normal. QRS interval is normal. QT interval is prolonged at 518 msec. No Q waves. Clinical impression: NSR w/ Non-specific ST/T Changes and Abnormal EKG without significant change. Interpreted by me. 17:15 Rate is 81 beats/min. Rhythm is regular, Normal Sinus Rhythm with No ectopy. QRS [place] rt is Normal. RI interval is normal. QRS interval is normal. QT interval is prolonged at 520 msec. Clinical impression: NSR w/ Non-specific ST/T Changes. Interpreted by me. Administered Medications: 14:20 Not Given (pharm stated on back order): Magnesium Citrate Liquid 300 ml PO once kc6 14:20 Drug: Fleet Enema (sodium phosphate) 133 ml Route: RI; kc6 15:20 Follow up: Response: No adverse reaction kc6 14:20 Drug: Reglan (metoCLOPramide) 10 mg {Note: put in 50 mL of NS.} Route: IVP; Site: right kc6 forearm; 15:20 Follow up: Response: No adverse reaction; Nausea is decreased kc6 14:20 Drug: Benadryl (diphenhydrAMINE) 25 mg Route: IVP; Site: right forearm; kc6 15:20 Follow up: Response: No adverse reaction kc6 16:42 Drug: Aspirin 325 mg Route: PO; kc6 17:07 Follow up: Response: No adverse reaction kc6 16:42 Drug: Nitroglycerin 0.4 mg Route: Sublingual; kc6 16:50 Drug: Nitroglycerin 0.4 mg Route: Sublingual; kc6 17:40 Follow up: Response: No adverse reaction; Pain is decreased kc6 Disposition Summary: 03/13/22 16:33 Hospitalization Ordered Hospitalization Status: Observation rt Provider: Shiraz Salinas rt [facility] rt Condition: Stable rt Problem: an acute exacerbation rt Symptoms: have improved rt Bed/Room Type: Standard rt Room Assignment: 212(03/13/22 18:41) bd Diagnosis - Subsequent non-ST elevation (NSTEMI) myocardial infarction rt - Constipation rt Forms: - Medication Reconciliation Form rt - SBAR form rt Signatures: Dispatcher [employer] Haily Hogan Audri RN RN [email or web address] Elham Ndiaye RN RN kc6 Ludwin Parham MD MD rt Corrections: (The following items were deleted from the chart) 18:41 16:33 rt bd
[2022-03-13] MEDS ORDERED: ASPIRIN 325 MG TAB ONE (16:43)
[2022-03-13] MEDS ORDERED: NITROGLYCERIN 0.4 MG/TAB SL ONE (16:44)
[2022-03-13] MEDS ORDERED: ACETAMINOPHEN 325 MG TABLET PO PRN (17:26)
[2022-03-13] MEDS ORDERED: ONDANSETRON 4 MG/2 ML VIAL IV PRN (17:29)
[2022-03-13] MEDS ORDERED: GABAPENTIN 300 MG CAP PO PRN (17:35)
[2022-03-13] MEDS ORDERED: HEPARIN/D5W 25,000 UNIT/500 ML BAG IV PRN (18:00)
[2022-03-13 18:05] LABS: SARS-CoV-2 Antigen Rapid Res Negative (Negative)
[2022-03-13 19:02] LABS: Magnesium 2.2 mg/dL (1.6-2.4); Phosphorus 2.6 mg/dL (2.5-4.9); Thyroid Stimulating Hormone 2.29 uIU/mL (0.358-3.740)
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
[2022-03-13] MEDS ORDERED: HYDRALAZINE HCL 20 MG/ML VIAL IV PRN (20:03)
[2022-03-13 20:36] VITALS: BMI 43.9
[2022-03-13] MEDS ORDERED: QUETIAPINE 100MG TAB PO SCH (21:00)
[2022-03-13] MEDS: INSULIN -REGULAR HUMAN 50 UNIT/0.5 ML ML SQ SCH (21:00)
[2022-03-13] MEDS ORDERED: DULOXETINE 30 MG CAP PO SCH (21:00)
[2022-03-13] MEDS ORDERED: ATORVASTATIN 40 MG TAB PO SCH (21:00)
[2022-03-13] MEDS: METOPROLOL TAR 25 MG TAB PO SCH (21:00)
[2022-03-13] MEDS ORDERED: HOME MED 1 EA UNK (Duloxetine Hcl [Cymbalta] 60 MG Capsule.Dr) PO SCH (21:00)
[2022-03-13 21:02] LABS: Protime INR 1.06
[2022-03-13] MEDS: DOCUSATE NA 100 MG CAP PO SCH (21:57)
[2022-03-13] MEDS: HYDROCODONE/APAP 10/325 TAB PO PRN (21:57)
[2022-03-13 22:31] VITALS: O2SAT 99
[2022-03-14 04:41] LABS: Absolute Lymphocytes (CBC) 2.7 K/uL (0.7-4.9); MCV 87.7 fL (80-100); MPV 8.6 fL (7.6-11.3); Potassium 3.6 mmol/L (3.5-5.1); RBC Red Blood Cell Count 3.65 M/uL (3.86-4.86)
[2022-03-14] MEDS: METOPROLOL TAR 25 MG TAB PO SCH ×2 (06:00→17:45)
[2022-03-14] MEDS ORDERED: PANTOPRAZOLE 40MG TABLET PO SCH (06:30)
[2022-03-14] MEDS: INSULIN -REGULAR HUMAN 50 UNIT/0.5 ML ML SQ SCH ×3 (07:30→16:30)
--- NOTE | 2022-03-14 07:32 | EKG ---
Test Date: 2022-03-13 Test Time: 13:22:02 Veterinary Poultry Inspector: OSMANY MEASUREMENT RESULTS: Intervals: Rate: 90 AR: 170 QRSD: 108 QT: 424 QTc: 518 Tom Bean: P: 80 AR: 170 QRS: -17 T: 118 INTERPRETIVE STATEMENTS: Normal sinus rhythm Right atrial enlargement Voltage criteria for left ventricular hypertrophy Cannot rule out Septal infarct, age undetermined T wave abnormality, consider lateral ischemia Prolonged QT Abnormal ECG Compared to ECG 02/13/2022 13:44:14 Atrial abnormality now present Myocardial infarct finding now present Prolonged QT interval now present T-wave abnormality still present Possible ischemia still present Electronically Signed On 03-14-22 07:31:26 NAPPER GRINDER by Giovanni Brewster
[2022-03-14] MEDS ORDERED: ASPIRIN 81 MG CHEWABLE TABLET PO SCH (09:00)
[2022-03-14] MEDS ORDERED: NICOTINE 21 MG/PAT TD SCH (09:00)
[2022-03-14] MEDS ORDERED: LUBIPROSTONE 24 MCG CAP PO SCH (09:00)
[2022-03-14] MEDS ORDERED: LUBIPROSTONE 24 MCG PO SCH (09:00)
[2022-03-14] MEDS: DOCUSATE NA 100 MG CAP PO SCH (09:00)
[2022-03-14] MEDS ORDERED: DULOXETINE 30 MG CAP PO SCH (09:00)
[2022-03-14] MEDS: HYDROCODONE/APAP 10/325 TAB PO PRN ×2 (13:45→19:27)
[2022-03-14 16:18] VITALS: BP 156/84; TEMP 98.2
--- NOTE | 2022-03-14 17:00 | P.DS ---
Admission Date: 03/13/22 Discharge Date: 03/14/22 Disposition: ROUTINE DISCHARGE Discharge Condition: GOOD Reason for Admission: Chest pain and constipation Consultations: 1. Cardiology Hospital Course: DIAGNOSES: # Atypical Chest Pain # Suspect Type II Non-ST Segment Elevation Myocardial Infarction (Demand Ischemia) # Type II Diabetes Mellitus complicated by Diabetic Neuropathy # Hypertension # Dyslipidemia # Reported history of Myocardial Infarction, Cerebrovascular Accident, Pulmonary Embolism # Tobacco Use Disorder # Gastroesophageal Reflux Disease # Morbid Obesity - BMI 43.9 kg/m2 # Bipolar Disorder # Depressive Disorder # Anxiety HOSPITAL COURSE: Ms. Che Helton is a pleasant 56 year old female with a past medical history significant for type 2 diabetes mellitus, hypertension, dyslipidemia, tobacco use disorder, morbid obesity, bipolar disorder, and depression/anxiety who was admitted to the [facility] on 03/13/2022 for chest pain. She was admitted to the Medicine service. Upon further evaluation, her EKG was without STEMI criteria. Her troponin trend was 742.2, 659.4, and 537.9, respectively. Her chest x-ray revealed, "no acute cardiopulmonary disease." Her CT chest angiogram revealed, "negative for a pulmonary embolism. Mild ground- glass opacities within the lungs bilaterally can be seen mild pulmonary edema and pneumonitis." A transthoracic echocardiogram was obtained, and per Dr. Nicole, it revealed a normal LVEF (60-65%) with normal wall motion, severe concentric left ventricular hypertrophy, left atrial enlargement, moderate diastolic dysfunction, and mild mitral regurgitation. Cardiology was consulted and she was evaluated by Dr. Nicole. He states that, since she had a left heart catheterization on 05/12/2021 with normal coronary arteries, he does not believe that any further cardiac evaluation is warranted. He has cleared her for discharge home with aspirin, atorvastatin, and metoprolol - which she states that she is already prescribed. She was also advised to continue her home hydrochlorothiazide-triamterene given her mild pulmonary edema. On 03/14/2022, she was seen on rounds and deemed medically stable for discharge. She was discharged with instructions to schedule follow-up appointments with her PCP (Dr. Bates) and with Cardiology (Dr. Nicole). She was given the opportunity to ask questions and reported no further questions. Furthermore, all questions were answered to the best of my ability. A copy of this discharge summary will be sent to the above providers to facilitate continuity of care. Today, I personally spent 25 minutes on her case, of which greater than 50% of the time was spent in patient education, counseling, and coordination of care as described above. Vital Signs/Physical Exam: Temp Pulse Resp BP Pulse Ox 98.2 F 79 16 156/84 H 96 03/14/22 16:00 03/14/22 16:00 03/14/22 16:00 03/14/22 16:00 03/14/22 16:00 General: Alert, In no apparent distress, Oriented x3 HEENT: Atraumatic, Mucous membr. moist/pink, EOMI, Sclerae nonicteric Neck: JVD not distended Respiratory: Clear to auscultation bilaterally, Normal air movement Cardiovascular: No edema, Regular rate/rhythm, Normal S1 S2, No gallops, No rubs, No murmurs Gastrointestinal: Normal bowel sounds, Soft and benign, Non-distended, No tenderness, No rebound, No guarding Musculoskeletal: No clubbing Integumentary: No rashes Neurological: Normal speech, Normal affect Laboratory Data at Discharge: WBC 6.30 K/uL (4.3-10.9) 03/14/22 01:43 Hgb 10.6 g/dL (12.0-15.0) L D 03/14/22 01:43 Hct 32.0 % (36.0-45.0) L 03/14/22 01:43 Plt Count 229 K/uL (152-406) 03/14/22 01:43 PT 11.7 SECONDS (9.5-12.5) 03/13/22 20:39 INR 1.06 03/13/22 20:39 APTT 50.2 SECONDS (24.3-36.9) H 03/14/22 14:41 Sodium 141 mmol/L (136-145) 03/14/22 01:43 Potassium 3.6 mmol/L (3.5-5.1) 03/14/22 01:43 BUN 16 mg/dL (7-18) 03/14/22 01:43 Creatinine 1.21 mg/dL (0.55-1.02) H 03/14/22 01:43 Glucose 190 mg/dL (74-106) H 03/14/22 01:43 Phosphorus 2.6 mg/dL (2.5-4.9) 03/13/22 18:18 Magnesium 2.2 mg/dL (1.6-2.4) 03/13/22 18:18 Total Bilirubin 0.3 mg/dL (0.2-1.0) 03/13/22 13:55 AST 41 U/L (15-37) H 03/13/22 13:55 ALT 51 U/L (13-56) 03/13/22 13:55 Alkaline Phosphatase 121 U/L (45-117) H 03/13/22 13:55 Triglycerides 353 mg/dL (<150) H 03/14/22 01:43 Cholesterol 210 mg/dL (<200) H 03/14/22 01:43 HDL Cholesterol 28 mg/dL (40-60) L 03/14/22 01:43 Cholesterol/HDL Ratio 7.50 03/14/22 01:43 Lipase 220 U/L (73-393) 03/13/22 13:55 Home Medications: RX: Duloxetine HCl [Cymbalta] 30 mg PO DAILY 04/14/18 RX: Metformin ER [Glucophage ER*] 1,000 mg PO BID 04/14/18 RX: Quetiapine Fumarate [Seroquel] 300 mg PO BEDTIME 04/14/18 RX: Duloxetine HCl [Cymbalta] 60 mg PO BEDTIME 06/01/21 RX: Gabapentin 300 mg PO TIDP PRN 07/08/21 RX: Triamterene/Hydrochlorothiazid [Triamterene-Hctz 37.5-25 mg Tb] 1 each PO DAILY 07/08/21 RX: Lubiprostone 1 cap PO DAILY 02/15/22 RX: Aspirin Chewable [Aspirin Chewable*] 81 mg PO DAILY tab.chew 03/14/22 RX: Atorvastatin Calcium [Lipitor] 40 mg PO BEDTIME tab 03/14/22 RX: Metoprolol Tartrate [Lopressor*] 12.5 mg PO BID 6AM 6PM tab 03/14/22 Physician Discharge Instructions: 1. Please call and schedule a follow-up appointment with your PCP (Dr. Bates) in 3-5 days 2. Please call and schedule a follow-up appointment with Cardiology (Dr. Nicole) in 5-7 days Diet: AHA Activity: Ad huber Followup: Orlando Bates MD [Primary Care Provider] - (follow up 3-5 days) Uli Nicole MD [ACTIVE - CAN ADMIT] - (Follow up 5-7 days) Time spent managing pt's care (in minutes): 25
--- NOTE | 2022-03-14 19:28 | RAD REPORT ---
EXAM DESCRIPTION: CT - Chest For Pe Angio - 03/14/2022 7:17 pm CLINICAL HISTORY: Chest pain COMPARISON: January 2022 TECHNIQUE: Dynamically enhanced axial 3 mm thick images of the chest were obtained during administra tion of <100> mL Isovue 370 IV contrast. Coronal and oblique reconstruction images were generated and reviewed. Exam utilizes a protocol for optimal evaluation of pulmonary arterial tree. Maximum intensity projections 3D imaging was utilized All CT scans are performed using dose optimization technique as appropriate and may include automated exposure control or mA/KV adjustment according to patient size. FINDINGS: A pulmonary embolus is not seen. A thoracic aortic aneurysm is not noted. A pleural effusion is not seen. A pericardial effusion is not seen. Mild bilateral ground-glass opacities within the lungs IMPRESSION: Negative for a pulmonary embolism. Mild ground-glass opacities within the lungs bilaterally can be seen mild pulmonary edema and pneumon itis
--- NOTE | 2022-03-14 19:45 | CON ---
Date of Consultation: 03/14/2022 Reason For Consultation: Chest pain. History Of Present Illness: A 56-year-old female, history of anxiety disorder, diabetes, diastolic h eart failure, dyslipidemia, hypertension, CVA, who presented with headache that was severe and then s tarted feeling pain in her chest. Has shortness of breath on activity. Denies having resting chest pain. Generally, she is weak. No other complaints. Past Medical History: As outlined above in the HPI. Medications: Refer reconciliation sheet for detailed list. Allergies: PENICILLIN AND SULFA. Family History: No premature coronary artery disease or cancer. Social History: She is an active smoker, 1 pack per day. Does not drink, use any drugs. Review of Systems: All systems reviewed and they are negative except for mentioned in HPI. Physical Examination: Vital Signs: Temperature is 98.3, pulse 74, breathing at 18, blood pressure is 110/57, saturating 96 % on room air. General: Pleasant middle-aged female, morbidly obese, no apparent distress. Head and Neck: Pupils are equal, reactive to light. Intact eye movements. No JVD. No cervical lym phadenopathy. Neck is supple. Thyroid is not enlarged. Lungs: Clear to auscultation bilaterally. No rhonchi, rales, or crackles. No accessory muscle use. Heart: Regular rate and rhythm. No extra sounds. Abdomen: Soft, nontender. Bowel sounds positive. No organomegaly. No masses or hernia. No rigidi ty or rebound. Extremities: No edema, clubbing, or cyanosis. Intact pulses. Skin: No rash or nodules. Neurologic: Alert, awake, oriented x3. No gross deficits appreciated. Investigations: Troponin is 537, BUN 16, creatinine 1.2, and hemoglobin is 10.6. Assessment And Recommendation: 1.Chest pain with borderline elevated troponin. The patient has a borderline elevated troponin all the time she is in the hospital, status post coronary angiogram that was completely normal and this w as done by myself back on May 12, 2022, so this troponin leak is not related to coronary artery dis ease, but on echo, she has significant LVH that is severe. Definitely she could have demand ischemia due to that. No further cardiac workup is recommended at this point, but we recommend to titrate be ta yvette to establish a slower heart rate that could provide relief of symptoms down the road. 2.Dyslipidemia. Continue statin. 3.Hypertension. Blood pressure is controlled. SR/MODL Voice ID: [id number] Report ID: [id number]
--- NOTE | 2022-03-15 07:05 | ECHO ---
HEIGHT: 5 ft 3 in WEIGHT: 248 lb 0 oz DATE OF STUDY: 03/14/[address]: Kayla Rich 2-DIMENSIONAL: YES M.MODE: YES DOPPLER: YES COLOR FLOW: YES TDS: NO PORTABLE: YES DEFINITY: NO BUBBLE STUDY: NO DIAGNOSIS: CHEST PAIN CARDIAC HISTORY: CATHERIZATION: SURGERY: PROSTHETIC VALVE: PACEMAKER: MEASUREMENTS (cm) DIASTOLIC (NORMALS) SYSTOLIC (NORMALS) IVSd 1.7 (0.6-1.2) LA Diam 4.0 (1.9-4.0) LVEF 69% LVIDd 3.1 (3.5-5.7) LVIDs 2.0 (2.0-3.5) %FS 37% LVPWd 1.7 (0.6-1.2) Ao Diam 2.5 (2.0-3.7) 2 DIMENSIONAL ASSESSMENT: RIGHT ATRIUM: NORMAL LEFT ATRIUM: ENLARGED RIGHT VENTRICLE: NORMAL LEFT VENTRICLE: LEFT VENTRICULAR HYPERTROPHY CONCENTRIC TRICUSPID VALVE: NORMAL MITRAL VALVE: MILD MITRAL REGURGITATION PULMONIC VALVE: NORMAL AORTIC VALVE: NORMAL PERICARDIAL EFFUSION: NONE AORTIC ROOT: NORMAL LEFT VENTRICULAR WALL MOTION: NORMAL. DOPPLER/COLOR FLOW: MILD MITRAL REGURGITATION. COMMENTS: 1. NORMAL LEFT VENTRICULAR EJECTION FRACTION 60-65% WITH NORMALL WALL MOTION. 2. SEVERE CONCENTRIC LEFT VENTRICULAR HYPERTROPHY. 3. LEFT ATRIAL ENLARGEMENT. 4. MODERATE DIASTOLIC DYSFUNCTION. 5. MILD MITRAL REGURGITATION. TECHNOLOGIST: JAMIE TRIVEDI
== END 2022-03-14 19:50 | disposition home or self-care (01) ==
LOC: ER 13:09 → ERHOLD 17:22 → 2ND 19:15
PROVIDERS: ADMIT Internal Medicine; ATTEND Internal Medicine
DX: R07.9 Chest pain, unspecified (principal); K59.00 Constipation, unspecified; F41.9 Anxiety disorder, unspecified; F31.9 Bipolar disorder, unspecified; F32.A Depression, unspecified; E11.9 Type 2 diabetes mellitus without complications; E78.5 Hyperlipidemia, unspecified; I10 Essential (primary) hypertension; Z86.73 Personal history of transient ischemic attack (TIA), and cerebral infarction without residual deficits; I25.2 Old myocardial infarction; E66.9 Obesity, unspecified; Z68.41 Body mass index [BMI] 40.0-44.9, adult; E11.40 Type 2 diabetes mellitus with diabetic neuropathy, unspecified; Z72.0 Tobacco use; K21.9 Gastro-esophageal reflux disease without esophagitis; Z86.711 Personal history of pulmonary embolism; Z88.0 Allergy status to penicillin; Z88.2 Allergy status to sulfonamides
CPT/HCPCS: 93005; 93306; 85025 ×2; 80048; 36415; 83735 ×2; 82550; 84100; 85610; 80061; 82947 ×5; 85730 ×6; 84443; 84484 ×3; 84439; 83690; 80053; 83880; 71275; 74018; 71045; 96375; 96374; 99285; 87811; Q9967; J2765; J1200; J1644; G0378

== ENCOUNTER 2022-11-14 16:41 | Emergency (ER) | payer OTHER ==
--- OUTSIDE RECORDS SUMMARY | 2022-11-14 16:59 | XMS REPORT | Continuity of Care Document ---
:1965 Author Organization [facility] t Address [address] [facility] [place] [address] Care Team Providers Name Role Phone Jael Lozano MD Primary Care Physician Orlando Burnett Attending Clinician Unavailable SATHYA SCHULZ Attending Clinician Unavailable CHRISSY HAGEN Attending Clinician Unavailable Zirpoli AGACNP, Jennifer Attending Clinician Hieu DOTY, Chrissy Attending Clinician Doctor Unassigned, Linn Attending Clinician Unavailable Reanan VICTORIA, Sunita Hough Attending Clinician Unavailable ATILIO DURANT Attending Clinician Unavailable Melonie King MD Attending Clinician Carleen DOTY, Atilio Attending Clinician Call, [facility] Phone Attending Clinician Unavailable CAROL VICENTE Attending Clinician Unavailable Roxana ALVES, Jorge Milan Attending Clinician Carol Vicente MD Attending Clinician SERG ELLISON Attending Clinician Unavailable Serg Ellison DO Attending Clinician IRIS PRUETT Attending Clinician Unavailable Flynn DOTY, Iris Attending Clinician CRISTINA SHORT Attending Clinician Unavailable Han DOTY, Cristina Attending Clinician SHIRA ADAMS Attending Clinician Unavailable Shira Vickers Attending Clinician MILLER FRYE Attending Clinician Unavailable Uday DOTY, Miller Pena Attending Clinician KIM LERMA Attending Clinician Unavailable Spencer ALVES, Ludwig Attending Clinician Kim Lerma MD Attending Clinician Eulalio Simmons MD Attending Clinician EULALIO SIMMONS Attending Clinician Unavailable Amelia Borrego RN Attending Clinician Unavailable Joslyn Ocampo RN Attending Clinician LACIE Chin Attending Clinician Unavailable Lacie Dickey Attending Clinician SPRING VELAZQUEZ Attending Clinician Unavailable Andreas HENDERSONP, Kasie Attending Clinician Елена Landers Attending Clinician ЕЛЕНА LYMAN Attending Clinician Unavailable Brynn Hernandez RN Attending Clinician Unavailable Only, Ang Db Test Attending Clinician Unavailable Lab, Ang - Db Attending Clinician Unavailable Cassandra Fragoso Attending Clinician Sathya Schulz MD Attending Clinician Mannie VICTORIA, Tori Attending Clinician Unavailable London DOTY, Faye Attending Clinician Only, Adc Test Attending Clinician Unavailable Maximo VICTORIA, Noa Hough Attending Clinician Unavailable [facility] Attending Clinician Unavailable Ame DOTY, Estephania K.H. Attending Clinician ESTEPHANIA MCCLOUD K.H. Attending Clinician Unavailable Lian DOTY, Ilana Mcintyre Attending Clinician Jennifer Treadwell Attending Clinician MAMADOU ARANA Attending Clinician Unavailable MAMADOU ARANA Attending Clinician Unavailable Mamadou Arana MD Attending Clinician CHARLEEN SANCHEZ III Attending Clinician Unavailable SATHYA SCHULZ Admitting Clinician Unavailable MELONIE KING Admitting Clinician Unavailable CHRISSY HAGEN Admitting Clinician Unavailable Chrissy Hagen MD Admitting Clinician JORGE SCHMIDT Admitting Clinician Unavailable CRISTINA SHORT Admitting Clinician Unavailable SHIRA ADAMS Admitting Clinician Unavailable MILLER FRYE Admitting Clinician Unavailable LUDWIG PALMER Admitting Clinician Unavailable IRIS PRUETT Admitting Clinician Unavailable Sathya Schulz MD Admitting Clinician Ilana Beal MD Admitting Clinician [phone] Payers Payer Name Policy Type Policy Number Effective Date Expiration Date S ronnell [facility] [id number] 2018 PLUS 00:00:00 SUSY [id number] [place]ICARE [place] [id number] 2020 Common HEALTHCARE 00:00:00 [facility] BELLE [id number] 2010 2018 HEALTHCARE 00:00:00 00:00:00 MEDICAID Problems Condition Condition Condition Status Onset Resolution Last Treating Co mments Source Name Details Category Date Date Treatment Clinician Date Fall, Fall, Disease Active Univers initial initial 7-25 [place] [facility] [place] Lumbar Lumbar Disease Active Overview: Univer s spondylosi spondylosi 6-14 Formattin ity of s s 00:00: g of this [place] note Medical might be Branch different from the original. Added automatic ally from request for surgery [id number] Leukocytos Leukocytos Disease Active U nivers is, [...] Formattin ity of 00:00: g of this [place] note Medical might be Branch different from the original. Added automatic ally from request for surgery [id number] LEN LEN Disease Active Univers (obstructi (obstructi [...] yocardial 1-21 ity of bridge bridge 00:00: [place] [facility] Tobacco Tobacco Disease Active Univers abuse abuse 1-21 ity of 00:00: Medical Branch Morbid Morbid Disease Active 2015-02 Univers obesity obesity 1-16 [place] of with body with body [place] mass index mass index 00 Me dical of of Branch 40.0-49.9 40.0-49.9 Chest pain Chest pain Disease Active 2015-02 U nivers 1-15 ity of 00:00: Medical Branch CVA CVA Disease Active [facility] ([facility]rebral (cerebral 7[facility]14 [facility] vascular 00:00: Medica l accident) accident) 00 Cent er Right-side Right-side Disease Active [facility] d muscle d muscle 08-31 [facility] weakness weakness 00:00: Medica l 00 Story Aphasia Aphasia Disease [facility] Medical 00 Story Morbid Morbid Disease Recurre [facility] obesity obesity nce 08[facility] Center History of History of Disease Recur[facility] gastric gastric nee 08-30 [facility] surgery surgery 00:00: Medical 00 Story History of History of Disease Recurre [facility] AZ AZ nee 08-30 [facility] (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 00:00: Co dical l l 00 Story infarction infarction ) ) H/O H/O Disease Recurre [facility] nee 08-30 [facility] section section 00:00: Medical 00 Story Smoking Smoking Disease Recurre [facility] history history nce 08-[address] [facility] 00:00: Medical 00 Story Type 2 Type [address] [facility] diabetes diabetes nee 08-[address] [facility] mellitus mellitus 00:00: Medica l 00 Center HTN HTN Disease Recurre [facility] (hypertens (hypertens nce 08-30 [place] [facility] ion) ion) 00:00: Medical 00 Center Metabolic Metabolic Disease Recurre [facility] syndrome syndrome nce 08-30 [facility] 00:[facility]: Medical 00 Story Acute CVA Acute CVA Disease Active [facility] (cerebrova (cerebrova 08-29 [place] [facility] scular scular 00:00: Medical accident) accident) 00 Cent er [id number] Controlled Problem Active Co mmon type 2 Spirit diabetes - [facility] mellitus [facility] without [facility] complicati Medica l on, Center without long-term current use of insulin [id number] Bipolar Problem Active Commo n affective Spirit disorder, - [facility] depressed, Medica l current Center episode severity unspecifie d [id number] Depression Problem Active Com mon with Spirit anxiety - [facility] [id number] Chronic Problem Active Commo n pain Spirit syndrome - [facility] [id number] HTN Problem Active Common (hypertens Spirit ion), - [facility] benign [facility] [id number] Primary Problem Active Comm on osteoarthr Spirit itis of - [facility] left knee [facility] [id number] Seasonal Problem Active Comm on allergies [facility] [id number] Hypercalce Problem Active Com mon marcin [facility] [id number] Mixed Problem Active Common hyperlipid Spirit emia - [facility] [id number] Neuropathy Problem Active Co mmon Spirit - [facility] [id number] GERD Problem Active Common without Spirit esophagiti - CHI s [facility] [id number] History of Problem Active Co mmon CVA Spirit (cerebrova - [facility] scular [facility] accident) [facility] without Medical residual Center deficits [id number] Constipati Problem Active Com mon on, Spirit unspecifie - [facility] d [facility] constipati [facility] on type Medical Center Allergies, Adverse Reactions, [...] 1-15 ity of 00:00: [place] 00 Medical [place] SULFA Drug Active Anaphylaxis 2015-02 Unive rs (SULFONA Class 1-15 ity of MIDE 00:00: [place] ANTIBIOT 00 Medical ICS) Branch SULFA Allergy Active Low Rash [facility] (SULFONA [facility]TIBIOT [facility] ICS) 0 Drug Active Unknown Common allergy [facility] Morphine Drug Active Rash [facility] Sulfa Drug Active Rash [facility] (Sulfona Allergy [facility] ics) MORPHINE Allergy Active Low Rash [facility] Social History Social Habit Start Date Stop Date Quantity Comments Source Gender identity Universit y [facility] Sexual orientation Univer [facility] History of tobacco Cigarette Smoker [facility] History of Social 2022-08-29 2022-08-29 Univers ity of function 00:00:00 00:00:00 [facility] Exposure to 2022-07-15 2022-07-25 Not sure University SARS-CoV-2 (event) 00:00:00 08:52:00 [facility] Cigarettes smoked 2022-06-14 2022-06-14 Univers ity of current (pack per 00:00:00 00:00:00 [facility] ) - Reported Branch Cigarette 2022-06-14 2022-06-14 University of pack-years 00:00:00 00:00:00 [facility] Tobacco use and 2022-06-14 2022-06-14 Smokeless Universit y of exposure 00:00:00 00:00:00 tobacco non-user [facility] dical Branch History SDOH 2019-12-09 2019-12-09 5 University o f Financial 00:00:00 00:00:00 [facility] Branch History SDOH Food 2019-12-09 2019-12-09 1 Univers ity of Worry 00:00:00 00:00:00 [facility] Branch History SDME Food 2019-12-09 2019-12-09 1 Univers ity of Scarcity 00:00:00 00:00:00 [place] [facility] History SDOH 2019-12-09 2019-12-09 2 University o f Transport Med 00:00:00 00:00:00 [place] [facility] History SDME 2019-12-09 2019-12-09 2 University o f Transport Non-Med 00:00:00 00:00:00 [facility] Alcohol intake 2015-09-08 2015-09-08 Current [facility] St Selene es 00:00:00 00:00:00 non-drinker of Medical Ce nter alcohol (finding) Sex Ass[birth year] [facility] [place] kes 00:00:00 00:00:00 [facility] Smoking Status Start Date Stop Date Source Smokes tobacco daily 2022-06-14 00:00:00 Univers ity of [facility] Never smoked tobacco [facility] Medications Ordered Filled Start Stop Current Ordering Indication Dosage Frequency Signature Comments Components Source Medication Medication Date Date Medication? Clinician (SIG) Name Name aspirin 81 2022- Yes 81mg Take 81 mg U nivers mg chewable 7-28 by mouth ity of tablet 13:20: daily. [address] Branch DULoxetine 2023-0 Yes 30mg Take 30 mg U nivers (CYMBALTA) 7-28 by mouth ity o f 30 mg 13:20: daily. [place] [address] Medical Branch amitriptyli 2022-0 Yes 25mg Take 25 mg Univers ne 25 mg 7-28 by mouth ity of tablet 13:20: at bedtime [place] [address] as needed Medical for Branch Insomnia. DULoxetine 2022-0 Yes 60mg Take 60 mg U nivers (CYMBALTA) 7-28 by mouth ity o f 60 mg 13:20: daily. [place] [address] Medical Branch aspirin 81 2022-0 Yes 81mg Take 81 mg U nivers mg chewable 7-28 by mouth ity of tablet 13:20: daily. [place] [address] Medical [place] DULoxetine 2022-0 Yes 30mg Take 30 mg U nivers (CYMBALTA) 7-28 by mouth ity o f 30 mg 13:20: daily. [place] [address] Medical [place] amitriptyli 2022-0 Yes 25mg Take 25 mg Univers ne 25 mg 7-28 by mouth ity of tablet 13:20: at bedtime [place] [address] as needed Medical for Branch Insomnia. DULoxetine 2022-0 Yes 60mg Take 60 mg U nivers (CYMBALTA) 7-28 by mouth ity o f 60 mg 13:20: daily. [place] [address] Medical Branch aspirin 81 2022-0 Yes 81mg Take 81 mg U nivers mg chewable 7-28 by mouth ity of tablet 13:20: daily. [place] [address] Medical [place] DULoxetine 2022-0 Yes 30mg Take 30 mg U nivers (CYMBALTA) 7-28 by mouth ity o f 30 mg 13:20: daily. [place] [address] Medical Branch amitriptyli 2022-0 Yes 25mg Take 25 mg Univers ne 25 mg 7-28 by mouth ity of tablet 13:20: at bedtime [place] [address] as needed Medical for Branch Insomnia. DULoxetine 3-0 Yes 60mg Take 60 mg U nivers (CYMBALTA) 7-28 by mouth ity o f 60 mg 13:20: daily. [place] [address] Medical Branch aspirin 81 2022-0 Yes 81mg Take 81 mg U nivers mg chewable 7-28 by mouth ity of tablet 13:20: daily. [address] DULoxetine 2022-0 Yes 30mg Take 30 mg U nivers (CYMBALTA) 7-28 by mouth ity o f 30 mg 13:20: daily. [place] [address] Medical Branch amitriptyli 2022-0 Yes 25mg Take 25 mg Univers ne 25 mg 7-28 by mouth ity of tablet 13:20: at bedtime [place] [address] as needed Medical for Branch Insomnia. DULoxetine 2022-0 Yes 60mg Take 60 mg U nivers (CYMBALTA) 7-28 by mouth ity o f 60 mg 13:20: daily. [address] aspirin 81 2022-0 Yes 81mg Take 81 mg U nivers mg chewable 7-28 by mouth ity of tablet 13:20: daily. [address] DULoxetine 2022-0 Yes 30mg Take 30 mg U nivers (CYMBALTA) 7-28 by mouth ity o f 30 mg 13:20: daily. [address] amitriptyli 2022-0 Yes 25mg Take 25 mg Univers ne 25 mg 7-28 by mouth ity of tablet 13:20: at bedtime [place] [address] as needed Medical for Branch Insomnia. DULoxetine 2022-0 Yes 60mg Take 60 mg U nivers (CYMBALTA) 7-28 by mouth ity o f 60 mg 13:20: daily. [place] [address] Medical [place] aspirin 81 2022-0 Yes 81mg Take 81 mg U nivers mg chewable 7-28 by mouth ity of tablet 13:20: daily. [address] DULoxetine 2022-0 Yes 30mg Take 30 mg U nivers (CYMBALTA) 7-28 by mouth ity o f 30 mg 13:20: daily. [place] [address] Medical [place] amitriptyli 0 Yes 25mg Take 25 mg Univers ne 25 mg 7-28 by mouth ity of tablet 13:20: at bedtime [place] [address] as needed Medical for Branch Insomnia. DULoxetine 2022-0 Yes 60mg Take 60 mg U nivers (CYMBALTA) 7-28 by mouth ity o f 60 mg 13:20: daily. [address] HYDROcodone 2022-0 Yes 1{tbl} 1 tablet, Univers -acetaminop 7-27 Oral, ity of hen (NORCO 15:44: Q6HPRN, [place] 5) 5-325 mg 04 Starting Medi elizabeth tablet 1 on [place] Branch tablet 09/20/22 at 1044, Until Discontinu ed, Routine, Pain (scale 4-6) KCL 2022- No 40meq 40 mEq, Univers (KLOR-CON 09-20 Oral, ity of M20) tablet 12:15: 14:39 ONCE, 1 [place] 40 mEq 00 :00 dose, On Medical [place] Branch 09/20/22 at 0715, Routine ondansetron Yes 4mg 4 mg, Slow Univers (ZOFRAN 09-20 IV Push, ity of (PF)) 09:29: Q6HPRN, [place] injection 4 57 Nausea and Me dical mg Vomiting Branch (N/V), Starting on [place] 09/20/22 at 0429
Do ses of ondansetro n 16 mg and above need to be administer ed via IV piggyback. For Dose >=24mg ECG monitoring is advisable.
aspirin 81 Yes 81mg Take 81 mg U nivers mg chewable 09-20 by mouth ity of tablet 09:17: daily. [address] Branch DULoxetine Yes 30mg Take 30 mg U nivers (CYMBALTA) 09-20 by mouth ity o f 30 mg 09:17: daily. [address] Branch amitriptyli Yes 25mg Take 25 mg Univers ne 25 mg 09-20 by mouth ity of tablet 09:17: at bedtime [place] [address] as needed Medical for Branch Insomnia. DULoxetine Yes 60mg Take 60 mg U nivers (CYMBALTA) 09-20 by mouth ity o f 60 mg 09:17: daily. [place] capsule 28 Medical Branch gabapentin 2022- No 300mg 300 mg, Un ines (NEURONTIN) 09-20 Oral, BID, i ty of capsule 300 01:00: 15:43 First dose [place] mg 00 :51 (after Medical last Branch modificati on) on Sat09/19/22 at 2000, Until Discontinu ed, Routine methocarbam 2022- Yes [id number] 500mg Take 1 Univers oL 500 mg 09-20 [id number] tablet by it y of tablet 00:00: 04:59 mouth 4 [place] 00 :00 (four) Medical times Branch daily for 10 days as needed for muscle spasms. methocarbam 2022- Yes [id number] 500mg Take 1 Univers oL 500 mg 09-20 [id number] tablet by it y of tablet 00:00: 04:59 mouth 4 [place] 00 :00 (four) Medical times Branch daily for 10 days as needed for muscle spasms. HYDROcodone 2022- No [id number] 1{tbl} Take 1 U nivers -acetaminop 09-20 tablet by it y of hen 10-325 00:00: 00:00 mouth [place] mg tablet 00 :00 every 4 Medical (four) Branch hours as needed for Pain (scale 4-6) for up to 7 days. Indication s: acute pain methocarbam 2022- No 500mg 500 mg, U nivers oL 09-19 Oral, QID, ity of (ROBAXIN) 21:00: 15:43 First dose [place] tablet 500 00 :51 on Sat Medical mg 09/19/22 at Branch 1600, Until Discontinu ed, Routine acetaminoph Yes 650mg 650 mg, Un ines en 09-19 Oral, Q8H, ity of (TYLENOL) 19:00: First dose [place] tablet 650 00 (after Medical mg last Branch modificati on) on Sat09/19/22 at 1400, Until Discontinu ed, Routine morpHINE (2 Yes 2mg 2 mg, Slow Univers mg/mL) 09-19 IV Push, ity of injection 2 18:15: Q3HPRN, [place] as mg 00 Starting Medical on Sat Branch 09/19/22 at 1315, Until Discontinu ed, Routine, Pain (scale 7-10) HYDROcodone 2022- No 1{tbl} 1 tablet, Univers -acetaminop 09-19 Oral, ity of hen (NORCO) 18:10: 15:44 Q4HPRN, [place] 10-325 mg 34 :19 Starting Medica l tablet 1 on Sat Branch tablet 09/19/22 at 1310, Until [place] 09/20/22 at 1044, Routine, Pain (scale 4-6) D5W 0.45% 2022- No IV Univers NaCl 09-19 Infusion, ity of (1/2NS) 1 L 13:30: 12:36 at 125 [place] as + KCL 20 00 :28 mL/hr, Medical mEq CONTINUOUS Branch , Starting on Sat09/19/22 at 0830, Until Sat09/20/22 at 0736, Routine atorvastati Yes 40mg 40 mg, Univ ers n (LIPITOR) 09-19 Oral, QHS, it y of tablet 40 02:00: First dose [place] mg 00 on Sat [facility] 09/18/22 at Branch 2100, Until Discontinu ed, Routine apixaban Yes 2.5mg 2.5 mg, Unive rs (ELIQUIS) 09-19 Oral, BID, ity of tablet 2.5 01:00: First dose [place] mg 00 on Sat09/18/22 at Branch 2000, Until Discontinu ed, Routine
Indicatio ns: DVT/PE gadoteridol 2022- No [id number] .2mL/kg 19.24 mL Univers (PROHANCE-2 09-18 [id number] (0.2 mL/kg ity of 0 mL) 21:45: 21:45 ?96.2 kg), [place] injection 00 :00 Intravenou Medi elizabeth 19.24 mL s, ONCE, 1 Branc h dose, On Sat09/18/22 at 1645, Routine D5W 0.45% 2022- No IV Univers NaCl 09-18 Infusion, ity of (1/2NS) 1 L 21:15: 13:20 at 42 [place] + KCL 20 00 :13 mL/hr, Medical mEq CONTINUOUS Branch , Starting on Sat09/18/22 at 1615, Until Sat09/19/22 at 0820, Routine docusate Yes 100mg 100 mg, Unive rs (COLACE) 09-18 Oral, ity of capsule 100 14:00: DAILY, [place] mg 00 First dose Medical on Sat [place] 09/18/22 at 0900, Until Discontinu ed, Routine pantoprazol 2023-0 Yes 40mg 40 mg, Univ ers e 09-18 Oral, ity of (PROTONIX) 14:00: DAILY, [place] EC tablet 00 First dose Medi elizabeth 40 mg on [facility] 09/18/22 at 0900, Until Discontinu ed, Routine DULoxetine Yes 30mg 30 mg, [facility] (CYMB[facility]) 09-18 Oral, ity of capsule 30 14:00: DAILY, [place] mg 00 First dose Medical on [facility] 09/18/22 at 0900, Until Discontinu ed, Routine colchicine Yes .6mg 0.6 mg, Univ ers (COLCRYS) 09-18 Oral, QAM, ity of tablet 0.6 14:00: First dose [place] mg 00 on [facility] 09/18/22 at Branch 0900, Until Discontinu ed, Routine allopurinoL Yes 100mg 100 mg, Un ines (ZYLOPRIM) 09-18 Oral, ity of tablet 100 14:00: DAILY, [place] mg 00 First dose Medical on [facility] 09/18/22 at 0900, Until Discontinu ed, Routine Sliding Yes Subcutaneo [facility] ers Scale 09-18 us, TID ity of Insulin - 13:00: MEALS+HS, [place] as Lispro 00 First dose Medical (HumaLOG) on [facility] 09/18/22 at 0800, Until Discontinu ed, Routine gabapentin 2022- No 300mg 300 mg, Un ines (NEURONTIN) 09-18 Oral, TID, i ty of capsule 300 13:00: 18:04 First dose [place] mg 00 :37 on [facility] 09/18/22 at Branch 0800, Until Discontinu ed, Routine heparin 2022- No 5000U 5,000 Univers (porcine) 09-18 Units, ity of injection 13:00: 14:41 Subcutaneo [place] 5,000 Units 00 :28 us, BID, Medi elizabeth First dose Branch on [facility] 09/18/22 at 0800, Until Discontinu ed, Routine morpHINE (2 2022- No 2mg 2 mg, Slow Univers mg/mL) 09-18 IV Push, ity of injection 2 06:15: 18:04 Q4HPRN, [place] mg 06 :37 Starting Medical on Sat Branch 09/18/22 at 0115, Until Sat09/19/22 at 1304, Routine, Pain (scale 7-10) D5W 0.45% 2022- No IV Univers NaCl 09-18 07-25 Infusion, ity of (1/2NS) 1 L 05:30: 21:03 at 100 [place] as + KCL 20 00 :16 mL/hr, Medical mEq CONTINUOUS Branch , Starting on Sat09/18/22 at 0030, Until Sat09/18/22 at 1603, Routine dextrose Yes 250mL 250 mL, IV Un ines 10% (D10W) 09-18 Infusion, ity of bolus 05:20: PRN - SEE [place] infusion 41 INSTRUCTIO Medic al 250 mL NS, Branch Administer over 60 Minutes, Other, If blood glucose is < or = 70 mg/dL and patient is unable to swallow or has mental status changes, Starting on Sat09/18/22 at 0020
If blood glucose is < or = 70 mg/dL and patient is unable to swallow or has mental status changes (Give glucagon order if patient needs fluid restrictio n): IF IV access available: Dextrose 10%. 1. 125 mL (? bag) of D10W IV infusion - equivalent to 12.5 g dextrose 2. Blood glucose - draw blood glucose 15 minutes after D10W Administra tion. 3. If blood glucose is < 80 mg/dL, repeat.
glucagon Yes 1mg 1 mg, Univers (GLUCAGEN 09-18 Intramuscu ity of DIAGNOSTIC 05:20: lar, PRN, [place] KIT) 37 Starting Medical injection 1 on Sat Branch mg 09/18/22 at 0020, Until Discontinu ed, THEODORE, Blood Glucose < or = 70 mg/dL and patient is NPO, unable to swallow or has mental changes. nitroglycer Yes .4mg 0.4 mg, Uni vers in 09-18 Sublingual ity of (NITROSTAT) 05:18: , Q5MIN [place] as sublingual 16 PRN, Medical tablet 0.4 Starting Branc h mg on Sat09/18/22 at 0018, Until Discontinu ed, Routine, Chest pain HYDROcodone 2022- No 1{tbl} 1 tablet, Univers -acetaminop 09-18 Oral, ity of hen (NORCO) 05:18: 18:11 Q4HPRN, [place] 10-325 mg 16 :01 Starting Medica l tablet 1 on Sat tablet 09/18/22 at 0018, Until Sat09/19/22 at 1311, Routine, Pain (scale 4-6), Pain (scale 7-10) amitriptyli Yes 25mg 25 mg, Univ ers ne (ELAVIL) 09-18 Oral, ity of tablet 25 05:18: QHSPRN, [place] mg 15 Starting Medical on Sat Branch 09/18/22 at 0018, Until Discontinu ed, Routine, Insomnia HYDROcodone 2022- No 1{tbl} 1 tablet, Univers -acetaminop 08-29 Oral, ity of hen (NORCO 17:45: 19:06 ONCE, 1 [place] as 5) 5-325 mg 00 :00 dose, On Medi elizabeth tablet 1 Sat08/29/22 Branc h tablet at 1245, Routine, PACU HYDROcodone 2022- No 1{tbl} 1 tablet, Univers -acetaminop 08-29 Oral, ity of hen (NORCO 17:45: 19:06 ONCE, 1 [place] as 5) 5-325 mg 00 :00 dose, On Medi elizabeth tablet 1 Sat08/29/22 Branc h tablet at 1245, Routine, PACU vancomycin 2022- No PRN, Univer s (VANCOCIN) 08-29 Starting ity of 1 g in 17:37: 19:04 on Sat [place] sodium 00 :57 08/29/22 at Medical chloride 1237, Branch 0.9 % Until Sat irrigation 08/29/22 at 1404, 1,000 mL, Intra-op methylPREDN 2022- No PRN, Unive rs ISolone 08-29 Starting ity of acetate 17:36: 19:04 on Sat [place] (DEPO-MEDRO 00 :57 08/29/22 at Med ical L) 1236, Branch injection Until Sat08/29/22 at 1404, Routine, Intra-op bupivacaine 2022- No PRN, Unive rs (preserv 08-29 Starting ity of free) 17:36: 19:04 on Sat [place] (SENSORCAIN 00 :57 08/29/22 at Med ical E MPF) 0.25 1236, Branch % (2.5 Until Sat mg/mL) 08/29/22 at injection 1404, Routine, Intra-op HYDROmorpho Yes .2mg 0.2 mg, Uni vers ne 08-29 Slow IV ity of (DILAUDID) 17:32: Push, [place] injection 29 Q5MIN PRN, Medi elizabeth 0.2 mg 10 doses, Branch Starting on Sat08/29/22 at 1232, Until Discontinu ed, Routine, Pain (scale 7-10), PACU
Us e approved by (Faculty): PACU USE -ANESTHESI A SERVICE-HY DROMORPHON E INJECTIONS proMETHazin Yes 12.5mg 12.5 mg, Univers e 08-29 IV ity of (PHENERGAN) 17:32: Piggyback, [place] 12.5 mg in 29 at 200 Medical NS 50 mL IV mL/hr Branch piggyback Administer (CNR) over 15 Minutes, PRN, 1 dose, Starting on Sat08/29/22 at 1232, Until Discontinu ed, Routine, Nausea and Vomiting (N/V), PACU ketorolac 2022- Yes 30mg 30 mg, Unive rs (TORADOL) 08-29 Slow IV ity of injection 17:32: 04:59 Push, PRN, [place] 30 mg 29 :00 1 dose, Medical Starting Branch on Sat08/29/22 at 1232, Until [place] 08/30/22 at 2359, Routine, Pain (scale 4-6), PACU HYDROmorpho 2022- No .2mg 0.2 mg, Un ines ne 08-29 Slow IV ity of (DILAUDID) 17:32: 22:29 Push, [place] injection 29 :09 Q5MIN PRN, Medi elizabeth 0.2 mg 10 doses, Branch Starting on Sat08/29/22 at 1232, Until Sat08/29/22 at 1729, Routine, Pain (scale 7-10), PACU
Us e approved by (Faculty): PACU USE -ANESTHESI A SERVICE-HY DROMORPHON E INJECTIONS ketorolac 2022- No 30mg 30 mg, Unive rs (TORADOL) 08-29 Slow IV ity of injection 17:32: 22:29 Push, PRN, [place] 30 mg 29 :09 1 dose, Medical Starting Branch on Sat08/29/22 at 1232, Until Sat08/29/22 at 1729, Routine, Pain (scale 4-6), PACU proMETHazin 2022- No 12.5mg 12.5 mg, [facility] [place] [facility] e 08-29 IV ity of (PHENERGAN) 17:32: 22:29 Piggyback, [place] 12.5 mg in 29 :09 at 200 Medical NS 50 mL IV mL/hr Branch piggyback Administer (CNR) over 15 Minutes, PRN, 1 dose, Starting on Sat08/29/22 at 1232, Until Sat08/29/22 at 1729, Routine, Nausea and Vomiting (N/V), PACU thrombin 2022- No PRN, [facility] topical 08-29 Starting ity of solution 16:46: 19:04 on Sat [place] 00 :57 08/29/22 at Medical 1146, Branch Until Sat08/29/22 at 1404, Routine, Intra-op lidocaine-e 2022- No PRN, [facility] rs pinephrine 08-29 Starting ity of (XYLOCAINE 16:22: 19:04 on Sat s WITH 00 :57 08/29/22 at Medical EPINEPHRINE 1122, [place] ) 0.5 Until Sat %-1:200,000 08/29/22 at injection 1404, Routine, Intra-op aspirin 81 Yes 81mg Take 81 mg U nivers mg chewable 08-29 by mouth ity of tablet 15:29: daily. [place] 06 [facility] DULoxetine Yes 30mg Take 30 mg U nivers (CYMBALTA) 7-05 by mouth ity o f 30 mg 15:29: daily. [address] Branch amitriptyli 2022-0 Yes 25mg Take 25 mg Univers ne 25 mg 7-05 by mouth ity of tablet 15:29: at bedtime [place] [id number] as needed Medical for Branch Insomnia. DULoxetine 2022-0 Yes 60mg Take 60 mg U nivers (CYMBALTA) 7-05 by mouth ity o f 60 mg 15:29: daily. [address] Branch aspirin 81 2022-0 Yes 81mg Take 81 mg U nivers mg chewable 7-05 by mouth ity of tablet 15:29: daily. [address] DULoxetine 2022-0 Yes 30mg Take 30 mg U nivers (CYMBALTA) 7-05 by mouth ity o f 30 mg 15:29: daily. [address] amitriptyli 2022-0 Yes 25mg Take 25 mg [facility] ne 25 mg 7-05 by mouth ity of tablet 15:29: at bedtime [place] [id number] as needed Medical for Branch Insomnia. DULoxetine 2022-0 Yes 60mg Take 60 mg U nivers (CYMBALTA) 7-05 by mouth ity o f 60 mg 15:29: daily. [address] aspirin 81 0 Yes 81mg Take 81 mg U nivers mg chewable 7-05 by mouth ity of tablet 15:29: daily. [address] DULoxetine 2022-0 Yes 30mg Take 30 mg U nivers (CYMBALTA) 7-05 by mouth ity o f 30 mg 15:29: daily. [address] amitriptyli 2022-0 Yes 25mg Take 25 mg Univers ne 25 mg 7-05 by mouth ity of tablet 15:29: at bedtime [place] [id number] as needed Medical for Branch Insomnia. DULoxetine 2022-0 Yes 60mg Take 60 mg U nivers (CYMBALTA) 7-05 by mouth ity o f 60 mg 15:29: daily. [address] Branch aspirin 81 2022-0 Yes 81mg Take 81 mg U nivers mg chewable 7-05 by mouth ity of tablet 15:29: daily. [address] Branch DULoxetine 2022-0 Yes 30mg Take 30 mg U nivers (CYMBALTA) 7-05 by mouth ity o f 30 mg 15:29: daily. [address] Branch amitriptyli 2022-0 Yes 25mg Take 25 mg Univers ne 25 mg 7-05 by mouth ity of tablet 15:29: at bedtime [place] [id number] as needed Medical for Branch Insomnia. DULoxetine 2022-0 Yes 60mg Take 60 mg U nivers (CYMBALTA) 7-05 by mouth ity o f 60 mg 15:29: daily. [address] Branch aspirin 81 2022-0 Yes 81mg Take 81 mg U nivers mg chewable 7-05 by mouth ity of tablet 15:29: daily. [address] DULoxetine 2022-0 Yes 30mg Take 30 mg U nivers (CYMBALTA) 7-05 by mouth ity o f 30 mg 15:29: daily. [address] amitriptyli 2022-0 Yes 25mg Take 25 mg Univers ne 25 mg 7-05 by mouth ity of tablet 15:29: at bedtime [place] [id number] as needed Medical for Branch Insomnia. DULoxetine 2022-0 Yes 60mg Take 60 mg U nivers (CYMBALTA) 7-05 by mouth ity o f 60 mg 15:29: daily. [address] Branch HYDROcodone 2022-0 2022- Yes 4647 1{tbl} Take 1 U nivers -acetaminop 7-05 07-13 tablet by it y of hen (NORCO) 00:00: 04:59 [place] 5-325 mg 00 :00 every 6 Medical tablet (six) Branch hours as needed for Pain (scale 7-10) for up to 7 days. Indication s: acute pain HYDROcodone 2022-0 2022- Yes 4647 1{tbl} Take 1 U nivers -acetaminop 7-05 07-13 tablet by it y of hen (NORCO) 00:00: 04:59 [place] 5-325 mg 00 :00 every 6 Medical tablet (six) Branch hours as needed for Pain (scale 7-10) for up to 7 days. Indication s: acute pain HYDROcodone 2022-0 2022- Yes 4647 1{tbl} Take 1 U nivers -acetaminop 7-05 07-13 tablet by it y of hen (NORCO) 00:00: 04:59 [place] 5-325 mg 00 :00 every 6 Medical tablet (six) Branch hours as needed for Pain (scale 7-10) for up to 7 days. Indication s: acute pain ibuprofen 2022-0 202- No 800mg 800 mg, Uni vers (IBU) 617 -17 Oral, ity of tablet 800 03:00: 02:57 ONCE, 1 [place] as mg 00 :00 dose, On Medical Fri Branch 08/10/22 at 2200, [place] ibuprofen 2022-0 Yes [id number] 800mg Take 1 U nivers 800 mg 6-16 tablet by ity of tablet 00:00: mouth [place] 00 every 8 Medical (eight) Branch hours as needed for Pain (scale 4-6) or Temp > 38.5 C. ibuprofen 2022-0 Yes [id number] 800mg Take 1 U nivers 800 mg 6-16 tablet by ity of tablet 00:00: mouth [place] 00 every 8 Medical (eight) Branch hours as needed for Pain (scale 4-6) or Temp > 38.5 C. ibuprofen 2022-0 Yes [id number] 800mg Take 1 U nivers 800 mg 6-16 tablet by ity of tablet 00:00: mouth [place] 00 every 8 Medical (eight) Branch hours as needed for Pain (scale 4-6) or Temp > 38.5 C. ibuprofen 2022-0 Yes [id number] 800mg Take 1 U nivers 800 mg 6-16 tablet by ity of tablet 00:00: mouth [place] 00 every 8 Medical (eight) Branch hours as needed for Pain (scale 4-6) or Temp > 38.5 C. ibuprofen 2022-0 Yes [id number] 800mg Take 1 U nivers 800 mg 6-16 tablet by ity of tablet 00:00: mouth [place] 00 every 8 Medical (eight) Branch hours as needed for Pain (scale 4-6) or Temp > 38.5 C. ibuprofen 2022-0 Yes [id number] 800mg Take 1 U nivers 800 mg 6-16 tablet by ity of tablet 00:00: mouth [place] 00 every 8 Medical (eight) Branch hours as needed for Pain (scale 4-6) or Temp > 38.5 C. ibuprofen 2022-0 Yes [id number] 800mg Take 1 U nivers 800 mg 6-16 tablet by ity of tablet 00:00: mouth [place] 00 every 8 Medical (eight) Branch hours as needed for Pain (scale 4-6) or Temp > 38.5 C. ibuprofen 2022-0 Yes [id number] 800mg Take 1 U nivers 800 mg 6-16 tablet by ity of tablet 00:00: mouth [place] 00 every 8 Medical (eight) Branch hours as needed for Pain (scale 4-6) or Temp > 38.5 C. ibuprofen 2022-0 Yes [id number] 800mg Take 1 U nivers 800 mg 6-16 tablet by ity of tablet 00:00: mouth [place] 00 every 8 Medical (eight) Branch hours as needed for Pain (scale 4-6) or Temp > 38.5 C. ibuprofen 2022-0 Yes [id number] 800mg Take 1 U nivers 800 mg 6-16 tablet by ity of tablet 00:00: mouth [place] 00 every 8 Medical (eight) Branch hours as needed for Pain (scale 4-6) or Temp > 38.5 C. ibuprofen 2022-0 Yes [id number] 800mg Take 1 U nivers 800 mg 6-16 tablet by ity of tablet 00:00: mouth [place] 00 every 8 Medical (eight) Branch hours as needed for Pain (scale 4-6) or Temp > 38.5 C. ibuprofen 2022-0 Yes [id number] 800mg Take 1 U nivers 800 mg 6-16 tablet by ity of tablet 00:00: mouth [place] 00 every 8 Medical (eight) Branch hours as needed for Pain (scale 4-6) or Temp > 38.5 C. ciprofloxac 2023-0 Yes [id number] 500mg Take 1 Univers in HCl 500 6-13 tablet by ity of mg tablet 00:00: mouth [place] 00 the Medical morning Branch and 1 tablet in the evening. ciprofloxac 2023-0 Yes [id number] 500mg Take 1 [facility] in HCl 500 6-13 tablet by ity of mg tablet 00:00: mouth [place] 00 the Medical morning Branch and 1 tablet in the evening. ciprofloxac 2023-0 Yes [id number] 500mg Take 1 [facility] in HCl 500 6-13 tablet by ity of mg tablet 00:00: mouth [place] 00 the Medical morning Branch and 1 tablet in the evening. ciprofloxac 2023-0 Yes [id number] 500mg Take 1 [facility] in HCl 500 6-13 tablet by ity of mg tablet 00:00: mouth [place] 00 the Medical morning Branch and 1 tablet in the evening. ciprofloxac 2023-0 Yes [id number] 500mg Take 1 [facility] in HCl 500 6-13 tablet by ity of mg tablet 00:00: mouth [place] 00 the Medical morning Branch and 1 tablet in the evening. ciprofloxac 2023-0 Yes [id number] 500mg Take 1 [facility] in HCl 500 6-13 tablet by ity of mg tablet 00:00: mouth [place] 00 the Medical morning Branch and 1 tablet in the evening. ciprofloxac 2023-0 Yes [id number] 500mg Take 1 [facility] in HCl 500 6-13 tablet by ity of mg tablet 00:00: mouth [place] 00 the Medical morning Branch and 1 tablet in the evening. ciprofloxac 2023-0 Yes [id number] 500mg Take 1 [facility] in HCl 500 6-13 tablet by ity of mg tablet 00:00: mouth [place] 00 the Medical morning Branch and 1 tablet in the evening. ciprofloxac 2023-0 Yes [id number] 500mg Take 1 [facility] in HCl 500 6-13 tablet by ity of mg tablet 00:00: mouth [place] 00 the Medical morning Branch and 1 tablet in the evening. ciprofloxac 2023-0 Yes [id number] 500mg Take 1 [facility] in HCl 500 6-13 tablet by ity of mg tablet 00:00: mouth [place] 00 the Medical morning Branch and 1 tablet in the evening. ciprofloxac 2023-0 Yes [id number] 500mg Take 1 [facility] in HCl 500 6-13 tablet by ity of mg tablet 00:00: mouth [place] 00 the Medical morning Branch and 1 tablet in the evening. ciprofloxac 2023-0 Yes [id number] 500mg Take 1 [facility] in HCl 500 6-13 tablet by ity of mg tablet 00:00: mouth [place] 00 the Medical morning Branch and 1 tablet in the evening. ciprofloxac 2023-0 Yes [id number] 500mg Take 1 [facility] in HCl 500 6-13 tablet by ity of mg tablet 00:00: mouth [place] 00 the Medical morning Branch and 1 tablet in the evening. ciprofloxac 2023-0 Yes [id number] 500mg Take 1 [facility] in HCl 500 6-13 tablet by ity of mg tablet 00:00: mouth [place] 00 the Medical morning Branch and 1 tablet in the evening. ciprofloxac 2023-0 Yes [id number] 500mg Take 1 [facility] in HCl 500 6-13 tablet by ity of mg tablet 00:00: mouth [place] 00 the Medical morning Branch and 1 tablet in the evening. ciprofloxac 2023-0 Yes [id number] 500mg Take 1 [facility] in HCl 500 6-13 tablet by ity of mg tablet 00:00: mouth [place] 00 the Medical morning Branch and 1 tablet in the evening. HYDROcodone 2022-0 2023- No 1{tbl} 1 tablet, Univers -acetaminop 08-03- Oral, ity of hen (NORCO) 19:30: 18:39 ONCE, 1 [place] 10-325 mg 00 :00 dose, On Medica l tablet 1 Sat08/03/22 Branc h tablet at 1430, Routine cephALEXin 2023-0 Yes [id number] 500mg Take 1 Univers (KEFLEX) 6-09 capsule by ity o f 500 mg 00:00: mouth 4 [place] capsule 00 (four) Medical times Branch daily. ondansetron 2023-0 Yes [id number] 4mg Take 1 Univers 4 mg 6-09 tablet by ity of disintegrat 00:00: mouth [place] ing tablet 00 every 4 Medica l (four) Branch hours as needed for Nausea and Vomiting (N/V). cephALEXin 2023-0 Yes [id number] 500mg Take 1 Univers (KEFLEX) 6-09 capsule by ity o f 500 mg 00:00: mouth 4 [place] capsule 00 (four) Medical times Branch daily. ondansetron 2023-0 Yes [id number] 4mg Take 1 Univers 4 mg 6-09 tablet by ity of disintegrat 00:00: mouth [place] ing tablet 00 every 4 Medica l (four) Branch hours as needed for Nausea and Vomiting (N/V). cephALEXin 2023-0 Yes [id number] 500mg Take 1 Univers (KEFLEX) 6-09 capsule by ity o f 500 mg 00:00: mouth 4 [place] capsule 00 (four) Medical times Branch daily. ondansetron 2023-0 Yes [id number] 4mg Take 1 Univers 4 mg 6-09 tablet by ity of disintegrat 00:00: mouth [place] ing tablet 00 every 4 Medica l (four) Branch hours as needed for Nausea and Vomiting (N/V). cephALEXin 2023-0 Yes [id number] 500mg Take 1 Univers (KEFLEX) 6-09 capsule by ity o f 500 mg 00:00: mouth 4 [place] capsule 00 (four) Medical times Branch daily. ondansetron 2023-0 Yes [id number] 4mg Take 1 Univers 4 mg 6-09 tablet by ity of disintegrat 00:00: mouth [place] ing tablet 00 every 4 Medica l (four) Branch hours as needed for Nausea and Vomiting (N/V). cephALEXin 2023-0 Yes [id number] 500mg Take 1 Univers (KEFLEX) 6-09 capsule by ity o f 500 mg 00:00: mouth 4 [place] capsule 00 (four) Medical times Branch daily. ondansetron 2023-0 Yes [id number] 4mg Take 1 Univers 4 mg 6-09 tablet by ity of disintegrat 00:00: mouth [place] ing tablet 00 every 4 Medica l (four) Branch hours as needed for Nausea and Vomiting (N/V). cephALEXin 2023-0 Yes [id number] 500mg Take 1 Univers (KEFLEX) 6-09 capsule by ity o f 500 mg 00:00: mouth 4 [place] capsule 00 (four) Medical times Branch daily. ondansetron 2023-0 Yes [id number] 4mg Take 1 Univers 4 mg 6-09 tablet by ity of disintegrat 00:00: mouth [place] ing tablet 00 every 4 Medica l (four) Branch hours as needed for Nausea and Vomiting (N/V). cephALEXin 2023-0 Yes [id number] 500mg Take 1 Univers (KEFLEX) 6-09 capsule by ity o f 500 mg 00:00: mouth 4 [place] capsule 00 (four) Medical times Branch daily. ondansetron 2023-0 Yes [id number] 4mg Take 1 Univers 4 mg 6-09 tablet by ity of disintegrat 00:00: mouth [place] ing tablet 00 every 4 Medica l (four) Branch hours as needed for Nausea and Vomiting (N/V). cephALEXin 2023-0 Yes [id number] 500mg Take 1 Univers (KEFLEX) 6-09 capsule by ity o f 500 mg 00:00: mouth 4 [place] capsule 00 (four) Medical times Branch daily. ondansetron 2023-0 Yes [id number] 4mg Take 1 Univers 4 mg 6-09 tablet by ity of disintegrat 00:00: mouth [place] ing tablet 00 every 4 Medica l (four) Branch hours as needed for Nausea and Vomiting (N/V). cephALEXin 2023-0 Yes [id number] 500mg Take 1 Univers (KEFLEX) 6-09 capsule by ity o f 500 mg 00:00: mouth 4 [place] capsule 00 (four) Medical times Branch daily. ondansetron 2023-0 Yes [id number] 4mg Take 1 Univers 4 mg 6-09 tablet by ity of disintegrat 00:00: mouth [place] ing tablet 00 every 4 Medica l (four) Branch hours as needed for Nausea and Vomiting (N/V). cephALEXin 2023-0 Yes [id number] 500mg Take 1 Univers (KEFLEX) 6-09 capsule by ity o f 500 mg 00:00: mouth 4 [place] capsule 00 (four) Medical times Branch daily. ondansetron 2023-0 Yes [id number] 4mg Take 1 Univers 4 mg 6-09 tablet by ity of disintegrat 00:00: mouth [place] ing tablet 00 every 4 Medica l (four) Branch hours as needed for Nausea and Vomiting (N/V). cephALEXin 2023-0 Yes [id number] 500mg Take 1 Univers (KEFLEX) 6-09 capsule by ity o f 500 mg 00:00: mouth 4 [place] capsule 00 (four) Medical times Branch daily. ondansetron 2023-0 Yes [id number] 4mg Take 1 [facility] 4 mg 6-09 tablet by ity of disintegrat 00:00: mouth [place] ing tablet 00 every 4 Medica l (four) Branch hours as needed for Nausea and Vomiting (N/V). cephALEXin 2023-0 Yes [id number] 500mg Take 1 Univers (KEFLEX) 6-09 capsule by ity o f 500 mg 00:00: mouth 4 [place] capsule 00 (four) Medical times Branch daily. ondansetron 2023-0 Yes [id number] 4mg Take 1 Univers 4 mg 6-09 tablet by ity of disintegrat 00:00: mouth [place] ing tablet 00 every 4 Medica l (four) Branch hours as needed for Nausea and Vomiting (N/V). cephALEXin 2023-0 Yes [id number] 500mg Take 1 Univers (KEFLEX) 6-09 capsule by ity o f 500 mg 00:00: mouth 4 [place] capsule 00 (four) Medical times Branch daily. ondansetron 2023-0 Yes [id number] 4mg Take 1 Univers 4 mg 6-09 tablet by ity of disintegrat 00:00: mouth [place] ing tablet 00 every 4 Medica l (four) Branch hours as needed for Nausea and Vomiting (N/V). cephALEXin 2023-0 Yes [id number] 500mg Take 1 Univers (KEFLEX) 6-09 capsule by ity o f 500 mg 00:00: mouth 4 [place] capsule 00 (four) Medical times Branch daily. ondansetron 2023-0 Yes [id number] 4mg Take 1 Univers 4 mg 6-09 tablet by ity of disintegrat 00:00: mouth [place] ing tablet 00 every 4 Medica l (four) Branch hours as needed for Nausea and Vomiting (N/V). cephALEXin 2023-0 Yes [id number] 500mg Take 1 Univers (KEFLEX) 6-09 capsule by ity o f 500 mg 00:00: mouth 4 [place] capsule 00 (four) Medical times Branch daily. ondansetron 2023-0 Yes [id number] 4mg Take 1 [facility] 4 mg 6-09 tablet by ity of disintegrat 00:00: mouth [place] ing tablet 00 every 4 Medica l (four) Branch hours as needed for Nausea and Vomiting (N/V). cephALEXin 2023-0 Yes [id number] 500mg Take 1 Univers (KEFLEX) 6-09 capsule by ity o f 500 mg 00:00: mouth 4 [place] capsule 00 (four) Medical times Branch daily. ondansetron 2023-0 Yes [id number] 4mg Take 1 Univers 4 mg 6-09 tablet by ity of disintegrat 00:00: mouth [place] ing tablet 00 every 4 Medica l (four) Branch hours as needed for Nausea and Vomiting (N/V). cephALEXin 2023-0 Yes [id number] 500mg Take 1 Univers (KEFLEX) 6-09 capsule by ity o f 500 mg 00:00: mouth 4 [place] capsule 00 (four) Medical times Branch daily. ondansetron 3-0 Yes [id number] 4mg Take 1 Univers 4 mg 6-09 tablet by ity of disintegrat 00:00: mouth [place] ing tablet 00 every 4 Medica l (four) Branch hours as needed for Nausea and Vomiting (N/V). cephALEXin 3-0 Yes [id number] 500mg Take 1 [facility] (KEFLEX) 6-09 capsule by ity o f 500 mg 00:00: mouth 4 [place] capsule 00 (four) Medical times Branch daily. ondansetron 3-0 Yes [id number] 4mg Take 1 Univers 4 mg 6-09 tablet by ity of disintegrat 00:00: mouth [place] ing tablet 00 every 4 Medica l (four) Branch hours as needed for Nausea and Vomiting (N/V). cefUROXime 2022-0 2022- No [id number] 500mg Take 1 [facility] 500 mg 6-10 31-17 tablet by ity of tablet 00:00: 04:59 mouth in [place] 00 :00 the Medical morning Branch and 1 tablet in the evening. Do all this for 7 days. cefUROXime 2022-0 2022- No [id number] 500mg Take 1 [facility] 500 mg 6-10 31-17 tablet by ity of tablet 00:00: 04:59 mouth in [place] 00 :00 the Medical morning Branch and 1 tablet in the evening. Do all this for 7 days. cefUROXime 3-0 2023- No [id number] 500mg Take 1 [facility] 500 mg 6-10 31-17 tablet by ity of tablet 00:00: 04:59 mouth in [place] 00 :00 the Medical morning Branch and 1 tablet in the evening. Do all this for 7 days. cefUROXime 2023-0 2023- No [id number] 500mg Take 1 [facility] 500 mg 6-10 31-17 tablet by ity of tablet 00:00: 04:59 mouth in [place] 00 :00 the Medical morning Branch and 1 tablet in the evening. Do all this for 7 days. colchicine 2023-0 Yes .6mg Take 1 Unive rs 0.6 mg 4-11 tablet by ity of tablet 00:00: mouth [place] 00 every Medical morning. Branch colchicine 2023-0 Yes .6mg Take 1 Unive rs 0.6 mg 4-11 tablet by ity of tablet 00:00: mouth [place] 00 every Medical morning. Branch colchicine 2023-0 Yes .6mg Take 1 Unive rs 0.6 mg 4-11 tablet by ity of tablet 00:00: mouth [place] 00 every Medical morning. Branch colchicine 2023-0 Yes .6mg Take 1 Unive rs 0.6 mg 4-11 tablet by ity of tablet 00:00: mouth [place] 00 every Medical morning. Branch colchicine 2023-0 Yes .6mg Take 1 Unive rs 0.6 mg 4-11 tablet by ity of tablet 00:00: mouth [place] 00 every Medical morning. Branch colchicine 2023-0 Yes .6mg Take 1 Unive rs 0.6 mg 4-11 tablet by ity of tablet 00:00: mouth [place] 00 every Medical morning. Branch colchicine 2023-0 Yes .6mg Take 1 Unive rs 0.6 mg 4-11 tablet by ity of tablet 00:00: mouth [place] 00 every Medical morning. Branch colchicine 2023-0 Yes .6mg Take 1 Unive rs 0.6 mg 4-11 tablet by ity of tablet 00:00: mouth [place] 00 every Medical morning. Branch colchicine 2023-0 Yes .6mg Take 1 Unive rs 0.6 mg 4-11 tablet by ity of tablet 00:00: mouth [place] 00 every Medical morning. Branch colchicine 2023-0 Yes .6mg Take 1 Unive rs 0.6 mg 4-11 tablet by ity of tablet 00:00: mouth [place] 00 every Medical morning. Branch colchicine 2023-0 Yes .6mg Take 1 Unive rs 0.6 mg 4-11 tablet by ity of tablet 00:00: mouth [place] 00 every Medical morning. Branch colchicine 2023-0 Yes .6mg Take 1 Unive rs 0.6 mg 4-11 tablet by ity of tablet 00:00: mouth [place] 00 every Medical morning. Branch colchicine 2023-0 Yes .6mg Take 1 Unive rs 0.6 mg 4-11 tablet by ity of tablet 00:00: mouth [place] 00 every Medical morning. Branch colchicine 2023-0 Yes .6mg Take 1 Unive rs 0.6 mg 4-11 tablet by ity of tablet 00:00: mouth [place] 00 every Medical morning. Branch colchicine 2023-0 Yes .6mg Take 1 Unive rs 0.6 mg 4-11 tablet by ity of tablet 00:00: mouth [place] 00 every Medical morning. Branch colchicine 2023-0 Yes .6mg Take 1 Unive rs 0.6 mg 4-11 tablet by ity of tablet 00:00: mouth [place] 00 every Medical morning. Branch colchicine 2023-0 Yes .6mg Take 1 Unive rs 0.6 mg 4-11 tablet by ity of tablet 00:00: mouth [place] 00 every Medical morning. Branch colchicine 2023-0 Yes .6mg Take 1 Unive rs 0.6 mg 4-11 tablet by ity of tablet 00:00: mouth [place] 00 every Medical morning. Branch colchicine 2023-0 Yes .6mg Take 1 Unive rs 0.6 mg 4-11 tablet by ity of tablet 00:00: mouth [place] 00 every Medical morning. Branch colchicine 2023-0 Yes .6mg Take 1 Unive rs 0.6 mg 4-11 tablet by ity of tablet 00:00: mouth [place] 00 every Medical morning. Branch colchicine 2023-0 Yes .6mg Take 1 Unive rs 0.6 mg 4-11 tablet by ity of tablet 00:00: mouth [place] 00 every Medical morning. Branch colchicine 2023-0 Yes .6mg Take 1 Unive rs 0.6 mg 4-11 tablet by ity of tablet 00:00: mouth [place] 00 every Medical morning. Branch colchicine 2023-0 Yes .6mg Take 1 Unive rs 0.6 mg 4-11 tablet by ity of tablet 00:00: mouth [place] 00 every Medical morning. Branch colchicine 2023-0 Yes .6mg Take 1 Unive rs 0.6 mg 4-11 tablet by ity of tablet 00:00: mouth [place] 00 every Medical morning. Branch OZEMPIC 2023-0 Yes .5mg 0.5 mg. Univers 0.25 mg or 4-03 ity of 0.5 mg(2 00:00: [place] mg/1.5 mL) 00 Medical PnIj Branch OZEMPIC 2023-0 Yes .5mg 0.5 mg. Univers 0.25 mg or 4-03 ity of 0.5 mg(2 00:00: [place] mg/1.5 mL) 00 Medical PnIj Branch OZEMPIC 2023-0 Yes .5mg 0.5 mg. Univers 0.25 mg or 4-03 ity of 0.5 mg(2 00:00: [place] mg/1.5 mL) 00 Medical PnIj Branch OZEMPIC 2023-0 Yes .5mg 0.5 mg. Univers 0.25 mg or 4-03 ity of 0.5 mg(2 00:00: [place] mg/1.5 mL) 00 Medical PnIj Branch OZEMPIC 3-0 Yes .5mg 0.5 mg. [facility] 0.25 mg or 4-03 ity of 0.5 mg(2 00:00: [place] mg/1.5 mL) 00 Medical Pn Branch OZEMPIC 3-0 Yes .5mg 0.5 mg. Univers 0.25 mg or 4-03 ity of 0.5 mg(2 00:00: [place] mg/1.5 mL) 00 Medical PnIj Branch OZEMPIC 3-0 Yes .5mg 0.5 mg. Univers 0.25 mg or 4-03 ity of 0.5 mg(2 00:00: [place] mg/1.5 mL) 00 Medical Ij Branch OZEMPIC 3-0 Yes .5mg 0.5 mg. Univers 0.25 mg or 4-03 ity of 0.5 mg(2 00:00: [place] mg/1.5 mL) 00 Medical PnIj Branch OZEMPIC 3-0 Yes .5mg 0.5 mg. [facility] 0.25 mg or 4-03 ity of 0.5 mg(2 00:00: [place] mg/1.5 mL) 00 Medical PnIj Branch OZEMPIC 3-0 Yes .5mg 0.5 mg. [facility] 0.25 mg or 4-03 ity of 0.5 mg(2 00:00: [place] mg/1.5 mL) 00 Medical PnIj Branch OZEMPIC 3-0 Yes .5mg 0.5 mg. [facility] 0.25 mg or 4-03 ity of 0.5 mg(2 00:00: [place] mg/1.5 mL) 00 Medical PnIj Branch OZEMPIC 2023-0 Yes .5mg 0.5 mg. [facility] 0.25 mg or 4-03 ity of 0.5 mg(2 00:00: [place] mg/1.5 mL) 00 Medical PnIj Branch OZEMPIC 2023-0 Yes .5mg 0.5 mg. Univers 0.25 mg or 4-03 ity of 0.5 mg(2 00:00: [place] mg/1.5 mL) 00 Medical PnIj Branch OZEMPIC 2023-0 Yes .5mg 0.5 mg. Univers 0.25 mg or 4-03 ity of 0.5 mg(2 00:00: [place] mg/1.5 mL) 00 Medical PnIj Branch OZEMPIC 2023-0 Yes .5mg 0.5 mg. Univers 0.25 mg or 4-03 ity of 0.5 mg(2 00:00: [place] mg/1.5 mL) 00 Medical PnIj Branch OZEMPIC 2023-0 Yes .5mg 0.5 mg. Univers 0.25 mg or 4-03 ity of 0.5 mg(2 00:00: [place] mg/1.5 mL) 00 Medical PnIj Branch OZEMPIC 2023-0 Yes .5mg 0.5 mg. Univers 0.25 mg or 4-03 ity of 0.5 mg(2 00:00: [place] mg/1.5 mL) 00 Medical PnIj Branch OZEMPIC 2023-0 Yes .5mg 0.5 mg. [facility] 0.25 mg or 4-03 ity of 0.5 mg(2 00:00: [place] mg/1.5 mL) 00 Medical PnIj Branch OZEMPIC 2023-0 Yes .5mg 0.5 mg. [facility] 0.25 mg or 4-03 ity of 0.5 mg(2 00:00: [place] mg/1.5 mL) 00 Medical PnIj Branch OZEMPIC 2023-0 Yes .5mg 0.5 mg. Univers 0.25 mg or 4-03 ity of 0.5 mg(2 00:00: [place] mg/1.5 mL) 00 Medical PnIj Branch OZEMPIC 2023-0 Yes .5mg 0.5 mg. [facility] 0.25 mg or 4-03 ity of 0.5 mg(2 00:00: [place] mg/1.5 mL) 00 Medical PnIj Branch OZEMPIC 2023-0 Yes .5mg 0.5 mg. Univers 0.25 mg or 4-03 ity of 0.5 mg(2 00:00: [place] mg/1.5 mL) 00 [facility] OZEMPIC 2023-0 Yes .5mg 0.5 mg. Univers 0.25 mg or 4-03 ity of 0.5 mg(2 00:00: [place] mg/1.5 mL) 00 [facility] OZEMPIC 2023-0 Yes .5mg 0.5 mg. Univers 0.25 mg or 4-03 ity of 0.5 mg(2 00:00: [place] mg/1.5 mL) 00 [facility] ergocalcife 2023-0 Yes Univer s rol, 3-17 ity of vitamin d2, 00:00: [place] 1,250 mcg 00 Medical (50,000 Branch unit) capsule ergocalcife 2023-0 Yes Univer s rol, 3-17 ity of vitamin d2, 00:00: [place] 1,250 mcg 00 Medical (50,000 Branch unit) capsule ergocalcife 2023-0 Yes Univer s rol, 3-17 ity of vitamin d2, 00:00: [place] 1,250 mcg 00 Medical (50,000 Branch unit) capsule ergocalcife 2023-0 Yes Univer s rol, 3-17 ity of vitamin d2, 00:00: [place] 1,250 mcg 00 Medical (50,000 Branch unit) capsule ergocalcife 2023-0 Yes Univer s rol, 3-17 ity of vitamin d2, 00:00: [place] 1,250 mcg 00 Medical (50,000 Branch unit) capsule ergocalcife 2023-0 Yes Univer s rol, 3-17 ity of vitamin d2, 00:00: [place] 1,250 mcg 00 Medical (50,000 Branch unit) capsule ergocalcife 2023-0 Yes Univer s rol, 3-17 ity of vitamin d2, 00:00: [place] 1,250 mcg 00 Medical (50,000 Branch unit) capsule ergocalcife 2023-0 Yes Univer s rol, 3-17 ity of vitamin d2, 00:00: [place] 1,250 mcg 00 Medical (50,000 Branch unit) capsule ergocalcife 2023-0 Yes Univer s rol, 3-17 ity of vitamin d2, 00:00: [place] 1,250 mcg 00 Medical (50,000 Branch unit) capsule ergocalcife 2023-0 Yes Univer s rol, 3-17 ity of vitamin d2, 00:00: [place] 1,250 mcg 00 Medical (50,000 Branch unit) capsule ergocalcife 2023-0 Yes Univer s rol, 3-17 ity of vitamin d2, 00:00: [place] 1,250 mcg 00 Medical (50,000 Branch unit) capsule ergocalcife 2023-0 Yes Univer s rol, 3-17 ity of vitamin d2, 00:00: [place] 1,250 mcg 00 Medical (50,000 Branch unit) capsule ergocalcife 2023-0 Yes Univer s rol, 3-17 ity of vitamin d2, 00:00: [place] 1,250 mcg 00 Medical (50,000 Branch unit) capsule ergocalcife 2023-0 Yes Univer s rol, 3-17 ity of vitamin d2, 00:00: [place] 1,250 mcg 00 Medical (50,000 Branch unit) capsule ergocalcife 2023-0 Yes Univer s rol, 3-17 ity of vitamin d2, 00:00: [place] 1,250 mcg 00 Medical (50,000 Branch unit) capsule ergocalcife 2023-0 Yes Univer s rol, 3-17 ity of vitamin d2, 00:00: [place] 1,250 mcg 00 Medical (50,000 Branch unit) capsule ergocalcife 2023-0 Yes Univer s rol, 3-17 ity of vitamin d2, 00:00: [place] 1,250 mcg 00 Medical (50,000 Branch unit) capsule ergocalcife 2023-0 Yes Univer s rol, 3-17 ity of vitamin d2, 00:00: [place] 1,250 mcg 00 Medical (50,000 Branch unit) capsule ergocalcife 2023-0 Yes Univer s rol, 3-17 ity of vitamin d2, 00:00: [place] 1,250 mcg 00 Medical (50,000 Branch unit) capsule ergocalcife 2023-0 Yes Univer s rol, 3-17 ity of vitamin d2, 00:00: [place] 1,250 mcg 00 Medical (50,000 Branch unit) capsule ergocalcife 2022-0 Yes Univer s rol, 3-17 ity of vitamin d2, 00:00: [place] 1,250 mcg 00 Medical (50,000 Branch unit) capsule ergocalcife 2022-0 Yes Univer s rol, 3-17 ity of vitamin d2, 00:00: [place] 1,250 mcg 00 Medical (50,000 Branch unit) capsule ergocalcife 2022-0 Yes Univer s rol, 3-17 ity of vitamin d2, 00:00: [place] 1,250 mcg 00 Medical (50,000 Branch unit) capsule ergocalcife 2022-0 Yes Univer s rol, 3-17 ity of vitamin d2, 00:00: [place] 1,250 mcg 00 Medical (50,000 Branch unit) capsule lubiproston 0 Yes TAKE 1 Univ ers e 24 mcg 3-08 CAPSULE BY ity o f capsule 00:00: MOUTH TWICE Medical DAILY Branch AROUND THE CLOCK lubiproston Yes TAKE 1 Univ ers e 24 mcg 3-08 CAPSULE BY ity o f capsule 00:00: MOUTH TWICE Medical DAILY Branch AROUND THE CLOCK lubiproston Yes TAKE 1 Univ ers e 24 mcg 3-08 CAPSULE BY ity o f capsule 00:00: MOUTH TWICE Medical DAILY Branch AROUND THE CLOCK lubiproston Yes TAKE 1 Univ ers e 24 mcg 3-08 CAPSULE BY ity o f capsule 00:00: MOUTH TWICE Medical DAILY Branch AROUND THE CLOCK lubiproston Yes TAKE 1 Univ ers e 24 mcg 3-08 CAPSULE BY ity o f capsule 00:00: MOUTH TWICE Medical DAILY Branch AROUND THE CLOCK lubiproston 0 Yes TAKE 1 Univ ers e 24 mcg 3-08 CAPSULE BY ity o f capsule 00:00: MOUTH TWICE Medical DAILY Branch AROUND THE CLOCK lubiproston Yes TAKE 1 Univ ers e 24 mcg 3-08 CAPSULE BY ity o f capsule 00:00: MOUTH TWICE Medical DAILY Branch AROUND THE CLOCK lubiproston Yes TAKE 1 Univ ers e 24 mcg 3-08 CAPSULE BY ity o f capsule 00:00: MOUTH TWICE Medical DAILY Branch AROUND THE CLOCK lubiproston 2023-0 Yes TAKE 1 Univ ers e 24 mcg 3-08 CAPSULE BY ity o f capsule 00:00: MOUTH 00 TWICE Medical DAILY Branch AROUND THE CLOCK lubiproston 3-0 Yes TAKE 1 Univ ers e 24 mcg 3-08 CAPSULE BY ity o f capsule 00:00: MOUTH TWICE Medical DAILY Branch AROUND THE CLOCK lubiproston 2022-0 Yes TAKE 1 Univ ers e 24 mcg 3-08 CAPSULE BY ity o f capsule 00:00: MOUTH TWICE Medical DAILY Branch AROUND THE CLOCK lubiproston 2022-0 Yes TAKE 1 Univ ers e 24 mcg 3-08 CAPSULE BY ity o f capsule 00:00: MOUTH TWICE Medical DAILY Branch AROUND THE CLOCK lubiproston 2022-0 Yes TAKE 1 Univ ers e 24 mcg 3-08 CAPSULE BY ity o f capsule 00:00: MOUTH TWICE Medical DAILY Branch AROUND THE CLOCK lubiproston 2022-0 Yes TAKE 1 Univ ers e 24 mcg 3-08 CAPSULE BY ity o f capsule 00:00: MOUTH TWICE Medical DAILY Branch AROUND THE CLOCK lubiproston 2022-0 Yes TAKE 1 [facility] ers e 24 mcg 3-08 CAPSULE BY ity o f capsule 00:00: MOUTH TWICE Medical DAILY Branch AROUND THE CLOCK lubiproston 2022-0 Yes TAKE 1 [facility] ers e 24 mcg 3-08 CAPSULE BY ity o f capsule 00:00: MOUTH TWICE Medical DAILY Branch AROUND THE CLOCK lubiproston 2022-0 Yes TAKE 1 Univ ers e 24 mcg 3-08 CAPSULE BY ity o f capsule 00:00: MOUTH TWICE Medical DAILY Branch AROUND THE CLOCK lubiproston 2022-0 Yes TAKE 1 Univ ers e 24 mcg 3-08 CAPSULE BY ity o f capsule 00:00: MOUTH TWICE Medical DAILY Branch AROUND THE CLOCK lubiproston 3-0 Yes TAKE 1 Univ ers e 24 mcg 3-08 CAPSULE BY ity o f capsule 00:00: MOUTH TWICE Medical DAILY Branch AROUND THE CLOCK lubiproston 2022-0 Yes TAKE 1 Univ ers e 24 mcg 3-08 CAPSULE BY ity o f capsule 00:00: MOUTH TWICE Medical DAILY Branch AROUND THE CLOCK lubiproston 2022-0 Yes TAKE 1 Univ ers e 24 mcg 3-08 CAPSULE BY ity o f capsule 00:00: MOUTH TWICE Medical DAILY Branch AROUND THE CLOCK lubiproston 2023-0 Yes TAKE 1 Univ ers e 24 mcg 3-08 CAPSULE BY ity o f capsule 00:00: TWICE Medical DAILY Branch AROUND THE CLOCK lubiproston 2023-0 Yes TAKE 1 Univ ers e 24 mcg 3-08 CAPSULE BY ity o f capsule 00:00: TWICE Medical DAILY Branch AROUND THE CLOCK lubiproston 2023-0 Yes TAKE 1 Univ ers e 24 mcg 3-08 CAPSULE BY ity o f capsule 00:00: TWICE Medical DAILY Branch AROUND THE CLOCK allopurinoL 2023-0 Yes TAKE 1 Univ ers 100 mg 2-15 TABLET BY ity of tablet 00:00: EVERY DAY Medical Branch DIRECTED allopurinoL 3-0 Yes TAKE 1 Univ ers 100 mg 2-15 TABLET BY ity of tablet 00:00: EVERY DAY Medical Branch DIRECTED allopurinoL 3-0 Yes TAKE 1 Univ ers 100 mg 2-15 TABLET BY ity of tablet 00:00: EVERY DAY Medical Branch DIRECTED allopurinoL 2023-0 Yes TAKE 1 Univ ers 100 mg 2-15 TABLET BY ity of tablet 00:00: EVERY DAY Medical Branch DIRECTED allopurinoL 2023-0 Yes TAKE 1 Univ ers 100 mg 2-15 TABLET BY ity of tablet 00:00: EVERY DAY Medical Branch DIRECTED allopurinoL 2023-0 Yes TAKE 1 Univ ers 100 mg 2-15 TABLET BY ity of tablet 00:00: EVERY DAY Medical Branch DIRECTED allopurinoL 2023-0 Yes TAKE 1 Univ ers 100 mg 2-15 TABLET BY ity of tablet 00:00: EVERY DAY Medical Branch DIRECTED allopurinoL 2023-0 Yes TAKE 1 Univ ers 100 mg 2-15 TABLET BY ity of tablet 00:00: EVERY DAY Medical Branch DIRECTED allopurinoL 2023-0 Yes TAKE 1 Univ ers 100 mg 2-15 TABLET BY ity of tablet 00:00: EVERY DAY Medical Branch DIRECTED allopurinoL 2023-0 Yes TAKE 1 Univ ers 100 mg 2-15 TABLET BY ity of tablet 00:00: EVERY DAY Medical Branch DIRECTED allopurinoL 2023-0 Yes TAKE 1 Univ ers 100 mg 2-15 TABLET BY ity of tablet 00:00: EVERY DAY Medical Branch DIRECTED allopurinoL 2023-0 Yes TAKE 1 Univ ers 100 mg 2-15 TABLET BY ity of tablet 00:00: EVERY DAY Medical Branch DIRECTED allopurinoL 2023-0 Yes TAKE 1 Univ ers 100 mg 2-15 TABLET BY ity of tablet 00:00: EVERY DAY Medical Branch DIRECTED allopurinoL 2023-0 Yes TAKE 1 Univ ers 100 mg 2-15 TABLET BY ity of tablet 00:00: EVERY DAY Medical Branch DIRECTED allopurinoL 2023-0 Yes TAKE 1 Univ ers 100 mg 2-15 TABLET BY ity of tablet 00:00: EVERY DAY Medical Branch DIRECTED allopurinoL 2023-0 Yes TAKE 1 Univ ers 100 mg 2-15 TABLET BY ity of tablet 00:00: EVERY DAY Medical Branch DIRECTED allopurinoL 3-0 Yes TAKE 1 Univ ers 100 mg 2-15 TABLET BY ity of tablet 00:00: EVERY DAY Medical Branch DIRECTED allopurinoL 2023-0 Yes TAKE 1 Univ ers 100 mg 2-15 TABLET BY ity of tablet 00:00: EVERY DAY Medical Branch DIRECTED allopurinoL 2023-0 Yes TAKE 1 Univ ers 100 mg 2-15 TABLET BY ity of tablet 00:00: EVERY DAY Medical Branch DIRECTED allopurinoL 2023-0 Yes TAKE 1 Univ ers 100 mg 2-15 TABLET BY ity of tablet 00:00: EVERY DAY Medical Branch DIRECTED allopurinoL 2023-0 Yes TAKE 1 Univ ers 100 mg 2-15 TABLET BY ity of tablet 00:00: EVERY DAY Medical Branch DIRECTED allopurinoL 2023-0 Yes TAKE 1 Univ ers 100 mg 2-15 TABLET BY ity of tablet 00:00: EVERY DAY Medical Branch DIRECTED allopurinoL 2023-0 Yes TAKE 1 Univ ers 100 mg 2-15 TABLET BY ity of tablet 00:00: EVERY DAY Medical Branch DIRECTED allopurinoL 2023-0 Yes TAKE 1 Univ ers 100 mg 2-15 TABLET BY ity of tablet 00:00: [facility] EVERY DAY Medical Branch DIRECTED FARXIGA 5 2023-0 Yes Univers mg tablet 2-07 ity of 00:00: [place] [facility] ELIQUIS 2.5 2022-0 Yes Univer s mg tablet 2-07 ity of 00:00: [place] [facility] 5 2022-0 Yes Univers mg tablet 2-07 ity of 00:00: [place] [facility] ELIQUIS 2.5 2022-0 Yes Univer s mg tablet 2-07 ity of 00:00: [place] [facility] 5 2022-0 Yes Univers mg tablet 2-07 ity of 00:00: [place] [facility] ELIQUIS 2.5 2022-0 Yes Univer s mg tablet 2-07 ity of 00:00: [place] [facility] 5 2022-0 Yes Univers mg tablet 2-07 ity of 00:00: [place] [facility] ELIQUIS 2.5 2022-0 Yes Univer s mg tablet 2-07 ity of 00:00: [place] [facility] 5 2022-0 Yes Univers mg tablet 2-07 ity of 00:00: [place] [facility] ELIQUIS 2.5 2022-0 Yes Univer s mg tablet 2-07 ity of 00:00: [place] [address] Medical Branch [facility] 5 2022-0 Yes Univers mg tablet 2-07 ity of 00:00: [place] [facility] ELIQUIS 2.5 2022-0 Yes Univer s mg tablet 2-07 ity of 00:00: [place] [address] Medical Branch [facility] 5 2022-0 Yes Univers mg tablet 2-07 ity of 00:00: [place] [facility] ELIQUIS 2.5 2022-0 Yes Univer s mg tablet 2-07 ity of 00:00: [place] [facility] 5 2022-0 Yes Univers mg tablet 2-07 ity of 00:00: [place] [facility] ELIQUIS 2.5 2022-0 Yes Univer s mg tablet 2-07 ity of 00:00: [place] [address] Medical Branch [facility] 5 2022-0 Yes Univers mg tablet 2-07 ity of 00:00: [place] [facility] ELIQUIS 2.5 2022-0 Yes Univer s mg tablet 2-07 ity of 00:00: [place] [address] Medical Branch [facility] 5 2022-0 Yes Univers mg tablet 2-07 ity of 00:00: [place] [facility] ELIQUIS 2.5 2022-0 Yes Univer s mg tablet 2-07 ity of 00:00: [place] [facility] 5 2022-0 Yes Univers mg tablet 2-07 ity of 00:00: [place] [facility] ELIQUIS 2.5 2022-0 Yes Univer s mg tablet 2-07 ity of 00:00: [place] [facility] 5 2022-0 Yes Univers mg tablet 2-07 ity of 00:00: [place] [facility] ELIQUIS 2.5 2022-0 Yes Univer s mg tablet 2-07 ity of 00:00: [place] [facility] 5 2022-0 Yes Univers mg tablet 2-07 ity of 00:00: [place] [facility] ELIQUIS 2.5 2022-0 Yes Univer s mg tablet 2-07 ity of 00:00: [place] [facility] 5 2022-0 Yes Univers mg tablet 2-07 ity of 00:00: [place] [facility] ELIQUIS 2.5 2022-0 Yes Univer s mg tablet 2-07 ity of 00:00: [place] [facility] 5 2022-0 Yes Univers mg tablet 2-07 ity of 00:00: [place] [facility] ELIQUIS 2.5 2022-0 Yes Univer s mg tablet 2-07 ity of 00:00: [place] [facility] 5 2022-0 Yes Univers mg tablet 2-07 ity of 00:00: [place] [facility] ELIQUIS 2.5 2022-0 Yes Univer s mg tablet 2-07 ity of 00:00: [place] [facility] 5 2022-0 Yes Univers mg tablet 2-07 ity of 00:00: [place] [facility] ELIQUIS 2.5 2022-0 Yes Univer s mg tablet 2-07 ity of 00:00: [place] [facility] 5 2022-0 Yes Univers mg tablet 2-07 ity of 00:00: [place] [facility] ELIQUIS 2.5 2022-0 Yes Univer s mg tablet 2-07 ity of 00:00: Medical Branch [facility] 5 2022-0 Yes Univers mg tablet 2-07 ity of 00:00: [place] [facility] ELIQUIS 2.5 2022-0 Yes Univer s mg tablet 2-07 ity of 00:00: [place] [facility] 5 2022-0 Yes Univers mg tablet 2-07 ity of 00:00: [place] [facility] ELIQUIS 2.5 2022-0 Yes Univer s mg tablet 2-07 ity of 00:00: [place] [facility] 5 2022-0 Yes Univers mg tablet 2-07 ity of 00:00: [place] [facility] ELIQUIS 2.5 2022-0 Yes Univer s mg tablet 2- ity of 00:00: [place] [facility] 5 2022-0 Yes Univers mg tablet 2- ity of 00:00: [place] [facility] ELIQUIS 2.5 2022-0 Yes Univer s mg tablet 2- ity of 00:00: [place] [facility] 5 2022-0 Yes Univers mg tablet 2-07 ity of 00:00: [place] [facility] ELIQUIS 2.5 2022-0 Yes Univer s mg tablet 2-07 ity of 00:00: [place] [facility] 5 2022-0 Yes Univers mg tablet 2-07 ity of 00:00: [place] [facility] ELIQUIS 2.5 0 Yes Univer s mg tablet 2-07 ity of 00:00: [place] [address] Medical Branch aspirin 2021-02- No 324mg 324 mg, Unive rs chewable 2-30 12-30 Oral, ity of tablet 324 03:00: 02:32 ONCE, 1 [place] as mg 00 :00 dose, On Medical [place] [facility] 02/22/22 at 2100, [place] FENTanyl PF 2021-02- No 50ug 50 mcg, Un ines (SUBLIMAZE 2-30 12-30 Slow IV ity o f (PF)) 03:00: 02:33 Push, [place] injection 00 :00 ONCE, 1 Medical 50 mcg dose, On Branch [facility] 02/22/22 at 2100, [place] proMETHazin 2021-02- No 12.5mg 12.5 mg, Univers e 2-30 12-30 IV ity of (PHENERGAN) 02:45: 02:34 Piggyback, [place] 12.5 mg in 00 :00 ONCE, 1 Medica l NaCl 0.9% dose, On Branch (NS) 50 mL [facility] IV 02/22/22 piggyback at 2044, [place] iopamidol 2021-02- No [id number] 77mL 77 mL, U nivers (ISOVUE 2-30 12-30 Intravenou ity o f 370-500 mL) 02:45: 02:45 s, ONCE, 1 [place] injection 00 :00 dose, On Medica l 77 mL [place] Branch 02/22/22 at 2044, Routine lactulose 2021-02 Yes [id number] 30mL Take 30 mL Univers 10 gram/15 2-29 by mouth 3 ity of mL oral 00:00: (three) [place] solution 00 times Medical daily as Branch needed for Constipati on. sucralfate 2021-02 Yes [id number] 1g Take 1 U nivers 1 gram 2-29 tablet by ity of tablet 00:00: mouth [place] 00 before Medical meals and Branch at bedtime. lactulose 2021-02 Yes [id number] 30mL Take 30 mL Univers 10 gram/15 2-29 by mouth 3 ity of mL oral 00:00: (three) [place] solution 00 times Medical daily as Branch needed for Constipati on. sucralfate 2021-02 Yes [id number] 1g Take 1 U nivers 1 gram 2-29 tablet by ity of tablet 00:00: mouth [place] 00 before Medical meals and Branch at bedtime. lactulose 2021-02 Yes [id number] 30mL Take 30 mL Univers 10 gram/15 2-29 by mouth 3 ity of mL oral 00:00: (three) [place] solution 00 times Medical daily as Branch needed for Constipati on. sucralfate 2021-02 Yes [id number] 1g Take 1 U nivers 1 gram 2-29 tablet by ity of tablet 00:00: mouth [place] 00 before Medical meals and Branch at bedtime. lactulose 2021-02 Yes [id number] 30mL Take 30 mL Univers 10 gram/15 2-29 by mouth 3 ity of mL oral 00:00: (three) [place] solution 00 times Medical daily as Branch needed for Constipati on. sucralfate 2021-02 Yes [id number] 1g Take 1 U nivers 1 gram 2-29 tablet by ity of tablet 00:00: mouth [place] 00 before Medical meals and Branch at bedtime. lactulose 2021-02 Yes [id number] 30mL Take 30 mL Univers 10 gram/15 2-29 by mouth 3 ity of mL oral 00:00: (three) [place] solution 00 times Medical daily as Branch needed for Constipati on. sucralfate 2021-02 Yes [id number] 1g Take 1 U nivers 1 gram 2-29 tablet by ity of tablet 00:00: mouth [place] 00 before Medical meals and Branch at bedtime. lactulose 2021-02 Yes [id number] 30mL Take 30 mL Univers 10 gram/15 2-29 by mouth 3 ity of mL oral 00:00: (three) [place] solution 00 times Medical daily as Branch needed for Constipati on. sucralfate 2021-02 Yes [id number] 1g Take 1 U nivers 1 gram 2-29 tablet by ity of tablet 00:00: mouth [place] 00 before Medical meals and Branch at bedtime. lactulose 2021-02 Yes [id number] 30mL Take 30 mL Univers 10 gram/15 2-29 by mouth 3 ity of mL oral 00:00: (three) [place] solution 00 times Medical daily as Branch needed for Constipati on. sucralfate 2021-02 Yes [id number] 1g Take 1 U nivers 1 gram 2-29 tablet by ity of tablet 00:00: mouth [place] 00 before Medical meals and Branch at bedtime. lactulose 2021-02 Yes [id number] 30mL Take 30 mL Univers 10 gram/15 2-29 by mouth 3 ity of mL oral 00:00: (three) [place] solution 00 times Medical daily as Branch needed for Constipati on. sucralfate 2021-02 Yes [id number] 1g Take 1 U nivers 1 gram 2-29 tablet by ity of tablet 00:00: mouth [place] 00 before Medical meals and Branch at bedtime. lactulose 2021-02 Yes [id number] 30mL Take 30 mL Univers 10 gram/15 2-29 by mouth 3 ity of mL oral 00:00: (three) [place] solution 00 times Medical daily as Branch needed for Constipati on. sucralfate 2021-02 Yes [id number] 1g Take 1 U nivers 1 gram 2-29 tablet by ity of tablet 00:00: mouth [place] 00 before Medical meals and Branch at bedtime. lactulose 2021-02 Yes [id number] 30mL Take 30 mL Univers 10 gram/15 2-29 by mouth 3 ity of mL oral 00:00: (three) [place] solution 00 times Medical daily as Branch needed for Constipati on. sucralfate 2021-02 Yes [id number] 1g Take 1 U nivers 1 gram 2-29 tablet by ity of tablet 00:00: mouth [place] 00 before Medical meals and Branch at bedtime. lactulose 2021-02 Yes [id number] 30mL Take 30 mL Univers 10 gram/15 2-29 by mouth 3 ity of mL oral 00:00: (three) [place] solution 00 times Medical daily as Branch needed for Constipati on. sucralfate 2021-02 Yes [id number] 1g Take 1 U nivers 1 gram 2-29 tablet by ity of tablet 00:00: mouth [place] 00 before Medical meals and Branch at bedtime. lactulose 2021-02 Yes [id number] 30mL Take 30 mL Univers 10 gram/15 2-29 by mouth 3 ity of mL oral 00:00: (three) [place] solution 00 times Medical daily as Branch needed for Constipati on. sucralfate 2021-02 Yes [id number] 1g Take 1 U nivers 1 gram 2-29 tablet by ity of tablet 00:00: mouth [place] 00 before Medical meals and Branch at bedtime. lactulose 2021-02 Yes [id number] 30mL Take 30 mL Univers 10 gram/15 2-29 by mouth 3 ity of mL oral 00:00: (three) [place] solution 00 times Medical daily as Branch needed for Constipati on. sucralfate 2021-02 Yes [id number] 1g Take 1 U nivers 1 gram 2-29 tablet by ity of tablet 00:00: mouth [place] 00 before Medical meals and Branch at bedtime. lactulose 2021-02 Yes [id number] 30mL Take 30 mL Univers 10 gram/15 2-29 by mouth 3 ity of mL oral 00:00: (three) [place] solution 00 times Medical daily as Branch needed for Constipati on. sucralfate 2021-02 Yes [id number] 1g Take 1 U nivers 1 gram 2-29 tablet by ity of tablet 00:00: mouth [place] 00 before Medical meals and Branch at bedtime. lactulose 2021-02 Yes [id number] 30mL Take 30 mL Univers 10 gram/15 2-29 by mouth 3 ity of mL oral 00:00: (three) [place] solution 00 times Medical daily as Branch needed for Constipati on. sucralfate 2021-02 Yes [id number] 1g Take 1 U nivers 1 gram 2-29 tablet by ity of tablet 00:00: mouth [place] 00 before Medical meals and Branch at bedtime. lactulose 2021-02 Yes [id number] 30mL Take 30 mL Univers 10 gram/15 2-29 by mouth 3 ity of mL oral 00:00: (three) [place] solution 00 times Medical daily as Branch needed for Constipati on. sucralfate 2021-02 Yes [id number] 1g Take 1 U nivers 1 gram 2-29 tablet by ity of tablet 00:00: mouth [place] 00 before Medical meals and Branch at bedtime. lactulose 2021-02 Yes [id number] 30mL Take 30 mL Univers 10 gram/15 2-29 by mouth 3 ity of mL oral 00:00: (three) [place] solution 00 times Medical daily as Branch needed for Constipati on. sucralfate 2021-02 Yes [id number] 1g Take 1 U nivers 1 gram 2-29 tablet by ity of tablet 00:00: mouth [place] 00 before Medical meals and Branch at bedtime. lactulose 2021-02 Yes [id number] 30mL Take 30 mL Univers 10 gram/15 2-29 by mouth 3 ity of mL oral 00:00: (three) [place] solution 00 times Medical daily as Branch needed for Constipati on. sucralfate 2021-02 Yes [id number] 1g Take 1 U nivers 1 gram 2-29 tablet by ity of tablet 00:00: mouth [place] 00 before Medical meals and Branch at bedtime. lactulose 2021-02 Yes [id number] 30mL Take 30 mL Univers 10 gram/15 2-29 by mouth 3 ity of mL oral 00:00: (three) [place] solution 00 times Medical daily as Branch needed for Constipati on. sucralfate 2021-02 Yes [id number] 1g Take 1 U nivers 1 gram 2-29 tablet by ity of tablet 00:00: mouth [place] 00 before Medical meals and Branch at bedtime. lactulose 2021-02 Yes [id number] 30mL Take 30 mL Univers 10 gram/15 2-29 by mouth 3 ity of mL oral 00:00: (three) [place] solution 00 times Medical daily as Branch needed for Constipati on. sucralfate 2021-02 Yes [id number] 1g Take 1 U nivers 1 gram 2-29 tablet by ity of tablet 00:00: mouth [place] 00 before Medical meals and Branch at bedtime. lactulose 2021-02 Yes [id number] 30mL Take 30 mL Univers 10 gram/15 2-29 by mouth 3 ity of mL oral 00:00: (three) [place] solution 00 times Medical daily as Branch needed for Constipati on. sucralfate 2021-02 Yes [id number] 1g Take 1 U nivers 1 gram 2-29 tablet by ity of tablet 00:00: mouth [place] 00 before Medical meals and Branch at bedtime. lactulose 2021-02 Yes [id number] 30mL Take 30 mL Univers 10 gram/15 2-29 by mouth 3 ity of mL oral 00:00: (three) [place] solution 00 times Medical daily as Branch needed for Constipati on. sucralfate 2021-02 Yes [id number] 1g Take 1 U nivers 1 gram 2-29 tablet by ity of tablet 00:00: mouth [place] 00 before Medical meals and Branch at bedtime. lactulose 2021-02 Yes [id number] 30mL Take 30 mL Univers 10 gram/15 2-29 by mouth 3 ity of mL oral 00:00: (three) [place] solution 00 times Medical daily as Branch needed for Constipati on. sucralfate 2021-02 Yes [id number] 1g Take 1 U nivers 1 gram 2-29 tablet by ity of tablet 00:00: mouth [place] 00 before Medical meals and Branch at bedtime. lactulose 2021-02 Yes [id number] 30mL Take 30 mL Univers 10 gram/15 2-29 by mouth 3 ity of mL oral 00:00: (three) [place] solution 00 times Medical daily as Branch needed for Constipati on. sucralfate 2021-02 Yes [id number] 1g Take 1 U nivers 1 gram 2-29 tablet by ity of tablet 00:00: mouth [place] 00 before Medical meals and Branch at bedtime. lactulose 2021-02 Yes [id number] 30mL Take 30 mL Univers 10 gram/15 2-29 by mouth 3 ity of mL oral 00:00: (three) [place] solution 00 times Medical daily as Branch needed for Constipati on. sucralfate 2021-02 Yes [id number] 1g Take 1 U nivers 1 gram 2-29 tablet by ity of tablet 00:00: mouth [place] 00 before Medical meals and Branch at bedtime. metoprolol 2021-0 Yes 25mg Take 25 mg [...] by ity of tablet 00:00: mouth 3 [place] (three) Medical times Branch daily as needed. [...] as needed. metoprolol 2021-0 Yes 25mg Take 1 Unive rs tartrate 25 4-08 tablet by ity of mg tablet 00:00: mouth [place] 00 the Medical morning Branch and 1 tablet in the evening. butalbital- 2021-0 Yes Univer s acetaminoph 4-08 ity of en-caff 00:00: [place] 50-325-40 00 Medical mg tablet Branch ALPRAZolam 2-0 Yes .25mg Take 1 Univ ers 0.25 mg 4-08 tablet by ity of tablet 00:00: mouth 3 (three) Medical times Branch daily as needed. metoprolol 2021-0 Yes 25mg Take 1 Unive rs tartrate 25 4-08 tablet by ity of mg tablet 00:00: mouth [place] 00 the Medical morning Branch and 1 tablet in the evening. butalbital- 2021-0 Yes Univer s acetaminoph 4-08 ity of en-caff 00:00: [place] 50-325-40 00 Medical mg tablet Branch ALPRAZolam 2021-0 Yes .25mg Take 1 Univ ers 0.25 mg 4-08 tablet by ity of tablet 00:00: mouth 3 (three) Medical times Branch daily as needed. butalbital- 2021-0 Yes Univer s acetaminoph 4-08 ity of en-caff 00:00: [place] 50-325-40 00 Medical mg tablet Branch ALPRAZolam 2021-0 Yes .25mg Take 1 Univ ers 0.25 mg 4-08 tablet by ity of tablet 00:00: mouth 3 (three) Medical times Branch daily as needed. butalbital- 2021-0 Yes Univer s acetaminoph 4-08 ity of en-caff 00:00: [place] 50-325-40 00 Medical mg tablet Branch ALPRAZolam 2-0 Yes .25mg Take 1 Univ ers 0.25 mg 4-08 tablet by ity of tablet 00:00: mouth 3 (three) Medical times Branch daily as needed. butalbital- 2021-0 Yes Univer s acetaminoph 4-08 ity of en-caff 00:00: [place] 50-325-40 00 Medical mg tablet Branch ALPRAZolam 2-0 Yes .25mg Take 1 [facility] 0.25 mg 4-08 tablet by it[facility] of tablet 00:00: mouth 3 (three) Medical times Branch daily as needed. butalbital- 2021-0 Yes [facility] acetaminoph 4-08 ity of en-caff 00:00: [place] 50-325-40 00 Medical mg tablet Branch ALPRAZolam 2-0 Yes .25mg Take 1 [facility] 0.25 mg 4-08 tablet by ity of tablet 00:00: mouth 3 (three) Medical times Branch daily as needed. butalbital- 2021-0 Yes [facility] acetaminoph 4-08 ity of en-caff 00:00: [place] 50-325-40 00 Medical mg tablet Branch ALPRAZolam 2-0 Yes .25mg Take 1 [facility] 0.25 mg 4-08 tablet by ity of tablet 00:00: mouth 3 (three) Medical times Branch daily as needed. butalbital- 2021-0 Yes [facility] acetaminoph 4-08 ity of en-caff 00:00: [place] 50-325-40 00 Medical mg tablet Branch ALPRAZolam 2-0 Yes .25mg Take 1 [facility] 0.25 mg 4-08 tablet by ity of tablet 00:00: mouth 3 (three) Medical times Branch daily as needed. butalbital- 2021-0 Yes [facility] acetaminoph 4-08 ity of en-caff 00:00: [place] 50-325-40 00 Medical mg tablet Branch ALPRAZolam 2-0 Yes .25mg Take 1 [facility] 0.25 mg 4-08 tablet by ity of tablet 00:00: mouth 3 (three) Medical times Branch daily as needed. butalbital- 2021-0 Yes [facility] acetaminoph 4-08 ity of en-caff 00:00: [place] 50-325-40 00 Medical mg tablet Branch ALPRAZolam 2-0 Yes .25mg Take 1 [facility] 0.25 mg 4-08 tablet by ity of tablet 00:00: mouth 3 (three) Medical times Branch daily as needed. butalbital- 2021-0 Yes [facility] acetaminoph 4-08 ity of en-caff 00:00: [place] 50-325-40 00 Medical mg tablet Branch ALPRAZolam 2021-0 Yes .25mg Take 1 [facility] 0.25 mg 4-08 tablet by ity of tablet 00:00: mouth 3 (three) Medical times Branch daily as needed. butalbital- 2021-0 Yes [facility] acetaminoph 4-08 ity of en-caff 00:00: [place] 50-325-40 00 Medical mg tablet Branch ALPRAZolam 2021-0 Yes .25mg Take 1 [facility] 0.25 mg 4-08 tablet by ity of tablet 00:00: mouth 3 (three) Medical times Branch daily as needed. butalbital- 2021-0 Yes [facility] acetaminoph 4-08 ity of en-caff 00:00: [place] 50-325-40 00 Medical mg tablet Branch ALPRAZolam 2021-0 Yes .25mg Take 1 [facility] 0.25 mg 4-08 tablet by ity of tablet 00:00: mouth 3 (three) Medical times Branch daily as needed. butalbital- 2021-0 Yes [facility] acetaminoph 4-08 ity of en-caff 00:00: [place] 50-325-40 00 Medical mg tablet Branch ALPRAZolam 2021-0 Yes .25mg Take 1 [facility] 0.25 mg 4-08 tablet by ity of tablet 00:00: mouth 3 (three) Medical times Branch daily as needed. butalbital- 2021-0 Yes [facility] acetaminoph 4-08 ity of en-caff 00:00: [place] 50-325-40 00 Medical mg tablet Branch ALPRAZolam 2-0 Yes .25mg Take 1 [facility] 0.25 mg 4-08 tablet by ity of tablet 00:00: mouth 3 (three) Medical times Branch daily as needed. butalbital- 2021-0 Yes [facility] acetaminoph 4-08 ity of en-caff 00:00: [place] 50-325-40 00 Medical mg tablet Branch ALPRAZolam 2-0 Yes .25mg Take 1 [facility] 0.25 mg 4-08 tablet by ity of tablet 00:00: mouth 3 (three) Medical times Branch daily as needed. butalbital- 2021-0 Yes [facility] acetaminoph 4-08 ity of en-caff 00:00: [place] 50-325-40 00 Medical mg tablet Branch ALPRAZolam 2021-0 Yes .25mg Take 1 [facility] 0.25 mg 4-08 tablet by ity of tablet 00:00: mouth 3 (three) Medical times Branch daily as needed. butalbital- 2021-0 Yes [facility] acetaminoph 4-08 ity of en-caff 00:00: [place] 50-325-40 00 Medical mg tablet Branch ALPRAZolam 2021-0 Yes .25mg Take 1 [facility] 0.25 mg 4-08 tablet by ity of tablet 00:00: mouth 3 (three) Medical times Branch daily as needed. butalbital- 2021-0 Yes [facility] acetaminoph 4-08 ity of en-caff 00:00: [place] 50-325-40 00 Medical mg tablet Branch ALPRAZolam 2021-0 Yes .25mg Take 1 [facility] 0.25 mg 4-08 tablet by ity of tablet 00:00: mouth 3 (three) Medical times Branch daily as needed. butalbital- 2021-0 Yes [facility] acetaminoph 4-08 ity of en-caff 00:00: [place] 50-325-40 00 Medical mg tablet Branch ALPRAZolam 2021-0 Yes .25mg Take 1 [facility] 0.25 mg 4-08 tablet by ity of tablet 00:00: mouth 3 (three) Medical times Branch daily as needed. butalbital- 2021-0 Yes [facility] acetaminoph 4-08 ity of en-caff 00:00: [place] 50-325-40 00 Medical mg tablet Branch ALPRAZolam 2021-0 Yes .25mg Take 1 [facility] 0.25 mg 4-08 tablet by ity of tablet 00:00: mouth 3 (three) Medical times Branch daily as needed. butalbital- 2021-0 Yes [facility] s acetaminoph 4-08 ity of en-caff 00:00: [place] 50-325-40 00 Medical mg tablet Branch ALPRAZolam 2021-0 Yes .25mg Take 1 [facility] 0.25 mg 4-08 tablet by ity of tablet 00:00: mouth 3 (three) Medical times Branch daily as needed. butalbital- 2021-0 Yes [facility] s acetaminoph 4-08 ity of en-caff 00:00: [place] 50-325-40 00 Medical mg tablet Branch ALPRAZolam 2021-0 Yes .25mg Take 1 [facility] 0.25 mg 4-08 tablet by ity of tablet 00:00: mouth 3 (three) Medical times Branch daily as needed. butalbital- 2021-0 Yes [facility] acetaminoph 4-08 ity of en-caff 00:00: [place] 50-325-40 00 Medical mg tablet Branch ALPRAZolam 2021-0 Yes .25mg Take 1 [facility] 0.25 mg 4-08 tablet by ity of tablet 00:00: mouth 3 (three) Medical times Branch daily as needed. metoprolol 2021-0 2023- No 25mg Take 1 [facility] tartrate 25 4-08 05-19 tablet by it y of mg tablet 00:00: 00:00 mouth in [place] [facility] 00 :00 the Medical morning Branch and 1 tablet in the evening. metoprolol 2021-0 2023- No 25mg Take 1 [facility] tartrate 25 4-08 05-19 tablet by it y of mg tablet 00:00: 00:00 mouth in [place] [facility] 00 :00 the Medical morning Branch and 1 tablet in the evening. metoprolol 2021-0 3- No 25mg Take 1 [facility] tartrate 25 4-08 05-19 tablet by it y of mg tablet 00:00: 00:00 mouth in [place] [facility] 00 :00 the Medical morning Branch and 1 tablet in the evening. metFORMIN 2021-0 Yes [id number] 1000mg Take 1 [facility] 1,000 mg 2-10 tablet by ity of tablet 00:00: mouth 2 [place] 00 (two) Medical times Branch daily with meals. atorvastati 2021-0 Yes [id number] 40mg Take 1 [facility] n (LIPITOR) 2-10 tablet by ity of 40 mg 00:00: mouth at [place] tablet 00 bedtime. Medical Branch metFORMIN 2021-0 Yes [id number] 1000mg Take 1 [facility] 1,000 mg 2-10 tablet by ity of tablet 00:00: mouth 2 [place] 00 (two) Medical times Branch daily with meals. atorvastati 0 Yes [id number] 40mg Take 1 [facility] n (LIPITOR) 2-10 tablet by ity of 40 mg 00:00: mouth at [place] tablet 00 bedtime. Medical Branch metFORMIN 0 Yes [id number] 1000mg Take 1 [facility] 1,000 mg 2-10 tablet by ity of tablet 00:00: mouth 2 [place] (two) Medical times Branch daily with meals. atorvastati 0 Yes [id number] 40mg Take 1 [facility] n (LIPITOR) 2-10 tablet by ity of 40 mg 00:00: mouth at [place] tablet 00 bedtime. Medical Branch metFORMIN Yes [id number] 1000mg Take 1 [facility] 1,000 mg 2-10 tablet by ity of tablet 00:00: mouth 2 (two) Medical times Branch daily with meals. atorvastati Yes [id number] 40mg Take 1 [facility] n (LIPITOR) 2-10 tablet by ity of 40 mg 00:00: mouth at [place] tablet 00 bedtime. Medical Branch metFORMIN Yes [id number] 1000mg Take 1 [facility] 1,000 mg 2-10 tablet by ity of tablet 00:00: mouth 2 (two) Medical times Branch daily with meals. atorvastati Yes [id number] 40mg Take 1 [facility] n (LIPITOR) 2-10 tablet by ity of 40 mg 00:00: mouth at [place] tablet 00 bedtime. Medical Branch metFORMIN Yes [id number] 1000mg Take 1 [facility] 1,000 mg 2-10 tablet by ity of tablet 00:00: mouth 2 (two) Medical times Branch daily with meals. atorvastati Yes [id number] 40mg Take 1 [facility] n (LIPITOR) 2-10 tablet by ity of 40 mg 00:00: mouth at [place] tablet 00 bedtime. Medical Branch metFORMIN Yes [id number] 1000mg Take 1 [facility] 1,000 mg 2-10 tablet by ity of tablet 00:00: mouth 2 [place] 00 (two) Medical times Branch daily with meals. atorvastati Yes [id number] 40mg Take 1 [facility] n (LIPITOR) 2-10 tablet by ity of 40 mg 00:00: mouth at [place] tablet 00 bedtime. Medical Branch metFORMIN 2021-0 Yes [id number] 1000mg Take 1 [facility] 1,000 mg 2-10 tablet by ity of tablet 00:00: mouth 2 (two) Medical times Branch daily with meals. atorvastati 0 Yes [id number] 40mg Take 1 [facility] n (LIPITOR) 2-10 tablet by ity of 40 mg 00:00: mouth at [place] tablet 00 bedtime. Medical Branch metFORMIN 0 Yes [id number] 1000mg Take 1 [facility] 1,000 mg 2-10 tablet by ity of tablet 00:00: mouth 2 (two) Medical times Branch daily with meals. atorvastati 0 Yes [id number] 40mg Take 1 [facility] n (LIPITOR) 2-10 tablet by ity of 40 mg 00:00: mouth at [place] tablet 00 bedtime. Medical Branch metFORMIN 0 Yes [id number] 1000mg Take 1 [facility] 1,000 mg 2-10 tablet by ity of tablet 00:00: mouth 2 (two) Medical times Branch daily with meals. atorvastati 0 Yes [id number] 40mg Take 1 [facility] n (LIPITOR) 2-10 tablet by ity of 40 mg 00:00: mouth at [place] tablet 00 bedtime. Medical Branch metFORMIN 0 Yes [id number] 1000mg Take 1 [facility] 1,000 mg 2-10 tablet by ity of tablet 00:00: mouth 2 (two) Medical times Branch daily with meals. atorvastati 0 Yes [id number] 40mg Take 1 [facility] n (LIPITOR) 2-10 tablet by ity of 40 mg 00:00: mouth at [place] tablet 00 bedtime. Medical Branch metFORMIN 0 Yes [id number] 1000mg Take 1 [facility] 1,000 mg 2-10 tablet by ity of tablet 00:00: mouth 2 [place] (two) Medical times Branch daily with meals. atorvastati 2021-0 Yes [id number] 40mg Take 1 [facility] n (LIPITOR) 2-10 tablet by ity of 40 mg 00:00: mouth at [place] tablet 00 bedtime. Medical Branch metFORMIN 2021-0 Yes [id number] 1000mg Take 1 [facility] 1,000 mg 2-10 tablet by ity of tablet 00:00: mouth 2 [place] 00 (two) Medical times Branch daily with meals. atorvastati 0 Yes [id number] 40mg Take 1 [facility] n (LIPITOR) 2-10 tablet by ity of 40 mg 00:00: mouth at [place] tablet 00 bedtime. Medical Branch metFORMIN 0 Yes [id number] 1000mg Take 1 [facility] 1,000 mg 2-10 tablet by ity of tablet 00:00: mouth 2 (two) Medical times Branch daily with meals. atorvastati 0 Yes [id number] 40mg Take 1 [facility] n (LIPITOR) 2-10 tablet by ity of 40 mg 00:00: mouth at [place] tablet 00 bedtime. Medical Branch metFORMIN Yes [id number] 1000mg Take 1 [facility] 1,000 mg 2-10 tablet by ity of tablet 00:00: mouth 2 (two) Medical times Branch daily with meals. atorvastati Yes [id number] 40mg Take 1 [facility] n (LIPITOR) 2-10 tablet by ity of 40 mg 00:00: mouth at [place] tablet 00 bedtime. Medical Branch metFORMIN Yes [id number] 1000mg Take 1 [facility] 1,000 mg 2-10 tablet by ity of tablet 00:00: mouth (two) Medical times Branch daily with meals. atorvastati 0 Yes [id number] 40mg Take 1 [facility] n (LIPITOR) 2-10 tablet by ity of 40 mg 00:00: mouth at [place] tablet 00 bedtime. Medical Branch metFORMIN 0 Yes [id number] 1000mg Take 1 [facility] 1,000 mg 2-10 tablet by ity of tablet 00:00: mouth 2 (two) Medical times Branch daily with meals. atorvastati 0 Yes [id number] 40mg Take 1 [facility] n (LIPITOR) 2-10 tablet by ity of 40 mg 00:00: mouth at [place] tablet 00 bedtime. Medical Branch metFORMIN 2021-0 Yes [id number] 1000mg Take 1 [facility] 1,000 mg 2-10 tablet by ity of tablet 00:00: mouth 2 (two) Medical times Branch daily with meals. atorvastati 0 Yes [id number] 40mg Take 1 [facility] n (LIPITOR) 2-10 tablet by ity of 40 mg 00:00: mouth at [place] tablet 00 bedtime. Medical Branch metFORMIN 2021-0 Yes [id number] 1000mg Take 1 [facility] 1,000 mg 2-10 tablet by ity of tablet 00:00: mouth 2 [place] (two) Medical times Branch daily with meals. atorvastati 0 Yes [id number] 40mg Take 1 [facility] n (LIPITOR) 2-10 tablet by ity of 40 mg 00:00: mouth at [place] tablet 00 bedtime. Medical Branch metFORMIN 0 Yes [id number] 1000mg Take 1 [facility] 1,000 mg 2-10 tablet by ity of tablet 00:00: mouth 2 (two) Medical times Branch daily with meals. atorvastati 0 Yes [id number] 40mg Take 1 [facility] n (LIPITOR) 2-10 tablet by ity of 40 mg 00:00: mouth at [place] tablet 00 bedtime. Medical Branch metFORMIN Yes [id number] 1000mg Take 1 [facility] 1,000 mg 2-10 tablet by ity of tablet 00:00: mouth 2 (two) Medical times Branch daily with meals. atorvastati 0 Yes [id number] 40mg Take 1 [facility] n (LIPITOR) 2-10 tablet by ity of 40 mg 00:00: mouth at [place] tablet 00 bedtime. Medical Branch metFORMIN 2021-0 Yes [id number] 1000mg Take 1 [facility] 1,000 mg 2-10 tablet by ity of tablet 00:00: mouth 2 (two) Medical times Branch daily with meals. atorvastati 2021-0 Yes [id number] 40mg Take 1 [facility] n (LIPITOR) 2-10 tablet by ity of 40 mg 00:00: mouth at [place] tablet 00 bedtime. Medical Branch metFORMIN 2021-0 Yes [id number] 1000mg Take 1 [facility] 1,000 mg 2-10 tablet by ity of tablet 00:00: mouth 2 [place] (two) Medical times Branch daily with meals. atorvastati 2021-0 Yes [id number] 40mg Take 1 [facility] n (LIPITOR) 2-10 tablet by ity of 40 mg 00:00: mouth at [place] tablet 00 bedtime. Medical Branch metFORMIN 2021-0 Yes [id number] 1000mg Take 1 [facility] 1,000 mg 2-10 tablet by ity of tablet 00:00: mouth 2 (two) Medical times Branch daily with meals. atorvastati 2021-0 Yes [id number] 40mg Take 1 [facility] n (LIPITOR) 2-10 tablet by ity of 40 mg 00:00: mouth at [place] tablet 00 bedtime. Medical Branch metFORMIN 2021-0 Yes [id number] 1000mg Take 1 [facility] 1,000 mg 2-10 tablet by ity of tablet 00:00: mouth 2 (two) Medical times Branch daily with meals. atorvastati 0 Yes [id number] 40mg Take 1 [facility] n (LIPITOR) 2-10 tablet by ity of 40 mg 00:00: mouth at [place] tablet 00 bedtime. Medical Branch metFORMIN 2021-0 Yes [id number] 1000mg Take 1 [facility] 1,000 mg 2-10 tablet by ity of tablet 00:00: mouth 2 (two) Medical times Branch daily with meals. atorvastati 2021-0 Yes [id number] 40mg Take 1 [facility] n (LIPITOR) 2-10 tablet by ity of 40 mg 00:00: mouth at [place] tablet 00 bedtime. Medical Branch metFORMIN 2021-0 Yes [id number] 1000mg Take 1 [facility] 1,000 mg 2-10 tablet by ity of tablet 00:00: mouth 2 [place] (two) Medical times Branch daily with meals. atorvastati 0 Yes [id number] 40mg Take 1 [facility] n (LIPITOR) 2-10 tablet by ity of 40 mg 00:00: mouth at [place] tablet 00 bedtime. Medical Branch OXcarbazepi 2021-0 Yes Un[facility] s ne 300 mg 2-07 ity of tablet 00:00: 00 Medical Branch QUEtiapine 2021-0 Yes [facility] 200 mg 2-07 ity of tablet 00:00: 00 Medical Branch OXcarbazepi 2021-0 Yes [facility] s ne 300 mg 2-07 ity of tablet 00:00: 00 Medical Branch QUEtiapine 2-0 Yes [facility] 200 mg 2-07 ity of tablet 00:00: Medical Branch OXcarbazepi 2-0 Yes [facility] ne 300 mg 2-07 ity of tablet 00:00: Medical Branch QUEtiapine 2022-0 Yes [facility] 200 mg 2-07 ity of tablet 00:00: [place] 00 Medical Branch OXcarbazepi 2022-0 Yes Un[facility] s ne 300 mg 2-07 ity of tablet 00:00: [place] [address] Medical Branch QUEtiapine 2022-0 Yes [facility] 200 mg 2-07 ity of tablet 00:00: [place] [address] Medical Branch OXcarbazepi 2022-0 Yes Un[facility] s ne 300 mg 2-07 ity of tablet 00:00: [place] [address] Medical Branch QUEtiapine 2022-0 Yes [facility] 200 mg 2-07 ity of tablet 00:00: [place] [address] Medical Branch OXcarbazepi 2022-0 Yes Un[facility] s ne 300 mg 2-07 ity of tablet 00:00: [place] [address] Medical Branch QUEtiapine 2022-0 Yes [facility] 200 mg 2-07 ity of tablet 00:00: [place] [address] Medical Branch OXcarbazepi 2022-0 Yes Un[facility] s ne 300 mg 2-07 ity of tablet 00:00: [place] [address] Medical Branch QUEtiapine 2022-0 Yes [facility] 200 mg 2-07 ity of tablet 00:00: [place] [address] Medical Branch OXcarbazepi 2022-0 Yes Un[facility] s ne 300 mg 2-07 ity of tablet 00:00: [place] [address] Medical Branch QUEtiapine 2022-0 Yes [facility] 200 mg 2-07 ity of tablet 00:00: [place] [address] Medical Branch OXcarbazepi 2022-0 Yes Un[facility] s ne 300 mg 2-07 ity of tablet 00:00: [place] [address] Medical Branch QUEtiapine 2022-0 Yes [facility] 200 mg 2-07 ity of tablet 00:00: [place] [address] Medical Branch OXcarbazepi 2022-0 Yes Un[facility] s ne 300 mg 2-07 ity of tablet 00:00: [place] [address] Medical Branch QUEtiapine 2022-0 Yes [facility] 200 mg 2-07 ity of tablet 00:00: [place] [address] Medical Branch OXcarbazepi 2022-0 Yes Un[facility] s ne 300 mg 2-07 ity of tablet 00:00: [place] [address] Medical Branch QUEtiapine 2022-0 Yes [facility] 200 mg 2-07 ity of tablet 00:00: [place] [address] Medical Branch OXcarbazepi 2022-0 Yes Un[facility] s ne 300 mg 2-07 ity of tablet 00:00: [place] [address] Medical Branch QUEtiapine 2022-0 Yes [facility] 200 mg 2-07 ity of tablet 00:00: [place] [address] Medical Branch OXcarbazepi 2022-0 Yes Un[facility] s ne 300 mg 2-07 ity of tablet 00:00: [place] [address] Medical Branch QUEtiapine 2022-0 Yes [facility] 200 mg 2-07 ity of tablet 00:00: [place] [address] Medical Branch OXcarbazepi 2022-0 Yes Un[facility] s ne 300 mg 2-07 ity of tablet 00:00: [place] [address] Medical Branch QUEtiapine 2022-0 Yes [facility] 200 mg 2-07 ity of tablet 00:00: [place] [address] Medical Branch OXcarbazepi 2022-0 Yes Un[facility] s ne 300 mg 2-07 ity of tablet 00:00: [place] [address] Medical Branch QUEtiapine 2022-0 Yes [facility] 200 mg 2-07 ity of tablet 00:00: [place] [address] Medical Branch OXcarbazepi 2022-0 Yes Un[facility] s ne 300 mg 2-07 ity of tablet 00:00: [place] [address] Medical Branch QUEtiapine 2022-0 Yes [facility] 200 mg 2-07 ity of tablet 00:00: [place] [address] Medical Branch OXcarbazepi 2022-0 Yes Un[facility] s ne 300 mg 2-07 ity of tablet 00:00: [place] [address] Medical Branch QUEtiapine 2022-0 Yes [facility] 200 mg 2-07 ity of tablet 00:00: [place] [address] Medical Branch OXcarbazepi 2022-0 Yes Un[facility] s ne 300 mg 2-07 ity of tablet 00:00: [place] [address] Medical Branch QUEtiapine 2022-0 Yes [facility] 200 mg 2-07 ity of tablet 00:00: [place] [address] Medical Branch OXcarbazepi 2022-0 Yes Un[facility] s ne 300 mg 2-07 ity of tablet 00:00: [place] [address] Medical Branch QUEtiapine 2022-0 Yes [facility] 200 mg 2-07 ity of tablet 00:00: [place] [address] Medical Branch OXcarbazepi 2022-0 Yes Un[facility] s ne 300 mg 2-07 ity of tablet 00:00: [place] [address] Medical Branch QUEtiapine 2022-0 Yes [facility] 200 mg 2-07 ity of tablet 00:00: [place] [address] Medical Branch OXcarbazepi 2022-0 Yes Un[facility] s ne 300 mg 2-07 ity of tablet 00:00: [place] [facility] Branch QUEtiapine 2022-0 Yes [facility] 200 mg 2-07 ity of tablet 00:00: [place] [facility] Branch OXcarbazepi 2022-0 Yes Un[facility] s ne 300 mg 2-07 ity of tablet 00:00: [place] [facility] Branch QUEtiapine 2022-0 Yes [facility] 200 mg 2-07 ity of tablet 00:00: [place] [facility] Branch OXcarbazepi 2022-0 Yes Un[facility] s ne 300 mg 2-07 ity of tablet 00:00: [place] [facility] Branch QUEtiapine 2022-0 Yes [facility] 200 mg 2-07 ity of tablet 00:00: [place] [facility] Branch OXcarbazepi 2022-0 Yes Un[facility] s ne 300 mg 2-07 ity of tablet 00:00: [place] [facility] Branch QUEtiapine 2022-0 Yes [facility] 200 mg 2-07 ity of tablet 00:00: [place] [facility] Branch OXcarbazepi 2022-0 Yes Un[facility] s ne 300 mg 2-07 ity of tablet 00:00: [place] [facility] Branch QUEtiapine 2022-0 Yes [facility] 200 mg 2-07 ity of tablet 00:00: [place] [facility] Branch OXcarbazepi 2022-0 Yes Un[facility] s ne 300 mg 2-07 ity of tablet 00:00: [place] [facility] QUEtiapine 2022-0 Yes [facility] 200 mg 2-07 ity of tablet 00:00: [place] [facility] OXcarbazepi 2022-0 Yes Un[facility] s ne 300 mg 2-07 ity of tablet 00:00: [place] [facility] QUEtiapine 2022-0 Yes [facility] 200 mg 2-07 ity of tablet 00:00: [place] [...] ity of gel 00:00: TO THE [place] AFFECTED Medical AREA FOUR Branch TIMES DAILY FOR 25 DAYS HYDROcodone 2021-0 Yes 1{tbl} Take 1 Un ines -acetaminop 1-25 tablet by ity of hen 7.5-325 00:00: mouth 2 [place] [facility] mg per 00 (two) Medical tablet times Branch daily. Diclofenac 0 Yes APPLY Un[facility] s Sodium 1 % 1-25 TOPICALLY ity of gel 00:00: TO THE [place] AFFECTED Medical AREA FOUR Branch TIMES DAILY FOR 25 DAYS HYDROcodone 2021-0 Yes 1{tbl} Take 1 Un ines -acetaminop 1-25 tablet by ity of hen 7.5-325 00:00: mouth 2 [place] mg per 00 (two) Medical tablet times Branch daily. Diclofenac 0 Yes APPLY Un[facility] s Sodium 1 % 1-25 TOPICALLY ity of gel 00:00: TO THE [place] AFFECTED Medical AREA FOUR Branch TIMES DAILY FOR 25 DAYS HYDROcodone 2021-0 Yes 1{tbl} Take 1 Un ines -acetaminop 1-25 tablet by ity of hen 7.5-325 00:00: mouth in [place] mg per 00 the Medical tablet morning Branch and 1 tablet in the evening. Diclofenac 0 Yes APPLY Un[facility] s Sodium 1 % 1-25 TOPICALLY ity of gel 00:00: TO THE [place] AFFECTED Medical AREA FOUR Branch TIMES DAILY FOR 25 DAYS HYDROcodone 2021-0 Yes 1{tbl} Take 1 Un ines -acetaminop 1-25 tablet by ity of hen 7.5-325 00:00: mouth in [place] mg per 00 the Medical tablet morning Branch and 1 tablet in the evening. Diclofenac 0 Yes APPLY Un[facility] s Sodium 1 % 1-25 TOPICALLY ity of gel 00:00: TO THE [place] AFFECTED Medical AREA FOUR Branch TIMES DAILY FOR 25 DAYS HYDROcodone 2021-0 Yes 1{tbl} Take 1 Un ines -acetaminop 1-25 tablet by ity of hen 7.5-325 00:00: mouth in [place] mg per 00 the Medical tablet morning Branch and 1 tablet in the evening. Diclofenac 2021-0 Yes APPLY [facility] s Sodium 1 % 1-25 TOPICALLY ity of gel 00:00: TO THE [place] AFFECTED Medical AREA FOUR Branch TIMES DAILY FOR 25 DAYS HYDROcodone 2021-0 Yes 1{tbl} Take 1 Un ines -acetaminop 1-25 tablet by ity of hen 7.5-325 00:00: mouth in [place] mg per 00 the Medical tablet morning Branch and 1 tablet in the evening. Diclofenac 2021-0 Yes APPLY Un[facility] s Sodium 1 % 1-25 TOPICALLY ity of gel 00:00: TO THE [place] AFFECTED Medical AREA FOUR Branch TIMES DAILY FOR 25 DAYS HYDROcodone 2021-0 Yes 1{tbl} Take 1 Un ines -acetaminop 1-25 tablet by ity of hen 7.5-325 00:00: mouth in [place] mg per 00 the Medical tablet morning Branch and 1 tablet in the evening. Diclofenac 2021-0 Yes APPLY [facility] s Sodium 1 % 1-25 TOPICALLY ity of gel 00:00: TO THE [place] AFFECTED Medical AREA FOUR Branch TIMES DAILY FOR 25 DAYS HYDROcodone 2021-0 Yes 1{tbl} Take 1 Un ines -acetaminop 1-25 tablet by ity of hen 7.5-325 00:00: mouth in [place] mg per 00 the Medical tablet morning Branch and 1 tablet in the evening. Diclofenac 2021-0 Yes APPLY [facility] s Sodium 1 % 1-25 TOPICALLY ity of gel 00:00: TO THE [place] AFFECTED Medical AREA FOUR Branch TIMES DAILY FOR 25 DAYS HYDROcodone 2021-0 Yes 1{tbl} Take 1 Un ines -acetaminop 1-25 tablet by ity of hen 7.5-325 00:00: mouth in [place] mg per 00 the Medical tablet morning Branch and 1 tablet in the evening. Diclofenac 2021-0 Yes APPLY Un[facility] s Sodium 1 % 1-25 TOPICALLY ity of gel 00:00: TO THE [place] AFFECTED Medical AREA FOUR Branch TIMES DAILY FOR 25 DAYS HYDROcodone 2021-0 Yes 1{tbl} Take 1 Un ines -acetaminop 1-25 tablet by ity of hen 7.5-325 00:00: mouth in [place] mg per 00 the Medical tablet morning Branch and 1 tablet in the evening. Diclofenac 2021-0 Yes APPLY [facility] s Sodium 1 % 1-25 TOPICALLY ity of gel 00:00: TO THE [place] AFFECTED Medical AREA FOUR Branch TIMES DAILY FOR 25 DAYS HYDROcodone 2021-0 Yes 1{tbl} Take 1 Un ines -acetaminop 1-25 tablet by ity of hen 7.5-325 00:00: mouth in [place] mg per 00 the Medical tablet morning Branch and 1 tablet in the evening. Diclofenac 2021-0 Yes APPLY Univer s Sodium 1 % 1-25 TOPICALLY ity of gel 00:00: TO THE [place] AFFECTED Medical AREA FOUR Branch TIMES DAILY FOR 25 DAYS HYDROcodone 2021-0 Yes 1{tbl} Take 1 Un ines -acetaminop 1-25 tablet by ity of hen 7.5-325 00:00: mouth in [place] mg per 00 the Medical tablet morning Branch and 1 tablet in the evening. Diclofenac 2021-0 Yes APPLY Un[facility] s Sodium 1 % 1-25 TOPICALLY ity of gel 00:00: TO THE [place] AFFECTED Medical AREA FOUR Branch TIMES DAILY FOR 25 DAYS HYDROcodone 0 Yes 1{tbl} Take 1 Un ines -acetaminop 1-25 tablet by ity of hen 7.5-325 00:00: mouth in [place] mg per 00 the Medical tablet morning Branch and 1 tablet in the evening. Diclofenac 0 Yes APPLY Un[facility] s Sodium 1 % 1-25 TOPICALLY ity of gel 00:00: TO THE [place] AFFECTED Medical AREA FOUR Branch TIMES DAILY FOR 25 DAYS HYDROcodone 0 Yes 1{tbl} Take 1 Un ines -acetaminop 1-25 tablet by ity of hen 7.5-325 00:00: mouth in [place] mg per 00 the Medical tablet morning Branch and 1 tablet in the evening. Diclofenac 2021-0 Yes APPLY [facility] s Sodium 1 % 1-25 TOPICALLY ity of gel 00:00: TO THE [place] AFFECTED Medical AREA FOUR Branch TIMES DAILY FOR 25 DAYS HYDROcodone 2021-0 Yes 1{tbl} Take 1 Un ines -acetaminop 1-25 tablet by ity of hen 7.5-325 00:00: mouth in [place] mg per 00 the Medical tablet morning Branch and 1 tablet in the evening. Diclofenac 2021-0 Yes APPLY Un[facility] s Sodium 1 % 1-25 TOPICALLY ity of gel 00:00: TO THE [place] AFFECTED Medical AREA FOUR Branch TIMES DAILY FOR 25 DAYS HYDROcodone 2021-0 Yes 1{tbl} Take 1 Un ines -acetaminop 1-25 tablet by ity of hen 7.5-325 00:00: mouth in [place] mg per 00 the Medical tablet morning Branch and 1 tablet in the evening. Diclofenac 2021-0 Yes APPLY [facility] Sodium 1 % 1-25 TOPICALLY ity of gel 00:00: TO THE [place] [facility] Medical AREA FOUR Branch TIMES DAILY FOR 25 DAYS HYDROcodone 2021-0 Yes 1{tbl} Take 1 Un ines -acetaminop 1-25 tablet by ity of hen 7.5-325 00:00: mouth in [place] mg per 00 the Medical tablet morning Branch and 1 tablet in the evening. Diclofenac 2021-0 Yes APPLY [facility] Sodium 1 % 1-25 TOPICALLY ity of gel 00:00: TO THE [place] [facility] Medical AREA FOUR Branch TIMES DAILY FOR 25 DAYS HYDROcodone 2021-0 Yes 1{tbl} Take 1 Un ines -acetaminop 1-25 tablet by ity of hen 7.5-325 00:00: mouth in [place] mg per 00 the Medical tablet morning Branch and 1 tablet in the evening. Diclofenac 0 Yes APPLY Un[facility] s Sodium 1 % 1-25 TOPICALLY ity of gel 00:00: TO THE [place] [facility] Medical AREA FOUR Branch TIMES DAILY FOR 25 DAYS HYDROcodone 2021-0 Yes 1{tbl} Take 1 Un ines -acetaminop 1-25 tablet by ity of hen 7.5-325 00:00: mouth in [place] mg per 00 the Medical tablet morning Branch and 1 tablet in the evening. Diclofenac 2021-0 Yes APPLY [facility] s Sodium 1 % 1-25 TOPICALLY ity of gel 00:00: TO THE [place] [facility] Medical AREA FOUR Branch TIMES DAILY FOR 25 DAYS HYDROcodone 2021-0 Yes 1{tbl} Take 1 Un ines -acetaminop 1-25 tablet by ity of hen 7.5-325 00:00: mouth in [place] mg per 00 the Medical tablet morning Branch and 1 tablet in the evening. Diclofenac 2021-0 Yes APPLY [facility] Sodium 1 % 1-25 TOPICALLY ity of gel 00:00: TO THE [place] [facility] Medical AREA FOUR Branch TIMES DAILY FOR 25 DAYS HYDROcodone 2021-0 Yes 1{tbl} Take 1 Un ines -acetaminop 1-25 tablet by ity of hen 7.5-325 00:00: mouth in [place] mg per 00 the Medical tablet morning Branch and 1 tablet in the evening. Diclofenac 2021-0 Yes APPLY [facility] s Sodium 1 % 1-25 TOPICALLY ity of gel 00:00: TO THE [place] [facility] Medical AREA FOUR Branch TIMES DAILY FOR 25 DAYS HYDROcodone 2021-0 Yes 1{tbl} Take 1 Un ines -acetaminop 1-25 tablet by ity of hen 7.5-325 00:00: mouth in [place] mg per 00 the Medical tablet morning Branch and 1 tablet in the evening. Diclofenac 2021-0 Yes APPLY [facility] s Sodium 1 % 1-25 TOPICALLY ity of gel 00:00: TO THE [place] [facility] Medical AREA FOUR Branch TIMES DAILY FOR 25 DAYS HYDROcodone 2021-0 Yes 1{tbl} Take 1 Un ines -acetaminop 1-25 tablet by ity of hen 7.5-325 00:00: mouth in [place] mg per 00 the Medical tablet morning Branch and 1 tablet in the evening. Diclofenac 0 Yes APPLY [facility] s Sodium 1 % 1-25 TOPICALLY ity of gel 00:00: TO THE [place] [facility] Medical AREA FOUR Branch TIMES DAILY FOR 25 DAYS HYDROcodone 2021-0 Yes 1{tbl} Take 1 Un ines -acetaminop 1-25 tablet by ity of hen 7.5-325 00:00: mouth in [place] mg per 00 the Medical tablet morning Branch and 1 tablet in the evening. Diclofenac 2021-0 Yes APPLY [facility] s Sodium 1 % 1-25 TOPICALLY ity of gel 00:00: TO THE [place] [facility] Medical AREA FOUR Branch TIMES DAILY FOR 25 DAYS HYDROcodone 2021-0 Yes 1{tbl} Take 1 Un ines -acetaminop 1-25 tablet by ity of hen 7.5-325 00:00: mouth in [place] mg per 00 the Medical tablet morning Branch and 1 tablet in the evening. Diclofenac 2021-0 Yes APPLY [facility] Sodium 1 % 1-25 TOPICALLY ity of gel 00:00: TO THE [place] [facility] Medical AREA FOUR Branch TIMES DAILY FOR 25 DAYS HYDROcodone 2021-0 Yes 1{tbl} Take 1 Un ines -acetaminop 1-25 tablet by ity of hen 7.5-325 00:00: mouth in [place] mg per 00 the Medical tablet morning Branch and 1 tablet in the evening. amLODIPine Yes TAKE 1 Unive rs 10 [...] FOR Medical HYPERTENSI Branch ON amLODIPine 0 2022- No TAKE 1 Univ ers 10 mg 1-21 05-19 TABLET BY ity of tablet 00:00: 00:00 MOUTH [place] 00 :00 DAILY FOR Medical HYPERTENSI Branch ON amLODIPine 0 2022- No TAKE 1 Univ ers 10 mg 1-21 05-19 TABLET BY ity of tablet 00:00: 00:00 MOUTH [place] 00 :00 DAILY FOR Medical HYPERTENSI Branch ON amLODIPine 0 2022- No TAKE 1 Univ ers 10 mg 1-21 05-19 TABLET BY ity of tablet 00:00: 00:00 MOUTH [place] 00 :00 DAILY FOR Medical HYPERTENSI Branch ON cyclobenzap [...] FOR Branch 14 DAYS triamcinolo 2020-02 Yes [id number] Apply to [facility] [place] [facility] ne 0-14 area(s) 2 ity of acetonide 00:00: (two) [place] 0.1 % cream 00 times Medical daily. Branch triamcinolo 2020-02 Yes [id number] Apply to [facility] ne 0-14 area(s) 2 ity of acetonide 00:00: (two) [place] 0.1 % cream 00 times Medical daily. James triamcinelizabeth 2020- Yes [id number] Apply to [facility] ne 0-14 area(s) 2 ity of acetonide 00:00: (two) [place] 0.1 % cream 00 times Medical daily. Branch naziaamcinelizabeth 2020- Yes [id number] Apply to [facility] ne 0-14 area(s) 2 ity of acetonide 00:00: (two) [place] 0.1 % cream 00 times Medical daily. Branch triamcinelizabeth 2020- Yes [id number] Apply to [facility] ne 0-14 area(s) 2 ity of acetonide 00:00: (two) [place] 0.1 % cream 00 times Medical daily. James mandujanoamcinelizabeth 2020- Yes [id number] Apply to [facility] ne 0-14 area(s) 2 ity of acetonide 00:00: (two) [place] 0.1 % cream 00 times Medical daily. James mandujanoamcinelizabeth 2020- Yes [id number] Apply to [facility] ne 0-14 area(s) 2 ity of acetonide 00:00: (two) [place] 0.1 % cream 00 times Medical daily. James triamcinelizabeth 2020- Yes [id number] Apply to [facility] ne 0-14 area(s) 2 ity of acetonide 00:00: (two) [place] 0.1 % cream 00 times Medical daily. James triamcinelizabeth 2020- Yes [id number] Apply to [facility] ne 0-14 area(s) 2 ity of acetonide 00:00: (two) [place] 0.1 % cream 00 times Medical daily. Branch triamcinolo 2020- Yes [id number] Apply to [facility] ne 0-14 area(s) 2 ity of acetonide 00:00: (two) [place] 0.1 % cream 00 times Medical daily. Branch triamcinolo 2020- Yes [id number] Apply to [facility] ne 0-14 area(s) 2 ity of acetonide 00:00: (two) [place] 0.1 % cream 00 times Medical daily. Branch triamcinelizabeth 2020- Yes [id number] Apply to [facility] ne 0-14 area(s) 2 ity of acetonide 00:00: (two) [place] 0.1 % cream 00 times Medical daily. Branch triamcinolo 2020- Yes [id number] Apply to [facility] ne 0-14 area(s) 2 ity of acetonide 00:00: (two) [place] 0.1 % cream 00 times Medical daily. Branch triamcinolo 2020- Yes [id number] Apply to [facility] ne 0-14 area(s) 2 ity of acetonide 00:00: (two) [place] 0.1 % cream 00 times Medical daily. Branch triamcinolo 2020- Yes [id number] Apply to [facility] ne 0-14 area(s) 2 ity of acetonide 00:00: (two) [place] 0.1 % cream 00 times Medical daily. Branch triamcinolo 2020- Yes [id number] Apply to [facility] ne 0-14 area(s) 2 ity of acetonide 00:00: (two) [place] 0.1 % cream 00 times Medical daily. Branch triamcinelizabeth 2020- Yes [id number] Apply to [facility] ne 0-14 area(s) 2 ity of acetonide 00:00: (two) [place] 0.1 % cream 00 times Medical daily. Branch triamcinelizabeth 2020- Yes [id number] Apply to [facility] ne 0-14 area(s) 2 ity of acetonide 00:00: (two) [place] 0.1 % cream 00 times Medical daily. Branch triamcinolo 2020- Yes [id number] Apply to [facility] ne 0-14 area(s) 2 ity of acetonide 00:00: (two) [place] 0.1 % cream 00 times Medical daily. Branch triamcinolo 2020- Yes [id number] Apply to [facility] ne 0-14 area(s) 2 ity of acetonide 00:00: (two) [place] 0.1 % cream 00 times Medical daily. Branch triamcinolo 2020- Yes [id number] Apply to [facility] ne 0-14 area(s) 2 ity of acetonide 00:00: (two) [place] 0.1 % cream 00 times Medical daily. Branch triamcinolo 2020- Yes [id number] Apply to [facility] ne 0-14 area(s) 2 ity of acetonide 00:00: (two) [place] 0.1 % cream 00 times Medical daily. James triamcinolo 2020-02 Yes [id number] Apply to [facility] ne 0-14 area(s) 2 ity of acetonide 00:00: (two) [place] 0.1 % cream 00 times Medical daily. [place] triamcinolo 2020-02 Yes [id number] Apply to Univers ne 0-14 area(s) 2 ity of acetonide 00:00: (two) [place] 0.1 % cream 00 times Medical daily. James triamcinolo 2020-02 Yes [id number] Apply to Univers ne 0-14 area(s) 2 ity of acetonide 00:00: (two) [place] 0.1 % cream 00 times Medical daily. James triamcinolo 2020-02 Yes [id number] Apply to [facility] ne 0-14 area(s) 2 ity of acetonide 00:00: (two) [place] 0.1 % cream 00 times Medical daily. James triamcinolo 2020-02 Yes [id number] Apply to [facility] ne 0-14 area(s) 2 ity of acetonide 00:00: (two) [place] 0.1 % cream 00 times Medical daily. Branch triamterene 2020-02 Yes [id number] 1{capsu Take 1 [facility] -hydrochlor 0-12 le} capsule by it y of othiazide 00:00: mouth [place] 37.5-25 mg 00 every Medical per capsule morning. Chip ch triamterene 2020-02 Yes [id number] 1{capsu Take 1 Univers -hydrochlor 0-12 le} capsule by it y of othiazide 00:00: mouth [place] 37.5-25 mg 00 every Medical per capsule morning. Chip ch triamterene 2020-02 Yes [id number] 1{capsu Take 1 Univers -hydrochlor 0-12 le} capsule by it y of othiazide 00:00: mouth [place] 37.5-25 mg 00 every Medical per capsule morning. Chip ch triamterene 2020-02 Yes [id number] 1{capsu Take 1 Univers -hydrochlor 0-12 le} capsule by it y of othiazide 00:00: mouth [place] 37.5-25 mg 00 every Medical per capsule morning. Chip ch triamterene 2020-02 Yes [id number] 1{capsu Take 1 Univers -hydrochlor 0-12 le} capsule by it y of othiazide 00:00: mouth [place] 37.5-25 mg 00 every Medical per capsule morning. Bran ch triamterene 2020-02 Yes [id number] 1{capsu Take 1 Univers -hydrochlor 0-12 le} capsule by it y of othiazide 00:00: mouth [place] 37.5-25 mg 00 every Medical per capsule morning. Bran ch triamterene 2020-02 Yes [id number] 1{capsu Take 1 Univers -hydrochlor 0-12 le} capsule by it y of othiazide 00:00: mouth [place] 37.5-25 mg 00 every Medical per capsule morning. Bran ch triamterene 2020-02 Yes [id number] 1{capsu Take 1 Univers -hydrochlor 0-12 le} capsule by it y of othiazide 00:00: mouth [place] 37.5-25 mg 00 every Medical per capsule morning. Bran ch triamterene 2020-02 Yes [id number] 1{capsu Take 1 Univers -hydrochlor 0-12 le} capsule by it y of othiazide 00:00: mouth [place] 37.5-25 mg 00 every Medical per capsule morning. Bran ch triamterene 2020-02 Yes [id number] 1{capsu Take 1 [facility] -hydrochlor 0-12 le} capsule by it y of othiazide 00:00: mouth [place] 37.5-25 mg 00 every Medical per capsule morning. Bran ch triamterene 2020-02 Yes [id number] 1{capsu Take 1 Univers -hydrochlor 0-12 le} capsule by it y of othiazide 00:00: mouth [place] 37.5-25 mg 00 every Medical per capsule morning. Bran ch triamterene 2020-02 Yes [id number] 1{capsu Take 1 [facility] -hydrochlor 0-12 le} capsule by it y of othiazide 00:00: mouth [place] 37.5-25 mg 00 every Medical per capsule morning. Bran ch triamterene 2020-02 Yes [id number] 1{capsu Take 1 Univers -hydrochlor 0-12 le} capsule by it y of othiazide 00:00: mouth [place] 37.5-25 mg 00 every Medical per capsule morning. Bran ch triamterene 2020-02 Yes [id number] 1{capsu Take 1 Univers -hydrochlor 0-12 le} capsule by it y of othiazide 00:00: mouth [place] 37.5-25 mg 00 every Medical per capsule morning. Bran ch triamterene 2020-02 Yes [id number] 1{capsu Take 1 Univers -hydrochlor 0-12 le} capsule by it y of othiazide 00:00: mouth [place] 37.5-25 mg 00 every Medical per capsule morning. Bran ch triamterene 2020-02 Yes [id number] 1{capsu Take 1 Univers -hydrochlor 0-12 le} capsule by it y of othiazide 00:00: mouth [place] 37.5-25 mg 00 every Medical per capsule morning. Bran ch triamterene 2020-02 Yes [id number] 1{capsu Take 1 Univers -hydrochlor 0-12 le} capsule by it y of othiazide 00:00: mouth [place] 37.5-25 mg 00 every Medical per capsule morning. Bran ch triamterene 2020-02 Yes [id number] 1{capsu Take 1 Univers -hydrochlor 0-12 le} capsule by it y of othiazide 00:00: mouth [place] 37.5-25 mg 00 every Medical per capsule morning. Bran ch triamterene 2020-02 Yes [id number] 1{capsu Take 1 Univers -hydrochlor 0-12 le} capsule by it y of othiazide 00:00: mouth [place] 37.5-25 mg 00 every Medical per capsule morning. Bran ch triamterene 2020-02 Yes [id number] 1{capsu Take 1 Univers -hydrochlor 0-12 le} capsule by it y of othiazide 00:00: mouth [place] 37.5-25 mg 00 every Medical per capsule morning. Bran ch triamterene 2020-02 Yes [id number] 1{capsu Take 1 Univers -hydrochlor 0-12 le} capsule by it y of othiazide 00:00: mouth [place] 37.5-25 mg 00 every Medical per capsule morning. Bran ch triamterene 2020-02 Yes [id number] 1{capsu Take 1 Univers -hydrochlor 0-12 le} capsule by it y of othiazide 00:00: mouth [place] 37.5-25 mg 00 every Medical per capsule morning. Bran ch triamterene 2020-02 Yes [id number] 1{capsu Take 1 Univers -hydrochlor 0-12 le} capsule by it y of othiazide 00:00: mouth [place] 37.5-25 mg 00 every Medical per capsule morning. Chip dobbs triamterene 2020-02 Yes [id number] 1{capsu Take 1 Univers -hydrochlor 0-12 le} capsule by it y of othiazide 00:00: mouth [place] 37.5-25 mg 00 every Medical per capsule morning. Chip dobbs triamterene 2020-02 Yes [id number] 1{capsu Take 1 Univers -hydrochlor 0-12 le} capsule by it y of othiazide 00:00: mouth [place] 37.5-25 mg 00 every Medical per capsule morning. Chip dobbs triamterene 2020-02 Yes [id number] 1{capsu Take 1 Univers -hydrochlor 0-12 le} capsule by it y of othiazide 00:00: mouth [place] 37.5-25 mg 00 every Medical per capsule morning. Chip dobbs triamterene 2020-02 Yes [id number] 1{capsu Take 1 Univers -hydrochlor 0-12 le} capsule by it y of othiazide 00:00: mouth [place] 37.5-25 mg 00 every Medical per capsule morning. [facility] aspirin 81 Yes 81mg Take 81 mg U nivers mg chewable 9-28 by mouth ity of tablet 16:55: daily. [address] DULoxetine Yes 30mg Take 30 mg U nivers (CYMBALTA) 9-28 by mouth ity o f 30 mg 16:55: daily. [address] amitriptyli Yes 25mg Take 25 mg Univers ne 25 mg 9-28 by mouth ity of tablet 16:55: at bedtime [place] [address] as needed Medical for Branch Insomnia. DULoxetine Yes 60mg Take 60 mg U nivers (CYMBALTA) 9-28 by mouth ity o f 60 mg 16:55: daily. [address] aspirin 81 Yes 81mg Take 81 mg U nivers mg chewable 9-28 by mouth ity of tablet 16:55: daily. [address] DULoxetine Yes 30mg Take 30 mg U nivers (CYMBALTA) 9-28 by mouth ity o f 30 mg 16:55: daily. [place] [address] Medical Branch amitriptyli 0 Yes 25mg Take 25 mg Univers ne 25 mg 9-28 by mouth ity of tablet 16:55: at bedtime [place] [address] as needed Medical for Branch Insomnia. DULoxetine 2020-0 Yes 60mg Take 60 mg U nivers (CYMBALTA) 9-28 by mouth ity o f 60 mg 16:55: daily. [address] Branch aspirin 81 0 Yes 81mg Take 81 mg U nivers mg chewable 9-28 by mouth ity of tablet 16:55: daily. [place] [address] Medical Branch DULoxetine 0 Yes 30mg Take 30 mg U nivers (CYMBALTA) 9-28 by mouth ity o f 30 mg 16:55: daily. [address] amitriptyli 0 Yes 25mg Take 25 mg Univers ne 25 mg 9-28 by mouth ity of tablet 16:55: at bedtime [place] [address] as needed Medical for Branch Insomnia. DULoxetine 0 Yes 60mg Take 60 mg U nivers (CYMBALTA) 9-28 by mouth ity o f 60 mg 16:55: daily. [place] [address] Medical [place] aspirin 81 0 Yes 81mg Take 81 mg U nivers mg chewable 9-28 by mouth ity of tablet 16:55: daily. [place] [address] Medical [place] DULoxetine 0 Yes 30mg Take 30 mg U nivers (CYMBALTA) 9-28 by mouth ity o f 30 mg 16:55: daily. [address] amitriptyli 0 Yes 25mg Take 25 mg Univers ne 25 mg 9-28 by mouth ity of tablet 16:55: at bedtime [place] [address] as needed Medical for Branch Insomnia. DULoxetine 2020-0 Yes 60mg Take 60 mg U nivers (CYMBALTA) 9-28 by mouth ity o f 60 mg 16:55: daily. [address] Branch aspirin 81 0 Yes 81mg Take 81 mg U nivers mg chewable 9-28 by mouth ity of tablet 16:55: daily. [address] DULoxetine 2020-0 Yes 30mg Take 30 mg U nivers (CYMBALTA) 9-28 by mouth ity o f 30 mg 16:55: daily. [place] [address] Medical Branch amitriptyli 0 Yes 25mg Take 25 mg Univers ne 25 mg 9-28 by mouth ity of tablet 16:55: at bedtime [place] [address] as needed Medical for Branch Insomnia. DULoxetine 2020-0 Yes 60mg Take 60 mg U nivers (CYMBALTA) 9-28 by mouth ity o f 60 mg 16:55: daily. [address] Branch aspirin 81 0 Yes 81mg Take 81 mg U nivers mg chewable 9-28 by mouth ity of tablet 16:55: daily. [place] [address] Medical Branch DULoxetine 0 Yes 30mg Take 30 mg U nivers (CYMBALTA) 9-28 by mouth ity o f 30 mg 16:55: daily. [address] amitriptyli 0 Yes 25mg Take 25 mg Univers ne 25 mg 9-28 by mouth ity of tablet 16:55: at bedtime [place] [address] as needed Medical for Branch Insomnia. DULoxetine 0 Yes 60mg Take 60 mg U nivers (CYMBALTA) 9-28 by mouth ity o f 60 mg 16:55: daily. [place] [address] Medical [place] aspirin 81 0 Yes 81mg Take 81 mg U nivers mg chewable 9-28 by mouth ity of tablet 16:55: daily. [address] DULoxetine 0 Yes 30mg Take 30 mg U nivers (CYMBALTA) 9-28 by mouth ity o f 30 mg 16:55: daily. [address] amitriptyli 0 Yes 25mg Take 25 mg Univers ne 25 mg 9-28 by mouth ity of tablet 16:55: at bedtime [place] [address] as needed Medical for Branch Insomnia. DULoxetine 2020-0 Yes 60mg Take 60 mg U nivers (CYMBALTA) 9-28 by mouth ity o f 60 mg 16:55: daily. [address] Branch aspirin 81 0 Yes 81mg Take 81 mg U nivers mg chewable 9-28 by mouth ity of tablet 16:55: daily. [address] DULoxetine 2020-0 Yes 30mg Take 30 mg U nivers (CYMBALTA) 9-28 by mouth ity o f 30 mg 16:55: daily. [place] [address] Medical Branch amitriptyli 0 Yes 25mg Take 25 mg Univers ne 25 mg 9-28 by mouth ity of tablet 16:55: at bedtime [place] [address] as needed Medical for Branch Insomnia. DULoxetine 0 Yes 60mg Take 60 mg U nivers (CYMBALTA) 9-28 by mouth ity o f 60 mg 16:55: daily. [address] Branch aspirin 81 0 Yes 81mg Take 81 mg U nivers mg chewable 9-28 by mouth ity of tablet 16:55: daily. [place] [address] Medical Branch DULoxetine 0 Yes 30mg Take 30 mg U nivers (CYMBALTA) 9-28 by mouth ity o f 30 mg 16:55: daily. [address] amitriptyli 0 Yes 25mg Take 25 mg Univers ne 25 mg 9-28 by mouth ity of tablet 16:55: at bedtime [place] [address] as needed Medical for Branch Insomnia. DULoxetine 0 Yes 60mg Take 60 mg U nivers (CYMBALTA) 9-28 by mouth ity o f 60 mg 16:55: daily. [place] [address] Medical [place] aspirin 81 0 Yes 81mg Take 81 mg U nivers mg chewable 9-28 by mouth ity of tablet 16:55: daily. [address] DULoxetine 0 Yes 30mg Take 30 mg U nivers (CYMBALTA) 9-28 by mouth ity o f 30 mg 16:55: daily. [address] amitriptyli 0 Yes 25mg Take 25 mg Univers ne 25 mg 9-28 by mouth ity of tablet 16:55: at bedtime [place] [address] as needed Medical for Branch Insomnia. DULoxetine 2020-0 Yes 60mg Take 60 mg U nivers (CYMBALTA) 9-28 by mouth ity o f 60 mg 16:55: daily. [address] Branch aspirin 81 0 Yes 81mg Take 81 mg U nivers mg chewable 9-28 by mouth ity of tablet 16:55: daily. [address] DULoxetine 2020-0 Yes 30mg Take 30 mg U nivers (CYMBALTA) 9-28 by mouth ity o f 30 mg 16:55: daily. [place] [address] Medical Branch amitriptyli Yes 25mg Take 25 mg Univers ne 25 mg 9-28 by mouth ity of tablet 16:55: at bedtime [place] [address] as needed Medical for Branch Insomnia. DULoxetine 0 Yes 60mg Take 60 mg U nivers (CYMBALTA) 9-28 by mouth ity o f 60 mg 16:55: daily. [place] [address] Medical Branch aspirin 81 0 Yes 81mg Take 81 mg U nivers mg chewable 9-28 by mouth ity of tablet 16:55: daily. [place] [address] Medical Branch DULoxetine 0 Yes 30mg Take 30 mg U nivers (CYMBALTA) 9-28 by mouth ity o f 30 mg 16:55: daily. [address] amitriptyli Yes 25mg Take 25 mg Univers ne 25 mg 9-28 by mouth ity of tablet 16:55: at bedtime [place] [address] as needed Medical for Branch Insomnia. DULoxetine 0 Yes 60mg Take 60 mg U nivers (CYMBALTA) 9-28 by mouth ity o f 60 mg 16:55: daily. [place] [address] Medical [place] aspirin 81 Yes 81mg Take 81 mg U nivers mg chewable 9-28 by mouth ity of tablet 16:55: daily. [address] DULoxetine 0 Yes 30mg Take 30 mg U nivers (CYMBALTA) 9-28 by mouth ity o f 30 mg 16:55: daily. [address] amitriptyli 0 Yes 25mg Take 25 mg Univers ne 25 mg 9-28 by mouth ity of tablet 16:55: at bedtime [place] [address] as needed Medical for Branch Insomnia. DULoxetine 0 Yes 60mg Take 60 mg U nivers (CYMBALTA) 9-28 by mouth ity o f 60 mg 16:55: daily. [place] [address] Medical Branch aspirin 81 0 Yes 81mg Take 81 mg U nivers mg chewable 9-28 by mouth ity of tablet 16:55: daily. [address] DULoxetine 0 Yes 30mg Take 30 mg U nivers (CYMBALTA) 9-28 by mouth ity o f 30 mg 16:55: daily. [facility] Medical Branch amitriptyli Yes 25mg Take 25 mg Univers ne 25 mg 11-22 by mouth ity of tablet 16:55: at bedtime [place] [address] as needed Medical for Branch Insomnia. DULoxetine 0 Yes 60mg Take 60 mg U nivers (CYMBALTA) - by mouth ity o f 60 mg 16:55: daily. [facility] 38 Medical Branch aspirin 81 0 Yes 81mg Take 81 mg U nivers mg chewable 11-22 by mouth ity of tablet 16:55: daily. [place] [address] Medical Branch DULoxetine 0 Yes 30mg Take 30 mg U nivers (CYMBALTA) 11-22 by mouth ity o f 30 mg 16:55: daily. [facility] 38 Medical Branch amitriptyli Yes 25mg Take 25 mg Univers ne 25 mg 11-22 by mouth ity of tablet 16:55: at bedtime [place] [address] as needed Medical for Branch Insomnia. DULoxetine Yes 60mg Take 60 mg U nivers (CYMBALTA) 11-22 by mouth ity o f 60 mg 16:55: daily. [place] [address] Medical Branch Ibuprofen Ibuprofen No TID Ibuprofen 600 MG 600 MG 05-23 600 MG 00:00: 00 diltiazem 0 Yes [id number] 360mg Take 1 U nivers 360 mg 24 3-03 capsule by ity of hr capsule 00:00: mouth 00 daily. Medical Branch diltiazem Yes [id number] 360mg Take 1 U nivers 360 mg 24 3-03 capsule by ity of hr capsule 00:00: mouth 00 daily. Medical Branch diltiazem 0 Yes [id number] 360mg Take 1 U nivers 360 mg 24 3-03 capsule by ity of hr capsule 00:00: mouth [place] 00 daily. Medical Branch diltiazem 0 Yes [id number] 360mg Take 1 U nivers 360 mg 24 3-03 capsule by ity of hr capsule 00:00: mouth [place] 00 daily. Medical Branch diltiazem 0 Yes [id number] 360mg Take 1 U nivers 360 mg 24 3-03 capsule by ity of hr capsule 00:00: mouth [place] 00 daily. Medical Branch diltiazem 2020-2022- No [id number] 360mg Take 1 [facility] 360 mg 24 04-27 capsule by ity of hr capsule 00:00: 00:00 mouth [place] 00 :00 daily. Medical Branch diltiazem 2020-0 2022- No [id number] 360mg Take 1 [facility] 360 mg 24 04-27 capsule by ity of hr capsule 00:00: 00:00 mouth [place] 00 :00 daily. Medical Branch diltiazem 2022- No [id number] 360mg Take 1 [facility] 360 mg 24 04-27 capsule by ity of hr capsule 00:00: 00:00 mouth [place] 00 :00 daily. Medical Branch nitroglycer 2019- Yes [id number] .4mg Place 1 Univers in 0.4 mg 0-27 tablet ity of sublingual 00:00: under the [place] tablet 00 tongue Medical every 5 Branch (five) minutes as needed for Chest pain. pantoprazol 2020- Yes [id number] 40mg Take 1 Univers e 40 mg EC 0-27 tablet by ity of tablet 00:00: mouth [place] 00 daily. Medical Branch nitroglycer 2019- Yes [id number] .4mg Place 1 Univers in 0.4 mg 0-27 tablet ity of sublingual 00:00: under the [place] tablet 00 tongue Medical every 5 Branch (five) minutes as needed for Chest pain. pantoprazol 2020- Yes [id number] 40mg Take 1 Univers e 40 mg EC 0-27 tablet by ity of tablet 00:00: mouth [place] 00 daily. Medical Branch nitroglycer 2019- Yes [id number] .4mg Place 1 Univers in 0.4 mg 0-27 tablet ity of sublingual 00:00: under the [place] tablet 00 tongue Medical every 5 Branch (five) minutes as needed for Chest pain. pantoprazol 2020- Yes [id number] 40mg Take 1 Univers e 40 mg EC 0-27 tablet by ity of tablet 00:00: mouth [place] 00 daily. Medical Branch nitroglycer 2019- Yes [id number] .4mg Place 1 Univers in 0.4 mg 0-27 tablet ity of sublingual 00:00: under the [place] tablet 00 tongue Medical every 5 Branch (five) minutes as needed for Chest pain. pantoprazol 2020- Yes [id number] 40mg Take 1 Univers e 40 mg EC 0-27 tablet by ity of tablet 00:00: mouth [place] 00 daily. Medical Branch nitroglycer 2019- Yes [id number] .4mg Place 1 [facility] in 0.4 mg 0-27 tablet ity of sublingual 00:00: under the [place] tablet 00 tongue Medical every 5 Branch (five) minutes as needed for Chest pain. pantoprazol 2019- Yes [id number] 40mg Take 1 Univers e 40 mg EC 0-27 tablet by ity of tablet 00:00: mouth [place] 00 daily. Medical Branch nitroglycer 2019- Yes [id number] .4mg Place 1 Univers in 0.4 mg 0-27 tablet ity of sublingual 00:00: under the [place] tablet 00 tongue Medical every 5 Branch (five) minutes as needed for Chest pain. pantoprazol 2019- Yes [id number] 40mg Take 1 Univers e 40 mg EC 0-27 tablet by ity of tablet 00:00: mouth [place] 00 daily. Medical Branch nitroglycer 2019- Yes [id number] .4mg Place 1 Univers in 0.4 mg 0-27 tablet ity of sublingual 00:00: under the [place] tablet 00 tongue Medical every 5 Branch (five) minutes as needed for Chest pain. pantoprazol 2019- Yes [id number] 40mg Take 1 [facility] e 40 mg EC 0-27 tablet by ity of tablet 00:00: mouth [place] 00 daily. Medical Branch nitroglycer 2019- Yes [id number] .4mg Place 1 Univers in 0.4 mg 0-27 tablet ity of sublingual 00:00: under the [place] tablet 00 tongue Medical every 5 Branch (five) minutes as needed for Chest pain. pantoprazol 2019- Yes [id number] 40mg Take 1 [facility] e 40 mg EC 0-27 tablet by ity of tablet 00:00: mouth [place] 00 daily. Medical Branch nitroglycer 2019- Yes [id number] .4mg Place 1 Univers in 0.4 mg 0-27 tablet ity of sublingual 00:00: under the [place] tablet 00 tongue Medical every 5 Branch (five) minutes as needed for Chest pain. pantoprazol 2019- Yes [id number] 40mg Take 1 [facility] e 40 mg EC 0-27 tablet by ity of tablet 00:00: mouth [place] 00 daily. Medical Branch nitroglycer 2020- Yes [id number] .4mg Place 1 [facility] in 0.4 mg 0-27 tablet ity of sublingual 00:00: under the [place] tablet 00 tongue Medical every 5 Branch (five) minutes as needed for Chest pain. pantoprazol 2019- Yes [id number] 40mg Take 1 [facility] e 40 mg EC 0-27 tablet by ity of tablet 00:00: mouth [place] 00 daily. Medical Branch nitroglycer 2019- Yes [id number] .4mg Place 1 [facility] in 0.4 mg 0-27 tablet ity of sublingual 00:00: under the [place] tablet 00 tongue Medical every 5 Branch (five) minutes as needed for Chest pain. pantoprazol 2019- Yes [id number] 40mg Take 1 [facility] e 40 mg EC 0-27 tablet by ity of tablet 00:00: mouth [place] 00 daily. Medical Branch nitroglycer 2019- Yes [id number] .4mg Place 1 [facility] in 0.4 mg 0-27 tablet ity of sublingual 00:00: under the [place] tablet 00 tongue Medical every 5 Branch (five) minutes as needed for Chest pain. pantoprazol 2019- Yes [id number] 40mg Take 1 [facility] e 40 mg EC 0-27 tablet by ity of tablet 00:00: mouth [place] 00 daily. Medical Branch nitroglycer 2019- Yes [id number] .4mg Place 1 [facility] in 0.4 mg 0-27 tablet ity of sublingual 00:00: under the [place] tablet 00 tongue Medical every 5 Branch (five) minutes as needed for Chest pain. pantoprazol 2019- Yes [id number] 40mg Take 1 [facility] e 40 mg EC 0-27 tablet by ity of tablet 00:00: mouth [place] 00 daily. Medical Branch nitroglycer 2019- Yes [id number] .4mg Place 1 [facility] in 0.4 mg 0-27 tablet ity of sublingual 00:00: under the [place] tablet 00 tongue Medical every 5 Branch (five) minutes as needed for Chest pain. pantoprazol 2019- Yes [id number] 40mg Take 1 [facility] e 40 mg EC 0-27 tablet by ity of tablet 00:00: mouth [place] 00 daily. Medical Branch nitroglycer 2019- Yes [id number] .4mg Place 1 [facility] in 0.4 mg 0-27 tablet ity of sublingual 00:00: under the [place] tablet 00 tongue Medical every 5 Branch (five) minutes as needed for Chest pain. pantoprazol 2020- Yes [id number] 40mg Take 1 [facility] e 40 mg EC 0-27 tablet by ity of tablet 00:00: mouth [place] 00 daily. Medical Branch nitroglycer 2019- Yes [id number] .4mg Place 1 [facility] in 0.4 mg 0-27 tablet ity of sublingual 00:00: under the [place] tablet 00 tongue Medical every 5 Branch (five) minutes as needed for Chest pain. pantoprazol 2019- Yes [id number] 40mg Take 1 [facility] e 40 mg EC 0-27 tablet by ity of tablet 00:00: mouth [place] 00 daily. Medical Branch nitroglycer 2019- Yes [id number] .4mg Place 1 [facility] in 0.4 mg 0-27 tablet ity of sublingual 00:00: under the [place] tablet 00 tongue Medical every 5 Branch (five) minutes as needed for Chest pain. pantoprazol 2019- Yes [id number] 40mg Take 1 [facility] e 40 mg EC 0-27 tablet by ity of tablet 00:00: mouth [place] 00 daily. Medical Branch nitroglycer 2019- Yes [id number] .4mg Place 1 [facility] in 0.4 mg 0-27 tablet ity of sublingual 00:00: under the [place] tablet 00 tongue Medical every 5 Branch (five) minutes as needed for Chest pain. pantoprazol 2019- Yes [id number] 40mg Take 1 [facility] e 40 mg EC 0-27 tablet by ity of tablet 00:00: mouth [place] 00 daily. Medical Branch nitroglycer 2019- Yes [id number] .4mg Place 1 [facility] in 0.4 mg 0-27 tablet ity of sublingual 00:00: under the [place] tablet 00 tongue Medical every 5 Branch (five) minutes as needed for Chest pain. pantoprazol 2019- Yes [id number] 40mg Take 1 [facility] e 40 mg EC 0-27 tablet by ity of tablet 00:00: mouth [place] 00 daily. Medical Branch nitroglycer 2019- Yes [id number] .4mg Place 1 [facility] in 0.4 mg 0-27 tablet ity of sublingual 00:00: under the [place] tablet 00 tongue Medical every 5 Branch (five) minutes as needed for Chest pain. pantoprazol 2020- Yes [id number] 40mg Take 1 [facility] e 40 mg EC 0-27 tablet by ity of tablet 00:00: mouth [place] 00 daily. Medical Branch nitroglycer 2019- Yes [id number] .4mg Place 1 [facility] in 0.4 mg 0-27 tablet ity of sublingual 00:00: under the [place] tablet 00 tongue Medical every 5 Branch (five) minutes as needed for Chest pain. pantoprazol 2019- Yes [id number] 40mg Take 1 [facility] e 40 mg EC 0-27 tablet by ity of tablet 00:00: mouth [place] 00 daily. Medical Branch nitroglycer 2019- Yes [id number] .4mg Place 1 [facility] in 0.4 mg 0-27 tablet ity of sublingual 00:00: under the [place] tablet 00 tongue Medical every 5 Branch (five) minutes as needed for Chest pain. pantoprazol 2019- Yes [id number] 40mg Take 1 [facility] e 40 mg EC 0-27 tablet by ity of tablet 00:00: mouth [place] 00 daily. Medical Branch nitroglycer 2019- Yes [id number] .4mg Place 1 [facility] in 0.4 mg 0-27 tablet ity of sublingual 00:00: under the [place] tablet 00 tongue Medical every 5 Branch (five) minutes as needed for Chest pain. pantoprazol 2019- Yes [id number] 40mg Take 1 [facility] e 40 mg EC 0-27 tablet by ity of tablet 00:00: mouth [place] 00 daily. Medical Branch nitroglycer 2019- Yes [id number] .4mg Place 1 [facility] in 0.4 mg 0-27 tablet ity of sublingual 00:00: under the [place] tablet 00 tongue Medical every 5 Branch (five) minutes as needed for Chest pain. pantoprazol 2019- Yes [id number] 40mg Take 1 [facility] e 40 mg EC 0-27 tablet by ity of tablet 00:00: mouth [place] 00 daily. Medical Branch nitroglycer 2019- Yes [id number] .4mg Place 1 [facility] in 0.4 mg 0-27 tablet ity of sublingual 00:00: under the [place] tablet 00 tongue Medical every 5 Branch (five) minutes as needed for Chest pain. pantoprazol 2019- Yes [id number] 40mg Take 1 [facility] e 40 mg EC 0-27 tablet by ity of tablet 00:00: mouth [place] 00 daily. Medical Branch nitroglycer 2019- Yes [id number] .4mg Place 1 [facility] in 0.4 mg 0-27 tablet ity of sublingual 00:00: under the [place] tablet 00 tongue Medical every 5 Branch (five) minutes as needed for Chest pain. pantoprazol 2019-02 Yes [id number] 40mg Take 1 [facility] e 40 mg EC 0-27 tablet by ity of tablet 00:00: mouth [place] 00 daily. Medical Branch nitroglycer 2019-[id number] 1 [facility] in 0.4 mg 0-27 tablet ity of sublingual 00:00: under the [place] tablet 00 tongue Medical every 5 Branch (five) minutes as needed for Chest pain. pantoprazol 2019-02 Yes [id number] 40mg Take 1 [facility] e 40 mg EC 0-27 tablet by ity of tablet 00:00: mouth [place] 00 daily. Medical Branch Euflexxa Euflexxa 2020-0 No 2mL Commo n 3-16 [facility] 00:00: - [facility] Euflexxa Euflexxa 2020-0 No 2mL Commo n 3-09 [facility] 00:00: - [facility] Euflexxa Euflexxa 2020-0 No 2mL Commo n 3-02 [facility] 00:00: - [facility] Kenalog Kenalog 2018-1 No 40mg Common (Triamcinol (Triamcinol 1-27 S pirit one) one) [facility] No 40mg Common (Triamcinol (Triamcinol 1-05 S pirit one) one) 00:00: - [facility] gabapentin 2015- Yes 300mg Take 1 Univ ers (NEURONTIN) [...] 00 (three) Medical times Branch daily. gabapentin 2016- Yes 300mg Take 1 Univ ers (NEURONTIN) 1-17 capsule by it y of 300 mg 00:00: mouth 3 [place] capsule 00 (three) Medical times Branch daily. gabapentin 2016- Yes 300mg Take 1 Univ ers (NEURONTIN) 1-17 capsule by it y of 300 mg 00:00: mouth 3 [place] capsule 00 (three) Medical times Branch daily. gabapentin 2016- Yes 300mg Take 1 Univ ers (NEURONTIN) 1-17 capsule by it y of 300 mg 00:00: mouth 3 [place] capsule 00 (three) Medical times Branch daily. gabapentin 2016- Yes 300mg Take 1 Univ ers (NEURONTIN) 1-17 capsule by it y of 300 mg 00:00: mouth 3 [place] capsule 00 (three) Medical times Branch daily. gabapentin 2016- Yes 300mg Take 1 Univ ers (NEURONTIN) 1-17 capsule by it y of 300 mg 00:00: mouth 3 [place] capsule 00 (three) Medical times Branch daily. gabapentin 2016- Yes 300mg Take 1 Univ ers (NEURONTIN) 1-17 capsule by it y of 300 mg 00:00: mouth 3 [place] capsule 00 (three) Medical times Branch daily. gabapentin 2016- Yes 300mg Take 1 Univ ers (NEURONTIN) 1-17 capsule by it y of 300 mg 00:00: mouth 3 [place] capsule 00 (three) Medical times Branch daily. gabapentin 2016- Yes 300mg Take 1 Univ ers (NEURONTIN) 1-17 capsule by it y of 300 mg 00:00: mouth 3 [place] capsule 00 (three) Medical times Branch daily. gabapentin 2016- Yes 300mg Take 1 Univ ers (NEURONTIN) 1-17 capsule by it y of 300 mg 00:00: mouth 3 [place] capsule 00 (three) Medical times Branch daily. gabapentin 2016- Yes 300mg Take 1 Univ ers (NEURONTIN) 1-17 capsule by it y of 300 mg 00:00: mouth 3 [place] capsule 00 (three) Medical times Branch daily. gabapentin 2016- Yes 300mg Take 1 Univ ers (NEURONTIN) 1-17 capsule by it y of 300 mg 00:00: mouth 3 [place] capsule 00 (three) Medical times Branch daily. gabapentin 2016- Yes 300mg Take 1 Univ ers (NEURONTIN) 1-17 capsule by it y of 300 mg 00:00: mouth 3 [place] capsule 00 (three) Medical times Branch daily. gabapentin 2016- Yes 300mg Take 1 Univ ers (NEURONTIN) 1-17 capsule by it y of 300 mg 00:00: mouth 3 [place] capsule 00 (three) Medical times Branch daily. gabapentin 2016- Yes 300mg Take 1 Univ ers (NEURONTIN) 1-17 capsule by it y of 300 mg 00:00: mouth 3 [place] capsule 00 (three) Medical times Branch daily. gabapentin 2016- Yes 300mg Take 1 Univ ers (NEURONTIN) 1-17 capsule by it y of 300 mg 00:00: mouth 3 [place] capsule 00 (three) Medical times Branch daily. gabapentin 2016- Yes 300mg Take 1 Univ ers (NEURONTIN) 1-17 capsule by it y of 300 mg 00:00: mouth 3 [place] capsule 00 (three) Medical times Branch daily. gabapentin 2015- Yes 300mg Take 1 Univ ers (NEURONTIN) 1-17 capsule by it y of 300 mg 00:00: mouth 3 [place] capsule 00 (three) Medical times Branch daily. gabapentin 2016- Yes 300mg Take 1 Univ ers (NEURONTIN) 1-17 capsule by it y of 300 mg 00:00: mouth 3 [place] capsule 00 (three) Medical times Branch daily. gabapentin 2016- Yes 300mg Take 1 Univ ers (NEURONTIN) 1-17 capsule by it y of 300 mg 00:00: mouth 3 [place] capsule 00 (three) Medical times Branch daily. gabapentin 2016- Yes 300mg Take 1 Univ ers (NEURONTIN) 1-17 capsule by it y of 300 mg 00:00: mouth 3 [place] capsule 00 (three) Medical times Branch daily. gabapentin 2016- Yes 300mg Take 1 Univ ers (NEURONTIN) 1-17 capsule by it y of 300 mg 00:00: mouth 3 [place] capsule 00 (three) Medical times Branch daily. gabapentin 2016- Yes 300mg Take 1 Univ ers (NEURONTIN) 1-17 capsule by it y of 300 mg 00:00: mouth 3 [place] capsule 00 (three) Medical times Branch daily. gabapentin 2016- Yes 300mg Take 1 Univ ers (NEURONTIN) 1-17 capsule by it y of 300 mg 00:00: mouth 3 [place] capsule 00 (three) Medical times Branch daily. gabapentin 2016- Yes 300mg Take 1 Univ ers (NEURONTIN) 1-17 capsule by it y of 300 mg 00:00: mouth 3 [place] capsule 00 (three) Medical times Branch daily. amLODIPine 2016-0 Yes 10mg QD Take [address] (NORVASC) 7-14 [facility] 10 MG 13:23: daily. Medical tablet 19 Story metFORMIN 2015-0 Yes 500mg Take [address] (GLUCOPHAGE 7-14 mg by [facility] ) 500 MG 13:23: mouth 2 Medica l tablet 19 (two) Center times daily with breakfast and dinner. DULoxetine 2016-0 Yes 30mg QD Take [address] (CYMBALTA) 7-14 by mouth [facility] 30 MG 13:23: every Medical capsule 19 morning. Story DULoxetine 2015-0 Yes 60mg QD Take [address] (CYMBALTA) 7-14 by mouth [facility] 60 MG 13:23: nightly. Medical capsule 19 Story aspirin 81 2015-0 Yes 81mg QD Take [address] MG EC 7-14 by mouth [facility] tablet 13:23: daily. Medical [address] [place] [address] amLODIPine 2015-0 Yes 10mg QD Take [address] (NORVASC) 7-14 by mouth [facility] 10 MG 13:23: daily. Medical tablet 19 Story amLODIPine 2015-0 Yes 10mg QD Take [address] (NORVASC) 7-14 by mouth [facility] 10 MG 13:23: daily. Medical tablet 19 Story metFORMIN 2015-0 Yes 500mg Take [address] (GLUCOPHAGE 7-14 mg by [facility] ) 500 MG 13:23: mouth 2 Medica l tablet 19 (two) Center times daily with breakfast and dinner. DULoxetine 2016-0 Yes 30mg QD Take [address] (CYMBALTA) 7-14 by mouth [facility] 30 MG 13:23: every Medical capsule 19 morning. Story DULoxetine 2016-0 Yes 60mg QD Take [address] (CYMBALTA) 7-14 by mouth [facility] 60 MG 13:23: nightly. Medical capsule 19 Story aspirin 81 2016-0 Yes 81mg QD Take [address] MG EC 7-14 by mouth [facility] tablet 13:23: daily. Medical [address] [place] [address] metFORMIN 2015-0 Yes 500mg Take 500 [facility] [...] 60 MG 13:23: nightly. Medical capsule 19 Story aspirin 81 2016-0 Yes 81mg QD Take [address] MG EC 7-14 by mouth [facility] tablet 13:23: daily. Medical [address] [place] [address] amLODIPine 2016-0 Yes 10mg QD Take [address] (NORVASC) 7-14 by mouth [facility] 10 MG 13:23: daily. Medical tablet 19 Story metFORMIN 2016-0 Yes 500mg Take [address] (GLUCOPHAGE 7-14 mg by [facility] ) 500 MG 13:23: mouth 2 Medica l tablet 19 (two) Center times daily with breakfast and dinner. DULoxetine 2016-0 Yes 30mg QD Take [address] (CYMBALTA) 7-14 by mouth [facility] 30 MG 13:23: every Medical capsule 19 morning. Story DULoxetine 2016-0 Yes 60mg QD Take [address] (CYMBALTA) 7-14 by mouth [facility] 60 MG 13:23: nightly. Medical capsule [address] [place] [address] aspirin 81 2015-0 Yes 81mg QD Take [address] MG EC 7-14 by mouth [facility] tablet 13:23: daily. [address] amLODIPine 2016-0 Yes 10mg QD Take [address] (NORVASC) 7-14 by mouth [facility] 10 MG 13:23: daily. Medical tablet 19 Story metFORMIN 2016-0 Yes 500mg Take [address] (GLUCOPHAGE 7-14 mg by [facility] ) 500 MG 13:23: mouth 2 Medica l tablet 19 (two) Center times daily with breakfast and dinner. DULoxetine 2016-0 Yes 30mg QD Take [address] (CYMBALTA) 7-14 by mouth [facility] 30 MG 13:23: every Medical capsule 19 morning. Story DULoxetine 2016-0 Yes 60mg QD Take [address] (CYMBALTA) 7-14 by mouth [facility] 60 MG 13:23: nightly. Medical capsule 19 Story aspirin 81 2016-0 Yes 81mg QD Take [address] MG EC 7-14 by mouth [facility] tablet 13:23: daily. [address] amLODIPine 2016-0 Yes 10mg QD Take [address] (NORVASC) 7-14 by mouth [facility] 10 MG 13:23: daily. Medical tablet [address] [place] [address] metFORMIN 2015-0 Yes 500mg Take [address] (GLUCOPHAGE 7-14 mg by [facility] ) 500 MG 13:23: mouth 2 Medica l tablet 19 (two) Center times daily with breakfast and dinner. DULoxetine 2016-0 Yes 30mg QD Take [address] (CYMBALTA) 7-14 by mouth [facility] 30 MG 13:23: every Medical capsule 19 morning. Story DULoxetine 2015-0 Yes 60mg QD Take [address] (CYMBALTA) 7-14 by mouth [facility] 60 MG 13:23: nightly. Medical capsule [address] [place] [address] aspirin 81 0 Yes 81mg QD Take [address] MG EC 7-14 by mouth [facility] tablet 13:23: daily. [address] amLODIPine 2015-0 Yes 10mg QD Take [address] (NORVASC) 7-14 by mouth [facility] 10 MG 13:23: daily. Medical tablet [address] [place] [address] metFORMIN 0 Yes 500mg Take [address] (GLUCOPHAGE 7-14 mg by [facility] ) 500 MG 13:23: mouth 2 Medica l tablet 19 (two) Center times daily with breakfast and dinner. DULoxetine 2016-0 Yes 30mg QD Take [address] (CYMBALTA) 7-14 by mouth [facility] 30 MG 13:23: every Medical capsule 19 morning. Story DULoxetine 2015-0 Yes 60mg QD Take [address] (CYMBALTA) 7-14 by mouth [facility] 60 MG 13:23: nightly. Medical capsule [address] [place] [address] aspirin 81 0 Yes 81mg QD Take [address] MG EC 7-14 by mouth [facility] tablet 13:23: daily. [address] Metformin Metformin Yes [place] 1 tablet Common HCl HCl [place] with a Spirit meal - [facility] Diltiazem Diltiazem Yes [place] TK 1 C PO Common HCl ER HCl ER [place] D Spirit Coated Coated - [facility] Oxcarbazepi Oxcarbazepi Yes [place] 1 tablet Common ne ne [place] [facility] Duloxetine Duloxetine Yes [place] 1 capsule Common HCl HCl [place] Spirit [facility] Sumatriptan Sumatriptan Yes [place] 1 tablet Common Succinate Succinate [place] at least 2 Spirit hours - [facility] between [facility] doses as [facility] Nexium Nexium Yes [place] 1 capsule Comm on [place] [facility] Butalbital- Butalbital- Yes [place] 1 capsule Common ASA-Caffein ASA-Caffein [place] as needed Spirit e e [facility] Quetiapine Quetiapine Yes [place] 1 tablet Common Fumarate Fumarate [place] [facility] Plavix Plavix Yes [place] 1 tablet Commo n [place] [facility] Hydrocodone Hydrocodone Yes [place] as Common -Acetaminop -Acetaminop [place] directed Spirit hen hen [facility] Diclofenac Diclofenac Yes [place] 1 tablet Common Sodium Sodium [place] with food Spiri t or milk - [facility] Ondansetron Ondansetron Yes [place] 1 tablet Common [place] on the Spirit tongue and - [facility] allow to [facility] Cyclobenzap Cyclobenzap Yes [place] 1 tablet Common rine HCl rine HCl [place] as needed S pirit [facility] Gabapentin Gabapentin Yes [place] 1 capsule Common [place] [facility] Dyazide Dyazide Yes [place] 1 capsule Co mmon [place] in the Spirit morning - [facility] Amitriptyli Amitriptyli Yes [place] 1 tablet Common ne HCl ne HCl [place] at bedtime Spir it [facility] Atorvastati Atorvastati Yes [place] 1 tablet Common n Calcium n Calcium [place] Spir [facility] Linzess Linzess Yes [place] 1 capsule Co mmon [place] at least Spirit 30 minutes - [facility] before the St first meal [facility] of the day Medical on an Center empty stomach Amitiza Amitiza Yes [place] 1 capsule Co mmon [place] with food Spirit and water [facility] Alprazolam Alprazolam Yes [place] 1 tablet Common [place] [facility] NexIUM 40 NexIUM 40 No 1{capsu QD [...] 37.5-25 MG le_in_t 37.5-25 MG he_morn ing} Vital Signs Vital Name Observation Time Observation Value Comments Source Respiratory rate 2022-10-18 16:24:00 16 /min [facility] Body height 2022-10-18 16:24:00 157.5 cm [facility] Body weight 2022-10-18 16:24:00 88.905 kg [facility] BMI 2022-10-18 16:24:00 35.85 kg/m2 [facility] [place] [facility] Systolic blood 2022-09-21 12:14:00 113 mm[Hg] Univer sity of pressure [place] [facility] Diastolic blood 2022-09-21 12:14:00 57 mm[Hg] Unive rsity of pressure [place] [facility] [place] Heart rate 2022-09-21 12:14:00 60 /min [facility] [place] [facility] Body temperature 2022-09-21 12:14:00 36.78 [place] [facility] [place] [facility] Respiratory rate 2022-09-21 12:14:00 18 /min Univ ersity [facility] [place] [facility] Oxygen saturation in 2022-09-21 12:14:00 96 /min University of Arterial blood by [employer] Pulse oximetry Branch Body height 2022-09-20 01:00:00 160 cm [facility] [place] [facility] [place] Body weight 2022-09-20 01:00:00 96.2 kg [facility] [place] [facility] BMI 2022-09-20 01:00:00 37.58 kg/m2 [facility] [place] [facility] [place] Heart rate 2022-08-29 19:55:00 86 /min [facility] [place] [facility] Oxygen saturation in 2022-08-29 19:55:00 96 /min [facility] of Arterial blood by [place] [employer] Pulse oximetry Branch Respiratory rate 2022-08-29 19:50:00 15 /min [facility] [place] [facility] Systolic blood 2022-08-29 19:40:00 104 mm[Hg] Univer sity of pressure [place] [facility] Diastolic blood 2022-08-29 19:40:00 43 mm[Hg] Unive rsity of pressure [place] [facility] Body temperature 2022-08-29 18:00:00 36.33 [place] [facility] [place] [facility] Body height 2022-08-29 14:20:00 160 cm [facility] [place] [facility] Body weight 2022-08-29 14:20:00 92.4 kg [facility] [place] [facility] BMI 2022-08-29 14:20:00 36.08 kg/m2 [facility] [place] [facility] Systolic blood 2022-08-29 18:30:00 115 mm[Hg] Univer sity of pressure [place] [facility] Diastolic blood 2022-08-29 18:30:00 57 mm[Hg] Unive rsity of pressure [place] [facility] Heart rate 2022-08-29 18:30:00 90 /min [facility] [place] [facility] Respiratory rate 2022-08-29 18:30:00 15 /min [facility] [place] [facility] Oxygen saturation in 2022-08-29 18:30:00 95 /min [facility] Arterial blood by [place] [employer] Pulse oximetry Branch Body temperature 2022-08-29 18:00:00 36.33 [place] [facility] [place] [facility] Body height 2022-08-29 14:20:00 160 cm [facility] [place] [facility] Body weight 2022-08-29 14:20:00 92.4 kg [facility] [place] [facility] BMI 2022-08-29 14:20:00 36.08 kg/m2 [facility] [place] [facility] Body weight 2022-08-15 16:07:00 91.6 kg [facility] [place] [facility] BMI 2022-08-15 16:07:00 35.77 kg/m2 [facility] [place] [facility] Systolic blood 2022-08-11 02:50:50 118 mm[Hg] Univer sity of pressure [place] [facility] Diastolic blood 2022-08-11 02:50:50 67 mm[Hg] Unive rsity of pressure [place] [facility] Heart rate 2022-08-11 02:50:50 86 /min [facility] [place] [facility] Body temperature 2022-08-11 02:50:50 36.72 [place] [facility] [place] [facility] Respiratory rate 2022-08-11 02:50:50 16 /min [facility] [place] [facility] Body height 2022-08-10 23:19:00 160 cm [facility] [place] [facility] Body weight 2022-08-10 23:19:00 91.627 kg [facility] [place] [facility] BMI 2022-08-10 23:19:00 35.78 kg/m2 [facility] [place] [facility] Oxygen saturation in 2022-08-10 23:19:00 99 /min [facility] Arterial blood by [place] [employer] [facility]izabeth Pulse oximetry Branch Systolic blood 2022-08-08 01:05:00 124 mm[Hg] Univer sity of pressure [place] [facility] Diastolic blood 2022-08-08 01:05:00 65 mm[Hg] Unive rsity of pressure [place] [facility] Heart rate 2022-08-08 01:05:00 75 /min [facility] [place] [facility] Body temperature 2022-08-08 01:05:00 36.44 [place] [facility] [place] [facility] Respiratory rate 2022-08-08 01:05:00 16 /min [facility] [place] [facility] Oxygen saturation in 2022-08-08 01:05:00 98 /min [facility] Arterial blood by [facility] elizabeth Pulse oximetry Branch Body weight 2022-08-07 23:41:00 94.348 kg [facility] [place] [facility] BMI 2022-08-07 23:41:00 36.85 kg/m2 [facility] [place] [facility] Systolic blood 2022-08-03 18:02:00 125 mm[Hg] Univer [facility]ity [facility] pressure [place] [facility] Diastolic blood 2022-08-03 18:02:00 76 mm[Hg] Unive rsity of pressure [place] [facility] Heart rate 2022-08-03 18:02:00 99 /min [facility] [place] [facility] Body temperature 2022-08-03 18:02:00 36.61 [place] [facility] [place] [facility] Respiratory rate 2022-08-03 18:02:00 16 /min [facility] [place] [facility] Body height 2022-08-03 18:02:00 160 cm [facility] [place] [facility] Body weight 2022-08-03 18:02:00 94.348 kg [facility] [place] [facility] BMI 2022-08-03 18:02:00 36.85 kg/m2 [facility] [place] [facility] Oxygen saturation in 2022-08-03 18:02:00 97 /min [facility] Arterial blood by [facility] elizabeth Pulse oximetry Branch Systolic blood 2022-07-13 19:00:00 110 mm[Hg] Univer sity of pressure [place] [facility] Diastolic blood 2022-07-13 19:00:00 57 mm[Hg] Unive rsity of pressure [place] [facility] Heart rate 2022-07-13 19:00:00 94 /min [facility] [place] [facility] Body height 2022-07-13 19:00:00 160 cm [facility] [place] Medical Branch Body weight 2022-07-13 19:00:00 97.07 kg [facility] [place] [facility] BMI 2022-07-13 19:00:00 37.91 kg/m2 [facility] [place] [facility] Oxygen saturation in 2022-07-13 19:00:00 97 /min [facility] Arterial blood by [facility] elizabeth Pulse oximetry Branch Heart rate 2022-02-23 03:30:00 92 /min [facility] [place] [facility] Respiratory rate 2022-02-23 03:30:00 20 /min [facility] [place] [facility] Oxygen saturation in 2022-02-23 03:30:00 100 /min [facility] Arterial blood by [facility] Pulse oximetry Branch Systolic blood 2022-02-23 02:00:00 133 mm[Hg] [facility] [place] [facility] Diastolic blood 2022-02-23 02:00:00 44 mm[Hg] [facility] [place] [facility] Body temperature 2022-02-23 00:33:00 36.83 Crystal [facility] [place] [facility] Body height 2022-02-23 00:33:00 160 cm [facility] [place] [facility] Body weight 2022-02-23 00:33:00 114.76 kg [facility] [place] [facility] BMI 2022-02-23 00:33:00 44.82 kg/m2 [facility] [place] [facility] Systolic blood 2021-07-05 21:08:00 148 mm[Hg] [facility] [place] [facility] Diastolic blood 2021-07-05 21:08:00 90 mm[Hg] [facility] [place] [facility] Heart rate 2021-07-05 21:08:00 89 /min [facility] [place] [facility] Body temperature 2021-07-05 19:44:00 36.56 Crystal [facility] [place] [facility] Body height 2021-07-05 19:44:00 160 cm [facility] [place] [facility] Body weight 2021-07-05 19:44:00 130.137 kg [facility] [place] [facility] BMI 2021-07-05 19:44:00 50.82 kg/m2 [facility] [place] [facility] Oxygen saturation in 2021-07-05 19:44:00 99 /min [facility] Arterial blood by [facility] Pulse oximetry Branch Procedures Procedure Date / Time Performing Clinician Source Performed XR LUMBAR SPINE 2 VW 2022-10-18 15:49:45 Jennifer Palmer [facility] EXTERNAL PROVIDER RECORDS 2022-10-12 05:01:00 Doctor Unassigned, [facility] [place] [facility] PHOSPHORUS 2022-09-21 15:49:00 Nadira Ron [facility] MAGNESIUM 2022-09-21 15:49:00 Nadira Ron [facility] COMP. METABOLIC PANEL 2022-09-21 15:49:00 Nadira Ron [facility] ([id number]) [facility] CBC WITH DIFF 2022-09-21 15:49:00 Quinten Mcneill Nadira [facility] POCT GLUCOSE (AUTOMATED) 2022-09-21 12:14:00 Melonie King [facility] POCT GLUCOSE (AUTOMATED) 2022-09-21 01:22:00 Melonie King [facility] POCT GLUCOSE (AUTOMATED) 2022-09-20 21:03:00 Melonie iKng [facility] POCT GLUCOSE (AUTOMATED) 2022-09-20 17:31:00 Melonie King [facility] BASIC METABOLIC PANEL 2022-09-20 15:52:00 [facility] ([facility], K, CL, CO2, GLUCOSE, Medica l Branch BUN, CREATININE, CA) CBC WITH DIFF 2022-09-20 15:52:00 [facility] POCT GLUCOSE (AUTOMATED) 2022-09-20 15:10:00 Melonie King [facility] POCT GLUCOSE (AUTOMATED) 2022-09-20 12:02:00 Melonie King [facility] POCT GLUCOSE (AUTOMATED) 2022-09-20 01:34:00 Melonie King [facility] POCT GLUCOSE (AUTOMATED) 2022-09-19 21:38:00 Melonie King [facility] PHOSPHORUS 2022-09-19 16:33:00 [facility] MAGNESIUM 2022-09-19 16:33:00 [facility] BASIC METABOLIC PANEL 2022-09-19 16:33:00 Amparo [facility] (NA, K, CL, CO2, GLUCOSE, Medica l Branch BUN, CREATININE, CA) CBC WITH DIFF 2022-09-19 16:33:00 Amparo [facility] POCT GLUCOSE (AUTOMATED) 2022-09-19 16:30:00 Melonie King [facility] XR LUMBAR SPINE 2 VW 2022-09-19 15:02:00 Jennifer [facility] POCT GLUCOSE (AUTOMATED) 2022-09-19 12:15:00 Melonie King [facility] POCT GLUCOSE (AUTOMATED) 2022-09-19 01:36:00 Melonie King [facility] POCT GLUCOSE (AUTOMATED) 2022-09-18 22:00:00 Melonie King [facility] MR LUMBAR SPINE W WO 2022-09-18 21:56:15 Orlando Mckeon [facility] POCT GLUCOSE (AUTOMATED) 2022-09-18 17:11:00 Melonie King [facility] XR LUMBAR SPINE 2 VW 2022-09-18 13:35:53 [facility]OMATED) 2022-09-18 13:05:00 Melonie King [facility] XR ELBOW <3 VW RIGHT 2022-09-18 13:03:31 [facility] XR FOOT <3 VW RIGHT 2022-09-18 13:03:31 [facility] XR KNEE <3 VW RIGHT 2022-09-18 13:03:31 Amparo [facility] XR TIBIA FIBULA 2 VW 2022-09-18 13:03:31 [facility]paro [facility] CT HEAD WO CONTRAST 2022-09-18 06:10:38 Moroe de Elguea [facility] [place] [facility], [facility] CT CERVICAL SPINE WO 2022-09-18 06:10:31 Moore de [facility] Univers [facility] CONTRAST [facility], [facility] CT LUMBAR SPINE WO 2022-09-18 06:10:22 Moore de [facility] CONTRAST [facility], [facility] CT ABDOMEN PELVIS WO 2022-09-18 05:20:17 Linda [facility] CT THORACIC SPINE WO 2022-09-18 05:20:17 Linda [facility] CT THORAX WO CONTRAST 2022-09-18 05:20:17 Linda [facility] COMP. METABOLIC PANEL 2022-09-18 04:49:00 Orlando Mckeon [facility] ([id number]) [facility] CBC WITH DIFF 2022-09-18 04:49:00 Linda [facility] o f [facility] PROTHROMBIN TIME / INR 2022-09-18 04:49:00 Orlando Mckeon [facility] XR LUMBAR SPINE 1 VW 2022-08-29 17:19:56 Chrissy Hagen [facility] XR LUMBAR SPINE 1 VW 2022-08-29 17:19:56 Chrissy Hagen [facility] PANEL IDENTIFICATION 2022-08-29 16:25:00 Chrissy Hagen [facility] EXTRA TUBE LAV (BLOOD 2022-08-29 16:25:00 Chrissy Hagen [facility]) Medical Branch ANTIGEN TYPING PATIENT 2022-08-29 16:25:00 [facility] PANEL IDENTIFICATION 2022-08-29 16:25:00 Chrissy Hagen [facility] EXTRA TUBE LAV (BLOOD 2022-08-29 16:25:00 Chrissy Hagen [facility]) Medical Branch POSTERIOR LAMINECTOMY 2022-08-29 15:43:00 Chrissy Hagen [facility] ABORH CONFIRMATION (LAB 2022-08-29 15:26:00 [facility] Branch ABORH CONFIRMATION (LAB 2022-08-29 15:26:00 Hieu [facility] ONLY) Medical Branch HB ABO GROUPING 2022-08-29 14:51:00 [place] [facility] HB ABO GROUPING 2022-08-29 14:51:00 [place] [facility] POCT GLUCOSE (AUTOMATED) 2022-08-29 14:10:00 [facility]SE (AUTOMATED) 2022-08-29 14:10:00 Chrissy Hagen [facility] ASSIGNMENT OF BENEFITS 2022-08-29 14:02:37 Doctor Unassdianne, [facility] [place] [facility] CT PELVIS WO CONTRAST 2022-08-11 01:25:41 Jorge Schmidt Un [facility] Medical [place] ASSIGNMENT OF BENEFITS 2022-08-10 23:54:42 Doctor Toñassdianne, [facility] [place] [facility] COMP. METABOLIC PANEL 2022-08-10 23:50:00 Jorge [facility] [place] [id number] Medical Branch CBC WITH DIFF 2022-08-10 23:50:00 Jorge Schmidt [facility] CONSENT/REFUSAL FOR 2022-08-10 23:09:37 Doctor Roshni [facility] DIAGNOSIS AND TREATMENT [facility] ASSIGNMENT OF BENEFITS 2022-08-08 00:56:57 Doctor Unassigned, [facility] [place] CONSENT/REFUSAL FOR 2022-08-07 23:36:27 Doctor Roshni [facility] DIAGNOSIS AND TREATMENT [facility] MN INCISION & DRAINAGE 2022-08-03 18:43:28 Iris Pruett [facility] ABSCESS SIMPLE/SINGLE Medical Br anch CONSENT/REFUSAL FOR 2022-08-03 17:59:48 Doctor Roshni, [facility] DIAGNOSIS AND TREATMENT [place] HB ECG ROUTINE & RHYTHM 2022-07-13 18:56:57 Cristina Short [facility] [place] STRIP Medical Branch MR LUMBAR SPINE WO 2022-07-04 20:01:[address] [facility] CONTRAST [facility] XR FOOT <3 VW LEFT 2022-06-21 19:57:53 Miller Frye [facility] COMP. METABOLIC PANEL 2022-02-23 02:20:00 Ludwig Palmer [facility] ([id number]) Medical [place] EKG-12 LEAD 2022-02-23 02:19:34 [place] [facility] XR CHEST 1 VW 2022-02-23 01:49:05 Spencer [facility] CT ABDOMEN PELVIS W 2022-02-23 01:47:59 Ludwig Palmer [facility] CONTRAST [facility] Branch URINALYSIS 2022-02-23 01:13:00 Spencer [facility] LIPASE 2022-02-23 01:03:00 Spencer [facility] TROPONIN I 2022-02-23 01:03:00 Spencer [facility] CBC WITH DIFF 2022-02-23 01:03:00 Spencer [facility] N-TERMINAL PRO-BNP 2022-02-23 01:03:00 Ludwig Palmer [facility] NOTICE OF PRIVACY 2022-02-23 00:12:08 Doctor Unassigned, [facility] PRACTICES [facility] CONSENT/REFUSAL FOR 2022-02-23 00:08:56 Doctor Unassigned, [facility] DIAGNOSIS AND TREATMENT [facility] Encounters Start End Encounter Admission Attending Care Care Encounter Source Date/Time Date/Time Type Type Clinicians Facility Department ID 2021-07-12 [facility] [id number] Common 16:16:00 Orlando [facility] 2021-03-22 Outpatient Burnett, [facility] [id number] Common 12:43:31 Orlando [facility] 2021-03-22 Outpatient Burnett, [facility] [id number] Common 12:34:26 Orlando [facility] 2021-03-22 Outpatient Burnett, STLMLC STLML[facility] [id number] Common 12:07:40 Orlando [address] [facility] 2021-03-22 Outpatient Burnett, STLMLC STLMLC [id number] Common 11:56:38 Orlando 17636 [facility] 2021-03-22 Outpatient Burnett, STLMLC STLMLC [id number] Common 11:36:33 Orlando 28052 [facility] 2021-03-22 Outpatient Burnett, STLMLC STLMLC [id number] Common 11:21:57 Orlando 18305 [facility] 2021-03-22 Outpatient Burnett, STLMLC STLMLC [id number] Common 11:08:32 Orlando [address]42 [facility] 2021-03-22 Outpatient Burnett, STLMLC STLMLC [id number] Common 11:07:34 Orlando [address] [facility] 2021-03-22 Outpatient Burnett, STLMLC STLC [id number] Common 11:05:30 Orlando [address] [facility] 2021-03-22 Outpatient Burnett, STLMLC STLMLC [id number] Common 11:04:39 Orlando [address]67 [facility] 2020-12-25 Emergency [facility] [id number] Univers 23:42:02 [facility] 2020-12-25 Outpatient JAZZ [facility] SPL [id number] Univers 17:18:11 SATHYA [facility] 2020-12-23 Emergency [facility] [id number] Univers 22:47:17 [facility] 2020-12-23 Emergency [facility] [id number] Univers 16:11:18 [facility] 2022-11-22 2022-11-22 Outpatient CHRISSY STOVER [facility] [id number] Univers 12:30:00 12:30:00 ity [facility] 2022-10-22 2022-10-22 Outpatient SFA PERCY [id number] Eduardo Maradiaga 13:38:45 13:38:45 [id number] F Roberto 2022-10-18 2022-10-18 [facility] [id number] [id number] Univers 10:16:22 23:59:00 Encounter Jennifer HEALTH 350.1.13.10 [place] [id number] [facility] 807 Branch ([facility]) 2022-10-18 2022-10-18 Outpatient R CHRISSY HAGEN [facility] [id number] Univers 10:00:00 12:24:44 ity of [facility] 2022-10-18 2022-10-18 [facility] 1.2.840.114 [id number] Univers 10:00:00 12:24:44 Visit HEALTH 350.1.13.10 it [place] [id number] [facility] 196 Branch OFFICE BUILDING 2022-10-12 2022-10-12 Orders Doctor REDDY 1.2.840.114 [id number] Univers 00:00:00 00:00:00 Only Unassigned, JASON 350.1.13.10 ity of [place] [facility] 4.2.7.2.686 Emmanuel as [id number] [facility] 009 Branch 2022-09-24 2022-09-24 Transition CAROLINA Forte 1.2.840.114 [id number] Univers 00:00:00 00:00:00 of Care Sunita Hough PAYNE 350.1.13.10 i [place] [id number] [facility] 403 Branch 2022-09-17 2022-09-21 Inpatient X CARLEEN [facility] STR [id number] Univers 23:34:00 13:20:00 TASO ity of [facility] 2022-09-17 2022-09-21 Hospital Melonie King [facility] 1.2.840.11 [id number] Univers 23:34:00 13:20:00 Encounter Atilio Durant [facility] 350.1.13.10 [place] [id number] [facility] 109 Branch ([facility]) 2022-09-04 2022-09-04 Telephone Hieu Chrissy [facility] 1.2.840.114 [id number] Univers 00:00:00 00:00:00 HEALTH 350.1.13.10 it [place] [id number] [facility] 196 Branch OFFICE BUILDING 2022-08-29 2022-08-29 Outpatient R CHRISSY HAGEN [facility] [id number] Univers 09:02:00 15:00:00 ity of [facility] 2022-08-29 2022-08-29 Hospital Chrissy Hagen [facility] 1.2.840.114 [id number] Univers 09:02:00 15:00:00 Encounter HEALTH 350.1.13.10 [place] [id number] [facility] 049 Branch ([facility]) 2022-08-29 2022-08-29 Surgery Chrissy Hagen [facility] 1.2.840.114 [id number] Univers 10:55:00 13:32:00 HEALTH 350.1.13.10 [place] [id number] [facility] 020 Branch ([facility]) 2022-08-29 2022-08-29 Orders Doctor REDDY 1.2.840.114 [id number] Univers 00:00:00 00:00:00 Only Unassigned, JASON 350.1.13.10 ity of [place] [facility] 4.2.7.2.686 Emmanuel as [id number] [facility] 009 Branch 2022-08-21 2022-08-21 Pre-Anesth Call, [facility] 1.2.840.114 [id number] Univers 07:05:00 07:10:00 esia [facility] Phone HEALTH 350.1.13.10 ity of [place] [id number] [facility] 415 Branch ([facility]) 2022-08-16 2022-08-16 Pre-Anesth Call, [facility] 1.2.840.114 1 [id number] Univers 07:15:00 07:20:00 esia [facility] Phone HEALTH 350.1.13.10 ity of [place] [id number] [address] ([facility]) 2022-08-15 2022-08-15 Pre-Anesth Call, [facility] 1.2.840.114 1 [id number] Univers 11:10:00 11:15:00 esia [facility] Phone HEALTH 350.1.13.10 ity of Evaluation [place].2.[place] [id number] [address] ([facility]) 2022-08-10 2022-08-10 Emergency X JHON [facility] ERT [id number] Univers 18:21:00 22:07:00 CAROL ho [facility] 2022-08-10 2022-08-10 Emergency Jorge Schmidt [facility] 1.2. 840.114 [id number] Univers 18:21:00 22:07:00 Carol Vicente 350.1.13.10 it[place] [id number] [address] 2022-08-08 2022-08-08 Prep For Chrissy Hagen 1.2.840.114 1 [id number] Univers 00:00:00 00:00:00 Surgery JASON 350.1.13.10 it y of [facility] 4.2.7.2.686 Emmanuel as [id number] [place] [address] Branch 2022-08-07 2022-08-07 Emergency X SINGER [facility] ERT [id number] Univers 18:42:00 20:14:00 SERG ho [facility] 2022-08-07 2022-08-07 Emergency [facility] 1.2.082.006 [id number] Univers 18:42:00 20:14:00 Serg MADRIGAL 350.1.13.10 i ty [place] [id number] [address] 2022-08-07 2022-08-07 Orders Doctor REDDY 1.2.840.114 [id number] Univers 00:00:00 00:00:00 Only Unassigned, JASON 350.1.13.10 ity of [place] [facility] 4.2.7.2.686 Emmanuel as [id number] [address] 2022-08-03 2022-08-03 Emergency X [facility] ERT [id number] Univers 13:04:00 14:23:00 IRIS ity [facility] 2022-08-03 2022-08-03 Emergency [facility] 1.2.988.500 [id number] Univers 13:04:00 14:23:00 Iris MADRIGAL 350.1.13.10 i ty [facility] [place] [id number] [facility] 084 Branch 2022-08-03 2022-08-03 Orders Doctor REDDY 1.2.840.114 [id number] Univers 00:00:00 00:00:00 Only Unassigned, JASON 350.1.13.10 [facility] 4.2.7.2.686 Emmanuel as [id number] [address] 2022-07-25 2022-07-25 Outpatient R HAN [facility] [id number] Univers 08:52:19 23:59:00 CRISTINA ho o [facility] 2022-07-13 2022-07-13 Outpatient [facility] [id number] Univers 13:40:00 14:16:48 CRISTINA ho o [facility] 2022-07-13 2022-07-13 Office [facility] 1.2.840.114 [id number] Univers 13:40:00 14:16:48 Visit Cristina MADRIGAL 350.1.13.10 ity [facility] [place]2.[place] [facility] [id number] [address] 2022-07-12 2022-07-12 Outpatient R CHRISSY HAGEN [facility] [id number] Univers 11:15:00 13:01:43 ity [facility] 2022-07-04 2022-07-04 Outpatient R [facility] [id number] Univers 13:40:41 23:59:00 SHIRA itperry [facility] 2022-07-04 2022-07-04 [facility] 1.2.840.114 [id number] Univers 13:40:41 23:59:00 Encounter Shira MADRIGAL 350.1.13.10 ity [facility] 4.2.7.2.686 [facility] [id number] [facility] 804 [place] 2022-06-21 2022-06-21 Outpatient R [facility] [id number] Univers 14:50:02 23:59:00 [facility] 2022-06-21 2022-06-21 [facility] 1.2.840.114 [id number] Univers 14:50:02 23:59:00 Encounter Miller MADRIGAL 350.1.13.10 ity [facility] 4.2.7.2.686 [facility] [id number] [facility] 807 [place] 2022-06-14 2022-06-14 Outpatient CHRISSY STOVER [facility] [id number] Univers 10:45:00 10:45:00 ity [facility] 2022-02-22 2022-02-22 Emergency X FLORENTIN [facility] ERT [id number] Univers 18:34:00 21:44:00 KIM perry [facility] 2022-02-22 2022-02-22 Emergency Ludwig Palmer [facility] 1.2.840. 114 [id number] Univers 18:34:00 21:44:00 Kim Lerma 350.1.13.10 ity [facility] 4.2.7.2.686 [facility] [id number] [facility] 084 Branch 2021-08-30 2021-08-30 Outpatient EL [facility] [id number] [facility] 00:00:00 00:00:00 2021-08-23 2021-08-23 [facility] [id number] [facility] 23:59:00 23:59:00 Encounter Eulalio Hough [facility] 2021-08-23 2021-08-23 Outpatient EL QUIANA, [facility] [id number] [facility] 00:00:00 23:59:00 EULALIO 2021-08-21 2021-08-21 Outpatient EL [facility] [id number] [facility] 00:00:00 00:00:00 2021-08-12 2021-08-[address] [facility] [id number] 00:00:00 00:00:00 [facility] 2021-08-11 2021-08-11 Outpatient R HAN, [facility] [id number] Univers 13:20:00 13:20:00 AMRITZOLTANJIMENEZ jyotiy o [facility] 2021-08-11 2021-08-11 Outpatient R HAN, [facility] [id number] Univers 13:20:00 13:20:00 [facility] o [facility] 2021-08-11 2021-08-[address] [facility] [id number] [facility] 00:00:00 00:00:00 Joslyn jhaveri nelida [facility] 2021-07-12 2021-07-12 (TEL) [facility] [id number] Co mmon 00:00:00 00:00:00 Devan Tariq [facility] 2021-07-05 2021-07-05 Outpatient R [facility] [id number] Univers 15:00:00 15:38:09 LACIE ho [facility] 2021-07-05 2021-07-05 Office [facility] 1.2.840.114 [id number] Univers 15:00:00 15:38:09 Visit Lacie [facility] 350.1.13.10 i ty of [place] 4.2.7.2.686 Emmanuel as TOO?BLEA [id number] Co shakir [address] MEDICAL OFFICE BUILDING 2021-06-29 2021-06-29 Orders Doctor REDDY 1.2.840.114 [id number] Univers 00:00:00 00:00:00 Only Unassigned, JASON 350.1.13.10 ity of [place] [facility] 4.2.7.2.686 Emmanuel as [id number] [facility] 009 [place] 2021-06-07 2021-06-07 Outpatient Shanon SHORT [facility] [id number] Univers 15:40:00 15:40:00 CRISTINA ho o f [facility] 2021-06-01 2021-06-01 Outpatient Shanon [facility] [id number] Univers 14:40:00 14:40:00 CRISTINA ho o [facility] 2021-06-01 2021-06-01 Telephone [facility] [id number] [id number] Univers 00:00:00 00:00:00 [facility] 350.1.13.10 i ty of [place] 4.2.7.2.686 Emmanuel as TOO?BLEA [id number] Co shakir GANDARAEY [address] [place] MEDICAL OFFICE [facility] 2021-05-16 2021-05-16 Emergency X JHON [facility] ERT [id number] Univers 17:47:00 22:54:00 CAROL ho [facility] 2021-05-16 2021-05-16 Emergency Iris Pruett [facility] 1.2.840. 114 [id number] Univers 17:47:00 22:54:00 Carol Vicente [place] 350.1.13.10 ity [place] [id number] [facility] 084 [place] 2021-05-15 2021-05-15 Telephone [facility] [id number] [id number] Univers 00:00:00 00:00:00 Fabriziojimenez [place] 350.1.13.10 ity of [place] PROF[place] [id number] Co shakir MARTÍNEZ 059 [facility] 2021-05-04 2021-05-04 Outpatient Shanon VELAZQUEZ [facility] [id number] Univers 10:30:00 10:30:00 SPRING ho [facility] 2021-05-03 2021-05-03 Outpatient Shanon VELAZQUEZ [facility] [id number] Univers 13:00:00 13:00:00 SPRING ho [facility] 2021-04-28 2021-04-28 Outpatient R RADHA, [facility] [id number] Univers 13:00:00 13:00:00 LACIE ho [facility] 2021-04-27 2021-04-27 Outpatient R RADHA, [facility] [id number] Univers 14:30:00 15:19:29 LACIE ho [facility] 2021-04-26 2021-04-26 Outpatient R RADHA, [facility] [id number] [employer] 12:30:00 12:30:00 LACIE ho [facility] 2021-04-06 2021-04-06 Office Radha, [facility] [id number] Univers 14:00:00 15:51:55 Visit [facility] [id number] i ty of [place] [id number] Emmanuel as TOO?BLEA [id number] [address] MEDICAL OFFICE BUILDING 2021-04-06 2021-04-06 Outpatient R RADHA, [facility] [id number] Univers 14:00:00 15:51:55 LACIE ho [facility] 2021-04-06 2021-04-06 Outpatient R RADHA, [facility] [id number] Univers 14:00:00 14:00:00 LACIE ho [facility] 2021-04-05 2021-04-05 Outpatient R RADHA, [facility] [id number] Univers 14:00:00 14:00:00 LACIE ho [facility] 2021-01-25 2021-01-25 Outpatient R RADHA, [facility] [id number] Univers 11:00:00 11:00:00 LACIE ho [facility] 2020-12-08 2020-12-08 Office Radha, [facility] 1.2.840.114 [id number] Univers 12:34:35 13:29:22 Visit [facility] 350.1.13.10 i ty of [place] 4.2.7.2.686 Emmanuel as Too?Blea [phone] [address] Office Building 2020-12-08 2020-12-08 [facility] [id number] Univers 12:30:00 12:30:00 LACIE ho [facility] 2020-12-06 2020-12-06 Office [facility] 1.2.840.114 [id number] Univers 15:42:45 16:02:45 [facility] [place] [phone] Co shakir [facility] 059 [facility] 2020-12-06 2020-12-06 Outpatient [facility] [id number] Univers 16:00:00 16:00:00 CRISTINA ho [facility] 2020-12-05 2020-12-05 Outpatient [facility] [id number] Univers 14:20:00 14:20:00 CRISTINA meza [facility] 2020-11-23 2020-11-23 Outpatient PRIV PRIV [id number] 4-2 [facility] 00:00:00 00:00:00 [id number] Medica l 2020-11-23 2020-11-23 Outpatient PRIV PRIV [id number] 4-2 [facility] 00:00:00 00:00:00 [id number] Medica l 2020-11-22 2020-11-22 Urgent Kasie Johns [facility] 1.2.840.114 [id number] Univers 16:50:10 17:10:10 Елена Davis 350.1.13.10 itperry [facility] 4.2.7.2.686 Emmanuel as Too?Blea [phone] Co shakir igor [address] [facility] 2020-11-22 2020-11-22 Outpatient R NURA [facility] [id number] Univers 17:00:00 17:00:00 ЕЛЕНА ho derrick [facility] 2020-11-10 2020-11-10 Telephone [facility] 1.2.486.299 [id number] Univers 00:00:00 00:00:00 Lacie [facility] 350.1.13.10 i ty of [place] 4.2.7.2.686 Emmanuel as Too?Blea [phone] [facility] [address] [facility] [facility] 2020-11-05 2020-11-05 Telephone REDDY Hernandez 1.2.556.828 [id number] Univers 00:00:00 00:00:00 Brynn Molina JASON 350.1.13.10 i ty of HOSPITAL 4.2.7.2.686 Emmanuel as [phone] [address] 2020-11-03 2020-11-03 Laboratory Only, Ang Db Test [facility] 1.2.8 40.114 [id number] Univers 19:12:03 19:27:03 Only Елена [facility] 350.1.13.10 ity of [place] 4.2.7.2.686 Emmanuel as Too?Blea [phone] [facility] [address] [place] [facility] 2020-11-03 2020-11-03 Outpatient R NURA [facility] [id number] Univers 19:25:00 19:25:00 ЕЛЕНА milan [facility] 2020-10-27 2020-10-27 Office [facility] 1.2.840.114 [id number] Univers 13:55:52 15:49:42 Visit Laice A [facility] 350.1.13.10 i ty of [place] 4.2.7.2.686 Emmanuel as Too?Blea [phone] [facility] 0[address] [place] [facility] 2020-10-27 2020-10-27 [employer] Lab, Ang - Db [facility] 1.2.840.1 14 [id number] Univers 15:25:48 15:40:48 Visit Lacie [facility] 350.1.13.10 ity of [place] 4.2.7.2.686 Emmanuel as Too?Blea [phone] [facility] [address] [facility] [facility] 2020-10-27 2020-10-27 Outpatient R [facility] [id number] Univers 13:30:00 13:30:00 LACIE ity of [facility] 2020-09-122020-09-12 Telephone [facility] 1.2.271.873 [id number] Univers 00:00:00 00:00:00 Cristina [place] 350.1.13.10 [place] [phone] Co dical [address] 2020-09-12 2020-09-12 [facility] 1.2.195.660 [id number] 00:00:00 00:00:00 Cristina Castilloton 350.1.13.10 [place] 4.2.7.2.686 Professio [phone] [address] 2020-08-01 2020-08-01 [facility] 1.2.981.821 [id number] [facility] 16:53:00 20:11:00 Cassandra R [place] 350.1.13.10 i ty [place]2.7.2.686 [place] [phone] [address] 2020-08-01 2020-08-01 [facility] 1.2.333.061 [id number] 16:53:00 20:11:00 Cassandra R [place] 350.1.13.10 [place] 4.2.7.2.686 [place] [phone] [facility] 2020-08-01 2020-08-01 Telephone Jazz [facility] 1.2.840.114 [id number] Univers 00:00:00 00:00:00 MobPartner 350.1.13.10 ity of [facility] 4.2.7.2.686 [place] [phone] [facility] [address] 2020-08-01 2020-08-01 Telephone Jazz, [facility] 1.2.840.114 [id number] 00:00:00 00:00:00 MobPartner 350.1.13.10 CLINICS 4.2.7.2.686 [phone] 201 2020-07-20 2020-07-20 Telemedici Jazz [facility] 1.2.840.114 [id number] Univers 12:21:31 12:36:31 ne Visit Sathya Robison HEALTH 350.1.13.10 ity of CLINICS 4.2.7.2.[place] [phone] [facility] [address] 2020-07-20 2020-07-20 TelemedicVIKAS Van 1.2.840.114 [id number] 12:21:31 12:36:31 ne Visit Sathya Robison HEALTH 350.1.13.10 CLINICS 4.2.7.2.686 [phone] 2020-07-20 2020-07-20 Outpatient R JAZZ [facility] [id number] Univers 11:45:00 11:45:00 SATHYA ity of [facility] 2020-07-19 2020-07-19 Telephone VIKAS Schulz 1.2.840.114 [id number] Univers 00:00:00 00:00:00 Sathya Robison HEALTH 350.1.13.10 ity of CLINICS 4.2.7.2.[place] [phone] [facility] [address] 2020-07-15 2020-07-15 Hospital Jazz Molly 1.2.371.504 [id number] Univers 07:17:00 13:04:00 Encounter Sathya Gomez 350.1.13.10 ity of [facility] 4.2.7.2.686 Emmanuel as [phone] [facility] [address] 2020-07-15 2020-07-15 Surgery Molly Schulz 1.2.840.114 [id number] Univers 09:44:00 12:25:00 Sathya Gomez 350.1.13.10 i ty of Hospital 4.2.7.2.686 Emmanuel as [phone] [facility] [address] 2020-07-15 2020-07-15 Anesthesia Tori Chand 1.2.840. 114 [id number] Univers 10:25:00 12:15:00 Event Faye Callahan 350.1.13.10 ity of Hospital 4.2.7.2.686 Emmanuel as [phone] [facility] [address] 2020-07-13 2020-07-13 Laboratory Only, Adc Test [facility] 1.2.840. 114 [id number] Univers 14:32:53 14:47:53 Only Sathya Schulz 350.1.13.10 [place]y [place] [phone] [facility] [address] 2020-07-13 2020-07-13 Outpatient R [facility] [id number] Univers 13:30:00 13:30:00 ity of [facility] 2020-07-13 2020-07-13 Orders Doctor REDDY 1.2.840.114 [id number] Univers 00:00:00 00:00:00 Only Unassigned, JASON 350.1.13.10 ity of [place] [facility] 4.2.7.2.686 Emmanuel as [phone] [facility] [address] 2020-07-06 2020-07-06 Telephone Maximo Umana 1.2.840.114 [id number] Univers 00:00:00 00:00:00 , Noa Payne 350.1.13.10 ity of [place]2.7.[place] [phone] [facility] [address] 2020-06-23 2020-06-23 Orders Doctor REDDY 1.2.840.114 [id number] Univers 00:00:00 00:00:00 Only Unassigned, JASON 350.1.13.10 ity of [place] [facility] 4.2.7.2.686 Emmanuel as [phone] [facility] [address] 2020-06-22 2020-06-22 Wood[employer] [facility] 1.2.840.114 [id number] Univers 12:57:30 13:44:59 Visit Sathya Schulz 350.1.13.10 ity of CLINICS 4.2.7.2.[place] [phone] [facility] [address] 2020-06-22 2020-06-22 Office GAGAN Schulz 1.2.840.114 [id number] Univers 11:41:57 12:56:42 Visit Ludwik K Y HEALTH 350.1.13.10 ity of CLINICS 4.2.7.2.[place] [phone] [facility] [address] 2020-06-22 2020-06-22 Outpatient R JAZZ [facility] [id number] Univers 11:30:00 11:30:00 LUDWIK ity of [facility] 2020-06-22 2020-06-22 Orders Doctor REDDY 1.2.840.114 [id number] Univers 00:00:00 00:00:00 Only Unassigned, JASON 350.1.13.10 ity of [place] [facility] 4.2.7.2.686 Emmanuel as [phone] [facility] [address] 2020-06-21 2020-06-21 Orders Doctor REDDY 1.2.840.114 [id number] Univers 00:00:00 00:00:00 Only Unassigned, JASON 350.1.13.10 ity of [place] [facility] 4.2.7.2.686 Emmanuel as [phone] [facility] [address] [place] 2020-06-20 2020-06-20 Telephone [facility] 1.2.276.415 [id number] Univers 00:00:00 00:00:00 Estephania Madrigal 350.1.13.10 [place] [phone] Co dical nal 059 [facility] 2020-06-15 2020-06-15 Telephone [facility] 1.2.840.114 [id number] Univers 00:00:00 00:00:00 Sathya Fu SPECIALTY 350.1.13.10 ity of C[place].2.7.2.[place] AT [phone] Co dical VICTORY 201 [facility] 2020-06-13 2020-06-13 [facility] 1.2.225.550 [id number] Univers 13:07:04 23:59:00 Encounter Sathya Fu SPECIALTY 350.1.13.10 ity of CARE [place]2.7.2.[place] [phone] Co dical VICTORY 802 [facility] 2020-06-13 2020-06-13 Outpatient R [facility] [id number] Univers 13:06:54 13:06:54 HANNAK ity of [facility] 2020-06-13 2020-06-13 [facility] 1.2.718.803 [id number] Univers 13:06:54 13:06:54 Encounter Sathya Fu SPECIALTY 350.1.13.10 ity of CARE 4.2.7.2.[place] C[place] [phone] Co dical CHADY 802 [facility] 2020-06-10 2020-06-10 Orders Doctor REDDY 1.2.840.114 [id number] Univers 00:00:00 00:00:00 Only Unassigned, JASON 350.1.13.10 ity of [place] [facility] 4.2.7.2.686 Emmanuel as [phone] [address] 2020-06-07 2020-06-07 Refjj [facility] 1.2.840.114 [id number] Univers 00:00:00 00:00:00 Cristina Madrigal 350.1.13.10 [place] of [place].2.[place].2.[place] [phone] Co dical nal 059 [facility] 2020-06-01 2020-06-01 Telephone [facility] 1.2.840.114 [id number] Univers 00:00:00 00:00:00 Sathya Fu SPECIALTY 350.1.13.10 ity of CARE 4[place]2.7.2.[place] [phone] Co dicrachel CHADPerry 201 [facility] 2020-05-31 2020-05-31 Office [facility] 1.2.840.114 [id number] Univers 13:58:50 14:29:43 Visit Estephania Madrigal 350.1.13.10 [place].2.7.2.[place] [phone] Co dical nal 059 [facility] 2020-05-31 2020-05-31 Outpatient [facility] [id number] Univers 14:00:00 14:00:00 SENDIL ity [facility] 2020-05-19 2020-05-19 Office Jazz [facility] 1.2.840.114 [id number] Univers 13:08:36 14:28:05 Visit Sathya Fu SPECIALTY 350.1.13.10 ity of C[place]2.7.2.[place] [phone] Co shakir CODYPerry [address] [place] [address] 2020-05-19 2020-05-19 Outpatient R JAZZ [facility] [id number] Univers 13:15:00 13:15:00 JACKWIK ity [facility] 2020-05-19 2020-05-19 Letter Jazz [facility] 1.2.840.114 [id number] Univers 00:00:00 00:00:00 (Out) Sathya Fu SPECIALTY 350.1.13.10 ity of C[place]2.[place].2.[place] [phone] Co shakir URIBE [address] [place] [address] 2020-05-19 2020-05-19 Orders Doctor REDDY 1.2.840.114 [id number] Univers 00:00:00 00:00:00 Only Unassigned, JASON 350.1.13.10 ity of [place] [facility] 4.2.7.2.686 Emmanuel as [phone] [address] 2020-05-19 2020-05-19 Outpatient STLMLC STLMLC [id number] Common 00:00:00 00:00:00 [facility] 2020-05-11 2020-05-11 Orders Doctor REDDY 1.2.840.114 [id number] Univers 00:00:00 00:00:00 Only Unassigned, JASON 350.1.13.10 ity of [place] [facility] 4.2.7.2.686 Emmanuel as [phone] [address] 2020-05-11 2020-05-11 Outpatient STLMLC STLMLC [id number] Common 00:00:00 00:00:00 [facility] 2020-05-10 2020-05-10 Outpatient STLMLC STLMLC [id number] Common 00:00:00 00:00:00 [facility] 2020-05-09 2020-05-09 Outpatient STLMLC STLMLC [id number] Common 00:00:00 00:00:00 [facility] 2020-05-02 2020-05-02 Outpatient STLMLC STLMLC [id number] Common 00:00:00 00:00:00 [facility] 2020-04-26 2020-04-26 Telephone [facility] 1.2.223.557 [id number] Univers 00:00:00 00:00:00 Qiangjun [place] 350.1.13.10 [place] [phone] Co dic[address] 2020-04-26 2020-04-26 Refill [facility] 1.2.840.114 [id number] Univers 00:00:00 00:00:00 Qiangjun [place] 350.1.13.10 [place].2.[place] [phone] Co dic[address] 2020-03-31 2020-03-31 Outpatient STLMLC STLMLC [id number] Common 00:00:00 00:00:00 [facility] 2020-03-23 2020-03-23 Outpatient [facility] [id number] Univers 15:00:00 15:00:00 CRISTINA ho o f [facility] 2020-03-21 2020-03-21 Outpatient STLMLC STLMLC [id number] Common 00:00:00 00:00:00 [facility] 2020-03-21 2020-03-21 Outpatient STLMLC STLMLC [id number] Common 00:00:00 00:00:00 [facility] 2020-02-01 2020-02-01 Outpatient STLMLC STLMLC [id number] Common 00:00:00 00:00:00 [facility] 2020-01-29 2020-01-29 Outpatient STLMLC STLMLC [id number] Common 00:00:00 00:00:00 [facility] 2020-01-27 2020-01-27 Outpatient STLMLC STLMLC [id number] Common 00:00:00 00:00:00 [facility] 2020-01-26 2020-01-26 Outpatient STLMLC STLMLC [id number] Common 00:00:00 00:00:00 [facility] 2020-01-07 2020-01-07 Outpatient STLMLC STLMLC [id number] Common 00:00:00 00:00:00 [facility] 2020-01-06 2020-01-06 Outpatient STLMLC STLMLC [id number] Common 00:00:00 00:00:00 [facility] 2020-01-04 2020-01-04 Outpatient R [facility] [id number] Univers 00:00:00 00:00:00 CRISTINA ho o [facility] 2019-12-28 2019-12-28 Outpatient [facility] [id number] Univers 00:00:00 00:00:00 CRISTINA ho o [facility] 2019-12-24 2019-12-24 Telephone [facility] 1.2.724.281 [id number] Univers 00:00:00 00:00:00 Cristina Castilloton 350.1.13.10 [place] [phone] Co dical nal [address] [place] [address] 2019-12-22 2019-12-22 Office [facility] 1.2.840.114 [id number] Univers 16:16:32 16:44:34 Visit Cristina [place] 350.1.13.10 [place]2.[place].2.[place] [phone] Co dical nal [address] [place] [address] 2019-12-22 2019-12-22 Outpatient R [facility] [id number] Univers 16:40:00 16:40:00 CRISTINA montesy o [facility] 2019-12-17 2019-12-17 Outpatient STLMLC STLMLC [id number] Common 00:00:00 00:00:00 [facility] 2019-12-14 2019-12-14 Outpatient STLMLC STLC [id number] Common 00:00:00 00:00:00 [facility] 2019-12-10 2019-12-10 Telephone Han [facility] 1.2.575.038 [id number] Univers 00:00:00 00:00:00 Amritzoltanjimenez [place] 350.1.13.10 [place] of [place].2.[place] [phone] Co dical nal 059 [facility] 2019-12-08 2019-12-09 Emergency Serg Ellison [facility] 1.2.840. 114 [id number] Univers 18:15:00 16:02:00 Ilana Beal 350.1.13.10 ity of [place].2.[place] [phone] [facility] [address] [place] 2019-12-08 2019-12-08 Orders Doctor REDDY 1.2.840.114 [id number] Univers 00:00:00 00:00:00 Only Unassigned, JASON 350.1.13.10 ity of [place] [facility] 4.2.7.2.686 Emmanuel as [phone] [facility] [address] [place] 2019-11-01 2019-11-01 Emergency [facility] 1.2.001.481 [id number] Univers 21:14:00 22:39:00 Jennifer Madrigal 350.1.13.10 i ty of [place]2.[place].2.[place] [phone] [facility] [address] [place] 2019-08-10 2019-08-10 Refill [facility] 1.2.840.114 [id number] Univers 00:00:00 00:00:00 Fabriziojimenez [place] 350.1.13.10 [place] of [place].2.[place] [phone] Co dical nal 059 [facility] 2019-07-15 2019-07-15 Outpatient [facility] [id number] Common 13:15:00 13:15:[address] [facility] 2019-07-14 2019-07-14 Outpatient R HAN [facility] [id number] Univers 13:20:00 13:20:00 CRISTINA ity o f [facility] 2019-07-14 2019-07-14 Telemedici [facility] 1.2.840.114 [id number] Univers 07:59:51 08:19:51 ne Visit Cristina Madrigal 350.1.13.10 [place] [phone] Co dical nal 059 [facility] 2019-06-25 2019-06-25 Telephone [facility] 1.2.767.580 [id number] Univers 00:00:00 00:00:00 Cristina Madrigal 350.1.13.10 [place] [phone] [facility] nal 9 [facility] 2019-06-24 2019-06-24 Outpatient R MAMADOU ARANA [facility] [id number] Univers 13:30:00 13:30:00 MAMADOU ARANA ity [facility] 2019-06-24 2019-06-24 Telemedici [facility] 1.2.840.114 [id number] Univers 09:31:59 09:46:59 ne Visit Mamadou Madrigal 350.1.13.10 [place] [phone] Co dical nal 085 [facility] 2019-06-24 2019-06-24 Telephone [facility] 1.2.326.081 [id number] Univers 00:00:00 00:00:00 Cristina Madrigal 350.1.13.10 [place].2.[place] [phone] Co dicms nal 059 [facility] 2019-06-19 2019-06-19 Orders Doctor BLAKELY 1.2.840.114 [id number] Univers 00:00:00 00:00:00 Only Unassigned, JASON 350.1.13.10 [facility] 4.2.7.2.686 Emmanuel as [phone] [address] 2019-06-17 2019-06-17 Outpatient R MAMADOU ARANA [facility] [id number] Univers 10:00:00 10:00:00 IMELDA ARANAPETERGianluca ity of [facility] 2019-06-17 2019-06-17 Telemedic [facility] 1.2.840.114 [id number] [facility] 07:59:54 08:29:54 ne Visit [facility] Willem [place] 350.1.13.10 it[place] of [place].2.[place] [phone] Co dical nal 085 [facility] 2019-05-11 2019-05-11 Outpatient Casa Cormiert [id number] Common 15:30:00 15:30:00 t Bone Bone and Spiri t and Joint [facility] 2019-05-04 2019-05-04 Outpatient [facility] [id number] Common 09:30:00 09:30:00 t Bone Bone and Spiri t and Joint [facility] 2019-04-30 2019-04-30 Refill [facility] 1.2.840.[id number] [place] [address] 00:00:00 00:00:00 Cristina Madrigal 350.1.13.10 [place] [phone] Co dical nal 059 [facility] 2019-04-27 2019-04-27 Outpatient [facility] [id number] Common 15:30:00 15:30:00 t Bone Bone and Spiri t and Joint [facility] - [facility] 2019-04-20 2019-04-20 Telephone [facility] 1.2.004.529 [id number] Univers 00:00:00 00:00:00 Qiangjun [place] 350.1.13.10 it[place] [phone] Co dical nal 059 [facility] 2019-04-16 2019-04-16 Outpatient [facility] [id number] Common 13:00:00 13:00:[address] [facility] 2019-04-15 2019-04-15 Office [facility] 1.2.840.[id number] [place] [address] 13:55:26 14:36:48 Visit Cristina Madrigal 350.1.13.10 [place] [phone] Co dical nal 059 [facility] 2019-04-15 2019-04-15 Orders Doctor BLAKELY 1.2.840.114 [id number] Univers 00:00:00 00:00:00 Only Unassigned, JASON 350.1.13.10 [facility] 4.2.7.2.686 Emmanuel as [phone] [address] 2019-04-08 2019-04-08 Outpatient [facility] [id number] Common 16:19:00 16:19:00 t Bone Bone and Spiri t and Joint [facility] - [facility] 2019-04-07 2019-04-07 Outpatient [facility] [id number] Common 08:00:00 08:00:00 t Bone Bone and Spiri t and Joint [facility] 2019-04-06 2019-04-06 Refill [facility] 1.2.840.[id number] [place] [address] 00:00:00 00:00:00 Cristina Madrigal 350.1.13.10 [place] [phone] Co dical nal 059 [facility] 2019-04-02 2019-04-02 Outpatient [facility] [id number] Common 11:30:00 11:30:00 t myDocket [facility] it Drive [facility] 2019-04-02 2019-04-02 Refill [facility] 1.2.840.114 [id number] Univers 00:00:00 00:00:00 Cristina Madrigal 350.1.13.10 [facility] 4.2.7.2.686 Christos kim Dexter [phone] [place] 788569 [facility] 2019-03-31 2019-03-31 Outpatient [facility] [id number] Common 16:13:00 16:13:00 t Bone Bone and Spiri t and Joint [facility] 2019-03-26 2019-03-26 Outpatient [facility] [id number] Common 13:16:00 13:16:[address] [facility] 2019-03-26 2019-03-26 Outpatient [facility] [id number] Common 12:59:00 12:59:00 t Bone Bone and Spiri t and Joint [facility] 2019-03-05 2019-03-05 Outpatient [facility] [id number] Common 08:38:00 08:38:00 t Bone Bone and Spiri t and Joint [facility] 2019-03-04 2019-03-04 Outpatient [facility] [id number] Common 09:30:00 09:30:00 t Bone Bone and Spiri t and Joint [facility] 2019-03-03 2019-03-03 [facility] [id number] Common 16:25:00 16:25:00 t Bone Bone and Spiri t and Joint [facility] 2019-02-26 2019-02-26 [facility] [id number] Common 09:10:00 09:10:00 t Bone Bone and Spiri t and Joint [facility] 2019-02-13 2019-02-13 [facility] [id number] Common 13:36:00 13:36:[address] [facility] 2019-02-11 2019-02-11 [facility] [id number] Common 11:21:00 11:21:00 t Bone Bone and Spiri t and Joint [facility] 2019-02-09 2019-02-09 [facility] [id number] Common 14:30:00 14:30:00 t Bone Bone and Spiri t and Joint [facility] 2019-02-09 2019-02-09 Orders Doctor BLAKELY [id number] Univers 00:00:00 00:00:00 Only Unassigned, JASON [id number] [facility] [id number] Emmanuel as [id number] [place] [id number] [place] 2019-02-05 2019-02-05 [id number] Common 13:45:00 13:45:[address] [facility] 2019-01-28 2019-01-28 [id number] Common 07:54:00 07:54:00 t Bone Bone and Spiri t and Joint [facility] - [facility] 2019-01-26 2019-01-26 [facility] 28 [id number] Common 15:10:00 15:10:[address] [facility] 2019-01-21 2019-01-21 Outpatient [place] [facility] [id number] Common 13:00:00 13:00:00 t [address] [facility] 2018-12-24 2018-12-24 Refill Han HIMARQUITA [id number] [facility] 00:00:00 00:00:00 Cristina Madrigal 350.1.13.10 ity [facility] 4.2.7.2.686 Christos Johnsonessio [phone] [address] 2018-10-15 2018-10-15 Telephone VIDA Short [id number] Univers 00:00:00 00:00:00 Cristina Madrigal 350.1.13.10 [facility] 4.2.7.2.686 Christos kim Dexter [id number] Co dical nal 059 [facility] 2018-02-03 2018-02-03 Outpatient [facility] [id number] Common 16:06:00 16:06:00 t myDocket Spir it Astonish Results [facility] 2015-01-29 2015-01-29 Emergency X DANIEL III, [facility] ERT [id number] Univers 15:16:12 17:44:00 [facility] Test Description Test Time Test Comments Results Result Comments Source POCT GLUCOSE (AUTOMATED) 2022-09-21 12:27:31 Test Item Value Reference Range Interpretation Comme nts POCT GLU (test code = 3876036237) 107 mg/dL 70-110 Lab Interpretation (test code = 29758-4) Normal [facility] GLUCOSE (AUTOMATED)2022-09-21 01:23:47 Test Item Value Reference Range Interpretation Comments POCT GLU (test code = 9922601100) 154 mg/dL 70-110 H Lab Interpretation (test code = Abnormal 04108-6) [facility] GLUCOSE (AUTOMATED)2022-09-20 21:26:33 Test Item Value Reference Range Interpretation Comments POCT GLU (test code = 0604599757) 106 mg/dL 70-110 Lab Interpretation (test code = Normal 06709-1) [facility] GLUCOSE (AUTOMATED)2022-09-20 17:32:39 Test Item Value Reference Range Interpretation Comments POCT GLU (test code = 6211419883) 89 mg/dL 70-110 Lab Interpretation (test code = Normal 30256-0) [facility] GLUCOSE (AUTOMATED)2022-09-20 15:21:21 Test Item Value Reference Range Interpretation Comments POCT GLU (test code = 1464392702) 95 mg/dL 70-110 Lab Interpretation (test code = Normal 19061-4) [facility] GLUCOSE (AUTOMATED)2022-09-20 12:13:00 Test Item Value Reference Range Interpretation Comments POCT GLU (test code = 7578061763) 151 mg/dL 70-110 H Lab Interpretation (test code = Abnormal 04993-0) [facility] GLUCOSE (AUTOMATED)2022-09-20 01:35:27 Test Item Value Reference Range Interpretation Comments POCT GLU (test code = 4570724422) 130 mg/dL 70-110 H Lab Interpretation (test code = Abnormal 77692-9) [facility] GLUCOSE (AUTOMATED)2022-09-19 21:54:05 Test Item Value Reference Range Interpretation Comments POCT GLU (test code = 4163747775) 125 mg/dL 70-110 H Lab Interpretation (test code = Abnormal 75102-5) [facility] GLUCOSE (AUTOMATED)2022-09-19 16:41:42 Test Item Value Reference Range Interpretation Comments POCT GLU (test code = 0097453612) 145 mg/dL 70-110 H Lab Interpretation (test code = Abnormal 65360-2) [facility] GLUCOSE (AUTOMATED)2022-09-19 13:06:33 Test Item Value Reference Range Interpretation Comments POCT GLU (test code = 5330285497) 105 mg/dL 70-110 Lab Interpretation (test code = Normal 47097-7) [facility] GLUCOSE (AUTOMATED)2022-09-19 01:38:07 Test Item Value Reference Range Interpretation Comments POCT GLU (test code = 2459018236) 93 mg/dL 70-110 Lab Interpretation (test code = Normal 16877-8) [facility] GLUCOSE (AUTOMATED)2022-09-18 22:15:01 Test Item Value Reference Range Interpretation Comments POCT GLU (test code = 1687563843) 90 mg/dL 70-110 Lab Interpretation (test code = Normal 13683-9) [facility] GLUCOSE (AUTOMATED)2022-09-18 17:13:29 Test Item Value Reference Range Interpretation Comments POCT GLU (test code = 0941602137) 98 mg/dL 70-110 Lab Interpretation (test code = Normal 38622-4) [facility] GLUCOSE (AUTOMATED)2022-09-18 13:09:35 Test Item Value Reference Range Interpretation Comments POCT GLU (test code = 0486504733) 110 mg/dL 70-110 Lab Interpretation (test code = Normal 35610-5) [facility]. METABOLIC PANEL (57804)2022-09-18 05:11:35 Test Item Value Reference Range Interpretation Comments NA (test code = 141 mmol/L 135-145 2815495750) K (test code = 3.3 mmol/L 3.5-5.0 L 4791758358) CL (test code = 108 mmol/L 98-108 6174032630) CO2 TOTAL (test code = 24 mmol/L 23-31 2510292532) AGAP (test code = 9 2-16 2915931197) BUN (test code = 25 mg/dL 7-23 H 0069260991) GLUCOSE (test code = 121 mg/dL 70-110 H 8190239135) CREATININE (test code = 1.84 mg/dL 0.50-1.04 H 0460952376) TOTAL BILI (test code = 0.4 mg/dL 0.1-1.6 6524085500) CALCIUM (test code = 9.2 mg/dL 8.6-10.6 3284438214) T PROTEIN (test code = 7.8 g/dL 6.3-8.2 4321828455) ALBUMIN (test code = 4.1 g/dL 3.5-5.0 3773909787) ALK PHOS (test code = 101 U/L 34-122 5748911321) ALTv (test code = 29 U/L 5-35 2-6) AST(SGOT) (test code = 28 U/L 13-40 0986759916) eGFR (test code = 28.4 mL/min/1.73m2 0938584042) JOSR (test code = JOSR) Association of [...] tests). Lab Interpretation Abnormal (test code = 65659-5) [facility] / [id number] 05:07:52 Test Item Value Reference Range Interpretation Comments PROTIME PATIENT (test 13.9 See_Comment H [Auto mated message] code = 5964-2) The system [employer] ich generated this result transmitted ref erence range: 10.1 - 1 2.6 Seconds. The reference range was not used to int erpret this result as normal/abnormal . INR (test code = 6301-6) 1.2 Nor mal INR <1.1; Warfarin Therap eutic range 2.0 to 3. 0 or 2.5 to 3.5, dep ending upon the indica tions. Lab Interpretation (test Abnormal code = 67974-3) [facility] [id number] 04:55:51 Test Item Value Reference Range Interpretation Comments WBC (test code = 8.63 See_Comment [Automated 4090-2) message] The sy stem which generated this result transmitted reference range : 4.30 - 11.10 10*3/?L. The reference range was not used to interpret this result as normal/abnormal . RBC (test code = 3.67 See_Comment L [Automated 319-8) message] The sy stem which generated this result transmitted reference range : 3.93 - 5.25 10*6/?L. The reference range was not used to interpret this result as normal/abnormal . HGB (test code = 11.1 g/dL 11.6-15.0 L 718-7) HCT (test code = 33.4 % 35.7-45.2 L 4544-3) MCV (test code = 91.0 fL 80.6-95.5 787-2) MCH (test code = 30.2 pg 25.9-32.8 785-6) MCHC (test code = 33.2 g/dL 31.6-35.1 786-4) RDW-SD (test code = 44.5 fL 39.0-49.9 50653-2) RDW-CV (test code = 13.3 % 12.0-15.5 788-0) PLT (test code = 277 See_Comment [Automated 777-3) message] The sy stem which generated this result transmitted reference range : 166 - 358 10*3/ ?L. The reference r zain was not used to interpret this result as normal/abnormal . MPV (test code = 10.3 fL 9.5-12.9 76369-6) NRBC/100 WBC (test 0.0 See_Comment [Automat ed code = 4225671856) message] The system which generated this result transmitted reference range : 0.0 - 10.0 /100 WBCs. The refer ence range was not u sed to interpret th is result as normal/abnormal . NRBC x10^3 (test code See_Comment [Auto mated = 4061505457) message] The s ystem which generated this result transmitted reference range : 10*3/?L. The reference range was not used to interpret this result as normal/abnormal . GRAN MAT (NEUT) % 68.4 % (test code = 770-8) IMM GRAN % (test code 0.30 % = 4553484235) LYMPH % (test code = 25.8 % 736-9) MONO % (test code = 3.9 % 5905-5) EOS % (test code = 1.4 % 713-8) BASO % (test code = 0.2 % 706-2) GRAN MAT x10^3(ANC) 5.89 10*3/uL 1.88-7.09 (test code = 1473918916) IMM GRAN x10^3 (test 0.03 10*3/uL 0.00-0.06 code = 0732771803) LYMPH x10^3 (test code 2.23 10*3/uL 1.32-3.29 = 731-0) MONO x10^3 (test code 0.34 10*3/uL 0.33-0.92 = 742-7) EOS x10^3 (test code = 0.12 10*3/uL 0.03-0.39 711-2) BASO x10^3 (test code 0.01-0.07 = 704-7) Lab Interpretation Abnormal (test code = 06149-7) [facility] [id number] 00:30:18 Test Item Value Reference Range Interpretation Comments ANTIGEN ID (test K Antigen Negative Perfo rmed at [facility] code = 1688) Laboratory [facility] Blood [facility] [address] [facility] s [address]Eaec Free: [phone] A No. [id number] [facility] [id number] 20:20:46 Test Item Value Reference Range Interpretation Comments ANTIBODY ID (test code Anti-K Perfo rmed at [facility] = 245) Laboratory [facility] Blood [facility]3 [address] [facility] s [address]Dhqp Free: [phone] A No. [id number] [facility] [id number] 20:20:46 Test Item Value Reference Range Interpretation Comments ANTIBODY ID (test code Anti-K Perfo rmed at [facility] = 245) Laboratory [facility] Blood [facility]3 [address] [facility] s [address]Vkih Free: [phone] A No. [id number] [facility] GLUCOSE (AUTOMATED)2022-08-29 14:15:00 Test Item Value Reference Range Interpretation Comments POCT GLU (test code = 7042529060) 110 mg/dL 70-110 Lab Interpretation (test code = Normal 74970-1) [facility] GLUCOSE (AUTOMATED)2022-08-29 14:15:00 Test Item Value Reference Range Interpretation Comments POCT GLU (test code = 9819541556) 110 mg/dL 70-110 Lab Interpretation (test code = Normal 24259-9) [facility]. METABOLIC PANEL (06535)2022-08-11 00:51:46 Test Item Value Reference Range Interpretation Comments NA (test code = 140 mmol/L 135-145 8375258554) K (test code = 3.6 mmol/L 3.5-5.0 5778460502) CL (test code = 105 mmol/L 98-108 1134401753) CO2 TOTAL (test code = 26 mmol/L 23-31 9253179082) AGAP (test code = 9 2-16 4916752878) BUN (test code = 25 mg/dL 7-23 H 8328682514) GLUCOSE (test code = 92 mg/dL 70-110 4290246481) CREATININE (test code = 2.35 mg/dL 0.50-1.04 H 6785487147) TOTAL BILI (test code = 0.7 mg/dL 0.1-1.5 3558542190) CALCIUM (test code = 9.5 mg/dL 8.6-10.6 2979626516) T PROTEIN (test code = 7.6 g/dL 6.3-8.2 1248031842) ALBUMIN (test code = 4.1 g/dL 3.5-5.0 4646585942) ALK PHOS (test code = 90 U/L 34-122 5708016041) ALTv (test code = 30 U/L 5-35 2-6) AST(SGOT) (test code = 34 U/L 13-40 3464207910) eGFR (test code = 21.4 mL/min/1.73m2 4290191760) JOSR (test code = JOSR) Association of [...] tests). Lab Interpretation Abnormal (test code = 87102-9) [facility] WITH [id number] 00:37:47 Test Item Value Reference Range Interpretation Comments WBC (test code = 9.29 See_Comment [Automated 2397-2) message] The sy stem which generated this result transmitted reference range : 4.30 - 11.10 10*3/?L. The reference range was not used to interpret this result as normal/abnormal . RBC (test code = 3.81 See_Comment L [Automated 119-8) message] The sy stem which generated this result transmitted reference range : 3.93 - 5.25 10*6/?L. The reference range was not used to interpret this result as normal/abnormal . HGB (test code = 11.3 g/dL 11.6-15.0 L 718-7) HCT (test code = 33.7 % 35.7-45.2 L 4544-3) MCV (test code = 88.5 fL 80.6-95.5 787-2) MCH (test code = 29.7 pg 25.9-32.8 785-6) MCHC (test code = 33.5 g/dL 31.6-35.1 786-4) RDW-SD (test code = 43.9 fL 39.0-49.9 45350-4) RDW-CV (test code = 13.6 % 12.0-15.5 788-0) PLT (test code = 332 See_Comment [Automated 777-3) message] The sy stem which generated this result transmitted reference range : 166 - 358 10*3/ ?L. The reference r zain was not used to interpret this result as normal/abnormal . MPV (test code = 10.6 fL 9.5-12.9 58736-8) NRBC/100 WBC (test 0.0 See_Comment [Automat ed code = 0110567519) message] The system which generated this result transmitted reference range : 0.0 - 10.0 /100 WBCs. The refer ence range was not u sed to interpret th is result as normal/abnormal . NRBC x10^3 (test code See_Comment [Auto mated = 4123810994) message] The s ystem which generated this result transmitted reference range : 10*3/?L. The reference range was not used to interpret this result as normal/abnormal . GRAN MAT (NEUT) % 69.4 % (test code = 770-8) IMM GRAN % (test code 0.40 % = 9240348764) LYMPH % (test code = 24.7 % 736-9) MONO % (test code = 3.8 % 5905-5) EOS % (test code = 1.5 % 713-8) BASO % (test code = 0.2 % 706-2) GRAN MAT x10^3(ANC) 6.45 10*3/uL 1.88-7.09 (test code = 7420177382) IMM GRAN x10^3 (test 0.04 10*3/uL 0.00-0.06 code = 3769242142) LYMPH x10^3 (test code 2.29 10*3/uL 1.32-3.29 = 731-0) MONO x10^3 (test code 0.35 10*3/uL 0.33-0.92 = 742-7) EOS x10^3 (test code = 0.14 10*3/uL 0.03-0.39 711-2) BASO x10^3 (test code 0.01-0.07 = 704-7) Lab Interpretation Abnormal (test code = 22847-6) [facility]. METABOLIC PANEL (38311)2022-02-23 02:47:57 Test Item Value Reference Range Interpretation Comments NA (test code = 141 mmol/L 135-145 2177998515) K (test code = 4.1 mmol/L 3.5-5.0 9957212859) CL (test code = 108 mmol/L 98-108 6077633422) CO2 TOTAL (test code = 23 mmol/L 23-31 4425939434) AGAP (test code = 2-16 5043100017) BUN (test code = 15 mg/dL 7-23 1077687953) GLUCOSE (test code = 104 mg/dL 70-110 7479798091) CREATININE (test code = 1.18 mg/dL 0.50-1.04 H 0446801498) TOTAL BILI (test code = 0.4 mg/dL 0.1-1.7 9329905218) CALCIUM (test code = 9.8 mg/dL 8.6-10.6 6253031367) T PROTEIN (test code = 8.0 g/dL 6.3-8.2 7392908664) ALBUMIN (test code = 4.5 g/dL 3.5-5.0 8325880398) ALK PHOS (test code = 117 U/L 34-122 7737882678) ALTv (test code = 42 U/L 5-35 H 1742-6) AST(SGOT) (test code = 48 U/L 13-40 H 6692075738) eGFR (test code = mL/min/1.73m2 5378355857) JOSR (test code = JOSR) Association of [...] tests). Lab Interpretation Abnormal (test code = 46324-0) [facility] [id number] 01:55:29 Test Item Value Reference Interpretation Comments Range TROPONIN I (test 0.029 ng/mL See_Comment [Automated code = 0624907163) message] The system which generated this result [...] biotin. Lab Interpretation Normal (test code = 16191-4) [facility] [id number] 01:52:12 Test Item Value Reference Range Interpretation Comments NT-proBNP (test code 131 pg/mL See_Comment H [Autom ated = 5604902667) message] The system which generated this result transmitted reference range : <=125. The reference range was not used to interpret this result as normal/abnormal . JOSR (test code = JOSR) Biotin has been reported to cause a negative bias, interpret results relative to patient's use of biotin. Lab Interpretation Abnormal (test code = 29487-8) [facility]2022-[facility]-30 01:43:29 Test Item Value Reference Range Interpretation Comments LIPASE (test code = 6032728599) 284 U/L 0-220 H Lab Interpretation (test code = Abnormal 19553-2) [facility] WITH [id number] 01:30:47 Test Item Value Reference Range Interpretation Comments WBC (test code = See_Comment [Automated 6690-2) message] The sy stem which generated this result transmitted reference range : 4.30 - 11.10 10*3/?L. The reference range was not used to interpret this result as normal/abnormal . RBC (test code = See_Comment [Automated 789-8) message] The sy stem which generated this [...] RDW-SD (test code = 43.1 fL 39.0-49.9 32264-9) RDW-CV (test code = 13.3 % 12.0-15.5 788-0) PLT (test code = See_Comment [Automated 777-3) message] The sy stem which generated this result transmitted reference range : 166 - 358 10*3/ ?L. The reference r zain was not used to interpret this result as normal/abnormal . MPV (test code = 11.0 fL 9.5-12.9 88623-4) NRBC/100 WBC (test See_Comment [Automat ed code = 2260825155) message] The system which generated this result transmitted reference range : 0.0 - 10.0 /100 WBCs. The refer ence range was not u sed to interpret th is result as normal/abnormal . NRBC x10^3 (test code See_Comment [Auto mated = 3090622713) message] The s ystem which generated this result transmitted reference range : 10*3/?L. The reference range was not used to interpret this result as normal/abnormal . GRAN MAT (NEUT) % 56.5 % (test code = 770-8) IMM GRAN % (test code 0.10 % = 9013786254) LYMPH % (test code = 37.7 % 736-9) MONO % (test code = 3.6 % 5905-5) EOS % (test code = 1.7 % 713-8) BASO % (test code = 0.4 % 706-2) GRAN MAT x10^3(ANC) 3.94 10*3/uL 1.88-7.09 (test code = 7057026560) IMM GRAN x10^3 (test 0.00-0.06 code = 9084406520) LYMPH x10^3 (test code 2.63 10*3/uL 1.32-3.29 = 731-0) MONO x10^3 (test code 0.25 10*3/uL 0.33-0.92 L = 742-7) EOS x10^3 (test code = 0.12 10*3/uL 0.03-0.39 711-2) BASO x10^3 (test code 0.03 10*3/uL 0.01-0.07 = 704-7) Lab Interpretation Abnormal (test code = 96232-0) [facility] Consult Notes Date/Time Note Provider Source 2022-09-19 0545-70-52L39:21:33Associated Lou Mcmahon RN [facility] 15:21:33 Order(s): CONSULT GEM [employer] CUTTER-ADULT [employer] Update CM consulted for: Reason for consult - please give recommendation or opinion on: TLSO DME order sent to [facility] [address] [address] [place] [address] P: [phone] F: [phone] Lou Mcmahon RN, BSN [facility] CenterCare [email or web address] [phone] Fax 43810-8Djibogx kjekNE6938-85-17Y57:23:42Consult noteTXT1.2.840.779366.1.13.104.2.7.2. 068544|[id number] for patient [id number] Salome RN[address] LktgJspeibkzuEcvlzzszbQZBZ4646062032C APBZROQEUCFOBCETBUYGH4518-30-40M45:23 :421.2.840.021129.1.72.3.15|1.2.840.1 [id number] 0 2022-09-18 8956-07-46Z15:39:00Associated [facility] 11:39:00 Order(s): CONSULT ADULT PHYSICAL THERAPY Patient agreeable to working with physical therapy. Patient met supine.Co-eval with DIOGENES Farley for assistance with gait anticipated low level of activity and endurance.Recommend nursing staff utilize rolling walker to safely assist patient with mobility out of the bed or chair.PHYSICAL THERAPY EVALUATIONConsult received, chart reviewed and evaluation complete this date. Patient is referred to PT for evaluation and treatment. Patient is a 56 year old female who presents to hospital for Fall, initial encounter [W19.XXXA] . Pt with PMH of L4/L5 laminectomy on 08/29/22. Presented to [facility] after a fall and found to have L5/L5 fractures on CT. Discharge Recommendations: Therapy Needs and Potential:Patient would benefit from continued physical therapy services to address: decline in bed mobility decline in transfers decline in gait and/or balance decreased strength decreased endurancePatient demonstrates good potential to improve and meet therapy goals with further physical therapy services.Patient appears motivated to improve their functional mobility and return to their previous level of function.Patient demonstrates ability to tolerate atleast 30-60 minutes of physical therapy with active participation.Challenges to Home Transition: increased risk of fallsdecreased caregiver availabilitydecreased safety awarenessenvironmental barriersEquipment recommendations:rolling walker pt has rollator at home. Current Functional Status and/or Treatment: AM-PAC 6 Clicks (Raw Score 0=Dependent, 24=Independent; Low function Raw Score 0= Dependent, 32=Independent):Raw Score: 17T-Scale Score: 39.67 Bed Mobility:Sitting balance FairSupine to sit: Minimal Assistance with log rollSit to supine: Minimal Assistance with log rollMinimal manual assist for rolling L/R and assistance provided to proximal trunk support during sitting upright. Required BUE support in sitting to maintain upright sitting, however after 30 secs pt able to decrease UE support on RW.Pt provided on education on spinal precautions. Transfers: Sit to stand: Minimal Assistance using Rolling WalkerStand to sit: Minimal Assistance using Rolling WalkerStatic/dynamic standing balance: Poor+Verbal cueing provided for correct hand placement and correct use of AD Pt with excessive forward leaning during transfers and UE support on firm surface.pt required 2 attempts to standIncreased c/o dizziness that resolves after 30 secs standing. Ambulation: Assisted patient with ambulation as follows: 5 feet using Rolling Walker and Minimal Assistance.Patient presenting with Step-through gait pattern. Minimal manual assistance provided for safe rolling walker advancement. Verbal cues to correct posture in stance and sequencing with ambulationPt had increased dizziness in ambulation 5 ft and required seated rest break. LOB noted during ambulation and required manual intervention to recover balance. Therapeutic exercise: patient educated in Adaptive equipment , Fall prevention, General strengthening, and Safety awareness., instructed patient in the following: ankle pumps, quad sets, glut sets, heel slides, straight leg raises, patient/caregiver instructed to perform HEP 3 times per day, 10-15 repetitions., and patient/caregiver verbalizes understanding of instructions.Functional Outcome Measures: (Values within the past 12 hours) Tinetti Gait Score- # / 12Initiation of gait: No hesitancyStep length: On both sides, swing foot passes stance footFoot clearance: Both feet completely clear floorStep Symmetry: Step lengths equalStep continuity: Steps appear continuousPath: Mild/moderate deviation or uses ADTrunk: Marked sway or uses ADWalking: Heels apartTinetti Gait Score: 8Tinetti Gait Score Interpretation: >= 7 - Low risk for fallsTINETTI BALANCE SCORE- # / 16Sitting balance: Steady, safeArises: Able, uses arms to helpAttempts to Rise: Able, requires > 1Immediate standing balance (first 5 sec): Steady but uses walker or other supportStanding Balance: Steady but BRY > 4 inches or uses AD/other supportNudged 3 times *: Staggers, grabs, catches selfEyes closed*: SteadyTurning 360 degrees: Either discontinuous or unsteadySitting down: Uses arms or motion not smoothTinetti Balance Score: 9Tinetti Balance Interpretation: >= 9 - Low risk for falls After session, patient up in chair. Call button provided. Nurse informed of pt positioning. PLAN OF CARE: While in the hospital, PT will follow patient at least 3 times per week,once or twice a day, per patient's tolerance and needs.See below for complete details. Admit Date: 09/17/2022 Hospital Diagnosis:Fall, initial encounter [W19.XXXA] PT Diagnosis: Difficulty walking, Weakness, Malaise/fatigue, and DyspneaWeight Bearing Precaution: NA General Precautions: PPE used:Gloves and Surgical mask, Log roll, Spinal precautions, General, Fall, Bracing/Cast present or required:N/APMH: Past Medical History: Diagnosis Date Bipolar disease, chronic Chronic pain Coronary-myocardial bridge DM (diabetes mellitus) High cholesterol HTN (hypertension) Obesity (BMI 30-39.9) Stroke 08/2015 tPa was given PSH: Past Surgical History: Procedure Laterality Date SECTION HAMMERTOE CORRECTION Left 07/22/2018 Surgeon: Andrew Romero Jr., DPM; Location: [facility] OR [facility] LAPAROSCOPIC GASTRIC SLEEVE (SHX) February 2015 LIPOMA EXCISION Left 07/15/2020 Surgeon: Sathya Schulz MD; Location: [facility] OR Location OTHER Uterine ablation POSTERIOR LAMINECTOMY Bilateral 08/29/2022 Surgeon: Chrissy Hagen MD; Location[facility] OR LOCATION WOUND DEBRIDEMENT N/A 10/02/2017 Surgeon: Chris Alvarado MD; Location: [facility] Prior Living Situation: lives alone and in downstairs apt, no steps to enterDME: Rolling WalkerPrior level of Mobility: community ambulation, house hold ambulation with rolling walkerSuspected ischemic or hemorraghic stroke:NoSubjective: pt has increased weakness with current gait distance. Patient/Family Goals: to return home safelyPatient/Family verbalizes understanding of condition: Yes PAIN: -Pain Description: aching-Pain Location: lower back-Pain rating before treatment: 9, After treatment: 9-Pain Management: Use of assistive device aides in pain reduction during mobility and Repositioning ProvidedCOMMUNICATIONPrimary Language: Occitan Able to Verbalize needs: Yes Vision:good; no issues reported Hearing:good; no issues reported ORIENTATION/COGNITION:Oriented to: person, place, date/time, and situation Awake: Yes Alert: Yes Dizzy: No Follows Commands: Yes 1-Step Yes Multi-Step Yes Inconsistent: No NEUROLOGICALLight Touch: within functional limits bilateral LE, Heel to ron: no evident coordination deficitTone: no evident coordination deficit BALANCE:Sitting: Static: Fair Dynamic: FairStanding: Static: Fair Dynamic: FairRANGE OF MOTION: within functional limits bilateral LE, Spinal precautions. STRENGTH: 4/5 (Good), bilateral LE grossly ENDURANCE: Fair, Room air SKIN INTEGRITY: s/p low back surgical incision, PROBLEM LIST: Decline in bed mobility, Decline in gait, Decline in transfers, Decreased strength, Decreased endurance, and Decreased balanceASSESSMENT: Patient is a 56 year old female seen secondary to the above listed diagnosis. Patient would benefit from continued PT to address the above listed deficits to maximize independence and safety with functional mobility.Rehabilitation Potential: fair Goals: The following goals are to maximize independence and safety with functional mobility to eventually return to prior living situation and prior functional status. Upon discharge, patient and/or family will demonstrate the followin. Supine to sit: IndependentSit to supine: Independent2. Sit to stand: Independent using Rolling WalkerStand to sit: Independent using Rolling Walker3. Independent with ambulation, Feet: 150 using least assistive device. 4. Demonstrate or verbalize understanding of home exercise program in order to continue with their rehab on their own.Treatment Plan: Gait training, Therapeutic exercise, Transfer training, Balance training, Neuromuscular Re-Education, and Functional Motor TrainingPATIENT EDUCATION: Patient provided with preferred teaching of verbal information on role of PT, plan of care, HEP and safety with ambulation in room.. Shows readiness to learn. Verbal instruction teaching provided. Individual is able to read and verbalizes understanding of teaching provided.Total Time Tx Codes in Minutes: 15 minTotal Treatment Time in Minutes: 28 minTotal time tx reflects one-on-one time spent with pt during Co-Evaluation with [facility] physical therapy evaluation of moderate complexity was completed based on meeting the criteria below:A history of present problem with at least 1-2 personal factors (includes environmental factors) and/or comorbidities that impact the plan of careAn examination of body systems using standardized tests and measures in addressing at least 3 or more elements from any of the following: body structures and functions, activity limitations and/or participation restrictionsAn evolving clinical presentation with changing characteristics [id number] gogbVE2314-33-49R88:37:06Consult [id number]. [id number] for patient [address] Ps[id number] XYIWBJWQAVJDAAISXJYMT7327-93-41G41:37 :061.2.840.360457.1.72.3.15|1.2.840.1 [id number] 3 2022-09-18 1675-23-32A82:37:00Associated [facility] 11:37:00 Order(s): CONSULT ADULT OCCUPATIONAL [place] O T THERAPY OT GENERAL EVALUATIONConsult received via Vault Dragon, EMR reviewed and evaluation completed 09/18/22. Patient referred to occupational therapy for evaluation and treatment secondary to fall. Patient agreeable to participate in occupational therapy. Patient seen for co-evaluation with Physical Therapist Joshua Cordon due to anticipated level of care and patient's ability to tolerate therapy. Discharge Recommendations:Therapy Needs and Potential:- Patient would benefit from continued skilled occupational therapy services to address: Decline in basic activities of daily living, Decline in instrumental activities of daily living, Decreased strength, Decreased endurance, and Caregiver training - Patient demonstrates good potential to improve and meet therapy goals with further skilled occupational therapy services.- Patient appears motivated to improve their B/IADLs and return to their previous level of function.- Patient demonstrates ability to tolerate at least 30-60 minutes of active participation in occupational therapy.- Patient exhibits limited activity tolerance.- Patient able to follow commands: 1-step Yes, Multi-step Yes, Inconsistencies NoChallenges to Home Transition:- Requires physical assistance for BADLS- Requires physical assistance for IADLS- No caregiver support- Increased risk of fallsEquipment Recommendations:NonePLAN OF CARE: At least 2x/week Precautions: Weight bearing status: No lifting greater than 8 lbs. General: PPE Utilized: Gloves, Fall, and spinalBracing: N/ACurrent Occupational Performance and/or Treatment:AM-PAC 6 Clicks (Raw Score 0=Dependent, 24=Independent; Low function Raw Score 0= Dependent, 32=Independent):Raw Score - Daily Activity: 18T-Scale Score - Daily Activity: 38.66 Feeding: Supervision, Grooming: Supervision, UB Dressing: Supervision, with pullover shirtLB Dressing: Maximum Assistance, to don B socks Toilet Transfer: Minimal Assistance, with simulated BSC transfer and rolling walkerToileting Hygiene: Minimal Assistance, with clothing management Functional Mobility: Min assist supine to sitting with log roll techniqueMin assist to stand with rolling walker and ambulate ~5' to bedside chairPatient/caregiver educated on:Fall prevention, General strengthening, Role of OT, Safety awareness, and Spinal precautionsPatient left sitting upright in bedside chair with call hernandez in reach. RITU LE elevated. Please, see full evaluation below for more detail. OT EVALUATION:56 year old female Admit date: 09/17/2022 Date of onset: 09/17/22Admit Diagnosis: Fall, initial encounter [W19.XXXA]OT Diagnosis: Impaired BADL independence, Impaired IADL independence, Decreased endurance, and Impaired self-care mobilityPMH: Past Medical History: Diagnosis Date Bipolar disease, chronic Chronic pain Coronary-myocardial bridge DM (diabetes mellitus) High cholesterol HTN (hypertension) Obesity (BMI 30-39.9) Stroke 08/2015 tPa was given PSH: Past Surgical History: Procedure Laterality Date SECTION HAMMERTOE CORRECTION Left 07/22/2018 Surgeon: Andrew Romero Jr., DPM; Location: [facility] OR Location LAPAROSCOPIC GASTRIC SLEEVE (SHX) February 2015 LIPOMA EXCISION Left 07/15/2020 Surgeon: Sathya Schulz MD; [facility]: [facility] OTHER Uterine ablation POSTERIOR LAMINECTOMY Bilateral 08/29/2022 Surgeon: Chrissy Hagen MD; Location: [facility] OR LOCATION WOUND DEBRIDEMENT N/A 10/02/2017 Surgeon: Chris Alvarado MD; Location: [facility] OR Location PAIN: Pain Location: lower backPain rating before treatment: 9, After treatment: 9Pain Management: Decreased movement aides in some pain reduction and Repositioning Provided OCCUPATIONAL ROLES/HOME ENVIRONMENT:Home environment: Lives alone and Downstairs apartment. Bathroom access: YesBathroom setup: ComboOccupation(s): Disabled since , drivesFunction prior to admission: Provider assistance every day for 4 hours, helps with IADLs. Independent with BADLs.Suspected ischemic or hemorraghic stroke patient: NoEquipment prior to admission: 4 wheeled walker, Shower chair , Straight CanePERFORMANCE SKILLS/FACTORS: UE Muscle Tone: bilateral WNLUE ROM: bilateral AROM WFL UE Strength: RITU UE WFLHand dominance: right Dexterity/Coordination: bilateral Gross motor skills Intact Endurance - Sitting: Fair+ Standing: FairSitting Balance - Static: Fair+ Dynamic: Fair+Standing: Balance - Static Fair+ Dynamic: FairDizziness: YesSkin Integrity: defer full skin assessment to nursingSensation: bilateral Intact to light touch Oral Motor: WFLCommunication: Able to verbalize needs Yes Other: N/AVision: WFL Yes Other: reading glassesHearing: good; no issues reportedCOGNITION: Orientation: person, place, date/time, and situationFollows Commands: 1-step Yes Multi-step Yes Inconsistencies NoSafety Awareness/Judgment: FairPROBLEM LIST: Decreased independence with ADL, Impaired postural control, and Decreased strength/endurance for functional activityREHAB POTENTIAL/PROGNOSIS: goodPATIENT/FAMILY GOALS: "to get in the shower"TREATMENT/INTERVENTION PLAN: Functional motor treatment, Patient/Caregiver Education, Equipment recommendations, Daily living activities, and Therapeutic exercisesGOAL(S): By discharge, patient will increase independence in daily living skills as follows: 1 Patient will perform toilet transfer with independence.2 Patient will perform LB dressing with independence. 3 Patient will complete toileting hygiene, including clothing management, with independence.4 Patient will increase endurance for functional activity as evidenced by ability to sustain 40 minutes of active participation. 5 Patient/caregiver will verbalize/demonstrate understanding/proficiency in the following home programs: Adaptive equipment , Compensatory techniques/adaptive strategies, Energy conservation, Fall prevention, General strengthening, Positioning, and Spinal PrecautionsPATIENT-FAMILY TEACHINGPatient provided with preferred teaching of verbal information on Role of OT. Shows readiness to learn. Verbal instruction teaching provided. Individual is able to read and verbalizes understanding of teaching provided.Marlyn Farley OTR, [facility] of Rehab ServicesTotal Timed Treatment Codes: 10 MinTotal Treatment Time: 22 MinPatient Complexity Level Moderate - An occupational therapy evaluation of moderate complexity was completed using the above tests and measures. The following information was obtained: An occupational profile and medical and therapy history, including an expanded review of medical and/or therapy records and additional review of physical, cognitive, or psychosocial history related to current functional performance, Various standardized and non-standardized assessments were used to identify at least 3-5 performance deficits related to physical, cognitive, or psychosocial skills that result in activity limitations and/or participation restrictions, and Clinical decision making of moderate analytic complexity, which includes an analysis of the occupational profile, analysis of data from detailed assessment(s), and consideration of several treatment options. Patient may present with comorbidities that affect occupational performance. Minimal to moderate modification of tasks or assistance (e.g., physical or verbal) with assessment(s) is necessary to enable patient to complete evaluation component. 72315-6Tjxfuyf qrzxOJ9399-94-10Y35:28:59Consult noteTXT1.2.840.479195.1.13.104.2.7.2. [id number] for patient [id number] M. [facility] [address] Ge[id number] GPGGDZQIWMGMCBLKHFBUW7976-62-28P41:28 :591.2.840.637886.1.72.3.15|1.2.840.1 [id number] 8 2022-09-18 4410-45-68O29:43:31Associated [facility] 05:43:31 Order(s): CONSULT NEUROSURGERY NEUROSURGERY CONSULTATION HISTORY AND PHYSICALAttending Neurosurgeon: Jeannie for Consultation: L45 fractureHPI: Georgie Helton is a 56 year old female, s/p L4-5 laminectomy , who is here after fall and sustaining fractures at L4-5 facet and L5 lamina. Had two mechanical falls since OR; last one yesterday when transferring from bed to stool; no head injury; no weakness/paresthesias/bowel or bladder issues; called ambulance just to get assessed b/c back pain and new RLE radic (not dermatomal specific).CT lumbar: frature R L45 facet, L L4 inferior articular process, and L5 lamina; no overt displacement of L4 over L5; Head/thoracic spine CT unimpressive for acute pathologyROS see aboveMedicationsNo current facility-administered medications on file prior to encounter. Current Outpatient Medications on File Prior to Encounter Medication Sig Dispense Refill ibuprofen 800 mg tablet Take 1 tablet by mouth every 8 (eight) hours as needed for Pain (scale 4-6) or Temp > 38.5 C. 21 tablet 0 ciprofloxacin HCl 500 mg tablet Take 1 tablet by mouth in the morning and 1 tablet in the evening. 20 tablet 0 cephALEXin (KEFLEX) 500 mg capsule Take 1 capsule by mouth 4 (four) times daily. 40 capsule 0 ondansetron 4 mg disintegrating tablet Take 1 tablet by mouth every 4 (four) hours as needed for Nausea and Vomiting (N/V). 20 tablet 0 allopurinoL 100 mg tablet TAKE 1 TABLET BY MOUTH EVERY DAY DIRECTED colchicine 0.6 mg tablet Take 1 tablet by mouth every morning. ELIQUIS 2.5 mg tablet ergocalciferol, vitamin d2, 1,250 mcg (50,000 unit) capsule FARXIGA 5 mg tablet lubiprostone 24 mcg capsule TAKE 1 CAPSULE BY MOUTH TWICE DAILY AROUND THE CLOCK OZEMPIC 0.25 mg or 0.5 mg(2 mg/1.5 mL) PnIj 0.5 mg. lactulose 10 gram/15 mL oral solution Take 30 mL by mouth 3 (three) times daily as needed for Constipation. 300 mL 1 sucralfate 1 gram tablet Take 1 tablet by mouth before meals and at bedtime. 30 tablet 0 ALPRAZolam 0.25 mg tablet Take 1 tablet by mouth 3 (three) times daily as needed. vkrkcpqglx-wvirsbhrnvzij-mdeu 50-325-40 mg tablet atorvastatin (LIPITOR) 40 mg tablet Take 1 tablet by mouth at bedtime. 90 tablet 1 cyclobenzaprine 10 mg tablet TAKE 1 TABLET BY MOUTH TWICE DAILY FOR 14 DAYS Diclofenac Sodium 1 % gel APPLY TOPICALLY TO THE AFFECTED AREA FOUR TIMES DAILY FOR 25 DAYS HYDROcodone-acetaminophen 7.5-325 mg per tablet Take 1 tablet by mouth in the morning and 1 tablet in the evening. metFORMIN 1,000 mg tablet Take 1 tablet by mouth 2 (two) times daily with meals. 180 tablet 1 OXcarbazepine 300 mg tablet QUEtiapine 200 mg tablet triamcinolone acetonide 0.1 % cream Apply to area(s) 2 (two) times daily. 30 g 0 triamterene-hydrochlorothiazide 37.5-25 mg per capsule Take 1 capsule by mouth every morning. 90 capsule 3 DULoxetine (CYMBALTA) 60 mg capsule Take 60 mg by mouth daily. nitroglycerin 0.[address] 1 tablet under the tongue every 5 (five) minutes as needed for Chest pain. 1 Bottle 5 pantoprazole 40 mg EC tablet Take 1 tablet by mouth daily. 30 tablet 3 amitriptyline 25 mg tablet Take 25 mg by mouth at bedtime as needed for Insomnia. gabapentin (NEURONTIN) 300 mg capsule Take 1 capsule by mouth 3 (three) times daily. 90 capsule 0 aspirin 81 mg chewable tablet Take 81 mg by mouth daily. DULoxetine (CYMBALTA) 30 mg capsule Take 30 mg by mouth daily. Past Medical History:Past Medical History: Diagnosis Date Bipolar disease, chronic Chronic pain Coronary-myocardial bridge DM (diabetes mellitus) High cholesterol HTN (hypertension) Obesity (BMI 30-39.9) Stroke 08/2015 tPa was given Past Surgical History: Past Surgical History: Procedure Laterality Date SECTION HAMMERTOE CORRECTION Left 07/22/2018 Surgeon: Adnrew Romero Jr., DPM; Location: [facility] LAPAROSCOPIC GASTRIC SLEEVE (SHX) February 2015 LIPOMA EXCISION Left 07/15/2020 Surgeon: Sathya Schulz MD; Location: [facility] Location OTHER Uterine ablation POSTERIOR LAMINECTOMY Bilateral 08/29/2022 Surgeon: Chrissy Hagen MD; Location: [facility] OR LOCATION WOUND DEBRIDEMENT N/A 10/02/2017 Surgeon: Chris Alvarado MD; Location: [facility] OR Location Social History: Social History Tobacco Use Smoking status: Every Day Packs/day: 0.25 Years: 8.00 Total pack years: 2.00 Types: Cigarettes Smokeless tobacco: Never Substance Use Topics Alcohol use: No Alcohol/week: 0.0 standard drinks of alcohol Drug use: No Family History:Family History Problem Relation Age of Onset Hypertension Mother Diabetes Mother CHF (congestive heart failure) Father 68 [place] Arrhythmia Daughter 20 of "QT" PEVitals: Vitals: 09/18/22 0110 09/18/22 0125 09/18/22 0226 09/18/22 0325 BP: 100/49 104/51 96/63 Pulse: 76 72 61 Resp: Temp: 36.5 ?C (97.7 ?F) 36.4 ?C (97.6 ?F) TempSrc: SpO2: 98% 100% Weight: 96.2 kg (212 lb 1.3 oz) Height: 1.6 m (5' 3") Awake, alert, oriented b5REKBO bilaterally at 3mmEOMI bilaterallyFace symmetricTongue midlineUPPER EXTREMITY STRENGTH EXAM: R 5/5 5/5 5/5 5/5 5/5 D(C5) B(C6) T(C7) Air Compressor Mechanic(C8) I (T1)L 5/5 5/5 5/5 5/5 5/5 LOWER EXTREMITY STRENGTH EXAM: R 5/5 5/5 5/5 5/5 5/5 IP(L2) Q(L3) TA(L4) EHL(L5) G(S1)L 5/5 5/5 5/5 5/5 5/5Sensation intact to LT throughoutExam deep tendon: 2+ patellars BLNo drift No clonusNo Verduzco'sIncision DCILabs:Recent Labs WBC 8.63 HGB 11.1* HCT 33.4* PLT 277 ]Recent Labs NA 141 K 3.3* CL 108 TCO2 24 BUN 25* CREAT 1.84* GLU 121* CA 9.2 ]No results for input(s): "ACPH", "ACPCO2", "ACPO2", "ACHCO3", "ACNA", "ACK", "ACCAIONZ", "ACBE" in the last 72 hours.Recent Labs PTPAT 13.9* PTINR 1.2 Assessment:Georgie Helton is a 56 year old female, s/p L4-5 laminectomy , who is here after fall and sustaining fractures at L4-5 facet and L5 lamina. Exam reassuring.Recommendations:No acute nsgyMRI lumbarFlex/ex lumbar xray 2vwRest per Siva Arceo MDNeurosurgery ServiceFor inquiries please page [id number] signed by Chrissy Hagen MD at 09/18/2022 8:14 AM CDTAssociated attestation - Chrissy Hagen MD - 09/18/2022 8:14 AM CDT Faculty Addendum:I independently and actively participated in the clinical decision making and agree with the resident note by Dr. Arceo with no changes.Chrissy Hagen [facility] Qglgbgxjockz04958-0Tmppwps [id number], Rishi1.2.840.078785.1.13.104.2.7.2.83 5569IvwdTkvjiER4111-59-52Y02:14:04Con sult noteTXT1.2.840.429962.1.13.104.2.7.2. 678311|[id number] for patient care[address] Hb[id number] FRSDYZJIVZBDCPYFJYPSE2557-87-70C12:14 :041.2.840.047168.1.72.3.15|1.2.840.1 [id number] 7 History and Physical Notes Date/Time Note Provider Source 2022-09-20 13:24:41 5450-80-79L44:24:41Formatting of this note [facility] is different from the original.XpertMD History & PhysicalDATE: 09/20/2022SERVICE: Internal MedicineCHIEF COMPLAINT: FallHISTORY OF PRESENT ILLNESSClarissa Margoth Helton is a 56 year old female who presents to [facility] oN 09/17 withcomplaints of s/p fall with injury. She reports having R foot, lower back pain, and OLSON. Per chart, she underwent L4/L5 laminectomy on 08/29/22 at [facility]. Patient admitted to Surgery service. On this admission, CT lumbar fracture R L45 facet, L L4 inferior articular process, and L5 lamina; no overt displacement of L4 over L5; Head/thoracic spine CT unimpressive for acute findings. MRI of lumbar spine findings, changes of L4 spinal decompression with midline fluid collection, suspected post op seroma and multilevel mild neural foraminal Stenosis. Neurosurgery consulted, no acute surgical interventions.Internal medicine service consulted by surgery for weakness and lethargy evaluation. Currently patient is alert and oriented x 4. She reports being really sleepy after taking [place]. No other complaints at this time, bilateral upper and lower extremities with equal and weight bearing strength. ALLERGIESClarissa is allergic to sulfa (sulfonamide antibiotics).MEDICATIONSCurrent Facility-Administered Medications: HYDROcodone-acetaminophen (NORCO 5) 5-325 mg tablet 1 tablet, 1 tablet, Oral, Q6HPRN, Amparo, Somkenechi, DO ondansetron (ZOFRAN (PF)) injection 4 mg, 4 mg, Slow IV Push, Q6HPRN, Le, Sherie, DO, 4 mg at 09/20/22 0502 acetaminophen (TYLENOL) tablet 650 mg, 650 mg, Oral, Q8H, Amparo, Somkenechi, DO morpHINE (2 mg/mL) injection 2 mg, 2 mg, Slow IV Push, Q3HPRN, Ajene Somkenechi, DO, 2 mg at 09/20/22 0625 allopurinoL (ZYLOPRIM) tablet 100 mg, 100 mg, Oral, DAILY, MooreJameson Banegas MD, 100 mg at 09/20/22939 amitriptyline (ELAVIL) tablet 25 mg, 25 mg, Oral, QHSPRN, Jameson Rosenthal MD apixaban (ELIQUIS) tablet 2.5 mg, 2.5 mg, Oral, BID, Ajene, Somkenechi, DO, 2.5 mg at 09/20/22939 atorvastatin (LIPITOR) tablet 40 mg, 40 mg, Oral, QHS, Jameson Rosenthal MD, 40 mg at 09/19/222053 colchicine (COLCRYS) tablet 0.6 mg, 0.6 mg, Oral, QAM, Jameson Rosenthal MD, 0.6 mg at 09/20/22938 dextrose 10% (D10W) bolus infusion 250 mL, 250 mL, IV Infusion, PRN - SEE INSTRUCTIONS, Jameson Rosenthal MD docusate (COLACE) capsule 100 mg, 100 mg, Oral, DAILY, Jameson Rosenthal MD, 100 mg at 09/20/22939 DULoxetine (CYMBALTA) capsule 30 mg, 30 mg, Oral, DAILY, Jameson Rosenthal MD, 30 mg at 09/20/22938 glucagon (GLUCAGEN DIAGNOSTIC KIT) injection 1 mg, 1 mg, Intramuscular, PRN, Jameson Rosenthal MD nitroglycerin (NITROSTAT) sublingual tablet 0.4 mg, 0.4 mg, Sublingual, Q5MIN PRN, Jameson Rosenthal MD pantoprazole (PROTONIX) EC tablet 40 mg, 40 mg, Oral, DAILY, Jameson Rosenthal MD, 40 mg at 09/20/22939 Sliding Scale Insulin - Lispro (HumaLOG), , Subcutaneous, TID MEALS+HS, Jameson Rosenthal MDCurrent Discharge Medication List START taking these medications Details methocarbamoL 500 mg tablet Take 1 tablet by mouth 4 (four) times daily for 10 days as needed for muscle spasms.Qty: 40 tablet, Refills: 0 Associated Diagnoses: Closed fracture of fourth lumbar vertebra, unspecified fracture morphology, initial encounter CONTINUE these medications which have NOT CHANGED Details ibuprofen 800 mg tablet Take 1 tablet by mouth every 8 (eight) hours as needed for Pain (scale 4-6) or Temp > 38.5 C.Qty: 21 tablet, Refills: 0 Associated Diagnoses: Perianal abscess ciprofloxacin HCl 500 mg tablet Take 1 tablet by mouth in the morning and 1 tablet in the evening.Qty: 20 tablet, Refills: 0 Associated Diagnoses: Cutaneous abscess of left lower extremity cephALEXin (KEFLEX) 500 mg capsule Take 1 capsule by mouth 4 (four) times daily.Qty: 40 capsule, Refills: 0 Associated Diagnoses: Abscess ondansetron 4 mg disintegrating tablet Take 1 tablet by mouth every 4 (four) hours as needed for Nausea and Vomiting (N/V).Qty: 20 tablet, Refills: 0 Associated Diagnoses: Abscess allopurinoL 100 mg tablet TAKE 1 TABLET BY MOUTH EVERY DAY DIRECTED colchicine 0.6 mg tablet Take 1 tablet by mouth every morning. ELIQUIS 2.5 mg tablet ergocalciferol, vitamin d2, 1,250 mcg (50,000 unit) capsule FARXIGA 5 mg tablet lubiprostone 24 mcg capsule TAKE 1 CAPSULE BY MOUTH TWICE DAILY AROUND THE CLOCK OZEMPIC 0.25 mg or 0.5 mg(2 mg/1.5 mL) PnIj 0.5 mg. lactulose 10 gram/15 mL oral solution Take 30 mL by mouth 3 (three) times daily as needed for Constipation.Qty: 300 mL, Refills: 1 Associated Diagnoses: Chest pain, unspecified type; Generalized abdominal pain; Constipation, unspecified constipation type sucralfate 1 gram tablet Take 1 tablet by mouth before meals and at bedtime.Qty: 30 tablet, Refills: 0 Associated Diagnoses: Chest pain, unspecified type; Generalized abdominal pain; Constipation, unspecified constipation type ALPRAZolam 0.25 mg tablet Take 1 tablet by mouth 3 (three) times daily as needed. bbvwfrskwx-ffufvljrylysh-iodp 50-325-40 mg tablet atorvastatin (LIPITOR) 40 mg tablet Take 1 tablet by mouth at bedtime.Qty: 90 tablet, Refills: 1 Associated Diagnoses: Hypercholesterolemia cyclobenzaprine 10 mg tablet TAKE 1 TABLET BY MOUTH TWICE DAILY FOR 14 DAYS Diclofenac Sodium 1 % gel APPLY TOPICALLY TO THE AFFECTED AREA FOUR TIMES DAILY FOR 25 DAYS HYDROcodone-acetaminophen 7.5-325 mg per tablet Take 1 tablet by mouth in the morning and 1 tablet in the evening. metFORMIN 1,000 mg tablet Take 1 tablet by mouth 2 (two) times daily with meals.Qty: 180 tablet, Refills: 1 Associated Diagnoses: Type 2 diabetes mellitus without complication, without long-term current use of insulin OXcarbazepine 300 mg tablet QUEtiapine 200 mg tablet triamcinolone acetonide 0.1 % cream Apply to area(s) 2 (two) times daily.Qty: 30 g, Refills: 0 Associated Diagnoses: Rash triamterene-hydrochlorothiazide 37.5-25 mg per capsule Take 1 capsule by mouth every morning.Qty: 90 capsule, Refills: 3 Associated Diagnoses: Preop cardiovascular exam !! DULoxetine (CYMBALTA) 60 mg capsule Take 60 mg by mouth daily. nitroglycerin 0.[address] 1 tablet under the tongue every 5 (five) minutes as needed for Chest pain.Qty: 1 Bottle, Refills: 5 Associated Diagnoses: Chest pain, unspecified type pantoprazole 40 mg EC tablet Take 1 tablet by mouth daily.Qty: 30 tablet, Refills: 3 Associated Diagnoses: Chest pain, unspecified type amitriptyline 25 mg tablet Take 25 mg by mouth at bedtime as needed for Insomnia. gabapentin (NEURONTIN) 300 mg capsule Take 1 capsule by mouth 3 (three) times daily.Qty: 90 capsule, Refills: 0 aspirin 81 mg chewable tablet Take 81 mg by mouth daily. !! DULoxetine (CYMBALTA) 30 mg capsule Take 30 mg by mouth daily. !! - Potential duplicate medications found. Please discuss with provider. PAST MEDICAL HISTORYPast Medical History: Diagnosis Date Bipolar disease, chronic Chronic pain Coronary-myocardial bridge DM (diabetes mellitus) High cholesterol HTN (hypertension) Obesity (BMI 30-39.9) Stroke 08/2015 tPa was given PAST SURGICAL HISTORYPast Surgical History: Procedure Laterality Date SECTION HAMMERTOE CORRECTION Left 07/22/2018 Surgeon: Andrew Romero Jr., DPM; Location: [facility] LAPAROSCOPIC GASTRIC SLEEVE (SHX) February 2015 LIPOMA EXCISION Left 07/15/2020 Surgeon: Sathya Schulz MD; Location: [facility] OTHER Uterine ablation POSTERIOR LAMINECTOMY Bilateral 08/29/2022 Surgeon: Chrissy Hagen MD; Location: [facility] OR LOCATION WOUND DEBRIDEMENT N/A 10/02/2017 Surgeon: Chris Alvarado MD; Location: [facility] PAST SOCIAL HISTORYSocial History Socioeconomic History Marital status: Tobacco Use Smoking status: Every Day Packs/day: 0.25 Years: 8.00 Total pack years: 2.00 Types: Cigarettes Smokeless tobacco: Never Substance and Sexual Activity Alcohol use: No Alcohol/week: 0.0 standard drinks of alcohol Drug use: No Sexual activity: Yes control/protection: Other-see comments Comment: Hysterectomy Social Determinants of Health Financial Resource Strain: Low Risk (09/18/2022) Overall Financial Resource Strain (CARDIA) Difficulty of Paying Living Expenses: Not hard at all Food Insecurity: No Food Insecurity (09/18/2022) Hunger Vital Sign Worried About Running Out of Food in the Last Year: Never true Ran Out of Food in the Last Year: Never true Transportation Needs: No Transportation Needs (09/18/2022) PRAPARE - Transportation Lack of Transportation (Medical): No Lack of Transportation (Non-Medical): No Physical Activity: Inactive (09/18/2022) Exercise Vital Sign Days of Exercise per Week: 0 days Minutes of Exercise per Session: 0 min Social Connections: Unknown (09/18/2022) Social Connection and Isolation Panel [NHANES] Frequency of Communication with Friends and Family: More than three times a week Marital Status: Housing Stability: Low Risk (09/18/2022) Housing Stability Vital Sign Unable to Pay for Housing in the Last Year: No Number of Places Lived in the Last Year: 1 Unstable Housing in the Last Year: No PAST FAMILY HISTORYFamily History Problem Relation Age of Onset Hypertension Mother Diabetes Mother CHF (congestive heart failure) Father 68 [place] Arrhythmia Daughter 20 of "QT" REVIEW OF SYSTEMSPatient denies any headaches or dizziness, no fevers or chills, no nausea or vomiting, denies any neck pain or stiffness, denies any chest pain or chest pressure or palpitations, denies any shortness of breath, denies any abdominal pain or any changes in bowel or bladder habits, denies any lower extremity swelling, denies any focal motor or sensory deficits, denies any anxiety or depression, and all other systems have been reviewed and are negative except as listed above. PHYSICAL EXAMINATIONGeneral: Lying comfortably in no signs of any acute distressHEENT: Normocephalic atraumatic, extraocular muscles appear intact, mucosa moist, neck suppleHeart: S1-S2 irregular and tachycardiaLungs: Clear to auscultation bilaterally, no rhonchi rales or wheezes notedGI: Soft, nontender, nondistended, positive bowel sounds ? quadrantsExtremities: No clubbing, cyanosis or edema notedNeurologic: Cranial nerves II through XII appear grossly intact, no focal motor or sensory deficits notedPsychiatric: No anxiety or depression noted Vitals: 09/20/22 0702 09/20/22 0955 09/20/22 1006 09/20/22 1150 BP: (!) 86/50 135/79 114/86 125/75 BP Location: Right arm Right arm Patient Position: Supine Supine Pulse: 99 94 96 92 Resp: 22 22 Temp: 36.6 ?C (97.8 ?F) 36.6 ?C (97.9 ?F) TempSrc: SpO2: 93% 90% Weight: Height: LABS AND IMAGING Recent Results (from the past 24 hour(s)) POCT GLUCOSE (AUTOMATED) Collection Time: 09/19/22 4:38 PM Result Value Ref Range POCT GLU 125 (H) 70 - 110 mg/dL POCT GLUCOSE (AUTOMATED) Collection Time: 09/19/22 8:34 PM Result Value Ref Range POCT GLU 130 (H) 70 - 110 mg/dL POCT GLUCOSE (AUTOMATED) Collection Time: 09/20/22 7:02 AM Result Value Ref Range POCT GLU 151 (H) 70 - 110 mg/dL POCT GLUCOSE (AUTOMATED) Collection Time: 09/20/22 10:10 AM Result Value Ref Range POCT GLU 95 70 - 110 mg/dL CBC WITH DIFF Collection Time: 09/20/22 10:52 AM Result Value Ref Range WBC 4.98 4.30 - 11.10 10*3/?L RBC 3.39 (L) 3.93 - 5.25 10*6/?L HGB 10.0 (L) 11.6 - 15.0 g/dL HCT 31.4 (L) 35.7 - 45.2 % MCV 92.6 80.6 - 95.5 fL MCH 29.5 25.9 - 32.8 pg MCHC 31.8 31.6 - 35.1 g/dL RDW-SD 44.3 39.0 - 49.9 fL RDW-CV 13.1 12.0 - 15.5 % PLT 244 166 - 358 10*3/?L MPV 10.1 9.5 - 12.9 fL NRBC/100 WBC 0.0 0.0 - 10.0 /100 WBCs NRBC x10^3 <0.01 10*3/?L GRAN MAT (NEUT) % 50.6 % IMM GRAN % 0.00 % LYMPH % 42.8 % MONO % 4.4 % EOS % 2.0 % BASO % 0.2 % GRAN MAT x10^3(ANC) 2.52 1.88 - 7.09 10*3/uL IMM GRAN x10^3 <0.03 0.00 - 0.06 10*3/uL LYMPH x10^3 2.13 1.32 - 3.29 10*3/uL MONO x10^3 0.22 (L) 0.33 - 0.92 10*3/uL EOS x10^3 0.10 0.03 - 0.39 10*3/uL BASO x10^3 <0.03 0.01 - 0.07 10*3/uL BASIC METABOLIC PANEL (NA, K, CL, CO2, GLUCOSE, BUN, CREATININE, CA) Collection Time: 09/20/22 10:52 AM Result Value Ref Range NA 143 135 - 145 mmol/L K 3.6 3.5 - 5.0 mmol/L CL 112 (H) 98 - 108 mmol/L CO2 TOTAL 23 23 - 31 mmol/L AGAP 8 2 - 16 BUN 11 7 - 23 mg/dL GLUCOSE 113 (H) 70 - 110 mg/dL CREATININE 1.24 (H) 0.50 - 1.04 mg/dL CALCIUM 9.1 8.6 - 10.6 mg/dL eGFR 44.7 mL/min/1.73m2 POCT GLUCOSE (AUTOMATED) Collection Time: 09/20/22 12:31 PM Result Value Ref Range POCT GLU 89 70 - 110 mg/dL RadiologyXR LUMBAR SPINE 2 VWResult Date: 09/19/2022No evidence of significant listhesis with alignment well-maintained throughout flexion and extension. END OF REPORT [id number] MR LUMBAR SPINE W WO CONTRASTResult Date: . Changes of L4 spinal decompression with superficial and deep posterior paraspinal midline fluid collections, most typically postoperative seroma. If there is clinical concern for superinfection, fluid sampling can be considered. 2. Posterior element fractures better seen on prior CT. No additional fracture. 3. Lumbar spondylosis with moderate canal stenosis at L3-L4.. Multilevel mild neural foraminal stenosis as above. RL: [id number] END REPORT. SSMENT AND PLANClarissa Margoth Helton is a 56 year old female who presents with:Falls with injuryL4/L5 fracture WeaknessL4/L5 Laminectomy (08/29/22)Bipolar DisorderChronic painCoronary-myocardial bridgeDM Type IIHLDHTNObesity, BMI 37.5HX CVA (08/2015)Plan:09/20-Continue PT/OT-Monitor mentation-Pain control/antiemetics-Falls, safety precautions-Monitor VS -Neurosx/SX team following-Possible Dc tomorrow pending continued clinical improvementCULLEN Rivera [id number] and physical [id number]:42:34History and physical [id number] 9|[id number] for patient care[address] Sw[id number] [id number]:42:341.2.840 .[id number]|1.2.840.195984.1.13.104. [id number] 2022-09-18 00:25:57 [id number]:25:57Formatting of this note [facility] is different from the original.Date of Service: 09/17/2022 HISTORY OF MECHANISM OF INJURYCljazzmine Helton is a 56 year old female who presents due to mechanical fall that occurred in the afternoon. LOC + . Reports pain in R foot, lower back and head. Reports being on Eliquis for "heart condition." Pt. Underwent L4/L5 laminectomy on 08/29/2022 at [facility]. Date of Injury- 09/17/2022 PAIN/INJURYDull pain posterior head, lower back and R foot moderate intensityPRIMARY SURVEY/GCSVitals: 09/17/22 2336 09/17/22 2339 09/17/22 2339 09/17/22 2340 BP: 119/60 Pulse: 85 Resp: 20 20 20 Temp: 36.6 ?C (97.8 ?F) TempSrc: Oral SpO2: 94% Weight: 198 lb (89.8 kg) Height: 5' 3" (1.6 m) Glascow Coma Scale:Glascow Coma ScaleEye Opening: Spontaneous= 4Best Verbal Response: Oriented= 5Best Motor Response: Obeys command= 6TOTAL: 15Airway: Patent Breathing: Bilateral breath sounds equal Circulation:Radial pulses present and equal and Pedal pulses present and equal Pupils: 3 mm and reactive ALLERGIES: Allergies Allergen Reactions Sulfa (Sulfonamide Antibiotics) Anaphylaxis MEDICATIONS: Patient's Medications START taking these medications No medications on file CONTINUE taking these medications which have NOT CHANGED ALLOPURINOL 100 MG TABLET TAKE 1 TABLET BY MOUTH EVERY DAY DIRECTED ALPRAZOLAM 0.25 MG TABLET Take 1 tablet by mouth 3 (three) times daily as needed. AMITRIPTYLINE 25 MG TABLET Take 25 mg by mouth at bedtime as needed for Insomnia. ASPIRIN 81 MG CHEWABLE TABLET Take 81 mg by mouth daily. ATORVASTATIN (LIPITOR) 40 MG TABLET Take 1 tablet by mouth at bedtime. CFPTECTCAY-PXISGXLTNZBAC-HQQR 50-325-40 MG TABLET CEPHALEXIN (KEFLEX) 500 MG CAPSULE Take 1 capsule by mouth 4 (four) times daily. CIPROFLOXACIN HCL 500 MG TABLET Take 1 tablet by mouth in the morning and 1 tablet in the evening. COLCHICINE 0.6 MG TABLET Take 1 tablet by mouth every morning. CYCLOBENZAPRINE 10 MG TABLET TAKE 1 TABLET BY MOUTH TWICE DAILY FOR 14 DAYS DICLOFENAC SODIUM 1 % GEL APPLY TOPICALLY TO THE AFFECTED AREA FOUR TIMES DAILY FOR 25 DAYS DULOXETINE (CYMBALTA) 30 MG CAPSULE Take 30 mg by mouth daily. DULOXETINE (CYMBALTA) 60 MG CAPSULE Take 60 mg by mouth daily. ELIQUIS 2.5 MG TABLET ERGOCALCIFEROL, VITAMIN D2, 1,250 MCG (50,000 UNIT) CAPSULE FARXIGA 5 MG TABLET GABAPENTIN (NEURONTIN) 300 MG CAPSULE Take 1 capsule by mouth 3 (three) times daily. HYDROCODONE-ACETAMINOPHEN 7.5-325 MG PER TABLET Take 1 tablet by mouth in the morning and 1 tablet in the evening. IBUPROFEN 800 MG TABLET Take 1 tablet by mouth every 8 (eight) hours as needed for Pain (scale 4-6) or Temp > 38.5 C. LACTULOSE 10 GRAM/15 ML ORAL SOLUTION Take 30 mL by mouth 3 (three) times daily as needed for Constipation. LUBIPROSTONE 24 MCG CAPSULE TAKE 1 CAPSULE BY MOUTH TWICE DAILY AROUND THE CLOCK METFORMIN 1,000 MG TABLET Take 1 tablet by mouth 2 (two) times daily with meals. NITROGLYCERIN 0.[address] 1 tablet under the tongue every 5 (five) minutes as needed for Chest pain. ONDANSETRON 4 MG DISINTEGRATING TABLET Take 1 tablet by mouth every 4 (four) hours as needed for Nausea and Vomiting (N/V). OXCARBAZEPINE 300 MG TABLET OZEMPIC 0.25 MG OR 0.5 MG(2 MG/1.5 ML) PNIJ 0.5 mg. PANTOPRAZOLE 40 MG EC TABLET Take 1 tablet by mouth daily. QUETIAPINE 200 MG TABLET SUCRALFATE 1 GRAM TABLET Take 1 tablet by mouth before meals and at bedtime. TRIAMCINOLONE ACETONIDE 0.1 % CREAM Apply to area(s) 2 (two) times daily. TRIAMTERENE-HYDROCHLOROTHIAZIDE 37.5-25 MG PER CAPSULE Take 1 capsule by mouth every morning. START taking Modified Medications as Prescribed No medications on file STOP taking these medications No medications on file PAST MEDICAL HISTORY: has a past medical history of Bipolar disease, chronic, Chronic pain, Coronary-myocardial bridge, DM (diabetes mellitus), High cholesterol, HTN (hypertension), Obesity (BMI 30-39.9), and Stroke (08/2015). PAST SURGICAL HISTORY: has a past surgical history that includes laparoscopic gastric sleeve (shx) (February 2015); other; section; wound debridement (N/A, 10/02/2017); hammertoe correction (Left, 07/22/2018); lipoma excision (Left, 07/15/2020); and posterior laminectomy (Bilateral, 08/29/2022). FAMILY HISTORY: Family History Problem Relation Age of Onset Hypertension Mother Diabetes Mother CHF (congestive heart failure) Father 68 [place] Arrhythmia Daughter 20 of "QT" SOCIAL HISTORY: Social History Tobacco Use Smoking status: Every Day Packs/day: 0.25 Years: 8.00 Total pack years: 2.00 Types: Cigarettes Smokeless tobacco: Never Substance Use Topics Alcohol use: No Alcohol/week: 0.0 standard drinks of alcohol Drug use: No REVIEW OF SYSTEMSConstitutional: NegativeEyes: NegativeCardiovascular: NegativeRespiratory: Negative Gastrointestinal: Negative Genitourinary: Negative Neuro: Negative Psych: NegativeEndocrine: Negative Musculoskeletal: + pain in lower back, R foot, and head. PHYSICAL EXAM1. HEAD a. Inspect and palpate scalp and face for fractures. Grossly normalTenderness to palpation in parietal region b. Perform otoscopic examination of nose and ears (CSF leak, hemotympanum). Deferred c. Examine eyes. - Eye movement Grossly normal -Size of Pupils 3 mm -Reaction of pupils to light Normal -Visual acuity Deferred d. Inspect mouth for malocclusion, carious and/or missing teeth and lacerations. Grossly normal e. Check for facial fractures: -Palpate nose; inspect septum for hematoma. Grossly normal, no tenderness -Palpate zygomatic arches and infraorbital ridges. Grossly normal, no tenderness -Check stability of midface and mandible. Grossly normal 2. NECK a. Inspect for wounds, hematoma, swelling and venous distention. Grossly normal b. Palpate for subcutaneous emphysema and tracheal deviation. Grossly normal, no tenderness c. Palpate cervical spine for evidence of injury. Grossly normal, no tenderness 3. CHEST a. Inspect for wounds, hematoma, swelling and ecchymosis. Normal b. Observe chest and it's movements (prominent hemothorax, paradoxical, etc). Normal c. Palpate for fractures and subcutaneous emphysema. Check thoracic cage stability using anterior-posterior and lateral compressions. Normal, no tenderness d. Auscultate for breath and heart sounds. Equal breath sounds bilaterally 4. ABDOMEN a. Inspect for wounds, hematoma, swelling and ecchymosis. Normal b. Auscultate for bowel sounds. Normal bowel sounds c. Palpate for tenderness, guarding (voluntary vs. involuntary), rebound, and masses (bladder, etc). Normal, no tenderness d. Check stability of pelvis by compressing iliac wings and symphysis pubis. Stable 5. MUSCULOSKELETAL a. Observe posture (decerebrate, decorticate, etc) and identify wounds, swelling, ecchymosis, and hematoma.. Normal b. Palpate each extremity for tenderness, deformity, crepitus, and/or fracture. Record pulses. Tenderness to R foot c. Record muscle strength, range of motion and sensation bilaterally. Grossly normal d. Record pulses. 2+ throughout 6. GENITALIA AND PERINEUM a. Inspect penis (blood at meatus) and perineum (ecchymosis or laceration), priapism. Grossly normal b. Perform rectal exam. Record: Not tested/Deferred - Position of prostate Not tested/Deferred - Anal sphincter activity Not tested/Deferred - Rectal sensation Not tested/Deferred - Rectal blood Not tested/Deferred 7. BACK (logroll patient with neck stabilized) a. Inspect for wounds, hematuria, swelling, ecchymosis and fractures. Normal b. Palpate spinal vertebrae, ribs and pelvis for tenderness and/or fractures. Tenderness to palpation lumbar area LABORATORY RESULTSCBC BMP PT/INR WBC (10*3/?L) Date Value 08/10/2022 9.29 NA (mmol/L) Date Value 08/10/2022 140 No results found for: "PT" RBC (10*6/?L) Date Value 08/10/2022 3.81 (L) K (mmol/L) Date Value 08/10/2022 3.6 INR (no units) Date Value 05/16/2021 1.0 PLT (10*3/?L) Date Value 08/10/2022 332 CALCIUM (mg/dL) Date Value 08/10/2022 9.5 HGB (g/dL) Date Value 08/10/2022 11.3 (L) CL (mmol/L) Date Value 08/10/2022 105 aPTT HCT (%) Date Value 08/10/2022 33.7 (L) BUN (mg/dL) Date Value 08/10/2022 25 (H) APTT Patient (Seconds) Date Value 05/16/2021 23 CREATININE (mg/dL) Date Value 08/10/2022 2.35 (H) GLUCOSE (mg/dL) Date Value 08/10/2022 92 CO2 TOTAL (mmol/L) Date Value 08/10/2022 26 X-RAY/CT/FAST RESULTSXR LUMBAR SPINE 1 VWResult Date: 08/29/2022These images do not require a Radiology diagnostic report. No final results containing an impression from the past 30 days were found.INJURIES/PROBLEMS/DIAGNOSES and TREATMENT PLAN:Georgie Helton is a 56 year old female with pertinent PMH of L4/L5 laminectomy on 08/29/22 who presents due to mechanical fall with LOC. Found to have L4/L5 fractures on CT. -Complete full Trauma CT series-Admit to trauma-IVF, pain control-Consult neurosurgery for L4/L5 fracture -Orders per trauma protocol as belowOrders Placed This Encounter Procedures CT THORACIC SPINE WO CONTRAST CT THORAX WO CONTRAST CT ABDOMEN PELVIS WO CONTRAST CBC WITH DIFF PROTHROMBIN TIME / INR COMP. METABOLIC PANEL (85934) Patient was seen with Dr. King I saw and examined the patient with the medical student. I have reviewed the note and made changes as needed. I otherwise agree with the history, physical exam, and medical decision making. Jameson Curtis MDGeneral Surgery PGY2 ssociated attestation - Melonie King MD - 09/18/2022 6:27 AM CDT AttendingI personally examined the patient on 09/18/22 and have verified the medical student documentation and/or findings, including the history, physical exam, and medical decision making. Additionally, I have personally performed or re-performed the physical exam and medical decision making activities of this patient's evaluation and management service.I personally examined the patient on 09/18/22 and agree with the Resident note by Dr. Moore as written. I actively participated in the decision-making process. Please see the note for additional details. The history and physical exam and medical decision making was directed by me. Briefly, 56 year old female on Eliquis with pertinent PMH of L4/L5 laminectomy on 08/29/22 who presents due to mechanical fall with LOC. Found to have L4/L5 fractures on CT. PROBLEMS: Acute fall complicated by injuries as above External notes reviewedReview and interpretation of testsNew tests orderedDiscussed with NS (external provider)Moderate (M) risk indicated by Other extenuating risks including pain control, risk of worsening of condition (minor)(M)History of/underlying Past Medical History: Diagnosis Date Bipolar disease, chronic Chronic pain Coronary-myocardial bridge DM (diabetes mellitus) High cholesterol HTN (hypertension) Obesity (BMI 30-39.9) Stroke 08/2015 tPa was given PLAN:-Complete full Trauma CT series-Admit to trauma-IVF, pain control-Consult neurosurgery for L4/L5 fracture CPT: 76793A. MD SaniyaTrauma/Acute Care Surgery [id number] and physical [id number], [id number] [id number]:27:58History and physical [id number] 9|[id number] for patient [address] Fg[id number] [id number]:27:581.2.840 .[id number]|[id number]. [id number]
--- NOTE | 2022-11-14 18:16 | RAD REPORT ---
EXAM DESCRIPTION: CT - Head Brain Wo Cont - 11/14/2022 5:37 pm CLINICAL HISTORY: PAIN COMPARISON: Head Brain Wo Cont dated 07/07/2021; Head Brain Wo Cont dated 06/01/2021 TECHNIQUE: Noncontrast head CT images were obtained without IV contrast. Multiplanar reformats were generated and reviewed. All CT scans are performed using dose optimization technique as appropriate and may include automated exposure control or mA/KV adjustment according to patient size. FINDINGS: No intracranial hemorrhage, mass, or edema. Midline structures are unremarkable. Normal ventricular caliber for age. Shi-white matter differentiation is preserved, without evidence of acute infarct. No abnormal extra- axial fluid collections. Partially empty sella is incidentally noted. Mastoid air cells are well aerated. Scattered paranasal sinus mild mucosal thickening. No acute bony findings. IMPRESSION: No evidence of an acute intracranial process.
--- NOTE | 2022-11-14 18:35 | RAD REPORT ---
EXAM DESCRIPTION: CT - Spine Lumbar Wo Con - 11/14/2022 5:37 pm CLINICAL HISTORY: PAIN COMPARISON: Spine Lumbar Wo Con dated 09/17/2022; Spine Lumbar Wo Con dated 05/14/2020; Spine Lumbar W o Con dated 03/04/2018; Spine Lumbar Wo Con dated 07/12/2016 TECHNIQUE: Axial noncontrast CT imaging of the lumbar spine was performed with coronal and sagittal re-formatted images. All CT scans are performed using dose optimization technique as appropriate and may include automated exposure control or mA/KV adjustment according to patient size. FINDINGS: Changes of partial healing along the L5 spinous process fracture, and bilateral L4 pars in terarticularis fractures, with some osseous resorption and callus formation. No other acute lumbar sp ine fracture seen. Postoperative sequelae of posterior decompression via bilateral laminectomies at L4. Partial improvem ent of paraspinous muscle edema along the surgical tract, and smaller and more localized seroma along the surgical tract in the subcutaneous tissues. No aggressive marrow pattern or malalignment. Intervertebral disc disease assessment is inherently limited by CT. Within these limitations, no high -grade canal stenosis suspected. Osteophytes associated with the left more than right L4-5 facet zena culations are stable, with some joint space widening of both articulations. Stable degrees of neural foraminal narrowing at multiple levels, up to moderate. IMPRESSION: Partial healing changes noted along L5 spinous process, and bilateral L4 pars interartic ularis fractures. No other acute osseous findings. Otherwise stable postoperative and degenerative changes as above.
--- NOTE | 2022-11-14 20:18 | RAD REPORT ---
EXAM DESCRIPTION: MRI - Lumbar Spine Wo Con - 11/14/2022 7:47 pm CLINICAL HISTORY: PAIN COMPARISON: Spine Lumbar Wo Con dated 11/14/2022 TECHNIQUE: Multiplanar multisequence MRI of the lumbar spine performed, without intravenous gadolini um contrast. FINDINGS: Preserved lumbar lordosis without spondylolisthesis. Postsurgical changes of posterior decompression via bilateral laminectomy at L4. Edematous changes al dong the posterior paraspinous muscles. Subcutaneous collection within the posterior soft tissues isidra g the surgical tract measuring 2.9 x 1.7 cm in greatest axial dimensions most suggestive of a resolvi ng seroma. Vertebral body heights are well maintained. No suspicious marrow signal. No paraspinal masses or liu ma. Conus terminates at the appropriate level. Cauda equina roots are unremarkable, with no clumping or t hickening. T12-L1: No significant findings. L1-L2: No significant findings. L2-L3: Mild broad-based disc bulge. No significant canal or foraminal stenosis. L3-L4 level: Broad-based posterior disc bulge. Superimposed left foraminal disc protrusion with annul ar hyperintensity zone. Facet arthropathy and ligamentum flavum buckling contribute to mild canal alexi nosis. Mild bilateral neural foraminal narrowing worse on the right. L4-L5 level: No residual disc herniation or central canal stenosis, although facet arthropathy and tr joseph bilateral effusions in addition to some residual epidural fat signal obliteration likely related to postoperative changes contribute to bilateral narrowing of the lateral recesses. Mild bilateral ne ural foraminal narrowing. L5-S1 level: No significant findings. Bilateral facet arthropathy worse on the right. IMPRESSION: Recent expected postoperative changes as above. Facet arthropathy and trace bilateral facet effusions at the level of decompression at L4-5 contribut es to some residual narrowing of the lateral recesses. Other multilevel degenerative changes contributing to mild bilateral neural foraminal narrowing at L3 -4 and L4-5. Mild central canal stenosis also noted at L3-4.
[2022-11-14 20:39] LABS: Absolute Lymphocytes (CBC) 2.1 K/uL (0.7-4.9); Hematocrit 36.6 % (36.0-45.0); Lymphocytes % 27.2 % (15.3-44.8); MCV 88.3 fL (80-100); MPV 10.2 fL (7.6-11.3); Platelets 245 thou/uL (152-406); RBC Red Blood Cell Count 4.15 M/uL (3.86-4.86); White Blood Cell Scan OK (OK)
[2022-11-14 20:40] LABS: Blood Morphology Comment NOT SEEN (NOT SEEN); Platelet Estimate ADEQ
[2022-11-14] MEDS ORDERED: NA CHLORIDE 0.9% 1,000 ML ONE (20:52)
[2022-11-14] MEDS ORDERED: KETOROLAC 30 MG/ML INJ ONE (20:52)
[2022-11-14 20:59] LABS: Albumin 3.5 g/dL (3.4-5.0); Bilirubin Total 0.4 mg/dL (0.2-1.0); Protein, Total 8.1 g/dL (6.4-8.2)
[2022-11-14 21:09] LABS: Potassium 3.6 mEq/L (3.5-5.1)
--- NOTE | 2022-11-14 21:24 | ER ---
Nurse's Notes [facility] Name: Che Helton Age: 56 yrs Sex: Female : 1965 Arrival Date: 11/14/2022 Time: 16:41 Bed 18 Private MD: Diagnosis: Fall on same level from slipping, tripping and stumbling without subsequent striking against object;Low back pain Presentation: 11/14 17:14 Chief complaint: Patient states: Has had multiple falls over the past week d/t ph dizziness, c/o back pain and pain to L side of face. Coronavirus screen: Vaccine status: Patient reports receiving the 2nd dose of the covid vaccine. Ebola Screen: No symptoms or risks identified at this time. Initial Sepsis Screen: Does the patient meet any 2 criteria? No. Patient's initial sepsis screen is negative. Does the patient have a suspected source of infection? No. Patient's initial sepsis screen is negative. Risk Assessment: Do you want to hurt yourself or someone else? Patient reports no desire to harm self or others. Onset of symptoms was November 14, 2022. 17:14 Method Of Arrival: Wheelchair ph 17:14 Acuity: NELY 2 ph Historical: - Allergies: 17:19 PENICILLINS; ph 17:19 Sulfa (Sulfonamide Antibiotics); ph - PMHx: 17:19 ADD/ADHD; Anxiety; Bipolar disorder; cardiac arrest; Depression; Diabetes - NIDDM; ph Hyperlipidemia; Hypertension; Myocardial infarction; stroke; - PSHx: 17:19 gastric sleeve; section; knee sx; ph - Immunization history:: Adult Immunizations unknown. - Social history:: Smoking status: Patient reports the use of cigarette tobacco products, smokes one-half pack cigarettes per day. Screenin:47 [facility] ED Fall Risk Assessment (Adult) Score/Fall Risk Level 3 or more points = High eh3 Risk Oriented to surroundings, Maintained a safe environment, Educated pt \T\ family on fall prevention, incl call for assistance when getting out of bed, Assessed \T\ reinforced patient's understanding of fall precautions, Provided non-skid footwear, Hourly rounding (assess needs \T\ fall precautionary measures) done, Used ambulatory aids as needed (educated on \T\ assisted with), Utilized family, sitter, or virtual video specialist as indicated. Abuse screen: Denies threats or abuse. Denies injuries from another. Nutritional screening: No deficits noted. Tuberculosis screening: No symptoms or risk factors identified. Assessment: 17:47 General: Appears in no apparent distress. uncomfortable, Behavior is calm, cooperative, eh3 appropriate for age. Pain: Complains of pain in face and back. Neuro: Level of Consciousness is awake, alert, obeys commands, Oriented to person, place, time, situation. Neuro: Reports dizziness. Cardiovascular: Capillary refill < 3 seconds Patient's skin is warm and dry. Respiratory: Airway is patent Respiratory effort is even, unlabored, Respiratory pattern is regular, symmetrical. GI: Abdomen is round non-distended. Derm: Skin is pink, warm \T\ dry. Musculoskeletal: Circulation, motion, and sensation intact. 18:30 Reassessment: Patient appears in no apparent distress at this time. Patient and/or eh3 family updated on plan of care and expected duration. Pain level reassessed. Patient is alert, oriented x 3, equal unlabored respirations, skin warm/dry/pink. 19:23 General: pt in MRI. as6 19:30 Reassessment: Patient appears in no apparent distress at this time. Patient and/or ha1 family updated on plan of care and expected duration. Pain level reassessed. Patient is alert, oriented x 3, equal unlabored respirations, skin warm/dry/pink. 20:29 General:. as6 20:30 Reassessment: Patient appears in no apparent distress at this time. Patient and/or ha1 family updated on plan of care and expected duration. Pain level reassessed. Patient is alert, oriented x 3, equal unlabored respirations, skin warm/dry/pink. 20:50 Reassessment: IV infiltrated with NS infusing, compression dressing and ice pack ha1 applied. Charge nurse notified. 21:46 Reassessment: Patient and/or family updated on plan of care and expected duration. Pain ha1 level reassessed. Patient is alert, oriented x 3, equal unlabored respirations, skin warm/dry/pink. Vital Signs: 17:14 BP 89 / 61; Pulse 98; Resp 18; Temp 97.2; Pulse Ox 100% on R/A; ph 20:00 BP 98 / 59; Pulse 81; Resp 18; Pulse Ox 97% on R/A; eh3 20:30 BP 108 / 66; Pulse 75; Resp 18; Pulse Ox 99% on R/A; eh3 21:46 BP 105 / 67; Pulse 75; Resp 18 S; Pulse Ox 99% on R/A; ha1 ED Course: 16:44 Patient arrived in ED. mg5 16:45 Berta Morgan FNP-C [facility] kb 16:45 Ludwin Parham MD is Attending Physician. kb 17:19 Triage completed. ph 17:19 Arm band placed on. ph 17:38 CT Lumbar Spine Wo Con In Process Unspecified. EDMS 17:38 CT Head Brain wo Cont In Process Unspecified. EDMS 17:47 Patient has correct armband on for positive identification. Bed in low position. Call eh3 light in reach. Side rails up X2. Adult w/ patient. Provided Education on: Use of call hernandez. Pulse ox on. NIBP on. 18:15 Missed attempt(s): 24 gauge in right antecubital area. Bleeding controlled, band aid ds4 applied, catheter tip intact. 18:15 Missed attempt(s): 24 gauge in left antecubital area. Bleeding controlled, band aid ds4 applied, catheter tip intact. 18:28 Kyung Mays, RN is Primary Nurse. eh3 18:40 Missed attempt(s): 22 gauge in left antecubital area. Bleeding controlled, band aid eh3 applied, catheter tip intact. 19:04 Missed attempt(s): 20 gauge in left antecubital area. Missed attempt(s): 22 gauge in kc6 right antecubital area. 19:47 MRI Lumbar Spine wo Con In Process Unspecified. EDMS 20:29 Lipase Sent. as6 20:29 CMP Sent. as6 20:29 CBC with Diff Sent. as6 20:29 Inserted saline lock: 20 gauge in right antecubital area, using aseptic technique. as6 Blood collected. ultrasound guided, long catheter. 20:50 IV discontinued, intact, bleeding controlled, No redness/swelling at site. Pressure eh3 dressing applied. 21:32 No provider procedures requiring assistance completed. ha1 Administered Medications: 20:45 Drug: NS 0.9% IV 1000 ml IV at 1000 ml once Route: IV; Rate: 1000 ml; Site: right eh3 antecubital; 20:50 Follow up: IV Status: IV infiltrated; IV Intake: 25ml eh3 20:45 Drug: Ketorolac IVP 15 mg IVP once Route: IVP; Site: right antecubital; 3 21:32 Follow up: Response: No adverse reaction ha1 Medication: 21:32 VIS not applicable for this client. ha1 Intake: 20:50 IV: 25ml; Total: 25ml. eh3 Outcome: 21:24 Discharge ordered by MD. kb 21:46 Discharged to home via wheelchair, ha1 21:46 Condition: stable 21:46 Discharge instructions given to patient, family, Instructed on discharge instructions, follow up and referral plans. Demonstrated understanding of instructions, follow-up care, 21:47 Patient left the ED. ha1 Signatures: Dispatcher [employer] EDMS Berta Morgan, SERVICE ESTABLISHMENT ATTENDANT-C SERVICE ESTABLISHMENT ATTENDANT-CkPrasanna Dai ds4 Yanna Mays RN RN Manuel Watts RN RN as6 Kyung Mays RN RN 3 Yolanda Kenny RN RN 1 Elham Ndiaye RN RN [facility] Franca Aponte mg5 Corrections: (The following items were deleted from the chart) 17:20 17:14 Acuity: NELY 3 ph ph 20:52 20:00 BP 98 / 59; eh3 eh3 21:32 20:50 Reassessment: IV infiltrated with NS infusing, compression dressing and ice pack ha1 applied eh3
--- NOTE | 2022-11-14 21:24 | EDPHYS ---
Physician Documentation [facility] Name: Che Helton Age: 56 yrs Sex: Female : 1965 Arrival Date: 11/14/2022 Time: 16:41 Bed 18 Private MD: ED Physician Ludwin Parham HPI: 11/14 21:43 This 56 yrs old Black Female presents to ER via Wheelchair with complaints of Fall kb Injury. 21:43 Details of fall: The patient fell from an upright position. Onset: The symptoms/episode kb began/occurred last month, and became worse today. Associated injuries: The patient sustained injury to the low back, pain, pain with movement, tenderness. Severity of symptoms: At their worst the symptoms were moderate, in the emergency department the symptoms are unchanged. The patient has experienced similar episodes in the past. The patient has not recently seen a physician. Pt reports she has a history of falls. States she broke her back last month after falling and was sent to [place] she has a follow up with neurosurgery on the to determine if they are going to have to do surgery. [facility] she fell again today and has increased pain to low back, as well as decreased sensation to right leg. Historical: - Allergies: 17:19 PENICILLINS; ph 17:19 Sulfa (Sulfonamide Antibiotics); ph - PMHx: 17:19 ADD/ADHD; Anxiety; Bipolar disorder; cardiac arrest; Depression; Diabetes - NIDDM; ph Hyperlipidemia; Hypertension; Myocardial infarction; stroke; - PSHx: 17:19 gastric sleeve; section; knee sx; ph - Immunization history:: Adult Immunizations unknown. - Social history:: Smoking status: Patient reports the use of cigarette tobacco products, smokes one-half pack cigarettes per day. ROS: 21:41 Constitutional: Negative for fever, chills, and weight loss, kb 21:41 Back: Positive for pain at rest, pain with movement, of the lumbar area, 21:41 MS/extremity: Positive for of the right leg, weakness, decreased sensation, 21:41 All other systems are negative, Exam: 21:41 Constitutional: This is a well developed, well nourished patient who is awake, alert, kb and in no acute distress. Head/Face: Normocephalic, atraumatic. ENT: Moist Mucous membranes Cardiovascular: Regular rate Respiratory: Respirations even and unlabored. No increased work of breathing. Talking in full sentences Abdomen/GI: Soft, non-tender. No distention Skin: Warm, dry with normal turgor. Normal color. MS/ Extremity: Pulses equal, no cyanosis. Neurovascular intact. Full, normal range of motion. 21:41 Back: vertebral tenderness, is appreciated at lumbar spine, 21:41 Neuro: Orientation: is normal, Mentation: is normal, Sensation: decreased sensation to right lower extremity, Vital Signs: 17:14 BP 89 / 61; Pulse 98; Resp 18; Temp 97.2; Pulse Ox 100% on R/A; ph 20:00 BP 98 / 59; Pulse 81; Resp 18; Pulse Ox 97% on R/A; eh3 20:30 BP 108 / 66; Pulse 75; Resp 18; Pulse Ox 99% on R/A; eh3 21:46 BP 105 / 67; Pulse 75; Resp 18 S; Pulse Ox 99% on R/A; ha1 MDM: 16:50 Patient medically screened. kb 21:43 Data reviewed: vital signs, nurses notes. kb 21:46 Differential diagnosis: contusion, fracture, sprain, strain. Counseling: I had a kb detailed discussion with the patient and/or guardian regarding the historical points, exam findings, and any diagnostic results supporting the discharge/admit diagnosis, lab results, radiology results, the need for outpatient follow up, a family practitioner, to return to the emergency department if symptoms worsen or persist or if there are any questions or concerns that arise at home. 11/14 17:13 Order name: CBC with Diff; Complete Time: 20:53 kb 11/14 17:13 Order name: CMP; Complete Time: 21:13 kb 11/14 17:13 Order name: Lipase; Complete Time: 21:13 kb 11/14 20:40 Order name: CBC Smear Scan; Complete Time: 20:53 EDMS 11/14 17:13 Order name: CT Lumbar Spine Wo Con; Complete Time: 18:37 kb 11/14 17:13 Order name: CT Head Brain wo Cont; Complete Time: 18:21 kb 11/14 17:16 Order name: MRI Lumbar Spine wo Con; Complete Time: 20:19 kb 11/14 17:13 Order name: IV Saline Lock; Complete Time: 20:29 kb 11/14 17:13 Order name: Labs collected and sent; Complete Time: 20:29 kb Administered Medications: 20:45 Drug: NS 0.9% IV 1000 ml IV at 1000 ml once Route: IV; Rate: 1000 ml; Site: right [facility] antecubital; 20:50 Follow up: IV Status: IV infiltrated; IV Intake: 25ml [facility] 20:45 Drug: Ketorolac IVP 15 mg IVP once Route: IVP; Site: right antecubital; [facility] 21:32 Follow up: Response: No adverse reaction ha1 Disposition: 21:49 Co-signature as Attending Physician, Ludwin Parham MD I reviewed the patient's care rt provided by the Advanced Practice Provider and agree with the diagnosis and treatment plan. Disposition Summary: 11/14/22 21:24 Discharge Ordered Notes: Location: Home kb Condition: Stable kb Diagnosis - Fall on same level from slipping, tripping and stumbling without subsequent kb striking against object - Low back pain kb Followup: kb - With: Emergency Department - When: As needed - Reason: Worsening of condition Followup: kb - With: Private Physician - When: 2 - 3 days - Reason: Recheck today's complaints, Continuance of care, Re-evaluation by your physician Discharge Instructions: - Discharge Summary Sheet kb - Musculoskeletal Pain kb Forms: - Medication Reconciliation Form kb - Thank You Letter kb - Antibiotic Education kb - Prescription Opioid Use kb - Patient Portal Instructions kb - Leadership Thank You Letter kb Signatures: Dispatcher [employer] EDBerta Weir, SENIOR ADMINISTRATIVE ASSISTANT-C SENIOR ADMINISTRATIVE ASSISTANT-Yanna Perkins RN RN Kyung Mays RN RN [facility] Ludwin Parham MD MD rt Yolanda Kenny RN ha1 Corrections: (The following items were deleted from the chart) 17:53 17:37 Spine Lumbar Wo Con+CT.RAD.BRZ ordered. EDMS EDMS
[2022-11-14 23:10] VITALS: TEMP 97.2
[2022-11-14 23:13] VITALS: O2SAT 99
[2022-11-14 23:15] VITALS: BP 105/67
== END 2022-11-14 21:47 | disposition home or self-care (01) ==
LOC: ER 16:41
DX: M54.50 Low back pain, unspecified (principal); W01.0XXA Fall on same level from slipping, tripping and stumbling without subsequent striking against object, initial encounter; F17.210 Nicotine dependence, cigarettes, uncomplicated; E11.9 Type 2 diabetes mellitus without complications; I10 Essential (primary) hypertension; Z88.0 Allergy status to penicillin; Z88.2 Allergy status to sulfonamides
CPT/HCPCS: 85025; 36415; 83690; 80053; 72131; 70450; 72148; J7030

== ENCOUNTER 2023-03-23 16:11 | Inpatient (IN) | payer OTHER ==
[2023-03-23] MEDS ORDERED: MORPHINE 4 MG/ML SYR ONE (16:40)
[2023-03-23] MEDS ORDERED: ONDANSETRON 4 MG/2 ML VIAL ONE (16:40)
[2023-03-23 16:51] LABS: Absolute Lymphocytes (CBC) 2.2 K/uL (0.7-4.9); Hematocrit 33.8 % (36.0-45.0); Lymphocytes % 29.6 % (15.3-44.8); MCV 84.7 fL (80-100); MPV 8.1 fL (7.6-11.3); Platelets 277 thou/uL (152-406); RBC Red Blood Cell Count 3.99 M/uL (3.86-4.86)
--- NOTE | 2023-03-23 16:55 | RAD REPORT ---
EXAM DESCRIPTION: RAD - Knee Left 3 View - 03/23/2023 4:46 pm CLINICAL HISTORY: Left knee pain FINDINGS: No fracture or dislocation is seen.
[2023-03-23 16:56] LABS: Potassium 3.2 mEq/L (3.5-5.1)
--- NOTE | 2023-03-23 16:59 | RAD REPORT ---
EXAM DESCRIPTION: CT - Head Brain Wo Cont - 03/23/2023 4:47 pm CLINICAL HISTORY: fall with head injury COMPARISON: October 2022 TECHNIQUE: Computed axial tomography of the head was obtained. IV contrast was not requested. All CT scans are performed using dose optimization technique as appropriate and may include automated exposure control or mA/KV adjustment according to patient size. FINDINGS: An intracranial bleed is not seen The ventricles are normal in caliber No significant hypodense areas within the brain visualized No extra-axial fluid collection is noted. Fluid within the sinuses/ mastoids is not seen IMPRESSION: No acute intracranial abnormality is seen If patient's symptoms persist MRI of the brain would be recommended
--- NOTE | 2023-03-23 17:08 | EDPHYS ---
Physician Documentation [facility] Name: Che Helton Age: 57 yrs Sex: Female : 1965 Arrival Date: 03/23/2023 Time: 16:11 Bed 20 Private MD: Orlando Bates ED Physician Ludwin Parham HPI: 03/23 16:23 This 57 yrs old Black Female presents to ER via Unassigned with complaints of Fall sb4 Injury. 16:23 The patient or guardian reports injury, pain, swelling, tenderness. The complaints sb4 affect the right side of the back of head. Context of injury: The problem was sustained at home, resulted from a fall, from a standing position. Onset: The symptoms/episode began/occurred 3 day(s) ago. Associated signs and symptoms: Pertinent positives: headache, injury. The patient has not experienced similar symptoms in the past. 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 16:27 patient states that she stood up after using the restroom 3 days ago and passed out, sb4 hit her head on the floor. she states that she has had a headache and dizziness since. is on eliquis. Historical: - Allergies: 16:26 PENICILLINS; as6 16:26 Sulfa (Sulfonamide Antibiotics); as6 - PMHx: 16:26 ADD/ADHD; Anxiety; Bipolar disorder; cardiac arrest; Depression; Diabetes - NIDDM; as6 Hyperlipidemia; Hypertension; Myocardial infarction; stroke; - PSHx: 16:26 gastric sleeve; knee sx; section; back ( section); as6 - Immunization history:: Adult Immunizations up to date. - Social history:: Smoking status: Patient reports the use of cigarette tobacco products, smokes one-half pack cigarettes per day. ROS: 16:23 Constitutional: Negative for fever, chills, and weight loss, sb4 16:23 Neuro: Positive for dizziness, headache, 16:23 All other systems are negative, Exam: 16:27 Constitutional: This is a well developed, well nourished patient who is awake, alert, sb4 and in no acute distress. Eyes: Extra-ocular motions intact. Periorbital areas with no swelling, redness, or edema. ENT: Mucous membranes moist. Cardiovascular: Regular rate and rhythm with a normal S1 and S2. Respiratory: Lungs have equal breath sounds bilaterally, clear to auscultation and percussion. No rales, rhonchi or wheezes noted. No increased work of breathing, no retractions or nasal flaring. Abdomen/GI: Soft, non-tender, no distension. Skin: Warm, dry with normal turgor. Normal color with no rashes, no lesions, and no evidence of cellulitis. MS/ Extremity: Pulses equal, no cyanosis. Neurovascular intact. Full, normal range of motion. Neuro: Awake and alert, GCS 15, oriented to person, place, time, and situation. Motor strength 5/5 in all extremities. Sensory grossly intact. 16:27 Head/face: Noted is contusion, that is superficial, of the right side of the back of head, hematoma, that is mild, of the right side of the back of head, swelling, tenderness, Vital Signs: 16:24 BP 119 / 60; Pulse 92; Resp 18 S; Temp 98; Pulse Ox 98% on R/A; Weight 81.19 kg (R); as6 Height 5 ft. 3 in. (R); Pain 10/10; 18:02 BP 111 / 65; Pulse 80; Resp 18; Pulse Ox 100% ; cp4 16:24 Body Mass Index 31.71 (81.19 kg, 160.02 cm) as6 16:24 Pain Scale: Adult as6 Branch Coma Score: 16:28 Eye Response: spontaneous(4). Motor Response: obeys commands(6). Verbal Response: sb4 oriented(5). Total: 15. MDM: 16:18 Patient medically screened. sb4 16:28 Differential diagnosis: Contusion of head, Hematoma on head, Intracranial bleed- sb4 subdural, epidural, Concussion without LOC. cerebral contusion. 17:07 Data reviewed: vital signs, nurses notes, lab test result(s), radiologic studies, and sb4 as a result, I will admit patient. Consideration of Admission/Observation Patient was admitted/placed on observation. Care significantly affected by the following chronic conditions: Diabetes, Hypertension. Counseling: I had a detailed discussion with the patient and/or guardian regarding the historical points, exam findings, and any diagnostic results supporting the discharge/admit diagnosis, lab results, radiology results, the need for further work-up and treatment in the hospital. 03/23 16:22 Order name: Basic Metabolic Panel; Complete Time: 17:01 sb4 03/23 16:22 Order name: CBC with Diff; Complete Time: 17:01 sb4 03/23 17:03 Order name: UAM; Complete Time: 17:24 sb4 03/23 17:33 Order name: Urinalysis w/ reflexes EDMS 03/23 17:33 Order name: Basic Metabolic Panel EDMS 03/23 17:33 Order name: Basic Metabolic Panel EDMS 03/23 17:33 Order name: Basic Metabolic Panel EDMS 03/23 17:33 Order name: Basic Metabolic Panel EDMS 03/23 17:33 Order name: Basic Metabolic Panel EDMS 03/23 17:33 Order name: CBC with Automated Diff EDMS 03/23 17:33 Order name: CBC with Automated Diff EDMS 03/23 17:33 Order name: CBC with Automated Diff EDMS 03/23 17:33 Order name: CBC with Automated Diff EDMS 03/23 17:33 Order name: CBC with Automated Diff EDMS 03/23 17:33 Order name: Magnesium EDMS 03/23 17:33 Order name: Magnesium EDMS 03/23 17:33 Order name: Magnesium EDMS 03/23 17:33 Order name: Magnesium EDMS 03/23 17:33 Order name: Magnesium EDMS 03/23 17:36 Order name: Urine Drug Screen EDMS 03/23 17:41 Order name: Creatine Phosphokinase; Complete Time: 18:11 EDMS 03/23 16:22 Order name: Head Brain Wo Cont CT; Complete Time: 17:01 4 03/23 16:25 Order name: Knee Left 3 View XRAY; Complete Time: 17:01 sb4 03/23 17:35 Order name: CT-CERVICAL SPINE W/O CONTRAST EDMS 03/23 17:35 Order name: CT-SPINE LUMBAR W/O CONTRAST EDMS 03/23 18:20 Order name: CT; Complete Time: 18:20 EDMS 03/23 17:30 Order name: CONS Physician Consult EDNV 03/23 16:22 Order name: Labs collected and sent; Complete Time: 16:44 sb4 Administered Medications: 16:52 Drug: morphine IVP or IV 4 mg IVP once over 4 mins Route: IVP; Infused Over: 4 mins; cp4 Site: right antecubital; 17:15 Follow up: Response: No adverse reaction cp4 16:52 Drug: Ondansetron IVP 4 mg IVP once; over 2 minutes Route: IVP; Site: right antecubital;cp4 17:15 Follow up: Response: No adverse reaction cp4 17:15 Drug: NS 0.9% IV 1000 ml IV at 1 bolus Per protocol; 1000 mL bolus Route: IV; Rate: 1 cp4 bolus; Site: right antecubital; 18:05 Follow up: Response: No adverse reaction; IV Status: Completed infusion cp4 17:25 Drug: Potassium Chloride PO Liquid 40 mEq PO once Route: PO; cp4 Disposition: 18:24 Co-signature as Attending Physician, Ludwin Parham MD I reviewed the patient's care rt provided by the Advanced Practice Provider and agree with the diagnosis and treatment plan. Disposition Summary: 03/23/23 17:08 Hospitalization Ordered Notes: Hospitalization Status: Inpatient Admission sb4 Provider: True Vazquez Location: Telemetry/[facility] (Inpatient) sb4 Condition: Fair sb4 Problem: new sb4 Symptoms: are unchanged sb4 Bed/Room Type: Standard sb4 Room Assignment: 209(03/23/23 17:44) eb Diagnosis - Acute kidney failure, unspecified sb4 Forms: - Medication Reconciliation Form sb4 - SBAR form sb4 - Leadership Thank You Letter sb4 Signatures: Dispatcher [employer] Maria Luisa Ellington Ashby, RN RN as6 Floridalma Nelson, YARELI PABrodie sb4 Ludwin Parham MD MD rt Sena Luevano cp4 Corrections: (The following items were deleted from the chart) 16:29 16:27 patient states that she stood up after using the restroom 3 days ago and passed sb4 out, hit her head on the floor. she states that she has had a headache and dizziness since. sb4 17:44 17:08 sb4 eb
--- NOTE | 2023-03-23 17:08 | ER ---
Nurse's Notes [facility] Name: Che Helton Age: 57 yrs Sex: Female : 1965 Arrival Date: 03/23/2023 Time: 16:11 Bed 20 Private MD: Orlando Bates Diagnosis: Acute kidney failure, unspecified Presentation: 03/23 16:24 Chief complaint: Patient states: had a syncopal episode Saturday and fell back and hit as6 her head and since then pt has had headaches and increased dizziness. Coronavirus screen: At this time, the client does not indicate any symptoms associated with coronavirus-19. Ebola Screen: No symptoms or risks identified at this time. Initial Sepsis Screen: Does the patient meet any 2 criteria? No. Patient's initial sepsis screen is negative. Does the patient have a suspected source of infection? No. Patient's initial sepsis screen is negative. Risk Assessment: Do you want to hurt yourself or someone else? Patient reports no desire to harm self or others. Onset of symptoms was March 20, 2023. 16:24 Method Of Arrival: Ambulatory as6 16:24 Acuity: NELY 3 as6 Historical: - Allergies: 16:26 PENICILLINS; as6 16:26 Sulfa (Sulfonamide Antibiotics); as6 - PMHx: 16:26 ADD/ADHD; Anxiety; Bipolar disorder; cardiac arrest; Depression; Diabetes - NIDDM; as6 Hyperlipidemia; Hypertension; Myocardial infarction; stroke; - PSHx: 16:26 gastric sleeve; knee sx; section; back ( section); as6 - Immunization history:: Adult Immunizations up to date. - Social history:: Smoking status: Patient reports the use of cigarette tobacco products, smokes one-half pack cigarettes per day. Screenin:44 [facility] ED Fall Risk Assessment (Adult) History of falling in the last 3 months, cp4 including since admission No falls in past 3 months (0 pts) Confusion or Disorientation No (0 pts) Intoxicated or Sedated No (0 pts) Impaired Gait No (0 pts) Mobility Assist Device Used No (0 pt) Altered Elimination No (0 pt) Score/Fall Risk Level 0 - 2 = Low Risk Oriented to surroundings, Maintained a safe environment, Educated pt \T\ family on fall prevention, incl call for assistance when getting out of bed, Assessed \T\ reinforced patient's understanding of fall precautions, Hourly rounding (assess needs \T\ fall precautionary measures) done. Abuse screen: Denies threats or abuse. Nutritional screening: No deficits noted. Tuberculosis screening: No symptoms or risk factors identified. Assessment: 16:44 General: Appears in no apparent distress. Behavior is calm, cooperative, appropriate cp4 for age. Pain:. Vital Signs: 16:24 BP 119 / 60; Pulse 92; Resp 18 S; Temp 98; Pulse Ox 98% on R/A; Weight 81.19 kg (R); as6 Height 5 ft. 3 in. (R); Pain 10/10; 18:02 BP 111 / 65; Pulse 80; Resp 18; Pulse Ox 100% ; cp4 16:24 Body Mass Index 31.71 (81.19 kg, 160.02 cm) as6 16:24 Pain Scale: Adult as6 [place] Coma Score: 16:28 Eye Response: spontaneous(4). Motor Response: obeys commands(6). Verbal Response: sb4 oriented(5). Total: 15. ED Course: 16:15 Patient arrived in ED. mr 16:15 Orlando Bates MD is Private Physician. mr 16:17 Floridalma Nelson [facility]. sb4 16:17 Ludwin Parham MD is Attending Physician. sb4 16:22 Sena Luevano is Primary Nurse. cp4 16:26 Triage completed. as6 16:27 Arm band placed on. as6 16:44 No provider procedures requiring assistance completed. Inserted saline lock: 20 gauge cp4 in right antecubital area, using aseptic technique. Blood collected. 16:48 Knee Left 3 View XRAY In Process Unspecified. EDMS 16:49 Head Brain Wo Cont CT In Process Unspecified. EDMS 17:07 True Vazquez MD is Hospitalizing Provider. sb4 18:02 Bed in low position. Call light in reach. Side rails up X2. Provided Education on: cp4 admission. 18:02 Patient admitted, IV remains in place. cp4 Administered Medications: 16:52 Drug: morphine IVP or IV 4 mg IVP once over 4 mins Route: IVP; Infused Over: 4 mins; cp4 Site: right antecubital; 17:15 Follow up: Response: No adverse reaction cp4 16:52 Drug: Ondansetron IVP 4 mg IVP once; over 2 minutes Route: IVP; Site: right antecubital;cp4 17:15 Follow up: Response: No adverse reaction cp4 17:15 Drug: NS 0.9% IV 1000 ml IV at 1 bolus Per protocol; 1000 mL bolus Route: IV; Rate: 1 cp4 bolus; Site: right antecubital; 18:05 Follow up: Response: No adverse reaction; IV Status: Completed infusion cp4 17:25 Drug: Potassium Chloride PO Liquid 40 mEq PO once Route: PO; cp4 Medication: 16:44 VIS not applicable for this client. cp4 Outcome: 17:08 Decision to Hospitalize by Provider. sb4 18:02 Admitted to Med/surg accompanied by nurse, via wheelchair, with chart, Report called to cp4 Bee 18:02 Condition: stable 18:02 Instructed on the need for admit, Demonstrated understanding of instructions, 18:24 Patient left the ED. 4 Signatures: Dispatcher [employer] [facility] Christy Bonilla, Manuel Escobar, RN RN as6 Floridalma Nelson, PA-C PA-C sb4 Sena Luevano 4
[2023-03-23] MEDS ORDERED: NA CHLORIDE 0.9% 1,000 ML ONE (17:10)
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
[2023-03-23] MEDS ORDERED: POTASSIUM 25 MEQ EFFERV TAB ONE (17:22)
[2023-03-23 17:24] LABS: Specific Gravity 1.021 (1.005-1.030); Urine Bacteria None Seen /HPF (<20); Urine Bilirubin NEGATIVE (Negative); Urine Blood Negative (Negative); Urine Clarity Turbid (Clear); Urine Color Light-Yellow (Yellow); Urine Glucose NEGATIVE (Negative); Urine Mucus Slight /HPF (None Seen); Urine Protein 1+ (Negative); Urine RBC <5 /HPF (None Seen); Urine Urobilinogen Normal (Normal); Urine pH 5.5 (5.0-7.0)
[2023-03-23] MEDS ORDERED: ONDANSETRON 4 MG/2 ML VIAL IV PRN (17:28)
[2023-03-23] MEDS ORDERED: ACETAMINOPHEN 500 MG TAB PO PRN (17:28)
[2023-03-23] MEDS ORDERED: NA CHLORIDE 0.9% 1,000 ML IV SCH (18:00)
[2023-03-23] MEDS: NA CHLORIDE 0.9% 1,000 ML IV SCH (18:00)
--- NOTE | 2023-03-23 18:19 | RAD REPORT ---
EXAM DESCRIPTION: CT - C Spine Wo Con - 03/23/2023 6:03 pm CLINICAL HISTORY: Fall with neck injury and neck pain COMPARISON: August 2022 TECHNIQUE: Computed axial tomography of the cervical spine were obtained with sagittal and coronal r econstruction images generated and reviewed. All CT scans are performed using dose optimization technique as appropriate and may include automated exposure control or mA/KV adjustment according to patient size. FINDINGS: A cervical fracture is not seen. No dislocation. No high-grade central/foraminal stenosis noted IMPRESSION: A cervical fracture is not seen. No high-grade central/foraminal stenosis noted If the patient continues have symptoms to suggest spinal cord/spinal canal pathology then MRI would b e recommended.
--- NOTE | 2023-03-23 18:27 | RAD REPORT ---
EXAM DESCRIPTION: CTSpine Lumbar Wo Con03/23/2023 6:04 pm CLINICAL HISTORY: Back pain status post fall COMPARISON: October 2022 TECHNIQUE: Computed axial tomography lumbar spine was obtained with coronal and sagittal reconstruct ion. All CT scans are performed using dose optimization technique as appropriate and may include automated exposure control or mA/KV adjustment according to patient size. FINDINGS: Pedicular screws united by rods have been placed L4 and L5. Laminectomy. Evaluation of spi nal canal is somewhat limited at these levels. No acute fracture or dislocation seen. No high-grade central stenosis visualized IMPRESSION: Negative for a lumbar fracture. If patient continues have symptoms to suggest spinal canal pathology MRI would be recommended
[2023-03-23] MEDS: METOPROLOL TAR 25 MG TAB PO SCH (18:35)
[2023-03-23 20:00] VITALS: BMI 31.6
[2023-03-23] MEDS: QUETIAPINE 100MG TAB PO SCH (20:48)
[2023-03-23] MEDS: ATORVASTATIN 40 MG TAB PO SCH (20:50)
[2023-03-23] MEDS: INSULIN REGULAR (HUMAN) 100 UNIT/ML SQ SCH (20:50)
[2023-03-24] MEDS: HYDROCODONE/APAP 5/325 MG TAB PO PRN (00:42)
[2023-03-24] MEDS: HEPARIN 5000 UNIT/ML 1 ML VIAL SQ SCH ×4 (00:43→20:34)
[2023-03-24] MEDS: NA CHLORIDE 0.9% 1,000 ML IV SCH ×4 (04:00→20:42)
[2023-03-24 04:12] LABS: Absolute Lymphocytes (CBC) 3.1 K/uL (0.7-4.9); Hematocrit 29.1 % (36.0-45.0); Lymphocytes % 46.8 % (15.3-44.8); MCV 85.8 fL (80-100); MPV 8.6 fL (7.6-11.3); Platelets 212 thou/uL (152-406); RBC Red Blood Cell Count 3.39 M/uL (3.86-4.86)
[2023-03-24 04:33] LABS: Magnesium 2.2 mg/dL (1.6-2.4)
[2023-03-24] MEDS: METOPROLOL TAR 25 MG TAB PO SCH ×2 (06:00→17:07)
[2023-03-24] MEDS ORDERED: POTASSIUM CL SA 10 MEQ TAB PO ONE ×2 (06:00→17:27)
[2023-03-24] MEDS: INSULIN REGULAR (HUMAN) 100 UNIT/ML SQ SCH ×4 (07:30→20:35)
[2023-03-24] MEDS: DULOXETINE 30 MG CAP PO SCH (08:41)
--- NOTE | 2023-03-24 08:56 | P.PN ---
Subjective Date of Service: 03/24/23 Chief Complaint: Acute renal failure No reported overnight events, no reported nausea vomiting, reports headache, - Physical Exam General: Alert, In no apparent distress, Oriented x3 HEENT: Atraumatic, Normocephalic Neck: Supple, 2+ carotid pulse no bruit Respiratory: Clear to auscultation bilaterally, Normal air movement Cardiovascular: No edema, Normal pulses Capillary refill: <2 Seconds Gastrointestinal: Normal bowel sounds, Soft and benign Musculoskeletal: No clubbing, No swelling Integumentary: No rashes, No breakdown Neurological: Normal speech, Normal strength at 5/5 x4 extr Review of Systems per HPI Physical Examination - Vital Signs Temperature: 98.6 F Blood Pressure: 105/51 Pulse: 61 Respirations: 14 Pulse Ox (%): 100 - Studies Laboratory Data (last 24 hrs) 03/23/23 03/23/23 16:30 16:30 WBC 7.40 Hgb 11.6 L Hct 33.8 L Plt Count 277 Sodium 140 Potassium 3.2 L BUN 35 H Creatinine 2.28 H Glucose 105 Assessment And Plan - Plan Assessment plan Fall Back pain Chronic back pain DJD Status post lumbar laminectomy November 2022 Fall precautions,reports numbness in finger tips, toes PT, PRN anaglescs UA pending, urine drug screen pending, CT of the head no acute intracranial abnormality, left knee pain no fracture noted Cervical spine FINDINGS: A cervical fracture is not seen. lumbar spine CT FINDINGS: Pedicular screws united by rods have been placed L4 and L5. Laminectomy. Evaluation of spinal canal is somewhat limited at these levels.No acute fracture or dislocation seen.No high-grade central stenosis visualized IMPRESSION: Negative for a lumbar fracture. Urine drug screen follows pain manage headache PRN analgesics Acute renal failure unknown baseline CK2 269 IV fluids increase fluids to 150 Nephrology consulted BUN 35 creatinine 2.38, estimated GFR 24,->BUN 24/2.7eGFR 25 Educated on avoiding NSAIDs for nephrotoxicity Hypokalemia hypokalemia potassium 3.2, replaced. 3.0 will replace this am Microcytic anemia microcytic anemia 11.6, 33.8, hemoglobin dropped to 10.0 Will DC heparin, change SCDs for DVT prophylax History of CVA History of anxiety History of depression History of bipolar Hyperlipidemia History of Resume appropriate home Fall precaution Full code Renal DVT heparin Discharge Plan: Home - Code Status/Comfort Care Code Status: Full Code Critical Care: No Time Spent Managing PTS Care (In Minutes): 35
[2023-03-24] MEDS: HYDROMORPHONE HCL 0.5 MG/0.5 ML INJ IV PRN ×3 (11:24→23:29)
[2023-03-24] MEDS ORDERED: NA CHLORIDE 0.9% 500 ML IV ONE (12:03)
[2023-03-24 16:27] LABS: Potassium 3.7 mEq/L (3.5-5.1)
[2023-03-24] MEDS: QUETIAPINE 100MG TAB PO SCH (20:34)
[2023-03-24] MEDS: ATORVASTATIN 40 MG TAB PO SCH (20:35)
--- NOTE | 2023-03-24 21:35 | RAD REPORT ---
EXAM DESCRIPTION: US - Renal Ultrasound-Complete - 03/24/2023 9:23 pm CLINICAL HISTORY: [place] COMPARISON: Abdomen Single View dated 03/13/2022; Spine Lumbar Wo Con dated 03/23/2023 FINDINGS: Both kidneys are normal in size, shape and echotexture. The right kidney measures 9 cm. No hydronephrosis, focal mass or perinephric fluid. The left kidney measures 8.9 cm. No hydronephrosis, focal mass or perinephric fluid. The urinary bladder is incompletely distended without gross abnormality seen. IMPRESSION: No evidence of hydronephrosis. Unremarkable renal ultrasound.
[2023-03-25 00:27] LABS: UR PROTEIN 38.2 mg/dL (<11.9); Urine Protein/Creatinine Ratio 0.28 ratio (<0.15)
[2023-03-25 00:52] LABS: Barbiturates NEGATIVE (NEGATIVE); Benzodiazepines NEGATIVE (NEGATIVE); Cocaine NEGATIVE (NEGATIVE); METHAMPHETAM NEGATIVE (NEGATIVE); Methadone NEGATIVE (NEGATIVE); Opiates POSITIVE (NEGATIVE); Phencyclidine NEGATIVE (NEGATIVE); THC Cannibis NEGATIVE (NEGATIVE)
[2023-03-25] MEDS: METOPROLOL TAR 25 MG TAB PO SCH (05:45)
[2023-03-25] MEDS: HYDROCODONE/APAP 5/325 MG TAB PO PRN (05:54)
[2023-03-25 06:28] LABS: Absolute Lymphocytes (CBC) 1.9 K/uL (0.7-4.9); Hematocrit 27.5 % (36.0-45.0); Lymphocytes % 48.3 % (15.3-44.8); MPV 8.7 fL (7.6-11.3); Platelets 166 thou/uL (152-406)
[2023-03-25 06:43] LABS: Potassium 3.8 mEq/L (3.5-5.1)
[2023-03-25] MEDS: INSULIN REGULAR (HUMAN) 100 UNIT/ML SQ SCH ×2 (07:30→11:30)
[2023-03-25] MEDS: DULOXETINE 30 MG CAP PO SCH (08:47)
[2023-03-25] MEDS: HEPARIN 5000 UNIT/ML 1 ML VIAL SQ SCH (08:47)
[2023-03-25 09:01] VITALS: O2SAT 100
[2023-03-25 10:17] VITALS: TEMP 97.8
--- NOTE | 2023-03-25 11:45 | CON ---
Date of Consultation: 03/24/2023 Chief Complaint: Acute renal failure. History Of Present Illness: The patient is a 57-year-old woman with past medical history significant for myocardial infarction, CVA, diabetes hyperlipidemia. The patient presented to emergen cy room after she sustained fall at home. She was complaining of back pain. She complain s of generalized weakness. She reported that she passed out and hit her head on the floor, and she u nderwent workup in the emergency room. CT scan of the head did not show intracranial abnormalities. She was there was no fracture noted. Lab work done in the emergency room showed elevated BUN and creatinine. BUN was 55, creatinine ranging from 60 to 70. The patient has been seen by primary physician for hypertension and she stated that kidney function was stable 2 weeks ago . The patient nonsteroidal anti-inflammatory medication, [id number] medication for back pain prior to this admission. She did not have decreased p.o. intake at this admissi on, although she denies diarrhea, nausea, vomiting. She denies edema, chest pain, palpitation. Review of Systems: Constitutional: Denies fever, chills. Eyes: Denies vision changes. Ears, Nose, Mouth, and Throat: Denies sore throat, earache. Respiratory: Denies PND, orthopnea. Cardiovascular: Denies chest pain, palpitation. GI: Denies nausea, vomiting. : Denies dysuria, hematuria. Musculoskeletal: She was complaining of back pain after she sustained a fall. All other systems reviewed and all are negative. Past Medical History: history of myocardial infarction, coronary artery disease, depressi on, heart catheterization. Left foot surgery, 2013. CVA, August 2015. Right-sided weaknes s . Family History: Physical Examination: General: The patient is awake, alert, Eyes: Anicteric sclerae. EOMI. Ears, Nose, Mouth, and Throat: Oral mucosa moist. No pallor. Neck: Supple. No bruits. Lungs: Diminished Heart: S1, S2. Abdomen: Extremities: Edema in both ankles. Laboratory Data: Hemoglobin potassium 3.2, BUN 45, creatinine 2.28. Impression And Plan: 1.Acute kidney injury, nonoliguric. The patient is on IV fluids acute kidney injury. Th e patient is on avoid nonsteroidal anti-inflammatory medication because of nephrotoxicity. 2.Hypokalemia. Potassium did not have uremic symptoms. She does not need hemodialysis a nd plan is to continue . 3.History of cerebrovascular accident per Primary team. . 4.Hyperlipidemia. Plan is to check CK level in view of recent fall and to rule out rhabdomyolysis. Monitor test in view of treatment with cholesterol-lowering medication. BRENDON/MODL Voice ID: [id number] Report ID: [id number]
[2023-03-25] MEDS: HYDROMORPHONE HCL 0.5 MG/0.5 ML INJ IV PRN (13:01)
[2023-03-25 13:13] VITALS: BP 140/71
--- NOTE | 2023-03-25 13:47 | P.DS ---
Admission Date: 03/23/23 Discharge Date: 03/25/23 Disposition: ROUTINE DISCHARGE Discharge Condition: GOOD Reason for Admission: Acute renal failure Brief History of Present Illness: 57-year-old with a past medical history of NM, CVA, diabetes, depression, bipolar, anxiety, ADD, hyperlipidemia, presents to the emergency room after a fall. She reports complaining of back pain. She reported fall from a standing position. She reports fall occurred 3 days ago. She reports she passed out and hit her head on the floor. She reports headache, dizziness, on Eliquis. She denies numbness weakness, nausea vomiting dizziness edema. No recent pain with range of motion. She reports being followed by pain management. Plan to admit for fall, chronic anticoagulation, dizziness, acute renal failure. Laboratory evaluation BUN 35 creatinine 2.38, estimated GFR 24, hypokalemia potassium 3.2, microcytic anemia 11.6, 33.8, UA pending, urine drug screen pending, CT of the head no acute intracranial abnormality, left knee pain no fracture noted Hospital Course: Pt is a 57-yo female with past medical history of NM, CVA, diabetes, depression, bipolar, anxiety, ADD, and hyperlipidemia who presented s/p fall at home. Pt complained of hitting her head on the floor. Of note, pt recently had hack surgery. On admission, lab studies show evidence of acute renal failure and hypokalemia. We admitted pt and gave IVF. renal ultrasound was unremarkable. Pt was advised to avoid NSAID and stay hydrated at home. We repleted electrolytes. CT head was unremarkable. CT lumbar spine was negative for acute fracture. Pt ambulated without difficulty. CK level was 269 and we continued IVF. We resumed atorvastatin due to history of CVA. Her symptoms improved and she requested to be discharged. Pt was in NAD prior to discharge. Vital Signs/Physical Exam: Temp Pulse Resp BP Pulse Ox 97.8 F 68 18 140/71 94 03/25/23 12:00 03/25/23 12:00 03/25/23 12:00 03/25/23 12:00 03/25/23 12:00 Laboratory Data at Discharge: WBC 4.00 thou/uL (4.3-10.9) L 03/25/23 05:40 Hgb 9.2 g/dL (12.0-15.0) L 03/25/23 05:40 Hct 27.5 % (36.0-45.0) L 03/25/23 05:40 Plt Count 166 thou/uL (152-406) 03/25/23 05:40 Sodium 143 mEq/L (136-145) 03/25/23 05:40 Potassium 3.8 mEq/L (3.5-5.1) 03/25/23 05:40 BUN 25 mg/dL (7-18) H 03/25/23 05:40 Creatinine 1.55 mg/dL (0.55-1.02) H 03/25/23 05:40 Glucose 94 mg/dL (74-106) 03/25/23 05:40 Magnesium 2.0 mg/dL (1.6-2.4) 03/25/23 05:40 Home Medications: Duloxetine HCl [Cymbalta] 30 mg PO DAILY 04/14/18 Quetiapine Fumarate [Seroquel] 300 mg PO BEDTIME 04/14/18 Gabapentin 300 mg PO TIDP PRN 07/08/21 Triamterene/Hydrochlorothiazid [Triamterene-Hctz 37.5-25 mg Tb] 1 each PO DAILY 07/08/21 Lubiprostone 1 cap PO DAILYPRN PRN 02/15/22 Apixaban [Eliquis *] 1 tab PO BID 03/23/23 Duloxetine HCl [Cymbalta] 60 mg PO BEDTIME 03/23/23 Ergocalciferol (Vitamin D2) [Vitamin D2] 1 cap PO SEECOM 03/23/23 Linaclotide [Linzess] 1 cap PO DAILY 03/23/23 OXcarbazepine [Oxcarbazepine] 3 tab PO DAILY 03/23/23 Semaglutide [Ozempic] 2 mg SQ SEECOM 03/23/23 Sitagliptin Phosphate [Januvia] 100 mg PO DAILY 03/23/23 Topiramate 50 mg PO DAILY 03/23/23 methocarbamoL [Methocarbamol] 500 mg PO QIDP PRN 03/23/23 Atorvastatin Calcium [Lipitor] 40 mg PO BEDTIME 90 Days #90 tab 03/25/23 Metoprolol Tartrate [Lopressor*] 12.5 mg PO BID 6AM 6PM 30 Days #60 tab 01/29/24 New Medications: Atorvastatin Calcium [Lipitor] 40 mg PO BEDTIME 90 Days #90 tab Metoprolol Tartrate [Lopressor*] 12.5 mg PO BID 6AM 6PM 30 Days #60 tab Physician Discharge Instructions: Continue ad huber activity. Take home meds as prescribed. Drink water at home. Follow up with PCP and Nephrology within 1 week. Diet: AHA Activity: Ad huber Followup: Michelle Hansen MD [COURTESY - CAN ADMIT] - Orlando Bates MD [Primary Care Provider] -
--- NOTE | 2023-03-25 22:00 | PN ---
Date of Progress Note: 03/25/2023 Chief Complaint: Acute kidney injury. Subjective: The patient is a 57-year-old woman with past medical history significant for myocardial infarction, CVA, diabetes mellitus, hyperlipidemia, obesity. The patient presented to emergency room because of status post fall. She fell at home. She was complaining of back pain and she was taking nonsteroidal anti-inflammatory medication. The patient was found to have acute kidney injury. She was started on IV fluids and renal function has gradually improved. Urinalysis did not show active urinary sediment, and ultrasound did not show hydronephrosis. Review of Systems: The patient is feeling better. She denies PND, orthopnea. Physical Examination: Lungs: Clear to auscultation bilaterally. Heart: S1, S2. Abdomen: Soft. Extremities: Slight edema in both ankles. Impression And Plan: 1. Acute kidney injury, nonoliguric, secondary to prerenal azotemia and nonoliguric acute tubular necrosis. On arrival to the hospital, BUN was 45 and creatinine 2.28. The patient responded to IV fluids, and the patient is tolerating p.o. intake. Continue to monitor renal function and electrolytes. Avoid nonsteroidal anti-inflammatory medication because of nephrotoxicity. 2. The patient was found to have hypokalemia, and she received treatment for hypokalemia. The patient did not have uremic symptoms and she did not need dialysis. 3. History of cerebrovascular accident, per Primary team. 4. Hyperlipidemia. CK level did not show significant elevation. The patient did not have rhabdomyolysis. BRENDON/SELENA Voice ID: [id number] Report ID: [id number] YAMILKA
== END 2023-03-25 17:38 | disposition home or self-care (01) | DRG 683 ==
LOC: ER 16:11 → ERHOLD 17:25 → 2ND 18:04
PROVIDERS: ADMIT Hospitalist; ATTEND Hospitalist
DX: N17.0 Acute kidney failure with tubular necrosis (principal); I69.351 Hemiplegia and hemiparesis following cerebral infarction affecting right dominant side; E11.9 Type 2 diabetes mellitus without complications; D50.9 Iron deficiency anemia, unspecified; E78.5 Hyperlipidemia, unspecified; E66.9 Obesity, unspecified; F31.9 Bipolar disorder, unspecified; E87.6 Hypokalemia; M47.9 Spondylosis, unspecified; F41.8 Other specified anxiety disorders; M25.562 Pain in left knee; I25.2 Old myocardial infarction; M54.9 Dorsalgia, unspecified; R51.9 Headache, unspecified; F98.8 Other specified behavioral and emotional disorders with onset usually occurring in childhood and adolescence; R42 Dizziness and giddiness; G89.29 Other chronic pain; W18.30XA Fall on same level, unspecified, initial encounter; Z79.01 Long term (current) use of anticoagulants; Z68.30 Body mass index [BMI] 30.0-30.9, adult; Y92.009 Unspecified place in unspecified non-institutional (private) residence as the place of occurrence of the external cause
CPT/HCPCS: 36415; 70450; 72125; 72131; 76770; 80048; 80307; 81001; 82550; 82570; 82947; 83735; 84132; 84156; 85025; 97116; 97161; 97530; J1170; J1644; J2405; J7030

== ENCOUNTER 2023-03-30 17:06 | Inpatient (IN) | payer OTHER ==
[2023-03-30 17:49] LABS: Absolute Lymphocytes (CBC) 1.9 K/uL (0.7-4.9); Hematocrit 34.2 % (36.0-45.0); Lymphocytes % 30.5 % (15.3-44.8); MPV 8.1 fL (7.6-11.3); Platelets 291 thou/uL (152-406); RBC Red Blood Cell Count 3.97 M/uL (3.86-4.86)
[2023-03-30 18:05] LABS: Potassium 3.6 mEq/L (3.5-5.1)
[2023-03-30 18:07] LABS: Troponin High Sensitivity 144.7 pg/mL (<58.9)
[2023-03-30 18:10] LABS: SARS-CoV-2 Antigen Rapid Res Negative (Negative)
--- NOTE | 2023-03-30 18:42 | RAD REPORT ---
EXAM DESCRIPTION: RAD - Chest Single View - 03/30/2023 6:37 pm CLINICAL HISTORY: SOB Chest pain. COMPARISON: Chest Single View dated 03/13/2022; Chest Single View dated 02/13/2022; Chest Single View dated 07/07/2021; Chest Single View dated 06/01/2021 FINDINGS: Portable technique limits examination quality. The lungs are grossly clear. The heart is normal in size. No displaced fractures. IMPRESSION: No acute intrathoracic process suspected.
[2023-03-30] MEDS ORDERED: ACETAMINOPHEN 500 MG TAB ONE (18:43)
--- NOTE | 2023-03-30 19:03 | EDPHYS ---
Physician Documentation [facility] Name: Che Helton Age: 57 yrs Sex: Female : 1965 Arrival Date: 03/30/2023 Time: 17:06 Bed 7 Private MD: ED Physician Marty Burnett HPI: 03/30 17:14 This 57 yrs old Black Female presents to ER via Unassigned with complaints of shortness sb4 of breath. 17:14 patient states that she was discharged from here about 6 days ago after treatment of sb4 acute kidney injury. on discharge, metoprolol was added to her daily medications. she states that since she has started it, she has been dizzy and short of breath. when EMS arrived, they noted her to be mildly hypotensive- 92/64. Historical: - Allergies: 17:17 PENICILLINS; tl4 17:17 Sulfa (Sulfonamide Antibiotics); tl4 - PMHx: 17:17 ADD/ADHD; Anxiety; Bipolar disorder; cardiac arrest; Depression; Diabetes - NIDDM; tl4 Hyperlipidemia; Hypertension; Myocardial infarction; stroke; - PSHx: 17:17 back (an); section; gastric sleeve; knee sx; tl4 - Immunization history:: Adult Immunizations unknown. - Social history:: Smoking status: Patient reports the use of cigarette tobacco products, smokes one-half pack cigarettes per day. ROS: 17:14 Constitutional: Negative for fever, chills, and weight loss, sb4 17:14 Respiratory: Positive for shortness of breath, 17:14 Neuro: Positive for dizziness, 17:14 All other systems are negative, Exam: 17:14 Constitutional: This is a well developed, well nourished patient who is awake, alert, sb4 and in no acute distress. Head/Face: Normocephalic, atraumatic. Eyes: Extra-ocular motions intact. Periorbital areas with no swelling, redness, or edema. ENT: Mucous membranes moist. Cardiovascular: Regular rate and rhythm with a normal S1 and S2. Respiratory: Lungs have equal breath sounds bilaterally, clear to auscultation and percussion. No rales, rhonchi or wheezes noted. No increased work of breathing, no retractions or nasal flaring. Abdomen/GI: Soft, non-tender, no distension. Skin: Warm, dry with normal turgor. Normal color with no rashes, no lesions, and no evidence of cellulitis. MS/ Extremity: Pulses equal, no cyanosis. Neurovascular intact. Full, normal range of motion. Neuro: Awake and alert, GCS 15, oriented to person, place, time, and situation. Motor strength 5/5 in all extremities. Sensory grossly intact. Vital Signs: 17:15 BP 104 / 68; Pulse 99; Resp 17; Temp 97.9; Pulse Ox 95% on R/A; Weight 81.65 kg; Height tl4 5 ft. 3 in. ; Pain 0/10; 17:17 BP 102 / 67; Pulse 96; Resp 18; Pulse Ox 97% on R/A; ld1 18:46 BP 111 / 93; Pulse 85; Resp 18; Pulse Ox 100% on R/A; ld1 19:36 BP 120 / 57; Pulse 99; Pulse Ox 95% on R/A; tm6 20:28 BP 90 / 63; Pulse 89; Resp 20 S; Pulse Ox 100% on R/A; km8 17:15 Body Mass Index 31.89 (81.65 kg, 160.02 cm) tl4 17:15 Pain Scale: Adult tl4 MDM: 17:09 Patient medically screened. sb4 17:14 Differential diagnosis: pneumonia, hypotension, covid, flu. sb4 19:01 Antibiotic administration: Not indicated. Data reviewed: vital signs, nurses notes, lab sb4 test result(s), EKG, radiologic studies, I have discussed the patient's presentation/case with the attending Emergency Department Physician; and as a result, I will admit patient. Consideration of Admission/Observation Patient was admitted/placed on observation. Care significantly affected by the following chronic conditions: Diabetes, Hypertension. Counseling: I had a detailed discussion with the patient and/or guardian regarding the historical points, exam findings, and any diagnostic results supporting the discharge/admit diagnosis, lab results, radiology results, the need for further work-up and treatment in the hospital. 03/30 17:09 Order name: Basic Metabolic Panel; Complete Time: 18:10 sb4 03/30 17:09 Order name: CBC with Diff; Complete Time: 17:59 sb4 03/30 17:09 Order name: NT PRO-BNP; Complete Time: 18:10 sb4 02/03 17:09 Order name: Troponin HS; Complete Time: 18:10 sb4 03/30 17:16 Order name: SARS RAPID; Complete Time: 18:11 sb4 03/30 17:16 Order name: Flu; Complete Time: 18:10 sb4 03/30 20:11 Order name: UAM sb4 03/30 20:18 Order name: CBC with Automated Diff EDMS 03/30 20:18 Order name: CBC with Automated Diff EDMS 03/30 20:18 Order name: Comprehensive Metabolic Panel EDMS 03/30 20:18 Order name: Comprehensive Metabolic Panel EDMS 03/30 20:18 Order name: Troponin High Sensitivity EDMS 03/30 20:18 Order name: Troponin High Sensitivity EDMS 03/30 20:18 Order name: Troponin High Sensitivity EDMS 03/30 20:18 Order name: Troponin High Sensitivity EDMS 03/30 17:09 Order name: XRAY Chest (1 view); Complete Time: 18:44 sb4 03/30 17:09 Order name: EKG; Complete Time: 17:10 sb4 03/30 17:09 Order name: Cardiac monitoring; Complete Time: 17:13 sb4 03/30 17:09 Order name: EKG - Nurse/Tech; Complete Time: 17:55 sb4 03/30 17:09 Order name: IV Saline Lock; Complete Time: 17:35 sb4 03/30 17:09 Order name: Labs collected and sent; Complete Time: 17:35 sb4 03/30 17:09 Order name: O2 Per Protocol; Complete Time: 17:12 sb4 03/30 17:09 Order name: O2 Sat Monitoring; Complete Time: 17:12 sb4 Administered Medications: 18:45 Drug: Acetaminophen PO 1000 mg PO once Route: PO; ld1 20:26 Follow up: Response: No adverse reaction km8 21:04 Drug: SEROquel PO 300 mg PO once Route: PO; km8 Disposition Summary: 03/30/23 19:02 Hospitalization Ordered Notes: Hospitalization Status: Observation sb4 Provider: Kal Serrano sb4 Location: Telemetry/MedSurg (observation) sb4 Condition: Fair sb4 Problem: new sb4 Symptoms: are unchanged sb4 Bed/Room Type: Standard sb4 Room Assignment: 407(03/30/23 20:24) jb4 Diagnosis - Angina pectoris, unspecified sb4 - Dyspnea sb4 - Hypotension, unspecified sb4 Forms: - Medication Reconciliation Form sb4 - SBAR form sb4 - Leadership Thank You Letter sb4 Signatures: Dispatcher [employer] Mohinder Huizar RN RN jb4 Marlyn Hathaway RN RN ld1 Floridalma Nelson, PABrodie PABrodie sb4 Kristal Ospina RN RN km8 Loipaul, Brenden tl4 Corrections: (The following items were deleted from the chart) 19:38 19:02 Hypotension due to drugs sb4 sb4 20:24 19:02 sb4 jb4
--- NOTE | 2023-03-30 19:03 | ER ---
Nurse's Notes [facility] Name: Che Helton Age: 57 yrs Sex: Female : 1965 Arrival Date: 03/30/2023 Time: 17:06 Bed 7 Private MD: Diagnosis: Angina pectoris, unspecified;Dyspnea;Hypotension, unspecified Presentation: 03/30 17:15 Chief complaint: Patient states: Pt c/o gradual onset of shortness of breath and tl4 lightheadedness x 2 days. Pt denies CP, fever/chills. Coronavirus screen: Vaccine status: Patient reports receiving the 2nd dose of the covid vaccine. Ebola Screen: No symptoms or risks identified at this time. Initial Sepsis Screen: Does the patient meet any 2 criteria? No. Patient's initial sepsis screen is negative. Does the patient have a suspected source of infection? No. Patient's initial sepsis screen is negative. Risk Assessment: Do you want to hurt yourself or someone else? Patient reports no desire to harm self or others. Onset of symptoms was March 28, 2023. 17:15 Method Of Arrival: EMS: [facility] tl4 17:15 Acuity: NELY 3 tl4 Triage Assessment: 17:17 General: Appears in no apparent distress. Behavior is calm, cooperative. Pain: Denies tl4 pain. EENT: No deficits noted. No signs and/or symptoms were reported regarding the EENT system. Neuro: No deficits noted. Cardiovascular: Reports lightheadedness, shortness of breath, Denies chest pain, diaphoresis, fatigue, nausea, palpitations, syncope, Rhythm is sinus rhythm. Respiratory: Reports shortness of breath Onset: The symptoms/episode began/occurred gradually, the patient has mild shortness of breath. GI: No deficits noted. No signs and/or symptoms were reported involving the gastrointestinal system. : No deficits noted. No signs and/or symptoms were reported regarding the genitourinary system. Derm: No deficits noted. No signs and/or symptoms reported regarding the dermatologic system. Historical: - Allergies: 17:17 PENICILLINS; tl4 17:17 Sulfa (Sulfonamide Antibiotics); tl4 - PMHx: 17:17 ADD/ADHD; Anxiety; Bipolar disorder; cardiac arrest; Depression; Diabetes - NIDDM; tl4 Hyperlipidemia; Hypertension; Myocardial infarction; stroke; - PSHx: 17:17 back (an); section; gastric sleeve; knee sx; tl4 - Immunization history:: Adult Immunizations unknown. - Social history:: Smoking status: Patient reports the use of cigarette tobacco products, smokes one-half pack cigarettes per day. Screenin:19 [facility] ED Fall Risk Assessment (Adult) History of falling in the last 3 months, tl4 including since admission Yes- physiologic fall (2 pts) Confusion or Disorientation No (0 pts) Intoxicated or Sedated No (0 pts) Impaired Gait No (0 pts) Mobility Assist Device Used Yes (1 pt) Altered Elimination No (0 pt) Score/Fall Risk Level 3 or more points = High Risk Oriented to surroundings, Maintained a safe environment, Educated pt \T\ family on fall prevention, incl call for assistance when getting out of bed, Assessed \T\ reinforced patient's understanding of fall precautions, Provided non-skid footwear, Hourly rounding (assess needs \T\ fall precautionary measures) done, Used ambulatory aids as needed (educated on \T\ assisted with), Used gait belt as appropriate. Abuse screen: Denies threats or abuse. Denies injuries from another. Nutritional screening: No deficits noted. Tuberculosis screening: No symptoms or risk factors identified. Assessment: 17:21 Reassessment: No changes from previously documented assessment. Patient and/or family tl4 updated on plan of care and expected duration. Pain level reassessed. Patient is alert, oriented x 3, equal unlabored respirations, skin warm/dry/pink. Cardiovascular: Reports lightheadedness, shortness of breath. Cardiovascular: Capillary refill < 3 seconds Patient's skin is warm and dry. Rhythm is sinus rhythm Chest pain is denied. Respiratory: Airway is patent Respiratory effort is even, unlabored, Breath sounds are clear bilaterally. 18:46 Reassessment: Patient appears in no apparent distress at this time. No changes from ld1 previously documented assessment. Patient and/or family updated on plan of care and expected duration. Pain level reassessed. Patient is alert, oriented x 3, equal unlabored respirations, skin warm/dry/pink. 19:36 Reassessment: Patient appears in no apparent distress at this time. No changes from tm6 previously documented assessment. Patient and/or family updated on plan of care and expected duration. Pain level reassessed. Patient is alert, oriented x 3, equal unlabored respirations, skin warm/dry/pink. 20:25 Reassessment: Patient appears in no apparent distress at this time. No changes from km8 previously documented assessment. Patient and/or family updated on plan of care and expected duration. Pain level reassessed. Patient is alert, oriented x 3, equal unlabored respirations, skin warm/dry/pink. Vital Signs: 17:15 BP 104 / 68; Pulse 99; Resp 17; Temp 97.9; Pulse Ox 95% on R/A; Weight 81.65 kg; Height tl4 5 ft. 3 in. ; Pain 0/10; 17:17 BP 102 / 67; Pulse 96; Resp 18; Pulse Ox 97% on R/A; ld1 18:46 BP 111 / 93; Pulse 85; Resp 18; Pulse Ox 100% on R/A; ld1 19:36 BP 120 / 57; Pulse 99; Pulse Ox 95% on R/A; tm6 20:28 BP 90 / 63; Pulse 89; Resp 20 S; Pulse Ox 100% on R/A; km8 17:15 Body Mass Index 31.89 (81.65 kg, 160.02 cm) tl4 17:15 Pain Scale: Adult tl4 ED Course: 17:09 Patient arrived in ED. sb4 17:09 Floridalma Nelson PA-C is PHCP. sb4 17:09 Marty Burnett MD is Attending Physician. sb4 17:13 Brenden Dela Cruz is Primary Nurse. tl4 17:16 Triage completed. tl4 17:19 Arm band placed on Patient placed in an exam room, on a stretcher. tl4 17:20 Patient has correct armband on for positive identification. Placed in gown. Bed in low tl4 position. Call light in reach. Side rails up X2. Provided Education on: ed process. Client placed on continuous cardiac and pulse oximetry monitoring. NIBP monitoring applied. fancy packer on. Door closed. Noise minimized. Lights dimmed. Moved to private room. Warm blanket given. 17:20 No provider procedures requiring assistance completed. Maintain EMS IV. Dressing tl4 intact. Good blood return noted. Site clean \T\ dry. Gauge \T\ site: 22g left forearm. 17:35 Basic Metabolic Panel Sent. tl4 17:35 Flu Sent. tl4 17:35 SARS RAPID Sent. tl4 17:36 CBC with Diff Sent. tl4 17:36 NT PRO-BNP Sent. tl4 17:36 Troponin HS Sent. tl4 18:38 XRAY Chest (1 view) In Process Unspecified. EDMS 19:02 Kal Serrano MD is Hospitalizing Provider. sb4 20:25 Patient admitted, IV remains in place. km8 Administered Medications: 18:45 Drug: Acetaminophen PO 1000 mg PO once Route: PO; ld1 20:26 Follow up: Response: No adverse reaction km8 21:04 Drug: SEROquel PO 300 mg PO once Route: PO; km8 Medication: 17:19 VIS not applicable for this client. tl4 Outcome: 19:02 Decision to Hospitalize by Provider. sb4 21:03 Admitted to Med/surg accompanied by tech, via wheelchair, room 407, with chart, Report km8 called to JULIEN Mojica 21:03 Condition: stable 21:03 Instructed on the need for admit, Demonstrated understanding of instructions, 21:35 Patient left the ED. tm6 Signatures: Dispatcher [employer] EDMS Marlyn Hathaway, RN RN ld1 Floridalma Nelson, PA-C PA-C sb4 Kristal Ospina RN RN km8 Silvestre Higginbotham RN RN tm6 Brenden Dela Cruz tl4
[2023-03-30] MEDS ORDERED: ACETAMINOPHEN 325 MG TABLET PO PRN (20:12)
[2023-03-30] MEDS ORDERED: ONDANSETRON 4 MG/2 ML VIAL IV PRN (20:12)
[2023-03-30] MEDS: QUETIAPINE 100MG TAB ONE (20:58)
[2023-03-30 22:13] VITALS: BMI 34.9
[2023-03-30] MEDS: NA CHLORIDE 0.9% 1,000 ML IV SCH (22:30)
[2023-03-31] MEDS: HEPARIN 5000 UNIT/ML 1 ML VIAL SQ SCH (01:20)
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
[2023-03-31 05:40] LABS: Absolute Lymphocytes (CBC) 2.9 K/uL (0.7-4.9); Lymphocytes % 45.2 % (15.3-44.8); MCV 86.6 fL (80-100); MPV 7.9 fL (7.6-11.3); Platelets 257 thou/uL (152-406); RBC Red Blood Cell Count 3.35 M/uL (3.86-4.86)
[2023-03-31 06:01] LABS: ALT/SGPT 20 U/L (13-56); Albumin 3.1 g/dL (3.4-5.0); Alkaline Phosphatase 82 U/L (45-117); BUN Blood Urea Nitrogen 24 mg/dL (7-18); Bicarbonate 22 mEq/L (21-32); Bilirubin Total 0.2 mg/dL (0.2-1.0); Glomerular Filtration Rate 29 ml/min (=/>90); Glucose Level 121 mg/dL (74-106); Potassium 3.2 mEq/L (3.5-5.1); Protein, Total 6.7 g/dL (6.4-8.2); Sodium Level 140 mEq/L (136-145)
[2023-03-31 06:08] LABS: AST/SGOT < 4 U/L (15-37)
[2023-03-31] MEDS: POTASSIUM CL SA 10 MEQ TAB PO SCH (08:12)
--- NOTE | 2023-03-31 09:46 | P.PN ---
Subjective Date of Service: 03/31/23 Chief Complaint: Acute kidney injury, weakness, elevated troponin. Pt is resting comfortably in bed. She presents with BRAULIO and NSTEMI. At bedside, pt denies any chest pain. No other issues overnight. Review of Systems Unremarkable General: Unremarkable Eyes: Unremarkable ENT: Unremarkable Respiratory: Unremarkable Cardiovascular: Unremarkable Gastrointestinal: Unremarkable Genitourinary: Unremarkable Musculoskeletal: Unremarkable Integumentary: Unremarkable Neurological: Unremarkable Lymphatics: Unremarkable Physical Examination - Vital Signs Temperature: 97.9 F Blood Pressure: 90/63 Pulse: 89 Respirations: 20 Pulse Ox (%): 99 - Physical Exam General: Alert, In no apparent distress, Oriented x3, Obese HEENT: Atraumatic, Normocephalic, PERRLA Neck: Supple, 2+ carotid pulse no bruit Respiratory: Clear to auscultation bilaterally, Normal air movement Cardiovascular: No edema, Normal pulses, Regular rate/rhythm, Normal S1 S2 Capillary refill: <2 Seconds Gastrointestinal: Normal bowel sounds, Soft and benign, Non-distended Musculoskeletal: No clubbing, No swelling Integumentary: No rashes, No breakdown Neurological: Normal gait, Normal speech, Normal strength at 5/5 x4 extr, Normal tone, Sensation intact, Cranial nerves 3-12 intact Lymphatics: No axilla or inguinal lymphadenopathy - Studies Laboratory Data (last 24 hrs) 03/30/23 03/30/23 17:31 17:31 WBC 6.30 Hgb 11.6 L Hct 34.2 L Plt Count 291 Sodium 138 Potassium 3.6 BUN 23 H Creatinine 2.03 H Glucose 101 Microbiology Data (last 24 hrs): 03/30/23 17:23 Nasopharnyx Influenza Type A Antigen Screen - Final 03/30/23 17:23 Nasopharnyx Influenza Type B Antigen Screen - Final Assessment And Plan - Plan Acute kidney injury: Cally 1.98. Likely pre-renal. Continue IVF, avoid nephrotoxins and monitor renal function. NSTEMI: Pt has elevated troponin ( 129 <- 133 <- 152 <- 144). Will continue Telemetry and follow up Echo. Pt denies any chest pain. Consulted cardiology. Hypotension: Hold BP med due to hypotension. BP is 90/63. Will monitor vital signs. Diabetes type 2: COntinue accuchek, SSI and ADA diet Hypokalemia: K is 3.2. Will replete and monitor. Hyperlipidemia: statin therapy. Anemia: Hgb is 9.8. Will monitor H/H. Obesity: Pt was advised tolose weight. DVT Prophylaxis: Eliquis. Code: Full code. Disposition: Pending hospital course.
[2023-03-31] MEDS: QUETIAPINE 100MG TAB PO SCH (20:23)
[2023-04-01 07:26] LABS: Absolute Lymphocytes (CBC) 2.7 K/uL (0.7-4.9); Hematocrit 29.1 % (36.0-45.0); Lymphocytes % 49.5 % (15.3-44.8); MCV 86.2 fL (80-100); MPV 8.4 fL (7.6-11.3); Platelets 237 thou/uL (152-406); RBC Red Blood Cell Count 3.37 M/uL (3.86-4.86)
[2023-04-01 07:32] LABS: Potassium 4.1 mEq/L (3.5-5.1)
--- NOTE | 2023-04-01 10:38 | P.PN ---
Subjective Date of Service: 04/01/23 Chief Complaint: Acute kidney injury, weakness, elevated troponin. Pt is resting comfortably in bed. She presents with BRAUILO and NSTEMI. At bedside, pt denies any chest pain. Waiting for Cardiology eval. No other issues overnight. Review of Systems Unremarkable General: Unremarkable Eyes: Unremarkable ENT: Unremarkable Respiratory: Unremarkable Cardiovascular: Unremarkable Gastrointestinal: Unremarkable Genitourinary: Unremarkable Musculoskeletal: Unremarkable Integumentary: Unremarkable Neurological: Unremarkable Lymphatics: Unremarkable Physical Examination - Vital Signs Temperature: 98.6 F Blood Pressure: 166/74 Pulse: 61 Respirations: 17 Pulse Ox (%): 100 - Physical Exam General: Alert, In no apparent distress, Oriented x3 HEENT: Atraumatic, Normocephalic, PERRLA Neck: Supple, 2+ carotid pulse no bruit Respiratory: Clear to auscultation bilaterally, Normal air movement Cardiovascular: No edema, Normal pulses, Regular rate/rhythm, Normal S1 S2 Capillary refill: <2 Seconds Gastrointestinal: Normal bowel sounds, Soft and benign, Non-distended Musculoskeletal: No clubbing, No swelling Integumentary: No rashes, No breakdown Neurological: Normal speech, Normal strength at 5/5 x4 extr, Normal tone, Sensation intact, Cranial nerves 3-12 intact Lymphatics: No axilla or inguinal lymphadenopathy Assessment And Plan - Plan Acute kidney injury: Cr is 1.46 <- 1.98. Likely pre-renal. Continue IVF, avoid nephrotoxins and monitor renal function. NSTEMI: Pt has elevated troponin (129 <- 133 <- 152 <- 144). Will continue Telemetry and follow up Echo. Pt denies any chest pain. Consulted cardiology. Hypotension: Hold BP med due to hypotension. BP is 90/63. Will monitor vital signs. Diabetes type 2: Continue accuchek, SSI and ADA diet Hypokalemia: K is 4.1 <- 3.2. Will replete and monitor. Hyperlipidemia: statin therapy. Anemia: Hgb is 9.9. Will monitor H/H. Obesity: Pt was advised tolose weight. DVT Prophylaxis: Eliquis. Code: Full code. Disposition: Pending hospital course.
[2023-04-01 10:55] VITALS: O2SAT 100
[2023-04-01] MEDS: FUROSEMIDE 40 MG/4 ML VIAL IV SCH (11:49)
[2023-04-01] MEDS: HYDRALAZINE HCL 20 MG/ML VIAL IV ONE (13:56)
--- NOTE | 2023-04-01 14:11 | P.DS ---
Admission Date: 03/31/23 Discharge Date: 04/01/23 Disposition: ROUTINE DISCHARGE Discharge Condition: GOOD Reason for Admission: Acute kidney injury, weakness, elevated troponin. Brief History of Present Illness: She is a 57 year-old female patient medically significant for diabetes type 2, hypertension, hyperlipidemia, history of anxiety/bipolar disorder that was episode was treated for BRAULIO recently. She was discharged home after episode of brief hospital stay for hydration purposes and creatinine improved with IV hydration. At that time she was also using send patient returns today with bilateral low blood pressure, lethargy and she was found to have a creatinine of 2.0 with hypotension. She was given IV fluid and admitted for inpatient care. There was no overt episode of chest pain however initial troponin 1 in the ER was concerning so she was admitted for ACS workup. No cough, fever, chills, rigor, nausea, diarrhea reported. Hospital Course: Pt is a 57 yo female with past medical history of diabetes type 2, hypertension, hyperlipidemia, and anxiety/bipolar disorder who presented with hypotension and lethargy. Of note, pt was recently treated for BRAULIO. She was discharged home after episode of brief hospital stay for hydration purposes and creatinine improved with IV hydration. During this admission, pt presented with Cr is 2 and elevated troponin (129 <- 133 <- 152 <- 144). Pt was admitted for BRAULIO and NSTEMI. Pt denied any chest pain. Cardiology evaluated pt and cleared her for discharge. She recently had normal cardiac work up. We held BP meds due to hypotension. Pt was advised to stop taking triamtrene/ HCTZ. We repleted potassium and continued home med for other chronic medical problems. pt was in NAD prior to discharge. Vital Signs/Physical Exam: Temp Pulse Resp BP Pulse Ox 98.6 F 61 17 166/74 H 100 04/01/23 10:38 04/01/23 10:38 04/01/23 10:38 04/01/23 10:38 04/01/23 10:38 Laboratory Data at Discharge: WBC 5.50 thou/uL (4.3-10.9) 04/01/23 06:24 Hgb 9.9 g/dL (12.0-15.0) L 04/01/23 06:24 Hct 29.1 % (36.0-45.0) L 04/01/23 06:24 Plt Count 237 thou/uL (152-406) 04/01/23 06:24 Sodium 140 mEq/L (136-145) 04/01/23 06:24 Potassium 4.1 mEq/L (3.5-5.1) D 04/01/23 06:24 BUN 19 mg/dL (7-18) H 04/01/23 06:24 Creatinine 1.46 mg/dL (0.55-1.02) H 04/01/23 06:24 Glucose 89 mg/dL (74-106) 04/01/23 06:24 Magnesium 2.3 mg/dL (1.6-2.4) 03/31/23 05:00 Total Bilirubin 0.2 mg/dL (0.2-1.0) 03/31/23 05:00 AST < 4 U/L (15-37) L 03/31/23 05:00 ALT 20 U/L (13-56) 03/31/23 05:00 Alkaline Phosphatase 82 U/L (45-117) 03/31/23 05:00 Home Medications: Duloxetine HCl [Cymbalta] 30 mg PO DAILY 04/14/18 Quetiapine Fumarate [Seroquel] 300 mg PO BEDTIME 04/14/18 Gabapentin 300 mg PO TIDP PRN 07/08/21 Lubiprostone 1 cap PO DAILYPRN PRN 02/15/22 Apixaban [Eliquis *] 1 tab PO BID 03/23/23 Duloxetine HCl [Cymbalta] 60 mg PO BEDTIME 03/23/23 Ergocalciferol (Vitamin D2) [Vitamin D2] 1 cap PO SEECOM 03/23/23 Linaclotide [Linzess] 1 cap PO DAILY 03/23/23 OXcarbazepine [Oxcarbazepine] 3 tab PO DAILY 03/23/23 Semaglutide [Ozempic] 2 mg SQ SEECOM 03/23/23 Sitagliptin Phosphate [Januvia] 100 mg PO DAILY 03/23/23 Topiramate 50 mg PO DAILY 03/23/23 methocarbamoL [Methocarbamol] 500 mg PO QIDP PRN 03/23/23 Atorvastatin Calcium [Lipitor] 40 mg PO BEDTIME 90 Days #90 tab 03/25/23 Metoprolol Tartrate [Lopressor*] 12.5 mg PO BID 6AM 6PM 30 Days #60 tab 03/25/23 Amlodipine [Norvasc*] 5 mg PO DAILY 60 Days #60 tab 04/01/23 New Medications: Amlodipine [Norvasc*] 5 mg PO DAILY 60 Days #60 tab Physician Discharge Instructions: Continue ad huber activity. take Amlodipine and other home meds as prescribed. Stop taking Triamtrene/HCTZ. FOllow up with PCP within 1 week. Diet: AHA Activity: Ad huber Followup: Orlando Bates MD [Primary Care Provider] -
[2023-04-01 14:42] VITALS: BP 133/64; TEMP 97.8
--- NOTE | 2023-04-01 15:04 | EKG ---
Test Date: 2023-03-30 Test Time: 17:49:28 [id number] Operator: Gianluca OAKES MEASUREMENT RESULTS: Intervals: Rate: 98 IL: 162 QRSD: 86 QT: 392 QTc: 500 [place]: P: 90 IL: 162 QRS: 44 T: -1 INTERPRETIVE STATEMENTS: Normal sinus rhythm Right atrial enlargement Minimal voltage criteria for LVH, may be normal variant Lateral infarct, possibly acute Prolonged QT Abnormal ECG Compared to ECG 03/13/2022 13:22:02 T-wave abnormality no longer present Possible ischemia no longer present Electronically Signed On 04-01-23 15:00:01 COUNTER POCKET SEWER by Uli Nicole
--- NOTE | 2023-04-01 15:04 | EKG ---
Test Date: 2023-03-30 Test Time: 18:11:16 Inletter: HB MEASUREMENT RESULTS: Intervals: Rate: 93 VA: 164 QRSD: 106 QT: 408 QTc: 507 [place]: P: 79 VA: 164 QRS: 4 T: 57 INTERPRETIVE STATEMENTS: Normal sinus rhythm Right atrial enlargement Voltage criteria for left ventricular hypertrophy Prolonged QT Abnormal ECG Compared to ECG 03/30/2023 17:51:21 Left ventricular hypertrophy now present Prolonged QT interval now present Myocardial infarct finding no longer present Electronically Signed On 04-01-23 14:59:21 [employer] PATIENTS by Uli Nicole
--- NOTE | 2023-04-01 15:04 | EKG ---
Test Date: 2023-03-30 Test Time: 17:51:21 Bedspread Cutter Hand: Gianluca OAKES MEASUREMENT RESULTS: Intervals: Rate: 93 TN: 164 QRSD: 90 QT: 402 QTc: 499 [place]: P: 88 TN: 164 QRS: 77 T: 4 INTERPRETIVE STATEMENTS: Normal sinus rhythm Right atrial enlargement Abnormal ECG Compared to ECG 03/30/2023 17:49:28 Left ventricular hypertrophy no longer present Prolonged QT interval no longer present Electronically Signed On 04-01-23 14:59:45 NEW ORDER CLERK by Uli Nicole
--- NOTE | 2023-04-01 15:44 | CON ---
Date of Consultation: 04/01/2023 Reason For Consultation: Elevated troponin. History Of Present Illness: -ghwl-dyi female, history of diabetes, hypertension, dyslipide marcin, was noted with generalized weakness and dizziness, found to be dehydrated with acute renal failu re. Troponin was slightly elevated. Hence, I was consulted. She denies having any chest pain. She apparently had a coronary angiogram about a year ago with us and it was normal totally. Past Medical History: As outlined above in the HPI. Medications: Refer to reconciliation sheet for detailed list. Allergies: PENICILLIN AND SULFA. Family History: No premature coronary artery disease or cancer. Social History: Active smoker. Does not drink or use any drugs. Review of Systems: All systems reviewed and they were negative except as mentioned in the HPI. Physical Examination: Vital Signs: Reviewed. Head and Neck: Pupils are equal, reactive to light. Intact eye movements. No JVD. No cervical lym phadenopathy. Neck is supple. Thyroid is not enlarged. Lungs: Clear to auscultation bilaterally. No rhonchi, rales, or crackles. No accessory muscle use. Heart: Irregular. No extra sounds. Abdomen: Soft, nontender. Bowel sounds positive. No organomegaly. No masses or hernia. No rigidi ty or rebound. Extremities: No edema, clubbing, or cyanosis. Intact pulses. Skin: No rash or nodules. Neurologic: Alert, awake, oriented x3. No acute focal deficits appreciated. Investigations: Creatinine 2 on admission, now 1.46. Troponin peaked at 252 and it is trending down . Hemoglobin 9.9. Assessment And Recommendations: 1.Elevated troponin. This is demand ischemia. She had normal coronary angiogram last year. No fur ther cardiac workup is needed. 2.Acute renal failure due to dehydration, improved with gentle fluid management. I believe this can be stopped now and avoid diuretics as an outpatient for her blood pressure. 3.Hypertension. Blood pressure is well controlled. Avoid diuretics, as above. 4.Dyslipidemia. Continue her home statin. Cardiology will sign off. SR/MODL Voice ID: [id number] Report ID: [id number]
== END 2023-04-01 15:09 | disposition home or self-care (01) | DRG 280 ==
LOC: ER 17:06 → 4TH 20:12 → OBSVTOIN 03-31 15:25
PROVIDERS: ADMIT Internal Medicine Nephrology; ATTEND Hospitalist
DX: I21.4 Non-ST elevation (NSTEMI) myocardial infarction (principal); N17.0 Acute kidney failure with tubular necrosis; E11.9 Type 2 diabetes mellitus without complications; I10 Essential (primary) hypertension; D64.9 Anemia, unspecified; I95.9 Hypotension, unspecified; E87.6 Hypokalemia; E86.0 Dehydration; E78.5 Hyperlipidemia, unspecified; I25.10 Atherosclerotic heart disease of native coronary artery without angina pectoris; I25.2 Old myocardial infarction; F17.210 Nicotine dependence, cigarettes, uncomplicated; Z88.0 Allergy status to penicillin; Z88.2 Allergy status to sulfonamides; Z98.84 Bariatric surgery status; Z11.52 Encounter for screening for COVID-19; Z79.01 Long term (current) use of anticoagulants; Z86.73 Personal history of transient ischemic attack (TIA), and cerebral infarction without residual deficits; Z79.899 Other long term (current) drug therapy; Z86.711 Personal history of pulmonary embolism; Z96.652 Presence of left artificial knee joint; Z89.412 Acquired absence of left great toe
CPT/HCPCS: 36415; 71045; 80048; 80053; 83735; 83880; 84484; 85025; 87804; 87811; 93005; G0378; J1644; J1940; J7030

== ENCOUNTER 2023-10-07 20:26 | Observation (INO) | payer OTHER ==
[2023-10-07 20:48] LABS: Absolute Lymphocytes (CBC) 2.6 K/uL (0.7-4.9); Absolute Monocytes 0.2 K/uL (0.1-1.3); Absolute Neutrophil 2.7 K/uL (1.8-8.0); Basophils % 0.7 % (0-1.3); Eosinophils % 0.7 % (0-4.4); Hematocrit 35.3 % (36.0-45.0); Hemoglobin 11.4 g/dL (12.0-15.0); Lymphocytes % 46.8 % (15.3-44.8); MCH 29.6 pg (27.0-35.0); MCHC 32.3 g/dL (32.0-36.0); MCV 91.6 fL (80-100); MPV 8.7 fL (7.6-11.3); Monocytes % 3.9 % (3.3-12.3); Neutrophils % 47.9 % (41.7-73.7); Nucleated Red Blood Cells % 0.1 % (0-0); Platelets 273 thou/uL (152-406); RBC Red Blood Cell Count 3.85 M/uL (3.86-4.86); Red Cell Distribution Width 14.5 % (12.1-15.2)
[2023-10-07 21:10] LABS: Albumin 4.1 g/dL (3.4-5.0); Albumin/Globulin Ratio 1.1 (1.1-1.8); Anion Gap 11.2 mEq/L (5.0-15.0); Bilirubin Direct 0.2 mg/dL (0-0.2); Bilirubin Indirect, Calculated 0.2 mg/dL (0.2-0.8); Bilirubin Total 0.4 mg/dL (0.2-1.0); Globulin 3.9 g/dL (2.3-3.5); Magnesium 2.5 mg/dL (1.6-2.4); Potassium 3.2 mEq/L (3.5-5.1)
[2023-10-07] MEDS ORDERED: ONDANSETRON 4 MG/2 ML VIAL ONE (21:13)
[2023-10-07] MEDS ORDERED: MORPHINE 4 MG/ML SYR ONE (21:14)
[2023-10-07 21:15] LABS: Troponin High Sensitivity 170.4 pg/mL (<58.9)
[2023-10-07] MEDS ORDERED: NA CHLORIDE 0.9% 1,000 ML ONE (21:20)
--- NOTE | 2023-10-07 21:22 | RAD REPORT ---
EXAM DESCRIPTION: Justin Single View10/07/2023 9:13 pm CLINICAL HISTORY: Chest pain COMPARISON: March 2023 FINDINGS: The lungs appear clear of acute infiltrate. The heart is normal size IMPRESSION: No acute abnormalities displayed
[2023-10-07 21:29] LABS: PT Prothrombin Time 13.7 SECONDS (9.4-12.5)
[2023-10-07 21:30] LABS: Protime INR 1.23
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
--- NOTE | 2023-10-07 22:22 | ER ---
Nurse's Notes [facility] Name: Che Helton Age: 57 yrs Sex: Female : 1965 Arrival Date: 10/07/2023 Time: 20:26 Bed 8 Private MD: Diagnosis: NSTEMI Presentation: 10/06 20:30 Chief complaint: Chief complaint: Patient states: c/o chest pain, squeezing and mt4 tightness pain 9/10, radiates to left arm and shoullder with numbness, tingling and headache. Some SOB with exertion. States "feels loopy upon standing". States had mini Heart attack back in april. PMH: anxiety, depression, bipolar. Allergies to sulfa. denies nausea and vomiting. Coronavirus screen: Client denies travel out of the [place] in the last 14 days. At this time, the client does not indicate any symptoms associated with coronavirus-19. Ebola Screen: No symptoms or risks identified at this time. Initial Sepsis Screen: Does the patient meet any 2 criteria? No. Patient's initial sepsis screen is negative. Does the patient have a suspected source of infection? No. Patient's initial sepsis screen is negative. Risk Assessment: Do you want to hurt yourself or someone else? Patient reports no desire to harm self or others. Onset of symptoms was October 07, 2023 at 19:00. Care prior to arrival: None. Activity prior to arrival: None. 20:30 Method Of Arrival: Stretcher mt4 20:30 Acuity: NELY 3 mt4 Triage Assessment: 10/07 00:48 General: Appears in no apparent distress. comfortable, obese, Behavior is calm, mt4 cooperative, appropriate for age, Smells of Reports Denies fever, chills. Pain: Complains of pain in chest Pain radiates to left arm and chest Pain currently is 9 out of 10 on a pain scale. Quality of pain is described as heavy, squeezing. Pain: Pain began 1 hour ago. Is continuous, Also complains of. EENT: No deficits noted. Neuro: Level of Consciousness is Oriented to Reverse Unit Operator are equal bilaterally Moves all extremities. Gait is steady, Speech is normal, Facial symmetry appears normal, Pupils are Reports headache Denies Seizure activity. Cardiovascular: Reports chest pain, shortness of breath, Capillary refill < 3 seconds Patient's skin is warm and dry. Rhythm is sinus rhythm Chest pain radiates to left arm(s). Respiratory: Airway is patent Respiratory effort is even, unlabored, Respiratory pattern is regular, Breath sounds are clear bilaterally. GI: No deficits noted. GI: Abdomen is round non-distended, obese. : No deficits noted. Derm: Skin is intact. Musculoskeletal: Capillary refill < 3 seconds, Range of motion: intact in all extremities. Historical: - Immunization history:: Adult Immunizations up to date. - Infectious Disease History:: Denies. Denies. - Family history:: not pertinent. - Social history:: Smoking status: Patient denies any tobacco usage or history of. - Code Status:: Full code. - Coronavirus screen:: The patient has NOT traveled to [place] in the past 14 days. - Ebola Screening: : No symptoms or risks identified at this time. Screenin:57 [facility] ED Fall Risk Assessment (Adult) History of falling in the last 3 months, mt4 including since admission No falls in past 3 months (0 pts) Confusion or Disorientation No (0 pts) Intoxicated or Sedated No (0 pts) Impaired Gait No (0 pts) Mobility Assist Device Used No (0 pt) Altered Elimination No (0 pt) Score/Fall Risk Level 0 - 2 = Low Risk. Abuse screen: Denies injuries from another. Nutritional screening: No deficits noted. Tuberculosis screening: No symptoms or risk factors identified. Assessment: 10/06 20:30 General: Appears in no apparent distress. comfortable, obese, Behavior is calm, mt4 cooperative, appropriate for age, Smells of. Pain: Complains of pain in chest Pain radiates to chest and left arm Pain currently is 9 out of 10 on a pain scale. Quality of pain is described as heavy, squeezing, Pain began 1 hour ago. Is continuous. Neuro: No deficits noted. Level of Consciousness is awake, alert, obeys commands, Oriented to person, place, time. Cardiovascular: No deficits noted. Capillary refill < 3 seconds Patient's skin is warm and dry. Rhythm is regular. Respiratory: Airway is patent. GI: Abdomen is round non-distended, obese. : No deficits noted. Denies burning with urination. Musculoskeletal: Capillary refill < 3 seconds, Range of motion: intact in all extremities. 10/07 01:05 Reassessment: Patient and/or family updated on plan of care and expected duration. Pain mt4 level reassessed. General: Appears in no apparent distress. comfortable, Behavior is calm, cooperative, appropriate for age, Smells of Reports. Pain: Denies pain. Neuro: No deficits noted. Level of Consciousness is Oriented to person, place, time, situation. Cardiovascular: Capillary refill < 3 seconds. Respiratory: Airway is patent. Vital Signs: 10/06 20:30 BP 112 / 56; Pulse 76; Resp 16; Temp 98.4(O); Pulse Ox 100% on R/A; Pain 9/10; mt4 20:30 BP 112 / 56; Pulse 76; Resp 16; Temp 98.4; Pulse Ox 100% on R/A; Pain 9/10; mt4 22:00 BP 112 / 61; Pulse 59; Resp 20; Pulse Ox 100% on R/A; mt4 23:36 Weight 76.2 kg (R); mt4 10/07 00:00 BP 103 / 49; Pulse 79; Resp 18; Pulse Ox 100% on R/A; Pain 2/10; mt4 01:05 BP 102 / 52; Pulse 77; Resp 16; mt4 10/06 20:30 Pain Scale: Adult mt4 20:30 Pain Scale: Adult mt4 10/07 00:00 Pain Scale: Adult mt4 Vitals: 00:57 Cardiac Rhythm Assessment Regular. mt4 [place] Coma Score: 00:57 Eye Response: spontaneous(4). Motor Response: obeys commands(6). Verbal Response: mt4 oriented(5). Total: 15. ED Course: 10/06 20:30 Patient arrived in ED. kmf 20:35 Tonio Seay MD is Attending Physician. sp4 20:39 Daksha Wright, RN is Primary Nurse. mt4 21:15 XRAY Chest (1 view) In Process Unspecified. EDMS 21:19 Notified ED physician of a critical lab result(s). troponin of 170.4. jm12 22:21 Nidhi Vázquez MD is Hospitalizing Provider. sp4 10/07 00:48 Triage completed. mt4 00:48 Arm band placed on right wrist. EKG completed in triage. Results shown to MD. EKG mt4 completed in triage. Results shown to MD. EKG completed in triage. Results shown to MD. Antipyretics given from triage as ordered by an ER provider. 00:57 No apparent distress. Resting quietly. mt4 00:57 Patient has correct armband on for positive identification. Bed in low position. Call mt4 light in reach. Side rails up X 1. Adult w/ patient. Client placed on continuous cardiac and pulse oximetry monitoring. NIBP monitoring applied. vehicle monitor technician on. Pulse ox on. Door closed. Noise minimized. Lights dimmed. Warm blanket given. Pillow given. Verbal reassurance given. Head of bed elevated. Diet: Patient is NPO. Patient is placed in psych hold. Repositioned patient. 00:57 No provider procedures requiring assistance completed. EKG done. Inserted saline lock: mt4 20 gauge in left antecubital area, using aseptic technique. Accessed Patient maintains SpO2 saturation greater than 95% on room air. Administered Medications: 10/06 21:51 Drug: morphine IVP or IV 4 mg IVP once over 4 mins Route: IVP; Infused Over: 4 mins; mt4 Site: left antecubital; 22:08 Follow up: Response: No adverse reaction mt4 21:51 Drug: Ondansetron IVP 4 mg IVP once; over 2 minutes Route: IVP; Site: left antecubital; mt4 22:08 Follow up: Response: No adverse reaction mt4 21:51 Drug: NS 0.9% IV 1000 ml IV at 1 bolus Per protocol; 1000 mL bolus Route: IV; Rate: 1 mt4 bolus; Site: left antecubital; 10/07 01:07 Follow up: Response: No adverse reaction; IV Status: Completed infusion mt4 10/06 23:41 Drug: Aspirin PO Chewable Tablet 324 mg PO once; 81 mg tablets x 4 Route: PO; mt4 10/07 01:07 Follow up: Response: No adverse reaction mt4 Medication: 00:57 VIS not applicable for this client. mt4 Outcome: 10/06 22:22 Decision to Hospitalize by Provider. sp4 10/07 01:29 Patient left the ED. sb4 Signatures: Dispatcher [employer] Floridalma Salazar PA-C PA-C sb4 Tonio Seay MD MD sp4 Deepali Tamez Molinec, RN RN hi4 Yasmine Stinson RN RN jm12 Corrections: (The following items were deleted from the chart) 00:49 00:48 PMHx: Diabetes - NIDDM; hi4 hi4 00:49 00:48 PMHx: Hypertension; hi4 hi4 00:49 00:48 PMHx: Hyperlipidemia; [place] [id number] 00:49 00:48 PMHx: Depression; [facility] 00:49 00:48 PMHx: Anxiety; [facility] 00:49 00:48 PMHx: stroke; [place] [id number] 00:49 00:48 PMHx: ADD/ADHD; [place] [id number] 00:49 00:48 PMHx: Myocardial infarction; [place] [id number] 00:49 00:48 PMHx: Bipolar disorder; [facility] 00:49 00:48 PMHx: cardiac arrest; [place] [id number] 00:49 00:48 PSHx: section; [place] [address] 00:49 00:48 PSHx: gastric sleeve; [place] [id number] 00:49 00:48 PSHx: knee sx; [facility] 00:49 00:48 PSHx: back; [place] [id number] 01:03 00:57 BP 112 / 56; Pulse 76bpm; Resp 16bpm; Pulse Ox 100% RA; Temp 98.4F Oral; Pain [facility] 11/04, Adult; hi4
--- NOTE | 2023-10-07 22:22 | EDPHYS ---
Physician Documentation [facility] Name: Che Helton Age: 57 yrs Sex: Female : 1965 Arrival Date: 10/07/2023 Time: 20:26 Bed 8 Private MD: ED Physician Tonio Seay HPI: 10/06 20:35 This 57 yrs old Black Female presents to ER via Unassigned with complaints of chest sp4 pain . 20:36 7:17PENICILLINS; Sulfa (Sulfonamide Antibiotics); tl4 PMHx: ADHD; Anxiety; Bipolar sp4 disorder; cardiac arrest; Depression; Diabetes - NIDDM; Hyperlipidemia; Hypertension; Myocardial infarction; stroke; PSHx: back (an); section; gastric sleeve; knee . 21:09 Patient presents with acute onset midsternal chest pain associated with dizziness and sp4 headache. Patient takes Eliquis 5 mg p.o. twice daily. History of left heart cath April 2023 at [facility]. Patient reports her last heart catheter revealed no coronary blockages. . Historical: - Immunization history:: Adult Immunizations up to date. - Infectious Disease History:: Denies. Denies. - Family history:: not pertinent. - Social history:: Smoking status: Patient denies any tobacco usage or history of. - Code Status:: Full code. - Coronavirus screen:: The patient has NOT traveled to [place] in the past 14 days. - Ebola Screening: : No symptoms or risks identified at this time. ROS: 22:36 Constitutional: Negative for fever, chills, and weight loss, positive for chest pain sp4 headache and dizziness 22:36 All other systems are negative, Exam: 22:36 Constitutional: This is a well developed, well nourished patient who is awake, alert, sp4 and in no acute distress. Head/Face: Normocephalic, atraumatic. Eyes: Pupils equal round and reactive to light, extra-ocular motions intact. Lids and lashes normal. Conjunctiva and sclera are not injected. Cornea within normal limits. Periorbital areas with no swelling, redness, or edema. ENT: Nares patent. No nasal discharge, no septal abnormalities noted. Tympanic membranes are normal and external auditory canals are clear. Oropharynx with no redness, swelling, or masses, exudates, or evidence of obstruction, uvula midline. Mucous membranes moist. Neck: Trachea midline, no thyromegaly or masses palpated, and no cervical lymphadenopathy. Supple, full range of motion without nuchal rigidity, or vertebral point tenderness. Chest/axilla: Normal chest wall appearance and motion. Nontender with no deformity. No lesions are appreciated. Cardiovascular: Regular rate and rhythm with a normal S1 and S2. No gallops, murmurs, or rubs. Normal PMI, no JVD. No pulse deficits. Respiratory: Lungs have equal breath sounds bilaterally, clear to auscultation and percussion. No rales, rhonchi or wheezes noted. No increased work of breathing, no retractions or nasal flaring. Abdomen/GI: Soft, with normal bowel sounds. No distension or tympany. No guarding or rebound. No evidence of tenderness throughout. Back: No spinal tenderness. No costovertebral tenderness. Skin: Warm, dry with normal turgor. Normal color with no rashes, no lesions, and no evidence of cellulitis. MS/ Extremity: Pulses equal, no cyanosis. Neurovascular intact. Full, normal range of motion. Neuro: Awake and alert, GCS 15, oriented to person, place, time, and situation. Cranial nerves II-XII grossly intact. Motor strength 5/5 in all extremities. Sensory grossly intact. Psych: Awake, alert, with orientation to person, place and time. Behavior, mood, and affect are within normal limits 22:36 EG at 2146 normal sinus rhythm at the rate of 62, LVH. No ST elevation or depression Vital Signs: 20:30 BP 112 / 56; Pulse 76; Resp 16; Temp 98.4(O); Pulse Ox 100% on R/A; Pain 9/10; mt4 20:30 BP 112 / 56; Pulse 76; Resp 16; Temp 98.4; Pulse Ox 100% on R/A; Pain 9/10; mt4 22:00 BP 112 / 61; Pulse 59; Resp 20; Pulse Ox 100% on R/A; mt4 23:36 Weight 76.2 kg (R); mt4 10/07 00:00 BP 103 / 49; Pulse 79; Resp 18; Pulse Ox 100% on R/A; Pain 2/10; mt4 01:05 BP 102 / 52; Pulse 77; Resp 16; mt4 10/06 20:30 Pain Scale: Adult mt4 20:30 Pain Scale: Adult mt4 10/07 00:00 Pain Scale: Adult mt4 [place] Coma Score: 00:57 Eye Response: spontaneous(4). Motor Response: obeys commands(6). Verbal Response: mt4 oriented(5). Total: 15. MDM: 10/06 20:37 Patient medically screened. sp4 22:43 Differential Diagnosis altered mental status, sepsis, flu, ACS . Data reviewed: vital sp4 signs, nurses notes. ED course: Patient has significant elevation of troponin at 170. Patient warrants admission for further management. Patient was discussed with due diligence coordinator Dr. Nicole. . 10/06 20:37 Order name: Basic Metabolic Panel; Complete Time: 21:19 [facility] 10/06 20:37 Order name: CBC with Diff; Complete Time: 21:19 [facility] 10/06 20:37 Order name: LFT's; Complete Time: 21:19 [facility] 10/06 20:37 Order name: Magnesium; Complete Time: 21:19 [facility] 10/06 20:37 Order name: NT PRO-BNP; Complete Time: 21:19 [facility] 10/06 20:37 Order name: PT-INR; Complete Time: 22:35 [facility] 10/06 20:37 Order name: Troponin HS; Complete Time: 21:19 [facility] 10/06 21:19 Order name: Urine Drug Screen [facility] 10/06 22:10 Order name: Troponin High Sensitivity [facility] 10/06 20:37 Order name: XRAY Chest (1 view); Complete Time: 21:24 [facility] 10/06 22:06 Order name: CONS Physician Consult [facility] 10/06 22:10 Order name: EKG Electrocardiogram [facility] 10/06 20:37 Order name: Cardiac monitoring; Complete Time: 20:40 [facility] 10/06 20:37 Order name: EKG - Nurse/Tech; Complete Time: 20:40 [facility] 10/06 20:37 Order name: IV Saline Lock; Complete Time: 20:39 [facility] 10/06 20:37 Order name: Labs collected and sent; Complete Time: 20:40 [facility] 10/06 20:37 Order name: O2 Per Protocol; Complete Time: 20:40 [facility] 10/06 20:37 Order name: O2 Sat Monitoring; Complete Time: 20:40 sp4 10/06 20:52 Order name: Misc. Order: Redraw blue top; Complete Time: 21:11 jb4 10/06 21:19 Order name: EKG - Nurse/Tech; Complete Time: 21:50 sp4 EC:36 Rate is 62 beats/min. Rhythm is regular, Normal Sinus Rhythm. QRS [place] is Normal. [place] sp4 interval is normal. QRS interval is normal. QT interval is normal. No Q waves. T waves are Normal. No ST changes noted. Clinical impression: No evidence of ischemia. Interpreted by me. Reviewed by me. Administered Medications: 21:51 Drug: morphine IVP or IV 4 mg IVP once over 4 mins Route: IVP; Infused Over: 4 mins; mt4 Site: left antecubital; 22:08 Follow up: Response: No adverse reaction mt4 21:51 Drug: Ondansetron IVP 4 mg IVP once; over 2 minutes Route: IVP; Site: left antecubital; mt4 22:08 Follow up: Response: No adverse reaction mt4 21:51 Drug: NS 0.9% IV 1000 ml IV at 1 bolus Per protocol; 1000 mL bolus Route: IV; Rate: 1 mt4 bolus; Site: left antecubital; 10/07 01:07 Follow up: Response: No adverse reaction; IV Status: Completed infusion mt4 10/06 23:41 Drug: Aspirin PO Chewable Tablet 324 mg PO once; 81 mg tablets x 4 Route: PO; mt4 10/07 01:07 Follow up: Response: No adverse reaction mt4 Disposition Summary: 10/07/23 22:22 Hospitalization Ordered Notes: Hospitalization Status: Inpatient Admission sp4 Provider: Nidhi Vázquez spAlireza Location: Telemetry/MedSurg (Inpatient) sp4 Condition: Stable sp4 Problem: new sp4 Symptoms: have improved sp4 Bed/Room Type: Standard 4 Room Assignment: [facility](10/07/23 22:43) [facility] Diagnosis - NSTEMI sp4 Forms: - Medication Reconciliation Form sp4 - SBAR form sp4 - Leadership Thank You Letter sp4 Signatures: Dispatcher [employer] Mohinder Huizar RN RN jb4 Tonio Seay MD MD sp4 Deepali Tamez kmf Daksha Wright, RN RN mt4 Corrections: (The following items were deleted from the chart) 10/06 20:37 20:37 BASIC METABOLIC PANEL+C.LAB.BRZ ordered. EDMS EDMS 20:37 20:37 CBC+H.LAB.BRZ ordered. EDMS EDMS 20:37 20:37 HEPATIC FUNCTION+C.LAB.BRZ ordered. EDMS EDMS 20:37 20:37 MAGNESIUM+C.LAB.BRZ ordered. EDMS EDMS 20:37 20:37 PROBNP+C.LAB.BRZ ordered. EDMS EDMS 20:37 20:37 PROTIME (+INR)+COAG.LAB.BRZ ordered. EDMS EDMS 20:37 20:37 Troponin High Sensitivity+C.LAB.BRZ ordered. EDMS EDMS 20:37 20:37 Chest Single View+RAD.RAD.BRZ ordered. EDMS EDMS 22:36 22:36 PTT, ACTIVATED+COAG.LAB.BRZ ordered. EDMS EDMS 22:43 22:22 4 [facility] 10/07 00:49 00:48 PMHx: Diabetes - NIDDM; az4 az4 00:49 00:48 PMHx: Hypertension; az4 az4 00:49 00:48 PMHx: Hyperlipidemia; az4 az4 00:49 00:48 PMHx: Depression; az4 mt4 00:49 00:48 PMHx: Anxiety; az4 az4 00:49 00:48 PMHx: stroke; az4 az4 00:49 00:48 PMHx: ADD/ADHD; az4 az4 00:49 00:48 PMHx: Myocardial infarction; az4 az4 00:49 00:48 PMHx: Bipolar disorder; az4 mt4 00:49 00:48 PMHx: cardiac arrest; az4 mt4 00:49 00:48 PSHx: section; az4 mt4 00:49 00:48 PSHx: gastric sleeve; az4 mt4 00:49 00:48 PSHx: knee sx; az4 mt4 00:49 00:48 PSHx: back; az4 az4
[2023-10-07] MEDS ORDERED: ASPIRIN 81 MG CHEWABLE TABLET ONE (23:39)
[2023-10-08] MEDS ORDERED: ACETAMINOPHEN 500 MG TAB PO PRN (02:14)
[2023-10-08] MEDS ORDERED: ONDANSETRON 4 MG/2 ML VIAL IV PRN (02:14)
[2023-10-08] MEDS: HYDROCODONE/APAP 7.5/325 MG TAB PO PRN (03:09)
[2023-10-08] MEDS: ALPRAZOLAM 1 MG TABLET PO PRN (03:09)
[2023-10-08] MEDS: HEPARIN/D5W 25,000 UNIT/500 ML BAG IV SCH (03:14)
[2023-10-08 05:41] LABS: Absolute Eosinophils 0.1 K/uL (0-0.5); Absolute Lymphocytes (CBC) 3.5 K/uL (0.7-4.9); Absolute Monocytes 0.2 K/uL (0.1-1.3); Basophils % 0.4 % (0-1.3); Hematocrit 28.7 % (36.0-45.0); Hemoglobin 9.8 g/dL (12.0-15.0); Lymphocytes % 51.1 % (15.3-44.8); MCH 30.6 pg (27.0-35.0); MCHC 34.1 g/dL (32.0-36.0); MCV 89.9 fL (80-100); MPV 8.9 fL (7.6-11.3); Monocytes % 3.5 % (3.3-12.3); Nucleated Red Blood Cells % 0.3 % (0-0); Platelets 238 thou/uL (152-406); RBC Red Blood Cell Count 3.19 M/uL (3.86-4.86); Red Cell Distribution Width 14.4 % (12.1-15.2)
[2023-10-08 06:11] LABS: Anion Gap 9.9 mEq/L (5.0-15.0); Magnesium 2.4 mg/dL (1.6-2.4); Potassium 2.9 mEq/L (3.5-5.1)
[2023-10-08] MEDS: KCL 20 MEQ/100 mL IVPB 20 MEQ/100 ML BAG IV SCH (08:34)
[2023-10-08] MEDS: NA CHLORIDE 0.9% 500 ML IV SCH (08:34)
[2023-10-08] MEDS: ASPIRIN EC 81 MG TAB PO SCH (08:35)
--- NOTE | 2023-10-08 12:27 | P.PN ---
Subjective Date of Service: 10/08/23 Chief Complaint: NSTEMI Pt is resting comfortably in bed. She reports chest discomfort. Pt is getting heparin drip. Waiting for Cardiology eval. No other complaints. Review of Systems General: Unremarkable Eyes: Unremarkable ENT: Unremarkable Respiratory: Unremarkable Cardiovascular: Unremarkable Gastrointestinal: Unremarkable Genitourinary: Unremarkable Musculoskeletal: Unremarkable Integumentary: Unremarkable Neurological: Unremarkable Lymphatics: Unremarkable Physical Examination - Vital Signs Temperature: 97.6 F Blood Pressure: 97/46 Pulse: 54 Respirations: 15 Pulse Ox (%): 100 - Physical Exam General: Alert, In no apparent distress, Oriented x3 HEENT: Atraumatic, Normocephalic, PERRLA Neck: Supple, 2+ carotid pulse no bruit Respiratory: Clear to auscultation bilaterally, Normal air movement Cardiovascular: No edema, Normal pulses, Regular rate/rhythm, Normal S1 S2 Capillary refill: <2 Seconds Gastrointestinal: Normal bowel sounds, Soft and benign, Non-distended Musculoskeletal: No clubbing, No swelling, No contractures Integumentary: No rashes, No breakdown, No significant lesion Neurological: Normal gait, Normal speech, Normal strength at 5/5 x4 extr, Normal tone, Sensation intact, Cranial nerves 3-12 intact Lymphatics: No axilla or inguinal lymphadenopathy - Studies Laboratory Data (last 24 hrs) 10/07/23 10/07/23 10/07/23 21:08 20:30 20:30 WBC 5.60 Hgb 11.4 L Hct 35.3 L Plt Count 273 PT 13.7 H INR 1.23 Sodium 142 Potassium 3.2 L BUN 18 Creatinine 1.55 H Glucose 87 Magnesium 2.5 H Total Bilirubin 0.4 AST 19 ALT 18 Alkaline Phosphatase 53 Assessment And Plan - Plan NSTEMI: Trend troponin 169. Continue heparin drip, statin. Consulted cardiology. EKG shows NSR. Hold BB due to hypotension. Hypokalemia: K is 2.9. Will replete and monitor. Mag leve is 2.3 Elevated BNP: Will f/u Echo. BRAULIO: CR is 1.45 <- 1.55. Will continue IVF, avoid nephrotoxins and monitor renal function. Anemia: Hgb is 9.8. Will monitor H/H DM II: Continue accuchek, SSI and ADA diet. DVT ppx: heparin drip Dispo: pending hospital course.
[2023-10-08] MEDS: DRISDOL (VITAMIN D=ERGOCALCIFEROL) 50000 UNIT CAP PO SCH (13:11)
[2023-10-08 13:44] LABS: Specific Gravity > 1.030 (1.005-1.030); Sqamous Epithelial <5 /HPF (None Seen); Urine Bacteria None Seen /HPF (<20); Urine Bilirubin NEGATIVE (Negative); Urine Blood Negative (Negative); Urine Clarity Clear (Clear); Urine Color Yellow (Yellow); Urine Culture Reflex Order NOT NEEDED; Urine Glucose NEGATIVE (Negative); Urine Ketones NEGATIVE (Negative); Urine Microscopic Reflex YN ORDER UMIC; Urine Mucus Slight /HPF (None Seen); Urine Nitrite NEGATIVE (Negative); Urine Protein TRACE (Negative); Urine RBC <5 /HPF (None Seen); Urine Urobilinogen 1+ (Normal); Urine WBC <5 /HPF (<5); Urine pH 5.5 (5.0-7.0)
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
[2023-10-08] MEDS: DULOXETINE 30 MG CAP PO SCH (20:36)
[2023-10-08] MEDS: ATORVASTATIN 40 MG TAB PO SCH (20:36)
[2023-10-08] MEDS: POTASSIUM CL SA 10 MEQ TAB PO ONE (23:42)
[2023-10-09 02:48] VITALS: BMI 29.7
[2023-10-09 05:26] LABS: Absolute Eosinophils 0.1 K/uL (0-0.5); Absolute Lymphocytes (CBC) 2.9 K/uL (0.7-4.9); Absolute Monocytes 0.2 K/uL (0.1-1.3); Absolute Neutrophil 2.1 K/uL (1.8-8.0); Basophils % 0.4 % (0-1.3); Eosinophils % 1.3 % (0-4.4); Hematocrit 27.7 % (36.0-45.0); Hemoglobin 9.4 g/dL (12.0-15.0); Lymphocytes % 54.7 % (15.3-44.8); MCH 30.5 pg (27.0-35.0); MCHC 33.9 g/dL (32.0-36.0); MCV 89.9 fL (80-100); MPV 8.6 fL (7.6-11.3); Monocytes % 3.6 % (3.3-12.3); Nucleated Red Blood Cells % 0.2 % (0-0); Platelets 201 thou/uL (152-406); RBC Red Blood Cell Count 3.09 M/uL (3.86-4.86); Red Cell Distribution Width 14.1 % (12.1-15.2)
[2023-10-09 05:44] LABS: Anion Gap 7.6 mEq/L (5.0-15.0); Magnesium 2.4 mg/dL (1.6-2.4); Potassium 3.6 mEq/L (3.5-5.1)
[2023-10-09 08:36] LABS: Blood Morphology Comment NOT SEEN (NOT SEEN); Differential Total Cells Count 100; Eosinophils 2 % (0-3); Lymphocytes 69 % (15-42); Monocytes 1 % (0-10); Platelet Estimate ADEQ; Segmented Neutrophils 28 % (40-80)
[2023-10-09] MEDS: POTASSIUM CL SA 10 MEQ TAB PO ONE (09:13)
[2023-10-09 10:02] VITALS: O2SAT 100
--- NOTE | 2023-10-09 10:46 | P.DS ---
Admission Date: 10/07/23 Discharge Date: 10/09/23 Disposition: ROUTINE DISCHARGE Discharge Condition: GOOD Reason for Admission: NSTEMI Brief History of Present Illness: Patient with PMH of HTN, PE, presented with chest pressure sensation that satarted yesterday, she mention that she has been under a lot of stress taking care of her mom, denies any other cardiac symptoms, chest pain left side, radiated to her neck and back. Hospital Course: Patient is 57 yo male with past medical history of HTN and PE who presented with chest pressure sensation that started on 10/07/23. She reported being stressed by taking care of her mom. On admission, lab studies showed elevated troponin 169. We admitted pt and have heparin drip and statin. Cardiology evaluated pt but dd not recommend further cardiac w work up. EKG showed NSR. We repleted potassium and monitored renal function. BRAULIO improved with IVF. Cardiology cleared pt for discharge. Pt was in NAD prior to discharge. Vital Signs/Physical Exam: Temp Pulse Resp BP Pulse Ox 97.4 F 53 16 123/57 L 98 10/09/23 08:00 10/09/23 08:00 10/09/23 09:16 10/09/23 08:00 10/09/23 09:16 Laboratory Data at Discharge: WBC 5.30 thou/uL (4.3-10.9) 10/09/23 04:59 Hgb 9.4 g/dL (12.0-15.0) L 10/09/23 04:59 Hct 27.7 % (36.0-45.0) L 10/09/23 04:59 Plt Count 201 thou/uL (152-406) 10/09/23 04:59 PT 13.7 SECONDS (9.4-12.5) H 10/07/23 21:08 INR 1.23 10/07/23 21:08 APTT 76.9 SECONDS (24.3-36.9) H 10/09/23 02:49 Sodium 144 mEq/L (136-145) 10/09/23 04:59 Potassium 3.6 mEq/L (3.5-5.1) 10/09/23 04:59 BUN 16 mg/dL (7-18) 10/09/23 04:59 Creatinine 1.17 mg/dL (0.55-1.02) H 10/09/23 04:59 Glucose 111 mg/dL (74-106) H 10/09/23 04:59 Magnesium 2.4 mg/dL (1.6-2.4) 10/09/23 04:59 Total Bilirubin 0.4 mg/dL (0.2-1.0) 10/07/23 20:30 AST 19 U/L (15-37) 10/07/23 20:30 ALT 18 U/L (13-56) 10/07/23 20:30 Alkaline Phosphatase 53 U/L (45-117) 10/07/23 20:30 Triglycerides 64 mg/dL (<150) 10/08/23 04:32 Cholesterol 131 mg/dL (<200) 10/08/23 04:32 HDL Cholesterol 39 mg/dL (40-60) L 10/08/23 04:32 Cholesterol/HDL Ratio 3.36 10/08/23 04:32 Home Medications: Duloxetine HCl [Cymbalta] 30 mg PO DAILY 04/14/18 Apixaban [Eliquis *] 1 tab PO BID 03/23/23 Duloxetine HCl [Cymbalta] 60 mg PO BEDTIME 03/23/23 Ergocalciferol (Vitamin D2) [Vitamin D2] 1 cap PO SEECOM 03/23/23 Linaclotide [Linzess] 1 cap PO DAILY 03/23/23 OXcarbazepine [Oxcarbazepine] 3 tab PO DAILY 03/23/23 Semaglutide [Ozempic] 2 mg SQ SEECOM 03/23/23 Topiramate 50 mg PO DAILY 03/23/23 Atorvastatin Calcium [Lipitor] 40 mg PO BEDTIME 90 Days #90 tab 03/25/23 Metoprolol Tartrate [Lopressor*] 12.5 mg PO BID 6AM 6PM 30 Days #60 tab 03/25/23 ALPRAZolam [Xanax*] 1 mg PO TID PRN 10/09/23 Albuterol Sulfate [Ventolin Hfa] 90 mcg IN Q6H 10/09/23 Allopurinol 100 mg PO DAILY 10/09/23 Amox/Clavulanate [Augmentin 875-125 Tab*] 1 each PO BID 10/09/23 Aspirin [Aspirin EC 81 MG] 81 mg PO DAILY 10/09/23 Codeine Phosphate/Guaifenesin [Codeine-Guaifen 10-100 mg/5 ml] 10 ml PO Q8H PRN 10/09/23 Colchicine [Colcrys *] 0.6 mg PO DAILY 10/09/23 Dexamethasone Sod Phosphate [Dexamethasone Sodium Phosphate] 1 ml IM 10/09/23 Ezetimibe [Zetia*] 10 mg PO DAILY 10/09/23 Fenofibrate [Lipofen] 54 mg PO DAILY 10/09/23 Finerenone [Kerendia] 20 mg PO DAILY 10/09/23 Hydrocodone Bit/Acetaminophen [Hydrocodon-Acetaminoph 7.5-325] 7.5 mg PO TID 10/09/23 Ketorolac [Toradol*] 30 mg IM 10/09/23 Loratadine [Claritin*] 10 mg PO DAILY 10/09/23 Naloxone HCl [Narcan] 4 mg IN PRN 10/09/23 Tadalafil [Cialis] 5 mg PO BEDTIME 10/09/23 Triamcinolone 0.1% Crm [Kenalog 0.1% Cream*] 1 tube TOP BID 10/09/23 hydroCHLOROthiazide [Hydrochlorothiazide] 25 mg PO DAILY 10/09/23 predniSONE [Deltasone*] 10 mg PO DAILY 10/09/23 Physician Discharge Instructions: Continue ad huber activity as tolerated. Take home meds as prescribed. Follow up with PCP and cardiology in 2 - 3 weeks. Diet: AHA Activity: Ad huber Followup: Orlando Bates MD [Primary Care Provider] -
[2023-10-09 12:05] LABS: Barbiturates NEGATIVE (NEGATIVE); Benzodiazepines POSITIVE (NEGATIVE); Cocaine NEGATIVE (NEGATIVE); METHAMPHETAM NEGATIVE (NEGATIVE); Methadone NEGATIVE (NEGATIVE); Opiates POSITIVE (NEGATIVE); Phencyclidine NEGATIVE (NEGATIVE); THC Cannibis NEGATIVE (NEGATIVE)
[2023-10-09 12:50] VITALS: BP 114/58; TEMP 97.7
== END 2023-10-09 12:35 | disposition home or self-care (01) ==
LOC: ER 20:26 → ERHOLD 22:03 → 2ND 10-08 00:23
PROVIDERS: ADMIT Hospitalist; ATTEND Hospitalist
DX: R07.9 Chest pain, unspecified (principal); N17.9 Acute kidney failure, unspecified; R42 Dizziness and giddiness; R51.9 Headache, unspecified; N18.9 Chronic kidney disease, unspecified; E87.6 Hypokalemia; D64.9 Anemia, unspecified; E78.5 Hyperlipidemia, unspecified; F32.A Depression, unspecified; F31.9 Bipolar disorder, unspecified; I25.2 Old myocardial infarction; E11.9 Type 2 diabetes mellitus without complications; F41.9 Anxiety disorder, unspecified; F98.8 Other specified behavioral and emotional disorders with onset usually occurring in childhood and adolescence; F43.9 Reaction to severe stress, unspecified; Z98.84 Bariatric surgery status; Z88.0 Allergy status to penicillin; Z88.2 Allergy status to sulfonamides; Z86.73 Personal history of transient ischemic attack (TIA), and cerebral infarction without residual deficits; Z86.711 Personal history of pulmonary embolism; Z79.82 Long term (current) use of aspirin; Z79.01 Long term (current) use of anticoagulants
CPT/HCPCS: 96361; 93005 ×2; 85025 ×3; 81001; 80048 ×3; 36415 ×2; 83735 ×3; 84132; 85610; 80061; 80076; 85730 ×5; 84484 ×4; 83880 ×3; 80307; 71045; 94760 ×4; 96375; 96374; 99285; J3480 ×3; J1644 ×2; J2405; J7040; J7030

== ENCOUNTER 2023-12-16 11:52 | Observation (INO) | payer OTHER ==
--- NOTE | 2023-12-16 12:59 | RAD REPORT ---
EXAMINATION: CT HEAD WITHOUT CONTRAST CT CERVICAL SPINE WITHOUT CONTRAST CLINICAL INDICATION: Head and neck injury status post fall. Head and neck pain TECHNIQUE: Axial CT images from the skull base to the vertex without intravenous contrast. Axial CT i mages through the cervical spine were obtained without intravenous contrast. Sagittal and coronal reformatted images were created from the data set. Coronal and sagittal reformatted images were creat ed from the data set. One or more of the following dose reduction techniques were used: Automated exposure control, adjustment of the mA and/or kV according to patient size, and/or iterative reconstr uction. Unless otherwise specified, incidental findings do not require dedicated imaging follow-up. [id number]. Comparison: 2022 and 2023 FINDINGS: Intracranial bleed not noted. Ventricles are normal in caliber. No significant hypodensity within the brain No extra-axial fluid collection. No fluid within the sinuses/mastoids No fracture or dislocation is seen involving the cervical spine. IMPRESSION: No acute intracranial abnormality noted A cervical fracture is not seen. 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
--- NOTE | 2023-12-16 13:07 | RAD REPORT ---
EXAM: CT CHEST, ABDOMEN AND PELVIS WITHOUT CONTRAST CLINICAL INDICATION: Chest and abdominal pain status post trauma TECHNIQUE: CT chest, abdomen and pelvis was performed, without IV contrast, as per department protoco l. Axial, sagittal and coronal reconstructions were obtained. One or more of the following dose reduction techniques were used: Automated exposure control, adjustment of the mA and/or kV according to the patient size, and/or iterative reconstruction. Unless otherwise specified, incidental findings do not require dedicated imaging follow-up. The lack of IV and oral contrast limits evaluation of the mediastinum, kayley, vessels, organs and kasandra l. COMPARISON: 2022 FINDINGS: No pulmonary contusion. A mediastinal hematoma not seen. No pleural effusion. No pericardial effusion. Liver, spleen, pancreas, adrenals kidneys and bladder do not demonstrate a traumatic injury. There is no evidence of diverticulitis. Post surgical changes lumbar spine IMPRESSION: No acute traumatic injury involving the chest, abdomen/pelvis seen
[2023-12-16] MEDS ORDERED: MORPHINE 4 MG/ML SYR ONE (13:09)
[2023-12-16] MEDS ORDERED: ONDANSETRON 4 MG/2 ML VIAL ONE (13:09)
--- NOTE | 2023-12-16 13:11 | RAD REPORT ---
Exam:Elbow Left 3 View HISTORY: Left elbow pain FINDINGS: No fracture or dislocation seen
--- NOTE | 2023-12-16 13:12 | RAD REPORT ---
Exam:Knee Left 3 View HISTORY: Left knee pain FINDINGS: No fracture or dislocation seen
[2023-12-16 14:14] LABS: Absolute Lymphocytes (CBC) 2.3 K/uL (0.7-4.9); Absolute Monocytes 0.2 K/uL (0.1-1.3); Absolute Neutrophil 2.6 K/uL (1.8-8.0); Basophils % 0.4 % (0-1.3); Eosinophils % 0.9 % (0-4.4); Hematocrit 34.9 % (36.0-45.0); Hemoglobin 11.7 g/dL (12.0-15.0); Lymphocytes % 44.4 % (15.3-44.8); MCH 30.9 pg (27.0-35.0); MCHC 33.5 g/dL (32.0-36.0); MCV 92.2 fL (80-100); MPV 9.6 fL (7.6-11.3); Monocytes % 4.1 % (3.3-12.3); Neutrophils % 50.2 % (41.7-73.7); Nucleated Red Blood Cells % 0.1 % (0-0); Platelets 214 thou/uL (152-406); RBC Red Blood Cell Count 3.78 M/uL (3.86-4.86); Red Cell Distribution Width 13.7 % (12.1-15.2)
[2023-12-16 14:16] LABS: PT Prothrombin Time 13.1 SECONDS (9.4-12.5); Protime INR 1.18
[2023-12-16] MEDS ORDERED: REGADENOSON 0.4 MG/5 ML SYR IV ONE (14:30)
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
[2023-12-16] MEDS ORDERED: METOCLOPRAMIDE 10 MG/2mL INJ ONE (14:50)
[2023-12-16] MEDS ORDERED: DIPHENHYDRAMINE 50 MG/ML VIAL ONE (14:50)
[2023-12-16 15:04] LABS: ALT/SGPT 17 U/L (13-56); AST/SGOT 12 U/L (15-37); Albumin/Globulin Ratio 1.1 (1.1-1.8); Alkaline Phosphatase 50 U/L (45-117); Anion Gap 4.4 mEq/L (5.0-15.0); BUN Blood Urea Nitrogen 12 mg/dL (7-18); Bicarbonate 25 mEq/L (21-32); Bilirubin Total 0.3 mg/dL (0.2-1.0); Globulin 3.8 g/dL (2.3-3.5); Glomerular Filtration Rate 53 ml/min (=/>90); Glucose Level 72 mg/dL (74-106); Magnesium 2.1 mg/dL (1.6-2.4); NT PRO-BNP 723 pg/mL (<125); Potassium 3.4 mEq/L (3.5-5.1); Protein, Total 7.8 g/dL (6.4-8.2); Sodium Level 142 mEq/L (136-145)
[2023-12-16] MEDS ORDERED: ACETAMINOPHEN 500 MG TAB PO PRN (15:04)
[2023-12-16 15:06] LABS: Bilirubin Direct < 0.2 mg/dL (0-0.2); Bilirubin Indirect, Calculated 0.1 mg/dL (0.2-0.8)
[2023-12-16 15:08] LABS: Troponin High Sensitivity 146.5 pg/mL (<58.9)
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
[2023-12-16] MEDS ORDERED: GLUCAGON 1 MG/VIAL IM PRN (15:57)
[2023-12-16] MEDS ORDERED: D10W 125 ML IV PRN (15:57)
[2023-12-16] MEDS: INSULIN REGULAR (HUMAN) 100 UNIT/ML SQ SCH (16:30)
[2023-12-16 16:34] VITALS: BMI 28.3
[2023-12-16] MEDS: FLU (Fluarix Triv) TS24-25(6MOS UP)/PF 45 MCG/0.5 ML Syringe IM ONE (16:45)
[2023-12-16] MEDS: ATORVASTATIN 40 MG TAB PO SCH (20:04)
[2023-12-16] MEDS: FENOFIBRATE 48 MG TAB PO SCH (20:04)
[2023-12-16] MEDS: EZETIMIBE 10 MG TAB PO SCH (20:04)
[2023-12-16] MEDS: APIXABAN 2.5 MG TABLET PO SCH (20:04)
[2023-12-16] MEDS: HYDROCODONE/APAP 10/325 TAB PO PRN (23:54)
[2023-12-17] MEDS: ALPRAZOLAM 1 MG TABLET PO ONE (03:00)
[2023-12-17] MEDS ORDERED: MORPHINE 2 MG/ML SYR IV PRN (03:47)
[2023-12-17 04:38] LABS: Absolute Lymphocytes (CBC) 2.5 K/uL (0.7-4.9); Absolute Monocytes 0.2 K/uL (0.1-1.3); Absolute Neutrophil 2.5 K/uL (1.8-8.0); Basophils % 0.5 % (0-1.3); Eosinophils % 0.8 % (0-4.4); Hematocrit 28.5 % (36.0-45.0); Hemoglobin 9.4 g/dL (12.0-15.0); Lymphocytes % 47.3 % (15.3-44.8); MCH 30.3 pg (27.0-35.0); MCV 91.8 fL (80-100); MPV 9.6 fL (7.6-11.3); Monocytes % 4.4 % (3.3-12.3); Platelets 168 thou/uL (152-406); RBC Red Blood Cell Count 3.11 M/uL (3.86-4.86); Red Cell Distribution Width 13.9 % (12.1-15.2)
[2023-12-17 04:50] LABS: Anion Gap 3.6 mEq/L (5.0-15.0); Potassium 3.6 mEq/L (3.5-5.1)
[2023-12-17 04:52] LABS: Troponin High Sensitivity 127.2 pg/mL (<58.9)
[2023-12-17 08:31] VITALS: O2SAT 97
[2023-12-17] MEDS ORDERED: ASPIRIN EC 81 MG TAB PO SCH (09:00)
[2023-12-17] MEDS ORDERED: FLU (Fluarix Triv) TS24-25(6MOS UP)/PF 45 MCG/0.5 ML Syringe IM ONE (12:00)
--- NOTE | 2023-12-17 12:46 | P.PN ---
Subjective Date of Service: 12/17/23 Chief Complaint: NSTEMI status post fall Subjective: Improving (states she feels "a little better". Continues to rate CP at 5/10) Review of Systems 10-point ROS is otherwise unremarkable General: As per HPI Eyes: Unremarkable ENT: Unremarkable Respiratory: Shortness of Breath Cardiovascular: Chest Pain Gastrointestinal: Unremarkable Genitourinary: Unremarkable Musculoskeletal: As per HPI Integumentary: Unremarkable Neurological: Unremarkable Lymphatics: Unremarkable Physical Examination - Vital Signs Temperature: 98.0 F Blood Pressure: 140/63 Pulse: 52 Respirations: 16 Pulse Ox (%): 100 - Physical Exam General: Alert, In no apparent distress, Oriented x3 HEENT: Atraumatic, Normocephalic Neck: Supple Respiratory: Clear to auscultation bilaterally Cardiovascular: Regular rate/rhythm, Normal S1 S2 Capillary refill: <2 Seconds Gastrointestinal: Normal bowel sounds Musculoskeletal: No clubbing Integumentary: No rashes Neurological: Normal speech, Normal tone, Normal affect Lymphatics: No axilla or inguinal lymphadenopathy External genitalia: Deferred Rectal: Deferred - Studies Laboratory Data (last 24 hrs) 12/16/23 12/16/23 12/16/23 13:25 13:25 13:25 WBC 5.20 Hgb 11.7 L Hct 34.9 L Plt Count 214 PT 13.1 H INR 1.18 Sodium 142 Potassium 3.4 L BUN 12 Creatinine 1.19 H Glucose 72 L Magnesium 2.1 Total Bilirubin 0.3 AST 12 L ALT 17 Alkaline Phosphatase 50 Assessment And Plan - Plan Nstemi s/p fall in W/C on chronic anticoag 2nd to remote PE - continue Eliquis serial troponin - trending down telemetry [place] prn pain Stress test today Acute on Chronic Pain As above frequent repositioning, non narcotic adjuncts for pain control HTN/HLD please reconcile med list trend VS continue Atorvastatin, Zetia, Fenofibrate VTE/GI prophylaxis Full code Discharge Plan: Home Plan to discharge in: 24 Hours - Code Status/Comfort Care Code Status Assessed: Yes (Full) Time Spent Managing PTS Care (In Minutes): 30
--- NOTE | 2023-12-17 12:52 | EKG ---
Test Date: 2023-12-16 Test Time: 13:17:45 Maintenance Instructor: MB MEASUREMENT RESULTS: Intervals: Rate: 52 IN: 190 QRSD: 86 QT: 502 QTc: 466 Melba: P: 18 IN: 190 QRS: 4 T: 0 INTERPRETIVE STATEMENTS: Sinus bradycardia Voltage criteria for left ventricular hypertrophy Marked ST abnormality, possible inferior subendocardial injury Abnormal ECG Compared to ECG 10/07/2023 21:46:49 Sinus rhythm no longer present Sinus arrhythmia no longer present Possible ischemia no longer present ST (T wave) deviation still present Electronically Signed On 12-17-23 12:50:01 CDT by Ricky Sierra
[2023-12-17] MEDS: FLU (Fluarix Triv) TS24-25(6MOS UP)/PF 45 MCG/0.5 ML Syringe IM ONE (15:09)
[2023-12-17 17:06] VITALS: BP 129/65; TEMP 98.4
--- NOTE | 2023-12-17 17:25 | RAD REPORT ---
EXAM: Nuclear medicine cardiac perfusion examination with ejection fraction HISTORY: Chest pain [facility] CP TECHNIQUE: Rest images: 9.2 mCi technetium 99m sestamibi Stress images: 24.1 mCi of technetium 99m sestamibi COMPARISON: 05/11/2021 FINDINGS: Tomographic images: No fixed or reversible perfusion defects. No finding to suspect hibernating myocardium. Mild diminished radiopharmaceutical accumulation along the inferior wall on both stress and rest likely related to artifact. Ejection fraction of 52%. EDV: 56 mL ESV: 117 mL LHR: 0.32 TID: 1.1 IMPRESSION: No evidence of stress induced ischemia.
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
--- NOTE | 2023-12-18 07:24 | TREADPHA ---
DX: CHEST PAIN Date of Study: 12/17/2023 Ht: 5' 3 " Wt: 160 lb 0 oz Consulting Physician: YOVANNY MEDICATIONS: TYLENOL, NORCO 10/325, ELIQUIS, LIPITOR, DEXTROSE, ZETIA, TRICOR, GLUCAGEN, NOVOLIN-R, MORPHINE HISTORY: 58 YEAR OLD FEMALE WITH COMPLAINTS OF CHEST PAIN. NO HEART HISTORY. PHYSICIAL EXAMINATION: RESTING B.P.: 186/77 RESTING H.R.: 50 RESTING EKG: SINUS BRADYCARDIA PROTOCOL: PHARMACOLOGIC EXERCISE TIME: 3:30 B.P. AT PEAK STRESS: 120/59 IMPRESSION: LEXISCAN INJECTED. CARDIOLITE INJECTED. NO SUPRAVENTRICULAR TACHYCARDIA, VENTRICULAR TACHYCARDIA OR ARRHYTHMIA. NON-DIAGNOSTIC ELECTROCARDIOGRAM PART DUE TO ABNORMAL BASELINE.
== END 2023-12-17 18:17 | disposition home or self-care (01) ==
LOC: ER 11:52 → ERHOLD 15:04 → 2ND 16:09
PROVIDERS: ADMIT Hospitalist; ATTEND Hospitalist
DX: I21.4 Non-ST elevation (NSTEMI) myocardial infarction (principal); I10 Essential (primary) hypertension; E78.5 Hyperlipidemia, unspecified; E11.9 Type 2 diabetes mellitus without complications; M25.562 Pain in left knee; M25.522 Pain in left elbow; R51.9 Headache, unspecified; G89.29 Other chronic pain; F17.210 Nicotine dependence, cigarettes, uncomplicated; W05.0XXA Fall from non-moving wheelchair, initial encounter; Y93.9 Activity, unspecified; Y92.019 Unspecified place in single-family (private) house as the place of occurrence of the external cause; Z88.0 Allergy status to penicillin; Z88.2 Allergy status to sulfonamides; Z79.01 Long term (current) use of anticoagulants
CPT/HCPCS: 93005; 93017; 85025 ×2; 80048 ×2; 36415; 83735; 85610; 82947 ×5; 80076; 84484 ×3; 83880; 70450; 71250; 72125; 74176; 73080; 73562; 78452; 96375; 96374; 99285; J2785; J2765; J1200; J2405; A9500

== ENCOUNTER 2023-12-30 15:32 | Emergency (ER) | payer OTHER ==
--- NOTE | 2023-12-30 16:41 | RAD REPORT ---
Procedure: Chest Single View HISTORY: Chest pain COMPARISON: November 2023 FINDINGS: The lungs appear clear of acute infiltrate. No significant pleural effusion noted. The heart is mildly enlarged. IMPRESSION: No acute abnormality is displayed.
[2023-12-30] MEDS ORDERED: FENTANYL CITR 100 MCG/2 ML ONE (16:43)
[2023-12-30] MEDS ORDERED: ONDANSETRON 4 MG/2 ML VIAL ONE (16:43)
[2023-12-30 16:45] LABS: Absolute Eosinophils 0.1 K/uL (0-0.5); Absolute Lymphocytes (CBC) 2.4 K/uL (0.7-4.9); Absolute Monocytes 0.2 K/uL (0.1-1.3); Absolute Neutrophil 2.5 K/uL (1.8-8.0); Basophils % 0.5 % (0-1.3); Hematocrit 37.6 % (36.0-45.0); Hemoglobin 12.1 g/dL (12.0-15.0); MCH 29.6 pg (27.0-35.0); MCHC 32.1 g/dL (32.0-36.0); MCV 92.1 fL (80-100); MPV 8.7 fL (7.6-11.3); Monocytes % 4.4 % (3.3-12.3); Neutrophils % 48.1 % (41.7-73.7); Nucleated Red Blood Cells % 0.1 % (0-0); Platelets 253 thou/uL (152-406); RBC Red Blood Cell Count 4.08 M/uL (3.86-4.86); Red Cell Distribution Width 13.5 % (12.1-15.2)
[2023-12-30] MEDS ORDERED: NA CHLORIDE 0.9% 1,000 ML ONE (16:46)
[2023-12-30 16:50] LABS: PT Prothrombin Time 12.9 SECONDS (9.4-12.5); Protime INR 1.16
[2023-12-30 17:04] LABS: ALT/SGPT 17 U/L (13-56); AST/SGOT 13 U/L (15-37); Alkaline Phosphatase 49 U/L (45-117); Anion Gap 7.2 mEq/L (5.0-15.0); BUN Blood Urea Nitrogen 30 mg/dL (7-18); Bicarbonate 23 mEq/L (21-32); Bilirubin Total 0.2 mg/dL (0.2-1.0); Glomerular Filtration Rate 29 ml/min (=/>90); Glucose Level 86 mg/dL (74-106); Lipase 112 U/L (13-75); Magnesium 2.4 mg/dL (1.6-2.4); NT PRO-BNP 400 pg/mL (<125); Potassium 3.2 mEq/L (3.5-5.1); Sodium Level 141 mEq/L (136-145)
[2023-12-30 17:26] LABS: Bilirubin Direct < 0.2 mg/dL (0-0.2)
[2023-12-30 17:36] LABS: Troponin High Sensitivity 129.5 pg/mL (<58.9)
--- NOTE | 2023-12-30 17:41 | ER ---
Nurse's Notes [facility] Name: Che Helton Age: 58 yrs Sex: Female : 1965 Arrival Date: 12/30/2023 Time: 15:32 Bed 5 Private MD: Diagnosis: Non ST elevation VT;Chest pain, unspecified;Hypokalemia;Dizziness and giddiness Presentation: 12/29 15:45 Chief complaint: EMS states: Toned out for chest pressure, radiates to right arm, hx of jl7 VT \T\ HTN, started about 1500. Coronavirus screen: At this time, the client does not indicate any symptoms associated with coronavirus-19. Ebola Screen: No symptoms or risks identified at this time. Initial Sepsis Screen: Does the patient meet any 2 criteria? No. Patient's initial sepsis screen is negative. Does the patient have a suspected source of infection? No. Patient's initial sepsis screen is negative. Risk Assessment: Do you want to hurt yourself or someone else? Patient reports no desire to harm self or others. Onset of symptoms was December 30, 2023 at 15:00. 15:45 Care prior to arrival: Medication(s) given: ASA, 81 mg, x 4. jl7 15:51 Method Of Arrival: EMS: [facility] 15:51 Acuity: NELY 2 jl7 Triage Assessment: 15:45 General: Appears in no apparent distress. uncomfortable, Behavior is calm, cooperative, jl7 appropriate for age. Pain: Complains of pain in mid-sternal area Pain radiates to right arm Pain currently is 6 out of 10 on a pain scale. Quality of pain is described as pressure. Neuro: Level of Consciousness is awake, alert, obeys commands, Oriented to person, place, time, situation. Cardiovascular: Patient's skin is warm and dry. Rhythm is sinus rhythm. Respiratory: Airway is patent Respiratory effort is even, unlabored, Respiratory pattern is regular, symmetrical. Derm: Skin is pink, warm \T\ dry. Historical: - Allergies: 15:54 PENICILLINS; jl7 15:54 Sulfa (Sulfonamide Antibiotics); jl7 - Home Meds: 15:54 Metoprolol Tartrate Oral [Active]; losartan oral [Active]; jl7 - PMHx: 15:54 diabetes mellitus; Hypercholesterolemia; Hypertensive disorder; jl7 - Immunization history:: Adult Immunizations unknown. - Infectious Disease History:: Denies. - Social history:: Smoking status: Patient reports the use of cigarette tobacco products, smokes one-half pack cigarettes per day. - Family history:: not pertinent. Screenin:30 [facility] ED Fall Risk Assessment (Adult) History of falling in the last 3 months, jl7 including since admission No falls in past 3 months (0 pts) Confusion or Disorientation No (0 pts) Intoxicated or Sedated No (0 pts) Impaired Gait No (0 pts) Mobility Assist Device Used No (0 pt) Altered Elimination No (0 pt) Score/Fall Risk Level 0 - 2 = Low Risk Oriented to surroundings, Maintained a safe environment. Abuse screen: Denies threats or abuse. Denies injuries from another. Nutritional screening: No deficits noted. Tuberculosis screening: No symptoms or risk factors identified. Assessment: 18:00 Reassessment: Dr. Olivas at bedside discussing results and POC. Pt refusing transfer jl7 at this time. 18:25 Reassessment: Pt refusing transfer, educated on risks of leaving AMA, verbalized jl7 understanding, AMA for signed. Vital Signs: 15:51 BP 103 / 60; Pulse 70; Resp 15; Temp 98.7; Pulse Ox 98% ; Weight 72.57 kg; Height 5 ft. jl7 3 in. ; Pain 6/10; 16:30 BP 125 / 70; Pulse 58; Resp 15; Pulse Ox 100% ; jl7 17:15 BP 95 / 54; Pulse 55; Resp 16; Pulse Ox 100% ; jl7 18:00 BP 104 / 62; Pulse 58; Resp 15; Pulse Ox 100% ; jl7 15:51 Body Mass Index 28.34 (72.57 kg, 160.02 cm) jl7 15:51 Pain Scale: Adult jl7 ED Course: 15:45 Patient arrived in ED. jl7 15:45 Arm band placed on right wrist. EKG completed in triage. Results shown to MD. jl7 15:45 Patient has correct armband on for positive identification. Placed in gown. Bed in low jl7 position. Call light in reach. Side rails up X2. Provided Education on: use of call hernandez. Client placed on continuous cardiac and pulse oximetry monitoring. NIBP monitoring applied. 15:50 Wang Olivas MD is Attending Physician. the [facility] 15:51 Ai Harrington RN is Primary Nurse. jl7 15:54 Triage completed. jl7 16:00 Initial lab(s) drawn, by me, sent to lab. Inserted saline lock: 22 gauge in right jl7 forearm, using aseptic technique. Blood collected. Flushed with 10 mL NS. 16:34 XRAY Chest (1 view) In Process Unspecified. EDMS 17:41 initiated transfer to [facility]. bd 18:35 No provider procedures requiring assistance completed. Patient maintains SpO2 jl7 saturation greater than 95% on room air. 18:36 IV discontinued, intact, bleeding controlled, No redness/swelling at site. Pressure jl7 dressing applied. 18:38 transfer cancelled pt left AMA. bd Administered Medications: 16:50 Drug: NS 0.9% IV 1000 ml IV at 125 ml/hr continuous Route: IV; Rate: 125 ml/hr; Site: ko1 right forearm; 18:31 Follow up: Response: No adverse reaction; IV Status: Completed infusion; IV Intake: jl7 250ml 17:09 Drug: Ondansetron IVP 4 mg IVP once; over 2 minutes Route: IVP; Site: right antecubital;jl7 17:30 Follow up: Response: No adverse reaction jl7 17:10 Drug: fentaNYL (PF) IVP 25 mcg IVP once Route: IVP; Site: right antecubital; jl7 17:30 Follow up: Response: No adverse reaction; Pain is decreased jl7 17:11 Not Given (given by EMS): aspirinchewable tablet 81 mg PO once jl7 18:30 Not Given (Patient Refused): fentanyl (pf)25 mcg IVP once jl7 18:30 Not Given (Patient Refused): aspirinchewable tablet 324 mg PO once; 81 mg tablets x 4 jl7 18:30 Not Given (Patient Refused): Heparin (VT Drip) - ([id number] units, [id number] ml) 12 jl7 units/kg/hr IV at calculated rate Per protocol; Max initial rate 1000 units/hr... NO BOLUS 18:31 Not Given (Patient Refused): potassiumeffervescent tablet 25 meq PO once; dissolve in 4 jl7 ounces of water or juice Medication: 16:30 VIS not applicable for this client. jl7 Intake: 18:31 IV: 250ml; Total: 250ml. jl7 Outcome: 17:41 ER care complete, transfer ordered by MD. klein 18:51 AMA AMA form signed jl7 18:51 Condition: stable 18:51 Discharge instructions given to patient, Instructed on Risks of leaving with elevated troponin Demonstrated understanding of instructions, 18:52 Patient left the ED. jl7 Signatures: Dispatcher [employer] EDMS Haily Jordan Corey, MD MD cha Leal, Jahala RN RN jl7 Monique Abreu RN RN ko1
--- NOTE | 2023-12-30 17:41 | EDPHYS ---
Physician Documentation [facility] Name: Che Helton Age: 58 yrs Sex: Female : 1965 Arrival Date: 12/30/2023 Time: 15:32 Bed 5 Private MD: ED Physician Wang Olivas HPI: 12/29 17:02 This 58 yrs old Black Female presents to ER via EMS with complaints of Chest Pain. ernie 17:02 The patient or guardian reports chest pain that is located primarily in the substernal ernie area, anterior chest wall. Onset: just prior to arrival, today. The pain radiates to the right arm. Associated signs and symptoms: Pertinent positives: dizziness, lightheadedness. The chest pain is described as causing indigestion, a pressure. Modifying factors: The symptoms are alleviated by remaining still, the symptoms are aggravated by activity, movement. Severity of pain: At its worst the pain was mild moderate in the emergency department the pain has improved moderately. The patient has experienced similar episodes in the past, several times. Historical: - Allergies: 15:54 PENICILLINS; jl7 15:54 Sulfa (Sulfonamide Antibiotics); jl7 - Home Meds: 15:54 Metoprolol Tartrate Oral [Active]; losartan oral [Active]; jl7 - PMHx: 15:54 diabetes mellitus; Hypercholesterolemia; Hypertensive disorder; jl7 - Immunization history:: Adult Immunizations unknown. - Infectious Disease History:: Denies. - Social history:: Smoking status: Patient reports the use of cigarette tobacco products, smokes one-half pack cigarettes per day. - Family history:: not pertinent. ROS: 17:02 Constitutional: Negative for fever, chills, and weight loss, Eyes: Negative for injury, ernie pain, redness, and discharge, ENT: Negative for injury, pain, and discharge, Neck: Negative for injury, pain, and swelling, Respiratory: Negative for shortness of breath, cough, wheezing, and pleuritic chest pain, Abdomen/GI: Negative for abdominal pain, nausea, vomiting, diarrhea, and constipation, Back: Negative for injury and pain, : Negative for injury, bleeding, discharge, and swelling, MS/Extremity: Negative for injury and deformity, Skin: Negative for injury, rash, and discoloration, Neuro: Negative for headache, weakness, numbness, tingling, and seizure, Psych: Negative for depression, anxiety, suicide ideation, homicidal ideation, and hallucinations, Allergy/Immunology: Negative for hives, rash, and allergies, Endocrine: Negative for neck swelling, polydipsia, polyuria, polyphagia, and marked weight changes, Hematologic/Lymphatic: Negative for swollen nodes, abnormal bleeding, and unusual bruising, 17:02 Cardiovascular: Positive for chest pain, of the chest, Exam: 17:02 Constitutional: This is a well developed, well nourished patient who is awake, alert, ernie and in no acute distress. Head/Face: Normocephalic, atraumatic. Eyes: Pupils equal round and reactive to light, extra-ocular motions intact. Lids and lashes normal. Conjunctiva and sclera are non-icteric and not injected. Cornea within normal limits. Periorbital areas with no swelling, redness, or edema. ENT: Nares patent. No nasal discharge, no septal abnormalities noted. Tympanic membranes are normal and external auditory canals are clear. Oropharynx with no redness, swelling, or masses, exudates, or evidence of obstruction, uvula midline. Mucous membranes moist. Neck: Trachea midline, no thyromegaly or masses palpated, and no cervical lymphadenopathy. Supple, full range of motion without nuchal rigidity, or vertebral point tenderness. No Meningismus. Chest/axilla: Normal chest wall appearance and motion. Nontender with no deformity. No lesions are appreciated. Cardiovascular: Regular rate and rhythm with a normal S1 and S2. No gallops, murmurs, or rubs. Normal PMI, no JVD. No pulse deficits. Respiratory: Lungs have equal breath sounds bilaterally, clear to auscultation and percussion. No rales, rhonchi or wheezes noted. No increased work of breathing, no retractions or nasal flaring. Abdomen/GI: Soft, non-tender, with normal bowel sounds. No distension or tympany. No guarding or rebound. No evidence of tenderness throughout. Back: No spinal tenderness. No costovertebral tenderness. Full range of motion. Female : Normal external genitalia. Skin: Warm, dry with normal turgor. Normal color with no rashes, no lesions, and no evidence of cellulitis. MS/ Extremity: Pulses equal, no cyanosis. Neurovascular intact. Full, normal range of motion. Neuro: Awake and alert, GCS 15, oriented to person, place, time, and situation. Cranial nerves II-XII grossly intact. Motor strength 5/5 in all extremities. Sensory grossly intact. Cerebellar exam normal. Normal gait. Psych: Awake, alert, with orientation to person, place and time. Behavior, mood, and affect are within normal limits. 17:02 ECG was reviewed by the Attending Physician. Vital Signs: 15:51 BP 103 / 60; Pulse 70; Resp 15; Temp 98.7; Pulse Ox 98% ; Weight 72.57 kg; Height 5 ft. jl7 3 in. ; Pain 6/10; 16:30 BP 125 / 70; Pulse 58; Resp 15; Pulse Ox 100% ; jl7 17:15 BP 95 / 54; Pulse 55; Resp 16; Pulse Ox 100% ; jl7 18:00 BP 104 / 62; Pulse 58; Resp 15; Pulse Ox 100% ; jl7 15:51 Body Mass Index 28.34 (72.57 kg, 160.02 cm) jl7 15:51 Pain Scale: Adult jl7 MDM: 15:50 Medical Screening Exam initiated ernie 17:04 Differential diagnosis: abnormal EKG, acute myocardial infarction, acute pericarditis, ernie anxiety, coronary artery disease chest wall pain, Cholelithiasis costochondritis, esophagitis, herpes zoster, hiatal hernia, pancreatitis, peptic ulcer disease, pericarditis, pleurisy, pneumonia, pneumothorax, pulmonary embolus, stable angina, thoracic aortic disection, unstable angina. HEART Score: History: Moderately Suspicious (1), ECG: Non specific repolarization disturbance / LBTB / PM (1), Age: > 45 and < 65 years (1), Risk Factors: > or = 3 Risk factors for atherosclerotic disease (2), [Hypercholesterolemia] [Hypertension] [DM] [+ Family HX] [Obesity] Troponin: < or = 1 x Normal Limit (0), Total Score = 5. The patient was given aspirin in the Emergency Department. PENNY Risk Score: 1 - Three or more CAD risk factors, 1- Known CAD. Data reviewed: vital signs, nurses notes, lab test result(s), EKG, radiologic studies. Consideration of Admission/Observation Patient was admitted/placed on observation. Escalation of care including admission/observation considered. I considered the following discharge prescriptions or medication management in the emergency department Medications were administered in the Emergency Department. See MAR. Independent interpretation of the following test(s) in the Emergency Department EKG: See my EKG interpretation above X-Ray: My interpretation is CXR NEG. Test considered but Not performed: Ultrasound NO 2 D ECHO. Care significantly affected by the following chronic conditions: Diabetes, Hypertension, Obesity. Counseling: I had a detailed discussion with the patient and/or guardian regarding the historical points, exam findings, and any diagnostic results supporting the discharge/admit diagnosis, lab results, radiology results, the need for further work-up and treatment in the hospital. 18:48 ED course: PT LEFT AMA, EXPLAINED ALL RISK, ALL POSSIBILITIES , WILL TRANSFER ANYPLACE ernie DESIRED, PT REFUSED ALL HELP, FULLY INFORMED. 12/29 15:50 Order name: Basic Metabolic Panel; Complete Time: 17:37 [facility] 12/29 15:50 Order name: CBC with Diff; Complete Time: 17:37 [facility] 12/29 15:50 Order name: LFT's; Complete Time: 17:37 [facility] 12/29 15:50 Order name: Magnesium; Complete Time: 17:37 [facility] 12/29 15:50 Order name: NT PRO-BNP; Complete Time: 17:37 [facility] 12/29 15:50 Order name: PT-INR; Complete Time: 17:37 [facility] 12/29 15:50 Order name: Troponin HS; Complete Time: 17:37 [facility] 12/29 15:50 Order name: Lipase; Complete Time: 17:37 [facility] 12/29 15:50 Order name: XRAY Chest (1 view); Complete Time: 17:37 [facility] 12/29 15:50 Order name: Cardiac monitoring; Complete Time: 16:39 [facility] 12/29 15:50 Order name: EKG - Nurse/Tech; Complete Time: 16:39 [facility] 12/29 15:50 Order name: IV Saline Lock; Complete Time: 16:39 [facility] 12/29 15:50 Order name: Labs collected and sent; Complete Time: 16:39 [facility] 12/29 15:50 Order name: O2 Per Protocol; Complete Time: 16:39 [facility] 12/29 15:50 Order name: O2 Sat Monitoring; Complete Time: 16:39 [facility] EC:02 Rate is 64 beats/min. Rhythm is regular. QRS [place] is Normal. [place] interval is normal. QRS ernie interval is normal. QT interval is normal. No Q waves. T waves are Normal. No ST changes noted. Clinical impression: Normal ECG, LVH, and No evidence of ischemia. Interpreted by me. Reviewed by me. Administered Medications: 16:50 Drug: NS 0.9% IV 1000 ml IV at 125 ml/hr continuous Route: IV; Rate: 125 ml/hr; Site: ko1 right forearm; 18:31 Follow up: Response: No adverse reaction; IV Status: Completed infusion; IV Intake: jl7 250ml 17:09 Drug: Ondansetron IVP 4 mg IVP once; over 2 minutes Route: IVP; Site: right antecubital;jl7 17:30 Follow up: Response: No adverse reaction jl7 17:10 Drug: fentaNYL (PF) IVP 25 mcg IVP once Route: IVP; Site: right antecubital; jl7 17:30 Follow up: Response: No adverse reaction; Pain is decreased jl7 17:11 Not Given (given by EMS): aspirinchewable tablet 81 mg PO once jl7 18:30 Not Given (Patient Refused): fentanyl (pf)25 mcg IVP once jl7 18:30 Not Given (Patient Refused): aspirinchewable tablet 324 mg PO once; 81 mg tablets x 4 jl7 18:30 Not Given (Patient Refused): Heparin (AL Drip) - ([id number] units, [id number] ml) 12 jl7 units/kg/hr IV at calculated rate Per protocol; Max initial rate 1000 units/hr... NO BOLUS 18:31 Not Given (Patient Refused): potassiumeffervescent tablet 25 meq PO once; dissolve in 4 jl7 ounces of water or juice Disposition Summary: 12/30/23 18:48 Left Against Medical Advice Notes: Location: Home ernie Problem: an acute exacerbation(12/30/23 18:48) ernie Symptoms: are unchanged(12/30/23 18:48) ernie Condition: Serious(12/30/23 18:48) ernie Diagnosis - Non ST elevation [place](12/30/23 18:48) ernie - Chest pain, unspecified(12/30/23 18:48) ernie - Hypokalemia ernie - Dizziness and giddiness ernie Followup: ernie - With: Private Physician - When: Upon discharge from the Emergency Department - Reason: Recheck today's complaints, Continuance of care, Re-evaluation by your physician Signatures: Dispatcher [employer] EDMS Wang Olivas MD MD cha Leal, Jahala, RN RN jl7 Monique Abreu, RN RN ko1 Corrections: (The following items were deleted from the chart) 15:51 15:51 BASIC METABOLIC PANEL+C.LAB.BRZ ordered. EDMS EDMS 15:51 15:51 CBC+H.LAB.BRZ ordered. EDMS EDMS 15:51 15:51 HEPATIC FUNCTION+C.LAB.BRZ ordered. EDMS EDMS 15:51 15:51 MAGNESIUM+C.LAB.BRZ ordered. EDMS EDMS 15:51 15:51 PROBNP+C.LAB.BRZ ordered. EDMS EDMS 15:51 15:51 PROTIME (+INR)+COAG.LAB.BRZ ordered. EDMS EDMS 15:51 15:51 Troponin High Sensitivity+C.LAB.BRZ ordered. EDMS EDMS 15:51 15:51 LIPASE+C.LAB.BRZ ordered. EDMS EDMS 15:51 15:51 Chest Single View+RAD.RAD.BRZ ordered. EDMS EDMS 15:51 15:51 Urinalysis+U.LAB.BRZ ordered. EDMS EDMS 18:43 17:41 TO [facility] ernie ernie 18:43 17:41 [facility] ernie ernie 18:43 17:41 Higher level of care ernie ernie 18:43 17:41 Fair ernie ernie 18:43 17:41 new ernie ernie 18:43 17:41 have improved ernie ernie 18:43 17:41 Chest pain, unspecified ernie ernie 18:43 17:41 Type 2 diabetes mellitus with hyperglycemia ernie ernie 18:43 17:41 Unspecified kidney failure ernie ernie 18:43 17:[address] elevation [place] ernie ernie
[2023-12-30 20:14] VITALS: TEMP 98.7
[2023-12-30 20:19] VITALS: O2SAT 100
[2023-12-30 20:22] VITALS: BP 104/62
--- NOTE | 2023-12-31 12:19 | EKG ---
Test Date: 2023-12-30 Test Time: 15:44:51 Information Technology Analyst: NURIA MEASUREMENT RESULTS: Intervals: Rate: 64 WA: 194 QRSD: 118 QT: 458 QTc: 472 [place]: P: 64 WA: 194 QRS: -2 T: 79 INTERPRETIVE STATEMENTS: Normal sinus rhythm with sinus arrhythmia Right atrial enlargement Left ventricular hypertrophy with QRS widening T wave abnormality, consider lateral ischemia Abnormal ECG Compared to ECG 12/16/2023 13:17:45 Atrial abnormality now present T-wave abnormality now present Possible ischemia now present Sinus bradycardia no longer present ST (T wave) deviation no longer present Electronically Signed On 12-31-23 12:16:48 HEATING UNIT INSTALLER by Ricky Sierra
== END 2023-12-30 18:52 | disposition left against medical advice (07) ==
LOC: ER 15:32
DX: I21.4 Non-ST elevation (NSTEMI) myocardial infarction (principal); E87.6 Hypokalemia; R42 Dizziness and giddiness; I10 Essential (primary) hypertension; E11.9 Type 2 diabetes mellitus without complications; F17.210 Nicotine dependence, cigarettes, uncomplicated
CPT/HCPCS: 93005; 85025; 80048; 36415; 83735; 85610; 80076; 84484; 83690; 83880; 71045; J3010; J2405; J7030; 96361; 96374; 96375; 99284

== ENCOUNTER 2024-03-08 21:15 | Emergency (ER) | payer OTHER ==
[2024-03-08] MEDS ORDERED: KETOROLAC 30 MG/ML INJ ONE (21:57)
[2024-03-08] MEDS ORDERED: NA CHLORIDE 0.9% 1,000 ML ONE (21:58)
[2024-03-08 22:07] LABS: AST/SGOT 13 U/L (15-37); Albumin 3.9 g/dL (3.4-5.0); Alkaline Phosphatase 49 U/L (45-117); Anion Gap 6.7 mEq/L (5.0-15.0); BUN Blood Urea Nitrogen 22 mg/dL (7-18); Bicarbonate 22 mEq/L (21-32); Bilirubin Total 0.2 mg/dL (0.2-1.0); Globulin 3.8 g/dL (2.3-3.5); Glomerular Filtration Rate 49 ml/min (=/>90); Glucose Level 85 mg/dL (74-106); Lipase 96 U/L (13-75); Potassium 3.7 mEq/L (3.5-5.1); Protein, Total 7.7 g/dL (6.4-8.2); Sodium Level 143 mEq/L (136-145)
[2024-03-08 22:34] LABS: ALT/SGPT < 14 U/L (13-56)
[2024-03-08 22:59] LABS: Absolute Eosinophils 0.1 K/uL (0-0.5); Absolute Lymphocytes (CBC) 2.2 K/uL (0.7-4.9); Absolute Monocytes 0.3 K/uL (0.1-1.3); Absolute Neutrophil 2.7 K/uL (1.8-8.0); Basophils % 0.5 % (0-1.3); Eosinophils % 1.4 % (0-4.4); Hematocrit 33.4 % (36.0-45.0); Hemoglobin 11.1 g/dL (12.0-15.0); Lymphocytes % 42.1 % (15.3-44.8); MCH 30.1 pg (27.0-35.0); MCHC 33.3 g/dL (32.0-36.0); MCV 90.5 fL (80-100); Monocytes % 4.8 % (3.3-12.3); Neutrophils % 51.2 % (41.7-73.7); Nucleated Red Blood Cells % 0.1 % (0-0); Platelets 220 thou/uL (152-406); RBC Red Blood Cell Count 3.69 M/uL (3.86-4.86); Red Cell Distribution Width 14.5 % (12.1-15.2)
[2024-03-08 23:05] LABS: Calcium Oxalate Crystals- Ur Few /HPF (None Seen); Specific Gravity 1.028 (1.005-1.030); Sqamous Epithelial <5 /HPF (None Seen); Urine Bacteria None Seen /HPF (<20); Urine Bilirubin NEGATIVE (Negative); Urine Blood Negative (Negative); Urine Clarity Clear (Clear); Urine Color Light-Yellow (Yellow); Urine Culture Reflex Order NOT NEEDED; Urine Glucose NEGATIVE (Negative); Urine Ketones NEGATIVE (Negative); Urine Microscopic Reflex YN ORDER UMIC; Urine Nitrite NEGATIVE (Negative); Urine Protein NEGATIVE (Negative); Urine RBC <5 /HPF (None Seen); Urine Urobilinogen Normal (Normal); Urine WBC <5 /HPF (<5); Urine Yeast (Budding) Trace /HPF (None Seen); Urine pH 6.5 (5.0-7.0)
[2024-03-08] MEDS ORDERED: FAMOTIDINE 20 MG/2 ML VIAL IV ONE (23:47)
[2024-03-08] MEDS ORDERED: METHYLPREDNISOLONE 125 MG INJ ONE (23:47)
[2024-03-08] MEDS ORDERED: DIPHENHYDRAMINE 50 MG/ML VIAL ONE (23:47)
--- NOTE | 2024-03-09 00:13 | EDPHYS ---
Physician Documentation [facility] Name: Che Helton Age: 58 yrs Sex: Female : 1965 Arrival Date: 03/08/2024 Time: 21:15 Bed 16 Private MD: ED Physician Molina Guillaume HPI: 03/09 00:07 This 58 yrs old Black Female presents to ER via EMS with complaints of Abd Pain > 50 kb y/o. 00:07 Pt is a 58 year old female who presents for RLQ pain that started 2 hours lighter captain. Denies kb urinary symptoms, n/v/d, fever. no aggravating or alleviating factors. Historical: - Allergies: 03/08 21:20 Sulfa (Sulfonamide Antibiotics); rg5 21:20 PENICILLINS; rg5 - PMHx: 21:20 Hypertensive disorder; rg5 - Immunization history:: Adult Immunizations up to date. - Infectious Disease History:: Denies. - Social history:: Smoking status: Patient reports the use of cigarette tobacco products, smokes one-half pack cigarettes per day. ROS: 03/09 00:07 Constitutional: As per HPI kb Exam: 00:07 Constitutional: This is a well developed, well nourished patient who is awake, alert, kb and in no acute distress. Head/Face: Normocephalic, atraumatic. ENT: Moist Mucous membranes Cardiovascular: Regular rate Respiratory: Respirations even and unlabored. No increased work of breathing. Talking in full sentences Skin: Warm, dry with normal turgor. Normal color. MS/ Extremity: Pulses equal, no cyanosis. Neurovascular intact. Full, normal range of motion. Neuro: Awake and alert, GCS 15, oriented to person, place, time, and situation. 00:07 Abdomen/GI: Inspection: abdomen appears normal, Bowel sounds: normal, Palpation: soft, in all quadrants, moderate abdominal tenderness, in the right upper quadrant and right lower quadrant, Vital Signs: 03/08 21:20 BP 141 / 67; Pulse 81; Resp 18; Temp 98(O); Pulse Ox 100% on R/A; Weight 70.76 kg; rg5 Height 5 ft. 3 in. ; Pain 10/10; 22:00 BP 161 / 78; Pulse 80; Resp 17; Temp 98; Pulse Ox 100% ; rg5 23:00 BP 161 / 99; Pulse 75; Resp 18; Pulse Ox 100% on R/A; rg5 21:20 Body Mass Index 27.63 (70.76 kg, 160.02 cm) rg5 21:20 Pain Scale: Adult rg5 MDM: 21:18 Medical Screening Exam initiated kb 03/09 00:07 Differential diagnosis: appendicitis, gastritis, gastroesophageal reflux disease, kb non-specific abd pain, pancreatitis, urinary tract infection. Data reviewed: vital signs, nurses notes. Historians other than the Patient: EMS: [facility]. Counseling: I had a detailed discussion with the patient and/or guardian regarding the historical points, exam findings, and any diagnostic results supporting the discharge/admit diagnosis, lab results, radiology results, the need for outpatient follow up, a family practitioner, to return to the emergency department if symptoms worsen or persist or if there are any questions or concerns that arise at home. 03/08 21:19 Order name: CBC with Diff; Complete Time: 23:05 kb 03/08 21:19 Order name: CMP; Complete Time: 22:36 kb 03/08 21:19 Order name: Lipase; Complete Time: 22:36 kb 03/08 21:19 Order name: Urinalysis w/ reflexes; Complete Time: 23:05 kb 03/08 21:19 Order name: CT Abd/Pelvis - IV Contrast Only 03/08 21:19 Order name: IV Saline Lock; Complete Time: 22:04 kb 03/08 21:19 Order name: Labs collected and sent; Complete Time: 22:04 kb Administered Medications: 03/08 22:04 Drug: TORadol - Ketorolac IVP 15 mg IVP once Route: IVP; Site: right forearm; rg5 22:24 Follow up: Response: No adverse reaction; Pain is decreased rg5 22:04 Drug: NS 0.9% IV 1000 ml IV at 1 bolus Per protocol; to be given as a bolus over 60 rg5 minutes Route: IV; Rate: 1 bolus; Site: right forearm; 23:53 Follow up: IV Status: Completed infusion; IV Intake: 1000ml rg5 23:52 Drug: MethylPrednisoLONE IVP 125 mg IVP once Route: IVP; Site: right antecubital; rg5 03/09 00:18 Follow up: Response: No adverse reaction 5 03/08 23:53 Drug: diphenhydrAMINE IVP 25 mg IVP once Route: IVP; Site: right antecubital; rg5 03/09 00:18 Follow up: Response: No adverse reaction rg5 03/08 23:53 Drug: Famotidine IVP 20 mg IVP once; dilute with 10 mL 0.9% NaCl; give over 2 minutes rg5 Route: IVP; Site: right antecubital; 03/09 00:18 Follow up: Response: No adverse reaction rg5 00:19 Drug: HYDROcodone-acetaminophen PO 5 mg-325 mg 1 tabs PO once Route: PO; rg5 00:21 Follow up: Response: No adverse reaction; Pain is decreased rg5 Disposition Summary: 03/09/24 00:12 Discharge Ordered Notes: Location: Home kb Condition: Stable kb Diagnosis - Abdominal pain, Generalized kb Followup: kb - With: Emergency Department - When: As needed - Reason: Worsening of condition Followup: kb - With: Private Physician - When: 2 - 3 days - Reason: Recheck today's complaints, Continuance of care, Re-evaluation by your physician Discharge Instructions: - Discharge Summary Sheet kb - Abdominal Pain, Adult, [id number] kb Forms: - Medication Reconciliation Form kb - Antibiotic Education kb - Prescription Opioid Use kb - Patient Portal Instructions kb - Leadership Thank You Letter kb Prescriptions: - dicyclomine 20 mg Oral tablet - take 1 tablet ORAL route 4 times per day As needed; 20 tablet; Refills: 0, kb Product Selection Permitted Addendum: 03/16/2024 09:11 I was immediately available for consultation during this patient's visit. I did not e c2 personally see the patient or discuss the patient with the NÉSTOR. . Signatures: Dispatcher [employer] EDMS Berta Morgan, NIGHT ASSISTANT-C NIGHT ASSISTANT-Molina Adhikari MD MD ec2 Mo Alvarez RN RN rg5 Corrections: (The following items were deleted from the chart) 03/08 21:19 21:19 CBC+H.LAB.BRZ ordered. EDMS EDMS 21:19 21:19 COMPREHENSIVE METABOLIC PANEL+C.LAB.BRZ ordered. EDMS EDMS 21:19 21:19 LIPASE+C.LAB.BRZ ordered. EDMS EDMS 21:19 21:19 Urinalysis+U.LAB.BRZ ordered. EDMS EDMS
--- NOTE | 2024-03-09 00:13 | ER ---
Nurse's Notes [facility] Name: Che Helton Age: 58 yrs Sex: Female : 1965 Arrival Date: 03/08/2024 Time: 21:15 Bed 16 Private MD: Diagnosis: Abdominal pain, Generalized Presentation: 03/08 21:20 Chief complaint: EMS states: patient complaint of right abdominal pain started 2 hrs rg5 ago and radiating to the back. 21:20 Coronavirus screen: Client denies travel out of the [place] in the last 14 days. Ebola rg5 Screen: Patient negative for fever greater than or equal to 101.5 degrees Fahrenheit, and additional compatible Ebola Virus Disease symptoms. Initial Sepsis Screen: Does the patient meet any 2 criteria? No. Patient's initial sepsis screen is negative. Does the patient have a suspected source of infection? No. Patient's initial sepsis screen is negative. Risk Assessment: Do you want to hurt yourself or someone else? Patient reports no desire to harm self or others. Onset of symptoms was March 08, 2024. 21:20 Method Of Arrival: EMS: [facility] rg5 21:20 Acuity: NELY 3 rg5 Triage Assessment: 21:20 General: Appears in no apparent distress. comfortable, Behavior is calm, cooperative. rg5 Pain: Complains of pain in abdomen Pain radiates to back Pain currently is 10 out of 10 on a pain scale. Quality of pain is described as aching, Pain began 2 hours ago. EENT: No deficits noted. Neuro: Level of Consciousness is awake, alert, Oriented to person, place, time. Cardiovascular: Patient's skin is warm and dry. Respiratory: Airway is patent Trachea midline Respiratory effort is even, unlabored, Respiratory pattern is regular, symmetrical, Breath sounds are clear. GI: Abdomen is round Bowel sounds present in left lower quadrant Abd is soft and non tender. : No signs and/or symptoms were reported regarding the genitourinary system. Derm: Skin is intact, Skin is dry, Skin is normal, Skin temperature is warm. Musculoskeletal: Circulation, motion, and sensation intact. Range of motion: intact in all extremities. Historical: - Allergies: 21:20 Sulfa (Sulfonamide Antibiotics); rg5 21:20 PENICILLINS; rg5 - PMHx: 21:20 Hypertensive disorder; rg5 - Immunization history:: Adult Immunizations up to date. - Infectious Disease History:: Denies. - Social history:: Smoking status: Patient reports the use of cigarette tobacco products, smokes one-half pack cigarettes per day. Screenin:20 [facility] ED Fall Risk Assessment (Adult) History of falling in the last 3 months, rg5 including since admission No falls in past 3 months (0 pts) Confusion or Disorientation No (0 pts) Intoxicated or Sedated No (0 pts) Impaired Gait No (0 pts) Mobility Assist Device Used Yes (1 pt) Altered Elimination Yes (1 pt) Score/Fall Risk Level 0 - 2 = Low Risk Oriented to surroundings, Maintained a safe environment, Hourly rounding (assess needs \T\ fall precautionary measures) done. Abuse screen: Denies threats or abuse. Nutritional screening: No deficits noted. Tuberculosis screening: No symptoms or risk factors identified. Assessment: 21:35 Reassessment: see triage assessment. rg5 22:25 Reassessment: Patient and/or family updated on plan of care and expected duration. Pain rg5 level reassessed. Patient is alert, oriented x 3, equal unlabored respirations, skin warm/dry/pink. 23:00 Reassessment: No changes from previously documented assessment. Patient and/or family rg5 updated on plan of care and expected duration. Pain level reassessed. Patient is alert, oriented x 3, equal unlabored respirations, skin warm/dry/pink. Vital Signs: 21:20 BP 141 / 67; Pulse 81; Resp 18; Temp 98(O); Pulse Ox 100% on R/A; Weight 70.76 kg; rg5 Height 5 ft. 3 in. ; Pain 10/10; 22:00 BP 161 / 78; Pulse 80; Resp 17; Temp 98; Pulse Ox 100% ; rg5 23:00 BP 161 / 99; Pulse 75; Resp 18; Pulse Ox 100% on R/A; rg5 21:20 Body Mass Index 27.63 (70.76 kg, 160.02 cm) rg5 21:20 Pain Scale: Adult rg5 ED Course: 21:18 Patient arrived in ED. rv1 21:18 [facility]C [facility] kb 21:18 Molina Guillaume MD is Attending Physician. kb 21:20 Arm band placed on left wrist. rg5 21:20 Patient has correct armband on for positive identification. Door closed. Noise rg5 minimized. Verbal reassurance given. 21:20 No provider procedures requiring assistance completed. rg5 21:27 Mo Alvarez, RN is Primary Nurse. rg5 21:32 Triage completed. rg5 21:43 Initial lab(s) drawn, by me, sent to lab. vk 21:55 Inserted saline lock: 20 gauge in right upper arm, using aseptic technique. Blood br2 collected. Flushed with 10 mL NS. 22:04 CT Abd/Pelvis - IV Contrast Only Sent. rg5 22:50 CT Abd/Pelvis - IV Contrast Only In Process Unspecified. EDMS 03/09 00:19 IV discontinued, bleeding controlled, No redness/swelling at site. Pressure dressing rg5 applied. 00:20 Provided Education on: post er care. rg5 Administered Medications: 03/08 22:04 Drug: TORadol - Ketorolac IVP 15 mg IVP once Route: IVP; Site: right forearm; rg5 22:24 Follow up: Response: No adverse reaction; Pain is decreased rg5 22:04 Drug: NS 0.9% IV 1000 ml IV at 1 bolus Per protocol; to be given as a bolus over 60 rg5 minutes Route: IV; Rate: 1 bolus; Site: right forearm; 23:53 Follow up: IV Status: Completed infusion; IV Intake: 1000ml rg5 23:52 Drug: MethylPrednisoLONE IVP 125 mg IVP once Route: IVP; Site: right antecubital; rg5 03/09 00:18 Follow up: Response: No adverse reaction rg5 03/08 23:53 Drug: diphenhydrAMINE IVP 25 mg IVP once Route: IVP; Site: right antecubital; rg5 03/09 00:18 Follow up: Response: No adverse reaction rg5 03/08 23:53 Drug: Famotidine IVP 20 mg IVP once; dilute with 10 mL 0.9% NaCl; give over 2 minutes rg5 Route: IVP; Site: right antecubital; 03/09 00:18 Follow up: Response: No adverse reaction rg5 00:19 Drug: HYDROcodone-acetaminophen PO 5 mg-325 mg 1 tabs PO once Route: PO; rg5 00:21 Follow up: Response: No adverse reaction; Pain is decreased rg5 Medication: 03/08 21:20 VIS not applicable for this client. rg5 Intake: 23:53 IV: 1000ml; Total: 1000ml. rg5 Outcome: 03/09 00:12 Discharge ordered by . nahun 00:20 Discharged to home ambulatory, rg5 00:20 Condition: stable 00:20 Discharge instructions given to patient, Instructed on discharge instructions, Demonstrated understanding of instructions, follow-up care, medications, Prescriptions given X 1, 00:24 Patient left the ED. rg5 Signatures: Dispatcher [employer] EDMS Berta Morgan, NEWSPAPER WRITER-C NEWSPAPER WRITER-Ckb Ciara Lira rv1 Hannah Graff Rommel, RN RN rg5 Janae Maher RN RN br2
--- NOTE | 2024-03-09 00:14 | RAD REPORT ---
EXAM: CT Abdomen and Pelvis With Intravenous Contrast CLINICAL HISTORY: ABD PAIN TECHNIQUE: Axial computed tomography images of the abdomen and pelvis with intravenous contrast. Sagittal and coronal reformatted images were created and reviewed. This CT exam was performed using one or more of the following dose reduction techniques: automated exposure control, adjustment of the mA a nd/or kV according to patient size, and/or use of iterative reconstruction technique. COMPARISON: CT Abdomen Pelvis dated 12/16/2023 FINDINGS: Lung bases: Unremarkable. No mass. No consolidation. ABDOMEN: Liver: Unremarkable. No mass. Gallbladder and bile ducts: Contracted gallbladder. No calcified stones. No ductal dilation. Pancreas: Unremarkable. No mass. No ductal dilation. Spleen: Unremarkable. No splenomegaly. Adrenals: Unremarkable. No mass. Kidneys and ureters: Normal renal cortical enhancement. No calculi. No hydronephrosis. Stomach and bowel: Prior gastric sleeve. No bowel obstruction. No mucosal thickening. PELVIS: Appendix: Normal caliber appendix. No findings to suggest acute appendicitis. Bladder: The urinary bladder is partially decompressed. Reproductive: There has been a hysterectomy. No adnexal cysts or masses are identified. ABDOMEN and PELVIS: Intraperitoneal space: Unremarkable. No free air. No significant fluid collection. Bones/joints: Multilevel spondylosis. Bilateral posterior fusion hardware and posterior decompressi on and L4-L5. No dislocation. Soft tissues: Unremarkable. Vasculature: Mild atherosclerotic disease. No abdominal aortic aneurysm. Lymph nodes: Unremarkable. No enlarged lymph nodes. IMPRESSION: 1. No acute inflammatory process identified within the abdomen and pelvis. 2. Other findings as above. Electronically signed by: Rashid Hill MD 03/09/2024 12:02 AM [facility] Due to temporary technical issues with the PACS/[employer] reporting system, reports are being lee ann d by the in-house radiologist without review as a courtesy to ensure prompt reporting the interpreting radiologist is fully responsible for the content of the report. Transcribed Date/Time: 03/09/2024 12:13 AM
[2024-03-09] MEDS ORDERED: HYDROCODONE/APAP 5/325 MG TAB ONE (00:18)
[2024-03-10 16:23] VITALS: BP 161/99; TEMP 98; O2SAT 100
== END 2024-03-09 00:24 | disposition home or self-care (01) ==
LOC: ER 21:15
DX: R10.84 Generalized abdominal pain (principal); F17.210 Nicotine dependence, cigarettes, uncomplicated
CPT/HCPCS: 85025; 81001; 36415; 83690; 80053; 74177; 99284; Q9967; J1200; J2919; J7030

== ENCOUNTER 2024-05-18 15:44 | Emergency (ER) | payer MEDICAID, OTHER ==
[2024-05-18] MEDS ORDERED: ONDANSETRON 4 MG/2 ML VIAL ONE (16:41)
[2024-05-18 16:42] LABS: Specific Gravity 1.022 (1.005-1.030); Urine Bilirubin NEGATIVE (Negative); Urine Blood Negative (Negative); Urine Clarity Clear (Clear); Urine Color Light-Yellow (Yellow); Urine Glucose NEGATIVE (Negative); Urine Ketones NEGATIVE (Negative); Urine Microscopic Reflex YN NO UMIC; Urine Nitrite NEGATIVE (Negative); Urine Protein NEGATIVE (Negative); Urine Urobilinogen Normal (Normal); Urine pH 5.5 (5.0-7.0)
[2024-05-18] MEDS ORDERED: NA CHLORIDE 0.9% 1,000 ML ONE (16:42)
[2024-05-18] MEDS ORDERED: MORPHINE 4 MG/ML SYR ONE ×2 (16:42→18:11)
[2024-05-18 16:45] LABS: Specific Gravity 1.022 (1.005-1.030)
[2024-05-18 16:45] LABS: Absolute Eosinophils 0.1 K/uL (0-0.5); Absolute Lymphocytes (CBC) 2.5 K/uL (0.7-4.9); Absolute Monocytes 0.2 K/uL (0.1-1.3); Absolute Neutrophil 3.2 K/uL (1.8-8.0); Basophils % 0.3 % (0-1.3); Hematocrit 33.3 % (36.0-45.0); Hemoglobin 11.2 g/dL (12.0-15.0); MCH 30.3 pg (27.0-35.0); MCHC 33.6 g/dL (32.0-36.0); MCV 90.1 fL (80-100); MPV 8.7 fL (7.6-11.3); Monocytes % 3.8 % (3.3-12.3); Neutrophils % 52.9 % (41.7-73.7); Nucleated Red Blood Cells % 0.1 % (0-0); Platelets 198 thou/uL (152-406); RBC Red Blood Cell Count 3.69 M/uL (3.86-4.86); Red Cell Distribution Width 13.9 % (12.1-15.2)
[2024-05-18 17:01] LABS: Albumin 3.7 g/dL (3.4-5.0); Albumin/Globulin Ratio 0.9 (1.1-1.8); Anion Gap 8.3 mEq/L (5.0-15.0); Bilirubin Total 0.3 mg/dL (0.2-1.0); Potassium 3.3 mEq/L (3.5-5.1); Protein, Total 7.7 g/dL (6.4-8.2)
--- NOTE | 2024-05-18 17:54 | ER ---
Nurse's Notes [facility] Name: Che Helton Age: 58 yrs Sex: Female : 1965 Arrival Date: 05/18/2024 Time: 15:44 Bed 18 Private MD: Diagnosis: Low back pain Presentation: 05/18 15:55 Chief complaint: Patient states: chronic back pain that got worse yesterday, pt reports aa5 recent frequent falls, and also reports "strong smelling urine". Coronavirus screen: At this time, the client does not indicate any symptoms associated with coronavirus-19. Ebola Screen: Patient denies travel to an Ebola-affected area in the 21 days before illness onset. Initial Sepsis Screen: Does the patient meet any 2 criteria? No. Patient's initial sepsis screen is negative. Does the patient have a suspected source of infection? No. Patient's initial sepsis screen is negative. Risk Assessment: Do you want to hurt yourself or someone else? Patient reports no desire to harm self or others. Onset of symptoms was May 17, 2024. 15:55 Method Of Arrival: Ambulatory aa5 15:55 Acuity: NELY 3 aa5 Triage Assessment: 16:13 Headache History:. General: Appears in no apparent distress. Pain: Complains of pain in kj2 back Pain currently is 7 out of 10 on a pain scale. Pain began suddenly. 18:22 Pain: Also complains of. kj2 Historical: - Allergies: 15:57 PENICILLINS; aa5 15:57 Sulfa (Sulfonamide Antibiotics); aa5 - PMHx: 15:57 diabetes mellitus; Hypercholesterolemia; Hypertensive disorder; aa5 - Immunization history:: Adult Immunizations unknown. - Infectious Disease History:: Denies. - Social history:: Smoking status: Patient reports the use of cigarette tobacco products. Screenin:11 [facility] ED Fall Risk Assessment (Adult) History of falling in the last 3 months, kj2 including since admission Yes- single mechanical fall (1 pt) Confusion or Disorientation No (0 pts) Intoxicated or Sedated No (0 pts) Impaired Gait No (0 pts) Mobility Assist Device Used No (0 pt) Altered Elimination No (0 pt) Score/Fall Risk Level 0 - 2 = Low Risk Maintained a safe environment, Hourly rounding (assess needs \\T\\ fall precautionary measures) done. Abuse screen: Denies threats or abuse. Denies injuries from another. Nutritional screening: No deficits noted. Tuberculosis screening: No symptoms or risk factors identified. Assessment: 16:08 General: Appears in no apparent distress. Behavior is calm, cooperative. Pain: kj2 Complains of pain in back Pain currently is 7 out of 10 on a pain scale. Neuro: Level of Consciousness is awake, alert, obeys commands, Oriented to person, place, time, situation. Cardiovascular: Patient's skin is warm and dry. Respiratory: Airway Respiratory effort is even, unlabored. GI: No signs and/or symptoms were reported involving the gastrointestinal system. : Parent/caregiver report the patient having strong urine odor. 17:43 Reassessment: Patient appears in no apparent distress at this time. Patient and/or kj2 family updated on plan of care and expected duration. Pain level reassessed. Patient is alert, oriented x 3, equal unlabored respirations, skin warm/dry/pink. Vital Signs: 15:55 BP 131 / 61; Pulse 90; Resp 18 S; Temp 98.1(O); Pulse Ox 97% on R/A; Weight 70.76 kg aa5 (R); Height 5 ft. 3 in. (R); 18:00 BP 105 / 68; Pulse 72; Resp 20; Temp 98.7; Pulse Ox 100% on R/A; kj2 15:55 Body Mass Index 27.63 (70.76 kg, 160.02 cm) aa5 ED Course: 15:50 Patient arrived in ED. cj3 15:52 Silvano Butts FNP-C is [facility]. dr5 15:52 Molina Guillaume MD is Attending Physician. dr5 15:55 Arm band placed on. aa5 15:57 Triage completed. aa5 16:06 Shalini Munson, JULIEN is Primary Nurse. kj2 16:10 Patient has correct armband on for positive identification. Bed in low position. Call kj2 light in reach. Provided Education on: call light. 16:37 Test, Urine Sent. kj2 16:37 Urinalysis w/ reflexes Sent. kj2 18:22 No provider procedures requiring assistance completed. IV discontinued, intact, kj2 bleeding controlled, No redness/swelling at site. Pressure dressing applied. Administered Medications: 16:48 Drug: NS 0.9% IV 1000 ml IV at 1 bolus Per protocol; to be given as a bolus over 60 kj2 minutes Route: IV; Rate: 1 bolus; Site: right antecubital; 18:08 Follow up: IV Status: Completed infusion; IV Intake: 1000ml kj2 16:49 Drug: Ondansetron IVP 4 mg IVP once; over 2 minutes Route: IVP; Site: right antecubital;kj2 18:08 Follow up: Response: No adverse reaction kj2 16:49 Drug: morphine IVP or IV 4 mg IVP once over 4 mins Route: IVP; Infused Over: 4 mins; kj2 Site: right antecubital; 18:08 Follow up: Response: No adverse reaction kj2 18:19 Drug: morphine IVP or IV 4 mg IVP once over 4 mins Route: IVP; Infused Over: 4 mins; kj2 Site: right antecubital; 18:20 Follow up: Response: Medication administered at discharge. kj2 Medication: 16:12 VIS not applicable for this client. kj2 Intake: 18:08 IV: 1000ml; Total: 1000ml. kj2 Outcome: 17:53 Discharge ordered by . dr5 18:22 Discharged to home ambulatory, kj2 18:22 Condition: stable 18:22 Discharge instructions given to patient, 18:22 Patient left the ED. kj2 Signatures: Samantha Guerra, RN RN aa5 Shalini Munson RN RN kj2 Silvano Butts, HEALTHCARE SPECIALIST-C HEALTHCARE SPECIALIST-Cdr5 Valencia Dos Santos cj3 Corrections: (The following items were deleted from the chart) 15:58 15:55 BP 131 / 61; Pulse 90bpm; Resp 18bpm; Spontaneous; Pulse Ox 97% RA; Temp 98.1F aa5 Oral; aa5
--- NOTE | 2024-05-18 17:54 | EDPHYS ---
Physician Documentation [facility] Name: Che Helton Age: 58 yrs Sex: Female : 1965 Arrival Date: 05/18/2024 Time: 15:44 Bed 18 Private MD: ED Physician Molina Guillaume HPI: 05/18 17:17 This 58 yrs old Black Female presents to ER via Ambulatory with complaints of Right dr5 Kidney Pain, Lower Back Pain, Right Shoulder Pain, Headache. 17:17 Onset: The symptoms/episode began/occurred acutely. 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 Patient denies fever.. Patient reports she no longer is diabetic after losing 130 lbs.. Historical: - Allergies: 15:57 PENICILLINS; aa5 15:57 Sulfa (Sulfonamide Antibiotics); aa5 - PMHx: 15:57 diabetes mellitus; Hypercholesterolemia; Hypertensive disorder; aa5 - Immunization history:: Adult Immunizations unknown. - Infectious Disease History:: Denies. - Social history:: Smoking status: Patient reports the use of cigarette tobacco products. ROS: 17:19 Constitutional: as per hpi dr5 Exam: 17:19 Constitutional: This is a well developed, well nourished patient who is awake, alert, dr5 and in no acute distress. Head/Face: Normocephalic, atraumatic. ENT: Nares patent. No nasal discharge, no septal abnormalities noted. Tympanic membranes are normal and external auditory canals are clear. Oropharynx with no redness, swelling, or masses, exudates, or evidence of obstruction, uvula midline. Mucous membranes moist. Neck: Trachea midline, no thyromegaly or masses palpated, and no cervical lymphadenopathy. Supple, full range of motion without nuchal rigidity, or vertebral point tenderness. No Meningismus. Chest/axilla: Normal chest wall appearance and motion. Nontender with no deformity. No lesions are appreciated. Cardiovascular: Regular rate and rhythm with a normal S1 and S2. Normal PMI, no JVD. No pulse deficits. Respiratory: Lungs have equal breath sounds bilaterally, clear to auscultation. No rales, rhonchi or wheezes noted. No increased work of breathing, no retractions or nasal flaring. Back: No spinal tenderness. No costovertebral tenderness. Full range of motion. Skin: Warm, dry with normal turgor. Normal color with no rashes, no lesions, and no evidence of cellulitis. Neuro: Awake and alert, GCS 15, oriented to person, place, time, and situation. Cranial nerves II-XII grossly intact. Motor strength 5/5 in all extremities. Sensory grossly intact. Cerebellar exam normal. Normal gait. 17:19 Back: pain, that is mild, of the right mid back, 17:19 Musculoskeletal/extremity: ROM: no acute changes, Circulation is intact in all extremities. Sensation intact. Vital Signs: 15:55 BP 131 / 61; Pulse 90; Resp 18 S; Temp 98.1(O); Pulse Ox 97% on R/A; Weight 70.76 kg aa5 (R); Height 5 ft. 3 in. (R); 18:00 BP 105 / 68; Pulse 72; Resp 20; Temp 98.7; Pulse Ox 100% on R/A; kj2 15:55 Body Mass Index 27.63 (70.76 kg, 160.02 cm) aa5 MDM: 15:53 Medical Screening Exam initiated dr5 18:00 Differential diagnosis: viral Infection, Muscle Strain, Sprain, UTI, Pyelonephritis. dr5 Data reviewed: vital signs, nurses notes, lab test result(s). I considered the following discharge prescriptions or medication management in the emergency department Medications were administered in the Emergency Department. See MAR. Historians other than the Patient: Spouse/Significant Other: . Care significantly affected by the following chronic conditions: Hyperlipidemia, HTN. Care significantly affected by the following Social Determinants of Health: Poor access to healthcare and/or lack of insurance, Poor access to transportation, Problems related to employment. Counseling: I had a detailed discussion with the patient and/or guardian regarding the historical points, exam findings, and any diagnostic results supporting the discharge/admit diagnosis, the presence of at least one elevated blood pressure reading (>120/80) during this emergency department visit, lab results, the need for outpatient follow up, for definitive care, a family practitioner, a spray ii painter, to return to the emergency department if symptoms worsen or persist or if there are any questions or concerns that arise at home. ED course: Patient reports she is feeling better. UA did not reveal urinary tract infection. Lab work unremarkable. Patient has appointment tomorrow with pain management as well as for lumbar x-ray. Patient also reports that she has an MRI of her lower back scheduled for May 26, 2024 with her neurologist. Patient states that her pain is better. Patient is requesting dose of pain medication prior to discharge. All questions answered. Strict ER precautions given.. 05/18 16:07 Order name: CBC with Diff; Complete Time: 16:52 [facility] 05/18 16:07 Order name: CMP; Complete Time: 17:02 [facility] 05/18 16:07 Order name: Lipase; Complete Time: 17:02 [facility] 05/18 16:07 Order name: Test, Urine; Complete Time: 16:46 [facility] 05/18 16:07 Order name: Urinalysis w/ reflexes; Complete Time: 16:46 [facility] 05/18 16:07 Order name: IV Saline Lock; Complete Time: 16:37 [facility] 05/18 16:07 Order name: Labs collected and sent; Complete Time: 16:37 [facility] Administered Medications: 16:48 Drug: NS 0.9% IV 1000 ml IV at 1 bolus Per protocol; to be given as a bolus over 60 kj2 minutes Route: IV; Rate: 1 bolus; Site: right antecubital; 18:08 Follow up: IV Status: Completed infusion; IV Intake: 1000ml kj2 16:49 Drug: Ondansetron IVP 4 mg IVP once; over 2 minutes Route: IVP; Site: right antecubital;kj2 18:08 Follow up: Response: No adverse reaction kj2 16:49 Drug: morphine IVP or IV 4 mg IVP once over 4 mins Route: IVP; Infused Over: 4 mins; kj2 Site: right antecubital; 18:08 Follow up: Response: No adverse reaction kj2 18:19 Drug: morphine IVP or IV 4 mg IVP once over 4 mins Route: IVP; Infused Over: 4 mins; kj2 Site: right antecubital; 18:20 Follow up: Response: Medication administered at discharge. kj2 Disposition Summary: 05/18/24 17:53 Discharge Ordered Notes: Location: Home dr5 Condition: Stable dr5 Diagnosis - Low back pain dr5 Followup: dr5 - With: Emergency Department - When: As needed - Reason: Worsening of condition Followup: dr5 - With: Private Physician - When: 1 - 2 days - Reason: Recheck today's complaints, Continuance of care, Re-evaluation by your physician Discharge Instructions: - Discharge Summary Sheet dr5 - Acute Back Pain, Adult dr5 Forms: - Medication Reconciliation Form dr5 - Patient Portal Instructions dr5 - Leadership Thank You Letter dr5 Addendum: 05/20/2024 14:45 I was immediately available for consultation during this patient's visit. I did not e c2 personally see the patient or discuss the patient with the NÉSTOR. . Signatures: Dispatcher [employer] Samantha Chahal, RN RN aa5 Molina Guillaume MD MD ec2 Shalini Munson RN RN kj2 Silvano Butts, CURB ATTENDANT-C CURB ATTENDANT-[facility]5
[2024-05-18 18:37] VITALS: BP 105/68; TEMP 98.7; O2SAT 100
== END 2024-05-18 18:22 | disposition home or self-care (01) ==
LOC: ER 15:44
DX: M54.50 Low back pain, unspecified (principal); R51.9 Headache, unspecified; M25.511 Pain in right shoulder; E11.9 Type 2 diabetes mellitus without complications; I10 Essential (primary) hypertension
CPT/HCPCS: 96361; 85025; 36415; 81025; 81003; 83690; 80053; 96375; 96374; 99284; J2405; J7030

== ENCOUNTER 2024-06-18 00:16 | Emergency (ER) | payer MEDICAID, OTHER ==
[2024-06-18] MEDS ORDERED: DERMABOND SKIN ADHESIVE TOP ONE (00:42)
--- NOTE | 2024-06-18 01:04 | EDPHYS ---
Physician Documentation [facility] Name: Che Helton Age: 58 yrs Sex: Female : 1965 Arrival Date: 06/18/2024 Time: 00:16 Bed 10 Private MD: ED Physician Giovanni Xiong HPI: 06/18 00:56 This 58 yrs old Black Female presents to ER via Ambulatory with complaints of rn Laceration To Hand. 00:56 The patient has a laceration related to: cutting food. Patient reports accidentally cut rn the back/base of left thumb with a knife while cutting food. No other injuries. No numbness or tingling.. Historical: - Allergies: 00:53 PENICILLINS; vc1 00:53 Sulfa (Sulfonamide Antibiotics); vc1 - Home Meds: 00:53 losartan oral [Active]; alprazolam 1 mg oral tablet [Active]; [place] 7.5 mg Oral vc1 [Active]; Cymbalta 30 mg oral capsule,delayed release (e.c.) 2 times per day [Active]; atorvastatin 40 mg oral tablet [Active]; Topamax Oral [Active]; Vitamin D Oral [Active]; Ozempic 1 mg/dose (4 mg/3 mL) subcutaneous Pen Injector [Active]; - PMHx: 00:53 diabetes mellitus ; resolved; Hypercholesterolemia; Hypertensive disorder; cva; vc1 - PSHx: 00:53 None; vc1 - Immunization history:: Client reports receiving the 2nd dose of the Covid vaccine, Last tetanus immunization: not immunized. - Infectious Disease History:: Denies. - Family history:: not pertinent. - Social history:: Smoking status: Patient reports the use of cigarette tobacco products, less that 1/2 PPD. - Hospitalizations: : No recent hospitalization is reported. ROS: 00:56 Constitutional: Negative for fever, chills, and weight loss, MS/Extremity: Positive for rn laceration to the base of her left thumb Exam: 00:56 Constitutional: This is a well developed, well nourished patient who is awake, alert, rn and in no acute distress. MS/ Extremity: Pulses equal, no cyanosis. Neurovascular intact. Full, normal range of motion. 1 cm very superficial laceration overlying the left MCP of thumb. No active bleeding. No foreign body Vital Signs: 00:49 BP 119 / 65; Pulse 97; Resp 16; Temp 97.7; Pulse Ox 97% ; Weight 71.21 kg; Height 5 ft. vc1 3 in. ; 00:49 Body Mass Index 27.81 (71.21 kg, 160.02 cm) vc1 Laceration: 00:56 Wound Repair of 1cm ( 0.4in ) subcutaneous laceration to left hand. Distal rn neuro/vascular/tendon intact. Wound prep: Extensive cleansing with hibiclenz by me, Wound explored. Skin closed with 1 thin layer Adhesive skin closure using Dermabond. Dressed with Steri-Strips. Patient tolerated well. MDM: 00:28 Medical Screening Exam initiated rn 01:03 Differential diagnosis: superficial laceration. Data reviewed: vital signs, nurses rn notes, and as a result, I will discharge patient. Counseling: I had a detailed discussion with the patient and/or guardian regarding the historical points, exam findings, and any diagnostic results supporting the discharge/admit diagnosis, the need for outpatient follow up, to return to the emergency department if symptoms worsen or persist or if there are any questions or concerns that arise at home. Special discussion: I discussed with the patient/guardian in detail that at this point there is no indication for admission to the hospital. It is understood, however, that if the symptoms persist or worsen the patient needs to return immediately for re-evaluation. 06/18 00:42 Order name: Wound Care; Complete Time: 01:00 rn 06/18 00:42 Order name: Dermabond; Complete Time: 01:00 rn 06/18 00:42 Order name: Wound dressing; Complete Time: 01:00 rn Administered Medications: 01:41 Not Given (Product Out of Stock): tetanus-diphtheria toxoidadult 0.5 ml IM once; vc1 Provide Vaccine Information Statement (VIS). 01:42 Drug: Boostrix Tdap IM 0.5 ml IM once; as a single dose Route: IM; Site: right deltoid; vc1 01:46 Follow up: Response: Medication administered at discharge.; LOT PG3RP exp 09/04/26 vc1 [place] 01:46 Follow up: Response: (VIS) Vaccine information sheet provided today. Questions and/or vc1 concerns addressed. VIS edition date: Sep 30, 2020. Disposition Summary: 06/18/24 01:04 Discharge Ordered Notes: Location: Home rn Problem: new rn Symptoms: have improved rn Condition: Stable rn Diagnosis - Laceration without foreign body of left thumb without damage to nail, initial rn encounter Followup: rn - With: Private Physician - When: As needed - Reason: Recheck today's complaints, Re-evaluation by your physician Discharge Instructions: - Discharge Summary Sheet rn - Tissue Adhesive furnace setter Forms: - Medication Reconciliation Form rn - Antibiotic editor farm journal - Prescription Opioid Use rn - Patient Portal Instructions rn - Leadership Thank You Letter rn Signatures: Giovanni Xiong MD MD rn Ines Renee RN RN vc1
--- NOTE | 2024-06-18 01:04 | ER ---
Nurse's Notes [facility] Name: Che Helton Age: 58 yrs Sex: Female : 1965 Arrival Date: 06/18/2024 Time: 00:16 Bed 10 Private MD: Diagnosis: Laceration without foreign body of left thumb without damage to nail, initial encounter Presentation: 06/18 00:49 Chief complaint: Patient states: cut my thumb slicing a cantelope. Coronavirus screen: vc1 Client denies travel out of the [place] in the last 14 days. At this time, the client does not indicate any symptoms associated with coronavirus-19. Ebola Screen: Patient negative for fever greater than or equal to 101.5 degrees Fahrenheit, and additional compatible Ebola Virus Disease symptoms Patient denies exposure to infectious person. Patient denies travel to an Ebola-affected area in the 21 days before illness onset. No symptoms or risks identified at this time. Complicating Factors: There are no complicating factors for this patient. Initial Sepsis Screen: Does the patient meet any 2 criteria? No. Patient's initial sepsis screen is negative. Does the patient have a suspected source of infection? No. Patient's initial sepsis screen is negative. Risk Assessment: Do you want to hurt yourself or someone else? Patient reports no desire to harm self or others. Onset of symptoms was June 18, 2024. 00:49 Method Of Arrival: Ambulatory vc1 00:49 Acuity: NELY 4 vc1 Triage Assessment: 01:00 General: Appears in no apparent distress. comfortable, slender, well groomed, Behavior vc1 is calm, cooperative, appropriate for age. Pain: Complains of pain in dorsal aspect of proximal phalanx of left thumb. EENT: No deficits noted. No signs and/or symptoms were reported regarding the EENT system. Neuro: Level of Consciousness is awake, alert, obeys commands, Oriented to person, place, time, situation, none. Cardiovascular: Capillary refill < 3 seconds Patient's skin is warm and dry. Respiratory: Airway is patent Respiratory effort is even, unlabored, Respiratory pattern is regular, symmetrical, Breath sounds are clear bilaterally. GI: No deficits noted. No signs and/or symptoms were reported involving the gastrointestinal system. : No deficits noted. No signs and/or symptoms were reported regarding the genitourinary system. Derm: Wound noted dorsal aspect of proximal phalanx of left thumb. Musculoskeletal: Circulation, motion, and sensation intact. Range of motion: intact in all extremities. Injury Description: Laceration sustained to dorsal aspect of proximal phalanx of left thumb. Historical: - Allergies: 00:53 PENICILLINS; vc1 00:53 Sulfa (Sulfonamide Antibiotics); vc1 - Home Meds: 00:53 losartan oral [Active]; alprazolam 1 mg oral tablet [Active]; [place] 7.5 mg Oral vc1 [Active]; Cymbalta 30 mg oral capsule,delayed release (e.c.) 2 times per day [Active]; atorvastatin 40 mg oral tablet [Active]; Topamax Oral [Active]; Vitamin D Oral [Active]; Ozempic 1 mg/dose (4 mg/3 mL) subcutaneous Pen Injector [Active]; - PMHx: 00:53 diabetes mellitus ; resolved; Hypercholesterolemia; Hypertensive disorder; cva; vc1 - PSHx: 00:53 None; vc1 - Immunization history:: Client reports receiving the 2nd dose of the Covid vaccine, Last tetanus immunization: not immunized. - Infectious Disease History:: Denies. - Family history:: not pertinent. - Social history:: Smoking status: Patient reports the use of cigarette tobacco products, less that 1/2 PPD. - Hospitalizations: : No recent hospitalization is reported. Screenin:59 [facility] ED Fall Risk Assessment (Adult) History of falling in the last 3 months, vc1 including since admission No falls in past 3 months (0 pts) Confusion or Disorientation No (0 pts) Intoxicated or Sedated No (0 pts) Impaired Gait No (0 pts) Mobility Assist Device Used No (0 pt) Altered Elimination No (0 pt) Score/Fall Risk Level 0 - 2 = Low Risk Oriented to surroundings, Maintained a safe environment, Educated pt \T\ family on fall prevention, incl call for assistance when getting out of bed, Hourly rounding (assess needs \T\ fall precautionary measures) done. Abuse screen: Denies threats or abuse. Nutritional screening: No deficits noted. Tuberculosis screening: No symptoms or risk factors identified. Assessment: 01:44 Injury Description: Laceration is contaminated, 0.5 to 2.5 cm long, not bleeding. vc1 Vital Signs: 00:49 BP 119 / 65; Pulse 97; Resp 16; Temp 97.7; Pulse Ox 97% ; Weight 71.21 kg; Height 5 ft. vc1 3 in. ; 00:49 Body Mass Index 27.81 (71.21 kg, 160.02 cm) vc1 ED Course: 00:25 Patient arrived in ED. gm2 00:28 Giovanni Xiong MD is Attending Physician. rn 00:49 Ines Renee RN is Primary Nurse. vc1 00:53 Triage completed. vc1 00:59 Arm band placed on right wrist. vc1 01:00 Patient has correct armband on for positive identification. Bed in low position. vc1 Provided Education on: plan of care. Pulse ox on. NIBP on. 01:43 No provider procedures requiring assistance completed. Patient did not have IV access vc1 during this emergency room visit. Administered Medications: 01:41 Not Given (Product Out of Stock): tetanus-diphtheria toxoidadult 0.5 ml IM once; vc1 Provide Vaccine Information Statement (VIS). 01:42 Drug: Boostrix Tdap IM 0.5 ml IM once; as a single dose Route: IM; Site: right deltoid; vc1 01:46 Follow up: Response: Medication administered at discharge.; LOT PG3RP exp 09/04/26 vc1 [place] 01:46 Follow up: Response: (VIS) Vaccine information sheet provided today. Questions and/or vc1 concerns addressed. VIS edition date: Sep 30, 2020. Medication: 01:00 VIS not applicable for this client. vc1 Intake: Outcome: 01:04 Discharge ordered by . rn 01:43 Discharged to home ambulatory, vc1 01:43 Condition: stable 01:43 Discharge instructions given to patient, Instructed on discharge instructions, follow up and referral plans. wound care, Demonstrated understanding of instructions, follow-up care, wound care, 01:45 Patient left the ED. vc1 Signatures: Giovanni Xiong MD MD rn Calcote, Vanessa, RN RN vc1 Piper Hidalgo gm2 Corrections: (The following items were deleted from the chart) 00:59 00:49 BP 119 / 65; Pulse 157bpm; Resp 16bpm; Pulse Ox 97%; Temp 97.7F; 71.21 kg; Height vc1 5 ft. 3 in.; BMI: 27.8; vc1
[2024-06-18] MEDS ORDERED: TDAP (DIPHTH,PERTUSS(ACELL),TET VAC) 0.5 ML VIAL IMVAC ONE (01:07)
[2024-06-18 02:45] VITALS: BP 119/65; TEMP 97.7; O2SAT 97
== END 2024-06-18 01:45 | disposition home or self-care (01) ==
LOC: ER 00:16
DX: S61.012A Laceration without foreign body of left thumb without damage to nail, initial encounter (principal); Z23 Encounter for immunization
CPT/HCPCS: 12041; 90715; 96372; 99284

== ENCOUNTER 2024-10-22 19:32 | Observation (INO) | payer MEDICAID ==
[2024-10-22] MEDS ORDERED: NA CHLORIDE 0.9% 1,000 ML ONE ×2 (20:15→22:49)
[2024-10-22] MEDS ORDERED: MORPHINE 2 MG/ML SYR ONE (20:38)
[2024-10-22] MEDS ORDERED: METOCLOPRAMIDE 10 MG/2mL INJ ONE (20:38)
[2024-10-22] MEDS ORDERED: DIPHENHYDRAMINE 50 MG/ML VIAL ONE (20:38)
[2024-10-22] MEDS ORDERED: NA CHLORIDE 0.9% 50 ML ONE (20:39)
[2024-10-22 20:45] LABS: Absolute Lymphocytes (CBC) 2.2 K/uL (0.7-4.9); Hematocrit 32.0 % (36.0-45.0); Hemoglobin 10.7 g/dL (12.0-15.0); MCH 29.6 pg (27.0-35.0); MCHC 33.5 g/dL (32.0-36.0); MCV 88.4 fL (80-100); MPV 8.3 fL (7.6-11.3); Nucleated RBC Absolute Count 0.0 (0-0); Nucleated Red Blood Cells % 0.1 % (0-0); RBC Red Blood Cell Count 3.62 M/uL (3.86-4.86); White Blood Count 4.60 thou/uL (4.3-10.9)
[2024-10-22 20:50] LABS: PT Prothrombin Time 13.9 SECONDS (10-13.0); Protime INR 1.24
[2024-10-22 21:00] LABS: Influenza A Ag Negative; Influenza B Ag Negative; SARS-CoV-2 Antigen Rapid Res Negative (Negative)
--- NOTE | 2024-10-22 21:07 | RAD REPORT ---
EXAMINATION: ONE VIEW CHEST XR CLINICAL INDICATION: Female, 58 years old.,CHEST PAIN TECHNIQUE: Frontal chest projection is submitted. Examination is limited by patient positioning and t echnique. COMPARISON: 12/30/2023 FINDINGS: The lungs are well inflated and clear. No pneumothorax or sizable effusion. The heart is normal in s ize. Mediastinal contours are unremarkable. IMPRESSION: No acute intrathoracic abnormalities.
[2024-10-22 21:39] LABS: AST/SGOT 11 U/L (15-37); Albumin 3.9 g/dL (3.4-5.0); Albumin/Globulin Ratio 1.1 (1.1-1.8); Alkaline Phosphatase 46 U/L (45-117); Anion Gap 8.6 mEq/L (5.0-15.0); BUN Blood Urea Nitrogen 22 mg/dL (7-18); Globulin 3.5 g/dL (2.3-3.5); Glucose Level 60 mg/dL (74-106); Magnesium 2.4 mg/dL (1.6-2.4); NT PRO-BNP 629 pg/mL (<125); Potassium 3.6 mEq/L (3.5-5.1)
[2024-10-22 21:41] LABS: ALT/SGPT < 14 U/L (13-56); Bilirubin Indirect, Calculated 0.0 mg/dL (0.2-0.8)
[2024-10-22 21:42] LABS: Troponin High Sensitivity 114.1 pg/mL (<58.9)
[2024-10-22] MEDS ORDERED: ALBUMIN HUMAN 25% 100 ML IV ONE (22:49)
--- NOTE | 2024-10-23 00:28 | EDPHYS ---
Physician Documentation [facility] Name: Che Helton Age: 58 yrs Sex: Female : 1965 Arrival Date: 10/22/2024 Time: 19:32 Bed 4 Private MD: ED Physician Tonio Seay HPI: 10/22 20:19 This 58 yrs old Black Female presents to ER via Wheelchair with complaints of Chest sp4 Pain, LOW BLOOD PRESSURE. 10/23 03:12 This 58 yrs old Black Female presents to ER via Wheelchair with complaints of Chest sp4 Pain, LOW BLOOD PRESSURE. 03:12 The patient has experienced similar episodes in the past. This is a very pleasant sp4 58-year-old female presents with complaint of chest discomfort and low blood pressure at home also generalized weakness. History of CVA, persistent elevation of troponin.. Historical: - Allergies: 10/22 20:17 PENICILLINS; me1 20:17 Sulfa (Sulfonamide Antibiotics); me1 - PMHx: 20:17 CVA; diabetes mellitus ; resolved; Hypercholesterolemia; Hypertensive disorder; me1 - PSHx: 20:17 back surgery (Unknown); heart cath (Unknown); me1 - Immunization history:: Adult Immunizations up to date. - Infectious Disease History:: Denies. - Social history:: Smoking status: Patient reports the use of cigarette tobacco products, smokes one pack cigarettes per day. - Family history:: not pertinent. ROS: 10/23 03:12 Constitutional: Negative for fever, chills, and weight loss, positive for chest pain sp4 positive for generalized weakness positive for low blood pressure at home All other systems are negative, Exam: 03:18 Constitutional: This is a well developed, well nourished patient who is awake, alert, sp4 and in no acute distress. Head/Face: Normocephalic, atraumatic. Eyes: Pupils equal round and reactive to light, extra-ocular motions intact. Lids and lashes normal. Conjunctiva and sclera are not injected. Cornea within normal limits. Periorbital areas with no swelling, redness, or edema. ENT: Nares patent. No nasal discharge, no septal abnormalities noted. Tympanic membranes are normal and external auditory canals are clear. Oropharynx with no redness, swelling, or masses, exudates, or evidence of obstruction, uvula midline. Mucous membranes moist. Neck: Trachea midline, no thyromegaly or masses palpated, and no cervical lymphadenopathy. Supple, full range of motion without nuchal rigidity, or vertebral point tenderness. Chest/axilla: Normal chest wall appearance and motion. Nontender with no deformity. No lesions are appreciated. Cardiovascular: Regular rate and rhythm with a normal S1 and S2. No gallops, murmurs, or rubs. No pulse deficits. Respiratory: Lungs have equal breath sounds bilaterally, clear to auscultation and percussion. No rales, rhonchi or wheezes noted. No increased work of breathing, no retractions or nasal flaring. Abdomen/GI: Soft, with normal bowel sounds. No distension or tympany. No guarding or rebound. No evidence of tenderness throughout. Back: No spinal tenderness. No costovertebral tenderness. Skin: Warm, dry with normal turgor. Normal color with no rashes, no lesions, and no evidence of cellulitis. MS/ Extremity: Pulses equal, no cyanosis. Neurovascular intact. Full, normal range of motion. Neuro: Awake and alert, GCS 15, oriented to person, place, time, and situation. Cranial nerves II-XII grossly intact. Motor strength 5/5 in all extremities. Sensory grossly intact. Psych: Awake, alert, with orientation to person, place and time. Behavior, mood, and affect are within normal limits 03:18 ECG was reviewed by the Attending Physician. EKG 2010 normal sinus rhythm rate 81 Vital Signs: 10/22 20:15 BP 109 / 54; Pulse 80; Resp 19; Temp 97.5; Pulse Ox 100% ; Weight 66.68 kg; Height 5 me1 ft. 3 in. ; Pain 10/10; 21:35 BP 114 / 60; Pulse 67; Resp 19; Pulse Ox 100% on R/A; Pain 3/10; zm 23:08 BP 92 / 51; Pulse 74; Resp 17; Temp 97.5; Pulse Ox 100% on R/A; Pain 0/10; bm8 10/23 01:30 BP 98 / 58; Pulse 88; Resp 17; Temp 97.5; Pulse Ox 99% ; Pain 0/10; lg3 02:48 BP 124 / 61; Pulse 86; Resp 18 S; Pulse Ox 99% on R/A; lg3 03:10 BP 124 / 61; Pulse 86; Resp 18; Temp 97.5; Pulse Ox 99% ; Pain 0/10; bm8 10/22 20:15 Body Mass Index 26.04 (66.68 kg, 160.02 cm) me1 10/22 20:15 Pain Scale: Adult me1 21:35 Pain Scale: Adult zm 23:08 Pain Scale: Adult bm8 10/23 01:30 Pain Scale: Adult lg3 03:10 Pain Scale: Adult bm8 NIH Stroke Scale Scores: 03:18 NIHSS Score: 0 sp4 Isatu Coma Score: 10/22 20:43 Eye Response: spontaneous(4). Motor Response: obeys commands(6). Verbal Response: bm8 oriented(5). Total: 15. 21:35 Eye Response: spontaneous(4). Motor Response: obeys commands(6). Verbal Response: zm oriented(5). Total: 15. 23:48 Eye Response: spontaneous(4). Motor Response: obeys commands(6). Verbal Response: bm8 oriented(5). Total: 15. 10/23 01:30 Eye Response: spontaneous(4). Motor Response: obeys commands(6). Verbal Response: lg3 oriented(5). Total: 15. 03:10 Eye Response: spontaneous(4). Motor Response: obeys commands(6). Verbal Response: bm8 oriented(5). Total: 15. 03:18 Eye Response: spontaneous(4). Motor Response: obeys commands(6). Verbal Response: sp4 oriented(5). Total: 15. MDM: 10/22 19:44 Medical Screening Exam initiated sp4 22:28 ED course: CLINICAL INDICATION: Female, 58 years old.,CHEST PAIN TECHNIQUE: Frontal sp4 chest projection is submitted. Examination is limited by patient positioning and technique. COMPARISON: 12/30/2023 FINDINGS: The lungs are well inflated and clear. No pneumothorax or sizable effusion. The heart is normal in size. Mediastinal contours are unremarkable. IMPRESSION: No acute intrathoracic abnormalities. . 10/23 03:19 Differential diagnosis: acute myocardial infarction, acute pericarditis, anxiety, sp4 coronary artery disease chest wall pain, congestive heart failure esophagitis, gastritis. HEART Score: History: Moderately Suspicious (1), ECG: Non specific repolarization disturbance / LBTB / PM (1), Age: > 45 and < 65 years (1), Risk Factors: > or = 3 Risk factors for atherosclerotic disease (2), Troponin: > or = 3 x Normal Limit (2), Total Score = 7. The patient was given aspirin in the Emergency Department. Data reviewed: vital signs, nurses notes, old medical records, lab test result(s), EKG, radiologic studies, plain films. ED course: Stable for admission for elevated troponin and CHF. 10/22 19:44 Order name: Basic Metabolic Panel; Complete Time: 22:23 sp4 10/22 19:44 Order name: CBC with Diff; Complete Time: 22:23 sp4 10/22 19:44 Order name: LFT's; Complete Time: 22:23 sp4 10/22 19:44 Order name: Magnesium; Complete Time: 22:23 sp4 10/22 19:44 Order name: NT PRO-BNP; Complete Time: 22:23 sp4 10/22 19:44 Order name: PT-INR; Complete Time: 22:23 sp4 10/22 19:44 Order name: Troponin HS; Complete Time: 22:23 sp4 10/22 20:19 Order name: COVID-19 Ag + Flu A+B Ag; Complete Time: 22:23 sp4 10/22 19:44 Order name: XRAY Chest (1 view); Complete Time: 22:23 4 10/23 00:41 Order name: CT Head Brain wo Cont cp 10/22 19:44 Order name: Cardiac monitoring; Complete Time: 20:20 sp4 10/22 19:44 Order name: EKG - Nurse/Tech; Complete Time: 20:20 sp4 10/22 19:44 Order name: IV Saline Lock; Complete Time: 20:20 sp4 10/22 19:44 Order name: Labs collected and sent; Complete Time: 20:37 sp4 10/22 19:44 Order name: O2 Per Protocol; Complete Time: 20:20 sp4 10/22 19:44 Order name: O2 Sat Monitoring; Complete Time: 20:20 sp4 EC/28 20:11 Rate is 81 beats/min. Rhythm is regular, Normal Sinus Rhythm. QRS [place] is Normal. [place] sp4 interval is normal. QRS interval is normal. QT interval is normal. No Q waves. T waves are Normal. No ST changes noted. Clinical impression: No evidence of ischemia. Interpreted by me. Reviewed by me. Administered Medications: 20:48 Drug: NS 0.9% IV 1000 ml IV at 1000 ml once; to be given as a bolus over 60 minutes bm8 Route: IV; Rate: 1000 ml; Site: right forearm; 23:50 Follow up: Response: No adverse reaction; IV Status: Completed infusion bm8 20:55 Drug: diphenhydrAMINE IVP 25 mg IVP once Route: IVP; Site: right forearm; 23:49 Follow up: Response: No adverse reaction bm8 20:56 Drug: morphine IVP or IV 2 mg IVP once over 4 mins Route: IVP; Infused Over: 4 mins; zm Site: right forearm; 23:49 Follow up: Response: No adverse reaction bm8 20:56 Drug: metoCLOPramide IVP 10 mg IVP once; over 1 to 2 minutes Route: IVP; Site: right zm forearm; 23:49 Follow up: Response: No adverse reaction bm8 22:57 Drug: NS 0.9% IV 1000 ml IV at 1 bolus Per protocol; to be given as a bolus over 60 bm8 minutes Route: IV; Rate: 1 bolus; Site: right antecubital; 23:49 Follow up: Response: No adverse reaction; IV Status: Completed infusion bm8 22:57 Drug: Albumin IVPB 25 grams 100 ml IVPB once; (Note: Albumin 25% concentration) Volume: bm8 100 ml; Route: IVPB; Site: right forearm; 23:49 Follow up: Response: No adverse reaction; IV Status: Completed infusion bm8 Disposition: 10/23 03:19 Critical Care:. sp4 Disposition Summary: 10/23/24 00:28 Hospitalization Ordered Notes: Hospitalization Status: Inpatient Admission sp4 Provider: Edilberto Xiong [facility] sp4 Condition: Stable sp4 Problem: new sp4 Symptoms: have improved sp4 Bed/Room Type: Standard sp4 Room Assignment: 401(10/23/24 02:33) vc1 Diagnosis - NSTEMI, generalized weakness, hypotensive episode, near syncopal episode sp4 Forms: - Medication Reconciliation Form sp4 - SBAR form sp4 - Leadership Thank You Letter sp4 Critical care time excluding procedures: 03:19 Critical care time: Bedside Care: 36 minutes, Consultation: 12 minutes, Family sp4 Intervention: 12 minutes. Total time: 60 minutes NIH Stroke Scale - NIH Stroke Score Date: 10/23/2024 Time: 03:18 Total Score = 0 10. Dysarthria (speech clarity - read or repeat words) - 0(Normal) 11. Extinction and Inattention (visual/tactile/auditory/spatial/personal) - 0(No abnormality) 1a. Level of Consciousness (LOC) - 0(Alert) 1b. Level of Consciousness (LOC) (Month \T\ Age) - 0(Both) 1c. LOC Commands (Open \T\ Closes Eyes/Manufacturing Engineer Supervisor) - 0(Both) 2. Best Gaze (Lateral Gaze Paresis) - 0(Normal) 3. Visual Field Loss - 0(No visual loss) 4. Facial Palsy - 0(Normal) 5a. Left Arm: Motor (10-second hold) - 0(No drift) 5b. Right Arm: Motor (10-second hold) - 0(No drift) 6a. Left Leg: Motor (5-second hold - always test supine) - 0(No drift) 6b. Right Leg: Motor (5-second hold - always test supine) - 0(No drift) 7. Limb Ataxia (finger/nose \T\ heel/ron - test with eyes open) - 0(Absent) 8. Sensory Loss (pinprick arms/legs/face) - 0(Normal) 9. Best Language: Aphasia (description/naming/reading) - 0(No aphasia) Initials: sp4 Signatures: Dispatcher [employer] EDInes Whaley RN RN vc1 Linda Hernandez, RN Tonio Dobbs MD MD sp4 Herminia Ruiz RN RN me1 Rico Do, RN RN bm8 Corrections: (The following items were deleted from the chart) 10/22 19:44 19:44 BASIC METABOLIC PANEL+C.LAB.BRZ ordered. EDMS EDMS 19:44 19:44 CBC+H.LAB.BRZ ordered. EDMS EDMS 19:44 19:44 HEPATIC FUNCTION+C.LAB.BRZ ordered. EDMS EDMS 19:44 19:44 MAGNESIUM+C.LAB.BRZ ordered. EDMS EDMS 19:44 19:44 PROBNP+C.LAB.BRZ ordered. EDMS EDMS 19:44 PROTIME (+INR)+COAG.LAB.BRZ ordered. EDMS EDMS 19:44 Troponin High Sensitivity+C.LAB.BRZ ordered. EDMS EDMS : 19:45 Chest Single View+RAD.RAD.BRZ ordered. EDMS EDMS 10/23 00:43 00:43 Head Brain Wo Cont+CT.RAD.BRZ ordered. EDMS EDMS 02:33 00:28 sp4 vc1
--- NOTE | 2024-10-23 00:28 | ER ---
Nurse's Notes [facility] Name: Che Helton Age: 58 yrs Sex: Female : 1965 Arrival Date: 10/22/2024 Time: 19:32 Bed 4 Private MD: Diagnosis: NSTEMI, generalized weakness, hypotensive episode, near syncopal episode Presentation: 10/22 20:15 Chief complaint: Patient states: c/o OLSON 10/10 "pounding", Saw Dr today and bp was me1 85/56. Resting on couch yesterday and started having midsternal chest pain "tight" that radiates to left jaw and left arm 9/10 at this time. SOB at rest and on exertion. Coronavirus screen: Vaccine status: Patient reports receiving the 2nd dose of the covid vaccine. Ebola Screen: No symptoms or risks identified at this time. Initial Sepsis Screen: Does the patient meet any 2 criteria? No. Patient's initial sepsis screen is negative. Does the patient have a suspected source of infection? No. Patient's initial sepsis screen is negative. Risk Assessment: Do you want to hurt yourself or someone else? Patient reports no desire to harm self or others. Onset of symptoms was October 21, 2024. 20:15 Method Of Arrival: Wheelchair me1 20:15 Acuity: NELY 3 me1 Triage Assessment: 20:17 General: Appears in no apparent distress. uncomfortable, Behavior is calm, cooperative, me1 appropriate for age. Pain: Complains of pain in head and chest Pain radiates to left jaw Pain currently is 9 out of 10 on a pain scale. Quality of pain is described as tight Pain began 1 day ago. Is intermittent. EENT: No signs and/or symptoms were reported regarding the EENT system. Neuro: Level of Consciousness is awake, alert, obeys commands, Oriented to person, place, time, situation, Appropriate for age. Cardiovascular: Reports chest pain, lightheadedness, shortness of breath, Patient's skin is warm and dry. Rhythm is regular. Respiratory: Reports shortness of breath at rest on exertion Airway is patent Respiratory effort is even, unlabored, Respiratory pattern is regular, symmetrical. GI: No signs and/or symptoms were reported involving the gastrointestinal system. : No signs and/or symptoms were reported regarding the genitourinary system. Derm: Skin is intact, is healthy with good turgor, Skin is normal. Musculoskeletal: Circulation, motion, and sensation intact. Range of motion: intact in all extremities. Historical: - Allergies: 20:17 PENICILLINS; me1 20:17 Sulfa (Sulfonamide Antibiotics); me1 - PMHx: 20:17 CVA; diabetes mellitus ; resolved; Hypercholesterolemia; Hypertensive disorder; me1 - PSHx: 20:17 back surgery (Unknown); heart cath (Unknown); me1 - Immunization history:: Adult Immunizations up to date. - Infectious Disease History:: Denies. - Social history:: Smoking status: Patient reports the use of cigarette tobacco products, smokes one pack cigarettes per day. - Family history:: not pertinent. Screenin:43 [facility] ED Fall Risk Assessment (Adult) History of falling in the last 3 months, bm8 including since admission No falls in past 3 months (0 pts) Confusion or Disorientation No (0 pts) Intoxicated or Sedated No (0 pts) Impaired Gait No (0 pts) Mobility Assist Device Used No (0 pt) Altered Elimination No (0 pt) Score/Fall Risk Level 0 - 2 = Low Risk Oriented to surroundings, Maintained a safe environment, Educated pt \\T\\ family on fall prevention, incl call for assistance when getting out of bed, Assessed \\T\\ reinforced patient's understanding of fall precautions, Hourly rounding (assess needs \\T\\ fall precautionary measures) done, Used ambulatory aids as needed (educated on \\T\\ assisted with), Used gait belt as appropriate. Abuse screen: Denies threats or abuse. Nutritional screening: No deficits noted. Tuberculosis screening: No symptoms or risk factors identified. Assessment: 20:23 General: Appears in no apparent distress. Pain: Complains of pain in mid-sternal area zm Pain radiates to left arm Pain currently is 9 out of 10 on a pain scale. Quality of pain is described as pressure, squeezing, Pain began 1 day ago. Is intermittent. Neuro: No deficits noted. Level of Consciousness is awake, alert, obeys commands, Oriented to person, place, time, situation, Speech is normal, Facial symmetry appears normal. Cardiovascular: Reports chest pain, Patient's skin is warm and dry. Respiratory: No deficits noted. Airway is patent Respiratory effort is even, unlabored, Respiratory pattern is regular, symmetrical, 21:35 Reassessment: Patient appears in no apparent distress at this time. Patient and/or zm family updated on plan of care and expected duration. Pain level reassessed. Patient is alert, oriented x 3, equal unlabored respirations, skin warm/dry/pink. Patient states feeling better. Patient states symptoms have improved. 23:48 Reassessment: Patient appears in no apparent distress at this time. Patient and/or bm8 family updated on plan of care and expected duration. Pain level reassessed. Patient is alert, oriented x 3, equal unlabored respirations, skin warm/dry/pink. Patient denies pain at this time. Patient states feeling better. Patient states symptoms have improved. 10/23 01:29 Reassessment: Patient appears in no apparent distress at this time. No changes from bm8 previously documented assessment. Patient and/or family updated on plan of care and expected duration. Pain level reassessed. Patient is alert, oriented x 3, equal unlabored respirations, skin warm/dry/pink. Patient denies pain at this time. Patient states feeling better. Patient states symptoms have improved. 03:10 Reassessment: Patient appears in no apparent distress at this time. No changes from bm8 previously documented assessment. Patient and/or family updated on plan of care and expected duration. Pain level reassessed. Patient is alert, oriented x 3, equal unlabored respirations, skin warm/dry/pink. Patient denies pain at this time. Patient states feeling better. Patient states symptoms have improved. Vital Signs: 10/22 20:15 BP 109 / 54; Pulse 80; Resp 19; Temp 97.5; Pulse Ox 100% ; Weight 66.68 kg; Height 5 me1 ft. 3 in. ; Pain 10/10; 21:35 BP 114 / 60; Pulse 67; Resp 19; Pulse Ox 100% on R/A; Pain 3/10; zm 23:08 BP 92 / 51; Pulse 74; Resp 17; Temp 97.5; Pulse Ox 100% on R/A; Pain 0/10; bm8 10/23 01:30 BP 98 / 58; Pulse 88; Resp 17; Temp 97.5; Pulse Ox 99% ; Pain 0/10; lg3 02:48 BP 124 / 61; Pulse 86; Resp 18 S; Pulse Ox 99% on R/A; lg3 03:10 BP 124 / 61; Pulse 86; Resp 18; Temp 97.5; Pulse Ox 99% ; Pain 0/10; bm8 10/22 20:15 Body Mass Index 26.04 (66.68 kg, 160.02 cm) me1 10/22 20:15 Pain Scale: Adult me1 21:35 Pain Scale: Adult zm 23:08 Pain Scale: Adult bm8 10/23 01:30 Pain Scale: Adult lg3 03:10 Pain Scale: Adult bm8 Isatu Coma Score: 10/22 20:43 Eye Response: spontaneous(4). Motor Response: obeys commands(6). Verbal Response: bm8 oriented(5). Total: 15. 21:35 Eye Response: spontaneous(4). Motor Response: obeys commands(6). Verbal Response: zm oriented(5). Total: 15. 23:48 Eye Response: spontaneous(4). Motor Response: obeys commands(6). Verbal Response: bm8 oriented(5). Total: 15. 10/23 01:30 Eye Response: spontaneous(4). Motor Response: obeys commands(6). Verbal Response: lg3 oriented(5). Total: 15. 03:10 Eye Response: spontaneous(4). Motor Response: obeys commands(6). Verbal Response: bm8 oriented(5). Total: 15. 03:18 Eye Response: spontaneous(4). Motor Response: obeys commands(6). Verbal Response: sp4 oriented(5). Total: 15. NIH Stroke Scale Scores: 03:18 NIHSS Score: 0 sp4 ED Course: 10/22 19:39 Patient arrived in ED. jj6 19:44 Tonio Seay MD is Attending Physician. sp4 20:17 Triage completed. me1 20:17 Arm band placed on Patient placed in an exam room. me1 20:20 Arm band placed on right wrist. zm 20:22 Client placed on continuous cardiac and pulse oximetry monitoring. NIBP monitoring me1 applied. shelter monitor on. Pulse ox on. NIBP on. 20:22 EKG done, by ED staff, reviewed by Tonio Seay MD. me1 20:33 XRAY Chest (1 view) In Process Unspecified. EDMS 20:37 Rico Do, RN is Primary Nurse. bm8 20:43 Patient has correct armband on for positive identification. Placed in gown. Bed in low bm8 position. Call light in reach. Adult w/ patient. Door closed. Noise minimized. Warm blanket given. Pillow given. 20:43 No provider procedures requiring assistance completed. Inserted saline lock: 22 gauge bm8 in right forearm, using aseptic technique. Flushed with 10 mL NS. 20:46 Inserted saline lock: 20 gauge in right antecubital area, using aseptic technique. bm8 Blood collected. Flushed with 10 mL NS. 20:47 Patient maintains SpO2 saturation greater than 95% on room air. bm8 10/23 00:28 Edilberto Xiong MD is Hospitalizing Provider. sp4 01:14 CT Head Brain wo Cont In Process Unspecified. EDMS 03:10 Provided Education on: need for admission. bm8 03:10 Patient admitted, IV remains in place. bm8 Administered Medications: 10/22 20:48 Drug: NS 0.9% IV 1000 ml IV at 1000 ml once; to be given as a bolus over 60 minutes bm8 Route: IV; Rate: 1000 ml; Site: right forearm; 23:50 Follow up: Response: No adverse reaction; IV Status: Completed infusion bm8 20:55 Drug: diphenhydrAMINE IVP 25 mg IVP once Route: IVP; Site: right forearm; zm 23:49 Follow up: Response: No adverse reaction bm8 20:56 Drug: morphine IVP or IV 2 mg IVP once over 4 mins Route: IVP; Infused Over: 4 mins; zm Site: right forearm; 23:49 Follow up: Response: No adverse reaction bm8 20:56 Drug: metoCLOPramide IVP 10 mg IVP once; over 1 to 2 minutes Route: IVP; Site: right zm forearm; 23:49 Follow up: Response: No adverse reaction bm8 22:57 Drug: NS 0.9% IV 1000 ml IV at 1 bolus Per protocol; to be given as a bolus over 60 bm8 minutes Route: IV; Rate: 1 bolus; Site: right antecubital; 23:49 Follow up: Response: No adverse reaction; IV Status: Completed infusion bm8 22:57 Drug: Albumin IVPB 25 grams 100 ml IVPB once; (Note: Albumin 25% concentration) Volume: bm8 100 ml; Route: IVPB; Site: right forearm; 23:49 Follow up: Response: No adverse reaction; IV Status: Completed infusion bm8 Medication: 20:43 VIS not applicable for this client. bm8 Outcome: 10/23 00:28 Decision to Hospitalize by Provider. sp4 03:52 Admitted to Tele accompanied by tech, via wheelchair, room 401, bm8 03:52 Condition: stable 03:52 Instructed on the need for admit, Demonstrated understanding of instructions, follow-up care, medications, 03:53 Patient left the ED. bm8 NIH Stroke Scale - NIH Stroke Score Date: 10/23/2024 Time: 03:18 Total Score = 0 10. Dysarthria (speech clarity - read or repeat words) - 0(Normal) 11. Extinction and Inattention (visual/tactile/auditory/spatial/personal) - 0(No abnormality) 1a. Level of Consciousness (LOC) - 0(Alert) 1b. Level of Consciousness (LOC) (Month \\T\\ Age) - 0(Both) 1c. LOC Commands (Open \\T\\ Closes Eyes/Duct Layer Supervisor) - 0(Both) 2. Best Gaze (Lateral Gaze Paresis) - 0(Normal) 3. Visual Field Loss - 0(No visual loss) 4. Facial Palsy - 0(Normal) 5a. Left Arm: Motor (10-second hold) - 0(No drift) 5b. Right Arm: Motor (10-second hold) - 0(No drift) 6a. Left Leg: Motor (5-second hold - always test supine) - 0(No drift) 6b. Right Leg: Motor (5-second hold - always test supine) - 0(No drift) 7. Limb Ataxia (finger/nose \\T\\ heel/ron - test with eyes open) - 0(Absent) 8. Sensory Loss (pinprick arms/legs/face) - 0(Normal) 9. Best Language: Aphasia (description/naming/reading) - 0(No aphasia) Initials: sp4 Signatures: Dispatcher [employer] Maisha Day RN RN lg3 Hope Ludwig jj6 Linda Hernandez RN RN Tonio Galvan MD MD sp4 Herminia Ruiz RN RN me1 Rico Do RN RN bm8 Corrections: (The following items were deleted from the chart) 10/22 23:48 23:08 BP 92 / 51; Pulse 74bpm; Resp 17bpm; Pulse Ox 100% RA; zm bm8
--- NOTE | 2024-10-23 02:14 | RAD REPORT ---
CLINICAL HISTORY: Headache. COMPARISON: CT Head and cervical spine 12/16/2023. TECHNIQUE: CT HEAD WITHOUT IV CONTRAST on 10/23/2024 12:41 AM CDT This exam was performed according to our departmental dose-optimization program, which includes autom ated exposure control, adjustment of the mA and/or kV according to patient size and/or use of iterative reconstruction technique. FINDINGS: There is no acute hemorrhage, mass effect or midline shift. Shi-white differentiation is preserved. There is no hydrocephalus. There is no significant volume loss for age. The calvarium is intact. Orbits and globes are unremarkable. The paranasal sinuses are clear. Mastoid air cells are clear. IMPRESSION: No acute intracranial findings. Electronically signed by: Hermelindo Kelly MD 10/23/2024 02:11 AM CDT Due to temporary technical issues with the PACS/OOYYO reporting system, reports are being lee ann d by the in-house radiologist without review as a courtesy to ensure prompt reporting the interpreting radiologist is fully responsible for the content of the report. Transcribed Date/Time: 10/23/2024 2:14 AM
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
[2024-10-23] MEDS ORDERED: NITROGLYCERIN 0.4 MG/TAB SL PRN (02:30)
[2024-10-23] MEDS: MORPHINE 4 MG/ML SYR IV PRN (04:41)
[2024-10-23 05:51] VITALS: BMI 26.0
[2024-10-23 06:06] LABS: Absolute Lymphocytes (CBC) 2.6 K/uL (0.7-4.9); Hematocrit 27.7 % (36.0-45.0); Hemoglobin 9.3 g/dL (12.0-15.0); MCH 30.1 pg (27.0-35.0); MCHC 33.4 g/dL (32.0-36.0); MCV 90.0 fL (80-100); MPV 8.6 fL (7.6-11.3); Nucleated RBC Absolute Count 0.0 (0-0); Nucleated Red Blood Cells % 0.0 % (0-0); RBC Red Blood Cell Count 3.08 M/uL (3.86-4.86); White Blood Count 5.30 thou/uL (4.3-10.9)
[2024-10-23 06:14] LABS: Anion Gap 6.9 mEq/L (5.0-15.0); BUN Blood Urea Nitrogen 19.0 mg/dL (7-18); Glucose Level 96.0 mg/dL (74-106); Potassium 3.9 mEq/L (3.5-5.1)
[2024-10-23] MEDS: APIXABAN 5 MG TABLET PO SCH (08:18)
[2024-10-23] MEDS: POTASSIUM CL SA 10 MEQ TAB PO ONE (09:52)
[2024-10-23] MEDS: ACETAMINOPHEN 325 MG TABLET PO PRN (09:52)
[2024-10-23 12:22] VITALS: BP 106/52; TEMP 98.1
[2024-10-23 13:45] VITALS: O2SAT 98
--- NOTE | 2024-10-23 14:41 | P.DS ---
Admission Date: 10/23/24 Discharge Date: 10/23/24 Disposition: ROUTINE DISCHARGE Discharge Condition: GOOD Reason for Admission: Chest pain. 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 Patient states she started having the chest pain earlier part of yesterday, and also complained of low blood pressure, she describes the chest pain as tight, and pressure type of a pain, with no associated shortness of breath. States she also has some dizziness associated with the chest pain. Patient states her initial pain intensity is a 9/10. Patient states she has been having intense frontal headache for the past 1 week. When inquired if she has any history of migraine headache she refuses at this time. Patient initial troponin 114.1. Patient EKG with no ST elevation. According to report received from ER practitioner, states contacted shuttle hand, requested patient be admitted, will see patient in morning. Hospital Course: Che was admitted and evaluated for chest pain. Che was seen on morning rounds, chest pain evaluated finding it's reproducible and intermittent. Dr. Nicole has been consulted and cleared her for discharge with a follow-up visit to her shuttle hand for a stress test. Troponins trended flat, echocardiogram performed with results pending, and vital signs stable. Headache was treated effectively with tylenol. She is being discharged home with family support and to continue home medications as prescribed. Physical Exam General: Alert and oriented, NAD HEENT: Atraumatic, Normocephalic Neck: Supple, 2+ carotid pulse no bruit Respiratory: Clear BBS, normal air movement, on room air Cardiovascular: Normal pulses, NSR, Normal S1 S2, No gallops, No rubs, No murmurs Gastrointestinal: Normal bowel sounds, nontender on palpation Musculoskeletal: No clubbing Integumentary: No rashes, No breakdown Neurological: Normal speech, Normal tone Vital Signs/Physical Exam: Temp Pulse Resp BP Pulse Ox 98.1 F 64 16 106/52 L 99 10/23/24 12:00 10/23/24 12:00 10/23/24 12:00 10/23/24 12:00 10/23/24 12:00 Laboratory Data at Discharge: WBC 5.30 thou/uL (4.3-10.9) 10/23/24 05:46 Hgb 9.3 g/dL (12.0-15.0) L D 10/23/24 05:46 Hct 27.7 % (36.0-45.0) L 10/23/24 05:46 Plt Count 191 thou/uL (152-406) 10/23/24 05:46 PT 13.9 SECONDS (10-13.0) H 10/22/24 20:31 INR 1.24 10/22/24 20:31 Sodium 145 mEq/L (136-145) 10/23/24 05:46 Potassium 3.9 mEq/L (3.5-5.1) 10/23/24 05:46 BUN 19 mg/dL (7-18) H 10/23/24 05:46 Creatinine 1.51 mg/dL (0.55-1.02) H 10/23/24 05:46 Glucose 96 mg/dL (74-106) 10/23/24 05:46 Magnesium 2.4 mg/dL (1.6-2.4) 10/22/24 20:31 Total Bilirubin 0.2 mg/dL (0.2-1.0) 10/22/24 20:31 AST 11 U/L (15-37) L 10/22/24 20:31 ALT < 14 U/L (13-56) 10/22/24 20:31 Alkaline Phosphatase 46 U/L (45-117) 10/22/24 20:31 Home Medications: Apixaban [Eliquis *] 2 tab PO BID 03/23/23 Duloxetine HCl [Cymbalta] 60 mg PO BEDTIME 03/23/23 Ergocalciferol (Vitamin D2) [Vitamin D2] 1 cap PO SEECOM 03/23/23 Linaclotide [Linzess] 1 cap PO DAILY 03/23/23 Semaglutide [Ozempic] 2 mg SQ SEECOM 03/23/23 Topiramate 50 mg PO BID 03/23/23 Atorvastatin Calcium [Lipitor] 40 mg PO BEDTIME 90 Days #90 tab 03/25/23 ALPRAZolam [Xanax*] 1 mg PO BEDTIME PRN 10/09/23 Allopurinol 100 mg PO DAILY 10/09/23 Colchicine [Colcrys *] 0.6 mg PO DAILY 10/09/23 Ezetimibe [Zetia*] 10 mg PO DAILY 10/09/23 Fenofibrate [Lipofen] 54 mg PO DAILY 10/09/23 Finerenone [Kerendia] 20 mg PO DAILY 10/09/23 Hydrocodone Bit/Acetaminophen [Hydrocodon-Acetaminoph 7.5-325] 7.5 mg PO TID 10/09/23 Apixaban [Eliquis] 5 mg PO BID 10/23/24 Atorvastatin Calcium [Lipitor] 40 mg PO BEDTIME tab 10/23/24 Duloxetine HCl 30 mg PO DAILY 10/23/24 Gabapentin 300 mg PO BID 10/23/24 Losartan/Hydrochlorothiazide [Losartan-Hctz 50-12.5 mg Tab] 1 each PO DAILY 10/23/24 Physician Discharge Instructions: 1. Please call and schedule a follow-up appointment with your PCP in 3-5 days - Please follow-up with your PCP for medication refills/adjustments 2. Please call and schedule a follow-up appointment with your shuttle hand or Dr. Nicole in 1 week -You will need an outpatient stress test with your shuttle hand -If you are in need of cardiology care please call Dr. Nicole's office 3. Continue heart healthy diet 4. activity restrictions fall risk 5. Return to the ED if symptoms worsen Continue home medications as prescribed by your providers. Diet: AHA Activity: Fall precautions Followup: Orlando Bates MD [Primary Care Provider] - (follow up in 3-5 days) Uli Nicole MD [ACTIVE - CAN ADMIT] - 1 Week (schedule an appointment)
[2024-10-23] MEDS: ACETAMINOPHEN 500 MG TAB PO ONE (15:08)
--- NOTE | 2024-10-23 19:06 | CON ---
Date of Consultation: 10/23/2024 Reason For Consultation: Elevated troponin. History Of Present Illness: This is a 58-year-old female. She has a chronic leak of troponin and as such she would get admitted with a chest pain, so we did a heart catheterization on her in April, and it was entirely normal. She comes in this time with the same symptoms. Denies having any mary [place] sea, vomiting, diarrhea or any significant shortness of breath. Past Medical History: Obesity, but she is losing weight nicely, hypertension, diabetes, smoker. Medications: Refer reconciliation sheet for detailed list. Allergies: PENICILLIN, SULFA, FENTANYL. Family History: No mature coronary artery disease or cancer. Social History: She is an active smoker, does not drink or use any drugs. Review of Systems: All systems reviewed are negative except as mentioned in HPI. Physical Examination: Vital Signs: Reviewed. Head and Neck: Pupils are equal, reactive to light. Intact eye movements. No JVD. No cervical lym phadenopathy. Neck: Supple. Thyroid is not enlarged. Lungs: Clear to auscultation bilaterally. No rhonchi, wheezing, or crackles. No accessory muscle u se. Heart: Regular rate and rhythm. No extra sounds. Abdomen: Soft, nontender. Bowel sounds positive. No organomegaly. No masses or hernia. No rigidi ty or rebound. Extremities: No edema, clubbing, cyanosis. Intact pulses. Skin: No rash. No nodules. Neuro: Alert, awake, oriented x3. No acute focal deficits appreciated. Investigations: Troponin 112 and 121, BUN 19, creatinine 1.5, and hemoglobin is 9.3. Assessment/recommendation: 1. Chest pain with elevated troponin. This patient always has chronic elevation of troponin and she was hospitalized multiple times in the past and we did a coronary angiogram in April 2021, was entire ly normal heart catheterization. It is unlikely that this is acute coronary syndrome. This is likel y noncardiac and she follows up with a subgrade roller operator in [place]. Recommend that she can be released once her symptoms are controlled and to follow up with her primary subgrade roller operator for a stress test as an outpatient. 2. Acute on chronic renal failure, mild with improvement, with gentle hydration. 3. Elevated troponin. She has chronic elevation of troponin, but no coronary artery disease as per h eart catheterization in 2021. 4. Dyslipidemia, on atorvastatin, to continue. SR/MODL Voice ID: [id number] Report ID: [id number]
[2024-10-23] MEDS ORDERED: ATORVASTATIN 40 MG TAB PO SCH (21:00)
== END 2024-10-23 15:33 | disposition home or self-care (01) ==
LOC: ER 19:32 → 4TH 10-23 02:21
PROVIDERS: ADMIT Hospitalist; ATTEND Hospitalist
DX: R07.9 Chest pain, unspecified (principal); R51.9 Headache, unspecified; E11.9 Type 2 diabetes mellitus without complications; E78.5 Hyperlipidemia, unspecified; I10 Essential (primary) hypertension; E78.00 Pure hypercholesterolemia, unspecified; R79.89 Other specified abnormal findings of blood chemistry; F17.210 Nicotine dependence, cigarettes, uncomplicated; N17.9 Acute kidney failure, unspecified; R53.1 Weakness; I95.9 Hypotension, unspecified; R55 Syncope and collapse; I25.2 Old myocardial infarction; Z88.0 Allergy status to penicillin; Z88.2 Allergy status to sulfonamides; Z88.8 Allergy status to other drugs, medicaments and biological substances; Z86.73 Personal history of transient ischemic attack (TIA), and cerebral infarction without residual deficits; Z86.711 Personal history of pulmonary embolism; Z51.12 Encounter for antineoplastic immunotherapy
CPT/HCPCS: 96365; 96361; 93005 ×2; 93306; 85025 ×2; 80048 ×2; 36415; 83735; 85610; 82947 ×2; 80076; 84484 ×3; 83880; 70450; 71045; 96375; 99285; 87428; J2765; J1200; J2270; P9047; J7030 ×2